=== PATIENT | male | born 1980 | race African-American/Black ===

== ENCOUNTER 2016-12-29 19:25 | Emergency (ER) | payer OTHER ==
[~2016-12-29 19:25] MED LIST: /HALO2TA OR; BENZ5TA PO; COGE1INJ PO; DEPA500T2 OR; DEPA500T2 PO; DEPAKOTE PO; HALDOL DECANOATE IM; HALO10TA4 OR; HALO1TAB29 PO; HALO5TA PO; INVE234I IM; KLON2TAB PO; NEOSSOL TOP; PRIL20CA OR; QUET5TAB PO; RISP3TAB18 PO; SERO1TAB PO; SERO200T OR; TRAZ10TA PO; TRAZ150T OR; TRAZ150T14 PO; TRAZ50TA OR; TRAZ50TA4 PO; cogentin PO; hydroxyzine PO
--- NOTE | 2016-12-29 20:58 | EDDOCDS ---
Physician Documentation [facility] Name: Gabo Bull Age: 36 yrs Sex: Male : 1980 Arrival Date: 12/29/2016 Time: 19:25 Bed TR8 Private MD: NO PRIMARY PHYSICIAN, . Disposition: 12/29/16 20:43 Discharged to Home/Self Care. Impression: Other microscopic hematuria, Constipation. - Condition is Stable. - Discharge Instructions: Constipation, Adult, Hematuria, Adult. - Prescriptions for Colace 100 mg Oral Tablet - take 1 tablet by ORAL route every 12 hours; 14 tablet. Miralax 17 gram/dose - take 17 gram by ORAL route once daily As needed dilute in 8 ounces of water or juice; 1 bottle. - Medication Reconciliation, Local Pharmacy Hours form. - [facility]; When: Call to arrange an appointment; Reason: Recheck today's complaints, Continuance of care. Follow up: [facility]; When: Call to arrange an appointment; Reason: Recheck today's complaints, Continuance of care. - Problem is new. - Symptoms are unchanged. Historical: - Allergies: No known drug Allergies; - Home Meds: 1. benztropine 50 mg (pt states he is unsure but thinks it's 50 mg) Oral 2. trazodone 50 mg Oral tab 1 tab once a day 3. Clonazepam Oral Unknown once a day - PMHx: Schizophrenia; - PSHx: none; - Social history: Smoking status: Patient uses tobacco products, current every day smoker. No barriers to communication noted, The patient speaks fluent Latvian, Speaks appropriately for age, Preferred Language: Latvian. - Family history: Not pertinent. - : The pt / caregiver states he / she is not on anticoagulants. Home medication list is obtained from the patient, Unable to Verify Home Med List with the patient / caregiver. - Exposure Risk Screening:: None identified. Vital Signs: 12/29 19:26 BP 120 / 72; Pulse 96; Resp 16; Temp 97.6(O); Pulse Ox 100% on R/A; Weight 74.84 kg / lr2 164.99 lbs (R); Height 5 ft. 9 in. (175.26 cm) (R); Pain 4/10; 19:26 Body Mass Index 24.37 (74.84 kg, 175.26 cm) lr2 MDM: 19:39 UA Ordered. EDMS 20:24 UA Reviewed. mo1 20:27 GC & Chlamydia Amplification Ordered. EDMS 20:52 Financial registration complete. sharyn Signatures: Dispatcher [employer] EDMing Tatum, RN RN cz Sadie Salinas RN RN lf1 Bam Ordoñez PA PA mo1 Jannet Cisneros MTDD
--- NOTE | 2016-12-29 20:58 | EDDOCDS ---
Nurse's Notes [facility] Name: Gabo Bull Age: 36 yrs Sex: Male : 1980 Arrival Date: 12/29/2016 Time: 19:25 Bed TR8 Private MD: NO PRIMARY PHYSICIAN, . Diagnosis: Other microscopic hematuria;Constipation Presentation: 12/29 19:29 Presenting complaint: Patient states: Pt reports hematuria for 2-3 days with lf1 constipation and bloody stool. Denies pain or other symptoms at this time. Risk factors: the patient reports not having a history of previous torsion. Adult Sepsis Screening: The patient does not have new or worsening altered mentation. Patient's respiratory rate is less than 22. Systolic blood pressure is greater than 100. Patient has a qSOFA score of 0- Negative Sepsis Screen. Suicide/Homicide risk assessment- the patient denies having any suicidal and/or homicidal ideations and does not present with any other emotional, behavioral or mental health complaints. Status: Patient is not a security services manager or dependent. Transition of care: patient was not received from another setting of care. 19:29 Acuity: ARCADIO Level 3 lf1 19:29 Method Of Arrival: Walkin/Carried/Asstd lf1 Triage Assessment: 19:34 General: Appears in no apparent distress, comfortable, Behavior is cooperative. Pain: lf1 Denies pain. HIV screening NA for this visit Offered previously. Neurological: Level of Consciousness is awake, alert, Oriented to person, place, time, Speech is normal. EENT: No deficits noted. Cardiovascular: Chest pain is denied. Respiratory: Respiratory effort is even, unlabored. GI: Reports constipation, bloody stool. : Reports hematuria. Derm: Skin is intact. Injury Description: No known injury. Historical: - Allergies: No known drug Allergies; - Home Meds: 1. benztropine 50 mg (pt states he is unsure but thinks it's 50 mg) Oral 2. trazodone 50 mg Oral tab 1 tab once a day 3. Clonazepam Oral Unknown once a day - PMHx: Schizophrenia; - PSHx: none; - Social history: Smoking status: Patient uses tobacco products, current every day smoker. No barriers to communication noted, The patient speaks fluent Guinean, Speaks appropriately for age, Preferred Language: Guinean. - Family history: Not pertinent. - : The pt / caregiver states he / she is not on anticoagulants. Home medication list is obtained from the patient, Unable to Verify Home Med List with the patient / caregiver. - Exposure Risk Screening:: None identified. Screenin:35 Screening information is obtained from the patient. Fall risk: No risks identified. lf1 Assistance ADL's: requires no assistance with activities of daily living. Abuse/DV Screen: The patient / caregiver reports he/she is: in a living situation that causes fear, pain or injury. Nutritional screening: No deficits noted. Advance Directives: Currently, there is no health care proxy. home support is adequate. Assessment: 20:55 Reassessment: Patient appears in no apparent distress at this time. General: alert male cz with bowel issues. Vital Signs: 19:26 BP 120 / 72; Pulse 96; Resp 16; Temp 97.6(O); Pulse Ox 100% on R/A; Weight 74.84 kg lr2 (R); Height 5 ft. 9 in. (175.26 cm) (R); Pain 4/10; 19:26 Body Mass Index 24.37 (74.84 kg, 175.26 cm) lr2 Vitals: 19:26 Log In Time: December 29, 2016 at 19:25. lr2 ED Course: 19:26 Patient visited by Triny Mercer. lr2 19:26 Patient moved to Waiting lr2 19:28 NO PRIMARY PHYSICIAN, . is Private Physician. lr2 19:28 Patient moved to Pre RCE lr2 19:30 Triage Initiated lf1 19:54 UA Sent. ar3 19:55 Patient visited by Gerda Patel PCA. ar3 20:01 Patient moved to Triage 2 ar3 20:08 Bam Ordoñez PA is PHCP. mo1 20:08 Grayson Del Cid DO is Attending Physician. mo1 20:15 Patient visited by Bam Ordoñez PA. mo1 20:43 [facility] is Referral Physician. mo1 20:43 Charbel Sepulveda is Referral Physician. mo1 20:51 Patient moved to TR2 cz 20:53 GC & Chlamydia Amplification Sent. ar3 20:54 Patient moved to TR8 ar3 20:55 The patient / caregiver is instructed regarding the plan of care and ED course. cz 20:55 No IV's were initiated during this patient's visit. No procedures done that require cz assistance. Order Results: Lab Order: UA; SPEC'M 12/29/16 19:55 Test: APPEARANCE, URINE; Value: CLEAR; Range: CLEAR; Status: F Test: COLOR, URINE; Value: YELLOW; Range: YELLOW; Status: F Test: PH,URINE; Value: 7.0; Range: 5.0-9.0; Units: UNITS; Status: F Test: SPECIFIC GRAVITY URINE AUTO; Value: 1.021; Range: 1.002-1.035; Status: F Test: PROTEIN, URINE AUTO; Value: NEGATIVE; Range: NEGATIVE; Units: mg/dL; Status: F Test: GLUCOSE, URINE (UA) AUTO; Value: NEGATIVE; Range: NEGATIVE; Units: mg/dL; Status: F Test: KETONE, URINE AUTO; Value: NEGATIVE; Range: NEGATIVE; Units: mg/dL; Status: F Test: UROBILINOGEN, URINE AUTO; Value: 2.0; Range: 0.0-2.0; Abnormal: Above high normal; Units: mg/dL; Status: F Test: BILIRUBIN, URINE AUTO; Value: NEGATIVE; Range: NEGATIVE; Status: F Test: NITRITE, URINE AUTO; Value: NEGATIVE; Range: NEGATIVE; Status: F Test: LEUKOCYTE ESTERASE, URINE AUTO; Value: NEGATIVE; Range: NEGATIVE; Status: F Test: BLOOD, URINE BLOOD; Value: NEGATIVE; Range: NEGATIVE; Status: F Test: WBC, URINE AUTO; Value: 0; Range: 0-3; Units: /HPF; Status: F Test: RBC, URINE AUTO; Value: 1; Range: 0-3; Units: /HPF; Status: F Test: BACTERIA, URINE AUTO; Value: 1+; Range: NEGATIVE; Abnormal: Above high normal; Status: F Test: SQUAMOUS EPITHELIAL CELL UR AU; Value: 0; Range: 0-6; Units: /HPF; Status: F Test: MUCUS, URINE; Value: SMALL; Range: NEGATIVE; Status: F Test: HYALINE CAST, URINE AUTO; Value: 0; Range: 0-1; Units: /LPF; Status: F Test: AMORPHOUS SEDIMENT; Value: SMALL; Range: NEGATIVE; Abnormal: Above high normal; Status: F Outcome: 20:43 Discharge ordered by Provider. mo1 20:55 Discharge Assessment: patient administered narcotics - no. The following High Risk cz Discharge criteria are identified: None. Discharged to home ambulatory. Condition: good. No special radiology studies were completed. Property :Personal belongings accompany Pt. 20:57 Patient left the ED. Signatures: Ming De Jesus, RN RN cz Sadie Salinas RN RN lf1 Gerda Patel, JOHN CHROME POLISHER ar3 Bam Ordoñez PA PA mo1 Triny Mercer2 MTDD
--- NOTE | 2016-12-31 21:58 | EDDOCDS ---
Physician Documentation [facility] Name: Gabo Bull Age: 36 yrs Sex: Male : 1980 Arrival Date: 12/29/2016 Time: 19:25 Bed TR8 Private MD: NO PRIMARY PHYSICIAN, . Disposition: 12/29/16 20:43 Discharged to Home/Self Care. Impression: Other microscopic hematuria, Constipation. - Condition is Stable. - Discharge Instructions: Constipation, Adult, Hematuria, Adult. - Prescriptions for Colace 100 mg Oral Tablet - take 1 tablet by ORAL route every 12 hours; 14 tablet. Miralax 17 gram/dose - take 17 gram by ORAL route once daily As needed dilute in 8 ounces of water or juice; 1 bottle. - Medication Reconciliation, Local Pharmacy Hours form. - [facility]; When: Call to arrange an appointment; Reason: Recheck today's complaints, Continuance of care. Follow up: [facility]; When: Call to arrange an appointment; Reason: Recheck today's complaints, Continuance of care. - Problem is new. - Symptoms are unchanged. Historical: - Allergies: No known drug Allergies; - Home Meds: 1. benztropine 50 mg (pt states he is unsure but thinks it's 50 mg) Oral 2. trazodone 50 mg Oral tab 1 tab once a day 3. Clonazepam Oral Unknown once a day - PMHx: Schizophrenia; - PSHx: none; - Social history: Smoking status: Patient uses tobacco products, current every day smoker. No barriers to communication noted, The patient speaks fluent Welsh, Speaks appropriately for age, Preferred Language: Welsh. - Family history: Not pertinent. - : The pt / caregiver states he / she is not on anticoagulants. Home medication list is obtained from the patient, Unable to Verify Home Med List with the patient / caregiver. - Exposure Risk Screening:: None identified. Vital Signs: 12/29 19:26 BP 120 / 72; Pulse 96; Resp 16; Temp 97.6(O); Pulse Ox 100% on R/A; Weight 74.84 kg / lr2 164.99 lbs (R); Height 5 ft. 9 in. (175.26 cm) (R); Pain 4/10; 19:26 Body Mass Index 24.37 (74.84 kg, 175.26 cm) lr2 MDM: 19:39 UA Ordered. EDMS 20:24 UA Reviewed. mo1 20:27 GC & Chlamydia Amplification Ordered. EDMS 20:52 Financial registration complete. gjb 20:59 [facility] Payment Agreement was scanned into [employer] and attached to record. sharyn Signatures: Dispatcher [employer] EDMing Tatum, CONNOR RN cz Sadie Salinas RN RN lf1 Bam Ordoñez PA PA mo1 Jannet Cisneros The chart was reviewed and I authenticate all verbal orders and agree with the evaluation and treatment provided.Attachments: 20:59 [facility] [place] gjb Chart Complete MTDD
--- NOTE | 2016-12-31 21:58 | EDDOCDS ---
Physician Documentation [facility] Name: Gabo Bull Age: 36 yrs Sex: Male : 1980 Arrival Date: 12/29/2016 Time: 19:25 Bed TR8 Private MD: NO PRIMARY PHYSICIAN, . Disposition: 12/29/16 20:43 Discharged to Home/Self Care. Impression: Other microscopic hematuria, Constipation. - Condition is Stable. - Discharge Instructions: Constipation, Adult, Hematuria, Adult. - Prescriptions for Colace 100 mg Oral Tablet - take 1 tablet by ORAL route every 12 hours; 14 tablet. Miralax 17 gram/dose - take 17 gram by ORAL route once daily As needed dilute in 8 ounces of water or juice; 1 bottle. - Medication Reconciliation, Local Pharmacy Hours form. - [facility]; When: Call to arrange an appointment; Reason: Recheck today's complaints, Continuance of care. Follow up: [facility]; When: Call to arrange an appointment; Reason: Recheck today's complaints, Continuance of care. - Problem is new. - Symptoms are unchanged. Historical: - Allergies: No known drug Allergies; - Home Meds: 1. benztropine 50 mg (pt states he is unsure but thinks it's 50 mg) Oral 2. trazodone 50 mg Oral tab 1 tab once a day 3. Clonazepam Oral Unknown once a day - PMHx: Schizophrenia; - PSHx: none; - Social history: Smoking status: Patient uses tobacco products, current every day smoker. No barriers to communication noted, The patient speaks fluent French, Speaks appropriately for age, Preferred Language: French. - Family history: Not pertinent. - : The pt / caregiver states he / she is not on anticoagulants. Home medication list is obtained from the patient, Unable to Verify Home Med List with the patient / caregiver. - Exposure Risk Screening:: None identified. Vital Signs: 12/29 19:26 BP 120 / 72; Pulse 96; Resp 16; Temp 97.6(O); Pulse Ox 100% on R/A; Weight 74.84 kg / lr2 164.99 lbs (R); Height 5 ft. 9 in. (175.26 cm) (R); Pain 4/10; 19:26 Body Mass Index 24.37 (74.84 kg, 175.26 cm) lr2 MDM: 19:39 UA Ordered. EDMS 20:24 UA Reviewed. mo1 20:27 GC & Chlamydia Amplification Ordered. EDMS 20:52 Financial registration complete. gjb 20:59 [facility] Payment Agreement was scanned into [employer] and attached to record. sharyn Signatures: Dispatcher [employer] EDMing Tatum, CONNOR RN cz Sadie Salinas RN RN lf1 Bam Ordoñez PA PA mo1 Jannet Cisneros The chart was reviewed and I authenticate all verbal orders and agree with the evaluation and treatment provided.Attachments: 20:59 [facility] [place] gjb Chart Complete MTDD
--- NOTE | 2016-12-31 21:58 | EDDOCDS ---
Nurse's Notes [facility] Name: Gabo Bull Age: 36 yrs Sex: Male : 1980 Arrival Date: 12/29/2016 Time: 19:25 Bed TR8 Private MD: NO PRIMARY PHYSICIAN, . Diagnosis: Other microscopic hematuria;Constipation Presentation: 12/29 19:29 Presenting complaint: Patient states: Pt reports hematuria for 2-3 days with lf1 constipation and bloody stool. Denies pain or other symptoms at this time. Risk factors: the patient reports not having a history of previous torsion. Adult Sepsis Screening: The patient does not have new or worsening altered mentation. Patient's respiratory rate is less than 22. Systolic blood pressure is greater than 100. Patient has a qSOFA score of 0- Negative Sepsis Screen. Suicide/Homicide risk assessment- the patient denies having any suicidal and/or homicidal ideations and does not present with any other emotional, behavioral or mental health complaints. Status: Patient is not a hydraulic press servicer or dependent. Transition of care: patient was not received from another setting of care. 19:29 Acuity: ARCADIO Level 3 lf1 19:29 Method Of Arrival: Walkin/Carried/Asstd lf1 Triage Assessment: 19:34 General: Appears in no apparent distress, comfortable, Behavior is cooperative. Pain: lf1 Denies pain. HIV screening NA for this visit Offered previously. Neurological: Level of Consciousness is awake, alert, Oriented to person, place, time, Speech is normal. EENT: No deficits noted. Cardiovascular: Chest pain is denied. Respiratory: Respiratory effort is even, unlabored. GI: Reports constipation, bloody stool. : Reports hematuria. Derm: Skin is intact. Injury Description: No known injury. Historical: - Allergies: No known drug Allergies; - Home Meds: 1. benztropine 50 mg (pt states he is unsure but thinks it's 50 mg) Oral 2. trazodone 50 mg Oral tab 1 tab once a day 3. Clonazepam Oral Unknown once a day - PMHx: Schizophrenia; - PSHx: none; - Social history: Smoking status: Patient uses tobacco products, current every day smoker. No barriers to communication noted, The patient speaks fluent Spanish, Speaks appropriately for age, Preferred Language: Spanish. - Family history: Not pertinent. - : The pt / caregiver states he / she is not on anticoagulants. Home medication list is obtained from the patient, Unable to Verify Home Med List with the patient / caregiver. - Exposure Risk Screening:: None identified. Screenin:35 Screening information is obtained from the patient. Fall risk: No risks identified. lf1 Assistance ADL's: requires no assistance with activities of daily living. Abuse/DV Screen: The patient / caregiver reports he/she is: in a living situation that causes fear, pain or injury. Nutritional screening: No deficits noted. Advance Directives: Currently, there is no health care proxy. home support is adequate. Assessment: 20:55 Reassessment: Patient appears in no apparent distress at this time. General: alert male cz with bowel issues. Vital Signs: 19:26 BP 120 / 72; Pulse 96; Resp 16; Temp 97.6(O); Pulse Ox 100% on R/A; Weight 74.84 kg lr2 (R); Height 5 ft. 9 in. (175.26 cm) (R); Pain 4/10; 19:26 Body Mass Index 24.37 (74.84 kg, 175.26 cm) lr2 Vitals: 19:26 Log In Time: December 29, 2016 at 19:25. lr2 ED Course: 19:26 Patient visited by Triny Mercer. lr2 19:26 Patient moved to Waiting lr2 19:28 NO PRIMARY PHYSICIAN, . is Private Physician. lr2 19:28 Patient moved to Pre RCE lr2 19:30 Triage Initiated lf1 19:54 UA Sent. ar3 19:55 Patient visited by Gerda Patel PCA. ar3 20:01 Patient moved to Triage 2 ar3 20:08 Bam Ordoñez PA is PHCP. mo1 20:08 Grayson Del Cid DO is Attending Physician. mo1 20:15 Patient visited by Bam Ordoñez PA. mo1 20:43 [facility] is Referral Physician. mo1 20:43 Charbel Sepulveda is Referral Physician. mo1 20:51 Patient moved to TR2 cz 20:53 GC & Chlamydia Amplification Sent. ar3 20:54 Patient moved to TR8 ar3 20:55 The patient / caregiver is instructed regarding the plan of care and ED course. cz 20:55 No IV's were initiated during this patient's visit. No procedures done that require cz assistance. 20:59 [facility] [place] Payment Agreement was scanned into [employer] and attached to record. gjb Order Results: Lab Order: UA; SPEC'M 12/29/16 19:55 Test: APPEARANCE, URINE; Value: CLEAR; Range: CLEAR; Status: F Test: COLOR, URINE; Value: YELLOW; Range: YELLOW; Status: F Test: PH,URINE; Value: 7.0; Range: 5.0-9.0; Units: UNITS; Status: F Test: SPECIFIC GRAVITY URINE AUTO; Value: 1.021; Range: 1.002-1.035; Status: F Test: PROTEIN, URINE AUTO; Value: NEGATIVE; Range: NEGATIVE; Units: mg/dL; Status: F Test: GLUCOSE, URINE (UA) AUTO; Value: NEGATIVE; Range: NEGATIVE; Units: mg/dL; Status: F Test: KETONE, URINE AUTO; Value: NEGATIVE; Range: NEGATIVE; Units: mg/dL; Status: F Test: UROBILINOGEN, URINE AUTO; Value: 2.0; Range: 0.0-2.0; Abnormal: Above high normal; Units: mg/dL; Status: F Test: BILIRUBIN, URINE AUTO; Value: NEGATIVE; Range: NEGATIVE; Status: F Test: NITRITE, URINE AUTO; Value: NEGATIVE; Range: NEGATIVE; Status: F Test: LEUKOCYTE ESTERASE, URINE AUTO; Value: NEGATIVE; Range: NEGATIVE; Status: F Test: BLOOD, URINE BLOOD; Value: NEGATIVE; Range: NEGATIVE; Status: F Test: WBC, URINE AUTO; Value: 0; Range: 0-3; Units: /HPF; Status: F Test: RBC, URINE AUTO; Value: 1; Range: 0-3; Units: /HPF; Status: F Test: BACTERIA, URINE AUTO; Value: 1+; Range: NEGATIVE; Abnormal: Above high normal; Status: F Test: SQUAMOUS EPITHELIAL CELL UR AU; Value: 0; Range: 0-6; Units: /HPF; Status: F Test: MUCUS, URINE; Value: SMALL; Range: NEGATIVE; Status: F Test: HYALINE CAST, URINE AUTO; Value: 0; Range: 0-1; Units: /LPF; Status: F Test: AMORPHOUS SEDIMENT; Value: SMALL; Range: NEGATIVE; Abnormal: Above high normal; Status: F Lab Order: GC & Chlamydia Amplification; SPEC'M 12/29/16 19:55 Test: CHLAMYDIA DNA AMPLIFICATION; Value: NEGATIVE; Range: NEGATIVE; Status: F Test: GC DNA AMPLIFICATION; Value: NEGATIVE; Range: NEGATIVE; Status: F Outcome: 20:43 Discharge ordered by Provider. mo1 20:55 Discharge Assessment: patient administered narcotics - no. The following High Risk cz Discharge criteria are identified: None. Discharged to home ambulatory. Condition: good. No special radiology studies were completed. Property :Personal belongings accompany Pt. 20:57 Patient left the ED. cz Signatures: Ming De Jesus, RN RN cz Sadie SalinasRN RN lf1 Gerda Patel, CERTIFIED HISTOLOGIC TECHNICIAN CERTIFIED HISTOLOGIC TECHNICIAN ar3 Bam Ordoñez PA PA mo1 Jannet Cisneros Laura lr2 Chart Complete FOSTER
== END 2016-12-29 20:57 | disposition home or self-care (01) ==
LOC: M ED 19:25
DX: R31.29 Other microscopic hematuria (principal); K59.00 Constipation, unspecified; F20.9 Schizophrenia, unspecified; F17.210 Nicotine dependence, cigarettes, uncomplicated; Z79.899 Other long term (current) drug therapy

== ENCOUNTER 2017-01-10 07:34 | Inpatient (IN) | payer OTHER ==
[~2017-01-10] VITALS: Ht 175.3 cm; Wt 74.3 kg
[2017-01-10] MEDS: UNRESOLVED CLARIFICATION ENTRY XX SCH (00:01)
[2017-01-10] MEDS ORDERED: INVE234I IM (07:47)
[2017-01-10] MEDS ORDERED: BENZ5TA PO (07:47)
[2017-01-10] MEDS ORDERED: GABA300C3 PO (07:47)
[2017-01-10 08:49] LABS: MEAN CORPUSCULAR HEMOGLOBIN 29.4 pg (27.0-33.0); MEAN CORPUSCULAR HGB CONC 32.7 g/dl (32.0-36.5); MEAN CORPUSCULAR VOLUME 90.1 fl (80.0-96.0); RED CELL DISTRIBUTION WIDTH 12.9 % (11.5-14.5); WHITE BLOOD COUNT 8.8 K/mm3 (4.0-10.0)
[2017-01-10] MEDS: NICOTINE 21MG/24HR 1 EA TRANSDERMAL TD SCH (09:00)
[2017-01-10 09:04] LABS: METHADONE URINE NEGATIVE (NEGATIVE)
[2017-01-10 09:14] LABS: ALBUMIN 3.8 GM/DL (3.2-5.2); ALBUMIN/GLOBULIN RATIO 1.06 (1.00-1.93); ALKALINE PHOSPHATASE 65 U/L (45-117); ALT/SGPT 23 U/L (12-78); ANION GAP 9 MEQ/L (8-16); AST/SGOT 25 U/L (15-37); BILIRUBIN,DIRECT < 0.1 MG/DL (0.0-0.2); BILIRUBIN,TOTAL 0.3 MG/DL (0.2-1.0); BLOOD UREA NITROGEN 11 MG/DL (7-18); CALCIUM LEVEL 8.8 MG/DL (8.5-10.1); CARBON DIOXIDE LEVEL 26 MEQ/L (21-32); CHLORIDE LEVEL 109 MEQ/L (98-107); CREATININE FOR GFR 1.07 MG/DL (0.70-1.30); GLOMERULAR FILTRATION RATE > 60.0 (>60); GLUCOSE, FASTING 79 MG/DL (70-105); POTASSIUM SERUM 4.1 MEQ/L (3.5-5.1); SODIUM LEVEL 144 MEQ/L (136-145); TOTAL PROTEIN 7.4 GM/DL (6.4-8.2)
[2017-01-10] MEDS ORDERED: MIRA33504 PO (10:50)
[2017-01-10] MEDS ORDERED: TRAZ150T14 PO (10:50)
[2017-01-10 12:40] VITALS: BP 114/88
[2017-01-10] MEDS ORDERED: MAALOX 30 ML SUSP *UDC PO PRN (14:15)
[2017-01-10] MEDS ORDERED: traZODone 50 MG TAB PO PRN (14:15)
[2017-01-10] MEDS ORDERED: MIRALAX *UNIT DOSE* 17GM PACKET PO PRN (14:15)
[2017-01-10] MEDS ORDERED: LORazepam 1 MG TAB PO PRN (14:15)
[2017-01-10 18:00] VITALS: BP 124/75
[2017-01-11] MEDS: UNRESOLVED CLARIFICATION ENTRY XX SCH (00:01)
[2017-01-11] MEDS: NICOTINE 21MG/24HR 1 EA TRANSDERMAL TD SCH (08:45)
[2017-01-11 18:00] VITALS: BP 114/69
[2017-01-11] MEDS ORDERED: risperiDONE 1 MG TAB PO PRN (19:45)
[2017-01-11] MEDS ORDERED: risperiDONE 2 MG TAB PO ONE (21:00)
[2017-01-12] MEDS: UNRESOLVED CLARIFICATION ENTRY XX SCH (00:01)
[2017-01-12] MEDS: NICOTINE 21MG/24HR 1 EA TRANSDERMAL TD SCH (08:49)
[2017-01-12] MEDS ORDERED: INFLUENZA QUADRIVALENT PF VACCINE 0.5ML SYRINGE/VIAL (90686) IM ONE (09:00)
--- NOTE | 2017-01-12 17:26 | IPNPDOC ---
[facility] Progress Note Progress Note DATE OF SERVICE: 01/12/17 HISTORY: The patient met with Martha's room. He described that he was concerned about the shot of vague as he felt as though this would "lower his bone marrow" after some empathic listening and attempts to reason the patient he described that he was amenable to continuing the medicine. He stated that he was plagued by auditory hallucinations and had difficulty feeling comfortable around others. He had been no stay be in the milieu walking around but was generally isolative otherwise. The nursing staff and social worker masters is noted that the patient had a fairly filthy room over the weekend and had various pieces of food and copy strewn about. However with prompting he did clean his room and demonstrated better hygiene concerns for this patient had been long and chronic, as he has demonstrated severe paranoid ideation the past with violent outbursts. The patient has had difficulty with maintaining compliance with outpatient regimens and suffers from his paranoid ideations and outpatient is social supports have been drained away from him and he finds himself with little support as an outpatient. VITAL SIGNS: See below. NEW TEST RESULTS: None. CURRENT MEDICATIONS: See below. MENTAL STATUS EXAMINATION: Patient is a 36-year old male, who is pleasant with poor to fair hygiene, whom is tall and slender. Speech: Is normal in rate volume and articulation, however the patient only speaks when spoken to. Language skills are intact Thought processes including: Goal directed Thought content: Illogical at times. Abstract reasoning, and computation: Impaired, primarily concrete thinking. Description of associations: Loose. Description of abnormal or psychotic thoughts: Endorses auditory hallucinations and bizarre ideation that his bone marrow will be usurped if he continues use the medications. He does not overtly answer whether he has any suicidal or homicidal ideation but makes no threats towards himself or others on the mitchell Judgment: Very limited. Insight: Very limited Orientation to time, place and person Recent and remote memory: 88, short-term and long-term memory appears generally intact Attention span and concentration: Poor Language: Normal Fund of knowledge: Adequate. Mood: "Just fine sir". Affect: Flat. DIAGNOSES: 1. Unspecified psychosis History of schizoaffective disorder. ASSESSMENT: A 36-year-old man with a history of schizophrenia versus schizoaffective disorder who presents with psychosis after noncompliance with his medicines. He has been resistant to taking his in vague three-month shot. However, he appears amenable at this time to taking. He is due within 2 weeks of having his 819 mg Depo shot. MANAGEMENT PLAN: 1 continue when necessary risperidone 2. Will attempt to give patient Depo paliperidone tomorrow if he is still amenable 3. Patient will require if further inpatient stay to address his disabling psychosis. He is currently disabled state limits himself to being a danger to himself and others. He has a history of violent outbursts and is in a state in which he would be unable to care for himself and likely pose a danger to himself in the community TIME SPENT: 15 minutes. Vital Signs Vital Signs Date Time Temp Pulse Resp B/P Pulse Ox O2 Delivery O2 Flow Rate FiO2 01/11/17 18:00 96.3 89 18 114/69 01/10/17 12:40 97 01/10/17 12:40 Room Air Current Medications Current Medications Acetaminophen (Tylenol Tab) 650 mg Q6HP PRN PO HEADACHE or DISCOMFORT; Start at 14:15; Stop 02/09/17 at 14:14 Al Hydrox/Mg Hydrox/Simethicone (Mylanta) 30 ml Q4HP PRN PO HEARTBURN/ INDIGESTION; Start 01/10/17 at 14:15; Stop 02/09/17 at 14:14 Home Med (Med Rec Complete!) ASDIRECTED XX ; Start 01/10/17 at 11:00; Stop 09/18 at 11:00; Status DC Lorazepam (Ativan) 1 mg Q4HP PRN PO ANXIETY/AGITATION; Start 01/10/17 at 14:15 ; Stop 01/17/17 at 14:14 Miscellaneous (Unresolved Clarification Entry) SEE LABEL COMMENTS UNRESOLVED XX ; Start 01/10/17 at 00:01; Stop 02/09/17 at 00:00 Nicotine (Nicoderm Cq 21mg) 1 patch DAILY TD Last administered on 01/12/17t 08: 49; Start 01/10/17 at 09:00; Stop 02/09/17 at 08:59 Polyethylene Glycol (Miralax) 1 pkt DAILYPRN PRN PO CONSTIPATION; Start at 14:15; Stop 02/09/17 at 14:14 Risperidone (RisperDAL) 1 mg Q4HP PRN PO ANXIETY/AGITATION; Start 01/11/17 at 19:45; Stop 02/10/17 at 19:44 Trazodone HCl (Desyrel) 150 mg QHSP PRN PO INSOMNIA; Start 01/10/17 at 14:15; Stop 02/09/17 at 14:14 Allergies Coded Allergies: PERFUMES (Verified Allergy, Unknown, 01/10/17) GME ATTESTATION My preceptor for this patient encounter was fully available. As needed, all aspects of the patient interview, examination, medical decision making process, and medical care plan development were reviewed and approved by the preceptor. Preceptor is aware and concurs with the plan as stated in the body of this note and will attest to such by his/her cosignature. RENEE MARTINES DO Jan 12, 2017 17:26
[2017-01-12 18:00] VITALS: BP 113/61
--- NOTE | 2017-01-12 22:12 | HPE ---
DATE OF ADMISSION: 01/10/2017 Please refer to psychiatric history and evaluation for further details on this admission. This examination and history are intended for medical issues, which may need treatment, followup, or consult on this 36-year-old male. ALLERGIES: No known drug allergies. He is allergic to perfumes. PAST MEDICAL HISTORY: 1. Schizophrenia. 2. Substance abuse. PAST SURGICAL HISTORY: None. SOCIAL HISTORY: He is single. He is unemployed. He drinks about six drinks every Thursday. Illicit drug use: He is currently using marijuana and occasionally smoking crack cocaine. 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 He states he has not had those two drugs since September 2006. FAMILY HISTORY: Noncontributory. HOME MEDICATIONS: - Cogentin 0.5 mg by mouth twice a day - gabapentin 300 mg by mouth three times a day - Invega Sustenna 234 mg/1.5 mL by injection - MiraLax 17 grams by mouth daily as needed for constipation - trazodone 100 mg by mouth at bedtime LABORATORY STUDIES: CBC was normal. Sodium 144, potassium 4.1, chloride 109, CO2 of 26, BUN 11, creatinine 1.07. Urine was positive for cannabinoids. A 10-systems review was done. Patient was unremarkable. Patient had no complaints. PHYSICAL EXAMINATION: A 36-year-old cooperative male in no acute distress. Height 69 inches, weight 70.3 kg. Blood pressure 114/88, pulse 83, respirations 20, temperature 96. Patient is alert and oriented times three. Pupils equal and reactive to light. Extraocular movements (EOMs) intact. Cornea and sclerae are clear. Conjunctivae were normal. No facial asymmetry. Pharynx, tongue, and gums pink and moist. Tongue is midline. Neck is supple without lymphadenopathy. No thyromegaly. No goiter. Chest clear to auscultation without wheeze or retraction. Heart is regular. Abdomen benign. Bowel sounds positive. Genitourinary/rectal not done. Extremities show equal strength, full range of motion. No cyanosis, clubbing, or edema. Peripheral pulses equal and palpable bilaterally. Skin is warm and dry. IMPRESSION AND PLAN: Psychiatric plan per psychiatric. EKG is on file, sinus rhythm. Rate is 77. Done 02/05/2016. No acute medical issues.
[2017-01-13] MEDS: UNRESOLVED CLARIFICATION ENTRY XX SCH (00:01)
[2017-01-13 06:00] VITALS: BP 123/76
[2017-01-13] MEDS: NICOTINE 21MG/24HR 1 EA TRANSDERMAL TD SCH (08:44)
--- NOTE | 2017-01-13 17:15 | IPNPDOC ---
[facility] Progress Note Progress Note DATE OF SERVICE: 01/13/17 HISTORY: The patient met with. He describes that he is amenable to taking the intake three-month depot shot. He remains somewhat bizarre and reclusive to his room. He is observed during the process group to come in and out of the room shuffling papers. He has been noted to be drawn for quite some time and various geometric designs. The nursing staff continue to note that he is somewhat bizarre though generally pleasant. He hasn't had any episodes of aggression or agitation overnight. VITAL SIGNS: See below. NEW TEST RESULTS: None. CURRENT MEDICATIONS: See below. MENTAL STATUS EXAMINATION: Patient is a 36-year old male, who is pleasant cooperative and generally well kempt,. Speech: Is normal in rate and volume but appears to be generally minimal in production. Language skills are intact. Thought processes including: Impoverished. Thought content: illogical. Abstract reasoning, and computation: Impaired. Description of associations: Loose. Description of abnormal or psychotic thoughts: Does not appear to be overtly responding to internal stimuli. Judgment: Limited. Insight: Limited. Orientation to time place and person. Recent and remote memory: Immediate, short-term and long-term memory appears grossly intact. Attention span and concentration: Good. Language: Normal. Fund of knowledge: poor Mood: "Fine". Affect: Flat. DIAGNOSES: 1. Unspecified psychosis. 2. . 3. . ASSESSMENT: A 36-year-old man with a long history of schizophrenia versus schizoaffective disorder presents in a psychotic state. He has had difficulty with outpatient treatment compliance. He last received his Invega depot shot in October 2015 he would be currently due for a repeat depot shot at the end of this month. Reportedly his dose of an paliperidone 3 month Depo is 819 mg MANAGEMENT PLAN: 1. Continue when necessary risperidone 2. Will call and confirm patient's three-month Depo shot dosage and then repeat dosages patient is currently amenable 3. Patient will continue to need inpatient stay in order to address his severely disabling psychosis. He currently poses a danger to himself due to his gravely disabled state. TIME SPENT: 10 minutes. Vital Signs Vital Signs Date Time Temp Pulse Resp B/P Pulse Ox O2 Delivery O2 Flow Rate FiO2 01/13/17 06:00 96.8 108 16 123/76 01/10/17 12:40 97 01/10/17 12:40 Room Air Current Medications Current Medications Acetaminophen (Tylenol Tab) 650 mg Q6HP PRN PO HEADACHE or DISCOMFORT; Start at 14:15; Stop 02/09/17 at 14:14 Al Hydrox/Mg Hydrox/Simethicone (Mylanta) 30 ml Q4HP PRN PO HEARTBURN/ INDIGESTION; Start 01/10/17 at 14:15; Stop 02/09/17 at 14:14 Home Med (Med Rec Complete!) ASDIRECTED XX ; Start 01/10/17 at 11:00; Stop 09/18 at 11:00; Status DC Lorazepam (Ativan) 1 mg Q4HP PRN PO ANXIETY/AGITATION; Start 01/10/17 at 14:15 ; Stop 01/17/17 at 14:14 Miscellaneous (Unresolved Clarification Entry) SEE LABEL COMMENTS UNRESOLVED XX ; Start 01/10/17 at 00:01; Stop 02/09/17 at 00:00 Nicotine (Nicoderm Cq 21mg) 1 patch DAILY TD Last administered on 01/13/17t 08: 44; Start 01/10/17 at 09:00; Stop 02/09/17 at 08:59 Polyethylene Glycol (Miralax) 1 pkt DAILYPRN PRN PO CONSTIPATION; Start at 14:15; Stop 02/09/17 at 14:14 Risperidone (RisperDAL) 1 mg Q4HP PRN PO ANXIETY/AGITATION Last administered on 01/13/17t 08:45; Start 01/11/17 at 19:45; Stop 02/10/17 at 19:44 Trazodone HCl (Desyrel) 150 mg QHSP PRN PO INSOMNIA; Start 01/10/17 at 14:15; Stop 02/09/17 at 14:14 Allergies Coded Allergies: PERFUMES (Verified Allergy, Unknown, 01/10/17) GME ATTESTATION My preceptor for this patient encounter was fully available. As needed, all aspects of the patient interview, examination, medical decision making process, and medical care plan development were reviewed and approved by the preceptor. Preceptor is aware and concurs with the plan as stated in the body of this note and will attest to such by his/her cosignature. RENEE MARITNES DO Jan 13, 2017 17:14
[2017-01-13 18:00] VITALS: BP 109/64
[2017-01-14 06:00] VITALS: BP 137/71
[2017-01-14] MEDS: NICOTINE 21MG/24HR 1 EA TRANSDERMAL TD SCH (08:44)
[2017-01-14] MEDS: ACETAMINOPHEN TAB 650MG DOSE (2X325MG) PO PRN ×2 (11:11→19:49)
[2017-01-14] MEDS ORDERED: NON-FORMULARY 1 EA EA IM ONE (15:30)
[2017-01-14 18:00] VITALS: BP 111/61
--- NOTE | 2017-01-14 22:00 | IPNPDOC ---
[facility] Progress Note Progress Note DATE OF SERVICE: 01/14/17 HISTORY: The patient is met with today in his room. He appears to be more interactive and bright. He has been socializing with other peers well on the mitchell and improved greatly from his paranoid and somewhat violent state he reportedly presented in. The patient stated that he was feeling better and was focused on drawing and interacting with others. He is due for his invega trinza, however, it is not formulary here. However, due to the great efforts of he was able to have an appointment arranged for tomorrow to have it given at the [facility] he attends (whom have been giving it to him as an outpatient). He otherwise had no issues overnight. VITAL SIGNS: See below. NEW TEST RESULTS: none CURRENT MEDICATIONS: See below. MENTAL STATUS EXAMINATION: Patient is a 36-year old male, who is pleasant, cooperative, well kempt. Speech: Is normal in rate, volume, and articulation, and is coherent and spontaneous. Language skills are intact. Thought processes including: goal-directed Thought content: coherent . Abstract reasoning, and computation: intact. Description of associations: loose Description of abnormal or psychotic thoughts: denies any SI, HI, AH or VH. Doesn't appear to be responding to internal stimuli. Judgment: limited Insight: limited Orientation to time, place and person. Recent and remote memory: Immediate, short-term and long-term memory is intact. Attention span and concentration: good Language: Normal. Fund of knowledge: poor Mood:"great". Affect: euthymic and constricted DIAGNOSES: 1. Unspecified psychosis 2. History of schizophrenia ASSESSMENT: 36 year old man with a history of non-adherence to medicines and appointments for treatment of schizophrenia, presented in a paranoid and aggressive state has stabilized with some risperidone after he got his last three-month shot of invega trinza in oct 2015. He appears to be improving and at reported baseline. MANAGEMENT PLAN: 1.PRN risperidone 2. Discharge tomorrow to get depo from providers at [facility] TIME SPENT: 15 minutes. Vital Signs Vital Signs Date Time Temp Pulse Resp B/P Pulse Ox O2 Delivery O2 Flow Rate FiO2 01/14/17 18:00 97.8 85 16 111/61 01/10/17 12:40 97 01/10/17 12:40 Room Air Current Medications Current Medications Acetaminophen (Tylenol Tab) 650 mg Q6HP PRN PO HEADACHE or DISCOMFORT Last administered on 01/14/17 19:49; Start 01/10/17 at 14:15; Stop 02/09/17 at 14:14 Al Hydrox/Mg Hydrox/Simethicone (Mylanta) 30 ml Q4HP PRN PO HEARTBURN/ INDIGESTION; Start 01/10/17 at 14:15; Stop 02/09/17 at 14:14 Home Med (Med Rec Complete!) ASDIRECTED XX ; Start 01/10/17 at 11:00; Stop 09/18 at 11:00; Status DC Lorazepam (Ativan) 1 mg Q4HP PRN PO ANXIETY/AGITATION; Start 01/10/17 at 14:15 ; Stop 01/17/17 at 14:14 Miscellaneous (Unresolved Clarification Entry) SEE LABEL COMMENTS UNRESOLVED XX ; Start 01/10/17 at 00:01; Stop 01/13/17 at 23:20; Status DC Nicotine (Nicoderm Cq 21mg) 1 patch DAILY TD Last administered on 01/14/17 08: 44; Start 01/10/17 at 09:00; Stop 02/09/17 at 08:59 Polyethylene Glycol (Miralax) 1 pkt DAILYPRN PRN PO CONSTIPATION; Start at 14:15; Stop 02/09/17 at 14:14 Risperidone (RisperDAL) 1 mg Q4HP PRN PO ANXIETY/AGITATION Last administered on 01/13/17 08:45; Start 01/11/17 at 19:45; Stop 02/10/17 at 19:44 Trazodone HCl (Desyrel) 150 mg QHSP PRN PO INSOMNIA; Start 01/10/17 at 14:15; Stop 02/09/17 at 14:14 Allergies Coded Allergies: PERFUMES (Verified Allergy, Unknown, 01/10/17) GME ATTESTATION My preceptor for this patient encounter was fully available. As needed, all aspects of the patient interview, examination, medical decision making process, and medical care plan development were reviewed and approved by the preceptor. Preceptor is aware and concurs with the plan as stated in the body of this note and will attest to such by his/her cosignature. RENEE MARTINES DO Jan 14, 2017 22:00
[2017-01-15] MEDS: NICOTINE 21MG/24HR 1 EA TRANSDERMAL TD SCH (08:20)
[2017-01-15] MEDS ORDERED: NICO21PAT TD (08:59)
[2017-01-15] MEDS ORDERED: ATIV1TAB7 PO ×3 (09:40→10:00)
[2017-01-15] MEDS ORDERED: RISP1TAB41 PO (09:40)
[2017-01-15] MEDS ORDERED: INVE1.75 IM (10:38)
--- NOTE | 2017-01-16 07:08 | DS.PDOC ---
[facility] Discharge Summary Discharge Summary DATE OF ADMISSION: Jan 10, 2017 at 10:24 DATE OF DISCHARGE: Jan 15, 2017 at 11:45 DISCHARGE DIAGNOSES: 1. Unspecified psychosis. 2. History of schizophrenia versus schizoaffective disorder. 3. Paranoia. REASON FOR ADMISSION: The patient was admitted due to increased paranoia and aggressive behavior. He presented voluntarily for treatment. He had a difficult experience being compliant with outpatient psychotropic medications and had recently received a Invega trinza October 2015. CONSULTANTS INVOLVED: None TREATMENT AND PROGRESS ON THE UNIT : The patient was admitted to the unit and started on risperidone as this was believed to augment his Invega Depo shot. He improved somewhat over the span of his admission. Eventually his risperidone was changed to a when necessary medication with when necessary Ativan for agitation. He eventually became more stable as he approached his due date for his next paliperidone Depo. He was noted to be fairly social and milieu by the end of his discharge. He was bright and euthymic without any episodes of paranoia or agitation. He was noted to ask for case management services just after his discharge. Due to his strain so support system there was no family meeting as the patient has few supports in the community. Difficulty planning for the patient's Depo shot was not available on formulary. Arrangements were made with his outpatient community clinic to give him his next Depo before his due in 2 weeks. The patient was amenable to this and agreed to follow-up. DISCHARGE ASSESSMENT: 36-year-old man with a long history of schizophrenia versus schizoaffective disorder who presents in a paranoid and psychotic state. He has had questionable compliance throughout his treatment and is primarily subsisted on a 3 month episode of paliperidone. He improved greatly with a small augmentation of risperidone orally while on the mitchell. This could reflect suboptimal serum levels and consideration could be made for an increased dose of paliperidone as an outpatient. His compliance with oral medications historically has been very poor. MENTAL STATUS EXAMINATION ON DISCHARGE: Patient is a 36-year old male, who is pleasant, cooperative a good hygiene,. Speech is spontaneous and fluid. Language skills are intact. Thought processes including: Linear and logical. Thought content: Future oriented towards returning home to mother. Abstract reasoning, and computation: Intact. Description of associations: Intact Description of abnormal or psychotic thoughts: Denies any suicidal, homicidal ideation. Denies any auditory or visual hallucinations. Does not appear to be responding to internal stimuli. Does not endorse any bizarre or paranoid ideation.. Judgment: Limited but at baseline. Insight: Limited but at baseline. Orientation to alert and oriented 3. Recent and remote memory: Grossly intact. Attention span and concentration: Good. Language: Normal. Fund of knowledge: Adequate. Mood: "Much better sir". Affect: Euthymic with a full range, perhaps slightly elevated. MEDICATIONS ON DISCHARGE: -Risperidone when necessary for agitation and paranoia. -Ativan when necessary for agitation. -Paliperidone Depo (trinza) for psychosis. PLAN/FOLLOWUP ARRANGEMENTS: The patient was discharged to an appointment with his community clinic. They agreed to give the patient his Depo paliperidone assumes they're able to. The patient agreed to follow up with his appointments regularly. The amount of time spent in the coordination of care for this patient was approximately 30 minutes. Medications Scheduled (Invega Trinza) 819 Mg/2.625 Ml Inj 819 MG IM Q3M antipsychotic (Reported) Benztropine Mesylate (Benztropine Mesylate) 0.5 Mg Tab 1 TAB PO BID (Reported) Gabapentin (Gabapentin) 300 Mg Cap 1 CAP PO TID (Reported) Nicotine (Nicotine Transdermal Syst) 21 Mg/24 Hr Dis #14 1 PATCH TD DAILY SMOKING CESSATION Scheduled PRN Lorazepam (Ativan) 1 Mg Tab #28 1 MG PO Q4HP PRN PRN ANXIETY/AGITATION Polyethylene Glycol (Miralax) 1 Pow Pow 17 GM PO DAILY PRN PRN CONSTIPATION ( Reported) Risperidone (Risperdal) 1 Mg Tab #28 1 MG PO Q4HP PRN PRN ANXIETY/AGITATION Trazodone HCl (Trazodone HCl) 150 Mg Tab 150 MG PO QHS PRN PRN SLEEP (Reported) Allergies Coded Allergies: PERFUMES (Verified Allergy, Unknown, 01/10/17) GME ATTESTATION My preceptor for this patient encounter was fully available. As needed, all aspects of the patient interview, examination, medical decision making process, and medical care plan development were reviewed and approved by the preceptor. Preceptor is aware and concurs with the plan as stated in the body of this note and will attest to such by his/her cosignature. RENEE MARTINES DO Jan 16, 2017 07:08
== END 2017-01-15 11:45 | disposition home or self-care (01) | DRG 751 ==
LOC: M ED 08:29 → M ED INP 10:24 → M PSY 12:50
PROVIDERS: ADMIT Internal Medicine Addiction Medicine; ATTEND Internal Medicine Addiction Medicine
DX: F29 Unspecified psychosis not due to a substance or known physiological condition (principal); F20.9 Schizophrenia, unspecified; F22 Delusional disorders; Z91.14 Patient's other noncompliance with medication regimen; Z79.899 Other long term (current) drug therapy; Z91.09 Other allergy status, other than to drugs and biological substances; Z72.0 Tobacco use

== ENCOUNTER 2017-03-27 15:27 | Emergency (ER) | payer OTHER ==
[~2017-03-27] VITALS: Ht 175.3 cm; Wt 74.8 kg
[~2017-03-27 15:27] MED LIST changes: +ATIV1TAB7 PO; +GABA-282 PO; +INVE1.75 IM; +MIRA33504 PO; +NICO21PAT TD; +RISP1TAB41 PO
[2017-03-27 15:28] VITALS: BP 109/70
== END 2017-03-27 16:38 | disposition home or self-care (01) ==
LOC: M ED 16:04
DX: Z76.0 Encounter for issue of repeat prescription (principal); I10 Essential (primary) hypertension; J45.909 Unspecified asthma, uncomplicated; R56.9 Unspecified convulsions; F29 Unspecified psychosis not due to a substance or known physiological condition; F22 Delusional disorders; F20.9 Schizophrenia, unspecified; Z79.899 Other long term (current) drug therapy; Z91.048 Other nonmedicinal substance allergy status

== ENCOUNTER 2017-06-14 08:33 | Emergency (ER) | payer OTHER ==
[~2017-06-14] VITALS: Ht 175.3 cm; Wt 75.3 kg
[~2017-06-14 08:33] MED LIST changes: +BENZ0.5T PO; -BENZ5TA PO; -RISP1TAB41 PO; +RISP1TAB42 PO; -RISP3TAB18 PO; +RISP3TAB20 PO; -TRAZ150T14 PO; +TRAZ1TAB14 PO; +TRAZ50TA11 PO; -TRAZ50TA4 PO
[2017-06-14] MEDS ORDERED: HALD5INJ2 IM (08:41)
[2017-06-14] MEDS ORDERED: SERO50TA PO (08:41)
[2017-06-14] MEDS ORDERED: INVE156I IM (08:41)
[2017-06-14] MEDS ORDERED: HALO20TA PO (08:41)
[2017-06-14 09:29] LABS: MEAN CORPUSCULAR HEMOGLOBIN 30.1 pg (27.0-33.0); RED CELL DISTRIBUTION WIDTH 13.1 % (11.5-14.5)
[2017-06-14 09:50] LABS: METHADONE URINE NEGATIVE (NEGATIVE)
[2017-06-14 09:59] LABS: ALBUMIN 3.5 GM/DL (3.2-5.2); ALBUMIN/GLOBULIN RATIO 1.03 (1.00-1.93); ALKALINE PHOSPHATASE 52 U/L (45-117); ALT/SGPT 23 U/L (12-78); ANION GAP 7 MEQ/L (8-16); AST/SGOT 24 U/L (15-37); BILIRUBIN,DIRECT 0.1 MG/DL (0.0-0.2); BILIRUBIN,TOTAL 0.5 MG/DL (0.2-1.0); BLOOD UREA NITROGEN 15 MG/DL (7-18); CALCIUM LEVEL 8.7 MG/DL (8.5-10.1); CARBON DIOXIDE LEVEL 28 MEQ/L (21-32); CHLORIDE LEVEL 107 MEQ/L (98-107); CREATININE FOR GFR 0.97 MG/DL (0.70-1.30); GLOMERULAR FILTRATION RATE > 60.0 (>60); GLUCOSE, FASTING 79 MG/DL (70-105); POTASSIUM SERUM 4.3 MEQ/L (3.5-5.1); SODIUM LEVEL 142 MEQ/L (136-145); TOTAL PROTEIN 6.9 GM/DL (6.4-8.2)
[2017-06-14] MEDS ORDERED: OXAZEPAM 15 MG CAP PO ONE ×2 (12:30→16:15)
--- NOTE | 2017-06-14 13:31 | ECGEPIP ---
Stationary ECG Study [facility] - ED Test Date: 2017-06-14 Pat Name: SHRAVAN PARRA Department: Room: - Gender: M Splunk Developer: TORIE : 1980 Requested By: Tanja Pringle Order Number: [id number] Reading MD: Tanja Pringle Measurements Intervals [place] Rate: 64 P: 17 VT: 131 QRS: 67 QRSD: 89 T: 48 QT: 386 QTc: 399 Interpretive Statements SINUS RHYTHM DECREASED RATE 02/04/16 Electronically Signed On 06-14-2017 13:31:03 EDT by Tanja Pringle
[2017-06-14 20:06] VITALS: BP 116/75
== END 2017-06-14 20:16 ==
LOC: M ED 08:33
DX: R45.851 Suicidal ideations (principal); F20.0 Paranoid schizophrenia; F19.10 Other psychoactive substance abuse, uncomplicated; Z91.5 Personal history of self-harm; J45.909 Unspecified asthma, uncomplicated; Z79.899 Other long term (current) drug therapy; Z91.89 Other specified personal risk factors, not elsewhere classified

== ENCOUNTER 2017-10-12 07:33 | Inpatient (IN) | payer MEDICAID, OTHER ==
[~2017-10-12] VITALS: Ht 175.3 cm; Wt 69.0 kg
[~2017-10-12 07:33] MED LIST changes: +HALD5INJ2 IM; +HALO20TA PO; +INVE156I IM; +SERO50TA PO
[2017-10-12] MEDS ORDERED: AMAN100C18 PO (08:36)
[2017-10-12] MEDS ORDERED: BENA25TA10 PO (08:36)
[2017-10-12] MEDS ORDERED: HALO5TA PO (08:36)
[2017-10-12] MEDS ORDERED: INVE1.75 IM (08:36)
[2017-10-12 09:51] LABS: MEAN CORPUSCULAR HEMOGLOBIN 29.7 pg (27.0-33.0); MEAN CORPUSCULAR HGB CONC 33.2 g/dl (32.0-36.5); MEAN CORPUSCULAR VOLUME 89.4 fl (80.0-96.0); PLATELET COUNT, AUTOMATED 316 10^3/uL (150-450); RED CELL DISTRIBUTION WIDTH 13.5 % (11.5-14.5); WHITE BLOOD COUNT 13.3 10^3/uL (4.0-10.0)
[2017-10-12 10:25] LABS: ALBUMIN 3.7 GM/DL (3.2-5.2); ALBUMIN/GLOBULIN RATIO 1.03 (1.00-1.93); ALKALINE PHOSPHATASE 60 U/L (45-117); ALT/SGPT 24 U/L (12-78); ANION GAP 8 MEQ/L (8-16); AST/SGOT 28 U/L (7-37); BILIRUBIN,DIRECT 0.2 MG/DL (0.0-0.2); BILIRUBIN,TOTAL 0.6 MG/DL (0.2-1.0); BLOOD UREA NITROGEN 18 MG/DL (7-18); CALCIUM LEVEL 9.2 MG/DL (8.5-10.1); CARBON DIOXIDE LEVEL 26 MEQ/L (21-32); CHLORIDE LEVEL 107 MEQ/L (98-107); CREATININE FOR GFR 0.93 MG/DL (0.70-1.30); GLOMERULAR FILTRATION RATE > 60.0 (>60); GLUCOSE, FASTING 83 MG/DL (70-105); POTASSIUM SERUM 4.2 MEQ/L (3.5-5.1); SODIUM LEVEL 141 MEQ/L (136-145); TOTAL PROTEIN 7.3 GM/DL (6.4-8.2)
[2017-10-12 12:26] LABS: METHADONE URINE NEGATIVE (NEGATIVE)
[2017-10-12 17:33] VITALS: BP 109/69
[2017-10-12] MEDS ORDERED: MAALOX 30 ML SUSP *UDC PO PRN (18:15)
[2017-10-12] MEDS ORDERED: MOM 30ML SUSPENSION UDC PO PRN (18:15)
[2017-10-12] MEDS: HALOPERIDOL 5 MG TAB PO SCH (18:49)
[2017-10-12] MEDS: diphenhydrAMINE 25 MG CAP PO PRN (20:38)
[2017-10-12] MEDS: NICOTINE 21MG/24HR 1 EA TRANSDERMAL TD SCH (20:38)
[2017-10-13 07:08] VITALS: BP 161/86
[2017-10-13] MEDS: HALOPERIDOL 5 MG TAB PO SCH ×3 (08:51→21:00)
[2017-10-13] MEDS: NICOTINE 21MG/24HR 1 EA TRANSDERMAL TD SCH ×2 (08:51→09:00)
[2017-10-13 11:36] VITALS: BP 118/70
--- NOTE | 2017-10-13 11:47 | MHHPEPDOC ---
[facility] History & Physical History and Physical DATE OF ADMISSION: Oct 12, 2017 at 13:54 LEGAL STATUS AT ADMISSION: 9.39 CHIEF COMPLAINT: disorganized behaviors HISTORY OF PRESENT ILLNESS: Patient is a 37-year-old male, no reported PMH, PPH of schizophrenia and substance use disorder, multiple prior psychiatric hospitalizations, prior SA, presents for disorganized behaviors. Patient came into the ED seeking medications, but was admitted because he was found to be odd and disorganized. Patient was walking around on the unit, staring at the wall, talking to himself or with his back turned from the provider, with disorganized speech, poor eye contact, and disorganized behavior. He was able to answer some questions before he walked off saying that he did not want to answer any more questions. Patient states that he has not taken his medications for a long time, unable to specify how long. Stated he took seroquel, risperdal, but unable to say the dose and whether he was on all at the same time. Patient denies current AH, endorsed VH but could not express of what nature. Patient unable to state his mood. As per ED report, patient goes to [facility], intermittently compliant with appointments, last appt in 08/26/17, sees either Dr. Kimball or Dr. Kyle Mariscal , [facility]. Patent last received Ml Roth 07/15/17. Due for one tomorrow. ALLERGIES: Please see below. FAMILY PSYCHIATRIC HISTORY: unable to assess SOCIAL HISTORY: from 09/18/16: " Resides in: [place] Marital Status: Single Kids: None Employment: Unemployed Tobacco use: Denies ETOH: states 6 drinks every thursday Illicit Drugs: Marijuana, meth, heroin IV Drug Use: meth,heroin "as much as I can get" Tattoos done unprofessionally: 2 " PAST MEDICAL/SURGICAL HISTORY: [None]. VITAL SIGNS: Please see below. MENTAL STATUS EXAMINATION: General appearance: unkempt, patchy haircut Behavior: odd, unrelated, evasive, staring at wall or at ground, talking with back turned Speech: disorganized, mumbling Thought processes: disorganized Thought content: intermittently appropriate to conversation Judgment: very limited Insight: very limited Orientation: unable to assess Mood: OK Affect: blunted DIAGNOSES: 1. Schizophrenia 2. cannabis, stimulant, opiate use disorder ASSESSMENT: Patient is psychotic due to being off of his medications outpatient. PROBLEM LIST: 1. psychosis 2. poor outpatient compliance INITIAL TREATMENT PLAN: 1. Patient was admitted on a 9.39 2. Complete history was obtained. 3. With patients permission, family will be contacted and database will be expanded. 4. Patients medication regimen will be reviewed and changed accordingly. 5. Patient will be provided with protected environment. 6. Patient will be treated with individual, group, and milieu therapies. 7. Patient will receive supportive psych-education. 8. Discharge planning will commence immediately. 9. Outpatient follow-up treatment will be strongly recommended. - Haldol 5 mg BID for psychosis - Invega Trinza 819 mg IMq3 months, will give today - PRN: benadryl, tylenol, MOM, mylanta ESTIMATED LENGTH OF STAY: 7 DAYS. TIME SPENT COUNSELING AND COORDINATING INITIAL CARE: minutes. Vital Signs Vital Signs Date Time Temp Pulse Resp B/P (MAP) Pulse Ox O2 Delivery O2 Flow Rate FiO2 10/13/17 07:08 98.6 82 18 161/86 (111) Room Air 10/12/17 16:30 100 Medications Scheduled (Invega Trinza) 819 Mg/2.625 Ml Inj, 819 MG IM ASDIRECTED for PSYCHOSIS, ( Reported) PER [facility]: LAST DOSE GIVEN 07-15-17 NEXT DOSE DUE 10-14-17 Haloperidol (Haloperidol) 5 Mg Tab, 5 MG PO DAILY, (Reported) Scheduled PRN Diphenhydramine Hcl (Benadryl Allergy) 25 Mg Tab, 50 MG PO QHS PRN for SLEEP, ( Reported) Allergies Coded Allergies: PERFUMES (Verified Allergy, Unknown, 01/10/17) SIMON SYKES MD Oct 13, 2017 11:47
[2017-10-13] MEDS: ACETAMINOPHEN TAB 650MG DOSE (2X325MG) PO PRN (12:13)
[2017-10-13 18:38] VITALS: BP 120/68
[2017-10-13 22:00] VITALS: BP 128/66
--- NOTE | 2017-10-13 22:20 | HPE ---
DATE OF ADMISSION: 10/12/2017 HISTORY OF PRESENT ILLNESS: Please refer to the psychiatric history and evaluation for further details on this admission. This examination and history is intended for medical issues which may need treatment, followup or consultation on this 37-year-old male. ALLERGIES: No known drug allergies. He is allergic to perfumes. PAST MEDICAL HISTORY: Schizophrenia, substance abuse. PAST SURGICAL HISTORY: None. SOCIAL HISTORY: He is single and per the record, as he would not talk, drinks six drinks at least on Fridays. He has used marijuana and occasional crack cocaine. He has had an addiction to IV heroin and methamphetamine. FAMILY HISTORY: Noncontributory. LABORATORY DATA: WBC 15.3, hemoglobin 14.6, hematocrit 44, platelets 316. Toxicology screen was negative. Complete metabolic panel (CMP) was normal. HOME MEDICATIONS: - Invega Sustenna 819 mg intramuscular (IM) - Benadryl 50 mg by mouth nightly as needed for sleep - haloperidol 5 mg by mouth daily 10-systems review was not done. Patient refused to discuss anything, would not answer any questions, and walked into his room. He also refused physical examination. He was asked again also by the boating safety officer and the patient continued to refuse.
[2017-10-14 06:40] VITALS: BP 121/74
[2017-10-14] MEDS: HALOPERIDOL 5 MG TAB PO SCH ×2 (08:35→22:21)
[2017-10-14] MEDS: NICOTINE 21MG/24HR 1 EA TRANSDERMAL TD SCH (08:36)
[2017-10-14] MEDS: ACETAMINOPHEN TAB 650MG DOSE (2X325MG) PO PRN (10:05)
[2017-10-14 11:21] VITALS: BP 107/68
--- NOTE | 2017-10-14 13:37 | MHIPNPDOC ---
[facility] Progress Note Progress Note DATE OF SERVICE: 10/14/17 HISTORY: Patient is walking around the unit, sporadically looking at the wall and talking to self, +RIS, unable to speak with this interviewer. Endorse some paranoid thoughts about this provider before walking away. VITAL SIGNS: See below. NEW TEST RESULTS: NA CURRENT MEDICATIONS: See below. MENTAL STATUS EXAMINATION: General appearance: unkempt, patchy haircut Behavior: odd, unrelated, staring at wall or at ground, walks away from this provider Speech: disorganized, mumbling Thought processes: disorganized Thought content: intermittently appropriate to conversation Judgment: very limited Insight: very limited Orientation: unable to assess Mood: OK Affect: blunted DIAGNOSES: 1. Schizophrenia 2. cannabis, stimulant, opiate use disorder ASSESSMENT: Patient is psychotic due to being off of his medications outpatient. PROBLEM LIST: 1. psychosis 2. poor outpatient compliance INITIAL TREATMENT PLAN: - will switch from haldol to paliperidone so patient can be switched to Invega injection - Pt was on Invega Trinza 819 mg IMq3 months outpatient, will give after patient tolerates oral - PRN: benadryl, tylenol, MOM, mylanta ESTIMATED LENGTH OF STAY: 7 DAYS. Vital Signs Vital Signs Date Time Temp Pulse Resp B/P (MAP) Pulse Ox O2 Delivery O2 Flow Rate FiO2 10/14/17 11:21 99.1 77 16 107/68 (81) 10/13/17 07:08 Room Air 10/12/17 16:30 100 Current Medications Current Medications Acetaminophen (Tylenol Tab) 650 mg Q6HP PRN PO HEADACHE or DISCOMFORT Last administered on 10/14/17 10:05; Start 10/12/17 at 18:15; Stop 11/11/17 at 18: 14 Al Hydrox/Mg Hydrox/Simethicone (Mylanta) 30 ml Q4HP PRN PO HEARTBURN/ INDIGESTION; Start 10/12/17 at 18:15; Stop 11/11/17 at 18:14 Diphenhydramine HCl (Benadryl) 50 mg QHSP PRN PO INSOMNIA Last administered on 10/12/17 20:38; Start 10/12/17 at 18:15; Stop 11/11/17 at 18:14 Haloperidol (Haldol) 5 mg BID PO Last administered on 10/14/17 08:35; Start 10/13/17 at 21:00; Stop 11/11/17 at 08:59 Haloperidol (Haldol) 5 mg DAILY PO Last administered on 10/13/17 09:34; Start 10/12/17 at 09:00; Stop 10/13/17 at 11:43; Status DC Home Med (Med Rec Complete!) ASDIRECTED XX ; Start 10/12/17 at 16:45; Stop at 16:53; Status DC Magnesium Hydroxide (Milk Of Magnesia) 30 ml DAILYPRN PRN PO CONSTIPATION; Start 10/12/17 at 18:15; Stop 11/11/17 at 18:14 Nicotine (Nicoderm Cq 21mg) 1 patch DAILY TD Last administered on 10/14/17 08 :36; Start 10/12/17 at 09:00; Stop 11/11/17 at 08:59 Allergies Coded Allergies: PERFUMES (Verified Allergy, Unknown, 01/10/17) SIMON SYKES MD Oct 14, 2017 13:37
[2017-10-14 18:00] VITALS: BP 113/67
[2017-10-14 21:28] VITALS: BP 110/70
[2017-10-15 07:08] VITALS: BP 121/78
[2017-10-15] MEDS: NICOTINE 21MG/24HR 1 EA TRANSDERMAL TD SCH (08:28)
[2017-10-15] MEDS: HALOPERIDOL 5 MG TAB PO SCH (08:28)
[2017-10-15] MEDS: PALIPERIDONE PALMITATE 234 MG/1.5 ML INJ (INVEGA SUSTENNA)(J2426) IM SCH ×2 (09:00→12:56)
--- NOTE | 2017-10-15 11:22 | MHIPNPDOC ---
[facility] Progress Note Progress Note DATE OF SERVICE: 10/15/17 HISTORY: Patient was slightly more related today, at least he did not walk away from this provider when attempting an interview. Patent still talking to himself, laughing to himself, walking around and staring at the wall. Patient states he came to the hospital to get his medications. Patient denies VH but was vague about whether or not he heard AH. Patient endorses some beliefs about the FBI, was writing down several lines of code that he states pertain to the FBI. Did not endorse SI intent and plan. VITAL SIGNS: See below. NEW TEST RESULTS: na CURRENT MEDICATIONS: See below. MENTAL STATUS EXAMINATION: General appearance: unkempt, patchy haircut Behavior: odd, unrelated, staring at wall or at ground, talking with back turned Speech: disorganized, mumbling Thought processes: disorganized Thought content: intermittently appropriate to conversation Judgment: very limited Insight: very limited Orientation: unable to assess Mood: OK Affect: blunted DIAGNOSES: 1. Schizophrenia 2. cannabis, stimulant, opiate use disorder ASSESSMENT: Patient is psychotic due to being off of his medications outpatient, less psychotic today than on admission. PROBLEM LIST: 1. psychosis 2. poor outpatient compliance - Haldol 5 mg BID for psychosis one more dose (tonight), and then discontinue tomorrow - Patient was tolerating Invega Trinza 819 mg IMq3 months. Trinza is non formulary at [facility]. Will give Invega Sustenna 234 mg IM inj q30 days here - PRN: benadryl, tylenol, MOM, mylanta ESTIMATED LENGTH OF STAY: 7 DAYS. TIME SPENT COUNSELING AND COORDINATING INITIAL CARE: 25 minutes. Vital Signs Vital Signs Date Time Temp Pulse Resp B/P (MAP) Pulse Ox O2 Delivery O2 Flow Rate FiO2 10/15/17 07:08 98.7 110 18 121/78 (92) 10/13/17 07:08 Room Air 10/12/17 16:30 100 Current Medications Current Medications Acetaminophen (Tylenol Tab) 650 mg Q6HP PRN PO HEADACHE or DISCOMFORT Last administered on 10/14/17t 10:05; Start 10/12/17 at 18:15; Stop 11/11/17 at 18: 14 Al Hydrox/Mg Hydrox/Simethicone (Mylanta) 30 ml Q4HP PRN PO HEARTBURN/ INDIGESTION; Start 10/12/17 at 18:15; Stop 11/11/17 at 18:14 Diphenhydramine HCl (Benadryl) 50 mg QHSP PRN PO INSOMNIA Last administered on 10/12/17 20:38; Start 10/12/17 at 18:15; Stop 11/11/17 at 18:14 Haloperidol (Haldol) 5 mg BID PO Last administered on 10/15/17 08:28; Start 10/13/17 at 21:00; Stop 11/11/17 at 08:59 Haloperidol (Haldol) 5 mg DAILY PO Last administered on 10/13/17 09:34; Start 10/12/17 at 09:00; Stop 10/13/17 at 11:43; Status DC Home Med (Med Rec Complete!) ASDIRECTED XX ; Start 10/12/17 at 16:45; Stop at 16:53; Status DC Magnesium Hydroxide (Milk Of Magnesia) 30 ml DAILYPRN PRN PO CONSTIPATION; Start 10/12/17 at 18:15; Stop 11/11/17 at 18:14 Nicotine (Nicoderm Cq 21mg) 1 patch DAILY TD Last administered on 10/15/17 08 :28; Start 10/12/17 at 09:00; Stop 11/11/17 at 08:59 Allergies Coded Allergies: PERFUMES (Verified Allergy, Unknown, 01/10/17) SIMON SYKES MD Oct 15, 2017 11:22
[2017-10-15 18:00] VITALS: BP 124/68
[2017-10-16 07:12] VITALS: BP 127/77
[2017-10-16] MEDS: HALOPERIDOL 5 MG TAB PO SCH ×2 (09:00→20:27)
[2017-10-16] MEDS: NICOTINE 21MG/24HR 1 EA TRANSDERMAL TD SCH (09:14)
--- NOTE | 2017-10-16 10:51 | MHIPNPDOC ---
[facility] Progress Note Progress Note DATE OF SERVICE: 10/16/17 HISTORY: The patient walks around the unit, talking to himself, writes letters on a piece of paper. He states he is writing algebra. Patient unable to answer whether or not he has AVH, unable to answer how his sleep and mood are. VITAL SIGNS: See below. NEW TEST RESULTS: na CURRENT MEDICATIONS: See below. MENTAL STATUS EXAMINATION: General appearance: unkempt, patchy haircut Behavior: odd, unrelated, poor eye contact, has odor, talking with back turned Speech: disorganized, mumbling Thought processes: disorganized Thought content: mostly on psychotic content Judgment: very limited Insight: very limited Orientation: unable to assess Mood: "good" Affect: laughs to himself at times, inappropriate DIAGNOSES: 1. Schizophrenia 2. cannabis, stimulant, opiate use disorder ASSESSMENT: Patient is more organized currently than on admission, but still very psychotic. PROBLEM LIST: 1. psychosis 2. poor outpatient compliance - Reinitiate Haldol 5 mg BID for psychosis - Patient was tolerating Invega Trinza 819 mg IMq3 months. Trinza is non formulary at [facility]. Gave Invega Sustenna 234 mg IM inj q30 days 10/16/17 - PRN: benadryl, tylenol, MOM, mylanta ESTIMATED LENGTH OF STAY: 7 DAYS. TIME SPENT COUNSELING AND COORDINATING INITIAL CARE: 25 minutes. Vital Signs Vital Signs Date Time Temp Pulse Resp B/P (MAP) Pulse Ox O2 Delivery O2 Flow Rate FiO2 10/16/17 07:12 98.6 100 14 127/77 (94) 10/13/17 07:08 Room Air 10/12/17 16:30 100 Current Medications Current Medications Acetaminophen (Tylenol Tab) 650 mg Q6HP PRN PO HEADACHE or DISCOMFORT Last administered on 10/14/17 10:05; Start 10/12/17 at 18:15; Stop 11/11/17 at 18: 14 Al Hydrox/Mg Hydrox/Simethicone (Mylanta) 30 ml Q4HP PRN PO HEARTBURN/ INDIGESTION; Start 10/12/17 at 18:15; Stop 11/11/17 at 18:14 Diphenhydramine HCl (Benadryl) 50 mg QHSP PRN PO INSOMNIA Last administered on 10/12/17 20:38; Start 10/12/17 at 18:15; Stop 11/11/17 at 18:14 Haloperidol (Haldol) 5 mg BID PO Last administered on 10/15/17 08:28; Start 10/13/17 at 21:00; Stop 10/15/17 at 11:18; Status DC Haloperidol (Haldol) 5 mg DAILY PO Last administered on 10/13/17 09:34; Start 10/12/17 at 09:00; Stop 10/13/17 at 11:43; Status DC Home Med (Med Rec Complete!) ASDIRECTED XX ; Start 10/12/17 at 16:45; Stop at 16:53; Status DC Magnesium Hydroxide (Milk Of Magnesia) 30 ml DAILYPRN PRN PO CONSTIPATION; Start 10/12/17 at 18:15; Stop 11/11/17 at 18:14 Nicotine (Nicoderm Cq 21mg) 1 patch DAILY TD Last administered on 10/16/17 09 :14; Start 10/12/17 at 09:00; Stop 11/11/17 at 08:59 Paliperidone Palmitate (Invega Sustenna) 234 mg Q30D IM Last administered on 12:56; Start 10/15/17 at 09:00; Stop 11/14/17 at 08:59 Allergies Coded Allergies: PERFUMES (Verified Allergy, Unknown, 01/10/17) SIMON SYKES MD Oct 16, 2017 10:51
[2017-10-16 18:00] VITALS: BP 116/60
[2017-10-16] MEDS: diphenhydrAMINE 25 MG CAP PO PRN (20:28)
[2017-10-17] MEDS: ACETAMINOPHEN TAB 650MG DOSE (2X325MG) PO PRN (05:46)
[2017-10-17 06:46] VITALS: BP 119/69
[2017-10-17] MEDS: NICOTINE 21MG/24HR 1 EA TRANSDERMAL TD SCH (08:48)
[2017-10-17] MEDS: HALOPERIDOL 5 MG TAB PO SCH ×2 (08:49→20:45)
[2017-10-17 18:46] VITALS: BP 130/73
[2017-10-18 06:43] VITALS: BP 121/70
[2017-10-18] MEDS: NICOTINE 21MG/24HR 1 EA TRANSDERMAL TD SCH (09:40)
[2017-10-18] MEDS: HALOPERIDOL 5 MG TAB PO SCH ×2 (09:40→21:16)
[2017-10-18 18:21] VITALS: BP 138/76
[2017-10-19 06:56] VITALS: BP 96/52
[2017-10-19] MEDS: HALOPERIDOL 5 MG TAB PO SCH ×2 (09:21→20:43)
[2017-10-19] MEDS: NICOTINE 21MG/24HR 1 EA TRANSDERMAL TD SCH (09:22)
--- NOTE | 2017-10-19 10:12 | MHIPNPDOC ---
[facility] Progress Note Progress Note DATE OF SERVICE: 10/19/17 HISTORY: On first encounter, patient was walking around unit, looking into space , not making eye contact when spoken to, seems to be RIS. On second encounter, pt was much more related, able to talk to this provider. States that his mood is good and that he wishes to go home. However, he was still working on "codes" involving the FBI, when asked if he thought that behavior was a part of his illness, he said that it was not and that it was real. Patient then abruptly walks off without saying anything. VITAL SIGNS: See below. NEW TEST RESULTS: NA CURRENT MEDICATIONS: See below. MENTAL STATUS EXAMINATION: General appearance: hair shaven Behavior: odd, unrelated at times to more relatable other times, poor eye contact, does not engage with provider Speech: normal RRV, rambling at times Thought processes: disorganized Thought content: mostly on psychotic content Judgment: improving but still very poor Insight: improving but still very poor Orientation: unable to assess Mood: "good" Affect: laughs to himself at times, inappropriate DIAGNOSES: 1. Schizophrenia 2. cannabis, stimulant, opiate use disorder ASSESSMENT: Patient is more organized currently than on admission, but still very psychotic. PROBLEM LIST: 1. psychosis 2. poor outpatient compliance - Continue Haldol 5 mg BID for psychosis - Patient was tolerating Invega Trinza 819 mg IMq3 months. Trinza is non formulary at [facility]. Gave Invega Sustenna 234 mg IM inj q30 days 10/16/17 - PRN: benadryl, tylenol, MOM, mylanta ESTIMATED LENGTH OF STAY: 7 DAYS. TIME SPENT COUNSELING AND COORDINATING INITIAL CARE: 25 minutes. Vital Signs Vital Signs Date Time Temp Pulse Resp B/P (MAP) Pulse Ox O2 Delivery O2 Flow Rate FiO2 10/19/17 06:56 99.2 90 18 96/52 (67) 10/13/17 07:08 Room Air Current Medications Current Medications Acetaminophen (Tylenol Tab) 650 mg Q6HP PRN PO HEADACHE or DISCOMFORT Last administered on 10/17/17t 05:46; Start 10/12/17 at 18:15; Stop 11/11/17 at 18: 14 Al Hydrox/Mg Hydrox/Simethicone (Mylanta) 30 ml Q4HP PRN PO HEARTBURN/ INDIGESTION; Start 10/12/17 at 18:15; Stop 11/11/17 at 18:14 Diphenhydramine HCl (Benadryl) 50 mg QHSP PRN PO INSOMNIA Last administered on 10/16/17 20:28; Start 10/12/17 at 18:15; Stop 11/11/17 at 18:14 Haloperidol (Haldol) 5 mg BID PO Last administered on 10/15/17 08:28; Start 10/13/17 at 21:00; Stop 10/15/17 at 11:18; Status DC Haloperidol (Haldol) 5 mg BID PO Last administered on 10/19/17 09:21; Start 10/16/17 at 09:00; Stop 11/15/17 at 08:59 Haloperidol (Haldol) 5 mg DAILY PO Last administered on 10/13/17 09:34; Start 10/12/17 at 09:00; Stop 10/13/17 at 11:43; Status DC Home Med (Med Rec Complete!) ASDIRECTED XX ; Start 10/12/17 at 16:45; Stop at 16:53; Status DC Magnesium Hydroxide (Milk Of Magnesia) 30 ml DAILYPRN PRN PO CONSTIPATION; Start 10/12/17 at 18:15; Stop 11/11/17 at 18:14 Nicotine (Nicoderm Cq 21mg) 1 patch DAILY TD Last administered on 10/19/17 09 :22; Start 10/12/17 at 09:00; Stop 11/11/17 at 08:59 Paliperidone Palmitate (Invega Sustenna) 234 mg Q30D IM Last administered on 12:56; Start 10/15/17 at 09:00; Stop 11/14/17 at 08:59 Allergies Coded Allergies: PERFUMES (Verified Allergy, Unknown, 01/10/17) SIMON SYKES MD Oct 19, 2017 10:12
[2017-10-19] MEDS: ACETAMINOPHEN TAB 650MG DOSE (2X325MG) PO PRN ×2 (11:14→17:18)
[2017-10-19 18:00] VITALS: BP 127/72
[2017-10-20 06:23] VITALS: BP 136/65
[2017-10-20] MEDS: NICOTINE 21MG/24HR 1 EA TRANSDERMAL TD SCH (08:52)
[2017-10-20] MEDS: HALOPERIDOL 5 MG TAB PO SCH ×2 (08:52→20:40)
--- NOTE | 2017-10-20 16:28 | MHIPNPDOC ---
[facility] Progress Note Progress Note DATE OF SERVICE: 10/20/17 HISTORY: Patient states that he feels normal, states that he wishes to be discharged. States that he will continue with outpatient treatment. Claims that he lives in a hotel but that his belongings are at his mother's house. States that he can walk to his mother's house (very cold outside). Still believes he is writing code for the FBI, but states today that that is not very important to him. Did not endorse SI intent and plan. Denies AVH. VITAL SIGNS: See below. NEW TEST RESULTS: NA CURRENT MEDICATIONS: See below. MENTAL STATUS EXAMINATION: General appearance: hair shaven Behavior: odd, sometimes related, other times withdrawn, intermittent eye contact Speech: normal RRV, Thought processes: intermittently disorganized Thought content: less psychotic content, more content on discharge and outpatient plan Judgment: improving but still very poor Insight: improving but still very poor Orientation: unable to assess Mood: "good" Affect: laughs inappropriately at times DIAGNOSES: 1. Schizophrenia 2. cannabis, stimulant, opiate use disorder ASSESSMENT: Patient is more organized currently than on admission, level of function may be closer to baseline PROBLEM LIST: 1. psychosis 2. poor outpatient compliance - Continue Haldol 5 mg BID for psychosis - Patient was tolerating Invega Trinza 819 mg IMq3 months. Trinza is non formulary at [facility]. Gave Invega Sustenna 234 mg IM inj q30 days 10/16/17 - PRN: benadryl, tylenol, MOM, mylanta ESTIMATED LENGTH OF STAY: 7 DAYS. TIME SPENT COUNSELING AND COORDINATING INITIAL CARE: 25 minutes. Vital Signs Vital Signs Date Time Temp Pulse Resp B/P (MAP) Pulse Ox O2 Delivery O2 Flow Rate FiO2 10/20/17 06:23 98.4 100 14 136/65 (88) Current Medications Current Medications Acetaminophen (Tylenol Tab) 650 mg Q6HP PRN PO HEADACHE or DISCOMFORT Last administered on 10/19/17t 17:18; Start 10/12/17 at 18:15; Stop 11/11/17 at 18: 14 Al Hydrox/Mg Hydrox/Simethicone (Mylanta) 30 ml Q4HP PRN PO HEARTBURN/ INDIGESTION; Start 10/12/17 at 18:15; Stop 11/11/17 at 18:14 Diphenhydramine HCl (Benadryl) 50 mg QHSP PRN PO INSOMNIA Last administered on 10/16/17 20:28; Start 10/12/17 at 18:15; Stop 11/11/17 at 18:14 Haloperidol (Haldol) 5 mg BID PO Last administered on 10/15/17 08:28; Start 10/13/17 at 21:00; Stop 10/15/17 at 11:18; Status DC Haloperidol (Haldol) 5 mg BID PO Last administered on 10/20/17 08:52; Start 10/16/17 at 09:00; Stop 11/15/17 at 08:59 Haloperidol (Haldol) 5 mg DAILY PO Last administered on 10/13/17 09:34; Start 10/12/17 at 09:00; Stop 10/13/17 at 11:43; Status DC Home Med (Med Rec Complete!) ASDIRECTED XX ; Start 10/12/17 at 16:45; Stop at 16:53; Status DC Magnesium Hydroxide (Milk Of Magnesia) 30 ml DAILYPRN PRN PO CONSTIPATION; Start 10/12/17 at 18:15; Stop 11/11/17 at 18:14 Nicotine (Nicoderm Cq 21mg) 1 patch DAILY TD Last administered on 10/20/17 08 :52; Start 10/12/17 at 09:00; Stop 11/11/17 at 08:59 Paliperidone Palmitate (Invega Sustenna) 234 mg Q30D IM Last administered on 12:56; Start 10/15/17 at 09:00; Stop 11/14/17 at 08:59 Allergies Coded Allergies: PERFUMES (Verified Allergy, Unknown, 01/10/17) SIMON SYKES MD Oct 20, 2017 16:28
[2017-10-20 18:00] VITALS: BP 122/69
[2017-10-21 07:13] VITALS: BP_SYST 65
[2017-10-21] MEDS: HALOPERIDOL 5 MG TAB PO SCH (08:03)
[2017-10-21] MEDS: NICOTINE 21MG/24HR 1 EA TRANSDERMAL TD SCH (08:03)
--- NOTE | 2017-10-21 11:26 | MHDSPDOC ---
[facility] Discharge Summary Discharge Summary DATE OF ADMISSION: Oct 12, 2017 at 13:54 DATE OF DISCHARGE: 10/21/17 DISCHARGE DIAGNOSES: 1. schizophrenia 2. cannabis, stimulant, opiate use disorder REASON FOR ADMISSION: disorganized behaviors 37-year-old male, no reported PMH, PPH of schizophrenia and substance use disorder, multiple prior psychiatric hospitalizations, prior SA, presents for disorganized behaviors. Patient came into the ED seeking medications, but was admitted because he was found to be odd and disorganized. Patient was walking around on the unit, staring at the wall, talking to himself or with his back turned from the provider, with disorganized speech, poor eye contact, and disorganized behavior. He was able to answer some questions before he walked off saying that he did not want to answer any more questions. Patient states that he has not taken his medications for a long time, unable to specify how long. Stated he took seroquel, risperdal, but unable to say the dose and whether he was on all at the same time. Patient denies current AH, endorsed VH but could not express of what nature. Patient unable to state his mood. As per ED report, patient goes to [facility], intermittently compliant with appointments, last appt in 08/26/17, sees either Dr. Kimball or Dr. Kyle Mariscal , [employer]. Patent last received Invega Trinza 07/15/17. Due for one tomorrow. Substance Hx: ETOH: states 6 drinks every thursday Illicit Drugs: Marijuana, meth, heroin IV Drug Use: meth, heroin "as much as I can get" CONSULTANTS INVOLVED: NA TREATMENT AND PROGRESS ON THE UNIT : Patient was initially disorganized in speech and behavior, RIS, talking to self, not related to provider, laughing inappropriately, writing "codes" pertaining to the [employer]. After given Invega Sustenna, patient became more organized but still RIS and difficult to relate. Patient was put on Haldol 5 mg BID and over several days his speech and behavior was organized, not RIS, more related, and was not longer working on "codes." DISCHARGE ASSESSMENT: organized, related, able to state his needs clearly, able to have a conversation with the provider, motivated to seek outpatient treatment , without RIS, denying AVH. MENTAL STATUS EXAMINATION ON DISCHARGE: General appearance: casually groomed, shaved head Behavior: slightly odd, intermittent eye contact, moderately related Speech: normal RRVT Thought processes: linear Thought content: appropriate to conversation, concrete Judgment: poor Insight: fair Mood: OK Affect: neutral, reactive MEDICATIONS ON DISCHARGE: - Haldol 5 mg BID for psychosis - Patient was tolerating Invega Trinza 819 mg IMq3 months. Trinza is non formulary at [facility]. Gave Invega Sustenna 234 mg IM inj q30, on 10/16/17 PLAN/FOLLOWUP ARRANGEMENTS: . The amount of time spent in the coordination of care for this patient was approximately 20 minutes. Vital Signs/I&Os Vital Signs Date Time Temp Pulse Resp B/P (MAP) Pulse Ox O2 Delivery O2 Flow Rate FiO2 10/21/17 07:13 98.3 16 65/ (21) 10/20/17 18:00 16 Medications Scheduled (Invega Trinza) 819 Mg/2.625 Ml Inj, 819 MG IM ASDIRECTED for PSYCHOSIS, ( Reported) PER [facility]: LAST DOSE GIVEN 07-15-17 NEXT DOSE DUE 10-14-17 Haloperidol (Haloperidol) 5 Mg Tab, 5 MG PO DAILY, (Reported) Scheduled PRN Diphenhydramine Hcl (Benadryl Allergy) 25 Mg Tab, 50 MG PO QHS PRN for SLEEP, ( Reported) Allergies Coded Allergies: PERFUMES (Verified Allergy, Unknown, 01/10/17) SIMON YSKES MD Oct 21, 2017 11:26
[2017-10-21] MEDS ORDERED: INVE1.75 IM (13:40)
[2017-10-21] MEDS ORDERED: HALO5TA PO (13:40)
== END 2017-10-21 14:20 | disposition home or self-care (01) | DRG 885 ==
LOC: M ED 07:33 → M ED INP 13:54 → M PSY 16:44
PROVIDERS: ADMIT Psychiatry & Neurology Psychiatry; ATTEND Psychiatry & Neurology Psychiatry
DX: F20.9 Schizophrenia, unspecified (principal); F12.90 Cannabis use, unspecified, uncomplicated; F11.90 Opioid use, unspecified, uncomplicated; Z79.899 Other long term (current) drug therapy

== ENCOUNTER 2017-10-30 03:31 | Inpatient (IN) | payer OTHER, MEDICAID ==
[2017-10-30] MEDS: HALOPERIDOL 5 MG TAB PO (02:30)
[2017-10-30 03:23] LABS: MEAN CORPUSCULAR HEMOGLOBIN 29.9 pg (27.0-33.0); MEAN CORPUSCULAR HGB CONC 33.4 g/dl (32.0-36.5); MEAN CORPUSCULAR VOLUME 89.5 fl (80.0-96.0); PLATELET COUNT, AUTOMATED 294 10^3/uL (150-450); RED CELL DISTRIBUTION WIDTH 13.2 % (11.5-14.5); WHITE BLOOD COUNT 8.8 10^3/uL (4.0-10.0)
[2017-10-30 03:33] LABS: METHADONE URINE NEGATIVE (NEGATIVE)
[2017-10-30 03:57] LABS: ALBUMIN 3.8 GM/DL (3.2-5.2); ALBUMIN/GLOBULIN RATIO 1.15 (1.00-1.93); ALKALINE PHOSPHATASE 57 U/L (45-117); ALT/SGPT 33 U/L (12-78); ANION GAP 8 MEQ/L (8-16); AST/SGOT 35 U/L (7-37); BILIRUBIN,DIRECT 0.1 MG/DL (0.0-0.2); BILIRUBIN,TOTAL 0.5 MG/DL (0.2-1.0); BLOOD UREA NITROGEN 9 MG/DL (7-18); CALCIUM LEVEL 8.8 MG/DL (8.5-10.1); CARBON DIOXIDE LEVEL 28 MEQ/L (21-32); CHLORIDE LEVEL 106 MEQ/L (98-107); CREATININE FOR GFR 0.96 MG/DL (0.70-1.30); GLOMERULAR FILTRATION RATE > 60.0 (>60); GLUCOSE, FASTING 105 MG/DL (70-105); POTASSIUM SERUM 3.8 MEQ/L (3.5-5.1); SODIUM LEVEL 142 MEQ/L (136-145); TOTAL PROTEIN 7.1 GM/DL (6.4-8.2)
[2017-10-30] MEDS ORDERED: ACETAMINOPHEN TAB 650MG DOSE (2X325MG) PO (05:15)
[2017-10-30] MEDS ORDERED: MAALOX 30 ML SUSP *UDC PO (05:15)
[2017-10-30] MEDS ORDERED: MOM 30ML SUSPENSION UDC PO (05:15)
[2017-10-30] MEDS ORDERED: traZODone 50 MG TAB PO (05:15)
[2017-10-30] MEDS ORDERED: OLANZapine ORAL DISINTEGRATING TAB 5MG PO (05:15)
== END 2017-10-30 11:10 | disposition home or self-care (01) | DRG 750 ==
LOC: M ED 03:31 → M ED INP 05:02 → M PSY 05:57
DX: F20.9 Schizophrenia, unspecified (principal); F12.90 Cannabis use, unspecified, uncomplicated; F11.90 Opioid use, unspecified, uncomplicated; F15.90 Other stimulant use, unspecified, uncomplicated

== ENCOUNTER 2017-11-01 09:47 | Inpatient (IN) | payer MEDICAID, OTHER ==
[2017-11-01] MEDS: NICOTINE 21MG/24HR 1 EA TRANSDERMAL TD (09:00)
[2017-11-01 10:28] LABS: HEMOGLOBIN 14.7 g/dl (14.0-18.0); MEAN CORPUSCULAR HEMOGLOBIN 29.6 pg (27.0-33.0); MEAN CORPUSCULAR HGB CONC 32.7 g/dl (32.0-36.5); MEAN CORPUSCULAR VOLUME 90.5 fl (80.0-96.0); PLATELET COUNT, AUTOMATED 306 10^3/uL (150-450); RED BLOOD COUNT 4.97 10^6/uL (4.30-6.10); RED CELL DISTRIBUTION WIDTH 13.4 % (11.5-14.5); WHITE BLOOD COUNT 7.3 10^3/uL (4.0-10.0)
[2017-11-01 10:51] LABS: ALBUMIN 3.8 GM/DL (3.2-5.2); ALBUMIN/GLOBULIN RATIO 1.12 (1.00-1.93); ALKALINE PHOSPHATASE 57 U/L (45-117); ALT/SGPT 30 U/L (12-78); ANION GAP 4 MEQ/L (8-16); AST/SGOT 27 U/L (7-37); BILIRUBIN,DIRECT 0.2 MG/DL (0.0-0.2); BILIRUBIN,TOTAL 0.7 MG/DL (0.2-1.0); BLOOD UREA NITROGEN 10 MG/DL (7-18); CALCIUM LEVEL 8.9 MG/DL (8.5-10.1); CARBON DIOXIDE LEVEL 33 MEQ/L (21-32); CHLORIDE LEVEL 106 MEQ/L (98-107); CREATININE FOR GFR 1.02 MG/DL (0.70-1.30); ETHYL ALCOHOL (ETHANOL) < 0.003 % (0.000-0.010); GLOMERULAR FILTRATION RATE > 60.0 (>60); GLUCOSE, FASTING 84 MG/DL (70-105); POTASSIUM SERUM 4.5 MEQ/L (3.5-5.1); SALICYLATE LEVEL < 1.7 MG/DL (5.0-30.0); SODIUM LEVEL 143 MEQ/L (136-145); THYROID STIMULATING HORMONE 0.844 uIU/ML (0.358-3.740); TOTAL PROTEIN 7.2 GM/DL (6.4-8.2)
[2017-11-01 11:04] LABS: AMPHETAMINES LEVEL URINE NEGATIVE (NEGATIVE); BARBITURATES URINE NEGATIVE (NEGATIVE); BENZODIAZEPINES URINE NEGATIVE (NEGATIVE); CANNABINOIDS URINE NEGATIVE (NEGATIVE); COCAINE METABOLITE URINE NEGATIVE (NEGATIVE); METHADONE URINE NEGATIVE (NEGATIVE); OPIATES URINE NEGATIVE (NEGATIVE); PHENCYCLIDINE URINE NEGATIVE (NEGATIVE)
[2017-11-01 11:12] LABS: ACETAMINOPHEN LEVEL < 2.0 UG/ML (10.0-30.0)
[2017-11-01] MEDS ORDERED: LORazepam 2 MG TAB PO (14:15)
[2017-11-01] MEDS ORDERED: MAALOX 30 ML SUSP *UDC PO (14:15)
[2017-11-01] MEDS ORDERED: MOM 30ML SUSPENSION UDC PO (14:15)
[2017-11-01] MEDS ORDERED: traZODone 50 MG TAB PO (14:15)
[2017-11-01] MEDS ORDERED: HALOPERIDOL 5 MG TAB PO (14:15)
[2017-11-01] MEDS: HALOPERIDOL 5 MG TAB PO (21:00)
[2017-11-02] MEDS: HALOPERIDOL 5 MG TAB PO ×3 (09:43→22:32)
[2017-11-02] MEDS: NICOTINE 21MG/24HR 1 EA TRANSDERMAL TD (09:43)
[2017-11-03] MEDS: HALOPERIDOL 5 MG TAB PO ×2 (09:06→21:00)
[2017-11-03] MEDS: NICOTINE 21MG/24HR 1 EA TRANSDERMAL TD (09:06)
[2017-11-03] MEDS: ACETAMINOPHEN TAB 650MG DOSE (2X325MG) PO (16:43)
[2017-11-04] MEDS: NICOTINE 21MG/24HR 1 EA TRANSDERMAL TD (10:02)
[2017-11-04] MEDS: HALOPERIDOL 5 MG TAB PO ×2 (10:03→21:00)
[2017-11-05] MEDS: NICOTINE 21MG/24HR 1 EA TRANSDERMAL TD (08:51)
[2017-11-05] MEDS: HALOPERIDOL 5 MG TAB PO (08:51)
== END 2017-11-05 14:55 | disposition home or self-care (01) | DRG 885 ==
LOC: M ED 09:47 → M ED INP 14:05 → M PSY 16:32
DX: F20.9 Schizophrenia, unspecified (principal); F12.90 Cannabis use, unspecified, uncomplicated; F15.90 Other stimulant use, unspecified, uncomplicated; F11.90 Opioid use, unspecified, uncomplicated

== ENCOUNTER 2017-11-16 21:48 | Emergency (ER) | payer OTHER, MEDICAID ==
[2017-11-17 03:17] LABS: HEMATOCRIT 42.3 % (42.0-52.0); HEMOGLOBIN 14.2 g/dl (14.0-18.0); MEAN CORPUSCULAR VOLUME 89.4 fl (80.0-96.0); RED BLOOD COUNT 4.73 10^6/uL (4.30-6.10); WHITE BLOOD COUNT 8.9 10^3/uL (4.0-10.0)
[2017-11-17 03:18] LABS: BASO # 0.1 10^3/uL (0.0-0.2); BASO % 0.6 % (0.0-1.0); EOS # 0.1 10^3/uL (0.0-0.50); EOS % 1.5 % (0.0-3.0); IMMATURE GRANULOCYTE % 0.3 % (0-0); LYMPH # 3.4 10^3/uL (1.5-4.5); MEAN CORPUSCULAR HGB CONC 33.6 g/dl (32.0-36.5); MONO # 0.8 10^3/uL (0.0-0.8); MONO % 8.8 % (0.0-5.0); NEUTROPHILS # 4.5 10^3/uL (1.8-7.7); NEUTROPHILS % 50.8 % (36.0-66.0); PLATELET COUNT, AUTOMATED 286 10^3/uL (150-450); RED CELL DISTRIBUTION WIDTH 13.8 % (11.5-14.5)
[2017-11-17 03:20] LABS: ADD MANUAL DIFFER NO; DIFF SLIDE NUMBER 125
[2017-11-17 03:23] LABS: AMPHETAMINES LEVEL URINE NEGATIVE (NEGATIVE); BARBITURATES URINE NEGATIVE (NEGATIVE); BENZODIAZEPINES URINE NEGATIVE (NEGATIVE); CANNABINOIDS URINE NEGATIVE (NEGATIVE); COCAINE METABOLITE URINE NEGATIVE (NEGATIVE); METHADONE URINE NEGATIVE (NEGATIVE); OPIATES URINE NEGATIVE (NEGATIVE); PHENCYCLIDINE URINE NEGATIVE (NEGATIVE)
[2017-11-17 04:06] LABS: BLOOD UREA NITROGEN 15 MG/DL (7-18); GLUCOSE, FASTING 72 MG/DL (70-105)
[2017-11-17 04:07] LABS: ALT/SGPT 28 U/L (12-78); ANION GAP 9 MEQ/L (8-16); AST/SGOT 32 U/L (7-37); CARBON DIOXIDE LEVEL 26 MEQ/L (21-32); CHLORIDE LEVEL 107 MEQ/L (98-107); CREATININE FOR GFR 1.01 MG/DL (0.70-1.30); GLOMERULAR FILTRATION RATE > 60.0 (>60); SODIUM LEVEL 142 MEQ/L (136-145)
[2017-11-17 04:08] LABS: ALBUMIN 3.6 GM/DL (3.2-5.2); ALKALINE PHOSPHATASE 63 U/L (45-117); BILIRUBIN,TOTAL 0.3 MG/DL (0.2-1.0); ETHYL ALCOHOL (ETHANOL) 0.028 % (0.000-0.010); SALICYLATE LEVEL 2.7 MG/DL (5.0-30.0); TOTAL PROTEIN 7.2 GM/DL (6.4-8.2)
[2017-11-17 04:09] LABS: ACETAMINOPHEN LEVEL < 2.0 UG/ML (10.0-30.0); THYROID STIMULATING HORMONE 0.772 uIU/ML (0.358-3.740)
== END 2017-11-17 06:55 | disposition home or self-care (01) ==
LOC: M ED 21:48
DX: F20.0 Paranoid schizophrenia (principal); J45.909 Unspecified asthma, uncomplicated; R56.9 Unspecified convulsions; F19.10 Other psychoactive substance abuse, uncomplicated; F33.9 Major depressive disorder, recurrent, unspecified; Z79.899 Other long term (current) drug therapy; Z91.018 Allergy to other foods
CPT/HCPCS: 80320

== ENCOUNTER 2017-11-26 09:37 | Inpatient (IN) | payer MEDICAID, OTHER ==
[2017-11-26] MEDS: NICOTINE 7 MG/24 HR TRANSDERMAL TD (09:00)
[2017-11-26 10:45] LABS: HEMATOCRIT 43.6 % (42.0-52.0); HEMOGLOBIN 14.6 g/dl (14.0-18.0); MEAN CORPUSCULAR HEMOGLOBIN 29.9 pg (27.0-33.0); MEAN CORPUSCULAR HGB CONC 33.5 g/dl (32.0-36.5); MEAN CORPUSCULAR VOLUME 89.3 fl (80.0-96.0); PLATELET COUNT, AUTOMATED 292 10^3/uL (150-450); RED BLOOD COUNT 4.88 10^6/uL (4.30-6.10); RED CELL DISTRIBUTION WIDTH 13.6 % (11.5-14.5); WHITE BLOOD COUNT 8.8 10^3/uL (4.0-10.0)
[2017-11-26 11:20] LABS: ACETAMINOPHEN LEVEL < 2.0 UG/ML (10.0-30.0); ALBUMIN 3.8 GM/DL (3.2-5.2); ALBUMIN/GLOBULIN RATIO 1.15 (1.00-1.93); ALKALINE PHOSPHATASE 53 U/L (45-117); ALT/SGPT 25 U/L (12-78); ANION GAP 7 MEQ/L (8-16); AST/SGOT 32 U/L (7-37); BILIRUBIN,DIRECT 0.2 MG/DL (0.0-0.2); BILIRUBIN,TOTAL 0.8 MG/DL (0.2-1.0); BLOOD UREA NITROGEN 14 MG/DL (7-18); CALCIUM LEVEL 8.9 MG/DL (8.5-10.1); CARBON DIOXIDE LEVEL 28 MEQ/L (21-32); CHLORIDE LEVEL 107 MEQ/L (98-107); CREATININE FOR GFR 0.93 MG/DL (0.70-1.30); ETHYL ALCOHOL (ETHANOL) < 0.003 % (0.000-0.010); GLOMERULAR FILTRATION RATE > 60.0 (>60); GLUCOSE, FASTING 80 MG/DL (70-100); POTASSIUM SERUM 3.9 MEQ/L (3.5-5.1); SALICYLATE LEVEL < 1.7 MG/DL (5.0-30.0); SODIUM LEVEL 142 MEQ/L (136-145); THYROID STIMULATING HORMONE 0.564 uIU/ML (0.358-3.740); TOTAL PROTEIN 7.1 GM/DL (6.4-8.2)
[2017-11-26 12:38] LABS: AMPHETAMINES LEVEL URINE NEGATIVE (NEGATIVE); BARBITURATES URINE NEGATIVE (NEGATIVE); BENZODIAZEPINES URINE NEGATIVE (NEGATIVE); CANNABINOIDS URINE NEGATIVE (NEGATIVE); COCAINE METABOLITE URINE NEGATIVE (NEGATIVE); METHADONE URINE NEGATIVE (NEGATIVE); OPIATES URINE NEGATIVE (NEGATIVE); PHENCYCLIDINE URINE NEGATIVE (NEGATIVE)
[2017-11-26] MEDS ORDERED: MOM 30ML SUSPENSION UDC PO (15:15)
[2017-11-26] MEDS: PALIPERIDONE PALMITATE 234 MG/1.5 ML INJ (INVEGA SUSTENNA)(J2426) IM (15:15)
[2017-11-26] MEDS ORDERED: ACETAMINOPHEN TAB 650MG DOSE (2X325MG) PO (15:15)
[2017-11-26] MEDS ORDERED: MAALOX 30 ML SUSP *UDC PO (15:15)
[2017-11-27] MEDS: NICOTINE 7 MG/24 HR TRANSDERMAL TD ×2 (08:57→09:03)
[2017-11-27] MEDS: PALIPERIDONE 3 MG ER TAB (INVEGA) PO ×2 (14:13→21:00)
[2017-11-28] MEDS: PALIPERIDONE 3 MG ER TAB (INVEGA) PO ×2 (08:26→21:00)
[2017-11-28] MEDS: NICOTINE 7 MG/24 HR TRANSDERMAL TD (08:27)
[2017-11-29] MEDS ORDERED: OLANZapine ORAL DISINTEGRATING TAB 5MG PO (07:45)
[2017-11-29] MEDS ORDERED: LORazepam 2 MG TAB PO (07:45)
[2017-11-29] MEDS: PALIPERIDONE 3 MG ER TAB (INVEGA) PO (09:42)
[2017-11-29] MEDS: NICOTINE 7 MG/24 HR TRANSDERMAL TD (09:42)
[2017-11-29] MEDS: PALIPERIDONE 6 MG ER TAB (INVEGA) PO (21:00)
[2017-11-30] MEDS: NICOTINE 7 MG/24 HR TRANSDERMAL TD (09:00)
[2017-11-30] MEDS: PALIPERIDONE 3 MG ER TAB (INVEGA) PO (09:10)
[2017-11-30] MEDS: PALIPERIDONE PALMITATE 234 MG/1.5 ML INJ (INVEGA SUSTENNA)(J2426) IM (14:56)
[2017-11-30] MEDS: PALIPERIDONE 6 MG ER TAB (INVEGA) PO (21:00)
[2017-12-01] MEDS: PALIPERIDONE 6 MG ER TAB (INVEGA) PO (08:32)
[2017-12-01] MEDS: NICOTINE 7 MG/24 HR TRANSDERMAL TD (08:33)
[2017-12-01] MEDS: HALOPERIDOL 5 MG TAB PO (17:48)
[2017-12-01] MEDS: PALIPERIDONE 3 MG ER TAB (INVEGA) PO (20:06)
[2017-12-01] MEDS: traZODone 50 MG TAB PO (20:06)
[2017-12-02] MEDS: PALIPERIDONE 3 MG ER TAB (INVEGA) PO (08:38)
[2017-12-02] MEDS: NICOTINE 7 MG/24 HR TRANSDERMAL TD (08:39)
[2017-12-02] MEDS ORDERED: BACITRACIN OINT 30GM TOP (09:00)
== END 2017-12-02 11:45 | disposition home or self-care (01) | DRG 885 ==
LOC: M PSY 12-01 15:50 → M ED 09:37 → M ED INP 12:29 → M PSY 14:15
DX: F20.0 Paranoid schizophrenia (principal)

== ENCOUNTER 2017-12-17 07:00 | Inpatient (IN) | payer MEDICAID ==
[2017-12-17 07:57] LABS: HEMATOCRIT 43.6 % (42.0-52.0); HEMOGLOBIN 14.7 g/dl (14.0-18.0); MEAN CORPUSCULAR HEMOGLOBIN 29.8 pg (27.0-33.0); MEAN CORPUSCULAR HGB CONC 33.7 g/dl (32.0-36.5); MEAN CORPUSCULAR VOLUME 88.3 fl (80.0-96.0); PLATELET COUNT, AUTOMATED 295 10^3/uL (150-450); RED BLOOD COUNT 4.94 10^6/uL (4.30-6.10); RED CELL DISTRIBUTION WIDTH 13.5 % (11.5-14.5); WHITE BLOOD COUNT 8.6 10^3/uL (4.0-10.0)
[2017-12-17 08:28] LABS: ALBUMIN 3.7 GM/DL (3.2-5.2); ALBUMIN/GLOBULIN RATIO 1.12 (1.00-1.93); ALKALINE PHOSPHATASE 57 U/L (45-117); ALT/SGPT 27 U/L (12-78); ANION GAP 9 MEQ/L (8-16); AST/SGOT 27 U/L (7-37); BILIRUBIN,DIRECT 0.1 MG/DL (0.0-0.2); BILIRUBIN,TOTAL 0.6 MG/DL (0.2-1.0); BLOOD UREA NITROGEN 22 MG/DL (7-18); CALCIUM LEVEL 8.9 MG/DL (8.5-10.1); CARBON DIOXIDE LEVEL 25 MEQ/L (21-32); CHLORIDE LEVEL 107 MEQ/L (98-107); CREATININE FOR GFR 0.89 MG/DL (0.70-1.30); GLOMERULAR FILTRATION RATE > 60.0 (>60); GLUCOSE, FASTING 91 MG/DL (70-100); SALICYLATE LEVEL 1.7 MG/DL (5.0-30.0); SODIUM LEVEL 141 MEQ/L (136-145); THYROID STIMULATING HORMONE 0.621 uIU/ML (0.358-3.740)
[2017-12-17 08:29] LABS: ACETAMINOPHEN LEVEL < 2.0 UG/ML (10.0-30.0); ETHYL ALCOHOL (ETHANOL) < 0.003 % (0.000-0.010)
[2017-12-17 08:47] LABS: AMPHETAMINES LEVEL URINE NEGATIVE (NEGATIVE); BARBITURATES URINE NEGATIVE (NEGATIVE); BENZODIAZEPINES URINE NEGATIVE (NEGATIVE); CANNABINOIDS URINE NEGATIVE (NEGATIVE); COCAINE METABOLITE URINE NEGATIVE (NEGATIVE); METHADONE URINE NEGATIVE (NEGATIVE); OPIATES URINE NEGATIVE (NEGATIVE); PHENCYCLIDINE URINE NEGATIVE (NEGATIVE)
[2017-12-17] MEDS ORDERED: MAALOX 30 ML SUSP *UDC PO (11:45)
[2017-12-17] MEDS ORDERED: MOM 30ML SUSPENSION UDC PO (11:45)
[2017-12-17] MEDS: NICOTINE 21MG/24HR 1 EA TRANSDERMAL TD (17:33)
[2017-12-17] MEDS: PALIPERIDONE 3 MG ER TAB (INVEGA) PO ×2 (17:33→21:00)
[2017-12-17] MEDS: ACETAMINOPHEN TAB 650MG DOSE (2X325MG) PO (17:33)
[2017-12-18] MEDS: NICOTINE 21MG/24HR 1 EA TRANSDERMAL TD (08:29)
[2017-12-18] MEDS: PALIPERIDONE 3 MG ER TAB (INVEGA) PO ×2 (08:30→21:00)
[2017-12-18] MEDS ORDERED: PALIPERIDONE 3 MG ER TAB (INVEGA) PO (09:00)
[2017-12-18] MEDS: PALIPERIDONE PALMITATE 234 MG/1.5 ML INJ (INVEGA SUSTENNA)(J2426) IM (12:01)
[2017-12-18] MEDS: ACETAMINOPHEN TAB 650MG DOSE (2X325MG) PO (17:41)
[2017-12-19] MEDS: NICOTINE 21MG/24HR 1 EA TRANSDERMAL TD (09:42)
[2017-12-19] MEDS: PALIPERIDONE 3 MG ER TAB (INVEGA) PO ×2 (09:42→21:32)
[2017-12-20] MEDS: HALOPERIDOL 5 MG TAB PO (01:37)
[2017-12-20] MEDS: NICOTINE 21MG/24HR 1 EA TRANSDERMAL TD (10:40)
[2017-12-20] MEDS: PALIPERIDONE 3 MG ER TAB (INVEGA) PO ×2 (10:41→20:20)
[2017-12-20] MEDS: ACETAMINOPHEN TAB 650MG DOSE (2X325MG) PO (13:16)
[2017-12-20] MEDS: traZODone 50 MG TAB PO (20:20)
[2017-12-21] MEDS: NICOTINE 21MG/24HR 1 EA TRANSDERMAL TD (08:33)
[2017-12-21] MEDS: PALIPERIDONE 3 MG ER TAB (INVEGA) PO ×2 (08:35→21:00)
[2017-12-21] MEDS ORDERED: QUEtiapine FUMARATE 100 MG TAB PO (13:45)
[2017-12-22] MEDS: PALIPERIDONE 3 MG ER TAB (INVEGA) PO (09:21)
[2017-12-22] MEDS: NICOTINE 21MG/24HR 1 EA TRANSDERMAL TD (09:22)
[2017-12-22] MEDS: ACETAMINOPHEN TAB 650MG DOSE (2X325MG) PO (09:35)
== END 2017-12-22 14:40 | disposition home or self-care (01) | DRG 885 ==
LOC: M PSY 12-21 16:55 → M ED 07:00 → M ED INP 09:52 → M PSY 10:40
DX: F20.0 Paranoid schizophrenia (principal)

== ENCOUNTER 2018-01-06 07:50 | Emergency (ER) | payer OTHER, MEDICAID | END 2018-01-06 09:20 | disposition home or self-care (01) | LOC: M ED 07:50 | DX: S76.911A Strain of unspecified muscles, fascia and tendons at thigh level, right thigh, initial encounter (principal); X58.XXXA Exposure to other specified factors, initial encounter; Y92.89 Other specified places as the place of occurrence of the external cause; Z87.828 Personal history of other (healed) physical injury and trauma; I10 Essential (primary) hypertension; J45.909 Unspecified asthma, uncomplicated; F20.0 Paranoid schizophrenia; F41.9 Anxiety disorder, unspecified; F32.9 Major depressive disorder, single episode, unspecified; F17.210 Nicotine dependence, cigarettes, uncomplicated; Z91.048 Other nonmedicinal substance allergy status; Z79.899 Other long term (current) drug therapy | CPT/HCPCS: 99284 ==

== ENCOUNTER 2018-01-12 08:40 | Inpatient (IN) | payer OTHER ==
[2018-01-12] MEDS: PERCOCET 5MG/325MG TAB PO (09:46)
[2018-01-12 09:48] LABS: HEMATOCRIT 45.7 % (42.0-52.0); HEMOGLOBIN 15.1 g/dl (14.0-18.0); MEAN CORPUSCULAR HEMOGLOBIN 29.3 pg (27.0-33.0); MEAN CORPUSCULAR VOLUME 88.7 fl (80.0-96.0); PLATELET COUNT, AUTOMATED 306 10^3/uL (150-450); RED BLOOD COUNT 5.15 10^6/uL (4.30-6.10); RED CELL DISTRIBUTION WIDTH 13.2 % (11.5-14.5); WHITE BLOOD COUNT 7.7 10^3/uL (4.0-10.0)
[2018-01-12 10:20] LABS: ALBUMIN 3.9 GM/DL (3.2-5.2); ALBUMIN/GLOBULIN RATIO 1.15 (1.00-1.93); ALKALINE PHOSPHATASE 58 U/L (45-117); ALT/SGPT 21 U/L (12-78); ANION GAP 5 MEQ/L (8-16); AST/SGOT 20 U/L (7-37); BILIRUBIN,DIRECT 0.2 MG/DL (0.0-0.2); BILIRUBIN,TOTAL 0.8 MG/DL (0.2-1.0); BLOOD UREA NITROGEN 15 MG/DL (7-18); CALCIUM LEVEL 9.1 MG/DL (8.5-10.1); CARBON DIOXIDE LEVEL 29 MEQ/L (21-32); CHLORIDE LEVEL 106 MEQ/L (98-107); CPK CREATINE PHOSPHOKINASE 321 U/L (39-308); CREATININE FOR GFR 0.96 MG/DL (0.70-1.30); GLOMERULAR FILTRATION RATE > 60.0 (>60); GLUCOSE, FASTING 93 MG/DL (70-100); POTASSIUM SERUM 4.2 MEQ/L (3.5-5.1); SALICYLATE LEVEL 2.9 MG/DL (5.0-30.0); SODIUM LEVEL 140 MEQ/L (136-145); THYROID STIMULATING HORMONE 0.837 uIU/ML (0.358-3.740); TOTAL PROTEIN 7.3 GM/DL (6.4-8.2)
[2018-01-12 10:28] LABS: ACETAMINOPHEN LEVEL < 2.0 UG/ML (10.0-30.0); AMPHETAMINES LEVEL URINE NEGATIVE (NEGATIVE); BARBITURATES URINE NEGATIVE (NEGATIVE); BENZODIAZEPINES URINE NEGATIVE (NEGATIVE); CANNABINOIDS URINE POSITIVE (NEGATIVE); COCAINE METABOLITE URINE NEGATIVE (NEGATIVE); ETHYL ALCOHOL (ETHANOL) < 0.003 % (0.000-0.010); METHADONE URINE NEGATIVE (NEGATIVE); OPIATES URINE NEGATIVE (NEGATIVE); PHENCYCLIDINE URINE NEGATIVE (NEGATIVE)
[2018-01-12] MEDS ORDERED: MAALOX 30 ML SUSP *UDC PO (13:15)
[2018-01-12] MEDS ORDERED: MOM 30ML SUSPENSION UDC PO (13:15)
[2018-01-12] MEDS ORDERED: traZODone 50 MG TAB PO (20:30)
[2018-01-13] MEDS: ACETAMINOPHEN TAB 650MG DOSE (2X325MG) PO (08:15)
[2018-01-14] MEDS: ACETAMINOPHEN TAB 650MG DOSE (2X325MG) PO ×2 (05:31→14:14)
[2018-01-14 07:05] LABS: CPK CREATINE PHOSPHOKINASE 225 U/L (39-308)
[2018-01-15] MEDS: NICOTINE 21MG/24HR 1 EA TRANSDERMAL TD (10:25)
== END 2018-01-15 14:14 | disposition home or self-care (01) | DRG 750 ==
LOC: M ED 08:40 → M ED INP 13:08 → M PSY 16:45
DX: F20.0 Paranoid schizophrenia (principal); R74.8 Abnormal levels of other serum enzymes; R45.851 Suicidal ideations; Z79.899 Other long term (current) drug therapy; Z91.048 Other nonmedicinal substance allergy status

== ENCOUNTER 2018-02-19 01:50 | Emergency (ER) | payer OTHER ==
[2018-02-19 02:54] LABS: BEDSIDE GLUCOSE 94 MG/DL (70-105)
[2018-02-19 03:16] LABS: ETHYL ALCOHOL (ETHANOL) 0.233 % (0.000-0.010)
== END 2018-02-19 06:49 | disposition home or self-care (01) ==
LOC: M ED 01:50
DX: F10.929 Alcohol use, unspecified with intoxication, unspecified (principal)
CPT/HCPCS: 80320

== ENCOUNTER 2018-03-13 15:52 | Emergency (ER) | payer OTHER | END 2018-03-13 17:59 | disposition home or self-care (01) | LOC: M ED 15:52 | DX: J41.0 Simple chronic bronchitis (principal); F17.200 Nicotine dependence, unspecified, uncomplicated; Z79.899 Other long term (current) drug therapy; Z91.89 Other specified personal risk factors, not elsewhere classified | CPT/HCPCS: 71046 ==

== ENCOUNTER 2018-04-21 05:47 | Emergency (ER) | payer OTHER | END 2018-04-21 07:07 | disposition home or self-care (01) | LOC: M ED 05:47 | DX: M79.661 Pain in right lower leg (principal); I10 Essential (primary) hypertension; F17.200 Nicotine dependence, unspecified, uncomplicated; Z91.048 Other nonmedicinal substance allergy status; Z79.899 Other long term (current) drug therapy | CPT/HCPCS: 99282 ==

== ENCOUNTER 2018-05-13 14:19 | Inpatient (IN) | payer MEDICAID, OTHER ==
[2018-05-13] MEDS: NICOTINE 21MG/24HR 1 EA TRANSDERMAL TD ×2 (09:00)
[2018-05-13 15:12] LABS: HEMATOCRIT 41.8 % (42.0-52.0); HEMOGLOBIN 14.1 g/dl (13.5-17.5); MEAN CORPUSCULAR HEMOGLOBIN 30.2 pg (27.0-33.0); MEAN CORPUSCULAR HGB CONC 33.7 g/dl (32.0-36.5); MEAN CORPUSCULAR VOLUME 89.5 fl (80.0-96.0); PLATELET COUNT, AUTOMATED 291 10^3/uL (150-450); RED BLOOD COUNT 4.67 10^6/uL (4.30-6.10); RED CELL DISTRIBUTION WIDTH 13.1 % (11.5-14.5); WHITE BLOOD COUNT 10.9 10^3/uL (4.0-10.0)
[2018-05-13 15:40] LABS: AMPHETAMINES LEVEL URINE NEGATIVE (NEGATIVE); BARBITURATES URINE NEGATIVE (NEGATIVE); BENZODIAZEPINES URINE NEGATIVE (NEGATIVE); CANNABINOIDS URINE NEGATIVE (NEGATIVE); COCAINE METABOLITE URINE NEGATIVE (NEGATIVE); METHADONE URINE NEGATIVE (NEGATIVE); OPIATES URINE NEGATIVE (NEGATIVE); PHENCYCLIDINE URINE NEGATIVE (NEGATIVE)
[2018-05-13 15:52] LABS: ACETAMINOPHEN LEVEL < 2.0 UG/ML (10.0-30.0); ALBUMIN 3.4 GM/DL (3.2-5.2); ALBUMIN/GLOBULIN RATIO 1.03 (1.00-1.93); ALKALINE PHOSPHATASE 60 U/L (45-117); ALT/SGPT 23 U/L (12-78); ANION GAP 10 MEQ/L (8-16); AST/SGOT 21 U/L (7-37); BILIRUBIN,DIRECT 0.1 MG/DL (0.0-0.2); BILIRUBIN,TOTAL 0.5 MG/DL (0.2-1.0); BLOOD UREA NITROGEN 15 MG/DL (7-18); CALCIUM LEVEL 8.9 MG/DL (8.5-10.1); CARBON DIOXIDE LEVEL 25 MEQ/L (21-32); CHLORIDE LEVEL 106 MEQ/L (98-107); CREATININE FOR GFR 1.14 MG/DL (0.70-1.30); ETHYL ALCOHOL (ETHANOL) < 0.003 % (0.000-0.010); GLOMERULAR FILTRATION RATE > 60.0 (>60); GLUCOSE, FASTING 74 MG/DL (70-100); POTASSIUM SERUM 4.2 MEQ/L (3.5-5.1); SALICYLATE LEVEL 1.9 MG/DL (5.0-30.0); SODIUM LEVEL 141 MEQ/L (136-145); THYROID STIMULATING HORMONE 0.496 uIU/ML (0.358-3.740); TOTAL PROTEIN 6.7 GM/DL (6.4-8.2)
[2018-05-13] MEDS ORDERED: MOM 30ML SUSPENSION UDC PO ×2 (18:00)
[2018-05-13] MEDS ORDERED: MAALOX 30 ML SUSP *UDC PO ×2 (18:00)
[2018-05-13] MEDS ORDERED: OLANZapine ORAL DISINTEGRATING TAB 5MG PO ×2 (18:00)
[2018-05-13] MEDS ORDERED: ACETAMINOPHEN TAB 650MG DOSE (2X325MG) PO ×2 (18:00)
[2018-05-13] MEDS: PALIPERIDONE 6 MG ER TAB (INVEGA) PO ×2 (21:00)
[2018-05-14] MEDS: NICOTINE 21MG/24HR 1 EA TRANSDERMAL TD ×2 (08:08)
[2018-05-14] MEDS: PALIPERIDONE 6 MG ER TAB (INVEGA) PO ×4 (08:08→20:12)
[2018-05-14] MEDS: HALOPERIDOL DECANOATE 100 MG/ML VIAL (J1631) IM ×2 (12:15)
[2018-05-14] MEDS: traZODone 50 MG TAB PO ×2 (20:12)
[2018-05-15] MEDS: PALIPERIDONE 6 MG ER TAB (INVEGA) PO ×4 (08:48→21:56)
[2018-05-15] MEDS: NICOTINE 21MG/24HR 1 EA TRANSDERMAL TD ×2 (08:49)
[2018-05-15 09:58] LABS: HEMATOCRIT 42.4 % (42.0-52.0); HEMOGLOBIN 14.1 g/dl (13.5-17.5); MEAN CORPUSCULAR HEMOGLOBIN 29.3 pg (27.0-33.0); MEAN CORPUSCULAR HGB CONC 33.3 g/dl (32.0-36.5); PLATELET COUNT, AUTOMATED 312 10^3/uL (150-450); RED BLOOD COUNT 4.82 10^6/uL (4.30-6.10); RED CELL DISTRIBUTION WIDTH 12.8 % (11.5-14.5); WHITE BLOOD COUNT 8.7 10^3/uL (4.0-10.0)
[2018-05-15] MEDS: traZODone 50 MG TAB PO ×2 (21:56)
[2018-05-16] MEDS: PALIPERIDONE 6 MG ER TAB (INVEGA) PO ×4 (08:39→21:00)
[2018-05-16] MEDS: NICOTINE 21MG/24HR 1 EA TRANSDERMAL TD ×2 (08:40)
[2018-05-17] MEDS: NICOTINE 21MG/24HR 1 EA TRANSDERMAL TD ×2 (09:43)
[2018-05-17] MEDS: PALIPERIDONE 6 MG ER TAB (INVEGA) PO ×4 (09:43→21:56)
[2018-05-18] MEDS: PALIPERIDONE 6 MG ER TAB (INVEGA) PO ×2 (09:15)
[2018-05-18] MEDS: NICOTINE 21MG/24HR 1 EA TRANSDERMAL TD ×2 (09:15)
[2018-05-18] MEDS ORDERED: QUEtiapine FUMARATE 25 MG TAB PO ×2 (21:00)
[2018-05-18] MEDS ORDERED: QUEtiapine FUMARATE 100 MG TAB PO ×2 (21:00)
== END 2018-05-18 14:25 | disposition home or self-care (01) | DRG 885 ==
LOC: M PSY 05-14 01:19 → M ED 14:19 → M ED INP 17:50
DX: F20.0 Paranoid schizophrenia (principal); R45.851 Suicidal ideations; Z79.899 Other long term (current) drug therapy; F17.200 Nicotine dependence, unspecified, uncomplicated; D72.829 Elevated white blood cell count, unspecified

== ENCOUNTER 2018-06-05 11:38 | Inpatient (IN) | payer MEDICAID, OTHER ==
[2018-06-05 12:25] LABS: HEMATOCRIT 42.4 % (42.0-52.0); HEMOGLOBIN 14.2 g/dl (13.5-17.5); MEAN CORPUSCULAR HEMOGLOBIN 30.2 pg (27.0-33.0); MEAN CORPUSCULAR HGB CONC 33.5 g/dl (32.0-36.5); MEAN CORPUSCULAR VOLUME 90.2 fl (80.0-96.0); PLATELET COUNT, AUTOMATED 271 10^3/uL (150-450); RED CELL DISTRIBUTION WIDTH 13.5 % (11.5-14.5); WHITE BLOOD COUNT 8.7 10^3/uL (4.0-10.0)
[2018-06-05 12:45] LABS: ALBUMIN 3.6 GM/DL (3.2-5.2); ALKALINE PHOSPHATASE 54 U/L (45-117); ALT/SGPT 26 U/L (12-78); ANION GAP 3 MEQ/L (8-16); AST/SGOT 25 U/L (7-37); BILIRUBIN,DIRECT < 0.1 MG/DL (0.0-0.2); BILIRUBIN,TOTAL 0.3 MG/DL (0.2-1.0); BLOOD UREA NITROGEN 11 MG/DL (7-18); CALCIUM LEVEL 8.9 MG/DL (8.5-10.1); CARBON DIOXIDE LEVEL 30 MEQ/L (21-32); CHLORIDE LEVEL 110 MEQ/L (98-107); ETHYL ALCOHOL (ETHANOL) 0.004 % (0.000-0.010); GLOMERULAR FILTRATION RATE > 60.0 (>60); GLUCOSE, FASTING 77 MG/DL (70-100); POTASSIUM SERUM 4.2 MEQ/L (3.5-5.1); SALICYLATE LEVEL 2.6 MG/DL (5.0-30.0); SODIUM LEVEL 143 MEQ/L (136-145); THYROID STIMULATING HORMONE 0.627 uIU/ML (0.358-3.740); TOTAL PROTEIN 7.2 GM/DL (6.4-8.2)
[2018-06-05 12:50] LABS: AMPHETAMINES LEVEL URINE NEGATIVE (NEGATIVE); BARBITURATES URINE NEGATIVE (NEGATIVE); BENZODIAZEPINES URINE NEGATIVE (NEGATIVE); CANNABINOIDS URINE NEGATIVE (NEGATIVE); COCAINE METABOLITE URINE NEGATIVE (NEGATIVE); METHADONE URINE NEGATIVE (NEGATIVE); OPIATES URINE NEGATIVE (NEGATIVE); PHENCYCLIDINE URINE NEGATIVE (NEGATIVE)
[2018-06-05 12:52] LABS: ACETAMINOPHEN LEVEL < 2.0 UG/ML (10.0-30.0)
[2018-06-06] MEDS ORDERED: MOM 30ML SUSPENSION UDC PO (00:45)
[2018-06-06] MEDS ORDERED: OLANZapine ORAL DISINTEGRATING TAB 5MG PO (00:45)
[2018-06-06] MEDS ORDERED: traZODone 50 MG TAB PO (00:45)
[2018-06-06] MEDS ORDERED: MAALOX 30 ML SUSP *UDC PO (00:45)
[2018-06-07] MEDS: ACETAMINOPHEN TAB 650MG DOSE (2X325MG) PO (05:20)
[2018-06-07] MEDS ORDERED: PALIPERIDONE PALMITATE 234 MG/1.5 ML INJ (INVEGA SUSTENNA)(J2426) IM (09:15)
== END 2018-06-07 11:50 | disposition home or self-care (01) | DRG 885 ==
LOC: M ED 11:38 → M ED INP 13:56 → M PSY 15:55
DX: F20.0 Paranoid schizophrenia (principal); F17.210 Nicotine dependence, cigarettes, uncomplicated; Z79.899 Other long term (current) drug therapy; Z91.048 Other nonmedicinal substance allergy status

== ENCOUNTER 2018-08-21 12:25 | Emergency (ER) | payer OTHER, MEDICAID ==
[2018-08-21 13:46] LABS: HEMATOCRIT 45.6 % (42.0-52.0); HEMOGLOBIN 14.8 g/dl (13.5-17.5); MEAN CORPUSCULAR HGB CONC 32.5 g/dl (32.0-36.5); MEAN CORPUSCULAR VOLUME 92.3 fl (80.0-96.0); PLATELET COUNT, AUTOMATED 270 10^3/uL (150-450); RED BLOOD COUNT 4.94 10^6/uL (4.30-6.10); RED CELL DISTRIBUTION WIDTH 13.9 % (11.5-14.5); WHITE BLOOD COUNT 9.9 10^3/uL (4.0-10.0)
[2018-08-21 14:11] LABS: AMPHETAMINES LEVEL URINE NEGATIVE (NEGATIVE); BARBITURATES URINE NEGATIVE (NEGATIVE); BENZODIAZEPINES URINE NEGATIVE (NEGATIVE); CANNABINOIDS URINE NEGATIVE (NEGATIVE); COCAINE METABOLITE URINE NEGATIVE (NEGATIVE); METHADONE URINE NEGATIVE (NEGATIVE); OPIATES URINE NEGATIVE (NEGATIVE); PHENCYCLIDINE URINE NEGATIVE (NEGATIVE)
[2018-08-21 14:24] LABS: ACETAMINOPHEN LEVEL < 2.0 UG/ML (10.0-30.0); ALBUMIN/GLOBULIN RATIO 1.14 (1.00-1.93); ALKALINE PHOSPHATASE 65 U/L (45-117); ALT/SGPT 24 U/L (12-78); ANION GAP 7 MEQ/L (8-16); AST/SGOT 27 U/L (7-37); BILIRUBIN,DIRECT 0.1 MG/DL (0.0-0.2); BILIRUBIN,TOTAL 0.5 MG/DL (0.2-1.0); BLOOD UREA NITROGEN 12 MG/DL (7-18); CALCIUM LEVEL 9.4 MG/DL (8.5-10.1); CARBON DIOXIDE LEVEL 28 MEQ/L (21-32); CHLORIDE LEVEL 107 MEQ/L (98-107); ETHYL ALCOHOL (ETHANOL) < 0.003 % (0.000-0.010); GLOMERULAR FILTRATION RATE > 60.0 (>60); GLUCOSE, FASTING 77 MG/DL (70-100); POTASSIUM SERUM 4.2 MEQ/L (3.5-5.1); SODIUM LEVEL 142 MEQ/L (136-145); THYROID STIMULATING HORMONE 0.723 uIU/ML (0.358-3.740); TOTAL PROTEIN 7.5 GM/DL (6.4-8.2)
== END 2018-08-22 00:45 ==
LOC: M ED 08-22 00:45
DX: F20.9 Schizophrenia, unspecified (principal); I10 Essential (primary) hypertension; R56.9 Unspecified convulsions; R51 Headache; Z72.0 Tobacco use; Z79.899 Other long term (current) drug therapy; Z91.89 Other specified personal risk factors, not elsewhere classified
CPT/HCPCS: 93005

== ENCOUNTER 2018-09-27 14:50 | Inpatient (IN) | payer MEDICAID, OTHER ==
[2018-09-27 15:46] LABS: HEMATOCRIT 44.6 % (42.0-52.0); HEMOGLOBIN 14.6 g/dl (13.5-17.5); MEAN CORPUSCULAR HEMOGLOBIN 29.9 pg (27.0-33.0); MEAN CORPUSCULAR HGB CONC 32.7 g/dl (32.0-36.5); MEAN CORPUSCULAR VOLUME 91.2 fl (80.0-96.0); PLATELET COUNT, AUTOMATED 281 10^3/uL (150-450); RED BLOOD COUNT 4.89 10^6/uL (4.30-6.10); RED CELL DISTRIBUTION WIDTH 13.8 % (11.5-14.5); WHITE BLOOD COUNT 7.5 10^3/uL (4.0-10.0)
[2018-09-27 16:09] LABS: AMPHETAMINES LEVEL URINE NEGATIVE (NEGATIVE); BARBITURATES URINE NEGATIVE (NEGATIVE); BENZODIAZEPINES URINE NEGATIVE (NEGATIVE); CANNABINOIDS URINE POSITIVE (NEGATIVE); COCAINE METABOLITE URINE POSITIVE (NEGATIVE); METHADONE URINE NEGATIVE (NEGATIVE); OPIATES URINE NEGATIVE (NEGATIVE); PHENCYCLIDINE URINE NEGATIVE (NEGATIVE)
[2018-09-27 16:18] LABS: ACETAMINOPHEN LEVEL < 2.0 UG/ML (10.0-30.0); ALBUMIN 3.8 GM/DL (3.2-5.2); ALBUMIN/GLOBULIN RATIO 1.03 (1.00-1.93); ALKALINE PHOSPHATASE 55 U/L (45-117); ALT/SGPT 27 U/L (12-78); ANION GAP 7 MEQ/L (8-16); AST/SGOT 24 U/L (7-37); BILIRUBIN,DIRECT 0.1 MG/DL (0.0-0.2); BILIRUBIN,TOTAL 0.4 MG/DL (0.2-1.0); BLOOD UREA NITROGEN 9 MG/DL (7-18); CALCIUM LEVEL 8.9 MG/DL (8.5-10.1); CARBON DIOXIDE LEVEL 28 MEQ/L (21-32); CHLORIDE LEVEL 107 MEQ/L (98-107); CREATININE FOR GFR 0.94 MG/DL (0.70-1.30); ETHYL ALCOHOL (ETHANOL) 0.021 % (0.000-0.010); GLOMERULAR FILTRATION RATE > 60.0 (>60); GLUCOSE, FASTING 69 MG/DL (70-100); POTASSIUM SERUM 4.5 MEQ/L (3.5-5.1); SALICYLATE LEVEL 2.2 MG/DL (5.0-30.0); SODIUM LEVEL 142 MEQ/L (136-145); THYROID STIMULATING HORMONE 0.315 uIU/ML (0.358-3.740); TOTAL PROTEIN 7.5 GM/DL (6.4-8.2)
[2018-09-27] MEDS: LORazepam 1 MG TAB PO (16:52)
[2018-09-27 17:17] LABS: BEDSIDE GLUCOSE 136 MG/DL (70-105)
[2018-09-27] MEDS ORDERED: OLANZapine 5 MG TAB PO (18:15)
[2018-09-27] MEDS ORDERED: MOM 30ML SUSPENSION UDC PO (18:15)
[2018-09-27] MEDS ORDERED: MAALOX 30 ML SUSP *UDC PO (18:15)
[2018-09-27] MEDS ORDERED: traZODone 50 MG TAB PO (18:15)
[2018-09-27] MEDS ORDERED: ACETAMINOPHEN TAB 650MG DOSE (2X325MG) PO (18:15)
[2018-09-27] MEDS ORDERED: OLANZapine ORAL DISINTEGRATING TAB 5MG PO (19:30)
[2018-09-27] MEDS: QUEtiapine FUMARATE 200 MG TAB PO (21:09)
[2018-09-27] MEDS: risperiDONE 1 MG TAB PO (21:09)
[2018-09-28] MEDS: diphenhydrAMINE 50 MG CAP PO (09:13)
[2018-09-28] MEDS: risperiDONE 1 MG TAB PO (09:13)
[2018-09-28] MEDS: OLANZapine 10 MG TAB PO (12:13)
[2018-09-28] MEDS ORDERED: PALIPERIDONE PALMITATE 234 MG/1.5 ML INJ (INVEGA SUSTENNA)(J2426) IM (13:00)
[2018-09-28] MEDS: QUEtiapine FUMARATE 200 MG TAB PO (21:13)
[2018-09-29 08:02] LABS: FREE T4 0.87 NG/DL (0.76-1.46)
[2018-09-29] MEDS: OLANZapine 10 MG TAB PO (08:11)
== END 2018-09-29 15:37 | disposition home or self-care (01) | DRG 750 ==
LOC: M ED 14:50 → M ED INP 18:13 → M PSY 19:02
DX: F20.0 Paranoid schizophrenia (principal); Z79.899 Other long term (current) drug therapy

== ENCOUNTER 2018-11-28 15:51 | Emergency (ER) | payer OTHER ==
[~2018-11-28] VITALS: Ht 175.3 cm; Wt 81.8 kg
[~2018-11-28 15:51] MED LIST changes: +ALER25CA; +AMAN100C18; +AMAN100C18 PO; +ATIV1TAB7; +BANO25TA PO; +BENA25TA10 PO; +BENZ0.5T; +BENZ200C70 PO; +DIPH50CA PO; +EUCECRE3 TOP; +GABA-1171 PO; -GABA-282 PO; +GABA-843; +GABA-843 PO; +HALO10AM IM; +HALO10AM INJ; +HALO5TA; +INVE9TAB PO; +NAPR-885 PO; +NICO21DI31; +OLAN10TA2 PO; +PALI1TAB2 PO; +PATIENT COMMENT; +QUET1TAB7 PO; +QUET1TAB9 PO; +QUET5TAB; +RISP1TAB42; +SERO200T PO; +TRAZ-160 PO; -TRAZ50TA11 PO; +TRAZO50TA PO; +diphenhydramine
[2018-11-28] MEDS ORDERED: ARIS1064 (16:01)
[2018-11-28 16:36] LABS: HEMATOCRIT 41.1 % (42.0-52.0); HEMOGLOBIN 13.6 g/dl (13.5-17.5); MEAN CORPUSCULAR HEMOGLOBIN 29.9 pg (27.0-33.0); MEAN CORPUSCULAR HGB CONC 33.1 g/dl (32.0-36.5); MEAN CORPUSCULAR VOLUME 90.3 fl (80.0-96.0); PLATELET COUNT, AUTOMATED 317 10^3/uL (150-450); RED BLOOD COUNT 4.55 10^6/uL (4.30-6.10); WHITE BLOOD COUNT 7.8 10^3/uL (4.0-10.0)
[2018-11-28 16:57] LABS: AMPHETAMINES LEVEL URINE NEGATIVE (NEGATIVE); BARBITURATES URINE NEGATIVE (NEGATIVE); BENZODIAZEPINES URINE NEGATIVE (NEGATIVE); CANNABINOIDS URINE NEGATIVE (NEGATIVE); COCAINE METABOLITE URINE NEGATIVE (NEGATIVE); METHADONE URINE NEGATIVE (NEGATIVE); OPIATES URINE NEGATIVE (NEGATIVE); PHENCYCLIDINE URINE NEGATIVE (NEGATIVE)
[2018-11-28 17:04] LABS: ACETAMINOPHEN LEVEL < 2.0 UG/ML (10.0-30.0); ALBUMIN 3.3 GM/DL (3.2-5.2); ALT/SGPT 24 U/L (12-78); BILIRUBIN,DIRECT < 0.1 MG/DL (0.0-0.2); BILIRUBIN,TOTAL 0.3 MG/DL (0.2-1.0); BLOOD UREA NITROGEN 11 MG/DL (7-18); CALCIUM LEVEL 8.1 MG/DL (8.5-10.1); CARBON DIOXIDE LEVEL 26 MEQ/L (21-32); CHLORIDE LEVEL 106 MEQ/L (98-107); CREATININE FOR GFR 1.11 MG/DL (0.70-1.30); ETHYL ALCOHOL (ETHANOL) 0.029 % (0.000-0.010); GLOMERULAR FILTRATION RATE > 60.0 (>60); GLUCOSE, FASTING 90 MG/DL (70-100); POTASSIUM SERUM 4.2 MEQ/L (3.5-5.1); SALICYLATE LEVEL 1.7 MG/DL (5.0-30.0); SODIUM LEVEL 141 MEQ/L (136-145); THYROID STIMULATING HORMONE 0.345 uIU/ML (0.358-3.740); TOTAL PROTEIN 6.7 GM/DL (6.4-8.2)
--- NOTE | 2018-11-28 18:26 | ECGEPIP ---
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
[2018-11-28 21:27] VITALS: BP 105/70
== END 2018-11-28 21:30 ==
LOC: M ED 15:51
DX: F20.0 Paranoid schizophrenia (principal); F10.10 Alcohol abuse, uncomplicated; R45.851 Suicidal ideations
CPT/HCPCS: 80048; 80076; 80307; 84443; 85027; 93005; 99285; G0480

== ENCOUNTER 2019-05-10 13:33 | Inpatient (IN) | payer MEDICAID, OTHER ==
[~2019-05-10] VITALS: Ht 175.3 cm; Wt 69.1 kg
[~2019-05-10 13:33] MED LIST changes: -/HALO2TA OR; +ARIS1064 IM; -BENZ0.5T; -BENZ0.5T PO; +BENZ0.5T23; +BENZ0.5T23 PO; +HALO10TA20 PO; +HALO1TAB19 OR; -HALO1TAB29 PO; -TRAZ-160 PO; +TRAZ-252 PO; +TRAZ1TAB10 PO; -TRAZO50TA PO
[2019-05-10 14:58] LABS: HEMATOCRIT 41.3 % (42.0-52.0); HEMOGLOBIN 13.5 g/dl (13.5-17.5); MEAN CORPUSCULAR HEMOGLOBIN 29.5 pg (27.0-33.0); MEAN CORPUSCULAR HGB CONC 32.7 g/dl (32.0-36.5); MEAN CORPUSCULAR VOLUME 90.2 fl (80.0-96.0); PLATELET COUNT, AUTOMATED 308 10^3/uL (150-450); RED BLOOD COUNT 4.58 10^6/uL (4.30-6.10); WHITE BLOOD COUNT 7.7 10^3/uL (4.0-10.0)
[2019-05-10 15:19] LABS: AMPHETAMINES LEVEL URINE NEGATIVE (NEGATIVE); BARBITURATES URINE NEGATIVE (NEGATIVE); BENZODIAZEPINES URINE NEGATIVE (NEGATIVE); CANNABINOIDS URINE POSITIVE (NEGATIVE); COCAINE METABOLITE URINE NEGATIVE (NEGATIVE); METHADONE URINE NEGATIVE (NEGATIVE); OPIATES URINE NEGATIVE (NEGATIVE); PHENCYCLIDINE URINE NEGATIVE (NEGATIVE)
[2019-05-10 15:44] LABS: ACETAMINOPHEN LEVEL < 2.0 UG/ML (10.0-30.0); ALBUMIN 3.3 GM/DL (3.2-5.2); ALT/SGPT 30 U/L (12-78); BILIRUBIN,DIRECT < 0.1 MG/DL (0.0-0.2); BILIRUBIN,TOTAL 0.2 MG/DL (0.2-1.0); BLOOD UREA NITROGEN 12 MG/DL (7-18); CALCIUM LEVEL 8.2 MG/DL (8.5-10.1); CARBON DIOXIDE LEVEL 27 MEQ/L (21-32); CHLORIDE LEVEL 110 MEQ/L (98-107); CREATININE FOR GFR 0.94 MG/DL (0.70-1.30); ETHYL ALCOHOL (ETHANOL) 0.051 % (0.000-0.010); GLOMERULAR FILTRATION RATE > 60.0 (>60); GLUCOSE, FASTING 72 MG/DL (70-100); POTASSIUM SERUM 4.3 MEQ/L (3.5-5.1); SALICYLATE LEVEL 2.4 MG/DL (5.0-30.0); SODIUM LEVEL 144 MEQ/L (136-145); THYROID STIMULATING HORMONE 0.298 uIU/ML (0.358-3.740); TOTAL PROTEIN 6.7 GM/DL (6.4-8.2)
[2019-05-10] MEDS ORDERED: AMAN100T PO (19:11)
[2019-05-10] MEDS ORDERED: QUET1TAB9 PO (19:11)
[2019-05-10] MEDS ORDERED: MOM 30ML SUSPENSION UDC PO PRN (19:15)
[2019-05-10] MEDS ORDERED: MAALOX 30 ML SUSP *UDC PO PRN (19:15)
[2019-05-10] MEDS ORDERED: traZODone 50 MG TAB PO PRN (19:15)
[2019-05-10] MEDS ORDERED: OLANZapine 5 MG TAB PO PRN (19:15)
[2019-05-10 20:36] VITALS: BP 127/75
[2019-05-11 06:43] VITALS: BP 129/69
--- NOTE | 2019-05-11 07:37 | HPEPDOC ---
General Date of Admission May 10, 2019 at 19:42 Date of Service: May 11, 2019 Attending Physician: CYNTHIA SANABRIA MD Chief Complaint The patient is a 39-year-old male admitted with a reason for visit of Schizophrenia. History of Present Illness Self, Kirill is a 39-year-old male, past medical history significant for schizophrenia, polysubstance abuse, nicotine dependence, depression, admitted on account of suicidal ideation without a plan. Patient admitted to [facility] his edications. 2 weeks prior to presentation. He had also been consuming an increased amount of alcohol. On assessment, patient states he does not have an alcohol problem but drinks only occasionally, he denies any symptoms of chest pain, shortness of breath, weakness, chills, fever, abdominal pain. Home Medications Scheduled Amantadine HCl (Amantadine) 100 Mg Tablet, 200 MG PO DAILY, (Reported) Aripiprazole Lauroxil (Aristada) 1,064 Mg/3.9 Ml Inj, 3.9 ML IM [id number], (Reported) Haloperidol Decanoate (Haloperidol Decanoate) 100 Mg/Ml Soln, 100 MG IM QMONTH for PSYCHOSIS, (Reported) Paliperidone Palmitate (Invega Trinza) 819 Mg/2.625 Ml Inj, 819 MG IM Q3M for PSYCHOSIS, (Reported) Quetiapine Fumarate (Quetiapine Fumarate) 200 Mg Tablet, 200 MG PO QHS, (Reported) Allergies Coded Allergies: PERFUMES (Verified Allergy, Unknown, 04/21/18) Past Medical History Medical History Polysubstance abuse with THC Nicotine dependence Schizophrenia. Surgical History Denies surgical history Family History Denies family history Social History Smokes one pack per day, alcohol intake weekends, polysubstance abuse with THC A-FIB/CHADSVASC A-FIB History Current/History of A-Fib/PAF?: No Current PO Anticoag Therapy: No Review of Systems Other systems A10 point pertinent review of systems was completed, negative except as stated in the history of present illness Physical Examination Other physical findings GENERAL: NAD SKIN : Warm, dry intact HEENT: Atraumatic, normocephalic, PERRL, moist mucous membrane CARDIOVASCULAR: Regular rate and rhythm, S1S2, no JVD, no edema, distal pulses + and palpable RESP: CTAB, no accessory muscle use noted ABDOMEN: BS+ non distended non tender MS: no joint deformities NEURO: Alert and oriented x 3, CN2-12 grossly intact PSYCH: no anxiety or agitation, appropriate mood and affect. Vital Signs Vital Signs Date Time Temp Pulse Resp B/P (MAP) Pulse Ox O2 Delivery O2 Flow Rate FiO2 05/11/19 06:43 98.0 83 14 129/69 (89) 05/10/19 19:48 99 05/10/19 13:33 Room Air Laboratory Data Labs 24H Laboratory Tests 2 05/10/19 14:42: Nucleated Red Blood Cells % (auto) 0.0, Anion Gap 7L, Glomerular Filtration Rate > 60.0, Calcium Level 8.2L, Aspartate Amino Transf (AST/SGOT) 37, Alanine Aminotransferase (ALT/SGPT) 30, Alkaline Phosphatase 49, Total Bilirubin 0.2, Direct Bilirubin < 0.1, Total Protein 6.7, Albumin 3.3, Albumin/Globulin Ratio 0.97L, Thyroid Stimulating Hormone (TSH) 0.298L, Salicylates Level 2.4L, Urine Amphetamines Screen NEGATIVE, Urine Benzodiazepines Screen NEGATIVE, Urine Opiates Screen NEGATIVE, Urine Methadone Screen NEGATIVE, Acetaminophen Level < 2.0L, Urine Barbiturates Screen NEGATIVE, Urine Phencyclidine Screen NEGATIVE, Urine Cocaine Metabolite Screen NEGATIVE, Urine Cannabinoids Screen POSITIVEH, Ethyl Alcohol Level 0.051H CBC/BMP Laboratory Tests 05/10/19 14:42 Red Blood Count 4.58, Mean Corpuscular Volume 90.2, Mean Corpuscular Hemoglobin 29.5, Mean Corpuscular Hemoglobin Concent 32.7, Red Cell Distribution Width 13.9 Assessment/Plan Suicidal ideation Nicotine dependence. Medical nonadherence Polysubstance abuse with THC Plan At this time patient has no acute medical problems or underlying comorbidities requiring active follow-up. Acute problems are managed by primary team. Medical team will sign off, please re-consult as needed. Plan / VTE VTE Prophylaxis Ordered?: No VTE Exclusion Mechanical Proph: Low Risk for VTE BRIANA CAMPA May 11, 2019 07:37
[2019-05-11 11:23] VITALS: BP 133/78
--- NOTE | 2019-05-11 11:46 | MHHPEPDOC ---
General Date Of Admission: May 10, 2019 Legal Status: 9.39 Chief Complaint "I was feeling suicidal." History of Present Illness HISTORY OF THE PRESENT ILLNESS: Patient is a 39 -year-old , male, with a history of paranoid schizophrenia and multiple admission to [facility] most for invega trinza shot due to missing outpatient most recently who self- presented to the ED endorsing SI with no plan and depression due to family issues involving his daughter that he has been self medicating with alcohol and staying in bed all day. Bal on admission 0.051 and utox positive cannabis. Psychiatric Review of Systems Depression (2 or more weeks): depressed mood, suicidal thoughts Laura (4 or more days of): denies Psychosis: auditory hallucination, disorganization PTSD: denies Anxiety: situational anxiety, stressor related anxiety Anxiety/ 6 months or more of: difficulty concentrating Past Psychiatric History Previous Psychiatric Diagnosis: Paranoid Schizophrenia. Previous Psychiatric Admissions: several to [facility], last discharge 09/27/18 for similar complaint; substance abuse treatment a number of times in the past Suicide Attempts: denies. Psychiatric Follow-up: [facility] Psychiatric medications: Aristada, seroquel, Invega Trinza, amatidine Past Medical History Medical Problems denies Head Injury: Yes (concussion at 21y/o) Seizures: No Hospitalizations: Yes Surgeries: No Family Medical/Psychiatric HX Medical Problems noncontributory Psychiatric Disorders: Yes (family hx of schizophrenia) Addiction: No Suicide Attemps/Completions: No Addiction History nicotine, alcohol (bal on admission 0.051), cocaine (in past), other (cannabis - used prior admission) Social History Childhood: born and raised in [place] by his mother, normal childhood development. Abuse/Trauma: unknown. Current Living Situation: lives alone in [facility] Education: 10th grade edu. Employment: SSDI. Social Support: mother. Legal: denies. Marital: single, one daughter living with her mother Mental Status Examination General Appearance: well groomed, appears stated age, hospital scubs/clothing Build: average Demeanor: average Eye Contact: fair Activity: average Behavior: cooperative, restless Speech: reg/rate,rhythm,volume Mood: euthymic Mood alright Affect: full, appropriate, congruent, disorganized (mildly at baseline) Thought Process: concrete Thought Content (Delusions): other (denies SI/HI today) Thought Content (Other): preoccupied (writing on paper and carrying aroun pencil and paper (this is his baseline)), internal-stimuli (mild at baseline) Perception (Hallucinations): auditory (at baseline, mild and able to ignore (appears doing the best I've ever seen him regarding AH)) Perception (Other): none reported Cognition (Impairment of): attention/concentration, ability to abstract Cognition(Intelligence Est.): borderline Oriented: Awake, Alert, Oriented times three Insight: fair Judgment: Fair Psychosis: Associations, Abstract Thinking, Psychotic Perceptions, Other (all mild as pt at baseline) Diagnoses Paranoid Schizophrenia depression unspecified alcohol use d/o cannabis use d/o A-FIB/CHADSVASC A-FIB History Current/History of A-Fib/PAF?: No Current PO Anticoag Therapy: No Treatment Treatment ordered: NONE Reason Anticoagulant not given: Not indicated/[id number] Assessment Pt seen and states he feels better today as he was feeling depressed and suicidal yesterday with no plan which he feels is due to his invega trinza not being delivered to his home 2wks ago and is in need of receiving it here. Explained the hospital doesn't carry invega maksimza but d/c menu planner to call his mother so she can pick it up at the pharmacy and bring it in to receive here. Otherwise has baseline AH and preoccupation with writing on paper although does appear to being doing the best I've ever seen him regarding ability to maintain attention and listen then respond appropriately. States he's tolerating his Aristada (given 04/29/19), seroquel, and amantidine that are all beneficial and will restart seroquel and amantine here. States he feels safe here. Denies SI/HI. Encouraged to attend groups daily. Initial Treatment Plan 1. Patient was admitted on a 9.39 status. 2. Complete history was obtained. 3. With patients permission, family will be contacted and database will be expanded. 4. Patients medication regimen will be reviewed and changed accordingly. 5. Patient will be provided with protected environment. 6. Patient will be treated with individual, group, and milieu therapies. 7. Patient will receive supportive psych-education. 8. Discharge planning will commence immediately. 9. Outpatient follow-up treatment will be strongly recommended. 10. The initial treatment plan will focus initially on: * Depression. * Risk for suicide. * Substance abuse. 11. mother to bring in invega trinza 1064mg im to be given here, restart seroquel and amantidine ESTIMATED LENGTH OF STAY: 3-5 DAYS. TIME SPENT COUNSELING AND COORDINATING INITIAL CARE: 60 minutes. Vital Signs Vital Signs Date Time Temp Pulse Resp B/P (MAP) Pulse Ox O2 Delivery O2 Flow Rate FiO2 05/11/19 06:43 98.0 83 14 129/69 (89) 05/10/19 19:48 99 05/10/19 13:33 Room Air Laboratory Data 24H Labs Laboratory Tests 2 05/10/19 14:42: Nucleated Red Blood Cells % (auto) 0.0, Anion Gap 7L, Glomerular Filtration Rate > 60.0, Calcium Level 8.2L, Aspartate Amino Transf (AST/SGOT) 37, Alanine Aminotransferase (ALT/SGPT) 30, Alkaline Phosphatase 49, Total Bilirubin 0.2, Direct Bilirubin < 0.1, Total Protein 6.7, Albumin 3.3, Albumin/Globulin Ratio 0.97L, Thyroid Stimulating Hormone (TSH) 0.298L, Salicylates Level 2.4L, Urine Amphetamines Screen NEGATIVE, Urine Benzodiazepines Screen NEGATIVE, Urine Opiates Screen NEGATIVE, Urine Methadone Screen NEGATIVE, Acetaminophen Level < 2.0L, Urine Barbiturates Screen NEGATIVE, Urine Phencyclidine Screen NEGATIVE, Urine Cocaine Metabolite Screen NEGATIVE, Urine Cannabinoids Screen POSITIVEH, Ethyl Alcohol Level 0.051H CBC/BMP Laboratory Tests 05/10/19 14:42 Red Blood Count 4.58, Mean Corpuscular Volume 90.2, Mean Corpuscular Hemoglobin 29.5, Mean Corpuscular Hemoglobin Concent 32.7, Red Cell Distribution Width 13.9 Medications Scheduled Amantadine HCl (Amantadine) 100 Mg Tablet, 200 MG PO DAILY, (Reported) Aripiprazole Lauroxil (Aristada) 1,064 Mg/3.9 Ml Inj, 3.9 ML IM [id number], (Reported) Haloperidol Decanoate (Haloperidol Decanoate) 100 Mg/Ml Soln, 100 MG IM QMONTH for PSYCHOSIS, (Reported) Paliperidone Palmitate (Invega Trinza) 819 Mg/2.625 Ml Inj, 819 MG IM Q3M for PSYCHOSIS, (Reported) Quetiapine Fumarate (Quetiapine Fumarate) 200 Mg Tablet, 200 MG PO QHS, (Reported) Allergies Coded Allergies: PERFUMES (Verified Allergy, Unknown, 04/21/18) DIANA DONIS DO May 11, 2019 11:20 am
[2019-05-11] MEDS ORDERED: AMANTADINE 100 MG CAP PO ONE (12:00)
[2019-05-11] MEDS ORDERED: PALIPERIDONE IM ONE (16:30)
[2019-05-11 18:00] VITALS: BP 127/78
[2019-05-11] MEDS: AMANTADINE 100 MG CAP PO SCH (22:28)
[2019-05-11] MEDS: QUEtiapine FUMARATE 200 MG TAB PO SCH (22:28)
[2019-05-12] MEDS ORDERED: UNRESOLVED CLARIFICATION ENTRY XX SCH (00:01)
[2019-05-12 06:49] VITALS: BP 125/79
[2019-05-12] MEDS: AMANTADINE 100 MG CAP PO SCH ×2 (09:54→21:04)
--- NOTE | 2019-05-12 11:39 | MHIPNPDOC ---
[facility] Progress Note Progress Note DATE OF SERVICE: 05/12/19 HISTORY: Patient is a 39 -year-old , male, with a history of paranoid schizophrenia and multiple admission to [facility] most for invega trinza shot due to missing outpatient most recently who self-presented to the ED endorsing SI with no plan and depression due to family issues involving his daughter that he has been self medicating with alcohol and staying in bed all day. Bal on admission 0.051 and utox positive cannabis. VITAL SIGNS: see below NEW TEST RESULTS:see below CURRENT MEDICATIONS: See below. MENTAL STATUS EXAMINATION: General Appearance: well groomed, appears stated age, hospital scrubs/clothing Build: average Demeanor: average Eye Contact: fair Activity: average Behavior: cooperative, restless Speech: reg/rate,rhythm,volume Mood: euthymic Mood alright Affect: full, appropriate, congruent, disorganized (mildly at baseline) Thought Process: concrete Thought Content (Delusions): other (denies SI/HI today) Thought Content (Other): preoccupied ("DI6" note for the "DA."), internal- stimuli (mild at baseline) Perception (Hallucinations): auditory (at baseline, mild and able to ignore (appears doing the best I've ever seen him regarding AH)) Perception (Other): none reported Cognition (Impairment of): attention/concentration, ability to abstract Cognition(Intelligence Est.): borderline Oriented: Awake, Alert, Oriented times three Insight: fair Judgment: Fair Psychosis: Associations, Abstract Thinking, Psychotic Perceptions, Other (all mild as pt at baseline) DIAGNOSES: Paranoid Schizophrenia depression unspecified alcohol use d/o cannabis use d/o ASSESSMENT:Pt seen and states he feels "alright." Just took invega trinza im this am and tolerating well. Endorses baseline AH that are "alright." Writing "DI6" note for the "DA." Compliant with meds and staff. States he feels safe here. Denies SI/HI. Encouraged to attend groups daily. MANAGEMENT PLAN: continue plan invega trinza 819mg im x1 seroquel 200mg qhs amantidine 200mb bid TIME SPENT: 30 minutes. Vital Signs Vital Signs Date Time Temp Pulse Resp B/P (MAP) Pulse Ox O2 Delivery O2 Flow Rate FiO2 05/12/19 06:49 98.5 62 12 125/79 (94) 05/10/19 19:48 99 05/10/19 13:33 Room Air Current Medications Current Medications Acetaminophen (Tylenol Tab) 650 mg Q6HP PRN PO HEADACHE or DISCOMFORT; Start 05/10/19 at 19:15 Al Hydrox/Mg Hydrox/Simethicone (Mylanta) 30 ml Q4HP PRN PO HEARTBURN/INDIGESTION; Start 05/10/19 at 19:15 Amantadine HCl (Symmetrel) 200 mg BID PO Last administered on 05/12/19at 09:54; Start 05/11/19 at 21:00 Home Med (Med Rec Complete!) ASDIRECTED XX ; Start 05/10/19 at 19:15; Stop 05/10/19 at 19:15; Status DC Magnesium Hydroxide (Milk Of Magnesia) 30 ml DAILYPRN PRN PO CONSTIPATION; Start 05/10/19 at 19:15 Miscellaneous (Unresolved Clarification Entry) SEE LABEL COMMENTS UNRESOLVED XX ; Start 05/12/19 at 00:01 Olanzapine (ZyPREXA) 5 mg Q4HP PRN PO AGITATION; Start 05/10/19 at 19:15 Quetiapine Fumarate (SEROquel) 200 mg QHS PO Last administered on 05/11/19at 22:28; Start 05/11/19 at 21:00 Trazodone HCl (Desyrel) 50 mg QHSP PRN PO INSOMNIA; Start 05/10/19 at 19:15 Allergies Coded Allergies: PERFUMES (Verified Allergy, Unknown, 04/21/18) DIANA DONIS DO May 12, 2019 11:39 am
[2019-05-12] MEDS ORDERED: INVEGA TRINZA 819 MG IM ONE (14:00)
[2019-05-12] MEDS ORDERED: HALOPERIDOL 10 MG TAB PO ONE (14:15)
[2019-05-12] MEDS: ACETAMINOPHEN TAB 650MG DOSE (2X325MG) PO PRN (17:28)
[2019-05-12 18:00] VITALS: BP 110/70
[2019-05-12] MEDS: QUEtiapine FUMARATE 200 MG TAB PO SCH (21:03)
[2019-05-13 06:57] VITALS: BP 102/74
[2019-05-13] MEDS: AMANTADINE 100 MG CAP PO SCH ×2 (08:15→22:03)
[2019-05-13] MEDS: ACETAMINOPHEN TAB 650MG DOSE (2X325MG) PO PRN (09:41)
[2019-05-13] MEDS ORDERED: HALOPERIDOL 10 MG TAB PO PRN (10:45)
--- NOTE | 2019-05-13 11:00 | MHIPNPDOC ---
[facility] Progress Note Progress Note DATE OF SERVICE: 05/13/19 HISTORY: Patient is a 39 -year-old , male, with a history of paranoid schizophrenia and multiple admission to [facility] most for invega trinza shot due to missing outpatient most recently who self-presented to the ED endorsing SI with no plan and depression due to family issues involving his daughter that he has been self medicating with alcohol and staying in bed all day. Bal on admission 0.051 and utox positive cannabis. VITAL SIGNS: see below NEW TEST RESULTS:see below CURRENT MEDICATIONS: See below. MENTAL STATUS EXAMINATION: General Appearance: well groomed, appears stated age, hospital scrubs/clothing Build: average Demeanor: irritable Eye Contact: fair Activity: irritable Behavior: cooperative, restless Speech: reg/rate,rhythm,volume Mood: irritable Mood "irritable" Affect: irritable appropriate, congruent, disorganized (mildly at baseline) Thought Process: concrete Thought Content (Delusions): other (denies SI/HI today) Thought Content (Other): preoccupied ("DI6" note for the "DA."), internal- stimuli increased today making pt "irritable," responding to internal stimuli Perception (Hallucinations): auditory increased today making pt "irritable" Perception (Other): none reported Cognition (Impairment of): attention/concentration, ability to abstract Cognition(Intelligence Est.): borderline Oriented: Awake, Alert, Oriented times three Insight: fair Judgment: Fair Psychosis: Associations, Abstract Thinking, Psychotic Perceptions, Other (all mild as pt at baseline) DIAGNOSES: Paranoid Schizophrenia depression unspecified alcohol use d/o cannabis use d/o ASSESSMENT:Pt seen and states he feels "irritable" and won't say why but appears irritable and no as he usually is. Pt experiencing irritability and increased internal stimuli yesterday and given prn haldol which relieved it, encouraged to take again today but states "that's just hypnotic and makes you sleep" appearing to not want to take it. Will also prescribe haldol 10mg bid to make sure pt takes med to aid irritability that is most likely due to internal stimuli (appears to be responding). Just took invega trinza im yesterday and tolerating well. Endorses baseline AH appearing increased today and stated yesterday he was writing a "DI6" note for the "DA." Compliant with meds and staff. States he feels safe here. Denies SI/HI. Encouraged to attend groups daily. MANAGEMENT PLAN: continue plan invega trinza 819mg im x1 seroquel 200mg qhs amantidine 200mb bid haldol 10mg bid haldol 10mg q4hr prn anxiety/agitation TIME SPENT: 30 minutes. Vital Signs Vital Signs Date Time Temp Pulse Resp B/P (MAP) Pulse Ox O2 Delivery O2 Flow Rate FiO2 05/13/19 06:57 97.8 88 14 102/74 (83) 05/10/19 19:48 99 05/10/19 13:33 Room Air Current Medications Current Medications Acetaminophen (Tylenol Tab) 650 mg Q6HP PRN PO HEADACHE or DISCOMFORT Last administered on 05/13/19at 09:41; Start 05/10/19 at 19:15 Al Hydrox/Mg Hydrox/Simethicone (Mylanta) 30 ml Q4HP PRN PO HEARTBURN/INDIGESTION; Start 05/10/19 at 19:15 Amantadine HCl (Symmetrel) 200 mg BID PO Last administered on 05/13/19at 08:15; Start 05/11/19 at 21:00 Home Med (Med Rec Complete!) ASDIRECTED XX ; Start 05/10/19 at 19:15; Stop 05/10/19 at 19:15; Status DC Magnesium Hydroxide (Milk Of Magnesia) 30 ml DAILYPRN PRN PO CONSTIPATION; Start 05/10/19 at 19:15 Miscellaneous (Unresolved Clarification Entry) SEE LABEL COMMENTS UNRESOLVED XX ; Start 05/12/19 at 00:01; Stop 05/12/19 at 14:26; Status DC Olanzapine (ZyPREXA) 5 mg Q4HP PRN PO AGITATION; Start 05/10/19 at 19:15 Quetiapine Fumarate (SEROquel) 200 mg QHS PO Last administered on 05/12/19at 21:03; Start 05/11/19 at 21:00 Trazodone HCl (Desyrel) 50 mg QHSP PRN PO INSOMNIA; Start 05/10/19 at 19:15 Allergies Coded Allergies: PERFUMES (Verified Allergy, Unknown, 04/21/18) DIANA DONIS DO May 13, 2019 11:00 am
[2019-05-13] MEDS: HALOPERIDOL 10 MG TAB PO SCH ×2 (11:29→22:03)
[2019-05-13 18:08] VITALS: BP 114/71
[2019-05-13] MEDS: QUEtiapine FUMARATE 200 MG TAB PO SCH (22:03)
[2019-05-14 06:47] VITALS: BP 104/70
[2019-05-14] MEDS: HALOPERIDOL 10 MG TAB PO SCH ×2 (09:16→22:16)
[2019-05-14] MEDS: AMANTADINE 100 MG CAP PO SCH ×2 (09:16→22:16)
[2019-05-14] MEDS: ACETAMINOPHEN TAB 650MG DOSE (2X325MG) PO PRN (12:40)
--- NOTE | 2019-05-14 14:25 | MHIPNPDOC ---
[facility] Progress Note Progress Note Inpatient Progress Note Gabo Bull Age 39 Male Date of : 1980 Date of Service: 05/14/2019 History of Present Illness The patient is a 39 year old man with a past history significant for schizophrenia, polysubstance abuse, and depression was admitted with suicidal ideation without a plan. He was noted to have stopped his medications two weeks prior to his presentation with an increased consumption of alcohol. Interval History The patient was met with today where he described that he was tolerating his haldol fairly well, he had no complaints. No issues on the unit overnight. Has been socializing with select peers. He describes that he does have voices at ti mes but notices the Haldol is helpful for that. He describes that he is waiting for his Trinza shot. He states that he generally has been enjoying his experience on the unit with no complaints at this time. Review Of Systems Denies any side effects of medications. No tremors or GI side effects Psychotherapy None on this visit. Vital Signs Reviewed. Mental Status Examination General: Well dressed with good hygiene Speech: Spontaneous and fluid Thought processes: Mildly circumstantial at times MSK: Smooth and coordinated gait, no signs of tremors or involuntary orofacial movements Thought content: Pre-occupied Abstract reasoning, and computation: Intact Description of associations: Mildly loose Description of abnormal or psychotic thoughts: The patient denies any suicidal or homicidal ideation. Admits to auditory hallucinations that are fairly chronic but are not present in the room. Appears to be responding to internal stimuli at times. Does not appear to be endorsing any overtly bizarre or paranoid ideation during this interview or at this time. Judgment: fair Insight: fair Orientation: Alert and orientated 3 Cognition: Grossly normal Recent and remote memory: Intact Attention span and concentration: Intact Fund of knowledge: Adequate Mood: "okay" Affect: Euthymic with a full range Diagnoses Schizophrenia Alcohol use disorder, severe Cannabis use disorder, severe Unspecified depressive disorder Assessment and Plan The patient a 39 year old man with a history of schizophrenia presents after stopping his medications and utilizing a fair amount of substances. He has been making some improvements since admission and denies any significant problems with his medications at the time. Continue Haldol 10 mgs BID and Quetiapine 200 mgs at night as well as amantadine 200 mg BID. Patient will be due for his Invega three-month depo shot that his mother will bring in for him. Disposition Patient still requires an inpatient admission in order to resume on his medications. His long history of schizophrenia and psychosis as well as substance abuse makes his chances of returning at this time without being properly resumed on his medication with an effective discharge plan quite high. Time Spent 15 minutes face to face Thursday Vital Signs Vital Signs Date Time Temp Pulse Resp B/P (MAP) Pulse Ox O2 Delivery O2 Flow Rate FiO2 05/14/19 06:47 97.3 84 14 104/70 (81) 05/10/19 19:48 99 05/10/19 13:33 Room Air Current Medications Current Medications Acetaminophen (Tylenol Tab) 650 mg Q6HP PRN PO HEADACHE or DISCOMFORT Last administered on 05/14/19at 12:40; Start 05/10/19 at 19:15 Al Hydrox/Mg Hydrox/Simethicone (Mylanta) 30 ml Q4HP PRN PO HEARTBURN/INDIGESTION; Start 05/10/19 at 19:15 Amantadine HCl (Symmetrel) 200 mg BID PO Last administered on 05/14/19at 09:16; Start 05/11/19 at 21:00 Haloperidol (Haldol) 10 mg BID PO Last administered on 05/14/19at 09:16; Start 05/13/19 at 09:00 Haloperidol (Haldol) 10 mg Q4HP PRN PO AGITATION; Start 05/13/19 at 10:45 Home Med (Med Rec Complete!) ASDIRECTED XX ; Start 05/10/19 at 19:15; Stop 05/10/19 at 19:15; Status DC Magnesium Hydroxide (Milk Of Magnesia) 30 ml DAILYPRN PRN PO CONSTIPATION; Start 05/10/19 at 19:15 Miscellaneous (Unresolved Clarification Entry) SEE LABEL COMMENTS UNRESOLVED XX ; Start 05/12/19 at 00:01; Stop 05/12/19 at 14:26; Status DC Olanzapine (ZyPREXA) 5 mg Q4HP PRN PO AGITATION; Start 05/10/19 at 19:15; Status Cancel Quetiapine Fumarate (SEROquel) 200 mg QHS PO Last administered on 05/13/19at 22:03; Start 05/11/19 at 21:00 Trazodone HCl (Desyrel) 50 mg QHSP PRN PO INSOMNIA; Start 05/10/19 at 19:15 Allergies Coded Allergies: PERFUMES (Verified Allergy, Unknown, 04/21/18) RENEE MARTINES DO May 14, 2019 14:25
[2019-05-14 18:00] VITALS: BP 100/60
[2019-05-14] MEDS: QUEtiapine FUMARATE 200 MG TAB PO SCH (22:16)
[2019-05-15 06:52] VITALS: BP 117/61
[2019-05-15] MEDS: AMANTADINE 100 MG CAP PO SCH ×2 (08:53→21:00)
[2019-05-15] MEDS: HALOPERIDOL 10 MG TAB PO SCH ×2 (08:53→21:00)
[2019-05-15] MEDS: ACETAMINOPHEN TAB 650MG DOSE (2X325MG) PO PRN (16:53)
[2019-05-15 18:00] VITALS: BP 102/68
[2019-05-15] MEDS: QUEtiapine FUMARATE 200 MG TAB PO SCH (21:00)
[2019-05-16 06:52] VITALS: BP 132/79
[2019-05-16] MEDS ORDERED: AMAN100T PO (08:43)
[2019-05-16] MEDS ORDERED: HALO10TA20 PO (08:43)
[2019-05-16] MEDS ORDERED: QUET1TAB9 PO (08:43)
--- NOTE | 2019-05-16 08:45 | MHDSPDOC ---
[facility] Discharge Summary Discharge Summary DATE OF ADMISSION: May 10, 2019 at 7:42 pm DATE OF DISCHARGE: May 16, 2019 DISCHARGE DIAGNOSES: Paranoid Schizophrenia depression unspecified alcohol use d/o cannabis use d/o REASON FOR ADMISSION:Patient is a 39 -year-old , male, with a history of paranoid schizophrenia and multiple admission to [facility] most for invega trinza shot due to missing outpatient most recently who self-presented to the ED endorsing SI with no plan and depression due to family issues involving his daughter that he has been self medicating with alcohol and staying in bed all day. Bal on admission 0.051 and utox positive cannabis. CONSULTS: none HOSPITAL COURSE: Pt admitted to the to the inpatient psychiatric unit, seen for psychiatric assessment, and restarted on outpatient medications of seroquel 200mg nightly, amantidine 200mg daily. He was given his outpatient invega Trinza dose that his mother brought in and tolerated it well with improvement of symptoms to his baseline. He received abilif aristada 1,064 IM outpatient prior his admission. He was started on haldol 10mg bid for agitation and psychosis during his stay with improvement of symptoms. Pt's symptoms improved with treatment back to his baseline status. He participated in groups that he found beneficial. He was compliant with his meds. He was discharge home after meeting with his outpatient CM with follow-up at the community clinic. He denied depression, anxiety, insomnia, SI/HI upon discharge. His AH were improved to baseline ("quiet"). Denied delusions, paranoia. DISCHARGE ASSESSMENT: Pt seen and states he feels good today and his AH are "better" and not command in form. States he's looking forward to going home today. Attention is at his baseline and good and he doesn't appear grossly disorganized as he can hold a logical/linear conversation based on interview questions. States his medications are beneficial and tolerating them well. Denies depression, anxiety, insomnia, SI/HI. His AH were improved to baseline ("quiet"). He feels safe to be discharged home today. He has a very supportive mother. MENTAL STATUS EXAMINATION ON DISCHARGE: General Appearance: well groomed, appears stated age, hospital scrubs/clothing Build: average Demeanor: average, other (pleasant) Eye Contact: average Activity: average Behavior: cooperative Speech: clear, reg/rate,rhythm,volume, spontaneous Mood: euthymic Mood ok Affect: full, appropriate, congruent Thought Process: logical/linear, concrete Thought Content (Delusions): other (AH non command , "quiet" and appear baseline). Denies SI/HI) Thought Content (Other): internal-stimuli, coherent Thought Content (Aggressive): none reported Perception (Hallucinations): auditory "quiet" and baseline Perception (Other): none reported Cognition (Impairment of): fair attention/concentration, ability to abstract (baseline) Cognition(Intelligence Est.): borderline Oriented: Awake, Alert, Oriented times three Judgment: Fair Psychosis: mild Abstract Thinking, Psychotic Perceptions (baseline) MEDICATIONS ON DISCHARGE: invega trinza 819mg im q3mo seroquel 200mg qhs amantidine 200mg daily haldol 10mg bid abilify aristada 1,064 IM q8wks PLAN/FOLLOWUP ARRANGEMENTS: Discharge home after meeting with CM. Follow-up at the community clinic. The amount of time spent in the coordination of care for this patient was approximately 30 minutes. Vital Signs/I&Os Vital Signs Date Time Temp Pulse Resp B/P (MAP) Pulse Ox O2 Delivery O2 Flow Rate FiO2 05/16/19 06:52 98.1 89 14 132/79 (96) 05/15/19 06:52 18 05/10/19 13:33 Room Air Medications Scheduled Amantadine HCl (Amantadine) 100 Mg Tablet, 200 MG PO DAILY for eps, #10 Aripiprazole Lauroxil (Aristada) 1,064 Mg/3.9 Ml Inj, 3.9 ML IM [id number], (Reported) Haloperidol (Haloperidol) 10 Mg Tablet, 10 MG PO BID for schizophrenia, #20 Haloperidol Decanoate (Haloperidol Decanoate) 100 Mg/Ml Soln, 100 MG IM QMONTH for PSYCHOSIS, (Reported) Paliperidone Palmitate (Invega Trinza) 819 Mg/2.625 Ml Inj, 819 MG IM Q3M for PSYCHOSIS, (Reported) Quetiapine Fumarate (Quetiapine Fumarate) 200 Mg Tablet, 200 MG PO QHS for schizophrenia, #10 Allergies Coded Allergies: PERFUMES (Verified Allergy, Unknown, 04/21/18) DIANA DONIS DO May 16, 2019 8:45 am
[2019-05-16] MEDS: HALOPERIDOL 10 MG TAB PO SCH (09:16)
[2019-05-16] MEDS: AMANTADINE 100 MG CAP PO SCH (09:16)
[2019-05-16] MEDS: ACETAMINOPHEN TAB 650MG DOSE (2X325MG) PO PRN (12:05)
== END 2019-05-16 16:03 | disposition home or self-care (01) | DRG 750 ==
LOC: M ED 19:41 → M ED INP 19:42 → M PSY 19:57
PROVIDERS: ADMIT Psychiatry & Neurology Psychiatry; ATTEND Psychiatry & Neurology Psychiatry
DX: F20.0 Paranoid schizophrenia (principal); Z91.14 Patient's other noncompliance with medication regimen; R45.851 Suicidal ideations; F32.9 Major depressive disorder, single episode, unspecified; F10.10 Alcohol abuse, uncomplicated; F12.90 Cannabis use, unspecified, uncomplicated; Z79.899 Other long term (current) drug therapy; F17.200 Nicotine dependence, unspecified, uncomplicated

== ENCOUNTER 2019-05-22 05:17 | Inpatient (IN) | payer MEDICAID ==
[~2019-05-22] VITALS: Ht 175.3 cm; Wt 52.1 kg
[~2019-05-22 05:17] MED LIST changes: +AMAN100T PO; -QUET1TAB9 PO; +QUET200T2 PO; -TRAZ10TA PO; +TRAZ1TAB12 PO
[2019-05-22 05:55] LABS: HEMATOCRIT 42.8 % (42.0-52.0); MEAN CORPUSCULAR HEMOGLOBIN 30.3 pg (27.0-33.0); MEAN CORPUSCULAR HGB CONC 32.7 g/dl (32.0-36.5); MEAN CORPUSCULAR VOLUME 92.6 fl (80.0-96.0); PLATELET COUNT, AUTOMATED 268 10^3/uL (150-450); RED BLOOD COUNT 4.62 10^6/uL (4.30-6.10); WHITE BLOOD COUNT 9.2 10^3/uL (4.0-10.0)
[2019-05-22 06:40] LABS: ALBUMIN 3.2 GM/DL (3.2-5.2); ALT/SGPT 23 U/L (12-78); BILIRUBIN,DIRECT 0.2 MG/DL (0.0-0.2); BILIRUBIN,TOTAL 0.5 MG/DL (0.2-1.0); BLOOD UREA NITROGEN 13 MG/DL (7-18); CARBON DIOXIDE LEVEL 26 MEQ/L (21-32); CHLORIDE LEVEL 110 MEQ/L (98-107); CREATININE FOR GFR 1.01 MG/DL (0.70-1.30); GLOMERULAR FILTRATION RATE > 60.0 (>60); GLUCOSE, FASTING 110 MG/DL (70-100); POTASSIUM SERUM 3.9 MEQ/L (3.5-5.1); SALICYLATE LEVEL < 1.7 MG/DL (5.0-30.0); SODIUM LEVEL 144 MEQ/L (136-145); TOTAL PROTEIN 6.7 GM/DL (6.4-8.2)
[2019-05-22 06:41] LABS: ACETAMINOPHEN LEVEL < 2.0 UG/ML (10.0-30.0); ETHYL ALCOHOL (ETHANOL) < 0.003 % (0.000-0.010)
[2019-05-22 07:48] LABS: LITHIUM LEVEL < 0.20 MEQ/L (0.60-1.20)
[2019-05-22 08:25] LABS: AMPHETAMINES LEVEL URINE NEGATIVE (NEGATIVE); BARBITURATES URINE NEGATIVE (NEGATIVE); BENZODIAZEPINES URINE NEGATIVE (NEGATIVE); CANNABINOIDS URINE POSITIVE (NEGATIVE); COCAINE METABOLITE URINE NEGATIVE (NEGATIVE); METHADONE URINE NEGATIVE (NEGATIVE); OPIATES URINE NEGATIVE (NEGATIVE); PHENCYCLIDINE URINE NEGATIVE (NEGATIVE)
[2019-05-22] MEDS ORDERED: MOM 30ML SUSPENSION UDC PO PRN (09:00)
[2019-05-22] MEDS ORDERED: ACETAMINOPHEN TAB 650MG DOSE (2X325MG) PO PRN (09:00)
[2019-05-22] MEDS ORDERED: MAALOX 30 ML SUSP *UDC PO PRN (09:00)
[2019-05-22] MEDS ORDERED: HALO10TA20 PO (09:09)
[2019-05-22] MEDS ORDERED: AMAN100T PO (09:09)
[2019-05-22] MEDS ORDERED: QUET200T2 PO (09:09)
[2019-05-22 11:33] VITALS: BP 129/87
[2019-05-22] MEDS: NICOTINE 21MG/24HR 1 EA TRANSDERMAL TD SCH (12:50)
--- NOTE | 2019-05-22 17:04 | HPEPDOC ---
General Date of Admission May 22, 2019 at 08:55 Date of Service: May 22, 2019 Chief Complaint The patient is a 39-year-old male admitted with a reason for visit of Schizoaffective Disorder. History of Present Illness 39-year-old male with past medical history of psych disorder presented to the ER with a chief complaint of suicidal ideations. He has been admitted to the inpatient mental health unit for further psychiatric stabilization. At this time, the patient denies any complaints of fevers, chills, chest pain, palpitations, abdominal pain, or any nausea/vomiting/diarrhea. Home Medications Scheduled Amantadine HCl (Amantadine) 100 Mg Tablet, 200 MG PO QHS, (Reported) Aripiprazole Lauroxil (Aristada) 1,064 Mg/3.9 Ml Inj, 3.9 ML IM [id number], (Reported) Haloperidol (Haloperidol) 10 Mg Tablet, 10 MG PO BID, (Reported) Haloperidol Decanoate (Haloperidol Decanoate) 100 Mg/Ml Soln, 100 MG IM QMONTH for PSYCHOSIS, (Reported) Paliperidone Palmitate (Invega Trinza) 819 Mg/2.625 Ml Inj, 819 MG IM Q3M for PSYCHOSIS, (Reported) Quetiapine Fumarate (Quetiapine Fumarate) 200 Mg Tablet, 200 MG PO QHS, (Reported) Allergies Coded Allergies: PERFUMES (Verified Allergy, Unknown, 04/21/18) Past Medical History Medical History As noted in HPI. Social History * Smoker: current smoker Alcohol: other (patient admits to drinking 2-3 pints of alcohol daily, states that his last drink was over a week ago) Drugs: marijuana Review of Systems Other systems 10 point review of systems negative unless otherwise specified in HPI. Physical Examination General Exam: Positive: Alert, Cooperative, No Acute Distress ENT Exam: Positive: Atraumatic, Mucous membr. moist/pink Neck Exam: Negative: JVD Chest Exam: Positive: Clear to auscultation, Normal air movement Heart Exam: Positive: Rate Normal, Normal S1, Normal S2 Abdomen Exam: Positive: Soft; Negative: Tenderness Extremity Exam: Negative: Tenderness, Swelling Psych Exam: Positive: Oriented x 3 Vital Signs Vital Signs Date Time Temp Pulse Resp B/P (MAP) Pulse Ox O2 Delivery O2 Flow Rate FiO2 05/22/19 11:33 98.4 75 12 129/87 (101) 97 05/22/19 10:31 Room Air Laboratory Data Labs 24H Laboratory Tests 2 05/22/19 05:40: Nucleated Red Blood Cells % (auto) 0.0, Anion Gap 8, Glomerular Filtration Rate > 60.0, Calcium Level 9.0, Aspartate Amino Transf (AST/SGOT) 22, Alanine Aminotransferase (ALT/SGPT) 23, Alkaline Phosphatase 56, Total Bilirubin 0.5, Direct Bilirubin 0.2, Total Protein 6.7, Albumin 3.2, Albumin/Globulin Ratio 0.91L, Thyroid Stimulating Hormone (TSH) 2.290, Salicylates Level < 1.7L, Acetaminophen Level < 2.0L, [place] Level < 0.20L, Ethyl Alcohol Level < 0.003 05/22/19 07:54: Urine Amphetamines Screen NEGATIVE, Urine Benzodiazepines Screen NEGATIVE, Urine Opiates Screen NEGATIVE, Urine Methadone Screen NEGATIVE, Urine Barbiturates Screen NEGATIVE, Urine Phencyclidine Screen NEGATIVE, Urine Cocaine Metabolite Screen NEGATIVE, Urine Cannabinoids Screen POSITIVEH CBC/BMP Laboratory Tests 05/22/19 05:40 Red Blood Count 4.62, Mean Corpuscular Volume 92.6, Mean Corpuscular Hemoglobin 30.3, Mean Corpuscular Hemoglobin Concent 32.7, Red Cell Distribution Width 13.4 Plan / VTE VTE Prophylaxis Ordered?: No VTE Exclusion Mechanical Proph: Low Risk for VTE Plan Plan Suicidal ideations Psychiatric stabilization as per psychiatry Heartburn/indigestion Mylanta when necessary MARSHA MERIDA MD May 22, 2019 17:04
[2019-05-22 20:00] VITALS: BP 129/75
[2019-05-22] MEDS: traZODone 50 MG TAB PO PRN (21:06)
[2019-05-23 06:13] VITALS: BP 101/70
[2019-05-23] MEDS: NICOTINE 21MG/24HR 1 EA TRANSDERMAL TD SCH (08:34)
--- NOTE | 2019-05-23 10:32 | MHIPNPDOC ---
[facility] Progress Note Progress Note DATE OF SERVICE: 05/23/19 HISTORY: Patient is a 39 -year-old , male, with a history of paranoid schizophrenia and multiple admission to [facility] (recently d/c 05/16/19) most for invega trinza shot due to missing outpatient most recently who self- presented to the ED endorsing SI with no plan and appearing to be psychotic and responding to internal stimuli. His utox was positive for cannabis. VITAL SIGNS: See below. NEW TEST RESULTS: utox pos cannabis. CURRENT MEDICATIONS: See below. MENTAL STATUS EXAMINATION: General Appearance: well groomed, appears stated age, hospital scrubs/clothing Build: average Demeanor: cooperative Eye Contact: fair Activity: cooperative, baseline for pt Behavior: cooperative Speech: reg/rate,rhythm,volume Mood: euthymic, full Mood "fine" Affect: appropriate, congruent, slightly disorganized (at baseline) Thought Process: concrete Thought Content (Delusions): denies SI/HI Thought Content (Other): internal-stimuli at his baseline Perception (Hallucinations): auditory at his baseline Perception (Other): none reported Cognition (Impairment of): attention/concentration, ability to abstract Cognition(Intelligence Est.): borderline Oriented: Awake, Alert, Oriented times three Insight: fair Judgment: Fair Psychosis: Associations, Abstract Thinking, Psychotic Perceptions, Other (all at baseline) DIAGNOSES: Paranoid Schizophrenia cannabis use d/o ASSESSMENT:Pt seen and states he feels "fine" and is here b/c he was talking to himself which is something that is baseline for him. He appears at his baseline, sitting at a desk in his room writing on paper which is baseline behavior for him. Endorses baseline AH. Compliant with meds and staff. States he feels safe here. Denies SI/HI. Encouraged to attend groups daily. MANAGEMENT PLAN: continue plan invega trinza 819mg im qmonth give previous admission abilify aristada 1,064mg im q2mo given outpatient and not due for redosing seroquel 200mg qhs amantidine 200mg bid haldol 10mg bid haldol 10mg q4hr prn anxiety/agitation TIME SPENT: 30 minutes. Vital Signs Vital Signs Date Time Temp Pulse Resp B/P (MAP) Pulse Ox O2 Delivery O2 Flow Rate FiO2 05/23/19 06:13 98.3 83 18 101/70 (80) 05/22/19 11:33 97 05/22/19 10:31 Room Air Current Medications Current Medications Acetaminophen (Tylenol Tab) 650 mg Q6HP PRN PO HEADACHE or DISCOMFORT; Start 05/22/19 at 09:00 Al Hydrox/Mg Hydrox/Simethicone (Mylanta) 30 ml Q4HP PRN PO HEARTBURN/INDIGESTION; Start 05/22/19 at 09:00 Home Med (Med Rec Complete!) ASDIRECTED XX ; Start 05/22/19 at 09:15; Stop 05/22/19 at 09:15; Status DC Magnesium Hydroxide (Milk Of Magnesia) 30 ml DAILYPRN PRN PO CONSTIPATION; Start 05/22/19 at 09:00 Nicotine (Nicoderm Cq 21mg) 1 patch DAILY TD Last administered on 05/23/19at 08:34; Start 05/22/19 at 09:00 Trazodone HCl (Desyrel) 50 mg QHSP PRN PO INSOMNIA Last administered on 05/22/19at 21:06; Start 05/22/19 at 09:00 Allergies Coded Allergies: PERFUMES (Verified Allergy, Unknown, 04/21/18) DIANA DONIS DO May 23, 2019 9:35 am
[2019-05-23 18:00] VITALS: BP 104/74
[2019-05-23] MEDS: traZODone 50 MG TAB PO PRN (22:49)
[2019-05-24 06:37] VITALS: BP 118/81
--- NOTE | 2019-05-24 08:34 | MHDSPDOC ---
[facility] Discharge Summary Discharge Summary DATE OF ADMISSION: May 22, 2019 at 8:55 am DATE OF DISCHARGE: May 24, 2019 DISCHARGE DIAGNOSES: Paranoid Schizophrenia cannabis use d/o REASON FOR ADMISSION:Patient is a 39 -year-old , male, with a history of paranoid schizophrenia and multiple admission to [facility] (recently d/c 05/16/19) most for invega trinza shot due to missing outpatient most recently who self-presented to the ED endorsing SI with no plan and appearing to be psychotic and responding to internal stimuli. His utox was positive for cannabis. CONSULTS: none HOSPITAL COURSE: Pt admitted to the to the inpatient psychiatric unit, seen for psychiatric assessment, and restarted on outpatient medications of seroquel 200mg nightly, amantidine 200mg daily, haldol 10mg bid. He was given his outpatient invega Trinza dose during his last admission. He received abilify aristada 1,064 IM outpatient prior his admission. Pt's symptoms improved with treatment back to his baseline status. He participated in groups that he found beneficial. He was compliant with his meds. He was discharge home after meeting with his outpatient CM with follow-up at the community clinic. He denied depression, anxiety, insomnia, SI/HI upon discharge. His AH were improved to baseline ("quiet"). Denied delusions, paranoia. DISCHARGE ASSESSMENT: Pt seen and states he feels good today and his AH are "better" and not command in form. States he's looking forward to going home today. Attention is at his baseline and good and he doesn't appear grossly disorganized as he can hold a logical/linear conversation based on interview questions. States his medications are beneficial and tolerating them well. Denies depression, anxiety, insomnia, SI/HI. His AH were improved to baseline ("quiet"). He feels safe to be discharged home today. He has a very supportive mother. MENTAL STATUS EXAMINATION ON DISCHARGE: General Appearance: well groomed, appears stated age, hospital scrubs/clothing Build: average Demeanor: average, other (pleasant) Eye Contact: average Activity: average Behavior: cooperative Speech: clear, reg/rate,rhythm,volume, spontaneous Mood: euthymic Mood ok Affect: full, appropriate, congruent Thought Process: logical/linear, concrete Thought Content (Delusions): other (AH non command , "quiet" and appear baseline). Denies SI/HI) Thought Content (Other): internal-stimuli, coherent Thought Content (Aggressive): none reported Perception (Hallucinations): auditory "quiet" and baseline Perception (Other): none reported Cognition (Impairment of): fair attention/concentration, ability to abstract (baseline) Cognition(Intelligence Est.): borderline Oriented: Awake, Alert, Oriented times three Judgment: Fair Psychosis: mild Abstract Thinking, Psychotic Perceptions (baseline) MEDICATIONS ON DISCHARGE: invega trinza 819mg im q3mo seroquel 200mg qhs amantidine 200mg daily haldol 10mg bid abilify aristada 1,064 IM q8wks PLAN/FOLLOWUP ARRANGEMENTS: Discharge home with follow-up at the community clinic. The amount of time spent in the coordination of care for this patient was approximately 30 minutes. Vital Signs/I&Os Vital Signs Date Time Temp Pulse Resp B/P (MAP) Pulse Ox O2 Delivery O2 Flow Rate FiO2 05/24/19 06:37 98.0 81 14 118/81 (93) 05/22/19 11:33 97 05/22/19 10:31 Room Air Medications Scheduled Amantadine HCl (Amantadine) 100 Mg Tablet, 200 MG PO QHS, (Reported) Aripiprazole Lauroxil (Aristada) 1,064 Mg/3.9 Ml Inj, 3.9 ML IM [id number], (Reported) Haloperidol (Haloperidol) 10 Mg Tablet, 10 MG PO BID, (Reported) Haloperidol Decanoate (Haloperidol Decanoate) 100 Mg/Ml Soln, 100 MG IM QMONTH for PSYCHOSIS, (Reported) Paliperidone Palmitate (Invega Trinza) 819 Mg/2.625 Ml Inj, 819 MG IM Q3M for PSYCHOSIS, (Reported) Quetiapine Fumarate (Quetiapine Fumarate) 200 Mg Tablet, 200 MG PO QHS, (Reported) Allergies Coded Allergies: PERFUMES (Verified Allergy, Unknown, 04/21/18) DIANA DONIS DO May 24, 2019 8:34 am
[2019-05-24] MEDS: NICOTINE 21MG/24HR 1 EA TRANSDERMAL TD SCH (09:00)
--- NOTE | 2019-05-24 12:42 | MHHPE ---
DATE OF ADMISSION: 05/22/2019 CHIEF COMPLAINT: Says has been hearing voices. SUBJECTIVE: He is [id number] and has history of paranoid schizophrenia. He has had several inpatient hospitalizations, most recently earlier this month, 05/10/2019 to 05/16/2019. Please see Dr. Xiao discharge summary. He was discharged on long acting aripiprazole, Haldol orally, Haldol Decanoate, paliperidone intramuscular and quetiapine as well by mouth. He says he felt suicidal and has been hearing voices, had thought of killing himself, but does not go into details. PAST PSYCHIATRIC HISTORY: Please refer to previous summaries. He was recently discharged, has had several hospitalizations, including this year here. MENTAL STATUS EXAMINATION: Neat. Cooperative, though somewhat superficially, poor eye contact, looks at a piece of paper, and talks about the voices he hears, somewhat vague on that, has suicidal thoughts, vague on plans as well. No agitation as such. No psychomotor retardation, with a restricted affect. At present does not appear to be internally preoccupied. No delusions elicited. Cognition grossly intact. Judgment and insight are compromised. ASSESSMENT: Schizophrenia. Alcohol use disorder. Cannabis use disorder. Has symptoms of psychosis, though somewhat vague on this at present. He has been on Abilify (ARISTADA) prior to recent admission earlier in May, and at some point had been given Invega Trinza as well. PLAN: He is admitted to the inpatient psychiatry unit and placed on relevant precautions. I would suggest obtaining collateral information, continuing current oral medications, but reassessing the requirement for more than one intramuscular long acting antipsychotic. He is to be encouraged to participate in activities in the unit. He has been seen by the department of medicine. He is to be discharged with followup once he is stable. May need to consider [facility] care, given lack of success of his functioning in the community. Further recommendations will be made when he sees the treatment and psychiatrist tomorrow.
--- NOTE | 2019-05-25 14:36 | IPN ---
DATE: 05/23/2019 He was admitted to the inpatient mental health unit for schizoaffective disorder. He had just recently been discharged approximately 6 days prior. He was readmitted for further psychiatric stabilization. ALLERGIES: PERFUMES. See history and physical for further details on the admission. Here today for followup of admission complaints of heartburn. Mylanta was ordered as needed. Per the patient, he did not require, he has no heartburn, he has not had to use it. He is aware that he has it available should he need to request it. Otherwise he was doing well and had no complaints. OBJECTIVE: Blood pressure 101/70, pulse 83, respirations 18, temperature 98.3. The patient is alert and oriented times three. Good affect. Pharynx: Tongue and gums pink and moist. Tongue is midline. Neck: Supple without lymphadenopathy. Chest: Clear to auscultation. Heart: Heart is regular. Abdomen: Benign. Bowel sounds are positive. Genital/Rectal: Not done. Extremities: Full range of motion. Skin: Warm and dry. Turgor good. Peripheral pulses: Equal and palpable bilaterally. IMPRESSION AND PLAN: Psychiatric plan per psychiatry. Complained of heartburn, resolved. Will continue to have on hand Mylanta as needed as ordered should it be needed. We will be glad to re-consult for any other medical issues that may arise.
== END 2019-05-24 10:35 | disposition home or self-care (01) | DRG 750 ==
LOC: M ED 05:17 → M ED INP 08:55 → M PSY 10:36
PROVIDERS: ADMIT Psychiatry & Neurology Psychiatry; ATTEND Psychiatry & Neurology Psychiatry
DX: F20.0 Paranoid schizophrenia (principal); R45.851 Suicidal ideations; F12.90 Cannabis use, unspecified, uncomplicated; Z79.899 Other long term (current) drug therapy; F17.200 Nicotine dependence, unspecified, uncomplicated; F10.10 Alcohol abuse, uncomplicated

== ENCOUNTER 2019-06-04 18:36 | Emergency (ER) | payer MEDICAID, OTHER ==
[~2019-06-04] VITALS: Ht 175.3 cm; Wt 72.7 kg
[~2019-06-04 18:36] MED LIST changes: +TRAZ10TA PO; -TRAZ1TAB12 PO
[2019-06-04 18:37] VITALS: BP 118/77
[2019-06-04] MEDS ORDERED: [UNRECOGNIZED DRUG - CODE] TOP (19:26)
== END 2019-06-04 19:47 | disposition home or self-care (01) ==
LOC: M ED 18:36
DX: B35.3 Tinea pedis (principal); I10 Essential (primary) hypertension; F17.210 Nicotine dependence, cigarettes, uncomplicated; Z79.899 Other long term (current) drug therapy; Z91.048 Other nonmedicinal substance allergy status

== ENCOUNTER 2019-06-06 17:41 | Inpatient (IN) | payer MEDICAID, OTHER ==
[~2019-06-06] VITALS: Ht 175.3 cm; Wt 62.7 kg
[~2019-06-06 17:41] MED LIST changes: +QUET1TAB9 PO; -QUET200T2 PO; +[UNRECOGNIZED DRUG - CODE] TOP
[2019-06-06 19:09] LABS: HEMATOCRIT 41.1 % (42.0-52.0); HEMOGLOBIN 13.7 g/dl (13.5-17.5); MEAN CORPUSCULAR HEMOGLOBIN 30.3 pg (27.0-33.0); MEAN CORPUSCULAR HGB CONC 33.3 g/dl (32.0-36.5); MEAN CORPUSCULAR VOLUME 90.9 fl (80.0-96.0); PLATELET COUNT, AUTOMATED 281 10^3/uL (150-450); RED BLOOD COUNT 4.52 10^6/uL (4.30-6.10); WHITE BLOOD COUNT 7.9 10^3/uL (4.0-10.0)
[2019-06-06] MEDS ORDERED: [UNRECOGNIZED DRUG - CODE] TOP (19:24)
[2019-06-06 19:32] LABS: AMPHETAMINES LEVEL URINE NEGATIVE (NEGATIVE); BARBITURATES URINE NEGATIVE (NEGATIVE); BENZODIAZEPINES URINE NEGATIVE (NEGATIVE); CANNABINOIDS URINE POSITIVE (NEGATIVE); COCAINE METABOLITE URINE NEGATIVE (NEGATIVE); METHADONE URINE NEGATIVE (NEGATIVE); OPIATES URINE NEGATIVE (NEGATIVE); PHENCYCLIDINE URINE NEGATIVE (NEGATIVE)
[2019-06-06 19:53] LABS: ACETAMINOPHEN LEVEL < 2.0 UG/ML (10.0-30.0); ALBUMIN 3.5 GM/DL (3.2-5.2); ALT/SGPT 25 U/L (12-78); BILIRUBIN,DIRECT 0.1 MG/DL (0.0-0.2); BILIRUBIN,TOTAL 0.5 MG/DL (0.2-1.0); BLOOD UREA NITROGEN 11 MG/DL (7-18); CALCIUM LEVEL 8.9 MG/DL (8.5-10.1); CARBON DIOXIDE LEVEL 28 MEQ/L (21-32); CHLORIDE LEVEL 107 MEQ/L (98-107); CREATININE FOR GFR 1.13 MG/DL (0.70-1.30); ETHYL ALCOHOL (ETHANOL) < 0.003 % (0.000-0.010); GLOMERULAR FILTRATION RATE > 60.0 (>60); GLUCOSE, FASTING 128 MG/DL (70-100); POTASSIUM SERUM 3.8 MEQ/L (3.5-5.1); SALICYLATE LEVEL 2.1 MG/DL (5.0-30.0); SODIUM LEVEL 141 MEQ/L (136-145); THYROID STIMULATING HORMONE 0.349 uIU/ML (0.358-3.740)
[2019-06-06] MEDS ORDERED: MAALOX 30 ML SUSP *UDC PO PRN (21:30)
[2019-06-06] MEDS ORDERED: MOM 30ML SUSPENSION UDC PO PRN (21:30)
[2019-06-06] MEDS ORDERED: ACETAMINOPHEN TAB 650MG DOSE (2X325MG) PO PRN (21:30)
[2019-06-06] MEDS: HALOPERIDOL 10 MG TAB PO SCH (23:05)
[2019-06-06] MEDS: QUEtiapine FUMARATE 200 MG TAB PO SCH (23:05)
[2019-06-06] MEDS: AMANTADINE 100 MG CAP PO SCH (23:06)
[2019-06-07 01:17] VITALS: BP 109/70
[2019-06-07] MEDS: HALOPERIDOL 10 MG TAB PO SCH ×2 (09:11→21:35)
[2019-06-07] MEDS: NICOTINE 21MG/24HR 1 EA TRANSDERMAL TD SCH (09:11)
--- NOTE | 2019-06-07 11:27 | MHHPEPDOC ---
General Date Of Admission: Jun 06, 2019 Legal Status: 9.39 Chief Complaint "I'm hearing voices to harm myself" History of Present Illness HISTORY OF THE PRESENT ILLNESS: Patient is a 39 -year-old , male, with a history of paranoid schizophrenia and multiple admission to [facility] for invega trinza shot due to missing outpatient most recently who self- presented to the ED endorsing SI with plan to cut or hang self secondary to AH that are "clapping," "thumping," and telling him to harm himself. Utox positive cannabis. Psychiatric Review of Systems Depression (2 or more weeks): suicidal thoughts Laura (4 or more days of): grandiosity, flight of ideas, distractibility Psychosis: auditory hallucination, delusions, disorganization PTSD: denies Anxiety: situational anxiety, stressor related anxiety Anxiety/ 6 months or more of: restlessness, keyed up, difficulty concentrating, irritability Past Psychiatric History Previous Psychiatric Diagnosis: Paranoid Schizophrenia. Previous Psychiatric Admissions: several to [facility], last discharge 05/13/19 and 05/24/19 for similar complaint; substance abuse treatment a number of times in the past Suicide Attempts: denies. Psychiatric Follow-up: [facility] Psychiatric medications: Aristada, seroquel, Invega Trinza, amatidine, haldol dec Past Medical History Medical Problems denies Head Injury: Yes (concussion at 21y/o) Seizures: No Hospitalizations: No Surgeries: No Family Medical/Psychiatric HX Medical Problems noncontributory Psychiatric Disorders: Yes (family hx of schizophrenia) Addiction: No Suicide Attemps/Completions: No Addiction History nicotine, alcohol (on and off), cocaine (on and off), other (utox positive c annabis) Social History Childhood: born and raised in [place] by his mother, normal childhood development. Abuse/Trauma: unknown. Current Living Situation: lives alone in apt Education: 10th grade edu. Employment: SSDI. Social Support: mother. Legal: denies. Marital: single, one daughter living with her mother Mental Status Examination General Appearance: well groomed, appears stated age, hospital scubs/clothing Build: average Demeanor: average, preoccupied Eye Contact: fair Activity: average Behavior: cooperative, other (disorganized but pleasant, limited attention) Speech: clear, reg/rate,rhythm,volume, non-spontaneous Mood: euthymic Mood "OK" Affect: full, inappropriate, disorganized Thought Process: concrete, tangential, associative, flight of ideas, other (at baseline) Thought Content (Delusions): paranoia (mild), delusions (mild), other (denies SI/HI, positive AH, no VH, appears at baseline status) Thought Content (Other): preoccupied, obsessional (writing random words from books that are nonsensical and reading text for specific words), ideas of reference, internal-stimuli, appears paranoid, other (all symptoms mild and at baseline) Perception (Hallucinations): auditory (mild, at baseline, non-command) Perception (Other): none reported Cognition (Impairment of): attention/concentration, ability to abstract, other (baseline statis) Cognition(Intelligence Est.): borderline Oriented: Awake, Alert, Oriented times three Insight: fair, other (knows when to get help) Judgment: Fair, Other (knows when to get help) Psychosis: Associations, Abstract Thinking, Psychotic Perceptions, Other (baseline status) Diagnoses Paranoid Schizophrenia depression unspecified cannabis use d/o A-FIB/CHADSVASC A-FIB History Current/History of A-Fib/PAF?: No Current PO Anticoag Therapy: No Treatment Treatment ordered: NONE Reason Anticoagulant not given: Not indicated/[id number] Assessment Pt seen and states he feels better today and doesn't know why he's here again. Responding to internal stimuli that appear mild and at their baseline. Limited ability to maintain attention so interview short as is normal for the pt. Per staff Haldol dec qmonthly due so will administer today here which pt agrees to. He is pleasant and cooperative. Otherwise has baseline AH that are non-command and preoccupation with writing on paper although does appear to be doing very well regarding ability to maintain attention and listen then respond appropriately. States he's tolerating his Aristada (given 04/29/19), Invega Trinza (given 05/13/19), oral haldol, seroquel, and amantidine that are all beneficial and will restart oral haldol, seroquel, and amantine here. States he feels safe here. Denies SI/HI. Encouraged to attend groups daily. Initial Treatment Plan 1. Patient was admitted on a 9.39 status. 2. Complete history was obtained. 3. With patients permission, family will be contacted and database will be expanded. 4. Patients medication regimen will be reviewed and changed accordingly. 5. Patient will be provided with protected environment. 6. Patient will be treated with individual, group, and milieu therapies. 7. Patient will receive supportive psych-education. 8. Discharge planning will commence immediately. 9. Outpatient follow-up treatment will be strongly recommended. 10. The initial treatment plan will focus initially on: Depression. Risk for suicide. Substance abuse. 11. Give Haldol dec as is due, restart outpatient oral haldol, seroquel, and amantidine ESTIMATED LENGTH OF STAY: 3-5 DAYS. TIME SPENT COUNSELING AND COORDINATING INITIAL CARE: 60 minutes. Vital Signs Vital Signs Date Time Temp Pulse Resp B/P (MAP) Pulse Ox O2 Delivery O2 Flow Rate FiO2 06/07/19 01:17 97.7 78 16 109/70 (83) 06/06/19 23:07 99 Room Air Laboratory Data 24H Labs Laboratory Tests 2 06/06/19 18:55: Nucleated Red Blood Cells % (auto) 0.0, Anion Gap 6L, Glomerular Filtration Rate > 60.0, Calcium Level 8.9, Aspartate Amino Transf (AST/SGOT) 27, Alanine Aminotransferase (ALT/SGPT) 25, Alkaline Phosphatase 53, Total Bilirubin 0.5, Direct Bilirubin 0.1, Total Protein 7.0, Albumin 3.5, Albumin/Globulin Ratio 1.00, Thyroid Stimulating Hormone (TSH) 0.349L, Salicylates Level 2.1L, Acetami nophen Level < 2.0L, Ethyl Alcohol Level < 0.003 06/06/19 18:56: Urine Amphetamines Screen NEGATIVE, Urine Benzodiazepines Screen NEGATIVE, Urine Opiates Screen NEGATIVE, Urine Methadone Screen NEGATIVE, Urine Barbiturates Screen NEGATIVE, Urine Phencyclidine Screen NEGATIVE, Urine Cocaine Metabolite Screen NEGATIVE, Urine Cannabinoids Screen POSITIVEH CBC/BMP Laboratory Tests 06/06/19 18:55 Red Blood Count 4.52, Mean Corpuscular Volume 90.9, Mean Corpuscular Hemoglobin 30.3, Mean Corpuscular Hemoglobin Concent 33.3, Red Cell Distribution Width 14.0 Medications Scheduled Amantadine HCl (Amantadine) 100 Mg Tablet, 200 MG PO QHS, (Reported) Aripiprazole Lauroxil (Aristada) 1,064 Mg/3.9 Ml Inj, 3.9 ML IM [id number], (Reported) Haloperidol (Haloperidol) 10 Mg Tablet, 10 MG PO BID, (Reported) Haloperidol Decanoate (Haloperidol Decanoate) 100 Mg/Ml Soln, 100 MG IM QMONTH for PSYCHOSIS, (Reported) LAST TAKEN DATE IS APPROXIMATE Paliperidone Palmitate (Invega Trinza) 819 Mg/2.625 Ml Inj, 819 MG IM Q3M for PSYCHOSIS, (Reported) Quetiapine Fumarate (Quetiapine Fumarate) 200 Mg Tablet, 200 MG PO QHS, (Reported) Tolnaftate (Tinactin) 150 G[address] [place], 1 SPRAY TOP BID, (Reported) Allergies Coded Allergies: PERFUMES (Verified Allergy, Unknown, 04/21/18) DIANA DONIS DO Jun 07, 2019 11:27 am
[2019-06-07] MEDS ORDERED: HALOPERIDOL DECANOATE 100 MG/ML VIAL (J1631) IM ONE (11:30)
[2019-06-07] MEDS ORDERED: ONDANSETRON 4 MG ORAL DISINTEGRATING TAB (Q0162 PER 1MG) PO PRN (14:45)
--- NOTE | 2019-06-07 14:56 | HPEPDOC ---
General Date of Admission Jun 06, 2019 at 21:16 Date of Service: Jun 07, 2019 Attending Physician: CYNTHIA SANABRIA MD Chief Complaint The patient is a 39-year-old male admitted with a reason for visit of Schizophrenia. History of Present Illness Jorgito Ayon is a 39 year old male, past medical history significant for multiple admissions for management of schizophrenia, polysubstance abuse, nicotine dependence, depression, admitted on account of auditory hallucinations. He also admitted to thoughts of suicide with plans to either hang or kill self. On assessment, he complains of abdominal pain, nausea and vomiting. He denies chest pain, diarrhea, constipation, chills or fever. Home Medications Scheduled Amantadine HCl (Amantadine) 100 Mg Tablet, 200 MG PO QHS, (Reported) Aripiprazole Lauroxil (Aristada) 1,064 Mg/3.9 Ml Inj, 3.9 ML IM [id number], (Reported) Haloperidol (Haloperidol) 10 Mg Tablet, 10 MG PO BID, (Reported) Haloperidol Decanoate (Haloperidol Decanoate) 100 Mg/Ml Soln, 100 MG IM QMONTH for PSYCHOSIS, (Reported) LAST TAKEN DATE IS APPROXIMATE Paliperidone Palmitate (Invega Trinza) 819 Mg/2.625 Ml Inj, 819 MG IM Q3M for PSYCHOSIS, (Reported) Quetiapine Fumarate (Quetiapine Fumarate) 200 Mg Tablet, 200 MG PO QHS, (Reported) Tolnaftate (Tinactin) 150 Gm [place], 1 SPRAY TOP BID, (Reported) Allergies Coded Allergies: PERFUMES (Verified Allergy, Unknown, 04/21/18) Past Medical History Medical History Schizophrenia Nicotine dependent. Alcohol abuse Surgical History Denies surgical history Social History Smokes one pack per day, drinks 3, pitchers of beer per day, ongoing polysubstance abuse with THC. A-FIB/CHADSVASC A-FIB History Current/History of A-Fib/PAF?: No Current PO Anticoag Therapy: No Review of Systems Other systems A pertinent 10 point review of systems is completed, negative except as stated in the history of presenting illness Physical Examination Other physical findings GENERAL: NAD SKIN : Warm, dry intact HEENT: Atraumatic, normocephalic, PERRL, moist mucous membrane CARDIOVASCULAR: Regular rate and rhythm, S1S2, no JVD, no edema, distal pulses + palpable RESP: CTAB, no accessory muscle use noted ABDOMEN: BS+ non distended non tender MS: no joint deformities NEURO: Alert and oriented x 3, CN2-12 grossly intact PSYCH: no anxiety or agitation, appropriate mood and affect. Vital Signs Vital Signs Date Time Temp Pulse Resp B/P (MAP) Pulse Ox O2 Delivery O2 Flow Rate FiO2 06/07/19 01:17 97.7 78 16 109/70 (83) 06/06/19 23:07 99 Room Air Laboratory Data Labs 24H Laboratory Tests 2 06/06/19 18:55: Nucleated Red Blood Cells % (auto) 0.0, Anion Gap 6L, Glomerular Filtration Rate > 60.0, Calcium Level 8.9, Aspartate Amino Transf (AST/SGOT) 27, Alanine Aminotransferase (ALT/SGPT) 25, Alkaline Phosphatase 53, Total Bilirubin 0.5, Direct Bilirubin 0.1, Total Protein 7.0, Albumin 3.5, Albumin/Globulin Ratio 1.00, Thyroid Stimulating Hormone (TSH) 0.349L, Salicylates Level 2.1L, Acetaminophen Level < 2.0L, Ethyl Alcohol Level < 0.003 06/06/19 18:56: Urine Amphetamines Screen NEGATIVE, Urine Benzodiazepines Screen NEGATIVE, Urine Opiates Screen NEGATIVE, Urine Methadone Screen NEGATIVE, Urine Barbiturates Screen NEGATIVE, Urine Phencyclidine Screen NEGATIVE, Urine Cocaine Metabolite Screen NEGATIVE, Urine Cannabinoids Screen POSITIVEH CBC/BMP Laboratory Tests 06/06/19 18:55 Red Blood Count 4.52, Mean Corpuscular Volume 90.9, Mean Corpuscular Hemoglobin 30.3, Mean Corpuscular Hemoglobin Concent 33.3, Red Cell Distribution Width 14.0 Assessment/Plan Abdominal pain Alcohol abuse Polysubstance abuse with THC Nicotine dependence ASSESSMENT AND PLAN Zofran as needed for reported nausea and vomiting Proton pump inhibitor given patient's alcohol abuse, history Management of acute psychiatric presentation and symptoms by primary team Plan / VTE VTE Prophylaxis Ordered?: No VTE Exclusion Mechanical Proph: Low Risk for VTE BRIANA CAMPA Jun 07, 2019 14:56
[2019-06-07] MEDS: PANTOPRAZOLE 40MG TAB (PROTONIX) PO SCH (15:23)
[2019-06-07] MEDS: THIAMINE 100 MG TAB PO SCH (15:23)
[2019-06-07] MEDS: MULTIVITAMINS/MINERALS THERAP 1 TAB PO SCH (15:23)
[2019-06-07] MEDS: FOLIC ACID 1 MG TAB PO SCH (15:23)
[2019-06-07] MEDS ORDERED: CEPACOL LOZENGE PO PRN (16:45)
[2019-06-07 18:00] VITALS: BP 119/75
[2019-06-07] MEDS: traZODone 50 MG TAB PO PRN (21:35)
[2019-06-07] MEDS: QUEtiapine FUMARATE 200 MG TAB PO SCH (21:36)
[2019-06-07] MEDS: AMANTADINE 100 MG CAP PO SCH (21:36)
[2019-06-08 06:43] VITALS: BP 136/82
[2019-06-08] MEDS: FOLIC ACID 1 MG TAB PO SCH (09:24)
[2019-06-08] MEDS: PANTOPRAZOLE 40MG TAB (PROTONIX) PO SCH (09:24)
[2019-06-08] MEDS: THIAMINE 100 MG TAB PO SCH (09:24)
[2019-06-08] MEDS: HALOPERIDOL 10 MG TAB PO SCH ×2 (09:24→22:34)
[2019-06-08] MEDS: MULTIVITAMINS/MINERALS THERAP 1 TAB PO SCH (09:24)
[2019-06-08] MEDS: NICOTINE 21MG/24HR 1 EA TRANSDERMAL TD SCH (09:25)
--- NOTE | 2019-06-08 09:57 | IPNPDOC ---
Text Note Date of Service The patient was seen on 06/08/19. NOTE Subjective: Denies further episodes of nausea or vomiting. denies abdominal pain Objective GENERAL: NAD SKIN : Warm, dry intact HEENT: Atraumatic, normocephalic, PERRL, moist mucous membrane CARDIOVASCULAR: Regular rate and rhythm, S1S2, no JVD, no edema, distal pulses + palpable RESP: CTAB, no accessory muscle use noted ABDOMEN: BS+ non distended non tender MS: no joint deformities NEURO: Alert and oriented x 3, CN2-12 grossly intact PSYCH: no anxiety or agitation, appropriate mood and affect. Assessment/Plan Abdominal pain Nausea and Vomiting Alcohol abuse Polysubstance abuse with THC Nicotine dependence PLAN Continue Zofran as needed for nausea and vomiting continue PPI given patient's alcohol abuse, history Management of acute psychiatric presentation and symptoms by primary team VS,Fran, I+O VS, Fran, I+O Vital Signs Date Time Temp Pulse Resp B/P (MAP) Pulse Ox O2 Delivery O2 Flow Rate FiO2 06/08/19 06:43 99.1 82 12 136/82 (100) 06/06/19 23:07 99 Room Air BRIANA CAMPA Jun 08, 2019 09:57
[2019-06-08 18:00] VITALS: BP 112/68
[2019-06-08] MEDS: QUEtiapine FUMARATE 100 MG TAB PO SCH (22:33)
[2019-06-08] MEDS: AMANTADINE 100 MG CAP PO SCH (22:34)
[2019-06-09 06:21] VITALS: BP 131/93
[2019-06-09] MEDS: HALOPERIDOL 10 MG TAB PO SCH ×2 (08:29→21:24)
[2019-06-09] MEDS: FOLIC ACID 1 MG TAB PO SCH (08:30)
[2019-06-09] MEDS: MULTIVITAMINS/MINERALS THERAP 1 TAB PO SCH (08:30)
[2019-06-09] MEDS: PANTOPRAZOLE 40MG TAB (PROTONIX) PO SCH (08:30)
[2019-06-09] MEDS: THIAMINE 100 MG TAB PO SCH (08:30)
[2019-06-09] MEDS: NICOTINE 21MG/24HR 1 EA TRANSDERMAL TD SCH (08:31)
--- NOTE | 2019-06-09 09:54 | MHIPNPDOC ---
[facility] Progress Note Progress Note DATE OF SERVICE: 06/08/19 HISTORY: Patient is a 39 -year-old , male, with a history of paranoid schizophrenia and multiple admission to [facility] most for invega trinza shot due to missing outpatient most recently who self-presented to the ED endorsing SI with plan to cut or hang self secondary to AH that are "clapping," "thumping," and telling him to harm himself. Utox positive cannabis. VITAL SIGNS: See below. NEW TEST RESULTS: none CURRENT MEDICATIONS: See below. MENTAL STATUS EXAMINATION: General Appearance: well groomed, appears stated age, hospital scrubs/clothing Build: average Demeanor: average, preoccupied Eye Contact: fair Activity: average Behavior: cooperative, other (disorganized but pleasant, limited attention) Speech: clear, reg/rate,rhythm,volume, non-spontaneous Mood: euthymic Mood "OK" Affect: full, inappropriate, disorganized, pleasant Thought Process: concrete, tangential, associative, flight of ideas, other (at baseline) Thought Content (Delusions): paranoia (mild), delusions (mild), other (denies SI/HI, positive AH, no VH, appears at baseline status) Thought Content (Other): preoccupied, obsessional (writing random words from books that are nonsensical and reading text for specific words), ideas of reference, internal-stimuli, appears paranoid, other (all symptoms mild and at baseline) Perception (Hallucinations): auditory (mild, at baseline, non-command) Perception (Other): none reported Cognition (Impairment of): attention/concentration, ability to abstract, other (baseline statis) Cognition(Intelligence Est.): borderline Oriented: Awake, Alert, Oriented times three Insight: fair, other (knows when to get help) Judgment: Fair, Other (knows when to get help) Psychosis: Associations, Abstract Thinking, Psychotic Perceptions, Other (baseline status) DIAGNOSES: Paranoid Schizophrenia depression unspecified cannabis use d/o ASSESSMENT:Pt seen briefly due to baseline distractibility, holding papers in his hand, and stated he's working on his "[employer] case files" (long standing delusion that he works for the [employer] in some way). He appears overall baseline regarding AH that are non-command, disorganization, and bizarre/grandiose delusions that are long standing and not changing, unlikely to respond to medication treatment. He denies SI/HI. Feels safe here. Is sleeping well at night after seroquel increased yesterday and tolerating well. MANAGEMENT PLAN: continue plan Medications: Give Haldol dec 100mg IM x1 06/07/19 [id number] tid seroquel 300mg qhs amantidine 200mg bid TIME SPENT: 30 minutes. Vital Signs Vital Signs Date Time Temp Pulse Resp B/P (MAP) Pulse Ox O2 Delivery O2 Flow Rate FiO2 06/08/19 06:43 99.1 82 12 136/82 (100) 06/06/19 23:07 99 Room Air Current Medications Current Medications Medications (Trade) Dose Ordered Sig/Simone Route PRN Reason Start Time Stop Time Status Last Admin Dose Admin Acetaminophen (Tylenol Tab) 650 mg Q6HP PRN PO HEADACHE or DISCOMFORT 06/06/19 21:30 06/07/19 15:59 Al Hydrox/Mg Hydrox/Simethicone (Mylanta) 30 ml Q4HP PRN PO HEARTBURN/INDIGESTION 06/06/19 21:30 Amantadine HCl (Symmetrel) 200 mg DAILY@2100 PO 06/06/19 21:00 06/07/19 21:36 Cetylpyridinium Chloride (Cepacol) 1 delgado Q2HP PRN PO COUGH 06/07/19 16:45 06/07/19 16:50 Folic Acid (Folic Acid) 1 mg DAILY PO 06/07/19 09:00 06/08/19 09:24 Haloperidol (Haldol) 10 mg BID PO 06/06/19 21:00 06/08/19 09:24 Home Med (Med Rec Complete!) ASDIRECTED XX 06/06/19 19:45 06/06/19 19:45 DC Magnesium Hydroxide (Milk Of Magnesia) 30 ml DAILYPRN PRN PO CONSTIPATION 06/06/19 21:30 Multivitamins (Theragram-M) 1 tab DAILY PO 06/07/19 09:00 06/08/19 09:24 Nicotine (Nicoderm Cq 21mg) 1 patch DAILY TD 06/07/19 09:00 06/08/19 09:25 Ondansetron HCl (Zofran Odt) 4 mg Q4HP PRN PO NAUSEA OR VOMITING 06/07/19 14:45 Pantoprazole Sodium (Protonix) 40 mg DAILY PO 06/07/19 09:00 06/08/19 09:24 Quetiapine Fumarate (SEROquel) 200 mg QHS PO 06/06/19 21:00 06/07/19 21:36 Thiamine HCl (Thiamine HCl) 100 mg DAILY PO 06/07/19 09:00 06/08/19 09:24 Trazodone HCl (Desyrel) 50 mg QHSP PRN PO INSOMNIA 06/06/19 21:30 06/07/19 21:35 Allergies Coded Allergies: PERFUMES (Verified Allergy, Unknown, 04/21/18) DIANA DONIS DO Jun 08, 2019 9:40 am
--- NOTE | 2019-06-09 10:11 | MHIPNPDOC ---
[facility] Progress Note Progress Note DATE OF SERVICE: 06/09/19 HISTORY: Patient is a 39 -year-old , male, with a history of paranoid schizophrenia and multiple admission to [facility] most for invega trinza shot due to missing outpatient most recently who self-presented to the ED endorsing SI with plan to cut or hang self secondary to AH that are "clapping," "thumping," and telling him to harm himself. Utox positive cannabis. VITAL SIGNS: See below. NEW TEST RESULTS: none CURRENT MEDICATIONS: See below. MENTAL STATUS EXAMINATION: General Appearance: well groomed, appears stated age, hospital scrubs/clothing Build: average Demeanor: average, preoccupied Eye Contact: fair Activity: average Behavior: cooperative, other (disorganized but pleasant, limited attention) Speech: clear, reg/rate,rhythm,volume, non-spontaneous Mood: euthymic Mood "OK" Affect: full, inappropriate, disorganized, pleasant Thought Process: concrete, tangential, associative, flight of ideas, other (at baseline) Thought Content (Delusions): paranoia (mild), delusions (mild), other (denies SI/HI, positive AH, no VH, appears at baseline status) Thought Content (Other): preoccupied, obsessional (writing random words from books that are nonsensical and reading text for specific words), ideas of reference, internal-stimuli, appears paranoid, other (all symptoms mild and at baseline) Perception (Hallucinations): auditory (mild, at baseline, non-command) Perception (Other): none reported Cognition (Impairment of): attention/concentration, ability to abstract, other (baseline statis) Cognition(Intelligence Est.): borderline Oriented: Awake, Alert, Oriented times three Insight: fair, other (knows when to get help) Judgment: Fair, Other (knows when to get help) Psychosis: Associations, Abstract Thinking, Psychotic Perceptions, Other (baseline status) DIAGNOSES: Paranoid Schizophrenia depression unspecified cannabis use d/o ASSESSMENT:Pt seen in lounge briefly due to baseline distractibility, doing crossword puzzles "taking a break from my [employer] cases". He appears overall baseline regarding AH that are non-command, disorganization, and bizarre/grandiose delusions that are long standing and not changing, unlikely to respond to medication treatment. He denies SI/HI. Feels safe here. Is sleeping well at night after seroquel increased yesterday and tolerating well. MANAGEMENT PLAN: continue plan Medications: Give Haldol dec 100mg IM x1 06/07/19 [id number] tid seroquel 300mg qhs amantidine 200mg bid TIME SPENT: 30 minutes. Vital Signs Vital Signs Date Time Temp Pulse Resp B/P (MAP) Pulse Ox O2 Delivery O2 Flow Rate FiO2 06/09/19 06:21 99.4 85 18 131/93 (106) 06/06/19 23:07 99 Room Air Current Medications Current Medications Medications (Trade) Dose Ordered Sig/Simone Route PRN Reason Start Time Stop Time Status Last Admin Dose Admin Acetaminophen (Tylenol Tab) 650 mg Q6HP PRN PO HEADACHE or DISCOMFORT 06/06/19 21:30 06/07/19 15:59 Al Hydrox/Mg Hydrox/Simethicone (Mylanta) 30 ml Q4HP PRN PO HEARTBURN/INDIGESTION 06/06/19 21:30 Amantadine HCl (Symmetrel) 200 mg DAILY@2100 PO 06/06/19 21:00 06/08/19 22:34 Cetylpyridinium Chloride (Cepacol) 1 delgado Q2HP PRN PO COUGH 06/07/19 16:45 06/07/19 16:50 Folic Acid (Folic Acid) 1 mg DAILY PO 06/07/19 09:00 06/09/19 08:30 Haloperidol (Haldol) 10 mg BID PO 06/06/19 21:00 06/09/19 08:29 Home Med (Med Rec Complete!) ASDIRECTED XX 06/06/19 19:45 06/06/19 19:45 DC Magnesium Hydroxide (Milk Of Magnesia) 30 ml DAILYPRN PRN PO CONSTIPATION 06/06/19 21:30 Multivitamins (Theragram-M) 1 tab DAILY PO 06/07/19 09:00 06/09/19 08:30 Nicotine (Nicoderm Cq 21mg) 1 patch DAILY TD 06/07/19 09:00 06/09/19 08:31 Ondansetron HCl (Zofran Odt) 4 mg Q4HP PRN PO NAUSEA OR VOMITING 06/07/19 14:45 Pantoprazole Sodium (Protonix) 40 mg DAILY PO 06/07/19 09:00 06/09/19 08:30 Quetiapine Fumarate (SEROquel) 200 mg QHS PO 06/06/19 21:00 06/08/19 11:32 DC 06/07/19 21:36 Quetiapine Fumarate (SEROquel) 300 mg QHS PO 06/08/19 21:00 06/08/19 22:33 Thiamine HCl (Thiamine HCl) 100 mg DAILY PO 06/07/19 09:00 06/09/19 08:30 Trazodone HCl (Desyrel) 50 mg QHSP PRN PO INSOMNIA 06/06/19 21:30 06/07/19 21:35 Allergies Coded Allergies: PERFUMES (Verified Allergy, Unknown, 04/21/18) DIANA DONIS DO Jun 09, 2019 10:11 am
[2019-06-09 18:00] VITALS: BP 142/82
[2019-06-09] MEDS: AMANTADINE 100 MG CAP PO SCH (21:24)
[2019-06-09] MEDS: QUEtiapine FUMARATE 100 MG TAB PO SCH (21:24)
[2019-06-09] MEDS: traZODone 50 MG TAB PO PRN (21:24)
[2019-06-10 06:47] VITALS: BP 119/78
[2019-06-10] MEDS: HALOPERIDOL 10 MG TAB PO SCH (08:50)
[2019-06-10] MEDS: FOLIC ACID 1 MG TAB PO SCH (08:50)
[2019-06-10] MEDS: PANTOPRAZOLE 40MG TAB (PROTONIX) PO SCH (08:50)
[2019-06-10] MEDS: THIAMINE 100 MG TAB PO SCH (08:50)
[2019-06-10] MEDS: MULTIVITAMINS/MINERALS THERAP 1 TAB PO SCH (08:50)
[2019-06-10] MEDS: NICOTINE 21MG/24HR 1 EA TRANSDERMAL TD SCH (08:51)
[2019-06-10] MEDS ORDERED: HALO10TA20 PO (08:56)
[2019-06-10] MEDS ORDERED: QUET1TAB8 PO (08:56)
[2019-06-10] MEDS ORDERED: TRAZ-252 PO (08:56)
[2019-06-10] MEDS ORDERED: HALO10AM IM (08:56)
[2019-06-10] MEDS ORDERED: AMAN100T PO (08:56)
--- NOTE | 2019-06-13 09:01 | MHDSPDOC ---
[facility] Discharge Summary Discharge Summary DATE OF ADMISSION: Jun 06, 2019 at 9:16 pm DATE OF DISCHARGE: Jun 10, 2019 DISCHARGE DIAGNOSES: Paranoid Schizophrenia cannabis use d/o REASON FOR ADMISSION: Patient is a 39 -year-old , male, with a history of paranoid schizophrenia and multiple admission to [facility] most for invega trinza shot due to missing outpatient most recently who self-presented to the ED endorsing SI with plan to cut or hang self secondary to AH that are "clapping," "thumping," and telling him to harm himself. Utox positive cannabis. CONSULTS: none HOSPITAL COURSE: Pt admitted to the to the inpatient psychiatric unit, seen for psychiatric assessment, and restarted on outpatient medications of seroquel 200mg nightly, amantidine 200mg daily, haldol 10mg bid. He was given his outpatient haldol dec 100mg IM that was due this admission. He received abilify aristada 1,064 IM and Invega Trinza 814mg IM prior his admission. His outpatient seroquel was increased to 300mg qhs. Pt's symptoms improved with treatment back to his baseline status. He participated in groups that he found beneficial. He was compliant with his meds. He was discharge home after meeting with his outpatient CM with follow-up at the community clinic. He denied depression, anxiety, insomnia, SI/HI upon discharge. His AH were improved to baseline ("quiet"). Denied delusions, paranoia. DISCHARGE ASSESSMENT: Pt seen and states he feels good today and his AH are "better" and not command in form. States he's looking forward to going home today. Attention is at his baseline and good and he doesn't appear grossly disorganized as he can hold a logical/linear conversation based on interview questions. States his medications are beneficial and tolerating them well. Denies depression, anxiety, insomnia, SI/HI. His AH were improved to baseline ("quiet"). He feels safe to be discharged home today. He has a very supportive mother. MENTAL STATUS EXAMINATION ON DISCHARGE: General Appearance: well groomed, appears stated age, hospital scrubs/clothing Build: average Demeanor: average, other (pleasant) Eye Contact: average Activity: average Behavior: cooperative Speech: clear, reg/rate,rhythm,volume, spontaneous Mood: euthymic Mood ok Affect: full, appropriate, congruent Thought Process: logical/linear, concrete Thought Content (Delusions): other (AH non command , "quiet" and appear baseline). Denies SI/HI) Thought Content (Other): internal-stimuli, coherent Thought Content (Aggressive): none reported Perception (Hallucinations): auditory "quiet" and baseline Perception (Other): none reported Cognition (Impairment of): fair attention/concentration, ability to abstract (baseline) Cognition(Intelligence Est.): borderline Oriented: Awake, Alert, Oriented times three Judgment: Fair Psychosis: mild Abstract Thinking, Psychotic Perceptions (baseline) MEDICATIONS ON DISCHARGE: Haldol dec 100mg IM [id number] tid seroquel 300mg qhs amantidine 200mg qhs abilify aristada 1,064 IM [id number] Invega Trinza 814mg IM [id number] PLAN/FOLLOWUP ARRANGEMENTS: D/c home with follow-up at [facility]. The amount of time spent in the coordination of care for this patient was approximately 30 minutes. Vital Signs/I&Os Vital Signs Date Time Temp Pulse Resp B/P (MAP) Pulse Ox O2 Delivery O2 Flow Rate FiO2 06/10/19 06:47 97.7 64 14 119/78 (92) 06/06/19 23:07 99 Room Air Medications Scheduled Amantadine HCl (Amantadine) 100 Mg Tablet, 200 MG PO QHS for eps, #20 Aripiprazole Lauroxil (Aristada) 1,064 Mg/3.9 Ml Inj, 3.9 ML IM [id number], (Reported) Haloperidol (Haloperidol) 10 Mg Tablet, 10 MG PO BID for schizophrenia, #20 Haloperidol Decanoate (Haloperidol Decanoate) 100 Mg/Ml Soln, 100 MG IM QMONTH for PSYCHOSIS, #1 LAST TAKEN DATE IS APPROXIMATE Paliperidone Palmitate (Invega Trinza) 819 Mg/2.625 Ml Inj, 819 MG IM Q3M for PS YCHOSIS, (Reported) Quetiapine Fumarate (Quetiapine Fumarate) 100 Mg Tablet, 300 MG PO QHS for s chizophrenia, #30 Tolnaftate (Tinactin) 150 Gm [place], 1 SPRAY TOP BID, (Reported) Scheduled PRN Trazodone HCl (Trazodone HCl) 50 Mg Tablet, 50 MG PO QHSP PRN for INSOMNIA, #10 Allergies Coded Allergies: PERFUMES (Verified Allergy, Unknown, 04/21/18) DIANA DONIS DO Jun 10, 2019 08:57
== END 2019-06-10 11:00 | disposition home or self-care (01) | DRG 750 ==
LOC: M ED 17:41 → M ED INP 21:16 → M PSY 21:16
PROVIDERS: ADMIT Psychiatry & Neurology Addiction Medicine; ATTEND Psychiatry & Neurology Psychiatry
DX: F20.0 Paranoid schizophrenia (principal); F17.200 Nicotine dependence, unspecified, uncomplicated; F12.90 Cannabis use, unspecified, uncomplicated; Z79.899 Other long term (current) drug therapy

== ENCOUNTER 2019-06-23 16:55 | Emergency (ER) | payer MEDICAID, OTHER ==
[~2019-06-23] VITALS: Ht 167.6 cm; Wt 71.6 kg
[~2019-06-23 16:55] MED LIST changes: +QUET1TAB8 PO; -QUET1TAB9 PO; +QUET200T2 PO
[2019-06-23 17:46] LABS: HEMATOCRIT 40.3 % (42.0-52.0); HEMOGLOBIN 13.5 g/dl (13.5-17.5); MEAN CORPUSCULAR HEMOGLOBIN 30.1 pg (27.0-33.0); MEAN CORPUSCULAR HGB CONC 33.5 g/dl (32.0-36.5); PLATELET COUNT, AUTOMATED 265 10^3/uL (150-450); RED BLOOD COUNT 4.48 10^6/uL (4.30-6.10); WHITE BLOOD COUNT 9.1 10^3/uL (4.0-10.0)
[2019-06-23 18:14] LABS: AMPHETAMINES LEVEL URINE NEGATIVE (NEGATIVE); BARBITURATES URINE NEGATIVE (NEGATIVE); BENZODIAZEPINES URINE NEGATIVE (NEGATIVE); CANNABINOIDS URINE NEGATIVE (NEGATIVE); COCAINE METABOLITE URINE NEGATIVE (NEGATIVE); METHADONE URINE NEGATIVE (NEGATIVE); OPIATES URINE NEGATIVE (NEGATIVE); PHENCYCLIDINE URINE NEGATIVE (NEGATIVE)
[2019-06-23 18:32] LABS: ACETAMINOPHEN LEVEL < 2.0 UG/ML (10.0-30.0); ALBUMIN 3.5 GM/DL (3.2-5.2); ALT/SGPT 31 U/L (12-78); BILIRUBIN,DIRECT < 0.1 MG/DL (0.0-0.2); BILIRUBIN,TOTAL 0.3 MG/DL (0.2-1.0); BLOOD UREA NITROGEN 11 MG/DL (7-18); CALCIUM LEVEL 9.2 MG/DL (8.5-10.1); CARBON DIOXIDE LEVEL 28 MEQ/L (21-32); CHLORIDE LEVEL 107 MEQ/L (98-107); CREATININE FOR GFR 0.94 MG/DL (0.70-1.30); ETHYL ALCOHOL (ETHANOL) 0.003 % (0.000-0.010); GLOMERULAR FILTRATION RATE > 60.0 (>60); GLUCOSE, FASTING 105 MG/DL (70-100); POTASSIUM SERUM 3.7 MEQ/L (3.5-5.1); SALICYLATE LEVEL 2.1 MG/DL (5.0-30.0); SODIUM LEVEL 141 MEQ/L (136-145); THYROID STIMULATING HORMONE 0.921 uIU/ML (0.358-3.740)
[2019-06-23 20:54] VITALS: BP 124/82
== END 2019-06-23 22:11 | disposition home or self-care (01) ==
LOC: M ED 16:55
DX: F20.9 Schizophrenia, unspecified (principal); Z60.9 Problem related to social environment, unspecified; F33.9 Major depressive disorder, recurrent, unspecified; F15.10 Other stimulant abuse, uncomplicated; Z79.899 Other long term (current) drug therapy; Z91.048 Other nonmedicinal substance allergy status; F17.210 Nicotine dependence, cigarettes, uncomplicated
CPT/HCPCS: 36415; 80048; 80076; 80307; 84443; 85027; 99284; G0480

== ENCOUNTER 2019-07-10 04:47 | Emergency (ER) | payer OTHER ==
[~2019-07-10] VITALS: Ht 175.3 cm; Wt 72.7 kg
[2019-07-10] MEDS ORDERED: NAPR-837 PO (06:25)
[2019-07-10 06:30] VITALS: BP 124/76
[2019-07-10] MEDS ORDERED: NAPROXEN 250 MG TAB PO ONE (06:30)
== END 2019-07-10 06:45 | disposition home or self-care (01) ==
LOC: M ED 04:47
DX: M79.605 Pain in left leg (principal); M79.604 Pain in right leg; M62.89 Other specified disorders of muscle; Z91.048 Other nonmedicinal substance allergy status; Z79.899 Other long term (current) drug therapy

== ENCOUNTER 2019-07-16 12:03 | Emergency (ER) | payer OTHER ==
[~2019-07-16] VITALS: Ht 175.3 cm; Wt 68.2 kg
[~2019-07-16 12:03] MED LIST changes: +NAPR-837 PO
[2019-07-16 12:04] VITALS: BP 122/77
--- NOTE | 2019-07-16 14:06 | REP ---
REASON: Pain without trauma, bilateral. FINDINGS: No acute fracture or destructive osseous lesion. Electronically Signed by Ronald Pimentel DO 07/16/2019 03:20 P
== END 2019-07-16 14:02 | disposition home or self-care (01) ==
LOC: M ED 12:03
DX: M79.662 Pain in left lower leg (principal); M79.661 Pain in right lower leg; R56.9 Unspecified convulsions; F20.0 Paranoid schizophrenia; J45.909 Unspecified asthma, uncomplicated; I10 Essential (primary) hypertension; F19.11 Other psychoactive substance abuse, in remission; F17.210 Nicotine dependence, cigarettes, uncomplicated; Z91.048 Other nonmedicinal substance allergy status

== ENCOUNTER 2019-08-03 13:29 | Emergency (ER) | payer OTHER ==
[~2019-08-03] VITALS: Ht 175.3 cm; Wt 69.0 kg
[2019-08-03 14:13] LABS: HEMATOCRIT 45.9 % (42.0-52.0); MEAN CORPUSCULAR HEMOGLOBIN 30.5 pg (27.0-33.0); MEAN CORPUSCULAR HGB CONC 32.7 g/dl (32.0-36.5); MEAN CORPUSCULAR VOLUME 93.5 fl (80.0-96.0); PLATELET COUNT, AUTOMATED 283 10^3/uL (150-450); RED BLOOD COUNT 4.91 10^6/uL (4.30-6.10); WHITE BLOOD COUNT 7.8 10^3/uL (4.0-10.0)
[2019-08-03 14:37] LABS: ACETAMINOPHEN LEVEL < 2.0 UG/ML (10.0-30.0); ALBUMIN 3.8 GM/DL (3.2-5.2); ALT/SGPT 50 U/L (12-78); BILIRUBIN,DIRECT 0.3 MG/DL (0.0-0.2); BILIRUBIN,TOTAL 1.1 MG/DL (0.2-1.0); BLOOD UREA NITROGEN 16 MG/DL (7-18); CALCIUM LEVEL 9.5 MG/DL (8.5-10.1); CARBON DIOXIDE LEVEL 28 MEQ/L (21-32); CHLORIDE LEVEL 108 MEQ/L (98-107); CREATININE FOR GFR 1.04 MG/DL (0.70-1.30); ETHYL ALCOHOL (ETHANOL) < 0.003 % (0.000-0.010); GLOMERULAR FILTRATION RATE > 60.0 (>60); GLUCOSE, FASTING 84 MG/DL (70-100); POTASSIUM SERUM 4.7 MEQ/L (3.5-5.1); SALICYLATE LEVEL 2.3 MG/DL (5.0-30.0); SODIUM LEVEL 141 MEQ/L (136-145); TOTAL PROTEIN 7.5 GM/DL (6.4-8.2)
[2019-08-03 14:38] LABS: AMPHETAMINES LEVEL URINE NEGATIVE (NEGATIVE); BARBITURATES URINE NEGATIVE (NEGATIVE); BENZODIAZEPINES URINE NEGATIVE (NEGATIVE); CANNABINOIDS URINE POSITIVE (NEGATIVE); COCAINE METABOLITE URINE NEGATIVE (NEGATIVE); METHADONE URINE NEGATIVE (NEGATIVE); OPIATES URINE NEGATIVE (NEGATIVE); PHENCYCLIDINE URINE NEGATIVE (NEGATIVE)
[2019-08-03 17:27] VITALS: BP 137/87
== END 2019-08-03 17:31 | disposition home or self-care (01) ==
LOC: M ED 13:29
DX: F20.9 Schizophrenia, unspecified (principal); I10 Essential (primary) hypertension; J45.909 Unspecified asthma, uncomplicated; F19.10 Other psychoactive substance abuse, uncomplicated; F17.200 Nicotine dependence, unspecified, uncomplicated; Z79.899 Other long term (current) drug therapy; Z91.89 Other specified personal risk factors, not elsewhere classified
CPT/HCPCS: 80048; 80076; 80307; 84443; 85027; 99283; G0480

== ENCOUNTER 2019-08-10 17:08 | Emergency (ER) | payer OTHER ==
[~2019-08-10] VITALS: Ht 175.3 cm; Wt 68.2 kg
[2019-08-10 17:37] LABS: BASO % 0.4 % (0.0-1.0); EOS # 0.1 10^3/uL (0.0-0.5); HEMATOCRIT 40.1 % (42.0-52.0); HEMOGLOBIN 13.5 g/dl (13.5-17.5); LYMPH # 2.2 10^3/uL (1.5-5.0); LYMPH % 26.9 % (24.0-44.0); MEAN CORPUSCULAR HEMOGLOBIN 31.3 pg (27.0-33.0); MEAN CORPUSCULAR HGB CONC 33.7 g/dl (32.0-36.5); MEAN CORPUSCULAR VOLUME 92.8 fl (80.0-96.0); MONO % 11.7 % (0.0-5.0); NEUTROPHILS # 4.9 10^3/uL (1.5-8.5); NEUTROPHILS % 59.8 % (36.0-66.0); PLATELET COUNT, AUTOMATED 278 10^3/uL (150-450); RED BLOOD COUNT 4.32 10^6/uL (4.30-6.10); WHITE BLOOD COUNT 8.2 10^3/uL (4.0-10.0)
[2019-08-10 18:07] LABS: BLOOD UREA NITROGEN 12 MG/DL (7-18); CARBON DIOXIDE LEVEL 29 MEQ/L (21-32); CHLORIDE LEVEL 109 MEQ/L (98-107); CK-MB VALUE MASS 3.6 NG/ML (<3.6); CPK CREATINE PHOSPHOKINASE 656 U/L (39-308); CREATININE FOR GFR 0.92 MG/DL (0.70-1.30); GLOMERULAR FILTRATION RATE > 60.0 (>60); GLUCOSE, FASTING 111 MG/DL (70-100); MB/CK RELATIVE INDEX 0.55 (< OR =4); POTASSIUM SERUM 3.6 MEQ/L (3.5-5.1); SODIUM LEVEL 144 MEQ/L (136-145); TROPONIN I < 0.02 NG/ML (< 0.10)
--- NOTE | 2019-08-10 18:10 | REP ---
CHEST: Single view. There is no evidence of acute infiltrate. No pleural effusion is seen. The heart is normal in size. The mediastinal silhouette is unremarkable. The visualized osseous structures are intact. IMPRESSION: No acute pulmonary disease. Electronically Signed by Danny Eaton MD 08/10/2019 06:46 P
[2019-08-10 21:40] VITALS: BP 140/97
--- NOTE | 2019-08-11 10:51 | ECGEPIP ---
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
== END 2019-08-10 21:43 | disposition left against medical advice (07) ==
LOC: M ED 17:08
DX: R07.9 Chest pain, unspecified (principal); F19.10 Other psychoactive substance abuse, uncomplicated; F20.9 Schizophrenia, unspecified; F17.200 Nicotine dependence, unspecified, uncomplicated; F12.10 Cannabis abuse, uncomplicated; Z79.899 Other long term (current) drug therapy; Z91.89 Other specified personal risk factors, not elsewhere classified

== ENCOUNTER 2019-09-12 10:53 | Emergency (ER) | payer OTHER ==
[~2019-09-12] VITALS: Ht 175.3 cm; Wt 70.2 kg
[2019-09-12 12:20] LABS: HEMATOCRIT 45.3 % (42.0-52.0); HEMOGLOBIN 14.4 g/dl (13.5-17.5); MEAN CORPUSCULAR HEMOGLOBIN 29.4 pg (27.0-33.0); MEAN CORPUSCULAR HGB CONC 31.8 g/dl (32.0-36.5); MEAN CORPUSCULAR VOLUME 92.6 fl (80.0-96.0); PLATELET COUNT, AUTOMATED 292 10^3/uL (150-450); RED BLOOD COUNT 4.89 10^6/uL (4.30-6.10); WHITE BLOOD COUNT 8.1 10^3/uL (4.0-10.0)
[2019-09-12 12:52] LABS: ACETAMINOPHEN LEVEL < 2.0 UG/ML (10.0-30.0); ALBUMIN 3.7 GM/DL (3.2-5.2); ALT/SGPT 30 U/L (12-78); BILIRUBIN,DIRECT 0.1 MG/DL (0.0-0.2); BILIRUBIN,TOTAL 0.6 MG/DL (0.2-1.0); BLOOD UREA NITROGEN 15 MG/DL (7-18); CALCIUM LEVEL 9.2 MG/DL (8.5-10.1); CARBON DIOXIDE LEVEL 29 MEQ/L (21-32); CHLORIDE LEVEL 109 MEQ/L (98-107); CREATININE FOR GFR 0.92 MG/DL (0.70-1.30); ETHYL ALCOHOL (ETHANOL) < 0.003 % (0.000-0.010); GLOMERULAR FILTRATION RATE > 60.0 (>60); GLUCOSE, FASTING 77 MG/DL (70-100); POTASSIUM SERUM 3.9 MEQ/L (3.5-5.1); SALICYLATE LEVEL 1.7 MG/DL (5.0-30.0); SODIUM LEVEL 142 MEQ/L (136-145); THYROID STIMULATING HORMONE 0.657 uIU/ML (0.358-3.740); TOTAL PROTEIN 7.2 GM/DL (6.4-8.2)
[2019-09-12 12:54] LABS: AMPHETAMINES LEVEL URINE NEGATIVE (NEGATIVE); BARBITURATES URINE NEGATIVE (NEGATIVE); BENZODIAZEPINES URINE NEGATIVE (NEGATIVE); CANNABINOIDS URINE NEGATIVE (NEGATIVE); COCAINE METABOLITE URINE NEGATIVE (NEGATIVE); METHADONE URINE NEGATIVE (NEGATIVE); OPIATES URINE NEGATIVE (NEGATIVE); PHENCYCLIDINE URINE NEGATIVE (NEGATIVE)
[2019-09-12] MEDS ORDERED: [UNRECOGNIZED DRUG - CODE] IM (14:07)
[2019-09-12] MEDS ORDERED: TRAZ-252 PO (14:08)
[2019-09-12] MEDS ORDERED: HALO10TA2 PO (14:08)
[2019-09-12] MEDS ORDERED: AMAN100T PO (14:08)
[2019-09-12] MEDS ORDERED: NAPR-885 PO (14:08)
[2019-09-12] MEDS ORDERED: HALO10AM IM (14:08)
[2019-09-12] MEDS ORDERED: HALOPERIDOL DECANOATE 100 MG/ML VIAL (J1631) IM ONE (14:30)
[2019-09-12] MEDS ORDERED: ARIPIPRAZOLE LAUROXIL IM ONE (14:30)
[2019-09-12 15:20] VITALS: BP 136/78
== END 2019-09-12 15:18 | disposition home or self-care (01) ==
LOC: M ED 10:53
DX: F20.9 Schizophrenia, unspecified (principal); F17.200 Nicotine dependence, unspecified, uncomplicated; F19.10 Other psychoactive substance abuse, uncomplicated; Z79.899 Other long term (current) drug therapy; Z91.89 Other specified personal risk factors, not elsewhere classified
CPT/HCPCS: 80048; 80076; 80307; 84443; 85027; 96372; 99284; G0480; J1631; J1943

== ENCOUNTER 2019-09-20 13:19 | Emergency (ER) | payer OTHER ==
[~2019-09-20] VITALS: Ht 172.7 cm; Wt 61.4 kg
[~2019-09-20 13:19] MED LIST changes: +HALO10TA2 PO; +[UNRECOGNIZED DRUG - CODE] IM
[2019-09-20 14:05] LABS: HEMATOCRIT 42.3 % (42.0-52.0); HEMOGLOBIN 13.9 g/dl (13.5-17.5); MEAN CORPUSCULAR HEMOGLOBIN 29.9 pg (27.0-33.0); MEAN CORPUSCULAR HGB CONC 32.9 g/dl (32.0-36.5); PLATELET COUNT, AUTOMATED 267 10^3/uL (150-450); RED BLOOD COUNT 4.65 10^6/uL (4.30-6.10)
[2019-09-20 14:33] LABS: AMPHETAMINES LEVEL URINE NEGATIVE (NEGATIVE); BARBITURATES URINE NEGATIVE (NEGATIVE); BENZODIAZEPINES URINE NEGATIVE (NEGATIVE); CANNABINOIDS URINE NEGATIVE (NEGATIVE); COCAINE METABOLITE URINE NEGATIVE (NEGATIVE); METHADONE URINE NEGATIVE (NEGATIVE); OPIATES URINE NEGATIVE (NEGATIVE); PHENCYCLIDINE URINE NEGATIVE (NEGATIVE)
[2019-09-20 14:40] LABS: ACETAMINOPHEN LEVEL < 2.0 UG/ML (10.0-30.0); ALBUMIN 3.4 GM/DL (3.2-5.2); ALT/SGPT 41 U/L (12-78); BILIRUBIN,DIRECT < 0.1 MG/DL (0.0-0.2); BILIRUBIN,TOTAL 0.3 MG/DL (0.2-1.0); BLOOD UREA NITROGEN 16 MG/DL (7-18); CARBON DIOXIDE LEVEL 28 MEQ/L (21-32); CHLORIDE LEVEL 109 MEQ/L (98-107); CREATININE FOR GFR 0.96 MG/DL (0.70-1.30); ETHYL ALCOHOL (ETHANOL) < 0.003 % (0.000-0.010); GLOMERULAR FILTRATION RATE > 60.0 (>60); GLUCOSE, FASTING 113 MG/DL (70-100); POTASSIUM SERUM 4.2 MEQ/L (3.5-5.1); SALICYLATE LEVEL 3.3 MG/DL (5.0-30.0); SODIUM LEVEL 141 MEQ/L (136-145); THYROID STIMULATING HORMONE 0.653 uIU/ML (0.358-3.740); TOTAL PROTEIN 6.8 GM/DL (6.4-8.2)
[2019-09-20 16:19] VITALS: BP 128/72
== END 2019-09-20 17:29 | disposition home or self-care (01) ==
LOC: M ED 13:19
DX: F20.9 Schizophrenia, unspecified (principal); Z91.048 Other nonmedicinal substance allergy status; Z79.1 Long term (current) use of non-steroidal anti-inflammatories (NSAID); Z79.83 Long term (current) use of bisphosphonates; Z79.899 Other long term (current) drug therapy
CPT/HCPCS: 36415; 80048; 80076; 80307; 84443; 85027; 99284; G0480

== ENCOUNTER 2019-09-30 19:09 | Emergency (ER) | payer OTHER ==
[~2019-09-30] VITALS: Ht 172.7 cm; Wt 60.0 kg
[2019-09-30 19:42] LABS: BASO # 0.1 10^3/uL (0.0-0.2); BASO % 0.7 % (0.0-1.0); EOS # 0.2 10^3/uL (0.0-0.5); EOS % 1.9 % (0.0-3.0); HEMOGLOBIN 14.7 g/dl (13.5-17.5); LYMPH # 2.4 10^3/uL (1.5-5.0); LYMPH % 24.6 % (24.0-44.0); MEAN CORPUSCULAR HEMOGLOBIN 29.6 pg (27.0-33.0); MEAN CORPUSCULAR VOLUME 92.6 fl (80.0-96.0); MONO # 0.9 10^3/uL (0.0-0.8); MONO % 9.4 % (0.0-5.0); NEUTROPHILS # 6.1 10^3/uL (1.5-8.5); NEUTROPHILS % 63.1 % (36.0-66.0); PLATELET COUNT, AUTOMATED 301 10^3/uL (150-450); RED BLOOD COUNT 4.97 10^6/uL (4.30-6.10); WHITE BLOOD COUNT 9.7 10^3/uL (4.0-10.0)
[2019-09-30 19:55] LABS: INR 1.1; PARTIAL THROMBOPLASTIN TIME 27.3 SECONDS (25.0-38.4)
[2019-09-30 20:17] LABS: BLOOD UREA NITROGEN 10 MG/DL (7-18); CALCIUM LEVEL 8.4 MG/DL (8.5-10.1); CARBON DIOXIDE LEVEL 29 MEQ/L (21-32); CHLORIDE LEVEL 109 MEQ/L (98-107); CK-MB VALUE MASS 5.4 NG/ML (<3.6); CPK CREATINE PHOSPHOKINASE 734 U/L (39-308); CREATININE FOR GFR 1.02 MG/DL (0.70-1.30); GLOMERULAR FILTRATION RATE > 60.0 (>60); GLUCOSE, FASTING 74 MG/DL (70-100); MB/CK RELATIVE INDEX 0.74 (< OR =4); POTASSIUM SERUM 4.3 MEQ/L (3.5-5.1); SODIUM LEVEL 142 MEQ/L (136-145); TROPONIN I < 0.02 NG/ML (< 0.10)
[2019-09-30] MEDS ORDERED: KETOROLAC 30 MG/ML VIAL (J1885) IV ONE (20:30)
[2019-09-30] MEDS ORDERED: NS 1,000 ML IV ONE (20:30)
--- NOTE | 2019-09-30 20:58 | REP ---
Clinical: Chest pain . Comparison: 08/10/2019 . Findings: The mediastinum and cardiac silhouette are stable and within normal limits for portable technique. The lung escalante are clear without acute consolidation, effusion, or pneumothorax. Skeletal structures are intact. Impression: No acute cardiopulmonary process appreciated. Electronically Signed by Dex Moore MD 09/30/2019 08:50 P
[2019-09-30 22:03] VITALS: BP 116/81
--- NOTE | 2019-10-02 07:20 | ECGEPIP ---
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
== END 2019-09-30 22:10 | disposition home or self-care (01) ==
LOC: M ED 19:09
DX: M94.0 Chondrocostal junction syndrome [Tietze] (principal); F20.9 Schizophrenia, unspecified; F17.210 Nicotine dependence, cigarettes, uncomplicated; Z91.048 Other nonmedicinal substance allergy status; Z79.1 Long term (current) use of non-steroidal anti-inflammatories (NSAID); Z79.83 Long term (current) use of bisphosphonates; Z79.899 Other long term (current) drug therapy
CPT/HCPCS: 71045; 80048; 82550; 82553; 85025; 85610; 85730; 93005; 96361; 96374; 99284; J1885

== ENCOUNTER 2019-10-29 08:00 | Emergency (ER) | payer OTHER ==
[~2019-10-29] VITALS: Ht 175.3 cm; Wt 73.1 kg
[2019-10-29] MEDS ORDERED: INVE156I (08:10)
[2019-10-29 09:19] LABS: HEMATOCRIT 46.5 % (42.0-52.0); HEMOGLOBIN 14.8 g/dl (13.5-17.5); MEAN CORPUSCULAR HEMOGLOBIN 29.5 pg (27.0-33.0); MEAN CORPUSCULAR HGB CONC 31.8 g/dl (32.0-36.5); MEAN CORPUSCULAR VOLUME 92.8 fl (80.0-96.0); PLATELET COUNT, AUTOMATED 339 10^3/uL (150-450); RED BLOOD COUNT 5.01 10^6/uL (4.30-6.10); WHITE BLOOD COUNT 10.4 10^3/uL (4.0-10.0)
[2019-10-29 10:13] LABS: ALBUMIN 3.6 GM/DL (3.2-5.2); ALT/SGPT 30 U/L (12-78); BILIRUBIN,DIRECT 0.1 MG/DL (0.0-0.2); BILIRUBIN,TOTAL 0.5 MG/DL (0.2-1.0); BLOOD UREA NITROGEN 15 MG/DL (7-18); CALCIUM LEVEL 9.1 MG/DL (8.5-10.1); CARBON DIOXIDE LEVEL 27 MEQ/L (21-32); CHLORIDE LEVEL 108 MEQ/L (98-107); CREATININE FOR GFR 1.05 MG/DL (0.70-1.30); GLOMERULAR FILTRATION RATE > 60.0 (>60); GLUCOSE, FASTING 78 MG/DL (70-100); POTASSIUM SERUM 4.6 MEQ/L (3.5-5.1); SALICYLATE LEVEL 2.5 MG/DL (5.0-30.0); SODIUM LEVEL 143 MEQ/L (136-145); TOTAL PROTEIN 7.2 GM/DL (6.4-8.2)
[2019-10-29 10:14] LABS: ACETAMINOPHEN LEVEL < 2.0 UG/ML (10.0-30.0); ETHYL ALCOHOL (ETHANOL) < 0.003 % (0.000-0.010)
[2019-10-29 10:47] LABS: AMPHETAMINES LEVEL URINE NEGATIVE (NEGATIVE); BARBITURATES URINE NEGATIVE (NEGATIVE); BENZODIAZEPINES URINE NEGATIVE (NEGATIVE); CANNABINOIDS URINE POSITIVE (NEGATIVE); COCAINE METABOLITE URINE NEGATIVE (NEGATIVE); METHADONE URINE NEGATIVE (NEGATIVE); OPIATES URINE NEGATIVE (NEGATIVE); PHENCYCLIDINE URINE NEGATIVE (NEGATIVE)
[2019-10-29 12:25] VITALS: BP 127/82
== END 2019-10-29 12:48 | disposition home or self-care (01) ==
LOC: M ED 08:00
DX: F20.9 Schizophrenia, unspecified (principal); F17.210 Nicotine dependence, cigarettes, uncomplicated; Z91.048 Other nonmedicinal substance allergy status; Z79.1 Long term (current) use of non-steroidal anti-inflammatories (NSAID); Z79.2 Long term (current) use of antibiotics; Z79.83 Long term (current) use of bisphosphonates; Z79.899 Other long term (current) drug therapy
CPT/HCPCS: 36415; 80048; 80076; 80307; 84443; 85027; 99284; G0480

== ENCOUNTER 2019-11-09 02:38 | Emergency (ER) | payer OTHER ==
[~2019-11-09] VITALS: Ht 175.3 cm; Wt 72.6 kg
[~2019-11-09 02:38] MED LIST changes: +INVE156I; -TRAZ10TA PO; +TRAZ1TAB12 PO
[2019-11-09 03:04] LABS: HEMATOCRIT 44.2 % (42.0-52.0); HEMOGLOBIN 14.2 g/dl (13.5-17.5); MEAN CORPUSCULAR HEMOGLOBIN 29.6 pg (27.0-33.0); MEAN CORPUSCULAR HGB CONC 32.1 g/dl (32.0-36.5); MEAN CORPUSCULAR VOLUME 92.1 fl (80.0-96.0); PLATELET COUNT, AUTOMATED 265 10^3/uL (150-450)
[2019-11-09 03:51] LABS: ACETAMINOPHEN LEVEL < 2.0 UG/ML (10.0-30.0); ALBUMIN 3.5 GM/DL (3.2-5.2); ALT/SGPT 30 U/L (12-78); BILIRUBIN,DIRECT < 0.1 MG/DL (0.0-0.2); BILIRUBIN,TOTAL 0.4 MG/DL (0.2-1.0); BLOOD UREA NITROGEN 14 MG/DL (7-18); CALCIUM LEVEL 8.6 MG/DL (8.5-10.1); CARBON DIOXIDE LEVEL 22 MEQ/L (21-32); CHLORIDE LEVEL 110 MEQ/L (98-107); CREATININE FOR GFR 0.96 MG/DL (0.70-1.30); ETHYL ALCOHOL (ETHANOL) 0.052 % (0.000-0.010); GLOMERULAR FILTRATION RATE > 60.0 (>60); GLUCOSE, FASTING 94 MG/DL (70-100); POTASSIUM SERUM 3.8 MEQ/L (3.5-5.1); SALICYLATE LEVEL 2.5 MG/DL (5.0-30.0); SODIUM LEVEL 143 MEQ/L (136-145); TOTAL PROTEIN 7.2 GM/DL (6.4-8.2)
[2019-11-09] MEDS ORDERED: ARIS1064 IM (03:59)
[2019-11-09] MEDS ORDERED: INVE156I IM (03:59)
[2019-11-09 07:04] LABS: AMPHETAMINES LEVEL URINE NEGATIVE (NEGATIVE); BARBITURATES URINE NEGATIVE (NEGATIVE); BENZODIAZEPINES URINE NEGATIVE (NEGATIVE); CANNABINOIDS URINE POSITIVE (NEGATIVE); COCAINE METABOLITE URINE POSITIVE (NEGATIVE); METHADONE URINE NEGATIVE (NEGATIVE); OPIATES URINE NEGATIVE (NEGATIVE); PHENCYCLIDINE URINE NEGATIVE (NEGATIVE)
--- NOTE | 2019-11-09 12:04 | MHCRPDOC ---
[facility] Consultation Consultation DATE OF CONSULTATION: 11/09/19 CONSULTATION REQUESTED BY: ED REASON FOR CONSULTATION: SI RELEVANT HISTORY: Pt is a 39y/o AAM with longstanding paranoid schizophrenia, takes invega trinza and abilify aristada thru [facility], who present to ED endorsing SI which he usually presents to ED endorsing when he misses one of his IM meds. Pt seen and denies SI and states he missed his invega trinza and came to ED to receive it. Otherwise he denies depression, SI/HI. He is baseline regarding AH, talking to self, writing disorganized thoughts (it is improved with his im meds and he is baseline). Advised to take a shower when he gets home to his mother's as he is very malodorous. He is agreeable to invega sustenna 234mg im now with follow-up at [facility]. Feels safe to D/c home PAST PSYCHIATRIC HISTORY: see above; multiple past admission [facility]. Very familiar with pt. PAST MEDICAL HISTORY:per ED note FAMILY HISTORY: noncontributory PERSONAL AND SOCIAL HISTORY: The patient was born and raised in [place]. Resides in: [place] with mother Marital Status: S Single Children: no Employment: disability SUBSTANCE ABUSE HISTORY: Cannabis use LEGAL HISTORY: denies MENTAL STATUS EXAMINATION: General Appearance: well groomed, appears stated age, hospital scrubs/clothing Build: average Demeanor: average, other (pleasant) Eye Contact: average Activity: average Behavior: cooperative Speech: clear, reg/rate,rhythm,volume, spontaneous Mood: euthymic Mood ok Affect: full, appropriate, congruent Thought Process: logical/linear, concrete Thought Content (Delusions): other (AH non command , "quiet" and appear baseline). Denies SI/HI) Thought Content (Other): internal-stimuli, coherent Thought Content (Aggressive): none reported Perception (Hallucinations): auditory "quiet" and baseline Perception (Other): none reported Cognition (Impairment of): fair attention/concentration, ability to abstract (baseline) Cognition(Intelligence Est.): borderline Oriented: Awake, Alert, Oriented times three Judgment: Fair Psychosis: mild Abstract Thinking, Psychotic Perceptions (baseline) DIAGNOSIS: 1. Paranoid Schizophrenia PLAN: 1. Invega sustenna 234mg im now 2. F/U [facility] 3. d/c home to his mother's. Pt denies SI/HI, feels safe to go home. Vital Signs Vital Signs Date Time Temp Pulse Resp B/P (MAP) Pulse Ox O2 Delivery O2 Flow Rate FiO2 11/09/19 06:25 97.8 87 18 122/63 (82) Room Air 11/09/19 02:38 97 Laboratory Data 24H Labs Laboratory Tests 2 11/09/19 02:59: Nucleated Red Blood Cells % (auto) 0.0, Anion Gap 11, Glomerular Filtration Rate > 60.0, Calcium Level 8.6, Total Bilirubin 0.4, Direct Bilirubin < 0.1, Aspa rtate Amino Transf (AST/SGOT) 34, Alanine Aminotransferase (ALT/SGPT) 30, Alkaline Phosphatase 55, Total Protein 7.2, Albumin 3.5, Albumin/Globulin Ratio 0.95L, Thyroid Stimulating Hormone (TSH) 1.290, Salicylates Level 2.5L, Acetaminophen Level < 2.0L, Ethyl Alcohol Level 0.052H 11/09/19 06:12: Urine Opiates Screen NEGATIVE, Urine Methadone Screen NEGATIVE, Urine Barbiturates Screen NEGATIVE, Urine Phencyclidine Screen NEGATIVE, Urine Amphetamines Screen NEGATIVE, Urine Benzodiazepines Screen NEGATIVE, Urine Cocaine Metabolite Screen POSITIVEH, Urine Cannabinoids Screen POSITIVEH Home Medications Current Medications Current Medications Medications (Trade) Dose Ordered Sig/Simone Route PRN Reason Start Time Stop Time Status Last Admin Dose Admin Home Med (Med Rec Complete!) ASDIRECTED XX 11/09/19 04:00 11/09/19 04:01 DC Scheduled Aripiprazole Lauroxil (Aristada) 1,064 Mg/3.9 Ml Suser.syr, 1,064 MG IM ASDIRECTED, (Reported) EVERY 8 WEEKS Paliperidone Palmitate (Invega Sustenna) 156 Mg/1 Ml Syringe, 156 MG IM QMONTH, (Reported) Allergies Coded Allergies: PERFUMES (Verified Allergy, Unknown, 04/21/18) DIANA DONIS DO Nov 09, 2019 12:04
[2019-11-09] MEDS ORDERED: PALIPERIDONE PALMITATE 156MG/1ML INJ(INVEGA)(J2426)(FREE PSY INPT ONLY) IM ONE (14:00)
[2019-11-09 15:15] VITALS: BP 111/70
== END 2019-11-09 15:16 | disposition home or self-care (01) ==
LOC: M ED 02:38
DX: F20.0 Paranoid schizophrenia (principal); F17.210 Nicotine dependence, cigarettes, uncomplicated; Z79.899 Other long term (current) drug therapy; Z91.5 Personal history of self-harm; Z91.048 Other nonmedicinal substance allergy status
CPT/HCPCS: 36415; 80048; 80076; 80307; 84443; 85027; 99284; G0480

== ENCOUNTER 2019-11-14 06:59 | Inpatient (IN) | payer OTHER ==
[~2019-11-14] VITALS: Ht 175.3 cm; Wt 70.6 kg
[2019-11-14] MEDS ORDERED: ASPIRIN 81 MG CHEW TABLET PO ONE (07:15)
[2019-11-14 07:43] LABS: BASO # 0.1 10^3/uL (0.0-0.2); BASO % 0.5 % (0.0-1.0); EOS # 0.2 10^3/uL (0.0-0.5); EOS % 1.1 % (0.0-3.0); HEMATOCRIT 45.8 % (42.0-52.0); HEMOGLOBIN 14.7 g/dl (13.5-17.5); LYMPH # 3.3 10^3/uL (1.5-5.0); LYMPH % 24.8 % (24.0-44.0); MEAN CORPUSCULAR HEMOGLOBIN 29.6 pg (27.0-33.0); MEAN CORPUSCULAR HGB CONC 32.1 g/dl (32.0-36.5); MEAN CORPUSCULAR VOLUME 92.2 fl (80.0-96.0); MONO % 7.7 % (0.0-5.0); NEUTROPHILS # 8.6 10^3/uL (1.5-8.5); NEUTROPHILS % 65.6 % (36.0-66.0); PLATELET COUNT, AUTOMATED 291 10^3/uL (150-450); RED BLOOD COUNT 4.97 10^6/uL (4.30-6.10); WHITE BLOOD COUNT 13.1 10^3/uL (4.0-10.0)
--- NOTE | 2019-11-14 07:57 | REP ---
Clinical: Chest pain . Comparison: 09/30/2019 . Findings: The mediastinum and cardiac silhouette are stable and within normal limits for portable technique. The lung escalante are clear without acute consolidation, effusion, or pneumothorax. Skeletal structures are intact. Impression: No acute cardiopulmonary process appreciated. Electronically Signed by Dex Moore MD 11/14/2019 07:48 A
[2019-11-14 08:02] LABS: AMPHETAMINES LEVEL URINE NEGATIVE (NEGATIVE); BARBITURATES URINE NEGATIVE (NEGATIVE); BENZODIAZEPINES URINE NEGATIVE (NEGATIVE); CANNABINOIDS URINE NEGATIVE (NEGATIVE); COCAINE METABOLITE URINE NEGATIVE (NEGATIVE); METHADONE URINE NEGATIVE (NEGATIVE); OPIATES URINE NEGATIVE (NEGATIVE); PHENCYCLIDINE URINE NEGATIVE (NEGATIVE)
[2019-11-14 08:12] LABS: ACETAMINOPHEN LEVEL < 2.0 UG/ML (10.0-30.0); ALBUMIN 3.8 GM/DL (3.2-5.2); ALT/SGPT 36 U/L (12-78); BILIRUBIN,DIRECT < 0.1 MG/DL (0.0-0.2); BILIRUBIN,TOTAL 0.3 MG/DL (0.2-1.0); BLOOD UREA NITROGEN 15 MG/DL (7-18); CALCIUM LEVEL 9.2 MG/DL (8.5-10.1); CARBON DIOXIDE LEVEL 25 MEQ/L (21-32); CHLORIDE LEVEL 107 MEQ/L (98-107); CK-MB VALUE MASS 3.5 NG/ML (<3.6); CPK CREATINE PHOSPHOKINASE 419 U/L (39-308); CREATININE FOR GFR 0.97 MG/DL (0.70-1.30); ETHYL ALCOHOL (ETHANOL) 0.009 % (0.000-0.010); FREE T4 0.96 NG/DL (0.76-1.46); GLOMERULAR FILTRATION RATE > 60.0 (>60); GLUCOSE, FASTING 94 MG/DL (70-100); LIPASE 134 U/L (73-393); MB/CK RELATIVE INDEX 0.84 (< OR =4); NT-PRO BNP 38 PG/ML (<125); POTASSIUM SERUM 3.9 MEQ/L (3.5-5.1); SALICYLATE LEVEL 2.7 MG/DL (5.0-30.0); SODIUM LEVEL 140 MEQ/L (136-145); TOTAL PROTEIN 7.2 GM/DL (6.4-8.2); TROPONIN I < 0.02 NG/ML (< 0.10)
[2019-11-14] MEDS ORDERED: NS 1,000 ML IV ONE (08:15)
[2019-11-14] MEDS ORDERED: ISOVUE-370 76% 100ML VIAL (Q9967) As Ordered ONE (08:22)
--- NOTE | 2019-11-14 10:10 | REP ---
CT pulmonary angiogram: With IV contrast. History: Chest pain. Comparison studies: Comparison chest CT with contrast September 29, 2015. Contrast dose: 75 a ML of Isovue [address] technique: Helical scanning is acquired and overlapping 1.5 mm and contiguous 3 mm axial images are reformatted. In addition, maximum intensity projection and multiplanar re-formation images are generated in sagittal and coronal imaging projections. CT pulmonary angiographic findings: There is good opacification in the pulmonary arterial tree. There is no CT evidence of pulmonary embolism. Thoracic aorta shows no evidence of aneurysm or dissection. There is no evidence of pleural or pericardial effusion. No hilar or mediastinal lymphadenopathy is seen. There is a tiny bleb in the right upper lobe. There is a 4 mm noncalcified nodule in the right middle lobe. This is displayed on page 54 of 100 in series 402 of today's study. It is not clearly visible previously. There is a tiny nodule in the left upper lobe on page 38. Another tiny a right middle lobe nodule is visible on page 57. No other significant pulmonary nodule is appreciated. No infiltrate is seen. No bony destructive lesion is appreciated. Impression: No CT evidence of pulmonary embolus or acute aortic abnormality. There are scattered tiny noncalcified nodular densities in the lung escalante bilaterally, most consistent with granulomatous changes. Otherwise no acute disease. Electronically Signed by Jose Wagner MD 11/14/2019 02:47 P
[2019-11-14 13:59] LABS: CK-MB VALUE MASS 3.4 NG/ML (<3.6); CPK CREATINE PHOSPHOKINASE 377 U/L (39-308); TROPONIN I < 0.02 NG/ML (< 0.10)
[2019-11-14] MEDS ORDERED: COMMENTS (17:56)
[2019-11-14] MEDS ORDERED: OLANZapine ORAL DISINTEGRATING TAB 5MG PO PRN (18:00)
[2019-11-14] MEDS ORDERED: traZODone 50 MG TAB PO PRN (18:00)
[2019-11-14] MEDS ORDERED: MOM 30ML SUSPENSION UDC PO PRN (18:00)
[2019-11-14] MEDS ORDERED: ACETAMINOPHEN TAB 650MG DOSE (2X325MG) PO PRN (18:00)
--- NOTE | 2019-11-14 19:47 | ECGEPIP ---
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
--- NOTE | 2019-11-14 19:56 | ECGEPIP ---
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
[2019-11-14 22:00] VITALS: BP 115/76
[2019-11-15 07:06] VITALS: BP 130/79
[2019-11-15] MEDS ORDERED: INFLUENZA QUADRIVALENT PF VACCINE 0.5ML SYRINGE (90686) IM ONE (09:00)
--- NOTE | 2019-11-15 09:50 | MHHPEPDOC ---
[facility] History & Physical History and Physical DATE OF ADMISSION: Nov 14, 2019 at 17:57 New Patient Gabo Self Age 39 Male Date of : 1980 Date of Service: 11/15/2019 Chief Complaint "I don't know why I was admitted." History of Present Illness The patient, a well-known 39-year-old man who has a history of schizophrenia, is admitted after being seen in the ER for chest pain. He had reportedly been somewhat bizarre, prompting the ER doctor to be concerned. The patient was admitted out of an abundance of caution as he had been previously seen in the ER by psychiatry attending and recommended to have an Invega shot, which was not given. The patient was mildly more irritable and less amenable than his baseline. When I met with the patient, he was more irritable and more internally preoccupied than he normally is. He has been well-known to our facility for quite some time, well compensated by the local area. He has multiple services that help keep him stable as an outpatient, amenable to treatment, he has a relatively good niche for himself in the local area. The patient's irritability is the only change, however, he has not had his Invega Sustenna. We contacted [facility], however, it appears that his psychiatrist and the clinic have different records of which we are attempting to rectify for his treatment. Review Of Systems Depression: The patient denies any episodes of unprovoked depressed mood associated with neurovegetative symptoms lasting longer than 2 weeks with symptoms present nearly everyday. Anxiety: The patient denies any excessive worry associated with physical sy mptoms. They deny any experience of discreet panic in the past. Laura: The patient denies any episodes of euphoria/dysphoria associated with decreased need for sleep, hedonism, talkatively or impulsivity lasting longer than 5 days. Psychotic: As above. Trauma: The patient denies any traumatic events associated with nightmares or intrusive thoughts. Borderline: The patient screens negative for borderline personality at this junction. Past Psychiatric History The patient has a long history of psychiatric admissions, schizophrenia, currently on reportedly Invega Sustenna, although we are unclear if he has been on Trinza. Allergies Please see below. Family Psychiatric History Has a history of mental health problems in the family, unclear which at this t collin. Social History The patient is a never man with some children who he does not have custody at this time, who lives with his mother. He has a long history of mental health and is disabled, receiving SSI on the first of the month. He has been co nvicted in the past of assault, however, this appeared to be when he was in a much different state, however, his treatment recently has been quite effective for him. He grew up with his parents with a good relationship with his mother and neglectful relationship with his father. He has siblings, which he has reported fair relationship with. APS has been involved in his case to help coordinate treatment, which has been highly effective to keeping him stable as an outpatient. Substance Abuse History The patient has significant alcohol use, however, he does not appear to have any signs or symptoms of addiction at this time. Has a history of alcohol and cannabis use disorder in the past. Medical History Patient has no significant past medical history. Mental Status Examination General: Well dressed with good hygiene Speech: Somewhat circumstantial, at baseline Thought processes: Circumstantial at times, at baseline MSK: Smooth and coordinated gait, no signs of tremors or involuntary orofacial movements Thought content: Somewhat odd, but at his normal baseline Abstract reasoning, and computation: Mildly impaired, at baseline Description of associations: Baseline Description of abnormal or psychotic thoughts: Denies any suicidal or homicidal ideation. Denies any auditory or visual hallucinations. Does not appear to be responding to internal stimuli. Does not appear to be endorsing any bizarre or paranoid ideation. Judgment: Fair for patient's baseline Insight: Fair to patient's baseline Orientation: Alert and orientated 3 Cognition: Grossly normal Recent and remote memory: Intact Attention span and concentration: Intact Fund of knowledge: Adequate Mood: "I'm not sure why I'm here" Affect: Mildly irritable, different than baseline that is euthymic Diagnoses Schizophrenia. Alcohol use disorder, severe. Cannabis use disorder, severe. Assessment and Plan Schizophrenia: We will ascertain what medications he is on to restart the injectables. Alcohol use disorder: Watch for withdrawal. CIWA if needed. Cannabis use disorder: Recommend continued abstinence. Disposition The patient will need continued admission in order to ascertain his medications, restart them and triage him back into outpatient care. Problem List 1. Altered thoughts. Initial Treatment Plan 1. Patient was admitted on a 9.39 legal status. 2. Complete history was obtained. 3. With patients permission, family will be contacted and database will be expanded. 4. Patients medication regimen will be reviewed and changed accordingly. 5. Patient will be provided with protected environment. 6. Patient will be treated with individual, group, and milieu therapies. 7. Patient will receive supportive psych-education. 8. Discharge planning will commence immediately. 9. Outpatient follow-up treatment will be strongly recommended. 10. The initial treatment plan will focus initially on: Estimated Length Of Stay 3 days. Time Spent 70 minutes. Thursday Vital Signs Vital Signs Date Time Temp Pulse Resp B/P (MAP) Pulse Ox O2 Delivery O2 Flow Rate FiO2 11/15/19 07:06 97.8 83 16 130/79 (96) 11/14/19 22:00 99 Room Air Laboratory Data 24H Labs Laboratory Tests 2 11/14/19 13:19: Total Creatine Kinase 377H, Creatine Kinase MB 3.4, Creatine Kinase MB Relative Index 0.90, Troponin I < 0.02 Medications Scheduled Aripiprazole Lauroxil (Aristada) 1,064 Mg/3.9 Ml Suser.syr, 1,064 MG IM ASDI RECTED, (Reported) EVERY 8 WEEKS Paliperidone Palmitate (Invega Sustenna) 156 Mg/1 Ml Syringe, 156 MG IM QMONTH, (Reported) Miscellaneous Medications [Comments] , (Reported) PT PICKED UP BOTH SHOTS FROM THE PHARMACY IN OCTOBER BUT DOES NOT REMEBER IS THE SHOTS WERE ADMINISTERED Allergies Coded Allergies: PERFUMES (Verified Allergy, Unknown, 04/21/18) RENEE MARTINES DO Nov 15, 2019 09:50
--- NOTE | 2019-11-15 09:54 | HPEPDOC ---
[facility] Medical History & Physical Date of Admission Nov 15, 2019 Date of Service: Nov 15, 2019 Attending Physician: A History and Physical Chief complaint: Tried to comment suicide History of present illness: This is the 39-year-old male with no significant medical history, comes to the psychiatric unit for delusional ideation and we have been consulted for medical reasons. He is not been able to provide a good history. He keeps on saying things which are not relevant. He currently has been admitted to the psychiatric facility for schizopherenia and the management will be as per him. He denies any shortness of breath, any chest pain, any headache. He states that he does not have any intentions of hurting himself or anybody else at this point of time. Family history. Hypertension. Social history. Occasional smoker. Denies any drug abuse. Denies any recreational drug use. Past medical history none except for depression. Past surgical history none as per patient Review of systems. Pertinent positive findings as per HPI and is negative PHYSICAL EXAMINATION: General: The patient is awake, alert, oriented x3, sitting up in the bed in no apparent distress. Head and Neck Exam: Extraocular muscles intact. Pupils equally round and reactive to light. Mucous membranes are moist. Neck is supple. There is no jugular venous distention (JVD). Cardiovascular: S1 and S2, regular rate. No real edema Respiratory: Clear auscultation Abdomen: Soft. Positive bowel sounds. Nontender. No organomegaly. Genitourinary: Deferred Musculoskeletal: Clubbing of the fingernails, no cyanosis was noted. Central Nervous System (REFINERY OPERATOR ASSISTANT): No focal deficit. Power is 5/5 in all extremit ies. Medications reviewed Radiology reviewed Assessment and plan This is a 31-year-old male was been admitted to the psychiatric facility for suicide attempt. And we have been consulted for medical management. 1. Schizopherenia: Management is per psychiatry. 2. Granulomatous lung disease: CT lungs showing no evidence of pulmonary embolus or acute aortic abnormality but scattered tiny noncalcified nodular densities in the lung escalante bilaterally, most consistent with granulomatous changes. Out pt pulmonary followup. Diet as per psychiatric Thank so much for consulting us on this patient Vital Signs Vital Signs Date Time Temp Pulse Resp B/P (MAP) Pulse Ox O2 Delivery O2 Flow Rate FiO2 11/15/19 07:06 97.8 83 16 130/79 (96) 11/14/19 22:00 99 Room Air Laboratory Data Labs 24H Laboratory Tests 2 11/14/19 13:19: Total Creatine Kinase 377H, Creatine Kinase MB 3.4, Creatine Kinase MB Relative Index 0.90, Troponin I < 0.02 Home Medications Scheduled Aripiprazole Lauroxil (Aristada) 1,064 Mg/3.9 Ml Suser.syr, 1,064 MG IM ASDIRECTED EVERY 8 WEEKS Paliperidone Palmitate (Invega Sustenna) 156 Mg/1 Ml Syringe, 156 MG IM QMONTH Miscellaneous Medications [Comments] PT PICKED UP BOTH SHOTS FROM THE PHARMACY IN OCTOBER BUT DOES NOT REMEBER IS THE SHOTS WERE ADMINISTERED Allergies Coded Allergies: PERFUMES (Verified Allergy, Unknown, 04/21/18) A-FIB/CHADSVASC A-FIB History Current/History of A-Fib/PAF?: No Current PO Anticoag Therapy: No SERGO PRINCE MD Nov 15, 2019 09:54
[2019-11-15] MEDS ORDERED: PALIPERIDONE PALMITATE 156MG/1ML INJ(INVEGA)(J2426)(FREE PSY INPT ONLY) IM ONE (15:00)
[2019-11-15 15:46] VITALS: BP 117/71
[2019-11-15] MEDS: PALIPERIDONE 3 MG ER TAB (INVEGA) PO SCH (21:25)
[2019-11-16 06:52] VITALS: BP 117/78
--- NOTE | 2019-11-16 08:07 | MHIPNPDOC ---
[facility] Progress Note Progress Note Inpatient Progress Note Gabo Bull Age 39 Male Date of : 1980 Date of Service: 11/16/2019 History of Present Illness The patient, a well-known 39-year-old man who has a history of schizophrenia, is admitted after being seen in the ER for chest pain. He had reportedly been somewhat bizarre, prompting the ER doctor to be concerned. The patient was admitted out of an abundance of caution as he had been previously seen in the ER by psychiatry attending and recommended to have an Invega shot, which was not given. The patient was mildly more irritable and less amenable than his baseline. When I met with the patient, he was more irritable and more internally preo ccupied than he normally is. He has been well-known to our facility for quite some time, well compensated by the local area. He has multiple services that help keep him stable as an outpatient, amenable to treatment, he has a relatively good niche for himself in the local area. The patient's irritability is the only change, however, he has not had his Invega Sustenna. We contacted [facility], however, it appears that his psychiatrist and the clinic have different records of which we are attempting to rectify for his treatment. Interval History The patient is met with today. He is reportedly doing much better and is close to his baseline. He generally could be mildly psychotic, but is easily friendly, amenable and generally engaged of which he has become more of. We confirmed his outpatient Invega Sustenna dose, which we will give today. The patient was mildly upset that he was not able to go home today, but was easily redirected and has been generally doing well and at his baseline. Review Of Systems Cardiovascular: Denies chest pain or palpitations GI: Denies Nausea, vomiting, or bowel changes Respiratory: Denies shortness of breath or cough Neuro: Denies dizziness, tremors Derm: Denies any rashes or pruritus : Denies any dysuria or urinary problems MSK: Denies any muscle tightness or stiffness Psychotherapy None on this visit. Vital Signs Reviewed. Mental Status Examination General: Well dressed with good hygiene Speech: Somewhat circumstantial, at baseline Thought processes: Circumstantial at times, at baseline MSK: Smooth and coordinated gait, no signs of tremors or involuntary orofacial movements Thought content: Somewhat odd, but at his normal baseline Abstract reasoning, and computation: Mildly impaired, at baseline Description of associations: Baseline Description of abnormal or psychotic thoughts: Denies any suicidal or homicidal ideation. Denies any auditory or visual hallucinations. Does not appear to be responding to internal stimuli. Does not appear to be endorsing any bizarre or paranoid ideation. Judgment: Fair for patient's baseline Insight: Fair to patient's baseline Orientation: Alert and orientated 3 Cognition: Grossly normal Recent and remote memory: Intact Attention span and concentration: Intact Fund of knowledge: Adequate Mood: "I'm not sure why I'm here" Affect: Euthymic, at baseline Diagnoses Schizophrenia. Alcohol use disorder, severe. Cannabis use disorder, severe. Assessment and Plan Schizophrenia: Give dose of Invega Sustenna 234 mg IM. Alcohol use disorder: Watch for withdrawal. CIWA if needed. Cannabis use disorder: Recommend continued abstinence. Disposition Discharge tomorrow. Time Spent 15 minutes. Thursday Vital Signs Vital Signs Date Time Temp Pulse Resp B/P (MAP) Pulse Ox O2 Delivery O2 Flow Rate FiO2 11/16/19 06:52 99.0 79 14 117/78 (91) 11/14/19 22:00 99 Room Air Current Medications Current Medications Medications (Trade) Dose Ordered Sig/Simone Route PRN Reason Start Time Stop Time Status Last Admin Dose Admin Acetaminophen (Tylenol Tab) 650 mg Q6HP PRN PO HEADACHE or DISCOMFORT 11/14/19 18:00 Home Med (Med Rec Complete!) ASDIRECTED XX 11/14/19 18:00 11/14/19 17:58 DC Magnesium Hydroxide (Milk Of Magnesia) 30 ml DAILYPRN PRN PO CONSTIPATION 11/14/19 18:00 Olanzapine (ZyPREXA ZYDIS) 5 mg Q4HP PRN PO AGITATION 11/14/19 18:00 Paliperidone (Invega) 3 mg QHS PO 11/15/19 21:00 11/15/19 21:25 Trazodone HCl (Desyrel) 50 mg QHSP PRN PO INSOMNIA 11/14/19 18:00 11/15/19 21:25 Allergies Coded Allergies: PERFUMES (Verified Allergy, Unknown, 04/21/18) RENEE MARTINES DO Nov 16, 2019 08:07
[2019-11-16] MEDS ORDERED: PALIPERIDONE PALMITATE 234MG/1.5ML INJ (INVEGA)(J2426)(FREE PSY INPT ONLY) IM ONE (10:00)
[2019-11-16 17:21] VITALS: BP 104/63
[2019-11-16] MEDS: PALIPERIDONE 3 MG ER TAB (INVEGA) PO SCH (20:54)
[2019-11-17 05:57] VITALS: BP 121/78
--- NOTE | 2019-11-17 08:18 | MHDSPDOC ---
[facility] Discharge Summary Discharge Summary DATE OF ADMISSION: Nov 14, 2019 at 17:57 DATE OF DISCHARGE: 11/17/19 Discharge Gabo Self Age 39 Male Date of : 1980 Date of Service: 11/17/2019 Diagnoses Schizophrenia. Alcohol use disorder, severe. Cannabis use disorder, severe. History of Present Illness The patient, a well-known 39-year-old man who has a history of schizophrenia, is admitted after being seen in the ER for chest pain. He had reportedly been somewhat bizarre, prompting the ER doctor to be concerned. The patient was admitted out of an abundance of caution as he had been previously seen in the ER by psychiatry attending and recommended to have an Invega shot, which was not given. The patient was mildly more irritable and less amenable than his baseline. Consultants Involved Hospitalist/PCP screening Treatment and Progress On The Unit The patient was admitted to the inpatient unit where he subsequently was observed, sounds irritability more than he usually does; however, he was overall friendly amenable and had no major behavioral problems during his stay. He was given a renewed shot of 234 mg of Invega Sustenna after confirming with his outpatient psychiatrist his current dose. He did well on this and returned to his normal state of friendly and amenableness. He did have this chronic unusual thinking, however, he was not posing a danger to himself or others and was at his baseline as he is a well-known admission to our unit. He is friendly and grateful. Denies suicidal or homicidal ideation through his stay or just rates in groups. Discharge Assessment The patient, a 39-year-old well-known individual, with schizophrenia who presents after some very mild decompensation, is admitted out of an abundance of caution; however, after restart of his Invega Sustenna, he does well from his baseline level of functioning and had been denying suicidal or homicidal ideation through his stay. He declines further voluntary admission and no longer meets involuntary criteria as he is friendly amenable, he is at his baseline level of mental functioning, has good supports as an outpatient and his mother is expecting him to return home. He has uniquely set up a situation where his social situation supports his ability to live successfully as an outpatient. It appears due to an error on the previous year admission where he was not given his injection that he had some mild decompensation, but otherwise he must be discharged in good kayode. Mental Status Examination General: Well dressed with good hygiene Speech: Spontaneous and fluid Thought processes: Linear and logical MSK: Smooth and coordinated gait, no signs of tremors or involuntary orofacial movements Thought content: Future orientated Abstract reasoning, and computation: Intact Description of associations: Intact Description of abnormal or psychotic thoughts: Denies any suicidal or homicidal ideation. Denies any auditory or visual hallucinations. Does not appear to be responding to internal stimuli. Does not appear to be endorsing any bizarre or paranoid ideation. Judgment: fair Insight: fair Orientation: Alert and orientated 3 Cognition: Grossly normal Recent and remote memory: Intact Attention span and concentration: Intact Fund of knowledge: Adequate Mood: "I'm happy" Affect: Euthymic with a full range Follow Up The social work team worked during the predischarge meeting in order to evaluate for further issues of lethality address them fully before discharge. They worked on safety planning with the patient's family members in order to ensure that the patient will have a safe and effective discharge. Time Spent The amount of time spent in the coordination of care for this patient was approximately 60 minutes. Vital Signs/I&Os Vital Signs Date Time Temp Pulse Resp B/P (MAP) Pulse Ox O2 Delivery O2 Flow Rate FiO2 11/17/19 05:57 97.9 84 16 121/78 (92) 11/14/19 22:00 99 Room Air Medications Scheduled Aripiprazole Lauroxil (Aristada) 1,064 Mg/3.9 Ml Suser.syr, 1,064 MG IM ASDIRECTED, (Reported) EVERY 8 WEEKS Paliperidone Palmitate (Invega Sustenna) 156 Mg/1 Ml Syringe, 234 MG IM QMONTH for thoughts for 30 Days, #1 Miscellaneous Medications [Comments] , (Reported) PT PICKED UP BOTH SHOTS FROM THE PHARMACY IN OCTOBER BUT DOES NOT REMEBER IS THE SHOTS WERE ADMINISTERED Allergies Coded Allergies: PERFUMES (Verified Allergy, Unknown, 04/21/18) RENEE MARTINES DO Nov 17, 2019 08:18
[2019-11-17] MEDS ORDERED: INVE156I IM (08:19)
== END 2019-11-17 12:05 | disposition home or self-care (01) | DRG 750 ==
LOC: M ED 06:59 → M ED INP 17:57 → M PSY 21:54
PROVIDERS: ADMIT Psychiatry & Neurology Addiction Medicine; ATTEND Psychiatry & Neurology Addiction Medicine
DX: F20.9 Schizophrenia, unspecified (principal); F10.10 Alcohol abuse, uncomplicated; F12.90 Cannabis use, unspecified, uncomplicated

== ENCOUNTER 2019-12-10 16:53 | Emergency (ER) | payer MEDICAID ==
[~2019-12-10] VITALS: Ht 175.3 cm; Wt 75.0 kg
[~2019-12-10 16:53] MED LIST changes: +COMMENTS; +QUET100T2 PO; -QUET1TAB8 PO
[2019-12-10 16:54] VITALS: BP 137/84
== END 2019-12-10 19:14 | disposition left against medical advice (07) ==
LOC: M ED 16:53
DX: Z53.21 Procedure and treatment not carried out due to patient leaving prior to being seen by health care provider (principal)

== ENCOUNTER 2019-12-22 07:38 | Emergency (ER) | payer MEDICAID, OTHER ==
[~2019-12-22] VITALS: Ht 175.3 cm; Wt 73.3 kg
[2019-12-22] MEDS ORDERED: ARIS1064 (07:52)
[2019-12-22 09:45] LABS: BASO % 0.6 % (0.0-1.0); EOS # 0.1 10^3/uL (0.0-0.5); EOS % 1.6 % (0.0-3.0); HEMATOCRIT 43.3 % (42.0-52.0); HEMOGLOBIN 14.2 g/dl (13.5-17.5); LYMPH # 2.2 10^3/uL (1.5-5.0); LYMPH % 33.2 % (24.0-44.0); MEAN CORPUSCULAR HGB CONC 32.8 g/dl (32.0-36.5); MEAN CORPUSCULAR VOLUME 91.4 fl (80.0-96.0); MONO # 0.7 10^3/uL (0.0-0.8); MONO % 9.8 % (0.0-5.0); NEUTROPHILS # 3.7 10^3/uL (1.5-8.5); NEUTROPHILS % 54.7 % (36.0-66.0); PLATELET COUNT, AUTOMATED 320 10^3/uL (150-450); RED BLOOD COUNT 4.74 10^6/uL (4.30-6.10); WHITE BLOOD COUNT 6.7 10^3/uL (4.0-10.0)
[2019-12-22 10:08] LABS: ALBUMIN 3.4 GM/DL (3.2-5.2); ALT/SGPT 29 U/L (12-78); BILIRUBIN,TOTAL 0.3 MG/DL (0.2-1.0); BLOOD UREA NITROGEN 12 MG/DL (7-18); CARBON DIOXIDE LEVEL 29 MEQ/L (21-32); CHLORIDE LEVEL 108 MEQ/L (98-107); CREATININE FOR GFR 0.83 MG/DL (0.70-1.30); GLOMERULAR FILTRATION RATE > 60.0 (>60); GLUCOSE, FASTING 76 MG/DL (70-100); POTASSIUM SERUM 4.2 MEQ/L (3.5-5.1); SODIUM LEVEL 140 MEQ/L (136-145)
[2019-12-22 10:58] VITALS: BP 117/68
== END 2019-12-22 11:05 | disposition home or self-care (01) ==
LOC: M ED 07:38
DX: Z71.1 Person with feared health complaint in whom no diagnosis is made (principal); F17.210 Nicotine dependence, cigarettes, uncomplicated; F20.9 Schizophrenia, unspecified; I10 Essential (primary) hypertension; J45.909 Unspecified asthma, uncomplicated; Z91.048 Other nonmedicinal substance allergy status; Z79.899 Other long term (current) drug therapy

== ENCOUNTER 2020-01-19 19:43 | Emergency (ER) | payer OTHER ==
[~2020-01-19] VITALS: Ht 175.3 cm; Wt 71.6 kg
[~2020-01-19 19:43] MED LIST changes: +ARIS1064
[2020-01-19 19:44] VITALS: BP 131/76
[2020-01-19] MEDS ORDERED: HALO20TA (19:52)
== END 2020-01-19 20:37 | disposition home or self-care (01) ==
LOC: M ED 19:43
DX: J06.9 Acute upper respiratory infection, unspecified (principal); B34.9 Viral infection, unspecified; I10 Essential (primary) hypertension; J45.909 Unspecified asthma, uncomplicated; F41.9 Anxiety disorder, unspecified; F33.9 Major depressive disorder, recurrent, unspecified; F20.9 Schizophrenia, unspecified; F19.10 Other psychoactive substance abuse, uncomplicated; F17.210 Nicotine dependence, cigarettes, uncomplicated; Z91.048 Other nonmedicinal substance allergy status; Z79.899 Other long term (current) drug therapy

== ENCOUNTER 2020-02-04 02:05 | Emergency (ER) | payer OTHER ==
[~2020-02-04] VITALS: Ht 175.3 cm; Wt 74.4 kg
[~2020-02-04 02:05] MED LIST changes: +HALO20TA
[2020-02-04] MEDS ORDERED: TRAZ-252 (02:14)
[2020-02-04] MEDS ORDERED: QUET1TAB10 (02:14)
[2020-02-04] MEDS ORDERED: AUGM500T34 PO (02:36)
[2020-02-04] MEDS ORDERED: AUGMENTIN 500 MG TAB PO ONE (02:45)
[2020-02-04 03:14] VITALS: BP 108/70
== END 2020-02-04 03:22 | disposition home or self-care (01) ==
LOC: M ED 02:05
DX: J02.9 Acute pharyngitis, unspecified (principal); F20.9 Schizophrenia, unspecified; F19.10 Other psychoactive substance abuse, uncomplicated; F17.200 Nicotine dependence, unspecified, uncomplicated; Z79.899 Other long term (current) drug therapy; Z91.89 Other specified personal risk factors, not elsewhere classified

== ENCOUNTER 2020-02-07 10:47 | Emergency (ER) | payer OTHER ==
[~2020-02-07] VITALS: Ht 175.3 cm; Wt 71.8 kg
[~2020-02-07 10:47] MED LIST changes: +AUGM500T34 PO; +QUET1TAB10; +TRAZ-252
[2020-02-07 10:48] VITALS: BP 140/76
[2020-02-07] MEDS ORDERED: AMOX500T2 (10:54)
[2020-02-07] MEDS ORDERED: AUGMENTIN 875 MG TAB PO ONE (11:15)
== END 2020-02-07 11:28 | disposition home or self-care (01) ==
LOC: M ED 10:47
DX: J02.9 Acute pharyngitis, unspecified (principal); Z79.899 Other long term (current) drug therapy; Z91.048 Other nonmedicinal substance allergy status; F17.210 Nicotine dependence, cigarettes, uncomplicated

== ENCOUNTER 2020-02-11 21:02 | Emergency (ER) | payer OTHER ==
[~2020-02-11] VITALS: Ht 175.3 cm; Wt 61.4 kg
[~2020-02-11 21:02] MED LIST changes: +AMOX500T2
[2020-02-11 21:53] LABS: HEMATOCRIT 42.4 % (42.0-52.0); HEMOGLOBIN 13.8 g/dl (13.5-17.5); MEAN CORPUSCULAR HEMOGLOBIN 29.2 pg (27.0-33.0); MEAN CORPUSCULAR HGB CONC 32.5 g/dl (32.0-36.5); MEAN CORPUSCULAR VOLUME 89.8 fl (80.0-96.0); PLATELET COUNT, AUTOMATED 267 10^3/uL (150-450); RED BLOOD COUNT 4.72 10^6/uL (4.30-6.10); WHITE BLOOD COUNT 8.4 10^3/uL (4.0-10.0)
[2020-02-11 22:22] LABS: AMPHETAMINES LEVEL URINE NEGATIVE (NEGATIVE); BARBITURATES URINE NEGATIVE (NEGATIVE); BENZODIAZEPINES URINE NEGATIVE (NEGATIVE); CANNABINOIDS URINE POSITIVE (NEGATIVE); COCAINE METABOLITE URINE POSITIVE (NEGATIVE); METHADONE URINE NEGATIVE (NEGATIVE); OPIATES URINE NEGATIVE (NEGATIVE); PHENCYCLIDINE URINE NEGATIVE (NEGATIVE)
[2020-02-11 22:27] LABS: ACETAMINOPHEN LEVEL < 2.0 UG/ML (10.0-30.0); ALBUMIN 3.5 GM/DL (3.2-5.2); ALT/SGPT 30 U/L (12-78); BILIRUBIN,DIRECT 0.2 MG/DL (0.0-0.2); BILIRUBIN,TOTAL 0.4 MG/DL (0.2-1.0); BLOOD UREA NITROGEN 21 MG/DL (7-18); CALCIUM LEVEL 9.1 MG/DL (8.5-10.1); CARBON DIOXIDE LEVEL 30 MEQ/L (21-32); CHLORIDE LEVEL 105 MEQ/L (98-107); CREATININE FOR GFR 0.99 MG/DL (0.70-1.30); ETHYL ALCOHOL (ETHANOL) < 0.003 % (0.000-0.010); GLOMERULAR FILTRATION RATE > 60.0 (>60); GLUCOSE, FASTING 78 MG/DL (70-100); SALICYLATE LEVEL 1.8 MG/DL (5.0-30.0); SODIUM LEVEL 140 MEQ/L (136-145); TOTAL PROTEIN 6.9 GM/DL (6.4-8.2)
[2020-02-11 22:49] VITALS: BP 130/68
== END 2020-02-11 22:52 | disposition home or self-care (01) ==
LOC: M ED 21:02
DX: F20.5 Residual schizophrenia (principal); F14.10 Cocaine abuse, uncomplicated; Z79.899 Other long term (current) drug therapy; Z91.048 Other nonmedicinal substance allergy status; F17.210 Nicotine dependence, cigarettes, uncomplicated
CPT/HCPCS: 36415; 80048; 80076; 80307; 84443; 85027; 99284; G0480

== ENCOUNTER 2020-02-20 18:56 | Emergency (ER) | payer OTHER ==
[~2020-02-20] VITALS: Ht 175.3 cm; Wt 73.3 kg
[2020-02-20] MEDS ORDERED: ACETAMINOPHEN 325 MG TAB PO ONE (19:30)
[2020-02-20 20:16] LABS: BLOOD UREA NITROGEN 15 MG/DL (7-18); CALCIUM LEVEL 9.1 MG/DL (8.5-10.1); CARBON DIOXIDE LEVEL 29 MEQ/L (21-32); CHLORIDE LEVEL 107 MEQ/L (98-107); CREATININE FOR GFR 0.98 MG/DL (0.70-1.30); GLOMERULAR FILTRATION RATE > 60.0 (>60); GLUCOSE, FASTING 73 MG/DL (70-100); SODIUM LEVEL 140 MEQ/L (136-145)
[2020-02-20 20:19] LABS: BASO # 0.1 10^3/uL (0.0-0.2); BASO % 0.7 % (0.0-1.0); EOS # 0.3 10^3/uL (0.0-0.5); EOS % 4.2 % (0.0-3.0); HEMATOCRIT 44.1 % (42.0-52.0); HEMOGLOBIN 14.8 g/dl (13.5-17.5); LYMPH # 2.5 10^3/uL (1.5-5.0); LYMPH % 32.3 % (24.0-44.0); MEAN CORPUSCULAR HEMOGLOBIN 30.3 pg (27.0-33.0); MEAN CORPUSCULAR HGB CONC 33.6 g/dl (32.0-36.5); MEAN CORPUSCULAR VOLUME 90.2 fl (80.0-96.0); MONO # 0.9 10^3/uL (0.0-0.8); MONO % 12.4 % (0.0-5.0); NEUTROPHILS # 3.8 10^3/uL (1.5-8.5); NEUTROPHILS % 50.1 % (36.0-66.0); PLATELET COUNT, AUTOMATED 326 10^3/uL (150-450); RED BLOOD COUNT 4.89 10^6/uL (4.30-6.10); WHITE BLOOD COUNT 7.6 10^3/uL (4.0-10.0)
[2020-02-20 21:08] VITALS: BP 129/79
--- NOTE | 2020-02-21 02:00 | REP ---
Clinical: Cough and dyspnea . Comparison: 11/14/2019 . Findings: The mediastinum and cardiac silhouette are stable and within normal limits for portable technique. The lung escalante are clear without acute consolidation, effusion, or pneumothorax. Skeletal structures are intact. Impression: No acute cardiopulmonary process appreciated. Electronically Signed by Dex Moore MD 02/21/2020 01:51 A
== END 2020-02-20 21:10 | disposition home or self-care (01) ==
LOC: M ED 18:56
DX: B34.9 Viral infection, unspecified (principal); I10 Essential (primary) hypertension; F19.19 Other psychoactive substance abuse with unspecified psychoactive substance-induced disorder; F20.9 Schizophrenia, unspecified; Z79.899 Other long term (current) drug therapy; Z87.891 Personal history of nicotine dependence; Z91.09 Other allergy status, other than to drugs and biological substances
CPT/HCPCS: 36415; 71045; 80048; 85025; 87486; 87581; 87633; 87798; 87880; 94760; 99284; U0002

== ENCOUNTER 2020-03-08 15:19 | Emergency (ER) | payer OTHER ==
[~2020-03-08] VITALS: Ht 175.3 cm; Wt 71.6 kg
[2020-03-08] MEDS ORDERED: AMANTADINE (16:27)
[2020-03-08 16:50] LABS: HEMATOCRIT 44.6 % (42.0-52.0); HEMOGLOBIN 14.5 g/dl (13.5-17.5); MEAN CORPUSCULAR HEMOGLOBIN 29.3 pg (27.0-33.0); MEAN CORPUSCULAR HGB CONC 32.5 g/dl (32.0-36.5); MEAN CORPUSCULAR VOLUME 90.1 fl (80.0-96.0); PLATELET COUNT, AUTOMATED 313 10^3/uL (150-450); RED BLOOD COUNT 4.95 10^6/uL (4.30-6.10); WHITE BLOOD COUNT 8.7 10^3/uL (4.0-10.0)
[2020-03-08 17:17] LABS: AMPHETAMINES LEVEL URINE NEGATIVE (NEGATIVE); BARBITURATES URINE NEGATIVE (NEGATIVE); BENZODIAZEPINES URINE NEGATIVE (NEGATIVE); CANNABINOIDS URINE NEGATIVE (NEGATIVE); COCAINE METABOLITE URINE NEGATIVE (NEGATIVE); METHADONE URINE NEGATIVE (NEGATIVE); OPIATES URINE NEGATIVE (NEGATIVE); PHENCYCLIDINE URINE NEGATIVE (NEGATIVE)
[2020-03-08 17:23] LABS: ACETAMINOPHEN LEVEL < 2.0 UG/ML (10.0-30.0); ALBUMIN 3.5 GM/DL (3.2-5.2); ALT/SGPT 23 U/L (12-78); BILIRUBIN,DIRECT 0.2 MG/DL (0.0-0.2); BILIRUBIN,TOTAL 0.6 MG/DL (0.2-1.0); BLOOD UREA NITROGEN 11 MG/DL (7-18); CALCIUM LEVEL 9.7 MG/DL (8.5-10.1); CARBON DIOXIDE LEVEL 28 MEQ/L (21-32); CHLORIDE LEVEL 105 MEQ/L (98-107); CREATININE FOR GFR 0.99 MG/DL (0.70-1.30); ETHYL ALCOHOL (ETHANOL) < 0.003 % (0.000-0.010); GLOMERULAR FILTRATION RATE > 60.0 (>60); GLUCOSE, FASTING 83 MG/DL (70-100); POTASSIUM SERUM 4.3 MEQ/L (3.5-5.1); SALICYLATE LEVEL 2.8 MG/DL (5.0-30.0); SODIUM LEVEL 141 MEQ/L (136-145); THYROID STIMULATING HORMONE 0.539 uIU/ML (0.358-3.740); TOTAL PROTEIN 7.1 GM/DL (6.4-8.2)
[2020-03-08 18:38] VITALS: BP 130/72
== END 2020-03-08 18:40 | disposition home or self-care (01) ==
LOC: M ED 15:19
DX: F20.9 Schizophrenia, unspecified (principal); F10.10 Alcohol abuse, uncomplicated; F19.11 Other psychoactive substance abuse, in remission; Z79.899 Other long term (current) drug therapy
CPT/HCPCS: 36415; 80048; 80076; 80307; 84443; 85027; 99284; G0480

== ENCOUNTER 2020-03-24 20:35 | Emergency (ER) | payer OTHER ==
[~2020-03-24] VITALS: Ht 175.3 cm; Wt 75.0 kg
[~2020-03-24 20:35] MED LIST changes: +AMANTADINE
[2020-03-24 21:38] LABS: HEMATOCRIT 42.7 % (42.0-52.0); HEMOGLOBIN 13.8 g/dl (13.5-17.5); MEAN CORPUSCULAR HEMOGLOBIN 29.2 pg (27.0-33.0); MEAN CORPUSCULAR HGB CONC 32.3 g/dl (32.0-36.5); MEAN CORPUSCULAR VOLUME 90.5 fl (80.0-96.0); PLATELET COUNT, AUTOMATED 279 10^3/uL (150-450); RED BLOOD COUNT 4.72 10^6/uL (4.30-6.10); WHITE BLOOD COUNT 8.6 10^3/uL (4.0-10.0)
[2020-03-24 21:44] LABS: AMPHETAMINES LEVEL URINE NEGATIVE (NEGATIVE); BARBITURATES URINE NEGATIVE (NEGATIVE); BENZODIAZEPINES URINE NEGATIVE (NEGATIVE); CANNABINOIDS URINE POSITIVE (NEGATIVE); COCAINE METABOLITE URINE NEGATIVE (NEGATIVE); METHADONE URINE NEGATIVE (NEGATIVE); OPIATES URINE NEGATIVE (NEGATIVE); PHENCYCLIDINE URINE NEGATIVE (NEGATIVE)
[2020-03-24 21:48] LABS: BLOOD UREA NITROGEN 14 MG/DL (7-18); CALCIUM LEVEL 8.8 MG/DL (8.5-10.1); CARBON DIOXIDE LEVEL 30 MEQ/L (21-32); CHLORIDE LEVEL 105 MEQ/L (98-107); CREATININE FOR GFR 0.85 MG/DL (0.70-1.30); GLOMERULAR FILTRATION RATE > 60.0 (>60); GLUCOSE, FASTING 80 MG/DL (70-100); POTASSIUM SERUM 4.3 MEQ/L (3.5-5.1); SODIUM LEVEL 140 MEQ/L (136-145)
[2020-03-24 21:49] LABS: ACETAMINOPHEN LEVEL < 2.0 UG/ML (10.0-30.0); ALBUMIN 3.5 GM/DL (3.2-5.2); ALT/SGPT 27 U/L (12-78); BILIRUBIN,DIRECT 0.2 MG/DL (0.0-0.2); BILIRUBIN,TOTAL 0.6 MG/DL (0.2-1.0); SALICYLATE LEVEL 1.8 MG/DL (5.0-30.0); THYROID STIMULATING HORMONE 0.737 uIU/ML (0.358-3.740); TOTAL PROTEIN 7.1 GM/DL (6.4-8.2)
[2020-03-24 23:04] VITALS: BP 117/77
== END 2020-03-24 23:07 | disposition home or self-care (01) ==
LOC: M ED 20:35
DX: F43.0 Acute stress reaction (principal); F20.9 Schizophrenia, unspecified; F12.90 Cannabis use, unspecified, uncomplicated; F10.99 Alcohol use, unspecified with unspecified alcohol-induced disorder; F17.210 Nicotine dependence, cigarettes, uncomplicated; Z91.048 Other nonmedicinal substance allergy status
CPT/HCPCS: 36415; 80048; 80076; 80307; 84443; 85027; 99283; G0480

== ENCOUNTER 2020-04-30 23:44 | Emergency (ER) | payer OTHER ==
[~2020-04-30] VITALS: Ht 175.3 cm; Wt 72.7 kg
[2020-04-30 23:44] VITALS: BP 121/80
[~2020-04-30 23:44] MED LIST changes: -ARIS1064
[2020-05-01] MEDS ORDERED: BACITRACIN OINTMENT 30GM TUBE TOP STA (00:15)
[2020-05-01] MEDS ORDERED: CEPHALEXIN 500 MG CAP PO ONE (00:15)
[2020-05-01] MEDS ORDERED: ACETAMINOPHEN 325 MG TAB PO ONE (00:15)
[2020-05-01] MEDS ORDERED: KEFL500C17 PO (00:25)
== END 2020-05-01 00:31 | disposition home or self-care (01) ==
LOC: M ED 23:44
DX: L97.519 Non-pressure chronic ulcer of other part of right foot with unspecified severity (principal); F17.200 Nicotine dependence, unspecified, uncomplicated; I10 Essential (primary) hypertension; J45.909 Unspecified asthma, uncomplicated; F41.9 Anxiety disorder, unspecified; F20.0 Paranoid schizophrenia; Z79.899 Other long term (current) drug therapy; Z91.048 Other nonmedicinal substance allergy status

== ENCOUNTER 2020-05-05 13:35 | Inpatient (IN) | payer MEDICAID, OTHER ==
[~2020-05-05] VITALS: Ht 175.3 cm; Wt 69.5 kg
[~2020-05-05 13:35] MED LIST changes: +KEFL500C17 PO
[2020-05-05 14:18] LABS: HEMATOCRIT 42.3 % (42.0-52.0); HEMOGLOBIN 13.8 g/dl (13.5-17.5); MEAN CORPUSCULAR HEMOGLOBIN 29.8 pg (27.0-33.0); MEAN CORPUSCULAR HGB CONC 32.6 g/dl (32.0-36.5); MEAN CORPUSCULAR VOLUME 91.4 fl (80.0-96.0); PLATELET COUNT, AUTOMATED 281 10^3/uL (150-450); RED BLOOD COUNT 4.63 10^6/uL (4.30-6.10); WHITE BLOOD COUNT 5.9 10^3/uL (4.0-10.0)
[2020-05-05 14:38] LABS: AMPHETAMINES LEVEL URINE NEGATIVE (NEGATIVE); BARBITURATES URINE NEGATIVE (NEGATIVE); BENZODIAZEPINES URINE NEGATIVE (NEGATIVE); CANNABINOIDS URINE POSITIVE (NEGATIVE); COCAINE METABOLITE URINE NEGATIVE (NEGATIVE); METHADONE URINE NEGATIVE (NEGATIVE); OPIATES URINE NEGATIVE (NEGATIVE); PHENCYCLIDINE URINE NEGATIVE (NEGATIVE)
[2020-05-05 14:58] LABS: ACETAMINOPHEN LEVEL < 2.0 UG/ML (10.0-30.0); ALBUMIN 3.6 GM/DL (3.2-5.2); ALT/SGPT 29 U/L (12-78); BILIRUBIN,DIRECT 0.1 MG/DL (0.0-0.2); BILIRUBIN,TOTAL 0.5 MG/DL (0.2-1.0); BLOOD UREA NITROGEN 15 MG/DL (7-18); CARBON DIOXIDE LEVEL 26 MEQ/L (21-32); CHLORIDE LEVEL 109 MEQ/L (98-107); CPK CREATINE PHOSPHOKINASE 1010 U/L (39-308); ETHYL ALCOHOL (ETHANOL) 0.011 % (0.000-0.010); GLOMERULAR FILTRATION RATE > 60.0 (>60); GLUCOSE, FASTING 86 MG/DL (70-100); POTASSIUM SERUM 3.9 MEQ/L (3.5-5.1); SALICYLATE LEVEL 2.5 MG/DL (5.0-30.0); SODIUM LEVEL 140 MEQ/L (136-145); THYROID STIMULATING HORMONE 0.356 uIU/ML (0.358-3.740); TOTAL PROTEIN 7.3 GM/DL (6.4-8.2)
[2020-05-05] MEDS ORDERED: NICOTINE 21MG/24HR 1 EA TRANSDERMAL TD ONE ×2 (16:15)
[2020-05-05] MEDS ORDERED: INVE1.75 IM (18:08)
[2020-05-05] MEDS ORDERED: CEPH500C PO (18:08)
[2020-05-05] MEDS ORDERED: MAALOX 30 ML SUSP *UDC PO PRN (18:15)
[2020-05-05] MEDS ORDERED: MOM 30ML SUSPENSION UDC PO PRN (18:15)
[2020-05-05] MEDS ORDERED: OLANZapine ORAL DISINTEGRATING TAB 5MG PO PRN (18:15)
[2020-05-05] MEDS ORDERED: ACETAMINOPHEN TAB 650MG DOSE (2X325MG) PO PRN (18:15)
[2020-05-05] MEDS ORDERED: traZODone 50 MG TAB PO PRN (18:15)
[2020-05-05 19:00] VITALS: BP 109/72
[2020-05-05] MEDS: OLANZapine ORAL DISINTEGRATING TAB 5MG PO SCH (22:38)
[2020-05-06 06:42] VITALS: BP 128/79
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
--- NOTE | 2020-05-06 10:12 | HPEPDOC ---
General Date of Admission May 05, 2020 at 18:07 Date of Service: May 06, 2020 Attending Physician: Walter Arevalo MD Chief Complaint The patient is a 40-year-old male admitted with a reason for visit of Unspecified Psychotic Disorder. Source: Patient, RN/, Old records Exam Limitations: No limitations History of Present Illness Mr. Bull is a 40-year-old man who was admitted yesterday for psychosis and hallucinations. I have been asked to consult for medical evaluation. He denies any current medical symptoms or complaints. Home Medications Scheduled Aripiprazole Lauroxil (Aristada) 1,064 Mg/3.9 Ml Suser.syr, 1,064 MG IM ASDIRECTED, (Reported) EVERY 8 WEEKS Cephalexin (Cephalexin) 500 Mg Capsule, 500 MG PO Q12H, (Reported) FILLED 05/01/20 FOR 6 DAYS Paliperidone Palmitate (Invega Trinza) 819 Mg/2.625 Ml Syringe, 819 MG IM Q3M, (Reported) Allergies Coded Allergies: PERFUMES (Verified Allergy, Unknown, 03/24/20) Past Medical History Medical History None except for mental health related problems including paranoia and h allucinations, polysubstance abuse, and depression Surgical History None per patient report. There are not any scars to contradict this history. Family History Significant Family History: Diabetes (maternal grandmother), Other (paranoia in maternal grandmother) Social History * Smoker: current smoker Alcohol: rarely Drugs: marijuana (reported regularly use), other ("Elzbieta" last used about three days ago) Denies current sexual activity. A-FIB/CHADSVASC A-FIB History Current/History of A-Fib/PAF?: No Current PO Anticoag Therapy: No Review of Systems Constitutional: Denies: Chills, Fever Eyes: Denies: Vision change, Redness ENT: Denies: Post Nasal Drip, Sore Throat Skin: Denies: Rash, Lesions Pulmonary: Denies: Dyspnea, Cough Cardiovascular: Denies: Chest Pain, Palpitations, Edema Gastrointestinal: Denies: Nausea, Vomiting, Diarrhea, Melena, Hematochezia Genitourinary: Denies: Dysuria, Hematuria Hematologic: Denies: Bruising, Bleeding Excessively Endocrine: Denies: Polydipsia, Polyphagia, Polyuria Musculoskeletal: Denies: Joint Pain, Muscle Pain Physical Examination General Exam: Positive: Alert, Cooperative; Negative: No Acute Distress Eye Exam: Positive: PERRLA, Conjunctiva & lids normal, EOMI; Negative: Sclera icteric ENT Exam: Positive: Atraumatic, Mucous membr. moist/pink, Pharynx Normal, Tongue Midline, Tympanic Membranes Normal (some cerumen was noted on the right side), Ext Auditory Canal Nml, Pinna Normal Neck Exam: Positive: Supple; Negative: JVD, thyromegaly, Lymphadenopathy Chest Exam: Positive: Clear to auscultation, Normal air movement; Negative: Wheezing Heart Exam: Positive: Rate Normal, Regular Rhythm, Normal S1, Normal S2; Negative: Murmurs Abdomen Exam: Positive: Normal bowel sounds, Soft; Negative: Tenderness, Hepatospenomegaly Extremity Exam: Positive: Clubbing (mild clubbing of fingernails noted); Negative: Cyanosis, Edema Skin Exam: Positive: Nl turgor and temperature, Other skin issue (there are patches of scattered hypopigmentation noted on the right temporal scalp and behind the right ear.) Neuro Exam: Positive: Normal Gait, Normal Tone Psych Exam: Positive: Other (his speech was fluent but often tangential. Some of the topics of conversation he introduced were irrational, bizarre, or fanciful.) Vital Signs Vital Signs Date Time Temp Pulse Resp B/P (MAP) Pulse Ox O2 Delivery O2 Flow Rate FiO2 05/06/20 06:42 97.2 77 12 128/79 (95) 98 Room Air Laboratory Data Labs 24H Laboratory Tests 2 05/05/20 14:07: Nucleated Red Blood Cells % (auto) 0.0, Anion Gap 5L, Glomerular Filtration Rate > 60.0, Calcium Level 9.0, Total Bilirubin 0.5, Direct Bilirubin 0.1, Aspartate Amino Transf (AST/SGOT) 41H, Alanine Aminotransferase (ALT/SGPT) 29, Alkaline Phosphatase 55, Total Creatine Kinase 1010H, Total Protein 7.3, Albumin 3.6, Albumin/Globulin Ratio 1.0, Thyroid Stimulating Hormone (TSH) 0.356L, Sali cylates Level 2.5L, Acetaminophen Level < 2.0L, Ethyl Alcohol Level 0.011H 05/05/20 14:08: Urine Opiates Screen NEGATIVE, Urine Methadone Screen NEGATIVE, Urine Barbiturates Screen NEGATIVE, Urine Phencyclidine Screen NEGATIVE, Urine Amphetamines Screen NEGATIVE, Urine Benzodiazepines Screen NEGATIVE, Urine Cocaine Metabolite Screen NEGATIVE, Urine Cannabinoids Screen POSITIVEH CBC/BMP Laboratory Tests 05/05/20 14:07 Problems (1) Schizophrenia Status: Acute Discussed With: Nurse, Patient Problem Specific Plan: Consult Specialist Problem Text: He is admitted under the care of psychiatry for this problem. I'll defer further management to them. (2) Substance abuse Status: Chronic Discussed With: Patient Problem Specific Plan: Consult Specialist, Monitor Clinically Problem Text: He has a history of recent marijuana use and stimulant use (Elzbieta). He reports that he feels physically normal at this time. I'll defer ongoing management of this issue to psychiatry. (3) Tinea versicolor Status: Chronic Response to Treatment: Stable Discussed With: Patient Problem Specific Plan: Monitor Clinically Problem Text: I noted this and asked if it was causing him problems or discomfort. He denies any symptoms related to this. He declined any treatment. (4) Granulomatous lung disease Status: Chronic Problem Text: Reviewing his record he does seem to have a history of granulomatous lung disease. This was first noted earlier this year (2019) and does not appear to have been present in 2014. I'm not sure when he developed this. It's not relevant to the current admission, but should be followed up by someone in the outpatient setting. It's not clear to me if he has an outpatient physician. This should be coordinated on discharge if possible. Plan / VTE VTE Prophylaxis Ordered?: No (very mobile around the floor) Walter Arevalo MD May 06, 2020 10:12
[2020-05-06 15:58] VITALS: BP 133/70
[2020-05-06] MEDS: OLANZapine ORAL DISINTEGRATING TAB 5MG PO SCH (20:52)
[2020-05-07 06:32] VITALS: BP 134/79
--- NOTE | 2020-05-07 07:46 | MHIPN ---
DATE OF SERVICE: 05/06/2020 The patient today tells me that he is doing "good". He says that he is not hearing the voices telling him to hurt himself anymore, but he says he is still hearing children crying. He says he did not sleep good last night. MENTAL STATUS EXAMINATION: This patient is alert and oriented times three, pleasant and cooperative. He responds with short sentences that tend to be appropriate. He is not spontaneous. There is no formal thought disorder. He says his mood is better. His affect is flat. He is still having auditory hallucinations. He is denying command hallucinations. He is denying suicidal ideations. Concentration is fair. Memory grossly intact. Insight and judgment is poor. DIAGNOSIS: Schizophrenia. Unspecified depressive disorder. Cannabis use disorder. History of alcohol use disorder. TREATMENT PLAN: The patient will continue to be monitored for continued elevation and stabilization of his mood and continued resolution of his auditory hallucinations and continued resolution of suicidal ideations.
[2020-05-07] MEDS: OLANZapine ORAL DISINTEGRATING TAB 5MG PO SCH (21:06)
[2020-05-08 07:01] VITALS: BP 152/80
[2020-05-08 16:39] VITALS: BP 126/76
--- NOTE | 2020-05-08 20:28 | MHIPN ---
DATE: 05/08/2020 The patient today tells me that he is doing "good." He tells me that he is not hearing any voices today. He tells me, "I'm just talking to myself about my papers" and he had a bunch of papers in his hand. He is denying suicidal ideations. MENTAL STATUS EXAM: This patient is alert and oriented times three. Eye contact is fair. Psychomotor activity is normal. There is no formal thought disorder noted. He says that his mood is good, his affect is constricted but appropriate to mood. He is not psychotic. He is denying suicidal ideations. Concentration is fair. Memory grossly intact. Insight and judgment poor. DIAGNOSES: Schizophrenia, unspecified. Depressive disorder. Cannabis use disorder. History of alcohol use disorder. Stimulant use disorder (quan). TREATMENT PLAN: At this point, the patient seems to have improved. We will continue monitor him for continued resolution of psychotic symptoms and of any suicidal ideations and further stabilization of his mood. If he continues to do well, we will look at discharge for him tomorrow.
[2020-05-08] MEDS: OLANZapine ORAL DISINTEGRATING TAB 5MG PO SCH (21:42)
[2020-05-09 06:48] VITALS: BP 131/85
[2020-05-09 16:05] VITALS: BP 122/74
[2020-05-09] MEDS ORDERED: OLAN5ZYD PO (16:13)
[2020-05-09] MEDS: OLANZapine ORAL DISINTEGRATING TAB 5MG PO SCH (21:00)
== END 2020-05-09 16:50 | disposition home or self-care (01) | DRG 750 ==
LOC: M ED 13:35 → M ED INP 18:07 → M PSY 19:37
PROVIDERS: ADMIT Psychiatry & Neurology Addiction Medicine; ATTEND Psychiatry & Neurology Addiction Medicine
DX: F20.9 Schizophrenia, unspecified (principal); J84.10 Pulmonary fibrosis, unspecified; F12.90 Cannabis use, unspecified, uncomplicated; F15.90 Other stimulant use, unspecified, uncomplicated; F17.200 Nicotine dependence, unspecified, uncomplicated; B36.0 Pityriasis versicolor; Z79.899 Other long term (current) drug therapy

== ENCOUNTER 2020-05-12 19:32 | Emergency (ER) | payer MEDICAID, OTHER ==
[~2020-05-12] VITALS: Ht 172.7 cm; Wt 85.5 kg
[~2020-05-12 19:32] MED LIST changes: +CEPH500C PO; +OLAN5ZYD PO
[2020-05-12] MEDS ORDERED: NALOXONE 2MG/2ML SYRINGE (J2310 PER 1MG) IV STA (19:55)
[2020-05-12 20:02] LABS: BASO # 0.1 10^3/uL (0.0-0.2); BASO % 0.6 % (0.0-1.0); EOS # 0.1 10^3/uL (0.0-0.5); EOS % 1.1 % (0.0-3.0); HEMATOCRIT 47.6 % (42.0-52.0); HEMOGLOBIN 15.3 g/dl (13.5-17.5); LYMPH # 3.2 10^3/uL (1.5-5.0); LYMPH % 38.7 % (24.0-44.0); MEAN CORPUSCULAR HEMOGLOBIN 29.7 pg (27.0-33.0); MEAN CORPUSCULAR HGB CONC 32.1 g/dl (32.0-36.5); MEAN CORPUSCULAR VOLUME 92.2 fl (80.0-96.0); MONO # 0.9 10^3/uL (0.0-0.8); MONO % 10.4 % (0.0-5.0); NEUTROPHILS # 4.1 10^3/uL (1.5-8.5); NEUTROPHILS % 49.1 % (36.0-66.0); PLATELET COUNT, AUTOMATED 312 10^3/uL (150-450); RED BLOOD COUNT 5.16 10^6/uL (4.30-6.10); WHITE BLOOD COUNT 8.3 10^3/uL (4.0-10.0)
--- NOTE | 2020-05-12 20:24 | REPVR ---
PROCEDURE INFORMATION: Exam: CT Head Without Contrast Exam date and time: 05/12/2020 8:15 PM Age: 40 years old Clinical indication: Altered mental status/memory loss; Confusion or disorientation; Additional info: AMS TECHNIQUE: Imaging protocol: Computed tomography of the head without contrast. Radiation optimization: All CT scans at this facility use at least one of these dose optimization techniques: automated exposure control; mA and/or kV adjustment per patient size (includes targeted exams where dose is matched to clinical indication); or iterative reconstruction. COMPARISON: No relevant prior studies available. FINDINGS: Brain: Normal. No hemorrhage. Unremarkable white matter. No mass effect. Ventricles: Normal. No ventriculomegaly. Bones/joints: Unremarkable. No acute fracture. Sinuses: Visualized sinuses are unremarkable. No fluid levels. Mastoid air cells: Visualized mastoid air cells are well aerated. Soft tissues: Unremarkable. IMPRESSION: No acute intracranial abnormality. Electronically signed by: Gbao Leblanc On 05/12/2020 20:23:31 PM
[2020-05-12] MEDS ORDERED: NS 1,000 ML IV ONE (20:30)
[2020-05-12 20:34] LABS: AMPHETAMINES LEVEL URINE NEGATIVE (NEGATIVE); BARBITURATES URINE NEGATIVE (NEGATIVE); BENZODIAZEPINES URINE NEGATIVE (NEGATIVE); CANNABINOIDS URINE NEGATIVE (NEGATIVE); COCAINE METABOLITE URINE NEGATIVE (NEGATIVE); METHADONE URINE NEGATIVE (NEGATIVE); OPIATES URINE NEGATIVE (NEGATIVE); PHENCYCLIDINE URINE NEGATIVE (NEGATIVE)
[2020-05-12 21:00] LABS: ALT/SGPT 35 U/L (12-78); BILIRUBIN,DIRECT 0.1 MG/DL (0.0-0.2); BILIRUBIN,TOTAL 0.5 MG/DL (0.2-1.0); BLOOD UREA NITROGEN 10 MG/DL (7-18); CALCIUM LEVEL 8.8 MG/DL (8.5-10.1); CARBON DIOXIDE LEVEL 31 MEQ/L (21-32); CHLORIDE LEVEL 110 MEQ/L (98-107); CPK CREATINE PHOSPHOKINASE 1133 U/L (39-308); CREATININE FOR GFR 0.94 MG/DL (0.70-1.30); ETHYL ALCOHOL (ETHANOL) 0.325 % (0.000-0.010); GLOMERULAR FILTRATION RATE > 60.0 (>60); GLUCOSE, FASTING 93 MG/DL (70-100); POTASSIUM SERUM 3.7 MEQ/L (3.5-5.1); SODIUM LEVEL 145 MEQ/L (136-145); TOTAL PROTEIN 8.3 GM/DL (6.4-8.2)
[2020-05-12] MEDS: D5W/0.9% SODIUM CHLORIDE 1,000 ML IV SCH (23:00)
[2020-05-13] MEDS: D5W/0.9% SODIUM CHLORIDE 1,000 ML IV SCH (03:54)
[2020-05-13 06:18] VITALS: BP 104/65
--- NOTE | 2020-05-13 19:07 | ECGEPIP ---
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
== END 2020-05-13 06:28 | disposition home or self-care (01) ==
LOC: EDBD 19:32 → M ED 19:32
DX: F10.129 Alcohol abuse with intoxication, unspecified (principal); Z91.09 Other allergy status, other than to drugs and biological substances
CPT/HCPCS: 70450; 80048; 80076; 80307; 82550; 85025; 93005; 96360; 96361; 96365; 96366; 96374; 99285; G0480; J2310

== ENCOUNTER 2020-05-20 05:39 | Emergency (ER) | payer OTHER ==
[~2020-05-20] VITALS: Ht 175.3 cm; Wt 72.7 kg
[2020-05-20] MEDS ORDERED: TRAZ-252 PO (05:48)
[2020-05-20] MEDS ORDERED: HALO20TA PO (05:48)
[2020-05-20] MEDS ORDERED: NS 1,000 ML IV ONE (06:15)
[2020-05-20 07:09] LABS: BASO # 0.1 10^3/uL (0.0-0.2); BASO % 0.6 % (0.0-1.0); EOS # 0.1 10^3/uL (0.0-0.5); EOS % 1.1 % (0.0-3.0); HEMATOCRIT 41.5 % (42.0-52.0); HEMOGLOBIN 13.6 g/dl (13.5-17.5); LYMPH # 2.5 10^3/uL (1.5-5.0); LYMPH % 30.6 % (24.0-44.0); MEAN CORPUSCULAR HEMOGLOBIN 29.5 pg (27.0-33.0); MEAN CORPUSCULAR HGB CONC 32.8 g/dl (32.0-36.5); MONO # 0.9 10^3/uL (0.0-0.8); MONO % 10.9 % (0.0-5.0); NEUTROPHILS # 4.5 10^3/uL (1.5-8.5); NEUTROPHILS % 56.7 % (36.0-66.0); PLATELET COUNT, AUTOMATED 287 10^3/uL (150-450); RED BLOOD COUNT 4.61 10^6/uL (4.30-6.10)
[2020-05-20 07:28] LABS: ACETAMINOPHEN LEVEL < 2.0 UG/ML (10.0-30.0); ALBUMIN 3.3 GM/DL (3.2-5.2); ALT/SGPT 29 U/L (12-78); AMYLASE 40 U/L (25-115); BILIRUBIN,DIRECT 0.1 MG/DL (0.0-0.2); BILIRUBIN,TOTAL 0.6 MG/DL (0.2-1.0); ETHYL ALCOHOL (ETHANOL) < 0.003 % (0.000-0.010); LIPASE 116 U/L (73-393); SALICYLATE LEVEL < 1.7 MG/DL (5.0-30.0)
[2020-05-20 09:13] LABS: AMPHETAMINES LEVEL URINE NEGATIVE (NEGATIVE); BARBITURATES URINE NEGATIVE (NEGATIVE); BENZODIAZEPINES URINE NEGATIVE (NEGATIVE); CANNABINOIDS URINE POSITIVE (NEGATIVE); COCAINE METABOLITE URINE NEGATIVE (NEGATIVE); METHADONE URINE NEGATIVE (NEGATIVE); OPIATES URINE NEGATIVE (NEGATIVE); PHENCYCLIDINE URINE NEGATIVE (NEGATIVE)
[2020-05-20] MEDS ORDERED: POTASSIUM CHLORIDE 10 MEQ SR TABLET PO ONE (09:15)
[2020-05-20 10:16] VITALS: BP 138/72
== END 2020-05-20 10:17 | disposition home or self-care (01) ==
LOC: M ED 05:39
DX: R10.84 Generalized abdominal pain (principal); E87.6 Hypokalemia; R11.2 Nausea with vomiting, unspecified; R19.7 Diarrhea, unspecified; I10 Essential (primary) hypertension; J45.909 Unspecified asthma, uncomplicated; F19.10 Other psychoactive substance abuse, uncomplicated; F20.0 Paranoid schizophrenia; F17.210 Nicotine dependence, cigarettes, uncomplicated; Z79.899 Other long term (current) drug therapy
CPT/HCPCS: 36415; 80047; 80076; 80307; 81001; 82150; 83690; 85025; 99284; G0480

== ENCOUNTER 2020-06-24 22:58 | Inpatient (IN) | payer MEDICAID, OTHER ==
[~2020-06-24] VITALS: Ht 154.9 cm; Wt 71.0 kg
[2020-06-24] MEDS ORDERED: INVE1.75 IM (23:18)
[2020-06-24] MEDS ORDERED: OLAN5ZYD PO (23:18)
[2020-06-24 23:24] LABS: HEMATOCRIT 38.3 % (42.0-52.0); HEMOGLOBIN 12.8 g/dl (13.5-17.5); MEAN CORPUSCULAR HEMOGLOBIN 30.9 pg (27.0-33.0); MEAN CORPUSCULAR HGB CONC 33.4 g/dl (32.0-36.5); MEAN CORPUSCULAR VOLUME 92.5 fl (80.0-96.0); PLATELET COUNT, AUTOMATED 263 10^3/uL (150-450); RED BLOOD COUNT 4.14 10^6/uL (4.30-6.10); WHITE BLOOD COUNT 8.2 10^3/uL (4.0-10.0)
[2020-06-24 23:52] LABS: AMPHETAMINES LEVEL URINE NEGATIVE (NEGATIVE); BARBITURATES URINE NEGATIVE (NEGATIVE); BENZODIAZEPINES URINE NEGATIVE (NEGATIVE); CANNABINOIDS URINE POSITIVE (NEGATIVE); COCAINE METABOLITE URINE NEGATIVE (NEGATIVE); METHADONE URINE NEGATIVE (NEGATIVE); OPIATES URINE NEGATIVE (NEGATIVE); PHENCYCLIDINE URINE NEGATIVE (NEGATIVE)
[2020-06-25 00:22] LABS: ACETAMINOPHEN LEVEL < 2.0 UG/ML (10.0-30.0); ALBUMIN 3.4 GM/DL (3.2-5.2); ALT/SGPT 32 U/L (12-78); BILIRUBIN,DIRECT < 0.1 MG/DL (0.0-0.2); BILIRUBIN,TOTAL 0.4 MG/DL (0.2-1.0); BLOOD UREA NITROGEN 18 MG/DL (7-18); CALCIUM LEVEL 9.1 MG/DL (8.5-10.1); CARBON DIOXIDE LEVEL 28 MEQ/L (21-32); CHLORIDE LEVEL 108 MEQ/L (98-107); CREATININE FOR GFR 0.99 MG/DL (0.70-1.30); ETHYL ALCOHOL (ETHANOL) < 0.003 % (0.000-0.010); GLOMERULAR FILTRATION RATE > 60.0 (>60); GLUCOSE, FASTING 129 MG/DL (70-100); POTASSIUM SERUM 4.6 MEQ/L (3.5-5.1); SALICYLATE LEVEL < 1.7 MG/DL (5.0-30.0); SODIUM LEVEL 143 MEQ/L (136-145); THYROID STIMULATING HORMONE 0.658 uIU/ML (0.358-3.740); TOTAL PROTEIN 6.9 GM/DL (6.4-8.2)
[2020-06-25] MEDS ORDERED: ARISTADA IM (02:25)
[2020-06-25] MEDS ORDERED: ARIS1064 IM (08:41)
[2020-06-25] MEDS ORDERED: MOM 30ML SUSPENSION UDC PO PRN (17:45)
[2020-06-25] MEDS ORDERED: ACETAMINOPHEN TAB 650MG DOSE (2X325MG) PO PRN (17:45)
[2020-06-25] MEDS ORDERED: traZODone 50 MG TAB PO PRN (17:45)
[2020-06-25] MEDS ORDERED: MAALOX 30 ML SUSP *UDC PO PRN (17:45)
[2020-06-25 22:09] VITALS: BP 134/95
[2020-06-26 06:49] VITALS: BP 131/64
--- NOTE | 2020-06-26 16:05 | HPEPDOC ---
General Date of Admission Jun 25, 2020 at 21:20 Date of Service: Jun 26, 2020 Chief Complaint The patient is a 40-year-old male who presented with suicidal ideation History of Present Illness Patient is a 40 year old male with no significant PMHx who presented to the ER with complaints of suicidal ideation. Patient was admitted to [facility] under the care of psychiatry. Hospitalist service was consulted for medical screening evaluation. Currently patient denies any headache, nausea, vomiting, chest pain, shortness of breath, palpitations, cough, abdominal pain, constipation, diarrhea or urinary discomfort. Reports his appetite is fairly normal, denies any changes in his weight. Home Medications Scheduled Aripiprazole Lauroxil (Aristada) 1,064 Mg/3.9 Ml Suser.syr, 1,064 MG IM ASDIRECTED, (Reported) EVERY 8 WEEKS Paliperidone Palmitate (Invega Trinza) 819 Mg/2.625 Ml Syringe, 819 MG IM QMONTH, (Reported) Allergies Coded Allergies: PERFUMES (Verified Allergy, Unknown, 03/24/20) Past Medical History Medical History No significant PSHx Surgical History No significant PSHx Family History - No history of malignancies Social History - Reports the use of alcohol, tobacco or illicit drugs (Elzbieta) - Denies recent travel or sick contacts - Lives with mother Review of Systems Other systems 10 point review of systems complete, all negative otherwise stated in HPI Vital Signs - Vitals: BP [131/64], HR [67], RR [12], Sat [99%RA], Temp [98.7F] - General: Sitting up in bed, No acute distress, Speaking in full sentences, AAOx3 - HEENT: NC, AT, PERRLA - CVS: RRR, +S1S2 - Lungs: Fair air entry bilaterally, No wheezing / rales / rhonchi - Abdomen: Soft, Non-distended, Non-tender - Extremities: No lower extremity edema, No calf tenderness - Neuro: No focal motor or sensory deficit - Skin: No visible rashes Plan / VTE VTE Prophylaxis Ordered?: Yes Plan Plan Suicidal ideation - Currently admitted to [facility], managed by psychiatry No significant PMHx DVT prophylaxis - Will c/w early ambulation Female media relations director was present throughout duration of History and Physical exam Hospitalist service will sign off; please re-consult as needed SANTANA FRANCOIS MD Jun 26, 2020 16:05
[2020-06-26 17:12] VITALS: BP 134/84
[2020-06-27] MEDS ORDERED: ENTER DRUG NAME HERE (PATIENT'S OWN MED) IM ONE (08:45)
[2020-06-27] MEDS ORDERED: ARIS1064 IM (08:52)
--- NOTE | 2020-06-27 10:49 | MHDSPDOC ---
[facility] Discharge Summary Discharge Summary DATE OF ADMISSION: Jun 25, 2020 at 21:20 DATE OF DISCHARGE: June 27, 2020 10:50 DISCHARGE DIAGNOSES: 1. Schizophrenia Disorder, Paranoid Type REASON FOR ADMISSION: Patient is a 40 year old Single, Disabled and Intellectually Disabled. Domiciled Male who presented to the ED with reports of auditory hallucinations and suicidal ideation to hang himself. CONSULTANTS INVOLVED: See Medical H & P report TREATMENT AND PROGRESS ON THE UNIT : Patient was afforded the following treatment modalities 1) Individual Therapy, 2) Group Therapy, 3) Medication Management, 4) Milieu Therapy, 5) Safe Environment HOSPITAL COURSE: Patient was admitted to Inpatient Mental Health Unit and was cooperative with the admission process. He presented today with no complaints of depressive symptoms and no anxiety and he denies suicidal ideation. Patient is seen in the milieu, and was compliant with treatment. Staff reconciled IM me dication dosages and it appears that the patient missed his Aristada IM injection on 06/01/20. We do not carry that in our pharmacy. Today, I sent a Rx for the Aristada with the hope that it could be delivered to the hospital and administered before he was discharged. The Aristada injection was not available in any of the [place] [facility]. [facility] the injection there available to him. At this time, we will discharge the [facility] to [facility] for his routine injection. He denies needing to stay, he reports the continued auditory hallucinations but denies having thoughts to self-harm. DISCHARGE ASSESSMENT: Patient is psychiatrically stable to be discharged today to [facility] for his injection. MENTAL STATUS EXAMINATION ON DISCHARGE: Patient is a 40-year old male, Single, Domiciled Male who is stable and is denying need for continued hospitalization. According to staff, patient will self-present to the ED when he is experiencing exacerbation of Schizophrenic symptoms i.e.increased hallucinations, depression or suicidal ideation. He was aware that he was due to his injection and it appears that he was here to receive that. Patient presented with limited ability to give a complete social history. While on the unit, he was often seen coloring or writing. Speech is normal rate tone and volume Language skills are Fair Thought processes including: Linear and goal oriented Thought content: None. He was not observed and he denies paranoia, delusional thoughts, obsessive thinking, rumination, leila, racing thoughts or flight of ideas. Abstract reasoning, and computation: Fair. Description of associations: None at this time. Description of abnormal or psychotic thoughts: Auditory Hallucinations, this has been normal for patient Judgment: Fair Insight: Fair Orientation to alert and oriented to person, place, time and situation Recent and remote memory: Patient is a poor history, intact Attention span and concentration: Fair Language: Limited, speaks Romansh but his comprehension is limited Fund of knowledge: Limited, patient is intellectually disabled Mood: Euthymic Affect: Euthymic MEDICATIONS ON DISCHARGE: Patient is continued on Aristada 1064 mg mg every 8 weeks, he will receive an injection today Invega PLAN/FOLLOWUP ARRANGEMENTS: Patient will follow up with [facility]. The amount of time spent in the coordination of care for this patient was approximately 45 minutes. Vital Signs/I&Os Vital Signs Date Time Temp Pulse Resp B/P (MAP) Pulse Ox O2 Delivery O2 Flow Rate FiO2 06/26/20 17:12 98.5 65 14 134/84 (101) 06/26/20 06:49 99 Room Air Medications Scheduled Aripiprazole Lauroxil (Aristada) 1,064 Mg/3.9 Ml Suser.syr, 1,064 MG IM ASDIRECTED for Antipsychotic, #1 EVERY 8 WEEKS Paliperidone Palmitate (Invega Trinza) 819 Mg/2.625 Ml Syringe, 819 MG IM QMO [facility], (Reported) Allergies Coded Allergies: PERFUMES (Verified Allergy, Unknown, 03/24/20) KRYSTIN IRWIN NP Jun 27, 2020 10:49
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
--- NOTE | 2020-07-17 11:16 | ECGEPIP ---
[facility] - ED Test Date: 2020-06-24 Pat Name: SHRAVAN PARRA Department: Room: - Gender: Male Sound Assistant: LR : 1980 Requested By: SHAILA CHENG Order Number: [id number] Reading MD: Manjit Adams Measurements Intervals [place] Rate: 64 P: 31 LA: 126 QRS: 69 QRSD: 90 T: 58 QT: 351 QTc: 364 Interpretive Statements NORMAL SINUS RHYTHM SEE SCANNED DOWNTIME REPORT
== END 2020-06-27 14:58 | disposition home or self-care (01) | DRG 750 ==
LOC: M ED 22:58 → M PSY 06-25 21:20 → M ED 06-25 21:22
PROVIDERS: ADMIT Psychiatry & Neurology Addiction Medicine; ATTEND Psychiatry & Neurology Psychiatry
DX: F20.0 Paranoid schizophrenia (principal); F79 Unspecified intellectual disabilities; R45.851 Suicidal ideations; Z79.899 Other long term (current) drug therapy

== ENCOUNTER 2020-07-22 12:10 | Emergency (ER) | payer MEDICAID ==
[~2020-07-22] VITALS: Ht 175.3 cm; Wt 70.9 kg
[2020-07-22 12:10] VITALS: BP 122/74
[~2020-07-22 12:10] MED LIST changes: +ARISTADA IM
[2020-07-22 12:59] LABS: HEMATOCRIT 41.4 % (42.0-52.0); HEMOGLOBIN 13.9 g/dl (13.5-17.5); MEAN CORPUSCULAR HEMOGLOBIN 30.6 pg (27.0-33.0); MEAN CORPUSCULAR HGB CONC 33.6 g/dl (32.0-36.5); MEAN CORPUSCULAR VOLUME 91.2 fl (80.0-96.0); PLATELET COUNT, AUTOMATED 271 10^3/uL (150-450); RED BLOOD COUNT 4.54 10^6/uL (4.30-6.10); WHITE BLOOD COUNT 9.2 10^3/uL (4.0-10.0)
[2020-07-22 13:22] LABS: AMPHETAMINES LEVEL URINE NEGATIVE (NEGATIVE); BARBITURATES URINE NEGATIVE (NEGATIVE); BENZODIAZEPINES URINE NEGATIVE (NEGATIVE); CANNABINOIDS URINE POSITIVE (NEGATIVE); COCAINE METABOLITE URINE NEGATIVE (NEGATIVE); METHADONE URINE NEGATIVE (NEGATIVE); OPIATES URINE NEGATIVE (NEGATIVE); PHENCYCLIDINE URINE NEGATIVE (NEGATIVE)
[2020-07-22 13:31] LABS: ACETAMINOPHEN LEVEL < 2.0 UG/ML (10.0-30.0); ALBUMIN 3.5 GM/DL (3.2-5.2); ALT/SGPT 44 U/L (12-78); BILIRUBIN,DIRECT 0.1 MG/DL (0.0-0.2); BILIRUBIN,TOTAL 0.4 MG/DL (0.2-1.0); BLOOD UREA NITROGEN 15 MG/DL (7-18); CALCIUM LEVEL 8.7 MG/DL (8.5-10.1); CARBON DIOXIDE LEVEL 27 MEQ/L (21-32); CHLORIDE LEVEL 110 MEQ/L (98-107); CREATININE FOR GFR 0.82 MG/DL (0.70-1.30); ETHYL ALCOHOL (ETHANOL) 0.004 % (0.000-0.010); GLOMERULAR FILTRATION RATE > 60.0 (>60); GLUCOSE, FASTING 67 MG/DL (70-100); SALICYLATE LEVEL < 1.7 MG/DL (5.0-30.0); SODIUM LEVEL 143 MEQ/L (136-145); THYROID STIMULATING HORMONE 0.565 uIU/ML (0.358-3.740)
[2020-07-22] MEDS ORDERED: ARIS1064 IM (14:49)
== END 2020-07-22 17:19 | disposition home or self-care (01) ==
LOC: M ED 12:10
DX: F20.9 Schizophrenia, unspecified (principal); R45.851 Suicidal ideations; F19.10 Other psychoactive substance abuse, uncomplicated; F33.9 Major depressive disorder, recurrent, unspecified; F17.200 Nicotine dependence, unspecified, uncomplicated; Z79.899 Other long term (current) drug therapy
CPT/HCPCS: 36415; 80048; 80076; 80307; 84443; 85027; 99284; G0480

== ENCOUNTER 2020-08-17 06:35 | Emergency (ER) | payer MEDICAID, OTHER ==
[~2020-08-17] VITALS: Ht 175.3 cm; Wt 69.1 kg
[2020-08-17 07:41] LABS: HEMATOCRIT 42.3 % (42.0-52.0); HEMOGLOBIN 13.8 g/dl (13.5-17.5); MEAN CORPUSCULAR HEMOGLOBIN 29.6 pg (27.0-33.0); MEAN CORPUSCULAR HGB CONC 32.6 g/dl (32.0-36.5); MEAN CORPUSCULAR VOLUME 90.6 fl (80.0-96.0); PLATELET COUNT, AUTOMATED 400 10^3/uL (150-450); RED BLOOD COUNT 4.67 10^6/uL (4.30-6.10); WHITE BLOOD COUNT 14.7 10^3/uL (4.0-10.0)
[2020-08-17 08:10] LABS: ACETAMINOPHEN LEVEL < 2.0 UG/ML (10.0-30.0); ALBUMIN 2.7 GM/DL (3.2-5.2); ALT/SGPT 35 U/L (12-78); BILIRUBIN,DIRECT < 0.1 MG/DL (0.0-0.2); BILIRUBIN,TOTAL 0.3 MG/DL (0.2-1.0); BLOOD UREA NITROGEN 14 MG/DL (7-18); CALCIUM LEVEL 8.7 MG/DL (8.5-10.1); CARBON DIOXIDE LEVEL 27 MEQ/L (21-32); CHLORIDE LEVEL 107 MEQ/L (98-107); CREATININE FOR GFR 0.81 MG/DL (0.70-1.30); ETHYL ALCOHOL (ETHANOL) < 0.003 % (0.000-0.010); GLOMERULAR FILTRATION RATE > 60.0 (>60); GLUCOSE, FASTING 91 MG/DL (70-100); POTASSIUM SERUM 4.8 MEQ/L (3.5-5.1); SALICYLATE LEVEL 1.7 MG/DL (5.0-30.0); SODIUM LEVEL 140 MEQ/L (136-145); THYROID STIMULATING HORMONE 0.608 uIU/ML (0.358-3.740)
[2020-08-17 12:31] LABS: AMPHETAMINES LEVEL URINE NEGATIVE (NEGATIVE); BARBITURATES URINE NEGATIVE (NEGATIVE); BENZODIAZEPINES URINE NEGATIVE (NEGATIVE); CANNABINOIDS URINE POSITIVE (NEGATIVE); COCAINE METABOLITE URINE NEGATIVE (NEGATIVE); METHADONE URINE NEGATIVE (NEGATIVE); OPIATES URINE NEGATIVE (NEGATIVE); PHENCYCLIDINE URINE NEGATIVE (NEGATIVE)
[2020-08-17 12:37] VITALS: BP 138/88
--- NOTE | 2020-08-18 07:35 | ECGEPIP ---
[facility] - ED Test Date: 2020-08-17 Pat Name: SHRAVAN PARRA Department: Room: - Gender: Male Director Of People: : 1980 Requested By: VENKAT Carbajal Order Number: [id number] Reading MD: Cameron Carlton Measurements Intervals [place] Rate: 74 P: 65 DE: 139 QRS: 69 QRSD: 84 T: 56 QT: 332 QTc: 370 Interpretive Statements SINUS RHYTHM Electronically Signed on 08-18-2020 7:35:37 EDT by Cameron Carlton
== END 2020-08-17 14:23 | disposition home or self-care (01) ==
LOC: M ED 06:35
DX: F20.9 Schizophrenia, unspecified (principal); R45.851 Suicidal ideations; R07.9 Chest pain, unspecified; F17.200 Nicotine dependence, unspecified, uncomplicated; Z79.899 Other long term (current) drug therapy
CPT/HCPCS: 36415; 80048; 80076; 80307; 84443; 85027; 87486; 87581; 87633; 87798; 93005; 99284; G0480

== ENCOUNTER 2020-08-21 03:09 | Emergency (ER) | payer OTHER ==
[~2020-08-21] VITALS: Ht 175.3 cm; Wt 69.9 kg
--- NOTE | 2020-08-21 04:31 | REPVR ---
PROCEDURE INFORMATION: Exam: XR Chest, 2 Views Exam date and time: 08/21/2020 3:54 AM Age: 40 years old Clinical indication: Cough TECHNIQUE: Imaging protocol: XR of the chest Views: 2 views. COMPARISON: CR PORTABLE CHEST X-RAY 02/20/2020 8:16 PM FINDINGS: Lungs: There is a poorly defined opacity in the posterior sulcus on the lateral view, which may be in the right lower lobe or the left lower lobe. This is not clearly identified on the frontal view, probably because of its inferior location. The lungs otherwise appear clear. Pleural space: No pleural effusions or pneumothorax identified. Heart/Mediastinum: The cardiomediastinal silhouette is within normal size limits. Bones/joints: Unremarkable. IMPRESSION: Opacity posteriorly and inferiorly, visible on the lateral view only, which is nonspecific but may represent pneumonia in the right lower lobe or left lower lobe. Electronically signed by: Piper Niño On 08/21/2020 04:30:49 AM
[2020-08-21] MEDS ORDERED: PROAAER10 INH (05:07)
[2020-08-21] MEDS ORDERED: LEVA750T7 PO (05:07)
[2020-08-21] MEDS ORDERED: TESS100C PO (05:07)
[2020-08-21] MEDS ORDERED: LevoFLOXacin 750 MG TABLET PO ONE (05:15)
[2020-08-21 05:35] VITALS: BP 115/76
== END 2020-08-21 05:38 | disposition home or self-care (01) ==
LOC: M ED 03:09
DX: J18.9 Pneumonia, unspecified organism (principal); F20.9 Schizophrenia, unspecified; F17.200 Nicotine dependence, unspecified, uncomplicated; Z91.048 Other nonmedicinal substance allergy status; Z79.899 Other long term (current) drug therapy

== ENCOUNTER 2020-09-10 01:53 | Emergency (ER) | payer OTHER ==
[~2020-09-10] VITALS: Ht 175.3 cm; Wt 81.8 kg
[~2020-09-10 01:53] MED LIST changes: +LEVA750T7 PO; +PROAAER10 INH; +TESS100C PO
[2020-09-10 01:54] VITALS: BP 130/79
== END 2020-09-10 03:08 | disposition home or self-care (01) ==
LOC: M ED 01:53
DX: F20.9 Schizophrenia, unspecified (principal); Z79.51 Long term (current) use of inhaled steroids; Z79.899 Other long term (current) drug therapy; Z91.09 Other allergy status, other than to drugs and biological substances

== ENCOUNTER 2020-09-16 02:52 | Emergency (ER) | payer OTHER ==
[~2020-09-16] VITALS: Ht 175.3 cm; Wt 94.0 kg
[2020-09-16 04:14] LABS: HEMATOCRIT 41.4 % (42.0-52.0); HEMOGLOBIN 13.1 g/dl (13.5-17.5); MEAN CORPUSCULAR HEMOGLOBIN 28.9 pg (27.0-33.0); MEAN CORPUSCULAR HGB CONC 31.6 g/dl (32.0-36.5); MEAN CORPUSCULAR VOLUME 91.2 fl (80.0-96.0); PLATELET COUNT, AUTOMATED 292 10^3/uL (150-450); RED BLOOD COUNT 4.54 10^6/uL (4.30-6.10); WHITE BLOOD COUNT 8.9 10^3/uL (4.0-10.0)
[2020-09-16 04:49] LABS: ACETAMINOPHEN LEVEL < 2.0 UG/ML (10.0-30.0); ALBUMIN 3.2 GM/DL (3.2-5.2); ALT/SGPT 22 U/L (12-78); BILIRUBIN,DIRECT 0.2 MG/DL (0.0-0.2); BILIRUBIN,TOTAL 0.7 MG/DL (0.2-1.0); BLOOD UREA NITROGEN 18 MG/DL (7-18); CALCIUM LEVEL 8.8 MG/DL (8.5-10.1); CARBON DIOXIDE LEVEL 29 MEQ/L (21-32); CHLORIDE LEVEL 107 MEQ/L (98-107); CREATININE FOR GFR 0.95 MG/DL (0.70-1.30); ETHYL ALCOHOL (ETHANOL) < 0.003 % (0.000-0.010); GLOMERULAR FILTRATION RATE > 60.0 (>60); GLUCOSE, FASTING 82 MG/DL (70-100); POTASSIUM SERUM 4.5 MEQ/L (3.5-5.1); SALICYLATE LEVEL 2.1 MG/DL (5.0-30.0); SODIUM LEVEL 139 MEQ/L (136-145); THYROID STIMULATING HORMONE 0.609 uIU/ML (0.358-3.740); TOTAL PROTEIN 6.5 GM/DL (6.4-8.2)
[2020-09-16 05:24] LABS: AMPHETAMINES LEVEL URINE NEGATIVE (NEGATIVE); BARBITURATES URINE NEGATIVE (NEGATIVE); BENZODIAZEPINES URINE NEGATIVE (NEGATIVE); CANNABINOIDS URINE POSITIVE (NEGATIVE); COCAINE METABOLITE URINE NEGATIVE (NEGATIVE); METHADONE URINE NEGATIVE (NEGATIVE); OPIATES URINE NEGATIVE (NEGATIVE); PHENCYCLIDINE URINE NEGATIVE (NEGATIVE)
[2020-09-16 06:28] VITALS: BP 128/72
== END 2020-09-16 06:30 | disposition home or self-care (01) ==
LOC: M ED 02:52
DX: F20.9 Schizophrenia, unspecified (principal); Z79.899 Other long term (current) drug therapy
CPT/HCPCS: 36415; 80048; 80076; 80307; 84443; 85027; 99284; G0480

== ENCOUNTER 2020-09-22 06:17 | Emergency (ER) | payer OTHER ==
[~2020-09-22] VITALS: Ht 175.3 cm; Wt 82.7 kg
[2020-09-22 06:50] LABS: HEMATOCRIT 40.8 % (42.0-52.0); HEMOGLOBIN 13.1 g/dl (13.5-17.5); MEAN CORPUSCULAR HGB CONC 32.1 g/dl (32.0-36.5); MEAN CORPUSCULAR VOLUME 90.3 fl (80.0-96.0); PLATELET COUNT, AUTOMATED 295 10^3/uL (150-450); RED BLOOD COUNT 4.52 10^6/uL (4.30-6.10); WHITE BLOOD COUNT 9.6 10^3/uL (4.0-10.0)
[2020-09-22 07:18] LABS: AMPHETAMINES LEVEL URINE NEGATIVE (NEGATIVE); BARBITURATES URINE NEGATIVE (NEGATIVE); BENZODIAZEPINES URINE NEGATIVE (NEGATIVE); CANNABINOIDS URINE POSITIVE (NEGATIVE); COCAINE METABOLITE URINE POSITIVE (NEGATIVE); METHADONE URINE NEGATIVE (NEGATIVE); OPIATES URINE NEGATIVE (NEGATIVE); PHENCYCLIDINE URINE NEGATIVE (NEGATIVE)
[2020-09-22 07:25] LABS: ACETAMINOPHEN LEVEL < 2.0 UG/ML (10.0-30.0); ALBUMIN 3.3 GM/DL (3.2-5.2); ALT/SGPT 29 U/L (12-78); BILIRUBIN,DIRECT 0.2 MG/DL (0.0-0.2); BILIRUBIN,TOTAL 0.6 MG/DL (0.2-1.0); BLOOD UREA NITROGEN 20 MG/DL (7-18); CARBON DIOXIDE LEVEL 27 MEQ/L (21-32); CHLORIDE LEVEL 107 MEQ/L (98-107); CREATININE FOR GFR 0.93 MG/DL (0.70-1.30); ETHYL ALCOHOL (ETHANOL) < 0.003 % (0.000-0.010); GLOMERULAR FILTRATION RATE > 60.0 (>60); GLUCOSE, FASTING 80 MG/DL (70-100); POTASSIUM SERUM 4.3 MEQ/L (3.5-5.1); SALICYLATE LEVEL < 1.7 MG/DL (5.0-30.0); SODIUM LEVEL 138 MEQ/L (136-145); THYROID STIMULATING HORMONE 0.512 uIU/ML (0.358-3.740); TOTAL PROTEIN 6.8 GM/DL (6.4-8.2)
[2020-09-22 07:34] LABS: LIPASE 177 U/L (73-393)
[2020-09-22] MEDS ORDERED: ISOVUE-370 76% 100ML VIAL As Ordered ONE (09:45)
--- NOTE | 2020-09-22 10:19 | REP ---
INDICATION: abdominal pain COMPARISON: 02/20/2020, 08/21/2020 TECHNIQUE: Portable AP view of the chest FINDINGS: The mediastinum and cardiac silhouette are stable and within normal limits for portable technique. The lung escalante are clear without acute consolidation, effusion, or pneumothorax. Skeletal structures are intact. IMPRESSION: No acute cardiopulmonary process appreciated. <Electronically signed by Dex Moore > 09/22/20 1014
--- NOTE | 2020-09-22 10:23 | REP ---
INDICATION: abdominalpain. COMPARISON: None TECHNIQUE: Axial contrast-enhanced images from the lung bases to the pubic symphysis using 100 cc Isovue 370 intravenous contrast material. Coronal and sagittal reformations obtained. This CT examination was performed using the following dose reduction techniques: Automated exposure control, adjustment of mA and/or kv according to the patient's size, and the use of iterative reconstruction technique. FINDINGS: Liver, spleen, pancreas, gallbladder, bilateral adrenal glands and kidneys are normal. The enteric system including stomach, small, and large bowel appears normal. No evidence for obstruction or acute inflammatory process. Normal terminal ileum and appendix are identified in the right lower quadrant. Pelvis demonstrates normal bladder and age-appropriate prostate/seminal vesicles. No ascites. No free air. No intraperitoneal or retroperitoneal adenopathy. Abdominal aorta and vasculature appear normal. Musculoskeletal structures are intact and without acute osseous abnormality. Lung bases are essentially clear. IMPRESSION: No acute abdominopelvic pathology appreciated. <Electronically signed by Dex Moore > 09/22/20 1010
[2020-09-22] MEDS ORDERED: [UNRECOGNIZED DRUG - CODE] IM (13:05)
[2020-09-22 20:15] VITALS: BP 119/74
--- NOTE | 2020-09-23 18:56 | ECGEPIP ---
[facility] - ED Test Date: 2020-09-22 Pat Name: SHRAVAN PARRA Department: Room: - Gender: Male Air Pollution Inspector: abimbola : 1980 Requested By: Myriam Webber Order Number: [id number] Reading MD: Myriam Webber Measurements Intervals [place] Rate: 67 P: 62 MS: 140 QRS: 74 QRSD: 86 T: 64 QT: 365 QTc: 388 Interpretive Statements SINUS RHYTHM NONSPECIFIC ST T WAVE CHANGES CW 08/17/[address] T WAVE CHANGES Electronically Signed on 09-23-2020 18:55:39 EST by Myriam Webber
== END 2020-09-22 20:18 ==
LOC: M ED 06:17
DX: R45.851 Suicidal ideations (principal); R94.31 Abnormal electrocardiogram [ECG] [EKG]; F20.9 Schizophrenia, unspecified; I10 Essential (primary) hypertension; Z79.899 Other long term (current) drug therapy; Z87.820 Personal history of traumatic brain injury; Z91.048 Other nonmedicinal substance allergy status
CPT/HCPCS: 36415; 71045; 74177; 80048; 80076; 80307; 81001; 83690; 84443; 85027; 87880; 93005; 99284; G0480; Q9967; U0002

== ENCOUNTER 2020-10-16 19:51 | Emergency (ER) | payer OTHER ==
[~2020-10-16] VITALS: Ht 175.3 cm; Wt 73.1 kg
[~2020-10-16 19:51] MED LIST changes: +NICO1DIS12; -NICO21DI31; +[UNRECOGNIZED DRUG - CODE] IM
[2020-10-16 20:47] LABS: HEMOGLOBIN 13.5 g/dl (13.5-17.5); MEAN CORPUSCULAR HEMOGLOBIN 29.2 pg (27.0-33.0); MEAN CORPUSCULAR HGB CONC 32.1 g/dl (32.0-36.5); MEAN CORPUSCULAR VOLUME 90.7 fl (80.0-96.0); PLATELET COUNT, AUTOMATED 299 10^3/uL (150-450); RED BLOOD COUNT 4.63 10^6/uL (4.30-6.10)
[2020-10-16 21:30] LABS: ACETAMINOPHEN LEVEL < 2.0 UG/ML (10.0-30.0); ALBUMIN 3.3 GM/DL (3.2-5.2); ALT/SGPT 29 U/L (12-78); BILIRUBIN,DIRECT 0.1 MG/DL (0.0-0.2); BILIRUBIN,TOTAL 0.3 MG/DL (0.2-1.0); BLOOD UREA NITROGEN 18 MG/DL (7-18); CALCIUM LEVEL 8.9 MG/DL (8.5-10.1); CARBON DIOXIDE LEVEL 32 MEQ/L (21-32); CHLORIDE LEVEL 108 MEQ/L (98-107); CREATININE FOR GFR 1.07 MG/DL (0.70-1.30); ETHYL ALCOHOL (ETHANOL) < 0.003 % (0.000-0.010); GLOMERULAR FILTRATION RATE > 60.0 (>60); GLUCOSE, FASTING 83 MG/DL (70-100); POTASSIUM SERUM 4.3 MEQ/L (3.5-5.1); SALICYLATE LEVEL < 1.7 MG/DL (5.0-30.0); SODIUM LEVEL 140 MEQ/L (136-145); THYROID STIMULATING HORMONE 0.344 uIU/ML (0.358-3.740); TOTAL PROTEIN 6.5 GM/DL (6.4-8.2)
[2020-10-16 22:08] LABS: AMPHETAMINES LEVEL URINE NEGATIVE (NEGATIVE); BARBITURATES URINE NEGATIVE (NEGATIVE); BENZODIAZEPINES URINE NEGATIVE (NEGATIVE); CANNABINOIDS URINE POSITIVE (NEGATIVE); COCAINE METABOLITE URINE POSITIVE (NEGATIVE); METHADONE URINE NEGATIVE (NEGATIVE); OPIATES URINE NEGATIVE (NEGATIVE); PHENCYCLIDINE URINE NEGATIVE (NEGATIVE)
[2020-10-17 01:04] LABS: RSV AMPLIFICATION NEGATIVE (NEGATIVE)
[2020-10-17 03:44] VITALS: BP 126/72
--- NOTE | 2020-10-17 08:11 | ECGEPIP ---
[facility] - ED Test Date: 2020-10-17 Pat Name: SHRAVAN PARRA Department: Room: - Gender: Male Visitor Services Associate: mere : 1980 Requested By: MICHAEL ASENCIO Order Number: [id number] Reading MD: Manjit Adams Measurements Intervals [place] Rate: 71 P: 67 MT: 139 QRS: 73 QRSD: 88 T: 66 QT: 359 QTc: 392 Interpretive Statements SINUS RHYTHM SIMILAR TO 09/22/20 Electronically Signed on 10-17-2020 8:11:08 EST by Manjit Adams
== END 2020-10-17 04:26 ==
LOC: M ED 19:51
DX: R45.851 Suicidal ideations (principal); F20.0 Paranoid schizophrenia; Z79.51 Long term (current) use of inhaled steroids; Z79.899 Other long term (current) drug therapy; Z91.048 Other nonmedicinal substance allergy status
CPT/HCPCS: 80048; 80076; 80307; 81001; 84443; 85027; 87631; 93005; 99284; G0480

== ENCOUNTER 2020-11-14 11:45 | Emergency (ER) | payer OTHER ==
[~2020-11-14] VITALS: Ht 167.6 cm; Wt 70.2 kg
[~2020-11-14 11:45] MED LIST changes: +GABA-282; +GABA-282 PO; -GABA-843; -GABA-843 PO
[2020-11-14 11:46] VITALS: BP 139/75
--- OUTSIDE RECORDS SUMMARY | 2020-11-14 11:51 | CCD | Summary of Care ---
Author Author [facility] Organization [facility] Address Unknown Phone Unavailable Care Team Providers Care Tray Delivery Aide Name Role Phone Pcp, No PCP Unavailable Encounter Details Care Team Description Date Type Department 09/22/2020 [facility] TRANSFER CE NTER Encounter [address] [place] [address] Allergies No Known Allergiesdocumented as of this encounter (statuses as of 10/07/2020) Medications End Date Status Medication Sig Dispensed Refills Start Date Active Paliperidone Palmitate Inject 1 Dose 0 (INVEGA TRINZA) 819 into the MG/2.625ML SUSP muscle every 3 (three) months documented as of this encounter (statuses as of 10/07/2020) Active Problems Problem Noted Date Suicidal ideations 11/29/2018 Schizophrenia 11/03/2018 Suicidal ideation 11/03/2018 Cannabis abuse 11/03/2018 Auditory hallucinations 11/03/2018 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 Cocaine abuse 08/23/2018 Psychosis 08/22/2018 Benign essential HTN 08/22/2018 Asthma without acute exacerbation 08/22/2018 documented as of this encounter (statuses as of 10/07/2020) Social History Date Tobacco Use Types Packs/Day Years Used Current Every Day Smoker Cigarettes 1 14 Smokeless Tobacco: Former User Drinks/Week oz/Week Comments Alcohol Use 5 Cans of beer 5.0 Every Thursday Yes Sex Assigned at Date Recorded Not on file documented as of this encounter Last Filed Vital Signs Not on filedocumented in this encounter Plan of Treatment Health Maintenance Due Date Last Done Comments MMR Vaccines (1 of - 1983 Standard series) Varicella Vaccines (1 of 1983 2 - 2-dose childhood series) Pneumococcal Vaccine: 1988 Pediatrics (0 to 5 Years) and At-Risk Patients (6 to 64 Years) (1 - PPSV23) DTaP,Tdap,and Td Vaccines 1989 (1 - Tdap) HIV Screening 1995 Influenza Vaccine 08/02/2020 01/12/2017 Pneumococcal Vaccine: 65+ 2047 Years (1 of 1 - PPSV23) HIB Vaccines Aged Out No longer eligible based on patient's age to complete this topic Hepatitis A Vaccines Aged Out No longer eligibl e based on patient's age to complete this topic Hepatitis B Vaccines Aged Out No longer eligibl e based on patient's age to complete this topic IPV Vaccines Aged Out No longer eligible based on patient's age to complete this topic documented as of this encounter Results Not on filedocumented in this encounter
--- OUTSIDE RECORDS SUMMARY | 2020-11-14 11:51 | CCD ---
Author Author Gabo Mejia Organization Unknown Address [address] [address] Phone Care Team Providers Care Correction Officer Penitentiary Name Role Phone Jossy Mejia PCP Allergies, Adverse Reactions, Alerts No Data in Section Problem List Concept Problem Description Status Start Date Created Date Resolv ed Date Snomed Code F20.9 Schizophrenia Active 04/22/2016 04/22/2016 F12.20 Cannabis Use Disorder, Moderate Active 10/15/20 20 F17.200 Tobacco Use Disorder, Moderate Active 0 F10.20 Alcohol Use Disorder, Severe Active 10/15/2020 Medications No Data in Section Social History Social History Element Description Concept Effective Date Smoking Status Unknown if ever smoked [id number] Immunizations No Data in Section Vital Signs No Data in Section Procedures Date Concept Id Description Targeted Site Concept Targeted Site Concept Type 10/15/2020 59895 Injectable Psychotro pic Medication Administration (Injection Only) CPT Patient has no history of implantable de vices Encounters Encounter Start Date End Date Encounter Type Description Diagnosis Di agnosis Desc Location Author First Name Author Last Name Npid Taxonomy Cod e Taxonomy Desc Phone Number Location Addr1 Location Addr2 Location [facility] Location [facility] [id number] 10/15/2020 10/15/2020 13724 Injectable Psyc hotropic Medication Administration (Injection Only) F20.9 Schizophrenia, unspecified [facility] Jackie Fenton [phone] [id number] L icensed Practical Nurse [id number] [address] [address] Plan of Treatment No Data in Section Lab Results No Data in Section Instructions No Data in Section Insurance Providers Insurance Id Policy Effective Date Policy Thru Date Company N kishore [id number] 2016 [id number]
--- OUTSIDE RECORDS SUMMARY | 2020-11-14 11:51 | CCD ---
Author Author Gabo Mejia Organization Unknown Address [address] [address] Phone Care Team Providers Care Holistic Pulser Name Role Phone Jossy Mejia PCP Allergies, Adverse Reactions, Alerts No Data in Section Problem List Concept Problem Description Status Start Date Created Date Resolv ed Date Snomed Code F20.9 Schizophrenia Active 04/22/2016 04/22/2016 F12.20 Cannabis Use Disorder, Moderate Active 10/18/20 20 F17.200 Tobacco Use Disorder, Moderate Active 0 F10.20 Alcohol Use Disorder, Severe Active 10/18/2020 Medications No Data in Section Social History Social History Element Description Concept Effective Date Smoking Status Unknown if ever smoked [id number] Immunizations No Data in Section Vital Signs No Data in Section Procedures Date Concept Id Description Targeted Site Concept Targeted Site Concept Type 10/18/2020 23673 Injectable Psychotro pic Medication Administration (Injection Only) CPT Patient has no history of implantable de vices Encounters Encounter Start Date End Date Encounter Type Description Diagnosis Di agnosis Desc Location Author First Name Author Last Name Npid Taxonomy Cod e Taxonomy Desc Phone Number Location Addr1 Location Addr2 Location [facility] [id number] 10/18/2020 10/18/2020 34213 Injectable Psyc hotropic Medication Administration (Injection Only) F20.9 Schizophrenia, unspecified [facility] Jackie Fenton [phone] [id number] L icensed Practical Nurse [id number] [address] [address] Plan of Treatment No Data in Section Lab Results No Data in Section Instructions No Data in Section Insurance Providers Insurance Id Policy Effective Date Policy Thru Date Company N kishore [id number] 2016 [id number]
--- OUTSIDE RECORDS SUMMARY | 2020-11-14 11:51 | CCD ---
Author Author Gabo Mejia Jossy Organization Unknown Address [address] [place] [address] Phone Care Team Providers Care Tool And Die Maker Name Role Phone Jackie Jossy PCP Allergies, Adverse Reactions, Alerts No Data in Section Problem List Concept Problem Description Status Start Date Created Date Resolv ed Date Snomed Code F20.9 Schizophrenia Active 04/22/2016 04/22/2016 F12.20 Cannabis Use Disorder, Moderate Active 10/04/20 20 F17.200 Tobacco Use Disorder, Moderate Active 0 F10.20 Alcohol Use Disorder, Severe Active 10/04/2020 Medications Rx Norm Medication Route Route Concept Start Date Stop Date Dosage Reggie quency Duration Formula Strength Dosage Form Dosage Form Code Dosage Description Medication Id Account Npid Author First Name Author Last Name Taxonomy Code Taxonomy Desc Phone Number [id number] trazodone by mouth [id number] 09/12/2020 10/12/2020 every night 30 50 mg tablet [id number] Kalli Plunkett [id number] Nurse Enrique calderaitioner [phone] Social History Social History Element Description Concept Effective Date Smoking Status Unknown if ever smoked [id number] Immunizations No Data in Section Vital Signs No Data in Section Procedures Date Concept Id Description Targeted Site Concept Targeted Site Concept Type 10/04/2020 01166 Injectable Psychotro pic Medication Administration (Injection Only) CPT Patient has no history of implantable de vices Encounters Encounter Start Date End Date Encounter Type Description Diagnosis Di agnosis Desc Location Author First Name Author Last Name Npid Taxonomy Cod e Taxonomy Desc Phone Number Location Addr1 Location Addr2 Location [facility] Location [facility] Location Zip [id number] 10/04/2020 10/04/2020 53267 Injectable Psyc hotropic Medication Administration (Injection Only) F20.9 Schizophrenia, unspecified [facility] Jackie Fenton [phone] [id number] L icensed Practical Nurse [id number] [address] [place] [address] [phone] Plan of Treatment No Data in Section Lab Results No Data in Section Instructions No Data in Section Insurance Providers Insurance Id Policy Effective Date Policy Thru Date FriendCode [place] novak [id number] 2016 [id number]
--- OUTSIDE RECORDS SUMMARY | 2020-11-14 11:51 | CCD ---
Author Author Gabo Plunkett Organization Unknown Address [address] [place] [address] Phone Care Team Providers Care Toggle Press Operator Name Role Phone Kalli Plunkett PCP Allergies, Adverse Reactions, Alerts No Data [...] Name Taxonomy Code Taxonomy Desc Phone Number [phone] trazodone by mouth [id number] 09/12/2020 10/12/2020 every night 30 50 mg tablet 98530 [phone] Kalli Plunkett [id number] Nurse Pra ctitioner [phone] Social History Social History Element Description Concept Effective Date Smoking Status Unknown if ever smoked [id number] Immunizations No Data in Section Vital Signs Encounter Date Height Ins Weight Lbs Bmi Bp Systolic Bp Diastoli c Oxygen Saturation Respiration Rate Pulse Rate Body Temp Head Circumference Heigh t Lying 10/04/2020 0.00 0.00 0.00 0 0 0.00 0 0 0.00 0.0 0.0 0 Procedures Date Concept Id Description Targeted Site Concept Targeted Site Concept Type 10/04/2020 65883 E/M Level 3 - Established Patient CPT Patient has no history of implantable de vices Encounters Encounter Start Date End Date Encounter Type Description Diagnosis Di agnosis Desc Location Author First Name Author Last Name Npid Taxonomy Cod e Taxonomy Desc Phone Number Location Addr1 Location Addr2 Location City Location [facility] [id number] 10/04/2020 10/04/2020 18898 E/M Level 3 - Established Pa robyn F20.9 Schizophrenia, unspecified Community [facility] Dimitrios Mahan [phone] [id number] Nurse Practitioner [id number] [address] [place] [id number] Plan of Treatment No Data in Section Lab Results No Data in Section Instructions No Data in Section Functional Cognitive Status No Data in Section Insurance Providers Insurance Id Policy Effective Date Policy Thru Date Company N kishore [id number] 2016 [id number]
--- OUTSIDE RECORDS SUMMARY | 2020-11-14 11:51 | CCD ---
Author Author Gabo Mejia Organization Unknown Address [address] [place] [address] Phone Care Team Providers Care Line Ordering Clinician Name Role Phone Jossy Mejia PCP Allergies, Adverse Reactions, Alerts No Data in Section Problem List Concept Problem Description Status Start Date Created Date Resolv ed Date Snomed Code F20.9 Schizophrenia Active 04/22/2016 04/22/2016 Medications Rx Norm Medication Route Route Concept Start Date Stop Date Dosage Reggie quency Duration Formula Strength Dosage Form Dosage Form Code Dosage Description Medication Id Account Npid Author First Name Author Last Name Taxonomy Code Taxonomy Desc Phone Number [phone] amantadine HCl by mouth [id number] 07/30/2017 09/12/2020 every morn ing 100 mg capsule 11531 [id number] [phone] Dane Mariscal [id number] [facility] [phone] trazodone by mouth [id number] 06/10/2019 09/12/2020 at bedtime 50 mg tablet 62895 [phone] Dane Mariscal [id number] Psychiat joaquin/Mental Health [phone] [id number] Aristada intramuscularly 12/20/2019 09/12/2020 1,064 mg/3.9 mL suspension,extended rel syring as directed 09111 [id number] [id number] Dane Mariscal [id number] Psychiatric[facility]Mental [facility] [id number] [id number] Haldol Decanoate intramuscularly 09/12/2020 09/15/2020 a s directed 1 100 mg/mL solution 37657 403539 [id number] Kalli Plunkett [id number] Nurse Practitioner [phone] [id number] trazodone by mouth [id number] 09/12/2020 10/12/2020 every night 30 50 mg tablet 08981 [id number] [phone] Kalli Plunkett [id number] Nurse Pra ctitioner [phone] Social History Social History Element Description Concept Effective Date Smoking Status Unknown if ever smoked [id number] Immunizations No Data in Section Vital Signs No Data in Section Procedures Date Concept Id Description Targeted Site Concept Targeted Site Concept Type 09/12/2020 37455 Injectable Psychotro pic Medication Administration (Injection Only) CPT Patient has no history of implantable de vices Encounters Encounter Start Date End Date Encounter Type Description Diagnosis Di agnosis Desc Location Author First Name Author Last Name Npid Taxonomy Cod e Taxonomy Desc Phone Number Location Addr1 Location Addr2 Location [facility] Location [facility] Location [facility] [id number] 09/12/2020 09/12/2020 14792 Injectable Psyc hotropic Medication Administration (Injection Only) F20.9 Schizophrenia, unspecified [facility] Jackie Fenton [phone] [id number] L icensed Practical Nurse [id number] [address] [place] [address] [phone] Plan of Treatment No Data in Section Lab Results No Data in Section Instructions No Data in Section Insurance Providers Insurance Id Policy Effective Date Policy Thru [employer] N kishore [id number] 2016 [id number]
--- OUTSIDE RECORDS SUMMARY | 2020-11-14 11:51 | CCD ---
Author Author Gabo Plunkett Kalli Organization Unknown Address [address] [place] [address] Phone Care Team Providers Care Senior C Developer Name Role Phone Kalli Plunkett PCP Allergies, Adverse Reactions, Alerts No Data in Section Problem List Concept Problem Description Status Start Date Created Date Resolv ed Date Snomed Code F20.9 Schizophrenia Active 04/22/2016 04/22/2016 F12.20 Cannabis Use Disorder, Moderate Active 09/12/20 20 F17.200 Tobacco Use Disorder, Moderate Active 0 F10.20 Alcohol Use Disorder, Severe Active 09/12/2020 Medications Rx Norm Medication Route Route Concept Start Date Stop Date Dosage Reggie quency Duration Formula Strength Dosage Form Dosage Form Code Dosage Description Medication Id Account Npid Author First Name Author Last Name Taxonomy Code Taxonomy Desc Phone Number [phone] amantadine HCl by mouth [id number] 07/30/2017 09/12/2020 every morn ing 100 mg capsule 61397 [phone] Dane Mariscal [id number] Psychiatric/Mental Health [phone] 102857 trazodone by mouth [id number] 06/10/2019 09/12/2020 at bedtime 50 mg tablet 67689 579497 [id number] Dane Mariscal [id number] Psychiat jo[facility]quin/Mental Health [phone] [id number] Aristada intramuscularly 12/20/2019 09/12/2020 1,064 mg/3.9 mL suspension,extended rel syring as directed 12597 217607 [phone] Dane Mariscal [id number] Psychiatric/Mental Health [phone] [id number] Haldol Decanoate intramuscularly 09/12/2020 09/15/2020 a s directed 1 100 mg/mL solution 89320 [id number] [phone] Kalli Plunkett [id number] Nurse Practitioner [phone] 885634 trazodone by mouth [id number] 09/12/2020 10/12/2020 every night 30 50 mg tablet 46143 [id number] [phone] Kalli Maysdanette [id number] Nurse Pra ctitioner [phone] Social History Social History Element Description Concept Effective Date Smoking Status Unknown if ever smoked [id number] Immunizations No Data in Section Vital Signs Encounter Date Height Ins Weight Lbs Bmi Bp Systolic Bp Diastoli c Oxygen Saturation Respiration Rate Pulse Rate Body Temp Head Circumference Heigh t Lying 09/12/2020 0.00 0.00 0.00 0 0 0.00 0 0 0.00 0.0 0.0 0 Procedures Date Concept Id Description Targeted Site Concept Targeted Site Concept Type 09/12/2020 57822 E/M Level 3 - Established Patient CPT Patient has no history of implantable de vices Encounters Encounter Start Date End Date Encounter Type Description Diagnosis Di agnosis Desc Location Author First Name Author Last Name Npid Taxonomy Cod e Taxonomy Desc Phone Number Location Addr1 Location Addr2 Location City Location [place] Zip [id number] 09/12/2020 09/12/2020 87926 E/M Level 3 - Established [place] robyn F20.9 Schizophrenia, unspecified Community [facility] Edgarisiah Kalli [phone] [id number] Nurse Practitioner [id number] [address] [place] [phone] Plan of Treatment No Data in Section Lab Results No Data in Section Instructions No Data in Section Functional Cognitive Status No Data in Section Insurance Providers Insurance Id Policy Effective Date Policy Thru Date Company N [employer] [id number] 2016 [id number]
--- OUTSIDE RECORDS SUMMARY | 2020-11-14 11:52 | CCD ---
Author Author [facility] Address Unknown Phone Unavailable Support Name Relationship Address Phone Pasha Treviño MD Next Of Kin [address] [place], [place] [id number] Diamante Costa Next Of Kin [address] [place] [address] Georges Guerrero DO Next Of Kin [address] [place] [address] Mary[place] [address] SELF, INARadha Next Of Kin [address] [place] [address] YONI JACK Next Of Kin [address] [place], [place] [id number] [place], [place] Next Of Kin [address] [place] [address] Monique Conklin MD Next Of Kin [address] [place] [phone] YONI CALHOUN Next Of [address] [address] Isabelle Manning Next Of Kin [address] [place], [place] [id number] Pat Gallo DO Next Of Kin [address] [place] [address] DISABLED Next Of Kin Unknown Unavailable Chaparral Self Next Of Kin [address] [place] [phone] SELF, [place] [address] SELF, JUNIOR Next Of Kin [address] [place] [id number] UE Next Of Kin Unknown Unavailable SIMON WALL Next Of Kin [address] [place] [address] Care Team Providers Care 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 Systems Engineer Name Role Phone Diamante Ku CARE PARTNER CARE PARTNER Unavailable Unavailable Amanda Walker Unavailable Unavailable NCFH, JLAFLEUR Unavailable Unavailable Ku, F Diamante CARE PARTNER-BC Unavailable Unavailable Ku, F Diamante CARE PARTNER-BC Unavailable Unavailable Ku, F Diamante CARE PARTNER-BC Unavailable Unavailable Ku, F Diamante CARE PARTNER-BC Unavailable Unavailable Ku, F Diamante CARE PARTNER-BC Unavailable Unavailable Ku, F Diamante CARE PARTNER-BC Unavailable Unavailable Ku, F Diamante CARE PARTNER-BC Unavailable Unavailable Ku, F Diamante CARE PARTNER-BC Unavailable Unavailable Ku, F Diamante CARE PARTNER-BC Unavailable Unavailable Ku, F Diamante CARE PARTNER-BC Unavailable Unavailable Ku, F Diamante CARE PARTNER-BC Unavailable Unavailable Ku, F Diamante CARE PARTNER-BC Unavailable Unavailable Ku, F Diamante CARE PARTNER-BC Unavailable Unavailable Ku, F Diamante CARE PARTNER-BC Unavailable Unavailable Ku, F Diamante CARE PARTNER-BC Unavailable Unavailable Ku, F Diamante CARE PARTNER-BC Unavailable Unavailable Ku, F Diamante CARE PARTNER-BC Unavailable Unavailable Ku, F Diamante CARE PARTNER-BC Unavailable Unavailable Ku, F Diamante CARE PARTNER-BC Unavailable Unavailable Ku, F Diamante CARE PARTNER-BC Unavailable Unavailable Ku, F Diamante CARE PARTNER-BC Unavailable Unavailable Chin, Georges DO Unavailable Unavailable NCFH, WCHIN CHIN DO GEORGES Unavailable Unavailable Rotella, Jossy Unavailable EGORHO, F KALLI FPMHNP Unavailable Unavailable EGORHO, F KALLI FPMHNP Unavailable Unavailable EGORHO, F KALLI FPMHNP Unavailable Unavailable EGORHO, F KALLI FPMHNP Unavailable Unavailable EGORHO, F KALLI FPMHNP Unavailable Unavailable EGORHO, F KALLI FPMHNP Unavailable Unavailable Solomon Treviño MD Unavailable Unavailable Solomon Treviño MD Unavailable Unavailable Solomon Treviño MD Unavailable Unavailable Solomon Treviño MD Unavailable Unavailable Solomon Treviño MD Unavailable Unavailable Solomon Treviño MD Unavailable Unavailable Solomon Treviño MD Unavailable Unavailable Solomon Treviño MD Unavailable Unavailable Solomon Treviño MD Unavailable Unavailable Solomon Treviño MD Unavailable Unavailable Solomon Treviño MD Unavailable Unavailable Solomon Treviño MD Unavailable Unavailable Solomon Treviño MD Unavailable Unavailable Solomon Treviño MD Unavailable Unavailable Solomon Treviño MD Unavailable Unavailable Solomon Treviño MD Unavailable Unavailable Solomon Treviño MD Unavailable Unavailable Solomon Treviño MD Unavailable Unavailable Solomon Treviño MD Unavailable Unavailable Solomon Treviño MD Unavailable Unavailable Solomon Treviño MD Unavailable Unavailable Solomon Treviño MD Unavailable Unavailable Solomon Treviño MD Unavailable Unavailable Solomon Treviño MD Unavailable Unavailable Solomon Treviño MD Unavailable Unavailable Solomon Treviño MD Unavailable Unavailable Solomon Treviño MD Unavailable Unavailable Solomon Treviño MD Unavailable Unavailable Solomon Treviño MD Unavailable Unavailable Solomon Treviño MD Unavailable Unavailable Solomon Treviño MD Unavailable Unavailable Solomon Treviño MD Unavailable Unavailable Solomon Treviño MD Unavailable Unavailable Solomon Treviño MD Unavailable Unavailable Solomon Treviño MD Unavailable Unavailable Solomon Treviño MD Unavailable Unavailable Solomon Treviño MD Unavailable Unavailable Solomon Treviño MD Unavailable Unavailable Solomon Treviño MD Unavailable Unavailable Solomon Treviño MD Unavailable Unavailable Solomon Treviño MD Unavailable Unavailable Solomon Treviño MD Unavailable Unavailable Solomon Treviño MD Unavailable Unavailable Solomon Treviño MD Unavailable Unavailable Solomon Treviño MD Unavailable Unavailable Solomon Treviño MD Unavailable Unavailable Solomon Treviño MD Unavailable Unavailable Solomon Treviño MD Unavailable Unavailable Solomon Treviño MD Unavailable Unavailable Solomon Treviño MD Unavailable Unavailable Solomon Treviño MD Unavailable Unavailable Solomon Treviño MD Unavailable Unavailable Solomon Treviño MD Unavailable Unavailable Solomon Treviño MD Unavailable Unavailable Solomon Treviño MD Unavailable Unavailable Solomon Treviño MD Unavailable Unavailable Solomon Treviño MD Unavailable Unavailable Solomon Treviño MD Unavailable Unavailable Solomon Treviño MD Unavailable Unavailable Solomon Treviño MD Unavailable Unavailable Solomon Treviño MD Unavailable Unavailable Solomon Treviño MD Unavailable Unavailable Solomon Trevñio MD Unavailable Unavailable Solomon Treviño MD Unavailable Unavailable Solomon Treviño MD Unavailable Unavailable Solomon Treviño MD Unavailable Unavailable Solomon Treviño MD Unavailable Unavailable Solomon Treviño MD Unavailable Unavailable Solomon Treviño MD Unavailable Unavailable Solomon Treviño MD Unavailable Unavailable Solomon Treviño MD Unavailable Unavailable Solomon Treviño MD Unavailable Unavailable Solomon Treviño MD Unavailable Unavailable Solomon Treviño MD Unavailable Unavailable Solomon Treviño MD Unavailable Unavailable Solomon Treviño MD Unavailable Unavailable Solomon Treviño MD Unavailable Unavailable Solomon Treviño MD Unavailable Unavailable Solomon Treviño MD Unavailable Unavailable Solomon Treviño MD Unavailable Unavailable Solomon Treviño MD Unavailable Unavailable Solomon Treviño MD Unavailable Unavailable Solomon Treviño MD Unavailable Unavailable Solomon Treviño MD Unavailable Unavailable Solomon Treviño MD Unavailable Unavailable Solomon Treviño MD Unavailable Unavailable Solomon Treviño MD Unavailable Unavailable Solomon Treviño MD Unavailable Unavailable Solomon Treviño MD Unavailable Unavailable Tricia Pimentel Unavailable Jonah Mariscal Unavailable Unavailable Loida, C Dane Unavailable Unavailable Lincoln, C Dane Unavailable Unavailable Lincoln, C Dane Unavailable Unavailable Lincoln, C Dane Unavailable Unavailable Loida, C Dane Unavailable Unavailable Loida, C Dane Unavailable Unavailable Devin BINGHAM MD Unavailable Unavailable Devin BINGHAM MD Unavailable Unavailable Devin BINGHAM MD Unavailable Unavailable Devin BINGHAM MD Unavailable Unavailable Devin BINGHAM MD Unavailable Unavailable Devin BINGHAM MD Unavailable Unavailable Devin BINGHAM MD Unavailable Unavailable Devin BINGHAM MD Unavailable Unavailable Devin BINGHAM MD Unavailable Unavailable Devin BINGHAM MD Unavailable Unavailable Devin BINGHAM MD Unavailable Unavailable Devin BINGHAM MD Unavailable Unavailable Devin BINGHAM MD Unavailable Unavailable Devin BINGHAM MD Unavailable Unavailable Devin BINGHAM MD Unavailable Unavailable Devin BINGHAM MD Unavailable Unavailable Devin BINGHAM MD Unavailable Unavailable Devin BINGHAM MD Unavailable Unavailable Devin BINGHAM MD Unavailable Unavailable Devin BINGHAM MD Unavailable Unavailable Devin BINGHAM MD Unavailable Unavailable Devin BINGHAM MD Unavailable Unavailable Devin BINGHAM MD Unavailable Unavailable Devin BINGHAM MD Unavailable Unavailable Devin BINGHAM MD Unavailable Unavailable Devin BINGHAM MD Unavailable Unavailable Devin BINGHAM MD Unavailable Unavailable Devin BINGHAM MD Unavailable Unavailable Devin BINGHAM MD Unavailable Unavailable Devin BINGHAM MD Unavailable Unavailable Devin BINGHAM MD Unavailable Unavailable Devin BINGHAM MD Unavailable Unavailable Devin BINGHAM MD Unavailable Unavailable Devin BINGHAM MD Unavailable Unavailable Devin BINGHAM MD Unavailable Unavailable Devin BINGHAM MD Unavailable Unavailable Devin BINGHAM MD Unavailable Unavailable Devin BINGHAM MD Unavailable Unavailable Devin BINGHAM MD Unavailable Unavailable Devin BINGHAM MD Unavailable Unavailable Devin BINGHAM MD Unavailable Unavailable Devin BINGHAM MD Unavailable Unavailable Devin BINGHAM MD Unavailable Unavailable Devin BINGHAM MD Unavailable Unavailable HERIBERTO, Devin JOEL MD Unavailable Unavailable HERIBERTO, Devin JOEL MD Unavailable Unavailable HERIBERTO, Devin JOEL MD Unavailable Unavailable HERIBERTO, Devin JOEL MD Unavailable Unavailable HERIBERTO, Devin JOEL MD Unavailable Unavailable HERIBERTO, Devin OJEL MD Unavailable Unavailable HERIBERTO, Devin JOEL MD Unavailable Unavailable HERIBERTO, Devin JOEL MD Unavailable Unavailable HERIBERTO, Devin JOEL MD Unavailable Unavailable HERIBERTO, Devin JOEL MD Unavailable Unavailable HERIBERTO, Devin JOEL MD Unavailable Unavailable HERIBERTO, Devin JOEL MD Unavailable Unavailable HERIBERTO, Devin JOEL MD Unavailable Unavailable HERIBERTO, Devin JOEL MD Unavailable Unavailable HERIBERTO, Devin JOEL MD Unavailable Unavailable HERIBERTO, Devin JOEL MD Unavailable Unavailable HERIBERTO, Devin JOEL MD Unavailable Unavailable HERIBERTO, Devin JOEL MD Unavailable Unavailable HERIBERTO, T MARYCRUZ GUTIERREZ Unavailable Unavailable HERIBERTO, Devin JOEL MD Unavailable Unavailable HERIBERTO, Devin JOEL MD Unavailable Unavailable HERIBERTO, Devin JOEL MD Unavailable Unavailable HERIBERTO, Devin JOEL MD Unavailable Unavailable HERIBERTO, Devin JOEL MD Unavailable Unavailable HERIBERTO, Devin JOEL MD Unavailable Unavailable HERIBERTO, Devin JOEL MD Unavailable Unavailable HERIBERTO, Devin JOEL MD Unavailable Unavailable HERIBERTO, Devin JOEL MD Unavailable Unavailable HERIBERTO, Devin JOEL MD Unavailable Unavailable HERIBERTO, Devin JOEL MD Unavailable Unavailable HERIBERTO, Devin JOEL MD Unavailable Unavailable HERIBERTO, Devin JOEL MD Unavailable Unavailable HERIBERTO, Devin JOEL MD Unavailable Unavailable HERIBERTO, Devin JOEL MD Unavailable Unavailable HERIBERTO, Devin JOEL MD Unavailable Unavailable HERIBERTO, Devin JOEL MD Unavailable Unavailable HERIBERTO, Devin JOEL MD Unavailable Unavailable HERIBERTO, Devin JOEL MD Unavailable Unavailable HERIBERTO, Devin JOEL MD Unavailable Unavailable SYSTEM IN, NOT IN PROVIDER Unavailable Unavailable Peña Batista NP Unavailable Unavailable Re-disclosure Warning The records that you are about to access may contain information from federally-assisted alcohol or drug abuse programs. If such information is present, then the following federally mandated warning applies: This information has been disclosed to you from records protected by federal confidentiality rules (42 CFR part 2). The federal rules prohibit you from making any further disclosure of this information unless further disclosure is expressly permitted by the written consent of the person to whom it pertains or as otherwise permitted by 42 CFR part 2. A general authorization for the release of medical or other information is NOT sufficient for this purpose. The Federal rules restrict any use of the information to criminally investigate or prosecute any alcohol or drug abuse patient.The records that you are about to access may contain highly sensitive health information, the redisclosure of which is protected by Article 27-F of the [facility] Public Health law. If you continue you may have access to information: Regarding HIV / AIDS; Provided by facilities licensed or operated by the [facility] Office of Mental Health; or Provided by the [facility] Office for People With Developmental Disabilities. If such information is present, then the following [facility] mandated warning applies: This information has been disclosed to you from confidential records which are protected by state law. State law prohibits you from making any further disclosure of this information without the specific written consent of the person to whom it pertains, or as otherwise permitted by law. Any unauthorized further disclosure in violation of state law may result in a fine or mcc sentence or both. A general authorization for the release of medical or other information is NOT sufficient authorization for further disc losure. Allergies and Adverse Reactions Type Description Substance Reaction Status Data Source(s ) Drug Class NO KNOWN ALLERGIES NO KNOWN ALLERGIES [facility] Food allergy PERFUMES PERFUMES [facility] Encounters Encounter Providers Location Date Indications Data Source(s ) Injectable Psychotropic Medication Administration (Inj ection Only) [facility] 10:30:00 AM EST - 10/18/2020 10:30:00 AM EST [facility] 12:[facility]:00 AM EST [facility]) Injectable Psychotropic Medication Administration (Inj ection Only) [facility]15[facility] 11:00:00 AM EST - 10/15/2020 11:00:00 AM EST [facility] 12:00:00 AM EST [facility] ([facility]) Injectable Psychotropic Medication Administration (Inj ection Only) Attender: [facility] 10/04/2020 10:30:00 AM EST - 10/04/2020 10:30:00 AM EST [facility] ([facility]) Outpatient Attender: KALLI VALLEJO [facility] 10/04/2020 10:00:00 AM EST - 10/04/2020 10:00:00 AM EST [facility] ([facility]) Attender: Jossy Mejia 10/04/2020 12:00:00 AM EST [facility] ([facility]) Attender: KALLI VALLEJO 10/04/2020 12:00: 00 AM EST [facility]) Outpatient Referrer: PROVIDER SYSTEM IN 09/22/2020 0 2:27:00 PM EST schizophrenia, hallucinations, substance abuse [facility] schizophrenia, hallucinations, substance abuse Injectable Psychotropic Medication Administration (Inj ection Only) Attender: Jossy Mejia [facility] 09/12/2020 09:30:00 AM EST - 09/12/2020 09:30:00 AM EST [facility] ([facility]) Outpatient Attender: KALLI MOLINAURSZULA [facility] 09/12/2020 09:00:00 AM EST - 09/12/2020 09:00:00 AM EST [facility] ([facility]) Attender: KALLI VALLEJO 09/12/2020 12:00: 00 AM EST [facility] ([facility]) Attender: Jossy Mejia 09/12/2020 12:00:00 AM EST [facility] ([facility]) Outpatient Attender: KALLI MOLINAURSZULA [facility] 08/10/2020 02:00:00 AM EDT - 08/10/2020 02:00:00 AM EDT [facility] ([facility]) Attender: KALLI VALLEJO 08/10/2020 12:00: 00 AM EDT [facility] ([facility]) Injectable Psychotropic Medication Administration (Inj ection Only) Attender: Jossy Mejia [facility] 07/13/2020 02:00:00 AM EDT - 07/13/2020 02:00:00 AM EDT [facility] ([facility]) Attender: Jossy Mejia 07/13/2020 12:00:00 AM EDT [facility] ([facility]) Outpatient Attender: Pasha Treviño MD 07/12/2020 02:46:50 PM EDT [facility] Outpatient Attender: Pasha Treviño MD 06/21/2020 10:56:00 AM EDT [facility] Outpatient Attender: Pasha Treviño MD 05/31/2020 07:32:00 AM EDT [facility] Outpatient Attender: Pasha Treviño MD 05/25/2020 03:00:09 PM EDT [facility] Outpatient Attender: Pasha Treviño MD 05/23/2020 09:41:01 AM EDT [facility] Outpatient Attender: Pasha Treviño MD 05/21/2020 10:21:00 AM EDT [facility] 01:05:01 PM EDT [facility] 05/11/2020 01:05:00 PM EDT [facility] Outpatient Attender: DO Guerrero 05/10/2020 09:29:01 AM EDT [facility] Outpatient Attender: AKUA HAYDEN [facility] 05/02/2020 02:17:00 PM EDT [facility] Outpatient Attender: KALLI IGLESIAS [facility] 04/25/2020 10:30:00 AM EDT - 04/25/2020 10:30:00 AM EDT [facility] ([facility]) Attender: KALLI MOLINAURSZULA 04/25/2020 12:00: 00 AM EDT [facility] ([facility]) Injectable Medication Administration w/ Monitoring & E ducation Attender: Tricia Pimentel [facility] 04/20/2020 11:30:00 AM EDT - 04/20/2020 11:30:00 AM EDT [facility] ([facility]) Injectable Medication Administration w/ Monitoring & E ducation Attender: Tricia Pimentel [facility] 04/20/2020 09:00:00 AM EDT - 04/20/2020 09:00:00 AM EDT [facility] ([facility]) Attender: Tricia Pimentel 04/20/2020 12:00:00 AM EDT [facility] ([facility]) Attender: Tricia Pimentel 04/20/2020 12:00:00 AM EDT [facility] ([facility]) Injectable Medication Administration w/ Monitoring & E ducation Attender: Tricia Pimentel [facility] 04/11/2020 11:00:00 AM EDT - 04/11/2020 11:00:00 AM EDT [facility] ([facility] Attender: Tricia Pimentel 04/11/2020 12:00:00 AM EDT [facility] ([facility]) Injectable Medication Administration w/ Monitoring & E ducation Attender: Tricia Pimentel [facility] 04/06/2020 09:30:00 AM EDT - 04/06/2020 09:30:00 AM EDT [facility] ([facility]) Attender: Tricia Pimentel 04/06/2020 12:00:00 AM EDT [facility] ([facility]) Outpatient Attender: Too Batista NP [facility] 04/03/2020 11:00:00 AM EDT - 04/03/2020 11:00:00 AM EDT [facility] ([facility]) Attender: Too Batista NP 04/03/2020 12:00:00 AM EDT [facility] ([facility]) Injectable Medication Administration w/ Monitoring & E ducation Attender: Tricia Pimentel [facility] 04/02/2020 01:00:00 AM EDT - 04/02/2020 01:00:00 AM EDT [facility] ([facility] Attender: Tricia Pimentel 04/02/2020 12:00:00 AM EDT [facility] ([facility]) Outpatient Attender: DO aJke MOLINA 03/19/2020 07:46:00 AM EDT [facility] Outpatient Attender: AKUA HAYDEN [facility] 03/13/2020 02:30:02 PM EDT [facility] Outpatient Attender: AKUA HAYDEN [facility] 03/09/2020 01:00:08 PM EDT [facility] TEMPMHCTelemed 20" psychotherapy Attender: Amandaafsaneh aWlker [facility] 02/24/2020 03:00:00 AM EDT - 02/24/2020 03:00:00 AM EDT [facility] ([facility]) Attender: Amanda [place] 02/24/2020 12:00:00 AM EDT [facility] ([facility]) Outpatient Attender: AKUA HAYDEN [facility] 02/23/2020 01:21:00 PM EDT [facility] Outpatient Attender: AKUA HAYDEN [facility] 02/13/2020 03:57:00 PM EDT [facility]: [facility] 02/13/2020 02:28:01 PM EDT [facility] Injectable Medication Administration w/ Monitoring & E ducation Attender: Tricia Pimentel [facility] 02/13/2020 11:00:00 AM EDT - 02/13/2020 11:00:00 AM EDT [facility] ([facility]) Attender: Tricia Pimentel 02/13/2020 12:00:00 AM EDT [facility] ([facility]) Outpatient Attender: AKUA HAYDEN [facility] 02/09/2020 10:24:32 AM EDT [facility] Outpatient Attender: DO Jake MOLINA 02/08/2020 01:59:01 PM EDT [facility] Injectable Medication Administration w/ Monitoring & E ducation Attender: Tricia Pimentel [facility] 02/08/2020 09:30:00 AM EDT - 02/08/2020 09:30:00 AM EDT [facility] ([facility]) Outpatient Attender: Diamante MOLINA 02/08/2020 09: 13:00 AM EDT [facility] Attender: Tricia Pimenetl 02/08/2020 12:00:00 AM EDT [facility] ([facility]) Outpatient Attender: Diamante MOLINA 02/03/2020 08: 50:00 AM EDT [facility] Outpatient Attender: SERGIO HILL FP 02/03/2020 08:12:00 AM EDT [facility] Outpatient Attender: SERGIO HILL FP 01/24/2020 03:46:01 PM EDT [facility] Injectable Medication Administration w/ Monitoring & E ducation Attender: Tricia Pimentel [facility] 01/13/2020 11:00:00 AM EDT - 01/13/2020 11:00:00 AM EDT [facility] ([facility]) Attender: Tricia Pimentel 01/13/2020 12:00:00 AM EDT [facility]: Tricia Pimentel 01/13/2020 12:00:00 AM EDT [facility] Injectable Medication Administration w/ Monitoring & E ducation Attender: Tricia Pimentel [facility] 01/06/2020 11:45:00 AM EST - 01/06/2020 11:45:00 AM EST [facility] ([facility]) Outpatient Attender: Dane Mariscal [facility] 0 01/06/2020 11:30:00 AM EST - 01/06/2020 11:30:00 AM EST [facility] Attender: Tricia Pimentel 01/06/2020 12:00:00 AM EST [facility] ([facility]) Attender: Dane Mariscal 01/06/2020 12:00:00 AM EST [facility] ([facility]) Injectable Psychotropic Medication Administration (Inj ection Only) Attender: Jossy Mejia [facility] 12/23/2019 10:30:00 AM EST - 12/23/2019 10:30:00 AM EST [facility] ([facility]) Attender: Jossy Mejia 12/23/2019 12:00:00 AM EST [facility] ([facility]) Outpatient Attender: DO Jake MOLINA 12/14/2019 08:36:00 AM EST [facility] Outpatient Attender: DO Jake MOLINA 12/12/2019 10:47:00 AM EST [facility] Outpatient Attender: DO Jake MOLINA 12/12/2019 10:30:01 AM [facility] Outpatient Attender: DO Jake MOLINA 12/12/2019 10:29:00 AM [facility] Outpatient Attender: DO Jake MOLINA 12/12/2019 10:28:00 AM [facility] Injectable Psychotropic Medication Administration (Inj ection Only) Attender: Tricia Pimentel [facility] 12/12/2019 02:00:00 AM EST - 12/12/2019 02:00:00 AM EST [facility] ([facility]) Attender: Tricia Pimentel 12/12/2019 12:00:00 AM EST [facility] ([facility]) Attender: Tricia Pimentel 12/12/2019 12:00:00 AM EST [facility] ([facility]) Outpatient Attender: MARYCRUZ BINGHAM MD 12/10/2019 12:00:29 A M [facility] Outpatient Attender: MARYCRUZ MOLINA 12/09/2019 04:40:01 P [facility] Outpatient Attender: MARYCRUZ BINGHAM MD 12/09/2019 04:40:00 P [facility] Outpatient Attender: MARYCRUZ MOLINA 12/09/2019 03:45:02 P [facility] Injectable Medication Administration w/ Monitoring & E ducation Attender: Tricia Pimentel [facility] 12/09/2019 11:30:00 AM EST - 12/09/2019 11:30:00 AM EST [facility] ([facility]) Outpatient Attender: MARYCRUZ BINGHAM MD 11/17/2019 11:07:00 A M [facility] Injectable Medication Administration w/ Monitoring & E ducation Attender: Tricia Pimentel [facility] 11/04/2019 11:15:00 AM EST - 11/04/2019 11:15:00 AM EST [facility] ([facility]) Attender: Tricia Pimentel 11/04/2019 12:00:00 AM EST [facility] ([facility]) Outpatient Attender: MARYCRUZ BINGHAM MD 10/31/2019 08:59:04 A M [facility] Injectable Medication Administration w/ Monitoring & E ducation Attender: Tricia Pimentel [facility] 10/28/2019 11:15:00 AM EST - 10/28/2019 11:15:00 AM EST [facility] ([facility]) Attender: Tricia Pimentel 10/28/2019 12:00:00 AM EST [facility] ([facility]) Outpatient Attender: MARYCRUZ BINGHAM MD 10/25/2019 11:59:00 A M [facility] Outpatient Attender: MARYCRUZ BINGHAM MD 10/25/2019 11:58:01 A M [facility] Outpatient Attender: MARYCRUZ BINGHAM MD 10/25/2019 11:51:00 A M [facility] Outpatient Attender: MARYCRUZ BINGHAM MD 10/25/2019 11:50:00 A M [facility]/21/2019 02:51:00 PM [facility] Injectable Medication Administration w/ Monitoring & E ducation Attender: Tricia Pimentel [facility] 10/21/2019 02:15:00 AM EST - 10/21/2019 02:15:00 AM EST [facility] ([facility]) Attender: Tricia Pimentel 10/21/2019 12:00:00 AM EST [facility] ([facility]) Outpatient 10/19/2019 10:04:00 PM [facility] Injectable Psychotropic Medication Administration (Inj ection Only) Attender: Jossy Mejia [facility] 10/14/2019 09:30:00 AM EST - 10/14/2019 09:30:00 AM EST [facility] ([facility]) Attender: Jossy Mejia 10/14/2019 12:00:00 AM EST [facility] ([facility]) [facility] 09/30/2019 05:33:01 PM [facility] Out[facility] 09/16/2019 10:32:01 AM [facility] Outpatient [facility] 09/16/2019 10:28:01 AM [facility] Functional Status Medications Medication Brand Name Start Date Product Form Dose Route Admi nistrative Instructions Pharmacy Instructions Status Indications Reaction Description Data Source(s) 100 mg/mL 10/02/2020 12:00:00 AM EST solution 1 INJECT 1ML INTRAMUSCULARLY EVERY 3 WEEKS INJECT 1ML INTRAMUSCULARLY EVERY 3 WEEKS SOLD: 10/04/2020 [facility] 50 mg 09/28/2020 12:00:00 AM EST tablet 30 TAKE ONE TABLET BY MOUTH EVERY DAY NEEDED FOR ANXIETY FOR UP TO 30 DOSES TAKE ONE TABLET BY MOUTH EVERY DAY NEEDED FOR ANXIETY FOR UP TO 30 DOSES SOLD: 10/04/2020 [facility] 10 mg 09/28/2020 12:00:00 AM EST tablet 60 TAKE ONE TABLET BY MOUTH TWICE A DAY FOR 30 DAYS TAKE ONE TABLET BY MOUTH TWICE A DAY FOR 30 DAYS SOLD: 10/04/2020 [facility] Haldol Decanoate Haldol Decanoate 09/12/2020 12:00:00 AM EST 100 mg/mL completed [id number] Haldol Decanoate intramuscularly 09/1209/15/2020 as directed 1 100 mg/mL solution 83601 [id number] Kalli real [id number] Nurse Practitioner [facility] ([facility] Trazodone Hydrochloride 50 MG Oral Tablet trazodone 2019 12:00:00 AM EST 50 mg by mouth completed 198728 trazodone by mouth C382 88 09/12/2020 10/12/2020 every night 30 50 mg tablet 22178 [id number] vero Iglesias [id number] Nurse Practitioner [facility] Trazodone Hydrochloride 50 MG Oral Tablet trazodone 2019 12:00:00 AM EST 50 mg by mouth completed [id number] trazodone by mouth C382 88 09/12/2020 10/12/2020 every night 30 50 mg tablet 33889 [id number] vero Iglesias [id number] Nurse Practitioner [facility] ([facility]) 1,064 mg/3.9 mL 04/04/2020 12:00:00 AM EDT suspension,extend ed rel syring 3 INJECT 1 SYRINGLE INTRAMUSCULARLY DIRECTED ONCE EVERY 8 WEEKS, BRING TO CLINIC FOR NURSE TO ADMINISTER INJECT 1 SYRINGLE INTRAMUSCULARLY DIR ECTED ONCE EVERY 8 WEEKS, BRING TO CLINIC FOR NURSE TO ADMINISTER SOLD: 04/04/2020 [facility] Amantadine Hydrochloride 100 MG Oral Capsule AMANTADINE HCL 01/07/2020 12:00:00 AM EST capsule 60 TAKE TWO CAPSULES BY MOUTH E VERY MORNING TAKE TWO CAPSULES BY MOUTH EVERY MORNING SOLD: 01/12/2020 [facility] 50 mg 01/07/2020 12:00:00 AM EST tablet 30 TAKE ONE TABLET BY MOUTH AT BEDTIME TAKE ONE TABLET BY MOUTH AT BEDTIME SOLD: 01/12/2020 [facility] quetiapine 300 MG Oral Tablet QUETIAPINE FUMARATE 01/07/2020 12: 00:00 AM EST tablet 30 TAKE ONE TABLET BY MOUTH AT BEDT PATRICIA TAKE ONE TABLET BY MOUTH AT BEDTIME SOLD: 01/12/2020 [facility] quetiapine 300 MG Oral Tablet quetiapine 01/06/2020 12:00:00 AM EST 300 mg completed [id number] quetiapine 01/06/2020 01/05/2021 at bedtime 30 300 mg tablet 13250 [id number] Dane Mariscal [id number] Psychiatric/Mental Health [facility] ([facility]) 819 mg/2.625 mL 01/06/2020 12:00:00 AM EST syringe 2 USE 1 SYRINGE DIRECTED NUCLEAR RADIATION ENGINEER YOUR MEDICINE AT THE PHARMACY AND BRING IT TO THE CLINIC FOR YOUR APPOINTMENT USE 1 SYRINGE DIRECTED NUCLEAR RADIATION ENGINEER YOUR M EDICINE AT THE PHARMACY AND BRING IT TO THE CLINIC FOR YOUR APPOINTMENT SOLD: 01/12/2020 [facility] quetiapine 300 MG Oral Tablet quetiapine 01/06/2020 12:00:00 AM EST 300 mg completed [id number] quetiapine 01/06/2020 01/05/2021 at bedtime 30 300 mg tablet 31635 630729 [id number] Dane Mariscal [id number] Psychiatric/Mental Health [facility] ([facility]) quetiapine 300 MG Oral Tablet quetiapine 01/06/2020 12:00:00 AM EST 300 mg completed [id number] quetiapine 01/06/2020 01/05/2021 at bedtime 30 300 mg tablet 94945 518037 [id number] Dane Mariscal [id number] Psychiatric/Mental Health [facility] ([facility]) 819 mg/2.625 mL 01/06/2020 12:00:00 AM EST syringe 2 USE 1 SYRINGE DIRECTED NUCLEAR RADIATION ENGINEER YOUR MEDICINE AT THE PHARMACY AND BRING IT TO THE CLINIC FOR YOUR APPOINTMENT USE 1 SYRINGE DIRECTED NUCLEAR RADIATION ENGINEER YOUR M EDICINE AT THE PHARMACY AND BRING IT TO THE CLINIC FOR YOUR APPOINTMENT SOLD: 04/08/2020 [facility] Aristada Aristada 12/20/2019 12:00:00 AM EST mg/3.9 completed [id number] Aristada intramuscularly 12/20/2019 09/12/2020 1 ,064 mg/3.9 mL suspension,extended rel syring as directed 23229 [id number] Dane Mariscal [id number] Psychiatric/Mental Health [facility] ([facility]) 156 mg/mL 12/15/2019 12:00:00 AM EST syringe 1 INJECT 156MG INTRAMUSCULARLY ONCE INJECT 156MG INTRAMUSCULARLY ONCE SOLD: 12/16/2019 [facility] 1,064 mg/3.9 mL 12/09/2019 12:00:00 AM EST suspension,extend ed rel syring 3 INJECT 3.9ML INTRAMUSCULARLY EVERY 8 WEEKS ; BRING TO CLINIC FOR NURSE TO ADMINISTER INJECT 3.9ML INTRAMUSCULARLY EVERY 8 WEE KS ; BRING TO CLINIC FOR NURSE TO ADMINISTER SOLD: 12/09/2019 [facility] 156 mg/mL 10/24/2019 12:00:00 AM EST syringe 1 INJ ECT 156MG INTRAMUSCULARLY INJECT 156MG INTRAMUSCULARLY SOLD: 10/27/2019 [facility] 1 ML paliperidone palmitate 156 MG/ML Prefilled Syring e [Invega] Invega Sustenna 10/21/2019 12:00:00 AM EST 156 mg/mL completed [id number] Invega Sustenna 10/21/2019 10/22/2019 single dose 1 156 mg/mL syringe [id number] Dane Mariscal [id number] Psychiatric/Mental Health [facility] ([facility]) 1,064 mg/3.9 mL 10/13/2019 12:00:00 AM EST suspension,extend ed rel syring 3 INJECT 3.9ML INTRAMUSCULARLY - BRING TO CLINIC 10/14/19 INJECT 3.9ML INTRAMUSCULARLY - BRING TO CLINIC 10/14/19 SOLD: 10/13/2019 [facility] Trazodone Hydrochloride 50 MG Oral Tablet trazodone 2018 12:00:00 AM EDT 50 mg by mouth completed [id number] trazodone by mouth C382 88 06/10/2019 09/12/2020 at bedtime 50 mg tablet 69131 [id number] Ja viviana Mariscal [id number] Psychiatric/Mental Health [facility] ([facility]) 2.625 ML paliperidone palmitate 312 MG/ML Prefilled Sy ringe [Invega] Invega Trinza 09/09/2018 12:00:00 AM EST 819 mg/2.625 completed Invega Trinza 09/09/2018 06/04/2020 as directed 180 819 mg/2 .625 mL syringe 43594 [id number] Dane Mariscal [id number] Psychiatri c/Mental Health [facility] ([facility]) 2.625 ML paliperidone palmitate 312 MG/ML Prefilled Sy ringe [Invega] Invega Trinza 09/09/2018 12:00:00 AM EST 819 mg/2.625 completed Invega Trinza 09/09/2018 06/04/2020 as directed 180 819 mg/2 .625 mL syringe 01132 [id number] Dane Mariscal [id number] Psychiatri c/Mental Health [facility] ([facility]) 2.625 ML paliperidone palmitate 312 MG/ML Prefilled Sy ringe [Invega] Invega Trinza 09/09/2018 12:00:00 AM EST 819 mg/2.625 completed Invega Trinza 09/09/2018 06/04/2020 as directed 180 819 mg/2 .625 mL syringe 26924 [id number] Dane Mariscal [id number] Psychiatri c/Mental Health [facility] ([facility]) 2.625 ML paliperidone palmitate 312 MG/ML Prefilled Sy ringe [Invega] Invega Trinza 09/09/2018 12:00:00 AM EST 819 mg/2.625 completed Invega Trinza 09/09/2018 06/04/2020 as directed 180 819 mg/2 .625 mL syringe [id number] Dane Mariscal [id number] Psychiatri c/Mental Health [facility] ([facility]) Amantadine Hydrochloride 100 MG Oral Capsule amantadine HCl 07/30/2017 12:00:00 AM EDT 100 mg by mouth completed [id number] amantadine HCl by mouth [id number] 07/30/2017 09/12/2020 every morning 100 mg capsule 5436 0 [id number] Dane Mariscal [id number] Psychiatric/Mental Health [facility] ([facility]) Insurance Providers Payer name Policy type / Coverage type Policy ID Covered constitution party ID Covered constitution party's relationship to shfaer Policy Shafer Plan Information [facility] COMMUNITY PLAN MCDO [id number] SP [id number] [facility] O [id number] S [id number] [facility] I [id number] Self [id number] [facility] TESS [id number] SP [id number] Medicaid S [id number] S [id number] Managed Care - [facility] Community Plan P [id number] S [id number] Medicaid S [id number] S [id number] [facility] [id number] SP [id number] Managed Care - [facility] Community Plan P [id number] S [id number] Self Pay P UNAVAILABLE S UNAVAILA BLE [facility] I [id number] Self [id number] [facility] I [id number] Self [id number] [facility]) O [id number] S [id number] Managed Care - Community Plan [facility] P [id number] S [id number] Medicaid S [id number] S [id number] [facility] TESS [id number] SP [id number] MEDICAID [id number] SP [id number] [facility] COMMUNITY PL[facility] [id number] SP [id number] MEDICAID [id number] SP [id number] [facility] OFFICE OF MENTAL HEALTH UNAVAILABLE S UNAVAILABLE MEDICAID [id number] S [id number] [facility] OFFICE OF MENTAL HEALTH [id number] S [id number] [facility] OFFICE OF MENTAL HEALTH [id number] Problems, Conditions, and Diagnoses Code Display Name Description Problem Type Effective Dates Data Source(s) F10.20 Alcohol dependence, uncomplicated Alcohol Use Disorder , Severe Condition 10/18/2020 12:00:00 AM EST [facility] ([facility]) F17.200 Nicotine dependence, unspecified, uncomp licated Tobacco Use Disorder, Moderate Condition 10/18/2020 12:00:00 AM EST [facility] ([facility]) F12.20 Cannabis dependence, uncomplicated Cannabis Use Disorder, Moderate Condition 10/18/2020 12:00:00 AM EST [facility] ([facility]) F20.9 Schizophrenia, unspecified Schizophrenia Condition 10/18/2020 12:00:00 AM EST [facility] ([facility]) 295.32 Chronic paranoid schizophrenia Chronic paranoid schizo phrenia 12/09/2019 04:39:15 PM [facility] R48.0 Dyslexia and alexia Dyslexia AND/OR speech dysfunction 12/09/2019 04:39:15 PM [facility] schizophrenia, hallucinations, substance abuse schizophrenia, hallucinations, substance abuse Diagnosis 09/22/2020 02:27:00 PM [facility] Surgeries/Procedures Procedure Description Date Indications Data Source(s) THERAPEUTIC PROPHYLACTIC/DX INJECTION SUBQ/IM 10/18/2020 12:00:00 AM EST - 10/18/2020 12:00:00 AM EST [facility] ([facility]) THERAPEUTIC PROPHYLACTIC/DX INJECTION SUBQ/IM 10/18/20 20 12:00:00 AM EST [facility] ([facility]) THERAPEUTIC PROPHYLACTIC/DX INJECTION SUBQ/IM 10/15/2020 12:00:00 AM EST - 10/15/2020 12:00:00 AM EST [facility] ([facility]) THERAPEUTIC PROPHYLACTIC/DX INJECTION SUBQ/IM 10/15/20 20 12:00:00 AM EST [facility] ([facility]) THERAPEUTIC PROPHYLACTIC/DX INJECTION SUBQ/IM 10/04/2020 12:00:00 AM EST - 10/04/2020 12:00:00 AM EST [facility] ([facility]) THERAPEUTIC PROPHYLACTIC/DX INJECTION SUBQ/IM 10/04/20 20 12:00:00 AM EST [facility] ([facility]) OFFICE OUTPATIENT VISIT 15 MINUTES 10/04 12:00:00 AM EST - 10/04/2020 12:00:00 AM EST [facility] ([facility]) OFFICE OUTPATIENT VISIT 15 MINUTES 10/04/2020 12:00:00 AM EST [facility] ([facility]) OFFICE OUTPATIENT VISIT 15 MINUTES 09/12 12:00:00 AM EST - 09/12/2020 12:00:00 AM EST [facility] ([facility]) OFFICE OUTPATIENT VISIT 15 MINUTES 09/12/2020 12:00:00 AM EST [facility] ([facility]) THERAPEUTIC PROPHYLACTIC/DX INJECTION SUBQ/IM 09/12/2020 12:00:00 AM EST - 09/12/2020 12:00:00 AM EST [facility] ([facility]) THERAPEUTIC PROPHYLACTIC/DX INJECTION SUBQ/IM 09/12/20 20 12:00:00 AM EST [facility] ([facility]) OFFICE OUTPATIENT VISIT 15 MINUTES 08/10 12:00:00 AM EDT - 08/10/2020 12:00:00 AM EDT [facility] ([facility]) OFFICE OUTPATIENT VISIT 15 MINUTES 08/10/2020 12:00:00 AM EDT [facility] ([facility]) THERAPEUTIC PROPHYLACTIC/DX INJECTION SUBQ/IM 07/13/2020 12:00:00 AM EDT - 07/13/2020 12:00:00 AM EDT [facility] ([facility]) THERAPEUTIC PROPHYLACTIC/DX INJECTION SUBQ/IM 07/13/20 20 12:00:00 AM EDT [facility] ([facility]) MHC Telemed E/M Lvl 3--Est pt 04/25/2020 12:00:00 AM EDT - 04/25/2020 12:00:00 AM EDT [facility] ([facility]) MHC Telemed E/M Lvl 3--Est pt 04/25/2020 12:00:00 AM E DT [facility] ([facility]) Comprehensive medication services, per 15 minutes 04/20/2020 12:00:00 AM EDT - 04/20/2020 12:00:00 AM EDT [facility] ([facility]) Comprehensive medication services, per 15 minutes 04/20/2020 12:00:00 AM EDT [facility] ([facility]) Comprehensive medication services, per 15 minutes 04/20/2020 12:00:00 AM EDT - 04/20/2020 12:00:00 AM EDT [facility] ([facility]) Comprehensive medication services, per 15 minutes 04/20/2020 12:00:00 AM EDT [facility] ([facility]) Comprehensive medication services, per 15 minutes 04/11/2020 12:00:00 AM EDT - 04/11/2020 12:00:00 AM EDT [facility] ([facility]) Comprehensive medication services, per 15 minutes 04/11/2020 12:00:00 AM EDT [facility] ([facility]) Comprehensive medication services, per 15 minutes 04/06/2020 12:00:00 AM EDT - 04/06/2020 12:00:00 AM EDT [facility] ([facility]) Comprehensive medication services, per 15 minutes 04/06/2020 12:00:00 AM EDT [facility] ([facility]) MHC Telemed E/M Lvl 3--Est pt 04/03/2020 12:00:00 AM EDT - 04/03/2020 12:00:00 AM EDT [facility] ([facility]) MHC Telemed E/M Lvl 3--Est pt 04/03/2020 12:00:00 AM E DT [facility] ([facility]) Comprehensive medication services, per 15 minutes 04/02/2020 12:00:00 AM EDT - 04/02/2020 12:00:00 AM EDT [facility] ([facility]) Comprehensive medication services, per 15 minutes 04/02/2020 12:00:00 AM EDT [facility] ([facility]) TEMPMHCTelemed 20" psychotherapy 12:00:00 AM EDT - 02/24/2020 12:00:00 AM EDT [facility] ([facility]) TEMPMHCTelemed 20" psychotherapy 02/24/2020 12:00:00 A M EDT [facility] ([facility]) Comprehensive medication services, per 15 minutes 02/13/2020 12:00:00 AM EDT - 02/13/2020 12:00:00 AM EDT [facility] ([facility]) Comprehensive medication services, per 15 minutes 02/13/2020 12:00:00 AM EDT [facility] ([facility]) Comprehensive medication services, per 15 minutes 02/08/2020 12:00:00 AM EDT - 02/08/2020 12:00:00 AM EDT [facility] ([facility]) Comprehensive medication services, per 15 minutes 02/08/2020 12:00:00 AM EDT [facility] ([facility]) Comprehensive medication services, per 15 minutes 01/13/2020 12:00:00 AM EDT - 01/13/2020 12:00:00 AM EDT [facility] ([facility]) Comprehensive medication services, per 15 minutes 01/13/2020 12:00:00 AM EDT [facility] ([facility]) Comprehensive medication services, per 15 minutes 01/13/2020 12:00:00 AM EDT - 01/13/2020 12:00:00 AM EDT [facility] ([facility]) Comprehensive medication services, per 15 minutes 01/06/2020 12:00:00 AM EST - 01/06/2020 12:00:00 AM EST [facility] ([facility]) Comprehensive medication services, per 15 minutes 01/06/2020 12:00:00 AM EST [facility] ([facility]) OFFICE OUTPATIENT VISIT 10 MINUTES 01/05 12:00:00 AM EST - 01/06/2020 12:00:00 AM EST [facility] ([facility]) OFFICE OUTPATIENT VISIT 10 MINUTES 01/06/2020 12:00:00 AM EST [facility] ([facility]) THERAPEUTIC PROPHYLACTIC/DX INJECTION SUBQ/IM 12/23/2019 12:00:00 AM EST - 12/23/2019 12:00:00 AM EST [facility] ([facility]) THERAPEUTIC PROPHYLACTIC/DX INJECTION SUBQ/IM 12/23/19 12:00:00 AM EST [facility] ([facility]) THERAPEUTIC PROPHYLACTIC/DX INJECTION SUBQ/IM 12/12/2019 12:00:00 AM EST - 12/12/2019 12:00:00 AM EST [facility] ([facility]) THERAPEUTIC PROPHYLACTIC/DX INJECTION SUBQ/IM 12/12/19 12:00:00 AM EST [facility] ([facility]) Comprehensive medication services, per 15 minutes 12/12/2019 12:00:00 AM EST - 12/12/2019 12:00:00 AM EST [facility] ([facility]) Comprehensive medication services, per 15 minutes 12/09/2019 12:00:00 AM EST [facility] ([facility]) Comprehensive medication services, per 15 minutes 11/04/2019 12:00:00 AM EST - 11/04/2019 12:00:00 AM EST [facility] ([facility]) Comprehensive medication services, per 15 minutes 11/04/2019 12:00:00 AM EST [facility] ([facility]) Comprehensive medication services, per 15 minutes 10/28/2019 12:00:00 AM EST - 10/28/2019 12:00:00 AM EST [facility] ([facility]) Comprehensive medication services, per 15 minutes 10/28/2019 12:00:00 AM EST [facility] ([facility]) Comprehensive medication services, per 15 minutes 10/21/2019 12:00:00 AM EST - 10/21/2019 12:00:00 AM EST [facility] ([facility]) Comprehensive medication services, per 15 minutes 10/21/2019 12:00:00 AM EST [facility] ([facility]) THERAPEUTIC PROPHYLACTIC/DX INJECTION SUBQ/IM 10/14/2019 12:00:00 AM EST - 10/14/2019 12:00:00 AM EST [facility] ([facility]) THERAPEUTIC PROPHYLACTIC/DX INJECTION SUBQ/IM 10/14/20 19 12:00:00 AM EST [facility] ([facility] Results ID Date Data Source [id number] 10/17/2020 12:19:00 AM EST [facility] Name Value Range Interpretation Code Description Data Michelle rce(s) Supporting Document(s) SARS coronavirus 2 RNA [Presence] in Res piratory specimen by OMI with probe detection [facility] This lab was ordered by [facility] a nd reported by [facility]. ID Date Data Source [id number] 02/20/2020 07:40:00 PM EDT [facility] Name Value Range Interpretation Code Description Data Michelle rce(s) Supporting Document(s) SARS CORONAVIRUS 2 RNA [facility] This lab was ordered by [facility] and reported by [facility]. ID Date Data Source [id number] 02/03/2020 08:08:09 AM EDT [facility] Current Problems: Chronic paranoid schiz ophrenia (ICD-295.32) (ICD10- F20.0)Dyslexia AND/OR speech dysfunction (ICD-784.61) (WHO16-Y24.0)Vitamin D deficiency (ICD-268.9) (VRF29-N40.9)Epilepsy and recurrent seizures (ICD- 345)Simple type schizophrenia, chronic state (ICD-295.02) (VNM60-S54.89)Routine general medical examination (over 18) (ICD-V70.0) (KXK68-Q11.00)Current Medications: INVEGA SUSTENNA 156 MG/ML INTRAMUSCULAR SUSPENSION PREFILLED SYRINGE (PALIPERIDONE PALMITATE) every 30 days; Route: INTRAMUSCULARARISTADA 1064 MG/3.9ML INTRAMUSCULAR PREFILLED SYRINGE (ARIPIPRAZOLE LAUROXIL) every 8 weeks; Route: INTRAMUSCULARCurrent Allergies: * POLLEN (Critical)* NKDA (Critical)* PERFUMES (Critical) Dental Chart: Procedures:Type - CDT Code - Description B - (D0140) Limited oral evaluation - problem focused on Tooth # 30 (Performed by Monik Mercado DMD) B - (D0220) Intraoral, periapical, first radiographic image on Tooth # 30 (Performed by Monik Mercado DMD) Treatments:Type - CDT Code - Description T - (D7140) Extraction, erupted tooth or exposed root (elevation and/or forceps removal) on Tooth # 30 (Performed by Monki Mercado DMD) Existing:Type - CDT Code - Description[E] Mi ssing - Larke Only/Root Tip On #30 Surface O Region X Chart Notes:rikki (Feb 03 2020 8:49AM): S: CC:"I broke my tooth on the bottom right. It is not painful, but I thought I should have it looked at."O: RMHx (-)per pt. has asthma and uses inhaler as needed. HPI: a few days. PL:0 BP: 137/67. PA taken #30. #30 broken down to the gum lline. No signs of infection or swelling at this time.A: DDS recommends to have #30 extracted. Advised pt. that we could extract today, but pt is not in any discomfort, so wanted to wait and call us when ready to be removed. DX:#30 broken to the gum lline due to caries into the pulp. P:pt. is to call and schedule extraction when ready to have removed. Assisted By:AM.NV: new p/e or extraction.Monik Mercado DMD by rikki (02/03/2020 8:49 AM): Tooth Notes and Watches: Name Value Range Interpretation Code Description Data Michelle rce(s) Supporting Document(s) ID Date Data Source [id number] 12/09/2019 03:43:52 PM [facility] Measurements & CalculationsHeight: 68 inches 172.72 cm Weight: 162 pounds 73.64 kg Body Mass Index (BMI): 24.72BMI Interpretation: Healthy WeightBody Surface Area (BSA): 1.87Weight Management Education Done (Nutrition/Physical Activity)Vital SignsTemperature: 98F oral Pulse Rate: 86 beats/minuteRespiratory Rate: 22 respirations/minuteBlood Pressure: 118/78 left arm sitting automaticO2 Saturation: 100% room airVital Signs performed by: Hali Pak MA, December 09, 2019 3:53 PMInitial [facility]Infectious Disease- Travel Have you or your sexual partner travelled outside of the country recently? NoSmoking, Tobacco or Smoke Exposure StatusSmoke Status: current every day smokerTobacco Use: YesPassive Smoke Exposure: YesHealthcare HistorySince your last office visit...Have you been admitted to the hospital? NoHave you been to an emergency room (ER) or urgent care clinic? NoHave you seen another healthcare provider? NoHave you seen a dentist? Yes - NOCOIntake performed by: Pedro Garcia MA, December 09, 2019 3:46 PMRate Your HealthIn general, would you say your health is? GoodPain AssessmentAre you currently having any pain which... You would like your provider to address? No Affects your activity level? NoDepression Screening - PHQ-2Over the last two weeks, have you... Had little interest or pleasure in doing things? Not at all Been feeling down, depressed, or hopeless? Not at all PHQ-2 Score: 0Anxiety Screening - ANTHONY-2Over the last two weeks, have you been... Feeling nervous, anxious, or on edge? Not at all Unable to stop or control worrying? Not at all ANTHONY-2 Score: 0PRAPARE Sociodemographic Characteristics Race: Patient Declined Ethnicity: Patient Declined Preferred Language: EnglishFamily and Home Address: [address] [place] [address] What is your housing situation today? I have h ousing Are you worried about losing your housing? NoMoney and Resources Employed? NoIn the past year, have you or any family members you live with been unable to get any of the following when it was really needed? Denies Insecurity: food, utilities, clothing, child welfare worker, phone, legal services, otherIn the past year, have you had trouble affording costs associated with health insurance (such as deductibles, co-payments, etc.)? NoScreening, Brief Intervention, & Referral to Treatment (SBIRT)Pre-Screening Questions How many times have you have 5 or more drinks in a day? 0How many times have you used an illegal drug or used a prescription medication for a non-medical reason? 0Performed by: Pedro Garcia MA, December 09, 2019 3:48 PMPatient History Medical History:Schizophrenia Neurologic Disorder- Seizure Disorderschizoid affective disorderSurgical History:UnremarkableFamily History:DeceasedSocial/Personal History[place] 1 daughter. Alcohol Use - noDrug Use - noHIV/High Risk - noRegular Exercise - yesSmoking History:Patient is a former smoker. Smoking Status: current every day smokerChief ComplaintRe establishing care History of Present Illness (HPI)I, Hali Pak MA, am scribing for and in the presence of, Sb Hernandez is here today with his hoe worker, Anita. Has requested that we contact her regading anything with this patient. 39 yo male here for a new patient appt. He needs a referral for home health care. They are requesting a referral for HHC through [facility] (??) States that when he finds drugs on the streets, he will use it. Mainly Elzbieta & Marijuana. He does only have a $29 tab at the bar. He was recently just admitted into [facility] on 11/09/2019, he went into the ER for chest pain. Patient often feels like he is being watched within his home, and when he gets home there are people that pop up in his house. He lives with his little brother & mother. He does sleep with a light on so he can be more alert. Information Officer feels as if he is unable to live by himself due to condition and he has not worked out with living with friends as he likes to be awake during the night. He likes to write, he often goes to [facility] and waits for zcaseworker to be able to see him if she is in office, if not, he just sits in the office and writes. DSS Worker will call in a week or two, for a 1mo f/u as they need morning appts on FRIDAYS.Transitions of Care InboundProblem ReviewProblem List was reviewed and/or updated during this visit.Medication Reconciliation & ReviewMedication List was reviewed and/or updated during this visit, including review of any lkfc-may-aimrsdx medications, herbal therapies, and/or supplements.Allergy ReviewAllergy List was reviewed and/or updated during this visit.Adult Preventive CareLabs/Meds/Other Counseling-Nutrition and Physical Activity:BMI Interpretation: Healthy Weight (12/09/2019) Counseling: Done (12/09/2019) Physical Activity: Done (12/09/2019)Review of Systems General: GEN: No night sweats, weight loss, fevers, chillsEyes: No vision changesEars: No hearing lossNose: No sinus painThroat: No sore throatResp: No sob, wheezingCV: No chest painGI: No abdominal painGU: No dysuria, urinary frequencyMusculoskeletal: No myalgias, arthralgiasNeuro: No MORENO, unilateral paresthesias, weaknessLympatics: No Lymph node swellingEndocrine: No polydipsia, polyuriaPhysical ExamGeneral Appearance: well nourished, well hydrated, no acute distressEyes, External: conjunctivae and lids normal, EOMIExternal Ears: normal, no lesions or deformitiesHearing: grossly intactOtoscopy: canals clear, tympanic membranes intact, no fluid, light reflex intact bilaterallyExternal Nose: normal, no lesions or deformitiesNasal: mucosa, septum, and turbinates normal, nares patentLips/Teeth/Gums: normal dentition, no gingival inflammation, no labial lesionsPharynx: tongue normal, posterior pharynx without erythema or exudate, no thrush/aphthous ulcerRespiratory, Auscultation: clear to auscultation bilaterally; no rales, rhonchi, or wheezesRespiratory, Effort: no intercostal retractions or use of accessory musclesCardiovascular, Auscultation: S1, S2 audible; no murmur, rub, or gallop; RRRPeripheral Circulation: no clubbing, cyanosis, edema, or varicositiesAbdomen: soft, non-tender, no masses, bowel sounds normalGait & Station: normalSkin, Inspection: no rashes, lesions, or ulcerationsOrientation: oriented to time, place, and personMood & Affect: depression, anxiety, or agitation. active schizophreniaJudgment & Insight: intactCare Management Plan Transitions of CareInboundRate Your HealthIn general, would you say your health is? GoodAssessment & Plan Problems:Added: Dyslexia AND/OR speech dysfunction (ICD- 784.61) (QNK34-R02.0)Chronic paranoid schizophrenia (ICD-295.32) (ICD10- F20.0)Assessment not SavedChronic paranoid schizophrenia (URI61-M98.0): Pt to be referred for a controlled adult living situation.Labwork on next visit.Total visit time and discussion was approx. 40 min.Medications:INVEGA SUSTENNA 156 MG/ML INTRAMUSCULAR SUSPENSION PREFILLED SYRINGEARISTADA 1064 MG/3.9ML INTRAMUSCULAR PREFILLED SYRINGEMedication Changes:Added: ARISTADA 1064 MG/3.9ML INTRAMUSCULAR PREFILLED SYRINGE-every 8 weeksINVEGA SUSTENNA 156 MG/ML INTRAMUSCULAR SUSPENSION PREFILLED SYRINGE-every 30 daysRemoved:VITAMIN D3 5000 UNIT ORAL TABLET-one po daily, EQ NICOTINE POLACRILEX 2 MG MOUTH/THROAT GUM-OTC, TRAZODONE HCL 50 MG ORAL TABLET-One po QHS per PSYCH, HALOPERIDOL 10 MG ORAL TABLET-One po Q AM and QPM PER PSYCH., DEPAKOTE ER 500 MG ORAL TABLET EXTENDED RELEASE 24 HOUR-One po QHS per Psych., COGENTIN 1 MG/ML INJECTION SOLUTION-One mg po QAM per Psych., BENZTROPINE MESYLATE 1 MG/ML INJECTION SOLUTION-2 mg po QHS per PsychAllergies:* POLLEN (Critical)* NKDA (Critical)* PERFUMES (Critical)Orders:Other Referral [705518] Adult - Ofc Vst, NEW, Level IV [CPT- 65953] Follow-Up symptom management Name Value Range Interpretation Code Description Data Michelle rce(s) Supporting Document(s) Procedure Social History Code Duration Value Status Description Data Source(s ) Smoking 10/18/2020 12:00:00 AM EST Unknown if ever smoked comp leted Unknown if ever smoked [facility] ([facility]) Smoking 10/15/2020 12:00:00 AM EST Unknown if ever smoked comp leted Unknown if ever smoked [facility] ([facility]) Smoking 10/04/2020 12:00:00 AM EST Unknown if ever smoked comp leted Unknown if ever smoked [facility] ([facility]) Smoking 09/12/2020 12:00:00 AM EST Unknown if ever smoked comp leted Unknown if ever smoked [facility] ([facility] Smoking 08/10/2020 12:00:00 AM EDT Unknown if ever smoked comp leted Unknown if ever smoked [facility] ([facility]) Smoking 07/13/2020 12:00:00 AM EDT Unknown if ever smoked comp leted Unknown if ever smoked [facility] ([facility]) Smoking 04/25/2020 12:00:00 AM EDT Unknown if ever smoked comp leted Unknown if ever smoked [facility] ([facility]) Smoking 04/20/2020 12:00:00 AM EDT Unknown if ever smoked comp leted Unknown if ever smoked [facility] ([facility]) Smoking 04/11/2020 12:00:00 AM EDT Unknown if ever smoked comp leted Unknown if ever smoked [facility] ([facility]) Smoking 04/06/2020 12:00:00 AM EDT Unknown if ever smoked comp leted Unknown if ever smoked [facility] ([facility]) Smoking 04/03/2020 12:00:00 AM EDT Unknown if ever smoked comp leted Unknown if ever smoked [facility] ([facility]) Smoking 04/02/2020 12:00:00 AM EDT Unknown if ever smoked comp leted Unknown if ever smoked [facility] ([facility]) Smoking 02/24/2020 12:00:00 AM EDT Unknown if ever smoked comp leted Unknown if ever smoked [facility] ([facility]) Smoking 02/13/2020 12:00:00 AM EDT Unknown if ever smoked comp leted Unknown if ever smoked [facility] ([facility]) Smoking 02/08/2020 12:00:00 AM EDT Unknown if ever smoked comp leted Unknown if ever smoked [facility] ([facility]) Smoking 01/13/2020 12:00:00 AM EDT Unknown if ever smoked comp leted Unknown if ever smoked [facility] ([facility]) Smoking 01/06/2020 12:00:00 AM EST Unknown if ever smoked comp leted Unknown if ever smoked [facility] ([facility]) Smoking 12/23/2019 12:00:00 AM EST Unknown if ever smoked comp leted Unknown if ever smoked [facility] ([facility]) Smoking 12/12/2019 12:00:00 AM EST Unknown if ever smoked comp leted Unknown if ever smoked [facility] ([facility]) Smoking 11/04/2019 12:00:00 AM EST Unknown if ever smoked comp leted Unknown if ever smoked [facility] ([facility]) Smoking 10/28/2019 12:00:00 AM EST Unknown if ever smoked comp leted Unknown if ever smoked [facility] ([facility]) Smoking 10/21/2019 12:00:00 AM EST Unknown if ever smoked comp leted Unknown if ever smoked [facility] ([facility]) Smoking 10/14/2019 12:00:00 AM EST Unknown if ever smoked comp leted Unknown if ever smoked [facility] ([facility]) Vital Signs ID Date Data Source UNK Name Value Range Interpretation Code Description Data Source(s) Diastolic blood pressure 0 mm[Hg] Normal (applies to non-numeric results) 0 mm[Hg] [facility] ([facility]) Systolic blood pressure 0 mm[Hg] Normal (applies t o non-numeric results) 0 mm[Hg] [facility] ([facility]) Body mass index (BMI) [Ratio] 0.00 kg/m2 No rmal (applies to non-numeric results) 0.00 kg/m2 [facility] ([facility]) Body weight Measured 0.00 lbs Normal (applies to n on-numeric results) 0.00 lbs [facility] ([facility]) Body height 0.00 in Normal (applies to non-numeric resu lts) 0.00 in [facility] ([facility]) Diastolic blood pressure 0 mm[Hg] Normal (applies to non-numeric results) 0 mm[Hg] [facility] ([facility]) Systolic blood pressure 0 mm[Hg] Normal (applies t o non-numeric results) 0 mm[Hg] [facility] ([facility]) Body mass index (BMI) [Ratio] 0.00 kg/m2 No rmal (applies to non-numeric results) 0.00 kg/m2 [facility] ([facility]) Body weight Measured 0.00 lbs Normal (applies to n on-numeric results) 0.00 lbs [facility] ([facility]) Body height 0.00 in Normal (applies to non-numeric resu lts) 0.00 in [facility] ([facility]) Diastolic blood pressure 0 mm[Hg] Normal (applies to non-numeric results) 0 mm[Hg] [facility] ([facility]) Systolic blood pressure 0 mm[Hg] Normal (applies t o non-numeric results) 0 mm[Hg] [facility] ([facility]) Body mass index (BMI) [Ratio] 0.00 kg/m2 No rmal (applies to non-numeric results) 0.00 kg/m2 [facility] ([facility]) Body weight Measured 0.00 lbs Normal (applies to n on-numeric results) 0.00 lbs [facility] ([facility]) Body height 0.00 in Normal (applies to non-numeric resu lts) 0.00 in [facility] ([facility]) Diastolic blood pressure 0 mm[Hg] Normal (applies to non-numeric results) 0 mm[Hg] [facility] Systolic blood pressure 0 mm[Hg] Normal (applies t o non-numeric results) 0 mm[Hg] [facility] ([facility]) Body mass index (BMI) [Ratio] 0.00 kg/m2 No rmal (applies to non-numeric results) 0.00 kg/m2 [facility] ([facility]) Body weight Measured 0.00 lbs Normal (applies to n on-numeric results) 0.00 lbs [facility] ([facility]) Body height 0.00 in Normal (applies to non-numeric resu lts) 0.00 in [facility] ([facility]) ID Date Data Source [id number] 09/22/2020 02:27:59 PM [facility] Name Value Range Interpretation Code Description Data Source(s) TRANSFER FROM [facility]
[2020-11-14] MEDS ORDERED: TESS100C (12:02)
[2020-11-14] MEDS ORDERED: TRAZ-252 (12:02)
--- OUTSIDE RECORDS SUMMARY | 2020-11-14 12:25 | CCD ---
Author Author [facility] Address Unknown Phone Unavailable Care Team Providers Care Marketing Research Analyst Name Role Phone Diamante Ku INVENTORY REPRESENTATIVE INVENTORY REPRESENTATIVE Unavailable Unavailable Amanda Walker Unavailable Unavailable [facility], JLAFLEUR Unavailable Unavailable Ku, F Diamante INVENTORY REPRESENTATIVE-BC Unavailable Unavailable Ku, F Diamante INVENTORY REPRESENTATIVE-BC Unavailable Unavailable Ku, F Diamante INVENTORY REPRESENTATIVE-BC Unavailable Unavailable Ku, F Diamante INVENTORY REPRESENTATIVE-BC Unavailable Unavailable Ku, F Diamante INVENTORY REPRESENTATIVE-BC Unavailable Unavailable Ku, F Diamante INVENTORY REPRESENTATIVE-BC Unavailable Unavailable Ku, F Diamante INVENTORY REPRESENTATIVE-BC Unavailable Unavailable Ku, F Diamante INVENTORY REPRESENTATIVE-BC Unavailable Unavailable Ku, F Diamante INVENTORY REPRESENTATIVE-BC Unavailable Unavailable Ku, F Diamante INVENTORY REPRESENTATIVE-BC Unavailable Unavailable Ku, F Diamante INVENTORY REPRESENTATIVE-BC Unavailable Unavailable Ku, F Diamante INVENTORY REPRESENTATIVE-BC Unavailable Unavailable Ku, F Diamante INVENTORY REPRESENTATIVE-BC Unavailable Unavailable Ku, F Diamante INVENTORY REPRESENTATIVE-BC Unavailable Unavailable Ku, F Diamante INVENTORY REPRESENTATIVE-BC Unavailable Unavailable Ku, F Diamante INVENTORY REPRESENTATIVE-BC Unavailable Unavailable Ku, F Diamante INVENTORY REPRESENTATIVE-BC Unavailable Unavailable Ku, F Diamante INVENTORY REPRESENTATIVE-BC Unavailable Unavailable Ku, F Diamante INVENTORY REPRESENTATIVE-BC Unavailable Unavailable Ku, F Diamante INVENTORY REPRESENTATIVE-BC Unavailable Unavailable Ku, F Diamante INVENTORY REPRESENTATIVE-BC Unavailable Unavailable Chin, Georges DO Unavailable Unavailable [...] Unavailable Solomon Treviño MD Unavailable Unavailable Solomon Terviño MD Unavailable Unavailable Solomon Treviño MD Unavailable [...] Unavailable Unavailable Loida, C Dane Unavailable Unavailable Kentwood, C Dane Unavailable Unavailable [place], C Dane Unavailable Unavailable [place], C Dane Unavailable Unavailable Loida, C Dane Unavailable Unavailable Loida, C Dane Unavailable Unavailable Devin BINGHAM MD Unavailable Unavailable Devin BINGHAM MD Unavailable Unavailable Devin BINGHAM MD Unavailable Unavailable eDvin BINGHAM MD Unavailable Unavailable Devin BINGHAM MD [...] Unavailable Devin BINGHAM MD Unavailable Unavailable Devin IBNGHAM MD Unavailable Unavailable Devin BINGHAM MD Unavailable [...] HERIBERTO, Devin JOEL MD Unavailable Unavailable HERIBERTO, Deivn JOEL MD Unavailable Unavailable HERIBERTO, Devin JOEL [...] Devin JOEL MD Unavailable Unavailable HERIBERTO, Devin JOLE MD Unavailable Unavailable HERIBERTO, Devin JOEL MD [...] is protected by Article 27-F of the [facility] Public Health law. If you continue you may have access to information: Regarding HIV / AIDS; Provided by facilities licensed or operated by the [facility] Office of Mental Health; or Provided by the [facility] Office for People With Developmental Disabilities. If such information is present, then the following [facility] mandated warning applies: This information has been [...] law may result in a fine or residential sentence or both. A general authorization for the release of medical or other information is NOT sufficient authorization for further disc losure. Allergies and Adverse Reactions Type Description Substance Reaction Status Data Source(s ) Drug Class NO KNOWN ALLERGIES NO KNOWN ALLERGIES [facility] Food allergy PERFUMES PERFUMES [facility] Encounters Encounter Providers Location Date Indications Data Source(s ) Injectable Psychotropic Medication Administration (Inj ection Only) [facility] 10:30:00 AM EST - 10/18/2020 10:30:00 AM EST [facility] ([facility] 12:00:00 AM EST [facility] ([facility]) Injectable Psychotropic Medication Administration (Inj ection Only) [facility] 10/15/2020 11:00:00 AM EST - 10/15/2020 11:00:00 AM EST [facility] ([facility]) [facility] 10/15/2020 12:00:00 AM EST [facility] ([facility]) Injectable Psychotropic Medication Administration (Inj ection Only) Attender: [facility] 10/04/2020 10:30:00 AM EST - 10/04/2020 10:30:00 AM EST [facility] ([facility]) Outpatient Attender: KALLI VALLEJO [facility] 10/04/2020 10:00:00 AM EST - 10/04/2020 10:00:00 AM EST [facility] ([facility]) Attender: Jossy Mejia 10/04/2020 12:00:00 AM EST [facility] ([facility]) Attender: KALLI VALLEJO 10/04/2020 12:00: 00 AM EST [facility] ([facility]) Outpatient Referrer: [facility] [place] 09/22/2020 0 2:27:00 PM EST schizophrenia, hallucinations, substance abuse [facility] schizophrenia, hallucinations, substance abuse Injectable Psychotropic Medication Administration (Inj ection Only) Attender: Jossy Mejia [facility] 09/12/2020 09:30:00 AM EST - 09/12/2020 09:30:00 AM EST [facility] ([facility]) Outpatient Attender: KALLI MOLINAURSZULA [facility] 09/12/2020 09:00:00 AM EST - 09/12/2020 09:00:00 AM EST [facility] ([facility]) Attender: KALLI VALLEJO 09/12/2020 12:00: 00 AM EST [facility] ([facility]) Attender: Jossy Mejia 09/12/2020 12:00:00 AM EST [facility] ([facility]) Outpatient Attender: KALLI MOLINAURSZULA [facility] 08/10/2020 02:00:00 AM EDT - 08/10/2020 02:00:00 AM EDT [facility] ([facility]) Attender: KALLI VALLEJO 08/10/2020 12:00: 00 AM EDT [facility] ([facility]) Injectable Psychotropic Medication Administration (Inj ection Only) Attender: Jossy Mejia [facility] 07/13/2020 02:00:00 AM EDT - 07/13/2020 02:00:00 AM EDT [facility] ([facility]) Attender: Jossy Mejia 07/13/2020 12:00:00 AM EDT [facility] ([facility]) Outpatient Attender: Pasha Treviño MD 07/12/2020 02:46:50 PM EDT [facility] Outpatient Attender: Pasha Treviño MD 06/21/2020 10:56:00 AM EDT [facility] Outpatient Attender: Pasha Treviño MD 05/31/2020 07:32:00 AM EDT [facility] Outpatient Attender: Pasha Treviño MD 05/25/2020 03:00:09 PM EDT [facility] Outpatient Attender: Pasha rTeviño MD 05/23/2020 09:41:01 AM EDT [facility] Outpatient Attender: aPsha Treviño MD 05/21/2020 10:21:00 AM EDT [facility]2020 01:05:01 PM EDT [facility] 05/11/2020 01:05:00 PM EDT [facility] Outpatient Attender: DO Guerrero 05/10/2020 09:29:01 AM EDT [facility] Outpatient Attender: AKUA HAYDEN [facility] 05/02/2020 02:17:00 PM EDT [facility] Outpatient Attender: KALLI IGLESIAS [facility] 04/25/2020 10:30:00 AM EDT - 04/25/2020 10:30:00 AM EDT [facility] ([facility]) Attender: KALLI MOLINAURSZULA 04/25/2020 12:00: 00 AM EDT [facility] ([facility]) Injectable Medication Administration w/ Monitoring & E ducation Attender: Tricia Pimentel [facility] 04/20/2020 11:30:00 AM EDT - 04/20/2020 11:30:00 AM EDT [facility] ([facility]) Injectable Medication Administration w/ Monitoring & E ducation Attender: Tricia Pimentel [facility] 04/20/2020 09:00:00 AM EDT - 04/20/2020 09:00:00 AM EDT [facility] ([facility]) Attender: Tricia Pimentel 04/20/2020 12:00:00 AM EDT [facility] ([facility]) Attender: Tricia Pimentel 04/20/2020 12:00:00 AM EDT [facility] ([facility]) Injectable Medication Administration w/ Monitoring & E ducation Attender: Tricia Pimentel [facility] 04/11/2020 11:00:00 AM EDT - 04/11/2020 11:00:00 AM EDT [facility] ([facility] Attender: Tricia Pimentel 04/11/2020 12:00:00 AM EDT [facility] ([facility]) Injectable Medication Administration w/ Monitoring & E ducation Attender: Tricia Pimentel [facility] 04/06/2020 09:30:00 AM EDT - 04/06/2020 09:30:00 AM EDT [facility] ([facility]) Attender: Tricia Pimentel 04/06/2020 12:00:00 AM EDT [facility] ([facility]) Outpatient Attender: Too Batista NP [facility] 04/03/2020 11:00:00 AM EDT - 04/03/2020 11:00:00 AM EDT [facility] ([facility]) Attender: Too Batista NP 04/03/2020 12:00:00 AM EDT [facility] ([facility]) Injectable Medication Administration w/ Monitoring & E ducation Attender: Tricia Pimentel [facility] 04/02/2020 01:00:00 AM EDT - 04/02/2020 01:00:00 AM EDT [facility] ([facility]) Attender: Tricia Pimentel 04/02/2020 12:00:00 AM EDT [facility] ([facility]) Outpatient Attender: DO Jake MOLINA 03/19/2020 07:46:00 AM EDT [facility] Outpatient Attender: AKUA HAYDEN [facility] 03/13/2020 02:30:02 PM EDT [facility] Outpatient Attender: AKUA H[facility]DEN [facility] 03/09/2020 01:00:08 PM EDT [facility] TEMPMHCTelemed 20" psychotherapy Attender: Amandaafsaneh Walker [facility] 02/24/2020 03:00:00 AM EDT - 02/24/2020 03:00:00 AM EDT [facility] ([facility]) Attender: Amanda Holloway 02/24/2020 12:00:00 AM EDT [facility] ([facility]) Outpatient Attender: AKUA HAYDEN [facility] 02/23/2020 01:21:00 PM EDT [facility] Outpatient Attender: AKUA HAYDEN [facility] 02/13/2020 03:57:00 PM EDT [facility] Outpatient [facility]: [facility] 02/13/2020 02:28:01 PM EDT [facility] Injectable Medication Administration w/ Monitoring & E ducation Attender: Tricia Pimentel [facility] 02/13/2020 11:00:00 AM EDT - 02/13/2020 11:00:00 AM EDT [facility] ([facility]) Attender: Tricia Pimentel 02/13/2020 12:00:00 AM EDT [facility] ([facility]) Outpatient Attender: AKUA HAYDEN [facility] 02/09/2020 10:24:32 AM EDT [facility] Outpatient Attender: DO Jake MOLINA 02/08/2020 01:59:01 PM EDT [facility] Injectable Medication Administration w/ Monitoring & E ducation Attender: Tricia Pimentel [facility] 02/08/2020 09:30:00 AM EDT - 02/08/2020 09:30:00 AM EDT [facility] ([facility]) Outpatient Attender: Diamante MOLINA 02/08/2020 09: 13:00 AM EDT [facility] Attender: Tricia Pimentel 02/08/2020 12:00:00 AM EDT [facility] ([facility]) Outpatient Attender: Diamante MOLINA 02/03/2020 08: 50:00 AM EDT [facility] Outpatient Attender: SERGIO HILL FP 02/03/2020 08:12:00 AM EDT [facility] Outpatient Attender: SERGIO HILL FP 01/24/2020 03:46:01 PM EDT [facility] Injectable Medication Administration w/ Monitoring & E ducation Attender: Tricia Pimentel [facility] 01/13/2020 11:00:00 AM EDT - 01/13/2020 11:00:00 AM EDT [facility] ([facility]) Attender: Tricia Pimentel 01/13/2020 12:00:00 AM EDT [facility]: Tricia Pimentel 01/13/2020 12:00:00 AM EDT [facility] Injectable Medication Administration w/ Monitoring & E ducation Attender: Tricia Pimentel [facility] 01/06/2020 11:45:00 AM EST - 01/06/2020 11:45:00 AM EST [facility] ([facility]) Outpatient Attender: Daen Mariscal [facility] 0 01/06/2020 11:30:00 AM EST - 01/06/2020 11:30:00 AM EST [facility] ([facility] Attender: Tricia Pimentel 01/06/2020 12:00:00 AM EST [facility] ([facility]) Attender: Dane Mariscal 01/06/2020 12:00:00 AM EST [facility] ([facility]) Injectable Psychotropic Medication Administration (Inj ection Only) Attender: Jossy Mejia [facility] 12/23/2019 10:30:00 AM EST - 12/23/2019 10:30:00 AM EST [facility] ([facility]) Attender: Jossy Mejia 12/23/2019 12:00:00 AM EST [facility] ([facility]) Outpatient Attender: DO Jake MOLINA 12/14/2019 08:36:00 AM EST [facility] Outpatient Attender: DO Jake MOLINA 12/12/2019 10:47:00 AM EST [facility] Outpatient Attender: DO Jake MOLINA 12/12/2019 10:30:01 AM [facility] Outpatient Attender: DO Jake MOLINA 12/12/2019 10:29:00 AM [facility] Outpatient Attender: DO Jake MOLINA 12/12/2019 10:28:00 AM [facility] Injectable Psychotropic Medication Administration (Inj ection Only) Attender: Tricia Pimentel [facility] 12/12/2019 02:00:00 AM EST - 12/12/2019 02:00:00 AM EST [facility] ([facility] Attender: Tricia Pimentel 12/12/2019 12:00:00 AM EST [facility] ([facility]) Attender: Tricia Pimentel 12/12/2019 12:00:00 AM EST [facility] ([facility]) Outpatient Attender: MARYCRUZ BINGHAM MD 12/10/2019 12:00:29 A M [facility] Outpatient Attender: MARYCRUZ MOLINA 12/09/2019 04:40:01 P M [facility] Outpatient Attender: MARYCRUZ BINGHAM MD 12/09/2019 04:40:00 P [facility] Outpatient Attender: MARYCRUZ MOLINA 12/09/2019 03:45:02 P [facility] Injectable Medication Administration w/ Monitoring & E ducation Attender: Tricia Pimentel [facility] 12/09/2019 11:30:00 AM EST - 12/09/2019 11:30:00 AM EST [facility] ([facility]) Outpatient Attender: MARYCRUZ BINGHAM MD 11/17/2019 11:07:00 A M [facility] Injectable Medication Administration w/ Monitoring & E ducation Attender: Tricia Pimentel [facility] 11/04/2019 11:15:00 AM EST - 11/04/2019 11:15:00 AM EST [facility] ([facility] Attender: Tricia Pimentel 11/04/2019 12:00:00 AM EST [facility] ([facility]) Outpatient Attender: MARYCRUZ BINGHAM MD 10/31/2019 08:59:04 A M [facility] Injectable Medication Administration w/ Monitoring & E ducation Attender: Tricia Pimentel [facility] 10/28/2019 11:15:00 AM EST - 10/28/2019 11:15:00 AM EST [facility] ([facility] Attender: Tricia Pimentel 10/28/2019 12:00:00 AM EST [facility] ([facility]) Outpatient Attender: MARYCRUZ BINGHAM MD 10/25/2019 11:59:00 A M [facility] Outpatient Attender: MARYCRUZ BINGHAM MD 10/25/2019 11:58:01 A M [facility] Outpatient Attender: MARYCRUZ BINGHAM MD 10/25/2019 11:51:00 A M [facility] Outpatient Attender: MARYCRUZ BINGHAM MD 10/25/2019 11:50:00 A M [facility] 10/21/2019 02:51:00 PM [facility] Injectable Medication Administration w/ Monitoring & E ducation Attender: Tricia Pimentel [facility] 10/21/2019 02:15:00 AM EST - 10/21/2019 02:15:00 AM EST [facility] ([facility]) Attender: Tricia Pimentel 10/21/2019 12:00:00 AM EST [facility] ([facility]) Outpatient 10/19/2019 10:04:00 PM [facility] Injectable Psychotropic Medication Administration (Inj ection Only) Attender: Jossy Mejia [facility] 10/14/2019 09:30:00 AM EST - 10/14/2019 09:30:00 AM EST [facility] ([facility] Attender: Jossy Mejia 10/14/2019 12:00:00 AM EST [facility] ([facility]) [facility]patient [facility] 09/30/2019 05:33:01 PM [facility] Outpatient [facility] 09/16/2019 10:32:01 AM [facility] Outpatient [facility]: [facility] 09/16/2019 10:28:01 AM [facility] Functional Status Medications Medication Brand Name Start [...] 09/12/2020 12:00:00 AM EST 100 mg/mL completed [id number] Haldol Decanoate intramuscularly 09/1209/15/2020 as directed 1 100 mg/mL solution [id number] Kalli real [id number] Nurse Practitioner [facility] ([facility]) Trazodone Hydrochloride 50 MG Oral Tablet trazodone 2019 12:00:00 AM EST 50 mg by mouth completed [id number] trazodone by mouth C382 88 09/12/2020 10/12/2020 every night 30 50 mg tablet [id number] [id number] vero Iglesias [id number] Nurse Practitioner [facility] Trazodone Hydrochloride 50 MG Oral Tablet trazodone 2019 12:00:00 AM EST 50 mg by mouth completed [id number] trazodone by mouth C382 88 09/12/2020 10/12/2020 every night 30 50 mg tablet 22947 [id number] [id number] vero Iglesias [id number] Nurse Practitioner [facility] ([facility]) 1,064 mg/3.9 mL 04/04/2020 12:00:00 AM EDT [...] 01/06/2020 12:00:00 AM EST 300 mg completed [id number] quetiapine 01/06/2020 01/05/2021 at bedtime 30 300 mg tablet 32432 [id number] Dane Mariscal [id number] Psychiatric/Mental Health [facility] ([facility]) 819 mg/2.625 mL 01/06/2020 12:00:00 AM EST syringe 2 USE 1 SYRINGE DIRECTED PASSENGER CAR CLEANING SUPERVISOR YOUR MEDICINE AT THE PHARMACY AND BRING IT TO THE CLINIC FOR YOUR APPOINTMENT USE 1 SYRINGE DIRECTED PASSENGER CAR CLEANING SUPERVISOR YOUR M EDICINE AT THE PHARMACY AND BRING IT TO THE CLINIC FOR YOUR APPOINTMENT SOLD: 01/12/2020 [facility] quetiapine 300 MG Oral Tablet quetiapine 01/06/2020 12:00:00 AM EST 300 mg completed [id number] quetiapine 01/06/2020 01/05/2021 at bedtime 30 300 mg tablet 00333 [id number] Dane Mariscal [id number] Psychiatric/Mental Health [facility] ([facility]) quetiapine 300 MG Oral Tablet quetiapine 01/06/2020 12:00:00 AM EST 300 mg completed [id number] quetiapine 01/06/2020 01/05/2021 at bedtime 30 300 mg tablet 78698 [id number] Dane Mariscal [id number] Psychiatric/Mental Health [facility] ([facility]) 819 mg/2.625 mL 01/06/2020 12:00:00 AM EST syringe 2 USE 1 SYRINGE DIRECTED PASSENGER CAR CLEANING SUPERVISOR YOUR MEDICINE AT THE PHARMACY AND BRING IT TO THE CLINIC FOR YOUR APPOINTMENT USE 1 SYRINGE DIRECTED PASSENGER CAR CLEANING SUPERVISOR YOUR M EDICINE AT THE PHARMACY AND BRING IT TO THE CLINIC FOR YOUR APPOINTMENT SOLD: 04/08/2020 [facility] Aristada Aristada 12/20/2019 12:00:00 AM EST mg/3.9 completed [id number] Aristada intramuscularly 12/20/2019 09/12/2020 1 ,064 mg/3.9 mL suspension,extended rel syring as directed [id number] Dane Mariscal [id number] Psychiatric/Mental Health [facility] ([facility]) 156 mg/mL 12/15/2019 12:00:00 AM EST syringe [...] 10/21/2019 12:00:00 AM EST 156 mg/mL completed [id number] Invega Sustenna 10/21/2019 10/22/2019 single dose 1 156 mg/mL syringe [id number] Dane Mariscal [id number] Psychiatric/Mental Health [facility] ([facility]) 1,064 mg/3.9 mL 10/13/2019 12:00:00 AM EST suspension,extend ed rel syring 3 INJECT 3.9ML INTRAMUSCULARLY - BRING TO CLINIC 10/14/19 INJECT 3.9ML INTRAMUSCULARLY - BRING TO CLINIC 10/14/19 SOLD: 10/13/2019 [facility] Trazodone Hydrochloride 50 MG Oral Tablet trazodone 2018 12:00:00 AM EDT 50 mg by mouth completed [id number] trazodone by mouth C382 88 06/10/2019 09/12/2020 at bedtime 50 mg tablet 71192 [id number] Ja viviana Mariscal [id number] Psychiatric/Mental Health [facility] ([facility]) 2.625 ML paliperidone palmitate 312 MG/ML Prefilled Sy ringe [Invega] Invega Trinza 09/09/2018 12:00:00 AM EST 819 mg/2.625 completed Invega Trinza 09/09/2018 06/04/2020 as directed 180 819 mg/2 .625 mL syringe [id number] [id number] Dane Mariscal [id number] Psychiatri c/Mental Health [facility] ([facility]) 2.625 ML paliperidone palmitate 312 MG/ML Prefilled Sy ringe [Invega] Invega Trinza 09/09/2018 12:00:00 AM EST 819 mg/2.625 completed Invega Trinza 09/09/2018 06/04/2020 as directed 180 819 mg/2 .625 mL syringe [id number] Dane Mariscal [id number] Psychiatri c/Mental Health [facility] ([facility]) 2.625 ML paliperidone palmitate 312 MG/ML Prefilled Sy ringe [Invega] Invega Trinza 09/09/2018 12:00:00 AM EST 819 mg/2.625 completed Invega Trinza 09/09/2018 06/04/2020 as directed 180 819 mg/2 .625 mL syringe [id number] Dane Mariscal [id number] Psychiatri c/Mental Health [facility] ([facility]) 2.625 ML paliperidone palmitate 312 MG/ML Prefilled Sy ringe [Invega] Invega Trinza 09/09/2018 12:00:00 AM EST 819 mg/2.625 completed Invega Trinza 09/09/2018 06/04/2020 as directed 180 819 mg/2 .625 mL syringe [id number] Dane Mariscal [id number] Psychiatri c/Mental Health [facility] ([facility]) Amantadine Hydrochloride 100 MG Oral Capsule amantadine HCl 07/30/2017 12:00:00 AM EDT 100 mg by mouth completed [id number] amantadine HCl by mouth [id number] 07/30/2017 09/12/2020 every morning 100 mg capsule [id number] 0 [id number] Dane Mariscal [id number] Psychiatric/Mental Health [facility] ([facility]) Insurance Providers Payer name Policy type / Coverage type Policy ID Covered alliance party ID Covered alliance party's relationship to shafer Policy Shafer Plan Information [facility] MCDO [id number] SP [id number] [facility] O [id number] S [id number] [facility] I [id number] Self [id number] [facility] TESS [id number] SP [id number] Medicaid S [id number] S [id number] Managed Care - [facility] Community Plan P [id number] S [id number] Medicaid S [id number] S [id number] [facility] [id number] SP [id number] Managed Care - [facility] Community Plan P [id number] S [id number] Self Pay P UNAVAILABLE S UNAVAILA BLE [facility] I [id number] Self [id number] [facility] I [id number] Self [id number] [facility](MCA[facility]) O [id number] S [id number] Managed Care - Community Plan [facility] P [id number] S [id number] Medicaid S [id number] S [id number] [facility] TESS [id number] SP [id number] MEDICAID [id number] SP [id number] [facility] [id number] SP [id number] MEDICAID [id number] SP [id number] [facility] OFFICE OF MENTAL HEALTH UNAVAILABLE S UNAVAILABLE MEDICAID [id number] S [id number] [facility] OFFICE OF MENTAL HEALTH [id number] S [id number] [facility] OFFICE OF MENTAL HEALTH [id number] S [id number] Problems, Conditions, and Diagnoses Code Display Name Description Problem Type Effective Dates Data Source(s) F10.20 Alcohol dependence, uncomplicated Alcohol Use Disorder , Severe Condition 10/18/2020 12:00:00 AM EST [facility] ([facility]) F17.200 Nicotine dependence, unspecified, uncomp licated Tobacco Use Disorder, Moderate Condition 10/18/2020 12:00:00 AM EST [facility] ([facility]) F12.20 Cannabis dependence, uncomplicated Cannabis Use Disorder, Moderate Condition 10/18/2020 12:00:00 AM EST [facility] ([facility]) F20.9 Schizophrenia, unspecified Schizophrenia Condition 10/18/2020 12:00:00 AM EST [facility] ([facility]) 295.32 Chronic paranoid schizophrenia Chronic paranoid schizo phrenia 12/09/2019 04:39:15 PM [facility] R48.0 Dyslexia and alexia Dyslexia AND/OR speech dysfunction 12/09/2019 04:39:15 PM [facility] schizophrenia, hallucinations, substance abuse schizophrenia, hallucinations, substance abuse Diagnosis 09/22/2020 02:27:00 PM [facility] Surgeries/Procedures Procedure Description Date Indications Data Source(s) THERAPEUTIC PROPHYLACTIC/DX INJECTION SUBQ/IM 10/18/2020 12:00:00 AM EST - 10/18/2020 12:00:00 AM EST [facility] ([facility]) THERAPEUTIC PROPHYLACTIC/DX INJECTION SUBQ/IM 10/18/20 20 12:00:00 AM EST [facility] ([facility]) THERAPEUTIC PROPHYLACTIC/DX INJECTION SUBQ/IM 10/15/2020 12:00:00 AM EST - 10/15/2020 12:00:00 AM EST [facility] ([facility]) THERAPEUTIC PROPHYLACTIC/DX INJECTION SUBQ/IM 10/15/20 20 12:00:00 AM EST [facility] ([facility]) THERAPEUTIC PROPHYLACTIC/DX INJECTION SUBQ/IM 10/04/2020 12:00:00 AM EST - 10/04/2020 12:00:00 AM EST [facility] ([facility]) THERAPEUTIC PROPHYLACTIC/DX INJECTION SUBQ/IM 10/04/20 20 12:00:00 AM EST [facility] ([facility]) OFFICE OUTPATIENT VISIT 15 MINUTES 10/04 12:00:00 AM EST - 10/04/2020 12:00:00 AM EST [facility] ([facility]) OFFICE OUTPATIENT VISIT 15 MINUTES 10/04/2020 12:00:00 AM EST [facility] ([facility]) OFFICE OUTPATIENT VISIT 15 MINUTES 09/12 12:00:00 AM EST - 09/12/2020 12:00:00 AM EST [facility] ([facility]) OFFICE OUTPATIENT VISIT 15 MINUTES 09/12/2020 12:00:00 AM EST [facility] ([facility]) THERAPEUTIC PROPHYLACTIC/DX INJECTION SUBQ/IM 09/12/2020 12:00:00 AM EST - 09/12/2020 12:00:00 AM EST [facility] ([facility]) THERAPEUTIC PROPHYLACTIC/DX INJECTION SUBQ/IM 09/12/20 20 12:00:00 AM EST [facility] ([facility]) OFFICE OUTPATIENT VISIT 15 MINUTES 08/10 12:00:00 AM EDT - 08/10/2020 12:00:00 AM EDT [facility] ([facility]) OFFICE OUTPATIENT VISIT 15 MINUTES 08/10/2020 12:00:00 AM EDT [facility] ([facility]) THERAPEUTIC PROPHYLACTIC/DX INJECTION SUBQ/IM 07/13/2020 12:00:00 AM EDT - 07/13/2020 12:00:00 AM EDT [facility] ([facility]) THERAPEUTIC PROPHYLACTIC/DX INJECTION SUBQ/IM 07/13/20 20 12:00:00 AM EDT [facility] ([facility]) MHC Telemed E/M Lvl 3--Est pt 04/25/2020 12:00:00 AM EDT - 04/25/2020 12:00:00 AM EDT [facility] ([facility]) MHC Telemed E/M Lvl 3--Est pt 04/25/2020 12:00:00 AM E DT [facility] ([facility]) Comprehensive medication services, per 15 minutes 04/20/2020 12:00:00 AM EDT - 04/20/2020 12:00:00 AM EDT [facility] ([facility]) Comprehensive medication services, per 15 minutes 04/20/2020 12:00:00 AM EDT [facility] ([facility]) Comprehensive medication services, per 15 minutes 04/20/2020 12:00:00 AM EDT - 04/20/2020 12:00:00 AM EDT [facility] ([facility]) Comprehensive medication services, per 15 minutes 04/20/2020 12:00:00 AM EDT [facility] ([facility]) Comprehensive medication services, per 15 minutes 04/11/2020 12:00:00 AM EDT - 04/11/2020 12:00:00 AM EDT [facility] ([facility]) Comprehensive medication services, per 15 minutes 04/11/2020 12:00:00 AM EDT [facility] ([facility]) Comprehensive medication services, per 15 minutes 04/06/2020 12:00:00 AM EDT - 04/06/2020 12:00:00 AM EDT [facility] ([facility]) Comprehensive medication services, per 15 minutes 04/06/2020 12:00:00 AM EDT [facility] ([facility]) MHC Telemed E/M Lvl 3--Est pt 04/03/2020 12:00:00 AM EDT - 04/03/2020 12:00:00 AM EDT [facility] ([facility]) MHC Telemed E/M Lvl 3--Est pt 04/03/2020 12:00:00 AM E DT [facility] ([facility]) Comprehensive medication services, per 15 minutes 04/02/2020 12:00:00 AM EDT - 04/02/2020 12:00:00 AM EDT [facility] ([facility]) Comprehensive medication services, per 15 minutes 04/02/2020 12:00:00 AM EDT [facility] ([facility]) TEMPMHCTelemed 20" psychotherapy 12:00:00 AM EDT - 02/24/2020 12:00:00 AM EDT [facility] ([facility]) TEMPMHCTelemed 20" psychotherapy 02/24/2020 12:00:00 A M EDT [facility] ([facility]) Comprehensive medication services, per 15 minutes 02/13/2020 12:00:00 AM EDT - 02/13/2020 12:00:00 AM EDT [facility] ([facility]) Comprehensive medication services, per 15 minutes 02/13/2020 12:00:00 AM EDT [facility] ([facility]) Comprehensive medication services, per 15 minutes 02/08/2020 12:00:00 AM EDT - 02/08/2020 12:00:00 AM EDT [facility] ([facility]) Comprehensive medication services, per 15 minutes 02/08/2020 12:00:00 AM EDT [facility] ([facility]) Comprehensive medication services, per 15 minutes 01/13/2020 12:00:00 AM EDT - 01/13/2020 12:00:00 AM EDT [facility] ([facility]) Comprehensive medication services, per 15 minutes 01/13/2020 12:00:00 AM EDT [facility] ([facility]) Comprehensive medication services, per 15 minutes 01/13/2020 12:00:00 AM EDT - 01/13/2020 12:00:00 AM EDT [facility] ([facility]) Comprehensive medication services, per 15 minutes 01/06/2020 12:00:00 AM EST - 01/06/2020 12:00:00 AM EST [facility] ([facility]) Comprehensive medication services, per 15 minutes 01/06/2020 12:00:00 AM EST [facility] ([facility]) OFFICE OUTPATIENT VISIT 10 MINUTES 01/05 12:00:00 AM EST - 01/06/2020 12:00:00 AM EST [facility] ([facility]) OFFICE OUTPATIENT VISIT 10 MINUTES 01/06/2020 12:00:00 AM EST [facility] ([facility]) THERAPEUTIC PROPHYLACTIC/DX INJECTION SUBQ/IM 12/23/2019 12:00:00 AM EST - 12/23/2019 12:00:00 AM EST [facility] ([facility]) THERAPEUTIC PROPHYLACTIC/DX INJECTION SUBQ/IM 12/23/19 12:00:00 AM EST [facility] ([facility]) THERAPEUTIC PROPHYLACTIC/DX INJECTION SUBQ/IM 12/12/2019 12:00:00 AM EST - 12/12/2019 12:00:00 AM EST [facility] ([facility]) THERAPEUTIC PROPHYLACTIC/DX INJECTION SUBQ/IM 12/12/19 12:00:00 AM EST [facility] ([facility]) Comprehensive medication services, per 15 minutes 12/12/2019 12:00:00 AM EST - 12/12/2019 12:00:00 AM EST [facility] ([facility]) Comprehensive medication services, per 15 minutes 12/09/2019 12:00:00 AM EST [facility] ([facility]) Comprehensive medication services, per 15 minutes 11/04/2019 12:00:00 AM EST - 11/04/2019 12:00:00 AM EST [facility] ([facility]) Comprehensive medication services, per 15 minutes 11/04/2019 12:00:00 AM EST [facility] ([facility]) Comprehensive medication services, per 15 minutes 10/28/2019 12:00:00 AM EST - 10/28/2019 12:00:00 AM EST [facility] ([facility]) Comprehensive medication services, per 15 minutes 10/28/2019 12:00:00 AM EST [facility] ([facility]) Comprehensive medication services, per 15 minutes 10/21/2019 12:00:00 AM EST - 10/21/2019 12:00:00 AM EST [facility] ([facility]) Comprehensive medication services, per 15 minutes 10/21/2019 12:00:00 AM EST [facility] ([facility]) THERAPEUTIC PROPHYLACTIC/DX INJECTION SUBQ/IM 10/14/2019 12:00:00 AM EST - 10/14/2019 12:00:00 AM EST [facility] ([facility]) THERAPEUTIC PROPHYLACTIC/DX INJECTION SUBQ/IM 10/14/20 19 12:00:00 AM EST [facility] ([facility]) Results ID Date Data Source [id number] 10/17/2020 12:19:00 AM EST [facility] Name Value Range Interpretation Code Description Data Michelle rce(s) Supporting Document(s) SARS coronavirus 2 RNA [Presence] in Res piratory specimen by OMI with probe detection [facility] This lab was ordered by [facility] a nd reported by [facility]. ID Date Data Source [id number] 02/20/2020 07:40:00 PM EDT [facility] Name Value Range Interpretation Code Description Data Michelle rce(s) Supporting Document(s) SARS CORONAVIRUS 2 RNA [facility] This lab was ordered by [facility] and reported by [facility]. 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) (OEW93-B50.89)Routine general medical examination (over 18) (ICD-V70.0) (POS68-J56.00)Current Medications: INVEGA SUSTENNA 156 MG/ML INTRAMUSCULAR SUSPENSION [...] removal) on Tooth # 30 (Performed by Monik Mercado DMD) Existing:Type - CDT Code - Description[E] Mi ssing - [place] Only/Root Tip On #30 Surface O Region [...] rce(s) Supporting Document(s) ID Date Data Source [id number] 12/09/2019 03:43:52 PM [facility] Measurements & CalculationsHeight: 68 inches 172.72 cm Weight: 162 pounds 73.64 kg Body Mass Index (BMI): 24.72BMI Interpretation: Healthy WeightBody Surface Area (BSA): 1.87Weight Management Education Done (Nutrition/Physical Activity)Vital SignsTemperature: 98F oral Pulse Rate: 86 beats/minuteRespiratory Rate: 22 respirations/minuteBlood Pressure: 118/78 left arm sitting automaticO2 Saturation: 100% room airVital Signs performed by: Hali Pak MA, December 09, 2019 3:53 PMInitial Intake [facility]Infectious Disease- Travel Have [...] Declined Preferred Language: EnglishFamily and Home Address: [address] [place] [address] What is your housing situation today? I have h ousing Are you worried about losing your housing? NoMoney and Resources Employed? NoIn the past year, have you or any family members you live with been unable to get any of the following when it was really needed? Denies Insecurity: food, utilities, clothing, director child, phone, legal services, otherIn the past year, [...] Disorderschizoid affective disorderSurgical History:UnremarkableFamily History:DeceasedSocial/Personal History:Live [place] 1 daughter. Alcohol Use - noDrug Use - noHIV/High Risk - noRegular Exercise - yesSmoking History:Patient is a former smoker. Smoking Status: current every day smokerChief ComplaintRe establishing care History of Present Illness (HPI)I, Hali Pak MA, am scribing for and in the presence of, Sb Hernandez is here today with his hairspring truing inspector, Anita. Has requested that we contact her [...] bar. He was recently just admitted into [facility] on 11/09/2019, he went into the ER for chest pain. Patient often feels like he is being watched within his home, and when he gets home there are people that pop up in his house. He lives with his little brother & mother. He does sleep with a light on so he can be more alert. Leadite Man feels as if he is unable to live by himself due to condition and he has not worked out with living with friends as he likes to be awake during the night. He likes to write, he often goes to [facility] and waits for zcaseworker to be able [...] during this visit, including review of any smxa-eyy-bwifmwc medications, herbal therapies, and/or supplements.Allergy ReviewAllergy List [...] Problems:Added: Dyslexia AND/OR speech dysfunction (ICD- 784.61) (TCY28-Y61.0)Chronic paranoid schizophrenia (ICD-295.32) (ICD10- F20.0)Assessment not SavedChronic paranoid schizophrenia (PZV10-J63.0): Pt to be referred for a controlled [...] POLLEN (Critical)* NKDA (Critical)* PERFUMES (Critical)Orders:Other Referral [021063] Adult - Ofc Vst, NEW, Level IV [CPT- 02710] Follow-Up symptom management Name Value Range Interpretation Code Description Data Michelle rce(s) Supporting Document(s) Procedure Social History Code Duration Value Status Description Data Source(s ) Smoking 10/18/2020 12:00:00 AM EST Unknown if ever smoked comp leted Unknown if ever smoked [facility] ([facility]) Smoking 10/15/2020 12:00:00 AM EST Unknown if ever smoked comp leted Unknown if ever smoked [facility] ([facility]) Smoking 10/04/2020 12:00:00 AM EST Unknown if ever smoked comp leted Unknown if ever smoked [facility] ([facility]) Smoking 09/12/2020 12:00:00 AM EST Unknown if ever smoked comp leted Unknown if ever smoked [facility] ([facility]) Smoking 08/10/2020 12:00:00 AM EDT Unknown if ever smoked comp leted Unknown if ever smoked [facility] ([facility]) Smoking 07/13/2020 12:00:00 AM EDT Unknown if ever smoked comp leted Unknown if ever smoked [facility] ([facility]) Smoking 04/25/2020 12:00:00 AM EDT Unknown if ever smoked comp leted Unknown if ever smoked [facility] ([facility]) Smoking 04/20/2020 12:00:00 AM EDT Unknown if ever smoked comp leted Unknown if ever smoked [facility] ([facility]) Smoking 04/11/2020 12:00:00 AM EDT Unknown if ever smoked comp leted Unknown if ever smoked [facility] ([facility]) Smoking 04/06/2020 12:00:00 AM EDT Unknown if ever smoked comp leted Unknown if ever smoked [facility] ([facility]) Smoking 04/03/2020 12:00:00 AM EDT Unknown if ever smoked comp leted Unknown if ever smoked [facility] ([facility]) Smoking 04/02/2020 12:00:00 AM EDT Unknown if ever smoked comp leted Unknown if ever smoked [facility] ([facility]) Smoking 02/24/2020 12:00:00 AM EDT Unknown if ever smoked comp leted Unknown if ever smoked [facility] ([facility]) Smoking 02/13/2020 12:00:00 AM EDT Unknown if ever smoked comp leted Unknown if ever smoked [facility] ([facility]) Smoking 02/08/2020 12:00:00 AM EDT Unknown if ever smoked comp leted Unknown if ever smoked [facility] ([facility]) Smoking 01/13/2020 12:00:00 AM EDT Unknown if ever smoked comp leted Unknown if ever smoked [facility] ([facility]) Smoking 01/06/2020 12:00:00 AM EST Unknown if ever smoked comp leted Unknown if ever smoked [facility] ([facility]) Smoking 12/23/2019 12:00:00 AM EST Unknown if ever smoked comp leted Unknown if ever smoked [facility] ([facility]) Smoking 12/12/2019 12:00:00 AM EST Unknown if ever smoked comp leted Unknown if ever smoked [facility] ([facility]) Smoking 11/04/2019 12:00:00 AM EST Unknown if ever smoked comp leted Unknown if ever smoked [facility] ([facility]) Smoking 10/28/2019 12:00:00 AM EST Unknown if ever smoked comp leted Unknown if ever smoked [facility] ([facility]) Smoking 10/21/2019 12:00:00 AM EST Unknown if ever smoked comp leted Unknown if ever smoked [facility] ([facility]) Smoking 10/14/2019 12:00:00 AM EST Unknown if ever smoked comp leted Unknown if ever smoked [facility] ([facility]) Vital Signs ID Date Data Source UNK Name Value Range Interpretation Code Description Data Source(s) Diastolic blood pressure 0 mm[Hg] Normal (applies to non-numeric results) 0 mm[Hg] [facility] ([facility]) Systolic blood pressure 0 mm[Hg] Normal (applies t o non-numeric results) 0 mm[Hg] [facility] ([facility]) Body mass index (BMI) [Ratio] 0.00 kg/m2 No rmal (applies to non-numeric results) 0.00 kg/m2 [facility] ([facility]) Body weight Measured 0.00 lbs Normal (applies to n on-numeric results) 0.00 lbs [facility] ([facility]) Body height 0.00 in Normal (applies to non-numeric resu lts) 0.00 in [facility] ([facility]) Diastolic blood pressure 0 mm[Hg] Normal (applies to non-numeric results) 0 mm[Hg] [facility] ([facility]) Systolic blood pressure 0 mm[Hg] Normal (applies t o non-numeric results) 0 mm[Hg] [facility] ([facility]) Body mass index (BMI) [Ratio] 0.00 kg/m2 No rmal (applies to non-numeric results) 0.00 kg/m2 [facility] ([facility]) Body weight Measured 0.00 lbs Normal (applies to n on-numeric results) 0.00 lbs [facility] ([facility]) Body height 0.00 in Normal (applies to non-numeric resu lts) 0.00 in [facility] ([facility]) Diastolic blood pressure 0 mm[Hg] Normal (applies to non-numeric results) 0 mm[Hg] [facility] ([facility]) Systolic blood pressure 0 mm[Hg] Normal (applies t o non-numeric results) 0 mm[Hg] [facility] ([facility]) Body mass index (BMI) [Ratio] 0.00 kg/m2 No rmal (applies to non-numeric results) 0.00 kg/m2 [facility] ([facility]) Body weight Measured 0.00 lbs Normal (applies to n on-numeric results) 0.00 lbs [facility] ([facility]) Body height 0.00 in Normal (applies to non-numeric resu lts) 0.00 in [facility] ([facility]) Diastolic blood pressure 0 mm[Hg] Normal (applies to non-numeric results) 0 mm[Hg] [facility] Systolic blood pressure 0 mm[Hg] Normal (applies t o non-numeric results) 0 mm[Hg] [facility] ([facility]) Body mass index (BMI) [Ratio] 0.00 kg/m2 No rmal (applies to non-numeric results) 0.00 kg/m2 [facility] ([facility]) Body weight Measured 0.00 lbs Normal (applies to n on-numeric results) 0.00 lbs [facility] ([facility]) Body height 0.00 in Normal (applies to non-numeric resu lts) 0.00 in [facility] ([facility]) ID Date Data Source [id number] 09/22/2020 02:27:[address] [facility] Name Value Range Interpretation Code Description Data Source(s) TRANSFER FROM [facility]
[2020-11-14] MEDS ORDERED: ACETAMINOPHEN 500 MG TAB PO ONE (13:15)
== END 2020-11-14 13:57 | disposition home or self-care (01) ==
LOC: M ED 11:45
DX: R51.9 Headache, unspecified (principal); R05 Cough; I10 Essential (primary) hypertension; J45.909 Unspecified asthma, uncomplicated; F20.9 Schizophrenia, unspecified; F33.9 Major depressive disorder, recurrent, unspecified; F41.9 Anxiety disorder, unspecified; F19.10 Other psychoactive substance abuse, uncomplicated; F17.200 Nicotine dependence, unspecified, uncomplicated; Z79.51 Long term (current) use of inhaled steroids; Z79.899 Other long term (current) drug therapy

== ENCOUNTER 2020-11-25 13:18 | Emergency (ER) | payer OTHER ==
[~2020-11-25] VITALS: Ht 175.3 cm; Wt 68.7 kg
[2020-11-25 13:18] VITALS: BP 111/76
[~2020-11-25 13:18] MED LIST changes: -QUET1TAB10; -QUET1TAB7 PO; +QUET25TA3 PO; +QUET300T2; +QUET50TA3; +QUET50TA3 PO; -QUET5TAB; -QUET5TAB PO; +TESS100C
[2020-11-25 14:34] LABS: HEMATOCRIT 42.6 % (42.0-52.0); HEMOGLOBIN 13.7 g/dl (13.5-17.5); MEAN CORPUSCULAR HEMOGLOBIN 29.4 pg (27.0-33.0); MEAN CORPUSCULAR HGB CONC 32.2 g/dl (32.0-36.5); MEAN CORPUSCULAR VOLUME 91.4 fl (80.0-96.0); PLATELET COUNT, AUTOMATED 277 10^3/uL (150-450); RED BLOOD COUNT 4.66 10^6/uL (4.30-6.10); WHITE BLOOD COUNT 6.5 10^3/uL (4.0-10.0)
[2020-11-25 14:59] LABS: AMPHETAMINES LEVEL URINE POSITIVE (NEGATIVE); BARBITURATES URINE NEGATIVE (NEGATIVE); BENZODIAZEPINES URINE NEGATIVE (NEGATIVE); CANNABINOIDS URINE POSITIVE (NEGATIVE); COCAINE METABOLITE URINE POSITIVE (NEGATIVE); METHADONE URINE NEGATIVE (NEGATIVE); OPIATES URINE NEGATIVE (NEGATIVE); PHENCYCLIDINE URINE NEGATIVE (NEGATIVE)
[2020-11-25 15:17] LABS: ACETAMINOPHEN LEVEL < 2.0 UG/ML (10.0-30.0); ALBUMIN 3.5 GM/DL (3.2-5.2); ALT/SGPT 29 U/L (12-78); BILIRUBIN,DIRECT 0.2 MG/DL (0.0-0.2); BILIRUBIN,TOTAL 0.8 MG/DL (0.2-1.0); BLOOD UREA NITROGEN 13 MG/DL (7-18); CALCIUM LEVEL 9.1 MG/DL (8.5-10.1); CARBON DIOXIDE LEVEL 30 MEQ/L (21-32); CHLORIDE LEVEL 109 MEQ/L (98-107); CREATININE FOR GFR 1.05 MG/DL (0.70-1.30); ETHYL ALCOHOL (ETHANOL) < 0.003 % (0.000-0.010); GLOMERULAR FILTRATION RATE > 60.0 (>60); GLUCOSE, FASTING 73 MG/DL (70-100); POTASSIUM SERUM 4.3 MEQ/L (3.5-5.1); SALICYLATE LEVEL 1.8 MG/DL (5.0-30.0); SODIUM LEVEL 142 MEQ/L (136-145); THYROID STIMULATING HORMONE 0.762 uIU/ML (0.358-3.740); TOTAL PROTEIN 6.9 GM/DL (6.4-8.2)
== END 2020-11-25 16:40 | disposition home or self-care (01) ==
LOC: M ED 13:18
DX: R44.0 Auditory hallucinations (principal); F19.10 Other psychoactive substance abuse, uncomplicated; F12.10 Cannabis abuse, uncomplicated; F14.10 Cocaine abuse, uncomplicated; I10 Essential (primary) hypertension; F17.200 Nicotine dependence, unspecified, uncomplicated
CPT/HCPCS: 36415; 80048; 80076; 80307; 84443; 85027; 99283; G0480

== ENCOUNTER 2020-12-20 07:41 | Emergency (ER) | payer OTHER ==
[~2020-12-20] VITALS: Ht 172.7 cm; Wt 72.2 kg
--- OUTSIDE RECORDS SUMMARY | 2020-12-20 07:48 | CCD ---
Author Author Gabo Escobar Victorino Organization Unknown Address [address] [address] Phone Care Team Providers Care Registration Manager Name Role Phone Victorino Escobar PCP Allergies, Adverse Reactions, Alerts No Data in Section Problem List Concept Problem Description Status Start Date Created Date Resolv ed Date Snomed Code F20.9 Schizophrenia Active 04/22/2016 04/22/2016 F12.20 Cannabis Use Disorder, Moderate Active 12/06/19 F17.200 Tobacco Use Disorder, Moderate Active F10.20 Alcohol Use Disorder, Severe Active 12/06/2020 Medications Rx Norm Medication Route Route Concept Start Date Stop Date Dosage Reggie quency Duration Formula Strength Dosage Form Dosage Form Code Dosage Description Medication Id Account Npid Author First Name Author Last Name Taxonomy Code Taxonomy Desc Phone Number [id number] haloperidol decanoate intramuscularly 10/04/2020 0 12/27/2020 as directed 21 100 mg/mL solution [id number] Victorino Su randy [id number] Psychiatry [id number] Social History Social History Element Description Concept Effective Date Smoking Status Unknown if ever smoked [id number] Immunizations No Data in Section Vital Signs No Data in Section Procedures Date Concept Id Description Targeted Site Concept Targeted Site Concept Type 12/06/2020 [id number] [facility] Telemed E/M Lvl 3--Est pt CPT Patient has no history of implantable de vices Encounters Encounter Start Date End Date Encounter Type Description Diagnosis Di agnosis Desc Location Author First Name Author Last Name Npid Taxonomy Cod e Taxonomy Desc Phone Number Location Addr1 Location Addr2 Location City Location Sta te Location [facility] [id number] 12/06/2020 12/06/2020 [id number] [facility] Telemed E/M Lvl 3--Est p t F20.9 Schizophrenia, unspecified [facility] Escobarhubert Gleason [id number] Psychiatry [id number] [address] [place] [address] [facility] [id number] Plan of Treatment No Data in Section Lab Results No Data in Section Instructions No Data in Section Insurance Providers Insurance Id Policy Effective Date Policy Thru Date Company [employer] [id number] 2016 [id number]
--- OUTSIDE RECORDS SUMMARY | 2020-12-20 07:48 | CCD ---
Author Author Gabo Escobar Victorino Organization Unknown Address [address] [place] [address] Phone Care Team Providers [facility] Name Role Phone Victorino Escobar PCP Allergies, Adverse Reactions, Alerts No Data in Section Problem List Concept Problem Description Status Start Date Created Date Resolv ed Date Snomed Code F20.9 Schizophrenia Active 04/22/2016 04/22/2016 F12.20 Cannabis Use Disorder, Moderate Active 11/15/19 F17.200 Tobacco Use Disorder, Moderate Active F10.20 Alcohol Use Disorder, Severe Active 11/15/2020 Medications Rx Norm Medication Route Route Concept Start Date Stop Date Dosage Reggie quency Duration Formula Strength Dosage Form Dosage Form Code Dosage Description Medication Id Account Npid Author First Name Author Last Name Taxonomy Code Taxonomy Desc Phone Number [id number] haloperidol decanoate intramuscularly 10/04/2020 0 12/27/2020 as directed 21 100 mg/mL solution 65926 [id number] Victorino Arcos arez [id number] Psychiatry [id number] Social History Social History Element Description Concept Effective Date Smoking Status Unknown if ever smoked [id number] Immunizations No Data in Section Vital Signs Encounter Date Height Ins Weight Lbs Bmi Bp Systolic Bp Diastoli c Oxygen Saturation Respiration Rate Pulse Rate Body Temp Head Circumference Heigh t Lying 11/15/2020 0.00 0.00 0.00 0 0 0.00 0 0 0.00 0.0 0.0 0 Procedures Date Concept Id Description Targeted Site Concept Targeted Site Concept Type 11/15/2020 14781 E/M Level 3 - Established Patient CPT Patient has no history of implantable de vices Encounters Encounter Start Date End Date Encounter Type Description Diagnosis Di agnosis Desc Location Author First Name Author Last Name Npid Taxonomy Cod e Taxonomy Desc Phone Number Location Addr1 Location Addr2 Location [facility] Location [facility] Location [facility] [id number] 11/15/2020 11/15/2020 67304 E/M Level 3 - Established [place] robyn F20.9 Schizophrenia, unspecified [facility] [phone] [id number] Psychiatry [phone] [address] [facility] [address] Plan of Treatment No Data in Section Lab Results No Data in Section Instructions No Data in Section Functional Cognitive Status No Data in Section Insurance Providers Insurance Id Policy Effective Date Policy Thru Date Company N kishore [id number] 2016 [email or web address]
--- OUTSIDE RECORDS SUMMARY | 2020-12-20 07:48 | CCD ---
Author Author Gabo Christine Organization Unknown Address [address] [address] Phone Care Team Providers [facility] Solicitor Name Role Phone Tammie Christine PCP Allergies, Adverse Reactions, Alerts No Data [...] Name Taxonomy Code Taxonomy Desc Phone Number [phone] haloperidol decanoate intramuscularly 10/04/2020 0 12/27/2020 as directed 21 100 mg/mL solution [id number] [id number] Victorino Arcos arepantera [id number] Psychiatry [phone] Social History Social History Element Description Concept Effective Date Smoking Status Unknown if ever smoked [id number] Immunizations No Data in Section Vital Signs No Data in Section Procedures Date Concept Id Description Targeted Site Concept Targeted Site Concept Type 11/15/2020 H2010 Injectable Medication Administra tion w/ Monitoring & Education CPT Patient has no history of implantable de vices Encounters Encounter Start Date End Date Encounter Type Description Diagnosis Di agnosis Desc Location Author First Name Author Last Name Npid Taxonomy Cod e Taxonomy Desc Phone Number Location Addr1 Location Addr2 Location City Location [place] Location Zip [id number] 11/15/2020 11/15/2020 H2010 Injectable Medi cation Administration w/ Monitoring & Education F20.9 Schizophrenia, unspecified [facility] Emmett Araujo [id number] Registered Nurse [id number] [address] [address] Plan of Treatment No Data in Section Lab Results No Data in Section Instructions No Data in Section Insurance Providers Insurance Id Policy Effective Date Policy Thru Date Company [employer] [id number] 2016 [email or web address]
--- OUTSIDE RECORDS SUMMARY | 2020-12-20 07:49 | CCD ---
Author Author [facility] Address Unknown Phone Unavailable Care Team Providers Care Auto Tester Name Role Phone Victorino Escobar Unavailable Ku, Diamante JOB FOREMAN JOB FOREMAN Unavailable Unavailable Amanda Walker Unavailable Unavailable [facility], JLAFLEUR Unavailable Unavailable Ku, F Diamante JOB FOREMAN-BC Unavailable Unavailable Ku, F Diamante JOB FOREMAN-BC Unavailable Unavailable Ku, F Diamante JOB FOREMAN-BC Unavailable Unavailable Ku, F Diamante JOB FOREMAN-BC Unavailable Unavailable Ku, F Diamante JOB FOREMAN-BC Unavailable Unavailable Ku, F Diamante JOB FOREMAN-BC Unavailable Unavailable Ku, F Diamante JOB FOREMAN-BC Unavailable Unavailable Ku, F Diamante JOB FOREMAN-BC Unavailable Unavailable Ku, F Diamante JOB FOREMAN-BC Unavailable Unavailable Ku, F Diamante JOB FOREMAN-BC Unavailable Unavailable Ku, F Diamante JOB FOREMAN-BC Unavailable Unavailable Ku, F Diamante JOB FOREMAN-BC Unavailable Unavailable Ku, F Diamante JOB FOREMAN-BC Unavailable Unavailable Ku, F Diamante JOB FOREMAN-BC Unavailable Unavailable Ku, F Diamante JOB FOREMAN-BC Unavailable Unavailable Ku, F Diamante JOB FOREMAN-BC Unavailable Unavailable Ku, F Diamante JOB FOREMAN-BC Unavailable Unavailable Ku, F Diamante JOB FOREMAN-BC Unavailable Unavailable Ku, F Diamante JOB FOREMAN-BC Unavailable Unavailable Ku, F Diamante JOB FOREMAN-BC Unavailable Unavailable Ku, F Diamante JOB FOREMAN-BC Unavailable Unavailable Ku, F Diamante JOB FOREMAN-BC Unavailable Unavailable Chin, Georges DO Unavailable Unavailable [facility], WCMIN CHIN DO GEORGES Unavailable Unavailable Rotella, Jossy [...] Unavailable Unavailable Solomon Treviño MD Unavailable Unavailable [place], C Dane Unavailable Unavailable Loida, C Dane Unavailable Unavailable Loida, C Dane Unavailable Unavailable Loida, C Dane Unavailable Unavailable Loida, C Dane Unavailable Unavailable Loida, C Dane Unavailable Unavailable [place], C Dane Unavailable Unavailable Margarito Tricia Unavailable Devin BINGHAM MD Unavailable Unavailable Devin [...] Unavailable Devin BINGHAM MD Unavailable Unavailable Devin BINHGAM MD Unavailable Unavailable Devin BINGHAM MD Unavailable [...] Unavailable HERIBERTO, Devin JOEL MD Unavailable Unavailable HERIBERTODevin JACKSON MD Unavailable Unavailable HERIBERTO, Devin JOEL MD [...] Unavailable HERIBERTO, Devin JOEL MD Unavailable Unavailable Devin BINGHAM MD Unavailable Unavailable Devin BINGHAM MD Unavailable Unavailable Devin BINGHAM MD Unavailable Unavailable Devin BINGHAM MD Unavailable Unavailable Devin BINGHAM MD Unavailable Unavailable HERIBERTO, Devin JOEL MD Unavailable Unavailable Devin BINGHAM MD Unavailable Unavailable [facility] Unavailable [facility] Unavailable [phone] SYSTEM IN, NOT IN PROVIDER Unavailable Unavailable [...] is protected by Article 27-F of the [facility] Public Health law. If you continue you may have access to information: Regarding HIV / AIDS; Provided by facilities licensed or operated by the [facility] Office of Mental Health; or Provided by the [facility] Office for People With Developmental Disabilities. If such information is present, then the following [facility] mandated warning applies: This information has been [...] law may result in a fine or halfway sentence or both. A general authorization for the release of medical or other information is NOT sufficient authorization for further disc losure. Allergies and Adverse Reactions Type Description Substance Reaction Status Data Source(s ) Drug Class NO KNOWN ALLERGIES NO KNOWN ALLERGIES [facility] Food allergy PERFUMES PERFUMES [facility] Encounters Encounter Providers Location Date Indications Data Source(s ) Outpatient Attender: Victorino Arcosarez [facility] 0 12/06/2020 12:30:00 PM EST - 12/06/2020 12:30:00 PM EST [facility] ([facility]) Attender: Victorino Escobar 12/06/2020 12:00:00 AM EST [facility] ([facility]) Injectable Medication Administration w/ Monitoring & E ducation Attender: [facility] [place] 11/15/2020 11:15:00 AM EST - 11/15/2020 11:15:00 AM EST [facility] ([facility]) Outpatient Attender: Victorino Escobar [facility] 0 11/15/2020 11:00:00 AM EST - 11/15/2020 11:00:00 AM EST [facility] ([facility]) [facility]: [facility] 12:00:00 AM EST [facility] ([facility]) Attender: Victorino Escobar 11/15/2020 12:00:00 AM EST [facility] ([facility]) Injectable Psychotropic Medication Administration (Inj ection Only) Attender: Jossy Mejia [facility] 10/18/2020 10:30:00 AM EST - 10/18/2020 10:30:00 AM EST [facility] ([facility]) Attender: Jossy Mejia 10/18/2020 12:00:00 AM EST [facility] ([facility]) Injectable Psychotropic Medication Administration (Inj ection Only) Attender: Jossy Mejia [facility] 10/15/2020 11:00:00 AM EST - 10/15/2020 11:00:00 AM EST [facility] ([facility]) Attender: Jossy Mejia 10/15/2020 12:00:00 AM EST [facility] ([facility]) Injectable Psychotropic Medication Administration (Inj ection Only) Attender: Jossy Jackteena [facility] 10/04/2020 10:30:00 AM EST - 10/04/2020 10:30:00 AM EST [facility] ([facility]) Outpatient Attender: KALLI MOLINAURSZULA [facility] Lynn mora 10/04/2020 10:00:00 AM EST - 10/04/2020 10:00:00 AM EST [facility] ([facility]) Attender: Jossy Mejia 10/04/2020 12:00:00 AM EST [facility] ([facility]) Attender: KALLI MOLINAURSZULA 10/04/2020 12:00: 00 AM EST [facility] ([facility]) Outpatient Referrer: PROVIDER SYSTEM IN 09/22/2020 0 2:27:00 PM EST schizophrenia, hallucinations, substance abuse [facility] schizophrenia, hallucinations, substance abuse Injectable Psychotropic Medication Administration (Inj ection Only) [facility] 09:30:00 AM EST - 09/12/2020 09:30:00 AM EST [facility] ([facility] 09:00:00 AM EST - 09/12/2020 09:00:00 AM EST [facility] ([facility] 12:00: 00 AM EST [facility] ([facility]) Attender: Jossy Jackie 09/12/2020 12:00:00 AM EST [facility] ([facility]) Outpatient Attender: KALLI KELSIE MOLINAURSZULA [facility] ail 08/10/2020 02:00:00 AM EDT - 08/10/2020 02:00:00 AM EDT [facility] ([facility] 08/10/2020 12:00: 00 AM EDT [facility] ([facility]) Injectable Psychotropic Medication Administration (Inj ection Only) Attender: Jossy Mejia [facility] 07/13/2020 02:00:00 AM EDT - 07/13/2020 02:00:00 AM EDT [facility] ([facility]) Attender: Jossy Rotteena 07/13/2020 12:00:00 AM EDT [facility] ([facility]) Outpatient Attender: Pasha Treviño MD 07/12/2020 02:46:50 PM EDT [facility] Outpatient Attender: Pasha Treviño MD 06/21/2020 10:56:00 AM EDT [facility] Outpatient Attender: Pasha Treviño MD 05/31/2020 07:32:00 AM EDT [facility] Outpatient Attender: Pasha Treviño MD 05/25/2020 03:00:09 PM EDT [facility] Outpatient Attender: Pasha MOLINA 05/23/2020 09:41:01 AM EDT [facility] Outpatient Attender: Pasha MOLINA 05/21/2020 10:21:00 AM EDT [facility] Outpatient Attender: AKUA GUERRERO DO SU [facility] 05/18/2020 01:05:01 PM EDT [facility] Outpatient Attender: AKUA GUERRERO DO SU [facility] 05/11/2020 01:05:00 PM EDT [facility] Outpatient Attender: DO Guerrero FP 05/10/2020 09:29:01 AM EDT [facility] Outpatient Attender: AKUA GUERRERO DO SU [facility] 05/02/2020 02:17:00 PM EDT [facility] Outpatient Attender: KALLI IGLESIAS [facility] 04/25/2020 10:30:00 AM EDT - 04/25/2020 10:30:00 AM EDT [facility] ([facility]) [facility] 04/25/2020 12:00: 00 AM EDT [facility] ([facility]) Injectable Medication Administration w/ Monitoring & E ducation Attender: Tricia Pimentel [facility] 04/20/2020 11:30:00 AM EDT - 04/20/2020 11:30:00 AM EDT [facility] ([facility]) Injectable Medication Administration w/ Monitoring & E ducation Attender: Tricia Pimentel [facility] 04/20/2020 09:00:00 AM EDT - 04/20/2020 09:00:00 AM EDT [facility] ([facility]) Attender: Tricia Pimentel 04/20/2020 12:00:00 AM EDT [facility] ([facility]) Attender: Tricia Pimentel 04/20/2020 12:00:00 AM EDT [facility] ([facility]) Injectable Medication Administration w/ Monitoring & E ducation Attender: Tricia Pimentel [facility] 04/11/2020 11:00:00 AM EDT - 04/11/2020 11:00:00 AM EDT [facility] ([facility]) Attender: Tricia Pimentel 04/11/2020 12:00:00 AM EDT [facility] ([facility]) Injectable Medication Administration w/ Monitoring & E ducation Attender: Tricia Pimentel [facility] 04/06/2020 09:30:00 AM EDT - 04/06/2020 09:30:00 AM EDT [facility] ([facility]) Attender: Tricia Pimentel 04/06/2020 12:00:00 AM EDT [facility] ([facility]) Outpatient Attender: Too Batista NP [facility] 04/03/2020 11:00:00 AM EDT - 04/03/2020 11:00:00 AM EDT [facility] ([facility]) Attender: Too Batista NP 04/03/2020 12:00:00 AM EDT [facility] ([facility]) Injectable Medication Administration w/ Monitoring & E ducation Attender: Tricia Pimentel [facility] 04/02/2020 01:00:00 AM EDT - 04/02/2020 01:00:00 AM EDT [facility] ([facility]) Attender: Tricia Pimentel 04/02/2020 12:00:00 AM EDT [facility] ([facility]) Outpatient Attender: DO Jake MOLINA 03/19/2020 07:46:00 AM EDT [facility] Outpatient Attender: AKUA HAYDEN [facility] 03/13/2020 02:30:02 PM EDT [facility] Outpatient Attender: AKUA HAYDEN [facility] 03/09/2020 01:00:08 PM EDT [facility] TEMPMHCTelemed 20" psychotherapy Attender: Amanda Walker [facility] 02/24/2020 03:00:00 AM EDT - 02/24/2020 03:00:00 AM EDT [facility] ([facility]) Attender: Amanda Walker 02/24/2020 12:00:00 AM EDT [facility] ([facility]) Outpatient Attender: AKUA HAYDEN [facility] 02/23/2020 01:21:00 PM EDT [facility] Outpatient Attender: AKUA HAYDEN [facility] 02/13/2020 03:57:00 PM EDT [facility] Outpatient Attender: AKUA NESBITT JESSE 02/13/2020 02:28:01 PM EDT [facility] Injectable Medication Administration w/ Monitoring & E ducation [facility]: [facility] 11:00:00 AM EDT - 02/13/2020 11:00:00 AM EDT [facility] ([facility] Attender: Tricia Pimentel 02/13/2020 12:00:00 AM EDT [facility] ([facility]) Outpatient Attender: AKUA H[facility]DEN [facility] 02/09/2020 10:24:32 AM EDT [facility] Outpatient Attender: DO Jake MOLINA 02/08/2020 01:59:01 PM EDT [facility] Injectable Medication Administration w/ Monitoring & E ducation Attender: Tricia Pimentel [facility] 02/08/2020 09:30:00 AM EDT - 02/08/2020 09:30:00 AM EDT [facility] ([facility]) Outpatient Attender: Diamante MOLINA 02/08/2020 09: 13:00 AM EDT [facility] Attender: Tricia Pimentel 02/08/2020 12:00:00 AM EDT [facility] ([facility]) Outpatient Attender: Diamante MOLINA 02/03/2020 08: 50:00 AM EDT [facility] Outpatient Attender: SERGIO MOLINA 02/03/2020 08:12:00 AM EDT [facility] Outpatient Attender: SERGIO MOLINA 01/24/2020 03:46:01 PM EDT [facility] Injectable Medication Administration w/ Monitoring & E ducation Attender: Tricia Pimentel [facility] 01/13/2020 11:00:00 AM EDT - 01/13/2020 11:00:00 AM EDT [facility]: Tricia Pimentel 01/13/2020 12:00:00 AM EDT [facility] ([facility]) Attender: Tricia Pimentel 01/13/2020 12:00:00 AM EDT [facility] Injectable Medication Administration w/ Monitoring & E ducation Attender: Tricia Pimentel [facility] 01/06/2020 11:45:00 AM EST - 01/06/2020 11:45:00 AM EST [facility] Outpatient Attender: Dane Mariscal [facility] 0 01/06/2020 11:30:00 AM EST - 01/06/2020 11:30:00 AM EST [facility] ([facility]) Attender: Tricia Pimentel 01/06/2020 12:00:00 AM EST [facility] ([facility]) Attender: Dane Mariscal 01/06/2020 12:00:00 AM EST [facility] ([facility]) Injectable Psychotropic Medication Administration (Inj ection Only) Attender: Jossy Mejia [facility] 12/23/2019 10:30:00 AM EST - 12/23/2019 10:30:00 AM EST [facility] Attender: Jossy Mejia 12/23/2019 12:00:00 AM EST [facility] ([facility]) Outpatient Attender: DO Jake MOLINA 12/14/2019 08:36:00 AM [facility] Outpatient Attender: DO Jake MOLINA 12/12/2019 10:47:00 AM [facility] Outpatient Attender: DO Jake MOLINA 12/12/2019 10:30:01 AM [facility] Outpatient Attender: DO Jake MOLINA 12/12/2019 10:29:00 AM [facility] Outpatient Attender: DO Jake MOLINA 12/12/2019 10:28:00 AM [facility] Injectable Psychotropic Medication Administration (Inj ection Only) Attender: Tricia Pimentel [facility] 12/12/2019 02:00:00 AM EST - 12/12/2019 02:00:00 AM EST [facility] ([facility]) Attender: Tricia Pimentel 12/12/2019 12:00:00 AM EST [facility] ([facility]) Attender: Tricia Pimentel 12/12/2019 12:00:00 AM EST [facility] Out[facility] Attender: MARYCRUZ BINGHAM MD 12/10/2019 12:00:29 A [facility] Outpatient Attender: MARYCRUZ BINGHAM MD 12/09/2019 04:40:01 P [facility] Outpatient Attender: MARYCRUZ BINGHAM MD 12/09/2019 04:40:00 P [facility] Outpatient Attender: MARYCRUZ BINGHAM MD 12/09/2019 03:45:02 P [facility] Injectable Medication Administration w/ Monitoring & E ducation Attender: Tricia Pimentel [facility] 12/09/2019 11:30:00 AM EST - 12/09/2019 11:30:00 AM EST [facility] ([facility]) Outpatient Attender: MARYCRUZ BINGHAM MD 11/17/2019 11:07:00 A [facility] Injectable Medication Administration w/ Monitoring & E ducation Attender: Tricia Pimentel [facility] 11/04/2019 11:15:00 AM EST - 11/04/2019 11:15:00 AM EST [facility] ([facility]) Attender: Tricia Pimentel 11/04/2019 12:00:00 AM EST [facility] ([facility]) Outpatient Attender: MARYCRUZ BINGHAM MD 10/31/2019 08:59:04 A [facility] Injectable Medication Administration w/ Monitoring & E ducation Attender: Tricia Pimentel [facility] 10/28/2019 11:15:00 AM EST - 10/28/2019 11:15:00 AM EST [facility] ([facility]) Attender: Tricia Pimentel 10/28/2019 12:00:00 AM EST [facility] ([facility]) Outpatient Attender: MARYCRUZ BINGHAM MD 10/25/2019 11:59:00 A [facility] Outpatient Attender: MARYCRUZ BINGHAM MD 10/25/2019 11:58:01 A [facility] Outpatient Attender: MARYCRUZ BINGHAM MD 10/25/2019 11:51:00 A [facility] Outpatient Attender: MARYCRUZ BINGHAM MD 10/25/2019 11:50:00 A M EST [facility] 10/21/2019 02:51:00 PM [facility] Functional Status Medications Medication Brand Name Start Date Product Form Dose Route Admi nistrative Instructions Pharmacy Instructions Status Indications Reaction Description Data Source(s) haloperidol decanoate haloperidol decanoate 10/04/2020 12:00:00 AM EST 100 mg/mL completed [id number] haloperidol decanoate intr amuscularly 10/04/2020 12/27/2020 as directed 21 100 mg/mL solution [id number] [id number] Victorino Escobar [id number] Psychiatry [facility] ([facility]) 100 mg/mL 10/02/2020 12:00:00 AM EST solution [...] 09/12/2020 12:00:00 AM EST 100 mg/mL completed [id number] Haldol Decanoate intramuscularly 09/1209/15/2020 as directed 1 100 mg/mL solution 07843 [id number] Kalli real [id number] Nurse Practitioner [facility] ([facility]) Trazodone Hydrochloride 50 MG Oral Tablet trazodone 2019 12:00:00 AM EST 50 mg by mouth completed [id number] trazodone by mouth C382 88 09/12/2020 10/12/2020 every night 30 50 mg tablet 20642 [id number] Darien Iglesias [id number] Nurse Practitioner [facility] ([facility]) Trazodone Hydrochloride 50 MG Oral Tablet trazodone 2019 12:00:00 AM EST 50 mg by mouth completed [id number] trazodone by mouth C382 88 09/12/2020 10/12/2020 every night 30 50 mg tablet 30973 [id number] vero Egorho [id number] Nurse Practitioner [facility] 1,064 mg/3.9 mL 04/04/2020 12:00:00 AM EDT [...] 01/06/2020 12:00:00 AM EST 300 mg completed [id number] quetiapine 01/06/2020 01/05/2021 at bedtime 30 300 mg tablet 14876 [id number] Dane Mariscal [id number] Psychiatric/Mental Health [facility] ([facility]) 819 mg/2.625 mL 01/06/2020 12:00:00 AM EST syringe 2 USE 1 SYRINGE DIRECTED MEDICAL CODER YOUR MEDICINE AT THE PHARMACY AND BRING IT TO THE CLINIC FOR YOUR APPOINTMENT USE 1 SYRINGE DIRECTED MEDICAL CODER YOUR M EDICINE AT THE PHARMACY AND BRING IT TO THE CLINIC FOR YOUR APPOINTMENT SOLD: 01/12/2020 [facility] quetiapine 300 MG Oral Tablet quetiapine 01/06/2020 12:00:00 AM EST 300 mg completed [id number] quetiapine 01/06/2020 01/05/2021 at bedtime 30 300 mg tablet 32476 [id number] Dane Loida [id number] Psychiatric/Mental Health [facility] ([facility]) quetiapine 300 MG Oral Tablet quetiapine 01/06/2020 12:00:00 AM EST 300 mg completed [id number] quetiapine 01/06/2020 01/05/2021 at bedtime 30 300 mg tablet 16078 [id number] Dane Loida [id number] Psychiatric/Mental Health [facility] ([facility]) 819 mg/2.625 mL 01/06/2020 12:00:00 AM EST syringe 2 USE 1 SYRINGE DIRECTED MEDICAL CODER YOUR MEDICINE AT THE PHARMACY AND BRING IT TO THE CLINIC FOR YOUR APPOINTMENT USE 1 SYRINGE DIRECTED MEDICAL CODER YOUR M EDICINE AT THE PHARMACY AND BRING IT TO THE CLINIC FOR YOUR APPOINTMENT SOLD: 04/08/2020 [facility] Aristada Aristada 12/20/2019 12:00:00 AM EST mg/3.9 completed [id number] Aristada intramuscularly 12/20/2019 09/12/2020 1 ,064 mg/3.9 mL suspension,extended rel syring as directed [id number] Dane Mariscal [id number] Psychiatric/Mental Health [facility] ([facility]) 156 mg/mL 12/15/2019 12:00:00 AM EST [...] FOR NURSE TO ADMINISTER SOLD: 12/09/2019 [facility] 156 mg/mL 10/24/2019 12:00:00 AM EST syringe 1 INJ ECT 156MG INTRAMUSCULARLY INJECT 156MG INTRAMUSCULARLY SOLD: 10/27/2019 [facility] 1 ML paliperidone palmitate 156 MG/ML Prefilled Syring e [Invega] Invega Sustenna 10/21/2019 12:00:00 AM EST 156 mg/mL completed [id number] Invega Sustenna 10/21/2019 10/22/2019 single dose 1 156 mg/mL syringe [id number] Dane Mariscal [id number] Psychiatric/Mental Health [facility] ([facility]) Trazodone Hydrochloride 50 MG Oral Tablet trazodone 2018 12:00:00 AM EDT 50 mg by mouth completed [id number] trazodone by mouth C382 88 06/10/2019 09/12/2020 at bedtime 50 mg tablet 72393 [id number] [facility] viviana Mariscal [id number] Psychiatric/Mental Health [facility] ([facility]) 2.625 ML paliperidone palmitate 312 MG/ML Prefilled Sy ringe [Invega] Invega Trinza 09/09/2018 12:00:00 AM EST 819 mg/2.625 completed Invega Trinza 09/09/2018 06/04/2020 as directed 180 819 mg/2 .625 mL syringe 63034 [id number] Dane Mariscal [id number] Psychiatri c/Mental Health [facility] ([facility]) 2.625 ML paliperidone palmitate 312 MG/ML Prefilled Sy ringe [Invega] Invega Trinza 09/09/2018 12:00:00 AM EST 819 mg/2.625 completed Invega Trinza 09/09/2018 06/04/2020 as directed 180 819 mg/2 .625 mL syringe 92963 [id number] Dane Mariscal [id number] Psychiatri c/Mental Health [facility] ([facility]) 2.625 ML paliperidone palmitate 312 MG/ML Prefilled Sy ringe [Invega] Invega Trinza 09/09/2018 12:00:00 AM EST 819 mg/2.625 completed Invega Trinza 09/09/2018 06/04/2020 as directed 180 819 mg/2 .625 mL syringe 60281 [id number] Dane Mariscal [id number] Psychiatri c/Mental Health [facility] ([facility]) 2.625 ML paliperidone palmitate 312 MG/ML Prefilled Sy ringe [Invega] Invega Trinza 09/09/2018 12:00:00 AM EST 819 mg/2.625 completed [id number] Invega Trinza 09/09/2018 06/04/2020 as directed 180 819 mg/2 .625 mL syringe 03848 [id number] Dane Loida [id number] Psychiatri c/Mental Health [facility] ([facility]) Amantadine Hydrochloride 100 MG Oral Capsule amantadine HCl 07/30/2017 12:00:00 AM EDT 100 mg by mouth completed [id number] amantadine HCl by mouth [id number] 07/30/2017 09/12/2020 every morning 100 mg capsule 5436 0 [id number] Dane Mariscal [id number] Psychiatric/Mental Health [facility] ([facility]) Insurance Providers Payer name Policy type / Coverage type Policy ID Covered republican ID Covered republican's relationship to shafer Policy Shafer Plan Information [facility] MCDO [id number] SP [id number] [facility] O [id number] S [id number] [facility] I [id number] Self [id number] [facility] TESS [id number] SP [id number] Medicaid S [id number] S [id number] Managed Care - [facility] Community Plan P [id number] S [id number] Medicaid S [id number] S [id number] [facility] [id number] SP [id number] Managed Care - [facility] Community Plan P [id number] S [id number] Self Pay P UNAVAILABLE S UNAVAILA BLE UHC I [id number] Self [id number] [facility] I [id number] Self [id number] [facility]) O [id number] S [id number] Managed Care - Community Plan [facility] P [id number] S [id number] Medicaid S [id number] [facility] TESS [id number] SP [id number] MEDICAID [id number] SP [id number] [facility] [id number] SP [id number] MEDICAID [id number] SP [id number] [facility] OFFICE OF MENTAL HEALTH UNAVAILABLE S UNAVAILABLE MEDICAID [id number] S [id number] [facility] OFFICE OF MENTAL HEALTH [id number] S [id number] [facility] OFFICE OF MENTAL HEALTH [id number] Problems, Conditions, and Diagnoses Code Display Name Description Problem Type Effective Dates Data Source(s) F10.20 Alcohol dependence, uncomplicated Alcohol Use Disorder , Severe Condition 12/06/2020 12:00:00 AM EST [facility] ([facility]) F17.200 Nicotine dependence, unspecified, uncomp licated Tobacco Use Disorder, Moderate Condition 12/06/2020 12:00:00 AM EST [facility] ([facility]) F12.20 Cannabis dependence, uncomplicated Cannabis Use Disorder, Moderate Condition 12/06/2020 12:00:00 AM EST [facility] ([facility]) F20.9 Schizophrenia, unspecified Schizophrenia Condition 12/06/2020 12:00:00 AM EST [facility] ([facility]) 295.32 Chronic paranoid schizophrenia Chronic paranoid schizo phrenia 12/09/2019 04:39:15 PM [facility] R48.0 Dyslexia and alexia Dyslexia AND/OR speech dysfunction 12/09/2019 04:39:15 PM [facility] schizophrenia, hallucinations, substance abuse schizophrenia, hallucinations, substance abuse Diagnosis 09/22/2020 02:27:00 PM [facility] Surgeries/Procedures Procedure Description Date Indications Data Source(s) [facility] Telemed E/M Lvl 3--Est pt 12/06/2020 12:00:00 AM EST - 12/06/2020 12:00:00 AM EST [facility] ([facility]) [facility] Telemed E/M Lvl 3--Est pt 12/06/2020 12:00:[address] [facility] ([facility]) Comprehensive medication services, per 15 minutes 11/15/2020 12:00:00 AM EST - 11/15/2020 12:00:00 AM EST [facility] ([facility]) Comprehensive medication services, per 15 minutes 11/15/2020 12:00:00 AM EST [facility] ([facility]) OFFICE OUTPATIENT VISIT 15 MINUTES 11/15 12:00:00 AM EST - 11/15/2020 12:00:00 AM EST [facility] ([facility]) OFFICE OUTPATIENT VISIT 15 MINUTES 11/15/2020 12:00:00 AM EST [facility] ([facility]) THERAPEUTIC PROPHYLACTIC/DX INJECTION SUBQ/IM 10/18/2020 12:00:00 AM EST - 10/18/2020 12:00:00 AM EST [facility] ([facility]) THERAPEUTIC PROPHYLACTIC/DX INJECTION SUBQ/IM 10/18/20 12:00:00 AM EST [facility] ([facility]) THERAPEUTIC PROPHYLACTIC/DX INJECTION SUBQ/IM 10/15/2020 12:00:00 AM EST - 10/15/2020 12:00:00 AM EST [facility] ([facility]) THERAPEUTIC PROPHYLACTIC/DX INJECTION SUBQ/IM 10/15/20 12:00:00 AM EST [facility] ([facility]) THERAPEUTIC PROPHYLACTIC/DX INJECTION SUBQ/IM 10/04/2020 12:00:00 AM EST - 10/04/2020 12:00:00 AM EST [facility] ([facility]) THERAPEUTIC PROPHYLACTIC/DX INJECTION SUBQ/IM 10/04/20 12:00:00 AM EST [facility] ([facility]) OFFICE OUTPATIENT VISIT 15 MINUTES 10/04 12:00:00 AM EST - 10/04/2020 12:00:00 AM EST [facility] ([facility]) OFFICE OUTPATIENT VISIT 15 MINUTES 10/04/2020 12:00:00 AM EST [facility] ([facility]) OFFICE OUTPATIENT VISIT 15 MINUTES 09/12 12:00:00 AM EST - 09/12/2020 12:00:00 AM EST [facility] ([facility]) OFFICE OUTPATIENT VISIT 15 MINUTES 09/12/2020 12:00:00 AM EST [facility] ([facility]) THERAPEUTIC PROPHYLACTIC/DX INJECTION SUBQ/IM 09/12/2020 12:00:00 AM EST - 09/12/2020 12:00:00 AM EST [facility] ([facility]) THERAPEUTIC PROPHYLACTIC/DX INJECTION SUBQ/IM 09/12/20 20 12:00:00 AM EST [facility] ([facility]) OFFICE OUTPATIENT VISIT 15 MINUTES 08/10 12:00:00 AM EDT - 08/10/2020 12:00:00 AM EDT [facility] ([facility]) OFFICE OUTPATIENT VISIT 15 MINUTES 08/10/2020 12:00:00 AM EDT [facility] ([facility]) THERAPEUTIC PROPHYLACTIC/DX INJECTION SUBQ/IM 07/13/2020 12:00:00 AM EDT - 07/13/2020 12:00:00 AM EDT [facility] ([facility]) THERAPEUTIC PROPHYLACTIC/DX INJECTION SUBQ/IM 07/13/20 20 12:00:00 AM EDT [facility] ([facility]) MHC Telemed E/M Lvl 3--Est pt 04/25/2020 12:00:00 AM EDT - 04/25/2020 12:00:00 AM EDT [facility] ([facility]) MHC Telemed E/M Lvl 3--Est pt 04/25/2020 12:00:00 AM E DT [facility] ([facility]) Comprehensive medication services, per 15 minutes 04/20/2020 12:00:00 AM EDT - 04/20/2020 12:00:00 AM EDT [facility] ([facility]) Comprehensive medication services, per 15 minutes 04/20/2020 12:00:00 AM EDT [facility] ([facility]) Comprehensive medication services, per 15 minutes 04/20/2020 12:00:00 AM EDT - 04/20/2020 12:00:00 AM EDT [facility] ([facility]) Comprehensive medication services, per 15 minutes 04/20/2020 12:00:00 AM EDT [facility] ([facility]) Comprehensive medication services, per 15 minutes 04/11/2020 12:00:00 AM EDT - 04/11/2020 12:00:00 AM EDT [facility] ([facility]) Comprehensive medication services, per 15 minutes 04/11/2020 12:00:00 AM EDT [facility] ([facility]) Comprehensive medication services, per 15 minutes 04/06/2020 12:00:00 AM EDT - 04/06/2020 12:00:00 AM EDT [facility] ([facility]) Comprehensive medication services, per 15 minutes 04/06/2020 12:00:00 AM EDT [facility] ([facility]) MHC Telemed E/M Lvl 3--Est pt 04/03/2020 12:00:00 AM EDT - 04/03/2020 12:00:00 AM EDT [facility] ([facility]) MHC Telemed E/M Lvl 3--Est pt 04/03/2020 12:00:00 AM E DT [facility] ([facility]) Comprehensive medication services, per 15 minutes 04/02/2020 12:00:00 AM EDT - 04/02/2020 12:00:00 AM EDT [facility] ([facility]) Comprehensive medication services, per 15 minutes 04/02/2020 12:00:00 AM EDT [facility] ([facility]) TEMPMHCTelemed 20" psychotherapy 020 12:00:00 AM EDT - 02/24/2020 12:00:00 AM EDT [facility] ([facility]) TEMPMHCTelemed 20" psychotherapy 02/24/2020 12:00:00 A M EDT [facility] ([facility]) Comprehensive medication services, per 15 minutes 02/13/2020 12:00:00 AM EDT - 02/13/2020 12:00:00 AM EDT [facility] ([facility]) Comprehensive medication services, per 15 minutes 02/13/2020 12:00:00 AM EDT [facility] ([facility]) Comprehensive medication services, per 15 minutes 02/08/2020 12:00:00 AM EDT - 02/08/2020 12:00:00 AM EDT [facility] ([facility]) Comprehensive medication services, per 15 minutes 02/08/2020 12:00:00 AM EDT [facility] ([facility]) Comprehensive medication services, per 15 minutes 01/13/2020 12:00:00 AM EDT - 01/13/2020 12:00:00 AM EDT [facility] ([facility]) Comprehensive medication services, per 15 minutes 01/13/2020 12:00:00 AM EDT [facility] ([facility]) Comprehensive medication services, per 15 minutes 01/13/2020 12:00:00 AM EDT - 01/13/2020 12:00:00 AM EDT [facility] ([facility]) Comprehensive medication services, per 15 minutes 01/06/2020 12:00:00 AM EST - 01/06/2020 12:00:00 AM EST [facility] ([facility]) Comprehensive medication services, per 15 minutes 01/06/2020 12:00:00 AM EST [facility] ([facility]) OFFICE OUTPATIENT VISIT 10 MINUTES 01/05 12:00:00 AM EST - 01/06/2020 12:00:00 AM EST [facility] ([facility]) OFFICE OUTPATIENT VISIT 10 MINUTES 01/06/2020 12:00:00 AM EST [facility] ([facility]) THERAPEUTIC PROPHYLACTIC/DX INJECTION SUBQ/IM 12/23/2019 12:00:00 AM EST - 12/23/2019 12:00:00 AM EST [facility] ([facility]) THERAPEUTIC PROPHYLACTIC/DX INJECTION SUBQ/IM 12/23/19 20 12:00:00 AM EST [facility] ([facility]) THERAPEUTIC PROPHYLACTIC/DX INJECTION SUBQ/IM 12/12/2019 12:00:00 AM EST - 12/12/2019 12:00:00 AM EST [facility] ([facility]) THERAPEUTIC PROPHYLACTIC/DX INJECTION SUBQ/IM 12/12/19 20 12:00:00 AM EST [facility] ([facility]) Comprehensive medication services, per 15 minutes 12/12/2019 12:00:00 AM EST - 12/12/2019 12:00:00 AM EST [facility] ([facility]) Comprehensive medication services, per 15 minutes 12/09/2019 12:00:00 AM EST [facility] ([facility]) Comprehensive medication services, per 15 minutes 11/04/2019 12:00:00 AM EST - 11/04/2019 12:00:00 AM EST [facility] ([facility]) Comprehensive medication services, per 15 minutes 11/04/2019 12:00:00 AM EST [facility] ([facility]) Comprehensive medication services, per 15 minutes 10/28/2019 12:00:00 AM EST - 10/28/2019 12:00:00 AM EST [facility] ([facility]) Comprehensive medication services, per 15 minutes 10/28/2019 12:00:00 AM EST [facility] ([facility]) Results ID Date Data Source [id number] 10/17/2020 12:19:00 AM EST [facility] Name Value Range Interpretation Code Description Data Michelle rce(s) Supporting Document(s) SARS coronavirus 2 RNA [Presence] in Res piratory specimen by OMI with probe detection [facility] This lab was ordered by [facility] a nd reported by [facility]. ID Date Data Source [id number] 02/20/2020 07:40:00 PM EDT [facility] Name Value Range Interpretation Code Description Data Michelle rce(s) Supporting Document(s) SARS CORONAVIRUS 2 RNA [facility] This lab was ordered by [facility] and reported by [facility]. 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) (FPH67-N70.89)Routine general medical examination (over 18) (ICD-V70.0) (XHS11-V91.00)Current Medications: INVEGA SUSTENNA 156 MG/ML INTRAMUSCULAR SUSPENSION [...] CDT Code - Description[E] Mi ssing - Ovando Only/Root Tip On #30 Surface O Region [...] rce(s) Supporting Document(s) ID Date Data Source [id number] 12/09/2019 03:43:52 PM [facility] Measurements & CalculationsHeight: 68 [...] 09, 2019 3:53 PMInitial [facility]Infectious Disease- Travel Have you or [...] Declined Preferred Language: EnglishFamily and Home Address: [address] [place] [address] What is your housing situation today? I have h ousing Are you worried about losing your housing? NoMoney and Resources Employed? NoIn the past year, have you or any family members you live with been unable to get any of the following when it was really needed? Denies Insecurity: food, utilities, clothing, child care center administrator, phone, legal services, otherIn the past year, [...] Disorderschizoid affective disorderSurgical History:UnremarkableFamily History:DeceasedSocial/Personal History:[place] 1 daughter. Alcohol Use - noDrug Use - noHIV/High Risk - noRegular Exercise - yesSmoking History:Patient is a former smoker. Smoking Status: current every day smokerChief ComplaintRe establishing care History of Present Illness (HPI)I, Hali Pak MA, am scribing for and in the presence of, Sb Hernandez is here today with his inspector and unloader, Anita. Has requested that we contact her [...] bar. He was recently just admitted into [facility] on 11/09/2019, he went into the ER for chest pain. Patient often feels like he is being watched within his home, and when he gets home there are people that pop up in his house. He lives with his little brother & mother. He does sleep with a light on so he can be more alert. 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 He likes to write, he often goes to DSS and waits for zcaseworker to be able [...] during this visit, including review of any [id number] medications, herbal therapies, and/or supplements.Allergy ReviewAllergy List [...] Problems:Added: Dyslexia AND/OR speech dysfunction (ICD- 784.61) (UII21-W77.0)Chronic paranoid schizophrenia (ICD-295.32) (ICD10- F20.0)Assessment not SavedChronic paranoid schizophrenia (RPW54-P93.0): Pt to be referred for a controlled [...] POLLEN (Critical)* NKDA (Critical)* PERFUMES (Critical)Orders:Other Referral [[id number]] Adult - [facility], NEW, Level IV [CPT- 06743] Follow-Up symptom management Name Value Range Interpretation Code Description Data Michelle rce(s) Supporting Document(s) Procedure Social History Code Duration Value Status Description Data Source(s ) Smoking 12/06/2020 12:00:00 AM EST Unknown if ever smoked comp leted Unknown if ever smoked [facility] ([facility]) Smoking 11/15/2020 12:00:00 AM EST Unknown if ever smoked comp leted Unknown if ever smoked [facility] ([facility]) Smoking 10/18/2020 12:00:00 AM EST Unknown if ever smoked comp leted Unknown if ever smoked [facility] ([facility]) Smoking 10/15/2020 12:00:00 AM EST Unknown if ever smoked comp leted Unknown if ever smoked [facility] ([facility]) Smoking 10/04/2020 12:00:00 AM EST Unknown if ever smoked comp leted Unknown if ever smoked [facility] ([facility]) Smoking 09/12/2020 12:00:00 AM EST Unknown if ever smoked comp leted Unknown if ever smoked [facility] ([facility]) Smoking 08/10/2020 12:00:00 AM EDT Unknown if ever smoked comp leted Unknown if ever smoked [facility] ([facility]) Smoking 07/13/2020 12:00:00 AM EDT Unknown if ever smoked comp leted Unknown if ever smoked [facility] ([facility]) Smoking 04/25/2020 12:00:00 AM EDT Unknown if ever smoked comp leted Unknown if ever smoked [facility] ([facility]) Smoking 04/20/2020 12:00:00 AM EDT Unknown if ever smoked comp leted Unknown if ever smoked [facility] ([facility]) Smoking 04/11/2020 12:00:00 AM EDT Unknown if ever smoked comp leted Unknown if ever smoked [facility] ([facility]) Smoking 04/06/2020 12:00:00 AM EDT Unknown if ever smoked comp leted Unknown if ever smoked [facility] ([facility]) Smoking 04/03/2020 12:00:00 AM EDT Unknown if ever smoked comp leted Unknown if ever smoked [facility] ([facility]) Smoking 04/02/2020 12:00:00 AM EDT Unknown if ever smoked comp leted Unknown if ever smoked [facility] ([facility]) Smoking 02/24/2020 12:00:00 AM EDT Unknown if ever smoked comp leted Unknown if ever smoked [facility] ([facility]) Smoking 02/13/2020 12:00:00 AM EDT Unknown if ever smoked comp leted Unknown if ever smoked [facility] ([facility]) Smoking 02/08/2020 12:00:00 AM EDT Unknown if ever smoked comp leted Unknown if ever smoked [facility] ([facility]) Smoking 01/13/2020 12:00:00 AM EDT Unknown if ever smoked comp leted Unknown if ever smoked [facility] ([facility]) Smoking 01/06/2020 12:00:00 AM EST Unknown if ever smoked comp leted Unknown if ever smoked [facility] ([facility]) Smoking 12/23/2019 12:00:00 AM EST Unknown if ever smoked comp leted Unknown if ever smoked [facility] ([facility]) Smoking 12/12/2019 12:00:00 AM EST Unknown if ever smoked comp leted Unknown if ever smoked [facility] ([facility]) Smoking 11/04/2019 12:00:00 AM EST Unknown if ever smoked comp leted Unknown if ever smoked [facility] ([facility]) Smoking 10/28/2019 12:00:00 AM EST Unknown if ever smoked comp leted Unknown if ever smoked [facility] ([facility]) Vital Signs ID Date Data Source UNK Name Value Range Interpretation Code Description Data Source(s) Diastolic blood pressure 0 mm[Hg] Normal (applies to non-numeric results) 0 mm[Hg] [facility] ([facility]) Systolic blood pressure 0 mm[Hg] Normal (applies t o non-numeric results) 0 mm[Hg] [facility] ([facility]) Body mass index (BMI) [Ratio] 0.00 kg/m2 No rmal (applies to non-numeric results) 0.00 kg/m2 [facility] ([facility]) Body weight Measured 0.00 lbs Normal (applies to n on-numeric results) 0.00 lbs [facility] ([facility]) Body height 0.00 in Normal (applies to non-numeric resu lts) 0.00 in [facility] ([facility]) Diastolic blood pressure 0 mm[Hg] Normal (applies to non-numeric results) 0 mm[Hg] [facility] ([facility]) Systolic blood pressure 0 mm[Hg] Normal (applies t o non-numeric results) 0 mm[Hg] [facility] ([facility]) Body mass index (BMI) [Ratio] 0.00 kg/m2 No rmal (applies to non-numeric results) 0.00 kg/m2 [facility] Body weight Measured 0.00 lbs Normal (applies to n on-numeric results) 0.00 lbs [facility] ([facility]) Body height 0.00 in Normal (applies to non-numeric resu lts) 0.00 in [facility] ([facility]) Diastolic blood pressure 0 mm[Hg] Normal (applies to non-numeric results) 0 mm[Hg] [facility] ([facility]) Systolic blood pressure 0 mm[Hg] Normal (applies t o non-numeric results) 0 mm[Hg] [facility] ([facility]) Body mass index (BMI) [Ratio] 0.00 kg/m2 No rmal (applies to non-numeric results) 0.00 kg/m2 [facility] ([facility]) Body weight Measured 0.00 lbs Normal (applies to n on-numeric results) 0.00 lbs [facility] ([facility]) Body height 0.00 in Normal (applies to non-numeric resu lts) 0.00 in [facility] ([facility]) Diastolic blood pressure 0 mm[Hg] Normal (applies to non-numeric results) 0 mm[Hg] [facility] ([facility]) Systolic blood pressure 0 mm[Hg] Normal (applies t o non-numeric results) 0 mm[Hg] [facility] ([facility]) Body mass index (BMI) [Ratio] 0.00 kg/m2 No rmal (applies to non-numeric results) 0.00 kg/m2 [facility] ([facility]) Body weight Measured 0.00 lbs Normal (applies to n on-numeric results) 0.00 lbs [facility] ([facility]) Body height 0.00 in Normal (applies to non-numeric resu lts) 0.00 in [facility] Diastolic blood pressure 0 mm[Hg] Normal (applies to non-numeric results) 0 mm[Hg] [facility] ([facility]) Systolic blood pressure 0 mm[Hg] Normal (applies t o non-numeric results) 0 mm[Hg] [facility]) Body mass index (BMI) [Ratio] 0.00 kg/m2 No rmal (applies to non-numeric results) 0.00 kg/m2 [facility] ([facility]) Body weight Measured 0.00 lbs Normal (applies to n on-numeric results) 0.00 lbs [facility] ([facility]) Body height 0.00 in Normal (applies to non-numeric resu lts) 0.00 in [facility] ([facility]) ID Date Data Source [id number] 09/22/2020 02:27:59 PM [facility] Name Value Range Interpretation Code Description Data Source(s) [facility]
--- OUTSIDE RECORDS SUMMARY | 2020-12-20 09:02 | CCD ---
Author Author [facility] Address Unknown Phone Unavailable Support Name Relationship Address Phone Pasha Treviño MD Next Of Kin [address] [place], [place] [phone] Diamante Costa Next Of Kin [address] [place] [address] Georges Guerrero DO Next Of Kin [address] [place] [address] [place] [address] SELF, INAZ Next Of Kin [address] [place] [address] YONI JACK Next Of Kin [address] [place], [place] [id number] CORRECTIONAL, [place] Next Of Kin [address] [place] [address] Monique Conklin MD Next Of Kin [address] [place] [phone] YONI CALHOUN Next Of [address] [address] Isabelle Manning Next Of Kin [address] [place], [place] [phone] Pat Gallo DO Next Of Kin [address] [place] [address] DISABLED Next Of Kin Unknown Unavailable [place] Self Next Of Kin [address] [place] [phone] SELF, [place] [address] SELF, JUNIOR Next Of Kin [address] [place] [id number] UE Next Of Kin Unknown Unavailable SIMON WALL Next Of Kin [address] [place] [address] Care Team Providers Care Field Attendant Name Role Phone Victorino Escobar Unavailable Ku, Diamante AIRPORT OPERATIONS OFFICER AIRPORT OPERATIONS OFFICER Unavailable Unavailable Amanda Walker Unavailable Unavailable [facility], JLAFLEUR Unavailable Unavailable Ku, F Diamante AIRPORT OPERATIONS OFFICER-BC Unavailable Unavailable Ku, F Diamante AIRPORT OPERATIONS OFFICER-BC Unavailable Unavailable Ku, F Diamante AIRPORT OPERATIONS OFFICER-BC Unavailable Unavailable Ku, F Diamante AIRPORT OPERATIONS OFFICER-BC Unavailable Unavailable Ku, F Diamante AIRPORT OPERATIONS OFFICER-BC Unavailable Unavailable Ku, F Diamante AIRPORT OPERATIONS OFFICER-BC Unavailable Unavailable Ku, F Diamante AIRPORT OPERATIONS OFFICER-BC Unavailable Unavailable Ku, F Diamante AIRPORT OPERATIONS OFFICER-BC Unavailable Unavailable Ku, F Diamante AIRPORT OPERATIONS OFFICER-BC Unavailable Unavailable Ku, F Diamante AIRPORT OPERATIONS OFFICER-BC Unavailable Unavailable Ku, F Diamante AIRPORT OPERATIONS OFFICER-BC Unavailable Unavailable Ku, F Diamante AIRPORT OPERATIONS OFFICER-BC Unavailable Unavailable Ku, F Diamante AIRPORT OPERATIONS OFFICER-BC Unavailable Unavailable Ku, F Diamante AIRPORT OPERATIONS OFFICER-BC Unavailable Unavailable Ku, F Diamante AIRPORT OPERATIONS OFFICER-BC Unavailable Unavailable Ku, F Diamante AIRPORT OPERATIONS OFFICER-BC Unavailable Unavailable Ku, F Diamante AIRPORT OPERATIONS OFFICER-BC Unavailable Unavailable Ku, F Diamante AIRPORT OPERATIONS OFFICER-BC Unavailable Unavailable Ku, F Diamante AIRPORT OPERATIONS OFFICER-BC Unavailable Unavailable Ku, F Diamante AIRPORT OPERATIONS OFFICER-BC Unavailable Unavailable Ku, F Diamante AIRPORT OPERATIONS OFFICER-BC Unavailable Unavailable Ku, F Diamante AIRPORT OPERATIONS OFFICER-BC Unavailable Unavailable Chin, Georges DO Unavailable Unavailable [facility], WCMON CHIN DO GEORGES Unavailable Unavailable Rotella, Jossy [...] Unavailable Solomon Treviño MD Unavailable Unavailable Solomon Trevioñ MD Unavailable Unavailable Solomon Treviño MD Unavailable [...] Unavailable Unavailable Solomon Treviño MD Unavailable Unavailable Soloomn Treviño MD Unavailable Unavailable Solomon Treviño MD Unavailable Unavailable Magnolia, C Dane Unavailable Unavailable Loida, C Dane Unavailable Unavailable Loida, C Dane Unavailable Unavailable Loida, C Dane Unavailable Unavailable Loida, C Dane Unavailable Unavailable Loida, C Dane Unavailable Unavailable Magnolia, C Dane Unavailable Unavailable Margarito Tricia Unavailable [...] HERIBERTODevin JACKSON MD Unavailable Unavailable HERIBERTO, Devin JOLE MD [...] Unavailable HERIBERTO, Devin JOEL MD Unavailable Unavailable Deivn BINGHAM MD Unavailable Unavailable Devin BINGHAM MD Unavailable Unavailable Devin BINGHAM MD Unavailable Unavailable Devin BINGHAM MD Unavailable Unavailable eDvin BINGHAM MD Unavailable Unavailable HERIBERTO, Devin JOEL MD Unavailable Unavailable Devin BINGHAM MD Unavailable Unavailable [facility] OF Unavailable [phone] [facility] OF Unavailable SYSTEM IN, NOT IN PROVIDER Unavailable [...] is protected by Article 27-F of the [facility] Public Health law. If you continue you may have access to information: Regarding HIV / AIDS; Provided by facilities licensed or operated by the [facility] Office of Mental Health; or Provided by the [facility] Office for People With Developmental Disabilities. If such information is present, then the following [facility] mandated warning applies: This information has been [...] law may result in a fine or senior care sentence or both. A general authorization for the release of medical or other information is NOT sufficient authorization for further disc losure. Allergies and Adverse Reactions Type Description Substance Reaction Status Data Source(s ) Drug Class NO KNOWN ALLERGIES NO KNOWN ALLERGIES [facility] Food allergy PERFUMES PERFUMES [facility] Encounters Encounter Providers Location Date Indications Data Source(s ) Outpatient Attender: Victorino Arcosarez [facility] 0 12/06/2020 12:30:00 PM EST - 12/06/2020 12:30:00 PM EST [facility] ([facility]) Attender: Victorino Escobar 12/06/2020 12:00:00 AM EST [facility] ([facility]) Injectable Medication Administration w/ Monitoring & E ducation Attender: [facility] 11/15/2020 11:15:00 AM EST - 11/15/2020 11:15:00 AM EST [facility] ([facility]) Outpatient Attender: Victorino Escobar [facility] 0 11/15/2020 11:00:00 AM EST - 11/15/2020 11:00:00 AM EST [facility] ([facility]) Attender: [facility] 12:00:00 AM EST [facility] ([facility]) Attender: Victorino Escobar 11/15/2020 12:00:00 AM EST [facility] ([facility]) Injectable Psychotropic Medication Administration (Inj ection Only) Attender: Jossy Mejia [facility] 10/18/2020 10:30:00 AM EST - 10/18/2020 10:30:00 AM EST [facility] ([facility]) Attender: Jossy Mejia 10/18/2020 12:00:00 AM EST [facility] ([facility]) Injectable Psychotropic Medication Administration (Inj ection Only) Attender: Jossy Mejia [facility] 10/15/2020 11:00:00 AM EST - 10/15/2020 11:00:00 AM EST [facility] ([facility]) Attender: Jossy Mejia 10/15/2020 12:00:00 AM EST [facility] ([facility]) Injectable Psychotropic Medication Administration (Inj ection Only) Attender: Jossy Jackteena [facility] 10/04/2020 10:30:00 AM EST - 10/04/2020 10:30:00 AM EST [facility] ([facility]) Outpatient Attender: KALLI MOLINAURSZULA [facility] Lynn mora 10/04/2020 10:00:00 AM EST - 10/04/2020 10:00:00 AM EST [facility] ([facility]) Attender: Jossy Mejia 10/04/2020 12:00:00 AM EST [facility] ([facility]) Attender: KALLI MOLINAURSZULA 10/04/2020 12:00: 00 AM EST [facility] ([facility]) Outpatient Referrer: PROVIDER SYSTEM IN 09/22/2020 0 2:27:00 PM EST schizophrenia, hallucinations, substance abuse [facility] schizophrenia, hallucinations, substance abuse Injectable Psychotropic Medication Administration (Inj ection Only) [facility]12[facility] 09:30:00 AM EST - 09/12/2020 09:30:00 AM EST [facility] ([facility]) [facility] 09/12/2020 09:00:00 AM EST - 09/12/2020 09:00:00 AM EST [facility] ([facility]) [facility]: [facility] 09/12/2020 12:00: 00 AM EST [facility] ([facility]) Attender: Jossy Jackie 09/12/2020 12:00:00 AM EST [facility] ([facility]) Outpatient Attender: KALLI KELSIE MOLINAURSZULA [facility] ail 08/10/2020 02:00:00 AM EDT - 08/10/2020 02:00:00 AM EDT [facility] ([facility]) [facility]: [facility] 08/10/2020 12:00: 00 AM EDT [facility] ([facility]) Injectable Psychotropic Medication Administration (Inj ection Only) Attender: Jossy Mejia [facility] 07/13/2020 02:00:00 AM EDT - 07/13/2020 02:00:00 AM EDT [facility] ([facility]) Attender: Jossy Rotteena 07/13/2020 12:00:00 AM EDT [facility] ([facility]) Outpatient Attender: Pasha Treviño MD 07/12/2020 02:46:50 PM EDT [facility] Outpatient Attender: Pasha Treviño MD 06/21/2020 10:56:00 AM EDT [facility] Outpatient Attender: Pasha Treviño MD 05/31/2020 07:32:00 AM EDT [facility] Outpatient Attender: Pasha Treviño MD 05/25/2020 03:00:09 PM EDT [facility] Outpatient Attender: Pasha MOLINA 05/23/2020 09:41:01 AM EDT [facility] Outpatient Attender: Pasha MOLINA 05/21/2020 10:21:00 AM EDT [facility] Outpatient Attender: AKUA GUERRERO DO [facility] 05/18/2020 01:05:01 PM EDT [facility] Outpatient Attender: AKUA GUERRERO DO [facility] 05/11/2020 01:05:00 PM EDT [facility] Outpatient Attender: DO Guerrero FP 05/10/2020 09:29:01 AM EDT [facility] Outpatient Attender: AKUA GUERRERO DO [facility] 05/02/2020 02:17:00 PM EDT [facility] Outpatient Attender: KALLI IGLESIAS [facility] 04/25/2020 10:30:00 AM EDT - 04/25/2020 10:30:00 AM EDT [facility] ([facility]) [facility] 04/25/2020 12:00: 00 AM EDT [facility] ([facility]) Injectable Medication Administration w/ Monitoring & E ducation Attender: Tricia Pimentel [facility] 04/20/2020 11:30:00 AM EDT - 04/20/2020 11:30:00 AM EDT [facility] ([facility]) Injectable Medication Administration w/ Monitoring & E ducation Attender: Tricia Pimentel [facility] 04/20/2020 09:00:00 AM EDT - 04/20/2020 09:00:00 AM EDT [facility] ([facility]) Attender: Tricia Pimentel 04/20/2020 12:00:00 AM EDT [facility] ([facility]) Attender: Tricia Pimentel 04/20/2020 12:00:00 AM EDT [facility] ([facility]) Injectable Medication Administration w/ Monitoring & E ducation Attender: Tricia Pimentel [facility] 04/11/2020 11:00:00 AM EDT - 04/11/2020 11:00:00 AM EDT [facility] ([facility]) Attender: Tricia Pimentel 04/11/2020 12:00:00 AM EDT [facility] ([facility]) Injectable Medication Administration w/ Monitoring & E ducation Attender: Tricia Pimentel [facility] 04/06/2020 09:30:00 AM EDT - 04/06/2020 09:30:00 AM EDT [facility] ([facility]) Attender: Tricia Pimentel 04/06/2020 12:00:00 AM EDT [facility] ([facility]) Outpatient Attender: Too Batista NP [facility] 04/03/2020 11:00:00 AM EDT - 04/03/2020 11:00:00 AM EDT [facility] ([facility]) Attender: Too Batista NP 04/03/2020 12:00:00 AM EDT [facility] ([facility]) Injectable Medication Administration w/ Monitoring & E ducation Attender: Tricia Pimentel [facility] 04/02/2020 01:00:00 AM EDT - 04/02/2020 01:00:00 AM EDT [facility] ([facility]) Attender: Tricia Pimentel 04/02/2020 12:00:00 AM EDT [facility] ([facility]) Outpatient Attender: DO Jake MOLINA 03/19/2020 07:46:00 AM EDT [facility] Outpatient Attender: AKUA HAYDEN [facility] 03/13/2020 02:30:02 PM EDT [facility] Outpatient Attender: AKUA HAYDEN [facility] 03/09/2020 01:00:08 PM EDT [facility] TEMPMHCTelemed 20" psychotherapy Attender: Amanda Walker [facility] 02/24/2020 03:00:00 AM EDT - 02/24/2020 03:00:00 AM EDT [facility] ([facility]) Attender: Amanda Walker 02/24/2020 12:00:00 AM EDT [facility] ([facility]) Outpatient Attender: AKUA HAYDEN [facility] 02/23/2020 01:21:00 PM EDT [facility] Outpatient Attender: AKUA HAYDEN [facility] 02/13/2020 03:57:00 PM EDT [facility] Outpatient Attender: AKUA NESBITT JESSE 02/13/2020 02:28:01 PM EDT [facility] Injectable Medication Administration w/ Monitoring & E ducation Attender: [facility] 02/13/2020 11:00:00 AM EDT - 02/13/2020 11:00:00 AM EDT [facility] Attender: Tricai Pimentel 02/13/2020 12:00:00 AM EDT [facility] ([facility]) Outpatient Attender: AKUA HAYDEN [facility] JESSE 02/09/2020 10:24:32 AM EDT [facility] Outpatient Attender: DO Jake MOLINA 02/08/2020 01:59:01 PM EDT [facility] Injectable Medication Administration w/ Monitoring & E ducation Attender: Tricia Pimentel [facility] 02/08/2020 09:30:00 AM EDT - 02/08/2020 09:30:00 AM EDT [facility] ([facility]) Outpatient Attender: Diamante MOLINA 02/08/2020 09: 13:00 AM EDT [facility] Attender: Tricia Pimentel 02/08/2020 12:00:00 AM EDT [facility] ([facility]) Outpatient Attender: Diamante MOLINA 02/03/2020 08: 50:00 AM EDT [facility] Outpatient Attender: SERGIO MOLINA 02/03/2020 08:12:00 AM EDT [facility] Outpatient Attender: SERGIO MOLINA 01/24/2020 03:46:01 PM EDT [facility] Injectable Medication Administration w/ Monitoring & E ducation Attender: Tricia Pimentel [facility] 01/13/2020 11:00:00 AM EDT - 01/13/2020 11:00:00 AM EDT [facility]: Tricia Pimentel 01/13/2020 12:00:00 AM EDT [facility] ([facility]) Attender: Tricia Pimentel 01/13/2020 12:00:00 AM EDT [facility] Injectable Medication Administration w/ Monitoring & E ducation Attender: Tricia Pimentel [facility] 01/06/2020 11:45:00 AM EST - 01/06/2020 11:45:00 AM EST [facility] Outpatient Attender: Dane Mariscal [facility] 0 01/06/2020 11:30:00 AM EST - 01/06/2020 11:30:00 AM EST [facility] ([facility]) Attender: Tricia Pimentel 01/06/2020 12:00:00 AM EST [facility] ([facility]) Attender: Dane Mariscal 01/06/2020 12:00:00 AM EST [facility] ([facility]) Injectable Psychotropic Medication Administration (Inj ection Only) Attender: Jossy Mejia [facility] 12/23/2019 10:30:00 AM EST - 12/23/2019 10:30:00 AM EST [facility] Attender: Jossy Mejia 12/23/2019 12:00:00 AM EST [facility] ([facility]) Outpatient Attender: DO Jake MOLINA 12/14/2019 08:36:00 AM [facility] Outpatient Attender: DO Jake MOLINA 12/12/2019 10:47:00 AM [facility] Outpatient Attender: DO Jake MOLINA 12/12/2019 10:30:01 AM [facility] Outpatient Attender: DO Jake MOLINA 12/12/2019 10:29:00 AM [facility] Outpatient Attender: DO Jake MOLINA 12/12/2019 10:28:00 AM [facility] Injectable Psychotropic Medication Administration (Inj ection Only) Attender: Tricia Pimentel [facility] 12/12/2019 02:00:00 AM EST - 12/12/2019 02:00:00 AM EST [facility] ([facility] Attender: Tricia Pimentel 12/12/2019 12:00:00 AM EST [facility] ([facility]) Attender: Tricia Pimentel 12/12/2019 12:00:00 AM EST [facility] Attender: MARYCRUZ BINGHAM MD 12/10/2019 12:00:29 A [facility] Outpatient Attender: MARYCRUZ BINGHAM MD 12/09/2019 04:40:01 P [facility] Outpatient Attender: MARYCRUZ BINGHAM MD 12/09/2019 04:40:00 P [facility] Outpatient Attender: MARYCRUZ BINGHAM MD 12/09/2019 03:45:02 P [facility] Injectable Medication Administration w/ Monitoring & E ducation Attender: Tricia Pimentel [facility] 12/09/2019 11:30:00 AM EST - 12/09/2019 11:30:00 AM EST [facility] ([facility] Outpatient Attender: MARYCRUZ BINGHAM MD 11/17/2019 11:07:00 A [facility] Injectable Medication Administration w/ Monitoring & E ducation Attender: Tricia Pimentel [facility] 11/04/2019 11:15:00 AM EST - 11/04/2019 11:15:00 AM EST [facility] ([facility]) Attender: Tricia Pimentel 11/04/2019 12:00:00 AM EST [facility] ([facility]) Outpatient Attender: MARYCRUZ BINHGAM MD 10/31/2019 08:59:04 A [facility] Injectable Medication Administration w/ Monitoring & E ducation Attender: Tricia Pimentel [facility] 10/28/2019 11:15:00 AM EST - 10/28/2019 11:15:00 AM EST [facility] ([facility]) Attender: Tricia Pimentel 10/28/2019 12:00:00 AM EST [facility] ([facility]) Outpatient Attender: MARYCRUZ BINGHAM MD 10/25/2019 11:59:00 A [facility] Outpatient Attender: MARYCRUZ BINGHAM MD 10/25/2019 11:58:01 A [facility] Outpatient Attender: MARYCRUZ BINGHAM MD 10/25/2019 11:51:00 A [facility] Outpatient Attender: MARYCRUZ BINGHAM MD 10/25/2019 11:50:00 A M EST [facility] 10/21/2019 02:51:00 PM [facility] Functional Status Medications Medication Brand Name Start Date Product Form Dose Route Admi nistrative Instructions Pharmacy Instructions Status Indications Reaction Description Data Source(s) haloperidol decanoate haloperidol decanoate 10/04/2020 12:00:00 AM EST 100 mg/mL completed [id number] haloperidol decanoate intr amuscularly 10/04/2020 12/27/2020 as directed 21 100 mg/mL solution [id number] Victorino Escobar [id number] Psychiatry [facility] ([facility]) 100 mg/mL 10/02/2020 12:00:00 AM EST solution [...] 09/12/2020 12:00:00 AM EST 100 mg/mL completed [id number] Haldol Decanoate intramuscularly 09/1209/15/2020 as directed 1 100 mg/mL solution [id number] Kalli real [id number] Nurse Practitioner [facility] ([facility]) Trazodone Hydrochloride 50 MG Oral Tablet trazodone 2019 12:00:00 AM EST 50 mg by mouth completed [id number] trazodone by mouth C382 88 09/12/2020 10/12/2020 every night 30 50 mg tablet [id number] [id number] Darien Iglesias [id number] Nurse Practitioner [facility] ([facility]) Trazodone Hydrochloride 50 MG Oral Tablet trazodone 2019 12:00:00 AM EST 50 mg by mouth completed [id number] trazodone by mouth C382 88 09/12/2020 10/12/2020 every night 30 50 mg tablet [id number] [id number] vero Egorho [id number] Nurse Practitioner [facility] 1,064 mg/3.9 mL 04/04/2020 12:00:00 [...] 01/06/2020 12:00:00 AM EST 300 mg completed [id number] quetiapine 01/06/2020 01/05/2021 at bedtime 30 300 mg tablet [id number] [id number] Dane Mariscal [id number] Psychiatric/Mental Health [facility] ([facility]) 819 mg/2.625 mL 01/06/2020 12:00:00 AM EST syringe 2 USE 1 SYRINGE DIRECTED TICKET SORTER YOUR MEDICINE AT THE PHARMACY AND BRING IT TO THE CLINIC FOR YOUR APPOINTMENT USE 1 SYRINGE DIRECTED TICKET SORTER YOUR M EDICINE AT THE PHARMACY AND BRING IT TO THE CLINIC FOR YOUR APPOINTMENT SOLD: 01/12/2020 [facility] quetiapine 300 MG Oral Tablet quetiapine 01/06/2020 12:00:00 AM EST 300 mg completed [id number] quetiapine 01/06/2020 01/05/2021 at bedtime 30 300 mg tablet [id number] [id number] Dane Loida [id number] Psychiatric/Mental Health [facility] ([facility]) quetiapine 300 MG Oral Tablet quetiapine 01/06/2020 12:00:00 AM EST 300 mg completed [id number] quetiapine 01/06/2020 01/05/2021 at bedtime 30 300 mg tablet [id number] Dane Loida [id number] Psychiatric/Mental Health [facility] ([facility]) 819 mg/2.625 mL 01/06/2020 12:00:00 AM EST syringe 2 USE 1 SYRINGE DIRECTED TICKET SORTER YOUR MEDICINE AT THE PHARMACY AND BRING IT TO THE CLINIC FOR YOUR APPOINTMENT USE 1 SYRINGE DIRECTED TICKET SORTER YOUR M EDICINE AT THE PHARMACY AND BRING IT TO THE CLINIC FOR YOUR APPOINTMENT SOLD: 04/08/2020 [facility] Aristada Aristada 12/20/2019 12:00:00 AM EST mg/3.9 completed [id number] Aristada intramuscularly 12/20/2019 09/12/2020 1 ,064 mg/3.9 mL suspension,extended rel syring as directed [id number] [id number] Dane Mariscal [id number] Psychiatric/Mental Health [facility] ([facility]) 156 mg/mL 12/15/2019 12:00:00 AM EST syringe [...] 10/21/2019 12:00:00 AM EST 156 mg/mL completed [id number] Invega Sustenna 10/21/2019 10/22/2019 single dose 1 156 mg/mL syringe [id number] Dane Mariscal [id number] Psychiatric/Mental Health [facility] ([facility]) Trazodone Hydrochloride 50 MG Oral Tablet trazodone 2018 12:00:00 AM EDT 50 mg by mouth completed [id number] trazodone by mouth C382 88 06/10/2019 09/12/2020 at bedtime 50 mg tablet [id number] [id number] [facility] viviana Mariscal [id number] Psychiatric/Mental Health [facility] ([facility]) 2.625 ML paliperidone palmitate 312 MG/ML Prefilled Sy ringe [Invega] Invega Trinza 09/09/2018 12:00:00 AM EST 819 mg/2.625 completed Invega Trinza 09/09/2018 06/04/2020 as directed 180 819 mg/2 .625 mL syringe [id number] Dane Mariscal [id number] Psychiatri c/Mental Health [facility] ([facility]) 2.625 ML paliperidone palmitate 312 MG/ML Prefilled Sy ringe [Invega] Invega Trinza 09/09/2018 12:00:00 AM EST 819 mg/2.625 completed Invega Trinza 09/09/2018 06/04/2020 as directed 180 819 mg/2 .625 mL syringe [id number] Dane Mariscal [id number] Psychiatri c/Mental Health [facility] ([facility]) 2.625 ML paliperidone palmitate 312 MG/ML Prefilled Sy ringe [Invega] Invega Trinza 09/09/2018 12:00:00 AM EST 819 mg/2.625 completed Invega Trinza 09/09/2018 06/04/2020 as directed 180 819 mg/2 .625 mL syringe [id number] Dane Mariscal [id number] Psychiatri c/Mental Health [facility] ([facility]) 2.625 ML paliperidone palmitate 312 MG/ML Prefilled Sy ringe [Invega] Invega Trinza 09/09/2018 12:00:00 AM EST 819 mg/2.625 completed [id number] Invega Trinza 09/09/2018 06/04/2020 as directed 180 819 mg/2 .625 mL syringe [id number] Dane Loida [id number] Psychiatri c/Mental Health [facility] ([facility]) Amantadine Hydrochloride 100 MG Oral Capsule amantadine HCl 07/30/2017 12:00:00 AM EDT 100 mg by mouth completed [id number] amantadine HCl by mouth [id number] 07/30/2017 09/12/2020 every morning 100 mg capsule [id number] Dane Mariscal [id number] Psychiatric/Mental Health [facility] ([facility]) Insurance Providers Payer name Policy type / Coverage type Policy ID Covered constitution party ID Covered constitution party's relationship to shafer Policy Shafer Plan Information [facility] COMMUNITY PLAN [id number] SP [id number] [facility] O [id number] S [id number] [facility] I [id number] Self [id number] [facility] TESS [id number] SP [id number] Medicaid S [id number] S [id number] Managed Care - [facility] Community Plan P [id number] S [id number] Medicaid S [id number] S [id number] [facility] [id number] SP [id number] Managed Care - [facility] Community Plan P [id number] S [id number] Self Pay P UNAVAILABLE S UNAVAILA BLE UHC I [id number] Self [id number] [facility] I [id number] Self [id number] [facility]) O [id number] S [id number] Managed Care - Community Plan [facility] P [id number] S [id number] Medicaid S [id number] S [id number] [facility] TESS [id number] SP [id number] MEDICAID [id number] SP [id number] [facility] COMMUNITY PLAN [facility] [id number] SP [id number] MEDICAID [id number] SP [id number] [facility] OFFICE OF MENTAL HEALTH UNAVAILABLE S UNAVAILABLE MEDICAID [id number] S [id number] [facility] OFFICE OF MENTAL HEALTH [id number] S [id number] [facility] OFFICE OF MENTAL HEALTH [id number] Problems, Conditions, and Diagnoses Code Display Name Description Problem Type Effective Dates Data Source(s) F10.20 Alcohol dependence, uncomplicated Alcohol Use Disorder , Severe Condition 12/06/2020 12:00:00 AM EST [facility] ([facility]) F17.200 Nicotine dependence, unspecified, uncomp licated Tobacco Use Disorder, Moderate Condition 12/06/2020 12:00:00 AM EST [facility] ([facility]) F12.20 Cannabis dependence, uncomplicated Cannabis Use Disorder, Moderate Condition 12/06/2020 12:00:00 AM EST [facility] ([facility]) F20.9 Schizophrenia, unspecified Schizophrenia Condition 12/06/2020 12:00:00 AM EST [facility] ([facility]) 295.32 Chronic paranoid schizophrenia Chronic paranoid schizo phrenia 12/09/2019 04:39:15 PM [facility] R48.0 Dyslexia and alexia Dyslexia AND/OR speech dysfunction 12/09/2019 04:39:15 PM [facility] schizophrenia, hallucinations, substance abuse schizophrenia, hallucinations, substance abuse Diagnosis 09/22/2020 02:27:00 PM [facility] Surgeries/Procedures Procedure Description Date Indications Data Source(s) [facility] [place] E/M Lvl 3--Est pt 12/06/2020 12:00:00 AM EST - 12/06/2020 12:00:00 AM EST [facility] ([facility]) [facility] Telemed E/M Lvl 3--Est pt 12/06/2020 12:00:[address] [facility] ([facility]) Comprehensive medication services, per 15 minutes 11/15/2020 12:00:00 AM EST - 11/15/2020 12:00:00 AM EST [facility] ([facility]) Comprehensive medication services, per 15 minutes 11/15/2020 12:00:00 AM EST [facility] ([facility]) OFFICE OUTPATIENT VISIT 15 MINUTES 11/15 12:00:00 AM EST - 11/15/2020 12:00:00 AM EST [facility] ([facility]) OFFICE OUTPATIENT VISIT 15 MINUTES 11/15/2020 12:00:00 AM EST [facility] ([facility]) THERAPEUTIC PROPHYLACTIC/DX INJECTION SUBQ/IM 10/18/2020 12:00:00 AM EST - 10/18/2020 12:00:00 AM EST [facility] ([facility]) THERAPEUTIC PROPHYLACTIC/DX INJECTION SUBQ/IM 10/18/20 12:00:00 AM EST [facility] ([facility]) THERAPEUTIC PROPHYLACTIC/DX INJECTION SUBQ/IM 10/15/2020 12:00:00 AM EST - 10/15/2020 12:00:00 AM EST [facility] ([facility]) THERAPEUTIC PROPHYLACTIC/DX INJECTION SUBQ/IM 10/15/20 12:00:00 AM EST [facility] ([facility]) THERAPEUTIC PROPHYLACTIC/DX INJECTION SUBQ/IM 10/04/2020 12:00:00 AM EST - 10/04/2020 12:00:00 AM EST [facility] ([facility]) THERAPEUTIC PROPHYLACTIC/DX INJECTION SUBQ/IM 10/04/20 12:00:00 AM EST [facility] ([facility]) OFFICE OUTPATIENT VISIT 15 MINUTES 10/04 12:00:00 AM EST - 10/04/2020 12:00:00 AM EST [facility] ([facility]) OFFICE OUTPATIENT VISIT 15 MINUTES 10/04/2020 12:00:00 AM EST [facility] ([facility]) OFFICE OUTPATIENT VISIT 15 MINUTES 09/12 12:00:00 AM EST - 09/12/2020 12:00:00 AM EST [facility] ([facility]) OFFICE OUTPATIENT VISIT 15 MINUTES 09/12/2020 12:00:00 AM EST [facility] ([facility]) THERAPEUTIC PROPHYLACTIC/DX INJECTION SUBQ/IM 09/12/2020 12:00:00 AM EST - 09/12/2020 12:00:00 AM EST [facility] ([facility]) THERAPEUTIC PROPHYLACTIC/DX INJECTION SUBQ/IM 09/12/20 20 12:00:00 AM EST [facility] ([facility]) OFFICE OUTPATIENT VISIT 15 MINUTES 08/10 12:00:00 AM EDT - 08/10/2020 12:00:00 AM EDT [facility] ([facility]) OFFICE OUTPATIENT VISIT 15 MINUTES 08/10/2020 12:00:00 AM EDT [facility] ([facility]) THERAPEUTIC PROPHYLACTIC/DX INJECTION SUBQ/IM 07/13/2020 12:00:00 AM EDT - 07/13/2020 12:00:00 AM EDT [facility] ([facility]) THERAPEUTIC PROPHYLACTIC/DX INJECTION SUBQ/IM 07/13/20 20 12:00:00 AM EDT [facility] ([facility]) MHC Telemed E/M Lvl 3--Est pt 04/25/2020 12:00:00 AM EDT - 04/25/2020 12:00:00 AM EDT [facility] ([facility]) MHC Telemed E/M Lvl 3--Est pt 04/25/2020 12:00:00 AM E DT [facility] ([facility]) Comprehensive medication services, per 15 minutes 04/20/2020 12:00:00 AM EDT - 04/20/2020 12:00:00 AM EDT [facility] ([facility]) Comprehensive medication services, per 15 minutes 04/20/2020 12:00:00 AM EDT [facility] ([facility]) Comprehensive medication services, per 15 minutes 04/20/2020 12:00:00 AM EDT - 04/20/2020 12:00:00 AM EDT [facility] ([facility]) Comprehensive medication services, per 15 minutes 04/20/2020 12:00:00 AM EDT [facility] ([facility]) Comprehensive medication services, per 15 minutes 04/11/2020 12:00:00 AM EDT - 04/11/2020 12:00:00 AM EDT [facility] ([facility]) Comprehensive medication services, per 15 minutes 04/11/2020 12:00:00 AM EDT [facility] ([facility]) Comprehensive medication services, per 15 minutes 04/06/2020 12:00:00 AM EDT - 04/06/2020 12:00:00 AM EDT [facility] ([facility]) Comprehensive medication services, per 15 minutes 04/06/2020 12:00:00 AM EDT [facility] ([facility]) MHC Telemed E/M Lvl 3--Est pt 04/03/2020 12:00:00 AM EDT - 04/03/2020 12:00:00 AM EDT [facility] ([facility]) MHC Telemed E/M Lvl 3--Est pt 04/03/2020 12:00:00 AM E DT [facility] ([facility]) Comprehensive medication services, per 15 minutes 04/02/2020 12:00:00 AM EDT - 04/02/2020 12:00:00 AM EDT [facility] ([facility]) Comprehensive medication services, per 15 minutes 04/02/2020 12:00:00 AM EDT [facility] ([facility]) TEMPMHCTelemed 20" psychotherapy 020 12:00:00 AM EDT - 02/24/2020 12:00:00 AM EDT [facility] ([facility]) TEMPMHCTelemed 20" psychotherapy 02/24/2020 12:00:00 A M EDT [facility] ([facility]) Comprehensive medication services, per 15 minutes 02/13/2020 12:00:00 AM EDT - 02/13/2020 12:00:00 AM EDT [facility] ([facility]) Comprehensive medication services, per 15 minutes 02/13/2020 12:00:00 AM EDT [facility] ([facility]) Comprehensive medication services, per 15 minutes 02/08/2020 12:00:00 AM EDT - 02/08/2020 12:00:00 AM EDT [facility] ([facility]) Comprehensive medication services, per 15 minutes 02/08/2020 12:00:00 AM EDT [facility] ([facility]) Comprehensive medication services, per 15 minutes 01/13/2020 12:00:00 AM EDT - 01/13/2020 12:00:00 AM EDT [facility] ([facility]) Comprehensive medication services, per 15 minutes 01/13/2020 12:00:00 AM EDT [facility] ([facility]) Comprehensive medication services, per 15 minutes 01/13/2020 12:00:00 AM EDT - 01/13/2020 12:00:00 AM EDT [facility] ([facility]) Comprehensive medication services, per 15 minutes 01/06/2020 12:00:00 AM EST - 01/06/2020 12:00:00 AM EST [facility] ([facility]) Comprehensive medication services, per 15 minutes 01/06/2020 12:00:00 AM EST [facility] ([facility]) OFFICE OUTPATIENT VISIT 10 MINUTES 01/05 12:00:00 AM EST - 01/06/2020 12:00:00 AM EST [facility] ([facility]) OFFICE OUTPATIENT VISIT 10 MINUTES 01/06/2020 12:00:00 AM EST [facility] ([facility]) THERAPEUTIC PROPHYLACTIC/DX INJECTION SUBQ/IM 12/23/2019 12:00:00 AM EST - 12/23/2019 12:00:00 AM EST [facility] ([facility]) THERAPEUTIC PROPHYLACTIC/DX INJECTION SUBQ/IM 12/23/19 20 12:00:00 AM EST [facility] ([facility]) THERAPEUTIC PROPHYLACTIC/DX INJECTION SUBQ/IM 12/12/2019 12:00:00 AM EST - 12/12/2019 12:00:00 AM EST [facility] ([facility]) THERAPEUTIC PROPHYLACTIC/DX INJECTION SUBQ/IM 12/12/19 20 12:00:00 AM EST [facility] ([facility]) Comprehensive medication services, per 15 minutes 12/12/2019 12:00:00 AM EST - 12/12/2019 12:00:00 AM EST [facility] ([facility]) Comprehensive medication services, per 15 minutes 12/09/2019 12:00:00 AM EST [facility] ([facility]) Comprehensive medication services, per 15 minutes 11/04/2019 12:00:00 AM EST - 11/04/2019 12:00:00 AM EST [facility] ([facility]) Comprehensive medication services, per 15 minutes 11/04/2019 12:00:00 AM EST [facility] ([facility]) Comprehensive medication services, per 15 minutes 10/28/2019 12:00:00 AM EST - 10/28/2019 12:00:00 AM EST [facility] ([facility]) Comprehensive medication services, per 15 minutes 10/28/2019 12:00:00 AM EST [facility] ([facility]) Results ID Date Data Source [id number] 10/17/2020 12:19:00 AM EST [facility] Name Value Range Interpretation Code Description Data Michelle rce(s) Supporting Document(s) SARS coronavirus 2 RNA [Presence] in Res piratory specimen by OMI with probe detection [facility] This lab was ordered by [facility] a nd reported by [facility]. ID Date Data Source [id number] 02/20/2020 07:40:00 PM EDT [facility] Name Value Range Interpretation Code Description Data Michelle rce(s) Supporting Document(s) SARS CORONAVIRUS 2 RNA [facility] This lab was ordered by [facility] and reported by [facility]. 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) (OMR11-F31.89)Routine general medical examination (over 18) (ICD-V70.0) (JNU92-D90.00)Current Medications: INVEGA SUSTENNA 156 MG/ML INTRAMUSCULAR SUSPENSION [...] CDT Code - Description[E] Mi ssing - [place] Only/Root Tip On #30 Surface O Region [...] rce(s) Supporting Document(s) ID Date Data Source [id number] 12/09/2019 03:43:52 PM [facility] Measurements & CalculationsHeight: 68 inches 172.72 [...] 09, 2019 3:53 PMInitial [facility]Infectious Disease- Travel Have [...] EnglishFamily and Home Address: [address] [place] [address] What is your housing situation today? I have h ousing Are you worried about losing your housing? NoMoney and Resources Employed? NoIn the past year, have you or any family members you live with been unable to get any of the following when it was really needed? Denies Insecurity: food, utilities, clothing, early childhood worker, phone, legal services, otherIn the past [...] Disorderschizoid affective disorderSurgical History:UnremarkableFamily History:DeceasedSocial/Personal History[place] 1 daughter. Alcohol Use - noDrug Use - noHIV/High Risk - noRegular Exercise - yesSmoking History:Patient is a former smoker. Smoking Status: current every day smokerChief ComplaintRe establishing care History of Present Illness (HPI)I, Hali Pak MA, am scribing for and in the presence of, Sb Hernandez is here today with his pull over, Anita. Has requested that we contact her [...] bar. He was recently just admitted into [facility] on 11/09/2019, he went into the ER for chest pain. Patient often feels like he is being watched within his home, and when he gets home there are people that pop up in his house. He lives with his little brother & mother. He does sleep with a light on so he can be more alert. 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 he is unable to [...] during this visit, including review of any [id number] medications, herbal therapies, and/or supplements.Allergy ReviewAllergy List [...] Problems:Added: Dyslexia AND/OR speech dysfunction (ICD- 784.61) (WDV47-H92.0)Chronic paranoid schizophrenia (ICD-295.32) (ICD10- F20.0)Assessment not SavedChronic paranoid schizophrenia (SOP71-S97.0): Pt to be referred for a controlled [...] POLLEN (Critical)* NKDA (Critical)* PERFUMES (Critical)Orders:Other Referral [677801] Adult - [facility] Vst, NEW, Level IV [CPT- 81545] Follow-Up symptom management Name Value Range Interpretation Code Description Data Michelle rce(s) Supporting Document(s) Procedure Social History Code Duration Value Status Description Data Source(s ) Smoking 12/06/2020 12:00:00 AM EST Unknown if ever smoked comp leted Unknown if ever smoked [facility] ([facility]) Smoking 11/15/2020 12:00:00 AM EST Unknown if ever smoked comp leted Unknown if ever smoked [facility] ([facility]) Smoking 10/18/2020 12:00:00 AM EST Unknown if ever smoked comp leted Unknown if ever smoked [facility] ([facility]) Smoking 10/15/2020 12:00:00 AM EST Unknown if ever smoked comp leted Unknown if ever smoked [facility] ([facility]) Smoking 10/04/2020 12:00:00 AM EST Unknown if ever smoked comp leted Unknown if ever smoked [facility] ([facility]) Smoking 09/12/2020 12:00:00 AM EST Unknown if ever smoked comp leted Unknown if ever smoked [facility] ([facility]) Smoking 08/10/2020 12:00:00 AM EDT Unknown if ever smoked comp leted Unknown if ever smoked [facility] ([facility]) Smoking 07/13/2020 12:00:00 AM EDT Unknown if ever smoked comp leted Unknown if ever smoked [facility] ([facility]) Smoking 04/25/2020 12:00:00 AM EDT Unknown if ever smoked comp leted Unknown if ever smoked [facility] ([facility]) Smoking 04/20/2020 12:00:00 AM EDT Unknown if ever smoked comp leted Unknown if ever smoked [facility] ([facility]) Smoking 04/11/2020 12:00:00 AM EDT Unknown if ever smoked comp leted Unknown if ever smoked [facility] ([facility]) Smoking 04/06/2020 12:00:00 AM EDT Unknown if ever smoked comp leted Unknown if ever smoked [facility] ([facility]) Smoking 04/03/2020 12:00:00 AM EDT Unknown if ever smoked comp leted Unknown if ever smoked [facility] ([facility]) Smoking 04/02/2020 12:00:00 AM EDT Unknown if ever smoked comp leted Unknown if ever smoked [facility] ([facility]) Smoking 02/24/2020 12:00:00 AM EDT Unknown if ever smoked comp leted Unknown if ever smoked [facility] ([facility]) Smoking 02/13/2020 12:00:00 AM EDT Unknown if ever smoked comp leted Unknown if ever smoked [facility] ([facility]) Smoking 02/08/2020 12:00:00 AM EDT Unknown if ever smoked comp leted Unknown if ever smoked [facility] ([facility]) Smoking 01/13/2020 12:00:00 AM EDT Unknown if ever smoked comp leted Unknown if ever smoked [facility] ([facility]) Smoking 01/06/2020 12:00:00 AM EST Unknown if ever smoked comp leted Unknown if ever smoked [facility] ([facility]) Smoking 12/23/2019 12:00:00 AM EST Unknown if ever smoked comp leted Unknown if ever smoked [facility] ([facility]) Smoking 12/12/2019 12:00:00 AM EST Unknown if ever smoked comp leted Unknown if ever smoked [facility] ([facility]) Smoking 11/04/2019 12:00:00 AM EST Unknown if ever smoked comp leted Unknown if ever smoked [facility] ([facility]) Smoking 10/28/2019 12:00:00 AM EST Unknown if ever smoked comp leted Unknown if ever smoked [facility] ([facility]) Vital Signs ID Date Data Source UNK Name Value Range Interpretation Code Description Data Source(s) Diastolic blood pressure 0 mm[Hg] Normal (applies to non-numeric results) 0 mm[Hg] [facility] ([facility]) Systolic blood pressure 0 mm[Hg] Normal (applies t o non-numeric results) 0 mm[Hg] [facility] ([facility]) Body mass index (BMI) [Ratio] 0.00 kg/m2 No rmal (applies to non-numeric results) 0.00 kg/m2 [facility] ([facility]) Body weight Measured 0.00 lbs Normal (applies to n on-numeric results) 0.00 lbs [facility] ([facility]) Body height 0.00 in Normal (applies to non-numeric resu lts) 0.00 in [facility] ([facility]) Diastolic blood pressure 0 mm[Hg] Normal (applies to non-numeric results) 0 mm[Hg] [facility] ([facility]) Systolic blood pressure 0 mm[Hg] Normal (applies t o non-numeric results) 0 mm[Hg] [facility] ([facility]) Body mass index (BMI) [Ratio] 0.00 kg/m2 No rmal (applies to non-numeric results) 0.00 kg/m2 [facility] ([facility]) Body weight Measured 0.00 lbs Normal (applies to n on-numeric results) 0.00 lbs [facility] ([facility]) Body height 0.00 in Normal (applies to non-numeric resu lts) 0.00 in [facility] ([facility]) Diastolic blood pressure 0 mm[Hg] Normal (applies to non-numeric results) 0 mm[Hg] [facility] ([facility]) Systolic blood pressure 0 mm[Hg] Normal (applies t o non-numeric results) 0 mm[Hg] [facility] ([facility]) Body mass index (BMI) [Ratio] 0.00 kg/m2 No rmal (applies to non-numeric results) 0.00 kg/m2 [facility] ([facility]) Body weight Measured 0.00 lbs Normal (applies to n on-numeric results) 0.00 lbs [facility] ([facility]) Body height 0.00 in Normal (applies to non-numeric resu lts) 0.00 in [facility] ([facility]) Diastolic blood pressure 0 mm[Hg] Normal (applies to non-numeric results) 0 mm[Hg] [facility] ([facility]) Systolic blood pressure 0 mm[Hg] Normal (applies t o non-numeric results) 0 mm[Hg] [facility] ([facility]) Body mass index (BMI) [Ratio] 0.00 kg/m2 No rmal (applies to non-numeric results) 0.00 kg/m2 [facility] ([facility]) Body weight Measured 0.00 lbs Normal (applies to n on-numeric results) 0.00 lbs [facility] ([facility]) Body height 0.00 in Normal (applies to non-numeric resu lts) 0.00 in [facility] ([facility]) Diastolic blood pressure 0 mm[Hg] Normal (applies to non-numeric results) 0 mm[Hg] [facility] ([facility]) Systolic blood pressure 0 mm[Hg] Normal (applies t o non-numeric results) 0 mm[Hg] [facility] ([facility]) Body mass index (BMI) [Ratio] 0.00 kg/m2 No rmal (applies to non-numeric results) 0.00 kg/m2 [facility] ([facility]) Body weight Measured 0.00 lbs Normal (applies to n on-numeric results) 0.00 lbs [facility] ([facility]) Body height 0.00 in Normal (applies to non-numeric resu lts) 0.00 in [facility] ([facility]) ID Date Data Source [id number] 09/22/2020 02:27:59 PM [facility] Name Value Range Interpretation Code Description Data Source(s) [facility]
[2020-12-20 09:15] LABS: HEMATOCRIT 46.3 % (42.0-52.0); HEMOGLOBIN 14.6 g/dl (13.5-17.5); MEAN CORPUSCULAR HEMOGLOBIN 28.6 pg (27.0-33.0); MEAN CORPUSCULAR HGB CONC 31.5 g/dl (32.0-36.5); MEAN CORPUSCULAR VOLUME 90.8 fl (80.0-96.0); PLATELET COUNT, AUTOMATED 296 10^3/uL (150-450); WHITE BLOOD COUNT 10.4 10^3/uL (4.0-10.0)
[2020-12-20 09:40] LABS: ACETAMINOPHEN LEVEL < 2.0 UG/ML (10.0-30.0); ALBUMIN 3.3 GM/DL (3.2-5.2); ALT/SGPT 29 U/L (12-78); BILIRUBIN,DIRECT < 0.1 MG/DL (0.0-0.2); BILIRUBIN,TOTAL 0.3 MG/DL (0.2-1.0); BLOOD UREA NITROGEN 19 MG/DL (7-18); CALCIUM LEVEL 8.8 MG/DL (8.5-10.1); CARBON DIOXIDE LEVEL 30 MEQ/L (21-32); CHLORIDE LEVEL 105 MEQ/L (98-107); ETHYL ALCOHOL (ETHANOL) < 0.003 % (0.000-0.010); GLOMERULAR FILTRATION RATE > 60.0 (>60); GLUCOSE, FASTING 121 MG/DL (70-100); POTASSIUM SERUM 4.5 MEQ/L (3.5-5.1); SALICYLATE LEVEL < 1.7 MG/DL (5.0-30.0); SODIUM LEVEL 140 MEQ/L (136-145); THYROID STIMULATING HORMONE 0.394 uIU/ML (0.358-3.740); TOTAL PROTEIN 6.8 GM/DL (6.4-8.2)
[2020-12-20 11:40] LABS: AMPHETAMINES LEVEL URINE NEGATIVE (NEGATIVE); BARBITURATES URINE NEGATIVE (NEGATIVE); BENZODIAZEPINES URINE NEGATIVE (NEGATIVE); CANNABINOIDS URINE NEGATIVE (NEGATIVE); COCAINE METABOLITE URINE POSITIVE (NEGATIVE); METHADONE URINE NEGATIVE (NEGATIVE); OPIATES URINE NEGATIVE (NEGATIVE); PHENCYCLIDINE URINE NEGATIVE (NEGATIVE)
[2020-12-20 13:41] VITALS: BP 129/81
== END 2020-12-20 13:43 | disposition home or self-care (01) ==
LOC: M ED 07:41
DX: F43.0 Acute stress reaction (principal); I10 Essential (primary) hypertension; F20.9 Schizophrenia, unspecified; F19.10 Other psychoactive substance abuse, uncomplicated; F17.200 Nicotine dependence, unspecified, uncomplicated

== ENCOUNTER 2021-01-22 21:04 | Inpatient (IN) | payer MEDICAID, OTHER ==
[~2021-01-22] VITALS: Ht 175.3 cm; Wt 68.2 kg
[2021-01-22 23:03] LABS: HEMATOCRIT 41.1 % (42.0-52.0); HEMOGLOBIN 13.4 g/dl (13.5-17.5); MEAN CORPUSCULAR HEMOGLOBIN 28.9 pg (27.0-33.0); MEAN CORPUSCULAR HGB CONC 32.6 g/dl (32.0-36.5); MEAN CORPUSCULAR VOLUME 88.8 fl (80.0-96.0); PLATELET COUNT, AUTOMATED 289 10^3/uL (150-450); RED BLOOD COUNT 4.63 10^6/uL (4.30-6.10); WHITE BLOOD COUNT 9.5 10^3/uL (4.0-10.0)
[2021-01-22 23:25] LABS: AMPHETAMINES LEVEL URINE NEGATIVE (NEGATIVE); BARBITURATES URINE NEGATIVE (NEGATIVE); BENZODIAZEPINES URINE NEGATIVE (NEGATIVE); CANNABINOIDS URINE POSITIVE (NEGATIVE); COCAINE METABOLITE URINE NEGATIVE (NEGATIVE); METHADONE URINE NEGATIVE (NEGATIVE); OPIATES URINE NEGATIVE (NEGATIVE); PHENCYCLIDINE URINE NEGATIVE (NEGATIVE)
[2021-01-22 23:34] LABS: ACETAMINOPHEN LEVEL < 2.0 UG/ML (10.0-30.0); ALBUMIN 3.3 GM/DL (3.2-5.2); ALT/SGPT 53 U/L (12-78); BILIRUBIN,DIRECT 0.1 MG/DL (0.0-0.2); BILIRUBIN,TOTAL 0.3 MG/DL (0.2-1.0); BLOOD UREA NITROGEN 16 MG/DL (7-18); CALCIUM LEVEL 8.6 MG/DL (8.5-10.1); CARBON DIOXIDE LEVEL 27 MEQ/L (21-32); CHLORIDE LEVEL 108 MEQ/L (98-107); CREATININE FOR GFR 0.87 MG/DL (0.70-1.30); ETHYL ALCOHOL (ETHANOL) < 0.003 % (0.000-0.010); GLOMERULAR FILTRATION RATE > 60.0 (>60); GLUCOSE, FASTING 92 MG/DL (70-100); POTASSIUM SERUM 4.1 MEQ/L (3.5-5.1); SALICYLATE LEVEL 2.3 MG/DL (5.0-30.0); SODIUM LEVEL 142 MEQ/L (136-145); THYROID STIMULATING HORMONE 0.882 uIU/ML (0.358-3.740); TOTAL PROTEIN 6.4 GM/DL (6.4-8.2)
[2021-01-23 02:08] LABS: RSV AMPLIFICATION NEGATIVE (NEGATIVE)
[2021-01-23] MEDS ORDERED: MOM 30ML SUSPENSION UDC PO PRN (02:40)
[2021-01-23] MEDS ORDERED: MAALOX 30 ML SUSP *UDC PO PRN (02:40)
[2021-01-23] MEDS ORDERED: traZODone 50 MG TAB PO PRN (02:40)
[2021-01-23 04:15] VITALS: BP 115/79
[2021-01-23] MEDS: NICOTINE 21MG/24HR 1 EA TRANSDERMAL TD SCH (09:00)
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
--- NOTE | 2021-01-23 12:52 | HPEPDOC ---
[facility] Medical History & Physical Date of Admission Jan 22, 2021 Date of Service: Jan 23, 2021 History and Physical Chief complaint: Presented to the ER with suicidal ideation History of present illness: Patient is a 40-year-old male with no significant past medical history who p resented to the emergency room after noting suicidal ideation. Patient was admitted to the inpatient mental health unit under the care of psychiatry. Hospitalist service was consulted for medical screening evaluation. Patient currently denies any headache, nausea, vomiting, chest pain, shortness of breath, palpitations, abdominal pain consultation, diarrhea, or discomfort with urination. He has not experience any recent fevers or chills. Reports his appetite is fairly normal and denies any changes in his weight. Past Medical History: Denies any PMHx Past Surgical History: Denies any prior surgeries Allergies: See below Medications: See below Family History: - No history of malignancies Social History: - Denies the use of alcohol, tobacco or illicit drugs - Denies recent travel or sick contacts Review of Systems: 10 point review of systems complete, all negative otherwise stated in HPI Physical exam: - Vitals: BP [115/79], HR [66], RR [16], Sat [100%RA], Temp [97.9F] - General: Sitting up in chair, Speaking in full sentences, AAOx3 - HEENT: NC, AT, PERRLA - CVS: RRR, +S1S2 - Lungs: Fair air entry bilaterally, No appreciable wheezing / rales / rhonchi - Abdomen: Soft, Non-distended, Non-tender - Extremities: No lower extremity edema, No calf tenderness - Neuro: No focal motor or sensory deficit - Skin: No visible rashes Labs: See below Imaging: See below EKG: See below Assessment and Plan: Suicidal ideation - Patient has been admitted to the inpatient mental health unit under the care of psychiatry - Currently being managed by psychiatry No significant past medical history DVT prophylaxis - Will c/w early ambulation Female mutuel teller was present throughout the duration of this history and physical examination Thank you for this consultation. Hospitalist service will now sign off. Please reconsult as needed Vital Signs Vital Signs Date Time Temp Pulse Resp B/P (MAP) Pulse Ox O2 Delivery O2 Flow Rate FiO2 01/23/21 08:30 Room Air 01/23/21 04:15 97.9 66 16 115/79 (91) 100 Laboratory Data Labs 24H Laboratory Tests 2 01/22/21 22:43: Nucleated Red Blood Cells % (auto) 0.0, Anion Gap 7L, Glomerular Filtration Rate > 60.0, Calcium Level 8.6, Total Bilirubin 0.3, Direct Bilirubin 0.1, Aspartate Amino Transf (AST/SGOT) 51H, Alanine Aminotransferase (ALT/SGPT) 53, Alkaline Phosphatase 57, Total Protein 6.4, Albumin 3.3, Albumin/Globulin Ratio 1.1, Thyroid Stimulating Hormone (TSH) 0.882, Salicylates Level 2.3L, Urine Opiates Screen NEGATIVE, Urine Methadone Screen NEGATIVE, Acetaminophen Level < 2.0L, Urine Barbiturates Screen NEGATIVE, Urine Phencyclidine Screen NEGATIVE, Urine Amphetamines Screen NEGATIVE, Urine Benzodiazepines Screen NEGATIVE, Urine Cocaine Metabolite Screen NEGATIVE, Urine Cannabinoids Screen POSITIVEH, Ethyl Alcohol Level < 0.003 01/23/21 01:03: Coronavirus (COVID-19)(PCR) NEGATIVE, Influenza Type A (RT-PCR) NEGATIVE, Influenza Type B (RT-PCR) NEGATIVE, Respiratory Syncytial Virus (PCR) NEGATIVE CBC/BMP Laboratory Tests 01/22/21 22:43 Home Medications No Active Prescriptions or Reported Meds Allergies Coded Allergies: PERFUMES (Verified Allergy, Unknown, 09/22/20) SANTANA FRANCOIS MD Jan 23, 2021 12:52
[2021-01-23 17:16] VITALS: BP 108/64
[2021-01-23] MEDS: OLANZapine 5 MG TAB PO SCH (21:00)
[2021-01-23] MEDS ORDERED: OLANZapine ORAL DISINTEGRATING TAB 5MG PO PRN (22:30)
[2021-01-24 06:48] VITALS: BP 131/73
[2021-01-24] MEDS: OLANZapine 5 MG TAB PO SCH ×2 (09:00→21:40)
[2021-01-24] MEDS: NICOTINE 21MG/24HR 1 EA TRANSDERMAL TD SCH (09:00)
--- NOTE | 2021-01-24 14:12 | MHIPNPDOC ---
[facility] Progress Note Progress Note DATE OF SERVICE: 01/24/21 HISTORY: Patient is a 40 -year-old single, disabled domiciled, , male, who had told the all round butcher that he had suicidal thoughts and then later recanted. He presents with internal stimuli, responding to them and not acknowledging why he is here. He stated that he wanted to see a sealing and canceling machine operator. It was difficult to ascertain what the patient is saying because he is whispering in the interview. He refused to answer questions and stated that he would not answer any questions until he had a sealing and canceling machine operator with him. Patient is well known to this facility. He has greater than 6 psychiatric admissions. He is had psychiatric admissions since age 16, diagnosed with schizophrenia, paranoid type. His last admission was in June 2020, in which he was reporting depression and suicidal ideation to hang himself PER ED REPORT: Pt self-presented to the ED & told the RN that he was having SI with no plan. Pt told Dr. Lees that he was not suicidal. When Dr. Lees asked him if he told the RN that he was suicidal he initially said "yes" but then later stated that he never told anyone that he was suicidal. Pt told Dr. Lees that he is having AH, but they are not command type. Per Dr. Lees, pt appears to be internally preoccupied & his thought process is disorganized. Pt is unkempt & malodorous. TW attempted to assess pt. Pt asked "How many times do I have to answer these questions? I already talked to the psych doctor." TW explained that he had spoken to the ED MD, not the psychiatrist, & he stated "I talked to someone on the phone." TW informed him that he had spoken to someone from registration & he stated "I am not answering any more questions until I talk to a sealing and canceling machine operator." Pt has a hx of one suicide attempt several years ago via cutting. He does not have a hx of self-harm. Pt has a long hx of schizophrenia with multiple admissions. He has OP tx at [facility], but it is unknown whether or not he has been compliant. Pt has a hx of abusing alcohol, MJ, quan, & crack cocaine. His tox screen was positive for cannabis. VITAL SIGNS: See below. CURRENT MEDICATIONS: See below. MENTAL STATUS EXAMINATION: Patient is a 40 -year-old single, disabled domiciled, , male, who had told the all round butcher that he had suicidal thoughts and then later reca nted. He presents with internal stimuli, responding to them and not acknowledging why he is here. He is a familiar patient to this facility and will bring himself in when he has significant psychotic symptoms which he is exhibiting; delusions, responding to internal stimuli, paranoid, agitation and irritability Speech: whispering, talking to self, impoverished when answering questions Language skills are intact but diminished Thought processes including: disorganized, loose associations, scattered Thought content: he is delusional and paranoid Abstract reasoning, and computation: impaired Description of associations: says he will only speak with a sealing and canceling machine operator present Description of abnormal or psychotic thoughts: responding to internal stimuli Judgment: impaired Insight: impaired Orientation: alert and oriented to self Recent and remote memory: poor historian Attention span and concentration: poor Language: diminished Fund of knowledge: less than average, patient is intellectually disabled Mood: irritable. Affect: paranoid DIAGNOSES: Schizophrenia, paranoid type Stimulant use disorder, Alcohol use disorder. Cannabis use disorder, Nicotine use disorder ASSESSMENT: Patient remains delusional and paranoid, responding to internal stimuli, he is isolative, withdrawn, very irritable/mildly agitated in his demeanor and is observed with psychomotor agitation at times. Attempted twice to him. The patient, he is dismissive and or too paranoid to speak with this provider. MANAGEMENT PLAN: Continue to offer medications, patient at this time is refusing all medications, in the past he has taken Aristada, long acting injectable. It is unclear how long he has not had this medication. We will contact community clinic in order to determine if he needs this injectable during this admission TIME SPENT: 15 minutes. Vital Signs Vital Signs Date Time Temp Pulse Resp B/P (MAP) Pulse Ox O2 Delivery O2 Flow Rate FiO2 01/24/21 06:48 98.4 70 18 131/73 (92) 100 Room Air Current Medications Current Medications Medications (Trade) Dose Ordered Sig/Simone Route PRN Reason Start Time Stop Time Status Last Admin Dose Admin Acetaminophen (Tylenol Tab) 650 mg Q6HP PRN PO HEADACHE or DISCOMFORT 01/23/21 02:40 Al Hydrox/Mg Hydrox/Simethicone (Mylanta) 30 ml Q4HP PRN PO HEARTBURN/INDIGESTION 01/23/21 02:40 Home Med (Med Rec Complete!) ASDIRECTED XX 01/23/21 01:15 01/23/21 01:13 DC Magnesium Hydroxide (Milk Of Magnesia) 30 ml DAILYPRN PRN PO CONSTIPATION 01/23/21 02:40 Nicotine (Nicoderm Cq 21mg) 1 patch DAILY TD 01/23/21 09:00 Olanzapine (ZyPREXA ZYDIS) 5 mg Q6HP PRN PO ANXIETY/AGITATION 01/23/21 22:30 Olanzapine (ZyPREXA) 5 mg BID PO 01/23/21 21:00 Trazodone HCl (Desyrel) 50 mg QHSP PRN PO INSOMNIA 01/23/21 02:40 Allergies Coded Allergies: PERFUMES (Verified Allergy, Unknown, 09/22/20) KRYSTIN IRWIN NP Jan 24, 2021 14:09
[2021-01-24 18:28] VITALS: BP 118/78
[2021-01-25] MEDS: NICOTINE 21MG/24HR 1 EA TRANSDERMAL TD SCH (09:00)
[2021-01-25] MEDS ORDERED: haloperidoL 5 MG TAB PO PRN (15:25)
--- NOTE | 2021-01-25 15:30 | MHIPNPDOC ---
[facility] Progress Note Progress Note DATE OF SERVICE: 01/25/21 HISTORY: Patient is a 40 -year-old single, disabled domiciled, , male, who had told the cleat layer that he had suicidal thoughts and then later recanted. He presents with internal stimuli, responding to them and not acknowledging why he is here. He stated that he wanted to see a trial lawyer. It was difficult to ascertain what the patient is saying because he is whispering in the interview. He refused to answer questions and stated that he would not answer any questions until he had a trial lawyer with him. Patient is well known to this facility. He has greater than 6 psychiatric admissions. He is had psychiatric admissions since age 16, diagnosed with schizophrenia, paranoid type. His last admission was in June 2020, in which he was reporting depression and suicidal ideation to hang himself PER ED REPORT: Pt self-presented to the ED & told the RN that he was having SI with no plan. Pt told Dr. Lees that he was not suicidal. When Dr. Lees asked him if he told the RN that he was suicidal he initially said "yes" but then later stated that he never told anyone that he was suicidal. Pt told Dr. Lees that he is having AH, but they are not command type. Per Dr. Lees, pt appears to be internally preoccupied & his thought process is disorganized. Pt is unkempt & malodorous. TW attempted to assess pt. Pt asked "How many times do I have to answer these questions? I already talked to the psych doctor." TW explained that he had spoken to the ED MD, not the psychiatrist, & he stated "I talked to someone on the phone." TW informed him that he had spoken to someone from registration & he stated "I am not answering any more questions until I talk to a trial lawyer." Pt has a hx of one suicide attempt several years ago via cutting. He does not have a hx of self-harm. Pt has a long hx of schizophrenia with multiple admissions. He has OP tx at [facility], but it is unknown whether or not he has been compliant. Pt has a hx of abusing alcohol, MJ, quan, & crack cocaine. His tox screen was positive for cannabis. VITAL SIGNS: See below. CURRENT MEDICATIONS: See below. MENTAL STATUS EXAMINATION: Patient is a 40 -year-old single, disabled domiciled, , male, who had told the cleat layer that he had suicidal thoughts and then later reca nted. He presents with internal stimuli, responding to them and not acknowledging why he is here. He is a familiar patient to this facility and will bring himself in when he has significant psychotic symptoms which he is exhibiting; delusions, responding to internal stimuli, paranoid, agitation and irritability Speech: Language skills are intact Thought processes including: disorganized, loose associations, scattered Thought content: he is delusional and paranoid Abstract reasoning, and computation: impaired Description of associations: Description of abnormal or psychotic thoughts: responding to internal stimuli Judgment: impaired Insight: impaired Orientation: alert and oriented to self Recent and remote memory: poor historian Attention span and concentration: poor Language: diminished Fund of knowledge: less than average, patient is intellectually disabled Mood: euthymic. Affect: euphoric at times DIAGNOSES: Schizophrenia, paranoid type Stimulant use disorder, Alcohol use disorder. Cannabis use disorder, Nicotine use disorder ASSESSMENT: Pt is less paranoid today, was pleasant in the interview. MANAGEMENT PLAN: Continue to offer medications, discontinued Zyprexa patient states that Risperdal helps him stay calm, will start Risperdal and patient is agreeable to Long Acting Injectable. Received information that patient has been taking Haldol Decanoate. He had not had Haldol Dec as he was no show to his appointment. Patient is agreeable to starting medication and getting a long a cting IM. He was nonsensical in the interview. Patient is intellectually disabled and attempts to intellectualize in the interview. He is writing words on a piece of paper but it does not make sense but he states "Mood Stabilizers are insides, That's what you think I need." Patient will improve if he continues to take his medications. Patient will initially take a bit to start taking his medication but once he starts he improves quickly. TIME SPENT: 15 minutes. Vital Signs Vital Signs Vital Signs Date Time Temp Pulse Resp B/P (MAP) Pulse Ox O2 Delivery O2 Flow Rate FiO2 01/24/21 18:28 97.9 67 12 118/78 (91) 01/24/21 06:48 100 Room Air Current Medications Current Medications Medications (Trade) Dose Ordered Sig/Simone Route PRN Reason Start Time Stop Time Status Last Admin Dose Admin Acetaminophen (Tylenol Tab) 650 mg Q6HP PRN PO HEADACHE or DISCOMFORT 01/23/21 02:40 Al Hydrox/Mg Hydrox/Simethicone (Mylanta) 30 ml Q4HP PRN PO HEARTBURN/INDIGESTION 01/23/21 02:40 Home Med (Med Rec Complete!) ASDIRECTED XX 01/23/21 01:15 01/23/21 01:13 DC Magnesium Hydroxide (Milk Of Magnesia) 30 ml DAILYPRN PRN PO CONSTIPATION 01/23/21 02:40 Nicotine (Nicoderm Cq 21mg) 1 patch DAILY TD 01/23/21 09:00 Olanzapine (ZyPREXA ZYDIS) 5 mg Q6HP PRN PO ANXIETY/AGITATION 01/23/21 22:30 Olanzapine (ZyPREXA) 5 mg BID PO 01/23/21 21:00 01/25/21 08:57 DC 01/24/21 21:40 Risperidone (RisperDAL) 3 mg BID PO 01/25/21 21:00 Trazodone HCl (Desyrel) 50 mg QHSP PRN PO INSOMNIA 01/23/21 02:40 Allergies Coded Allergies: PERFUMES (Verified Allergy, Unknown, 09/22/20) KRYSTIN IRWIN NP Jan 25, 2021 10:55
[2021-01-25 16:46] VITALS: BP 139/70
[2021-01-25] MEDS ORDERED: risperiDONE 3 MG TAB PO SCH (21:00)
[2021-01-26 06:48] VITALS: BP 134/69
[2021-01-26] MEDS: NICOTINE 21MG/24HR 1 EA TRANSDERMAL TD SCH (09:00)
[2021-01-26] MEDS: BENZTROPINE 0.5 MG TAB PO SCH ×2 (11:57→21:00)
[2021-01-26 18:35] VITALS: BP 130/65
[2021-01-27] MEDS: BENZTROPINE 0.5 MG TAB PO SCH ×3 (00:12→21:17)
[2021-01-27] MEDS: NICOTINE 21MG/24HR 1 EA TRANSDERMAL TD SCH (09:00)
--- NOTE | 2021-01-27 11:21 | MHIPN ---
[facility] PROGRESS NOTE DATE: 01/26/2021 The patient today states that he is not hearing voices anymore. He says, "I'm just talking to myself." The patient says that he has not been given his Cogentin and he is afraid he is going to have some side effects from his medication without the Cogentin. He has no complaints. MENTAL STATUS EXAMINATION: He is alert and oriented times three. Eye contact is fair. There is no formal thought disorder noted. He says his mood is fine. Affect is restricted. He is denying any hallucinations, any suicidal or homicidal ideations. Concentration is fair. Memory is intact. Insight and judgment fair. DIAGNOSES: Schizophrenia. Stimulant use disorder. Alcohol use disorder. Cannabis use disorder. TREATMENT PLAN: At this point, we will continue to monitor the patient for resolution of psychotic symptoms and elevation and stabilization of his mood and resolution of any suicidal ideations.
[2021-01-27] MEDS: ACETAMINOPHEN TAB 650MG DOSE (2X325MG) PO PRN (16:15)
[2021-01-28 06:45] VITALS: BP 120/88
[2021-01-28] MEDS ORDERED: HALOPERIDOL DECANOATE 100 MG/ML VIAL (J1631) IM ONE (09:00)
[2021-01-28] MEDS: NICOTINE 21MG/24HR 1 EA TRANSDERMAL TD SCH (09:00)
[2021-01-28] MEDS: BENZTROPINE 0.5 MG TAB PO SCH ×2 (09:31→20:59)
[2021-01-28] MEDS: ACETAMINOPHEN TAB 650MG DOSE (2X325MG) PO PRN (10:27)
[2021-01-29 06:33] VITALS: BP 110/69
[2021-01-29] MEDS: NICOTINE 21MG/24HR 1 EA TRANSDERMAL TD SCH (09:00)
[2021-01-29] MEDS: BENZTROPINE 0.5 MG TAB PO SCH ×2 (09:09→19:47)
--- NOTE | 2021-01-29 15:56 | MHIPNPDOC ---
[facility] Progress Note Progress Note DATE OF SERVICE: 01/29/21 HISTORY: Patient is a 40 -year-old single, intellectually disabled, domiciled, , male, who had told the cathode washer that he had suicidal thoughts and then later recanted. He presents with internal stimuli, responding to them and not acknowledging why he is here. He stated that he wanted to see a oil pipeline dispatcher. It was difficult to ascertain what the patient is saying because he is whispering in the interview. He refused to answer questions and stated that he would not answer any questions until he had a oil pipeline dispatcher with him. Patient is well known to this facility. He has greater than 6 psychiatric admissions. He is had psychiatric admissions since age 16, diagnosed with schizophrenia, paranoid type. His last admission was in June 2020, in which he was reporting dep ression and suicidal ideation to hang himself PER ED REPORT: Pt self-presented to the ED & told the RN that he was having SI with no plan. Pt told Dr. Lees that he was not suicidal. When Dr. Lees asked him if he told the RN that he was suicidal he initially said "yes" but then later stated that he never told anyone that he was suicidal. Pt told Dr. Lees that he is having AH, but they are not command type. Per Dr. Lees, pt appears to be internally preoccupied & his thought process is disorganized. Pt is unkempt & malodorous. TW attempted to assess pt. Pt asked "How many times do I have to answer these questions? I already talked to the psych doctor." TW explained that he had spoken to the ED MD, not the psychiatrist, & he stated "I talked to someone on the phone." TW informed him that he had spoken to someone from registration & he stated "I am not answering any more questions until I talk to a oil pipeline dispatcher." Pt has a hx of one suicide attempt several years ago via cutting. He does not have a hx of self-harm. Pt has a long hx of schizophrenia with multiple admissions. He has OP tx at [facility], but it is unknown whether or not he has been compliant. Pt has a hx of abusing alcohol, MJ, quan, & crack cocaine. His tox screen was positive for cannabis. VITAL SIGNS: See below. CURRENT MEDICATIONS: See below. MENTAL STATUS EXAMINATION: Patient is a 40 -year-old single, intellectually disabled, domiciled, , male, who had told the cathode washer that he had suicidal thoughts and then later recanted. He was observed to be delusional and paranoid General Appearance: unkempt, disheveled, hospital scrubs/clothing Build: other (muscular build) Demeanor: mistrustful, preoccupied, guarded Eye Contact: avoidant Activity: agitated, anxious Behavior: uncooperative, resistant Speech: low in volume, impoverished Mood: irritable Affect: constricted, disorganized Thought Process: loose, associative Thought Content (Delusions): paranoia, delusions Thought Content (Other): guarded Thought Content (Aggressive): none reported Perception (Hallucinations): auditory Perception (Other): none reported Cognition (Impairment of): attention/concentration Cognition(Intelligence Est.): borderline Oriented: Awake, Alert, Oriented times three Insight: poor Judgment: Poor Psychosis: Psychotic Perceptions DIAGNOSES: Schizophrenia, paranoid type Intellectually Disabled Stimulant use disorder, Alcohol use disorder. Cannabis use disorder, Nicotine use disorder ASSESSMENT: Patient is responding to internal stimuli. Per staff the patient is improving and he is at baseline when he starts writing things down and asking to be discharged. Ptl reports that he is doing well, denies Depression and Suicidal Ideationi. He reports that he received his injection and that he is ready to be discharged MANAGEMENT PLAN: Continue all medications, possible discharge tomorrow. TIME SPENT: 25 minutes. Vital Signs Vital Signs Date Time Temp Pulse Resp B/P (MAP) Pulse Ox O2 Delivery O2 Flow Rate FiO2 01/29/21 06:33 98.4 78 20 110/69 (83) 100 Room Air Current Medications Current Medications Medications (Trade) Dose Ordered Sig/Simone Route PRN Reason Start Time Stop Time Status Last Admin Dose Admin Acetaminophen (Tylenol Tab) 650 mg Q6HP PRN PO HEADACHE or DISCOMFORT 01/23/21 02:40 01/28/21 10:27 Al Hydrox/Mg Hydrox/Simethicone (Mylanta) 30 ml Q4HP PRN PO HEARTBURN/INDIGESTION 01/23/21 02:40 Benztropine Mesylate (Cogentin) 0.5 mg BID PO 01/26/21 09:00 01/29/21 09:09 Haloperidol (Haldol) 5 mg Q6HP PRN PO AGITATION 01/25/21 15:25 Haloperidol (Haldol) 10 mg BID PO 01/25/21 21:00 01/29/21 09:09 Home Med (Med Rec Complete!) ASDIRECTED XX 01/23/21 01:15 01/23/21 01:13 DC Magnesium Hydroxide (Milk Of Magnesia) 30 ml DAILYPRN PRN PO CONSTIPATION 01/23/21 02:40 Nicotine (Nicoderm Cq 21mg) 1 patch DAILY TD 01/23/21 09:00 Olanzapine (ZyPREXA ZYDIS) 5 mg Q6HP PRN PO ANXIETY/AGITATION 01/23/21 22:30 01/25/21 15:25 DC Olanzapine (ZyPREXA) 5 mg BID PO 01/23/21 21:00 01/25/21 08:57 DC 01/24/21 21:40 Risperidone (RisperDAL) 3 mg BID PO 01/25/21 21:00 01/25/21 15:25 DC Trazodone HCl (Desyrel) 50 mg QHSP PRN PO INSOMNIA 01/23/21 02:40 Allergies Coded Allergies: PERFUMES (Verified Allergy, Unknown, 09/22/20) KRYSTIN IRWIN NP Jan 29, 2021 15:48
[2021-01-29 16:37] VITALS: BP 114/61
--- NOTE | 2021-01-29 17:23 | MHIPN ---
[facility] PROGRESS NOTE DATE: 01/27/2021 The patient states, "I'm hanging in there." He says he slept good. He tells me that he is not hearing voices today but "I just talk to myself real loud." MENTAL STATUS EXAMINATION: He is alert and oriented times three. Eye contact is fair. Psychomotor activity is normal. The patient does have some pressured speech. He says his mood is okay. His affect is constricted but appropriate. He is denying that he is hearing voices today, but he does tend to be guarded about that. His thoughts are better organized today. He is denying suicidal or homicidal ideations. Concentration is fair. Memory is intact. Insight and judgment is poor. DIAGNOSES: Schizophrenia. Stimulant use disorder. Alcohol use disorder. Cannabis use disorder. TREATMENT PLAN: At this point, we will continue to monitor the patient for psychotic symptoms and stabilization and continued resolution of suicidal ideations.
[2021-01-29] MEDS: ACETAMINOPHEN TAB 650MG DOSE (2X325MG) PO PRN (19:48)
[2021-01-30 06:49] VITALS: BP 113/73
[2021-01-30] MEDS ORDERED: HALOPERIDOL DECANOATE 100 MG/ML VIAL (J1631) IM ONE (07:50)
[2021-01-30] MEDS ORDERED: BENZ0.5T23 PO (08:00)
[2021-01-30] MEDS ORDERED: [UNRECOGNIZED DRUG - CODE] IM ×2 (08:00→08:52)
--- NOTE | 2021-01-30 08:31 | MHDSPDOC ---
[facility] Discharge Summary Discharge Summary DATE OF ADMISSION: Jan 23, 2021 at 02:39 DATE OF DISCHARGE: January 30, 2021 at 0744 DISCHARGE DIAGNOSES: Schizophrenia, paranoid type Stimulant use disorder, Alcohol use disorder. Cannabis use disorder, Nicotine use disorder REASON FOR ADMISSION: Patient is a 40 -year-old single, disabled domiciled, , male, who had told the systems mechanic that he had suicidal thoughts and then later recanted. He presents with internal stimuli, responding to them and not acknowledging why he is here. He stated that he wanted to see a numerical control machine operator. It was difficult to ascertain what the patient is saying because he is whispering in the interview. He refused to answer questions and stated that he would not answer any questions until he had a numerical control machine operator with him. Patient is well known to this facility. He has greater than 6 psychiatric admissions. He is had psychiatric admissions since age 16, diagnosed with schizophrenia, paranoid type. His last admission was in June 2020, in which he was reporting depression and suicidal ideation to hang himself PER ED REPORT: Pt self-presented to the ED & told the RN that he was having SI with no plan. Pt told Dr. Lees that he was not suicidal. When Dr. Lees asked him if he told the RN that he was suicidal he initially said "yes" but then later stated that he never told anyone that he was suicidal. Pt told Dr. Lees that he is having AH, but they are not command type. Per Dr. Lees, pt appears to be internally preoccupied & his thought process is disorganized. Pt is unkempt & malodorous. TW attempted to assess pt. Pt asked "How many times do I have to answer these questions? I already talked to the psych doctor." TW explained that he had spoken to the ED MD, not the psychiatrist, & he stated "I talked to someone on the phone." TW informed him that he had spoken to someone from registration & he stated "I am not answering any more questions until I talk to a numerical control machine operator." Pt has a hx of one suicide attempt several years ago via cutting. He does not have a hx of self-harm. Pt has a long hx of schizophrenia with multiple admissions. He has OP tx at [facility], but it is unknown whether or not he has been compliant. Pt has a hx of abusing alcohol, MJ, quan, & crack cocaine. His tox screen was positive for cannabis. CONSULTANTS INVOLVED: See Medical H + P by Hospitalist TREATMENT AND PROGRESS ON THE UNIT: Patient was admitted to the [facility] on a legal status he was afforded the following treatment modalities: 1) Individual Therapy 2) Group Therapy 3) Medication Management 4) Milieu Therapy 5) Safe Environment HOSPITAL COURSE: Patient was admitted to [facility] on Legal Status. Patient has a long history of admissions to this facility in which he self-presents with increased paranoia, poor verbalization/communication, irritability, depressive and suicidal thoughts. He often comes and is not agreeable to medications initially but he improves and takes the oral medications. On this admission the patient was agreeable to Haldol oral and he was given Haldol Decanoate 100 mg IM. In review, a 2nd injection of Haldol Decanoate of 100 mg IM which was given today. His home dose is 200 mg IM. He was anxious to leave today, states that his mother is welcoming him back. Per staff and treatment team who are more familiar with this patient, he has improved and is at his baseline. DISCHARGE ASSESSMENT: In today's interview, patient is alert and oriented, pts dress is appropriate. Hygiene and grooming is well-kempt. Smiles on approach and is pleasant and engaged in the interview. Denies depression and anxiety. Denies suicidal and homicidal ideation, planning or intent. Denies and is not observed with leila, psychotic symptoms of delusions, bizarre thinking, obsessions, paranoia, ruminations illogical thoughts, flight of ideas or having poor insight and judgement. Patient has normal mentation, declines further hospitalization on a voluntary status and meets criteria for discharge today. Patient encouraged to return to hospital if his symptoms worsen or change and encouraged to call unit if he/she/they needs to speak to provider for questions regarding medications or care. MENTAL STATUS EXAMINATION ON DISCHARGE: Patient is a 40 -year-old single, disabled domiciled, , male, who had told the systems mechanic that he had suicidal thoughts. He is well known to this facility and often comes in when he is exhibiting paranoia and delusions. Speech: Is fluid, more conversant, normal rate, tone and volume Language skills are intact Thought processes including: linear and goal oriented Thought content: denies depression and anxiety. Denies suicidal/homicidal ideation, planning or intent. Abstract reasoning, and computation: fair Description of associations: denies, none observed Description of abnormal or psychotic thoughts: denies, none observed. Judgment: improved/fair Insight: improved/fair Orientation: alert and oriented to person, place, time and situation Recent and remote memory: intact Attention span and concentration: fair Language: expansive Fund of knowledge: below average Mood: Bright Mood Affect: reactive/bright/congruent MEDICATIONS ON DISCHARGE: See Medication Reconciliation PLAN/FOLLOWUP ARRANGEMENTS: Patient is discharged to his mother's home where he resides. He will follow up at [facility] The amount of time spent in the coordination of care for this patient was approximately 35 minutes. ETOH/Disorder Med Rx ETOH/DRUG DISORDER RX: Offrd @ d/c & pt refused Vital Signs/I&Os Vital Signs Date Time Temp Pulse Resp B/P (MAP) Pulse Ox O2 Delivery O2 Flow Rate FiO2 01/30/21 06:49 97.6 68 20 113/73 (86) 100 Room Air Medications Scheduled Benztropine Mesylate (Benztropine Mesylate) 0.5 Mg Tablet, 0.5 MG PO BID for EPS, #14 Haloperidol Decanoate (Haloperidol Decanoate) 100 Mg/1 Ml Ampul, 200 MG IM Q3WKS for antipsychotic, #2 Next dose due 02/18/21 Allergies Coded Allergies: PERFUMES (Verified Allergy, Unknown, 09/22/20) KRYSTIN IRWIN NP Jan 30, 2021 07:44
[2021-01-30] MEDS: BENZTROPINE 0.5 MG TAB PO SCH (09:00)
[2021-01-30] MEDS: NICOTINE 21MG/24HR 1 EA TRANSDERMAL TD SCH (09:00)
== END 2021-01-30 11:51 | disposition home or self-care (01) | DRG 750 ==
LOC: M ED 21:04 → M ED INP 01-23 02:39 → M PSY 01-23 04:42
PROVIDERS: ADMIT Psychiatry & Neurology Psychiatry; ATTEND Psychiatry & Neurology Psychiatry
DX: F20.0 Paranoid schizophrenia (principal); F79 Unspecified intellectual disabilities; F12.10 Cannabis abuse, uncomplicated; F10.10 Alcohol abuse, uncomplicated; F15.10 Other stimulant abuse, uncomplicated; F17.210 Nicotine dependence, cigarettes, uncomplicated; R45.851 Suicidal ideations; I10 Essential (primary) hypertension; Z91.048 Other nonmedicinal substance allergy status; Z20.822 Contact with and (suspected) exposure to COVID-19; Z81.8 Family history of other mental and behavioral disorders

== ENCOUNTER 2021-02-27 11:32 | Emergency (ER) | payer MEDICAID, OTHER ==
[~2021-02-27] VITALS: Ht 172.7 cm; Wt 72.2 kg
[~2021-02-27 11:32] MED LIST changes: +[UNRECOGNIZED DRUG - CODE] IM
[2021-02-27 12:09] LABS: HEMATOCRIT 46.5 % (42.0-52.0); MEAN CORPUSCULAR HEMOGLOBIN 29.5 pg (27.0-33.0); MEAN CORPUSCULAR HGB CONC 32.3 g/dl (32.0-36.5); MEAN CORPUSCULAR VOLUME 91.4 fl (80.0-96.0); PLATELET COUNT, AUTOMATED 260 10^3/uL (150-450); RED BLOOD COUNT 5.09 10^6/uL (4.30-6.10); WHITE BLOOD COUNT 6.7 10^3/uL (4.0-10.0)
[2021-02-27 12:39] LABS: AMPHETAMINES LEVEL URINE NEGATIVE (NEGATIVE); BARBITURATES URINE NEGATIVE (NEGATIVE); BENZODIAZEPINES URINE NEGATIVE (NEGATIVE); CANNABINOIDS URINE POSITIVE (NEGATIVE); COCAINE METABOLITE URINE NEGATIVE (NEGATIVE); METHADONE URINE NEGATIVE (NEGATIVE); OPIATES URINE NEGATIVE (NEGATIVE); PHENCYCLIDINE URINE NEGATIVE (NEGATIVE)
[2021-02-27 12:49] LABS: ACETAMINOPHEN LEVEL < 2.0 UG/ML (10.0-30.0); ALBUMIN 3.6 GM/DL (3.2-5.2); ALT/SGPT 116 U/L (12-78); BILIRUBIN,DIRECT 0.2 MG/DL (0.0-0.2); BILIRUBIN,TOTAL 0.8 MG/DL (0.2-1.0); BLOOD UREA NITROGEN 12 MG/DL (7-18); CALCIUM LEVEL 9.1 MG/DL (8.5-10.1); CARBON DIOXIDE LEVEL 28 MEQ/L (21-32); CHLORIDE LEVEL 109 MEQ/L (98-107); CREATININE FOR GFR 0.94 MG/DL (0.70-1.30); ETHYL ALCOHOL (ETHANOL) < 0.003 % (0.000-0.010); GLOMERULAR FILTRATION RATE > 60.0 (>60); GLUCOSE, FASTING 57 MG/DL (70-100); POTASSIUM SERUM 4.3 MEQ/L (3.5-5.1); SALICYLATE LEVEL < 1.7 MG/DL (5.0-30.0); SODIUM LEVEL 142 MEQ/L (136-145); THYROID STIMULATING HORMONE 0.372 uIU/ML (0.358-3.740); TOTAL PROTEIN 7.2 GM/DL (6.4-8.2)
[2021-02-27] MEDS ORDERED: GLUCAGON INJ 1MG VIAL IM STA (12:58)
[2021-02-27 17:49] LABS: RSV AMPLIFICATION NEGATIVE (NEGATIVE)
[2021-02-27 18:47] VITALS: BP 130/74
--- NOTE | 2021-02-27 23:11 | ECGEPIP ---
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
== END 2021-02-27 18:48 ==
LOC: M ED 11:32
DX: R45.850 Homicidal ideations (principal); R45.851 Suicidal ideations; F20.9 Schizophrenia, unspecified; F12.10 Cannabis abuse, uncomplicated
CPT/HCPCS: 80048; 80076; 80143; 80307; 82077; 84443; 85027; 87631; 93005; 96372; 99284; J1610

== ENCOUNTER 2021-04-13 20:04 | Emergency (ER) | payer OTHER ==
[~2021-04-13] VITALS: Ht 175.3 cm; Wt 68.0 kg
[2021-04-13 20:06] VITALS: BP 129/76
== END 2021-04-13 20:50 | disposition left against medical advice (07) ==
LOC: M ED 20:04
DX: Z53.21 Procedure and treatment not carried out due to patient leaving prior to being seen by health care provider (principal)

== ENCOUNTER 2021-04-13 23:54 | Emergency (ER) | payer OTHER ==
[~2021-04-13] VITALS: Ht 175.3 cm; Wt 68.2 kg
[2021-04-13 23:55] VITALS: BP 114/74
== END 2021-04-14 01:22 | disposition left against medical advice (07) ==
LOC: M ED 23:54
DX: Z53.21 Procedure and treatment not carried out due to patient leaving prior to being seen by health care provider (principal)

== ENCOUNTER 2021-04-17 16:16 | Emergency (ER) | payer OTHER ==
[~2021-04-17] VITALS: Ht 170.2 cm; Wt 70.0 kg
[~2021-04-17 16:16] MED LIST changes: -OLAN10TA2 PO; +OLAN1TAB20 PO
[2021-04-17] MEDS ORDERED: INVE234I (16:24)
[2021-04-17] MEDS ORDERED: IBUPROFEN 400MG TAB PO ONE (16:45)
[2021-04-17] MEDS ORDERED: ACETAMINOPHEN 500 MG TAB PO ONE (16:45)
[2021-04-17] MEDS ORDERED: FLON1SPR NARES (17:38)
[2021-04-17] MEDS ORDERED: AFRI0.058 (17:39)
[2021-04-17 17:57] VITALS: BP 137/88
== END 2021-04-17 18:00 | disposition home or self-care (01) ==
LOC: M ED 16:16
DX: J06.9 Acute upper respiratory infection, unspecified (principal); Z20.811 Contact with and (suspected) exposure to meningococcus; F20.9 Schizophrenia, unspecified; Z79.899 Other long term (current) drug therapy
CPT/HCPCS: 99283; U0003

== ENCOUNTER 2021-04-19 01:16 | Inpatient (IN) | payer MEDICAID, OTHER ==
[~2021-04-19] VITALS: Ht 195.6 cm; Wt 79.0 kg
[~2021-04-19 01:16] MED LIST changes: +AFRI0.058; +FLON1SPR NARES; +INVE234I; +OLAN10TA2 PO; -OLAN1TAB20 PO
[2021-04-19 03:09] LABS: HEMATOCRIT 42.5 % (42.0-52.0); HEMOGLOBIN 13.8 g/dl (13.5-17.5); MEAN CORPUSCULAR HEMOGLOBIN 29.8 pg (27.0-33.0); MEAN CORPUSCULAR HGB CONC 32.5 g/dl (32.0-36.5); MEAN CORPUSCULAR VOLUME 91.8 fl (80.0-96.0); PLATELET COUNT, AUTOMATED 342 10^3/uL (150-450); RED BLOOD COUNT 4.63 10^6/uL (4.30-6.10); WHITE BLOOD COUNT 11.4 10^3/uL (4.0-10.0)
[2021-04-19 03:34] LABS: ACETAMINOPHEN LEVEL < 2.0 UG/ML (10.0-30.0); ALBUMIN 3.4 GM/DL (3.2-5.2); ALT/SGPT 571 U/L (12-78); BILIRUBIN,DIRECT 0.3 MG/DL (0.0-0.2); BILIRUBIN,TOTAL 0.9 MG/DL (0.2-1.0); BLOOD UREA NITROGEN 12 MG/DL (7-18); CALCIUM LEVEL 8.9 MG/DL (8.5-10.1); CARBON DIOXIDE LEVEL 31 MEQ/L (21-32); CHLORIDE LEVEL 108 MEQ/L (98-107); CREATININE FOR GFR 0.86 MG/DL (0.70-1.30); ETHYL ALCOHOL (ETHANOL) < 0.003 % (0.000-0.010); GLOMERULAR FILTRATION RATE > 60.0 (>60); GLUCOSE, FASTING 66 MG/DL (70-100); SALICYLATE LEVEL < 1.7 MG/DL (5.0-30.0); SODIUM LEVEL 142 MEQ/L (136-145); THYROID STIMULATING HORMONE 0.706 uIU/ML (0.358-3.740); TOTAL PROTEIN 6.8 GM/DL (6.4-8.2)
[2021-04-19 04:46] LABS: AMPHETAMINES LEVEL URINE NEGATIVE (NEGATIVE); BARBITURATES URINE NEGATIVE (NEGATIVE); BENZODIAZEPINES URINE NEGATIVE (NEGATIVE); CANNABINOIDS URINE POSITIVE (NEGATIVE); COCAINE METABOLITE URINE NEGATIVE (NEGATIVE); METHADONE URINE NEGATIVE (NEGATIVE); OPIATES URINE NEGATIVE (NEGATIVE); PHENCYCLIDINE URINE NEGATIVE (NEGATIVE)
[2021-04-19 07:30] LABS: RSV AMPLIFICATION NEGATIVE (NEGATIVE)
[2021-04-19] MEDS: NICOTINE 21MG/24HR 1 EA TRANSDERMAL TD SCH (09:00)
[2021-04-19] MEDS ORDERED: ACETAMINOPHEN TAB 650MG DOSE (2X325MG) PO PRN (12:05)
[2021-04-19] MEDS ORDERED: MOM 30ML SUSPENSION UDC PO PRN (12:05)
[2021-04-19] MEDS ORDERED: OLANZapine ORAL DISINTEGRATING TAB 5MG PO PRN (12:05)
[2021-04-19] MEDS ORDERED: MAALOX 30 ML SUSP *UDC PO PRN (12:05)
[2021-04-19] MEDS ORDERED: traZODone 50 MG TAB PO PRN (12:05)
--- NOTE | 2021-04-19 18:01 | MHHPEPDOC ---
General Date Of Admission: Apr 19, 2021 Legal Status: 9.39 Chief Complaint "Are not talking to anyone." History of Present Illness HISTORY OF THE PRESENT ILLNESS: Patient is a 41 -year-old Single, Intellectually Disabled, Domiciled , male, who self-presented to the emergency department with reports that he is feeling suicidal. He currently does not have a plan. This patient is well-known to this facility with over 20+ admissions since 2010. . He has had multiple psychiatric admissions since the age of 16. His last admission was /. At that time he was admitted to my service with a diagnosis of schizophrenia, paranoid type. Patient often presents to the ED with suicidal ideations, severe agitation and internal stimuli. On this occasion, he is presenting similarly with internal stimuli, responding to them and not acknowledging why he is here, states "I'm not talking to anyone., " PER ED REPORT: HISTORY OF THE PRESENT ILLNESS: Patient is a 41 -year-old Single, Intellectually Disabled, Domiciled , male, who self Pt self-presented to the ED due to SI. Pt states "I am suicidal." He states that he has SI with no plan. Pt denies HI. He denies both AH & VH. However, he is noted to be talking & laughing to himself. He appears to be responding to internal stimuli. Pt states that he is not depressed. He states that he uses "weed & quan" & that he drinks "a little bit." Pt states that he needs to be admitted. He refused to answer any further questions. Pt is noted to be unkempt & malodorous. His speech is soft & mumbled. His affect is flat. Pt has a hx of one suicide attempt several years ago via cutting. He does not have a hx of self-harm. Pt has a long hx of schizophrenia with multiple admissions. He has OP tx at [facility], but it is unknown whether or not pt has been compliant with tx or meds. Pt has a hx of abusing alcohol, MJ, quan, & crack cocaine. His tox screen was positive for cannabis. Psychiatric Review of Systems Depression (2 or more weeks): suicidal thoughts, other (patient refuses to answer questions about review of systems he is not participating in the interview) Laura (4 or more days of): denies Psychosis: delusions, paranoia, disorganization PTSD: denies Anxiety: denies Past Psychiatric History Previous Psychiatric Diagnosis: Schizophrenia, paranoid type. Intellectual disability, stimulate use disorder, alcohol use disorder. Cannabis use disorder, nicotine use disorder. Previous Psychiatric Admissions:, 103/. Patient has had 20+ admissions to this facility. Patient has had multiple psychiatric admissions since he was 16 years Suicide Attempts: Multiple presentations to the ED with suicidal ideations to hang self. History of cutting, history of hanging gestures. No actual attempts. He reports a history of violence was charged with assault and he was in [facility] for 5 years. Psychiatric Follow-up:. Patient follows up a community clinic. Psychiatric medications:. Patient has had Invega Trinza in the past. Past Medical History Medical Problems Per old chart as patient is refusing to speak to me at this time Hypertension Concussion Head Injury: Yes Seizures: No Hospitalizations: Yes Surgeries: No Family Medical/Psychiatric HX Medical Problems Family History of Mental Illness and addictions. Older Brother - Schizophrenia Grandmother - Anxiety and Diabetes Psychiatric Disorders: Yes Addiction: No Suicide Attemps/Completions: No Addiction History nicotine, alcohol, cocaine, ecstasy (Cannabis, Quan), other Social History Per last admission: Childhood: Patient was born in [place]. . His father was in the . He has 2 older brothers who live with him. He lives with his mother. He stated that he often gets in fights with his brothers Abuse/Trauma: History of trauma, but does not disclose - history of fighting with his brothers. Current Living Situation: Lives with his mother. Education: Only went to the 10th grade and was in special education. Patient is intellectually disabled. Employment: Intellectually disabled. No work history. Social Support:. Mother. Legal: History of incarceration 5 years for assaulting his girlfriend. Marital:, Single, never . Mental Status Examination General Appearance: unkempt, disheveled, appears stated age, hospital scubs/ clothing Build: other (, muscular build) Demeanor: mistrustful, preoccupied, guarded Eye Contact: avoidant Activity: agitated, hostile Behavior: uncooperative, resistant, agitated Speech: low in volume, other (, mumbled, and impoverished) Mood: irritable Affect: flat, disorganized Thought Process: incoherent, loose Thought Content (Delusions): bizarre, paranoia, delusions Thought Content (Other): guarded, internal-stimuli Thought Content (Aggressive): aggressive (assess) (observed to be mildly agitated) Perception (Hallucinations): auditory Cognition (Impairment of): attention/concentration Cognition(Intelligence Est.): borderline Oriented: Awake, Alert Insight: poor Judgment: Poor Psychosis: Psychotic Perceptions Diagnoses Schizophrenia, paranoid type Intellectually disabled Stimulant use disorder Alcohol use disorder Cannabis use disorder Nicotine use disorder A-FIB/CHADSVASC A-FIB History Current/History of A-Fib/PAF?: No Current PO Anticoag Therapy: No Assessment Patient is a 40-year-old single, intellectually disabled -[place]ian male who presented to the ED reporting suicidal ideation without a plan. On initial interview, patient states, "I wanted talk to anyone." The patient is well familiar to this provider. His last admission to my service was . Patient has had numerous psychiatric admissions to this facility with similar complaints in which he comes in either very agitated, having delusional thinking or he reports that he has suicidal thoughts. Patient is seen by community clinic and gets along acting injectable. It may be that he has not been seen by the clinic and has missed his injection. Patient usually can be resumed on medications and will clear in 3-4 days and will request to be discharged to home when he has normal mentation. According to the ED, patient was admitted to [facility] in [place] in January 2021. Mental status exam exam patient is unkempt, disheveled, appears his stated age, wearing hospital scrubs. He has a muscular build. He is mistrustful, preoccupied and guarded in his demeanor. He has an intense eye contact. He is uncooperative in his behavior in quite irritable. His speech is low in volume, mumbled, impoverished. His mood is irritable/hostile. His affect is flat and congruent with mood. Thought process is disorganized, loose. Thought content bizarre and paranoid. I am unable to determine his suicidality or homicidality due to his paranoia and refusal to participate in the interview. He seems to have an aggressive demeanor towards the end of the interview. He is responding to internal stimuli. His intelligence is below average. I am unable to determine his memory, but I feel that it is intact, although he is a poor historian during his illness. He is alert and beverley ented. Insight and judgment is poor. Treatment plan Admit to my service 939 legal status offer individual, group, milieu, and medication therapy Place on relevant suicide precautions Initial Treatment Plan 1. Patient was admitted on a [9.39] status. 2. Complete history was obtained. 3. With patients permission, family will be contacted and database will be expanded. 4. Patients medication regimen will be reviewed and changed accordingly. 5. Patient will be provided with protected environment. 6. Patient will be treated with individual, group, and milieu therapies. 7. Patient will receive supportive psych-education. 8. Discharge planning will commence immediately. 9. Outpatient follow-up treatment will be strongly recommended. 10. The initial treatment plan will focus initially on: * altered thoughts * substance use * Risk for suicide. ESTIMATED LENGTH OF STAY: 3-5 DAYS. TIME SPENT COUNSELING AND COORDINATING INITIAL CARE: 60 minutes. Tobacco Cessation Screen Tobacco Cessation Tx Ordered?: Yes Incomplete r/t Pt cond. Vital Signs Vital Signs Date Time Temp Pulse Resp B/P (MAP) Pulse Ox O2 Delivery O2 Flow Rate FiO2 04/19/21 14:02 97.1 79 18 130/88 (102) 99 Room Air Laboratory Data 24H Labs Laboratory Tests 2 04/19/21 01:32: Urine Opiates Screen NEGATIVE, Urine Methadone Screen NEGATIVE, Urine Barbiturates Screen NEGATIVE, Urine Phencyclidine Screen NEGATIVE, Urine Amphetamines Screen NEGATIVE, Urine Benzodiazepines Screen NEGATIVE, Urine Cocaine Metabolite Screen NEGATIVE, Urine Cannabinoids Screen POSITIVEH 04/19/21 01:52: Nucleated Red Blood Cells % (auto) 0.0, Anion Gap 3L, Glomerular Filtration Rate > 60.0, Calcium Level 8.9, Total Bilirubin 0.9, Direct Bilirubin 0.3H, Aspartat e Amino Transf (AST/SGOT) 85H, Alanine Aminotransferase (ALT/SGPT) 571H, Alkaline Phosphatase 116, Total Protein 6.8, Albumin 3.4, Albumin/Globulin Ratio 1.0, Thyroid Stimulating Hormone (TSH) 0.706, Salicylates Level < 1.7L, Acetaminophen Level < 2.0L, Ethyl Alcohol Level < 0.003 04/19/21 06:29: Coronavirus (COVID-19)(PCR) NEGATIVE, Influenza Type A (RT-PCR) NEGATIVE, Influenza Type B (RT-PCR) NEGATIVE, Respiratory Syncytial Virus (PCR) NEGATIVE CBC/BMP Laboratory Tests 04/19/21 01:52 Medications No Active Prescriptions or Reported Meds Allergies Coded Allergies: PERFUMES (Verified Allergy, Unknown, 09/22/20) KRYSTIN IRWIN NP Apr 19, 2021 17:25
[2021-04-19] MEDS ORDERED: LORazepam 2 MG TAB PO PRN (18:05)
[2021-04-19] MEDS ORDERED: haloperidoL 5 MG TAB PO PRN (18:05)
[2021-04-19] MEDS ORDERED: BENZTROPINE 1 MG TAB PO PRN (18:05)
[2021-04-19] MEDS ORDERED: PALIPERIDONE 3 MG ER TAB (INVEGA) PO SCH (21:00)
[2021-04-19] MEDS: haloperidoL 5 MG TAB PO SCH (21:50)
[2021-04-20] MEDS: NICOTINE 21MG/24HR 1 EA TRANSDERMAL TD SCH (09:00)
[2021-04-20] MEDS: haloperidoL 5 MG TAB PO SCH ×3 (09:00→21:44)
--- NOTE | 2021-04-20 09:43 | MHIPNPDOC ---
[facility] Progress Note Progress Note DATE OF SERVICE: 04/20/21 Patient is cooperated with his medications and has no new complaints. On examination by this M.D. Patient is not making any eye contact with the M.D. and pretending to be writing notes, and grabbing other papers and not paying any attention and is passively uncooperative. He only answers to a few selective questions, but otherwise unable or not willing to respond. He doesn't appear to be in any acute distress has not been agitated and has not shown any aggressive or suicidal behaviors. HISTORY: . VITAL SIGNS: See below. NEW TEST RESULTS: . CURRENT MEDICATIONS: See below. MENTAL STATUS EXAMINATION: Patient is a 41 -year old male, who is is in no acute distress, but not very cooperative. Speech: Is , not productive. Language skills are poor. Thought processes including: Scattered . Thought content: Difficulty. Evaluate. Abstract reasoning, and computation: poor. Description of associations: , Not responding appropriately. Description of abnormal or psychotic thoughts: Appears to be hallucinating at times. Judgment: poor. Insight: poor]. Orientation: Appears oriented to the place. Recent and remote memory: , Unable to evaluate. Attention span and concentration: poor. Language: . Fund of knowledge: . Mood: Appears moderately anxious. Affect: , Blunted, preoccupied. DIAGNOSES: 1. . Chronic schizophrenia 2. ., Polysubstance abuse 3. . Intellectual disability ASSESSMENT: Cooperating with the medicine and in control, but remains loose, disorganized MANAGEMENT PLAN: [Continued medications of Haldol and supportive therapy]. TIME SPENT: [15] minutes. Vital Signs Vital Signs Date Time Temp Pulse Resp B/P (MAP) Pulse Ox O2 Delivery O2 Flow Rate FiO2 04/20/21 08:16 Room Air 04/19/21 14:02 97.1 79 18 130/88 (102) 99 Current Medications Current Medications Medications (Trade) Dose Ordered Sig/Simone Route PRN Reason Start Time Stop Time Status Last Admin Dose Admin Acetaminophen (Tylenol Tab) 650 mg Q6HP PRN PO HEADACHE or MILD DISCOMFORT 04/19/21 12:05 Al Hydrox/Mg Hydrox/Simethicone (Mylanta) 30 ml Q4HP PRN PO HEARTBURN/INDIGESTION 04/19/21 12:05 Benztropine Mesylate (Cogentin) 0.5 mg BIDP PRN PO EPS 04/19/21 18:05 Haloperidol (Haldol) 5 mg Q8HP PRN PO AGITATION 04/19/21 18:05 Haloperidol (Haldol) 5 mg TID PO 04/19/21 21:00 04/20/21 09:00 Home Med (Med Rec Complete!) ASDIRECTED XX 04/19/21 06:40 04/19/21 06:41 DC Lorazepam (Ativan) 2 mg Q8HP PRN PO AGITATION 04/19/21 18:05 Magnesium Hydroxide (Milk Of Magnesia) 30 ml DAILYPRN PRN PO CONSTIPATION 04/19/21 12:05 Nicotine (Nicoderm Cq 21mg) 1 patch DAILY TD 04/19/21 09:00 Olanzapine (ZyPREXA ZYDIS) 5 mg Q6HP PRN PO ANXIETY/AGITATION 04/19/21 12:05 04/19/21 18:08 DC Paliperidone (Invega) 3 mg QHS PO 04/19/21 21:00 04/19/21 18:08 DC Trazodone HCl (Desyrel) 50 mg QHSP PRN PO INSOMNIA 04/19/21 12:05 Allergies Coded Allergies: PERFUMES (Verified Allergy, Unknown, 09/22/20) ARCADIO SHAH M.D. Apr 20, 2021 09:43
--- NOTE | 2021-04-20 13:30 | HPEPDOC ---
[facility] Medical History & Physical Date of Admission Apr 19, 2021 Date of Service: Apr 20, 2021 History and Physical CHIEF COMPLAINT: Medical consultation HISTORY OF PRESENT ILLNESS: Patient admitted to the inpatient mental health unit for chronic uncontrolled schizophrenia noncompliant with medications. I am asked to provide a medical assessment of patient admitted to the psychiatric unit. My assessment is limited to medical problems and does not address any psychiatric problems which is deferred to the in-house psychiatrist. Obtaining history is very difficult in this patient he avoids eye contact and refuses to answer most questions just writing down notes on a piece of paper. The notes a repeating words and nonsensical. He tells me he has a mild headache otherwise he tells me he has no other complaints PAST MEDICAL HISTORY: Denies any Chart review reveals hypertension and concussion SOCIAL HISTORY: He tells me he quit smoking drinking alcohol and using illicit drugs a few days ago but would not elaborate further FAMILY HISTORY: Reviewed and none contributory to this admission ALLERGIES: Please see below. REVIEW OF SYSTEMS: Patient distracted and not answering my questions unable to obtain review of systems HOME MEDICATIONS: Please see below. PHYSICAL EXAMINATION: Patient allowed for very limited physical exam Constitutional: Awake avoids eye contact writing notes on the paper ENT: Sclera are clear. Mucosa is moist. Respiratory: Lungs CTA bilaterally. No respiratory distress. Cardiovascular: Regular rate and rhythm Gastrointestinal: Abdomen is soft, non distended, non tender Musculoskeletal: No lower extremity edema. Neurologic: Moving all 4 extremities unable to assess further Skin: No visible rashes LABORATORY DATA: See below. IMAGING: See chart MICROBIOLOGY: Please see below. ASSESSMENT/PLAN Medical evaluation for patient admitted to inpatient mental health unit. Patient is doing well and has no complaints. Follow-up with PCP after discharge. Follow- up with recommendations and management from psychiatry. AST and ALT was noted to be elevated. I recommend primary team obtain Hep B/C/and repeat CMP tomorrow. Psychiatrist should review psychiatric medications to make they do not affect liver function and address drug choice and dose as they deem appropriate. A [facility] Hospitalist Vital Signs Vital Signs Date Time Temp Pulse Resp B/P (MAP) Pulse Ox O2 Delivery O2 Flow Rate FiO2 04/20/21 08:16 Room Air 04/19/21 14:02 97.1 79 18 130/88 (102) 99 Home Medications No Active Prescriptions or Reported Meds Allergies Coded Allergies: PERFUMES (Verified Allergy, Unknown, 09/22/20) A-FIB/CHADSVASC A-FIB History Current/History of A-Fib/PAF?: No YOUSENIKKIE Zuniga MD Apr 20, 2021 13:30
[2021-04-21 06:18] VITALS: BP 116/63
[2021-04-21 08:15] LABS: ALBUMIN 3.6 GM/DL (3.2-5.2); ALT/SGPT 352 U/L (12-78); BILIRUBIN,TOTAL 0.6 MG/DL (0.2-1.0); BLOOD UREA NITROGEN 12 MG/DL (7-18); CALCIUM LEVEL 9.7 MG/DL (8.5-10.1); CARBON DIOXIDE LEVEL 32 MEQ/L (21-32); CHLORIDE LEVEL 105 MEQ/L (98-107); CPK CREATINE PHOSPHOKINASE 455 U/L (39-308); CREATININE FOR GFR 1.02 MG/DL (0.70-1.30); GLOMERULAR FILTRATION RATE > 60.0 (>60); GLUCOSE, FASTING 75 MG/DL (70-100); POTASSIUM SERUM 4.4 MEQ/L (3.5-5.1); SODIUM LEVEL 140 MEQ/L (136-145); TOTAL PROTEIN 7.6 GM/DL (6.4-8.2)
[2021-04-21] MEDS: NICOTINE 21MG/24HR 1 EA TRANSDERMAL TD SCH (09:00)
--- NOTE | 2021-04-21 09:12 | MHIPNPDOC ---
[facility] Progress Note Progress Note DATE OF SERVICE: 04/21/21 Patient is very superficial and evasive on approach and is avoiding eye contact and pretending that he is reading some papers. He is cooperating with the medicine and maintaining good control without any acting out behavior but appears very preoccupied and somewhat regressed. He is not offering a new c omplaint and doesn't appear to be in any acute distress. HISTORY: . VITAL SIGNS: See below. NEW TEST RESULTS: . CURRENT MEDICATIONS: See below. MENTAL STATUS EXAMINATION: Patient is a 41-year old male, who is in bed and is in control.. Speech: Is , not very relevant and not productive. Language skills are , poor. Thought processes including: , Superficial, evasive. Thought content: Denies any problem. Abstract reasoning, and computation: poor. Description of associations: , Not responding appropriately. Description of abnormal or psychotic thoughts: Appears distracted and indifferent. Judgment: poor. Insight: poor]. Orientation: Appears oriented . Recent and remote memory: poor. Attention span and concentration: poor. Language: . Fund of knowledge: . Mood: Does not appear in any acute distress. Affect: Blunted and superficial. DIAGNOSES: 1. . Chronic schizophrenia 2. . History of polysubstance abuse 3. . Intellectual limitations ASSESSMENT:More significant change, but no acting out behavior MANAGEMENT PLAN: Continue the current treatment for stabilization . TIME SPENT: 15 ] minutes. Vital Signs Vital Signs Date Time Temp Pulse Resp B/P (MAP) Pulse Ox O2 Delivery O2 Flow Rate FiO2 04/21/21 08:21 Room Air 04/21/21 06:18 98.2 108 18 116/63 (80) 97 Laboratory Data 24H Labs Laboratory Tests 2 04/21/21 07:27: Anion Gap 3L, Glomerular Filtration Rate > 60.0, Calcium Level 9.7, Total Bilirubin 0.6, Aspartate Amino Transf (AST/SGOT) 45H, Alanine Aminotransferase (ALT/SGPT) 352H, Alkaline Phosphatase 129H, Total Creatine Kinase 455H, Total Protein 7.6, Albumin 3.6, Albumin/Globulin Ratio 0.9 CBC/BMP Laboratory Tests 04/21/21 07:27 Current Medications Current Medications Medications (Trade) Dose Ordered Sig/Simone Route PRN Reason Start Time Stop Time Status Last Admin Dose Admin Acetaminophen (Tylenol Tab) 650 mg Q6HP PRN PO HEADACHE or MILD DISCOMFORT 04/19/21 12:05 Al Hydrox/Mg Hydrox/Simethicone (Mylanta) 30 ml Q4HP PRN PO HEARTBURN/INDIGESTION 04/19/21 12:05 Benztropine Mesylate (Cogentin) 0.5 mg BIDP PRN PO EPS 04/19/21 18:05 Haloperidol (Haldol) 5 mg Q8HP PRN PO AGITATION 04/19/21 18:05 Haloperidol (Haldol) 5 mg TID PO 04/19/21 21:00 04/20/21 21:44 Home Med (Med Rec Complete!) ASDIRECTED XX 04/19/21 06:40 04/19/21 06:41 DC Lorazepam (Ativan) 2 mg Q8HP PRN PO AGITATION 04/19/21 18:05 Magnesium Hydroxide (Milk Of Magnesia) 30 ml DAILYPRN PRN PO CONSTIPATION 04/19/21 12:05 Nicotine (Nicoderm Cq 21mg) 1 patch DAILY TD 04/19/21 09:00 Olanzapine (ZyPREXA ZYDIS) 5 mg Q6HP PRN PO ANXIETY/AGITATION 04/19/21 12:05 04/19/21 18:08 DC Paliperidone (Invega) 3 mg QHS PO 04/19/21 21:00 04/19/21 18:08 DC Trazodone HCl (Desyrel) 50 mg QHSP PRN PO INSOMNIA 04/19/21 12:05 Allergies Coded Allergies: PERFUMES (Verified Allergy, Unknown, 09/22/20) ARCADIO SHAH M.D. Apr 21, 2021 09:12
[2021-04-21] MEDS: haloperidoL 5 MG TAB PO SCH ×3 (09:18→22:00)
[2021-04-22 06:34] VITALS: BP 111/74
[2021-04-22] MEDS: NICOTINE 21MG/24HR 1 EA TRANSDERMAL TD SCH (08:51)
[2021-04-22] MEDS: haloperidoL 5 MG TAB PO SCH (08:51)
[2021-04-22] MEDS ORDERED: haloperidoL 5 MG TAB PO ONE (10:00)
--- NOTE | 2021-04-22 13:16 | MHIPNPDOC ---
[facility] Progress Note Progress Note DATE OF SERVICE: 04/22/21 HISTORY: Patient is a 41 -year-old Single, Intellectually Disabled, Domiciled , male, who self-presented to the emergency department with reports that he is feeling suicidal. He currently does not have a plan. This patient is well-known to this facility with over 20+ admissions since 2010. . He has had multiple psychiatric admissions since the age of 16. His last admission was . At that time he was admitted to my service with a diagnosis of schizophrenia, paranoid type. Patient often presents to the ED with suicidal ideations, severe agitation and internal stimuli. On this occasion, he is presenting similarly with internal stimuli, responding to them and not acknowledging why he is here, states "I'm not talking to anyone., " PER ED REPORT: HISTORY OF THE PRESENT ILLNESS: Patient is a 41 -year-old Single, Intellectually Disabled, Domiciled , male, who self Pt self-presented to the ED due to SI. Pt states "I am suicidal." He states that he has SI with no plan. Pt denies HI. He denies both AH & VH. However, he is noted to be talking & laughing to himself. He appears to be responding to internal stimuli. Pt states that he is not depressed. He states that he uses "weed & quan" & that he drinks "a little bit." Pt states that he needs to be admitted. He refused to answer any further questions. Pt is noted to be unkempt & malodorous. His speech is soft & mumbled. His affect is flat. Pt has a hx of one suicide attempt several years ago via cutting. He does not have a hx of self-harm. Pt has a long hx of schizophrenia with multiple admissions. He has OP tx at [facility], but it is unknown whether or not pt has been compliant with tx or meds. Pt has a hx of abusing alcohol, MJ, quan, & crack cocaine. His tox screen was positive for cannabis. VITAL SIGNS: See below. CURRENT MEDICATIONS: See below. MENTAL STATUS EXAMINATION: Patient is a 41 -year-old Single, Intellectually Disabled, Domiciled , male, who self-presented to the emergency department with reports that he is feeling suicidal. Speech: Is limited, minimal responses Speech: Is , not very relevant and not productive. Language skills are minimal Thought processes including: Guarded evasive. Thought content: Denies depression and anxiety Abstract reasoning, and computation: poor. Description of associations: , Not responding appropriately. Description of abnormal or psychotic thoughts: Appears distracted and indifferent. Judgment: poor. Insight: poor Orientation: A +O x 2 Recent and remote memory: poor. Attention span and concentration: poor. Language: intact Fund of knowledge: Below average Mood: Euthymic but mildly irritable. Affect: Flat/Blunted DIAGNOSES: Schizophrenia, paranoid type Intellectually disabled Stimulant use disorder Alcohol use disorder Cannabis use disorder Nicotine use disorder ASSESSMENT: Patient denies that he was suicidal. He is very guarded and superficial. Not receptive to an interview, was dismissive. Writing words on a piece of paper and stating he doesn't have a need to speak with provider. MANAGEMENT PLAN: Patient will only take medications in AM. Haldol 5 mg BID changed to Haldol 10 mg AM, will consider Haldol Decanoate when patient is more agreeable TIME SPENT: 15 minutes. Vital Signs Vital Signs Date Time Temp Pulse Resp B/P (MAP) Pulse Ox O2 Delivery O2 Flow Rate FiO2 04/22/21 06:34 98.5 83 16 111/74 (86) 98 Room Air Current Medications Current Medications Medications (Trade) Dose Ordered Sig/Simone Route PRN Reason Start Time Stop Time Status Last Admin Dose Admin Acetaminophen (Tylenol Tab) 650 mg Q6HP PRN PO HEADACHE or MILD DISCOMFORT 04/19/21 12:05 Al Hydrox/Mg Hydrox/Simethicone (Mylanta) 30 ml Q4HP PRN PO HEARTBURN/INDIGESTION 04/19/21 12:05 Benztropine Mesylate (Cogentin) 0.5 mg BIDP PRN PO EPS 04/19/21 18:05 Haloperidol (Haldol) 5 mg Q8HP PRN PO AGITATION 04/19/21 18:05 Haloperidol (Haldol) 5 mg TID PO 04/19/21 21:00 04/22/21 09:01 DC 04/22/21 08:51 Haloperidol (Haldol) 10 mg DAILY PO 04/23/21 09:00 Home Med (Med Rec Complete!) ASDIRECTED XX 04/19/21 06:40 04/19/21 06:41 DC Lorazepam (Ativan) 2 mg Q8HP PRN PO AGITATION 04/19/21 18:05 Magnesium Hydroxide (Milk Of Magnesia) 30 ml DAILYPRN PRN PO CONSTIPATION 04/19/21 12:05 Nicotine (Nicoderm Cq 21mg) 1 patch DAILY TD 04/19/21 09:00 Olanzapine (ZyPREXA ZYDIS) 5 mg Q6HP PRN PO ANXIETY/AGITATION 04/19/21 12:05 04/19/21 18:08 DC Paliperidone (Invega) 3 mg QHS PO 04/19/21 21:00 04/19/21 18:08 DC Trazodone HCl (Desyrel) 50 mg QHSP PRN PO INSOMNIA 04/19/21 12:05 Allergies Coded Allergies: PERFUMES (Verified Allergy, Unknown, 09/22/20) KRYSTIN IRWIN NP Apr 22, 2021 13:11
[2021-04-22 16:09] VITALS: BP 110/56
[2021-04-22 16:13] VITALS: BP 119/86
[2021-04-22 17:41] LABS: HEPATITIS B SURFACE ANTIBODY POSITIVE (POSITIVE)
[2021-04-22 17:51] LABS: HEPATITIS B SURFACE ANTIGEN NEGATIVE (NEGATIVE)
[2021-04-22 19:03] LABS: HEP C VIRUS AB INDEX SOURCE PT > 11.0 INDEX (0.0-0.8)
[2021-04-23 06:07] VITALS: BP 103/71
[2021-04-23 07:13] LABS: HEPATITIS B CORE ANTIBODY IGG Negative (Negative)
[2021-04-23] MEDS: NICOTINE 21MG/24HR 1 EA TRANSDERMAL TD SCH (09:00)
--- NOTE | 2021-04-23 10:31 | MHIPNPDOC ---
[facility] Progress Note Progress Note DATE OF SERVICE: 04/23/21 HISTORY: Patient is a 41 -year-old Single, Intellectually Disabled, Domiciled , male, who self-presented to the emergency department with reports that he is feeling suicidal. He currently does not have a plan. This patient is well-known to this facility with over 20+ admissions since 2010. . He has had multiple psychiatric admissions since the age of 16. His last admission was . At that time he was admitted to my service with a diagnosis of schizophrenia, paranoid type. Patient often presents to the ED with suicidal ideations, severe agitation and internal stimuli. On this occasion, he is presenting similarly with internal stimuli, responding to them and not acknowledging why he is here, states "I'm not talking to anyone., " PER ED REPORT: HISTORY OF THE PRESENT ILLNESS: Patient is a 41 -year-old Single, Intellectually Disabled, Domiciled , male, who self Pt self-presented to the ED due to SI. Pt states "I am suicidal." He states that he has SI with no plan. Pt denies HI. He denies both AH & VH. However, he is noted to be talking & laughing to himself. He appears to be responding to internal stimuli. Pt states that he is not depressed. He states that he uses "weed & quan" & that he drinks "a little bit." Pt states that he needs to be admitted. He refused to answer any further questions. Pt is noted to be unkempt & malodorous. His speech is soft & mumbled. His affect is flat. Pt has a hx of one suicide attempt several years ago via cutting. He does not have a hx of self-harm. Pt has a long hx of schizophrenia with multiple admissions. He has OP tx at [facility], but it is unknown whether or not pt has been compliant with tx or meds. Pt has a hx of abusing alcohol, MJ, quan, & crack cocaine. His tox screen was positive for cannabis. VITAL SIGNS: See below. CURRENT MEDICATIONS: See below. MENTAL STATUS EXAMINATION: Patient is a 41 -year-old Single, Intellectually Disabled, Domiciled , male, who self-presented to the emergency department with reports that he is feeling suicidal. Speech: Is limited, minimal responses Speech: Is inaudible and impoverished. Minimal responses Language skills are minimal Thought processes including: Guarded evasive. Thought content: Denies depression and anxiety Abstract reasoning, and computation: poor. Description of associations: , Not responding appropriately. Description of abnormal or psychotic thoughts: Appears distracted and indifferent. Speaking to self, writing on numerous papers Judgment: poor. Insight: poor Orientation: A +O x 2 Recent and remote memory: poor. Attention span and concentration: poor. Language: intact Fund of knowledge: Below average Mood: Euthymic but mildly irritable. Affect: Flat/Blunted DIAGNOSES: Schizophrenia, paranoid type Intellectually disabled Stimulant use disorder Alcohol use disorder Cannabis use disorder Nicotine use disorder ASSESSMENT: Attempted to meet with patient. He is on the bed writing all over papers, responding to internal stimuli. His responses are nonsensical and irrelevant. He appears mildly irritable and agitated. When pushed for more meaningful conversation, patient stated clearly "I don't need to talk to you." Patient has presented similarly and often is very agitated and irritable. When he stabilizes he is more conversant and less disengaged. Patient is not stable for discharge at this time MANAGEMENT PLAN: Continue all medications, will discharge when stable TIME SPENT: 15 minutes. Vital Signs Vital Signs Date Time Temp Pulse Resp B/P (MAP) Pulse Ox O2 Delivery O2 Flow Rate FiO2 04/23/21 06:07 98.4 61 12 103/71 (82) 100 Room Air Current Medications Current Medications Medications (Trade) Dose Ordered Sig/Simone Route PRN Reason Start Time Stop Time Status Last Admin Dose Admin Acetaminophen (Tylenol Tab) 650 mg Q6HP PRN PO HEADACHE or MILD DISCOMFORT 04/19/21 12:05 Al Hydrox/Mg Hydrox/Simethicone (Mylanta) 30 ml Q4HP PRN PO HEARTBURN/INDIGESTION 04/19/21 12:05 Benztropine Mesylate (Cogentin) 0.5 mg BIDP PRN PO EPS 04/19/21 18:05 Haloperidol (Haldol) 5 mg Q8HP PRN PO AGITATION 04/19/21 18:05 Haloperidol (Haldol) 5 mg TID PO 04/19/21 21:00 04/22/21 09:01 DC 04/22/21 08:51 Haloperidol (Haldol) 10 mg DAILY PO 04/23/21 09:00 Home Med (Med Rec Complete!) ASDIRECTED XX 04/19/21 06:40 04/19/21 06:41 DC Lorazepam (Ativan) 2 mg Q8HP PRN PO AGITATION 04/19/21 18:05 Magnesium Hydroxide (Milk Of Magnesia) 30 ml DAILYPRN PRN PO CONSTIPATION 04/19/21 12:05 Nicotine (Nicoderm Cq 21mg) 1 patch DAILY TD 04/19/21 09:00 Olanzapine (ZyPREXA ZYDIS) 5 mg Q6HP PRN PO ANXIETY/AGITATION 04/19/21 12:05 04/19/21 18:08 DC Paliperidone (Invega) 3 mg QHS PO 04/19/21 21:00 04/19/21 18:08 DC Trazodone HCl (Desyrel) 50 mg QHSP PRN PO INSOMNIA 04/19/21 12:05 Allergies Coded Allergies: PERFUMES (Verified Allergy, Unknown, 09/22/20) KRYSTIN IRWIN NP Apr 23, 2021 10:31
[2021-04-24 05:58] VITALS: BP 154/98
[2021-04-24] MEDS: NICOTINE 21MG/24HR 1 EA TRANSDERMAL TD SCH (08:57)
--- NOTE | 2021-04-24 11:47 | MHIPNPDOC ---
[facility] Progress Note Progress Note DATE OF SERVICE: 04/24/21 HISTORY: Patient is a 41 -year-old Single, Intellectually Disabled, Domiciled , male, who self-presented to the emergency department with reports that he is feeling suicidal. He currently does not have a plan. This patient is well-known to this facility with over 20+ admissions since 2010. . He has had multiple psychiatric admissions since the age of 16. His last admission was . At that time he was admitted to my service with a diagnosis of schizophrenia, paranoid type. Patient often presents to the ED with suicidal ideations, severe agitation and internal stimuli. On this occasion, he is presenting similarly with internal stimuli, responding to them and not acknowledging why he is here, states "I'm not talking to anyone., " PER ED REPORT: HISTORY OF THE PRESENT ILLNESS: Patient is a 41 -year-old Single, Intellectually Disabled, Domiciled , male, who self Pt self-presented to the ED due to SI. Pt states "I am suicidal." He states that he has SI with no plan. Pt denies HI. He denies both AH & VH. However, he is noted to be talking & laughing to himself. He appears to be responding to internal stimuli. Pt states that he is not depressed. He states that he uses "weed & quan" & that he drinks "a little bit." Pt states that he needs to be admitted. He refused to answer any further questions. Pt is noted to be unkempt & malodorous. His speech is soft & mumbled. His affect is flat. Pt has a hx of one suicide attempt several years ago via cutting. He does not have a hx of self-harm. Pt has a long hx of schizophrenia with multiple admissions. He has OP tx at [facility], but it is unknown whether or not pt has been compliant with tx or meds. Pt has a hx of abusing alcohol, MJ, quan, & crack cocaine. His tox screen was positive for cannabis. VITAL SIGNS: See below. CURRENT MEDICATIONS: See below. MENTAL STATUS EXAMINATION: Patient is a 41 -year-old Single, Intellectually Disabled, Domiciled , male, who self-presented to the emergency department with reports that he is feeling suicidal. Speech: Is limited, minimal responses Speech: Is nonsensical, but normal rate, tone and volume Language skills are minimal Thought processes including: loose Thought content: Denies depression and anxiety Abstract reasoning, and comp utation: poor. Description of associations: , Not responding appropriately. Description of abnormal or psychotic thoughts: Appears distracted and indifferent. Speaking to self, writing on numerous papers Judgment: improving. Insight: improving Orientation: A +O x 2 Recent and remote memory: poor. Attention span and concentration: poor. Language: intact Fund of knowledge: Below average Mood: Euthymic but mildly irritable. Affect: Flat/Blunted DIAGNOSES: Schizophrenia, paranoid type Intellectually disabled Stimulant use disorder Alcohol use disorder Cannabis use disorder Nicotine use disorder ASSESSMENT: Patient appears to be responding to medication as he was agreeable to interview. Upon arrival to his room who is quite cooperative and engaged in the interview. He was smiling on approach had good eye contact his demeanor was animated and happy. The patient was found writing notes. This patient is very familiar to me in the past, initially he comes in very agitated, has poor eye contact, and has a very irritable demeanor. When he begins to improve his eye contact is maintained, his speech improves and he is agreeable to interviews. He still has nonsensical speech but he appears to be less symptomatic. Patient was unable to tell me in his initial interview what medications he was taking and had stated that he was not taking any medications. I started him on Haldol as this was his regimen on his last admission. Patient is due for Invega Sustenna at the end of the month, I have discontinued the Haldol and we are resuming Risperdal in order for patient to receive Invega Sustenna at the end of the month. The patient is agreeable to staying a few more days in order for the titration to take effect MANAGEMENT PLAN: Continue all medications, received information from outpatient that patient is due for Invega Sustenna at the end of the month, discontinued Haldol and restarted on Risperdal. Patient to receive Invega Sustenna in a few days TIME SPENT: 25 minutes. Vital Signs Vital Signs Date Time Temp Pulse Resp B/P (MAP) Pulse Ox O2 Delivery O2 Flow Rate FiO2 04/24/21 05:58 97.2 64 18 154/98 (116) 99 Room Air Current Medications Current Medications Medications (Trade) Dose Ordered Sig/Simone Route PRN Reason Start Time Stop Time Status Last Admin Dose Admin Acetaminophen (Tylenol Tab) 650 mg Q6HP PRN PO HEADACHE or MILD DISCOMFORT 04/19/21 12:05 Al Hydrox/Mg Hydrox/Simethicone (Mylanta) 30 ml Q4HP PRN PO HEARTBURN/INDIGESTION 04/19/21 12:05 Benztropine Mesylate (Cogentin) 0.5 mg BIDP PRN PO EPS 04/19/21 18:05 Haloperidol (Haldol) 5 mg Q8HP PRN PO AGITATION 04/19/21 18:05 Haloperidol (Haldol) 5 mg TID PO 04/19/21 21:00 04/22/21 09:01 DC 04/22/21 08:51 Haloperidol (Haldol) 10 mg DAILY PO 04/23/21 09:00 04/24/21 08:57 Home Med (Med Rec Complete!) ASDIRECTED XX 04/19/21 06:40 04/19/21 06:41 DC Lorazepam (Ativan) 2 mg Q8HP PRN PO AGITATION 04/19/21 18:05 Magnesium Hydroxide (Milk Of Magnesia) 30 ml DAILYPRN PRN PO CONSTIPATION 04/19/21 12:05 Nicotine (Nicoderm Cq 21mg) 1 patch DAILY TD 04/19/21 09:00 04/24/21 08:57 Olanzapine (ZyPREXA ZYDIS) 5 mg Q6HP PRN PO ANXIETY/AGITATION 04/19/21 12:05 04/19/21 18:08 DC Paliperidone (Invega) 3 mg QHS PO 04/19/21 21:00 04/19/21 18:08 DC Trazodone HCl (Desyrel) 50 mg QHSP PRN PO INSOMNIA 04/19/21 12:05 Allergies Coded Allergies: PERFUMES (Verified Allergy, Unknown, 09/22/20) KRYSTIN IRWIN NP Apr 24, 2021 11:47
[2021-04-24 16:02] VITALS: BP 104/69
[2021-04-24] MEDS: risperiDONE 2 MG TAB PO SCH (23:30)
[2021-04-25] MEDS: risperiDONE 2 MG TAB PO SCH ×2 (09:14→20:24)
[2021-04-25] MEDS: NICOTINE 21MG/24HR 1 EA TRANSDERMAL TD SCH (09:14)
--- NOTE | 2021-04-25 12:27 | MHIPNPDOC ---
[facility] Progress Note Progress Note DATE OF SERVICE: 04/25/21 HISTORY: Patient is a 41 -year-old Single, Intellectually Disabled, Domiciled , male, who self-presented to the emergency department with reports that he is feeling suicidal. He currently does not have a plan. This patient is well-known to this facility with over 20+ admissions since 2010. . He has had multiple psychiatric admissions since the age of 16. His last admission was . At that time he was admitted to my service with a diagnosis of schizophrenia, paranoid type. Patient often presents to the ED with suicidal ideations, severe agitation and internal stimuli. On this occasion, he is presenting similarly with internal stimuli, responding to them and not acknowledging why he is here, states "I'm not talking to anyone., " PER ED REPORT: HISTORY OF THE PRESENT ILLNESS: Patient is a 41 -year-old Single, Intellectually Disabled, Domiciled , male, who self Pt self-presented to the ED due to SI. Pt states "I am suicidal." He states that he has SI with no plan. Pt denies HI. He denies both AH & VH. However, he is noted to be talking & laughing to himself. He appears to be responding to internal stimuli. Pt states that he is not depressed. He states that he uses "weed & quan" & that he drinks "a little bit." Pt states that he needs to be admitted. He refused to answer any further questions. Pt is noted to be unkempt & malodorous. His speech is soft & mumbled. His affect is flat. Pt has a hx of one suicide attempt several years ago via cutting. He does not have a hx of self-harm. Pt has a long hx of schizophrenia with multiple admissions. He has OP tx at [facility], but it is unknown whether or not pt has been compliant with tx or meds. Pt has a hx of abusing alcohol, MJ, quan, & crack cocaine. His tox screen was positive for cannabis. VITAL SIGNS: See below. CURRENT MEDICATIONS: See below. MENTAL STATUS EXAMINATION: Patient is a 41 -year-old Single, Intellectually Disabled, Domiciled , male, who self-presented to the emergency department with reports that he is feeling suicidal. Speech: Is limited, minimal responses but appears to be agreeable to speaking Speech: normal rate, tone and volume Language skills are minimal Thought processes including: loose Thought content: Denies depression and anxiety Abstract reasoning, and computation: poor. Description of associations: , Not responding appropriately. Description of abnormal or psychotic thoughts: Appears distracted and indifferent. Speaking to self, writing on numerous papers Judgment: fair Insight: fair Orientation: A +O x 2 Recent and remote memory: poor. Attention span and concentration: poor. Language: intact Fund of knowledge: Below average Mood: Animated. Affect: Bright DIAGNOSES: Schizophrenia, paranoid type Intellectually disabled Stimulant use disorder Alcohol use disorder Cannabis use disorder Nicotine use disorder ASSESSMENT: Patient's affect and mood seems to be improving. He is smiling upon approach, found in his room writing letters. Patient is intellectually disabled and although he is writing he is not writing anything that is logical. This patient is familiar to me and when he starts writing this is an indication that he is stabilizing. Denies any depression or anxiety, he is not observed to be psychotic delusional or paranoid. PLAN: Continue all medications, Invega Sustenna due tomorrow. May consider discharging patient tomorrow. TIME SPENT: 25 minutes. Vital Signs Vital Signs Date Time Temp Pulse Resp B/P (MAP) Pulse Ox O2 Delivery O2 Flow Rate FiO2 04/24/21 16:02 98.4 67 16 104/69 (81) 100 Room Air Current Medications Current Medications Medications (Trade) Dose Ordered Sig/Simone Route PRN Reason Start Time Stop Time Status Last Admin Dose Admin Acetaminophen (Tylenol Tab) 650 mg Q6HP PRN PO HEADACHE or MILD DISCOMFORT 04/19/21 12:05 Al Hydrox/Mg Hydrox/Simethicone (Mylanta) 30 ml Q4HP PRN PO HEARTBURN/INDIGESTION 04/19/21 12:05 Benztropine Mesylate (Cogentin) 0.5 mg BIDP PRN PO EPS 04/19/21 18:05 Haloperidol (Haldol) 5 mg Q8HP PRN PO AGITATION 04/19/21 18:05 Haloperidol (Haldol) 5 mg TID PO 04/19/21 21:00 04/22/21 09:01 DC 04/22/21 08:51 Haloperidol (Haldol) 10 mg DAILY PO 04/23/21 09:00 04/24/21 11:35 DC 04/24/21 08:57 Home Med (Med Rec Complete!) ASDIRECTED XX 04/19/21 06:40 04/19/21 06:41 DC Lorazepam (Ativan) 2 mg Q8HP PRN PO AGITATION 04/19/21 18:05 Magnesium Hydroxide (Milk Of Magnesia) 30 ml DAILYPRN PRN PO CONSTIPATION 04/19/21 12:05 Miscellaneous (Unresolved Clarification Entry) SEE LABEL COMMENTS DAILY XX 04/24/21 09:00 Nicotine (Nicoderm Cq 21mg) 1 patch DAILY TD 04/19/21 09:00 04/25/21 09:14 Olanzapine (ZyPREXA ZYDIS) 5 mg Q6HP PRN PO ANXIETY/AGITATION 04/19/21 12:05 04/19/21 18:08 DC Paliperidone (Invega) 3 mg QHS PO 04/19/21 21:00 04/19/21 18:08 DC Risperidone (RisperDAL) 2 mg BID PO 04/24/21 21:00 04/25/21 09:14 Trazodone HCl (Desyrel) 50 mg QHSP PRN PO INSOMNIA 04/19/21 12:05 Allergies Coded Allergies: PERFUMES (Verified Allergy, Unknown, 09/22/20) KRYSTIN IRWIN NP Apr 25, 2021 09:40
[2021-04-25] MEDS ORDERED: PALIPERIDONE PALMITATE 234MG/1.5ML INJ (INVEGA)(FREE PSY INPT ONLY) IM ONE (15:00)
[2021-04-25 18:55] VITALS: BP 115/64
[2021-04-26 06:00] VITALS: BP 128/68
[2021-04-26] MEDS: NICOTINE 21MG/24HR 1 EA TRANSDERMAL TD SCH (08:05)
[2021-04-26] MEDS: risperiDONE 2 MG TAB PO SCH (08:05)
[2021-04-26] MEDS ORDERED: INVE234I IM (09:05)
[2021-04-26] MEDS ORDERED: RISP-9 PO (09:05)
[2021-04-26] MEDS ORDERED: BENZ-52 PO (09:05)
[2021-04-26] MEDS ORDERED: NICO21PAT TD (09:05)
--- NOTE | 2021-04-26 10:57 | MHDSPDOC ---
[facility] Discharge Summary Discharge Summary DATE OF ADMISSION: Apr 19, 2021 at 12:04 DATE OF DISCHARGE: April 26, 2021 at 1050 DISCHARGE DIAGNOSES: Schizophrenia, paranoid type Intellectually disabled Stimulant use disorder Alcohol use disorder Cannabis use disorder Nicotine use disorder REASON FOR ADMISSION: : Patient is a 41 -year-old Single, Intellectually Disabled, Domiciled , male, who self-presented to the emergency department with reports that he is feeling suicidal. He currently does not have a plan. This patient is well-known to this facility with over 20+ admissions since 2010. . He has had multiple psychiatric admissions since the age of 16. His last admission was . At that time he was admitted to my service with a diagnosis of schizophrenia, paranoid type. Patient often presents to the ED with suicidal ideations, severe agitation and internal stimuli. On this occasion, he is presenting similarly with internal stimuli, responding to them and not acknowledging why he is here, states "I'm not talking to anyone., " PER ED REPORT: HISTORY OF THE PRESENT ILLNESS: Patient is a 41 -year-old Single, Intellectually Disabled, Domiciled , male, who self Pt self-presented to the ED due to SI. Pt states "I am suicidal." He states that he has SI with no plan. Pt denies HI. He denies both AH & VH. However, he is noted to be talking & laughing to himself. He appears to be responding to internal stimuli. Pt states that he is not depressed. He states that he uses "weed & quan" & that he drinks "a little bit." Pt states that he needs to be a dmitted. He refused to answer any further questions. Pt is noted to be unkempt & malodorous. His speech is soft & mumbled. His affect is flat. Pt has a hx of one suicide attempt several years ago via cutting. He does not have a hx of self-harm. Pt has a long hx of schizophrenia with multiple admissions. He has OP tx at [facility], but it is unknown whether or not pt has been compliant with tx or meds. Pt has a hx of abusing alcohol, MJ, quan, & crack cocaine. His tox screen was positive for cannabis. VITAL SIGNS: See below. CONSULTANTS INVOLVED: See Medical H + P by Hospitalist TREATMENT AND PROGRESS ON THE UNIT: Patient was admitted to the [facility] on a 9.39 legal status he was afforded the following treatment modalities: 1) Individual Therapy 2) Group Therapy 3) Medication Management 4) Milieu Therapy 5) Safe Environment HOSPITAL COURSE: Patient was admitted to [facility] for reporting suicidal ideation. It was unclear whether he had been compliant on his medications. The patient is well known to this provider and he does have a long history of non-compliance and heavy substance use. We resumed Haldol which was what he was taking on his last admission, the outpatient clinic had reported he was due for his Invega Sustenna injection at the end of the month. He was started on Risperdal for a few days and given the Invega Sustenna during this hospitalization. He is at his baseline based on his bright mood and affect and smiling. He is not longer irritable and agitated which is a good sign that the patient is at his baseline. DISCHARGE ASSESSMENT: In today's interview, patient is alert and oriented, pts dress is appropriate. Hygiene and grooming is well-kempt. Smiles on approach and is pleasant and engaged in the interview. Denies depression and anxiety. Denies suicidal and homicidal ideation, planning or intent. Denies and is not observed with leila, psychotic symptoms of delusions, bizarre thinking, obsessions, paranoia, ruminations illogical thoughts, flight of ideas or having poor insight and judgement. Patient has normal mentation, declines further hospitalization on a voluntary status and meets criteria for discharge today. Patient encouraged to return to hospital if symptoms worsen or change and encouraged to call unit if he/she/they needs to speak to provider for questions regarding medications or care. MENTAL STATUS EXAMINATION ON DISCHARGE: Patient is a 41 -year-old Single, Intellectually Disabled, Domiciled , male, who self-presented to the emergency department with reports that he is feeling suicidal. Speech: Is limited, minimal responses but appears to be agreeable to speaking Speech: normal rate, tone and volume Language skills are minimal Thought processes including: loose Thought content: Denies depression and anxiety Abstract reasoning, and computation: poor. Description of associations: , Not responding appropriately. Description of abnormal or psychotic thoughts: Appears distracted and indifferent. Speaking to self, writing on numerous papers Judgment: fair Insight: fair Orientation: A +O x 2 Recent and remote memory: poor. Attention span and concentration: poor. Language: intact Fund of knowledge: Below average Mood: Animated. Affect: Bright MEDICATIONS ON DISCHARGE: See Medication Reconciliation PLAN/FOLLOWUP ARRANGEMENTS: [facility] The amount of time spent in the coordination of care for this patient was approximately 25 minutes. ETOH/Disorder Med Rx ETOH/DRUG DISORDER RX: Offrd @ d/c & pt refused Vital Signs/I&Os Vital Signs Date Time Temp Pulse Resp B/P (MAP) Pulse Ox O2 Delivery O2 Flow Rate FiO2 04/26/21 06:00 97.8 82 18 128/68 (88) 100 04/24/21 16:02 Room Air Medications Scheduled Nicotine (Nicotine Patch) 21 Mg Patch.td24, 1 PATCH TD DAILY for Nicotine Withdrawal, #7 Paliperidone Palmitate (Invega Sustenna) 234 Mg/1.5 Ml Syringe, 234 MG IM QMONTH for Antipsychotic, #1 Next Injection due 05/23/21 Risperidone (Risperidone) 2 Mg Tablet, 2 MG PO BID for Antipsychotic, #14 Scheduled PRN Benztropine Mesylate (Benztropine Mesylate) 1 Mg Tablet, 0.5 MG PO BIDP PRN for EPS, #14 Allergies Coded Allergies: PERFUMES (Verified Allergy, Unknown, 09/22/20) KRYSTIN IRWIN NP Apr 26, 2021 10:56
== END 2021-04-26 11:09 | disposition home or self-care (01) | DRG 750 ==
LOC: M ED 01:16 → M ED INP 12:04 → M PSY 14:15
PROVIDERS: ADMIT Psychiatry & Neurology Psychiatry; ATTEND Psychiatry & Neurology Psychiatry
DX: F20.0 Paranoid schizophrenia (principal); F79 Unspecified intellectual disabilities; R45.851 Suicidal ideations; Z91.14 Patient's other noncompliance with medication regimen; F15.10 Other stimulant abuse, uncomplicated; F10.10 Alcohol abuse, uncomplicated; F12.10 Cannabis abuse, uncomplicated; F17.200 Nicotine dependence, unspecified, uncomplicated; Z91.5 Personal history of self-harm; Z81.8 Family history of other mental and behavioral disorders; Z20.822 Contact with and (suspected) exposure to COVID-19; Z91.048 Other nonmedicinal substance allergy status

== ENCOUNTER 2021-05-13 18:25 | Emergency (ER) | payer MEDICAID, OTHER ==
[~2021-05-13] VITALS: Ht 175.3 cm; Wt 70.1 kg
[2021-05-13 18:25] VITALS: BP 137/81
[~2021-05-13 18:25] MED LIST changes: +BENZ-52 PO; -OLAN10TA2 PO; +OLAN1TAB20 PO; +RISP-9 PO
== END 2021-05-13 20:30 | disposition left against medical advice (07) ==
LOC: M ED 18:25
DX: Z53.21 Procedure and treatment not carried out due to patient leaving prior to being seen by health care provider (principal)

== ENCOUNTER 2021-05-15 05:12 | Emergency (ER) | payer OTHER ==
[~2021-05-15] VITALS: Ht 175.3 cm; Wt 70.9 kg
[2021-05-15 05:12] VITALS: BP 140/85
[~2021-05-15 05:12] MED LIST changes: -HALO5TA; -HALO5TA PO; +HALO5TAB33; +HALO5TAB33 PO; +NICO1DIS12 TD; +QUET1TAB17 PO; -QUET25TA3 PO; -QUET50TA3; -QUET50TA3 PO; +QUET50TA4; +QUET50TA4 PO; +RISP2TAB32 PO
[2021-05-16] MEDS ORDERED: OLAN1TAB16 PO (00:06)
[2021-05-16] MEDS ORDERED: RISP-9 PO (00:06)
[2021-05-16] MEDS ORDERED: INVE1.75 IM (00:06)
[2021-05-16] MEDS ORDERED: BENZ-52 PO (00:06)
[2021-08-08] MEDS ORDERED: INVE234I SQ (09:34)
[2021-11-08] MEDS ORDERED: PALI1TAB2 PO (07:44)
[2021-11-08] MEDS ORDERED: NICO21PAT TD (07:44)
[2021-12-21] MEDS ORDERED: INVE234I SC (11:33)
[2021-12-25] MEDS ORDERED: PRAZ1CAP PO (12:21)
[2021-12-25] MEDS ORDERED: OLAN1TAB16 PO (12:21)
[2021-12-25] MEDS ORDERED: BENZ-52 PO (12:21)
[2021-12-25] MEDS ORDERED: MED NOTE (12:22)
== END 2021-05-15 06:00 | disposition left against medical advice (07) ==
LOC: M ED 05:12
DX: Z53.21 Procedure and treatment not carried out due to patient leaving prior to being seen by health care provider (principal)

== ENCOUNTER 2021-05-15 23:12 | Emergency (ER) | payer OTHER ==
[~2021-05-15] VITALS: Ht 172.7 cm; Wt 62.8 kg
[~2021-05-15 23:12] MED LIST changes: +HALO5TA; +HALO5TA PO; -HALO5TAB33; -HALO5TAB33 PO; -NICO1DIS12 TD; -QUET1TAB17 PO; +QUET25TA3 PO; +QUET50TA3; +QUET50TA3 PO; -QUET50TA4; -QUET50TA4 PO; -RISP2TAB32 PO
[2021-05-15 23:44] LABS: HEMATOCRIT 41.8 % (42.0-52.0); HEMOGLOBIN 13.8 g/dl (13.5-17.5); MEAN CORPUSCULAR HEMOGLOBIN 30.1 pg (27.0-33.0); MEAN CORPUSCULAR VOLUME 91.1 fl (80.0-96.0); PLATELET COUNT, AUTOMATED 254 10^3/uL (150-450); RED BLOOD COUNT 4.59 10^6/uL (4.30-6.10); WHITE BLOOD COUNT 9.2 10^3/uL (4.0-10.0)
[2021-05-16] MEDS ORDERED: OLAN1TAB16 PO (00:06)
[2021-05-16] MEDS ORDERED: INVE1.75 IM (00:06)
[2021-05-16] MEDS ORDERED: BENZ-52 PO (00:06)
[2021-05-16] MEDS ORDERED: RISP-9 PO (00:06)
[2021-05-16 00:10] LABS: AMPHETAMINES LEVEL URINE POSITIVE (NEGATIVE); BARBITURATES URINE NEGATIVE (NEGATIVE); BENZODIAZEPINES URINE NEGATIVE (NEGATIVE); CANNABINOIDS URINE POSITIVE (NEGATIVE); COCAINE METABOLITE URINE NEGATIVE (NEGATIVE); METHADONE URINE NEGATIVE (NEGATIVE); OPIATES URINE NEGATIVE (NEGATIVE); PHENCYCLIDINE URINE NEGATIVE (NEGATIVE)
[2021-05-16 00:27] LABS: ACETAMINOPHEN LEVEL < 2.0 UG/ML (10.0-30.0); ALBUMIN 3.3 GM/DL (3.2-5.2); ALT/SGPT 46 U/L (12-78); BILIRUBIN,DIRECT 0.1 MG/DL (0.0-0.2); BILIRUBIN,TOTAL 0.4 MG/DL (0.2-1.0); BLOOD UREA NITROGEN 12 MG/DL (7-18); CALCIUM LEVEL 8.7 MG/DL (8.5-10.1); CARBON DIOXIDE LEVEL 25 MEQ/L (21-32); CHLORIDE LEVEL 110 MEQ/L (98-107); CREATININE FOR GFR 0.84 MG/DL (0.70-1.30); ETHYL ALCOHOL (ETHANOL) < 0.003 % (0.000-0.010); GLOMERULAR FILTRATION RATE > 60.0 (>60); GLUCOSE, FASTING 101 MG/DL (70-100); POTASSIUM SERUM 4.3 MEQ/L (3.5-5.1); SALICYLATE LEVEL 3.2 MG/DL (5.0-30.0); SODIUM LEVEL 141 MEQ/L (136-145); THYROID STIMULATING HORMONE 0.924 uIU/ML (0.358-3.740); TOTAL PROTEIN 6.6 GM/DL (6.4-8.2)
[2021-05-16 12:12] VITALS: BP 112/69
== END 2021-05-16 12:14 | disposition home or self-care (01) ==
LOC: M ED 23:12
DX: F19.10 Other psychoactive substance abuse, uncomplicated (principal); F20.9 Schizophrenia, unspecified

== ENCOUNTER 2021-05-17 17:11 | Emergency (ER) | payer OTHER ==
[~2021-05-17] VITALS: Ht 175.3 cm; Wt 72.7 kg
[~2021-05-17 17:11] MED LIST changes: +OLAN1TAB16 PO
[2021-05-17 18:23] LABS: AMPHETAMINES LEVEL URINE NEGATIVE (NEGATIVE); BARBITURATES URINE NEGATIVE (NEGATIVE); BENZODIAZEPINES URINE NEGATIVE (NEGATIVE); CANNABINOIDS URINE POSITIVE (NEGATIVE); COCAINE METABOLITE URINE NEGATIVE (NEGATIVE); METHADONE URINE NEGATIVE (NEGATIVE); OPIATES URINE NEGATIVE (NEGATIVE); PHENCYCLIDINE URINE NEGATIVE (NEGATIVE)
[2021-05-17 21:47] VITALS: BP 135/86
== END 2021-05-17 22:14 | disposition home or self-care (01) ==
LOC: M ED 17:11
DX: F29 Unspecified psychosis not due to a substance or known physiological condition (principal); R45.850 Homicidal ideations; F17.200 Nicotine dependence, unspecified, uncomplicated

== ENCOUNTER 2021-05-25 06:03 | Emergency (ER) | payer OTHER ==
[~2021-05-25] VITALS: Ht 172.7 cm; Wt 70.4 kg
[2021-05-25 06:44] LABS: HEMATOCRIT 41.4 % (42.0-52.0); MEAN CORPUSCULAR HGB CONC 33.8 g/dl (32.0-36.5); MEAN CORPUSCULAR VOLUME 88.7 fl (80.0-96.0); PLATELET COUNT, AUTOMATED 267 10^3/uL (150-450); RED BLOOD COUNT 4.67 10^6/uL (4.30-6.10); WHITE BLOOD COUNT 7.5 10^3/uL (4.0-10.0)
[2021-05-25 07:10] LABS: AMPHETAMINES LEVEL URINE NEGATIVE (NEGATIVE); BARBITURATES URINE NEGATIVE (NEGATIVE); BENZODIAZEPINES URINE NEGATIVE (NEGATIVE); CANNABINOIDS URINE POSITIVE (NEGATIVE); COCAINE METABOLITE URINE NEGATIVE (NEGATIVE); METHADONE URINE NEGATIVE (NEGATIVE); OPIATES URINE NEGATIVE (NEGATIVE); PHENCYCLIDINE URINE NEGATIVE (NEGATIVE)
[2021-05-25 07:20] LABS: ACETAMINOPHEN LEVEL < 2.0 UG/ML (10.0-30.0); ALBUMIN 3.5 GM/DL (3.2-5.2); ALT/SGPT 93 U/L (12-78); BILIRUBIN,DIRECT 0.2 MG/DL (0.0-0.2); BILIRUBIN,TOTAL 0.6 MG/DL (0.2-1.0); BLOOD UREA NITROGEN 10 MG/DL (7-18); CALCIUM LEVEL 8.7 MG/DL (8.5-10.1); CARBON DIOXIDE LEVEL 28 MEQ/L (21-32); CHLORIDE LEVEL 105 MEQ/L (98-107); CREATININE FOR GFR 0.83 MG/DL (0.70-1.30); ETHYL ALCOHOL (ETHANOL) < 0.003 % (0.000-0.010); GLOMERULAR FILTRATION RATE > 60.0 (>60); GLUCOSE, FASTING 74 MG/DL (70-100); POTASSIUM SERUM 3.9 MEQ/L (3.5-5.1); SALICYLATE LEVEL 2.2 MG/DL (5.0-30.0); SODIUM LEVEL 139 MEQ/L (136-145); THYROID STIMULATING HORMONE 0.652 uIU/ML (0.358-3.740)
[2021-05-25 14:55] VITALS: BP 121/79
== END 2021-05-25 14:56 | disposition home or self-care (01) ==
LOC: M ED 06:03
DX: F20.9 Schizophrenia, unspecified (principal); I10 Essential (primary) hypertension; F17.200 Nicotine dependence, unspecified, uncomplicated

== ENCOUNTER 2021-05-29 14:56 | Emergency (ER) | payer OTHER ==
[~2021-05-29] VITALS: Ht 175.3 cm; Wt 70.5 kg
[2021-05-29 15:04] VITALS: BP 140/78
== END 2021-05-29 15:34 | disposition left against medical advice (07) ==
LOC: M ED 14:56
DX: Z53.21 Procedure and treatment not carried out due to patient leaving prior to being seen by health care provider (principal)

== ENCOUNTER 2021-05-30 02:20 | Emergency (ER) | payer OTHER ==
[~2021-05-30] VITALS: Ht 175.3 cm; Wt 75.0 kg
[2021-05-30 02:20] VITALS: BP 120/76
== END 2021-05-30 05:51 | disposition left against medical advice (07) ==
LOC: M ED 02:20
DX: Z53.21 Procedure and treatment not carried out due to patient leaving prior to being seen by health care provider (principal)

== ENCOUNTER 2021-06-03 07:28 | Emergency (ER) | payer OTHER ==
[~2021-06-03] VITALS: Ht 175.3 cm; Wt 73.3 kg
[~2021-06-03 07:28] MED LIST changes: -HALO5TA; -HALO5TA PO; +HALO5TAB33; +HALO5TAB33 PO; +NICO1DIS12 TD; +QUET1TAB17 PO; -QUET25TA3 PO; -QUET50TA3; -QUET50TA3 PO; +QUET50TA4; +QUET50TA4 PO; +RISP2TAB32 PO
[2021-06-03 07:29] VITALS: BP 124/76
[2021-06-04] MEDS ORDERED: [UNRECOGNIZED DRUG - CODE] (17:32)
[2021-08-08] MEDS ORDERED: INVE234I SQ (09:34)
[2021-11-08] MEDS ORDERED: NICO21PAT TD (07:44)
[2021-11-08] MEDS ORDERED: PALI1TAB2 PO (07:44)
[2021-12-21] MEDS ORDERED: INVE234I SC (11:33)
[2021-12-25] MEDS ORDERED: BENZ-52 PO (12:21)
[2021-12-25] MEDS ORDERED: OLAN1TAB16 PO (12:21)
[2021-12-25] MEDS ORDERED: PRAZ1CAP PO (12:21)
[2021-12-25] MEDS ORDERED: MED NOTE (12:22)
== END 2021-06-03 07:37 | disposition left against medical advice (07) ==
LOC: M ED 07:28
DX: Z53.21 Procedure and treatment not carried out due to patient leaving prior to being seen by health care provider (principal)

== ENCOUNTER 2021-06-04 17:17 | Inpatient (IN) | payer MEDICAID, OTHER ==
[~2021-06-04] VITALS: Ht 175.3 cm; Wt 69.7 kg
[~2021-06-04 17:17] MED LIST changes: +HALO5TA; +HALO5TA PO; -HALO5TAB33; -HALO5TAB33 PO; -NICO1DIS12 TD; -RISP2TAB32 PO
[2021-06-04] MEDS ORDERED: [UNRECOGNIZED DRUG - CODE] (17:32)
[2021-06-04 19:07] LABS: HEMATOCRIT 43.2 % (42.0-52.0); HEMOGLOBIN 14.1 g/dl (13.5-17.5); MEAN CORPUSCULAR HEMOGLOBIN 29.9 pg (27.0-33.0); MEAN CORPUSCULAR HGB CONC 32.6 g/dl (32.0-36.5); MEAN CORPUSCULAR VOLUME 91.5 fl (80.0-96.0); PLATELET COUNT, AUTOMATED 262 10^3/uL (150-450); RED BLOOD COUNT 4.72 10^6/uL (4.30-6.10); WHITE BLOOD COUNT 8.5 10^3/uL (4.0-10.0)
[2021-06-04] MEDS ORDERED: HOME MED LIST COMPLETE! XX SCH (19:20)
[2021-06-04 19:23] LABS: AMPHETAMINES LEVEL URINE NEGATIVE (NEGATIVE); BARBITURATES URINE NEGATIVE (NEGATIVE); BENZODIAZEPINES URINE NEGATIVE (NEGATIVE); CANNABINOIDS URINE POSITIVE (NEGATIVE); COCAINE METABOLITE URINE NEGATIVE (NEGATIVE); METHADONE URINE NEGATIVE (NEGATIVE); OPIATES URINE NEGATIVE (NEGATIVE); PHENCYCLIDINE URINE NEGATIVE (NEGATIVE)
[2021-06-04 19:31] LABS: ACETAMINOPHEN LEVEL < 2.0 UG/ML (10.0-30.0); ALBUMIN 3.5 GM/DL (3.2-5.2); ALT/SGPT 48 U/L (12-78); BILIRUBIN,DIRECT 0.2 MG/DL (0.0-0.2); BILIRUBIN,TOTAL 0.7 MG/DL (0.2-1.0); BLOOD UREA NITROGEN 15 MG/DL (7-18); CALCIUM LEVEL 9.2 MG/DL (8.5-10.1); CARBON DIOXIDE LEVEL 30 MEQ/L (21-32); CHLORIDE LEVEL 105 MEQ/L (98-107); CREATININE FOR GFR 0.97 MG/DL (0.70-1.30); ETHYL ALCOHOL (ETHANOL) < 0.003 % (0.000-0.010); GLOMERULAR FILTRATION RATE > 60.0 (>60); GLUCOSE, FASTING 68 MG/DL (70-100); SALICYLATE LEVEL 2.1 MG/DL (5.0-30.0); SODIUM LEVEL 142 MEQ/L (136-145); THYROID STIMULATING HORMONE 0.282 uIU/ML (0.358-3.740)
[2021-06-04] MEDS ORDERED: ACETAMINOPHEN TAB 650MG DOSE (2X325MG) PO PRN (20:40)
[2021-06-04] MEDS ORDERED: traZODone 50 MG TAB PO PRN (20:40)
[2021-06-04] MEDS ORDERED: MAALOX 30 ML SUSP *UDC PO PRN (20:40)
[2021-06-04] MEDS ORDERED: OLANZapine ORAL DISINTEGRATING TAB 5MG PO PRN (20:40)
[2021-06-04] MEDS ORDERED: MOM 30ML SUSPENSION UDC PO PRN (20:40)
[2021-06-04 21:07] LABS: RSV AMPLIFICATION NEGATIVE (NEGATIVE)
[2021-06-05 06:13] VITALS: BP 142/88
[2021-06-05] MEDS ORDERED: haloperidoL 5 MG TAB PO PRN (08:20)
[2021-06-05] MEDS ORDERED: diphenhydrAMINE 50MG CAP PO PRN (08:20)
[2021-06-05] MEDS ORDERED: LORazepam 2 MG/ML VIAL IV PRN (08:20)
[2021-06-05] MEDS ORDERED: LORazepam 1 MG TAB PO PRN (08:40)
--- NOTE | 2021-06-05 09:08 | HPEPDOC ---
[facility] Medical History & Physical Date of Admission Jun 04, 2021 Date of Service: Jun 05, 2021 History and Physical CHIEF COMPLAINT: Routine medical exam HISTORY OF PRESENT ILLNESS: Refused interview and physical exam. information obtained from patient's medical records 41-year-old male with history of schizophrenia concussion hypertension admitted to the inpatient mental health unit due to uncontrolled schizophrenia. Patient refuses interview and physical examination. Review of system could not be obtained due to patient refusal to cooperate. PAST MEDICAL HISTORY: Hypertension concussion schizophrenia PAST SURGICAL HISTORY: Unknown patient refuses to cooperate with interview SOCIAL HISTORY: Previous smoker history of recreational drug use and social alcohol use FAMILY HISTORY: Unknown patient refuses to cooperate with the interview ALLERGIES: Please see below. REVIEW OF SYSTEMS: Could not be obtained. Patient refuses to cooperate with interview HOME MEDICATIONS: Please see below. PHYSICAL EXAMINATION: VITAL SIGNS: See below Patient refuses physical examination LABORATORY DATA: See below. MICROBIOLOGY: Please see below. ASSESSMENT: 41-year-old male with history of schizophrenia concussion hypertension admitted to the inpatient mental health unit due to uncontrolled schizophrenia. Patient refuses interview and physical examination. Review of system could not be obtained due to patient refusal to cooperate. Hypertension Schizophrenia, uncontrolled History of concussion History of recreational drug use Previous tobacco smoker Plan: Patient refuses to cooperate with both interview and physical examination. hospitalist will sign off. please reconsult for any other acute medical issues Vital Signs Vital Signs Date Time Temp Pulse Resp B/P (MAP) Pulse Ox O2 Delivery O2 Flow Rate FiO2 06/05/21 06:13 97.7 76 18 142/88 (106) 97 Room Air Laboratory Data Labs 24H Laboratory Tests 2 06/04/21 18:33: Nucleated Red Blood Cells % (auto) 0.0, Anion Gap 7L, Glomerular Filtration Rate > 60.0, Calcium Level 9.2, Total Bilirubin 0.7, Direct Bilirubin 0.2, Aspartate Amino Transf (AST/SGOT) 36, Alanine Aminotransferase (ALT/SGPT) 48, Alkaline Phosphatase 55, Total Protein 7.0, Albumin 3.5, Albumin/Globulin Ratio 1.0, Thyroid Stimulating Hormone (TSH) 0.282L, Salicylates Level 2.1L, Urine Opiates Screen NEGATIVE, Urine Methadone Screen NEGATIVE, Acetaminophen Level < 2.0L, Urine Barbiturates Screen NEGATIVE, Urine Phencyclidine Screen NEGATIVE, Urine Amphetamines Screen NEGATIVE, Urine Benzodiazepines Screen NEGATIVE, Urine Cocaine Metabolite Screen NEGATIVE, Urine Cannabinoids Screen POSITIVEH, Ethyl Alcohol Level < 0.003 06/04/21 20:17: Coronavirus (COVID-19)(PCR) NEGATIVE, Influenza Type A (RT-PCR) NEGATIVE, Influenza Type B (RT-PCR) NEGATIVE, Respiratory Syncytial Virus (PCR) NEGATIVE CBC/BMP Laboratory Tests 06/04/21 18:33 Home Medications No Active Prescriptions or Reported Meds Allergies Coded Allergies: PERFUMES (Verified Allergy, Unknown, 09/22/20) A-FIB/CHADSVASC A-FIB History Current/History of A-Fib/PAF?: No Current PO Anticoag Therapy: No Age/Risk Factor Scoring CHADSVASC: CHADSVASC Response (Comments) Value Age Risk Factor Age < 65 years old 0 Gender Risk Factor Male 0 Hx of CHF No 0 Hx of HTN Yes 1 Hx of Stroke/TIA/or VTE No 0 Hx of Diabetes No 0 Hx of Vascular Disease No 0 Total 1 Treatment Treatment ordered: NONE REDDY DUPREE MD Jun 05, 2021 09:08
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
[2021-06-05] MEDS: risperiDONE 2 MG TAB PO SCH (20:34)
[2021-06-06 07:17] VITALS: BP 102/57
--- NOTE | 2021-06-06 09:51 | MHIPNPDOC ---
[facility] Progress Note Progress Note DATE OF SERVICE: 06/06/21 The patient is fully cooperated with his medication of risperidone and appears in better spirits and control today. He was smiling appropriately and stated that he is feeling a little better. He admits that he was having difficult time and was feeling very depressed and notes that he needs some rest. He is not as irritable or preoccupied and is more pleasant on approach and admits to having difficult time before coming to hospital but not able to elaborate. HISTORY:. VITAL SIGNS: See below. NEW TEST RESULTS:. CURRENT MEDICATIONS: See below. MENTAL STATUS EXAMINATION: Patient is a 41-year old male, who is in good control. Speech: Is more productive and relevant. Language skills are fair. Thought processes including: Relevant response. Thought content: He is denying any active hallucinations and denies any active suicidal thoughts. Abstract reasoning, and computation: Poor. Description of associations: More productive. Description of abnormal or psychotic thoughts: Denies any command hallucination. Judgment: Poor. Insight: poor]. Orientation: Appears oriented. Recent and remote memory: Fair. Attention span and concentration: Poor. Language:. Fund of knowledge:. Mood: Not appear as angry or irritable admits to feeling depressed. Affect: More animated and appropriate. DIAGNOSES: 1.. Chronic schizophrenia 2.. Intellectual limitation 3.. ASSESSMENT: Cooperating with treatment and in good control MANAGEMENT PLAN: Stabilized with medication and supportive therapy. TIME SPENT: 15 minutes. Vital Signs Vital Signs Date Time Temp Pulse Resp B/P (MAP) Pulse Ox O2 Delivery O2 Flow Rate FiO2 06/06/21 07:17 98.2 67 17 102/57 (72) Room Air 06/05/21 06:13 97 Current Medications Current Medications Medications (Trade) Dose Ordered Sig/Simone Route PRN Reason Start Time Stop Time Status Last Admin Dose Admin Acetaminophen (Tylenol Tab) 650 mg Q6HP PRN PO HEADACHE or MILD DISCOMFORT 06/04/21 20:40 Al Hydrox/Mg Hydrox/Simethicone (Mylanta) 30 ml Q4HP PRN PO HEARTBURN/INDIGESTION 06/04/21 20:40 Diphenhydramine HCl (Benadryl) 50 mg Q6HP PRN PO ITCHING 06/05/21 08:20 Haloperidol (Haldol) 5 mg Q6HP PRN PO AGITATION 06/05/21 08:20 Home Med (Med Rec Complete!) ASDIRECTED XX 06/04/21 19:20 06/04/21 19:18 DC Lorazepam (Ativan) 1 mg Q6HP PRN IV ANXIETY/AGITATION 06/05/21 08:20 UNV Lorazepam (Ativan) 1 mg Q6HP PRN PO ANXIETY/Agitation 06/05/21 08:40 Magnesium Hydroxide (Milk Of Magnesia) 30 ml DAILYPRN PRN PO CONSTIPATION 06/04/21 20:40 Olanzapine (ZyPREXA ZYDIS) 5 mg Q4HP PRN PO AGITATION 06/04/21 20:40 Risperidone (RisperDAL) 4 mg QHS PO 06/05/21 21:00 06/05/21 20:34 Trazodone HCl (Desyrel) 50 mg QHSP PRN PO INSOMNIA 06/04/21 20:40 Allergies Coded Allergies: PERFUMES (Verified Allergy, Unknown, 09/22/20) ARCADIO SHAH M.D. Jun 06, 2021 09:51
[2021-06-06] MEDS: risperiDONE 2 MG TAB PO SCH (22:14)
[2021-06-07 08:35] VITALS: BP 148/68
--- NOTE | 2021-06-07 09:59 | MHIPNPDOC ---
[facility] Progress Note Progress Note DATE OF SERVICE: 06/07/21 Patient is smiling more and very pleasant on approach. He stated that he was having a bad day and feeling upset and depressed before his admission but is now feeling better and not feeling as angry or depressed and denies any active suicidal thoughts. He is in no acute physical distress eating sleeping well and offers no new complaint. HISTORY:. VITAL SIGNS: See below. NEW TEST RESULTS:. CURRENT MEDICATIONS: See below. MENTAL STATUS EXAMINATION: Patient is a 41-year old male, who is in no acute distress. Speech: Is pressured but relevant. Language skills are fair. Thought processes including: Coherent. Thought content: Denies any active suicidal thoughts. Abstract reasoning, and computation: Poor. Description of associations: Able to give relevant answers. Description of abnormal or psychotic thoughts: Is denying any hallucinations. Judgment: Poor. Insight: poor]. Orientation: He is oriented to the place. Recent and remote memory: No gross impairment. Attention span and concentration: Poor. Language:. Fund of knowledge: Below average. Mood: Denies feeling angry. Affect: More animated. DIAGNOSES: 1.. Chronic schizophrenia 2.. Intellectual limitations 3.. ASSESSMENT: Cooperating with the medicine and showing some improvement MANAGEMENT PLAN: Continue with the current treatment. TIME SPENT: 50 minutes. Vital Signs Vital Signs Date Time Temp Pulse Resp B/P (MAP) Pulse Ox O2 Delivery O2 Flow Rate FiO2 06/07/21 08:35 97.0 64 16 148/68 (94) 100 Room Air Current Medications Current Medications Medications (Trade) Dose Ordered Sig/Simone Route PRN Reason Start Time Stop Time Status Last Admin Dose Admin Acetaminophen (Tylenol Tab) 650 mg Q6HP PRN PO HEADACHE or MILD DISCOMFORT 06/04/21 20:40 Al Hydrox/Mg Hydrox/Simethicone (Mylanta) 30 ml Q4HP PRN PO HEARTBURN/INDIGESTION 06/04/21 20:40 Diphenhydramine HCl (Benadryl) 50 mg Q6HP PRN PO ITCHING 06/05/21 08:20 Haloperidol (Haldol) 5 mg Q6HP PRN PO AGITATION 06/05/21 08:20 Home Med (Med Rec Complete!) ASDIRECTED XX 06/04/21 19:20 06/04/21 19:18 DC Lorazepam (Ativan) 1 mg Q6HP PRN IV ANXIETY/AGITATION 06/05/21 08:20 UNV Lorazepam (Ativan) 1 mg Q6HP PRN PO ANXIETY/Agitation 06/05/21 08:40 Magnesium Hydroxide (Milk Of Magnesia) 30 ml DAILYPRN PRN PO CONSTIPATION 06/04/21 20:40 Olanzapine (ZyPREXA ZYDIS) 5 mg Q4HP PRN PO AGITATION 06/04/21 20:40 Risperidone (RisperDAL) 4 mg QHS PO 06/05/21 21:00 06/05/21 20:34 Trazodone HCl (Desyrel) 50 mg QHSP PRN PO INSOMNIA 06/04/21 20:40 Allergies Coded Allergies: PERFUMES (Verified Allergy, Unknown, 09/22/20) ARCADIO SHAH M.D. Jun 07, 2021 09:59
[2021-06-07] MEDS ORDERED: NICOTINE 21MG/24HR 1 EA TRANSDERMAL TD PRN (16:35)
[2021-06-07] MEDS: risperiDONE 2 MG TAB PO SCH (20:23)
[2021-06-08 06:45] VITALS: BP 127/79
--- NOTE | 2021-06-08 10:55 | MHIPNPDOC ---
[facility] Progress Note Progress Note DATE OF SERVICE: 06/08/21 Patient is fully cooperating with the medicine and has been in good control. He is smiling somewhat inappropriately and appears quite childish and regressed but is pleasant on approach and reports feeling better. He is denying any suicidal thoughts and eating sleeping well and appears to be at his baseline. HISTORY:. VITAL SIGNS: See below. NEW TEST RESULTS:. CURRENT MEDICATIONS: See below. MENTAL STATUS EXAMINATION: Patient is a 41-year old male, who is in no acute distress. Speech: Is simplistic but relevant. Language skills are poor. Thought processes including: Rational relevant. Thought content: Denies any suicidal thoughts. Abstract reasoning, and computation: Poor. Description of associations: Relevant. Description of abnormal or psychotic thoughts: Denies any hallucination. Judgment: Poor. Insight:. poor. Orientation: Appears oriented. Recent and remote memory: Difficult to evaluate. Attention span and concentration: Poor. Language:. Fund of knowledge:. Mood: Smiling and not appear depressed. Affect: Animated. DIAGNOSES: 1. Chronic schizophrenia. 2.. Intellectual limitations 3.. ASSESSMENT: Showing improvement MANAGEMENT PLAN: Appears to be at baseline consider discharge Thursday. TIME SPENT: 10 minutes. Vital Signs Vital Signs Date Time Temp Pulse Resp B/P (MAP) Pulse Ox O2 Delivery O2 Flow Rate FiO2 06/08/21 06:45 98.2 78 18 127/79 (95) 100 Room Air Current Medications Current Medications Medications (Trade) Dose Ordered Sig/Simone Route PRN Reason Start Time Stop Time Status Last Admin Dose Admin Acetaminophen (Tylenol Tab) 650 mg Q6HP PRN PO HEADACHE or MILD DISCOMFORT 06/04/21 20:40 Al Hydrox/Mg Hydrox/Simethicone (Mylanta) 30 ml Q4HP PRN PO HEARTBURN/INDIGESTION 06/04/21 20:40 Diphenhydramine HCl (Benadryl) 50 mg Q6HP PRN PO ITCHING 06/05/21 08:20 Haloperidol (Haldol) 5 mg Q6HP PRN PO AGITATION 06/05/21 08:20 Home Med (Med Rec Complete!) ASDIRECTED XX 06/04/21 19:20 06/04/21 19:18 DC Lorazepam (Ativan) 1 mg Q6HP PRN IV ANXIETY/AGITATION 06/05/21 08:20 UNV Lorazepam (Ativan) 1 mg Q6HP PRN PO ANXIETY/Agitation 06/05/21 08:40 Magnesium Hydroxide (Milk Of Magnesia) 30 ml DAILYPRN PRN PO CONSTIPATION 06/04/21 20:40 Nicotine (Nicoderm Cq 21mg) 1 patch DAILYPRN PRN TD NICOTINE WITHDRAWAL 06/07/21 16:35 Olanzapine (ZyPREXA ZYDIS) 5 mg Q4HP PRN PO AGITATION 06/04/21 20:40 Risperidone (RisperDAL) 4 mg QHS PO 06/05/21 21:00 06/07/21 20:23 Trazodone HCl (Desyrel) 50 mg QHSP PRN PO INSOMNIA 06/04/21 20:40 Allergies Coded Allergies: PERFUMES (Verified Allergy, Unknown, 09/22/20) ARCADIO SHAH M.D. Jun 08, 2021 10:55
[2021-06-08] MEDS: risperiDONE 2 MG TAB PO SCH (21:24)
--- NOTE | 2021-06-09 10:16 | MHIPNPDOC ---
[facility] Progress Note Progress Note DATE OF SERVICE: 06/09/21 The patient is fully cooperating with medications and maintaining good control. He is very pleasant on approach is appropriate and stated that he is feeling mu ch better and he does not have any suicidal thoughts and he would like to go home tomorrow. HISTORY:. VITAL SIGNS: See below. NEW TEST RESULTS:. CURRENT MEDICATIONS: See below. MENTAL STATUS EXAMINATION: Patient is a 41-year old male, who is in no acute distress. Speech: Is simplistic but appropriate and relevant. Language skills are fair. Thought processes including: Coherent. Thought content: Denies any suicidal thoughts. Abstract reasoning, and computation:. Description of associations: Organized. Description of abnormal or psychotic thoughts: Denies any hallucination or paranoia. Judgment: Fair. Insight: Fair. Orientation: Appears oriented. Recent and remote memory: No gross impairment. Attention span and concentration:. Language:. Fund of knowledge:. Mood: Euthymic. Affect: Appropriate and animated. DIAGNOSES: 1.. Chronic schizophrenia 2.. Intellectual limitations 3.. ASSESSMENT: Showing improved mental status and behavior MANAGEMENT PLAN: Continue with the current treatment and plan discharge for tomorrow. TIME SPENT: 10 minutes. Vital Signs Vital Signs Date Time Temp Pulse Resp B/P (MAP) Pulse Ox O2 Delivery O2 Flow Rate FiO2 06/08/21 06:45 98.2 78 18 127/79 (95) 100 Room Air Current Medications Current Medications Medications (Trade) Dose Ordered Sig/Simone Route PRN Reason Start Time Stop Time Status Last Admin Dose Admin Acetaminophen (Tylenol Tab) 650 mg Q6HP PRN PO HEADACHE or MILD DISCOMFORT 06/04/21 20:40 Al Hydrox/Mg Hydrox/Simethicone (Mylanta) 30 ml Q4HP PRN PO HEARTBURN/INDIGESTION 06/04/21 20:40 Diphenhydramine HCl (Benadryl) 50 mg Q6HP PRN PO ITCHING 06/05/21 08:20 Haloperidol (Haldol) 5 mg Q6HP PRN PO AGITATION 06/05/21 08:20 Home Med (Med Rec Complete!) ASDIRECTED XX 06/04/21 19:20 06/04/21 19:18 DC Lorazepam (Ativan) 1 mg Q6HP PRN IV ANXIETY/AGITATION 06/05/21 08:20 UNV Lorazepam (Ativan) 1 mg Q6HP PRN PO ANXIETY/Agitation 06/05/21 08:40 Magnesium Hydroxide (Milk Of Magnesia) 30 ml DAILYPRN PRN PO CONSTIPATION 06/04/21 20:40 Nicotine (Nicoderm Cq 21mg) 1 patch DAILYPRN PRN TD NICOTINE WITHDRAWAL 06/07/21 16:35 Olanzapine (ZyPREXA ZYDIS) 5 mg Q4HP PRN PO AGITATION 06/04/21 20:40 Risperidone (RisperDAL) 4 mg QHS PO 06/05/21 21:00 06/08/21 21:24 Trazodone HCl (Desyrel) 50 mg QHSP PRN PO INSOMNIA 06/04/21 20:40 Allergies Coded Allergies: PERFUMES (Verified Allergy, Unknown, 09/22/20) ARCADIO SHAH M.D. Jun 09, 2021 10:16
[2021-06-09 16:36] VITALS: BP 120/77
[2021-06-09] MEDS: risperiDONE 2 MG TAB PO SCH (21:00)
[2021-06-10 07:41] VITALS: BP 116/64
[2021-06-10] MEDS ORDERED: RISP-9 PO (08:27)
--- NOTE | 2021-06-10 10:55 | MHDSPDOC ---
[facility] Discharge Summary Discharge Summary DATE OF ADMISSION: Jun 04, 2021 at 20:37 DATE OF DISCHARGE: June 10, 2021 DISCHARGE DIAGNOSES: 1.. Chronic schizophrenia undifferentiated 2.. Intellectual limitations REASON FOR ADMISSION: 41-year-old single male with long history of schizophrenia and known intellectual limitations and history of polysubstance abuse admitted due to complaint of increasing depression and suicidal thoughts. CONSULTANTS INVOLVED: TREATMENT AND PROGRESS ON THE UNIT : Patient was seen for supportive therapy and started on risperidone 4 mg at bedtime. Patient initially was very guarded withdrawn and preoccupied and not verbally responding but after the first 2 days he is becoming much more pleasant and verbally productive. He is quite simplistic and somewhat regressed but is in good control and fully cooperating with the medicine and did not show any suicidal or aggressive behavior.. HOSPITAL COURSE: He has cooperated and tolerated risperidone without any side effect and showed a rapid improvement. He is much more animated and pleasant and appropriate and did not show any acting out behavior and after the first few days he is reporting that he is feeling much better and he just had a bad day w hen he first came in. He is denying any hallucination denies any thoughts of suicide and does not appear to be paranoid or depressed. DISCHARGE ASSESSMENT: Improved stable and not suicidal MENTAL STATUS EXAMINATION ON DISCHARGE: Patient is a 41-year old male, who is cooperative. Speech is simplistic but relevant. Language skills are fair. Thought processes including: Coherent. Thought content: Denies any suicidal thoughts. Abstract reasoning, and computation: Poor. Description of associations: Organized. Description of abnormal or psychotic thoughts: No gross paranoid thoughts and denies any hallucination. Judgment: Fair. Insight: Fair. Orientation to oriented. Recent and remote memory: No gross impairment. Attention span and concentration:. Language:. Fund of knowledge:. Mood: Euthymic. Affect:. MEDICATIONS ON DISCHARGE: -For. Risperidone 4 mg at bedtime for 7 days with 3 refills -For. -For. PLAN/FOLLOWUP ARRANGEMENTS: Arranged by the special events planner. The amount of time spent in the coordination of care for this patient was approximately 30 minutes. ETOH/Disorder Med Rx ETOH/DRUG DISORDER RX: N/A Vital Signs/I&Os Vital Signs Date Time Temp Pulse Resp B/P (MAP) Pulse Ox O2 Delivery O2 Flow Rate FiO2 06/10/21 07:41 97.1 87 17 116/64 (81) 100 Room Air Medications Scheduled Risperidone (Risperidone) 2 Mg Tablet, 4 MG PO QHS for psychosis for 7 Days, #14 Allergies Coded Allergies: PERFUMES (Verified Allergy, Unknown, 09/22/20) ARCADIO SHAH M.D. Jun 10, 2021 10:55
[2021-06-11] MEDS ORDERED: UNRESOLVED CLARIFICATION ENTRY XX SCH (00:01)
== END 2021-06-10 10:56 | disposition home or self-care (01) | DRG 750 ==
LOC: M ED 17:17 → M ED INP 20:37 → M PSY 21:32
PROVIDERS: ADMIT Psychiatry & Neurology Psychiatry; ATTEND Psychiatry & Neurology Psychiatry
DX: F20.5 Residual schizophrenia (principal); F79 Unspecified intellectual disabilities

== ENCOUNTER 2021-06-24 04:06 | Emergency (ER) | payer MEDICAID ==
[~2021-06-24 04:06] MED LIST changes: +[UNRECOGNIZED DRUG - CODE]
[2021-06-24 04:44] VITALS: BP 110/84
== END 2021-06-24 06:23 | disposition left against medical advice (07) ==
LOC: M ED 04:06
DX: Z53.21 Procedure and treatment not carried out due to patient leaving prior to being seen by health care provider (principal)

== ENCOUNTER 2021-07-14 20:46 | Emergency (ER) | payer MEDICAID ==
[~2021-07-14] VITALS: Ht 175.3 cm; Wt 67.4 kg
[~2021-07-14 20:46] MED LIST changes: -HALO5TA; -HALO5TA PO; +HALO5TAB33; +HALO5TAB33 PO; +NICO1DIS12 TD; +RISP2TAB32 PO
[2021-07-14 22:22] LABS: HEMOGLOBIN 14.5 g/dl (13.5-17.5); MEAN CORPUSCULAR HEMOGLOBIN 30.4 pg (27.0-33.0); MEAN CORPUSCULAR HGB CONC 33.7 g/dl (32.0-36.5); MEAN CORPUSCULAR VOLUME 90.1 fl (80.0-96.0); PLATELET COUNT, AUTOMATED 291 10^3/uL (150-450); RED BLOOD COUNT 4.77 10^6/uL (4.30-6.10); WHITE BLOOD COUNT 10.6 10^3/uL (4.0-10.0)
[2021-07-14 23:02] LABS: ACETAMINOPHEN LEVEL < 2.0 UG/ML (10.0-30.0); ALBUMIN 3.5 GM/DL (3.2-5.2); ALT/SGPT 35 U/L (12-78); AMPHETAMINES LEVEL URINE POSITIVE (NEGATIVE); BARBITURATES URINE NEGATIVE (NEGATIVE); BENZODIAZEPINES URINE NEGATIVE (NEGATIVE); BILIRUBIN,DIRECT 0.2 MG/DL (0.0-0.2); BLOOD UREA NITROGEN 14 MG/DL (7-18); CALCIUM LEVEL 9.4 MG/DL (8.5-10.1); CANNABINOIDS URINE POSITIVE (NEGATIVE); CARBON DIOXIDE LEVEL 28 MEQ/L (21-32); CHLORIDE LEVEL 106 MEQ/L (98-107); COCAINE METABOLITE URINE NEGATIVE (NEGATIVE); CREATININE FOR GFR 1.16 MG/DL (0.70-1.30); ETHYL ALCOHOL (ETHANOL) < 0.003 % (0.000-0.010); GLOMERULAR FILTRATION RATE > 60.0 (>60); GLUCOSE, FASTING 117 MG/DL (70-100); METHADONE URINE NEGATIVE (NEGATIVE); OPIATES URINE NEGATIVE (NEGATIVE); PHENCYCLIDINE URINE NEGATIVE (NEGATIVE); POTASSIUM SERUM 4.2 MEQ/L (3.5-5.1); SALICYLATE LEVEL < 1.7 MG/DL (5.0-30.0); SODIUM LEVEL 141 MEQ/L (136-145); THYROID STIMULATING HORMONE 0.912 uIU/ML (0.358-3.740); TOTAL PROTEIN 7.1 GM/DL (6.4-8.2)
[2021-07-15 11:14] VITALS: BP 112/82
[2021-08-08] MEDS ORDERED: INVE234I SQ (09:34)
[2021-11-08] MEDS ORDERED: PALI1TAB2 PO (07:44)
[2021-11-08] MEDS ORDERED: NICO21PAT TD (07:44)
[2021-12-21] MEDS ORDERED: INVE234I SC (11:33)
[2021-12-25] MEDS ORDERED: BENZ-52 PO (12:21)
[2021-12-25] MEDS ORDERED: OLAN1TAB16 PO (12:21)
[2021-12-25] MEDS ORDERED: PRAZ1CAP PO (12:21)
[2021-12-25] MEDS ORDERED: MED NOTE (12:22)
== END 2021-07-15 12:49 | disposition home or self-care (01) ==
LOC: M ED 20:46
DX: F20.9 Schizophrenia, unspecified (principal); F12.10 Cannabis abuse, uncomplicated; F19.10 Other psychoactive substance abuse, uncomplicated

== ENCOUNTER 2021-07-18 15:39 | Emergency (ER) | payer MEDICAID ==
[~2021-07-18] VITALS: Ht 175.3 cm; Wt 71.0 kg
[~2021-07-18 15:39] MED LIST changes: +HALO5TA; +HALO5TA PO; -HALO5TAB33; -HALO5TAB33 PO
[2021-07-18 15:40] VITALS: BP 122/73
[2021-07-19] MEDS ORDERED: INVE234I (02:50)
[2021-07-19] MEDS ORDERED: ZYPR5TAB2 (02:50)
[2021-07-19] MEDS ORDERED: OLAN1TAB16 (02:50)
[2021-07-19] MEDS ORDERED: HALO10AM (02:50)
[2021-07-19] MEDS ORDERED: PRAZ1CAP (02:50)
== END 2021-07-18 16:37 | disposition left against medical advice (07) ==
LOC: M ED 15:39
DX: Z53.21 Procedure and treatment not carried out due to patient leaving prior to being seen by health care provider (principal)

== ENCOUNTER 2021-07-19 02:44 | Emergency (ER) | payer MEDICAID ==
[~2021-07-19] VITALS: Ht 175.3 cm; Wt 70.9 kg
[2021-07-19 02:44] VITALS: BP 124/74
[2021-07-19] MEDS ORDERED: INVE234I (02:50)
[2021-07-19] MEDS ORDERED: PRAZ1CAP (02:50)
[2021-07-19] MEDS ORDERED: OLAN1TAB16 (02:50)
[2021-07-19] MEDS ORDERED: HALO10AM (02:50)
[2021-07-19] MEDS ORDERED: ZYPR5TAB2 (02:50)
[2021-07-19] MEDS ORDERED: ACETAMINOPHEN 325 MG TAB PO ONE (09:45)
[2021-07-19 11:31] LABS: RSV AMPLIFICATION NEGATIVE (NEGATIVE)
== END 2021-07-19 11:24 | disposition home or self-care (01) ==
LOC: M ED 02:44
DX: J09.X2 Influenza due to identified novel influenza A virus with other respiratory manifestations (principal); R51.9 Headache, unspecified; F20.9 Schizophrenia, unspecified; R44.1 Visual hallucinations; F41.9 Anxiety disorder, unspecified; F19.10 Other psychoactive substance abuse, uncomplicated; I10 Essential (primary) hypertension; Z79.899 Other long term (current) drug therapy

== ENCOUNTER 2021-07-21 11:30 | Emergency (ER) | payer OTHER ==
[~2021-07-21] VITALS: Ht 175.3 cm; Wt 72.7 kg
[~2021-07-21 11:30] MED LIST changes: +HALO10AM; +OLAN1TAB16; +PRAZ1CAP; +ZYPR5TAB2
[2021-07-21 12:54] LABS: HEMATOCRIT 41.2 % (42.0-52.0); HEMOGLOBIN 13.8 g/dl (13.5-17.5); MEAN CORPUSCULAR HEMOGLOBIN 30.1 pg (27.0-33.0); MEAN CORPUSCULAR HGB CONC 33.5 g/dl (32.0-36.5); MEAN CORPUSCULAR VOLUME 89.8 fl (80.0-96.0); PLATELET COUNT, AUTOMATED 281 10^3/uL (150-450); RED BLOOD COUNT 4.59 10^6/uL (4.30-6.10); WHITE BLOOD COUNT 9.7 10^3/uL (4.0-10.0)
[2021-07-21 13:31] LABS: ACETAMINOPHEN LEVEL < 2.0 UG/ML (10.0-30.0); ALBUMIN 3.5 GM/DL (3.2-5.2); ALT/SGPT 25 U/L (12-78); BILIRUBIN,DIRECT 0.2 MG/DL (0.0-0.2); BILIRUBIN,TOTAL 0.7 MG/DL (0.2-1.0); BLOOD UREA NITROGEN 8 MG/DL (7-18); CALCIUM LEVEL 9.2 MG/DL (8.5-10.1); CARBON DIOXIDE LEVEL 28 MEQ/L (21-32); CHLORIDE LEVEL 105 MEQ/L (98-107); CREATININE FOR GFR 0.83 MG/DL (0.70-1.30); ETHYL ALCOHOL (ETHANOL) < 0.003 % (0.000-0.010); GLOMERULAR FILTRATION RATE > 60.0 (>60); GLUCOSE, FASTING 88 MG/DL (70-100); POTASSIUM SERUM 3.6 MEQ/L (3.5-5.1); SALICYLATE LEVEL 1.9 MG/DL (5.0-30.0); SODIUM LEVEL 139 MEQ/L (136-145)
[2021-07-21 13:48] LABS: AMPHETAMINES LEVEL URINE POSITIVE (NEGATIVE); BARBITURATES URINE NEGATIVE (NEGATIVE); BENZODIAZEPINES URINE NEGATIVE (NEGATIVE); CANNABINOIDS URINE POSITIVE (NEGATIVE); COCAINE METABOLITE URINE NEGATIVE (NEGATIVE); METHADONE URINE NEGATIVE (NEGATIVE); OPIATES URINE NEGATIVE (NEGATIVE); PHENCYCLIDINE URINE NEGATIVE (NEGATIVE)
--- NOTE | 2021-07-21 16:03 | MHCRPDOC ---
[facility] Consultation Consultation DATE OF CONSULTATION: 07/21/21 CONSULTATION REQUESTED BY: ED team REASON FOR CONSULTATION: homelessness, suicidal statement RELEVANT HISTORY: States suicidal thoughts brought him in and that he historically wants medication, says hears voices telling me to hurt myself historically, states seeing shadows. States thoughts have been there for a couple days now, but no intent or plan and they are just bothersome. Reports using "quan", cannabis and drinking. Reports has an apartment he pays for with [employer] and lives with mother in [place]. States mother has the sharp objects reportedly, kitchen knives and spoons, no weapons reportedly. Reports auditory hallucinations that come and go. Denies any suicidal intent or plan. Takes haldol decanoate monthly and due for next shot this week (states could go in and get it tomorrow), plans to go get it at community [facility], however will be available today. States can have mother watch him until walk in tomorrow at [facility]. States "I'm alright, thought would just get checked out". Is positive for the flu and knows needs alot of sleep. Reports gets at least 5 hours nightly. Currently denies suicidal or homicidal ideation, intent or plan. PAST PSYCHIATRIC HISTORY: Schizophrenia, goes to [facility], haldol decanoate, benztropine, other meds unsure of names, reports takes meds consistently PAST MEDICAL HISTORY: denies, polysubstance abuse, elevated Bp FAMILY HISTORY:denies PERSONAL AND SOCIAL HISTORY: The patient was born in [place] and raised in [place]. Resides in: [place] with mother in an apartment Marital Status: Single Children: 2 kids, 5, 18 y/o Employment: unemployed on [employer], states trying to find a job SUBSTANCE ABUSE HISTORY: see hpi LEGAL HISTORY: reports history of arrests MENTAL STATUS EXAMINATION: Patient is a 41-year old male, who in no acute distress, calm, lying in bed, aged scar on face Speech is slowed Language skills are intact Thought processes including: linear, logical Thought content: denies suicidal thoughts presently Abstract reasoning, and computation: intact Description of associations: normal Description of abnormal or psychotic thoughts: reports chronic ah, not currently telling him to hurt self Judgment: fair Insight: good Orientation to x3 Recent and remote memory: intact Attention span and concentration: fair Language: somali Fund of knowledge: average Mood: "good" Affect: euthymic DIAGNOSIS: 1. Schizophrenia PLAN: 1. Patient does not meet criteria for inpatient admission at this time involuntarily, refuses voluntary admission. States he wants to get his shot and return home to his mom who can watch him until he goes for a walk-in tomorrow, states he just came in to get medication and get checked out. 2. Ensure patient has safety plan, obtain collateral from mother to ensure he can return home safely. Vital Signs Vital Signs Date Time Temp Pulse Resp B/P (MAP) Pulse Ox O2 Delivery O2 Flow Rate FiO2 07/21/21 11:31 98.0 106 18 140/91 (107) 96 Room Air Laboratory Data 24H Labs Laboratory Tests 2 07/21/21 12:40: Nucleated Red Blood Cells % (auto) 0.0, Anion Gap 6L, Glomerular Filtration Rate > 60.0, Calcium Level 9.2, Total Bilirubin 0.7, Direct Bilirubin 0.2, Aspartate Amino Transf (AST/SGOT) 23, Alanine Aminotransferase (ALT/SGPT) 25, Alkaline Phosphatase 48, Total Protein 7.0, Albumin 3.5, Albumin/Globulin Ratio 1.0, Thyroid Stimulating Hormone (TSH) 1.150, Salicylates Level 1.9L, Urine Opiates Screen NEGATIVE, Urine Methadone Screen NEGATIVE, Acetaminophen Level < 2.0L, Urine Barbiturates Screen NEGATIVE, Urine Phencyclidine Screen NEGATIVE, Urine Amphetamines Screen POSITIVEH, Urine Benzodiazepines Screen NEGATIVE, Urine Cocaine Metabolite Screen NEGATIVE, Urine Cannabinoids Screen POSITIVEH, Ethyl Alcohol Level < 0.003 Allergies Coded Allergies: No Known Allergies (Unverified , 07/19/21) JONO MATUTE MD Jul 21, 2021 16:03
[2021-07-21 18:52] VITALS: BP 105/71
== END 2021-07-21 18:56 | disposition home or self-care (01) ==
LOC: M ED 11:30 → MERGE 11:30 → M ED 18:56
DX: F19.150 Other psychoactive substance abuse with psychoactive substance-induced psychotic disorder with delusions (principal); J09.X2 Influenza due to identified novel influenza A virus with other respiratory manifestations

== ENCOUNTER 2021-07-23 08:39 | Emergency (ER) | payer MEDICAID ==
[~2021-07-23] VITALS: Ht 175.3 cm; Wt 70.5 kg
[2021-07-23 10:09] LABS: HEMATOCRIT 42.1 % (42.0-52.0); HEMOGLOBIN 13.9 g/dl (13.5-17.5); MEAN CORPUSCULAR HEMOGLOBIN 30.2 pg (27.0-33.0); MEAN CORPUSCULAR VOLUME 91.5 fl (80.0-96.0); PLATELET COUNT, AUTOMATED 283 10^3/uL (150-450); WHITE BLOOD COUNT 7.3 10^3/uL (4.0-10.0)
[2021-07-23 10:48] LABS: ACETAMINOPHEN LEVEL < 2.0 UG/ML (10.0-30.0); ALBUMIN 3.5 GM/DL (3.2-5.2); ALT/SGPT 40 U/L (12-78); BILIRUBIN,DIRECT 0.1 MG/DL (0.0-0.2); BILIRUBIN,TOTAL 0.5 MG/DL (0.2-1.0); BLOOD UREA NITROGEN 11 MG/DL (7-18); CALCIUM LEVEL 9.1 MG/DL (8.5-10.1); CARBON DIOXIDE LEVEL 28 MEQ/L (21-32); CHLORIDE LEVEL 108 MEQ/L (98-107); CREATININE FOR GFR 0.82 MG/DL (0.70-1.30); ETHYL ALCOHOL (ETHANOL) < 0.003 % (0.000-0.010); GLOMERULAR FILTRATION RATE > 60.0 (>60); GLUCOSE, FASTING 93 MG/DL (70-100); POTASSIUM SERUM 3.9 MEQ/L (3.5-5.1); SALICYLATE LEVEL < 1.7 MG/DL (5.0-30.0); SODIUM LEVEL 140 MEQ/L (136-145); THYROID STIMULATING HORMONE 0.912 uIU/ML (0.358-3.740); TOTAL PROTEIN 7.1 GM/DL (6.4-8.2)
[2021-07-23 14:23] LABS: AMPHETAMINES LEVEL URINE POSITIVE (NEGATIVE); BARBITURATES URINE NEGATIVE (NEGATIVE); BENZODIAZEPINES URINE NEGATIVE (NEGATIVE); CANNABINOIDS URINE POSITIVE (NEGATIVE); COCAINE METABOLITE URINE NEGATIVE (NEGATIVE); METHADONE URINE NEGATIVE (NEGATIVE); OPIATES URINE NEGATIVE (NEGATIVE); PHENCYCLIDINE URINE NEGATIVE (NEGATIVE)
[2021-07-23 20:00] VITALS: BP 111/71
== END 2021-07-23 21:49 | disposition home or self-care (01) ==
LOC: M ED 08:39
DX: F20.9 Schizophrenia, unspecified (principal); I10 Essential (primary) hypertension; F17.200 Nicotine dependence, unspecified, uncomplicated; Z91.048 Other nonmedicinal substance allergy status

== ENCOUNTER 2021-07-31 17:29 | Emergency (ER) | payer MEDICAID ==
[~2021-07-31] VITALS: Ht 175.3 cm; Wt 71.8 kg
[2021-07-31 18:31] LABS: HEMATOCRIT 40.2 % (42.0-52.0); HEMOGLOBIN 13.2 g/dl (13.5-17.5); MEAN CORPUSCULAR HEMOGLOBIN 30.1 pg (27.0-33.0); MEAN CORPUSCULAR HGB CONC 32.8 g/dl (32.0-36.5); MEAN CORPUSCULAR VOLUME 91.6 fl (80.0-96.0); PLATELET COUNT, AUTOMATED 233 10^3/uL (150-450); RED BLOOD COUNT 4.39 10^6/uL (4.30-6.10); WHITE BLOOD COUNT 10.3 10^3/uL (4.0-10.0)
[2021-07-31 18:40] LABS: ACETAMINOPHEN LEVEL < 2.0 UG/ML (10.0-30.0); BLOOD UREA NITROGEN 14 MG/DL (7-18); CALCIUM LEVEL 8.9 MG/DL (8.5-10.1); CARBON DIOXIDE LEVEL 28 MEQ/L (21-32); CHLORIDE LEVEL 107 MEQ/L (98-107); CREATININE FOR GFR 1.03 MG/DL (0.70-1.30); ETHYL ALCOHOL (ETHANOL) < 0.003 % (0.000-0.010); GLOMERULAR FILTRATION RATE > 60.0 (>60); GLUCOSE, FASTING 76 MG/DL (70-100); POTASSIUM SERUM 3.8 MEQ/L (3.5-5.1); SALICYLATE LEVEL 2.3 MG/DL (5.0-30.0); SODIUM LEVEL 142 MEQ/L (136-145)
[2021-07-31 19:14] LABS: ALBUMIN 3.1 GM/DL (3.2-5.2); ALT/SGPT 235 U/L (12-78); BILIRUBIN,DIRECT 0.1 MG/DL (0.0-0.2); BILIRUBIN,TOTAL 0.5 MG/DL (0.2-1.0); THYROID STIMULATING HORMONE 0.264 uIU/ML (0.358-3.740); TOTAL PROTEIN 6.7 GM/DL (6.4-8.2)
[2021-07-31 19:31] LABS: AMPHETAMINES LEVEL URINE NEGATIVE (NEGATIVE); BARBITURATES URINE NEGATIVE (NEGATIVE); BENZODIAZEPINES URINE NEGATIVE (NEGATIVE); CANNABINOIDS URINE POSITIVE (NEGATIVE); COCAINE METABOLITE URINE NEGATIVE (NEGATIVE); METHADONE URINE NEGATIVE (NEGATIVE); OPIATES URINE NEGATIVE (NEGATIVE); PHENCYCLIDINE URINE NEGATIVE (NEGATIVE)
[2021-07-31 20:43] LABS: FREE T4 1.11 NG/DL (0.76-1.46)
[2021-07-31 22:55] VITALS: BP 113/72
== END 2021-07-31 23:00 | disposition home or self-care (01) ==
LOC: M ED 17:29
DX: F20.9 Schizophrenia, unspecified (principal); F17.200 Nicotine dependence, unspecified, uncomplicated; F12.10 Cannabis abuse, uncomplicated

== ENCOUNTER 2021-08-07 11:21 | Emergency (ER) | payer MEDICAID ==
[~2021-08-07] VITALS: Ht 172.7 cm; Wt 72.3 kg
[2021-08-07 11:21] VITALS: BP 132/70
[2021-08-08] MEDS ORDERED: INVE234I (09:34)
== END 2021-08-07 13:22 | disposition left against medical advice (07) ==
LOC: M ED 11:21
DX: Z53.21 Procedure and treatment not carried out due to patient leaving prior to being seen by health care provider (principal)

== ENCOUNTER 2021-08-08 07:11 | Emergency (ER) | payer MEDICAID ==
[~2021-08-08] VITALS: Ht 175.3 cm; Wt 72.6 kg
[2021-08-08 08:11] LABS: HEMATOCRIT 41.8 % (42.0-52.0); HEMOGLOBIN 13.6 g/dl (13.5-17.5); MEAN CORPUSCULAR HEMOGLOBIN 29.7 pg (27.0-33.0); MEAN CORPUSCULAR HGB CONC 32.5 g/dl (32.0-36.5); MEAN CORPUSCULAR VOLUME 91.3 fl (80.0-96.0); PLATELET COUNT, AUTOMATED 262 10^3/uL (150-450); RED BLOOD COUNT 4.58 10^6/uL (4.30-6.10)
[2021-08-08 08:45] LABS: AMPHETAMINES LEVEL URINE NEGATIVE (NEGATIVE); BARBITURATES URINE NEGATIVE (NEGATIVE); BENZODIAZEPINES URINE NEGATIVE (NEGATIVE); CANNABINOIDS URINE POSITIVE (NEGATIVE); COCAINE METABOLITE URINE NEGATIVE (NEGATIVE); METHADONE URINE NEGATIVE (NEGATIVE); OPIATES URINE NEGATIVE (NEGATIVE); PHENCYCLIDINE URINE NEGATIVE (NEGATIVE)
[2021-08-08 08:48] LABS: ACETAMINOPHEN LEVEL < 2.0 UG/ML (10.0-30.0); ALBUMIN 3.2 GM/DL (3.2-5.2); ALT/SGPT 255 U/L (12-78); BILIRUBIN,DIRECT 0.2 MG/DL (0.0-0.2); BILIRUBIN,TOTAL 0.9 MG/DL (0.2-1.0); BLOOD UREA NITROGEN 11 MG/DL (7-18); CALCIUM LEVEL 9.2 MG/DL (8.5-10.1); CARBON DIOXIDE LEVEL 28 MEQ/L (21-32); CHLORIDE LEVEL 106 MEQ/L (98-107); CREATININE FOR GFR 0.77 MG/DL (0.70-1.30); ETHYL ALCOHOL (ETHANOL) < 0.003 % (0.000-0.010); GLOMERULAR FILTRATION RATE > 60.0 (>60); GLUCOSE, FASTING 80 MG/DL (70-100); POTASSIUM SERUM 3.7 MEQ/L (3.5-5.1); SALICYLATE LEVEL < 1.7 MG/DL (5.0-30.0); SODIUM LEVEL 139 MEQ/L (136-145); TOTAL PROTEIN 6.8 GM/DL (6.4-8.2)
[2021-08-08] MEDS ORDERED: INVE234I (09:34)
[2021-08-08 14:21] VITALS: BP 110/70
== END 2021-08-08 14:23 | disposition home or self-care (01) ==
LOC: M ED 07:11
DX: F25.9 Schizoaffective disorder, unspecified (principal); I10 Essential (primary) hypertension; F19.10 Other psychoactive substance abuse, uncomplicated; Z87.891 Personal history of nicotine dependence

== ENCOUNTER 2021-08-12 23:05 | Emergency (ER) | payer MEDICAID ==
[~2021-08-12] VITALS: Ht 170.2 cm; Wt 71.8 kg
[2021-08-12 23:06] VITALS: BP 136/82
[2021-08-13 01:26] LABS: HEMATOCRIT 39.5 % (42.0-52.0); HEMOGLOBIN 13.1 g/dl (13.5-17.5); MEAN CORPUSCULAR HEMOGLOBIN 30.7 pg (27.0-33.0); MEAN CORPUSCULAR HGB CONC 33.2 g/dl (32.0-36.5); MEAN CORPUSCULAR VOLUME 92.5 fl (80.0-96.0); PLATELET COUNT, AUTOMATED 265 10^3/uL (150-450); RED BLOOD COUNT 4.27 10^6/uL (4.30-6.10); WHITE BLOOD COUNT 10.4 10^3/uL (4.0-10.0)
[2021-08-13 02:09] LABS: ACETAMINOPHEN LEVEL < 2.0 UG/ML (10.0-30.0); ALBUMIN 3.1 GM/DL (3.2-5.2); ALT/SGPT 205 U/L (12-78); BILIRUBIN,DIRECT 0.1 MG/DL (0.0-0.2); BILIRUBIN,TOTAL 0.4 MG/DL (0.2-1.0); BLOOD UREA NITROGEN 11 MG/DL (7-18); CALCIUM LEVEL 8.8 MG/DL (8.5-10.1); CARBON DIOXIDE LEVEL 27 MEQ/L (21-32); CHLORIDE LEVEL 108 MEQ/L (98-107); CREATININE FOR GFR 0.78 MG/DL (0.70-1.30); ETHYL ALCOHOL (ETHANOL) 0.004 % (0.000-0.010); GLOMERULAR FILTRATION RATE > 60.0 (>60); GLUCOSE, FASTING 75 MG/DL (70-100); SALICYLATE LEVEL 1.9 MG/DL (5.0-30.0); SODIUM LEVEL 139 MEQ/L (136-145); TOTAL PROTEIN 6.9 GM/DL (6.4-8.2)
[2021-08-13 03:50] LABS: AMPHETAMINES LEVEL URINE NEGATIVE (NEGATIVE); BARBITURATES URINE NEGATIVE (NEGATIVE); BENZODIAZEPINES URINE NEGATIVE (NEGATIVE); CANNABINOIDS URINE POSITIVE (NEGATIVE); COCAINE METABOLITE URINE NEGATIVE (NEGATIVE); METHADONE URINE NEGATIVE (NEGATIVE); OPIATES URINE NEGATIVE (NEGATIVE); PHENCYCLIDINE URINE NEGATIVE (NEGATIVE)
--- NOTE | 2021-08-13 14:15 | MHCRPDOC ---
[facility] Consultation Consultation DATE OF CONSULTATION: 08/13/21 CONSULTATION REQUESTED BY: ED team REASON FOR CONSULTATION: Suicidal ideation RELEVANT HISTORY: Patient is a 41-year-old man with history of schizophrenia who self presented last night following use of cannabis likely precipitated his underlying psychiatric condition. On interview after having night in the ED states " I am all right sir", states he is not suicidal and just wanted his left foot looked at the concern for some pain. He denies auditory visual hallucinations, states his mood is "level". He understands he is taking Invega Sustenna and is due for another shot August 28 of the 234 mg which he plans to receive as he [facility] whom he follows up with. Was offered voluntary admission but refused and feels he is ready go home to his mother's place in [place]. PAST PSYCHIATRIC HISTORY: Multiple past admissions, history of schizophrenia, schizoaffective disorder, at [facility] outpatient, takes Invega Sustenna PAST MEDICAL HISTORY: See care summary FAMILY HISTORY: Noncontributory PERSONAL AND SOCIAL HISTORY: The patient was born and raised in [place], lives with mother Resides in: [place] Marital Status: Single Employment: Unemployed SUBSTANCE ABUSE HISTORY: History of polysubstance abuse, cannabis primarily LEGAL HISTORY: Multiple times picked up by police MENTAL STATUS EXAMINATION: Patient is a 41-year old male, who is in no acute distress, average eye contact, calm, relaxed, fair hygiene, appears stated age Speech is normal rate, spontaneous Language skills are fair Thought processes including: Linear and logical, goal oriented and wants to return home and have foot treated, go to his outpatient appointments continue with his medication. Thought content: Denies suicidal ideation, intent or plan. Denies homicidal ideation, intent or plan Abstract reasoning, and computation: Fair Description of associations: Fair Description of abnormal or psychotic thoughts: Denies any of the following: hallucinations, paranoia, delusions, delusions, does not appear to be responding to internal stimuli, patient does not appear manic. Judgment: Limited Insight: Limited Orientation to x3 Recent and remote memory: Intact Attention span and concentration: Good Language: Norwegian Fund of knowledge: Below average based on interview Mood: " I am alright, pretty good" Affect: Euthymic, stable, full, mood congruent, appropriate DIAGNOSIS: 1. Schizophrenia per history 2. Substance-induced psychotic disorder PLAN: 1. Needs to continue home medications and have an outpatient appointment [facility], within 5 to 7 days. 2. Arrange to have safety plan established. 3. Does not meet criteria for involuntary admission at this time, despite being offered voluntary admission. Feels safe to return home, has supports, is on medications, has outpatient provider, does not have any symptoms of psychosis or leila or impulsivity or risky behavior. Educated the risks of using cannabis in context of a primary psychotic disorder. Vital Signs Vital Signs Date Time Temp Pulse Resp B/P (MAP) Pulse Ox O2 Delivery O2 Flow Rate FiO2 08/12/21 23:06 97.8 80 20 136/82 (100) 100 Room Air Laboratory Data 24H Labs Laboratory Tests 2 08/13/21 00:59: Nucleated Red Blood Cells % (auto) 0.0, Anion Gap 4L, Glomerular Filtration Rate > 60.0, Calcium Level 8.8, Total Bilirubin 0.4, Direct Bilirubin 0.1, Aspartate Amino Transf (AST/SGOT) 74H, Alanine Aminotransferase (ALT/SGPT) 205H, Alkaline Phosphatase 59, Total Protein 6.9, Albumin 3.1L, Albumin/Globulin Ratio 0.8, Thyroid Stimulating Hormone (TSH) 0.660, Salicylates Level 1.9L, Urine Opiates Screen NEGATIVE, Urine Methadone Screen NEGATIVE, Acetaminophen Level < 2.0L, Urine Barbiturates Screen NEGATIVE, Urine Phencyclidine Screen NEGATIVE, Urine Amphetamines Screen NEGATIVE, Urine Benzodiazepines Screen NEGATIVE, Urine Cocaine Metabolite Screen NEGATIVE, Urine Cannabinoids Screen POSITIVEH, Ethyl Alcohol Level 0.004 Home Medications Miscellaneous Medications Paliperidone Palmitate (Invega Sustenna) 234 Mg/1.5 Ml Syringe, (Reported) Allergies Coded Allergies: PERFUMES (Verified Allergy, Unknown, 09/22/20) JONO MATUTE MD Aug 13, 2021 14:15
== END 2021-08-13 14:53 | disposition home or self-care (01) ==
LOC: M ED 23:05
DX: F25.9 Schizoaffective disorder, unspecified (principal); F19.951 Other psychoactive substance use, unspecified with psychoactive substance-induced psychotic disorder with hallucinations; F32.9 Major depressive disorder, single episode, unspecified; F17.200 Nicotine dependence, unspecified, uncomplicated; Z79.899 Other long term (current) drug therapy

== ENCOUNTER 2021-08-14 15:54 | Emergency (ER) | payer MEDICAID ==
[~2021-08-14] VITALS: Ht 175.3 cm; Wt 71.9 kg
[2021-08-14 15:55] VITALS: BP 114/72
--- OUTSIDE RECORDS SUMMARY | 2021-08-14 16:01 | CCD ---
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, Moderate: Amphetamine-type sub stance Active 07/29/2021 Medications Rx Norm Medication Route Route Concept Start Date Stop Date Dosage Reggie quency Duration Formula Strength Dosage Form Dosage Form Code Dosage Description Medication Id Account Npid Author First Name Author Last Name Taxonomy Code Taxonomy Desc Phone Number [phone] Invega Sustenna 04/16/2021 234 mg/1.5 mL sy ringe 09895 [phone] Kathe Fitzgerald [id number] Nurse Practitioner [phone] Zyprexa by mouth [id number] 05/23/2021 08/09/2021 at bedtime 30 5 mg tablet 99498 [id number] [id number] Kathe Amilcar [id number] Nurse Enrique calderaitioner [phone] [id number] benztropine by mouth [id number] 05/23/2021 08/09/2021 at bedtime 30 1 mg tablet 29840 [id number] [id number] Kathe Amilcar [id number] Nurse Ian zapata [phone] [id number] prazosin by mouth [id number] 07/10/2021 08/09/2021 at bedtime 30 1 mg capsule 59063 [id number] [id number] Kathe Fitzgerald [id number] Nurse Ian zapata [phone] Social History Social History Element Description Concept Effective Date Smoking Status Unknown if ever smoked [id number] Immunizations No Data in Section Vital Signs No Data in Section Procedures Date Concept Id Description Targeted Site Concept Targeted Site Concept Type 07/29/2021 H2010 Injectable Medication Administra tion w/ Monitoring & Education CPT Patient has no history of implantable de vices Encounters Encounter Start Date End Date Encounter Type Description Diagnosis Di agnosis Desc Location Author First Name Author Last Name Npid Taxonomy Cod e Taxonomy Desc Phone Number Location Addr1 Location Addr2 Location [facility] Location [facility] Location Zip [id number] 07/29/2021 07/29/2021 H2010 Injectable Medi cation Administration w/ Monitoring & Education F20.9 Schizophrenia, unspecified [facility] Pam [phone] [id number] Registered Nurse [phone] [address] [place] [phone] Plan of Treatment No Data in Section Lab Results No Data in Section Instructions No Data in Section Insurance Providers Insurance Id Policy Effective Date Policy Thru Date Company N kishore [id number] 2016 [id number]
--- OUTSIDE RECORDS SUMMARY | 2021-08-14 16:01 | CCD ---
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, Moderate: Amphetamine-type sub stance Active 05/27/2021 Medications Rx Norm Medication Route Route Concept Start Date Stop Date Dosage Reggie quency Duration Formula Strength Dosage Form Dosage Form Code Dosage Description Medication Id Account Npid Author First Name Author Last Name Taxonomy Code Taxonomy Desc Phone Number [phone] Invega Sustenna 04/16/2021 234 mg/1.5 mL sy ringe 14153 [phone] Kathe Fitzgerald [id number] Nurse Practitioner [phone] Zyprexa by mouth [id number] 05/23/2021 06/22/2021 at bedtime 30 5 mg tablet 29185 [id number] [id number] Kathe Amilcar [id number] Nurse Enrique ctitioner [phone] [id number] benztropine by mouth [id number] 05/23/2021 06/22/2021 at bedtime 30 1 mg tablet 56588 [id number] Kathe Amilcar [id number] Nurse Ian subramaniantitioner [phone] [id number] Invega Trinza intramuscularly 04/03/2021 every three months 90 819 mg/2.625 mL syringe 55593 [phone] Kathe Fitzgerald [id number] Nurse Practitioner [phone] Social History Social History Element Description Concept Effective Date Smoking Status Unknown if ever smoked [id number] Immunizations No Data in Section Vital Signs No Data in Section Procedures Date Concept Id Description Targeted Site Concept Targeted Site Concept Type 05/27/2021 66398 Injectable Psychotro pic Medication Administration (Injection Only) CPT Patient has no history of implantable de vices Encounters Encounter Start Date End Date Encounter Type Description Diagnosis Di agnosis Desc Location Author First Name Author Last Name Npid Taxonomy Cod e Taxonomy Desc Phone Number Location Addr1 Location Addr2 Location [facility] Location Sta te Location Zip [id number] 05/27/2021 05/27/2021 65547 Injectable Psyc hotropic Medication Administration (Injection Only) F20.9 Schizophrenia, unspecified [facility] Wai Vásquez [phone] [id number] L icensed Practical Nurse [phone] [address] [address] Plan of Treatment No Data in Section Lab Results No Data in Section Instructions No Data in Section Insurance Providers Insurance Id Policy Effective Date Policy Thru Date [employer] N kishore [id number] 2016 [id number]
--- OUTSIDE RECORDS SUMMARY | 2021-08-14 16:01 | CCD ---
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, Moderate: Amphetamine-type sub stance Active 06/24/2021 Medications Rx Norm Medication Route Route Concept Start Date Stop Date Dosage Reggie quency Duration Formula Strength Dosage Form Dosage Form Code Dosage Description Medication Id Account Npid Author First Name Author Last Name Taxonomy Code Taxonomy Desc Phone Number [phone] Invega Sustenna 04/16/2021 234 mg/1.5 mL sy ringe [phone] Kathe Fitzgerald [id number] Nurse Practitioner [phone] Invega Trinza intramuscularly 04/03/2021 1 every three months 90 819 mg/2.625 mL syringe 77546 [phone] Kathe Amilcar [id number] Nurse Practitioner [phone] Social History Social History Element Description Concept Effective Date Smoking Status Unknown if ever smoked [id number] Immunizations No Data in Section Vital Signs No Data in Section Procedures Date Concept Id Description Targeted Site Concept Targeted Site Concept Type 06/24/2021 H2010 Injectable Medication Administra tion w/ Monitoring & Education CPT Patient has no history of implantable de vices Encounters Encounter Start Date End Date Encounter Type Description Diagnosis Di agnosis Desc Location Author First Name Author Last Name Npid Taxonomy Cod e Taxonomy Desc Phone Number Location Addr1 Location Addr2 Location City Location [place] Location Zip [id number] 06/24/2021 06/24/2021 H2010 Injectable Medi cation Administration w/ Monitoring & Education F20.9 Schizophrenia, unspecified [facility] Wai Thalia [phone] [id number] 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
--- OUTSIDE RECORDS SUMMARY | 2021-08-14 16:02 | CCD ---
Author Author [facility] Organization [facility] Address Unknown Phone Unavailable Support Name Relationship Address Phone Hudson GUTIERREZ, Pasha Next Of Kin [address] [place] [address] Diamante Costa Next Of Kin [address] [place] [address] Dwain Joseph DO Next Of Kin [address] [place] [address] Cameron Bingham MD Next Of Kin [address] [place] [address] SELFGARY Next Of Kin [address] [place] [address] YONI JACK Next Of Kin [address] [place] [address] CORRECTIONAL, [place] Next Of Kin [address] [place] [address] Monique Conklin MD Next Of Kin [address] [place] [phone] YONI CALHOUN Next Of Kin [address] [place] [address] Isabelle Manning Next Of Kin [address] [place] [address] Pat Gallo DO Next Of Kin [address] [place] [address] DISABLED Next Of Kin Unknown Unavailable [place] Self Next Of Kin [address] [place] [id number] SELF, JUNIOR Next Of Kin [address] [place] [address] UE Next Of Kin Unknown Unavailable SIMON WALL Next Of Kin [address] [place] [address] SELF, JUNIOR [address] [place] [address] Unavailable Care Team Providers Care Financial Secretary Name Role Phone Farden, M Rambo Unavailable Unavailable Farden, M Rambo Unavailable Unavailable Farden, M Rambo Unavailable Unavailable Farden, M Rambo Unavailable Unavailable Farden, M Rambo Unavailable Unavailable Farden, M Rambo Unavailable Unavailable Farden, M Rambo Unavailable Unavailable Farden, M Rambo Unavailable Unavailable Farden, M Rambo Unavailable Unavailable Farden, M Rambo Unavailable Unavailable Farden, M Rambo Unavailable Unavailable Farden, M Rambo Unavailable Unavailable Farden, M Rambo Unavailable Unavailable Farden, M Rambo Unavailable Unavailable Farden, M Rambo Unavailable Unavailable Farden, M Rambo Unavailable Unavailable Farden, M Rambo Unavailable Unavailable Farden, M Rambo Unavailable Unavailable Farden, M Rambo Unavailable Unavailable SYSTEM IN, NOT IN PROVIDER Unavailable Unavailable BILJONNATHAN SARGENT MD Unavailable Unavailable BILAL, JONNATHAN GUTIERREZ Unavailable Unavailable BILAL, JONNATHAN GUTIERREZ Unavailable Unavailable BILAL, JONNATHAN GUTIERREZ Unavailable Unavailable BILAL, JONNATHAN GUTIERREZ Unavailable Unavailable BILAL, JONNATHAN GUTIERREZ Unavailable Unavailable BILAL, JONNATHAN GUTIERREZ Unavailable Unavailable BILAL, JONNATHAN GUTIERREZ Unavailable Unavailable BILAL, JONNATHAN GUTIERREZ Unavailable Unavailable BILAL, JONNATHAN GUTIERREZ Unavailable Unavailable Gina Nash Unavailable AMILCAR, H ANSELMO BORDER PATROL AGENT Unavailable Unavailable AMILCAR, H ANSELMO BORDER PATROL AGENT Unavailable Unavailable AMILCAR, H ANSELMO BORDER PATROL AGENT Unavailable Unavailable AMILCAR, H ANSELMO BORDER PATROL AGENT Unavailable Unavailable AMILCAR, H ANSELMO BORDER PATROL AGENT Unavailable Unavailable AMILCAR, H ANSELMO BORDER PATROL AGENT Unavailable Unavailable AMILCAR, H ANSELMO BORDER PATROL AGENT Unavailable Unavailable AMILCAR, H ANSELMO BORDER PATROL AGENT Unavailable Unavailable AMILCAR, H ANSELMO BORDER PATROL AGENT Unavailable Unavailable Jossie Marcelino Unavailable Rotella, Jossy Unavailable Unavailable Thalia Carreno Unavailable Bonifacio Escobar MD Unavailable Unavailable Bonifacio Escobar MD Unavailable Unavailable Bonifacio Escobar MD Unavailable Unavailable Pam Juarez Unavailable ALIASES , ORGANIZATION NPI Unavailable Unavailable ALIASES , ORGANIZATION NPI Unavailable Unavailable ALIASES , ORGANIZATION NPI Unavailable Unavailable ALIASES , ORGANIZATION NPI Unavailable Unavailable ALIASES , ORGANIZATION NPI Unavailable Unavailable ALIASES , ORGANIZATION NPI Unavailable Unavailable ALIASES , ORGANIZATION NPI Unavailable Unavailable ALIASES , ORGANIZATION NPI Unavailable Unavailable ALIASES , ORGANIZATION NPI Unavailable Unavailable ALIASES , ORGANIZATION NPI Unavailable Unavailable ALIASES , ORGANIZATION NPI Unavailable Unavailable ALIASES , ORGANIZATION NPI Unavailable Unavailable ALIASES , ORGANIZATION NPI Unavailable Unavailable ALIASES , ORGANIZATION NPI Unavailable Unavailable ALIASES , ORGANIZATION NPI Unavailable Unavailable ALIASES , ORGANIZATION NPI Unavailable Unavailable ALIASES , ORGANIZATION NPI Unavailable Unavailable ALIASES , ORGANIZATION NPI Unavailable Unavailable ALIASES , ORGANIZATION NPI Unavailable Unavailable ALIASES , ORGANIZATION NPI Unavailable Unavailable ALIASES , ORGANIZATION NPI Unavailable Unavailable ALIASES , ORGANIZATION NPI Unavailable Unavailable ALIASES , ORGANIZATION NPI Unavailable Unavailable ALIASES , ORGANIZATION NPI Unavailable Unavailable ALIASES , ORGANIZATION NPI Unavailable Unavailable ALIASES , ORGANIZATION NPI Unavailable Unavailable ALIASES , ORGANIZATION NPI Unavailable Unavailable ALIASES , ORGANIZATION NPI Unavailable Unavailable ALIASES , ORGANIZATION NPI Unavailable Unavailable ALIASES , ORGANIZATION NPI Unavailable Unavailable ALIASES , ORGANIZATION NPI Unavailable Unavailable ALIASES , ORGANIZATION NPI Unavailable Unavailable ALIASES , ORGANIZATION NPI Unavailable Unavailable ALIASES , ORGANIZATION NPI Unavailable Unavailable ALIASES , ORGANIZATION NPI Unavailable Unavailable ALIASES , ORGANIZATION NPI Unavailable Unavailable ALIASES , ORGANIZATION NPI Unavailable Unavailable ALIASES , ORGANIZATION NPI Unavailable Unavailable ALIASES , ORGANIZATION NPI Unavailable Unavailable ALIASES , ORGANIZATION NPI Unavailable Unavailable ALIASES , ORGANIZATION NPI Unavailable Unavailable ALIASES , ORGANIZATION NPI Unavailable Unavailable ALIASES , ORGANIZATION NPI Unavailable Unavailable ALIASES , ORGANIZATION NPI Unavailable Unavailable ALIASES , ORGANIZATION NPI Unavailable Unavailable ALIASES , ORGANIZATION NPI Unavailable Unavailable ALIASES , ORGANIZATION NPI Unavailable Unavailable ALIASES , ORGANIZATION NPI Unavailable Unavailable ALIASES , ORGANIZATION NPI Unavailable Unavailable ALIASES , ORGANIZATION NPI Unavailable Unavailable ALIASES , ORGANIZATION NPI Unavailable Unavailable ALIASES , ORGANIZATION NPI Unavailable Unavailable ALIASES , ORGANIZATION NPI Unavailable Unavailable ALIASES , ORGANIZATION NPI Unavailable Unavailable ALIASES , ORGANIZATION NPI Unavailable Unavailable ALIASES , ORGANIZATION NPI Unavailable Unavailable ALIASES , ORGANIZATION NPI Unavailable Unavailable ALIASES , ORGANIZATION NPI Unavailable Unavailable ALIASES , ORGANIZATION NPI Unavailable Unavailable ALIASES , ORGANIZATION NPI Unavailable Unavailable ALIASES , ORGANIZATION NPI Unavailable Unavailable ALIASES , ORGANIZATION NPI Unavailable Unavailable ALIASES , ORGANIZATION NPI Unavailable Unavailable ALIASES , ORGANIZATION NPI Unavailable Unavailable ALIASES , ORGANIZATION NPI Unavailable Unavailable ALIASES , ORGANIZATION NPI Unavailable Unavailable ALIASES , ORGANIZATION NPI Unavailable Unavailable ALIASES , ORGANIZATION NPI Unavailable Unavailable ALIASES , ORGANIZATION NPI Unavailable Unavailable ALIASES , ORGANIZATION NPI Unavailable Unavailable ALIASES , ORGANIZATION NPI Unavailable Unavailable ALIASES , ORGANIZATION NPI Unavailable Unavailable ALIASES , ORGANIZATION NPI Unavailable Unavailable ALIASES , ORGANIZATION NPI Unavailable Unavailable Solomon Treviño MD Unavailable Unavailable [...] Unavailable Unavailable Solomon Treviño MD Unavailable Unavailable EGORHO, F KALLI FPMHNP Unavailable Unavailable EGORHO, F KALLI FPMHNP Unavailable Unavailable EGORHO, F KALLI FPMHNP Unavailable Unavailable EGORHO, F KALLI FPMHNP Unavailable Unavailable EGORHO, F KALLI FPMHNP Unavailable Unavailable EGORHO, F KALLI FPMHNP Unavailable Unavailable EGORHO, F KALLI FPMHNP Unavailable Unavailable EGORHO, F KALLI FPMHNP Unavailable Unavailable Colon, Castro Unavailable Unavailable Colon, Castro Unavailable Unavailable Colon, Casrto Unavailable Unavailable Colon, Castro Unavailable Unavailable Re-disclosure Warning The records that [...] is protected by Article 27-F of the [facility] Public Health law. If you continue you may have access to information: Regarding HIV / AIDS; Provided by facilities licensed or operated by the [facility] Office of Mental Health; or Provided by the [facility] Office for People With Developmental Disabilities. If such information is present, then the following [facility] mandated warning applies: This information has been [...] Substance Reaction Status Data Source(s ) Drug allergy No Known Allergies No Known Allergies [facility] Propensity to adverse reactions NO KNOWN ALLERGIES NO KNOWN ALLERGIES [facility] Encounters Encounter Providers Location Date Indications Data Source(s ) Injectable Medication Administration w/ Monitoring & E ducation Attender: Pammurphy Isbellpo [facility] 07/29/2021 02:30:00 AM EDT - 07/29/2021 02:30:00 AM EDT [facility] ([facility]) Attender: Pam Juarez 07/29/2021 12:00:00 AM EDT [facility] ([facility]) Injectable Medication Administration w/ Monitoring & E ducation Attender: Thalia Carreno [facility] 06/24/2021 10:45:00 AM EDT - 06/24/2021 10:45:00 AM EDT [facility] ([facility]) Attender: Thalia Carreno 06/24/2021 12:00:00 AM EDT [facility] ([facility]) Injectable Psychotropic Medication Administration (Inj ection Only) Attender: Thalia Carreno [facility] 05/27/2021 08:15:00 AM EDT - 05/27/2021 08:15:00 AM EDT [facility] ([facility]) Attender: Thalia Carreno 05/27/2021 12:00:00 AM EDT [facility] ([facility]) Brief Individual Psychotherapy - 30 min Attender: Gina yun [facility] 05/13/2021 08:30:00 AM EDT - 05/13/2021 08:30:00 AM EDT [facility] ([facility]) Attender: Gina Nash 05/13/2021 12:00:00 AM EDT [facility] ([facility]) Attender: Pam Juarez 04/04/2021 12:00:00 AM EDT [facility] ([facility]) Injectable Medication Administration w/ Monitoring & E ducation Attender: Pam Borjapo [facility] Maria Alejandra 04/03/2021 09:00:00 AM EDT - 04/03/2021 09:00:00 AM EDT [facility] ([facility]) Outpatient Attender: ANSELMO APONTE NP [facility] Mike garcía 04/03/2021 08:30:00 AM EDT - 04/03/2021 08:30:00 AM EDT [facility] ([facility]) Attender: ANSELMO APONTE NP 04/03/2021 12:00:00 AM EDT [facility] ([facility]) Outpatient Attender: ANSELMO APONTE NP [facility] Mike garcía 03/27/2021 11:00:00 AM EDT - 03/27/2021 11:00:00 AM EDT [facility] ([facility]) Attender: ANSELMO APONTE NP 03/27/2021 12:00:00 AM EDT [facility] ([facility]) Outpatient Attender: ANSELMO APONTE NP [facility] Mike garcía 03/19/2021 03:00:00 AM EDT - 03/19/2021 03:00:00 AM EDT [facility] ([facility]) Attender: ANSELMO APONTE NP 03/19/2021 12:00:00 AM EDT [facility] ([facility]) Inpatient Attender: JONNATHAN Marieeitter: JONNATHAN TRACY MD 02/27/2021 08:12:00 PM EDT - 03/08/2021 03:27:00 PM EDT Suicidal Ideation / Homicidal Ideation [facility] Suicidal Ideation / Homicidal Ideation Patient discharged. Outpatient Attender: JONNATHAN Bonilla tter: JONNATHAN TRACY MDConsultant: JONNATHAN TRACY MD 02/27/2021 08:12:00 PM EDT Suicidal Ideation / H omicidal Ideation [facility] Suicidal Ideation / Homicidal Ideation Outpatient Attender: JONNATHAN TRACY MDAdmi tter: JONNATHAN MAIAL MDConsultant: JONNATHAN TRACY MD 02/27/2021 08:12:00 PM EDT Suicidal Ideation / [facility]idal Ideation [facility] Su[facility] / Homicidal Ideation Outpatient Attender: Castro ColonAdmitter : JONNATHAN MAIAL MDConsultant: JONNATHAN TRACY MD 02/27/2021 08:12:00 PM EDT Suicidal Ideation / H omicidal Ideation [facility] Suicidal Ideation / Homicidal Ideation Outpatient Attender: JONNATHAN TRACY MDAdmi tter: JONNATHAN TRACY MDConsultant: JONNATHAN TRACY MD 02/27/2021 08:12:00 PM EDT Suicidal Ideation / H omicidal Ideation [facility] Suicidal Ideation / Homicidal Ideation Outpatient Attender: JONNATHAN TRACY MDAdmi tter: JONNATHAN TRACY MDConsultant: JONNATHAN TRACY MD 02/27/2021 08:12:00 PM EDT Suicidal Ideation / H omicidal Ideation [facility] Suicidal Ideation / Homicidal Ideation Outpatient Attender: JONNATHAN TRACY MDAdmi tter: JONNATHAN TRACY MDConsultant: JONNATHAN TRACY MD 02/27/2021 08:12:00 PM EDT Suicidal Ideation / H omicidal Ideation [facility] Suicidal Ideation / Homicidal Ideation Outpatient Attender: Castro ColonAdmitter : JONNATHAN TRACY MDConsultant: JONNATHAN TRACY MD 02/27/2021 08:12:00 PM EDT Suicidal Ideation / H omicidal Ideation [facility] Suicidal Ideation / Homicidal Ideation Outpatient Attender: Castro ColonAdmitter : JONNATHAN TRACY MDConsultant: JONNATHAN TRACY MD 02/27/2021 08:12:00 PM EDT Suicidal Ideation / H omicidal Ideation [facility] Suicidal Ideation / Homicidal Ideation Outpatient Attender: JONNATHAN TRACY MDAdmi tter: JONNATHAN TRACY MDConsultant: JONNATHAN TRACY MD 02/27/2021 08:12:00 PM EDT Suicidal Ideation / H omicidal Ideation [facility] Suicidal Ideation / Homicidal Ideation Outpatient Attender: Rambo Pedroza mitter: JONNATHAN TRACY MDConsultant: JONNATHAN TRACY MD 02/27/2021 08:12:00 PM EDT Suicidal Ideation / H omicidal Ideation [facility] Suicidal Ideation / Homicidal Ideation Outpatient Attender: ANSELMO APONTE NP [facility] 02/12/2021 10:30:00 AM EDT - 02/12/2021 10:30:00 AM EDT [facility] ([facility]) Attender: ANSELMO APONTE NP 02/12/2021 12:00:00 AM EDT [facility] ([facility]) Outpatient Attender: ANSELMO APONTE NP [facility] 02/07/2021 11:30:00 AM EDT - 02/07/2021 11:30:00 AM EDT [facility] ([facility]) Attender: ANSELMO APONTE NP 02/07/2021 12:00:00 AM EDT [facility] ([facility]) Brief Individual Psychotherapy - 30 min Attender: Gina yun [facility] 02/01/2021 02:00:00 AM EDT - 02/01/2021 02:00:00 AM EDT [facility] ([facility]) Attender: Gina Nash 02/01/2021 12:00:00 AM EDT [facility] ([facility]) Injectable Psychotropic Medication Administration (Inj ection Only) Attender: Thalia Carreno [facility] 01/23/2021 10:00:00 AM EDT - 01/23/2021 10:00:00 AM EDT [facility] ([facility]) Outpatient Attender: ANSELMO APONTE NP [facility] 01/23/2021 09:15:00 AM EDT - 01/23/2021 09:15:00 AM EDT [facility] ([facility]) Attender: ANSELMO APONTE NP 01/23/2021 12:00:00 AM EDT [facility] ([facility]) Attender: Thalia Carreno 01/23/2021 12:00:00 AM EDT [facility] ([facility]) Injectable Medication Administration w/ Monitoring & E ducation Attender: Pam Juarez [facility] 01/18/2021 11:00:00 AM EDT - 01/18/2021 11:00:00 AM EDT [facility] ([facility]) Attender: Pam Juarez 01/18/2021 12:00:00 AM EDT [facility] ([facility]) Outpatient Attender: ANSELMO APONTE NP [facility] raquel 01/17/2021 09:00:00 AM EDT - 01/17/2021 09:00:00 AM EDT [facility] ([facility]) Attender: ANSELMO APONTE NP 01/17/2021 12:00:00 AM EDT [facility] ([facility]) Outpatient Attender: ANSELMO APONTE NP [facility] raquel 01/01/2021 02:30:00 AM EST - 01/01/2021 02:30:00 AM EST [facility] ([facility]) Attender: ANSELMO APONTE NP 01/01/2021 12:00:00 AM EST [facility] ([facility]) Injectable Psychotropic Medication Administration (Inj ection Only) Attender: Jossie Marcelino [facility] 12/28/2020 10:30:00 AM EST - 12/28/2020 10:30:00 AM EST [facility] ([facility]) Attender: Jossie Marcelino 12/28/2020 12:00:00 AM EST [facility] ([facility]) Outpatient Attender: Victorino Escobar MD [facility] Mike raquel 12/20/2020 09:30:00 AM EST - 12/20/2020 09:30:00 AM EST [facility] ([facility]) Attender: Victorino Escobar MD 12/20/2020 12:00:00 AM EST [facility] ([facility]) Outpatient Attender: Victorino Escobar MD [facility] Mike garcía 12/06/2020 12:30:00 PM EST - 12/06/2020 12:30:00 PM EST [facility] ([facility]) Attender: Victorino Escobar MD 12/06/2020 12:00:00 AM EST [facility] ([facility]) Injectable Medication Administration w/ Monitoring & E ducation Attender: ORGANIZATION NPI ALIASES [facility] 11/15/2020 11:15: 00 AM EST - 11/15/2020 11:15:00 AM EST [facility] ([facility]) Outpatient Attender: Victorino Escobar MD [facility] Mike garcía 11/15/2020 11:00:00 AM EST - 11/15/2020 11:00:00 AM EST [facility] ([facility]) Attender: ORGANIZATION NPI ALIASES * 11/15/2020 12:00:00 AM EST [facility] ([facility]) Attender: Victorino Escobar MD 11/15/2020 12:00:00 AM EST [facility] ([facility]) Injectable Psychotropic Medication Administration (Inj ection Only) Attender: Jossy Mejia [facility] 10/18/2020 10:30:00 AM EST - 10/18/2020 10:30:00 AM EST [facility] ([facility]) Attender: Jossy Mejia 10/18/2020 12:00:00 AM EST [facility] ([facility]) Injectable Psychotropic Medication Administration (Inj ection Only) Attender: Jossy Mejia [facility] 10/15/2020 11:00:00 AM EST - 10/15/2020 11:00:00 AM EST [facility] ([facility]) Attender: Jossy Mejia 10/15/2020 12:00:00 AM EST [facility] ([facility]) Injectable Psychotropic Medication Administration (Inj ection Only) Attender: Jossy Mejia [facility] 10/04/2020 10:30:00 AM EST - 10/04/2020 10:30:00 AM EST [facility] ([facility]) Outpatient Attender: KALLI MOLINAURSZULA [facility] J ail 10/04/2020 10:00:00 AM EST - 10/04/2020 10:00:00 AM EST [facility] ([facility]) Attender: Jossy Mejia 10/04/2020 12:00:00 AM EST [facility] ([facility]) Attender: KALLI MOLINAURSZULA 10/04/2020 12:00: 00 AM EST [facility] ([facility]) Outpatient Referrer: PROVIDER SYSTEM [place] 09/22/2020 0 2:27:00 PM EST schizophrenia, hallucinations, substance abuse [facility] schizophrenia, hallucinations, substance abuse Injectable Psychotropic Medication Administration (Inj ection Only) Attender: Jossy Mejia [facility] 09/12/2020 09:30:00 AM EST - 09/12/2020 09:30:00 AM EST [facility] ([facility]) Outpatient Attender: KALLI MOLINAURSZULA [facility] 09/12/2020 09:00:00 AM EST - 09/12/2020 09:00:00 AM EST [facility] ([facility]) Attender: KALLI VALLEJO 09/12/2020 12:00: 00 AM EST [facility] ([facility]) Attender: Jossy Mejia 09/12/2020 12:00:00 AM EST [facility] ([facility]) Outpatient Attender: KALLI MOLINAURSZULA [facility] ail 08/10/2020 02:00:00 AM EDT - 08/10/2020 02:00:00 AM EDT [facility] ([facility]) Attender: KALLI MOLINAURSZULA 08/10/2020 12:00: 00 AM EDT [facility] ([facility]) Injectable Psychotropic Medication Administration (Inj ection Only) Attender: Jossy Mejia [facility] 07/13/2020 02:00:00 AM EDT - 07/13/2020 02:00:00 AM EDT [facility] ([facility]) Attender: Jossy Mejia 07/13/2020 12:00:00 AM EDT [facility] ([facility]) Outpatient Attender: Pasha Treviño MD 07/12/2020 02:46:50 PM EDT [facility] Outpatient Attender: Pasha Treviño MD 06/21/2020 10:56:00 AM EDT [facility] Functional Status Medications Medication Brand Name Start Date Product Form Dose Route Admi nistrative Instructions Pharmacy Instructions Status Indications Reaction Description Data Source(s) Prazosin 1 MG Oral Capsule prazosin 07/10/2021 12:00:00 AM EDT 1 mg by mouth completed <td ID="Medicat ionRxNorm_4">554505</td><td ID="MedicationMedication_4">prazosin</td><td ID="MedicationRoute_4">by mouth</td><td ID="MedicationRouteConcept_4">G52933</td><td ID="MedicationStartDate_4">07/10/2021</td><td ID="MedicationStopDate_4">08/09/2021</td><td ID="MedicationDosageFrequency_4">at bedtime</td><td ID="MedicationDuration_4">30</td><td ID="MedicationFormulaStrength_4">1 mg</td><td ID="MedicationDosageForm_4">capsule</td><td ID="MedicationDosageFormCode_4"></td><td ID="MedicationDosageDescription_4"></td><td ID="MedicationMedicationId_4">[id number]</td><td ID="MedicationAccount_4">[id number]</td><td ID="MedicationNpid_4">[id number]</td><td ID="MedicationAuthorFirstName_4">Anselmo</td><td ID="MedicationAuthorLastName_4">Amilcar</td><td ID="MedicationTaxonomyCode_4">[id number]</td><td ID="MedicationTaxonomyDesc_4">Nurse Practitioner</td><td ID="MedicationPhoneNumber_4">[phone]</td> [facility] olanzapine 5 MG Oral Tablet [Zyprexa] Zyprexa 05/23/2021 12:00:00 AM EDT 5 mg by mouth completed <td ID="Medica tionRxNorm_2">[id number]</td><td ID="MedicationMedication_2">Zyprexa</td><td ID="MedicationRoute_2">by mouth</td><td ID="MedicationRouteConcept_2">R67503</td><td ID="MedicationStartDate_2">05/23/2021</td><td ID="MedicationStopDate_2">08/09/2021</td><td ID="MedicationDosageFrequency_2">at bedtime</td><td ID="MedicationDuration_2">30</td><td ID="MedicationFormulaStrength_2">5 mg</td><td ID="MedicationDosageForm_2">tablet</td><td ID="MedicationDosageFormCode_2"></td><td ID="MedicationDosageDescription_2"></td><td ID="MedicationMedicationId_2">[id number]</td><td ID="MedicationAccount_2">[id number]</td><td ID="MedicationNpid_2">[id number]</td><td ID="MedicationAuthorFirstName_2">Anselmo</td><td ID="MedicationAuthorLastName_2">Amilcar</td><td ID="MedicationTaxonomyCode_2">[id number]</td><td ID="MedicationTaxonomyDesc_2">Nurse Practitioner</td><td ID="MedicationPhoneNumber_2">[phone]</td> [facility] ([facility]) benztropine mesylate 1 MG Oral Tablet benztropine 05/23/2021 12:00 :00 AM EDT 1 mg by mouth completed <td ID="Me dicationRxNorm_3">[id number]</td><td ID="MedicationMedication_3">benztropine</td><td ID="MedicationRoute_3">by mouth</td><td ID="MedicationRouteConcept_3">F01028</td><td ID="MedicationStartDate_3">05/23/2021</td><td ID="MedicationStopDate_3">08/09/2021</td><td ID="MedicationDosageFrequency_3">at bedtime</td><td ID="MedicationDuration_3">30</td><td ID="MedicationFormulaStrength_3">1 mg</td><td ID="MedicationDosageForm_3">tablet</td><td ID="MedicationDosageFormCode_3"></td><td ID="MedicationDosageDescription_3"></td><td ID="MedicationMedicationId_3">[id number]</td><td ID="MedicationAccount_3">[id number]</td><td ID="MedicationNpid_3">[id number]</td><td ID="MedicationAuthorFirstName_3">Anselmo</td><td ID="MedicationAuthorLastName_3">Amilcar</td><td ID="MedicationTaxonomyCode_3">[id number]</td><td ID="MedicationTaxonomyDesc_3">Nurse Practitioner</td><td ID="MedicationPhoneNumber_3">[phone]</td> [facility] ([facility]) 1.5 ML paliperidone palmitate 156 MG/ML Prefilled Syri nge [Invega] Invega Sustenna 04/16/2021 12:00:00 AM EDT 234 mg/1.5 compl eted <td ID="MedicationRxNorm_1">[id number]</td><td ID="MedicationMedication_1">Invega Sustenna</td><td ID="MedicationRoute_1"></td><td ID="MedicationRouteConcept_1"></td><td ID="MedicationStartDate_1">04/16/2021</td><td ID="MedicationStopDate_1"></td><td ID="MedicationDosageFrequency_1"></td><td ID="MedicationDuration_1"></td><td ID="MedicationFormulaStrength_1">234 mg/1.5 mL</td><td ID="MedicationDosageForm_1">syringe</td><td ID="MedicationDosageFormCode_1"></td><td ID="MedicationDosageDescription_1"> </td><td ID="MedicationMedicationId_1">[id number]</td><td ID="MedicationAccount_1">[id number]</td><td ID="MedicationNpid_1">[id number]</td><td ID="MedicationAuthorFirstName_1">Anselmo</td><td ID="MedicationAuthorLastName_1">Amilcar</td><td ID="MedicationTaxonomyCode_1">[id number]</td><td ID="MedicationTaxonomyDesc_1">Nurse Practitioner</td><td ID="MedicationPhoneNumber_1">[phone]</td> [facility] ([facility]) 2.625 ML paliperidone palmitate 312 MG/ML Prefilled Sy ringe [Invega] Invega Trinza 04/03/2021 12:00:00 AM EDT 819 mg/2.625 compl eted <td ID="MedicationRxNorm_3">[id number]</td><td ID="MedicationMedication_3">Invega Trinza</td><td ID="MedicationRoute_3">intramuscularly</td><td ID="MedicationRouteConcept_3"></td><td ID="MedicationStartDate_3">04/03/2021</td><td ID="MedicationStopDate_3">07/02/2021</td><td ID="MedicationDosageFrequency_3">every three months</td><td ID="MedicationDuration_3">90</td><td ID="MedicationFormulaStrength_3">819 mg/2.625 mL</td><td ID="MedicationDosageForm_3">syringe</td><td ID="MedicationDosageFormCode_3"></td><td ID="MedicationDosageDescription_3"></td><td ID="MedicationMedicationId_3">[id number]</td><td ID="MedicationAccount_3">[id number]</td><td ID="MedicationNpid_3">[id number]</td><td ID="MedicationAuthorFirstName_3">Anselmo</td><td ID="MedicationAuthorLastName_3">Amilcar</td><td ID="MedicationTaxonomyCode_3">[id number]</td><td ID="MedicationTaxonomyDesc_3"> Nurse Practitioner</td><td ID="MedicationPhoneNumber_3">[phone]</td> [facility] ([facility]) 2.625 ML paliperidone palmitate 312 MG/ML Prefilled Sy ringe [Invega] Ml Roth 04/03/2021 12:00:00 AM EDT 819 mg/2.625 compl eted <td ID="MedicationRxNorm_4">[id number]</td><td ID="MedicationMedication_4">Invega Trinza</td><td ID="MedicationRoute_4">intramuscularly</td><td ID="MedicationRouteConcept_4"></td><td ID="MedicationStartDate_4">04/03/2021</td><td ID="MedicationStopDate_4">07/02/2021</td><td ID="MedicationDosageFrequency_4">every three months</td><td ID="MedicationDuration_4">90</td><td ID="MedicationFormulaStrength_4">819 mg/2.625 mL</td><td ID="MedicationDosageForm_4">syringe</td><td ID="MedicationDosageFormCode_4"></td><td ID="MedicationDosageDescription_4"></td><td ID="MedicationMedicationId_4">[id number]</td><td ID="MedicationAccount_4">[id number]</td><td ID="MedicationNpid_4">[id number]</td><td ID="MedicationAuthorFirstName_4">Anselmo</td><td ID="MedicationAuthorLastName_4">Amilcar</td><td ID="MedicationTaxonomyCode_4">[id number]</td><td ID="MedicationTaxonomyDesc_4"> Nurse Practitioner</td><td ID="MedicationPhoneNumber_4">[phone]</td> [facility] ([facility]) haloperidol decanoate haloperidol decanoate 04/03/2021 12:00:00 AM EDT 100 mg/mL completed <td ID="Me dicationRxNorm_2">[id number]</td><td ID="MedicationMedication_2">haloperidol decanoate</td><td ID="MedicationRoute_2">intramuscularly</td><td ID="MedicationRouteConcept_2"> </td><td ID="MedicationStartDate_2">04/03/2021</td><td ID="MedicationStopDate_2">04/03/2021</td><td ID="MedicationDosageFrequency_2">every four weeks</td><td ID="MedicationDuration_2">28</td><td ID="MedicationFormulaStrength_2">100 mg/mL</td><td ID="MedicationDosageForm_2">solution</td><td ID="MedicationDosageFormCode_2"></td><td ID="MedicationDosageDescription_2"></td><td ID="MedicationMedicationId_2">[id number]</td><td ID="MedicationAccount_2">[id number]</td><td ID="MedicationNpid_2">[id number]</td><td ID="MedicationAuthorFirstName_2">Anselmo</td><td ID="MedicationAuthorLastName_2">Amilcar</td><td ID="MedicationTaxonomyCode_2">[id number]</td><td ID="MedicationTaxonomyDesc_2"> Nurse Practitioner</td><td ID="MedicationPhoneNumber_2">[phone]</td> [facility] ([facility]) benztropine mesylate 1 MG Oral Tablet benztropine 04/03/2021 12:00 :00 AM EDT 1 mg by mouth completed <td ID="Me dicationRxNorm_2">594147</td><td ID="MedicationMedication_2">benztropine</td><td ID="MedicationRoute_2">by mouth</td><td ID="MedicationRouteConcept_2">C87568</td><td ID="MedicationStartDate_2">04/03/2021</td><td ID="MedicationStopDate_2">05/03/2021</td><td ID="MedicationDosageFrequency_2">at bedtime</td><td ID="MedicationDuration_2">30</td><td ID="MedicationFormulaStrength_2">1 mg</td><td ID="MedicationDosageForm_2">tablet</td><td ID="MedicationDosageFormCode_2"></td><td ID="MedicationDosageDescription_2"></td><td ID="MedicationMedicationId_2">[id number]</td><td ID="MedicationAccount_2">[id number]</td><td ID="MedicationNpid_2">[id number]</td><td ID="MedicationAuthorFirstName_2">Anselmo</td><td ID="MedicationAuthorLastName_2">Amilcar</td><td ID="MedicationTaxonomyCode_2">[id number]</td><td ID="MedicationTaxonomyDesc_2">Nurse Practitioner</td><td ID="MedicationPhoneNumber_2">[phone]</td> [facility] ([facility]) olanzapine 5 MG Oral Tablet [Zyprexa] Zyprexa 04/03/2021 12:00:00 AM EDT 5 mg by mouth completed <td ID="Medica tionRxNorm_1">497543</td><td ID="MedicationMedication_1">Zyprexa</td><td ID="MedicationRoute_1">by mouth</td><td ID="MedicationRouteConcept_1">T68706</td><td ID="MedicationStartDate_1">04/03/2021</td><td ID="MedicationStopDate_1">05/03/2021</td><td ID="MedicationDosageFrequency_1">at bedtime</td><td ID="MedicationDuration_1">30</td><td ID="MedicationFormulaStrength_1">5 mg</td><td ID="MedicationDosageForm_1">tablet</td><td ID="MedicationDosageFormCode_1"></td><td ID="MedicationDosageDescription_1"></td><td ID="MedicationMedicationId_1">[id number]</td><td ID="MedicationAccount_1">[id number]</td><td ID="MedicationNpid_1">[id number]</td><td ID="MedicationAuthorFirstName_1">Anselmo</td><td ID="MedicationAuthorLastName_1">Amilcar</td><td ID="MedicationTaxonomyCode_1">[id number]</td><td ID="MedicationTaxonomyDesc_1">Nurse Practitioner</td><td ID="MedicationPhoneNumber_1">[phone]</td> [facility] 2.625 ML paliperidone palmitate 312 MG/ML Prefilled Sy ringe [Invega] Invega Trinza 04/03/2021 12:00:00 AM EDT 819 mg/2.625 compl eted <td ID="MedicationRxNorm_5">[id number]</td><td ID="MedicationMedication_5">Invega Trinza</td><td ID="MedicationRoute_5">intramuscularly</td><td ID="MedicationRouteConcept_5"></td><td ID="MedicationStartDate_5">04/03/2021</td><td ID="MedicationStopDate_5">07/02/2021</td><td ID="MedicationDosageFrequency_5">every three months</td><td ID="MedicationDuration_5">90</td><td ID="MedicationFormulaStrength_5">819 mg/2.625 mL</td><td ID="MedicationDosageForm_5">syringe</td><td ID="MedicationDosageFormCode_5"></td><td ID="MedicationDosageDescription_5"></td><td ID="MedicationMedicationId_5">39373</td><td ID="MedicationAccount_5">[id number]</td><td ID="MedicationNpid_5">[id number]</td><td ID="MedicationAuthorFirstName_5">Anselmo</td><td ID="MedicationAuthorLastName_5">Amilcar</td><td ID="MedicationTaxonomyCode_5">[id number]</td><td ID="MedicationTaxonomyDesc_5"> Nurse Practitioner</td><td ID="MedicationPhoneNumber_5">[phone]</td> [facility] ([facility] benztropine mesylate 1 MG Oral Tablet benztropine 04/03/2021 12:00 :00 AM EDT 1 mg by mouth completed <td ID="Me dicationRxNorm_4">381795</td><td ID="MedicationMedication_4">benztropine</td><td ID="MedicationRoute_4">by mouth</td><td ID="MedicationRouteConcept_4">Z99485</td><td ID="MedicationStartDate_4">04/03/2021</td><td ID="MedicationStopDate_4">05/03/2021</td><td ID="MedicationDosageFrequency_4">at bedtime</td><td ID="MedicationDuration_4">30</td><td ID="MedicationFormulaStrength_4">1 mg</td><td ID="MedicationDosageForm_4">tablet</td><td ID="MedicationDosageFormCode_4"></td><td ID="MedicationDosageDescription_4"></td><td ID="MedicationMedicationId_4">35668</td><td ID="MedicationAccount_4">[id number]</td><td ID="MedicationNpid_4">[id number]</td><td ID="MedicationAuthorFirstName_4">Anselmo</td><td ID="MedicationAuthorLastName_4">Amilcar</td><td ID="MedicationTaxonomyCode_4">[id number]</td><td ID="MedicationTaxonomyDesc_4">Nurse Practitioner</td><td ID="MedicationPhoneNumber_4">[phone]</td> [facility] ([facility]) olanzapine 5 MG Oral Tablet [Zyprexa] Zyprexa 04/03/2021 12:00:00 AM EDT 5 mg by mouth completed <td ID="Medica tionRxNorm_3">677638</td><td ID="MedicationMedication_3">Zyprexa</td><td ID="MedicationRoute_3">by mouth</td><td ID="MedicationRouteConcept_3">P72487</td><td ID="MedicationStartDate_3">04/03/2021</td><td ID="MedicationStopDate_3">05/03/2021</td><td ID="MedicationDosageFrequency_3">at bedtime</td><td ID="MedicationDuration_3">30</td><td ID="MedicationFormulaStrength_3">5 mg</td><td ID="MedicationDosageForm_3">tablet</td><td ID="MedicationDosageFormCode_3"></td><td ID="MedicationDosageDescription_3"></td><td ID="MedicationMedicationId_3">60451</td><td ID="MedicationAccount_3">[id number]</td><td ID="MedicationNpid_3">[id number]</td><td ID="MedicationAuthorFirstName_3">Anselmo</td><td ID="MedicationAuthorLastName_3">Amilcar</td><td ID="MedicationTaxonomyCode_3">[id number]</td><td ID="MedicationTaxonomyDesc_3">Nurse Practitioner</td><td ID="MedicationPhoneNumber_3">[phone]</td> [facility] 2.625 ML paliperidone palmitate 312 MG/ML Prefilled Sy ringe [Invega] Invega Trinza 04/03/2021 12:00:00 AM EDT 819 mg/2.625 compl eted <td ID="MedicationRxNorm_2">[id number]</td><td ID="MedicationMedication_2">Invega Trinza</td><td ID="MedicationRoute_2">intramuscularly</td><td ID="MedicationRouteConcept_2"></td><td ID="MedicationStartDate_2">04/03/2021</td><td ID="MedicationStopDate_2">07/02/2021</td><td ID="MedicationDosageFrequency_2">every three months</td><td ID="MedicationDuration_2">90</td><td ID="MedicationFormulaStrength_2">819 mg/2.625 mL</td><td ID="MedicationDosageForm_2">syringe</td><td ID="MedicationDosageFormCode_2"></td><td ID="MedicationDosageDescription_2"></td><td ID="MedicationMedicationId_2">[id number]</td><td ID="MedicationAccount_2">[id number]</td><td ID="MedicationNpid_2">[id number]</td><td ID="MedicationAuthorFirstName_2">Anselmo</td><td ID="MedicationAuthorLastName_2">Amilcar</td><td ID="MedicationTaxonomyCode_2">[id number]</td><td ID="MedicationTaxonomyDesc_2"> Nurse Practitioner</td><td ID="MedicationPhoneNumber_2">[phone]</td> [facility] haloperidol decanoate haloperidol decanoate 10/04/2020 12:00:00 AM EST 100 mg/mL completed <td ID="Me dicationRxNorm_1">[id number]</td><td ID="MedicationMedication_1">haloperidol decanoate</td><td ID="MedicationRoute_1">intramuscularly</td><td ID="MedicationRouteConcept_1"> </td><td ID="MedicationStartDate_1">10/04/2020</td><td ID="MedicationStopDate_1">04/03/2021</td><td ID="MedicationDosageFrequency_1">as directed</td><td ID="MedicationDuration_1">21</td><td ID="MedicationFormulaStrength_1">100 mg/mL</td><td ID="MedicationDosageForm_1">solution</td><td ID="MedicationDosageFormCode_1"></td><td ID="MedicationDosageDescription_1"></td><td ID="MedicationMedicationId_1">98708</td><td ID="MedicationAccount_1">[id number]</td><td ID="MedicationNpid_1">[id number]</td><td ID="MedicationAuthorFirstName_1">Victorino</td><td ID="MedicationAuthorLastName_1">Escobar</td><td ID="MedicationTaxonomyCode_1">[id number]</td><td ID="MedicationTaxonomyDesc_1"> Psychiatry</td><td ID="MedicationPhoneNumber_1">[phone]</td> [facility] ([facility]) 100 mg/mL 10/02/2020 12:00:00 AM EST solution 1 INJECT 1ML INTRAMUSCULARLY EVERY 3 WEEKS INJECT 1ML INTRAMUSCULARLY EVERY 3 WEEKS SOLD: 10/04/2020 [facility] 10 mg 09/28/2020 12:00:00 AM EST tablet 60 TAKE ONE TABLET BY MOUTH TWICE A DAY FOR 30 DAYS TAKE ONE TABLET BY MOUTH TWICE A DAY FOR 30 DAYS SOLD: 10/04/2020 [facility] 50 mg 09/28/2020 12:00:00 AM EST tablet 30 TAKE ONE TABLET BY MOUTH EVERY DAY NEEDED FOR ANXIETY FOR UP TO 30 DOSES TAKE ONE TABLET BY MOUTH EVERY DAY NEEDED FOR ANXIETY FOR UP TO 30 DOSES SOLD: 10/04/2020 [facility] Trazodone Hydrochloride 50 MG Oral Tablet trazodone 2019 12:00:00 AM EST 50 mg by mouth completed <td ID="Medic ationRxNorm_5">742749</td><td ID="MedicationMedication_5">trazodone</td><td ID="MedicationRoute_5">by mouth</td><td ID="MedicationRouteConcept_5">A84603</td><td ID="MedicationStartDate_5">09/12/2020</td><td ID="MedicationStopDate_5">10/12/2020</td><td ID="MedicationDosageFrequency_5">every night</td><td ID="MedicationDuration_5">30</td><td ID="MedicationFormulaStrength_5">50 mg</td><td ID="MedicationDosageForm_5">tablet</td><td ID="MedicationDosageFormCode_5"></td><td ID="MedicationDosageDescription_5"></td><td ID="MedicationMedicationId_5">[id number]</td><td ID="MedicationAccount_5">[id number]</td><td ID="MedicationNpid_5">[id number]</td><td ID="MedicationAuthorFirstName_5">Kalli</td><td ID="MedicationAuthorLastName_5">Egorho</td><td ID="MedicationTaxonomyCode_5">[id number]</td><td ID="MedicationTaxonomyDesc_5">Nurse Practitioner</td><td ID="MedicationPhoneNumber_5">[phone]</td> [facility] Trazodone Hydrochloride 50 MG Oral Tablet trazodone 2019 12:00:00 AM EST 50 mg by mouth completed <td ID="Medic ationRxNorm_1">516609</td><td ID="MedicationMedication_1">trazodone</td><td ID="MedicationRoute_1">by mouth</td><td ID="MedicationRouteConcept_1">O41664</td><td ID="MedicationStartDate_1">09/12/2020</td><td ID="MedicationStopDate_1">10/12/2020</td><td ID="MedicationDosageFrequency_1">every night</td><td ID="MedicationDuration_1">30</td><td ID="MedicationFormulaStrength_1">50 mg</td><td ID="MedicationDosageForm_1">tablet</td><td ID="MedicationDosageFormCode_1"></td><td ID="MedicationDosageDescription_1"></td><td ID="MedicationMedicationId_1">13528</td><td ID="MedicationAccount_1">[id number]</td><td ID="MedicationNpid_1">[id number]</td><td ID="MedicationAuthorFirstName_1">Kalli</td><td ID="MedicationAuthorLastName_1">Egorho</td><td ID="MedicationTaxonomyCode_1">[id number]</td><td ID="MedicationTaxonomyDesc_1">Nurse Practitioner</td><td ID="MedicationPhoneNumber_1">[phone]</td> [facility] ([facility]) Haldol Decanoate Haldol Decanoate 09/12/2020 12:00:00 AM EST 100 mg/mL completed <td ID="MedicationRx Norm_4">8076747</td><td ID="MedicationMedication_4">Haldol Decanoate</td><td ID="MedicationRoute_4">intramuscularly</td><td ID="MedicationRouteConcept_4"></td><td ID="MedicationStartDate_4">09/12/2020</td><td ID="MedicationStopDate_4">09/15/2020</td><td ID="MedicationDosageFrequency_4">as directed</td><td ID="MedicationDuration_4">1</td><td ID="MedicationFormulaStrength_4">100 mg/mL</td><td ID="MedicationDosageForm_4">solution</td><td ID="MedicationDosageFormCode_4"></td><td ID="MedicationDosageDescription_4"></td><td ID="MedicationMedicationId_4">82134</td><td ID="MedicationAccount_4">[id number]</td><td ID="MedicationNpid_4">[id number]</td><td ID="MedicationAuthorFirstName_4">Kalli</td><td ID="MedicationAuthorLastName_4">Egorho</td><td ID="MedicationTaxonomyCode_4">[id number]</td><td ID="MedicationTaxonomyDesc_4">Nurse Practitioner</td><td ID="MedicationPhoneNumber_4">[phone]</td> [facility] quetiapine 300 MG Oral Tablet quetiapine 01/06/2020 12:00:00 AM EST 300 mg completed <td ID="Medicat ionRxNorm_4">536867</td><td ID="MedicationMedication_4">quetiapine</td><td ID="MedicationRoute_4"></td><td ID="MedicationRouteConcept_4"></td><td ID="MedicationStartDate_4">01/06/2020</td><td ID="MedicationStopDate_4">01/05/2021</td><td ID="MedicationDosageFrequency_4">at bedtime</td><td ID="MedicationDuration_4">30</td><td ID="MedicationFormulaStrength_4">300 mg</td><td ID="MedicationDosageForm_4">tablet</td><td ID="MedicationDosageFormCode_4"></td><td ID="MedicationDosageDescription_4"></td><td ID="MedicationMedicationId_4">[id number]</td><td ID="MedicationAccount_4">[id number]</td><td ID="MedicationNpid_4">[id number]</td><td ID="MedicationAuthorFirstName_4">Dane</td><td ID="MedicationAuthorLastName_4">Crawford</td><td ID="MedicationTaxonomyCode_4">[id number]</td><td ID="MedicationTaxonomyDesc_4">Psychiatric/Mental Health</td><td ID="MedicationPhoneNumber_4">[phone]</td> [facility] ([facility]) quetiapine 300 MG Oral Tablet quetiapine 01/06/2020 12:00:00 AM EST 300 mg completed <td ID="Medicat ionRxNorm_1">557410</td><td ID="MedicationMedication_1">quetiapine</td><td ID="MedicationRoute_1"></td><td ID="MedicationRouteConcept_1"></td><td ID="MedicationStartDate_1">01/06/2020</td><td ID="MedicationStopDate_1">01/05/2021</td><td ID="MedicationDosageFrequency_1">at bedtime</td><td ID="MedicationDuration_1">30</td><td ID="MedicationFormulaStrength_1">300 mg</td><td ID="MedicationDosageForm_1">tablet</td><td ID="MedicationDosageFormCode_1"></td><td ID="MedicationDosageDescription_1"></td><td ID="MedicationMedicationId_1">06441</td><td ID="MedicationAccount_1">[id number]</td><td ID="MedicationNpid_1">[id number]</td><td ID="MedicationAuthorFirstName_1">Dane</td><td ID="MedicationAuthorLastName_1">Loida</td><td ID="MedicationTaxonomyCode_1">[id number]</td><td ID="MedicationTaxonomyDesc_1">Psychiatric/Mental Health</td><td ID="MedicationPhoneNumber_1">[phone]</td> [facility] ([facility]) quetiapine 300 MG Oral Tablet quetiapine 01/06/2020 12:00:00 AM EST 300 mg completed <td ID="Medicat ionRxNorm_5">886796</td><td ID="MedicationMedication_5">quetiapine</td><td ID="MedicationRoute_5"></td><td ID="MedicationRouteConcept_5"></td><td ID="MedicationStartDate_5">01/06/2020</td><td ID="MedicationStopDate_5">01/05/2021</td><td ID="MedicationDosageFrequency_5">at bedtime</td><td ID="MedicationDuration_5">30</td><td ID="MedicationFormulaStrength_5">300 mg</td><td ID="MedicationDosageForm_5">tablet</td><td ID="MedicationDosageFormCode_5"></td><td ID="MedicationDosageDescription_5"></td><td ID="MedicationMedicationId_5">39878</td><td ID="MedicationAccount_5">[id number]</td><td ID="MedicationNpid_5">[id number]</td><td ID="MedicationAuthorFirstName_5">Dane</td><td ID="MedicationAuthorLastName_5">Loida</td><td ID="MedicationTaxonomyCode_5">[id number]</td><td ID="MedicationTaxonomyDesc_5">Psychiatric/Mental Health</td><td ID="MedicationPhoneNumber_5">[phone]</td> [facility] ([facility]) [facility]12/20/2019 12:00:00 AM EST mg/3.9 completed <td ID="MedicationRxNorm_3">[id number]</td><td ID="MedicationMedication_3">Ari</td><td ID="MedicationRoute_3">intramuscularly</td><td ID="MedicationRouteConcept_3"></td><td ID="MedicationStartDate_3">12/20/2019</td><td ID="MedicationStopDate_3">09/12/2020</td><td ID="MedicationDosageFrequency_3"></td><td ID="MedicationDuration_3"></td><td ID="MedicationFormulaStrength_3">1,064 mg/3.9 mL</td><td ID="MedicationDosageForm_3">suspension,extended rel syring</td><td ID="MedicationDosageFormCode_3"></td><td ID="MedicationDosageDescription_3">as directed</td><td ID="MedicationMedicationId_3">30556</td><td ID="MedicationAccount_3">[id number]</td><td ID="MedicationNpid_3">[id number]</td><td ID="MedicationAuthorFirstName_3">Dane</td><td ID="MedicationAuthorLastName_3">Loida</td><td ID="MedicationTaxonomyCode_3">[id number]</td><td ID="MedicationTaxonomyDesc_3"> Psychiatric/Mental Health</td><td ID="MedicationPhoneNumber_3">[phone]</td> [facility] ([facility]) Trazodone Hydrochloride 50 MG Oral Tablet trazodone 2018 12:00:00 AM EDT 50 mg by mouth completed <td ID="Medic ationRxNorm_2">556716</td><td ID="MedicationMedication_2">trazodone</td><td ID="MedicationRoute_2">by mouth</td><td ID="MedicationRouteConcept_2">W74750</td><td ID="MedicationStartDate_2">06/10/2019</td><td ID="MedicationStopDate_2">09/12/2020</td><td ID="MedicationDosageFrequency_2">at bedtime</td><td ID="MedicationDuration_2"></td><td ID="MedicationFormulaStrength_2">50 mg</td><td ID="MedicationDosageForm_2">tablet</td><td ID="MedicationDosageFormCode_2"></td><td ID="MedicationDosageDescription_2"></td><td ID="MedicationMedicationId_2">22420</td><td ID="MedicationAccount_2">[id number]</td><td ID="MedicationNpid_2">[id number]</td><td ID="MedicationAuthorFirstName_2">Dane</td><td ID="MedicationAuthorLastName_2">Crawford</td><td ID="MedicationTaxonomyCode_2">[id number]</td><td ID="MedicationTaxonomyDesc_2">Psychiatric/Mental Health</td><td ID="MedicationPhoneNumber_2">[phone]</td> [facility] ([facility]) Amantadine Hydrochloride 100 MG Oral Capsule amantadine HCl 07/30/2017 12:00:00 AM EDT 100 mg by mouth completed <td ID="MedicationRxNorm_1">387355</td><td ID="MedicationMedication_1">amantadine HCl</td><td ID="MedicationRoute_1">by mouth</td><td ID="MedicationRouteConcept_1">V10216</td><td ID="MedicationStartDate_1">07/30/2017</td><td ID="MedicationStopDate_1">09/12/2020</td><td ID="MedicationDosageFrequency_1">every morning</td><td ID="MedicationDuration_1"></td><td ID="MedicationFormulaStrength_1">100 mg</td><td ID="MedicationDosageForm_1">capsule</td><td ID="MedicationDosageFormCode_1"></td><td ID="MedicationDosageDescription_1"></td><td ID="MedicationMedicationId_1">04961</td><td ID="MedicationAccount_1">[id number]</td><td ID="MedicationNpid_1">[id number]</td><td ID="MedicationAuthorFirstName_1">Dane</td><td ID="MedicationAuthorLastName_1">Loida</td><td ID="MedicationTaxonomyCode_1">[id number]</td><td ID="MedicationTaxonomyDesc_1">Psychiatric/Mental Health</td><td ID="MedicationPhoneNumber_1">[phone]</td> [facility] ([facility]) Insurance Providers Payer name Policy type / Coverage type Policy ID Covered green party ID Covered green party's relationship to shafer Policy Shafer Plan Information Medicaid S [id number] S [id number] Managed Care - Community Plan [facility] P [id number] S [id number] Medicaid S [id number] S [id number] [facility] I [id number] Self [id number] [facility] I [id number] Self [id number] [facility] I [id number] Self [id number] Managed Care - [facility] Community Plan P [id number] S [id number] Medicaid S [id number] S [id number] Managed Care - UHC Community Plan P [id number] S [id number] COMMUNITY PLAN MCDO [id number] SP [id number] [facility] MAN CRE [id number] SP [id number] [facility] [id number] SP [id number] SELF PAY [facility] OFFICE OF MENTAL HEALTH UNAVAILABLE S UNAVAILABLE MEDICAID [id number] S [id number] [facility] OFFICE OF MENTAL HEALTH [id number] S [id number] [facility] [id number] SP [id number] [facility] OFFICE OF MENTAL HEALTH [id number] S [id number] [facility] COMMUNITY PLAN MCDO [id number] SP [id number] SELF PAY ONLY [id number] SP [id number] [facility] [id number] SP [id number] SELF PAY SP [facility]) O [id number] S [id number] [facility] [id number] SP [id number] Self Pay P UNAVAILABLE S UNAVAILA BLE [facility]) O [id number] S [id number] 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, uncomplicated F16.10 - Hallucinogen abuse, uncomplicated Diagnosis 02/27/2021 08:12:00 PM EDT [facility] F25.9 Schizoaffective disorder, unspecified F2 5.9 - Schizoaffective disorder, unspecified Diagnosis 02/27/2021 08:12:00 PM EDT [facility] Z13.9 Encounter for screening, unspecified Z13 .9 - Encounter for screening, unspecified Diagnosis 02/27/2021 08:12:00 PM EDT [facility] schizophrenia, hallucinations, substance abuse schizophrenia, hallucinations, substance abuse Diagnosis 09/22/2020 02:27:00 PM [facility] F15.20 Other stimulant dependence, uncomplicate d Stimulant Use Disorder, Moderate: Amphetamine-type substance Condition 07/29/2021 12:00:00 AM EDT [facility] ([facility]) F10.20 Alcohol dependence, uncomplicated Alcohol Use Disorder , Severe Condition 07/29/2021 12:00:00 AM EDT [facility] ([facility]) F17.200 Nicotine dependence, unspecified, uncomp licated Tobacco Use Disorder, Moderate Condition 07/29/2021 12:00:00 AM EDT [facility] ([facility]) F12.20 Cannabis dependence, uncomplicated Cannabis Use Disorder, Moderate Condition 07/29/2021 12:00:00 AM EDT [facility] ([facility]) F20.9 Schizophrenia, unspecified Schizophrenia Condition 07/29/2021 12:00:00 AM EDT [facility] ([facility]) Surgeries/Procedures Procedure Description Date Indications Data Source(s) Comprehensive medication services, per 15 minutes 07/29/2021 12:00:00 AM EDT - 07/29/2021 12:00:00 AM EDT [facility] ([facility]) Comprehensive medication services, per 15 minutes 07/29/2021 12:00:00 AM EDT [facility] ([facility]) Comprehensive medication services, per 15 minutes 06/24/2021 12:00:00 AM EDT - 06/24/2021 12:00:00 AM EDT [facility] ([facility]) Comprehensive medication services, per 15 minutes 06/24/2021 12:00:00 AM EDT [facility] ([facility]) THERAPEUTIC PROPHYLACTIC/DX INJECTION SUBQ/IM 05/27/2021 12:00:00 AM EDT - 05/27/2021 12:00:00 AM EDT [facility] ([facility]) THERAPEUTIC PROPHYLACTIC/DX INJECTION SUBQ/IM 05/27/20 12:00:00 AM EDT [facility] ([facility]) Brief Individual Psychotherapy - 30 min 05/13/2021 12:00:00 AM EDT - 05/13/2021 12:00:00 AM EDT [facility] ([facility]) Brief Individual Psychotherapy - 30 min 05/13/2021 12: 00:00 AM EDT [facility] ([facility]) Comprehensive medication services, per 15 minutes 04/04/2021 12:00:00 AM EDT - 04/04/2021 12:00:00 AM EDT [facility] ([facility]) Comprehensive medication services, per 15 minutes 04/03/2021 12:00:00 AM EDT [facility] ([facility]) OFFICE OUTPATIENT VISIT 15 MINUTES 04/03 12:00:00 AM EDT - 04/03/2021 12:00:00 AM EDT [facility] ([facility]) Psychotherapy ADD ON - 30 Minutes 04/03/2021 12:00:00 AM EDT [facility] ([facility]) OFFICE OUTPATIENT VISIT 15 MINUTES 04/03/2021 12:00:00 AM EDT [facility] ([facility]) OFFICE OUTPATIENT VISIT 15 MINUTES 03/27 12:00:00 AM EDT - 03/27/2021 12:00:00 AM EDT [facility] ([facility]) OFFICE OUTPATIENT VISIT 15 MINUTES 03/27/2021 12:00:00 AM EDT [facility] ([facility]) OFFICE OUTPATIENT VISIT 15 MINUTES 03/19 12:00:00 AM EDT - 03/19/2021 12:00:00 AM EDT [facility] ([facility]) OFFICE OUTPATIENT VISIT 15 MINUTES 03/19/2021 12:00:00 AM EDT [facility] ([facility]) OFFICE OUTPATIENT VISIT 15 MINUTES 02/12 12:00:00 AM EDT - 02/12/2021 12:00:00 AM EDT [facility] ([facility]) OFFICE OUTPATIENT VISIT 15 MINUTES 02/12/2021 12:00:00 AM EDT [facility] ([facility]) OFFICE OUTPATIENT VISIT 15 MINUTES 02/07 12:00:00 AM EDT - 02/07/2021 12:00:00 AM EDT [facility] ([facility]) OFFICE OUTPATIENT VISIT 15 MINUTES 02/07/2021 12:00:00 AM EDT [facility] ([facility]) Brief Individual Psychotherapy - 30 min 02/01/2021 12:00:00 AM EDT - 02/01/2021 12:00:00 AM EDT [facility] ([facility]) Brief Individual Psychotherapy - 30 min 02/01/2021 12: 00:00 AM EDT [facility] ([facility]) OFFICE OUTPATIENT VISIT 15 MINUTES 01/23 12:00:00 AM EDT - 01/23/2021 12:00:00 AM EDT [facility] ([facility]) OFFICE OUTPATIENT VISIT 15 MINUTES 01/23/2021 12:00:00 AM EDT [facility] ([facility]) THERAPEUTIC PROPHYLACTIC/DX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
--- OUTSIDE RECORDS SUMMARY | 2021-08-14 19:00 | CCD ---
Author Author [facility] Organization [facility] Address Unknown Phone Unavailable Support Name Relationship Address Phone Hudson GUTIERREZ, Pasha Next Of Kin [address] [place] [address] Diamante Costa Next Of Kin [address] [place] [address] Dwain Joseph DO Next Of Kin [address] [place] [address] Cameron Bingham MD Next Of Kin [address] [place] [address] SELFGARY Next Of Kin [address] [place] [address] YONI JACK Next Of Kin [address] [place] [address] CORRECTIONAL, NOOKSACK Next Of Kin [address] [place] [address] Monique Conklin MD Next Of Kin [address] [place] [phone] YONI CALHOUN Next Of Kin [address] [place] [address] Isabelle Manning Next Of Kin [address] [place] [address] Pat Gallo DO Next Of Kin [address] [place] [address] DISABLED Next Of Kin Unknown Unavailable [place] Self Next Of Kin [address] [place] [phone] SELF, JUNIOR Next Of Kin [address] [place] [address] UE Next Of Kin Unknown Unavailable SIMON WALL Next Of Kin [address] [place] [address] SELF, JUNIOR [address] [place] [address] Unavailable Care Team Providers Care Chef Concierge Name Role Phone Farden, M Rambo Unavailable [...] Unavailable Gina Nash Unavailable AMILCAR, H ANSELMO FOOD ANALYST Unavailable Unavailable AMILCAR, H ANSELMO FOOD ANALYST Unavailable Unavailable AMILCAR, H ANSELMO FOOD ANALYST Unavailable Unavailable AMILCAR, H ANSELMO FOOD ANALYST Unavailable Unavailable AMILCAR, H ANSELMO FOOD ANALYST Unavailable Unavailable AMILCAR, H ANSELMO FOOD ANALYST Unavailable Unavailable AMILCAR, H ANSELMO FOOD ANALYST Unavailable Unavailable AMILCAR, H ANSELMO FOOD ANALYST Unavailable Unavailable AMILCAR, H ANSELMO FOOD ANALYST Unavailable Unavailable Jossie Marcelino Unavailable Rotella, Jossy [...] Castro Unavailable Unavailable Colon, Castro Unavailable Unavailable Re-disclosure [...] is protected by Article 27-F of the [facility] [place] Public Health law. If you continue you may have access to information: Regarding HIV / AIDS; Provided by facilities licensed or operated by the [facility] [place] Office of Mental Health; or Provided by the [facility] [place] Office for People With Developmental Disabilities. If such information is present, then the following [facility] [place] mandated warning applies: This information has been [...] law may result in a fine or assisted sentence or both. A general authorization for the release of medical or other information is NOT sufficient authorization for further disc losure. Allergies and Adverse Reactions Type Description Substance Reaction Status Data Source(s ) Drug allergy No Known Allergies No Known Allergies [facility] Propensity to adverse reactions NO KNOWN ALLERGIES NO KNOWN ALLERGIES [facility] Encounters Encounter Providers Location Date Indications Data Source(s ) Injectable Medication Administration w/ Monitoring & E ducation Attender: Pammurphy Isbellpo [facility] 07/29/2021 02:30:00 AM EDT - 07/29/2021 02:30:00 AM EDT [facility] ([facility]) Attender: Pam Juarez 07/29/2021 12:00:00 AM EDT [facility] ([facility]) Injectable Medication Administration w/ Monitoring & E ducation Attender: Thalia Carreno [facility] 06/24/2021 10:45:00 AM EDT - 06/24/2021 10:45:00 AM EDT [facility] ([facility]) Attender: Thalia Carreno 06/24/2021 12:00:00 AM EDT [facility] ([facility]) Injectable Psychotropic Medication Administration (Inj ection Only) Attender: Thalia Carreno [facility] 05/27/2021 08:15:00 AM EDT - 05/27/2021 08:15:00 AM EDT [facility] ([facility]) Attender: Thalia Carreno 05/27/2021 12:00:00 AM EDT [facility] ([facility]) Brief Individual Psychotherapy - 30 min Attender: Gina yun [facility] 05/13/2021 08:30:00 AM EDT - 05/13/2021 08:30:00 AM EDT [facility] ([facility]) Attender: Gina Nash 05/13/2021 12:00:00 AM EDT [facility] ([facility]) Attender: Pam Juarez 04/04/2021 12:00:00 AM EDT [facility] ([facility]) Injectable Medication Administration w/ Monitoring & E ducation Attender: Pam Borjapo [facility] Maria Alejandra 04/03/2021 09:00:00 AM EDT - 04/03/2021 09:00:00 AM EDT [facility] ([facility]) Outpatient Attender: ANSELMO APONTE NP [facility] Mike garcía 04/03/2021 08:30:00 AM EDT - 04/03/2021 08:30:00 AM EDT [facility] ([facility]) Attender: ANSELMO APONTE NP 04/03/2021 12:00:00 AM EDT [facility] ([facility]) Outpatient Attender: ANSELMO APONTE NP [facility] Mike garcía 03/27/2021 11:00:00 AM EDT - 03/27/2021 11:00:00 AM EDT [facility] ([facility]) Attender: ANSELMO APONTE NP 03/27/2021 12:00:00 AM EDT [facility] ([facility]) Outpatient Attender: ANSELMO APONTE NP [facility] Mike garcía 03/19/2021 03:00:00 AM EDT - 03/19/2021 03:00:00 AM EDT [facility] ([facility]) Attender: ANSELMO APONTE NP 03/19/2021 12:00:00 AM EDT [facility] ([facility]) Inpatient Attender: JONNATHAN Marieeitter: JONNATHAN TRACY MD 02/27/2021 08:12:00 PM EDT - 03/08/2021 03:27:00 PM EDT Suicidal Ideation / Homicidal Ideation [facility] Suicidal Ideation / Homicidal Ideation Patient discharged. Outpatient Attender: JONNATHAN Bonilla tter: JONNATHAN TRACY MDConsultant: JONNATHAN TRACY MD 02/27/2021 08:12:00 PM EDT Suicidal Ideation / H omicidal Ideation [place] [facility] Suicidal Ideation / Homicidal Ideation Outpatient Attender: JONNATHAN TRACY MDAdmi tter: JONNATHAN MAIAL MDConsultant: JONNATHAN TRACY MD 02/27/2021 08:12:00 PM EDT Suicidal Ideation / [facility] / Homicidal Ideation Outpatient Attender: Castro ColonAdmitter : JONNATHAN MAIAL MDConsultant: JONNATHAN TRACY MD 02/27/2021 08:12:00 PM EDT Suicidal Ideation / [facility]micidal Ideation [facility] Su[facility] Ide[facility] / Homicidal Ideation Outpatient Attender: JONNATHAN TRACY MDAdmi tter: JONNATHAN TRACY MDConsultant: JONNATHAN TRACY MD 02/27/2021 08:12:00 PM EDT Suicidal Ideation / [facility]micidal Ideation [facility] Su[facility] Ide[facility] / Homicidal Ideation Outpatient Attender: JONNATHAN TRACY MDAdmi tter: JONNATHAN TRACY MDConsultant: JONNATHAN TRACY MD 02/27/2021 08:12:00 PM EDT Suicidal Ideation / [facility] omicidal Ideation [facility] Suicidal Ide[facility] / Homicidal Ideation Outpatient Attender: JONNATHAN TRACY MDAdmi tter: JONNATHAN TRACY MDConsultant: JONNATHAN TRACY MD 02/27/2021 08:12:00 PM EDT Suicidal Ideation / H omicidal Ideation [facility] Suicidal [facility] / Homicidal Ideation Outpatient Attender: Castro ColonAdmitter : JONNATHAN TRACY MDConsultant: JONNATHAN TRACY MD 02/27/2021 08:12:00 PM EDT Suicidal Ideation / H omicidal Ideation [facility] Suicidal Ide[facility] / Homicidal Ideation Outpatient Attender: Catsro ColonAdmitter : JONNATHAN TRACY MDConsultant: JONNATHAN TRACY MD 02/27/2021 08:12:00 PM EDT Suicidal Ideation / H omicidal Ideation [facility] Suicidal Ideation / Homicidal Ideation Outpatient Attender: JONNATHAN TRACY MDAdmi tter: JONNATHAN TRACY MDConsultant: JONNATHAN TRACY MD 02/27/2021 08:12:00 PM EDT Suicidal Ideation / H omicidal Ideation [facility] Suicidal Ideation / Homicidal Ideation Outpatient Attender: Rambo Pedroza mitter: JONNATHAN TRACY MDConsultant: JONNATHAN TRACY MD 02/27/2021 08:12:00 PM EDT Suicidal Ideation / H omicidal Ideation [facility] Suicidal Ideation / Homicidal Ideation Outpatient Attender: ANSELMO APONTE NP [facility] 02/12/2021 10:30:00 AM EDT - 02/12/2021 10:30:00 AM EDT [facility] ([facility]) Attender: ANSELMO APONTE NP 02/12/2021 12:00:00 AM EDT [facility] ([facility]) Outpatient Attender: ANSELMO APONTE NP [facility] 02/07/2021 11:30:00 AM EDT - 02/07/2021 11:30:00 AM EDT [facility] ([facility]) Attender: ANSELMO APONTE NP 02/07/2021 12:00:00 AM EDT [facility] ([facility]) Brief Individual Psychotherapy - 30 min Attender: Gina yun [facility] 02/01/2021 02:00:00 AM EDT - 02/01/2021 02:00:00 AM EDT [facility] ([facility]) Attender: Gina Nash 02/01/2021 12:00:00 AM EDT [facility] ([facility]) Injectable Psychotropic Medication Administration (Inj ection Only) Attender: Thalia Carreno [facility] 01/23/2021 10:00:00 AM EDT - 01/23/2021 10:00:00 AM EDT [facility] ([facility]) Outpatient Attender: ANSELMO APONTE NP [facility] 01/23/2021 09:15:00 AM EDT - 01/23/2021 09:15:00 AM EDT [facility] ([facility]) Attender: ANSELMO APONTE NP 01/23/2021 12:00:00 AM EDT [facility] ([facility]) Attender: Thalia Carreno 01/23/2021 12:00:00 AM EDT [facility] ([facility]) Injectable Medication Administration w/ Monitoring & E ducation Attender: Pam Juarez [facility] 01/18/2021 11:00:00 AM EDT - 01/18/2021 11:00:00 AM EDT [facility] ([facility]) Attender: Pam Juarez 01/18/2021 12:00:00 AM EDT [facility] ([facility]) Outpatient Attender: ANSELMO APONTE NP [facility] raquel 01/17/2021 09:00:00 AM EDT - 01/17/2021 09:00:00 AM EDT [facility] ([facility]) Attender: ANSELMO APONTE NP 01/17/2021 12:00:00 AM EDT [facility] ([facility]) Outpatient Attender: ANSELMO APONTE NP [facility] raquel 01/01/2021 02:30:00 AM EST - 01/01/2021 02:30:00 AM EST [facility] ([facility]) Attender: ANSELMO APONTE NP 01/01/2021 12:00:00 AM EST [facility] ([facility]) Injectable Psychotropic Medication Administration (Inj ection Only) Attender: Jossie Marcelino [facility] 12/28/2020 10:30:00 AM EST - 12/28/2020 10:30:00 AM EST [facility] ([facility]) Attender: Jossie Marcelino 12/28/2020 12:00:00 AM EST [facility] ([facility]) Outpatient Attender: Victorino Escobar MD [facility] Mike raquel 12/20/2020 09:30:00 AM EST - 12/20/2020 09:30:00 AM EST [facility] ([facility]) Attender: Victorino Escobar MD 12/20/2020 12:00:00 AM EST [facility] ([facility]) Outpatient Attender: Victorino Esocbar MD [facility] Mike garcía 12/06/2020 12:30:00 PM EST - 12/06/2020 12:30:00 PM EST [facility] ([facility]) Attender: Victorino Escobar MD 12/06/2020 12:00:00 AM EST [facility] ([facility]) Injectable Medication Administration w/ Monitoring & E ducation Attender: ORGANIZATION NPI ALIASES [facility] 11/15/2020 11:15: 00 AM EST - 11/15/2020 11:15:00 AM EST [facility] ([facility]) Outpatient Attender: Victorino Escobar MD [facility] Mike garcía 11/15/2020 11:00:00 AM EST - 11/15/2020 11:00:00 AM EST [facility] ([facility]) Attender: ORGANIZATION NPI ALIASES * 11/15/2020 12:00:00 AM EST [facility] ([facility]) Attender: Victorino Escobar MD 11/15/2020 12:00:00 AM EST [facility] ([facility]) Injectable Psychotropic Medication Administration (Inj ection Only) Attender: Jossy Mejia [facility] 10/18/2020 10:30:00 AM EST - 10/18/2020 10:30:00 AM EST [facility] ([facility]) Attender: Jossy Mejia 10/18/2020 12:00:00 AM EST [facility] ([facility]) Injectable Psychotropic Medication Administration (Inj ection Only) Attender: Jossy Mejia [facility] 10/15/2020 11:00:00 AM EST - 10/15/2020 11:00:00 AM EST [facility] ([facility]) Attender: Jossy Mejia 10/15/2020 12:00:00 AM EST [facility] ([facility]) Injectable Psychotropic Medication Administration (Inj ection Only) Attender: Jossy Mejia [facility] 10/04/2020 10:30:00 AM EST - 10/04/2020 10:30:00 AM EST [facility] ([facility]) Outpatient Attender: KALLI MOLINAURSZULA [facility] 10/04/2020 10:00:00 AM EST - 10/04/2020 10:00:00 AM EST [facility] ([facility]) Attender: Jossy Mejia 10/04/2020 12:00:00 AM EST [facility] ([facility]) Attender: KALLI MOLINAURSZULA 10/04/2020 12:00: 00 AM EST [facility] ([facility]) Outpatient Referrer: [facility] 09/22/2020 0 2:27:00 PM EST schizophrenia, hallucinations, substance abuse [facility] schizophrenia, hallucinations, substance abuse Injectable Psychotropic Medication Administration (Inj ection Only) Attender: Jossy Mejia [facility] 09/12/2020 09:30:00 AM EST - 09/12/2020 09:30:00 AM EST [facility] ([facility]) Outpatient Attender: KALLI MOLINAURSZULA [facility] 09/12/2020 09:00:00 AM EST - 09/12/2020 09:00:00 AM EST [facility] ([facility]) Attender: KALLI VALLEJO 09/12/2020 12:00: 00 AM EST [facility] ([facility]) Attender: Jossy Mejia 09/12/2020 12:00:00 AM EST [facility] ([facility]) Outpatient Attender: KALLI MOLINAURSZULA [facility] ail 08/10/2020 02:00:00 AM EDT - 08/10/2020 02:00:00 AM EDT [facility] ([facility]) Attender: KALLI MOLINAURSZULA 08/10/2020 12:00: 00 AM EDT [facility] ([facility]) Injectable Psychotropic Medication Administration (Inj ection Only) Attender: Jossy Mejia [facility] 07/13/2020 02:00:00 AM EDT - 07/13/2020 02:00:00 AM EDT [facility] ([facility]) Attender: Jossy Mejia 07/13/2020 12:00:00 AM EDT [facility] ([facility]) Outpatient Attender: Pasha Treviño MD 07/12/2020 [...] 1 mg by mouth completed <td ID="Medicat ionRxNorm_4">378916</td><td ID="MedicationMedication_4">prazosin</td><td ID="MedicationRoute_4">by mouth</td><td ID="MedicationRouteConcept_4">F55742</td><td ID="MedicationStartDate_4">07/10/2021</td><td ID="MedicationStopDate_4">08/09/2021</td><td ID="MedicationDosageFrequency_4">at bedtime</td><td ID="MedicationDuration_4">30</td><td ID="MedicationFormulaStrength_4">1 mg</td><td ID="MedicationDosageForm_4">capsule</td><td ID="MedicationDosageFormCode_4"></td><td ID="MedicationDosageDescription_4"></td><td ID="MedicationMedicationId_4">[id number]</td><td ID="MedicationAccount_4">[id number]</td><td ID="MedicationNpid_4">[id number]</td><td ID="MedicationAuthorFirstName_4">Anselmo</td><td ID="MedicationAuthorLastName_4">Amilcar</td><td ID="MedicationTaxonomyCode_4">[id number]</td><td ID="MedicationTaxonomyDesc_4">Nurse Practitioner</td><td ID="MedicationPhoneNumber_4">[phone]</td> [facility] olanzapine 5 MG Oral Tablet [Zyprexa] Zyprexa 05/23/2021 12:00:00 AM EDT 5 mg by mouth completed <td ID="Medica tionRxNorm_2">397751</td><td ID="MedicationMedication_2">Zyprexa</td><td ID="MedicationRoute_2">by mouth</td><td ID="MedicationRouteConcept_2">R58802</td><td ID="MedicationStartDate_2">05/23/2021</td><td ID="MedicationStopDate_2">08/09/2021</td><td ID="MedicationDosageFrequency_2">at bedtime</td><td ID="MedicationDuration_2">30</td><td ID="MedicationFormulaStrength_2">5 mg</td><td ID="MedicationDosageForm_2">tablet</td><td ID="MedicationDosageFormCode_2"></td><td ID="MedicationDosageDescription_2"></td><td ID="MedicationMedicationId_2">[id number]</td><td ID="MedicationAccount_2">[id number]</td><td ID="MedicationNpid_2">[id number]</td><td ID="MedicationAuthorFirstName_2">Anselmo</td><td ID="MedicationAuthorLastName_2">Amilcar</td><td ID="MedicationTaxonomyCode_2">[id number]</td><td ID="MedicationTaxonomyDesc_2">Nurse Practitioner</td><td ID="MedicationPhoneNumber_2">[phone]</td> [facility] ([facility]) benztropine mesylate 1 MG Oral Tablet benztropine 05/23/2021 12:00 :00 AM EDT 1 mg by mouth completed <td ID="Me dicationRxNorm_3">876133</td><td ID="MedicationMedication_3">benztropine</td><td ID="MedicationRoute_3">by mouth</td><td ID="MedicationRouteConcept_3">N84249</td><td ID="MedicationStartDate_3">05/23/2021</td><td ID="MedicationStopDate_3">08/09/2021</td><td ID="MedicationDosageFrequency_3">at bedtime</td><td ID="MedicationDuration_3">30</td><td ID="MedicationFormulaStrength_3">1 mg</td><td ID="MedicationDosageForm_3">tablet</td><td ID="MedicationDosageFormCode_3"></td><td ID="MedicationDosageDescription_3"></td><td ID="MedicationMedicationId_3">[id number]</td><td ID="MedicationAccount_3">[id number]</td><td ID="MedicationNpid_3">[id number]</td><td ID="MedicationAuthorFirstName_3">Anselmo</td><td ID="MedicationAuthorLastName_3">Amilcar</td><td ID="MedicationTaxonomyCode_3">[id number]</td><td ID="MedicationTaxonomyDesc_3">Nurse Practitioner</td><td ID="MedicationPhoneNumber_3">[phone]</td> [facility] ([facility]) 1.5 ML paliperidone palmitate 156 MG/ML Prefilled Syri nge [Invega] Invega Sustenna 04/16/2021 12:00:00 AM EDT 234 mg/1.5 compl eted <td ID="MedicationRxNorm_1">972027</td><td ID="MedicationMedication_1">Invega Sustenna</td><td ID="MedicationRoute_1"></td><td ID="MedicationRouteConcept_1"></td><td ID="MedicationStartDate_1">04/16/2021</td><td ID="MedicationStopDate_1"></td><td ID="MedicationDosageFrequency_1"></td><td ID="MedicationDuration_1"></td><td ID="MedicationFormulaStrength_1">234 mg/1.5 mL</td><td ID="MedicationDosageForm_1">syringe</td><td ID="MedicationDosageFormCode_1"></td><td ID="MedicationDosageDescription_1"> </td><td ID="MedicationMedicationId_1">[id number]</td><td ID="MedicationAccount_1">[id number]</td><td ID="MedicationNpid_1">[id number]</td><td ID="MedicationAuthorFirstName_1">Anselmo</td><td ID="MedicationAuthorLastName_1">Amilcar</td><td ID="MedicationTaxonomyCode_1">[id number]</td><td ID="MedicationTaxonomyDesc_1">Nurse Practitioner</td><td ID="MedicationPhoneNumber_1">[phone]</td> [facility] ([facility]) 2.625 ML paliperidone palmitate 312 MG/ML Prefilled Sy ringe [Invega] Invega Trinza 04/03/2021 12:00:00 AM EDT 819 mg/2.625 compl eted <td ID="MedicationRxNorm_3">[id number]</td><td ID="MedicationMedication_3">Invega Trinza</td><td ID="MedicationRoute_3">intramuscularly</td><td ID="MedicationRouteConcept_3"></td><td ID="MedicationStartDate_3">04/03/2021</td><td ID="MedicationStopDate_3">07/02/2021</td><td ID="MedicationDosageFrequency_3">every three months</td><td ID="MedicationDuration_3">90</td><td ID="MedicationFormulaStrength_3">819 mg/2.625 mL</td><td ID="MedicationDosageForm_3">syringe</td><td ID="MedicationDosageFormCode_3"></td><td ID="MedicationDosageDescription_3"></td><td ID="MedicationMedicationId_3">[id number]</td><td ID="MedicationAccount_3">[id number]</td><td ID="MedicationNpid_3">[id number]</td><td ID="MedicationAuthorFirstName_3">Anselmo</td><td ID="MedicationAuthorLastName_3">Amilcar</td><td ID="MedicationTaxonomyCode_3">[id number]</td><td ID="MedicationTaxonomyDesc_3"> Nurse Practitioner</td><td ID="MedicationPhoneNumber_3">[phone]</td> [facility] ([facility]) 2.625 ML paliperidone palmitate 312 MG/ML Prefilled Sy ringe [Invega] Ml Roth 04/03/2021 12:00:00 AM EDT 819 mg/2.625 compl eted <td ID="MedicationRxNorm_4">[id number]</td><td ID="MedicationMedication_4">Invega Trinza</td><td ID="MedicationRoute_4">intramuscularly</td><td ID="MedicationRouteConcept_4"></td><td ID="MedicationStartDate_4">04/03/2021</td><td ID="MedicationStopDate_4">07/02/2021</td><td ID="MedicationDosageFrequency_4">every three months</td><td ID="MedicationDuration_4">90</td><td ID="MedicationFormulaStrength_4">819 mg/2.625 mL</td><td ID="MedicationDosageForm_4">syringe</td><td ID="MedicationDosageFormCode_4"></td><td ID="MedicationDosageDescription_4"></td><td ID="MedicationMedicationId_4">[id number]</td><td ID="MedicationAccount_4">[id number]</td><td ID="MedicationNpid_4">[id number]</td><td ID="MedicationAuthorFirstName_4">Anselmo</td><td ID="MedicationAuthorLastName_4">Amilcar</td><td ID="MedicationTaxonomyCode_4">[id number]</td><td ID="MedicationTaxonomyDesc_4"> Nurse Practitioner</td><td ID="MedicationPhoneNumber_4">[phone]</td> [facility] ([facility]) haloperidol decanoate haloperidol decanoate 04/03/2021 12:00:00 AM EDT 100 mg/mL completed <td ID="Me dicationRxNorm_2">[id number]</td><td ID="MedicationMedication_2">haloperidol decanoate</td><td ID="MedicationRoute_2">intramuscularly</td><td ID="MedicationRouteConcept_2"> </td><td ID="MedicationStartDate_2">04/03/2021</td><td ID="MedicationStopDate_2">04/03/2021</td><td ID="MedicationDosageFrequency_2">every four weeks</td><td ID="MedicationDuration_2">28</td><td ID="MedicationFormulaStrength_2">100 mg/mL</td><td ID="MedicationDosageForm_2">solution</td><td ID="MedicationDosageFormCode_2"></td><td ID="MedicationDosageDescription_2"></td><td ID="MedicationMedicationId_2">[id number]</td><td ID="MedicationAccount_2">[id number]</td><td ID="MedicationNpid_2">[id number]</td><td ID="MedicationAuthorFirstName_2">Anselmo</td><td ID="MedicationAuthorLastName_2">Amilcar</td><td ID="MedicationTaxonomyCode_2">[id number]</td><td ID="MedicationTaxonomyDesc_2"> Nurse Practitioner</td><td ID="MedicationPhoneNumber_2">[phone]</td> [facility] ([facility]) benztropine mesylate 1 MG Oral Tablet benztropine 04/03/2021 12:00 :00 AM EDT 1 mg by mouth completed <td ID="Me dicationRxNorm_2">864763</td><td ID="MedicationMedication_2">benztropine</td><td ID="MedicationRoute_2">by mouth</td><td ID="MedicationRouteConcept_2">X93774</td><td ID="MedicationStartDate_2">04/03/2021</td><td ID="MedicationStopDate_2">05/03/2021</td><td ID="MedicationDosageFrequency_2">at bedtime</td><td ID="MedicationDuration_2">30</td><td ID="MedicationFormulaStrength_2">1 mg</td><td ID="MedicationDosageForm_2">tablet</td><td ID="MedicationDosageFormCode_2"></td><td ID="MedicationDosageDescription_2"></td><td ID="MedicationMedicationId_2">[id number]</td><td ID="MedicationAccount_2">[id number]</td><td ID="MedicationNpid_2">[id number]</td><td ID="MedicationAuthorFirstName_2">Anselmo</td><td ID="MedicationAuthorLastName_2">Amilcar</td><td ID="MedicationTaxonomyCode_2">[id number]</td><td ID="MedicationTaxonomyDesc_2">Nurse Practitioner</td><td ID="MedicationPhoneNumber_2">[phone]</td> [facility] ([facility]) olanzapine 5 MG Oral Tablet [Zyprexa] Zyprexa 04/03/2021 12:00:00 AM EDT 5 mg by mouth completed <td ID="Medica tionRxNorm_1">630593</td><td ID="MedicationMedication_1">Zyprexa</td><td ID="MedicationRoute_1">by mouth</td><td ID="MedicationRouteConcept_1">N55928</td><td ID="MedicationStartDate_1">04/03/2021</td><td ID="MedicationStopDate_1">05/03/2021</td><td ID="MedicationDosageFrequency_1">at bedtime</td><td ID="MedicationDuration_1">30</td><td ID="MedicationFormulaStrength_1">5 mg</td><td ID="MedicationDosageForm_1">tablet</td><td ID="MedicationDosageFormCode_1"></td><td ID="MedicationDosageDescription_1"></td><td ID="MedicationMedicationId_1">[id number]</td><td ID="MedicationAccount_1">[id number]</td><td ID="MedicationNpid_1">[id number]</td><td ID="MedicationAuthorFirstName_1">Anselmo</td><td ID="MedicationAuthorLastName_1">Amilcar</td><td ID="MedicationTaxonomyCode_1">[id number]</td><td ID="MedicationTaxonomyDesc_1">Nurse Practitioner</td><td ID="MedicationPhoneNumber_1">[phone]</td> [facility] ([facility]) 2.625 ML paliperidone palmitate 312 MG/ML Prefilled Sy ringe [Invega] Invega Trinza 04/03/2021 12:00:00 AM EDT 819 mg/2.625 compl eted <td ID="MedicationRxNorm_5">[id number]</td><td ID="MedicationMedication_5">Invega Trinza</td><td ID="MedicationRoute_5">intramuscularly</td><td ID="MedicationRouteConcept_5"></td><td ID="MedicationStartDate_5">04/03/2021</td><td ID="MedicationStopDate_5">07/02/2021</td><td ID="MedicationDosageFrequency_5">every three months</td><td ID="MedicationDuration_5">90</td><td ID="MedicationFormulaStrength_5">819 mg/2.625 mL</td><td ID="MedicationDosageForm_5">syringe</td><td ID="MedicationDosageFormCode_5"></td><td ID="MedicationDosageDescription_5"></td><td ID="MedicationMedicationId_5">[id number]</td><td ID="MedicationAccount_5">[id number]</td><td ID="MedicationNpid_5">[id number]</td><td ID="MedicationAuthorFirstName_5">Anselmo</td><td ID="MedicationAuthorLastName_5">Amilcar</td><td ID="MedicationTaxonomyCode_5">[id number]</td><td ID="MedicationTaxonomyDesc_5"> Nurse Practitioner</td><td ID="MedicationPhoneNumber_5">[phone]</td> [facility] ([facility]) benztropine mesylate 1 MG Oral Tablet benztropine 04/03/2021 12:00 :00 AM EDT 1 mg by mouth completed <td ID="Me dicationRxNorm_4">090905</td><td ID="MedicationMedication_4">benztropine</td><td ID="MedicationRoute_4">by mouth</td><td ID="MedicationRouteConcept_4">P39310</td><td ID="MedicationStartDate_4">04/03/2021</td><td ID="MedicationStopDate_4">05/03/2021</td><td ID="MedicationDosageFrequency_4">at bedtime</td><td ID="MedicationDuration_4">30</td><td ID="MedicationFormulaStrength_4">1 mg</td><td ID="MedicationDosageForm_4">tablet</td><td ID="MedicationDosageFormCode_4"></td><td ID="MedicationDosageDescription_4"></td><td ID="MedicationMedicationId_4">[id number]</td><td ID="MedicationAccount_4">[id number]</td><td ID="MedicationNpid_4">[id number]</td><td ID="MedicationAuthorFirstName_4">Anselmo</td><td ID="MedicationAuthorLastName_4">Amilcar</td><td ID="MedicationTaxonomyCode_4">[id number]</td><td ID="MedicationTaxonomyDesc_4">Nurse Practitioner</td><td ID="MedicationPhoneNumber_4">[phone]</td> [facility] ([facility]) olanzapine 5 MG Oral Tablet [Zyprexa] Zyprexa 04/03/2021 12:00:00 AM EDT 5 mg by mouth completed <td ID="Medica tionRxNorm_3">194023</td><td ID="MedicationMedication_3">Zyprexa</td><td ID="MedicationRoute_3">by mouth</td><td ID="MedicationRouteConcept_3">Y71096</td><td ID="MedicationStartDate_3">04/03/2021</td><td ID="MedicationStopDate_3">05/03/2021</td><td ID="MedicationDosageFrequency_3">at bedtime</td><td ID="MedicationDuration_3">30</td><td ID="MedicationFormulaStrength_3">5 mg</td><td ID="MedicationDosageForm_3">tablet</td><td ID="MedicationDosageFormCode_3"></td><td ID="MedicationDosageDescription_3"></td><td ID="MedicationMedicationId_3">[id number]</td><td ID="MedicationAccount_3">[id number]</td><td ID="MedicationNpid_3">[id number]</td><td ID="MedicationAuthorFirstName_3">Anselmo</td><td ID="MedicationAuthorLastName_3">Amilcar</td><td ID="MedicationTaxonomyCode_3">[id number]</td><td ID="MedicationTaxonomyDesc_3">Nurse Practitioner</td><td ID="MedicationPhoneNumber_3">[phone]</td> [facility] ([facility]) 2.625 ML paliperidone palmitate 312 MG/ML Prefilled Sy ringe [Invega] Invega Trinza 04/03/2021 12:00:00 AM EDT 819 mg/2.625 compl eted <td ID="MedicationRxNorm_2">6251292</td><td ID="MedicationMedication_2">Invega Trinza</td><td ID="MedicationRoute_2">intramuscularly</td><td ID="MedicationRouteConcept_2"></td><td ID="MedicationStartDate_2">04/03/2021</td><td ID="MedicationStopDate_2">07/02/2021</td><td ID="MedicationDosageFrequency_2">every three months</td><td ID="MedicationDuration_2">90</td><td ID="MedicationFormulaStrength_2">819 mg/2.625 mL</td><td ID="MedicationDosageForm_2">syringe</td><td ID="MedicationDosageFormCode_2"></td><td ID="MedicationDosageDescription_2"></td><td ID="MedicationMedicationId_2">[id number]</td><td ID="MedicationAccount_2">[id number]</td><td ID="MedicationNpid_2">[id number]</td><td ID="MedicationAuthorFirstName_2">Anselmo</td><td ID="MedicationAuthorLastName_2">Amilcar</td><td ID="MedicationTaxonomyCode_2">[id number]</td><td ID="MedicationTaxonomyDesc_2"> Nurse Practitioner</td><td ID="MedicationPhoneNumber_2">[phone]</td> [facility] ([facility]) haloperidol decanoate haloperidol decanoate 10/04/2020 12:00:00 AM EST 100 mg/mL completed <td ID="Me dicationRxNorm_1">4603532</td><td ID="MedicationMedication_1">haloperidol decanoate</td><td ID="MedicationRoute_1">intramuscularly</td><td ID="MedicationRouteConcept_1"> </td><td ID="MedicationStartDate_1">10/04/2020</td><td ID="MedicationStopDate_1">04/03/2021</td><td ID="MedicationDosageFrequency_1">as directed</td><td ID="MedicationDuration_1">21</td><td ID="MedicationFormulaStrength_1">100 mg/mL</td><td ID="MedicationDosageForm_1">solution</td><td ID="MedicationDosageFormCode_1"></td><td ID="MedicationDosageDescription_1"></td><td ID="MedicationMedicationId_1">[id number]</td><td ID="MedicationAccount_1">[id number]</td><td ID="MedicationNpid_1">[id number]</td><td ID="MedicationAuthorFirstName_1">Victorino</td><td ID="MedicationAuthorLastName_1">Esocbar</td><td ID="MedicationTaxonomyCode_1">[id number]</td><td ID="MedicationTaxonomyDesc_1"> Psychiatry</td><td ID="MedicationPhoneNumber_1">[phone]</td> [facility] ([facility]) 100 mg/mL 10/02/2020 12:00:00 AM EST solution [...] 50 mg by mouth completed <td ID="Medic ationRxNorm_5">404466</td><td ID="MedicationMedication_5">trazodone</td><td ID="MedicationRoute_5">by mouth</td><td ID="MedicationRouteConcept_5">J37713</td><td ID="MedicationStartDate_5">09/12/2020</td><td ID="MedicationStopDate_5">10/12/2020</td><td ID="MedicationDosageFrequency_5">every night</td><td ID="MedicationDuration_5">30</td><td ID="MedicationFormulaStrength_5">50 mg</td><td ID="MedicationDosageForm_5">tablet</td><td ID="MedicationDosageFormCode_5"></td><td ID="MedicationDosageDescription_5"></td><td ID="MedicationMedicationId_5">[id number]</td><td ID="MedicationAccount_5">[id number]</td><td ID="MedicationNpid_5">[id number]</td><td ID="MedicationAuthorFirstName_5">Kalli</td><td ID="MedicationAuthorLastName_5">Egorho</td><td ID="MedicationTaxonomyCode_5">[id number]</td><td ID="MedicationTaxonomyDesc_5">Nurse Practitioner</td><td ID="MedicationPhoneNumber_5">[phone]</td> [facility] ([facility]) Trazodone Hydrochloride 50 MG Oral Tablet trazodone 2019 12:00:00 AM EST 50 mg by mouth completed <td ID="Medic ationRxNorm_1">494468</td><td ID="MedicationMedication_1">trazodone</td><td ID="MedicationRoute_1">by mouth</td><td ID="MedicationRouteConcept_1">I11327</td><td ID="MedicationStartDate_1">09/12/2020</td><td ID="MedicationStopDate_1">10/12/2020</td><td ID="MedicationDosageFrequency_1">every night</td><td ID="MedicationDuration_1">30</td><td ID="MedicationFormulaStrength_1">50 mg</td><td ID="MedicationDosageForm_1">tablet</td><td ID="MedicationDosageFormCode_1"></td><td ID="MedicationDosageDescription_1"></td><td ID="MedicationMedicationId_1">[id number]</td><td ID="MedicationAccount_1">[id number]</td><td ID="MedicationNpid_1">[id number]</td><td ID="MedicationAuthorFirstName_1">Kalli</td><td ID="MedicationAuthorLastName_1">Egorho</td><td ID="MedicationTaxonomyCode_1">[id number]</td><td ID="MedicationTaxonomyDesc_1">Nurse Practitioner</td><td ID="MedicationPhoneNumber_1">[phone]</td> [facility] ([facility]) Haldol Decanoate Haldol Decanoate 09/12/2020 12:00:00 AM EST 100 mg/mL completed <td ID="MedicationRx Norm_4">5712384</td><td ID="MedicationMedication_4">Haldol Decanoate</td><td ID="MedicationRoute_4">intramuscularly</td><td ID="MedicationRouteConcept_4"></td><td ID="MedicationStartDate_4">09/12/2020</td><td ID="MedicationStopDate_4">09/15/2020</td><td ID="MedicationDosageFrequency_4">as directed</td><td ID="MedicationDuration_4">1</td><td ID="MedicationFormulaStrength_4">100 mg/mL</td><td ID="MedicationDosageForm_4">solution</td><td ID="MedicationDosageFormCode_4"></td><td ID="MedicationDosageDescription_4"></td><td ID="MedicationMedicationId_4">[id number]</td><td ID="MedicationAccount_4">[id number]</td><td ID="MedicationNpid_4">[id number]</td><td ID="MedicationAuthorFirstName_4">Kalli</td><td ID="MedicationAuthorLastName_4">Egorho</td><td ID="MedicationTaxonomyCode_4">[id number]</td><td ID="MedicationTaxonomyDesc_4">Nurse Practitioner</td><td ID="MedicationPhoneNumber_4">[phone]</td> [facility] ([facility]) quetiapine 300 MG Oral Tablet quetiapine 01/06/2020 12:00:00 AM EST 300 mg completed <td ID="Medicat ionRxNorm_4">226039</td><td ID="MedicationMedication_4">quetiapine</td><td ID="MedicationRoute_4"></td><td ID="MedicationRouteConcept_4"></td><td ID="MedicationStartDate_4">01/06/2020</td><td ID="MedicationStopDate_4">01/05/2021</td><td ID="MedicationDosageFrequency_4">at bedtime</td><td ID="MedicationDuration_4">30</td><td ID="MedicationFormulaStrength_4">300 mg</td><td ID="MedicationDosageForm_4">tablet</td><td ID="MedicationDosageFormCode_4"></td><td ID="MedicationDosageDescription_4"></td><td ID="MedicationMedicationId_4">[id number]</td><td ID="MedicationAccount_4">[id number]</td><td ID="MedicationNpid_4">[id number]</td><td ID="MedicationAuthorFirstName_4">Dane</td><td ID="MedicationAuthorLastName_4">[place]</td><td ID="MedicationTaxonomyCode_4">[id number]</td><td ID="MedicationTaxonomyDesc_4">Psychiatric/Mental Health</td><td ID="MedicationPhoneNumber_4">[phone]</td> [facility] ([facility]) quetiapine 300 MG Oral Tablet quetiapine 01/06/2020 12:00:00 AM EST 300 mg completed <td ID="Medicat ionRxNorm_1">174840</td><td ID="MedicationMedication_1">quetiapine</td><td ID="MedicationRoute_1"></td><td ID="MedicationRouteConcept_1"></td><td ID="MedicationStartDate_1">01/06/2020</td><td ID="MedicationStopDate_1">01/05/2021</td><td ID="MedicationDosageFrequency_1">at bedtime</td><td ID="MedicationDuration_1">30</td><td ID="MedicationFormulaStrength_1">300 mg</td><td ID="MedicationDosageForm_1">tablet</td><td ID="MedicationDosageFormCode_1"></td><td ID="MedicationDosageDescription_1"></td><td ID="MedicationMedicationId_1">[id number]</td><td ID="MedicationAccount_1">[id number]</td><td ID="MedicationNpid_1">[id number]</td><td ID="MedicationAuthorFirstName_1">Dane</td><td ID="MedicationAuthorLastName_1">Loida</td><td ID="MedicationTaxonomyCode_1">[id number]</td><td ID="MedicationTaxonomyDesc_1">Psychiatric/Mental Health</td><td ID="MedicationPhoneNumber_1">[phone]</td> [facility] ([facility]) quetiapine 300 MG Oral Tablet quetiapine 01/06/2020 12:00:00 AM EST 300 mg completed <td ID="Medicat ionRxNorm_5">528559</td><td ID="MedicationMedication_5">quetiapine</td><td ID="MedicationRoute_5"></td><td ID="MedicationRouteConcept_5"></td><td ID="MedicationStartDate_5">01/06/2020</td><td ID="MedicationStopDate_5">01/05/2021</td><td ID="MedicationDosageFrequency_5">at bedtime</td><td ID="MedicationDuration_5">30</td><td ID="MedicationFormulaStrength_5">300 mg</td><td ID="MedicationDosageForm_5">tablet</td><td ID="MedicationDosageFormCode_5"></td><td ID="MedicationDosageDescription_5"></td><td ID="MedicationMedicationId_5">[id number]</td><td ID="MedicationAccount_5">[id number]</td><td ID="MedicationNpid_5">[id number]</td><td ID="MedicationAuthorFirstName_5">Dane</td><td ID="MedicationAuthorLastName_5">Loida</td><td ID="MedicationTaxonomyCode_5">[id number]</td><td ID="MedicationTaxonomyDesc_5">Psychiatric/Mental Health</td><td ID="MedicationPhoneNumber_5">[phone]</td> [facility] ([facility]) [facility]12/20/2019 12:00:00 AM EST mg/3.9 completed <td ID="MedicationRxNorm_3">2734582</td><td ID="MedicationMedication_3">Ari</td><td ID="MedicationRoute_3">intramuscularly</td><td ID="MedicationRouteConcept_3"></td><td ID="MedicationStartDate_3">12/20/2019</td><td ID="MedicationStopDate_3">09/12/2020</td><td ID="MedicationDosageFrequency_3"></td><td ID="MedicationDuration_3"></td><td ID="MedicationFormulaStrength_3">1,064 mg/3.9 mL</td><td ID="MedicationDosageForm_3">suspension,extended rel syring</td><td ID="MedicationDosageFormCode_3"></td><td ID="MedicationDosageDescription_3">as directed</td><td ID="MedicationMedicationId_3">[id number]</td><td ID="MedicationAccount_3">[id number]</td><td ID="MedicationNpid_3">[id number]</td><td ID="MedicationAuthorFirstName_3">Dane</td><td ID="MedicationAuthorLastName_3">Loida</td><td ID="MedicationTaxonomyCode_3">[id number]</td><td ID="MedicationTaxonomyDesc_3"> Psychiatric/Mental Health</td><td ID="MedicationPhoneNumber_3">[phone]</td> [facility] ([facility]) Trazodone Hydrochloride 50 MG Oral Tablet trazodone 2018 12:00:00 AM EDT 50 mg by mouth completed <td ID="Medic ationRxNorm_2">268201</td><td ID="MedicationMedication_2">trazodone</td><td ID="MedicationRoute_2">by mouth</td><td ID="MedicationRouteConcept_2">A11181</td><td ID="MedicationStartDate_2">06/10/2019</td><td ID="MedicationStopDate_2">09/12/2020</td><td ID="MedicationDosageFrequency_2">at bedtime</td><td ID="MedicationDuration_2"></td><td ID="MedicationFormulaStrength_2">50 mg</td><td ID="MedicationDosageForm_2">tablet</td><td ID="MedicationDosageFormCode_2"></td><td ID="MedicationDosageDescription_2"></td><td ID="MedicationMedicationId_2">[id number]</td><td ID="MedicationAccount_2">[id number]</td><td ID="MedicationNpid_2">[id number]</td><td ID="MedicationAuthorFirstName_2">Dane</td><td ID="MedicationAuthorLastName_2">[place]</td><td ID="MedicationTaxonomyCode_2">[id number]</td><td ID="MedicationTaxonomyDesc_2">Psychiatric/Mental Health</td><td ID="MedicationPhoneNumber_2">[phone]</td> [facility] ([facility]) Amantadine Hydrochloride 100 MG Oral Capsule amantadine HCl 07/30/2017 12:00:00 AM EDT 100 mg by mouth completed <td ID="MedicationRxNorm_1">425099</td><td ID="MedicationMedication_1">amantadine HCl</td><td ID="MedicationRoute_1">by mouth</td><td ID="MedicationRouteConcept_1">D62649</td><td ID="MedicationStartDate_1">07/30/2017</td><td ID="MedicationStopDate_1">09/12/2020</td><td ID="MedicationDosageFrequency_1">every morning</td><td ID="MedicationDuration_1"></td><td ID="MedicationFormulaStrength_1">100 mg</td><td ID="MedicationDosageForm_1">capsule</td><td ID="MedicationDosageFormCode_1"></td><td ID="MedicationDosageDescription_1"></td><td ID="MedicationMedicationId_1">[id number]</td><td ID="MedicationAccount_1">[id number]</td><td ID="MedicationNpid_1">[id number]</td><td ID="MedicationAuthorFirstName_1">Dane</td><td ID="MedicationAuthorLastName_1">Loida</td><td ID="MedicationTaxonomyCode_1">[id number]</td><td ID="MedicationTaxonomyDesc_1">Psychiatric/Mental Health</td><td ID="MedicationPhoneNumber_1">[phone]</td> [facility] ([facility]) Insurance Providers Payer name Policy type / Coverage type Policy ID Covered alliance party ID Covered alliance party's relationship to shafer Policy Shafer Plan Information Medicaid S [id number] S [id number] Managed Care - Community Plan [facility] P [id number] S [id number] Medicaid S [id number] S [id number] [facility] I [id number] Self [id number] [facility] I [id number] Self [id number] [facility] I [id number] Self [id number] Managed Care - [facility] Community Plan P [id number] S [id number] Medicaid S [id number] S [id number] Managed Care - UHC Community Plan P [id number] S [id number] [employer] COMMUNITY PLAN MCDO [id number] SP [id number] [facility] CRE [id number] SP [id number] [facility] [id number] SP [id number] SELF PAY [facility] OFF[facility]ENTAL [facility] UNAVAILABLE S UNAVAILABLE MEDICAID [id number] S [id number] [facility] OFFICE OF MENTAL HE[facility] [id number] S [id number] [facility] [id number] SP [id number] [facility] OFFICE OF MENTAL HEALTH [id number] S [id number] [facility] COMMUNITY PLAN MCDO [id number] SP [id number] SELF PAY ONLY [id number] SP [id number] [facility] [id number] SP [id number] SELF PAY SP [facility]) O [id number] S [id number] [facility] [id number] SP [id number] Self Pay P UNAVAILABLE S UNAVAILA BLE [facility]) O [id number] S [id number] [facility] [id number] SP [id number] MEDICAID [id number] SP [id number] [employer] COMMUNITY PLAN MCDO [id number] SP [id number] MEDICAID [id number] SP [id number] Problems, Conditions, and Diagnoses Code Display Name Description Problem Type Effective Dates Data Source(s) F11.10 Opioid abuse, uncomplicated F11.10 - Opioid abus e, uncomplicated Diagnosis 02/27/2021 08:12:00 PM EDT [facility] 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, uncomplicated F16.10 - Hallucinogen abuse, uncomplicated Diagnosis 02/27/2021 08:12:[facility] F25.9 Schizoaffective disorder, unspecified F2 5.9 - Schizoaffective disorder, unspecified Diagnosis 02/27/2021 08:12:00 PM EDT [facility] Z13.9 Encounter for screening, unspecified Z13 .9 - Encounter for screening, unspecified Diagnosis 02/27/2021 08:12:00 PM [facility]T [facility] schizophrenia, hallucinations, substance abuse schizophrenia, hallucinations, substance abuse Diagnosis 09/22/2020 02:27:00 PM [facility] F15.20 Other stimulant dependence, uncomplicate d Stimulant Use Disorder, Moderate: Amphetamine-type substance Condition 07/29/2021 12:00:00 AM EDT [facility] ([facility]) F10.20 Alcohol dependence, uncomplicated Alcohol Use Disorder , Severe Condition 07/29/2021 12:00:00 AM EDT [facility] ([facility]) F17.200 Nicotine dependence, unspecified, uncomp licated Tobacco Use Disorder, Moderate Condition 07/29/2021 12:00:00 AM EDT [facility] ([facility]) F12.20 Cannabis dependence, uncomplicated Cannabis Use Disorder, Moderate Condition 07/29/2021 12:00:00 AM EDT [facility] ([facility]) F20.9 Schizophrenia, unspecified Schizophrenia Condition 07/29/2021 12:00:00 AM EDT [facility] ([facility]) Surgeries/Procedures Procedure Description Date Indications Data Source(s) Comprehensive medication services, per 15 minutes 07/29/2021 12:00:00 AM EDT - 07/29/2021 12:00:00 AM EDT [facility] ([facility]) Comprehensive medication services, per 15 minutes 07/29/2021 12:00:00 AM EDT [facility] ([facility]) Comprehensive medication services, per 15 minutes 06/24/2021 12:00:00 AM EDT - 06/24/2021 12:00:00 AM EDT [facility] ([facility]) Comprehensive medication services, per 15 minutes 06/24/2021 12:00:00 AM EDT [facility] ([facility]) THERAPEUTIC PROPHYLACTIC/DX INJECTION SUBQ/IM 05/27/2021 12:00:00 AM EDT - 05/27/2021 12:00:00 AM EDT [facility] ([facility]) THERAPEUTIC PROPHYLACTIC/DX INJECTION SUBQ/IM 05/27/20 12:00:00 AM EDT [facility] ([facility]) Brief Individual Psychotherapy - 30 min 05/13/2021 12:00:00 AM EDT - 05/13/2021 12:00:00 AM EDT [facility] ([facility]) Brief Individual Psychotherapy - 30 min 05/13/2021 12: 00:00 AM EDT [facility] ([facility]) Comprehensive medication services, per 15 minutes 04/04/2021 12:00:00 AM EDT - 04/04/2021 12:00:00 AM EDT [facility] ([facility]) Comprehensive medication services, per 15 minutes 04/03/2021 12:00:00 AM EDT [facility] ([facility]) OFFICE OUTPATIENT VISIT 15 MINUTES 04/03 12:00:00 AM EDT - 04/03/2021 12:00:00 AM EDT [facility] ([facility]) Psychotherapy ADD ON - 30 Minutes 04/03/2021 12:00:00 AM EDT [facility] ([facility]) OFFICE OUTPATIENT VISIT 15 MINUTES 04/03/2021 12:00:00 AM EDT [facility] ([facility]) OFFICE OUTPATIENT VISIT 15 MINUTES 03/27 12:00:00 AM EDT - 03/27/2021 12:00:00 AM EDT [facility] ([facility]) OFFICE OUTPATIENT VISIT 15 MINUTES 03/27/2021 12:00:00 AM EDT [facility] ([facility]) OFFICE OUTPATIENT VISIT 15 MINUTES 03/19 12:00:00 AM EDT - 03/19/2021 12:00:00 AM EDT [facility] ([facility]) OFFICE OUTPATIENT VISIT 15 MINUTES 03/19/2021 12:00:00 AM EDT [facility] ([facility]) OFFICE OUTPATIENT VISIT 15 MINUTES 02/12 12:00:00 AM EDT - 02/12/2021 12:00:00 AM EDT [facility] ([facility]) OFFICE OUTPATIENT VISIT 15 MINUTES 02/12/2021 12:00:00 AM EDT [facility] ([facility]) OFFICE OUTPATIENT VISIT 15 MINUTES 02/07 12:00:00 AM EDT - 02/07/2021 12:00:00 AM EDT [facility] ([facility]) OFFICE OUTPATIENT VISIT 15 MINUTES 02/07/2021 12:00:00 AM EDT [facility] ([facility]) Brief Individual Psychotherapy - 30 min 02/01/2021 12:00:00 AM EDT - 02/01/2021 12:00:00 AM EDT [facility] ([facility]) Brief Individual Psychotherapy - 30 min 02/01/2021 12: 00:00 AM EDT [facility] ([facility]) OFFICE OUTPATIENT VISIT 15 MINUTES 01/23 12:00:00 AM EDT - 01/23/2021 12:00:00 AM EDT [facility] ([facility]) OFFICE OUTPATIENT VISIT 15 MINUTES 01/23/2021 12:00:00 AM EDT [facility] ([facility]) THERAPEUTIC PROPHYLACTIC/DX INJECTION SUBQ/IM 01/23/2021 12:00:00 AM EDT - 01/23/2021 12:00:00 AM EDT [facility] ([facility]) THERAPEUTIC PROPHYLACTIC/DX INJECTION SUBQ/IM 01/24/20 12:00:00 AM EDT [facility] ([facility]) Comprehensive medication services, per 15 minutes 01/18/2021 12:00:00 AM EDT - 01/18/2021 12:00:00 AM EDT [facility] ([facility]) Comprehensive medication services, per 15 minutes 01/18/2021 12:00:00 AM EDT [facility] ([facility]) OFFICE OUTPATIENT VISIT 15 MINUTES 01/17 12:00:00 AM EDT - 01/17/2021 12:00:00 AM EDT [facility] ([facility]) OFFICE OUTPATIENT VISIT 15 MINUTES 01/17/2021 12:00:00 AM EDT [facility] ([facility]) MHC Telemed E/M Lvl 3--Est pt 01/01/2021 12:00:00 AM EST - 01/01/2021 12:00:00 AM EST [facility] ([facility]) MHC Telemed E/M Lvl 3--Est pt 01/01/2021 12:00:[address] [facility] ([facility]) THERAPEUTIC PROPHYLACTIC/DX INJECTION SUBQ/IM 12/28/2020 12:00:00 AM EST - 12/28/2020 12:00:00 AM EST [facility] ([facility]) THERAPEUTIC PROPHYLACTIC/DX INJECTION SUBQ/IM 12/28/19 12:00:00 AM EST [facility] ([facility]) MHC Telemed E/M Lvl 3--Est pt 12/20/2020 12:00:00 AM EST - 12/20/2020 12:00:00 AM EST [facility] ([facility]) MHC Telemed E/M Lvl 3--Est pt 12/20/2020 12:00:[address] [facility] ([facility]) MHC Telemed E/M Lvl 3--Est pt 12/06/2020 12:00:00 AM EST - 12/06/2020 12:00:00 AM EST [facility] ([facility]) MHC Telemed E/M Lvl 3--Est pt 12/06/2020 12:00:[address] [facility] ([facility]) Comprehensive medication services, per 15 minutes 11/15/2020 12:00:00 AM EST - 11/15/2020 12:00:00 AM EST [facility] ([facility]) Comprehensive medication services, per 15 minutes 11/15/2020 12:00:00 AM EST [facility] ([facility]) OFFICE OUTPATIENT VISIT 15 MINUTES 11/15 12:00:00 AM EST - 11/15/2020 12:00:00 AM EST [facility] ([facility]) OFFICE OUTPATIENT VISIT 15 MINUTES 11/15/2020 12:00:00 AM EST [facility] ([facility]) THERAPEUTIC PROPHYLACTIC/DX INJECTION SUBQ/IM 10/18/2020 12:00:00 AM EST - 10/18/2020 12:00:00 AM EST [facility] ([facility]) THERAPEUTIC PROPHYLACTIC/DX INJECTION SUBQ/IM 10/18/20 20 12:00:00 AM EST [facility] ([facility]) THERAPEUTIC PROPHYLACTIC/DX INJECTION SUBQ/IM 10/15/2020 12:00:00 AM EST - 10/15/2020 12:00:00 AM EST [facility] ([facility]) THERAPEUTIC PROPHYLACTIC/DX INJECTION SUBQ/IM 10/15/20 20 12:00:00 AM EST [facility] ([facility]) THERAPEUTIC PROPHYLACTIC/DX INJECTION SUBQ/IM 10/04/2020 12:00:00 AM EST - 10/04/2020 12:00:00 AM EST [facility] ([facility]) THERAPEUTIC PROPHYLACTIC/DX INJECTION SUBQ/IM 10/04/20 20 12:00:00 AM EST [facility] ([facility]) OFFICE OUTPATIENT VISIT 15 MINUTES 10/04 12:00:00 AM EST - 10/04/2020 12:00:00 AM EST [facility] ([facility]) OFFICE OUTPATIENT VISIT 15 MINUTES 10/04/2020 12:00:00 AM EST [facility] ([facility]) OFFICE OUTPATIENT VISIT 15 MINUTES 09/12 12:00:00 AM EST - 09/12/2020 12:00:00 AM EST [facility] ([facility]) OFFICE OUTPATIENT VISIT 15 MINUTES 09/12/2020 12:00:00 AM EST [facility] ([facility]) THERAPEUTIC PROPHYLACTIC/DX INJECTION SUBQ/IM 09/12/2020 12:00:00 AM EST - 09/12/2020 12:00:00 AM EST [facility] [facility] THERAPEUTIC PROPHYLACTIC/DX INJECTION SUBQ/IM 09/12/20 20 12:00:00 AM EST [facility] ([facility]) OFFICE OUTPATIENT VISIT 15 MINUTES 08/10 12:00:00 AM EDT - 08/10/2020 12:00:00 AM EDT [facility] ([facility]) OFFICE OUTPATIENT VISIT 15 MINUTES 08/10/2020 12:00:00 AM EDT [facility] ([facility]) THERAPEUTIC PROPHYLACTIC/DX INJECTION SUBQ/IM 07/13/2020 12:00:00 AM EDT - 07/13/2020 12:00:00 AM EDT [facility] ([facility]) THERAPEUTIC PROPHYLACTIC/DX INJECTION SUBQ/IM 07/13/20 20 12:00:00 AM EDT [facility] ([facility]) Results ID Date Data Source [id number] 07/19/2021 10:40:00 AM EDT [facility] Name Value Range Interpretation Code Description Data Michelle rce(s) Supporting Document(s) SARS coronavirus 2 RNA [Presence] in Res piratory specimen by [facility]MI with probe detection NEGATIVE [facility] This lab was ordered by [facility] a nd reported by [facility]. ID Date Data Source [id number] 07/19/2021 09:50:00 AM EDT [facility] Name Value Range Interpretation Code Description Data Michelle rce(s) Supporting Document(s) SARS COVID ANTIGEN NEGATIVE [facility] This lab was ordered by [facility] a nd reported by [facility]. ID Date Data Source [id number] 06/04/2021 08:17:00 PM EDT [facility] Name Value Range Interpretation Code Description Data Michelle rce(s) Supporting Document(s) SARS coronavirus 2 RNA [Presence] in Res piratory specimen by OMI with probe detection NEGATIVE [facility] This lab was ordered by [facility] a nd reported by [facility]. ID Date Data Source [id number] 05/01/2021 01:57:00 PM EDT [facility] Name Value Range Interpretation Code Description Data Michelle rce(s) Supporting Document(s) SARS coronavirus 2 RNA [Presence] in Res piratory specimen by OMI with probe detection NEGATIVE [facility] This lab was ordered by [facility] a nd reported by [facility]. ID Date Data Source [id number] 04/19/2021 06:29:00 AM EDT [facility] Name Value Range Interpretation Code Description Data Michelle rce(s) Supporting Document(s) SARS coronavirus 2 RNA [Presence] in Res piratory specimen by OMI with probe detection NEGATIVE [facility] This lab was ordered by [facility] a nd reported by [facility]. ID Date Data Source [id number] 04/17/2021 05:50:00 PM EDT [facility] Name Value Range Interpretation Code Description Data Michelle rce(s) Supporting Document(s) SARS-CoV-2 (COVID-19) RNA [Presence] in Respiratory specimen by OMI with probe detection Not Detected [facility] This lab was ordered by [facility] and reported by [facility]. ID Date Data Source [id number] 02/28/2021 04:53:00 [place] [address] HEALTH INFORMATION MANAGEMENT History and Physical Report : [id number] Signed Patient: Gabo Parra Acct:[id number] Unit: Low [id number] : 1980 Loc: [facility] Room/Bed: 820-B Age/Sex: 40 / M ADM [...] charges for this visit?: Yes Inpt Consult [id number] Cons Level 1: Yes Signed By:Rambo Summers <<Signature on File>> Signed Date/Time: 02/28/21 4272 Co-Signer: Leonel Hubbard MD Co-Signed Date/Time: 02/28/21 2026 Initializing User: Rambo Summers NP 02/28/211652 52 52 Name Value Range Interpretation Code Description Data Michelle rce(s) Supporting Document(s) ID Date Data Source [id number] 02/28/2021 10:45:00 AM EDT [facility] [address] [place] [address] HEALTH INFORMATION MANAGEMENT [facility] Psychosocial Summary : [id number] Signed Patient: Gabo Parra Acct:[id number] Unit: M [id number] : 1980 Loc: [facility] Room/Bed: 820-B Age/Sex: 40 / M ADM Date: 02/27/21 cc: General/History - Presenting Problem Presenting Problem: Social Summary/Discharge plan Presenting Problem Gabo is a40 yo AAM, extensive psych hx, also problems with substance abuse admitted on a transfer from [facility] ER brought in there by his CW as pt was feeling depressed, suicidal, also hallucinating and after abusing drugs History. tates was partially complaint with meds. Not able to name his psychiatrist in [place], not able to name the therapist. Gives h/o 5 to 6 inpt psych txs, last one few months ago, "I can't remember the place, they send me from [facility]. " Also, h'o inpt psych tx at [facility]. H/o self harm time, tried to hand [...] Person?: No Are you part of any cheondoism/spirtual community?: Yes (Congregational ) - Current Living/Relationship History Current Living Arrangement: House Who Do You Live With?: Mother. OK to Return Home: Yes Weapons in household: No Currently in a Relationship?: No Ever Been ?: No Any Children?: 2 - Family History Where Were You Born/Raised?: [place] Who Was in Home?: Mother, Father How [...] Reducing Risk: Complies with Tx/Meds, Future Oriented, Holiness Beliefs Mental Status Treatment - Mental Status [...] rce(s) Supporting Document(s) ID Date Data Source [id number] 02/27/2021 04:28:00 PM EDT [facility] Name Value Range Interpretation Code Description Data Michelle rce(s) Supporting Document(s) SARS coronavirus 2 RNA [Presence] in Res piratory specimen by OMI with probe detection NEGATIVE [facility] This lab was ordered by [facility] a nd reported by [facility]. ID Date Data Source [id number] 01/23/2021 01:03:00 AM EDT [facility] Name Value Range Interpretation Code Description Data Michelle rce(s) Supporting Document(s) SARS coronavirus 2 RNA [Presence] in Res piratory specimen by OMI with probe detection NEGATIVE [facility] This lab was ordered by [facility] a nd reported by [facility]. ID Date Data Source [id number] 10/17/2020 12:19:00 AM EST [facility] Name Value Range Interpretation Code Description Data Michelle rce(s) Supporting Document(s) SARS coronavirus 2 RNA [Presence] in Res piratory specimen by OMI with probe detection [facility] This lab was ordered by [facility] a nd reported by [facility]. Procedure Social History Code Duration Value Status Description Data Source(s ) Smoking 07/29/2021 12:00:00 AM EDT Unknown if ever smoked comp leted Unknown if ever smoked [facility] ([facility]) Smoking 06/24/2021 12:00:00 AM EDT Unknown if ever smoked comp leted Unknown if ever smoked [facility] ([facility]) Smoking 05/27/2021 12:00:00 AM EDT Unknown if ever smoked comp leted Unknown if ever smoked [facility] ([facility]) Smoking 05/13/2021 12:00:00 AM EDT Unknown if ever smoked comp leted Unknown if ever smoked [facility] ([facility]) Smoking 04/04/2021 12:00:00 AM EDT Unknown if ever smoked comp leted Unknown if ever smoked [facility] ([facility]) Smoking 04/03/2021 12:00:00 AM EDT Unknown if ever smoked comp leted Unknown if ever smoked [facility] ([facility]) Smoking 03/27/2021 12:00:00 AM EDT Unknown if ever smoked comp leted Unknown if ever smoked [facility] ([facility]) Smoking 03/19/2021 12:00:00 AM EDT Unknown if ever smoked comp leted Unknown if ever smoked [facility] ([facility]) Smoking 02/12/2021 12:00:00 AM EDT Unknown if ever smoked comp leted Unknown if ever smoked [facility] ([facility]) Smoking 02/07/2021 12:00:00 AM EDT Unknown if ever smoked comp leted Unknown if ever smoked [facility] ([facility]) Smoking 02/01/2021 12:00:00 AM EDT Unknown if ever smoked comp leted Unknown if ever smoked [facility] ([facility]) Smoking 01/23/2021 12:00:00 AM EDT Unknown if ever smoked comp leted Unknown if ever smoked [facility] ([facility]) Smoking 01/18/2021 12:00:00 AM EDT Unknown if ever smoked comp leted Unknown if ever smoked [facility] ([facility]) Smoking 01/17/2021 12:00:00 AM EDT Unknown if ever smoked comp leted Unknown if ever smoked [facility] ([facility]) Smoking 01/01/2021 12:00:00 AM EST Unknown if ever smoked comp leted Unknown if ever smoked [facility] ([facility]) Smoking 12/28/2020 12:00:00 AM EST Unknown if ever smoked comp leted Unknown if ever smoked [facility] ([facility]) Smoking 12/20/2020 12:00:00 AM EST Unknown if ever smoked comp leted Unknown if ever smoked [facility] ([facility]) Smoking 12/06/2020 12:00:00 AM EST Unknown if ever smoked comp leted Unknown if ever smoked [facility] ([facility]) Smoking 11/15/2020 12:00:00 AM EST Unknown if ever smoked comp leted Unknown if ever smoked [facility] ([facility]) Smoking 10/18/2020 12:00:00 AM EST Unknown if ever smoked comp leted Unknown if ever smoked [facility] ([facility]) Smoking 10/15/2020 12:00:00 AM EST Unknown if ever smoked comp leted Unknown if ever smoked [facility] ([facility]) Smoking 10/04/2020 12:00:00 AM EST Unknown if ever smoked comp leted Unknown if ever smoked [facility] ([facility]) Smoking 09/12/2020 12:00:00 AM EST Unknown if ever smoked comp leted Unknown if ever smoked [facility] ([facility]) Smoking 08/10/2020 12:00:00 AM EDT Unknown if ever smoked comp leted Unknown if ever smoked [facility] ([facility]) Smoking 07/13/2020 12:00:00 AM EDT Unknown if ever smoked comp leted Unknown if ever smoked [facility] ([facility]) Vital Signs ID Date Data Source UNK Name Value Range Interpretation Code Description Data Source(s) Body height 0.00 in Normal (applies to non-numeric resu lts) 0.00 in [facility] ([facility]) Body weight Measured 0.00 lbs Normal (applies to n on-numeric results) 0.00 lbs [facility] ([facility]) Body mass index (BMI) [Ratio] 0.00 kg/m2 No rmal (applies to non-numeric results) 0.00 kg/m2 [facility] ([facility]) Systolic blood pressure 0 mm[Hg] Normal (applies t o non-numeric results) 0 mm[Hg] [facility] ([facility]) Diastolic blood pressure 0 mm[Hg] Normal (applies to non-numeric results) 0 mm[Hg] [facility] ([facility]) Body height 0.00 in Normal (applies to non-numeric resu lts) 0.00 in [facility] ([facility]) Body weight Measured 0.00 lbs Normal (applies to n on-numeric results) 0.00 lbs [facility] ([facility]) Body mass index (BMI) [Ratio] 0.00 kg/m2 No rmal (applies to non-numeric results) 0.00 kg/m2 [facility] ([facility]) Systolic blood pressure 0 mm[Hg] Normal (applies t o non-numeric results) 0 mm[Hg] [facility] ([facility]) Diastolic blood pressure 0 mm[Hg] Normal (applies to non-numeric results) 0 mm[Hg] [facility] Body height 0.00 in Normal (applies to non-numeric resu lts) 0.00 in [facility]) Body weight Measured 0.00 lbs Normal (applies to n on-numeric results) 0.00 lbs [facility] ([facility]) Body mass index (BMI) [Ratio] 0.00 kg/m2 No rmal (applies to non-numeric results) 0.00 kg/m2 [facility] ([facility]) Systolic blood pressure 0 mm[Hg] Normal (applies t o non-numeric results) 0 mm[Hg] [facility] ([facility]) Diastolic blood pressure 0 mm[Hg] Normal (applies to non-numeric results) 0 mm[Hg] [facility] ([facility]) Body height 0.00 in Normal (applies to non-numeric resu lts) 0.00 in [facility] ([facility]) Body weight Measured 0.00 lbs Normal (applies to n on-numeric results) 0.00 lbs [facility] ([facility]) Body mass index (BMI) [Ratio] 0.00 kg/m2 No rmal (applies to non-numeric results) 0.00 kg/m2 [facility] ([facility]) Systolic blood pressure 0 mm[Hg] Normal (applies t o non-numeric results) 0 mm[Hg] [facility] ([facility]) Diastolic blood pressure 0 mm[Hg] Normal (applies to non-numeric results) 0 mm[Hg] [facility] ([facility]) ID Date Data Source [id number] 09/22/2020 02:27:59 PM [facility] Name Value Range Interpretation Code Description Data Source(s) TRANSFER FROM [facility]
== END 2021-08-14 17:30 | disposition left against medical advice (07) ==
LOC: M ED 15:54
DX: Z53.21 Procedure and treatment not carried out due to patient leaving prior to being seen by health care provider (principal)

== ENCOUNTER 2021-08-15 08:59 | Emergency (ER) | payer MEDICAID, OTHER ==
[~2021-08-15] VITALS: Ht 175.3 cm; Wt 72.8 kg
--- OUTSIDE RECORDS SUMMARY | 2021-08-15 09:07 | CCD ---
Author Author [facility] Organization [facility] Address Unknown Phone Unavailable Support Name Relationship Address Phone Hudson GUTIERREZ, Pasha Next Of Kin [address] [place] [address] Diamante Costa Next Of Kin [address] [place] [address] Dwain Joseph DO Next Of Kin [address] [place] [address] Cameron Bingham MD Next Of Kin [address] [place] [address] SELFGARY Next Of Kin [address] [place] [address] YONI JACK Next Of Kin [address] [place] [address] CORRECTIONAL, KAW Next Of Kin [address] [place] [address] Monique Conklin MD Next Of Kin [address] [place] [phone] YONI CALHOUN Next Of Kin [address] [place] [address] Isabelle Manning Next Of Kin [address] [place] [address] Pat Gallo DO Next Of Kin [address] [place] [address] DISABLED Next Of Kin Unknown Unavailable Buhl Self Next Of Kin [address] [place] [phone] SELF, JUNIOR Next Of Kin [address] [place] [address] UE Next Of Kin Unknown Unavailable SIMON WALL Next Of Kin [address] [place] [address] SELF, JUNIOR [address] [place] [address] Unavailable Care Team Providers Care Biomedical Electronics Technician Name Role Phone Farden, M Rambo Unavailable [...] Unavailable Gina Nash Unavailable AMILCAR, H ANSELMO [employer] Unavailable Unavailable AMILCAR, H ANSELMO [employer] [employer] Unavailable Unavailable AMILCAR, H ANSELMO [employer] [employer] Unavailable Unavailable AMILCAR, H ANSELMO [employer] [employer] Unavailable Unavailable AMILCAR, H ANSELMO [employer] [employer] Unavailable Unavailable AMILCAR, H ANSELMO [employer] [employer] Unavailable Unavailable AMILCAR, H ANSELMO [employer] [employer] Unavailable Unavailable AMILCAR, H ANSELMO [employer] [employer] Unavailable Unavailable AMILCAR, H ANSELMO [employer] Unavailable Unavailable Jossie Marcelino Unavailable Rotella, Jossy [...] F KALLI FPMHNP Unavailable Unavailable EGORHO, F KALIL FPMHNP Unavailable Unavailable EGORHO, F KALLI FPMHNP [...] is protected by Article 27-F of the [facility] Public Health law. If you continue you may have access to information: Regarding HIV / AIDS; Provided by facilities licensed or operated by the [facility] Office of Mental Health; or Provided by the [facility] Office for People With Developmental Disabilities. If such information is present, then the following [facility] mandated warning applies: This information has [...] law may result in a fine or correction sentence or both. A general authorization for the release of medical or other information is NOT sufficient authorization for further disc losure. Allergies and Adverse Reactions Type Description Substance Reaction Status Data Source(s ) Drug allergy No Known Allergies No Known Allergies [facility] Propensity to adverse reactions NO KNOWN ALLERGIES NO KNOWN ALLERGIES [facility] Encounters Encounter Providers Location Date Indications Data Source(s ) Injectable Medication Administration w/ Monitoring & E ducation Attender: Pammurphy Isbellpo [facility] 07/29/2021 02:30:00 AM EDT - 07/29/2021 02:30:00 AM EDT [facility] ([facility]) Attender: Pam Juarez 07/29/2021 12:00:00 AM EDT [facility] ([facility]) Injectable Medication Administration w/ Monitoring & E ducation Attender: Thalia Carreno [facility] 06/24/2021 10:45:00 AM EDT - 06/24/2021 10:45:00 AM EDT [facility] ([facility]) Attender: Thalia Carreno 06/24/2021 12:00:00 AM EDT [facility] ([facility]) Injectable Psychotropic Medication Administration (Inj ection Only) Attender: Thalia Carreno [facility] 05/27/2021 08:15:00 AM EDT - 05/27/2021 08:15:00 AM EDT [facility] ([facility]) Attender: Thalia Carreno 05/27/2021 12:00:00 AM EDT [facility] ([facility]) Brief Individual Psychotherapy - 30 min Attender: Gina yun [facility] 05/13/2021 08:30:00 AM EDT - 05/13/2021 08:30:00 AM EDT [facility] ([facility]) Attender: Gina Nash 05/13/2021 12:00:00 AM EDT [facility] ([facility]) Attender: Pam Juarez 04/04/2021 12:00:00 AM EDT [facility] ([facility]) Injectable Medication Administration w/ Monitoring & E ducation Attender: Pam Borjapo [facility] Maria Alejandra 04/03/2021 09:00:00 AM EDT - 04/03/2021 09:00:00 AM EDT [facility] ([facility]) Outpatient Attender: ANSELMO APONTE NP [facility] Mike garcía 04/03/2021 08:30:00 AM EDT - 04/03/2021 08:30:00 AM EDT [facility] ([facility]) Attender: ANSELMO APONTE NP 04/03/2021 12:00:00 AM EDT [facility] ([facility]) Outpatient Attender: ANSELMO APONTE NP [facility] Mike garcía 03/27/2021 11:00:00 AM EDT - 03/27/2021 11:00:00 AM EDT [facility] ([facility]) Attender: ANSELMO APONTE NP 03/27/2021 12:00:00 AM EDT [facility] ([facility]) Outpatient Attender: ANSELMO APONTE NP [facility] Mike garcía 03/19/2021 03:00:00 AM EDT - 03/19/2021 03:00:00 AM EDT [facility] ([facility]) Attender: ANSELMO APONTE NP 03/19/2021 12:00:00 AM EDT [facility] ([facility]) Inpatient Attender: JONNATHAN Marieeitter: JONNATHAN TRACY MD 02/27/2021 08:12:00 PM EDT - 03/08/2021 03:27:00 PM EDT Suicidal Ideation / Homicidal Ideation [facility] Suicidal Ideation / Homicidal Ideation Patient discharged. Outpatient Attender: JONNATHAN Bonilla tter: JONNATHAN TRACY MDConsultant: JONNATHAN TRACY MD 02/27/2021 08:12:00 PM EDT Suicidal Ideation / H omicidal Ideation [facility] Suicidal Ideation / Homicidal Ideation Outpatient Attender: JONNATHAN TRACY MDAdmi tter: JONNATHAN MAIAL MDConsultant: JONNATHAN TRACY MD 02/27/2021 08:12:00 PM EDT Suicidal Ideation / H omicidal Ideation [facility] Suicidal Ideation / Homicidal Ideation Outpatient Attender: Castro ColonAdmitter : JONNATHAN MAIAL MDConsultant: JONNATHAN TRACY MD 02/27/2021 08:12:00 PM EDT Suicidal Ideation / H omicidal Ideation [facility] Suicidal Ideation / Homicidal Ideation Outpatient Attender: JONNATHAN TRACY MDAdmi tter: JONNATHAN TRACY MDConsultant: JONNATHAN TRACY MD 02/27/2021 08:12:00 PM EDT Suicidal Ideation / H omicidal Ideation [facility] Suicidal Ideation / Homicidal Ideation Outpatient Attender: JONNATHAN TRACY MDAdmi tter: JONNATHAN TRACY MDConsultant: JONNATHAN TRACY MD 02/27/2021 08:12:00 PM EDT Suicidal Ideation / H omicidal Ideation [facility] Suicidal Ideation / Homicidal Ideation Outpatient Attender: JONNATHAN TRACY MDAdmi tter: JONNATHAN TRACY MDConsultant: JONNATHAN TRACY MD 02/27/2021 08:12:00 PM EDT Suicidal Ideation / H omicidal Ideation [facility] Suicidal Ideation / Homicidal Ideation Outpatient Attender: Castro ColonAdmitter : JONNATHAN TRACY MDConsultant: JONNATHAN TRACY MD 02/27/2021 08:12:00 PM EDT Suicidal Ideation / H omicidal Ideation [facility] Suicidal Ideation / Homicidal Ideation Outpatient Attender: Castro ColonAdmitter : JONNATHAN TRACY MDConsultant: JONNATHAN TRACY MD 02/27/2021 08:12:00 PM EDT Suicidal Ideation / H omicidal Ideation [facility] Suicidal Ideation / Homicidal Ideation Outpatient Attender: JONNATHAN TRACY MDAdmi tter: JONNATHAN TRACY MDConsultant: JONNATHAN TRACY MD 02/27/2021 08:12:00 PM EDT Suicidal Ideation / H omicidal Ideation [facility] Suicidal Ideation / Homicidal Ideation Outpatient Attender: Rambo Pedroza mitter: JNONATHAN TRACY MDConsultant: JONNATHAN TRACY MD 02/27/2021 08:12:00 PM EDT Suicidal Ideation / H omicidal Ideation [facility] Suicidal Ideation / Homicidal Ideation Outpatient Attender: ANSELMO APONTE NP [facility] 02/12/2021 10:30:00 AM EDT - 02/12/2021 10:30:00 AM EDT [facility] ([facility]) Attender: ANSELMO APONTE NP 02/12/2021 12:00:00 AM EDT [facility] ([facility]) Outpatient Attender: ANSELMO APONTE NP [facility] 02/07/2021 11:30:00 AM EDT - 02/07/2021 11:30:00 AM EDT [facility] ([facility]) Attender: ANSELMO APONTE NP 02/07/2021 12:00:00 AM EDT [facility] ([facility]) Brief Individual Psychotherapy - 30 min Attender: Gina yun [facility] 02/01/2021 02:00:00 AM EDT - 02/01/2021 02:00:00 AM EDT [facility] ([facility]) Attender: Gina Nash 02/01/2021 12:00:00 AM EDT [facility] ([facility]) Injectable Psychotropic Medication Administration (Inj ection Only) Attender: Thalia Carreno [facility] 01/23/2021 10:00:00 AM EDT - 01/23/2021 10:00:00 AM EDT [facility] ([facility]) Outpatient Attender: ANSELMO APONTE NP [facility] 01/23/2021 09:15:00 AM EDT - 01/23/2021 09:15:00 AM EDT [facility] ([facility]) Attender: ASNELMO APONTE NP 01/23/2021 12:00:00 AM EDT [facility] ([facility]) Attender: Thalia Carreno 01/23/2021 12:00:00 AM EDT [facility] ([facility]) Injectable Medication Administration w/ Monitoring & E ducation Attender: Pam Juarez [facility] 01/18/2021 11:00:00 AM EDT - 01/18/2021 11:00:00 AM EDT [facility] ([facility]) Attender: Pam Juarez 01/18/2021 12:00:00 AM EDT [facility] ([facility]) Outpatient Attender: ANSELMO APONTE NP [facility] raquel 01/17/2021 09:00:00 AM EDT - 01/17/2021 09:00:00 AM EDT [facility] ([facility]) Attender: ANSELMO APONTE NP 01/17/2021 12:00:00 AM EDT [facility] ([facility]) Outpatient Attender: ANSELMO APONTE NP [facility] raquel 01/01/2021 02:30:00 AM EST - 01/01/2021 02:30:00 AM EST [facility] ([facility]) Attender: ANSELMO APONTE NP 01/01/2021 12:00:00 AM EST [facility] ([facility]) Injectable Psychotropic Medication Administration (Inj ection Only) Attender: Jossie Marcelino [facility] 12/28/2020 10:30:00 AM EST - 12/28/2020 10:30:00 AM EST [facility] ([facility]) Attender: Jossie Marcelino 12/28/2020 12:00:00 AM EST [facility] ([facility]) Outpatient Attender: Victorino Escobar MD [facility] Mike raquel 12/20/2020 09:30:00 AM EST - 12/20/2020 09:30:00 AM EST [facility]) Attender: Victorino Escobar MD 12/20/2020 12:00:00 AM EST [facility] ([facility]) Outpatient Attender: Victorino Escobar MD [facility] Mike garcía 12/06/2020 12:30:00 PM EST - 12/06/2020 12:30:00 PM EST [facility]) Attender: Victorino Escobar MD 12/06/2020 12:00:00 AM EST [facility] ([facility]) Injectable Medication Administration w/ Monitoring & E ducation Attender: ORGANIZATION NPI ALIASES [facility] 11/15/2020 11:15: 00 AM EST - 11/15/2020 11:15:00 AM EST [facility] ([facility]) Outpatient Attender: Victorino Escobar MD [facility] Mike garcía 11/15/2020 11:00:00 AM EST - 11/15/2020 11:00:00 AM EST [facility] ([facility]) Attender: ORGANIZATION NPI ALIASES * 11/15/2020 12:00:00 AM EST [facility] ([facility]) Attender: Victorino Escobar MD 11/15/2020 12:00:00 AM EST [facility] ([facility]) Injectable Psychotropic Medication Administration (Inj ection Only) Attender: Jossy Mejia [facility] 10/18/2020 10:30:00 AM EST - 10/18/2020 10:30:00 AM EST [facility] ([facility]) Attender: Jossy Mejia 10/18/2020 12:00:00 AM EST [facility] ([facility]) Injectable Psychotropic Medication Administration (Inj ection Only) Attender: Jossy Mejia [facility] 10/15/2020 11:00:00 AM EST - 10/15/2020 11:00:00 AM EST [facility] ([facility]) Attender: Jossy Mejia 10/15/2020 12:00:00 AM EST [facility] ([facility] Injectable Psychotropic Medication Administration (Inj ection Only) Attender: Jossy Mejia [facility] 10/04/2020 10:30:00 AM EST - 10/04/2020 10:30:00 AM EST [facility] ([facility]) Outpatient Attender: KALLI MOLINAURSZULA [facility] 10/04/2020 10:00:00 AM EST - 10/04/2020 10:00:00 AM EST [facility] ([facility]) Attender: Jossy Mejia 10/04/2020 12:00:00 AM EST [facility] ([facility]) Attender: KALLI MOLINAURSZULA 10/04/2020 12:00: 00 AM EST [facility] ([facility]) Outpatient Referrer: [facility] [place] 09/22/2020 0 2:27:00 PM EST schizophrenia, hallucinations, substance abuse [facility] schizophrenia, hallucinations, substance abuse Injectable Psychotropic Medication Administration (Inj ection Only) Attender: Jossy Mejia [facility] 09/12/2020 09:30:00 AM EST - 09/12/2020 09:30:00 AM EST [facility] ([facility]) Outpatient Attender: KALLI MOLINAURSZULA [facility] 09/12/2020 09:00:00 AM EST - 09/12/2020 09:00:00 AM EST [facility] ([facility]) Attender: KALLI VALLEJO 09/12/2020 12:00: 00 AM EST [facility] ([facility]) Attender: Jossy Mejia 09/12/2020 12:00:00 AM EST [facility] ([facility]) Outpatient Attender: KALLI MOLINAURSZULA [facility] ail 08/10/2020 02:00:00 AM EDT - 08/10/2020 02:00:00 AM EDT [facility] ([facility]) Attender: KALLI MOLINAURSZULA 08/10/2020 12:00: 00 AM EDT [facility] ([facility]) Injectable Psychotropic Medication Administration (Inj ection Only) Attender: Jossy Mejia [facility] 07/13/2020 02:00:00 AM EDT - 07/13/2020 02:00:00 AM EDT [facility] ([facility]) Attender: Jossy Mejia 07/13/2020 12:00:00 AM EDT [facility] ([facility]) Outpatient Attender: Pasha Treviño MD 07/12/2020 02:46:50 PM EDT [facility] Outpatient Attender: Pasha Treviño MD 06/21/2020 10:56:00 AM EDT [facility] Functional Status Medications Medication Brand Name Start Date Product Form Dose Route Admi nistrative Instructions Pharmacy Instructions Status Indications Reaction Description Data Source(s) Prazosin 1 MG Oral Capsule prazosin 07/10/2021 12:00:00 AM EDT 1 mg by mouth completed <td ID="Medicat ionRxNorm_4">986019</td><td ID="MedicationMedication_4">prazosin</td><td ID="MedicationRoute_4">by mouth</td><td ID="MedicationRouteConcept_4">J60053</td><td ID="MedicationStartDate_4">07/10/2021</td><td ID="MedicationStopDate_4">08/09/2021</td><td ID="MedicationDosageFrequency_4">at bedtime</td><td ID="MedicationDuration_4">30</td><td ID="MedicationFormulaStrength_4">1 mg</td><td ID="MedicationDosageForm_4">capsule</td><td ID="MedicationDosageFormCode_4"></td><td ID="MedicationDosageDescription_4"></td><td ID="MedicationMedicationId_4">[id number]</td><td ID="MedicationAccount_4">[id number]</td><td ID="MedicationNpid_4">[id number]</td><td ID="MedicationAuthorFirstName_4">Anselmo</td><td ID="MedicationAuthorLastName_4">Amilcar</td><td ID="MedicationTaxonomyCode_4">[id number]</td><td ID="MedicationTaxonomyDesc_4">Nurse Practitioner</td><td ID="MedicationPhoneNumber_4">[phone]</td> [facility] olanzapine 5 MG Oral Tablet [Zyprexa] Zyprexa 05/23/2021 12:00:00 AM EDT 5 mg by mouth completed <td ID="Medica tionRxNorm_2">285758</td><td ID="MedicationMedication_2">Zyprexa</td><td ID="MedicationRoute_2">by mouth</td><td ID="MedicationRouteConcept_2">R78555</td><td ID="MedicationStartDate_2">05/23/2021</td><td ID="MedicationStopDate_2">08/09/2021</td><td ID="MedicationDosageFrequency_2">at bedtime</td><td ID="MedicationDuration_2">30</td><td ID="MedicationFormulaStrength_2">5 mg</td><td ID="MedicationDosageForm_2">tablet</td><td ID="MedicationDosageFormCode_2"></td><td ID="MedicationDosageDescription_2"></td><td ID="MedicationMedicationId_2">[id number]</td><td ID="MedicationAccount_2">[id number]</td><td ID="MedicationNpid_2">[id number]</td><td ID="MedicationAuthorFirstName_2">Anselmo</td><td ID="MedicationAuthorLastName_2">Amilcar</td><td ID="MedicationTaxonomyCode_2">[id number]</td><td ID="MedicationTaxonomyDesc_2">Nurse Practitioner</td><td ID="MedicationPhoneNumber_2">[phone]</td> [facility] ([facility] benztropine mesylate 1 MG Oral Tablet benztropine 05/23/2021 12:00 :00 AM EDT 1 mg by mouth completed <td ID="Me dicationRxNorm_3">722887</td><td ID="MedicationMedication_3">benztropine</td><td ID="MedicationRoute_3">by mouth</td><td ID="MedicationRouteConcept_3">V37005</td><td ID="MedicationStartDate_3">05/23/2021</td><td ID="MedicationStopDate_3">08/09/2021</td><td ID="MedicationDosageFrequency_3">at bedtime</td><td ID="MedicationDuration_3">30</td><td ID="MedicationFormulaStrength_3">1 mg</td><td ID="MedicationDosageForm_3">tablet</td><td ID="MedicationDosageFormCode_3"></td><td ID="MedicationDosageDescription_3"></td><td ID="MedicationMedicationId_3">[id number]</td><td ID="MedicationAccount_3">[id number]</td><td ID="MedicationNpid_3">[id number]</td><td ID="MedicationAuthorFirstName_3">Anselmo</td><td ID="MedicationAuthorLastName_3">Amilcar</td><td ID="MedicationTaxonomyCode_3">[id number]</td><td ID="MedicationTaxonomyDesc_3">Nurse Practitioner</td><td ID="MedicationPhoneNumber_3">[phone]</td> [facility] ([facility]) 1.5 ML paliperidone palmitate 156 MG/ML Prefilled Syri nge [Invega] Invega Sustenna 04/16/2021 12:00:00 AM EDT 234 mg/1.5 compl eted <td ID="MedicationRxNorm_1">292414</td><td ID="MedicationMedication_1">Invega Sustenna</td><td ID="MedicationRoute_1"></td><td ID="MedicationRouteConcept_1"></td><td ID="MedicationStartDate_1">04/16/2021</td><td ID="MedicationStopDate_1"></td><td ID="MedicationDosageFrequency_1"></td><td ID="MedicationDuration_1"></td><td ID="MedicationFormulaStrength_1">234 mg/1.5 mL</td><td ID="MedicationDosageForm_1">syringe</td><td ID="MedicationDosageFormCode_1"></td><td ID="MedicationDosageDescription_1"> </td><td ID="MedicationMedicationId_1">[id number]</td><td ID="MedicationAccount_1">[id number]</td><td ID="MedicationNpid_1">[id number]</td><td ID="MedicationAuthorFirstName_1">Anselmo</td><td ID="MedicationAuthorLastName_1">Amilcar</td><td ID="MedicationTaxonomyCode_1">[id number]</td><td ID="MedicationTaxonomyDesc_1">Nurse Practitioner</td><td ID="MedicationPhoneNumber_1">[phone]</td> [facility] 2.625 ML paliperidone palmitate 312 MG/ML Prefilled Sy ringe [Invega] Invega Trinza 04/03/2021 12:00:00 AM EDT 819 mg/2.625 compl eted <td ID="MedicationRxNorm_3">[id number]</td><td ID="MedicationMedication_3">Invega Trinza</td><td ID="MedicationRoute_3">intramuscularly</td><td ID="MedicationRouteConcept_3"></td><td ID="MedicationStartDate_3">04/03/2021</td><td ID="MedicationStopDate_3">07/02/2021</td><td ID="MedicationDosageFrequency_3">every three months</td><td ID="MedicationDuration_3">90</td><td ID="MedicationFormulaStrength_3">819 mg/2.625 mL</td><td ID="MedicationDosageForm_3">syringe</td><td ID="MedicationDosageFormCode_3"></td><td ID="MedicationDosageDescription_3"></td><td ID="MedicationMedicationId_3">[id number]</td><td ID="MedicationAccount_3">[id number]</td><td ID="MedicationNpid_3">[id number]</td><td ID="MedicationAuthorFirstName_3">Anselmo</td><td ID="MedicationAuthorLastName_3">Amilcar</td><td ID="MedicationTaxonomyCode_3">[id number]</td><td ID="MedicationTaxonomyDesc_3"> Nurse Practitioner</td><td ID="MedicationPhoneNumber_3">[phone]</td> [facility] ([facility]) 2.625 ML paliperidone palmitate 312 MG/ML Prefilled Sy ringe [Invega] Ml Roth 04/03/2021 12:00:00 AM EDT 819 mg/2.625 compl eted <td ID="MedicationRxNorm_4">[id number]</td><td ID="MedicationMedication_4">Invega Trinza</td><td ID="MedicationRoute_4">intramuscularly</td><td ID="MedicationRouteConcept_4"></td><td ID="MedicationStartDate_4">04/03/2021</td><td ID="MedicationStopDate_4">07/02/2021</td><td ID="MedicationDosageFrequency_4">every three months</td><td ID="MedicationDuration_4">90</td><td ID="MedicationFormulaStrength_4">819 mg/2.625 mL</td><td ID="MedicationDosageForm_4">syringe</td><td ID="MedicationDosageFormCode_4"></td><td ID="MedicationDosageDescription_4"></td><td ID="MedicationMedicationId_4">[id number]</td><td ID="MedicationAccount_4">[id number]</td><td ID="MedicationNpid_4">[id number]</td><td ID="MedicationAuthorFirstName_4">Anselmo</td><td ID="MedicationAuthorLastName_4">Amilcar</td><td ID="MedicationTaxonomyCode_4">[id number]</td><td ID="MedicationTaxonomyDesc_4"> Nurse Practitioner</td><td ID="MedicationPhoneNumber_4">[phone]</td> [facility] ([facility]) haloperidol decanoate haloperidol decanoate 04/03/2021 12:00:00 AM EDT 100 mg/mL completed <td ID="Me dicationRxNorm_2">[id number]</td><td ID="MedicationMedication_2">haloperidol decanoate</td><td ID="MedicationRoute_2">intramuscularly</td><td ID="MedicationRouteConcept_2"> </td><td ID="MedicationStartDate_2">04/03/2021</td><td ID="MedicationStopDate_2">04/03/2021</td><td ID="MedicationDosageFrequency_2">every four weeks</td><td ID="MedicationDuration_2">28</td><td ID="MedicationFormulaStrength_2">100 mg/mL</td><td ID="MedicationDosageForm_2">solution</td><td ID="MedicationDosageFormCode_2"></td><td ID="MedicationDosageDescription_2"></td><td ID="MedicationMedicationId_2">[id number]</td><td ID="MedicationAccount_2">[id number]</td><td ID="MedicationNpid_2">[id number]</td><td ID="MedicationAuthorFirstName_2">Anselmo</td><td ID="MedicationAuthorLastName_2">Amilcar</td><td ID="MedicationTaxonomyCode_2">[id number]</td><td ID="MedicationTaxonomyDesc_2"> Nurse Practitioner</td><td ID="MedicationPhoneNumber_2">[phone]</td> [facility] ([facility]) benztropine mesylate 1 MG Oral Tablet benztropine 04/03/2021 12:00 :00 AM EDT 1 mg by mouth completed <td ID="Me dicationRxNorm_2">196605</td><td ID="MedicationMedication_2">benztropine</td><td ID="MedicationRoute_2">by mouth</td><td ID="MedicationRouteConcept_2">W40791</td><td ID="MedicationStartDate_2">04/03/2021</td><td ID="MedicationStopDate_2">05/03/2021</td><td ID="MedicationDosageFrequency_2">at bedtime</td><td ID="MedicationDuration_2">30</td><td ID="MedicationFormulaStrength_2">1 mg</td><td ID="MedicationDosageForm_2">tablet</td><td ID="MedicationDosageFormCode_2"></td><td ID="MedicationDosageDescription_2"></td><td ID="MedicationMedicationId_2">[id number]</td><td ID="MedicationAccount_2">[id number]</td><td ID="MedicationNpid_2">[id number]</td><td ID="MedicationAuthorFirstName_2">Anselmo</td><td ID="MedicationAuthorLastName_2">Amilcar</td><td ID="MedicationTaxonomyCode_2">[id number]</td><td ID="MedicationTaxonomyDesc_2">Nurse Practitioner</td><td ID="MedicationPhoneNumber_2">[phone]</td> [facility] ([facility] olanzapine 5 MG Oral Tablet [Zyprexa] Zyprexa 04/03/2021 12:00:00 AM EDT 5 mg by mouth completed <td ID="Medica tionRxNorm_1">053250</td><td ID="MedicationMedication_1">Zyprexa</td><td ID="MedicationRoute_1">by mouth</td><td ID="MedicationRouteConcept_1">Z51564</td><td ID="MedicationStartDate_1">04/03/2021</td><td ID="MedicationStopDate_1">05/03/2021</td><td ID="MedicationDosageFrequency_1">at bedtime</td><td ID="MedicationDuration_1">30</td><td ID="MedicationFormulaStrength_1">5 mg</td><td ID="MedicationDosageForm_1">tablet</td><td ID="MedicationDosageFormCode_1"></td><td ID="MedicationDosageDescription_1"></td><td ID="MedicationMedicationId_1">[id number]</td><td ID="MedicationAccount_1">[id number]</td><td ID="MedicationNpid_1">[id number]</td><td ID="MedicationAuthorFirstName_1">Anselmo</td><td ID="MedicationAuthorLastName_1">Amilcar</td><td ID="MedicationTaxonomyCode_1">[id number]</td><td ID="MedicationTaxonomyDesc_1">Nurse Practitioner</td><td ID="MedicationPhoneNumber_1">[phone]</td> [facility] ([facility]) 2.625 ML paliperidone palmitate 312 MG/ML Prefilled Sy ringe [Invega] Invega Trinza 04/03/2021 12:00:00 AM EDT 819 mg/2.625 compl eted <td ID="MedicationRxNorm_5">[id number]</td><td ID="MedicationMedication_5">Invega Trinza</td><td ID="MedicationRoute_5">intramuscularly</td><td ID="MedicationRouteConcept_5"></td><td ID="MedicationStartDate_5">04/03/2021</td><td ID="MedicationStopDate_5">07/02/2021</td><td ID="MedicationDosageFrequency_5">every three months</td><td ID="MedicationDuration_5">90</td><td ID="MedicationFormulaStrength_5">819 mg/2.625 mL</td><td ID="MedicationDosageForm_5">syringe</td><td ID="MedicationDosageFormCode_5"></td><td ID="MedicationDosageDescription_5"></td><td ID="MedicationMedicationId_5">[id number]</td><td ID="MedicationAccount_5">[id number]</td><td ID="MedicationNpid_5">[id number]</td><td ID="MedicationAuthorFirstName_5">Anselmo</td><td ID="MedicationAuthorLastName_5">Amilcar</td><td ID="MedicationTaxonomyCode_5">[id number]</td><td ID="MedicationTaxonomyDesc_5"> Nurse Practitioner</td><td ID="MedicationPhoneNumber_5">[phone]</td> [facility] ([facility]) benztropine mesylate 1 MG Oral Tablet benztropine 04/03/2021 12:00 :00 AM EDT 1 mg by mouth completed <td ID="Me dicationRxNorm_4">733722</td><td ID="MedicationMedication_4">benztropine</td><td ID="MedicationRoute_4">by mouth</td><td ID="MedicationRouteConcept_4">G66773</td><td ID="MedicationStartDate_4">04/03/2021</td><td ID="MedicationStopDate_4">05/03/2021</td><td ID="MedicationDosageFrequency_4">at bedtime</td><td ID="MedicationDuration_4">30</td><td ID="MedicationFormulaStrength_4">1 mg</td><td ID="MedicationDosageForm_4">tablet</td><td ID="MedicationDosageFormCode_4"></td><td ID="MedicationDosageDescription_4"></td><td ID="MedicationMedicationId_4">[id number]</td><td ID="MedicationAccount_4">[id number]</td><td ID="MedicationNpid_4">[id number]</td><td ID="MedicationAuthorFirstName_4">Anselmo</td><td ID="MedicationAuthorLastName_4">Amilcar</td><td ID="MedicationTaxonomyCode_4">[id number]</td><td ID="MedicationTaxonomyDesc_4">Nurse Practitioner</td><td ID="MedicationPhoneNumber_4">[phone]</td> [facility] ([facility]) olanzapine 5 MG Oral Tablet [Zyprexa] Zyprexa 04/03/2021 12:00:00 AM EDT 5 mg by mouth completed <td ID="Medica tionRxNorm_3">859976</td><td ID="MedicationMedication_3">Zyprexa</td><td ID="MedicationRoute_3">by mouth</td><td ID="MedicationRouteConcept_3">E05336</td><td ID="MedicationStartDate_3">04/03/2021</td><td ID="MedicationStopDate_3">05/03/2021</td><td ID="MedicationDosageFrequency_3">at bedtime</td><td ID="MedicationDuration_3">30</td><td ID="MedicationFormulaStrength_3">5 mg</td><td ID="MedicationDosageForm_3">tablet</td><td ID="MedicationDosageFormCode_3"></td><td ID="MedicationDosageDescription_3"></td><td ID="MedicationMedicationId_3">[id number]</td><td ID="MedicationAccount_3">[id number]</td><td ID="MedicationNpid_3">[id number]</td><td ID="MedicationAuthorFirstName_3">Anselmo</td><td ID="MedicationAuthorLastName_3">Amilcar</td><td ID="MedicationTaxonomyCode_3">[id number]</td><td ID="MedicationTaxonomyDesc_3">Nurse Practitioner</td><td ID="MedicationPhoneNumber_3">[phone]</td> [facility] ([facility]) 2.625 ML paliperidone palmitate 312 MG/ML Prefilled Sy ringe [Invega] Invega Trinza 04/03/2021 12:00:00 AM EDT 819 mg/2.625 compl eted <td ID="MedicationRxNorm_2">[id number]</td><td ID="MedicationMedication_2">Invega Trinza</td><td ID="MedicationRoute_2">intramuscularly</td><td ID="MedicationRouteConcept_2"></td><td ID="MedicationStartDate_2">04/03/2021</td><td ID="MedicationStopDate_2">07/02/2021</td><td ID="MedicationDosageFrequency_2">every three months</td><td ID="MedicationDuration_2">90</td><td ID="MedicationFormulaStrength_2">819 mg/2.625 mL</td><td ID="MedicationDosageForm_2">syringe</td><td ID="MedicationDosageFormCode_2"></td><td ID="MedicationDosageDescription_2"></td><td ID="MedicationMedicationId_2">[id number]</td><td ID="MedicationAccount_2">[id number]</td><td ID="MedicationNpid_2">[id number]</td><td ID="MedicationAuthorFirstName_2">Anselmo</td><td ID="MedicationAuthorLastName_2">Amilcar</td><td ID="MedicationTaxonomyCode_2">[id number]</td><td ID="MedicationTaxonomyDesc_2"> Nurse Practitioner</td><td ID="MedicationPhoneNumber_2">[phone]</td> [facility] ([facility]) haloperidol decanoate haloperidol decanoate 10/04/2020 12:00:00 AM EST 100 mg/mL completed <td ID="Me dicationRxNorm_1">[id number]</td><td ID="MedicationMedication_1">haloperidol decanoate</td><td ID="MedicationRoute_1">intramuscularly</td><td ID="MedicationRouteConcept_1"> </td><td ID="MedicationStartDate_1">10/04/2020</td><td ID="MedicationStopDate_1">04/03/2021</td><td ID="MedicationDosageFrequency_1">as directed</td><td ID="MedicationDuration_1">21</td><td ID="MedicationFormulaStrength_1">100 mg/mL</td><td ID="MedicationDosageForm_1">solution</td><td ID="MedicationDosageFormCode_1"></td><td ID="MedicationDosageDescription_1"></td><td ID="MedicationMedicationId_1">[id number]</td><td ID="MedicationAccount_1">[id number]</td><td ID="MedicationNpid_1">[id number]</td><td ID="MedicationAuthorFirstName_1">Victorino</td><td ID="MedicationAuthorLastName_1">Escobar</td><td ID="MedicationTaxonomyCode_1">[id number]</td><td ID="MedicationTaxonomyDesc_1"> Psychiatry</td><td ID="MedicationPhoneNumber_1">[phone]</td> [facility] ([facility]) 100 mg/mL 10/02/2020 12:00:00 AM EST [...] 50 mg by mouth completed <td ID="Medic ationRxNorm_5">047172</td><td ID="MedicationMedication_5">trazodone</td><td ID="MedicationRoute_5">by mouth</td><td ID="MedicationRouteConcept_5">S39893</td><td ID="MedicationStartDate_5">09/12/2020</td><td ID="MedicationStopDate_5">10/12/2020</td><td ID="MedicationDosageFrequency_5">every night</td><td ID="MedicationDuration_5">30</td><td ID="MedicationFormulaStrength_5">50 mg</td><td ID="MedicationDosageForm_5">tablet</td><td ID="MedicationDosageFormCode_5"></td><td ID="MedicationDosageDescription_5"></td><td ID="MedicationMedicationId_5">[id number]</td><td ID="MedicationAccount_5">[id number]</td><td ID="MedicationNpid_5">[id number]</td><td ID="MedicationAuthorFirstName_5">Kalli</td><td ID="MedicationAuthorLastName_5">Egorho</td><td ID="MedicationTaxonomyCode_5">[id number]</td><td ID="MedicationTaxonomyDesc_5">Nurse Practitioner</td><td ID="MedicationPhoneNumber_5">[phone]</td> [facility] ([facility]) Trazodone Hydrochloride 50 MG Oral Tablet trazodone 2019 12:00:00 AM EST 50 mg by mouth completed <td ID="Medic ationRxNorm_1">601746</td><td ID="MedicationMedication_1">trazodone</td><td ID="MedicationRoute_1">by mouth</td><td ID="MedicationRouteConcept_1">N18427</td><td ID="MedicationStartDate_1">09/12/2020</td><td ID="MedicationStopDate_1">10/12/2020</td><td ID="MedicationDosageFrequency_1">every night</td><td ID="MedicationDuration_1">30</td><td ID="MedicationFormulaStrength_1">50 mg</td><td ID="MedicationDosageForm_1">tablet</td><td ID="MedicationDosageFormCode_1"></td><td ID="MedicationDosageDescription_1"></td><td ID="MedicationMedicationId_1">[id number]</td><td ID="MedicationAccount_1">[id number]</td><td ID="MedicationNpid_1">[id number]</td><td ID="MedicationAuthorFirstName_1">Kalli</td><td ID="MedicationAuthorLastName_1">Egorho</td><td ID="MedicationTaxonomyCode_1">[id number]</td><td ID="MedicationTaxonomyDesc_1">Nurse Practitioner</td><td ID="MedicationPhoneNumber_1">[phone]</td> [facility] ([facility]) Haldol Decanoate Haldol Decanoate 09/12/2020 12:00:00 AM EST 100 mg/mL completed <td ID="MedicationRx Norm_4">1058612</td><td ID="MedicationMedication_4">Haldol Decanoate</td><td ID="MedicationRoute_4">intramuscularly</td><td ID="MedicationRouteConcept_4"></td><td ID="MedicationStartDate_4">09/12/2020</td><td ID="MedicationStopDate_4">09/15/2020</td><td ID="MedicationDosageFrequency_4">as directed</td><td ID="MedicationDuration_4">1</td><td ID="MedicationFormulaStrength_4">100 mg/mL</td><td ID="MedicationDosageForm_4">solution</td><td ID="MedicationDosageFormCode_4"></td><td ID="MedicationDosageDescription_4"></td><td ID="MedicationMedicationId_4">[id number]</td><td ID="MedicationAccount_4">[id number]</td><td ID="MedicationNpid_4">[id number]</td><td ID="MedicationAuthorFirstName_4">Kalli</td><td ID="MedicationAuthorLastName_4">Egorho</td><td ID="MedicationTaxonomyCode_4">[id number]</td><td ID="MedicationTaxonomyDesc_4">Nurse Practitioner</td><td ID="MedicationPhoneNumber_4">[phone]</td> [facility] ([facility]) quetiapine 300 MG Oral Tablet quetiapine 01/06/2020 12:00:00 AM EST 300 mg completed <td ID="Medicat ionRxNorm_4">967852</td><td ID="MedicationMedication_4">quetiapine</td><td ID="MedicationRoute_4"></td><td ID="MedicationRouteConcept_4"></td><td ID="MedicationStartDate_4">01/06/2020</td><td ID="MedicationStopDate_4">01/05/2021</td><td ID="MedicationDosageFrequency_4">at bedtime</td><td ID="MedicationDuration_4">30</td><td ID="MedicationFormulaStrength_4">300 mg</td><td ID="MedicationDosageForm_4">tablet</td><td ID="MedicationDosageFormCode_4"></td><td ID="MedicationDosageDescription_4"></td><td ID="MedicationMedicationId_4">[id number]</td><td ID="MedicationAccount_4">[id number]</td><td ID="MedicationNpid_4">[id number]</td><td ID="MedicationAuthorFirstName_4">Dane</td><td ID="MedicationAuthorLastName_4">[place]</td><td ID="MedicationTaxonomyCode_4">[id number]</td><td ID="MedicationTaxonomyDesc_4">Psychiatric/Mental Health</td><td ID="MedicationPhoneNumber_4">[phone]</td> [facility] ([facility]) quetiapine 300 MG Oral Tablet quetiapine 01/06/2020 12:00:00 AM EST 300 mg completed <td ID="Medicat ionRxNorm_1">392556</td><td ID="MedicationMedication_1">quetiapine</td><td ID="MedicationRoute_1"></td><td ID="MedicationRouteConcept_1"></td><td ID="MedicationStartDate_1">01/06/2020</td><td ID="MedicationStopDate_1">01/05/2021</td><td ID="MedicationDosageFrequency_1">at bedtime</td><td ID="MedicationDuration_1">30</td><td ID="MedicationFormulaStrength_1">300 mg</td><td ID="MedicationDosageForm_1">tablet</td><td ID="MedicationDosageFormCode_1"></td><td ID="MedicationDosageDescription_1"></td><td ID="MedicationMedicationId_1">[id number]</td><td ID="MedicationAccount_1">[id number]</td><td ID="MedicationNpid_1">[id number]</td><td ID="MedicationAuthorFirstName_1">Dane</td><td ID="MedicationAuthorLastName_1">Loida</td><td ID="MedicationTaxonomyCode_1">[id number]</td><td ID="MedicationTaxonomyDesc_1">Psychiatric/Mental Health</td><td ID="MedicationPhoneNumber_1">[phone]</td> [facility] ([facility]) quetiapine 300 MG Oral Tablet quetiapine 01/06/2020 12:00:00 AM EST 300 mg completed <td ID="Medicat ionRxNorm_5">417521</td><td ID="MedicationMedication_5">quetiapine</td><td ID="MedicationRoute_5"></td><td ID="MedicationRouteConcept_5"></td><td ID="MedicationStartDate_5">01/06/2020</td><td ID="MedicationStopDate_5">01/05/2021</td><td ID="MedicationDosageFrequency_5">at bedtime</td><td ID="MedicationDuration_5">30</td><td ID="MedicationFormulaStrength_5">300 mg</td><td ID="MedicationDosageForm_5">tablet</td><td ID="MedicationDosageFormCode_5"></td><td ID="MedicationDosageDescription_5"></td><td ID="MedicationMedicationId_5">[id number]</td><td ID="MedicationAccount_5">[id number]</td><td ID="MedicationNpid_5">[id number]</td><td ID="MedicationAuthorFirstName_5">Dane</td><td ID="MedicationAuthorLastName_5">Loida</td><td ID="MedicationTaxonomyCode_5">[id number]</td><td ID="MedicationTaxonomyDesc_5">Psychiatric/Mental Health</td><td ID="MedicationPhoneNumber_5">[phone]</td> [facility] ([facility]) [facility]12/20/2019 12:00:00 AM EST mg/3.9 completed <td ID="MedicationRxNorm_3">4126430</td><td ID="MedicationMedication_3">Ari</td><td ID="MedicationRoute_3">intramuscularly</td><td ID="MedicationRouteConcept_3"></td><td ID="MedicationStartDate_3">12/20/2019</td><td ID="MedicationStopDate_3">09/12/2020</td><td ID="MedicationDosageFrequency_3"></td><td ID="MedicationDuration_3"></td><td ID="MedicationFormulaStrength_3">1,064 mg/3.9 mL</td><td ID="MedicationDosageForm_3">suspension,extended rel syring</td><td ID="MedicationDosageFormCode_3"></td><td ID="MedicationDosageDescription_3">as directed</td><td ID="MedicationMedicationId_3">[id number]</td><td ID="MedicationAccount_3">[id number]</td><td ID="MedicationNpid_3">[id number]</td><td ID="MedicationAuthorFirstName_3">Dane</td><td ID="MedicationAuthorLastName_3">Loida</td><td ID="MedicationTaxonomyCode_3">[id number]</td><td ID="MedicationTaxonomyDesc_3"> Psychiatric/Mental Health</td><td ID="MedicationPhoneNumber_3">[phone]</td> [facility] ([facility]) Trazodone Hydrochloride 50 MG Oral Tablet trazodone 2018 12:00:00 AM EDT 50 mg by mouth completed <td ID="Medic ationRxNorm_2">366445</td><td ID="MedicationMedication_2">trazodone</td><td ID="MedicationRoute_2">by mouth</td><td ID="MedicationRouteConcept_2">B58143</td><td ID="MedicationStartDate_2">06/10/2019</td><td ID="MedicationStopDate_2">09/12/2020</td><td ID="MedicationDosageFrequency_2">at bedtime</td><td ID="MedicationDuration_2"></td><td ID="MedicationFormulaStrength_2">50 mg</td><td ID="MedicationDosageForm_2">tablet</td><td ID="MedicationDosageFormCode_2"></td><td ID="MedicationDosageDescription_2"></td><td ID="MedicationMedicationId_2">[id number]</td><td ID="MedicationAccount_2">[id number]</td><td ID="MedicationNpid_2">[id number]</td><td ID="MedicationAuthorFirstName_2">Dane</td><td ID="MedicationAuthorLastName_2">[place]</td><td ID="MedicationTaxonomyCode_2">[id number]</td><td ID="MedicationTaxonomyDesc_2">Psychiatric/Mental Health</td><td ID="MedicationPhoneNumber_2">[phone]</td> [facility] ([facility]) Amantadine Hydrochloride 100 MG Oral Capsule amantadine HCl 07/30/2017 12:00:00 AM EDT 100 mg by mouth completed <td ID="MedicationRxNorm_1">387574</td><td ID="MedicationMedication_1">amantadine HCl</td><td ID="MedicationRoute_1">by mouth</td><td ID="MedicationRouteConcept_1">X47126</td><td ID="MedicationStartDate_1">07/30/2017</td><td ID="MedicationStopDate_1">09/12/2020</td><td ID="MedicationDosageFrequency_1">every morning</td><td ID="MedicationDuration_1"></td><td ID="MedicationFormulaStrength_1">100 mg</td><td ID="MedicationDosageForm_1">capsule</td><td ID="MedicationDosageFormCode_1"></td><td ID="MedicationDosageDescription_1"></td><td ID="MedicationMedicationId_1">[id number]</td><td ID="MedicationAccount_1">[id number]</td><td ID="MedicationNpid_1">[id number]</td><td ID="MedicationAuthorFirstName_1">Dane</td><td ID="MedicationAuthorLastName_1">Loida</td><td ID="MedicationTaxonomyCode_1">[id number]</td><td ID="MedicationTaxonomyDesc_1">Psychiatric/Mental Health</td><td ID="MedicationPhoneNumber_1">[phone]</td> [facility] ([facility]) Insurance Providers Payer name Policy type / Coverage type Policy ID Covered libertarian ID Covered libertarian's relationship to shafer Policy Shafer Plan Information Medicaid S [id number] S [id number] Managed Care - Community Plan [facility] [employer] P [id number] S [id number] Medicaid S [id number] S [id number] [facility] I [id number] Self [id number] [facility] I [id number] Self [id number] [facility] I [id number] Self [id number] Managed Care - [facility] Community Plan P [id number] S [id number] Medicaid S [id number] S [id number] Managed Care - UHC Community Plan P [id number] S [id number] UN[employer] COMMUNITY PLAN MCDO [id number] SP [id number] [facility] MAN CRE [id number] SP [id number] [facility] [id number] SP [id number] SELF PAY [facility] OFFICE OF MENTAL HEALTH UNAVAILABLE S UNAVAILABLE MEDICAID [id number] S [id number] [facility] OFFICE OF MENTAL HEALTH [id number] S [id number] [facility] [id number] SP [id number] [facility] OFFICE OF MENTAL HEALTH [id number] S [id number] [employer] COMMUNITY PLAN MCDO [id number] SP [id number] SELF PAY ONLY [id number] SP [id number] [facility] [id number] SP [id number] SELF PAY SP [facility]) O [id number] S [id number] [facility] [id number] SP [id number] Self Pay P UNAVAILABLE S UNAVAILA BLE [facility]) O [id number] S [id number] [facility] [id number] SP [id number] MEDICAID [id number] SP [id number] [employer] COMMUNITY PLAN MCDO [id number] SP [id number] MEDICAID [id number] SP [id number] Problems, Conditions, and Diagnoses Code Display Name Description Problem Type Effective Dates Data Source(s) F11.10 Opioid abuse, uncomplicated F11.10 - Opioid abus e, uncomplicated Diagnosis 02/27/2021 08:12:00 PM EDT [facility] 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 F25.9 Schizoaffective disorder, unspecified F2 5.9 - Schizoaffective disorder, unspecified Diagnosis 02/27/2021 08:12:00 PM EDT [facility] Z13.9 Encounter for screening, unspecified Z13 .9 - Encounter for screening, unspecified Diagnosis 02/27/2021 08:12:00 PM EDT [facility] schizophrenia, hallucinations, substance abuse schizophrenia, hallucinations, substance abuse Diagnosis 09/22/2020 02:27:00 PM [facility] F15.20 Other stimulant dependence, uncomplicate d Stimulant Use Disorder, Moderate: Amphetamine-type substance Condition 07/29/2021 12:00:00 AM EDT [facility] ([facility]) F10.20 Alcohol dependence, uncomplicated Alcohol Use Disorder , Severe Condition 07/29/2021 12:00:00 AM EDT [facility] ([facility]) F17.200 Nicotine dependence, unspecified, uncomp licated Tobacco Use Disorder, Moderate Condition 07/29/2021 12:00:00 AM EDT [facility] ([facility]) F12.20 Cannabis dependence, uncomplicated Cannabis Use Disorder, Moderate Condition 07/29/2021 12:00:00 AM EDT [facility] ([facility]) F20.9 Schizophrenia, unspecified Schizophrenia Condition 07/29/2021 12:00:00 AM EDT [facility] ([facility]) Surgeries/Procedures Procedure Description Date Indications Data Source(s) Comprehensive medication services, per 15 minutes 07/29/2021 12:00:00 AM EDT - 07/29/2021 12:00:00 AM EDT [facility] ([facility]) Comprehensive medication services, per 15 minutes 07/29/2021 12:00:00 AM EDT [facility] ([facility]) Comprehensive medication services, per 15 minutes 06/24/2021 12:00:00 AM EDT - 06/24/2021 12:00:00 AM EDT [facility] ([facility]) Comprehensive medication services, per 15 minutes 06/24/2021 12:00:00 AM EDT [facility] ([facility]) THERAPEUTIC PROPHYLACTIC/DX INJECTION SUBQ/IM 05/27/2021 12:00:00 AM EDT - 05/27/2021 12:00:00 AM EDT [facility] ([facility]) THERAPEUTIC PROPHYLACTIC/DX INJECTION SUBQ/IM 05/27/20 12:00:00 AM EDT [facility] ([facility]) Brief Individual Psychotherapy - 30 min 05/13/2021 12:00:00 AM EDT - 05/13/2021 12:00:00 AM EDT [facility] ([facility]) Brief Individual Psychotherapy - 30 min 05/13/2021 12: 00:00 AM EDT [facility] ([facility]) Comprehensive medication services, per 15 minutes 04/04/2021 12:00:00 AM EDT - 04/04/2021 12:00:00 AM EDT [facility] ([facility]) Comprehensive medication services, per 15 minutes 04/03/2021 12:00:00 AM EDT [facility] ([facility]) OFFICE OUTPATIENT VISIT 15 MINUTES 04/03 12:00:00 AM EDT - 04/03/2021 12:00:00 AM EDT [facility] ([facility]) Psychotherapy ADD ON - 30 Minutes 04/03/2021 12:00:00 AM EDT [facility] ([facility]) OFFICE OUTPATIENT VISIT 15 MINUTES 04/03/2021 12:00:00 AM EDT [facility] ([facility]) OFFICE OUTPATIENT VISIT 15 MINUTES 03/27 12:00:00 AM EDT - 03/27/2021 12:00:00 AM EDT [facility] ([facility]) OFFICE OUTPATIENT VISIT 15 MINUTES 03/27/2021 12:00:00 AM EDT [facility] ([facility]) OFFICE OUTPATIENT VISIT 15 MINUTES 03/19 12:00:00 AM EDT - 03/19/2021 12:00:00 AM EDT [facility] ([facility]) OFFICE OUTPATIENT VISIT 15 MINUTES 03/19/2021 12:00:00 AM EDT [facility] ([facility]) OFFICE OUTPATIENT VISIT 15 MINUTES 02/12 12:00:00 AM EDT - 02/12/2021 12:00:00 AM EDT [facility] ([facility]) OFFICE OUTPATIENT VISIT 15 MINUTES 02/12/2021 12:00:00 AM EDT [facility] ([facility]) OFFICE OUTPATIENT VISIT 15 MINUTES 02/07 12:00:00 AM EDT - 02/07/2021 12:00:00 AM EDT [facility] ([facility]) OFFICE OUTPATIENT VISIT 15 MINUTES 02/07/2021 12:00:00 AM EDT [facility] ([facility]) Brief Individual Psychotherapy - 30 min 02/01/2021 12:00:00 AM EDT - 02/01/2021 12:00:00 AM EDT [facility] ([facility]) Brief Individual Psychotherapy - 30 min 02/01/2021 12: 00:00 AM EDT [facility] ([facility]) OFFICE OUTPATIENT VISIT 15 MINUTES 01/23 12:00:00 AM EDT - 01/23/2021 12:00:00 AM EDT [facility] ([facility]) OFFICE OUTPATIENT VISIT 15 MINUTES 01/23/2021 12:00:00 AM EDT [facility] ([facility]) THERAPEUTIC PROPHYLACTIC/DX INJECTION SUBQ/IM 01/23/2021 12:00:00 AM EDT - 01/23/2021 12:00:00 AM EDT [facility] ([facility]) THERAPEUTIC PROPHYLACTIC/DX INJECTION SUBQ/IM 01/24/20 12:00:00 AM EDT [facility] ([facility]) Comprehensive medication services, per 15 minutes 01/18/2021 12:00:00 AM EDT - 01/18/2021 12:00:00 AM EDT [facility] ([facility]) Comprehensive medication services, per 15 minutes 01/18/2021 12:00:00 AM EDT [facility] ([facility]) OFFICE OUTPATIENT VISIT 15 MINUTES 01/17 12:00:00 AM EDT - 01/17/2021 12:00:00 AM EDT [facility] ([facility]) OFFICE OUTPATIENT VISIT 15 MINUTES 01/17/2021 12:00:00 AM EDT [facility] ([facility]) MHC Telemed E/M Lvl 3--Est pt 01/01/2021 12:00:00 AM EST - 01/01/2021 12:00:00 AM EST [facility] ([facility]) MHC Telemed E/M Lvl 3--Est pt 01/01/2021 12:00:[address] [facility] ([facility]) THERAPEUTIC PROPHYLACTIC/DX INJECTION SUBQ/IM 12/28/2020 12:00:00 AM EST - 12/28/2020 12:00:00 AM EST [facility] ([facility]) THERAPEUTIC PROPHYLACTIC/DX INJECTION SUBQ/IM 12/28/19 12:00:00 AM EST [facility] ([facility]) MHC Telemed E/M Lvl 3--Est pt 12/20/2020 12:00:00 AM EST - 12/20/2020 12:00:00 AM EST [facility] ([facility]) MHC Telemed E/M Lvl 3--Est pt 12/20/2020 12:00:[address] [facility] ([facility]) MHC Telemed E/M Lvl 3--Est pt 12/06/2020 12:00:00 AM EST - 12/06/2020 12:00:00 AM EST [facility] ([facility]) MHC Telemed E/M Lvl 3--Est pt 12/06/2020 12:00:[address] [facility] ([facility]) Comprehensive medication services, per 15 minutes 11/15/2020 12:00:00 AM EST - 11/15/2020 12:00:00 AM EST [facility] ([facility]) Comprehensive medication services, per 15 minutes 11/15/2020 12:00:00 AM EST [facility] ([facility]) OFFICE OUTPATIENT VISIT 15 MINUTES 11/15 12:00:00 AM EST - 11/15/2020 12:00:00 AM EST [facility] ([facility]) OFFICE OUTPATIENT VISIT 15 MINUTES 11/15/2020 12:00:00 AM EST [facility] ([facility]) THERAPEUTIC PROPHYLACTIC/DX INJECTION SUBQ/IM 10/18/2020 12:00:00 AM EST - 10/18/2020 12:00:00 AM EST [facility] ([facility]) THERAPEUTIC PROPHYLACTIC/DX INJECTION SUBQ/IM 10/18/20 20 12:00:00 AM EST [facility] ([facility]) THERAPEUTIC PROPHYLACTIC/DX INJECTION SUBQ/IM 10/15/2020 12:00:00 AM EST - 10/15/2020 12:00:00 AM EST [facility] ([facility]) THERAPEUTIC PROPHYLACTIC/DX INJECTION SUBQ/IM 10/15/20 20 12:00:00 AM EST [facility] ([facility]) THERAPEUTIC PROPHYLACTIC/DX INJECTION SUBQ/IM 10/04/2020 12:00:00 AM EST - 10/04/2020 12:00:00 AM EST [facility] ([facility]) THERAPEUTIC PROPHYLACTIC/DX INJECTION SUBQ/IM 10/04/20 20 12:00:00 AM EST [facility] ([facility]) OFFICE OUTPATIENT VISIT 15 MINUTES 10/04 12:00:00 AM EST - 10/04/2020 12:00:00 AM EST [facility] ([facility]) OFFICE OUTPATIENT VISIT 15 MINUTES 10/04/2020 12:00:00 AM EST [facility] ([facility]) OFFICE OUTPATIENT VISIT 15 MINUTES 09/12 12:00:00 AM EST - 09/12/2020 12:00:00 AM EST [facility] ([facility]) OFFICE OUTPATIENT VISIT 15 MINUTES 09/12/2020 12:00:00 AM EST [facility] ([facility]) THERAPEUTIC PROPHYLACTIC/DX INJECTION SUBQ/IM 09/12/2020 12:00:00 AM EST - 09/12/2020 12:00:00 AM EST [facility] ([facility]) THERAPEUTIC PROPHYLACTIC/DX INJECTION SUBQ/IM 09/12/20 20 12:00:00 AM EST [facility] ([facility]) OFFICE OUTPATIENT VISIT 15 MINUTES 08/10 12:00:00 AM EDT - 08/10/2020 12:00:00 AM EDT [facility] ([facility]) OFFICE OUTPATIENT VISIT 15 MINUTES 08/10/2020 12:00:00 AM EDT [facility] ([facility]) THERAPEUTIC PROPHYLACTIC/DX INJECTION SUBQ/IM 07/13/2020 12:00:00 AM EDT - 07/13/2020 12:00:00 AM EDT [facility] ([facility]) THERAPEUTIC PROPHYLACTIC/DX INJECTION SUBQ/IM 07/13/20 20 12:00:00 AM EDT [facility] ([facility]) Results ID Date Data Source [id number] 07/19/2021 10:40:00 AM EDT [facility] Name Value Range Interpretation Code Description Data Michelle rce(s) Supporting Document(s) SARS coronavirus 2 RNA [Presence] in Res piratory specimen by OMI with probe detection NEGATIVE [facility] This lab was ordered by [facility] a nd reported by [facility]. ID Date Data Source [id number] 07/19/2021 09:50:00 AM EDT [facility] Name Value Range Interpretation Code Description Data Michelle rce(s) Supporting Document(s) SARS COVID ANTIGEN NEGATIVE [facility] This lab was ordered by [facility] a nd reported by [facility]. ID Date Data Source [id number] 06/04/2021 08:17:00 PM EDT [facility] Name Value Range Interpretation Code Description Data Michelle rce(s) Supporting Document(s) SARS coronavirus 2 RNA [Presence] in Res piratory specimen by OMI with probe detection NEGATIVE [facility] This lab was ordered by [facility] a nd reported by [facility]. ID Date Data Source [id number] 05/01/2021 01:57:00 PM EDT [facility] Name Value Range Interpretation Code Description Data Michelle rce(s) Supporting Document(s) SARS coronavirus 2 RNA [Presence] in Res piratory specimen by OMI with probe detection NEGATIVE [facility] This lab was ordered by [facility] a nd reported by [facility]. ID Date Data Source [id number] 04/19/2021 06:29:00 AM EDT [facility] Name Value Range Interpretation Code Description Data Michelle rce(s) Supporting Document(s) SARS coronavirus 2 RNA [Presence] in Res piratory specimen by OMI with probe detection NEGATIVE [facility] This lab was ordered by [facility] a nd reported by [facility]. ID Date Data Source [id number] 04/17/2021 05:50:00 PM EDT [facility] Name Value Range Interpretation Code Description Data Michelle rce(s) Supporting Document(s) SARS-CoV-2 (COVID-19) RNA [Presence] in Respiratory specimen by OMI with probe detection Not Detected [facility] This lab was ordered by [facility] and reported by [facility]. ID Date Data Source [id number] 02/28/2021 04:53:00 [place] [address] HEALTH INFORMATION MANAGEMENT History and Physical Report : [id number] Signed Patient: Gabo Parra Acct:[id number] Unit: Low [id number] : 1980 Loc: [facility] Room/Bed: 820-B Age/Sex: 40 / M [...] charges for this visit?: Yes Inpt Consult [id number] Cons Level 1: Yes Signed By:Rambo Summers <<Signature on File>> Signed Date/Time: 02/28/21 8262 Co-Signer: Leonel Hubbard MD Co-Signed Date/Time: 02/28/21 8821 Initializing User: Rambo Summers NP 02/28/211652 52 52 Name Value Range Interpretation Code Description Data Michelle rce(s) Supporting Document(s) ID Date Data Source [id number] 02/28/2021 10:45:00 AM EDT [facility] [address] [place] [address] HEALTH INFORMATION MANAGEMENT [facility] Psychosocial Summary : [id number] Signed Patient: Gabo Parra Acct:[id number] Unit: M [id number] : 1980 Loc: [facility] Room/Bed: 820-B Age/Sex: 40 / M ADM Date: 02/27/21 cc: General/History - Presenting Problem Presenting Problem: Social Summary/Discharge plan Presenting Problem Gabo is a40 yo AAM, extensive psych hx, also problems with substance abuse admitted on a transfer from [facility] ER brought in there by his CW as pt was feeling depressed, suicidal, also hallucinating and after abusing drugs History. tates was partially complaint with meds. Not able to name his psychiatrist in [place], not able to name the therapist. Gives h/o 5 to 6 inpt psych txs, last one few months ago, "I can't remember the place, they send me from [facility]. " Also, h'o inpt psych tx at [facility]. H/o self harm time, tried to hand [...] Person?: No Are you part of any judaism/spirtual community?: Yes (Christian ) - Current Living/Relationship History Current Living Arrangement: House Who Do You Live With?: Mother. OK to Return Home: Yes Weapons in household: No Currently in a Relationship?: No Ever Been ?: No Any Children?: 2 - Family History Where Were You Born/Raised?: [place] Who Was in Home?: Mother, Father How [...] Reducing Risk: Complies with Tx/Meds, Future Oriented, Orthodox Beliefs Mental Status Treatment - Mental Status [...] rce(s) Supporting Document(s) ID Date Data Source [id number] 02/27/2021 04:28:00 PM EDT [facility] Name Value Range Interpretation Code Description Data Michelle rce(s) Supporting Document(s) SARS coronavirus 2 RNA [Presence] in Res piratory specimen by OMI with probe detection NEGATIVE [facility] This lab was ordered by [facility] a nd reported by [facility]. ID Date Data Source [id number] 01/23/2021 01:03:00 AM EDT [facility] Name Value Range Interpretation Code Description Data Michelle rce(s) Supporting Document(s) SARS coronavirus 2 RNA [Presence] in Res piratory specimen by OMI with probe detection NEGATIVE [facility] This lab was ordered by [facility] a nd reported by [facility]. ID Date Data Source [id number] 10/17/2020 12:19:00 AM EST [facility] Name Value Range Interpretation Code Description Data Michelle rce(s) Supporting Document(s) SARS coronavirus 2 RNA [Presence] in Res piratory specimen by OMI with probe detection [facility] This lab was ordered by [facility] a nd reported by [facility]. Procedure Social History Code Duration Value Status Description Data Source(s ) Smoking 07/29/2021 12:00:00 AM EDT Unknown if ever smoked comp leted Unknown if ever smoked [facility] ([facility]) Smoking 06/24/2021 12:00:00 AM EDT Unknown if ever smoked comp leted Unknown if ever smoked [facility] ([facility]) Smoking 05/27/2021 12:00:00 AM EDT Unknown if ever smoked comp leted Unknown if ever smoked [facility] ([facility]) Smoking 05/13/2021 12:00:00 AM EDT Unknown if ever smoked comp leted Unknown if ever smoked [facility] ([facility]) Smoking 04/04/2021 12:00:00 AM EDT Unknown if ever smoked comp leted Unknown if ever smoked [facility] ([facility]) Smoking 04/03/2021 12:00:00 AM EDT Unknown if ever smoked comp leted Unknown if ever smoked [facility] Smoking 03/27/2021 12:00:00 AM EDT Unknown if ever smoked comp leted Unknown if ever smoked [facility] ([facility]) Smoking 03/19/2021 12:00:00 AM EDT Unknown if ever smoked comp leted Unknown if ever smoked [facility] ([facility]) Smoking 02/12/2021 12:00:00 AM EDT Unknown if ever smoked comp leted Unknown if ever smoked [facility] ([facility]) Smoking 02/07/2021 12:00:00 AM EDT Unknown if ever smoked comp leted Unknown if ever smoked [facility] ([facility]) Smoking 02/01/2021 12:00:00 AM EDT Unknown if ever smoked comp leted Unknown if ever smoked [facility] ([facility]) Smoking 01/23/2021 12:00:00 AM EDT Unknown if ever smoked comp leted Unknown if ever smoked [facility] ([facility]) Smoking 01/18/2021 12:00:00 AM EDT Unknown if ever smoked comp leted Unknown if ever smoked [facility] ([facility]) Smoking 01/17/2021 12:00:00 AM EDT Unknown if ever smoked comp leted Unknown if ever smoked [facility] ([facility]) Smoking 01/01/2021 12:00:00 AM EST Unknown if ever smoked comp leted Unknown if ever smoked [facility] ([facility]) Smoking 12/28/2020 12:00:00 AM EST Unknown if ever smoked comp leted Unknown if ever smoked [facility] ([facility]) Smoking 12/20/2020 12:00:00 AM EST Unknown if ever smoked comp leted Unknown if ever smoked [facility] ([facility]) Smoking 12/06/2020 12:00:00 AM EST Unknown if ever smoked comp leted Unknown if ever smoked [facility] ([facility]) Smoking 11/15/2020 12:00:00 AM EST Unknown if ever smoked comp leted Unknown if ever smoked [facility] ([facility]) Smoking 10/18/2020 12:00:00 AM EST Unknown if ever smoked comp leted Unknown if ever smoked [facility] ([facility]) Smoking 10/15/2020 12:00:00 AM EST Unknown if ever smoked comp leted Unknown if ever smoked [facility] ([facility]) Smoking 10/04/2020 12:00:00 AM EST Unknown if ever smoked comp leted Unknown if ever smoked [facility] ([facility]) Smoking 09/12/2020 12:00:00 AM EST Unknown if ever smoked comp leted Unknown if ever smoked [facility] ([facility]) Smoking 08/10/2020 12:00:00 AM EDT Unknown if ever smoked comp leted Unknown if ever smoked [facility] ([facility]) Smoking 07/13/2020 12:00:00 AM EDT Unknown if ever smoked comp leted Unknown if ever smoked [facility] ([facility]) Vital Signs ID Date Data Source UNK Name Value Range Interpretation Code Description Data Source(s) Body height 0.00 in Normal (applies to non-numeric resu lts) 0.00 in [facility] ([facility]) Body weight Measured 0.00 lbs Normal (applies to n on-numeric results) 0.00 lbs [facility] ([facility]) Body mass index (BMI) [Ratio] 0.00 kg/m2 No rmal (applies to non-numeric results) 0.00 kg/m2 [facility] ([facility]) Systolic blood pressure 0 mm[Hg] Normal (applies t o non-numeric results) 0 mm[Hg] [facility] ([facility]) Diastolic blood pressure 0 mm[Hg] Normal (applies to non-numeric results) 0 mm[Hg] [facility] ([facility]) Body height 0.00 in Normal (applies to non-numeric resu lts) 0.00 in [facility] ([facility]) Body weight Measured 0.00 lbs Normal (applies to n on-numeric results) 0.00 lbs [facility] ([facility]) Body mass index (BMI) [Ratio] 0.00 kg/m2 No rmal (applies to non-numeric results) 0.00 kg/m2 [facility] ([facility]) Systolic blood pressure 0 mm[Hg] Normal (applies t o non-numeric results) 0 mm[Hg] [facility] ([facility]) Diastolic blood pressure 0 mm[Hg] Normal (applies to non-numeric results) 0 mm[Hg] [facility] Body height 0.00 in Normal (applies to non-numeric resu lts) 0.00 in [facility] Body weight Measured 0.00 lbs Normal (applies to n on-numeric results) 0.00 lbs [facility] ([facility]) Body mass index (BMI) [Ratio] 0.00 kg/m2 No rmal (applies to non-numeric results) 0.00 kg/m2 [facility] ([facility]) Systolic blood pressure 0 mm[Hg] Normal (applies t o non-numeric results) 0 mm[Hg] [facility] ([facility]) Diastolic blood pressure 0 mm[Hg] Normal (applies to non-numeric results) 0 mm[Hg] [facility] ([facility]) Body height 0.00 in Normal (applies to non-numeric resu lts) 0.[address] [facility] ([facility]) Body weight Measured 0.00 lbs Normal (applies to n on-numeric results) 0.[address] [facility] ([facility]) Body mass index (BMI) [Ratio] 0.00 kg/m2 No rmal (applies to non-numeric results) 0.00 kg/m2 [facility] ([facility]) Systolic blood pressure 0 mm[Hg] Normal (applies t o non-numeric results) 0 mm[Hg] [facility] ([facility]) Diastolic blood pressure 0 mm[Hg] Normal (applies to non-numeric results) 0 mm[Hg] [facility] ([facility]) ID Date Data Source [id number] 09/22/2020 02:27:59 PM [facility] Name Value Range Interpretation Code Description Data Source(s) TRANSFER FROM [facility]
--- OUTSIDE RECORDS SUMMARY | 2021-08-15 09:30 | CCD ---
Author Author [facility] Organization [facility] Address Unknown Phone Unavailable Support Name Relationship Address Phone Hudson GUTIERREZ, Pasha Next Of Kin [address] [place] [address] Diamante Costa Next Of Kin [address] [place] [address] Dwain Joseph DO Next Of Kin [address] [place] [address] Cameron Bingham MD Next Of Kin [address] [place] [address] SELFGARY Next Of Kin [address] [place] [address] YONI JACK Next Of Kin [address] [place] [address] CORRECTIONAL, [place] [employer] [place] Next Of Kin [address] [place] [address] Monique Conklin MD Next Of Kin [address] [place] [phone] YONI CALHOUN Next Of Kin [address] [place] [address] Isabelle Manning Next Of Kin [address] [place] [address] Pat Gallo DO Next Of Kin [address] [place] [address] DISABLED Next Of Kin Unknown Unavailable Colony Self Next Of Kin [address] [place] [phone] SELF, JUNIOR Next Of Kin [address] [place] [address] UE Next Of Kin Unknown Unavailable SIMON WALL Next Of Kin [address] [place] [address] SELF, JUNIOR [address]CON [address] [place] [address] Unavailable Care Team Providers Care Electrical Lineman Name Role Phone Farden, M Rambo Unavailable [...] Unavailable Gina Nash Unavailable AMILCAR, H ANSELMO LABORER CARPENTRY DOCK Unavailable Unavailable AMILCAR, H ANSELMO LABORER CARPENTRY DOCK Unavailable Unavailable AMILCAR, H ANSELMO LABORER CARPENTRY DOCK Unavailable Unavailable AMILCAR, H ANSELMO LABORER CARPENTRY DOCK Unavailable Unavailable AMILCAR, H ANSELMO LABORER CARPENTRY DOCK Unavailable Unavailable AMILCAR, H ANSELMO LABORER CARPENTRY DOCK Unavailable Unavailable AMILCAR, H ANSELMO LABORER CARPENTRY DOCK Unavailable Unavailable AMILCAR, H ANSELMO LABORER CARPENTRY DOCK Unavailable Unavailable AMILCAR, H ANSELMO LABORER CARPENTRY DOCK Unavailable Unavailable Jossie Marcelino Unavailable Rotella, Jossy [...] Unavailable Unavailable Solomon Treviño MD Unavailable Unavailable Solomno Treviño MD Unavailable Unavailable Solomon Treviño MD [...] by Article 27-F of the [facility] Public Health law. If you continue you may have access to information: Regarding HIV / AIDS; Provided by facilities licensed or operated by the [facility] Office of Mental Health; or Provided by the [facility] Office for People With Developmental Disabilities. If such information is present, then the following [facility] mandated warning applies: This information has [...] law may result in a fine or retirement sentence or both. A general authorization for the release of medical or other information is NOT sufficient authorization for further disc losure. Allergies and Adverse Reactions Type Description Substance Reaction Status Data Source(s ) Drug allergy No Known Allergies No Known Allergies [facility] Propensity to adverse reactions NO KNOWN ALLERGIES NO KNOWN ALLERGIES [facility] Encounters Encounter Providers Location Date Indications Data Source(s ) Injectable Medication Administration w/ Monitoring & E ducation Attender: Pammurphy Isbellpo [facility] 07/29/2021 02:30:00 AM EDT - 07/29/2021 02:30:00 AM EDT [facility] ([facility]) Attender: Pam Juarez 07/29/2021 12:00:00 AM EDT [facility] ([facility]) Injectable Medication Administration w/ Monitoring & E ducation Attender: Thalia Carreno [facility] 06/24/2021 10:45:00 AM EDT - 06/24/2021 10:45:00 AM EDT [facility] ([facility]) Attender: Thalia Carreno 06/24/2021 12:00:00 AM EDT [facility] ([facility]) Injectable Psychotropic Medication Administration (Inj ection Only) Attender: Thalia Carreno [facility] 05/27/2021 08:15:00 AM EDT - 05/27/2021 08:15:00 AM EDT [facility] ([facility]) Attender: Thalia Carreno 05/27/2021 12:00:00 AM EDT [facility] ([facility]) Brief Individual Psychotherapy - 30 min Attender: Gina yun [facility] 05/13/2021 08:30:00 AM EDT - 05/13/2021 08:30:00 AM EDT [facility] ([facility]) Attender: Gina Nash 05/13/2021 12:00:00 AM EDT [facility] ([facility]) Attender: Pam Juarez 04/04/2021 12:00:00 AM EDT [facility] ([facility]) Injectable Medication Administration w/ Monitoring & E ducation Attender: Pam Borjapo [facility] Maria Alejandra 04/03/2021 09:00:00 AM EDT - 04/03/2021 09:00:00 AM EDT [facility] ([facility]) Outpatient Attender: ANSELMO APONTE NP [facility] Mike garcía 04/03/2021 08:30:00 AM EDT - 04/03/2021 08:30:00 AM EDT [facility] ([facility]) Attender: ANSELMO APONTE NP 04/03/2021 12:00:00 AM EDT [facility] ([facility]) Outpatient Attender: ANSELMO APONTE NP [facility] Mike garcía 03/27/2021 11:00:00 AM EDT - 03/27/2021 11:00:00 AM EDT [facility] ([facility]) Attender: ANSELMO APONTE NP 03/27/2021 12:00:00 AM EDT [facility] ([facility]) Outpatient Attender: ANSELMO APONTE NP [facility] Mike garcía 03/19/2021 03:00:00 AM EDT - 03/19/2021 03:00:00 AM EDT [facility] ([facility]) Attender: ANSELMO APONTE NP 03/19/2021 12:00:00 AM EDT [facility] ([facility]) Inpatient Attender: JONNATHAN Marieeitter: JONNATHAN TRACY MD 02/27/2021 08:12:00 PM EDT - 03/08/2021 03:27:00 PM EDT Suicidal Ideation / Homicidal Ideation [facility] Suicidal Ideation / Homicidal Ideation Patient discharged. Outpatient Attender: JONNATHAN Bonilla tter: JONNATHAN TRACY MDConsultant: JONNATHAN TRACY MD 02/27/2021 08:12:00 PM EDT Suicidal Ideation / H omicidal Ideation [facility] Suicidal Ideation / Homicidal Ideation Outpatient Attender: JONNATHAN TRACY MDAdmi tter: JONNATHAN MAIAL MDConsultant: JONNATHAN TRACY MD 02/27/2021 08:12:00 PM EDT Suicidal Ideation / [facility] Suicidal Ideation / Homicidal Ideation Outpatient Attender: Catsro ColonAdmitter : JONNATHAN MAIAL MDConsultant: JONNATHAN TRACY MD 02/27/2021 08:12:00 PM EDT Suicidal Ideation / H omicidal Ideation [facility] Suicidal Ideation / Homicidal Ideation Outpatient Attender: JONNATHAN TRACY MDAdmi tter: JONNATHAN TRACY MDConsultant: JONNATHAN TRACY MD 02/27/2021 08:12:00 PM EDT Suicidal Ideation / H omicidal Ideation [facility] Suicidal Ideation / Homicidal Ideation Outpatient Attender: JONNATHAN TRACY MDAdmi tter: JONNATHAN TRACY MDConsultant: JONNATHAN TRACY MD 02/27/2021 08:12:00 PM EDT Suicidal Ideation / H omicidal Ideation [facility] Suicidal Ideation / Homicidal Ideation Outpatient Attender: JONNATHAN TRACY MDAdmi tter: JONNATHAN TRACY MDConsultant: JONNATHAN TRACY MD 02/27/2021 08:12:00 PM EDT Suicidal Ideation / H omicidal Ideation [facility] Suicidal Ideation / Homicidal Ideation Outpatient Attender: Castro ColonAdmitter : JONNATHAN TRACY MDConsultant: JONNATHAN TRACY MD 02/27/2021 08:12:00 PM EDT Suicidal Ideation / H omicidal Ideation [facility] Suicidal Ideation / Homicidal Ideation Outpatient Attender: Castro ColonAdmitter : JONNATHAN TRACY MDConsultant: JONNATHAN TRACY MD 02/27/2021 08:12:00 PM EDT Suicidal Ideation / H omicidal Ideation [facility] Suicidal Ideation / Homicidal Ideation Outpatient Attender: JONNATHAN TRACY MDAdmi tter: JONNATHAN TRACY MDConsultant: JONNATHAN TRACY MD 02/27/2021 08:12:00 PM EDT Suicidal Ideation / H omicidal Ideation [facility] Suicidal Ideation / Homicidal Ideation Outpatient Attender: Rambo Pedroza mitter: JONNATHAN TRACY MDConsultant: JONNATHAN TRACY MD 02/27/2021 08:12:00 PM EDT Suicidal Ideation / H omicidal Ideation [facility] Suicidal Ideation / Homicidal Ideation Outpatient Attender: ANSELMO APONTE NP [facility] 02/12/2021 10:30:00 AM EDT - 02/12/2021 10:30:00 AM EDT [facility] ([facility]) Attender: ANSELMO APONTE NP 02/12/2021 12:00:00 AM EDT [facility] ([facility]) Outpatient Attender: ANSELMO APONTE NP [facility] 02/07/2021 11:30:00 AM EDT - 02/07/2021 11:30:00 AM EDT [facility] ([facility]) Attender: ANSELMO APONTE NP 02/07/2021 12:00:00 AM EDT [facility] ([facility]) Brief Individual Psychotherapy - 30 min Attender: Gina yun [facility] 02/01/2021 02:00:00 AM EDT - 02/01/2021 02:00:00 AM EDT [facility] ([facility]) Attender: Gina Nash 02/01/2021 12:00:00 AM EDT [facility] ([facility]) Injectable Psychotropic Medication Administration (Inj ection Only) Attender: Thalia Carreno [facility] 01/23/2021 10:00:00 AM EDT - 01/23/2021 10:00:00 AM EDT [facility] ([facility]) Outpatient Attender: ANSELMO APONTE NP [facility] 01/23/2021 09:15:00 AM EDT - 01/23/2021 09:15:00 AM EDT [facility] ([facility]) Attender: ANESLMO APONTE NP 01/23/2021 12:00:00 AM EDT [facility] ([facility]) Attender: Thalia Carreno 01/23/2021 12:00:00 AM EDT [facility] ([facility]) Injectable Medication Administration w/ Monitoring & E ducation Attender: Pam Juarez [facility] 01/18/2021 11:00:00 AM EDT - 01/18/2021 11:00:00 AM EDT [facility] ([facility]) Attender: Pam Juarez 01/18/2021 12:00:00 AM EDT [facility] ([facility]) Outpatient Attender: ANSELMO APONTE NP [facility] raquel 01/17/2021 09:00:00 AM EDT - 01/17/2021 09:00:00 AM EDT [facility] ([facility]) Attender: ANSELMO APONTE NP 01/17/2021 12:00:00 AM EDT [facility] ([facility]) Outpatient Attender: ANSELMO APONTE NP [facility] raquel 01/01/2021 02:30:00 AM EST - 01/01/2021 02:30:00 AM EST [facility] ([facility]) Attender: ANSELMO APONTE NP 01/01/2021 12:00:00 AM EST [facility] ([facility]) Injectable Psychotropic Medication Administration (Inj ection Only) Attender: Jossie Marcelino [facility] 12/28/2020 10:30:00 AM EST - 12/28/2020 10:30:00 AM EST [facility] ([facility]) Attender: Jossie Marcelino 12/28/2020 12:00:00 AM EST [facility] ([facility]) Outpatient Attender: Victorino Escobar MD [facility] Mike raquel 12/20/2020 09:30:00 AM EST - 12/20/2020 09:30:00 AM EST [facility] ([facility]) Attender: Victorino Escobar MD 12/20/2020 12:00:00 AM EST [facility] ([facility]) Outpatient Attender: Victorino Escobar MD [facility] Mike garcía 12/06/2020 12:30:00 PM EST - 12/06/2020 12:30:00 PM EST [facility] ([facility]) Attender: Victorino Escobar MD 12/06/2020 12:00:00 AM EST [facility] ([facility]) Injectable Medication Administration w/ Monitoring & E ducation Attender: ORGANIZATION NPI ALIASES [facility] 11/15/2020 11:15: 00 AM EST - 11/15/2020 11:15:00 AM EST [facility] ([facility]) Outpatient Attender: Victorino Escobar MD [facility] Mike garcía 11/15/2020 11:00:00 AM EST - 11/15/2020 11:00:00 AM EST [facility] ([facility]) Attender: ORGANIZATION NPI ALIASES * 11/15/2020 12:00:00 AM EST [facility] ([facility]) Attender: Victorino Escobar MD 11/15/2020 12:00:00 AM EST [facility] ([facility]) Injectable Psychotropic Medication Administration (Inj ection Only) Attender: Jossy Mejia [facility] 10/18/2020 10:30:00 AM EST - 10/18/2020 10:30:00 AM EST [facility] ([facility]) Attender: Jossy Mejia 10/18/2020 12:00:00 AM EST [facility] ([facility]) Injectable Psychotropic Medication Administration (Inj ection Only) Attender: Jossy Mejia [facility] 10/15/2020 11:00:00 AM EST - 10/15/2020 11:00:00 AM EST [facility] ([facility]) Attender: Jossy Mejia 10/15/2020 12:00:00 AM EST [facility] ([facility]) Injectable Psychotropic Medication Administration (Inj ection Only) Attender: Jossy Mejia [facility] 10/04/2020 10:30:00 AM EST - 10/04/2020 10:30:00 AM EST [facility] ([facility]) Outpatient Attender: KALLI MOLINAURSZULA [facility] 10/04/2020 10:00:00 AM EST - 10/04/2020 10:00:00 AM EST [facility] ([facility]) Attender: Jossy Mejia 10/04/2020 12:00:00 AM EST [facility] ([facility]) Attender: KALLI MOLINAURSZULA 10/04/2020 12:00: 00 AM EST [facility] ([facility]) Outpatient Referrer: [facility] [place] 09/22/2020 0 2:27:00 PM EST schizophrenia, hallucinations, substance abuse [facility] schizophrenia, hallucinations, substance abuse Injectable Psychotropic Medication Administration (Inj ection Only) Attender: Jossy Mejia [facility] 09/12/2020 09:30:00 AM EST - 09/12/2020 09:30:00 AM EST [facility] ([facility]) Outpatient Attender: KALLI MOLINAURSZULA [facility] 09/12/2020 09:00:00 AM EST - 09/12/2020 09:00:00 AM EST [facility] ([facility]) Attender: KALLI VALLEJO 09/12/2020 12:00: 00 AM EST [facility] ([facility]) Attender: Jossy Mejia 09/12/2020 12:00:00 AM EST [facility] ([facility]) Outpatient Attender: KALLI MOLINAURSZULA [facility] ail 08/10/2020 02:00:00 AM EDT - 08/10/2020 02:00:00 AM EDT [facility] ([facility]) Attender: KALLI MOLINAURSZULA 08/10/2020 12:00: 00 AM EDT [facility] ([facility]) Injectable Psychotropic Medication Administration (Inj ection Only) Attender: Jossy Mejia [facility] 07/13/2020 02:00:00 AM EDT - 07/13/2020 02:00:00 AM EDT [facility] ([facility]) Attender: Jossy Mejia 07/13/2020 12:00:00 AM EDT [facility] ([facility]) Outpatient Attender: Pasha Treviño MD 07/12/2020 02:46:50 PM EDT [facility] Outpatient Attender: Pasha Treviño MD 06/21/2020 10:56:00 AM EDT [facility] Functional Status Medications Medication Brand Name Start Date Product Form Dose Route Admi nistrative Instructions Pharmacy Instructions Status Indications Reaction Description Data Source(s) Prazosin 1 MG Oral Capsule prazosin 07/10/2021 12:00:00 AM EDT 1 mg by mouth completed <td ID="Medicat ionRxNorm_4">101072</td><td ID="MedicationMedication_4">prazosin</td><td ID="MedicationRoute_4">by mouth</td><td ID="MedicationRouteConcept_4">S31379</td><td ID="MedicationStartDate_4">07/10/2021</td><td ID="MedicationStopDate_4">08/09/2021</td><td ID="MedicationDosageFrequency_4">at bedtime</td><td ID="MedicationDuration_4">30</td><td ID="MedicationFormulaStrength_4">1 mg</td><td ID="MedicationDosageForm_4">capsule</td><td ID="MedicationDosageFormCode_4"></td><td ID="MedicationDosageDescription_4"></td><td ID="MedicationMedicationId_4">[id number]</td><td ID="MedicationAccount_4">[id number]</td><td ID="MedicationNpid_4">[id number]</td><td ID="MedicationAuthorFirstName_4">Anselmo</td><td ID="MedicationAuthorLastName_4">Amilcar</td><td ID="MedicationTaxonomyCode_4">[id number]</td><td ID="MedicationTaxonomyDesc_4">Nurse Practitioner</td><td ID="MedicationPhoneNumber_4">[phone]</td> [facility] ([facility]) olanzapine 5 MG Oral Tablet [Zyprexa] Zyprexa 05/23/2021 12:00:00 AM EDT 5 mg by mouth completed <td ID="Medica tionRxNorm_2">931053</td><td ID="MedicationMedication_2">Zyprexa</td><td ID="MedicationRoute_2">by mouth</td><td ID="MedicationRouteConcept_2">X63314</td><td ID="MedicationStartDate_2">05/23/2021</td><td ID="MedicationStopDate_2">08/09/2021</td><td ID="MedicationDosageFrequency_2">at bedtime</td><td ID="MedicationDuration_2">30</td><td ID="MedicationFormulaStrength_2">5 mg</td><td ID="MedicationDosageForm_2">tablet</td><td ID="MedicationDosageFormCode_2"></td><td ID="MedicationDosageDescription_2"></td><td ID="MedicationMedicationId_2">[id number]</td><td ID="MedicationAccount_2">[id number]</td><td ID="MedicationNpid_2">[id number]</td><td ID="MedicationAuthorFirstName_2">Anselmo</td><td ID="MedicationAuthorLastName_2">Amilcar</td><td ID="MedicationTaxonomyCode_2">[id number]</td><td ID="MedicationTaxonomyDesc_2">Nurse Practitioner</td><td ID="MedicationPhoneNumber_2">[phone]</td> [facility] ([facility]) benztropine mesylate 1 MG Oral Tablet benztropine 05/23/2021 12:00 :00 AM EDT 1 mg by mouth completed <td ID="Me dicationRxNorm_3">719368</td><td ID="MedicationMedication_3">benztropine</td><td ID="MedicationRoute_3">by mouth</td><td ID="MedicationRouteConcept_3">C46341</td><td ID="MedicationStartDate_3">05/23/2021</td><td ID="MedicationStopDate_3">08/09/2021</td><td ID="MedicationDosageFrequency_3">at bedtime</td><td ID="MedicationDuration_3">30</td><td ID="MedicationFormulaStrength_3">1 mg</td><td ID="MedicationDosageForm_3">tablet</td><td ID="MedicationDosageFormCode_3"></td><td ID="MedicationDosageDescription_3"></td><td ID="MedicationMedicationId_3">[id number]</td><td ID="MedicationAccount_3">[id number]</td><td ID="MedicationNpid_3">[id number]</td><td ID="MedicationAuthorFirstName_3">Anselmo</td><td ID="MedicationAuthorLastName_3">Amilcar</td><td ID="MedicationTaxonomyCode_3">[id number]</td><td ID="MedicationTaxonomyDesc_3">Nurse Practitioner</td><td ID="MedicationPhoneNumber_3">[phone]</td> [facility] ([facility]) 1.5 ML paliperidone palmitate 156 MG/ML Prefilled Syri nge [Invega] Invega Sustenna 04/16/2021 12:00:00 AM EDT 234 mg/1.5 compl eted <td ID="MedicationRxNorm_1">788142</td><td ID="MedicationMedication_1">Invega Sustenna</td><td ID="MedicationRoute_1"></td><td ID="MedicationRouteConcept_1"></td><td ID="MedicationStartDate_1">04/16/2021</td><td ID="MedicationStopDate_1"></td><td ID="MedicationDosageFrequency_1"></td><td ID="MedicationDuration_1"></td><td ID="MedicationFormulaStrength_1">234 mg/1.5 mL</td><td ID="MedicationDosageForm_1">syringe</td><td ID="MedicationDosageFormCode_1"></td><td ID="MedicationDosageDescription_1"> </td><td ID="MedicationMedicationId_1">[id number]</td><td ID="MedicationAccount_1">[id number]</td><td ID="MedicationNpid_1">[id number]</td><td ID="MedicationAuthorFirstName_1">Anselmo</td><td ID="MedicationAuthorLastName_1">Amilcra</td><td ID="MedicationTaxonomyCode_1">[id number]</td><td ID="MedicationTaxonomyDesc_1">Nurse Practitioner</td><td ID="MedicationPhoneNumber_1">[phone]</td> [facility] ([facility]) 2.625 ML paliperidone palmitate 312 MG/ML Prefilled Sy ringe [Invega] Invega Trinza 04/03/2021 12:00:00 AM EDT 819 mg/2.625 compl eted <td ID="MedicationRxNorm_3">3176354</td><td ID="MedicationMedication_3">Invega Trinza</td><td ID="MedicationRoute_3">intramuscularly</td><td ID="MedicationRouteConcept_3"></td><td ID="MedicationStartDate_3">04/03/2021</td><td ID="MedicationStopDate_3">07/02/2021</td><td ID="MedicationDosageFrequency_3">every three months</td><td ID="MedicationDuration_3">90</td><td ID="MedicationFormulaStrength_3">819 mg/2.625 mL</td><td ID="MedicationDosageForm_3">syringe</td><td ID="MedicationDosageFormCode_3"></td><td ID="MedicationDosageDescription_3"></td><td ID="MedicationMedicationId_3">[id number]</td><td ID="MedicationAccount_3">[id number]</td><td ID="MedicationNpid_3">[id number]</td><td ID="MedicationAuthorFirstName_3">Anselmo</td><td ID="MedicationAuthorLastName_3">Amilcar</td><td ID="MedicationTaxonomyCode_3">[id number]</td><td ID="MedicationTaxonomyDesc_3"> Nurse Practitioner</td><td ID="MedicationPhoneNumber_3">[phone]</td> [facility] ([facility]) 2.625 ML paliperidone palmitate 312 MG/ML Prefilled Sy ringe [Invega] Ml Roth 04/03/2021 12:00:00 AM EDT 819 mg/2.625 compl eted <td ID="MedicationRxNorm_4">2748752</td><td ID="MedicationMedication_4">Invega Trinza</td><td ID="MedicationRoute_4">intramuscularly</td><td ID="MedicationRouteConcept_4"></td><td ID="MedicationStartDate_4">04/03/2021</td><td ID="MedicationStopDate_4">07/02/2021</td><td ID="MedicationDosageFrequency_4">every three months</td><td ID="MedicationDuration_4">90</td><td ID="MedicationFormulaStrength_4">819 mg/2.625 mL</td><td ID="MedicationDosageForm_4">syringe</td><td ID="MedicationDosageFormCode_4"></td><td ID="MedicationDosageDescription_4"></td><td ID="MedicationMedicationId_4">[id number]</td><td ID="MedicationAccount_4">[id number]</td><td ID="MedicationNpid_4">[id number]</td><td ID="MedicationAuthorFirstName_4">Anselmo</td><td ID="MedicationAuthorLastName_4">Amilcar</td><td ID="MedicationTaxonomyCode_4">[id number]</td><td ID="MedicationTaxonomyDesc_4"> Nurse Practitioner</td><td ID="MedicationPhoneNumber_4">[phone]</td> [facility] ([facility]) haloperidol decanoate haloperidol decanoate 04/03/2021 12:00:00 AM EDT 100 mg/mL completed <td ID="Me dicationRxNorm_2">1000244</td><td ID="MedicationMedication_2">haloperidol decanoate</td><td ID="MedicationRoute_2">intramuscularly</td><td ID="MedicationRouteConcept_2"> </td><td ID="MedicationStartDate_2">04/03/2021</td><td ID="MedicationStopDate_2">04/03/2021</td><td ID="MedicationDosageFrequency_2">every four weeks</td><td ID="MedicationDuration_2">28</td><td ID="MedicationFormulaStrength_2">100 mg/mL</td><td ID="MedicationDosageForm_2">solution</td><td ID="MedicationDosageFormCode_2"></td><td ID="MedicationDosageDescription_2"></td><td ID="MedicationMedicationId_2">[id number]</td><td ID="MedicationAccount_2">[id number]</td><td ID="MedicationNpid_2">[id number]</td><td ID="MedicationAuthorFirstName_2">Anselmo</td><td ID="MedicationAuthorLastName_2">Amilcar</td><td ID="MedicationTaxonomyCode_2">[id number]</td><td ID="MedicationTaxonomyDesc_2"> Nurse Practitioner</td><td ID="MedicationPhoneNumber_2">[phone]</td> [facility] ([facility]) benztropine mesylate 1 MG Oral Tablet benztropine 04/03/2021 12:00 :00 AM EDT 1 mg by mouth completed <td ID="Me dicationRxNorm_2">394157</td><td ID="MedicationMedication_2">benztropine</td><td ID="MedicationRoute_2">by mouth</td><td ID="MedicationRouteConcept_2">L36636</td><td ID="MedicationStartDate_2">04/03/2021</td><td ID="MedicationStopDate_2">05/03/2021</td><td ID="MedicationDosageFrequency_2">at bedtime</td><td ID="MedicationDuration_2">30</td><td ID="MedicationFormulaStrength_2">1 mg</td><td ID="MedicationDosageForm_2">tablet</td><td ID="MedicationDosageFormCode_2"></td><td ID="MedicationDosageDescription_2"></td><td ID="MedicationMedicationId_2">[id number]</td><td ID="MedicationAccount_2">[id number]</td><td ID="MedicationNpid_2">[id number]</td><td ID="MedicationAuthorFirstName_2">Anselmo</td><td ID="MedicationAuthorLastName_2">Amilcar</td><td ID="MedicationTaxonomyCode_2">[id number]</td><td ID="MedicationTaxonomyDesc_2">Nurse Practitioner</td><td ID="MedicationPhoneNumber_2">[phone]</td> [facility] ([facility]) olanzapine 5 MG Oral Tablet [Zyprexa] Zyprexa 04/03/2021 12:00:00 AM EDT 5 mg by mouth completed <td ID="Medica tionRxNorm_1">543074</td><td ID="MedicationMedication_1">Zyprexa</td><td ID="MedicationRoute_1">by mouth</td><td ID="MedicationRouteConcept_1">B85091</td><td ID="MedicationStartDate_1">04/03/2021</td><td ID="MedicationStopDate_1">05/03/2021</td><td ID="MedicationDosageFrequency_1">at bedtime</td><td ID="MedicationDuration_1">30</td><td ID="MedicationFormulaStrength_1">5 mg</td><td ID="MedicationDosageForm_1">tablet</td><td ID="MedicationDosageFormCode_1"></td><td ID="MedicationDosageDescription_1"></td><td ID="MedicationMedicationId_1">[id number]</td><td ID="MedicationAccount_1">[id number]</td><td ID="MedicationNpid_1">[id number]</td><td ID="MedicationAuthorFirstName_1">Anselmo</td><td ID="MedicationAuthorLastName_1">Amilcar</td><td ID="MedicationTaxonomyCode_1">[id number]</td><td ID="MedicationTaxonomyDesc_1">Nurse Practitioner</td><td ID="MedicationPhoneNumber_1">[phone]</td> [facility] ([facility]) 2.625 ML paliperidone palmitate 312 MG/ML Prefilled Sy ringe [Invega] Invega Trinza 04/03/2021 12:00:00 AM EDT 819 mg/2.625 compl eted <td ID="MedicationRxNorm_5">[id number]</td><td ID="MedicationMedication_5">Invega Trinza</td><td ID="MedicationRoute_5">intramuscularly</td><td ID="MedicationRouteConcept_5"></td><td ID="MedicationStartDate_5">04/03/2021</td><td ID="MedicationStopDate_5">07/02/2021</td><td ID="MedicationDosageFrequency_5">every three months</td><td ID="MedicationDuration_5">90</td><td ID="MedicationFormulaStrength_5">819 mg/2.625 mL</td><td ID="MedicationDosageForm_5">syringe</td><td ID="MedicationDosageFormCode_5"></td><td ID="MedicationDosageDescription_5"></td><td ID="MedicationMedicationId_5">[id number]</td><td ID="MedicationAccount_5">[id number]</td><td ID="MedicationNpid_5">[id number]</td><td ID="MedicationAuthorFirstName_5">Anselmo</td><td ID="MedicationAuthorLastName_5">Amilcar</td><td ID="MedicationTaxonomyCode_5">[id number]</td><td ID="MedicationTaxonomyDesc_5"> Nurse Practitioner</td><td ID="MedicationPhoneNumber_5">[phone]</td> [facility] ([facility]) benztropine mesylate 1 MG Oral Tablet benztropine 04/03/2021 12:00 :00 AM EDT 1 mg by mouth completed <td ID="Me dicationRxNorm_4">751878</td><td ID="MedicationMedication_4">benztropine</td><td ID="MedicationRoute_4">by mouth</td><td ID="MedicationRouteConcept_4">W90596</td><td ID="MedicationStartDate_4">04/03/2021</td><td ID="MedicationStopDate_4">05/03/2021</td><td ID="MedicationDosageFrequency_4">at bedtime</td><td ID="MedicationDuration_4">30</td><td ID="MedicationFormulaStrength_4">1 mg</td><td ID="MedicationDosageForm_4">tablet</td><td ID="MedicationDosageFormCode_4"></td><td ID="MedicationDosageDescription_4"></td><td ID="MedicationMedicationId_4">[id number]</td><td ID="MedicationAccount_4">[id number]</td><td ID="MedicationNpid_4">[id number]</td><td ID="MedicationAuthorFirstName_4">Anselmo</td><td ID="MedicationAuthorLastName_4">Amilcar</td><td ID="MedicationTaxonomyCode_4">[id number]</td><td ID="MedicationTaxonomyDesc_4">Nurse Practitioner</td><td ID="MedicationPhoneNumber_4">[phone]</td> [facility] ([facility]) olanzapine 5 MG Oral Tablet [Zyprexa] Zyprexa 04/03/2021 12:00:00 AM EDT 5 mg by mouth completed <td ID="Medica tionRxNorm_3">077719</td><td ID="MedicationMedication_3">Zyprexa</td><td ID="MedicationRoute_3">by mouth</td><td ID="MedicationRouteConcept_3">D65946</td><td ID="MedicationStartDate_3">04/03/2021</td><td ID="MedicationStopDate_3">05/03/2021</td><td ID="MedicationDosageFrequency_3">at bedtime</td><td ID="MedicationDuration_3">30</td><td ID="MedicationFormulaStrength_3">5 mg</td><td ID="MedicationDosageForm_3">tablet</td><td ID="MedicationDosageFormCode_3"></td><td ID="MedicationDosageDescription_3"></td><td ID="MedicationMedicationId_3">[id number]</td><td ID="MedicationAccount_3">[id number]</td><td ID="MedicationNpid_3">[id number]</td><td ID="MedicationAuthorFirstName_3">Anselmo</td><td ID="MedicationAuthorLastName_3">Amilcar</td><td ID="MedicationTaxonomyCode_3">[id number]</td><td ID="MedicationTaxonomyDesc_3">Nurse Practitioner</td><td ID="MedicationPhoneNumber_3">[phone]</td> [facility] ([facility]) 2.625 ML paliperidone palmitate 312 MG/ML Prefilled Sy ringe [Invega] Invega Trinza 04/03/2021 12:00:00 AM EDT 819 mg/2.625 compl eted <td ID="MedicationRxNorm_2">[id number]</td><td ID="MedicationMedication_2">Invega Trinza</td><td ID="MedicationRoute_2">intramuscularly</td><td ID="MedicationRouteConcept_2"></td><td ID="MedicationStartDate_2">04/03/2021</td><td ID="MedicationStopDate_2">07/02/2021</td><td ID="MedicationDosageFrequency_2">every three months</td><td ID="MedicationDuration_2">90</td><td ID="MedicationFormulaStrength_2">819 mg/2.625 mL</td><td ID="MedicationDosageForm_2">syringe</td><td ID="MedicationDosageFormCode_2"></td><td ID="MedicationDosageDescription_2"></td><td ID="MedicationMedicationId_2">[id number]</td><td ID="MedicationAccount_2">[id number]</td><td ID="MedicationNpid_2">[id number]</td><td ID="MedicationAuthorFirstName_2">Anselmo</td><td ID="MedicationAuthorLastName_2">Amilcar</td><td ID="MedicationTaxonomyCode_2">[id number]</td><td ID="MedicationTaxonomyDesc_2"> Nurse Practitioner</td><td ID="MedicationPhoneNumber_2">[phone]</td> [facility] ([facility]) haloperidol decanoate haloperidol decanoate 10/04/2020 12:00:00 AM EST 100 mg/mL completed <td ID="Me dicationRxNorm_1">[id number]</td><td ID="MedicationMedication_1">haloperidol decanoate</td><td ID="MedicationRoute_1">intramuscularly</td><td ID="MedicationRouteConcept_1"> </td><td ID="MedicationStartDate_1">10/04/2020</td><td ID="MedicationStopDate_1">04/03/2021</td><td ID="MedicationDosageFrequency_1">as directed</td><td ID="MedicationDuration_1">21</td><td ID="MedicationFormulaStrength_1">100 mg/mL</td><td ID="MedicationDosageForm_1">solution</td><td ID="MedicationDosageFormCode_1"></td><td ID="MedicationDosageDescription_1"></td><td ID="MedicationMedicationId_1">[id number]</td><td ID="MedicationAccount_1">[id number]</td><td ID="MedicationNpid_1">[id number]</td><td ID="MedicationAuthorFirstName_1">Victorino</td><td ID="MedicationAuthorLastName_1">Escobar</td><td ID="MedicationTaxonomyCode_1">[id number]</td><td ID="MedicationTaxonomyDesc_1"> Psychiatry</td><td ID="MedicationPhoneNumber_1">[phone]</td> [facility] ([facility] 100 mg/mL 10/02/2020 12:00:00 AM EST solution [...] 50 mg by mouth completed <td ID="Medic ationRxNorm_5">544451</td><td ID="MedicationMedication_5">trazodone</td><td ID="MedicationRoute_5">by mouth</td><td ID="MedicationRouteConcept_5">R30397</td><td ID="MedicationStartDate_5">09/12/2020</td><td ID="MedicationStopDate_5">10/12/2020</td><td ID="MedicationDosageFrequency_5">every night</td><td ID="MedicationDuration_5">30</td><td ID="MedicationFormulaStrength_5">50 mg</td><td ID="MedicationDosageForm_5">tablet</td><td ID="MedicationDosageFormCode_5"></td><td ID="MedicationDosageDescription_5"></td><td ID="MedicationMedicationId_5">[id number]</td><td ID="MedicationAccount_5">[id number]</td><td ID="MedicationNpid_5">[id number]</td><td ID="MedicationAuthorFirstName_5">Kalli</td><td ID="MedicationAuthorLastName_5">Egorho</td><td ID="MedicationTaxonomyCode_5">[id number]</td><td ID="MedicationTaxonomyDesc_5">Nurse Practitioner</td><td ID="MedicationPhoneNumber_5">[phone]</td> [facility] ([facility]) Trazodone Hydrochloride 50 MG Oral Tablet trazodone 2019 12:00:00 AM EST 50 mg by mouth completed <td ID="Medic ationRxNorm_1">144596</td><td ID="MedicationMedication_1">trazodone</td><td ID="MedicationRoute_1">by mouth</td><td ID="MedicationRouteConcept_1">S69041</td><td ID="MedicationStartDate_1">09/12/2020</td><td ID="MedicationStopDate_1">10/12/2020</td><td ID="MedicationDosageFrequency_1">every night</td><td ID="MedicationDuration_1">30</td><td ID="MedicationFormulaStrength_1">50 mg</td><td ID="MedicationDosageForm_1">tablet</td><td ID="MedicationDosageFormCode_1"></td><td ID="MedicationDosageDescription_1"></td><td ID="MedicationMedicationId_1">[id number]</td><td ID="MedicationAccount_1">[id number]</td><td ID="MedicationNpid_1">[id number]</td><td ID="MedicationAuthorFirstName_1">Kalli</td><td ID="MedicationAuthorLastName_1">Egorho</td><td ID="MedicationTaxonomyCode_1">[id number]</td><td ID="MedicationTaxonomyDesc_1">Nurse Practitioner</td><td ID="MedicationPhoneNumber_1">[phone]</td> [facility] ([facility]) Haldol Decanoate Haldol Decanoate 09/12/2020 12:00:00 AM EST 100 mg/mL completed <td ID="MedicationRx Norm_4">[id number]</td><td ID="MedicationMedication_4">Haldol Decanoate</td><td ID="MedicationRoute_4">intramuscularly</td><td ID="MedicationRouteConcept_4"></td><td ID="MedicationStartDate_4">09/12/2020</td><td ID="MedicationStopDate_4">09/15/2020</td><td ID="MedicationDosageFrequency_4">as directed</td><td ID="MedicationDuration_4">1</td><td ID="MedicationFormulaStrength_4">100 mg/mL</td><td ID="MedicationDosageForm_4">solution</td><td ID="MedicationDosageFormCode_4"></td><td ID="MedicationDosageDescription_4"></td><td ID="MedicationMedicationId_4">[id number]</td><td ID="MedicationAccount_4">[id number]</td><td ID="MedicationNpid_4">[id number]</td><td ID="MedicationAuthorFirstName_4">Kalli</td><td ID="MedicationAuthorLastName_4">Egorho</td><td ID="MedicationTaxonomyCode_4">[id number]</td><td ID="MedicationTaxonomyDesc_4">Nurse Practitioner</td><td ID="MedicationPhoneNumber_4">[phone]</td> [facility] ([facility]) quetiapine 300 MG Oral Tablet quetiapine 01/06/2020 12:00:00 AM EST 300 mg completed <td ID="Medicat ionRxNorm_4">308485</td><td ID="MedicationMedication_4">quetiapine</td><td ID="MedicationRoute_4"></td><td ID="MedicationRouteConcept_4"></td><td ID="MedicationStartDate_4">01/06/2020</td><td ID="MedicationStopDate_4">01/05/2021</td><td ID="MedicationDosageFrequency_4">at bedtime</td><td ID="MedicationDuration_4">30</td><td ID="MedicationFormulaStrength_4">300 mg</td><td ID="MedicationDosageForm_4">tablet</td><td ID="MedicationDosageFormCode_4"></td><td ID="MedicationDosageDescription_4"></td><td ID="MedicationMedicationId_4">95338</td><td ID="MedicationAccount_4">[id number]</td><td ID="MedicationNpid_4">[id number]</td><td ID="MedicationAuthorFirstName_4">Dane</td><td ID="MedicationAuthorLastName_4">Baggs</td><td ID="MedicationTaxonomyCode_4">[id number]</td><td ID="MedicationTaxonomyDesc_4">Psychiatric/Mental Health</td><td ID="MedicationPhoneNumber_4">[phone]</td> [facility] ([facility]) quetiapine 300 MG Oral Tablet quetiapine 01/06/2020 12:00:00 AM EST 300 mg completed <td ID="Medicat ionRxNorm_1">840797</td><td ID="MedicationMedication_1">quetiapine</td><td ID="MedicationRoute_1"></td><td ID="MedicationRouteConcept_1"></td><td ID="MedicationStartDate_1">01/06/2020</td><td ID="MedicationStopDate_1">01/05/2021</td><td ID="MedicationDosageFrequency_1">at bedtime</td><td ID="MedicationDuration_1">30</td><td ID="MedicationFormulaStrength_1">300 mg</td><td ID="MedicationDosageForm_1">tablet</td><td ID="MedicationDosageFormCode_1"></td><td ID="MedicationDosageDescription_1"></td><td ID="MedicationMedicationId_1">97826</td><td ID="MedicationAccount_1">[id number]</td><td ID="MedicationNpid_1">[id number]</td><td ID="MedicationAuthorFirstName_1">Dane</td><td ID="MedicationAuthorLastName_1">Loida</td><td ID="MedicationTaxonomyCode_1">[id number]</td><td ID="MedicationTaxonomyDesc_1">Psychiatric/Mental Health</td><td ID="MedicationPhoneNumber_1">[phone]</td> [facility] ([facility]) quetiapine 300 MG Oral Tablet quetiapine 01/06/2020 12:00:00 AM EST 300 mg completed <td ID="Medicat ionRxNorm_5">010458</td><td ID="MedicationMedication_5">quetiapine</td><td ID="MedicationRoute_5"></td><td ID="MedicationRouteConcept_5"></td><td ID="MedicationStartDate_5">01/06/2020</td><td ID="MedicationStopDate_5">01/05/2021</td><td ID="MedicationDosageFrequency_5">at bedtime</td><td ID="MedicationDuration_5">30</td><td ID="MedicationFormulaStrength_5">300 mg</td><td ID="MedicationDosageForm_5">tablet</td><td ID="MedicationDosageFormCode_5"></td><td ID="MedicationDosageDescription_5"></td><td ID="MedicationMedicationId_5">03344</td><td ID="MedicationAccount_5">[id number]</td><td ID="MedicationNpid_5">[id number]</td><td ID="MedicationAuthorFirstName_5">Dane</td><td ID="MedicationAuthorLastName_5">Loida</td><td ID="MedicationTaxonomyCode_5">[id number]</td><td ID="MedicationTaxonomyDesc_5">Psychiatric/Mental Health</td><td ID="MedicationPhoneNumber_5">[phone]</td> [facility] ([facility]) [facility]12/20/2019 12:00:00 AM EST mg/3.9 completed <td ID="MedicationRxNorm_3">0469103</td><td ID="MedicationMedication_3">Ari</td><td ID="MedicationRoute_3">intramuscularly</td><td ID="MedicationRouteConcept_3"></td><td ID="MedicationStartDate_3">12/20/2019</td><td ID="MedicationStopDate_3">09/12/2020</td><td ID="MedicationDosageFrequency_3"></td><td ID="MedicationDuration_3"></td><td ID="MedicationFormulaStrength_3">1,064 mg/3.9 mL</td><td ID="MedicationDosageForm_3">suspension,extended rel syring</td><td ID="MedicationDosageFormCode_3"></td><td ID="MedicationDosageDescription_3">as directed</td><td ID="MedicationMedicationId_3">[id number]</td><td ID="MedicationAccount_3">[id number]</td><td ID="MedicationNpid_3">[id number]</td><td ID="MedicationAuthorFirstName_3">Dane</td><td ID="MedicationAuthorLastName_3">Loida</td><td ID="MedicationTaxonomyCode_3">[id number]</td><td ID="MedicationTaxonomyDesc_3"> Psychiatric/Mental Health</td><td ID="MedicationPhoneNumber_3">[phone]</td> [facility] ([facility]) Trazodone Hydrochloride 50 MG Oral Tablet trazodone 2018 12:00:00 AM EDT 50 mg by mouth completed <td ID="Medic ationRxNorm_2">262211</td><td ID="MedicationMedication_2">trazodone</td><td ID="MedicationRoute_2">by mouth</td><td ID="MedicationRouteConcept_2">N62066</td><td ID="MedicationStartDate_2">06/10/2019</td><td ID="MedicationStopDate_2">09/12/2020</td><td ID="MedicationDosageFrequency_2">at bedtime</td><td ID="MedicationDuration_2"></td><td ID="MedicationFormulaStrength_2">50 mg</td><td ID="MedicationDosageForm_2">tablet</td><td ID="MedicationDosageFormCode_2"></td><td ID="MedicationDosageDescription_2"></td><td ID="MedicationMedicationId_2">85388</td><td ID="MedicationAccount_2">[id number]</td><td ID="MedicationNpid_2">[id number]</td><td ID="MedicationAuthorFirstName_2">Dane</td><td ID="MedicationAuthorLastName_2">Baggs</td><td ID="MedicationTaxonomyCode_2">[id number]</td><td ID="MedicationTaxonomyDesc_2">Psychiatric/Mental Health</td><td ID="MedicationPhoneNumber_2">[phone]</td> [facility] ([facility]) Amantadine Hydrochloride 100 MG Oral Capsule amantadine HCl 07/30/2017 12:00:00 AM EDT 100 mg by mouth completed <td ID="MedicationRxNorm_1">538120</td><td ID="MedicationMedication_1">amantadine HCl</td><td ID="MedicationRoute_1">by mouth</td><td ID="MedicationRouteConcept_1">B62613</td><td ID="MedicationStartDate_1">07/30/2017</td><td ID="MedicationStopDate_1">09/12/2020</td><td ID="MedicationDosageFrequency_1">every morning</td><td ID="MedicationDuration_1"></td><td ID="MedicationFormulaStrength_1">100 mg</td><td ID="MedicationDosageForm_1">capsule</td><td ID="MedicationDosageFormCode_1"></td><td ID="MedicationDosageDescription_1"></td><td ID="MedicationMedicationId_1">[id number]</td><td ID="MedicationAccount_1">[id number]</td><td ID="MedicationNpid_1">[id number]</td><td ID="MedicationAuthorFirstName_1">Dane</td><td ID="MedicationAuthorLastName_1">Loida</td><td ID="MedicationTaxonomyCode_1">[id number]</td><td ID="MedicationTaxonomyDesc_1">Psychiatric/Mental Health</td><td ID="MedicationPhoneNumber_1">[phone]</td> [facility] ([facility]) Insurance Providers Payer name Policy type / Coverage type Policy ID Covered republican ID Covered republican's relationship to shafer Policy Shafer Plan Information Medicaid S [id number] S [id number] Managed Care - Community Plan [facility] P [id number] S [id number] Medicaid S [id number] S [id number] [facility] I [id number] Self [id number] [facility] I [id number] Self [id number] [facility] I [id number] Self [id number] Managed Care - C Community Plan P [id number] S [id number] Medicaid S [id number] S [id number] Managed Care - UHC Community Plan P [id number] S [id number] [id number] COMMUNITY PLAN MCDHMO [id number] SP [id number] [facility] MAN CRE [id number] SP [id number] [facility]/OPT HEALTH [id number] SP [id number] SELF PAY [facility] OFFICE OF MENTAL HEALTH UNAVAILABLE S UNAVAILABLE MEDICAID [id number] S [id number] [facility] OFFICE OF MENTAL HEALTH [id number] S [id number] UNHC COMMUNITY PLAN MCDO [id number] SP [id number] [facility] OFFICE OF MENTAL HEALTH [id number] [facility] [id number] SP [id number] SELF PAY ONLY [id number] SP [id number] [facility] [id number] SP [id number] SELF PAY SP [facility]) O [id number] S [id number] [facility] [id number] SP [id number] Self Pay P UNAVAILABLE S UNAVAILA BLE [facility]) O [id number] S [id number] 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, uncomplicated F16.10 - Hallucinogen abuse, uncomplicated Diagnosis 02/27/2021 08:12:00 PM EDT [facility] F25.9 Schizoaffective disorder, unspecified F2 5.9 - Schizoaffective disorder, unspecified Diagnosis 02/27/2021 08:12:00 PM EDT [facility] Z13.9 Encounter for screening, unspecified Z13 .9 - Encounter for screening, unspecified Diagnosis 02/27/2021 08:12:00 PM EDT [facility] schizophrenia, hallucinations, substance abuse schizophrenia, hallucinations, substance abuse Diagnosis 09/22/2020 02:27:00 PM [facility] F15.20 Other stimulant dependence, uncomplicate d Stimulant Use Disorder, Moderate: Amphetamine-type substance Condition 07/29/2021 12:00:00 AM EDT [facility] ([facility]) F10.20 Alcohol dependence, uncomplicated Alcohol Use Disorder , Severe Condition 07/29/2021 12:00:00 AM EDT [facility] ([facility]) F17.200 Nicotine dependence, unspecified, uncomp licated Tobacco Use Disorder, Moderate Condition 07/29/2021 12:00:00 AM EDT [facility] ([facility]) F12.20 Cannabis dependence, uncomplicated Cannabis Use Disorder, Moderate Condition 07/29/2021 12:00:00 AM EDT [facility] ([facility]) F20.9 Schizophrenia, unspecified Schizophrenia Condition 07/29/2021 12:00:00 AM EDT [facility] ([facility]) Surgeries/Procedures Procedure Description Date Indications Data Source(s) Comprehensive medication services, per 15 minutes 07/29/2021 12:00:00 AM EDT - 07/29/2021 12:00:00 AM EDT [facility] ([facility]) Comprehensive medication services, per 15 minutes 07/29/2021 12:00:00 AM EDT [facility] ([facility]) Comprehensive medication services, per 15 minutes 06/24/2021 12:00:00 AM EDT - 06/24/2021 12:00:00 AM EDT [facility] ([facility]) Comprehensive medication services, per 15 minutes 06/24/2021 12:00:00 AM EDT [facility] ([facility]) THERAPEUTIC PROPHYLACTIC/DX INJECTION SUBQ/IM 05/27/2021 12:00:00 AM EDT - 05/27/2021 12:00:00 AM EDT [facility] ([facility]) THERAPEUTIC PROPHYLACTIC/DX INJECTION SUBQ/IM 05/27/20 12:00:00 AM EDT [facility] ([facility]) Brief Individual Psychotherapy - 30 min 05/13/2021 12:00:00 AM EDT - 05/13/2021 12:00:00 AM EDT [facility] ([facility]) Brief Individual Psychotherapy - 30 min 05/13/2021 12: 00:00 AM EDT [facility] ([facility]) Comprehensive medication services, per 15 minutes 04/04/2021 12:00:00 AM EDT - 04/04/2021 12:00:00 AM EDT [facility] ([facility]) Comprehensive medication services, per 15 minutes 04/03/2021 12:00:00 AM EDT [facility] ([facility]) OFFICE OUTPATIENT VISIT 15 MINUTES 04/03 12:00:00 AM EDT - 04/03/2021 12:00:00 AM EDT [facility] ([facility]) Psychotherapy ADD ON - 30 Minutes 04/03/2021 12:00:00 AM EDT [facility] ([facility]) OFFICE OUTPATIENT VISIT 15 MINUTES 04/03/2021 12:00:00 AM EDT [facility] ([facility]) OFFICE OUTPATIENT VISIT 15 MINUTES 03/27 12:00:00 AM EDT - 03/27/2021 12:00:00 AM EDT [facility] ([facility]) OFFICE OUTPATIENT VISIT 15 MINUTES 03/27/2021 12:00:00 AM EDT [facility] ([facility]) OFFICE OUTPATIENT VISIT 15 MINUTES 03/19 12:00:00 AM EDT - 03/19/2021 12:00:00 AM EDT [facility] ([facility]) OFFICE OUTPATIENT VISIT 15 MINUTES 03/19/2021 12:00:00 AM EDT [facility] ([facility]) OFFICE OUTPATIENT VISIT 15 MINUTES 02/12 12:00:00 AM EDT - 02/12/2021 12:00:00 AM EDT [facility] ([facility]) OFFICE OUTPATIENT VISIT 15 MINUTES 02/12/2021 12:00:00 AM EDT [facility] ([facility]) OFFICE OUTPATIENT VISIT 15 MINUTES 02/07 12:00:00 AM EDT - 02/07/2021 12:00:00 AM EDT [facility] ([facility]) OFFICE OUTPATIENT VISIT 15 MINUTES 02/07/2021 12:00:00 AM EDT [facility] ([facility]) Brief Individual Psychotherapy - 30 min 02/01/2021 12:00:00 AM EDT - 02/01/2021 12:00:00 AM EDT [facility] ([facility]) Brief Individual Psychotherapy - 30 min 02/01/2021 12: 00:00 AM EDT [facility] ([facility]) OFFICE OUTPATIENT VISIT 15 MINUTES 01/23 12:00:00 AM EDT - 01/23/2021 12:00:00 AM EDT [facility] ([facility]) OFFICE OUTPATIENT VISIT 15 MINUTES 01/23/2021 12:00:00 AM EDT [facility] ([facility]) THERAPEUTIC PROPHYLACTIC/DX INJECTION SUBQ/IM 01/23/2021 12:00:00 AM EDT - 01/23/2021 12:00:00 AM EDT [facility] ([facility]) THERAPEUTIC PROPHYLACTIC/DX INJECTION SUBQ/IM 01/24/20 12:00:00 AM EDT [facility] ([facility]) Comprehensive medication services, per 15 minutes 01/18/2021 12:00:00 AM EDT - 01/18/2021 12:00:00 AM EDT [facility] ([facility]) Comprehensive medication services, per 15 minutes 01/18/2021 12:00:00 AM EDT [facility] ([facility]) OFFICE OUTPATIENT VISIT 15 MINUTES 01/17 12:00:00 AM EDT - 01/17/2021 12:00:00 AM EDT [facility] ([facility]) OFFICE OUTPATIENT VISIT 15 MINUTES 01/17/2021 12:00:00 AM EDT [facility] ([facility]) MHC Telemed E/M Lvl 3--Est pt 01/01/2021 12:00:00 AM EST - 01/01/2021 12:00:00 AM EST [facility] ([facility]) MHC Telemed E/M Lvl 3--Est pt 01/01/2021 12:00:[address] [facility] ([facility]) THERAPEUTIC PROPHYLACTIC/DX INJECTION SUBQ/IM 12/28/2020 12:00:00 AM EST - 12/28/2020 12:00:00 AM EST [facility] ([facility]) THERAPEUTIC PROPHYLACTIC/DX INJECTION SUBQ/IM 12/28/19 12:00:00 AM EST [facility] ([facility]) MHC Telemed E/M Lvl 3--Est pt 12/20/2020 12:00:00 AM EST - 12/20/2020 12:00:00 AM EST [facility] ([facility]) MHC Telemed E/M Lvl 3--Est pt 12/20/2020 12:00:[address] [facility] ([facility]) MHC Telemed E/M Lvl 3--Est pt 12/06/2020 12:00:00 AM EST - 12/06/2020 12:00:00 AM EST [facility] ([facility]) MHC Telemed E/M Lvl 3--Est pt 12/06/2020 12:00:[address] [facility] ([facility]) Comprehensive medication services, per 15 minutes 11/15/2020 12:00:00 AM EST - 11/15/2020 12:00:00 AM EST [facility] ([facility]) Comprehensive medication services, per 15 minutes 11/15/2020 12:00:00 AM EST [facility] ([facility]) OFFICE OUTPATIENT VISIT 15 MINUTES 11/15 12:00:00 AM EST - 11/15/2020 12:00:00 AM EST [facility] ([facility]) OFFICE OUTPATIENT VISIT 15 MINUTES 11/15/2020 12:00:00 AM EST [facility] ([facility]) THERAPEUTIC PROPHYLACTIC/DX INJECTION SUBQ/IM 10/18/2020 12:00:00 AM EST - 10/18/2020 12:00:00 AM EST [facility] ([facility]) THERAPEUTIC PROPHYLACTIC/DX INJECTION SUBQ/IM 10/18/20 20 12:00:00 AM EST [facility] ([facility]) THERAPEUTIC PROPHYLACTIC/DX INJECTION SUBQ/IM 10/15/2020 12:00:00 AM EST - 10/15/2020 12:00:00 AM EST [facility] ([facility]) THERAPEUTIC PROPHYLACTIC/DX INJECTION SUBQ/IM 10/15/20 20 12:00:00 AM EST [facility] ([facility]) THERAPEUTIC PROPHYLACTIC/DX INJECTION SUBQ/IM 10/04/2020 12:00:00 AM EST - 10/04/2020 12:00:00 AM EST [facility] ([facility]) THERAPEUTIC PROPHYLACTIC/DX INJECTION SUBQ/IM 10/04/20 20 12:00:00 AM EST [facility] ([facility]) OFFICE OUTPATIENT VISIT 15 MINUTES 10/04 12:00:00 AM EST - 10/04/2020 12:00:00 AM EST [facility] ([facility]) OFFICE OUTPATIENT VISIT 15 MINUTES 10/04/2020 12:00:00 AM EST [facility] ([facility]) OFFICE OUTPATIENT VISIT 15 MINUTES 09/12 12:00:00 AM EST - 09/12/2020 12:00:00 AM EST [facility] ([facility]) OFFICE OUTPATIENT VISIT 15 MINUTES 09/12/2020 12:00:00 AM EST [facility] ([facility]) THERAPEUTIC PROPHYLACTIC/DX INJECTION SUBQ/IM 09/12/2020 12:00:00 AM EST - 09/12/2020 12:00:00 AM EST [facility] ([facility]) THERAPEUTIC PROPHYLACTIC/DX INJECTION SUBQ/IM 09/12/20 20 12:00:00 AM EST [facility] ([facility]) OFFICE OUTPATIENT VISIT 15 MINUTES 08/10 12:00:00 AM EDT - 08/10/2020 12:00:00 AM EDT [facility] ([facility]) OFFICE OUTPATIENT VISIT 15 MINUTES 08/10/2020 12:00:00 AM EDT [facility] ([facility]) THERAPEUTIC PROPHYLACTIC/DX INJECTION SUBQ/IM 07/13/2020 12:00:00 AM EDT - 07/13/2020 12:00:00 AM EDT [facility] ([facility]) THERAPEUTIC PROPHYLACTIC/DX INJECTION SUBQ/IM 07/13/20 20 12:00:00 AM EDT [facility] ([facility]) Results ID Date Data Source [id number] 07/19/2021 10:40:00 AM EDT [facility] Name Value Range Interpretation Code Description Data Michelle rce(s) Supporting Document(s) SARS coronavirus 2 RNA [Presence] in Res piratory specimen by OMI with probe detection NEGATIVE [facility] This lab was ordered by [facility] a nd reported by [facility]. ID Date Data Source [id number] 07/19/2021 09:50:00 AM EDT [facility] Name Value Range Interpretation Code Description Data Michelle rce(s) Supporting Document(s) SARS COVID ANTIGEN NEGATIVE [facility] This lab was ordered by [facility] a nd reported by [facility]. ID Date Data Source [id number] 06/04/2021 08:17:00 PM EDT [facility] Name Value Range Interpretation Code Description Data Michelle rce(s) Supporting Document(s) SARS coronavirus 2 RNA [Presence] in Res piratory specimen by OMI with probe detection NEGATIVE [facility] This lab was ordered by [facility] a nd reported by [facility]. ID Date Data Source [id number] 05/01/2021 01:57:00 PM EDT [facility] Name Value Range Interpretation Code Description Data Michelle rce(s) Supporting Document(s) SARS coronavirus 2 RNA [Presence] in Res piratory specimen by OMI with probe detection NEGATIVE [facility] This lab was ordered by [facility] a nd reported by [facility]. ID Date Data Source [id number] 04/19/2021 06:29:00 AM EDT [facility] Name Value Range Interpretation Code Description Data Michelle rce(s) Supporting Document(s) SARS coronavirus 2 RNA [Presence] in Res piratory specimen by OMI with probe detection NEGATIVE [facility] This lab was ordered by [facility] a nd reported by [facility]. ID Date Data Source [id number] 04/17/2021 05:50:00 PM EDT [facility] Name Value Range Interpretation Code Description Data Michelle rce(s) Supporting Document(s) SARS-CoV-2 (COVID-19) RNA [Presence] in Respiratory specimen by OMI with probe detection Not Detected [facility] This lab was ordered by [facility] and reported by [facility]. ID Date Data Source [id number] 02/28/2021 04:53:00 [place] [address] HEALTH INFORMATION MANAGEMENT History and Physical Report : [id number] Signed Patient: Gabo Parra Acct:[id number] Unit: Low [id number] : 1980 Loc: [facility] Room/Bed: 820-B Age/Sex: 40 / M [...] charges for this visit?: Yes Inpt Consult [id number] Cons Level 1: Yes Signed By:Rambo Summers <<Signature on File>> Signed Date/Time: 02/28/21 8671 Co-Signer: Leonel Hubbard MD Co-Signed Date/Time: 02/28/21 9306 Initializing User: Rambo Summers NP 02/28/211652 52 52 Name Value Range Interpretation Code Description Data Michelle rce(s) Supporting Document(s) ID Date Data Source [id number] 02/28/2021 10:45:00 AM EDT [facility] [address] [place] [address] HEALTH INFORMATION MANAGEMENT [facility] Psychosocial Summary : [id number] Signed Patient: Gabo Parra Acct:[id number] Unit: M [id number] : 1980 Loc: [facility] Room/Bed: 820-B Age/Sex: 40 / M ADM Date: 02/27/21 cc: General/History - Presenting Problem Presenting Problem: Social Summary/Discharge plan Presenting Problem Gabo is a40 yo AAM, extensive psych hx, also problems with substance abuse admitted on a transfer from [facility] ER brought in there by his CW as pt was feeling depressed, suicidal, also hallucinating and after abusing drugs History. tates was partially complaint with meds. Not able to name his psychiatrist in [place], not able to name the therapist. Gives h/o 5 to 6 inpt psych txs, last one few months ago, "I can't remember the place, they send me from [facility]. " Also, h'o inpt psych tx at [facility]. H/o self harm time, tried to hand [...] Person?: No Are you part of any sabianism/spirtual community?: Yes ([facility] ) - Current Living/Relationship History Current Living Arrangement: House Who Do You Live With?: Mother. OK to Return Home: Yes Weapons in household: No Currently in a Relationship?: No Ever Been ?: No Any Children?: 2 - Family History Where Were You Born/Raised[place] Who Was in Home?: Mother, Father How [...] Reducing Risk: Complies with Tx/Meds, Future Oriented, Caodaism Beliefs Mental Status Treatment - Mental Status [...] rce(s) Supporting Document(s) ID Date Data Source [id number] 02/27/2021 04:28:00 PM EDT [facility] Name Value Range Interpretation Code Description Data Michelle rce(s) Supporting Document(s) SARS coronavirus 2 RNA [Presence] in Res piratory specimen by OMI with probe detection NEGATIVE [facility] This lab was ordered by [facility] a nd reported by [facility]. ID Date Data Source [id number] 01/23/2021 01:03:00 AM EDT [facility] Name Value Range Interpretation Code Description Data Michelle rce(s) Supporting Document(s) SARS coronavirus 2 RNA [Presence] in Res piratory specimen by OMI with probe detection NEGATIVE [facility] This lab was ordered by [facility] a nd reported by [facility]. ID Date Data Source [id number] 10/17/2020 12:19:00 AM EST [facility] Name Value Range Interpretation Code Description Data Michelle rce(s) Supporting Document(s) SARS coronavirus 2 RNA [Presence] in Res piratory specimen by OMI with probe detection [facility] This lab was ordered by [facility] a nd reported by [facility]. Procedure Social History Code Duration Value Status Description Data Source(s ) Smoking 07/29/2021 12:00:00 AM EDT Unknown if ever smoked comp leted Unknown if ever smoked [facility] ([facility]) Smoking 06/24/2021 12:00:00 AM EDT Unknown if ever smoked comp leted Unknown if ever smoked [facility] ([facility]) Smoking 05/27/2021 12:00:00 AM EDT Unknown if ever smoked comp leted Unknown if ever smoked [facility] ([facility]) Smoking 05/13/2021 12:00:00 AM EDT Unknown if ever smoked comp leted Unknown if ever smoked [facility] ([facility]) Smoking 04/04/2021 12:00:00 AM EDT Unknown if ever smoked comp leted Unknown if ever smoked [facility] ([facility]) Smoking 04/03/2021 12:00:00 AM EDT Unknown if ever smoked comp leted Unknown if ever smoked [facility] ([facility]) Smoking 03/27/2021 12:00:00 AM EDT Unknown if ever smoked comp leted Unknown if ever smoked [facility] ([facility]) Smoking 03/19/2021 12:00:00 AM EDT Unknown if ever smoked comp leted Unknown if ever smoked [facility] ([facility]) Smoking 02/12/2021 12:00:00 AM EDT Unknown if ever smoked comp leted Unknown if ever smoked [facility] ([facility]) Smoking 02/07/2021 12:00:00 AM EDT Unknown if ever smoked comp leted Unknown if ever smoked [facility] ([facility]) Smoking 02/01/2021 12:00:00 AM EDT Unknown if ever smoked comp leted Unknown if ever smoked [facility] ([facility]) Smoking 01/23/2021 12:00:00 AM EDT Unknown if ever smoked comp leted Unknown if ever smoked [facility] ([facility]) Smoking 01/18/2021 12:00:00 AM EDT Unknown if ever smoked comp leted Unknown if ever smoked [facility] ([facility]) Smoking 01/17/2021 12:00:00 AM EDT Unknown if ever smoked comp leted Unknown if ever smoked [facility] ([facility]) Smoking 01/01/2021 12:00:00 AM EST Unknown if ever smoked comp leted Unknown if ever smoked [facility] ([facility]) Smoking 12/28/2020 12:00:00 AM EST Unknown if ever smoked comp leted Unknown if ever smoked [facility] ([facility]) Smoking 12/20/2020 12:00:00 AM EST Unknown if ever smoked comp leted Unknown if ever smoked [facility] ([facility]) Smoking 12/06/2020 12:00:00 AM EST Unknown if ever smoked comp leted Unknown if ever smoked [facility] ([facility]) Smoking 11/15/2020 12:00:00 AM EST Unknown if ever smoked comp leted Unknown if ever smoked [facility] ([facility]) Smoking 10/18/2020 12:00:00 AM EST Unknown if ever smoked comp leted Unknown if ever smoked [facility] ([facility]) Smoking 10/15/2020 12:00:00 AM EST Unknown if ever smoked comp leted Unknown if ever smoked [facility] ([facility]) Smoking 10/04/2020 12:00:00 AM EST Unknown if ever smoked comp leted Unknown if ever smoked [facility] ([facility]) Smoking 09/12/2020 12:00:00 AM EST Unknown if ever smoked comp leted Unknown if ever smoked [facility] ([facility]) Smoking 08/10/2020 12:00:00 AM EDT Unknown if ever smoked comp leted Unknown if ever smoked [facility] ([facility]) Smoking 07/13/2020 12:00:00 AM EDT Unknown if ever smoked comp leted Unknown if ever smoked [facility] ([facility]) Vital Signs ID Date Data Source UNK Name Value Range Interpretation Code Description Data Source(s) Body height 0.00 in Normal (applies to non-numeric resu lts) 0.00 in [facility] ([facility]) Body weight Measured 0.00 lbs Normal (applies to n on-numeric results) 0.00 lbs [facility] ([facility]) Body mass index (BMI) [Ratio] 0.00 kg/m2 No rmal (applies to non-numeric results) 0.00 kg/m2 [facility] ([facility]) Systolic blood pressure 0 mm[Hg] Normal (applies t o non-numeric results) 0 mm[Hg] [facility] ([facility]) Diastolic blood pressure 0 mm[Hg] Normal (applies to non-numeric results) 0 mm[Hg] [facility] ([facility]) Body height 0.00 in Normal (applies to non-numeric resu lts) 0.00 in [facility] ([facility]) Body weight Measured 0.00 lbs Normal (applies to n on-numeric results) 0.00 lbs [facility] ([facility]) Body mass index (BMI) [Ratio] 0.00 kg/m2 No rmal (applies to non-numeric results) 0.00 kg/m2 [facility] ([facility]) Systolic blood pressure 0 mm[Hg] Normal (applies t o non-numeric results) 0 mm[Hg] [facility] ([facility]) Diastolic blood pressure 0 mm[Hg] Normal (applies to non-numeric results) 0 [facility]Hg] [facility] Body height 0.00 in Normal (applies to non-numeric resu lts) [facility] Body weight Measured 0.00 lbs Normal (applies to n on-numeric results) 0.00 lbs [facility] ([facility]) Body mass index (BMI) [Ratio] 0.00 kg/m2 No rmal (applies to non-numeric results) 0.00 kg/m2 [facility] ([facility]) Systolic blood pressure 0 mm[Hg] Normal (applies t o non-numeric results) 0 mm[Hg] [facility] ([facility]) Diastolic blood pressure 0 mm[Hg] Normal (applies to non-numeric results) 0 mm[Hg] [facility] ([facility]) Body height 0.00 in Normal (applies to non-numeric resu lts) 0.00 in [facility] ([facility]) Body weight Measured 0.00 lbs Normal (applies to n on-numeric results) 0.00 lbs [facility] ([facility]) Body mass index (BMI) [Ratio] 0.00 kg/m2 No rmal (applies to non-numeric results) 0.00 kg/m2 [facility] ([facility]) Systolic blood pressure 0 mm[Hg] Normal (applies t o non-numeric results) 0 mm[Hg] [facility] ([facility]) Diastolic blood pressure 0 mm[Hg] Normal (applies to non-numeric results) 0 mm[Hg] [facility] ([facility]) ID Date Data Source [id number] 09/22/2020 02:27:59 PM [facility] Name Value Range Interpretation Code Description Data Source(s) TRANSFER FROM [facility]
[2021-08-15 10:41] LABS: HEMATOCRIT 41.4 % (42.0-52.0); HEMOGLOBIN 13.6 g/dl (13.5-17.5); MEAN CORPUSCULAR HEMOGLOBIN 30.6 pg (27.0-33.0); MEAN CORPUSCULAR HGB CONC 32.9 g/dl (32.0-36.5); PLATELET COUNT, AUTOMATED 280 10^3/uL (150-450); RED BLOOD COUNT 4.45 10^6/uL (4.30-6.10); WHITE BLOOD COUNT 8.6 10^3/uL (4.0-10.0)
[2021-08-15 11:11] LABS: ACETAMINOPHEN LEVEL < 2.0 UG/ML (10.0-30.0); ALBUMIN 3.1 GM/DL (3.2-5.2); ALT/SGPT 135 U/L (12-78); BILIRUBIN,DIRECT 0.2 MG/DL (0.0-0.2); BILIRUBIN,TOTAL 0.5 MG/DL (0.2-1.0); BLOOD UREA NITROGEN 11 MG/DL (7-18); CALCIUM LEVEL 8.9 MG/DL (8.5-10.1); CARBON DIOXIDE LEVEL 32 MEQ/L (21-32); CHLORIDE LEVEL 107 MEQ/L (98-107); CREATININE FOR GFR 0.92 MG/DL (0.70-1.30); ETHYL ALCOHOL (ETHANOL) < 0.003 % (0.000-0.010); GLOMERULAR FILTRATION RATE > 60.0 (>60); GLUCOSE, FASTING 83 MG/DL (70-100); POTASSIUM SERUM 3.9 MEQ/L (3.5-5.1); SODIUM LEVEL 140 MEQ/L (136-145); THYROID STIMULATING HORMONE 0.733 uIU/ML (0.358-3.740); TOTAL PROTEIN 6.8 GM/DL (6.4-8.2)
[2021-08-15 13:14] LABS: AMPHETAMINES LEVEL URINE NEGATIVE (NEGATIVE); BARBITURATES URINE NEGATIVE (NEGATIVE); BENZODIAZEPINES URINE NEGATIVE (NEGATIVE); CANNABINOIDS URINE POSITIVE (NEGATIVE); COCAINE METABOLITE URINE NEGATIVE (NEGATIVE); METHADONE URINE NEGATIVE (NEGATIVE); OPIATES URINE NEGATIVE (NEGATIVE); PHENCYCLIDINE URINE NEGATIVE (NEGATIVE)
[2021-08-15 16:07] VITALS: BP 138/84
== END 2021-08-15 16:13 | disposition home or self-care (01) ==
LOC: M ED 08:59
DX: F19.120 Other psychoactive substance abuse with intoxication, uncomplicated (principal); F25.9 Schizoaffective disorder, unspecified; Z79.899 Other long term (current) drug therapy

== ENCOUNTER 2021-08-16 04:08 | Emergency (ER) | payer OTHER ==
[~2021-08-16] VITALS: Ht 175.3 cm; Wt 71.6 kg
--- OUTSIDE RECORDS SUMMARY | 2021-08-16 04:16 | CCD ---
Author Author [facility] Organization [facility] Address Unknown Phone Unavailable Support Name Relationship Address Phone Hudson GUTIERREZ, Pasha Next Of Kin [address] [place] [address] Diamante Costa Next Of Kin [address] [place] [address] Dwain Joseph DO Next Of Kin [address] [place] [address] Cameron Bingham MD Next Of Kin [address] [place] [address] SELFGARY Next Of Kin [address] [place] [address] YONI JACK Next Of Kin [address] [place] [address] CORRECTIONAL, [place] Next Of Kin [address] [place] [address] Monique Conklin MD Next Of Kin [address] [place] [phone] YONI CALHOUN Next Of Kin [address] [place] [address] Isabelle Manning Next Of Kin [address] [place] [address] Pat Gallo DO Next Of Kin [address] [place] [address] DISABLED Next Of Kin Unknown Unavailable [place] Self Next Of Kin [address] [place] [phone] SELF, JUNIOR Next Of Kin [address] [place] [address] UE Next Of Kin Unknown Unavailable SIMON WALL Next Of Kin [address] [place] [address] SELF, JUNIOR ECON [address] [place] [address] Unavailable Care Team Providers Care Drier Operator Name Role Phone Farden, M Rambo Unavailable [...] Unavailable Gina Nash Unavailable AMILCAR, H ANSELMO OXIDATION OPERATOR Unavailable Unavailable AMILCAR, H ANSELMO OXIDATION OPERATOR Unavailable Unavailable AMILCAR, H ANSELMO OXIDATION OPERATOR Unavailable Unavailable AMILCAR, H ANSELMO OXIDATION OPERATOR Unavailable Unavailable AMILCAR, H ANSELMO OXIDATION OPERATOR Unavailable Unavailable AMILCAR, H ANSELMO OXIDATION OPERATOR Unavailable Unavailable AMILCAR, H ANSELMO OXIDATION OPERATOR Unavailable Unavailable AMILCAR, H ANSELMO OXIDATION OPERATOR Unavailable Unavailable AMILCAR, H ANSELMO OXIDATION OPERATOR Unavailable Unavailable Jossie Marcelino Unavailable Rotella, Jossy [...] Unavailable Solomon Treviño MD Unavailable Unavailable Solomon rTeviño MD Unavailable Unavailable Solomon Treviño MD Unavailable Unavailable Solomon Treviño MD Unavailable Unavailable Solomon Treviño MD Unavailable Unavailable Solomon Treviño MD Unavailable Unavailable Solomon Treviño MD Unavailable Unavailable Solomon Treivño MD Unavailable Unavailable Solomon Treviño MD Unavailable [...] Unavailable Unavailable Solomon Treviño MD Unavailable Unavailable Soolmon Treviño MD Unavailable Unavailable Solomon Treviño MD [...] is protected by Article 27-F of the [facility] Public Health law. If you continue you may have access to information: Regarding HIV / AIDS; Provided by facilities licensed or operated by the [facility] Office of Mental Health; or Provided by the [facility] Office for People With Developmental Disabilities. If such information is present, then the following [facility] mandated warning applies: This information has been [...] law may result in a fine or long term sentence or both. A general authorization for the release of medical or other information is NOT sufficient authorization for further disc losure. Allergies and Adverse Reactions Type Description Substance Reaction Status Data Source(s ) Drug allergy No Known Allergies No Known Allergies [facility] Propensity to adverse reactions NO KNOWN ALLERGIES NO KNOWN ALLERGIES [facility] Encounters Encounter Providers Location Date Indications Data Source(s ) Injectable Medication Administration w/ Monitoring & E ducation Attender: Pammurphy Isbellpo [facility] 07/29/2021 02:30:00 AM EDT - 07/29/2021 02:30:00 AM EDT [facility] ([facility]) Attender: Pam Juarez 07/29/2021 12:00:00 AM EDT [facility] ([facility]) Injectable Medication Administration w/ Monitoring & E ducation Attender: Thalia Carreno [facility] 06/24/2021 10:45:00 AM EDT - 06/24/2021 10:45:00 AM EDT [facility] ([facility]) Attender: Thalia Carreno 06/24/2021 12:00:00 AM EDT [facility] ([facility]) Injectable Psychotropic Medication Administration (Inj ection Only) Attender: Thalia Carreno [facility] 05/27/2021 08:15:00 AM EDT - 05/27/2021 08:15:00 AM EDT [facility] ([facility]) Attender: Thalia Carreno 05/27/2021 12:00:00 AM EDT [facility] ([facility]) Brief Individual Psychotherapy - 30 min Attender: Gina yun [facility] 05/13/2021 08:30:00 AM EDT - 05/13/2021 08:30:00 AM EDT [facility] ([facility]) Attender: Gina Nash 05/13/2021 12:00:00 AM EDT [facility] ([facility]) Attender: Pam Juarez 04/04/2021 12:00:00 AM EDT [facility] ([facility]) Injectable Medication Administration w/ Monitoring & E ducation Attender: Pam Borjapo [facility] Maria Alejandra 04/03/2021 09:00:00 AM EDT - 04/03/2021 09:00:00 AM EDT [facility] ([facility]) Outpatient Attender: ANSELMO APONTE NP [facility] Mike garcía 04/03/2021 08:30:00 AM EDT - 04/03/2021 08:30:00 AM EDT [facility] ([facility]) Attender: ANSELMO APONTE NP 04/03/2021 12:00:00 AM EDT [facility] ([facility]) Outpatient Attender: ANSELMO APONTE NP [facility] Mike garcía 03/27/2021 11:00:00 AM EDT - 03/27/2021 11:00:00 AM EDT [facility] ([facility]) Attender: ANSELMO APONTE NP 03/27/2021 12:00:00 AM EDT [facility] ([facility]) Outpatient Attender: ANSELMO APONTE NP [facility] Mike garcía 03/19/2021 03:00:00 AM EDT - 03/19/2021 03:00:00 AM EDT [facility] ([facility]) Attender: ANSELMO APONTE NP 03/19/2021 12:00:00 AM EDT [facility] ([facility]) Inpatient Attender: JONNATHAN Marieeitter: JONNATHAN TRACY MD 02/27/2021 08:12:00 PM EDT - 03/08/2021 03:27:00 PM EDT Suicidal Ideation / Homicidal Ideation [facility] Suicidal Ideation / Homicidal Ideation Patient discharged. Outpatient Attender: JONNATHAN Bonilla tter: JONNATHAN TRACY MDConsultant: JONNATHAN TRACY MD 02/27/2021 08:12:00 PM EDT Suicidal Ideation / H omicidal Ideation [facility] Suicidal Ideation / Homicidal Ideation Outpatient Attender: JONNATHAN TRACY MDAdmi tter: JONNATHAN MAIAL MDConsultant: JONNATHAN TRACY MD 02/27/2021 08:12:00 PM EDT Suicidal Ideation [facility] Homicidal Ideation Outpatient Attender: Castro ColonAdmitter : JONNATHAN MAIAL MDConsultant: JONNATHAN TRACY MD 02/27/2021 08:12:00 PM EDT Suicidal Ideation / [facility] Suicidal Ideation / Homicidal Ideation Outpatient Attender: JONNATHAN TRACY MDAdmi tter: JONNATHAN TRACY MDConsultant: JONNATHAN TRACY MD 02/27/2021 08:12:00 PM EDT Suicidal Ideation / [facility] Suicidal Ideation / Homicidal Ideation Outpatient Attender: JONNATHAN TRACY MDAdmi tter: JONNATHAN TRACY MDConsultant: JONNATHAN TRACY MD 02/27/2021 08:12:00 PM EDT Suicidal Ideation / [facility]idal [facility] Suicidal Ideation / Homicidal Ideation Outpatient Attender: JONNATHAN TRACY MDAdmi tter: JONNATHAN TRACY MDConsultant: JONNATHAN TRACY MD 02/27/2021 08:12:00 PM EDT Suicidal Ideation / [facility]micidal [facility]ation [facility] Suicidal Ideation / Homicidal Ideation Outpatient Attender: Castro ColonAdmitter : JONNATHAN TRACY MDConsultant: JONNATHAN TRACY MD 02/27/2021 08:12:00 PM EDT Suicidal Ideation / [facility]micidal Ideation [facility] Suicidal Ideation / Homicidal Ideation Outpatient Attender: Castro ColonAdmitter : JONNATHAN TRACY MDConsultant: JONNATHAN TRACY MD 02/27/2021 08:12:00 PM EDT Suicidal Ideation / [facility]micidal Ideation [facility] Suicidal Ideation / Homicidal Ideation Outpatient Attender: JONNATHAN TRACY MDAdmi tter: JONNATHAN TRACY MDConsultant: JONNATHAN TRACY MD 02/27/2021 08:12:00 PM EDT Suicidal Ideation / H omicidal Ideation [facility] Suicidal Ideation / Homicidal Ideation Outpatient Attender: Rambo Pedroza mitter: JONNATHAN TRACY MDConsultant: JONNATHAN TRACY MD 02/27/2021 08:12:00 PM EDT Suicidal Ideation / H omicidal Ideation [facility] Suicidal Ideation / Homicidal Ideation Outpatient Attender: ANSELMO APONTE NP [facility] 02/12/2021 10:30:00 AM EDT - 02/12/2021 10:30:00 AM EDT [facility] ([facility]) Attender: ANSELMO APONTE NP 02/12/2021 12:00:00 AM EDT [facility] ([facility]) Outpatient Attender: ANSELMO APONTE NP [facility] 02/07/2021 11:30:00 AM EDT - 02/07/2021 11:30:00 AM EDT [facility] ([facility]) Attender: ANSELMO APONTE NP 02/07/2021 12:00:00 AM EDT [facility] ([facility]) Brief Individual Psychotherapy - 30 min Attender: Gina yun [facility] 02/01/2021 02:00:00 AM EDT - 02/01/2021 02:00:00 AM EDT [facility] ([facility]) Attender: Gina Nash 02/01/2021 12:00:00 AM EDT [facility] ([facility]) Injectable Psychotropic Medication Administration (Inj ection Only) Attender: Thalia Carreno [facility] 01/23/2021 10:00:00 AM EDT - 01/23/2021 10:00:00 AM EDT [facility] ([facility]) Outpatient Attender: ANSELMO APONTE NP [facility] 01/23/2021 09:15:00 AM EDT - 01/23/2021 09:15:00 AM EDT [facility] ([facility]) Attender: ANSELMO APONTE NP 01/23/2021 12:00:00 AM EDT [facility] ([facility]) Attender: Thalia Carreno 01/23/2021 12:00:00 AM EDT [facility] ([facility]) Injectable Medication Administration w/ Monitoring & E ducation Attender: Pam Juarez [facility] Alf 01/18/2021 11:00:00 AM EDT - 01/18/2021 11:00:00 AM EDT [facility] ([facility]) Attender: Pam Juarez 01/18/2021 12:00:00 AM EDT [facility] ([facility]) Outpatient Attender: ANSELMO APONTE NP [facility] raquel 01/17/2021 09:00:00 AM EDT - 01/17/2021 09:00:00 AM EDT [facility] ([facility]) Attender: ANSELMO APONTE NP 01/17/2021 12:00:00 AM EDT [facility] ([facility]) Outpatient Attender: ANSELMO APONTE NP [facility] raquel 01/01/2021 02:30:00 AM EST - 01/01/2021 02:30:00 AM EST [facility] ([facility]) Attender: ANSELMO APONTE NP 01/01/2021 12:00:00 AM EST [facility] ([facility]) Injectable Psychotropic Medication Administration (Inj ection Only) Attender: Jossie Marcelino [facility] Alf 12/28/2020 10:30:00 AM EST - 12/28/2020 10:30:00 AM EST [facility] ([facility]) Attender: Jossie Marcelino 12/28/2020 12:00:00 AM EST [facility] ([facility]) Outpatient Attender: Victorino Escobar MD [facility] Mike raquel 12/20/2020 09:30:00 AM EST - 12/20/2020 09:30:00 AM EST [facility] ([facility]) Attender: Victorino Escobar MD 12/20/2020 12:00:00 AM EST [facility] ([facility]) Outpatient Attender: Victorino Escobar MD [facility] Mike garcía 12/06/2020 12:30:00 PM EST - 12/06/2020 12:30:00 PM EST [facility] ([facility]) Attender: Victorino Escobar MD 12/06/2020 12:00:00 AM EST [facility] ([facility]) Injectable Medication Administration w/ Monitoring & E ducation Attender: ORGANIZATION NPI ALIASES [facility] 11/15/2020 11:15: 00 AM EST - 11/15/2020 11:15:00 AM EST [facility] ([facility]) Outpatient Attender: Victorino Escobar MD [facility] Mike garcía 11/15/2020 11:00:00 AM EST - 11/15/2020 11:00:00 AM EST [facility] ([facility]) Attender: ORGANIZATION NPI ALIASES * 11/15/2020 12:00:00 AM EST [facility] ([facility]) Attender: Victorino Escobar MD 11/15/2020 12:00:00 AM EST [facility] ([facility]) Injectable Psychotropic Medication Administration (Inj ection Only) Attender: Jossy Mejia [facility] 10/18/2020 10:30:00 AM EST - 10/18/2020 10:30:00 AM EST [facility] ([facility]) Attender: Jossy Mejia 10/18/2020 12:00:00 AM EST [facility] ([facility]) Injectable Psychotropic Medication Administration (Inj ection Only) Attender: Jossy Mejia [facility] 10/15/2020 11:00:00 AM EST - 10/15/2020 11:00:00 AM EST [facility] ([facility]) Attender: Jossy Mejia 10/15/2020 12:00:00 AM EST [facility] ([facility]) Injectable Psychotropic Medication Administration (Inj ection Only) Attender: Jossy Mejia [facility] 10/04/2020 10:30:00 AM EST - 10/04/2020 10:30:00 AM EST [facility] ([facility]) Outpatient Attender: KALLI MOLINAURSZULA [facility] J ail 10/04/2020 10:00:00 AM EST - 10/04/2020 10:00:00 AM EST [facility] ([facility]) Attender: Jossy Mejia 10/04/2020 12:00:00 AM EST [facility] ([facility]) Attender: KALLI MOLINAURSZULA 10/04/2020 12:00: 00 AM EST [facility] ([facility]) Outpatient Referrer: [facility] [place] 09/22/2020 0 2:27:00 PM EST schizophrenia, hallucinations, substance abuse [facility] schizophrenia, hallucinations, substance abuse Injectable Psychotropic Medication Administration (Inj ection Only) Attender: Jossy Mejia [facility] 09/12/2020 09:30:00 AM EST - 09/12/2020 09:30:00 AM EST [facility] ([facility]) Outpatient Attender: KALLI MOLINAURSZULA [facility] 09/12/2020 09:00:00 AM EST - 09/12/2020 09:00:00 AM EST [facility] ([facility]) Attender: KALLI VALLEJO 09/12/2020 12:00: 00 AM EST [facility] ([facility]) Attender: Jossy Mejia 09/12/2020 12:00:00 AM EST [facility] ([facility]) Outpatient Attender: KALLI MOLINAURSZULA [facility] ail 08/10/2020 02:00:00 AM EDT - 08/10/2020 02:00:00 AM EDT [facility] ([facility]) Attender: KALLI MOLINAURSZULA 08/10/2020 12:00: 00 AM EDT [facility] ([facility]) Injectable Psychotropic Medication Administration (Inj ection Only) Attender: Jossy Mejia [facility] Alf 07/13/2020 02:00:00 AM EDT - 07/13/2020 02:00:00 AM EDT [facility] ([facility]) Attender: Jossy Mejia 07/13/2020 12:00:00 AM EDT [facility] ([facility]) Outpatient Attender: Pasha Treviño MD 07/12/2020 02:46:50 PM EDT [facility] Outpatient Attender: Pasha Treviño MD 06/21/2020 10:56:00 AM EDT [facility] Functional Status Medications Medication Brand Name Start Date Product Form Dose Route Admi nistrative Instructions Pharmacy Instructions Status Indications Reaction Description Data Source(s) Prazosin 1 MG Oral Capsule prazosin 07/10/2021 12:00:00 AM EDT 1 mg by mouth completed <td ID="Medicat ionRxNorm_4">075477</td><td ID="MedicationMedication_4">prazosin</td><td ID="MedicationRoute_4">by mouth</td><td ID="MedicationRouteConcept_4">J21037</td><td ID="MedicationStartDate_4">07/10/2021</td><td ID="MedicationStopDate_4">08/09/2021</td><td ID="MedicationDosageFrequency_4">at bedtime</td><td ID="MedicationDuration_4">30</td><td ID="MedicationFormulaStrength_4">1 mg</td><td ID="MedicationDosageForm_4">capsule</td><td ID="MedicationDosageFormCode_4"></td><td ID="MedicationDosageDescription_4"></td><td ID="MedicationMedicationId_4">[id number]</td><td ID="MedicationAccount_4">[id number]</td><td ID="MedicationNpid_4">[id number]</td><td ID="MedicationAuthorFirstName_4">Anselmo</td><td ID="MedicationAuthorLastName_4">Amilcar</td><td ID="MedicationTaxonomyCode_4">[id number]</td><td ID="MedicationTaxonomyDesc_4">Nurse Practitioner</td><td ID="MedicationPhoneNumber_4">[phone]</td> [facility] olanzapine 5 MG Oral Tablet [Zyprexa] Zyprexa 05/23/2021 12:00:00 AM EDT 5 mg by mouth completed <td ID="Medica tionRxNorm_2">322042</td><td ID="MedicationMedication_2">Zyprexa</td><td ID="MedicationRoute_2">by mouth</td><td ID="MedicationRouteConcept_2">Q41063</td><td ID="MedicationStartDate_2">05/23/2021</td><td ID="MedicationStopDate_2">08/09/2021</td><td ID="MedicationDosageFrequency_2">at bedtime</td><td ID="MedicationDuration_2">30</td><td ID="MedicationFormulaStrength_2">5 mg</td><td ID="MedicationDosageForm_2">tablet</td><td ID="MedicationDosageFormCode_2"></td><td ID="MedicationDosageDescription_2"></td><td ID="MedicationMedicationId_2">[id number]</td><td ID="MedicationAccount_2">[id number]</td><td ID="MedicationNpid_2">[id number]</td><td ID="MedicationAuthorFirstName_2">Anselmo</td><td ID="MedicationAuthorLastName_2">Amilcar</td><td ID="MedicationTaxonomyCode_2">[id number]</td><td ID="MedicationTaxonomyDesc_2">Nurse Practitioner</td><td ID="MedicationPhoneNumber_2">[phone]</td> [facility] ([facility]) benztropine mesylate 1 MG Oral Tablet benztropine 05/23/2021 12:00 :00 AM EDT 1 mg by mouth completed <td ID="Me dicationRxNorm_3">541001</td><td ID="MedicationMedication_3">benztropine</td><td ID="MedicationRoute_3">by mouth</td><td ID="MedicationRouteConcept_3">H91166</td><td ID="MedicationStartDate_3">05/23/2021</td><td ID="MedicationStopDate_3">08/09/2021</td><td ID="MedicationDosageFrequency_3">at bedtime</td><td ID="MedicationDuration_3">30</td><td ID="MedicationFormulaStrength_3">1 mg</td><td ID="MedicationDosageForm_3">tablet</td><td ID="MedicationDosageFormCode_3"></td><td ID="MedicationDosageDescription_3"></td><td ID="MedicationMedicationId_3">[id number]</td><td ID="MedicationAccount_3">[id number]</td><td ID="MedicationNpid_3">[id number]</td><td ID="MedicationAuthorFirstName_3">Anselmo</td><td ID="MedicationAuthorLastName_3">Amilcar</td><td ID="MedicationTaxonomyCode_3">[id number]</td><td ID="MedicationTaxonomyDesc_3">Nurse Practitioner</td><td ID="MedicationPhoneNumber_3">[phone]</td> [facility] ([facility]) 1.5 ML paliperidone palmitate 156 MG/ML Prefilled Syri nge [Invega] Invega Sustenna 04/16/2021 12:00:00 AM EDT 234 mg/1.5 compl eted <td ID="MedicationRxNorm_1">729322</td><td ID="MedicationMedication_1">Invega Sustenna</td><td ID="MedicationRoute_1"></td><td ID="MedicationRouteConcept_1"></td><td ID="MedicationStartDate_1">04/16/2021</td><td ID="MedicationStopDate_1"></td><td ID="MedicationDosageFrequency_1"></td><td ID="MedicationDuration_1"></td><td ID="MedicationFormulaStrength_1">234 mg/1.5 mL</td><td ID="MedicationDosageForm_1">syringe</td><td ID="MedicationDosageFormCode_1"></td><td ID="MedicationDosageDescription_1"> </td><td ID="MedicationMedicationId_1">[id number]</td><td ID="MedicationAccount_1">[id number]</td><td ID="MedicationNpid_1">[id number]</td><td ID="MedicationAuthorFirstName_1">Anselmo</td><td ID="MedicationAuthorLastName_1">Amilcar</td><td ID="MedicationTaxonomyCode_1">[id number]</td><td ID="MedicationTaxonomyDesc_1">Nurse Practitioner</td><td ID="MedicationPhoneNumber_1">[phone]</td> [facility] ([facility]) 2.625 ML paliperidone palmitate 312 MG/ML Prefilled Sy ringe [Invega] Invega Trinza 04/03/2021 12:00:00 AM EDT 819 mg/2.625 compl eted <td ID="MedicationRxNorm_3">[id number]</td><td ID="MedicationMedication_3">Invega Trinza</td><td ID="MedicationRoute_3">intramuscularly</td><td ID="MedicationRouteConcept_3"></td><td ID="MedicationStartDate_3">04/03/2021</td><td ID="MedicationStopDate_3">07/02/2021</td><td ID="MedicationDosageFrequency_3">every three months</td><td ID="MedicationDuration_3">90</td><td ID="MedicationFormulaStrength_3">819 mg/2.625 mL</td><td ID="MedicationDosageForm_3">syringe</td><td ID="MedicationDosageFormCode_3"></td><td ID="MedicationDosageDescription_3"></td><td ID="MedicationMedicationId_3">[id number]</td><td ID="MedicationAccount_3">[id number]</td><td ID="MedicationNpid_3">[id number]</td><td ID="MedicationAuthorFirstName_3">Anselmo</td><td ID="MedicationAuthorLastName_3">Amilcar</td><td ID="MedicationTaxonomyCode_3">[id number]</td><td ID="MedicationTaxonomyDesc_3"> Nurse Practitioner</td><td ID="MedicationPhoneNumber_3">[phone]</td> [facility] ([facility]) 2.625 ML paliperidone palmitate 312 MG/ML Prefilled Sy ringe [Invega] Ml Roth 04/03/2021 12:00:00 AM EDT 819 mg/2.625 compl eted <td ID="MedicationRxNorm_4">[id number]</td><td ID="MedicationMedication_4">Invega Trinza</td><td ID="MedicationRoute_4">intramuscularly</td><td ID="MedicationRouteConcept_4"></td><td ID="MedicationStartDate_4">04/03/2021</td><td ID="MedicationStopDate_4">07/02/2021</td><td ID="MedicationDosageFrequency_4">every three months</td><td ID="MedicationDuration_4">90</td><td ID="MedicationFormulaStrength_4">819 mg/2.625 mL</td><td ID="MedicationDosageForm_4">syringe</td><td ID="MedicationDosageFormCode_4"></td><td ID="MedicationDosageDescription_4"></td><td ID="MedicationMedicationId_4">[id number]</td><td ID="MedicationAccount_4">[id number]</td><td ID="MedicationNpid_4">[id number]</td><td ID="MedicationAuthorFirstName_4">Anselmo</td><td ID="MedicationAuthorLastName_4">Amilcar</td><td ID="MedicationTaxonomyCode_4">[id number]</td><td ID="MedicationTaxonomyDesc_4"> Nurse Practitioner</td><td ID="MedicationPhoneNumber_4">[phone]</td> [facility] ([facility]) haloperidol decanoate haloperidol decanoate 04/03/2021 12:00:00 AM EDT 100 mg/mL completed <td ID="Me dicationRxNorm_2">7368140</td><td ID="MedicationMedication_2">haloperidol decanoate</td><td ID="MedicationRoute_2">intramuscularly</td><td ID="MedicationRouteConcept_2"> </td><td ID="MedicationStartDate_2">04/03/2021</td><td ID="MedicationStopDate_2">04/03/2021</td><td ID="MedicationDosageFrequency_2">every four weeks</td><td ID="MedicationDuration_2">28</td><td ID="MedicationFormulaStrength_2">100 mg/mL</td><td ID="MedicationDosageForm_2">solution</td><td ID="MedicationDosageFormCode_2"></td><td ID="MedicationDosageDescription_2"></td><td ID="MedicationMedicationId_2">[id number]</td><td ID="MedicationAccount_2">[id number]</td><td ID="MedicationNpid_2">[id number]</td><td ID="MedicationAuthorFirstName_2">Anselmo</td><td ID="MedicationAuthorLastName_2">Amilcar</td><td ID="MedicationTaxonomyCode_2">[id number]</td><td ID="MedicationTaxonomyDesc_2"> Nurse Practitioner</td><td ID="MedicationPhoneNumber_2">[phone]</td> [facility] ([facility]) benztropine mesylate 1 MG Oral Tablet benztropine 04/03/2021 12:00 :00 AM EDT 1 mg by mouth completed <td ID="Me dicationRxNorm_2">800840</td><td ID="MedicationMedication_2">benztropine</td><td ID="MedicationRoute_2">by mouth</td><td ID="MedicationRouteConcept_2">J09925</td><td ID="MedicationStartDate_2">04/03/2021</td><td ID="MedicationStopDate_2">05/03/2021</td><td ID="MedicationDosageFrequency_2">at bedtime</td><td ID="MedicationDuration_2">30</td><td ID="MedicationFormulaStrength_2">1 mg</td><td ID="MedicationDosageForm_2">tablet</td><td ID="MedicationDosageFormCode_2"></td><td ID="MedicationDosageDescription_2"></td><td ID="MedicationMedicationId_2">[id number]</td><td ID="MedicationAccount_2">[id number]</td><td ID="MedicationNpid_2">[id number]</td><td ID="MedicationAuthorFirstName_2">Anselmo</td><td ID="MedicationAuthorLastName_2">Amilcar</td><td ID="MedicationTaxonomyCode_2">[id number]</td><td ID="MedicationTaxonomyDesc_2">Nurse Practitioner</td><td ID="MedicationPhoneNumber_2">[phone]</td> [facility] ([facility]) olanzapine 5 MG Oral Tablet [Zyprexa] Zyprexa 04/03/2021 12:00:00 AM EDT 5 mg by mouth completed <td ID="Medica tionRxNorm_1">300610</td><td ID="MedicationMedication_1">Zyprexa</td><td ID="MedicationRoute_1">by mouth</td><td ID="MedicationRouteConcept_1">T85449</td><td ID="MedicationStartDate_1">04/03/2021</td><td ID="MedicationStopDate_1">05/03/2021</td><td ID="MedicationDosageFrequency_1">at bedtime</td><td ID="MedicationDuration_1">30</td><td ID="MedicationFormulaStrength_1">5 mg</td><td ID="MedicationDosageForm_1">tablet</td><td ID="MedicationDosageFormCode_1"></td><td ID="MedicationDosageDescription_1"></td><td ID="MedicationMedicationId_1">[id number]</td><td ID="MedicationAccount_1">[id number]</td><td ID="MedicationNpid_1">[id number]</td><td ID="MedicationAuthorFirstName_1">Anselmo</td><td ID="MedicationAuthorLastName_1">Amilcar</td><td ID="MedicationTaxonomyCode_1">[id number]</td><td ID="MedicationTaxonomyDesc_1">Nurse Practitioner</td><td ID="MedicationPhoneNumber_1">[phone]</td> [facility] 2.625 ML paliperidone palmitate 312 MG/ML Prefilled Sy ringe [Invega] Invega Trinza 04/03/2021 12:00:00 AM EDT 819 mg/2.625 compl eted <td ID="MedicationRxNorm_5">6626964</td><td ID="MedicationMedication_5">Invega Trinza</td><td ID="MedicationRoute_5">intramuscularly</td><td ID="MedicationRouteConcept_5"></td><td ID="MedicationStartDate_5">04/03/2021</td><td ID="MedicationStopDate_5">07/02/2021</td><td ID="MedicationDosageFrequency_5">every three months</td><td ID="MedicationDuration_5">90</td><td ID="MedicationFormulaStrength_5">819 mg/2.625 mL</td><td ID="MedicationDosageForm_5">syringe</td><td ID="MedicationDosageFormCode_5"></td><td ID="MedicationDosageDescription_5"></td><td ID="MedicationMedicationId_5">[id number]</td><td ID="MedicationAccount_5">[id number]</td><td ID="MedicationNpid_5">[id number]</td><td ID="MedicationAuthorFirstName_5">Anselmo</td><td ID="MedicationAuthorLastName_5">Amilcar</td><td ID="MedicationTaxonomyCode_5">[id number]</td><td ID="MedicationTaxonomyDesc_5"> Nurse Practitioner</td><td ID="MedicationPhoneNumber_5">[phone]</td> [facility] ([facility]) benztropine mesylate 1 MG Oral Tablet benztropine 04/03/2021 12:00 :00 AM EDT 1 mg by mouth completed <td ID="Me dicationRxNorm_4">904374</td><td ID="MedicationMedication_4">benztropine</td><td ID="MedicationRoute_4">by mouth</td><td ID="MedicationRouteConcept_4">C12716</td><td ID="MedicationStartDate_4">04/03/2021</td><td ID="MedicationStopDate_4">05/03/2021</td><td ID="MedicationDosageFrequency_4">at bedtime</td><td ID="MedicationDuration_4">30</td><td ID="MedicationFormulaStrength_4">1 mg</td><td ID="MedicationDosageForm_4">tablet</td><td ID="MedicationDosageFormCode_4"></td><td ID="MedicationDosageDescription_4"></td><td ID="MedicationMedicationId_4">[id number]</td><td ID="MedicationAccount_4">[id number]</td><td ID="MedicationNpid_4">[id number]</td><td ID="MedicationAuthorFirstName_4">Anselmo</td><td ID="MedicationAuthorLastName_4">Amilcar</td><td ID="MedicationTaxonomyCode_4">[id number]</td><td ID="MedicationTaxonomyDesc_4">Nurse Practitioner</td><td ID="MedicationPhoneNumber_4">[phone]</td> [facility] ([facility]) olanzapine 5 MG Oral Tablet [Zyprexa] Zyprexa 04/03/2021 12:00:00 AM EDT 5 mg by mouth completed <td ID="Medica tionRxNorm_3">406177</td><td ID="MedicationMedication_3">Zyprexa</td><td ID="MedicationRoute_3">by mouth</td><td ID="MedicationRouteConcept_3">G09084</td><td ID="MedicationStartDate_3">04/03/2021</td><td ID="MedicationStopDate_3">05/03/2021</td><td ID="MedicationDosageFrequency_3">at bedtime</td><td ID="MedicationDuration_3">30</td><td ID="MedicationFormulaStrength_3">5 mg</td><td ID="MedicationDosageForm_3">tablet</td><td ID="MedicationDosageFormCode_3"></td><td ID="MedicationDosageDescription_3"></td><td ID="MedicationMedicationId_3">[id number]</td><td ID="MedicationAccount_3">[id number]</td><td ID="MedicationNpid_3">[id number]</td><td ID="MedicationAuthorFirstName_3">Anselmo</td><td ID="MedicationAuthorLastName_3">Amilcar</td><td ID="MedicationTaxonomyCode_3">[id number]</td><td ID="MedicationTaxonomyDesc_3">Nurse Practitioner</td><td ID="MedicationPhoneNumber_3">[phone]</td> [facility] 2.625 ML paliperidone palmitate 312 MG/ML Prefilled Sy ringe [Invega] Invega Trinza 04/03/2021 12:00:00 AM EDT 819 mg/2.625 compl eted <td ID="MedicationRxNorm_2">[id number]</td><td ID="MedicationMedication_2">Invega Trinza</td><td ID="MedicationRoute_2">intramuscularly</td><td ID="MedicationRouteConcept_2"></td><td ID="MedicationStartDate_2">04/03/2021</td><td ID="MedicationStopDate_2">07/02/2021</td><td ID="MedicationDosageFrequency_2">every three months</td><td ID="MedicationDuration_2">90</td><td ID="MedicationFormulaStrength_2">819 mg/2.625 mL</td><td ID="MedicationDosageForm_2">syringe</td><td ID="MedicationDosageFormCode_2"></td><td ID="MedicationDosageDescription_2"></td><td ID="MedicationMedicationId_2">[id number]</td><td ID="MedicationAccount_2">[id number]</td><td ID="MedicationNpid_2">[id number]</td><td ID="MedicationAuthorFirstName_2">Anselmo</td><td ID="MedicationAuthorLastName_2">Amilcar</td><td ID="MedicationTaxonomyCode_2">[id number]</td><td ID="MedicationTaxonomyDesc_2"> Nurse Practitioner</td><td ID="MedicationPhoneNumber_2">[phone]</td> [facility] haloperidol decanoate haloperidol decanoate 10/04/2020 12:00:00 AM EST 100 mg/mL completed <td ID="Me dicationRxNorm_1">5030410</td><td ID="MedicationMedication_1">haloperidol decanoate</td><td ID="MedicationRoute_1">intramuscularly</td><td ID="MedicationRouteConcept_1"> </td><td ID="MedicationStartDate_1">10/04/2020</td><td ID="MedicationStopDate_1">04/03/2021</td><td ID="MedicationDosageFrequency_1">as directed</td><td ID="MedicationDuration_1">21</td><td ID="MedicationFormulaStrength_1">100 mg/mL</td><td ID="MedicationDosageForm_1">solution</td><td ID="MedicationDosageFormCode_1"></td><td ID="MedicationDosageDescription_1"></td><td ID="MedicationMedicationId_1">[id number]</td><td ID="MedicationAccount_1">[id number]</td><td ID="MedicationNpid_1">[id number]</td><td ID="MedicationAuthorFirstName_1">Victorino</td><td ID="MedicationAuthorLastName_1">Escobar</td><td ID="MedicationTaxonomyCode_1">[id number]</td><td ID="MedicationTaxonomyDesc_1"> Psychiatry</td><td ID="MedicationPhoneNumber_1">[phone]</td> [facility] ([facility] 100 mg/mL 10/02/2020 12:00:00 AM [...] 50 mg by mouth completed <td ID="Medic ationRxNorm_5">386245</td><td ID="MedicationMedication_5">trazodone</td><td ID="MedicationRoute_5">by mouth</td><td ID="MedicationRouteConcept_5">W80101</td><td ID="MedicationStartDate_5">09/12/2020</td><td ID="MedicationStopDate_5">10/12/2020</td><td ID="MedicationDosageFrequency_5">every night</td><td ID="MedicationDuration_5">30</td><td ID="MedicationFormulaStrength_5">50 mg</td><td ID="MedicationDosageForm_5">tablet</td><td ID="MedicationDosageFormCode_5"></td><td ID="MedicationDosageDescription_5"></td><td ID="MedicationMedicationId_5">[id number]</td><td ID="MedicationAccount_5">[id number]</td><td ID="MedicationNpid_5">[id number]</td><td ID="MedicationAuthorFirstName_5">Kalli</td><td ID="MedicationAuthorLastName_5">Egorho</td><td ID="MedicationTaxonomyCode_5">[id number]</td><td ID="MedicationTaxonomyDesc_5">Nurse Practitioner</td><td ID="MedicationPhoneNumber_5">[phone]</td> [facility] Trazodone Hydrochloride 50 MG Oral Tablet trazodone 2019 12:00:00 AM EST 50 mg by mouth completed <td ID="Medic ationRxNorm_1">660228</td><td ID="MedicationMedication_1">trazodone</td><td ID="MedicationRoute_1">by mouth</td><td ID="MedicationRouteConcept_1">M69024</td><td ID="MedicationStartDate_1">09/12/2020</td><td ID="MedicationStopDate_1">10/12/2020</td><td ID="MedicationDosageFrequency_1">every night</td><td ID="MedicationDuration_1">30</td><td ID="MedicationFormulaStrength_1">50 mg</td><td ID="MedicationDosageForm_1">tablet</td><td ID="MedicationDosageFormCode_1"></td><td ID="MedicationDosageDescription_1"></td><td ID="MedicationMedicationId_1">[id number]</td><td ID="MedicationAccount_1">[id number]</td><td ID="MedicationNpid_1">[id number]</td><td ID="MedicationAuthorFirstName_1">Kalli</td><td ID="MedicationAuthorLastName_1">Egorho</td><td ID="MedicationTaxonomyCode_1">[id number]</td><td ID="MedicationTaxonomyDesc_1">Nurse Practitioner</td><td ID="MedicationPhoneNumber_1">[phone]</td> [facility] ([facility]) Haldol Decanoate Haldol Decanoate 09/12/2020 12:00:00 AM EST 100 mg/mL completed <td ID="MedicationRx Norm_4">8473409</td><td ID="MedicationMedication_4">Haldol Decanoate</td><td ID="MedicationRoute_4">intramuscularly</td><td ID="MedicationRouteConcept_4"></td><td ID="MedicationStartDate_4">09/12/2020</td><td ID="MedicationStopDate_4">09/15/2020</td><td ID="MedicationDosageFrequency_4">as directed</td><td ID="MedicationDuration_4">1</td><td ID="MedicationFormulaStrength_4">100 mg/mL</td><td ID="MedicationDosageForm_4">solution</td><td ID="MedicationDosageFormCode_4"></td><td ID="MedicationDosageDescription_4"></td><td ID="MedicationMedicationId_4">[id number]</td><td ID="MedicationAccount_4">[id number]</td><td ID="MedicationNpid_4">[id number]</td><td ID="MedicationAuthorFirstName_4">Kalli</td><td ID="MedicationAuthorLastName_4">Egorho</td><td ID="MedicationTaxonomyCode_4">[id number]</td><td ID="MedicationTaxonomyDesc_4">Nurse Practitioner</td><td ID="MedicationPhoneNumber_4">[phone]</td> [facility] quetiapine 300 MG Oral Tablet quetiapine 01/06/2020 12:00:00 AM EST 300 mg completed <td ID="Medicat ionRxNorm_4">817874</td><td ID="MedicationMedication_4">quetiapine</td><td ID="MedicationRoute_4"></td><td ID="MedicationRouteConcept_4"></td><td ID="MedicationStartDate_4">01/06/2020</td><td ID="MedicationStopDate_4">01/05/2021</td><td ID="MedicationDosageFrequency_4">at bedtime</td><td ID="MedicationDuration_4">30</td><td ID="MedicationFormulaStrength_4">300 mg</td><td ID="MedicationDosageForm_4">tablet</td><td ID="MedicationDosageFormCode_4"></td><td ID="MedicationDosageDescription_4"></td><td ID="MedicationMedicationId_4">[id number]</td><td ID="MedicationAccount_4">[id number]</td><td ID="MedicationNpid_4">[id number]</td><td ID="MedicationAuthorFirstName_4">Dane</td><td ID="MedicationAuthorLastName_4">[place]</td><td ID="MedicationTaxonomyCode_4">[id number]</td><td ID="MedicationTaxonomyDesc_4">Psychiatric/Mental Health</td><td ID="MedicationPhoneNumber_4">[phone]</td> [facility] ([facility]) quetiapine 300 MG Oral Tablet quetiapine 01/06/2020 12:00:00 AM EST 300 mg completed <td ID="Medicat ionRxNorm_1">665958</td><td ID="MedicationMedication_1">quetiapine</td><td ID="MedicationRoute_1"></td><td ID="MedicationRouteConcept_1"></td><td ID="MedicationStartDate_1">01/06/2020</td><td ID="MedicationStopDate_1">01/05/2021</td><td ID="MedicationDosageFrequency_1">at bedtime</td><td ID="MedicationDuration_1">30</td><td ID="MedicationFormulaStrength_1">300 mg</td><td ID="MedicationDosageForm_1">tablet</td><td ID="MedicationDosageFormCode_1"></td><td ID="MedicationDosageDescription_1"></td><td ID="MedicationMedicationId_1">[id number]</td><td ID="MedicationAccount_1">[id number]</td><td ID="MedicationNpid_1">[id number]</td><td ID="MedicationAuthorFirstName_1">Dane</td><td ID="MedicationAuthorLastName_1">Loida</td><td ID="MedicationTaxonomyCode_1">[id number]</td><td ID="MedicationTaxonomyDesc_1">Psychiatric/Mental Health</td><td ID="MedicationPhoneNumber_1">[phone]</td> [facility] ([facility]) quetiapine 300 MG Oral Tablet quetiapine 01/06/2020 12:00:00 AM EST 300 mg completed <td ID="Medicat ionRxNorm_5">677503</td><td ID="MedicationMedication_5">quetiapine</td><td ID="MedicationRoute_5"></td><td ID="MedicationRouteConcept_5"></td><td ID="MedicationStartDate_5">01/06/2020</td><td ID="MedicationStopDate_5">01/05/2021</td><td ID="MedicationDosageFrequency_5">at bedtime</td><td ID="MedicationDuration_5">30</td><td ID="MedicationFormulaStrength_5">300 mg</td><td ID="MedicationDosageForm_5">tablet</td><td ID="MedicationDosageFormCode_5"></td><td ID="MedicationDosageDescription_5"></td><td ID="MedicationMedicationId_5">35443</td><td ID="MedicationAccount_5">[id number]</td><td ID="MedicationNpid_5">[id number]</td><td ID="MedicationAuthorFirstName_5">Dane</td><td ID="MedicationAuthorLastName_5">Loida</td><td ID="MedicationTaxonomyCode_5">[id number]</td><td ID="MedicationTaxonomyDesc_5">Psychiatric/Mental Health</td><td ID="MedicationPhoneNumber_5">[phone]</td> [facility] ([facility]) [facility]12/20/2019 12:00:00 AM EST mg/3.9 completed <td ID="MedicationRxNorm_3">7003911</td><td ID="MedicationMedication_3">Ari</td><td ID="MedicationRoute_3">intramuscularly</td><td ID="MedicationRouteConcept_3"></td><td ID="MedicationStartDate_3">12/20/2019</td><td ID="MedicationStopDate_3">09/12/2020</td><td ID="MedicationDosageFrequency_3"></td><td ID="MedicationDuration_3"></td><td ID="MedicationFormulaStrength_3">1,064 mg/3.9 mL</td><td ID="MedicationDosageForm_3">suspension,extended rel syring</td><td ID="MedicationDosageFormCode_3"></td><td ID="MedicationDosageDescription_3">as directed</td><td ID="MedicationMedicationId_3">68813</td><td ID="MedicationAccount_3">[id number]</td><td ID="MedicationNpid_3">[id number]</td><td ID="MedicationAuthorFirstName_3">Dane</td><td ID="MedicationAuthorLastName_3">Loida</td><td ID="MedicationTaxonomyCode_3">[id number]</td><td ID="MedicationTaxonomyDesc_3"> Psychiatric/Mental Health</td><td ID="MedicationPhoneNumber_3">[phone]</td> [facility] ([facility]) Trazodone Hydrochloride 50 MG Oral Tablet trazodone 2018 12:00:00 AM EDT 50 mg by mouth completed <td ID="Medic ationRxNorm_2">088498</td><td ID="MedicationMedication_2">trazodone</td><td ID="MedicationRoute_2">by mouth</td><td ID="MedicationRouteConcept_2">M42025</td><td ID="MedicationStartDate_2">06/10/2019</td><td ID="MedicationStopDate_2">09/12/2020</td><td ID="MedicationDosageFrequency_2">at bedtime</td><td ID="MedicationDuration_2"></td><td ID="MedicationFormulaStrength_2">50 mg</td><td ID="MedicationDosageForm_2">tablet</td><td ID="MedicationDosageFormCode_2"></td><td ID="MedicationDosageDescription_2"></td><td ID="MedicationMedicationId_2">15686</td><td ID="MedicationAccount_2">[id number]</td><td ID="MedicationNpid_2">[id number]</td><td ID="MedicationAuthorFirstName_2">Dane</td><td ID="MedicationAuthorLastName_2">[place]</td><td ID="MedicationTaxonomyCode_2">[id number]</td><td ID="MedicationTaxonomyDesc_2">Psychiatric/Mental Health</td><td ID="MedicationPhoneNumber_2">[phone]</td> [facility] ([facility]) Amantadine Hydrochloride 100 MG Oral Capsule amantadine HCl 07/30/2017 12:00:00 AM EDT 100 mg by mouth completed <td ID="MedicationRxNorm_1">015161</td><td ID="MedicationMedication_1">amantadine HCl</td><td ID="MedicationRoute_1">by mouth</td><td ID="MedicationRouteConcept_1">X08957</td><td ID="MedicationStartDate_1">07/30/2017</td><td ID="MedicationStopDate_1">09/12/2020</td><td ID="MedicationDosageFrequency_1">every morning</td><td ID="MedicationDuration_1"></td><td ID="MedicationFormulaStrength_1">100 mg</td><td ID="MedicationDosageForm_1">capsule</td><td ID="MedicationDosageFormCode_1"></td><td ID="MedicationDosageDescription_1"></td><td ID="MedicationMedicationId_1">09128</td><td ID="MedicationAccount_1">[id number]</td><td ID="MedicationNpid_1">[id number]</td><td ID="MedicationAuthorFirstName_1">Dane</td><td ID="MedicationAuthorLastName_1">Loida</td><td ID="MedicationTaxonomyCode_1">[id number]</td><td ID="MedicationTaxonomyDesc_1">Psychiatric/Mental Health</td><td ID="MedicationPhoneNumber_1">[phone]</td> [facility] ([facility]) Insurance Providers Payer name Policy type / Coverage type Policy ID Covered green party ID Covered green party's relationship to shafer Policy Shafer Plan Information Medicaid S [id number] S [id number] Managed Care - Community Plan [facility] P [id number] S [id number] Medicaid S [id number] S [id number] [facility] I [id number] Self [id number] [facility] I [id number] Self [id number] [facility] I [id number] Self [id number] Managed Care - C Community Plan P [id number] S [id number] Medicaid S [id number] S [id number] Managed Care - UHC Community Plan P [id number] S [id number] UNHC COMMUNITY PLAN MCDHMO [id number] SP [id number] [facility] MAN CRE [id number] SP [id number] [facility] [id number] SP [id number] SELF PAY [facility] OFFICE OF MENTAL HEALTH UNAVAILABLE S UNAVAILABLE MEDICAID [id number] S [id number] [facility] OFFICE OF MENTAL HEALTH [id number] S [id number] UNHC COMMUNITY PLAN MCDO [id number] SP [id number] [facility] OFFICE OF MENTAL HEALTH [id number] S [id number] [facility] [id number] SP [id number] SELF PAY ONLY [id number] SP [id number] [facility] [id number] SP [id number] SELF PAY SP [facility](MCA[facility]) O [id number] S [id number] [facility] [id number] SP [id number] Self Pay P UNAVAILABLE S UNAVAILA BLE [facility]) O [id number] S [id number] [facility] [id number] SP [id number] MEDICAID [id number] SP [id number] [employer] COMMUNITY PLAN MCDHMO [id number] SP [id number] MEDICAID [id number] SP [id number] Problems, Conditions, and Diagnoses Code Display Name Description Problem Type Effective Dates Data Source(s) F11.10 Opioid abuse, uncomplicated F11.10 - Opioid abus e, uncomplicated Diagnosis 02/27/2021 08:12:00 PM EDT [facility] 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, uncomplicated F16.10 - Hallucinogen abuse, uncomplicated Diagnosis 02/27/2021 08:12:[facility] F25.9 Schizoaffective disorder, unspecified F2 5.9 - Schizoaffective disorder, unspecified Diagnosis 02/27/2021 08:12:00 PM EDT [facility] Z13.9 Encounter for screening, unspecified Z13 .9 - Encounter for screening, unspecified Diagnosis 02/27/2021 08:12:00 PM [facility]T [facility] schizophrenia, hallucinations, substance abuse schizophrenia, hallucinations, substance abuse Diagnosis 09/22/2020 02:27:00 PM [facility] F15.20 Other stimulant dependence, uncomplicate d Stimulant Use Disorder, Moderate: Amphetamine-type substance Condition 07/29/2021 12:00:00 AM EDT [facility] ([facility]) F10.20 Alcohol dependence, uncomplicated Alcohol Use Disorder , Severe Condition 07/29/2021 12:00:00 AM EDT [facility] ([facility]) F17.200 Nicotine dependence, unspecified, uncomp licated Tobacco Use Disorder, Moderate Condition 07/29/2021 12:00:00 AM EDT [facility] ([facility]) F12.20 Cannabis dependence, uncomplicated Cannabis Use Disorder, Moderate Condition 07/29/2021 12:00:00 AM EDT [facility] ([facility]) F20.9 Schizophrenia, unspecified Schizophrenia Condition 07/29/2021 12:00:00 AM EDT [facility] ([facility]) Surgeries/Procedures Procedure Description Date Indications Data Source(s) Comprehensive medication services, per 15 minutes 07/29/2021 12:00:00 AM EDT - 07/29/2021 12:00:00 AM EDT [facility] ([facility]) Comprehensive medication services, per 15 minutes 07/29/2021 12:00:00 AM EDT [facility] ([facility]) Comprehensive medication services, per 15 minutes 06/24/2021 12:00:00 AM EDT - 06/24/2021 12:00:00 AM EDT [facility] ([facility]) Comprehensive medication services, per 15 minutes 06/24/2021 12:00:00 AM EDT [facility] ([facility]) THERAPEUTIC PROPHYLACTIC/DX INJECTION SUBQ/IM 05/27/2021 12:00:00 AM EDT - 05/27/2021 12:00:00 AM EDT [facility] ([facility]) THERAPEUTIC PROPHYLACTIC/DX INJECTION SUBQ/IM 05/27/20 12:00:00 AM EDT [facility] ([facility]) Brief Individual Psychotherapy - 30 min 05/13/2021 12:00:00 AM EDT - 05/13/2021 12:00:00 AM EDT [facility] ([facility]) Brief Individual Psychotherapy - 30 min 05/13/2021 12: 00:00 AM EDT [facility] ([facility]) Comprehensive medication services, per 15 minutes 04/04/2021 12:00:00 AM EDT - 04/04/2021 12:00:00 AM EDT [facility] ([facility]) Comprehensive medication services, per 15 minutes 04/03/2021 12:00:00 AM EDT [facility] ([facility]) OFFICE OUTPATIENT VISIT 15 MINUTES 04/03 12:00:00 AM EDT - 04/03/2021 12:00:00 AM EDT [facility] ([facility]) Psychotherapy ADD ON - 30 Minutes 04/03/2021 12:00:00 AM EDT [facility] ([facility]) OFFICE OUTPATIENT VISIT 15 MINUTES 04/03/2021 12:00:00 AM EDT [facility] ([facility]) OFFICE OUTPATIENT VISIT 15 MINUTES 03/27 12:00:00 AM EDT - 03/27/2021 12:00:00 AM EDT [facility] ([facility]) OFFICE OUTPATIENT VISIT 15 MINUTES 03/27/2021 12:00:00 AM EDT [facility] ([facility]) OFFICE OUTPATIENT VISIT 15 MINUTES 03/19 12:00:00 AM EDT - 03/19/2021 12:00:00 AM EDT [facility] ([facility]) OFFICE OUTPATIENT VISIT 15 MINUTES 03/19/2021 12:00:00 AM EDT [facility] ([facility]) OFFICE OUTPATIENT VISIT 15 MINUTES 02/12 12:00:00 AM EDT - 02/12/2021 12:00:00 AM EDT [facility] ([facility]) OFFICE OUTPATIENT VISIT 15 MINUTES 02/12/2021 12:00:00 AM EDT [facility] ([facility]) OFFICE OUTPATIENT VISIT 15 MINUTES 02/07 12:00:00 AM EDT - 02/07/2021 12:00:00 AM EDT [facility] ([facility]) OFFICE OUTPATIENT VISIT 15 MINUTES 02/07/2021 12:00:00 AM EDT [facility] ([facility]) Brief Individual Psychotherapy - 30 min 02/01/2021 12:00:00 AM EDT - 02/01/2021 12:00:00 AM EDT [facility] ([facility]) Brief Individual Psychotherapy - 30 min 02/01/2021 12: 00:00 AM EDT [facility] ([facility]) OFFICE OUTPATIENT VISIT 15 MINUTES 01/23 12:00:00 AM EDT - 01/23/2021 12:00:00 AM EDT [facility] ([facility]) OFFICE OUTPATIENT VISIT 15 MINUTES 01/23/2021 12:00:00 AM EDT [facility] ([facility]) THERAPEUTIC PROPHYLACTIC/DX INJECTION SUBQ/IM 01/23/2021 12:00:00 AM EDT - 01/23/2021 12:00:00 AM EDT [facility] ([facility]) THERAPEUTIC PROPHYLACTIC/DX INJECTION SUBQ/IM 01/24/20 12:00:00 AM EDT [facility] ([facility]) Comprehensive medication services, per 15 minutes 01/18/2021 12:00:00 AM EDT - 01/18/2021 12:00:00 AM EDT [facility] ([facility]) Comprehensive medication services, per 15 minutes 01/18/2021 12:00:00 AM EDT [facility] ([facility]) OFFICE OUTPATIENT VISIT 15 MINUTES 01/17 12:00:00 AM EDT - 01/17/2021 12:00:00 AM EDT [facility] ([facility]) OFFICE OUTPATIENT VISIT 15 MINUTES 01/17/2021 12:00:00 AM EDT [facility] ([facility]) MHC Telemed E/M Lvl 3--Est pt 01/01/2021 12:00:00 AM EST - 01/01/2021 12:00:00 AM EST [facility] ([facility]) MHC Telemed E/M Lvl 3--Est pt 01/01/2021 12:00:[address] [facility] ([facility]) THERAPEUTIC PROPHYLACTIC/DX INJECTION SUBQ/IM 12/28/2020 12:00:00 AM EST - 12/28/2020 12:00:00 AM EST [facility] ([facility]) THERAPEUTIC PROPHYLACTIC/DX INJECTION SUBQ/IM 12/28/19 12:00:00 AM EST [facility] ([facility]) MHC Telemed E/M Lvl 3--Est pt 12/20/2020 12:00:00 AM EST - 12/20/2020 12:00:00 AM EST [facility] ([facility]) MHC Telemed E/M Lvl 3--Est pt 12/20/2020 12:00:[address] [facility] ([facility]) MHC Telemed E/M Lvl 3--Est pt 12/06/2020 12:00:00 AM EST - 12/06/2020 12:00:00 AM EST [facility] ([facility]) MHC Telemed E/M Lvl 3--Est pt 12/06/2020 12:00:[address] [facility] ([facility]) Comprehensive medication services, per 15 minutes 11/15/2020 12:00:00 AM EST - 11/15/2020 12:00:00 AM EST [facility] ([facility]) Comprehensive medication services, per 15 minutes 11/15/2020 12:00:00 AM EST [facility] ([facility]) OFFICE OUTPATIENT VISIT 15 MINUTES 11/15 12:00:00 AM EST - 11/15/2020 12:00:00 AM EST [facility] ([facility]) OFFICE OUTPATIENT VISIT 15 MINUTES 11/15/2020 12:00:00 AM EST [facility] ([facility]) THERAPEUTIC PROPHYLACTIC/DX INJECTION SUBQ/IM 10/18/2020 12:00:00 AM EST - 10/18/2020 12:00:00 AM EST [facility] ([facility]) THERAPEUTIC PROPHYLACTIC/DX INJECTION SUBQ/IM 10/18/20 20 12:00:00 AM EST [facility] ([facility]) THERAPEUTIC PROPHYLACTIC/DX INJECTION SUBQ/IM 10/15/2020 12:00:00 AM EST - 10/15/2020 12:00:00 AM EST [facility] ([facility]) THERAPEUTIC PROPHYLACTIC/DX INJECTION SUBQ/IM 10/15/20 20 12:00:00 AM EST [facility] ([facility]) THERAPEUTIC PROPHYLACTIC/DX INJECTION SUBQ/IM 10/04/2020 12:00:00 AM EST - 10/04/2020 12:00:00 AM EST [facility] ([facility]) THERAPEUTIC PROPHYLACTIC/DX INJECTION SUBQ/IM 10/04/20 20 12:00:00 AM EST [facility] ([facility]) OFFICE OUTPATIENT VISIT 15 MINUTES 10/04 12:00:00 AM EST - 10/04/2020 12:00:00 AM EST [facility] ([facility]) OFFICE OUTPATIENT VISIT 15 MINUTES 10/04/2020 12:00:00 AM EST [facility] ([facility]) OFFICE OUTPATIENT VISIT 15 MINUTES 09/12 12:00:00 AM EST - 09/12/2020 12:00:00 AM EST [facility] ([facility]) OFFICE OUTPATIENT VISIT 15 MINUTES 09/12/2020 12:00:00 AM EST [facility] ([facility]) THERAPEUTIC PROPHYLACTIC/DX INJECTION SUBQ/IM 09/12/2020 12:00:00 AM EST - 09/12/2020 12:00:00 AM EST [facility] ([facility]) THERAPEUTIC PROPHYLACTIC/DX INJECTION SUBQ/IM 09/12/20 20 12:00:00 AM EST [facility] ([facility]) OFFICE OUTPATIENT VISIT 15 MINUTES 08/10 12:00:00 AM EDT - 08/10/2020 12:00:00 AM EDT [facility] ([facility]) OFFICE OUTPATIENT VISIT 15 MINUTES 08/10/2020 12:00:00 AM EDT [facility] ([facility]) THERAPEUTIC PROPHYLACTIC/DX INJECTION SUBQ/IM 07/13/2020 12:00:00 AM EDT - 07/13/2020 12:00:00 AM EDT [facility] ([facility]) THERAPEUTIC PROPHYLACTIC/DX INJECTION SUBQ/IM 07/13/20 20 12:00:00 AM EDT [facility] ([facility]) Results ID Date Data Source [id number] 07/19/2021 10:40:00 AM EDT [facility] Name Value Range Interpretation Code Description Data Michelle rce(s) Supporting Document(s) SARS coronavirus 2 RNA [Presence] in Res piratory specimen by OMI with probe detection NEGATIVE [facility] This lab was ordered by [facility] a nd reported by [facility]. ID Date Data Source [id number] 07/19/2021 09:50:00 AM EDT [facility] Name Value Range Interpretation Code Description Data Michelle rce(s) Supporting Document(s) SARS COVID ANTIGEN NEGATIVE [facility] This lab was ordered by [facility] a nd reported by [facility]. ID Date Data Source [id number] 06/04/2021 08:17:00 PM EDT [facility] Name Value Range Interpretation Code Description Data Michelle rce(s) Supporting Document(s) SARS coronavirus 2 RNA [Presence] in Res piratory specimen by OMI with probe detection NEGATIVE [facility] This lab was ordered by [facility] a nd reported by [facility]. ID Date Data Source [id number] 05/01/2021 01:57:00 PM EDT [facility] Name Value Range Interpretation Code Description Data Michelle rce(s) Supporting Document(s) SARS coronavirus 2 RNA [Presence] in Res piratory specimen by OMI with probe detection NEGATIVE [facility] This lab was ordered by [facility] a nd reported by [facility]. ID Date Data Source [id number] 04/19/2021 06:29:00 AM EDT [facility] Name Value Range Interpretation Code Description Data Michelle rce(s) Supporting Document(s) SARS coronavirus 2 RNA [Presence] in Res piratory specimen by OMI with probe detection NEGATIVE [facility] This lab was ordered by [facility] a nd reported by [facility]. ID Date Data Source [id number] 04/17/2021 05:50:00 PM EDT [facility] Name Value Range Interpretation Code Description Data Michelle rce(s) Supporting Document(s) SARS-CoV-2 (COVID-19) RNA [Presence] in Respiratory specimen by [facility]MI with probe detection Not Detected [facility] This lab was ordered by [facility] and reported by [facility]. ID Date Data Source [id number] 02/28/2021 04:53:00 [place] [address] HEALTH INFORMATION MANAGEMENT History and Physical Report : [id number] Signed Patient: Gabo Parra Acct:[id number] Unit: Low [id number] : 1980 Loc: [facility] Room/Bed: 820-B Age/Sex: 40 / [...] charges for this visit?: Yes Inpt Consult [id number] Cons Level 1: Yes Signed By:Rambo Summers <<Signature on File>> Signed Date/Time: 02/28/21 3184 Co-Signer: Leonel Hubbard MD Co-Signed Date/Time: 02/28/21 2977 Initializing User: Rambo Summers NP 02/28/211652 52 52 Name Value Range Interpretation Code Description Data Michelle rce(s) Supporting Document(s) ID Date Data Source [id number] 02/28/2021 10:45:00 AM EDT [facility] [address] [place] [address] HEALTH INFORMATION MANAGEMENT [facility] Psychosocial Summary : [id number] Signed Patient: Gabo Parra Acct:[id number] Unit: M [id number] : 1980 Loc: [facility] Room/Bed: 820-B Age/Sex: 40 / M ADM Date: 02/27/21 cc: General/History - Presenting Problem Presenting Problem: Social Summary/Discharge plan Presenting Problem Gabo is a40 yo AAM, extensive psych hx, also problems with substance abuse admitted on a transfer from [facility] ER brought in there by his CW as pt was feeling depressed, suicidal, also hallucinating and after abusing drugs History. tates was partially complaint with meds. Not able to name his psychiatrist in [place], not able to name the therapist. Gives h/o 5 to 6 inpt psych txs, last one few months ago, "I can't remember the place, they send me from [facility]. " Also, h'o inpt psych tx at [facility]. H/o self harm time, tried to hand [...] Person?: No Are you part of any mormonism/spirtual community?: Yes (Gnosticist ) - Current Living/Relationship History Current Living Arrangement: House Who Do You Live With?: Mother. OK to Return Home: Yes Weapons in household: No Currently in a Relationship?: No Ever Been ?: No Any Children?: 2 - Family History Where Were You Born/Raised?: [place] Who Was in Home?: Mother, Father How [...] Reducing Risk: Complies with Tx/Meds, Future Oriented, Yazdanism Beliefs Mental Status Treatment - Mental Status [...] rce(s) Supporting Document(s) ID Date Data Source [id number] 02/27/2021 04:28:00 PM EDT [facility] Name Value Range Interpretation Code Description Data Michelle rce(s) Supporting Document(s) SARS coronavirus 2 RNA [Presence] in Res piratory specimen by OMI with probe detection NEGATIVE [facility] This lab was ordered by [facility] a nd reported by [facility]. ID Date Data Source [id number] 01/23/2021 01:03:00 AM EDT [facility] Name Value Range Interpretation Code Description Data Michelle rce(s) Supporting Document(s) SARS coronavirus 2 RNA [Presence] in Res piratory specimen by OMI with probe detection NEGATIVE [facility] This lab was ordered by [facility] a nd reported by [facility]. ID Date Data Source [id number] 10/17/2020 12:19:00 AM EST [facility] Name Value Range Interpretation Code Description Data Michelle rce(s) Supporting Document(s) SARS coronavirus 2 RNA [Presence] in Res piratory specimen by OMI with probe detection [facility] This lab was ordered by [facility] a nd reported by [facility]. Procedure Social History Code Duration Value [...] leted Unknown if ever smoked [facility] ([facility]) Smoking 03/27/2021 12:00:00 AM EDT Unknown if ever smoked comp leted Unknown if ever smoked [facility] ([facility]) Smoking 03/19/2021 12:00:00 AM EDT Unknown if ever smoked comp leted Unknown if ever smoked [facility] ([facility]) Smoking 02/12/2021 12:00:00 AM EDT Unknown if ever smoked comp leted Unknown if ever smoked [facility] ([facility]) Smoking 02/07/2021 12:00:00 AM EDT Unknown if ever smoked comp leted Unknown if ever smoked [facility] ([facility]) Smoking 02/01/2021 12:00:00 AM EDT Unknown if ever smoked comp leted Unknown if ever smoked [facility] ([facility]) Smoking 01/23/2021 12:00:00 AM EDT Unknown if ever smoked comp leted Unknown if ever smoked [facility] ([facility]) Smoking 01/18/2021 12:00:00 AM EDT Unknown if ever smoked comp leted Unknown if ever smoked [facility] ([facility]) Smoking 01/17/2021 12:00:00 AM EDT Unknown if ever smoked comp leted Unknown if ever smoked [facility] ([facility]) Smoking 01/01/2021 12:00:00 AM EST Unknown if ever smoked comp leted Unknown if ever smoked [facility] ([facility]) Smoking 12/28/2020 12:00:00 AM EST Unknown if ever smoked comp leted Unknown if ever smoked [facility] ([facility]) Smoking 12/20/2020 12:00:00 AM EST Unknown if ever smoked comp leted Unknown if ever smoked [facility] ([facility]) Smoking 12/06/2020 12:00:00 AM EST Unknown if ever smoked comp leted Unknown if ever smoked [facility] ([facility]) Smoking 11/15/2020 12:00:00 AM EST Unknown if ever smoked comp leted Unknown if ever smoked [facility] ([facility]) Smoking 10/18/2020 12:00:00 AM EST Unknown if ever smoked comp leted Unknown if ever smoked [facility] ([facility]) Smoking 10/15/2020 12:00:00 AM EST Unknown if ever smoked comp leted Unknown if ever smoked [facility] ([facility]) Smoking 10/04/2020 12:00:00 AM EST Unknown if ever smoked comp leted Unknown if ever smoked [facility] ([facility]) Smoking 09/12/2020 12:00:00 AM EST Unknown if ever smoked comp leted Unknown if ever smoked [facility] ([facility]) Smoking 08/10/2020 12:00:00 AM EDT Unknown if ever smoked comp leted Unknown if ever smoked [facility] ([facility]) Smoking 07/13/2020 12:00:00 AM EDT Unknown if ever smoked comp leted Unknown if ever smoked [facility] ([facility]) Vital Signs ID Date Data Source UNK Name Value Range Interpretation Code Description Data Source(s) Body height 0.00 in Normal (applies to non-numeric resu lts) 0.00 in [facility] ([facility]) Body weight Measured 0.00 lbs Normal (applies to n on-numeric results) 0.00 lbs [facility] ([facility]) Body mass index (BMI) [Ratio] 0.00 kg/m2 No rmal (applies to non-numeric results) 0.00 kg/m2 [facility] ([facility]) Systolic blood pressure 0 mm[Hg] Normal (applies t o non-numeric results) 0 mm[Hg] [facility] ([facility]) Diastolic blood pressure 0 mm[Hg] Normal (applies to non-numeric results) 0 mm[Hg] [facility] ([facility]) Body height 0.00 in Normal (applies to non-numeric resu lts) 0.00 in [facility] ([facility]) Body weight Measured 0.00 lbs Normal (applies to n on-numeric results) 0.00 lbs [facility] ([facility]) Body mass index (BMI) [Ratio] 0.00 kg/m2 No rmal (applies to non-numeric results) 0.00 kg/m2 [facility] ([facility]) Systolic blood pressure 0 mm[Hg] Normal (applies t o non-numeric results) 0 mm[Hg] [facility] ([facility]) Diastolic blood pressure 0 mm[Hg] Normal (applies to non-numeric results) 0 mm[Hg] [facility] Body height 0.00 in Normal (applies to non-numeric resu lts) 0.00 in [facility] Body weight Measured 0.00 lbs Normal (applies to n on-numeric results) 0.00 lbs [facility] ([facility]) Body mass index (BMI) [Ratio] 0.00 kg/m2 No rmal (applies to non-numeric results) 0.00 kg/m2 [facility] ([facility]) Systolic blood pressure 0 mm[Hg] Normal (applies t o non-numeric results) 0 mm[Hg] [facility] ([facility]) Diastolic blood pressure 0 mm[Hg] Normal (applies to non-numeric results) 0 mm[Hg] [facility] ([facility]) Body height 0.00 in Normal (applies to non-numeric resu lts) 0.00 in [facility] ([facility]) Body weight Measured 0.00 lbs Normal (applies to n on-numeric results) 0.00 lbs [facility] ([facility]) Body mass index (BMI) [Ratio] 0.00 kg/m2 No rmal (applies to non-numeric results) 0.00 kg/m2 [facility] ([facility]) Systolic blood pressure 0 mm[Hg] Normal (applies t o non-numeric results) 0 mm[Hg] [facility] ([facility]) Diastolic blood pressure 0 mm[Hg] Normal (applies to non-numeric results) 0 mm[Hg] [facility] ([facility]) ID Date Data Source [id number] 09/22/2020 02:27:59 PM [facility] Name Value Range Interpretation Code Description Data Source(s) TRANSFER FROM [facility]
[2021-08-16 07:14] LABS: HEMATOCRIT 40.8 % (42.0-52.0); HEMOGLOBIN 13.6 g/dl (13.5-17.5); MEAN CORPUSCULAR HEMOGLOBIN 30.2 pg (27.0-33.0); MEAN CORPUSCULAR HGB CONC 33.3 g/dl (32.0-36.5); MEAN CORPUSCULAR VOLUME 90.5 fl (80.0-96.0); PLATELET COUNT, AUTOMATED 293 10^3/uL (150-450); RED BLOOD COUNT 4.51 10^6/uL (4.30-6.10); WHITE BLOOD COUNT 10.3 10^3/uL (4.0-10.0)
[2021-08-16 08:05] LABS: ACETAMINOPHEN LEVEL < 2.0 UG/ML (10.0-30.0); ALBUMIN 3.4 GM/DL (3.2-5.2); ALT/SGPT 135 U/L (12-78); AMPHETAMINES LEVEL URINE NEGATIVE (NEGATIVE); BARBITURATES URINE NEGATIVE (NEGATIVE); BENZODIAZEPINES URINE NEGATIVE (NEGATIVE); BILIRUBIN,DIRECT 0.2 MG/DL (0.0-0.2); BILIRUBIN,TOTAL 0.5 MG/DL (0.2-1.0); BLOOD UREA NITROGEN 11 MG/DL (7-18); CALCIUM LEVEL 9.1 MG/DL (8.5-10.1); CANNABINOIDS URINE POSITIVE (NEGATIVE); CARBON DIOXIDE LEVEL 29 MEQ/L (21-32); CHLORIDE LEVEL 107 MEQ/L (98-107); COCAINE METABOLITE URINE NEGATIVE (NEGATIVE); CREATININE FOR GFR 0.86 MG/DL (0.70-1.30); ETHYL ALCOHOL (ETHANOL) < 0.003 % (0.000-0.010); GLOMERULAR FILTRATION RATE > 60.0 (>60); GLUCOSE, FASTING 56 MG/DL (70-100); METHADONE URINE NEGATIVE (NEGATIVE); OPIATES URINE NEGATIVE (NEGATIVE); PHENCYCLIDINE URINE NEGATIVE (NEGATIVE); SALICYLATE LEVEL 2.2 MG/DL (5.0-30.0); SODIUM LEVEL 140 MEQ/L (136-145); THYROID STIMULATING HORMONE 0.731 uIU/ML (0.358-3.740); TOTAL PROTEIN 7.2 GM/DL (6.4-8.2)
--- OUTSIDE RECORDS SUMMARY | 2021-08-16 08:31 | CCD ---
Author Author [facility] Organization [facility] Address Unknown Phone Unavailable Support Name Relationship Address Phone Hudson GUTIERREZ, Pasha Next Of Kin [address] [place] [address] Diamante Costa Next Of Kin [address] [place] [address] Dwain Joseph DO Next Of Kin [address] [place] [address] Cameron Bingham MD Next Of Kin [address] [place] [address] SELFGARY Next Of Kin [address] [place] [address] YONI JACK Next Of Kin [address] [place] [address] CORRECTIONAL, [place] Next Of Kin [address] [place] [address] Monique Conklin MD Next Of Kin [address] [place] [phone] YONI CALHOUN Next Of Kin [address] [place] [address] Isabelle Manning Next Of Kin [address] [place] [address] Pat Gallo DO Next Of Kin [address] [place] [address] DISABLED Next Of Kin Unknown Unavailable Spofford Self Next Of Kin [address] [place] [phone] SELF, JUNIOR Next Of Kin [address] [place] [address] UE Next Of Kin Unknown Unavailable SIMON WALL Next Of Kin [address] [place] [address] SELF, JUNIOR ECON [address] [place] [address] Unavailable Care Team Providers Care Animal Science Professor Name Role Phone Farden, M Rambo Unavailable [...] Unavailable Unavailable BILJONNATHAN SARGENT MD Unavailable Unavailable BILJONNATHAN SARGENT MD Unavailable Unavailable BILJONNATHAN SARGENT MD Unavailable Unavailable BILALJONNATHAN MD Unavailable Unavailable BILALJONNATHAN MD Unavailable Unavailable BILALJONNATHAN MD Unavailable Unavailable BILALJONNATHAN MD Unavailable Unavailable BILALJONNATHAN MD Unavailable Unavailable BILALJONNATHAN MD Unavailable Unavailable BILALJONNATHAN MD Unavailable Unavailable Gina Nash Unavailable AMILCAR, H ANSELMO SHEARING MACHINE FEEDER Unavailable Unavailable AMILCAR, H ANSELMO SHEARING MACHINE FEEDER Unavailable Unavailable AMILCAR, H ANSELMO SHEARING MACHINE FEEDER Unavailable Unavailable AMILCAR, H ANSELMO SHEARING MACHINE FEEDER Unavailable Unavailable AMILCAR, H ANSELMO SHEARING MACHINE FEEDER Unavailable Unavailable AMILCAR, H ANSELMO SHEARING MACHINE FEEDER Unavailable Unavailable AMILCAR, H ANSELMO SHEARING MACHINE FEEDER Unavailable Unavailable AMILCAR, H ANSELMO SHEARING MACHINE FEEDER Unavailable Unavailable AMILCAR, H ANSELMO SHEARING MACHINE FEEDER Unavailable Unavailable Jossie Marcelino Unavailable Rotella, Jossy Unavailable Unavailable [place]'Thalia Werner Unavailable Solomon Treviño MD Unavailable Unavailable Solomon [...] Unavailable Unavailable Solomon Treviño MD Unavailable Unavailable EscobarBonifacio gaspar MD Unavailable Unavailable EscobarBonifacio gaspar MD Unavailable Unavailable EscobarBonifacio gaspar MD Unavailable Unavailable Pam Juarez Unavailable ALIASES [...] Unavailable ALIASES , ORGANIZATION NPI Unavailable Unavailable EGORHO, F KALLI FPMHNP Unavailable [...] is protected by Article 27-F of the [facility] Public Health law. If you continue you may have access to information: Regarding HIV / AIDS; Provided by facilities licensed or operated by the [facility] Office of Mental Health; or Provided by the [facility] Office for People With Developmental Disabilities. If such information is present, then the following [facility] mandated warning applies: This information has [...] law may result in a fine or fci sentence or both. A general authorization for the release of medical or other information is NOT sufficient authorization for further disc losure. Allergies and Adverse Reactions Type Description Substance Reaction Status Data Source(s ) Drug allergy No Known Allergies No Known Allergies [facility] Propensity to adverse reactions NO KNOWN ALLERGIES NO KNOWN ALLERGIES [facility] Encounters Encounter Providers Location Date Indications Data Source(s ) Injectable Medication Administration w/ Monitoring & E ducation Attender: Pammurphy Isbellpo [facility] 07/29/2021 02:30:00 AM EDT - 07/29/2021 02:30:00 AM EDT [facility] ([facility]) Attender: Pam Juarez 07/29/2021 12:00:00 AM EDT [facility] ([facility]) Injectable Medication Administration w/ Monitoring & E ducation Attender: Thalia Carreno [facility] 06/24/2021 10:45:00 AM EDT - 06/24/2021 10:45:00 AM EDT [facility] ([facility]) Attender: Thalia Carreno 06/24/2021 12:00:00 AM EDT [facility] ([facility]) Injectable Psychotropic Medication Administration (Inj ection Only) Attender: Thalia Carreno [facility] 05/27/2021 08:15:00 AM EDT - 05/27/2021 08:15:00 AM EDT [facility] ([facility]) Attender: Thalia Carreno 05/27/2021 12:00:00 AM EDT [facility] ([facility]) Brief Individual Psychotherapy - 30 min Attender: Gina yun [facility] 05/13/2021 08:30:00 AM EDT - 05/13/2021 08:30:00 AM EDT [facility] ([facility]) Attender: Gina Nash 05/13/2021 12:00:00 AM EDT [facility] ([facility]) Attender: Pam Juarez 04/04/2021 12:00:00 AM EDT [facility] ([facility]) Injectable Medication Administration w/ Monitoring & E ducation Attender: Pam Borjapo [facility] Maria Alejandra 04/03/2021 09:00:00 AM EDT - 04/03/2021 09:00:00 AM EDT [facility] ([facility]) Outpatient Attender: ANSELMO APONTE NP [facility] Mike garcía 04/03/2021 08:30:00 AM EDT - 04/03/2021 08:30:00 AM EDT [facility] ([facility]) Attender: ANSELMO APONTE NP 04/03/2021 12:00:00 AM EDT [facility] ([facility]) Outpatient Attender: ANSELMO APONTE NP [facility] Mike garcía 03/27/2021 11:00:00 AM EDT - 03/27/2021 11:00:00 AM EDT [facility] ([facility]) Attender: ANSELMO APONTE NP 03/27/2021 12:00:00 AM EDT [facility] ([facility]) Outpatient Attender: ANSELMO APONTE NP [facility] Mike garcía 03/19/2021 03:00:00 AM EDT - 03/19/2021 03:00:00 AM EDT [facility] ([facility]) Attender: ANSELMO APONTE NP 03/19/2021 12:00:00 AM EDT [facility] ([facility]) Inpatient Attender: JONNATHAN Marieeitter: JONNATHAN TRACY MD 02/27/2021 08:12:00 PM EDT - 03/08/2021 03:27:00 PM EDT Suicidal Ideation / Homicidal Ideation [facility] Suicidal Ideation / Homicidal Ideation Patient discharged. Outpatient Attender: JONNATHAN Bonilla tter: JONNATHAN TRACY MDConsultant: JONNATHAN TRACY MD 02/27/2021 08:12:00 PM EDT Suicidal Ideation / H omicidal Ideation [facility] Suicidal Ideation / Homicidal Ideation Outpatient Attender: JONNATHAN TRACY MDAdmi tter: JONNATHAN MAIAL MDConsultant: JONNATHAN TRACY MD 02/27/2021 08:12:00 PM EDT Suicidal Ideation / H omicidal Ideation [facility] / Homicidal Ideation Outpatient Attender: Castro ColonAdmitter : JONNATHAN MAIAL MDConsultant: JONNATHAN TRACY MD 02/27/2021 08:12:00 PM EDT Suicidal Ideation / H omicidal Ideation [facility] Suicidal Ideation / Homicidal Ideation Outpatient Attender: JONNATHAN TRACY MDAdmi tter: JONNATHAN TRACY MDConsultant: JONNATHAN TRACY MD 02/27/2021 08:12:00 PM EDT Suicidal Ideation / H omicidal Ideation [facility] Suicidal Ideation / Homicidal Ideation Outpatient Attender: JONNATHAN TRACY MDAdmi tter: JONNATHAN TRACY MDConsultant: JONNATHAN TRACY MD 02/27/2021 08:12:00 PM EDT Suicidal Ideation / H omicidal Ideation [facility] Suicidal Ideation / Homicidal Ideation Outpatient Attender: JONNATHAN TRACY MDAdmi tter: JONNATHAN TRACY MDConsultant: JONNATHAN TRACY MD 02/27/2021 08:12:00 PM EDT Suicidal Ideation / H omicidal Ideation [facility] Suicidal Ideation / Homicidal Ideation Outpatient Attender: Castor ColonAdmitter : JONNATHAN TRACY MDConsultant: JONNATHAN TRACY MD 02/27/2021 08:12:00 PM EDT Suicidal Ideation / H omicidal Ideation [facility] Suicidal Ideation / Homicidal Ideation Outpatient Attender: Castro ColonAdmitter : JONNATHAN TRACY MDConsultant: JONNATHAN TRACY MD 02/27/2021 08:12:00 PM EDT Suicidal Ideation / H omicidal Ideation [facility] Suicidal Ideation / Homicidal Ideation Outpatient Attender: JONNATHAN TRACY MDAdmi tter: JONNATHAN TRACY MDConsultant: JONNATHAN TRACY MD 02/27/2021 08:12:00 PM EDT Suicidal Ideation / H omicidal Ideation [facility] Suicidal Ideation / Homicidal Ideation Outpatient Attender: Rambo Pedroza mitter: JONNATHAN TRACY MDConsultant: JONNATHAN TRACY MD 02/27/2021 08:12:00 PM EDT Suicidal Ideation / H omicidal Ideation [facility] Suicidal Ideation / Homicidal Ideation Outpatient Attender: ANSELMO APONTE NP [facility] 02/12/2021 10:30:00 AM EDT - 02/12/2021 10:30:00 AM EDT [facility] ([facility]) Attender: ANSELMO APONTE NP 02/12/2021 12:00:00 AM EDT [facility] ([facility]) Outpatient Attender: ANSELMO APONTE NP [facility] 02/07/2021 11:30:00 AM EDT - 02/07/2021 11:30:00 AM EDT [facility] ([facility]) Attender: ANSELMO APONTE NP 02/07/2021 12:00:00 AM EDT [facility] ([facility]) Brief Individual Psychotherapy - 30 min Attender: Gina yun [facility] 02/01/2021 02:00:00 AM EDT - 02/01/2021 02:00:00 AM EDT [facility] ([facility]) Attender: Gina aNsh 02/01/2021 12:00:00 AM EDT [facility] ([facility]) Injectable Psychotropic Medication Administration (Inj ection Only) Attender: Thalia Carrneo [facility] 01/23/2021 10:00:00 AM EDT - 01/23/2021 10:00:00 AM EDT [facility] ([facility]) Outpatient Attender: ANSELMO APONTE NP [facility] 01/23/2021 09:15:00 AM EDT - 01/23/2021 09:15:00 AM EDT [facility] ([facility]) Attender: ANSELMO APONTE NP 01/23/2021 12:00:00 AM EDT [facility] ([facility]) Attender: Thalia Carreno 01/23/2021 12:00:00 AM EDT [facility] ([facility]) Injectable Medication Administration w/ Monitoring & E ducation Attender: Pam Juarez [facility]isted 01/18/2021 11:00:00 AM EDT - 01/18/2021 11:00:00 AM EDT [facility] ([facility]) Attender: Pam Juarez 01/18/2021 12:00:00 AM EDT [facility] ([facility]) Outpatient Attender: ANSELMO APONTE NP [facility] raquel 01/17/2021 09:00:00 AM EDT - 01/17/2021 09:00:00 AM EDT [facility] ([facility]) Attender: ANSELMO APONTE NP 01/17/2021 12:00:00 AM EDT [facility] ([facility]) Outpatient Attender: ANSELMO APONTE NP [facility] raquel 01/01/2021 02:30:00 AM EST - 01/01/2021 02:30:00 AM EST [facility] ([facility]) Attender: ANSELMO APONTE NP 01/01/2021 12:00:00 AM EST [facility] ([facility]) Injectable Psychotropic Medication Administration (Inj ection Only) Attender: Jossie Marcelino [facility]isted 12/28/2020 10:30:00 AM EST - 12/28/2020 10:30:00 AM EST [facility] ([facility]) Attender: Jossie Marcelino 12/28/2020 12:00:00 AM EST [facility] ([facility]) Outpatient Attender: Victorino Escobar MD [facility] Mike raquel 12/20/2020 09:30:00 AM EST - 12/20/2020 09:30:00 AM EST [facility] ([facility]) Attender: Victorino Escobar MD 12/20/2020 12:00:00 AM EST [facility] ([facility]) Outpatient Attender: Victorino Escobar MD [facility] Mike garcía 12/06/2020 12:30:00 PM EST - 12/06/2020 12:30:00 PM EST [facility] ([facility]) Attender: Victorino Escobar MD 12/06/2020 12:00:00 AM EST [facility] ([facility]) Injectable Medication Administration w/ Monitoring & E ducation Attender: ORGANIZATION NPI ALIASES [facility] 11/15/2020 11:15: 00 AM EST - 11/15/2020 11:15:00 AM EST [facility] ([facility]) Outpatient Attender: Victorino Escobar MD [facility] Mike garcía 11/15/2020 11:00:00 AM EST - 11/15/2020 11:00:00 AM EST [facility] ([facility]) Attender: ORGANIZATION NPI ALIASES * 11/15/2020 12:00:00 AM EST [facility] ([facility]) Attender: Victorino Escobar MD 11/15/2020 12:00:00 AM EST [facility] ([facility]) Injectable Psychotropic Medication Administration (Inj ection Only) Attender: Jossy Mejia [facility] 10/18/2020 10:30:00 AM EST - 10/18/2020 10:30:00 AM EST [facility] ([facility]) Attender: Jossy Mejia 10/18/2020 12:00:00 AM EST [facility] ([facility]) Injectable Psychotropic Medication Administration (Inj ection Only) Attender: Jossy Mejia [facility] 10/15/2020 11:00:00 AM EST - 10/15/2020 11:00:00 AM EST [facility] ([facility]) Attender: Jossy Mejia 10/15/2020 12:00:00 AM EST [facility] ([facility]) Injectable Psychotropic Medication Administration (Inj ection Only) Attender: Jossy Mejia [facility] 10/04/2020 10:30:00 AM EST - 10/04/2020 10:30:00 AM EST [facility] ([facility]) Outpatient Attender: KALLI MOLINAURSZULA [facility] J ail 10/04/2020 10:00:00 AM EST - 10/04/2020 10:00:00 AM EST [facility] ([facility]) Attender: Jossy Mejia 10/04/2020 12:00:00 AM EST [facility] ([facility]) Attender: KALLI MOLINAURSZULA 10/04/2020 12:00: 00 AM EST [facility] ([facility]) Outpatient Referrer: [facility] 09/22/2020 0 2:27:00 PM EST schizophrenia, hallucinations, substance abuse [facility] schizophrenia, hallucinations, substance abuse Injectable Psychotropic Medication Administration (Inj ection Only) Attender: Jossy Mejia [facility] 09/12/2020 09:30:00 AM EST - 09/12/2020 09:30:00 AM EST [facility] ([facility]) Outpatient Attender: KALLI MOLINAURSZULA [facility] 09/12/2020 09:00:00 AM EST - 09/12/2020 09:00:00 AM EST [facility] ([facility]) Attender: KALLI VALLEJO 09/12/2020 12:00: 00 AM EST [facility] ([facility]) Attender: Jossy Mejia 09/12/2020 12:00:00 AM EST [facility] ([facility]) Outpatient Attender: KALLI MOLINAURSZULA [facility] ail 08/10/2020 02:00:00 AM EDT - 08/10/2020 02:00:00 AM EDT [facility] ([facility]) Attender: KALLI MOLINAURSZULA 08/10/2020 12:00: 00 AM EDT [facility] ([facility]) Injectable Psychotropic Medication Administration (Inj ection Only) Attender: Jossy Mejia [facility] Assisted 07/13/2020 02:00:00 AM EDT - 07/13/2020 02:00:00 AM EDT [facility] ([facility]) Attender: Jossy Mejia 07/13/2020 12:00:00 AM EDT [facility] ([facility]) Outpatient Attender: Pasha Treviño MD 07/12/2020 02:46:50 PM EDT [facility] Outpatient Attender: Pasha Treviño MD 06/21/2020 10:56:00 AM EDT [facility] Functional Status Medications Medication Brand Name Start Date Product Form Dose Route Admi nistrative Instructions Pharmacy Instructions Status Indications Reaction Description Data Source(s) Prazosin 1 MG Oral Capsule prazosin 07/10/2021 12:00:00 AM EDT 1 mg by mouth completed <td ID="Medicat ionRxNorm_4">443209</td><td ID="MedicationMedication_4">prazosin</td><td ID="MedicationRoute_4">by mouth</td><td ID="MedicationRouteConcept_4">Z97406</td><td ID="MedicationStartDate_4">07/10/2021</td><td ID="MedicationStopDate_4">08/09/2021</td><td ID="MedicationDosageFrequency_4">at bedtime</td><td ID="MedicationDuration_4">30</td><td ID="MedicationFormulaStrength_4">1 mg</td><td ID="MedicationDosageForm_4">capsule</td><td ID="MedicationDosageFormCode_4"></td><td ID="MedicationDosageDescription_4"></td><td ID="MedicationMedicationId_4">[id number]</td><td ID="MedicationAccount_4">[id number]</td><td ID="MedicationNpid_4">[id number]</td><td ID="MedicationAuthorFirstName_4">Anselmo</td><td ID="MedicationAuthorLastName_4">Amilcar</td><td ID="MedicationTaxonomyCode_4">[id number]</td><td ID="MedicationTaxonomyDesc_4">Nurse Practitioner</td><td ID="MedicationPhoneNumber_4">[phone]</td> [facility] olanzapine 5 MG Oral Tablet [Zyprexa] Zyprexa 05/23/2021 12:00:00 AM EDT 5 mg by mouth completed <td ID="Medica tionRxNorm_2">583967</td><td ID="MedicationMedication_2">Zyprexa</td><td ID="MedicationRoute_2">by mouth</td><td ID="MedicationRouteConcept_2">I39247</td><td ID="MedicationStartDate_2">05/23/2021</td><td ID="MedicationStopDate_2">08/09/2021</td><td ID="MedicationDosageFrequency_2">at bedtime</td><td ID="MedicationDuration_2">30</td><td ID="MedicationFormulaStrength_2">5 mg</td><td ID="MedicationDosageForm_2">tablet</td><td ID="MedicationDosageFormCode_2"></td><td ID="MedicationDosageDescription_2"></td><td ID="MedicationMedicationId_2">[id number]</td><td ID="MedicationAccount_2">[id number]</td><td ID="MedicationNpid_2">[id number]</td><td ID="MedicationAuthorFirstName_2">Anselmo</td><td ID="MedicationAuthorLastName_2">Amilcar</td><td ID="MedicationTaxonomyCode_2">[id number]</td><td ID="MedicationTaxonomyDesc_2">Nurse Practitioner</td><td ID="MedicationPhoneNumber_2">[phone]</td> [facility] ([facility]) benztropine mesylate 1 MG Oral Tablet benztropine 05/23/2021 12:00 :00 AM EDT 1 mg by mouth completed <td ID="Me dicationRxNorm_3">781530</td><td ID="MedicationMedication_3">benztropine</td><td ID="MedicationRoute_3">by mouth</td><td ID="MedicationRouteConcept_3">R07970</td><td ID="MedicationStartDate_3">05/23/2021</td><td ID="MedicationStopDate_3">08/09/2021</td><td ID="MedicationDosageFrequency_3">at bedtime</td><td ID="MedicationDuration_3">30</td><td ID="MedicationFormulaStrength_3">1 mg</td><td ID="MedicationDosageForm_3">tablet</td><td ID="MedicationDosageFormCode_3"></td><td ID="MedicationDosageDescription_3"></td><td ID="MedicationMedicationId_3">[id number]</td><td ID="MedicationAccount_3">[id number]</td><td ID="MedicationNpid_3">[id number]</td><td ID="MedicationAuthorFirstName_3">Anselmo</td><td ID="MedicationAuthorLastName_3">Amilcar</td><td ID="MedicationTaxonomyCode_3">[id number]</td><td ID="MedicationTaxonomyDesc_3">Nurse Practitioner</td><td ID="MedicationPhoneNumber_3">[phone]</td> [facility] ([facility]) 1.5 ML paliperidone palmitate 156 MG/ML Prefilled Syri nge [Invega] Invega Sustenna 04/16/2021 12:00:00 AM EDT 234 mg/1.5 compl eted <td ID="MedicationRxNorm_1">[id number]</td><td ID="MedicationMedication_1">Invega Sustenna</td><td ID="MedicationRoute_1"></td><td ID="MedicationRouteConcept_1"></td><td ID="MedicationStartDate_1">04/16/2021</td><td ID="MedicationStopDate_1"></td><td ID="MedicationDosageFrequency_1"></td><td ID="MedicationDuration_1"></td><td ID="MedicationFormulaStrength_1">234 mg/1.5 mL</td><td ID="MedicationDosageForm_1">syringe</td><td ID="MedicationDosageFormCode_1"></td><td ID="MedicationDosageDescription_1"> </td><td ID="MedicationMedicationId_1">[id number]</td><td ID="MedicationAccount_1">[id number]</td><td ID="MedicationNpid_1">[id number]</td><td ID="MedicationAuthorFirstName_1">Anselmo</td><td ID="MedicationAuthorLastName_1">Amilcar</td><td ID="MedicationTaxonomyCode_1">[id number]</td><td ID="MedicationTaxonomyDesc_1">Nurse Practitioner</td><td ID="MedicationPhoneNumber_1">[phone]</td> [facility] ([facility]) 2.625 ML paliperidone palmitate 312 MG/ML Prefilled Sy ringe [Invega] Invega Trinza 04/03/2021 12:00:00 AM EDT 819 mg/2.625 compl eted <td ID="MedicationRxNorm_3">[id number]</td><td ID="MedicationMedication_3">Invega Trinza</td><td ID="MedicationRoute_3">intramuscularly</td><td ID="MedicationRouteConcept_3"></td><td ID="MedicationStartDate_3">04/03/2021</td><td ID="MedicationStopDate_3">07/02/2021</td><td ID="MedicationDosageFrequency_3">every three months</td><td ID="MedicationDuration_3">90</td><td ID="MedicationFormulaStrength_3">819 mg/2.625 mL</td><td ID="MedicationDosageForm_3">syringe</td><td ID="MedicationDosageFormCode_3"></td><td ID="MedicationDosageDescription_3"></td><td ID="MedicationMedicationId_3">[id number]</td><td ID="MedicationAccount_3">[id number]</td><td ID="MedicationNpid_3">[id number]</td><td ID="MedicationAuthorFirstName_3">Anselmo</td><td ID="MedicationAuthorLastName_3">Amilcar</td><td ID="MedicationTaxonomyCode_3">[id number]</td><td ID="MedicationTaxonomyDesc_3"> Nurse Practitioner</td><td ID="MedicationPhoneNumber_3">[phone]</td> [facility] ([facility]) 2.625 ML paliperidone palmitate 312 MG/ML Prefilled Sy ringe [Invega] Ml Roth 04/03/2021 12:00:00 AM EDT 819 mg/2.625 compl eted <td ID="MedicationRxNorm_4">[id number]</td><td ID="MedicationMedication_4">Invega Trinza</td><td ID="MedicationRoute_4">intramuscularly</td><td ID="MedicationRouteConcept_4"></td><td ID="MedicationStartDate_4">04/03/2021</td><td ID="MedicationStopDate_4">07/02/2021</td><td ID="MedicationDosageFrequency_4">every three months</td><td ID="MedicationDuration_4">90</td><td ID="MedicationFormulaStrength_4">819 mg/2.625 mL</td><td ID="MedicationDosageForm_4">syringe</td><td ID="MedicationDosageFormCode_4"></td><td ID="MedicationDosageDescription_4"></td><td ID="MedicationMedicationId_4">[id number]</td><td ID="MedicationAccount_4">[id number]</td><td ID="MedicationNpid_4">[id number]</td><td ID="MedicationAuthorFirstName_4">Anselmo</td><td ID="MedicationAuthorLastName_4">Amilcar</td><td ID="MedicationTaxonomyCode_4">[id number]</td><td ID="MedicationTaxonomyDesc_4"> Nurse Practitioner</td><td ID="MedicationPhoneNumber_4">[phone]</td> [facility] ([facility]) haloperidol decanoate haloperidol decanoate 04/03/2021 12:00:00 AM EDT 100 mg/mL completed <td ID="Me dicationRxNorm_2">[id number]</td><td ID="MedicationMedication_2">haloperidol decanoate</td><td ID="MedicationRoute_2">intramuscularly</td><td ID="MedicationRouteConcept_2"> </td><td ID="MedicationStartDate_2">04/03/2021</td><td ID="MedicationStopDate_2">04/03/2021</td><td ID="MedicationDosageFrequency_2">every four weeks</td><td ID="MedicationDuration_2">28</td><td ID="MedicationFormulaStrength_2">100 mg/mL</td><td ID="MedicationDosageForm_2">solution</td><td ID="MedicationDosageFormCode_2"></td><td ID="MedicationDosageDescription_2"></td><td ID="MedicationMedicationId_2">[id number]</td><td ID="MedicationAccount_2">[id number]</td><td ID="MedicationNpid_2">[id number]</td><td ID="MedicationAuthorFirstName_2">Anselmo</td><td ID="MedicationAuthorLastName_2">Amilcar</td><td ID="MedicationTaxonomyCode_2">[id number]</td><td ID="MedicationTaxonomyDesc_2"> Nurse Practitioner</td><td ID="MedicationPhoneNumber_2">[phone]</td> [facility] ([facility]) benztropine mesylate 1 MG Oral Tablet benztropine 04/03/2021 12:00 :00 AM EDT 1 mg by mouth completed <td ID="Me dicationRxNorm_2">318682</td><td ID="MedicationMedication_2">benztropine</td><td ID="MedicationRoute_2">by mouth</td><td ID="MedicationRouteConcept_2">J26361</td><td ID="MedicationStartDate_2">04/03/2021</td><td ID="MedicationStopDate_2">05/03/2021</td><td ID="MedicationDosageFrequency_2">at bedtime</td><td ID="MedicationDuration_2">30</td><td ID="MedicationFormulaStrength_2">1 mg</td><td ID="MedicationDosageForm_2">tablet</td><td ID="MedicationDosageFormCode_2"></td><td ID="MedicationDosageDescription_2"></td><td ID="MedicationMedicationId_2">[id number]</td><td ID="MedicationAccount_2">[id number]</td><td ID="MedicationNpid_2">[id number]</td><td ID="MedicationAuthorFirstName_2">Anselmo</td><td ID="MedicationAuthorLastName_2">Amilcar</td><td ID="MedicationTaxonomyCode_2">[id number]</td><td ID="MedicationTaxonomyDesc_2">Nurse Practitioner</td><td ID="MedicationPhoneNumber_2">[phone]</td> [facility] ([facility]) olanzapine 5 MG Oral Tablet [Zyprexa] Zyprexa 04/03/2021 12:00:00 AM EDT 5 mg by mouth completed <td ID="Medica tionRxNorm_1">287445</td><td ID="MedicationMedication_1">Zyprexa</td><td ID="MedicationRoute_1">by mouth</td><td ID="MedicationRouteConcept_1">B66470</td><td ID="MedicationStartDate_1">04/03/2021</td><td ID="MedicationStopDate_1">05/03/2021</td><td ID="MedicationDosageFrequency_1">at bedtime</td><td ID="MedicationDuration_1">30</td><td ID="MedicationFormulaStrength_1">5 mg</td><td ID="MedicationDosageForm_1">tablet</td><td ID="MedicationDosageFormCode_1"></td><td ID="MedicationDosageDescription_1"></td><td ID="MedicationMedicationId_1">[id number]</td><td ID="MedicationAccount_1">[id number]</td><td ID="MedicationNpid_1">[id number]</td><td ID="MedicationAuthorFirstName_1">Anselmo</td><td ID="MedicationAuthorLastName_1">Amilcar</td><td ID="MedicationTaxonomyCode_1">[id number]</td><td ID="MedicationTaxonomyDesc_1">Nurse Practitioner</td><td ID="MedicationPhoneNumber_1">[phone]</td> [facility] ([facility]) 2.625 ML paliperidone palmitate 312 MG/ML Prefilled Sy ringe [Invega] Invega Trinza 04/03/2021 12:00:00 AM EDT 819 mg/2.625 compl eted <td ID="MedicationRxNorm_5">[id number]</td><td ID="MedicationMedication_5">Invega Trinza</td><td ID="MedicationRoute_5">intramuscularly</td><td ID="MedicationRouteConcept_5"></td><td ID="MedicationStartDate_5">04/03/2021</td><td ID="MedicationStopDate_5">07/02/2021</td><td ID="MedicationDosageFrequency_5">every three months</td><td ID="MedicationDuration_5">90</td><td ID="MedicationFormulaStrength_5">819 mg/2.625 mL</td><td ID="MedicationDosageForm_5">syringe</td><td ID="MedicationDosageFormCode_5"></td><td ID="MedicationDosageDescription_5"></td><td ID="MedicationMedicationId_5">[id number]</td><td ID="MedicationAccount_5">[id number]</td><td ID="MedicationNpid_5">[id number]</td><td ID="MedicationAuthorFirstName_5">Anselmo</td><td ID="MedicationAuthorLastName_5">Amilcar</td><td ID="MedicationTaxonomyCode_5">[id number]</td><td ID="MedicationTaxonomyDesc_5"> Nurse Practitioner</td><td ID="MedicationPhoneNumber_5">[phone]</td> [facility] ([facility]) benztropine mesylate 1 MG Oral Tablet benztropine 04/03/2021 12:00 :00 AM EDT 1 mg by mouth completed <td ID="Me dicationRxNorm_4">652565</td><td ID="MedicationMedication_4">benztropine</td><td ID="MedicationRoute_4">by mouth</td><td ID="MedicationRouteConcept_4">Y53629</td><td ID="MedicationStartDate_4">04/03/2021</td><td ID="MedicationStopDate_4">05/03/2021</td><td ID="MedicationDosageFrequency_4">at bedtime</td><td ID="MedicationDuration_4">30</td><td ID="MedicationFormulaStrength_4">1 mg</td><td ID="MedicationDosageForm_4">tablet</td><td ID="MedicationDosageFormCode_4"></td><td ID="MedicationDosageDescription_4"></td><td ID="MedicationMedicationId_4">[id number]</td><td ID="MedicationAccount_4">[id number]</td><td ID="MedicationNpid_4">[id number]</td><td ID="MedicationAuthorFirstName_4">Anselmo</td><td ID="MedicationAuthorLastName_4">Amilcar</td><td ID="MedicationTaxonomyCode_4">[id number]</td><td ID="MedicationTaxonomyDesc_4">Nurse Practitioner</td><td ID="MedicationPhoneNumber_4">[phone]</td> [facility] ([facility]) olanzapine 5 MG Oral Tablet [Zyprexa] Zyprexa 04/03/2021 12:00:00 AM EDT 5 mg by mouth completed <td ID="Medica tionRxNorm_3">666932</td><td ID="MedicationMedication_3">Zyprexa</td><td ID="MedicationRoute_3">by mouth</td><td ID="MedicationRouteConcept_3">P82872</td><td ID="MedicationStartDate_3">04/03/2021</td><td ID="MedicationStopDate_3">05/03/2021</td><td ID="MedicationDosageFrequency_3">at bedtime</td><td ID="MedicationDuration_3">30</td><td ID="MedicationFormulaStrength_3">5 mg</td><td ID="MedicationDosageForm_3">tablet</td><td ID="MedicationDosageFormCode_3"></td><td ID="MedicationDosageDescription_3"></td><td ID="MedicationMedicationId_3">[id number]</td><td ID="MedicationAccount_3">[id number]</td><td ID="MedicationNpid_3">[id number]</td><td ID="MedicationAuthorFirstName_3">Anselmo</td><td ID="MedicationAuthorLastName_3">Amilcar</td><td ID="MedicationTaxonomyCode_3">[id number]</td><td ID="MedicationTaxonomyDesc_3">Nurse Practitioner</td><td ID="MedicationPhoneNumber_3">[phone]</td> [facility] ([facility]) 2.625 ML paliperidone palmitate 312 MG/ML Prefilled Sy ringe [Invega] Invega Trinza 04/03/2021 12:00:00 AM EDT 819 mg/2.625 compl eted <td ID="MedicationRxNorm_2">[id number]</td><td ID="MedicationMedication_2">Invega Trinza</td><td ID="MedicationRoute_2">intramuscularly</td><td ID="MedicationRouteConcept_2"></td><td ID="MedicationStartDate_2">04/03/2021</td><td ID="MedicationStopDate_2">07/02/2021</td><td ID="MedicationDosageFrequency_2">every three months</td><td ID="MedicationDuration_2">90</td><td ID="MedicationFormulaStrength_2">819 mg/2.625 mL</td><td ID="MedicationDosageForm_2">syringe</td><td ID="MedicationDosageFormCode_2"></td><td ID="MedicationDosageDescription_2"></td><td ID="MedicationMedicationId_2">[id number]</td><td ID="MedicationAccount_2">[id number]</td><td ID="MedicationNpid_2">[id number]</td><td ID="MedicationAuthorFirstName_2">Anselmo</td><td ID="MedicationAuthorLastName_2">Amilcar</td><td ID="MedicationTaxonomyCode_2">[id number]</td><td ID="MedicationTaxonomyDesc_2"> Nurse Practitioner</td><td ID="MedicationPhoneNumber_2">[phone]</td> [facility] ([facility]) haloperidol decanoate haloperidol decanoate 10/04/2020 12:00:00 AM EST 100 mg/mL completed <td ID="Me dicationRxNorm_1">[id number]</td><td ID="MedicationMedication_1">haloperidol decanoate</td><td ID="MedicationRoute_1">intramuscularly</td><td ID="MedicationRouteConcept_1"> </td><td ID="MedicationStartDate_1">10/04/2020</td><td ID="MedicationStopDate_1">04/03/2021</td><td ID="MedicationDosageFrequency_1">as directed</td><td ID="MedicationDuration_1">21</td><td ID="MedicationFormulaStrength_1">100 mg/mL</td><td ID="MedicationDosageForm_1">solution</td><td ID="MedicationDosageFormCode_1"></td><td ID="MedicationDosageDescription_1"></td><td ID="MedicationMedicationId_1">[id number]</td><td ID="MedicationAccount_1">[id number]</td><td ID="MedicationNpid_1">[id number]</td><td ID="MedicationAuthorFirstName_1">Victorino</td><td ID="MedicationAuthorLastName_1">Escobar</td><td ID="MedicationTaxonomyCode_1">[id number]</td><td ID="MedicationTaxonomyDesc_1"> Psychiatry</td><td ID="MedicationPhoneNumber_1">[phone]</td> [facility] ([facility]) 100 mg/mL 10/02/2020 12:00:00 AM EST solution 1 INJECT 1ML INTRAMUSCULARLY EVERY 3 WEEKS INJECT 1ML INTRAMUSCULARLY EVERY 3 WEEKS SOLD: 10/04/2020 [facility] 10 mg 09/28/2020 12:00:00 AM EST tablet 60 TAKE ONE TABLET BY MOUTH TWICE A DAY FOR 30 DAYS TAKE ONE TABLET BY MOUTH TWICE A DAY FOR 30 DAYS SOLD: 10/04/2020 [facility] 50 mg 09/28/2020 12:00:00 AM EST tablet 30 TAKE ONE TABLET BY MOUTH EVERY DAY NEEDED FOR ANXIETY FOR UP TO 30 DOSES TAKE ONE TABLET BY MOUTH EVERY DAY NEEDED FOR ANXIETY FOR UP TO 30 DOSES SOLD: 10/04/2020 [facility] Trazodone Hydrochloride 50 MG Oral Tablet trazodone 2019 12:00:00 AM EST 50 mg by mouth completed <td ID="Medic ationRxNorm_5">422072</td><td ID="MedicationMedication_5">trazodone</td><td ID="MedicationRoute_5">by mouth</td><td ID="MedicationRouteConcept_5">U61860</td><td ID="MedicationStartDate_5">09/12/2020</td><td ID="MedicationStopDate_5">10/12/2020</td><td ID="MedicationDosageFrequency_5">every night</td><td ID="MedicationDuration_5">30</td><td ID="MedicationFormulaStrength_5">50 mg</td><td ID="MedicationDosageForm_5">tablet</td><td ID="MedicationDosageFormCode_5"></td><td ID="MedicationDosageDescription_5"></td><td ID="MedicationMedicationId_5">[id number]</td><td ID="MedicationAccount_5">[id number]</td><td ID="MedicationNpid_5">[id number]</td><td ID="MedicationAuthorFirstName_5">Kalli</td><td ID="MedicationAuthorLastName_5">Egorho</td><td ID="MedicationTaxonomyCode_5">[id number]</td><td ID="MedicationTaxonomyDesc_5">Nurse Practitioner</td><td ID="MedicationPhoneNumber_5">[phone]</td> [facility] ([facility]) Trazodone Hydrochloride 50 MG Oral Tablet trazodone 2019 12:00:00 AM EST 50 mg by mouth completed <td ID="Medic ationRxNorm_1">512139</td><td ID="MedicationMedication_1">trazodone</td><td ID="MedicationRoute_1">by mouth</td><td ID="MedicationRouteConcept_1">W71515</td><td ID="MedicationStartDate_1">09/12/2020</td><td ID="MedicationStopDate_1">10/12/2020</td><td ID="MedicationDosageFrequency_1">every night</td><td ID="MedicationDuration_1">30</td><td ID="MedicationFormulaStrength_1">50 mg</td><td ID="MedicationDosageForm_1">tablet</td><td ID="MedicationDosageFormCode_1"></td><td ID="MedicationDosageDescription_1"></td><td ID="MedicationMedicationId_1">[id number]</td><td ID="MedicationAccount_1">[id number]</td><td ID="MedicationNpid_1">[id number]</td><td ID="MedicationAuthorFirstName_1">Kalli</td><td ID="MedicationAuthorLastName_1">Egorho</td><td ID="MedicationTaxonomyCode_1">[id number]</td><td ID="MedicationTaxonomyDesc_1">Nurse Practitioner</td><td ID="MedicationPhoneNumber_1">[phone]</td> [facility] ([facility]) Haldol Decanoate Haldol Decanoate 09/12/2020 12:00:00 AM EST 100 mg/mL completed <td ID="MedicationRx Norm_4">3901753</td><td ID="MedicationMedication_4">Haldol Decanoate</td><td ID="MedicationRoute_4">intramuscularly</td><td ID="MedicationRouteConcept_4"></td><td ID="MedicationStartDate_4">09/12/2020</td><td ID="MedicationStopDate_4">09/15/2020</td><td ID="MedicationDosageFrequency_4">as directed</td><td ID="MedicationDuration_4">1</td><td ID="MedicationFormulaStrength_4">100 mg/mL</td><td ID="MedicationDosageForm_4">solution</td><td ID="MedicationDosageFormCode_4"></td><td ID="MedicationDosageDescription_4"></td><td ID="MedicationMedicationId_4">[id number]</td><td ID="MedicationAccount_4">[id number]</td><td ID="MedicationNpid_4">[id number]</td><td ID="MedicationAuthorFirstName_4">Kalli</td><td ID="MedicationAuthorLastName_4">Egorho</td><td ID="MedicationTaxonomyCode_4">[id number]</td><td ID="MedicationTaxonomyDesc_4">Nurse Practitioner</td><td ID="MedicationPhoneNumber_4">[phone]</td> [facility] ([facility]) quetiapine 300 MG Oral Tablet quetiapine 01/06/2020 12:00:00 AM EST 300 mg completed <td ID="Medicat ionRxNorm_4">995379</td><td ID="MedicationMedication_4">quetiapine</td><td ID="MedicationRoute_4"></td><td ID="MedicationRouteConcept_4"></td><td ID="MedicationStartDate_4">01/06/2020</td><td ID="MedicationStopDate_4">01/05/2021</td><td ID="MedicationDosageFrequency_4">at bedtime</td><td ID="MedicationDuration_4">30</td><td ID="MedicationFormulaStrength_4">300 mg</td><td ID="MedicationDosageForm_4">tablet</td><td ID="MedicationDosageFormCode_4"></td><td ID="MedicationDosageDescription_4"></td><td ID="MedicationMedicationId_4">[id number]</td><td ID="MedicationAccount_4">[id number]</td><td ID="MedicationNpid_4">[id number]</td><td ID="MedicationAuthorFirstName_4">Dane</td><td ID="MedicationAuthorLastName_4">Jay</td><td ID="MedicationTaxonomyCode_4">[id number]</td><td ID="MedicationTaxonomyDesc_4">Psychiatric/Mental Health</td><td ID="MedicationPhoneNumber_4">[phone]</td> [facility] ([facility]) quetiapine 300 MG Oral Tablet quetiapine 01/06/2020 12:00:00 AM EST 300 mg completed <td ID="Medicat ionRxNorm_1">642289</td><td ID="MedicationMedication_1">quetiapine</td><td ID="MedicationRoute_1"></td><td ID="MedicationRouteConcept_1"></td><td ID="MedicationStartDate_1">01/06/2020</td><td ID="MedicationStopDate_1">01/05/2021</td><td ID="MedicationDosageFrequency_1">at bedtime</td><td ID="MedicationDuration_1">30</td><td ID="MedicationFormulaStrength_1">300 mg</td><td ID="MedicationDosageForm_1">tablet</td><td ID="MedicationDosageFormCode_1"></td><td ID="MedicationDosageDescription_1"></td><td ID="MedicationMedicationId_1">[id number]</td><td ID="MedicationAccount_1">[id number]</td><td ID="MedicationNpid_1">[id number]</td><td ID="MedicationAuthorFirstName_1">Dane</td><td ID="MedicationAuthorLastName_1">Loida</td><td ID="MedicationTaxonomyCode_1">[id number]</td><td ID="MedicationTaxonomyDesc_1">Psychiatric/Mental Health</td><td ID="MedicationPhoneNumber_1">[phone]</td> [facility] ([facility]) quetiapine 300 MG Oral Tablet quetiapine 01/06/2020 12:00:00 AM EST 300 mg completed <td ID="Medicat ionRxNorm_5">341388</td><td ID="MedicationMedication_5">quetiapine</td><td ID="MedicationRoute_5"></td><td ID="MedicationRouteConcept_5"></td><td ID="MedicationStartDate_5">01/06/2020</td><td ID="MedicationStopDate_5">01/05/2021</td><td ID="MedicationDosageFrequency_5">at bedtime</td><td ID="MedicationDuration_5">30</td><td ID="MedicationFormulaStrength_5">300 mg</td><td ID="MedicationDosageForm_5">tablet</td><td ID="MedicationDosageFormCode_5"></td><td ID="MedicationDosageDescription_5"></td><td ID="MedicationMedicationId_5">[id number]</td><td ID="MedicationAccount_5">[id number]</td><td ID="MedicationNpid_5">[id number]</td><td ID="MedicationAuthorFirstName_5">Dane</td><td ID="MedicationAuthorLastName_5">Loida</td><td ID="MedicationTaxonomyCode_5">[id number]</td><td ID="MedicationTaxonomyDesc_5">Psychiatric/Mental Health</td><td ID="MedicationPhoneNumber_5">[phone]</td> [facility] ([facility]) [facility]12/20/2019 12:00:00 AM EST mg/3.9 completed <td ID="MedicationRxNorm_3">[id number]</td><td ID="MedicationMedication_3">Ari</td><td ID="MedicationRoute_3">intramuscularly</td><td ID="MedicationRouteConcept_3"></td><td ID="MedicationStartDate_3">12/20/2019</td><td ID="MedicationStopDate_3">09/12/2020</td><td ID="MedicationDosageFrequency_3"></td><td ID="MedicationDuration_3"></td><td ID="MedicationFormulaStrength_3">1,064 mg/3.9 mL</td><td ID="MedicationDosageForm_3">suspension,extended rel syring</td><td ID="MedicationDosageFormCode_3"></td><td ID="MedicationDosageDescription_3">as directed</td><td ID="MedicationMedicationId_3">[id number]</td><td ID="MedicationAccount_3">[id number]</td><td ID="MedicationNpid_3">[id number]</td><td ID="MedicationAuthorFirstName_3">Dane</td><td ID="MedicationAuthorLastName_3">Loida</td><td ID="MedicationTaxonomyCode_3">[id number]</td><td ID="MedicationTaxonomyDesc_3"> Psychiatric/Mental Health</td><td ID="MedicationPhoneNumber_3">[phone]</td> [facility] ([facility]) Trazodone Hydrochloride 50 MG Oral Tablet trazodone 2018 12:00:00 AM EDT 50 mg by mouth completed <td ID="Medic ationRxNorm_2">748074</td><td ID="MedicationMedication_2">trazodone</td><td ID="MedicationRoute_2">by mouth</td><td ID="MedicationRouteConcept_2">D72865</td><td ID="MedicationStartDate_2">06/10/2019</td><td ID="MedicationStopDate_2">09/12/2020</td><td ID="MedicationDosageFrequency_2">at bedtime</td><td ID="MedicationDuration_2"></td><td ID="MedicationFormulaStrength_2">50 mg</td><td ID="MedicationDosageForm_2">tablet</td><td ID="MedicationDosageFormCode_2"></td><td ID="MedicationDosageDescription_2"></td><td ID="MedicationMedicationId_2">[id number]</td><td ID="MedicationAccount_2">[id number]</td><td ID="MedicationNpid_2">[id number]</td><td ID="MedicationAuthorFirstName_2">Dane</td><td ID="MedicationAuthorLastName_2">Jay</td><td ID="MedicationTaxonomyCode_2">[id number]</td><td ID="MedicationTaxonomyDesc_2">Psychiatric/Mental Health</td><td ID="MedicationPhoneNumber_2">[phone]</td> [facility] ([facility]) Amantadine Hydrochloride 100 MG Oral Capsule amantadine HCl 07/30/2017 12:00:00 AM EDT 100 mg by mouth completed <td ID="MedicationRxNorm_1">153672</td><td ID="MedicationMedication_1">amantadine HCl</td><td ID="MedicationRoute_1">by mouth</td><td ID="MedicationRouteConcept_1">Z73111</td><td ID="MedicationStartDate_1">07/30/2017</td><td ID="MedicationStopDate_1">09/12/2020</td><td ID="MedicationDosageFrequency_1">every morning</td><td ID="MedicationDuration_1"></td><td ID="MedicationFormulaStrength_1">100 mg</td><td ID="MedicationDosageForm_1">capsule</td><td ID="MedicationDosageFormCode_1"></td><td ID="MedicationDosageDescription_1"></td><td ID="MedicationMedicationId_1">[id number]</td><td ID="MedicationAccount_1">[id number]</td><td ID="MedicationNpid_1">[id number]</td><td ID="MedicationAuthorFirstName_1">Dane</td><td ID="MedicationAuthorLastName_1">Loida</td><td ID="MedicationTaxonomyCode_1">[id number]</td><td ID="MedicationTaxonomyDesc_1">Psychiatric/Mental Health</td><td ID="MedicationPhoneNumber_1">[phone]</td> [facility] ([facility]) Insurance Providers Payer name Policy type / Coverage type Policy ID Covered republican ID Covered republican's relationship to shafer Policy Shafer Plan Information Medicaid S [id number] S [id number] Managed Care - Community Plan [facility] P [id number] S [id number] Medicaid S [id number] S [id number] [facility] I [id number] Self [id number] [facility] I [id number] Self [id number] [facility] I [id number] Self [id number] Managed Care - C Community Plan P [id number] S [id number] Medicaid S [id number] S [id number] Managed Care - UHC Community Plan P [id number] S [id number] [employer] COMMUNITY PLAN MCDHMO [id number] SP [id number] [facility] MAN CRE [id number] SP [id number] [facility] [id number] SP [id number] SELF PAY [facility] OFFICE OF MENTAL HEALTH UNAVAILABLE S UNAVAILABLE MEDICAID [id number] S [id number] [facility] OFFICE OF MENTAL HEALTH [id number] S [id number] [employer] COMMUNITY PLAN MCDO [id number] SP [id number] [facility] OFFICE OF MENTAL HEALTH [id number] S [id number] [facility] [id number] SP [id number] SELF PAY ONLY [id number] SP [id number] [facility] [id number] SP [id number] SELF PAY SP [facility]) O [id number] S [id number] [facility] [id number] SP [id number] Self Pay P UNAVAILABLE S UNAVAILA BLE [facility]) O [id number] S [id number] [facility] [id number] SP [id number] MEDICAID [id number] SP [id number] [employer] COMMUNITY PLAN MCDHMO [id number] SP [id number] MEDICAID [id number] SP [id number] Problems, Conditions, and Diagnoses Code Display Name Description Problem Type Effective Dates Data Source(s) F11.10 Opioid abuse, uncomplicated F11.10 - Opioid abus e, uncomplicated Diagnosis 02/27/2021 08:12:00 PM EDT [facility] 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 F15.20 Other stimulant dependence, uncomplicate d Stimulant Use Disorder, Moderate: Amphetamine-type substance Condition 07/29/2021 12:00:00 AM EDT [facility] ([facility]) F10.20 Alcohol dependence, uncomplicated Alcohol Use Disorder , Severe Condition 07/29/2021 12:00:00 AM EDT [facility] ([facility]) F17.200 Nicotine dependence, unspecified, uncomp licated Tobacco Use Disorder, Moderate Condition 07/29/2021 12:00:00 AM EDT [facility] ([facility]) F12.20 Cannabis dependence, uncomplicated Cannabis Use Disorder, Moderate Condition 07/29/2021 12:00:00 AM EDT [facility] ([facility]) F20.9 Schizophrenia, unspecified Schizophrenia Condition 07/29/2021 12:00:00 AM EDT [facility] ([facility]) Surgeries/Procedures Procedure Description Date Indications Data Source(s) Comprehensive medication services, per 15 minutes 07/29/2021 12:00:00 AM EDT - 07/29/2021 12:00:00 AM EDT [facility] ([facility]) Comprehensive medication services, per 15 minutes 07/29/2021 12:00:00 AM EDT [facility] ([facility]) Comprehensive medication services, per 15 minutes 06/24/2021 12:00:00 AM EDT - 06/24/2021 12:00:00 AM EDT [facility] ([facility]) Comprehensive medication services, per 15 minutes 06/24/2021 12:00:00 AM EDT [facility] ([facility]) THERAPEUTIC PROPHYLACTIC/DX INJECTION SUBQ/IM 05/27/2021 12:00:00 AM EDT - 05/27/2021 12:00:00 AM EDT [facility] ([facility]) THERAPEUTIC PROPHYLACTIC/DX INJECTION SUBQ/IM 05/27/20 12:00:00 AM EDT [facility] ([facility]) Brief Individual Psychotherapy - 30 min 05/13/2021 12:00:00 AM EDT - 05/13/2021 12:00:00 AM EDT [facility] ([facility]) Brief Individual Psychotherapy - 30 min 05/13/2021 12: 00:00 AM EDT [facility] ([facility]) Comprehensive medication services, per 15 minutes 04/04/2021 12:00:00 AM EDT - 04/04/2021 12:00:00 AM EDT [facility] ([facility]) Comprehensive medication services, per 15 minutes 04/03/2021 12:00:00 AM EDT [facility] ([facility]) OFFICE OUTPATIENT VISIT 15 MINUTES 04/03 12:00:00 AM EDT - 04/03/2021 12:00:00 AM EDT [facility] ([facility]) Psychotherapy ADD ON - 30 Minutes 04/03/2021 12:00:00 AM EDT [facility] ([facility]) OFFICE OUTPATIENT VISIT 15 MINUTES 04/03/2021 12:00:00 AM EDT [facility] ([facility]) OFFICE OUTPATIENT VISIT 15 MINUTES 03/27 12:00:00 AM EDT - 03/27/2021 12:00:00 AM EDT [facility] ([facility]) OFFICE OUTPATIENT VISIT 15 MINUTES 03/27/2021 12:00:00 AM EDT [facility] ([facility]) OFFICE OUTPATIENT VISIT 15 MINUTES 03/19 12:00:00 AM EDT - 03/19/2021 12:00:00 AM EDT [facility] ([facility]) OFFICE OUTPATIENT VISIT 15 MINUTES 03/19/2021 12:00:00 AM EDT [facility] ([facility]) OFFICE OUTPATIENT VISIT 15 MINUTES 02/12 12:00:00 AM EDT - 02/12/2021 12:00:00 AM EDT [facility] ([facility]) OFFICE OUTPATIENT VISIT 15 MINUTES 02/12/2021 12:00:00 AM EDT [facility] ([facility]) OFFICE OUTPATIENT VISIT 15 MINUTES 02/07 12:00:00 AM EDT - 02/07/2021 12:00:00 AM EDT [facility] ([facility]) OFFICE OUTPATIENT VISIT 15 MINUTES 02/07/2021 12:00:00 AM EDT [facility] ([facility]) Brief Individual Psychotherapy - 30 min 02/01/2021 12:00:00 AM EDT - 02/01/2021 12:00:00 AM EDT [facility] ([facility]) Brief Individual Psychotherapy - 30 min 02/01/2021 12: 00:00 AM EDT [facility] ([facility]) OFFICE OUTPATIENT VISIT 15 MINUTES 01/23 12:00:00 AM EDT - 01/23/2021 12:00:00 AM EDT [facility] ([facility]) OFFICE OUTPATIENT VISIT 15 MINUTES 01/23/2021 12:00:00 AM EDT [facility] ([facility]) THERAPEUTIC PROPHYLACTIC/DX INJECTION SUBQ/IM 01/23/2021 12:00:00 AM EDT - 01/23/2021 12:00:00 AM EDT [facility] ([facility]) THERAPEUTIC PROPHYLACTIC/DX INJECTION SUBQ/IM 01/24/20 12:00:00 AM EDT [facility] ([facility]) Comprehensive medication services, per 15 minutes 01/18/2021 12:00:00 AM EDT - 01/18/2021 12:00:00 AM EDT [facility] ([facility]) Comprehensive medication services, per 15 minutes 01/18/2021 12:00:00 AM EDT [facility] ([facility]) OFFICE OUTPATIENT VISIT 15 MINUTES 01/17 12:00:00 AM EDT - 01/17/2021 12:00:00 AM EDT [facility] ([facility]) OFFICE OUTPATIENT VISIT 15 MINUTES 01/17/2021 12:00:00 AM EDT [facility] ([facility]) MHC Telemed E/M Lvl 3--Est pt 01/01/2021 12:00:00 AM EST - 01/01/2021 12:00:00 AM EST [facility] ([facility]) MHC Telemed E/M Lvl 3--Est pt 01/01/2021 12:00:[address] [facility] ([facility]) THERAPEUTIC PROPHYLACTIC/DX INJECTION SUBQ/IM 12/28/2020 12:00:00 AM EST - 12/28/2020 12:00:00 AM EST [facility] ([facility]) THERAPEUTIC PROPHYLACTIC/DX INJECTION SUBQ/IM 12/28/19 12:00:00 AM EST [facility] ([facility]) MHC Telemed E/M Lvl 3--Est pt 12/20/2020 12:00:00 AM EST - 12/20/2020 12:00:00 AM EST [facility] ([facility]) MHC Telemed E/M Lvl 3--Est pt 12/20/2020 12:00:[address] [facility] ([facility]) MHC Telemed E/M Lvl 3--Est pt 12/06/2020 12:00:00 AM EST - 12/06/2020 12:00:00 AM EST [facility] ([facility]) MHC Telemed E/M Lvl 3--Est pt 12/06/2020 12:00:[address] [facility] ([facility]) Comprehensive medication services, per 15 minutes 11/15/2020 12:00:00 AM EST - 11/15/2020 12:00:00 AM EST [facility] ([facility]) Comprehensive medication services, per 15 minutes 11/15/2020 12:00:00 AM EST [facility] ([facility]) OFFICE OUTPATIENT VISIT 15 MINUTES 11/15 12:00:00 AM EST - 11/15/2020 12:00:00 AM EST [facility] ([facility]) OFFICE OUTPATIENT VISIT 15 MINUTES 11/15/2020 12:00:00 AM EST [facility] ([facility]) THERAPEUTIC PROPHYLACTIC/DX INJECTION SUBQ/IM 10/18/2020 12:00:00 AM EST - 10/18/2020 12:00:00 AM EST [facility] ([facility]) THERAPEUTIC PROPHYLACTIC/DX INJECTION SUBQ/IM 10/18/20 20 12:00:00 AM EST [facility] ([facility]) THERAPEUTIC PROPHYLACTIC/DX INJECTION SUBQ/IM 10/15/2020 12:00:00 AM EST - 10/15/2020 12:00:00 AM EST [facility] ([facility]) THERAPEUTIC PROPHYLACTIC/DX INJECTION SUBQ/IM 10/15/20 20 12:00:00 AM EST [facility] ([facility]) THERAPEUTIC PROPHYLACTIC/DX INJECTION SUBQ/IM 10/04/2020 12:00:00 AM EST - 10/04/2020 12:00:00 AM EST [facility] ([facility]) THERAPEUTIC PROPHYLACTIC/DX INJECTION SUBQ/IM 10/04/20 20 12:00:00 AM EST [facility] ([facility]) OFFICE OUTPATIENT VISIT 15 MINUTES 10/04 12:00:00 AM EST - 10/04/2020 12:00:00 AM EST [facility] ([facility]) OFFICE OUTPATIENT VISIT 15 MINUTES 10/04/2020 12:00:00 AM EST [facility] ([facility]) OFFICE OUTPATIENT VISIT 15 MINUTES 09/12 12:00:00 AM EST - 09/12/2020 12:00:00 AM EST [facility] ([facility]) OFFICE OUTPATIENT VISIT 15 MINUTES 09/12/2020 12:00:00 AM EST [facility] ([facility]) THERAPEUTIC PROPHYLACTIC/DX INJECTION SUBQ/IM 09/12/2020 12:00:00 AM EST - 09/12/2020 12:00:00 AM EST [facility] ([facility]) THERAPEUTIC PROPHYLACTIC/DX INJECTION SUBQ/IM 09/12/20 20 12:00:00 AM EST [facility] ([facility]) OFFICE OUTPATIENT VISIT 15 MINUTES 08/10 12:00:00 AM EDT - 08/10/2020 12:00:00 AM EDT [facility] ([facility]) OFFICE OUTPATIENT VISIT 15 MINUTES 08/10/2020 12:00:00 AM EDT [facility] ([facility]) THERAPEUTIC PROPHYLACTIC/DX INJECTION SUBQ/IM 07/13/2020 12:00:00 AM EDT - 07/13/2020 12:00:00 AM EDT [facility] ([facility]) THERAPEUTIC PROPHYLACTIC/DX INJECTION SUBQ/IM 07/13/20 20 12:00:00 AM EDT [facility] ([facility]) Results ID Date Data Source [id number] 07/19/2021 10:40:00 AM EDT [facility] Name Value Range Interpretation Code Description Data Michelle rce(s) Supporting Document(s) SARS coronavirus 2 RNA [Presence] in Res piratory specimen by [facility]MI with probe detection NEGATIVE [facility] This lab was ordered by [facility] a nd reported by [facility]. ID Date Data Source [id number] 07/19/2021 09:50:00 AM EDT [facility] Name Value Range Interpretation Code Description Data Michelle rce(s) Supporting Document(s) SARS COVID ANTIGEN NEGATIVE [facility] This lab was ordered by [facility] a nd reported by [facility]. ID Date Data Source [id number] 06/04/2021 08:17:00 PM EDT [facility] Name Value Range Interpretation Code Description Data Michelle rce(s) Supporting Document(s) SARS coronavirus 2 RNA [Presence] in Res piratory specimen by OMI with probe detection NEGATIVE [facility] This lab was ordered by [facility] a nd reported by [facility]. ID Date Data Source [id number] 05/01/2021 01:57:00 PM EDT [facility] Name Value Range Interpretation Code Description Data Michelle rce(s) Supporting Document(s) SARS coronavirus 2 RNA [Presence] in Res piratory specimen by OMI with probe detection NEGATIVE [facility] This lab was ordered by [facility] a nd reported by [facility]. ID Date Data Source [id number] 04/19/2021 06:29:00 AM EDT [facility] Name Value Range Interpretation Code Description Data Michelle rce(s) Supporting Document(s) SARS coronavirus 2 RNA [Presence] in Res piratory specimen by OMI with probe detection NEGATIVE [facility] This lab was ordered by [facility] a nd reported by [facility]. ID Date Data Source [id number] 04/17/2021 05:50:00 PM EDT [facility] Name Value Range Interpretation Code Description Data Michelle rce(s) Supporting Document(s) SARS-CoV-2 (COVID-19) RNA [Presence] in Respiratory specimen by OMI with probe detection Not Detected [facility] This lab was ordered by [facility] and reported by [facility]. ID Date Data Source [id number] 02/28/2021 04:53:00 [place] [address] HEALTH INFORMATION MANAGEMENT History and Physical Report : [id number] Signed Patient: Gabo Parra Acct:[id number] Unit: Low [id number] : 1980 Loc: [facility] Room/Bed: 820-B Age/Sex: 40 / M ADM Date: 02/27/21 cc: History Physical Date of Service (Initial Exam): 02/28/21 Chief Complaint: none History of Present Illness: 40-year-old male needs a history and physical examination for inpatient mental health admission. Patient initially denied that he was Gabo parra when initially trying to examine him. Patient is ambulating in the edmodn at that time down to dinner. Second [...] charges for this visit?: Yes Inpt Consult [id number] Cons Level 1: Yes Signed By:Rambo Summers <<Signature on File>> Signed Date/Time: 02/28/21 5538 Co-Signer: Leonel Hubbard MD Co-Signed Date/Time: 02/28/21 9808 Initializing User: Rambo Summers NP 02/28/211652 52 52 Name Value Range Interpretation Code Description Data Michelle rce(s) Supporting Document(s) ID Date Data Source [id number] 02/28/2021 10:45:00 AM EDT [facility] [address] [place] [address] HEALTH INFORMATION MANAGEMENT [facility] Psychosocial Summary : [id number] Signed Patient: Gabo Parra Acct:[id number] Unit: M [id number] : 1980 Loc: [facility] Room/Bed: 820-B Age/Sex: 40 / M ADM Date: 02/27/21 cc: General/History - Presenting Problem Presenting Problem: Social Summary/Discharge plan Presenting Problem Gabo is a40 yo AAM, extensive psych hx, also problems with substance abuse admitted on a transfer from [facility] ER brought in there by his CW as pt was feeling depressed, suicidal, also hallucinating and after abusing drugs History. tates was partially complaint with meds. Not able to name his psychiatrist in [place], not able to name the therapist. Gives h/o 5 to 6 inpt psych txs, last one few months ago, "I can't remember the place, they send me from [facility]. " Also, h'o inpt psych tx at [facility]. H/o self harm time, tried to [...] Person?: No Are you part of any congregation/spirtual community?: Yes (Congregation ) - Current Living/Relationship History Current Living Arrangement: House Who Do You Live With?: Mother. OK to Return Home: Yes Weapons in household: No Currently in a Relationship?: No Ever Been ?: No Any Children?: 2 - Family History Where Were You Born/Raised?: [place] Who Was in Home?: Mother, Father How [...] Reducing Risk: Complies with Tx/Meds, Future Oriented, Qu[employer] Beliefs Mental Status Treatment - Mental Status [...] rce(s) Supporting Document(s) ID Date Data Source [id number] 02/27/2021 04:28:00 PM EDT [facility] Name Value Range Interpretation Code Description Data Michelle rce(s) Supporting Document(s) SARS coronavirus 2 RNA [Presence] in Res piratory specimen by OMI with probe detection NEGATIVE [facility] This lab was ordered by [facility] a nd reported by [facility]. ID Date Data Source [id number] 01/23/2021 01:03:00 AM EDT [facility] Name Value Range Interpretation Code Description Data Michelle rce(s) Supporting Document(s) SARS coronavirus 2 RNA [Presence] in Res piratory specimen by OMI with probe detection NEGATIVE [facility] This lab was ordered by [facility] a nd reported by [facility]. ID Date Data Source [id number] 10/17/2020 12:19:00 AM EST [facility] Name Value Range Interpretation Code Description Data Michelle rce(s) Supporting Document(s) SARS coronavirus 2 RNA [Presence] in Res piratory specimen by [facility]MI with probe detection [facility] This lab was ordered by [facility] a nd reported by [facility]. Procedure Social History Code Duration Value Status Description Data Source(s ) Smoking 07/29/2021 12:00:00 AM EDT Unknown if ever smoked comp leted Unknown if ever smoked [facility] ([facility]) Smoking 06/24/2021 12:00:00 AM EDT Unknown if ever smoked comp leted Unknown if ever smoked [facility] ([facility]) Smoking 05/27/2021 12:00:00 AM EDT Unknown if ever smoked comp leted Unknown if ever smoked [facility] ([facility]) Smoking 05/13/2021 12:00:00 AM EDT Unknown if ever smoked comp leted Unknown if ever smoked [facility] ([facility]) Smoking 04/04/2021 12:00:00 AM EDT Unknown if ever smoked comp leted Unknown if ever smoked [facility] ([facility]) Smoking 04/03/2021 12:00:00 AM EDT Unknown if ever smoked comp leted Unknown if ever smoked [facility] ([facility]) Smoking 03/27/2021 12:00:00 AM EDT Unknown if ever smoked comp leted Unknown if ever smoked [facility] ([facility]) Smoking 03/19/2021 12:00:00 AM EDT Unknown if ever smoked comp leted Unknown if ever smoked [facility] ([facility]) Smoking 02/12/2021 12:00:00 AM EDT Unknown if ever smoked comp leted Unknown if ever smoked [facility] ([facility]) Smoking 02/07/2021 12:00:00 AM EDT Unknown if ever smoked comp leted Unknown if ever smoked [facility] ([facility]) Smoking 02/01/2021 12:00:00 AM EDT Unknown if ever smoked comp leted Unknown if ever smoked [facility] ([facility]) Smoking 01/23/2021 12:00:00 AM EDT Unknown if ever smoked comp leted Unknown if ever smoked [facility] ([facility]) Smoking 01/18/2021 12:00:00 AM EDT Unknown if ever smoked comp leted Unknown if ever smoked [facility] ([facility]) Smoking 01/17/2021 12:00:00 AM EDT Unknown if ever smoked comp leted Unknown if ever smoked [facility] ([facility]) Smoking 01/01/2021 12:00:00 AM EST Unknown if ever smoked comp leted Unknown if ever smoked [facility] ([facility]) Smoking 12/28/2020 12:00:00 AM EST Unknown if ever smoked comp leted Unknown if ever smoked [facility] ([facility]) Smoking 12/20/2020 12:00:00 AM EST Unknown if ever smoked comp leted Unknown if ever smoked [facility] ([facility]) Smoking 12/06/2020 12:00:00 AM EST Unknown if ever smoked comp leted Unknown if ever smoked [facility] ([facility]) Smoking 11/15/2020 12:00:00 AM EST Unknown if ever smoked comp leted Unknown if ever smoked [facility] ([facility]) Smoking 10/18/2020 12:00:00 AM EST Unknown if ever smoked comp leted Unknown if ever smoked [facility] ([facility]) Smoking 10/15/2020 12:00:00 AM EST Unknown if ever smoked comp leted Unknown if ever smoked [facility] ([facility]) Smoking 10/04/2020 12:00:00 AM EST Unknown if ever smoked comp leted Unknown if ever smoked [facility] ([facility]) Smoking 09/12/2020 12:00:00 AM EST Unknown if ever smoked comp leted Unknown if ever smoked [facility] ([facility]) Smoking 08/10/2020 12:00:00 AM EDT Unknown if ever smoked comp leted Unknown if ever smoked [facility] ([facility]) Smoking 07/13/2020 12:00:00 AM EDT Unknown if ever smoked comp leted Unknown if ever smoked [facility] ([facility]) Vital Signs ID Date Data Source UNK Name Value Range Interpretation Code Description Data Source(s) Body height 0.00 in Normal (applies to non-numeric resu lts) 0.00 in [facility] ([facility]) Body weight Measured 0.00 lbs Normal (applies to n on-numeric results) 0.00 lbs [facility] ([facility]) Body mass index (BMI) [Ratio] 0.00 kg/m2 No rmal (applies to non-numeric results) 0.00 kg/m2 [facility] ([facility]) Systolic blood pressure 0 mm[Hg] Normal (applies t o non-numeric results) 0 mm[Hg] [facility] ([facility]) Diastolic blood pressure 0 mm[Hg] Normal (applies to non-numeric results) 0 mm[Hg] [facility] ([facility]) Body height 0.00 in Normal (applies to non-numeric resu lts) 0.00 in [facility] ([facility]) Body weight Measured 0.00 lbs Normal (applies to n on-numeric results) 0.00 lbs [facility] ([facility]) Body mass index (BMI) [Ratio] 0.00 kg/m2 No rmal (applies to non-numeric results) 0.00 kg/m2 [facility] ([facility]) Systolic blood pressure 0 mm[Hg] Normal (applies t o non-numeric results) 0 mm[Hg] [facility] ([facility]) Diastolic blood pressure 0 mm[Hg] Normal (applies to non-numeric results) 0 mm[Hg] [facility] Body height 0.00 in Normal (applies to non-numeric resu lts) 0.00 in [facility] Body weight Measured 0.00 lbs Normal (applies to n on-numeric results) 0.00 lbs [facility] ([facility]) Body mass index (BMI) [Ratio] 0.00 kg/m2 No rmal (applies to non-numeric results) 0.00 kg/m2 [facility] ([facility]) Systolic blood pressure 0 mm[Hg] Normal (applies t o non-numeric results) 0 mm[Hg] [facility] ([facility]) Diastolic blood pressure 0 mm[Hg] Normal (applies to non-numeric results) 0 mm[Hg] [facility] ([facility]) Body height 0.00 in Normal (applies to non-numeric resu lts) 0.00 in [facility] ([facility]) Body weight Measured 0.00 lbs Normal (applies to n on-numeric results) 0.00 lbs [facility] ([facility]) Body mass index (BMI) [Ratio] 0.00 kg/m2 No rmal (applies to non-numeric results) 0.00 kg/m2 [facility] ([facility]) Systolic blood pressure 0 mm[Hg] Normal (applies t o non-numeric results) 0 mm[Hg] [facility] ([facility]) Diastolic blood pressure 0 mm[Hg] Normal (applies to non-numeric results) 0 mm[Hg] [facility] ([facility]) ID Date Data Source [id number] 09/22/2020 02:27:59 PM [facility] Name Value Range Interpretation Code Description Data Source(s) TRANSFER FROM [facility]
[2021-08-16 13:09] VITALS: BP 114/69
--- NOTE | 2021-08-16 15:37 | MHIPNPDOC ---
[facility] Progress Note Progress Note DATE OF SERVICE: 08/16/21 Patient presented by PSA, does not meet criteria for involuntary admission. Patient has presented to the ED every couple days for last 2-3 months, usually in context of drug use states he is suicidal or wants admission, is allowed hours to detox and then when not intoxicated denies SI, intent or plan, HI, intent or plan, denies psychotic symptoms and wants to return home to mother's home 6-12 hrs later. He is consistently positive for cannabis despite education for worsening underlying primary psychotic disorder, compliant with invega sustenna CASE. Denies weapons. Feels safe to return home. Vital Signs Vital Signs Date Time Temp Pulse Resp B/P (MAP) Pulse Ox O2 Delivery O2 Flow Rate FiO2 08/16/21 13:09 98.8 81 16 114/69 (84) 98 Room Air Laboratory Data 24H Labs Laboratory Tests 2 08/16/21 06:28: Nucleated Red Blood Cells % (auto) 0.0, Anion Gap 4L, Glomerular Filtration Rate > 60.0, Calcium Level 9.1, Total Bilirubin 0.5, Direct Bilirubin 0.2, Aspartate Amino Transf (AST/SGOT) 59H, Alanine Aminotransferase (ALT/SGPT) 135H, Alkaline Phosphatase 59, Total Protein 7.2, Albumin 3.4, Albumin/Globulin Ratio 0.9, Thyroid Stimulating Hormone (TSH) 0.731, Salicylates Level 2.2L, Urine Opiates Screen NEGATIVE, Urine Methadone Screen NEGATIVE, Acetaminophen Level < 2.0L, Urine Barbiturates Screen NEGATIVE, Urine Phencyclidine Screen NEGATIVE, Urine Amphetamines Screen NEGATIVE, Urine Benzodiazepines Screen NEGATIVE, Urine Cocaine Metabolite Screen NEGATIVE, Urine Cannabinoids Screen POSITIVEH, Ethyl Alcohol Level < 0.003 CBC/BMP Laboratory Tests 08/16/21 06:28 Allergies Coded Allergies: PERFUMES (Verified Allergy, Unknown, 09/22/20) JONO MATUTE MD Aug 16, 2021 15:37
== END 2021-08-16 15:04 | disposition home or self-care (01) ==
LOC: M ED 04:08
DX: 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, uncomplicated (principal); F12.10 Cannabis abuse, uncomplicated; F20.9 Schizophrenia, unspecified; Z91.048 Other nonmedicinal substance allergy status

== ENCOUNTER 2021-08-22 21:23 | Emergency (ER) | payer OTHER ==
[~2021-08-22] VITALS: Ht 175.3 cm; Wt 72.4 kg
[2021-08-22 21:24] VITALS: BP 107/70
[2021-08-22] MEDS ORDERED: HALD100I2 IM (21:56)
--- OUTSIDE RECORDS SUMMARY | 2021-08-23 02:24 | CCD ---
Author Author [facility] Organization [facility] Address Unknown Phone Unavailable Support Name Relationship Address Phone Hudson GUTIERREZ, Pasha Next Of Kin [address] [place] [address] Diamante Costa Next Of Kin [address] [place] [address] Dwain Joseph DO Next Of Kin [address] [place] [address] Cameron Bingham MD Next Of Kin [address] [place] [address] SELFGARY Next Of Kin [address] [place] [address] YONI JACK Next Of Kin [address] [place] [address] CORRECTIONAL, CROW Next Of Kin [address] [place] [address] Monique Conklin MD Next Of Kin [address] [place] [phone] YONI CALHOUN Next Of Kin [address] [place] [address] Isabelle Manning Next Of Kin [address] [place] [address] Pat Gallo DO Next Of Kin [address] [place] [address] DISABLED Next Of Kin Unknown Unavailable Ford Self Next Of Kin [address] [place] [phone] SELF, JUNIOR Next Of Kin [address] [place] [address] UE Next Of Kin Unknown Unavailable SIMON WALL Next Of Kin [address] [place] [address] SELF, JUNIOR ECON [address] [place] [address] Unavailable Care Team Providers Care Spider Assembler Name Role Phone Farden, M Rambo Unavailable [...] Unavailable Unavailable Farden, M Rambo Unavailable Unavailable BILALJONNATHAN MD Unavailable Unavailable BILAL, JONNATHAN GUTIERREZ Unavailable Unavailable BILAL, JONNATHAN GUTIERREZ Unavailable Unavailable BILAL, JONNATHAN GUTIERREZ Unavailable Unavailable BILAL, JONNATHAN GUTIERREZ Unavailable Unavailable BILAL, JONNATHAN GUTIERREZ Unavailable Unavailable BILAL, JONNATHAN GUTIERREZ Unavailable Unavailable BILAL, JONNATHAN GUTIERREZ Unavailable Unavailable BILAL, JONNATHAN GUTIERREZ Unavailable Unavailable BILAL, JONNATHAN GUTIERREZ Unavailable Unavailable Gina Nash Unavailable AMILCAR, H ANSELMO ENGRAVER SET UP OPERATOR Unavailable Unavailable AMILCAR, H ANSELMO ENGRAVER SET UP OPERATOR Unavailable Unavailable AMILCAR, H ANSELMO ENGRAVER SET UP OPERATOR Unavailable Unavailable AMILCAR, H ANSELMO ENGRAVER SET UP OPERATOR Unavailable Unavailable AMILCAR, H ANSELMO ENGRAVER SET UP OPERATOR Unavailable Unavailable AMILCAR, H ANSELMO ENGRAVER SET UP OPERATOR Unavailable Unavailable AMILCAR, H ANSELMO ENGRAVER SET UP OPERATOR Unavailable Unavailable AMILCAR, H ANSELMO ENGRAVER SET UP OPERATOR Unavailable Unavailable AMILCAR, H ANSELMO ENGRAVER SET UP OPERATOR Unavailable Unavailable Jossie Marcelino Unavailable Rotella, Jossy Unavailable Unavailable Thalia Carreno Unavailable Bonifacio Escobar MD Unavailable Unavailable Bonifacio Escobar MD Unavailable Unavailable Bonifacio Escobar MD Unavailable Unavailable Bonifacio Escobar MD Unavailable Unavailable Pam Juarez Unavailable SYSTEM IN, NOT PROVIDER Unavailable Unavailable ALIASES , ORGANIZATION NPI Unavailable [...] protected by Article 27-F of the [facility] Public Health law. If you continue you may have access to information: Regarding HIV / AIDS; Provided by facilities licensed or operated by the [facility] Office of Mental Health; or Provided by the [facility] Office for People With Developmental Disabilities. If such information is present, then the following [facility] mandated warning applies: This information has [...] allergy No Known Allergies No Known Allergies [facility] Propensity to adverse reactions NO KNOWN ALLERGIES NO KNOWN ALLERGIES [facility] Encounters Encounter Providers Location Date Indications Data Source(s ) Injectable Medication Administration w/ Monitoring & E ducation Attender: Pam Isbellpo [facility] 07/29/2021 02:30:00 AM EDT - 07/29/2021 02:30:00 AM EDT [facility] ([facility]) Attender: Pam Juarez 07/29/2021 12:00:00 AM EDT [facility] ([facility]) Injectable Medication Administration w/ Monitoring & E ducation Attender: Thalia CallahanAlbaAlphonso [facility] 06/24/2021 10:45:00 AM EDT - 06/24/2021 10:45:00 AM EDT [facility] ([facility]) Attender: Thalia Carreno 06/24/2021 12:00:00 AM EDT [facility] ([facility]) Injectable Psychotropic Medication Administration (Inj ection Only) Attender: Thalia Carreno [facility] 05/27/2021 08:15:00 AM EDT - 05/27/2021 08:15:00 AM EDT [facility] ([facility]) Attender: Thalia Carreno 05/27/2021 12:00:00 AM EDT [facility] ([facility]) Brief Individual Psychotherapy - 30 min Attender: Gina yun [facility] 05/13/2021 08:30:00 AM EDT - 05/13/2021 08:30:00 AM EDT [facility] ([facility]) Attender: Gina Nash 05/13/2021 12:00:00 AM EDT [facility] ([facility]) Attender: Pam Larry 04/04/2021 12:00:00 AM EDT [facility] ([facility]) Injectable Medication Administration w/ Monitoring & E ducation Attender: Pam Borjapo [facility] Maria Alejandra 04/03/2021 09:00:00 AM EDT - 04/03/2021 09:00:00 AM EDT [facility] ([facility]) Outpatient Attender: ANSELMO APONTE NP [facility] Mike garcía 04/03/2021 08:30:00 AM EDT - 04/03/2021 08:30:00 AM EDT [facility] ([facility]) Attender: ANSELMO APONTE NP 04/03/2021 12:00:00 AM EDT [facility] ([facility]) Outpatient Attender: ANSELMO APONTE NP [facility] Mike garcía 03/27/2021 11:00:00 AM EDT - 03/27/2021 11:00:00 AM EDT [facility] ([facility]) Attender: ANSELMO APONTE NP 03/27/2021 12:00:00 AM EDT [facility] ([facility]) Outpatient Attender: ANSELMO APONTE NP [facility] Mike garcía 03/19/2021 03:00:00 AM EDT - 03/19/2021 03:00:00 AM EDT [facility] ([facility]) Attender: ANSELMO APONTE NP 03/19/2021 12:00:00 AM EDT [facility] ([facility]) Inpatient Attender: JONNATHAN TRACY MDAdmitter: JONNATHAN TRACY MD 02/27/2021 08:12:00 PM EDT - 03/08/2021 03:27:00 PM EDT Suicidal Ideation / Homicidal Ideation [facility] Suicidal Ideation / Homicidal Ideation Patient discharged. Outpatient Attender: JONNATHAN TRACY MDAdmi tter: JONNATHAN TRACY MDConsultant: JONNATHAN TRACY MD 02/27/2021 08:12:00 PM EDT Suicidal Ideation / [facility]micidal Ideation [facility] Suicidal Ideation / Homicidal Ideation Outpatient Attender: JONNATHAN MAIAL RAFAELdmi tter: JONNATHAN TRACY MDConsultant: JONNATHAN TRACY MD 02/27/2021 08:12:00 PM EDT Suicidal Ideation / H omicidal Ideation [facility] Suicidal Ideation / Homicidal Ideation Outpatient Attender: Castro ColonAdmitter : JONNATHAN TRACY MDConsultant: JONNATHAN TRACY MD 02/27/2021 08:12:00 PM EDT Suicidal Ideation / H omicidal Ideation [facility] Suicidal Ideation / Homicidal Ideation Outpatient Attender: JONNATHAN TRACY MDAdmi tter: JONNATHAN TRACY MDConsultant: JONNATHAN TRACY MD 02/27/2021 08:12:00 PM EDT Suicidal Ideation / H omicidal Ideation [facility] Suicidal Ideation / Homicidal Ideation Outpatient Attender: JONNATHAN TRACY MDAdmi tter: JONNATHAN TRACY MDConsultant: JONNATHAN TRACY MD 02/27/2021 08:12:00 PM EDT [facility] Ide[facility] Outpatient Attender: JONNATHAN TRACY MDAdmi tter: JONNATHAN TRACY MDConsultant: JONNATHAN TRACY MD 02/27/2021 08:12:00 PM EDT Suicidal Ideation / H omicidal Ideation [facility] Suicidal Ideation / Homicidal Ideation Outpatient Attender: Castro ColonAdmitter : JONNATHAN TRACY MDConsultant: JONNATHAN TRACY MD 02/27/2021 08:12:00 PM EDT Suicidal Ideation / H omicidal Ideation [facility] Suicidal Ideation / Homicidal Ideation Outpatient Attender: Castro ColonAdmitter : JONNATHAN TRACY MDConsultant: JONNATHAN TRACY MD 02/27/2021 08:12:00 PM EDT Suicidal Ideation / H omicidal Ideation [facility] Suicidal Ideation / Homicidal Ideation Outpatient Attender: JONNATHAN TRACY MDAdmi tter: JONNATHAN MAIAL MDConsultant: JONNATHAN TRACY MD 02/27/2021 08:12:00 PM EDT Suicidal Ideation / H omicidal Ideation [facility] Suicidal Ideation / Homicidal Ideation Outpatient Attender: Rambo Pedroza mitter: JONNATHAN TRACY MDConsultant: JONNATHAN TRACY MD 02/27/2021 08:12:00 PM EDT Suicidal Ideation / H omicidal Ideation [facility] Suicidal Ideation / Homicidal Ideation Outpatient Attender: ANSELMO APONTE NP [facility] 02/12/2021 10:30:00 AM EDT - 02/12/2021 10:30:00 AM EDT [facility] ([facility]) Attender: ANSELMO APONTE NP 02/12/2021 12:00:00 AM EDT [facility] ([facility]) Outpatient Attender: ANSELMO APONTE NP [facility] 02/07/2021 11:30:00 AM EDT - 02/07/2021 11:30:00 AM EDT [facility] ([facility]) Attender: ANSELMO APONTE NP 02/07/2021 12:00:00 AM EDT [facility] ([facility]) Brief Individual Psychotherapy - 30 min Attender: Gina yun [facility] 02/01/2021 02:00:00 AM EDT - 02/01/2021 02:00:00 AM EDT [facility] ([facility]) Attender: Gina Nash 02/01/2021 12:00:00 AM EDT [facility] ([facility]) Injectable Psychotropic Medication Administration (Inj ection Only) Attender: Thalia Carreno [facility] 01/23/2021 10:00:00 AM EDT - 01/23/2021 10:00:00 AM EDT [facility] ([facility]) Outpatient Attender: ANSELMO APONTE NP [facility] 01/23/2021 09:15:00 AM EDT - 01/23/2021 09:15:00 AM EDT [facility] ([facility]) Attender: ANSELMO APONTE NP 01/23/2021 12:00:00 AM EDT [facility] ([facility]) Attender: Thalia Carreno 01/23/2021 12:00:00 AM EDT [facility] ([facility]) Injectable Medication Administration w/ Monitoring & E ducation [facility] 11:00:00 AM EDT - 01/18/2021 11:00:00 AM EDT [facility] ([facility]) Attender: Pam Juarez 01/18/2021 12:00:00 AM EDT [facility] ([facility]) Outpatient Attender: ANSELMO APONTE NP [facility] 01/17/2021 09:00:00 AM EDT - 01/17/2021 09:00:00 AM EDT [facility] ([facility]) Attender: ANSELMO APONTE NP 01/17/2021 12:00:00 AM EDT [facility] ([facility]) Outpatient Attender: ANSELMO APONTE NP [facility] 01/01/2021 02:30:00 AM EST - 01/01/2021 02:30:00 AM EST [facility] ([facility]) Attender: ANSELMO APONTE NP 01/01/2021 12:00:00 AM EST [facility] ([facility]) Injectable Psychotropic Medication Administration (Inj ection Only) Attender: Jossie Marcelino [facility] 12/28/2020 10:30:00 AM EST - 12/28/2020 10:30:00 AM EST [facility] ([facility]) Attender: Jossie Marcelino 12/28/2020 12:00:00 AM EST [facility] ([facility]) Outpatient Attender: Victorino Escobar MD [facility] 12/20/2020 09:30:00 AM EST - 12/20/2020 09:30:00 AM EST [facility] ([facility]) Attender: Victorino Escobar MD 12/20/2020 12:00:00 AM EST [facility] ([facility]) Outpatient Attender: Victorino Escobar MD [facility] Mike garcía 12/06/2020 12:30:00 PM EST - 12/06/2020 12:30:00 PM EST [facility] ([facility]) Attender: Victorino Escobar MD 12/06/2020 12:00:00 AM EST [facility] ([facility]) Injectable Medication Administration w/ Monitoring & E ducation Attender: ORGANIZATION NPI ALIASES [facility] 11/15/2020 11:15: 00 AM EST - 11/15/2020 11:15:00 AM EST [facility] ([facility]) Outpatient Attender: Victorino Escobar MD [facility] Mike garcía 11/15/2020 11:00:00 AM EST - 11/15/2020 11:00:00 AM EST [facility] ([facility]) Attender: ORGANIZATION NPI ALIASES * 11/15/2020 12:00:00 AM EST [facility] ([facility]) Attender: Victorino Escobar MD 11/15/2020 12:00:00 AM EST [facility] ([facility]) Injectable Psychotropic Medication Administration (Inj ection Only) Attender: Jossy Mejia [facility] 10/18/2020 10:30:00 AM EST - 10/18/2020 10:30:00 AM EST [facility] ([facility]) Attender: Jossy Mejia 10/18/2020 12:00:00 AM EST [facility] ([facility]) Injectable Psychotropic Medication Administration (Inj ection Only) Attender: Jossy Mejia [facility] 10/15/2020 11:00:00 AM EST - 10/15/2020 11:00:00 AM EST [facility] ([facility]) Attender: Jossy Mejia 10/15/2020 12:00:00 AM EST [facility] ([facility]) Injectable Psychotropic Medication Administration (Inj ection Only) Attender: Jossy Rotteena [facility] 10/04/2020 10:30:00 AM EST - 10/04/2020 10:30:00 AM EST [facility] ([facility]) Outpatient Attender: KALLI MOLINAURSZULA [facility] 10/04/2020 10:00:00 AM EST - 10/04/2020 10:00:00 AM EST [facility] ([facility]) Attender: Jossy Mejia 10/04/2020 12:00:00 AM EST [facility] ([facility]) Attender: KALLI VALLEJO 10/04/2020 12:00: 00 AM EST [facility] ([facility]) Outpatient Referrer: PROVIDER SYSTEM [place] 09/22/2020 0 2:27:00 PM EST schizophrenia, hallucinations, substance abuse [facility] schizophrenia, hallucinations, substance abuse Injectable Psychotropic Medication Administration (Inj ection Only) Attender: Jossy Jackteena [facility] 09/12/2020 09:30:00 AM EST - 09/12/2020 09:30:00 AM EST [facility] ([facility]) Outpatient Attender: KALLI MOLINAURSZULA [facility] ail 09/12/2020 09:00:00 AM EST - 09/12/2020 09:00:00 AM EST [facility] ([facility]) Attender: KALLI VALLEJO 09/12/2020 12:00: 00 AM EST [facility] ([facility]) Attender: Jossy Mejia 09/12/2020 12:00:00 AM EST [facility] ([facility]) Outpatient Attender: KALLI MOLINAURSZULA [facility] ail 08/10/2020 02:00:00 AM EDT - 08/10/2020 02:00:00 AM EDT [facility] ([facility]) Attender: KALLI VALLEJO 08/10/2020 12:00: 00 AM EDT [facility] ([facility]) Injectable Psychotropic Medication Administration (Inj ection Only) Attender: Jossy Mejia [facility] 07/13/2020 02:00:00 AM EDT - 07/13/2020 02:00:00 AM EDT [facility] ([facility]) Attender: Jossy Mejia 07/13/2020 12:00:00 AM EDT [facility] ([facility]) Outpatient Attender: Pasha MOLINA 07/12/2020 02:46:50 PM EDT [facility] Functional Status Medications Medication Brand Name Start Date Product Form Dose Route Admi nistrative Instructions Pharmacy Instructions Status Indications Reaction Description Data Source(s) Prazosin 1 MG Oral Capsule prazosin 07/10/2021 12:00:00 AM EDT 1 mg by mouth completed <td ID="Medicat ionRxNorm_4">337356</td><td ID="MedicationMedication_4">prazosin</td><td ID="MedicationRoute_4">by mouth</td><td ID="MedicationRouteConcept_4">Z78560</td><td ID="MedicationStartDate_4">07/10/2021</td><td ID="MedicationStopDate_4">08/09/2021</td><td ID="MedicationDosageFrequency_4">at bedtime</td><td ID="MedicationDuration_4">30</td><td ID="MedicationFormulaStrength_4">1 mg</td><td ID="MedicationDosageForm_4">capsule</td><td ID="MedicationDosageFormCode_4"></td><td ID="MedicationDosageDescription_4"></td><td ID="MedicationMedicationId_4">[id number]</td><td ID="MedicationAccount_4">[id number]</td><td ID="MedicationNpid_4">[id number]</td><td ID="MedicationAuthorFirstName_4">Anselmo</td><td ID="MedicationAuthorLastName_4">Amilcar</td><td ID="MedicationTaxonomyCode_4">[id number]</td><td ID="MedicationTaxonomyDesc_4">Nurse Practitioner</td><td ID="MedicationPhoneNumber_4">[phone]</td> [facility] ([facility]) olanzapine 5 MG Oral Tablet [Zyprexa] Zyprexa 05/23/2021 12:00:00 AM EDT 5 mg by mouth completed <td ID="Medica tionRxNorm_2">846581</td><td ID="MedicationMedication_2">Zyprexa</td><td ID="MedicationRoute_2">by mouth</td><td ID="MedicationRouteConcept_2">D44257</td><td ID="MedicationStartDate_2">05/23/2021</td><td ID="MedicationStopDate_2">08/09/2021</td><td ID="MedicationDosageFrequency_2">at bedtime</td><td ID="MedicationDuration_2">30</td><td ID="MedicationFormulaStrength_2">5 mg</td><td ID="MedicationDosageForm_2">tablet</td><td ID="MedicationDosageFormCode_2"></td><td ID="MedicationDosageDescription_2"></td><td ID="MedicationMedicationId_2">[id number]</td><td ID="MedicationAccount_2">[id number]</td><td ID="MedicationNpid_2">[id number]</td><td ID="MedicationAuthorFirstName_2">Anselmo</td><td ID="MedicationAuthorLastName_2">Amilcar</td><td ID="MedicationTaxonomyCode_2">[id number]</td><td ID="MedicationTaxonomyDesc_2">Nurse Practitioner</td><td ID="MedicationPhoneNumber_2">[phone]</td> [facility] benztropine mesylate 1 MG Oral Tablet benztropine 05/23/2021 12:00 :00 AM EDT 1 mg by mouth completed <td ID="Me dicationRxNorm_3">337757</td><td ID="MedicationMedication_3">benztropine</td><td ID="MedicationRoute_3">by mouth</td><td ID="MedicationRouteConcept_3">B85786</td><td ID="MedicationStartDate_3">05/23/2021</td><td ID="MedicationStopDate_3">08/09/2021</td><td ID="MedicationDosageFrequency_3">at bedtime</td><td ID="MedicationDuration_3">30</td><td ID="MedicationFormulaStrength_3">1 mg</td><td ID="MedicationDosageForm_3">tablet</td><td ID="MedicationDosageFormCode_3"></td><td ID="MedicationDosageDescription_3"></td><td ID="MedicationMedicationId_3">[id number]</td><td ID="MedicationAccount_3">[id number]</td><td ID="MedicationNpid_3">[id number]</td><td ID="MedicationAuthorFirstName_3">Anselmo</td><td ID="MedicationAuthorLastName_3">Amilcar</td><td ID="MedicationTaxonomyCode_3">[id number]</td><td ID="MedicationTaxonomyDesc_3">Nurse Practitioner</td><td ID="MedicationPhoneNumber_3">[phone]</td> [facility] 1.5 ML paliperidone palmitate 156 MG/ML Prefilled Syri nge [Invega] Invega Sustenna 04/16/2021 12:00:00 AM EDT 234 mg/1.5 compl eted <td ID="MedicationRxNorm_1">843729</td><td ID="MedicationMedication_1">Invega Sustenna</td><td ID="MedicationRoute_1"></td><td ID="MedicationRouteConcept_1"></td><td ID="MedicationStartDate_1">04/16/2021</td><td ID="MedicationStopDate_1"></td><td ID="MedicationDosageFrequency_1"></td><td ID="MedicationDuration_1"></td><td ID="MedicationFormulaStrength_1">234 mg/1.5 mL</td><td ID="MedicationDosageForm_1">syringe</td><td ID="MedicationDosageFormCode_1"></td><td ID="MedicationDosageDescription_1"> </td><td ID="MedicationMedicationId_1">[id number]</td><td ID="MedicationAccount_1">[id number]</td><td ID="MedicationNpid_1">[id number]</td><td ID="MedicationAuthorFirstName_1">Anselmo</td><td ID="MedicationAuthorLastName_1">Amilcar</td><td ID="MedicationTaxonomyCode_1">[id number]</td><td ID="MedicationTaxonomyDesc_1">Nurse Practitioner</td><td ID="MedicationPhoneNumber_1">[phone]</td> [facility] ([facility]) 2.625 ML paliperidone palmitate 312 MG/ML Prefilled Sy ringe [Invega] Lesliesuleiman Ira 04/03/2021 12:00:00 AM EDT 819 mg/2.625 compl eted <td ID="MedicationRxNorm_3">1266746</td><td ID="MedicationMedication_3">Invega Trinza</td><td ID="MedicationRoute_3">intramuscularly</td><td ID="MedicationRouteConcept_3"></td><td ID="MedicationStartDate_3">04/03/2021</td><td ID="MedicationStopDate_3">07/02/2021</td><td ID="MedicationDosageFrequency_3">every three months</td><td ID="MedicationDuration_3">90</td><td ID="MedicationFormulaStrength_3">819 mg/2.625 mL</td><td ID="MedicationDosageForm_3">syringe</td><td ID="MedicationDosageFormCode_3"></td><td ID="MedicationDosageDescription_3"></td><td ID="MedicationMedicationId_3">[id number]</td><td ID="MedicationAccount_3">[id number]</td><td ID="MedicationNpid_3">[id number]</td><td ID="MedicationAuthorFirstName_3">Anselmo</td><td ID="MedicationAuthorLastName_3">Amilcar</td><td ID="MedicationTaxonomyCode_3">[id number]</td><td ID="MedicationTaxonomyDesc_3"> Nurse Practitioner</td><td ID="MedicationPhoneNumber_3">[phone]</td> [facility] ([facility]) 2.625 ML paliperidone palmitate 312 MG/ML Prefilled Sy ringe [Invega] Invsuleiman Trinza 04/03/2021 12:00:00 AM EDT 819 mg/2.625 compl eted <td ID="MedicationRxNorm_4">8048905</td><td ID="MedicationMedication_4">Invega Trinza</td><td ID="MedicationRoute_4">intramuscularly</td><td ID="MedicationRouteConcept_4"></td><td ID="MedicationStartDate_4">04/03/2021</td><td ID="MedicationStopDate_4">07/02/2021</td><td ID="MedicationDosageFrequency_4">every three months</td><td ID="MedicationDuration_4">90</td><td ID="MedicationFormulaStrength_4">819 mg/2.625 mL</td><td ID="MedicationDosageForm_4">syringe</td><td ID="MedicationDosageFormCode_4"></td><td ID="MedicationDosageDescription_4"></td><td ID="MedicationMedicationId_4">[id number]</td><td ID="MedicationAccount_4">[id number]</td><td ID="MedicationNpid_4">[id number]</td><td ID="MedicationAuthorFirstName_4">Anselmo</td><td ID="MedicationAuthorLastName_4">Amilcar</td><td ID="MedicationTaxonomyCode_4">[id number]</td><td ID="MedicationTaxonomyDesc_4"> Nurse Practitioner</td><td ID="MedicationPhoneNumber_4">[phone]</td> [facility] ([facility]) haloperidol decanoate haloperidol decanoate 04/03/2021 12:00:00 AM EDT 100 mg/mL completed <td ID="Me dicationRxNorm_2">4909410</td><td ID="MedicationMedication_2">haloperidol decanoate</td><td ID="MedicationRoute_2">intramuscularly</td><td ID="MedicationRouteConcept_2"> </td><td ID="MedicationStartDate_2">04/03/2021</td><td ID="MedicationStopDate_2">04/03/2021</td><td ID="MedicationDosageFrequency_2">every four weeks</td><td ID="MedicationDuration_2">28</td><td ID="MedicationFormulaStrength_2">100 mg/mL</td><td ID="MedicationDosageForm_2">solution</td><td ID="MedicationDosageFormCode_2"></td><td ID="MedicationDosageDescription_2"></td><td ID="MedicationMedicationId_2">[id number]</td><td ID="MedicationAccount_2">[id number]</td><td ID="MedicationNpid_2">[id number]</td><td ID="MedicationAuthorFirstName_2">Anselmo</td><td ID="MedicationAuthorLastName_2">Amilcar</td><td ID="MedicationTaxonomyCode_2">[id number]</td><td ID="MedicationTaxonomyDesc_2"> Nurse Practitioner</td><td ID="MedicationPhoneNumber_2">[phone]</td> [facility] ([facility]) benztropine mesylate 1 MG Oral Tablet benztropine 04/03/2021 12:00 :00 AM EDT 1 mg by mouth completed <td ID="Me dicationRxNorm_2">607732</td><td ID="MedicationMedication_2">benztropine</td><td ID="MedicationRoute_2">by mouth</td><td ID="MedicationRouteConcept_2">V91899</td><td ID="MedicationStartDate_2">04/03/2021</td><td ID="MedicationStopDate_2">05/03/2021</td><td ID="MedicationDosageFrequency_2">at bedtime</td><td ID="MedicationDuration_2">30</td><td ID="MedicationFormulaStrength_2">1 mg</td><td ID="MedicationDosageForm_2">tablet</td><td ID="MedicationDosageFormCode_2"></td><td ID="MedicationDosageDescription_2"></td><td ID="MedicationMedicationId_2">[id number]</td><td ID="MedicationAccount_2">[id number]</td><td ID="MedicationNpid_2">[id number]</td><td ID="MedicationAuthorFirstName_2">Anselmo</td><td ID="MedicationAuthorLastName_2">Amilcar</td><td ID="MedicationTaxonomyCode_2">[id number]</td><td ID="MedicationTaxonomyDesc_2">Nurse Practitioner</td><td ID="MedicationPhoneNumber_2">[phone]</td> [facility] ([facility]) olanzapine 5 MG Oral Tablet [Zyprexa] Zyprexa 04/03/2021 12:00:00 AM EDT 5 mg by mouth completed <td ID="Medica tionRxNorm_1">761479</td><td ID="MedicationMedication_1">Zyprexa</td><td ID="MedicationRoute_1">by mouth</td><td ID="MedicationRouteConcept_1">G45717</td><td ID="MedicationStartDate_1">04/03/2021</td><td ID="MedicationStopDate_1">05/03/2021</td><td ID="MedicationDosageFrequency_1">at bedtime</td><td ID="MedicationDuration_1">30</td><td ID="MedicationFormulaStrength_1">5 mg</td><td ID="MedicationDosageForm_1">tablet</td><td ID="MedicationDosageFormCode_1"></td><td ID="MedicationDosageDescription_1"></td><td ID="MedicationMedicationId_1">[id number]</td><td ID="MedicationAccount_1">[id number]</td><td ID="MedicationNpid_1">[id number]</td><td ID="MedicationAuthorFirstName_1">Anselmo</td><td ID="MedicationAuthorLastName_1">Amilcar</td><td ID="MedicationTaxonomyCode_1">[id number]</td><td ID="MedicationTaxonomyDesc_1">Nurse Practitioner</td><td ID="MedicationPhoneNumber_1">[phone]</td> [facility] ([facility]) 2.625 ML paliperidone palmitate 312 MG/ML Prefilled Sy ringe [Invega] Invega Trinza 04/03/2021 12:00:00 AM EDT 819 mg/2.625 compl eted <td ID="MedicationRxNorm_5">7556497</td><td ID="MedicationMedication_5">Invega Trinza</td><td ID="MedicationRoute_5">intramuscularly</td><td ID="MedicationRouteConcept_5"></td><td ID="MedicationStartDate_5">04/03/2021</td><td ID="MedicationStopDate_5">07/02/2021</td><td ID="MedicationDosageFrequency_5">every three months</td><td ID="MedicationDuration_5">90</td><td ID="MedicationFormulaStrength_5">819 mg/2.625 mL</td><td ID="MedicationDosageForm_5">syringe</td><td ID="MedicationDosageFormCode_5"></td><td ID="MedicationDosageDescription_5"></td><td ID="MedicationMedicationId_5">[id number]</td><td ID="MedicationAccount_5">[id number]</td><td ID="MedicationNpid_5">[id number]</td><td ID="MedicationAuthorFirstName_5">Anselmo</td><td ID="MedicationAuthorLastName_5">Amilcar</td><td ID="MedicationTaxonomyCode_5">[id number]</td><td ID="MedicationTaxonomyDesc_5"> Nurse Practitioner</td><td ID="MedicationPhoneNumber_5">[phone]</td> [facility] ([facility]) benztropine mesylate 1 MG Oral Tablet benztropine 04/03/2021 12:00 :00 AM EDT 1 mg by mouth completed <td ID="Me dicationRxNorm_4">743800</td><td ID="MedicationMedication_4">benztropine</td><td ID="MedicationRoute_4">by mouth</td><td ID="MedicationRouteConcept_4">Q02824</td><td ID="MedicationStartDate_4">04/03/2021</td><td ID="MedicationStopDate_4">05/03/2021</td><td ID="MedicationDosageFrequency_4">at bedtime</td><td ID="MedicationDuration_4">30</td><td ID="MedicationFormulaStrength_4">1 mg</td><td ID="MedicationDosageForm_4">tablet</td><td ID="MedicationDosageFormCode_4"></td><td ID="MedicationDosageDescription_4"></td><td ID="MedicationMedicationId_4">[id number]</td><td ID="MedicationAccount_4">[id number]</td><td ID="MedicationNpid_4">[id number]</td><td ID="MedicationAuthorFirstName_4">Anselmo</td><td ID="MedicationAuthorLastName_4">Amilcar</td><td ID="MedicationTaxonomyCode_4">[id number]</td><td ID="MedicationTaxonomyDesc_4">Nurse Practitioner</td><td ID="MedicationPhoneNumber_4">[phone]</td> [facility]) olanzapine 5 MG Oral Tablet [Zyprexa] Zyprexa 04/03/2021 12:00:00 AM EDT 5 mg by mouth completed <td ID="Medica tionRxNorm_3">242510</td><td ID="MedicationMedication_3">Zyprexa</td><td ID="MedicationRoute_3">by mouth</td><td ID="MedicationRouteConcept_3">W38898</td><td ID="MedicationStartDate_3">04/03/2021</td><td ID="MedicationStopDate_3">05/03/2021</td><td ID="MedicationDosageFrequency_3">at bedtime</td><td ID="MedicationDuration_3">30</td><td ID="MedicationFormulaStrength_3">5 mg</td><td ID="MedicationDosageForm_3">tablet</td><td ID="MedicationDosageFormCode_3"></td><td ID="MedicationDosageDescription_3"></td><td ID="MedicationMedicationId_3">[id number]</td><td ID="MedicationAccount_3">[id number]</td><td ID="MedicationNpid_3">[id number]</td><td ID="MedicationAuthorFirstName_3">Anselmo</td><td ID="MedicationAuthorLastName_3">Amilcar</td><td ID="MedicationTaxonomyCode_3">[id number]</td><td ID="MedicationTaxonomyDesc_3">Nurse Practitioner</td><td ID="MedicationPhoneNumber_3">[phone]</td> [facility] ([facility]) 2.625 ML paliperidone palmitate 312 MG/ML Prefilled Sy ringe [Invega] Invega Trinza 04/03/2021 12:00:00 AM EDT 819 mg/2.625 compl eted <td ID="MedicationRxNorm_2">0227152</td><td ID="MedicationMedication_2">Invega Trinza</td><td ID="MedicationRoute_2">intramuscularly</td><td ID="MedicationRouteConcept_2"></td><td ID="MedicationStartDate_2">04/03/2021</td><td ID="MedicationStopDate_2">07/02/2021</td><td ID="MedicationDosageFrequency_2">every three months</td><td ID="MedicationDuration_2">90</td><td ID="MedicationFormulaStrength_2">819 mg/2.625 mL</td><td ID="MedicationDosageForm_2">syringe</td><td ID="MedicationDosageFormCode_2"></td><td ID="MedicationDosageDescription_2"></td><td ID="MedicationMedicationId_2">[id number]</td><td ID="MedicationAccount_2">[id number]</td><td ID="MedicationNpid_2">[id number]</td><td ID="MedicationAuthorFirstName_2">Anselmo</td><td ID="MedicationAuthorLastName_2">Amilcar</td><td ID="MedicationTaxonomyCode_2">[id number]</td><td ID="MedicationTaxonomyDesc_2"> Nurse Practitioner</td><td ID="MedicationPhoneNumber_2">[phone]</td> [facility] ([facility]) haloperidol decanoate haloperidol decanoate 10/04/2020 12:00:00 AM EST 100 mg/mL completed <td ID="Me dicationRxNorm_1">7552612</td><td ID="MedicationMedication_1">haloperidol decanoate</td><td ID="MedicationRoute_1">intramuscularly</td><td ID="MedicationRouteConcept_1"> </td><td ID="MedicationStartDate_1">10/04/2020</td><td ID="MedicationStopDate_1">04/03/2021</td><td ID="MedicationDosageFrequency_1">as directed</td><td ID="MedicationDuration_1">21</td><td ID="MedicationFormulaStrength_1">100 mg/mL</td><td ID="MedicationDosageForm_1">solution</td><td ID="MedicationDosageFormCode_1"></td><td ID="MedicationDosageDescription_1"></td><td ID="MedicationMedicationId_1">[id number]</td><td ID="MedicationAccount_1">[id number]</td><td ID="MedicationNpid_1">[id number]</td><td ID="MedicationAuthorFirstName_1">Victorino</td><td ID="MedicationAuthorLastName_1">Escobar</td><td ID="MedicationTaxonomyCode_1">[id number]</td><td ID="MedicationTaxonomyDesc_1"> Psychiatry</td><td ID="MedicationPhoneNumber_1">[phone]</td> [facility] ([facility]) 100 mg/mL 10/02/2020 12:00:00 AM [...] 50 mg by mouth completed <td ID="Medic ationRxNorm_5">735250</td><td ID="MedicationMedication_5">trazodone</td><td ID="MedicationRoute_5">by mouth</td><td ID="MedicationRouteConcept_5">K23236</td><td ID="MedicationStartDate_5">09/12/2020</td><td ID="MedicationStopDate_5">10/12/2020</td><td ID="MedicationDosageFrequency_5">every night</td><td ID="MedicationDuration_5">30</td><td ID="MedicationFormulaStrength_5">50 mg</td><td ID="MedicationDosageForm_5">tablet</td><td ID="MedicationDosageFormCode_5"></td><td ID="MedicationDosageDescription_5"></td><td ID="MedicationMedicationId_5">[id number]</td><td ID="MedicationAccount_5">[id number]</td><td ID="MedicationNpid_5">[id number]</td><td ID="MedicationAuthorFirstName_5">Kalli</td><td ID="MedicationAuthorLastName_5">Egorho</td><td ID="MedicationTaxonomyCode_5">[id number]</td><td ID="MedicationTaxonomyDesc_5">Nurse Practitioner</td><td ID="MedicationPhoneNumber_5">[phone]</td> [facility] ([facility]) Trazodone Hydrochloride 50 MG Oral Tablet trazodone 2019 12:00:00 AM EST 50 mg by mouth completed <td ID="Medic ationRxNorm_1">250513</td><td ID="MedicationMedication_1">trazodone</td><td ID="MedicationRoute_1">by mouth</td><td ID="MedicationRouteConcept_1">W22010</td><td ID="MedicationStartDate_1">09/12/2020</td><td ID="MedicationStopDate_1">10/12/2020</td><td ID="MedicationDosageFrequency_1">every night</td><td ID="MedicationDuration_1">30</td><td ID="MedicationFormulaStrength_1">50 mg</td><td ID="MedicationDosageForm_1">tablet</td><td ID="MedicationDosageFormCode_1"></td><td ID="MedicationDosageDescription_1"></td><td ID="MedicationMedicationId_1">[id number]</td><td ID="MedicationAccount_1">[id number]</td><td ID="MedicationNpid_1">[id number]</td><td ID="MedicationAuthorFirstName_1">Kalli</td><td ID="MedicationAuthorLastName_1">Egorho</td><td ID="MedicationTaxonomyCode_1">[id number]</td><td ID="MedicationTaxonomyDesc_1">Nurse Practitioner</td><td ID="MedicationPhoneNumber_1">[phone]</td> [facility] ([facility]) Haldol Decanoate Haldol Decanoate 09/12/2020 12:00:00 AM EST 100 mg/mL completed <td ID="MedicationRx Norm_4">9067433</td><td ID="MedicationMedication_4">Haldol Decanoate</td><td ID="MedicationRoute_4">intramuscularly</td><td ID="MedicationRouteConcept_4"></td><td ID="MedicationStartDate_4">09/12/2020</td><td ID="MedicationStopDate_4">09/15/2020</td><td ID="MedicationDosageFrequency_4">as directed</td><td ID="MedicationDuration_4">1</td><td ID="MedicationFormulaStrength_4">100 mg/mL</td><td ID="MedicationDosageForm_4">solution</td><td ID="MedicationDosageFormCode_4"></td><td ID="MedicationDosageDescription_4"></td><td ID="MedicationMedicationId_4">[id number]</td><td ID="MedicationAccount_4">[id number]</td><td ID="MedicationNpid_4">[id number]</td><td ID="MedicationAuthorFirstName_4">Kalli</td><td ID="MedicationAuthorLastName_4">Egorho</td><td ID="MedicationTaxonomyCode_4">[id number]</td><td ID="MedicationTaxonomyDesc_4">Nurse Practitioner</td><td ID="MedicationPhoneNumber_4">[phone]</td> [facility] ([facility]) quetiapine 300 MG Oral Tablet quetiapine 01/06/2020 12:00:00 AM EST 300 mg completed <td ID="Medicat ionRxNorm_4">305749</td><td ID="MedicationMedication_4">quetiapine</td><td ID="MedicationRoute_4"></td><td ID="MedicationRouteConcept_4"></td><td ID="MedicationStartDate_4">01/06/2020</td><td ID="MedicationStopDate_4">01/05/2021</td><td ID="MedicationDosageFrequency_4">at bedtime</td><td ID="MedicationDuration_4">30</td><td ID="MedicationFormulaStrength_4">300 mg</td><td ID="MedicationDosageForm_4">tablet</td><td ID="MedicationDosageFormCode_4"></td><td ID="MedicationDosageDescription_4"></td><td ID="MedicationMedicationId_4">[id number]</td><td ID="MedicationAccount_4">[id number]</td><td ID="MedicationNpid_4">[id number]</td><td ID="MedicationAuthorFirstName_4">Dane</td><td ID="MedicationAuthorLastName_4">Hazleton</td><td ID="MedicationTaxonomyCode_4">[id number]</td><td ID="MedicationTaxonomyDesc_4">Psychiatric/Mental Health</td><td ID="MedicationPhoneNumber_4">[phone]</td> [facility] ([facility]) quetiapine 300 MG Oral Tablet quetiapine 01/06/2020 12:00:00 AM EST 300 mg completed <td ID="Medicat ionRxNorm_1">934356</td><td ID="MedicationMedication_1">quetiapine</td><td ID="MedicationRoute_1"></td><td ID="MedicationRouteConcept_1"></td><td ID="MedicationStartDate_1">01/06/2020</td><td ID="MedicationStopDate_1">01/05/2021</td><td ID="MedicationDosageFrequency_1">at bedtime</td><td ID="MedicationDuration_1">30</td><td ID="MedicationFormulaStrength_1">300 mg</td><td ID="MedicationDosageForm_1">tablet</td><td ID="MedicationDosageFormCode_1"></td><td ID="MedicationDosageDescription_1"></td><td ID="MedicationMedicationId_1">77968</td><td ID="MedicationAccount_1">[id number]</td><td ID="MedicationNpid_1">[id number]</td><td ID="MedicationAuthorFirstName_1">Dane</td><td ID="MedicationAuthorLastName_1">Loida</td><td ID="MedicationTaxonomyCode_1">[id number]</td><td ID="MedicationTaxonomyDesc_1">Psychiatric/Mental Health</td><td ID="MedicationPhoneNumber_1">[phone]</td> [facility] ([facility]) quetiapine 300 MG Oral Tablet quetiapine 01/06/2020 12:00:00 AM EST 300 mg completed <td ID="Medicat ionRxNorm_5">156313</td><td ID="MedicationMedication_5">quetiapine</td><td ID="MedicationRoute_5"></td><td ID="MedicationRouteConcept_5"></td><td ID="MedicationStartDate_5">01/06/2020</td><td ID="MedicationStopDate_5">01/05/2021</td><td ID="MedicationDosageFrequency_5">at bedtime</td><td ID="MedicationDuration_5">30</td><td ID="MedicationFormulaStrength_5">300 mg</td><td ID="MedicationDosageForm_5">tablet</td><td ID="MedicationDosageFormCode_5"></td><td ID="MedicationDosageDescription_5"></td><td ID="MedicationMedicationId_5">[id number]</td><td ID="MedicationAccount_5">[id number]</td><td ID="MedicationNpid_5">[id number]</td><td ID="MedicationAuthorFirstName_5">Dane</td><td ID="MedicationAuthorLastName_5">Loida</td><td ID="MedicationTaxonomyCode_5">[id number]</td><td ID="MedicationTaxonomyDesc_5">Psychiatric/Mental Health</td><td ID="MedicationPhoneNumber_5">[phone]</td> [facility] ([facility]) Aristada Ariada 12/20/2019 12:00:00 AM EST mg/3.9 completed <td ID="MedicationRxNorm_3">[id number]</td><td ID="MedicationMedication_3">Aristada</td><td ID="MedicationRoute_3">intramuscularly</td><td ID="MedicationRouteConcept_3"></td><td ID="MedicationStartDate_3">12/20/2019</td><td ID="MedicationStopDate_3">09/12/2020</td><td ID="MedicationDosageFrequency_3"></td><td ID="MedicationDuration_3"></td><td ID="MedicationFormulaStrength_3">1,064 mg/3.9 mL</td><td ID="MedicationDosageForm_3">suspension,extended rel syring</td><td ID="MedicationDosageFormCode_3"></td><td ID="MedicationDosageDescription_3">as directed</td><td ID="MedicationMedicationId_3">[id number]</td><td ID="MedicationAccount_3">[id number]</td><td ID="MedicationNpid_3">[id number]</td><td ID="MedicationAuthorFirstName_3">Dane</td><td ID="MedicationAuthorLastName_3">Loida</td><td ID="MedicationTaxonomyCode_3">[id number]</td><td ID="MedicationTaxonomyDesc_3"> Psychiatric/Mental Health</td><td ID="MedicationPhoneNumber_3">[phone]</td> [facility] ([facility]) Trazodone Hydrochloride 50 MG Oral Tablet trazodone 2018 12:00:00 AM EDT 50 mg by mouth completed <td ID="Medic ationRxNorm_2">699520</td><td ID="MedicationMedication_2">trazodone</td><td ID="MedicationRoute_2">by mouth</td><td ID="MedicationRouteConcept_2">P47899</td><td ID="MedicationStartDate_2">06/10/2019</td><td ID="MedicationStopDate_2">09/12/2020</td><td ID="MedicationDosageFrequency_2">at bedtime</td><td ID="MedicationDuration_2"></td><td ID="MedicationFormulaStrength_2">50 mg</td><td ID="MedicationDosageForm_2">tablet</td><td ID="MedicationDosageFormCode_2"></td><td ID="MedicationDosageDescription_2"></td><td ID="MedicationMedicationId_2">17989</td><td ID="MedicationAccount_2">[id number]</td><td ID="MedicationNpid_2">[id number]</td><td ID="MedicationAuthorFirstName_2">Dane</td><td ID="MedicationAuthorLastName_2">Hazleton</td><td ID="MedicationTaxonomyCode_2">[id number]</td><td ID="MedicationTaxonomyDesc_2">Psychiatric/Mental Health</td><td ID="MedicationPhoneNumber_2">[phone]</td> [facility] ([facility]) Amantadine Hydrochloride 100 MG Oral Capsule amantadine HCl 07/30/2017 12:00:00 AM EDT 100 mg by mouth completed <td ID="MedicationRxNorm_1">580331</td><td ID="MedicationMedication_1">amantadine HCl</td><td ID="MedicationRoute_1">by mouth</td><td ID="MedicationRouteConcept_1">I32625</td><td ID="MedicationStartDate_1">07/30/2017</td><td ID="MedicationStopDate_1">09/12/2020</td><td ID="MedicationDosageFrequency_1">every morning</td><td ID="MedicationDuration_1"></td><td ID="MedicationFormulaStrength_1">100 mg</td><td ID="MedicationDosageForm_1">capsule</td><td ID="MedicationDosageFormCode_1"></td><td ID="MedicationDosageDescription_1"></td><td ID="MedicationMedicationId_1">70969</td><td ID="MedicationAccount_1">[id number]</td><td ID="MedicationNpid_1">[id number]</td><td ID="MedicationAuthorFirstName_1">Dane</td><td ID="MedicationAuthorLastName_1">Loida</td><td ID="MedicationTaxonomyCode_1">[id number]</td><td ID="MedicationTaxonomyDesc_1">Psychiatric/Mental Health</td><td ID="MedicationPhoneNumber_1">[phone]</td> [facility] ([facility]) Insurance Providers Payer name Policy type / Coverage type Policy ID Covered constitution party ID Covered constitution party's relationship to shafer Policy Shafer Plan Information Medicaid S [id number] S [id number] Managed Care - Community Plan [facility] P [id number] S [id number] Medicaid S [id number] S [id number] [facility] I [id number] Self [id number] [facility] I [id number] Self [id number] [facility] I [id number] Self [id number] Managed Care - UHC Community Plan P [id number] S [id number] Medicaid S [id number] S [id number] Managed Care - UHC Community Plan P [id number] S [id number] [employer] COMMUNITY PLAN MCDHMO [id number] SP [id number] [facility] MAN CRE [id number] SP [id number] [facility] [id number] SP [id number] SELF PAY [facility] OFFICE OF MENTAL HEALTH UNAVAILABLE S UNAVAILABLE MEDICAID [id number] S [id number] [facility] OFFICE OF MENTAL HEALTH [id number] S [id number] [employer] COMMUNITY PLAN MCDHMO [id number] SP [id number] [facility] OFFICE OF MENTAL HEALTH [id number] S [id number] [facility] [id number] SP [id number] SELF PAY ONLY [id number] SP [id number] [facility] [id number] SP [id number] SELF PAY SP [facility]) O [id number] S [id number] [facility] [id number] SP [id number] Self Pay P UNAVAILABLE S UNAVAILA BLE [facility]) O [id number] S [id number] [facility] [id number] SP [id number] MEDICAID [id number] SP [id number] [facility] MCDHMO [id number] SP [id number] MEDICAID [id number] SP [id number] Problems, Conditions, and Diagnoses Code Display Name Description Problem Type Effective Dates Data Source(s) F11.10 Opioid abuse, uncomplicated F11.10 - Opioid abus e, uncomplicated Diagnosis 02/27/2021 08:12:00 PM EDT [facility] 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 F25.9 Schizoaffective disorder, unspecified F2 5.9 - Schizoaffective disorder, unspecified Diagnosis 02/27/2021 08:12:00 [facility] Z13.9 Encounter for screening, unspecified Z13 .9 - Encounter for screening, unspecified Diagnosis 02/27/2021 08:12:00 [facility] schizophrenia, hallucinations, substance abuse schizophrenia, hallucinations, substance abuse Diagnosis 09/22/2020 02:27:00 PM [facility] F15.20 Other stimulant dependence, uncomplicate d Stimulant Use Disorder, Moderate: Amphetamine-type substance Condition 07/29/2021 12:00:00 AM EDT [facility] ([facility]) F10.20 Alcohol dependence, uncomplicated Alcohol Use Disorder , Severe Condition 07/29/2021 12:00:00 AM EDT [facility] ([facility]) F17.200 Nicotine dependence, unspecified, uncomp licated Tobacco Use Disorder, Moderate Condition 07/29/2021 12:00:00 AM EDT [facility] ([facility]) F12.20 Cannabis dependence, uncomplicated Cannabis Use Disorder, Moderate Condition 07/29/2021 12:00:00 AM EDT [facility] ([facility]) F20.9 Schizophrenia, unspecified Schizophrenia Condition 07/29/2021 12:00:00 AM EDT [facility] ([facility]) Surgeries/Procedures Procedure Description Date Indications Data Source(s) Comprehensive medication services, per 15 minutes 07/29/2021 12:00:00 AM EDT - 07/29/2021 12:00:00 AM EDT [facility] ([facility]) Comprehensive medication services, per 15 minutes 07/29/2021 12:00:00 AM EDT [facility] ([facility]) Comprehensive medication services, per 15 minutes 06/24/2021 12:00:00 AM EDT - 06/24/2021 12:00:00 AM EDT [facility] ([facility]) Comprehensive medication services, per 15 minutes 06/24/2021 12:00:00 AM EDT [facility] ([facility]) THERAPEUTIC PROPHYLACTIC/DX INJECTION SUBQ/IM 05/27/2021 12:00:00 AM EDT - 05/27/2021 12:00:00 AM EDT [facility] ([facility]) THERAPEUTIC PROPHYLACTIC/DX INJECTION SUBQ/IM 05/27/20 12:00:00 AM EDT [facility] ([facility]) Brief Individual Psychotherapy - 30 min 05/13/2021 12:00:00 AM EDT - 05/13/2021 12:00:00 AM EDT [facility] ([facility]) Brief Individual Psychotherapy - 30 min 05/13/2021 12: 00:00 AM EDT [facility] ([facility]) Comprehensive medication services, per 15 minutes 04/04/2021 12:00:00 AM EDT - 04/04/2021 12:00:00 AM EDT [facility] ([facility]) Comprehensive medication services, per 15 minutes 04/03/2021 12:00:00 AM EDT [facility] ([facility]) OFFICE OUTPATIENT VISIT 15 MINUTES 04/03 12:00:00 AM EDT - 04/03/2021 12:00:00 AM EDT [facility] ([facility]) Psychotherapy ADD ON - 30 Minutes 04/03/2021 12:00:00 AM EDT [facility] ([facility]) OFFICE OUTPATIENT VISIT 15 MINUTES 04/03/2021 12:00:00 AM EDT [facility] ([facility]) OFFICE OUTPATIENT VISIT 15 MINUTES 03/27 12:00:00 AM EDT - 03/27/2021 12:00:00 AM EDT [facility] ([facility]) OFFICE OUTPATIENT VISIT 15 MINUTES 03/27/2021 12:00:00 AM EDT [facility] ([facility]) OFFICE OUTPATIENT VISIT 15 MINUTES 03/19 12:00:00 AM EDT - 03/19/2021 12:00:00 AM EDT [facility] ([facility]) OFFICE OUTPATIENT VISIT 15 MINUTES 03/19/2021 12:00:00 AM EDT [facility] ([facility]) OFFICE OUTPATIENT VISIT 15 MINUTES 02/12 12:00:00 AM EDT - 02/12/2021 12:00:00 AM EDT [facility] ([facility]) OFFICE OUTPATIENT VISIT 15 MINUTES 02/12/2021 12:00:00 AM EDT [facility] ([facility]) OFFICE OUTPATIENT VISIT 15 MINUTES 02/07 12:00:00 AM EDT - 02/07/2021 12:00:00 AM EDT [facility] ([facility]) OFFICE OUTPATIENT VISIT 15 MINUTES 02/07/2021 12:00:00 AM EDT [facility] ([facility]) Brief Individual Psychotherapy - 30 min 02/01/2021 12:00:00 AM EDT - 02/01/2021 12:00:00 AM EDT [facility] ([facility]) Brief Individual Psychotherapy - 30 min 02/01/2021 12: 00:00 AM EDT [facility] ([facility]) OFFICE OUTPATIENT VISIT 15 MINUTES 01/23 12:00:00 AM EDT - 01/23/2021 12:00:00 AM EDT [facility] ([facility]) OFFICE OUTPATIENT VISIT 15 MINUTES 01/23/2021 12:00:00 AM EDT [facility] ([facility]) THERAPEUTIC PROPHYLACTIC/DX INJECTION SUBQ/IM 01/23/2021 12:00:00 AM EDT - 01/23/2021 12:00:00 AM EDT [facility] ([facility]) THERAPEUTIC PROPHYLACTIC/DX INJECTION SUBQ/IM 01/24/20 12:00:00 AM EDT [facility] ([facility]) Comprehensive medication services, per 15 minutes 01/18/2021 12:00:00 AM EDT - 01/18/2021 12:00:00 AM EDT [facility] ([facility]) Comprehensive medication services, per 15 minutes 01/18/2021 12:00:00 AM EDT [facility] ([facility]) OFFICE OUTPATIENT VISIT 15 MINUTES 01/17 12:00:00 AM EDT - 01/17/2021 12:00:00 AM EDT [facility] ([facility]) OFFICE OUTPATIENT VISIT 15 MINUTES 01/17/2021 12:00:00 AM EDT [facility] ([facility]) MHC Telemed E/M Lvl 3--Est pt 01/01/2021 12:00:00 AM EST - 01/01/2021 12:00:00 AM EST [facility] ([facility]) MHC Telemed E/M Lvl 3--Est pt 01/01/2021 12:00:[address] [facility] ([facility]) THERAPEUTIC PROPHYLACTIC/DX INJECTION SUBQ/IM 12/28/2020 12:00:00 AM EST - 12/28/2020 12:00:00 AM EST [facility] ([facility]) THERAPEUTIC PROPHYLACTIC/DX INJECTION SUBQ/IM 12/28/19 12:00:00 AM EST [facility] ([facility]) [facility] Telemed E/M Lvl 3--Est pt 12/20/2020 12:00:00 AM EST - 12/20/2020 12:00:00 AM EST [facility] ([facility]) [facility] Telemed E/M Lvl 3--Est pt 12/20/2020 12:00:[address] [facility] ([facility]) [facility] Telemed E/M Lvl 3--Est pt 12/06/2020 12:00:00 AM EST - 12/06/2020 12:00:00 AM EST [facility] ([facility]) [facility] Telemed E/M Lvl 3--Est pt 12/06/2020 12:00:[address] [facility] ([facility]) Comprehensive medication services, per 15 minutes 11/15/2020 12:00:00 AM EST - 11/15/2020 12:00:00 AM EST [facility] ([facility]) Comprehensive medication services, per 15 minutes 11/15/2020 12:00:00 AM EST [facility] ([facility]) OFFICE OUTPATIENT VISIT 15 MINUTES 11/15 12:00:00 AM EST - 11/15/2020 12:00:00 AM EST [facility] ([facility]) OFFICE OUTPATIENT VISIT 15 MINUTES 11/15/2020 12:00:00 AM EST [facility] ([facility]) THERAPEUTIC PROPHYLACTIC/DX INJECTION SUBQ/IM 10/18/2020 12:00:00 AM EST - 10/18/2020 12:00:00 AM EST [facility] ([facility]) THERAPEUTIC PROPHYLACTIC/DX INJECTION SUBQ/IM 10/18/20 20 12:00:00 AM EST [facility] ([facility]) THERAPEUTIC PROPHYLACTIC/DX INJECTION SUBQ/IM 10/15/2020 12:00:00 AM EST - 10/15/2020 12:00:00 AM EST [facility] ([facility]) THERAPEUTIC PROPHYLACTIC/DX INJECTION SUBQ/IM 10/15/20 20 12:00:00 AM EST [facility] ([facility]) THERAPEUTIC PROPHYLACTIC/DX INJECTION SUBQ/IM 10/04/2020 12:00:00 AM EST - 10/04/2020 12:00:00 AM EST [facility] ([facility]) THERAPEUTIC PROPHYLACTIC/DX INJECTION SUBQ/IM 10/04/20 20 12:00:00 AM EST [facility] ([facility]) OFFICE OUTPATIENT VISIT 15 MINUTES 10/04 12:00:00 AM EST - 10/04/2020 12:00:00 AM EST [facility] ([facility]) OFFICE OUTPATIENT VISIT 15 MINUTES 10/04/2020 12:00:00 AM EST [facility] ([facility]) OFFICE OUTPATIENT VISIT 15 MINUTES 09/12 12:00:00 AM EST - 09/12/2020 12:00:00 AM EST [facility] ([facility]) OFFICE OUTPATIENT VISIT 15 MINUTES 09/12/2020 12:00:00 AM EST [facility] ([facility]) THERAPEUTIC PROPHYLACTIC/DX INJECTION SUBQ/IM 09/12/2020 12:00:00 AM EST - 09/12/2020 12:00:00 AM EST [facility] ([facility]) THERAPEUTIC PROPHYLACTIC/DX INJECTION SUBQ/IM 09/12/20 20 12:00:00 AM EST [facility] ([facility]) OFFICE OUTPATIENT VISIT 15 MINUTES 08/10 12:00:00 AM EDT - 08/10/2020 12:00:00 AM EDT [facility] ([facility]) OFFICE OUTPATIENT VISIT 15 MINUTES 08/10/2020 12:00:00 AM EDT [facility] ([facility]) THERAPEUTIC PROPHYLACTIC/DX INJECTION SUBQ/IM 07/13/2020 12:00:00 AM EDT - 07/13/2020 12:00:00 AM EDT [facility] ([facility]) THERAPEUTIC PROPHYLACTIC/DX INJECTION SUBQ/IM 07/13/20 20 12:00:00 AM EDT [facility] ([facility]) Results ID Date Data Source [id number] 07/19/2021 10:40:00 AM EDT [facility] Name Value Range Interpretation Code Description Data Michelle rce(s) Supporting Document(s) SARS coronavirus 2 RNA [Presence] in Res piratory specimen by OMI with probe detection NEGATIVE [facility] This lab was ordered by [facility] a nd reported by [facility]. ID Date Data Source [id number] 07/19/2021 09:50:00 AM EDT [facility] Name Value Range Interpretation Code Description Data Michelle rce(s) Supporting Document(s) SARS COVID ANTIGEN NEGATIVE [facility] a nd reported by [facility]. ID Date Data Source [id number] 06/04/2021 08:17:00 PM EDT [facility] Name Value Range Interpretation Code Description Data Michelle rce(s) Supporting Document(s) SARS coronavirus 2 RNA [Presence] in Res piratory specimen by OMI with probe detection NEGATIVE [facility] This lab was ordered by [facility] a nd reported by [facility]. ID Date Data Source [id number] 05/01/2021 01:57:00 PM EDT [facility] Name Value Range Interpretation Code Description Data Michelle rce(s) Supporting Document(s) SARS coronavirus 2 RNA [Presence] in Res piratory specimen by OMI with probe detection NEGATIVE [facility] This lab was ordered by [facility] a nd reported by [facility]. ID Date Data Source [id number] 04/19/2021 06:29:00 AM EDT [facility] Name Value Range Interpretation Code Description Data Michelle rce(s) Supporting Document(s) SARS coronavirus 2 RNA [Presence] in Res piratory specimen by OMI with probe detection NEGATIVE [facility] This lab was ordered by [facility] a nd reported by [facility]. ID Date Data Source [id number] 04/17/2021 05:50:00 PM EDT [facility] Name Value Range Interpretation Code Description Data Michelle rce(s) Supporting Document(s) SARS-CoV-2 (COVID-19) RNA [Presence] in Respiratory specimen by OMI with probe detection Not Detected [facility] This lab was ordered by [facility] and reported by [facility]. ID Date Data Source [id number] 02/28/2021 04:53:00 [place] [address] HEALTH INFORMATION MANAGEMENT History and Physical Report : [id number] Signed Patient: Gabo Parra Acct:[id number] Unit: Low [id number] : 1980 Loc: [facility] Room/Bed: 0- Age/Sex: 40 / M ADM Date: 02/27/21 [...] charges for this visit?: Yes Inpt Consult [id number] Cons Level 1: Yes Signed By:Rambo Summers <<Signature on File>> Signed Date/Time: 02/28/211657 Co-Signer: Leonel Hubbard MD Co-Signed Date/Time: 02/28/21 8969 Initializing User: Rambo Summers NP 02/28/211652 52 1653 Name Value Range Interpretation Code Description Data Michelle rce(s) Supporting Document(s) ID Date Data Source [id number] 02/28/2021 10:45:00 AM EDT [facility] [address] [place] [address] HEALTH INFORMATION MANAGEMENT [facility] Psychosocial Summary : [id number] Signed Patient: Gabo Parra Acct:[id number] Unit: M [id number] : 1980 Loc: [facility] Room/Bed: 820-B Age/Sex: 40 / M ADM Date: 02/27/21 cc: General/History - Presenting Problem Presenting Problem: Social Summary/Discharge plan Presenting Problem Gabo is a40 yo AAM, extensive psych hx, also problems with substance abuse admitted on a transfer from [facility] ER brought in there by his CW as pt was feeling depressed, suicidal, also hallucinating and after abusing drugs History. tates was partially complaint with meds. Not able to name his psychiatrist in [place], not able to name the therapist. Gives h/o 5 to 6 inpt psych txs, last one few months ago, "I can't remember the place, they send me from [facility]. " Also, h'o inpt psych tx at [facility]. H/o self harm time, tried to hand [...] Person?: No Are you part of any mosque/spirtual community?: Yes (Latter-Day ) - Current Living/Relationship History Current Living Arrangement: House Who Do You Live With?: Mother. OK to Return Home: Yes Weapons in household: No Currently in a Relationship?: No Ever Been ?: No Any Children?: 2 - Family History Where Were You Born/Raised?: [place] Who Was in Home?: Mother, Father How [...] Reducing Risk: Complies with Tx/Meds, Future Oriented, Jainism Beliefs Mental Status Treatment - Mental Status [...] rce(s) Supporting Document(s) ID Date Data Source [id number] 02/27/2021 04:28:00 PM EDT [facility] Name Value Range Interpretation Code Description Data Michelle rce(s) Supporting Document(s) SARS coronavirus 2 RNA [Presence] in Res piratory specimen by OMI with probe detection NEGATIVE [facility] This lab was ordered by [facility] a nd reported by [facility]. ID Date Data Source [id number] 01/23/2021 01:03:00 AM EDT [facility] Name Value Range Interpretation Code Description Data Michelle rce(s) Supporting Document(s) SARS coronavirus 2 RNA [Presence] in Res piratory specimen by OMI with probe detection NEGATIVE [facility] This lab was ordered by [facility] a nd reported by [facility]. ID Date Data Source [id number] 10/17/2020 12:19:00 AM EST [facility] Name Value Range Interpretation Code Description Data Michelle rce(s) Supporting Document(s) SARS coronavirus 2 RNA [Presence] in Res piratory specimen by OMI with probe detection [facility] This lab was ordered by [facility] a nd reported by [facility]. Procedure Social History Code Duration Value Status Description Data Source(s ) Smoking 07/29/2021 12:00:00 AM EDT Unknown if ever smoked comp leted Unknown if ever smoked [facility] ([facility]) Smoking 06/24/2021 12:00:00 AM EDT Unknown if ever smoked comp leted Unknown if ever smoked [facility] ([facility]) Smoking 05/27/2021 12:00:00 AM EDT Unknown if ever smoked comp leted Unknown if ever smoked [facility] ([facility]) Smoking 05/13/2021 12:00:00 AM EDT Unknown if ever smoked comp leted Unknown if ever smoked [facility] ([facility] [address] [facility]) Smoking 04/04/2021 12:00:00 AM EDT Unknown if ever smoked comp leted Unknown if ever smoked [facility] ([facility]) Smoking 04/03/2021 12:00:00 AM EDT Unknown if ever smoked comp leted Unknown if ever smoked [facility] ([facility]) Smoking 03/27/2021 12:00:00 AM EDT Unknown if ever smoked comp leted Unknown if ever smoked [facility] ([facility]) Smoking 03/19/2021 12:00:00 AM EDT Unknown if ever smoked comp leted Unknown if ever smoked [facility] ([facility] [place] [facility]) Smoking 02/12/2021 12:00:00 AM EDT Unknown if ever smoked comp leted Unknown if ever smoked [facility] ([facility]) Smoking 02/07/2021 12:00:00 AM EDT Unknown if ever smoked comp leted Unknown if ever smoked [facility] ([facility]) Smoking 02/01/2021 12:00:00 AM EDT Unknown if ever smoked comp leted Unknown if ever smoked [facility] ([facility] [address] [facility]) Smoking 01/23/2021 12:00:00 AM EDT Unknown if ever smoked comp leted Unknown if ever smoked [facility] ([facility]) Smoking 01/18/2021 12:00:00 AM EDT Unknown if ever smoked comp leted Unknown if ever smoked [facility] ([facility]) Smoking 01/17/2021 12:00:00 AM EDT Unknown if ever smoked comp leted Unknown if ever smoked [facility] ([facility]) Smoking 01/01/2021 12:00:00 AM EST Unknown if ever smoked comp leted Unknown if ever smoked [facility] ([facility]) Smoking 12/28/2020 12:00:00 AM EST Unknown if ever smoked comp leted Unknown if ever smoked [facility] ([facility]) Smoking 12/20/2020 12:00:00 AM EST Unknown if ever smoked comp leted Unknown if ever smoked [facility] ([facility]) Smoking 12/06/2020 12:00:00 AM EST Unknown if ever smoked comp leted Unknown if ever smoked [facility] ([facility]) Smoking 11/15/2020 12:00:00 AM EST Unknown if ever smoked comp leted Unknown if ever smoked [facility] ([facility]) Smoking 10/18/2020 12:00:00 AM EST Unknown if ever smoked comp leted Unknown if ever smoked [facility] ([facility]) Smoking 10/15/2020 12:00:00 AM EST Unknown if ever smoked comp leted Unknown if ever smoked [facility] ([facility]) Smoking 10/04/2020 12:00:00 AM EST Unknown if ever smoked comp leted Unknown if ever smoked [facility] ([facility]) Smoking 09/12/2020 12:00:00 AM EST Unknown if ever smoked comp leted Unknown if ever smoked [facility] ([facility]) Smoking 08/10/2020 12:00:00 AM EDT Unknown if ever smoked comp leted Unknown if ever smoked [facility] ([facility]) Smoking 07/13/2020 12:00:00 AM EDT Unknown if ever smoked comp leted Unknown if ever smoked [facility] ([facility]) Vital Signs ID Date Data Source UNK Name Value Range Interpretation Code Description Data Source(s) Body height 0.00 in Normal (applies to non-numeric resu lts) 0.00 in [facility] ([facility]) Body weight Measured 0.00 lbs Normal (applies to n on-numeric results) 0.00 lbs [facility] ([facility]) Body mass index (BMI) [Ratio] 0.00 kg/m2 No rmal (applies to non-numeric results) 0.00 kg/m2 [facility] ([facility]) Systolic blood pressure 0 mm[Hg] Normal (applies t o non-numeric results) 0 mm[Hg] [facility] ([facility]) Diastolic blood pressure 0 mm[Hg] Normal (applies to non-numeric results) 0 mm[Hg] [facility] ([facility]) Body height 0.00 in Normal (applies to non-numeric resu lts) 0.00 in [facility] ([facility]) Body weight Measured 0.00 lbs Normal (applies to n on-numeric results) 0.00 lbs [facility] ([facility]) Body mass index (BMI) [Ratio] 0.00 kg/m2 No rmal (applies to non-numeric results) 0.00 kg/m2 [facility] ([facility]) Systolic blood pressure 0 mm[Hg] Normal (applies t o non-numeric results) 0 mm[Hg] [facility] ([facility]) Diastolic blood pressure 0 mm[Hg] Normal (applies to non-numeric results) 0 mm[facility]Hg] [facility] Body height 0.00 in Normal (applies to non-numeric resu lts) [facility].00 [facility] Body weight Measured 0.00 lbs Normal (applies to n on-numeric results) 0.00 lbs [facility] ([facility]) Body mass index (BMI) [Ratio] 0.00 kg/m2 No rmal (applies to non-numeric results) 0.00 kg/m2 [facility] ([facility]) Systolic blood pressure 0 mm[Hg] Normal (applies t o non-numeric results) 0 mm[Hg] [facility] ([facility]) Diastolic blood pressure 0 mm[Hg] Normal (applies to non-numeric results) 0 mm[Hg] [facility] ([facility]) Body height 0.00 in Normal (applies to non-numeric resu lts) 0.00 in [facility] ([facility]) Body weight Measured 0.00 lbs Normal (applies to n on-numeric results) 0.00 lbs [facility] ([facility]) Body mass index (BMI) [Ratio] 0.00 kg/m2 No rmal (applies to non-numeric results) 0.00 kg/m2 [facility] ([facility]) Systolic blood pressure 0 mm[Hg] Normal (applies t o non-numeric results) 0 mm[Hg] [facility] ([facility]) Diastolic blood pressure 0 mm[Hg] Normal (applies to non-numeric results) 0 mm[Hg] [facility] ([facility]) ID Date Data Source [id number] 09/22/2020 02:27:59 PM [facility] Name Value Range Interpretation Code Description Data Source(s) TRANSFER FROM [facility]
== END 2021-08-23 02:43 | disposition home or self-care (01) ==
LOC: M ED 21:23
DX: Z76.5 Malingerer [conscious simulation] (principal)

== ENCOUNTER 2021-08-26 03:55 | Emergency (ER) | payer OTHER ==
[~2021-08-26] VITALS: Ht 175.3 cm; Wt 72.2 kg
[~2021-08-26 03:55] MED LIST changes: +HALD100I2 IM
--- OUTSIDE RECORDS SUMMARY | 2021-08-26 04:03 | CCD ---
Author Author [facility] Organization [facility] Address Unknown Phone Unavailable Support Name Relationship Address Phone [place] GUTIERREZ, Pasha Next Of Kin [address] [place] [address] Diamante Costa Next Of Kin [address] [place] [address] Dwain Joseph DO Next Of Kin [address] [place] [address] Cameron Bingham MD Next Of Kin [address] [place] [address] SELFGARY Next Of Kin [address] [place] [address] YONI JACK Next Of Kin [address] [place] [address] CORRECTIONAL, NOORVIK Next Of Kin [address] [place] [address] Monique Conklin MD Next Of Kin [address] [place] [phone] YONI CALHOUN Next Of Kin [address] [place] [address] Isabelle Manning Next Of Kin [address] [place] [address] Pat Gallo DO Next Of Kin [address] [place] [address] DISABLED Next Of Kin Unknown Unavailable [place] Self Next Of Kin [address] [place] [phone] SELF, JUNIOR Next Of Kin [address] [place] [address] UE Next Of Kin Unknown Unavailable SIMON WALL Next Of Kin [address] [place] [address] SELF, JUNIOR [address] [place] [address] Unavailable Care Team Providers Care [employer] Tm1 Developer Name Role Phone Farden, M Rambo Unavailable [...] Rambo Unavailable Unavailable BILALJONNATHAN MD Unavailable Unavailable BILALJONNATHAN MD Unavailable Unavailable BILAL, JONNATHAN GUTIERREZ Unavailable Unavailable BILAL, JONNATHAN GUTIERREZ Unavailable Unavailable BILAL, JONNATHAN GUTIERREZ Unavailable Unavailable BILAL, JONNATHAN GUTIERREZ Unavailable Unavailable BILAL, JONNATHAN GUTIERREZ Unavailable Unavailable BILAL, JONNATHAN GUTIERREZ Unavailable Unavailable BILAL, JONNATHAN GUTIERREZ Unavailable Unavailable BILAL, JONNATHAN GUTIERREZ Unavailable Unavailable Gina Nash Unavailable AMILCAR, H ANSELMO INDIVIDUAL PENSION ADVISER Unavailable Unavailable AMILCAR, H ANSELMO INDIVIDUAL PENSION ADVISER Unavailable Unavailable AMILCAR, H ANSELMO INDIVIDUAL PENSION ADVISER Unavailable Unavailable AMILCAR, H ANSELMO INDIVIDUAL PENSION ADVISER Unavailable Unavailable AMILCAR, H ANSELMO INDIVIDUAL PENSION ADVISER Unavailable Unavailable AMILCAR, H ANSELMO INDIVIDUAL PENSION ADVISER Unavailable Unavailable AMILCAR, H ANSELMO INDIVIDUAL PENSION ADVISER Unavailable Unavailable AMILCAR, H ANSELMO INDIVIDUAL PENSION ADVISER Unavailable Unavailable AMILCAR, H ANSELMO INDIVIDUAL PENSION ADVISER Unavailable Unavailable Jossie Marcelino Unavailable Rotella, Jossy [...] by Article 27-F of the [facility] Public Health law. If you continue you may have access to information: Regarding HIV / AIDS; Provided by facilities licensed or operated by the [facility] Office of Mental Health; or Provided by the [facility] Office for People With Developmental Disabilities. If such information is present, then the following [facility] mandated warning applies: This information has been [...] allergy No Known Allergies No Known Allergies [facility] to adverse reactions NO KNOWN ALLERGIES NO KNOWN ALLERGIES [facility] Encounters Encounter Providers Location Date Indications Data Source(s ) Injectable Medication Administration w/ Monitoring & E ducation Attender: Pammurphy Isbellpo [facility] 07/29/2021 02:30:00 AM EDT - 07/29/2021 02:30:00 AM EDT [facility] ([facility]) Attender: Pam Isbellpo 07/29/2021 12:00:00 AM EDT [facility] ([facility]) Injectable Medication Administration w/ Monitoring & E ducation Attender: Thalia LondonDiaz [facility] 06/24/2021 10:45:00 AM EDT - 06/24/2021 10:45:00 AM EDT [facility] ([facility]) Attender: Thalia Carreno 06/24/2021 12:00:00 AM EDT [facility] ([facility]) Injectable Psychotropic Medication Administration (Inj ection Only) Attender: Thalia Carreno [facility] 05/27/2021 08:15:00 AM EDT - 05/27/2021 08:15:00 AM EDT [facility] ([facility]) Attender: Thalia Carreno 05/27/2021 12:00:00 AM EDT [facility] ([facility]) Brief Individual Psychotherapy - 30 min Attender: Gina yun [facility] 05/13/2021 08:30:00 AM EDT - 05/13/2021 08:30:00 AM EDT [facility] ([facility]) Attender: Gina Nash 05/13/2021 12:00:00 AM EDT [facility] ([facility]) Attender: Pam Isbellalyson 04/04/2021 12:00:00 AM EDT [facility] ([facility]) Injectable Medication Administration w/ Monitoring & E ducation Attender: Pam Sukhipo [facility] 04/03/2021 09:00:00 AM EDT - 04/03/2021 09:00:00 AM EDT [facility] ([facility]) Outpatient Attender: ANSELMO APONTE NP [facility] Mike garcía 04/03/2021 08:30:00 AM EDT - 04/03/2021 08:30:00 AM EDT [facility] ([facility]) Attender: ANSELMO APONTE NP 04/03/2021 12:00:00 AM EDT [facility] ([facility]) Outpatient Attender: ANSELMO APONTE NP [facility] Mike garcía 03/27/2021 11:00:00 AM EDT - 03/27/2021 11:00:00 AM EDT [facility] ([facility]) Attender: ANSELMO APONTE NP 03/27/2021 12:00:00 AM EDT [facility] ([facility]) Outpatient Attender: ANSELMO APONTE NP [facility] Mike garcía 03/19/2021 03:00:00 AM EDT - 03/19/2021 03:00:00 AM EDT [facility] ([facility]) Attender: ANSELMO APONTE NP 03/19/2021 12:00:00 AM EDT [facility] ([facility]) Inpatient Attender: JONNATHAN TRACY MDAdmitter: JONNATHAN TRACY MD 02/27/2021 08:12:00 PM EDT - 03/08/2021 03:27:00 PM EDT Suicidal Ideation / Homicidal Ideation [facility] Suicidal Ideation / Homicidal Ideation Patient discharged. Outpatient Attender: JONNATHAN TRACY MDAdmi tter: JONNATHAN TRACY MDConsultant: JONNATHAN TRACY MD 02/27/2021 08:12:00 PM EDT Suicidal Ideation / H omicidal Ideation [facility] Suicidal Ideation / Homicidal Ideation Outpatient Attender: JONNATHAN TRACY MDAdmi tter: JONNATHAN TRACY MDConsultant: JONNATHAN TRACY MD 02/27/2021 08:12:00 PM EDT Suicidal Ideation / H omicidal Ideation [facility] Suicidal Ideation / Homicidal Ideation Outpatient Attender: Castro ColonAdmitter : JONNATHAN TRACY MDConsultant: JONNATHAN TRACY MD 02/27/2021 08:12:00 PM EDT Suicidal Ideation / H omicidal Ideation [facility] Suicidal Ideation / Homicidal Ideation Outpatient Attender: JONNATHAN TRACY MDAdmi tter: JONNATHAN TRACY MDConsultant: OJNNATHAN TRACY MD 02/27/2021 08:12:00 PM EDT Suicidal Ideation / H omicidal Ideation [facility] Suicidal Ideation / Homicidal Ideation Outpatient Attender: JONNATHAN TRACY MDAdmi tter: JONNATHAN TRACY MDConsultant: JONNATHAN TRACY MD 02/27/2021 08:12:00 PM EDT Suicidal Ideation / H omicidal Ideation [facility] Suicidal Ideation / Homicidal Ideation Outpatient Attender: JONNATHAN TRACY MDAdmi tter: JONNATHAN TRACY MDConsultant: JONNATHAN TRACY MD 02/27/2021 08:12:00 PM EDT Suicidal Ideation / H omicidal Ideation [facility] Suicidal Ideation / Homicidal Ideation Outpatient Attender: Castro ColonAdmitter : JONNATHAN TRACY MDConsultant: JONNATHAN TRACY MD 02/27/2021 08:12:00 PM EDT Suicidal Ideation / H omicidal Ideation [facility] Suicidal Ideation / Homicidal Ideation Outpatient Attender: Castro ColonAdmitter : JONNATHAN TRACY MDConsultant: JONNATHAN TRACY MD 02/27/2021 08:12:00 PM EDT Suicidal Ideation / H omicidal Ideation [facility] Suicidal Ideation / Homicidal Ideation Outpatient Attender: JONNATHAN TRACY MDAdmi tter: JONNATHAN TRACY MDConsultant: JONNATHAN TRACY MD 02/27/2021 08:12:00 PM EDT Suicidal Ideation / H omicidal Ideation [facility] Suicidal Ideation / Homicidal Ideation Outpatient Attender: Rambo Pedroza mitter: JONNATHAN TRACY MDConsultant: JONNATHAN TRACY MD 02/27/2021 08:12:00 PM EDT Suicidal Ideation / H omicidal Ideation [facility] Suicidal Ideation / Homicidal Ideation Outpatient Attender: ANSELMO APONTE NP [facility] Mike garcía 02/12/2021 10:30:00 AM EDT - 02/12/2021 10:30:00 AM EDT [facility] ([facility]) Attender: ANSELMO APONTE NP 02/12/2021 12:00:00 AM EDT [facility] ([facility]) Outpatient Attender: ANSELMO APONTE NP [facility] raquel 02/07/2021 11:30:00 AM EDT - 02/07/2021 11:30:00 AM EDT [facility] ([facility]) Attender: ANSELMO APONTE NP 02/07/2021 12:00:00 AM EDT [facility] ([facility]) Brief Individual Psychotherapy - 30 min Attender: Gina yun [facility] 02/01/2021 02:00:00 AM EDT - 02/01/2021 02:00:00 AM EDT [facility] ([facility]) Attender: Gina Nash 02/01/2021 12:00:00 AM EDT [facility] ([facility]) Injectable Psychotropic Medication Administration (Inj ection Only) Attender: Thalia Carreno [facility] 01/23/2021 10:00:00 AM EDT - 01/23/2021 10:00:00 AM EDT [facility] ([facility]) Outpatient Attender: ANSELMO APONTE NP [facility] Mike raquel 01/23/2021 09:15:00 AM EDT - 01/23/2021 09:15:00 AM EDT [facility] ([facility]) Attender: ANSELMO APONTE NP 01/23/2021 12:00:00 AM EDT [facility] ([facility]) Attender: Thalia Carreno 01/23/2021 12:00:00 AM EDT [facility] ([facility]) Injectable Medication Administration w/ Monitoring & E ducation Att[facility]: Pam [facility]arez [facility] 01/18/2021 11:00:00 AM EDT - 01/18/2021 11:00:00 AM EDT [facility] ([facility]) Attender: Pam Juarez 01/18/2021 12:00:00 AM EDT [facility] ([facility]) Outpatient Attender: ANSELMO APONTE NP [facility] 01/17/2021 09:00:00 AM EDT - 01/17/2021 09:00:00 AM EDT [facility] ([facility]) Attender: ANSELMO APONTE NP 01/17/2021 12:00:00 AM EDT [facility] ([facility]) Outpatient Attender: ANSELMO APONTE NP [facility] raquel 01/01/2021 02:30:00 AM EST - 01/01/2021 02:30:00 AM EST [facility] ([facility]) Attender: ANSELMO APONTE NP 01/01/2021 12:00:00 AM EST [facility] ([facility]) Injectable Psychotropic Medication Administration (Inj ection Only) Attender: Jossie Marcelino [facility] 12/28/2020 10:30:00 AM EST - 12/28/2020 10:30:00 AM EST [facility] ([facility]) Attender: Jossie Marcelino 12/28/2020 12:00:00 AM EST [facility] ([facility]) Outpatient Attender: Victorino Escobar MD [facility] 12/20/2020 09:30:00 AM EST - 12/20/2020 09:30:00 AM EST [facility] ([facility]) Attender: Victorino Escobar MD 12/20/2020 12:00:00 AM EST [facility] ([facility]) Outpatient Attender: Victorino Escobar MD [facility] Mike garcía 12/06/2020 12:30:00 PM EST - 12/06/2020 12:30:00 PM EST [facility] ([facility]) Attender: Victorino Escobar MD 12/06/2020 12:00:00 AM EST [facility] ([facility]) Injectable Medication Administration w/ Monitoring & E ducation Attender: ORGANIZATION NPI ALIASES [facility] 11/15/2020 11:15: 00 AM EST - 11/15/2020 11:15:00 AM EST [facility] ([facility]) Outpatient Attender: Victorino Escobar MD [facility] Mike garcía 11/15/2020 11:00:00 AM EST - 11/15/2020 11:00:00 AM EST [facility] ([facility]) Attender: ORGANIZATION NPI ALIASES * 11/15/2020 12:00:00 AM EST [facility] ([facility]) Attender: Victorino Escobar MD 11/15/2020 12:00:00 AM EST [facility] ([facility]) Injectable Psychotropic Medication Administration (Inj ection Only) Attender: Jossy Mejia [facility] 10/18/2020 10:30:00 AM EST - 10/18/2020 10:30:00 AM EST [facility] ([facility]) Attender: Jossy Mejia 10/18/2020 12:00:00 AM EST [facility] ([facility]) Injectable Psychotropic Medication Administration (Inj ection Only) Attender: Jossy Mejia [facility] 10/15/2020 11:00:00 AM EST - 10/15/2020 11:00:00 AM EST [facility] ([facility]) Attender: Jossy Mejia 10/15/2020 12:00:00 AM EST [facility] ([facility]) Injectable Psychotropic Medication Administration (Inj ection Only) Attender: Jossy Rotteena [facility] 10/04/2020 10:30:00 AM EST - 10/04/2020 10:30:00 AM EST [facility] ([facility]) Outpatient Attender: KALLI MOLINAURSZULA [facility] 10/04/2020 10:00:00 AM EST - 10/04/2020 10:00:00 AM EST [facility] ([facility]) Attender: Jossy Mejia 10/04/2020 12:00:00 AM EST [facility] ([facility]) Attender: KALLI MOLINAURSZULA 10/04/2020 12:00: 00 AM EST [facility] ([facility]) Outpatient Referrer: [facility] [place] 09/22/2020 0 2:27:00 PM EST schizophrenia, hallucinations, substance abuse [facility] schizophrenia, hallucinations, substance abuse Injectable Psychotropic Medication Administration (Inj ection Only) Attender: Jossy Jackteena [facility] 09/12/2020 09:30:00 AM EST - 09/12/2020 09:30:00 AM EST [facility] ([facility]) Outpatient Attender: KALLI MOLINAURSZULA [facility] 09/12/2020 09:00:00 AM EST - 09/12/2020 09:00:00 AM EST [facility] ([facility]) Attender: KALLI MOLINAURSZULA 09/12/2020 12:00: 00 AM EST [facility] ([facility]) Attender: Jossy Mejia 09/12/2020 12:00:00 AM EST [facility] ([facility]) Outpatient Attender: KALLI MOLINAURSZULA [facility] 08/10/2020 02:00:00 AM EDT - 08/10/2020 02:00:00 AM EDT [facility] ([facility]) Attender: KALLI MOLINAURSZULA 08/10/2020 12:00: 00 AM EDT [facility] ([facility]) Injectable Psychotropic Medication Administration (Inj ection Only) Attender: Jossy Santiagoteena [facility] 07/13/2020 02:00:00 AM EDT - 07/13/2020 02:00:00 AM EDT [facility] ([facility]) Attender: Jossy Mejia 07/13/2020 12:00:00 AM EDT [facility] ([facility]) Outpatient Attender: Pasha MOLINA 07/12/2020 02:46:50 PM EDT [facility] Functional Status Medications Medication Brand Name Start Date Product Form Dose Route Admi nistrative Instructions Pharmacy Instructions Status Indications Reaction Description Data Source(s) Prazosin 1 MG Oral Capsule prazosin 07/10/2021 12:00:00 AM EDT 1 mg by mouth completed <td ID="Medicat ionRxNorm_4">294948</td><td ID="MedicationMedication_4">prazosin</td><td ID="MedicationRoute_4">by mouth</td><td ID="MedicationRouteConcept_4">L63135</td><td ID="MedicationStartDate_4">07/10/2021</td><td ID="MedicationStopDate_4">08/09/2021</td><td ID="MedicationDosageFrequency_4">at bedtime</td><td ID="MedicationDuration_4">30</td><td ID="MedicationFormulaStrength_4">1 mg</td><td ID="MedicationDosageForm_4">capsule</td><td ID="MedicationDosageFormCode_4"></td><td ID="MedicationDosageDescription_4"></td><td ID="MedicationMedicationId_4">[id number]</td><td ID="MedicationAccount_4">[id number]</td><td ID="MedicationNpid_4">[id number]</td><td ID="MedicationAuthorFirstName_4">Anselmo</td><td ID="MedicationAuthorLastName_4">Amilcar</td><td ID="MedicationTaxonomyCode_4">[id number]</td><td ID="MedicationTaxonomyDesc_4">Nurse Practitioner</td><td ID="MedicationPhoneNumber_4">[phone]</td> [facility] ([facility]) olanzapine 5 MG Oral Tablet [Zyprexa] Zyprexa 05/23/2021 12:00:00 AM EDT 5 mg by mouth completed <td ID="Medica tionRxNorm_2">[id number]</td><td ID="MedicationMedication_2">Zyprexa</td><td ID="MedicationRoute_2">by mouth</td><td ID="MedicationRouteConcept_2">I19108</td><td ID="MedicationStartDate_2">05/23/2021</td><td ID="MedicationStopDate_2">08/09/2021</td><td ID="MedicationDosageFrequency_2">at bedtime</td><td ID="MedicationDuration_2">30</td><td ID="MedicationFormulaStrength_2">5 mg</td><td ID="MedicationDosageForm_2">tablet</td><td ID="MedicationDosageFormCode_2"></td><td ID="MedicationDosageDescription_2"></td><td ID="MedicationMedicationId_2">[id number]</td><td ID="MedicationAccount_2">[id number]</td><td ID="MedicationNpid_2">[id number]</td><td ID="MedicationAuthorFirstName_2">Anselmo</td><td ID="MedicationAuthorLastName_2">Amilcar</td><td ID="MedicationTaxonomyCode_2">[id number]</td><td ID="MedicationTaxonomyDesc_2">Nurse Practitioner</td><td ID="MedicationPhoneNumber_2">[phone]</td> [facility] ([facility]) benztropine mesylate 1 MG Oral Tablet benztropine 05/23/2021 12:00 :00 AM EDT 1 mg by mouth completed <td ID="Me dicationRxNorm_3">523366</td><td ID="MedicationMedication_3">benztropine</td><td ID="MedicationRoute_3">by mouth</td><td ID="MedicationRouteConcept_3">G92768</td><td ID="MedicationStartDate_3">05/23/2021</td><td ID="MedicationStopDate_3">08/09/2021</td><td ID="MedicationDosageFrequency_3">at bedtime</td><td ID="MedicationDuration_3">30</td><td ID="MedicationFormulaStrength_3">1 mg</td><td ID="MedicationDosageForm_3">tablet</td><td ID="MedicationDosageFormCode_3"></td><td ID="MedicationDosageDescription_3"></td><td ID="MedicationMedicationId_3">[id number]</td><td ID="MedicationAccount_3">[id number]</td><td ID="MedicationNpid_3">[id number]</td><td ID="MedicationAuthorFirstName_3">Anselmo</td><td ID="MedicationAuthorLastName_3">Amilcar</td><td ID="MedicationTaxonomyCode_3">[id number]</td><td ID="MedicationTaxonomyDesc_3">Nurse Practitioner</td><td ID="MedicationPhoneNumber_3">[phone]</td> [facility] 1.5 ML paliperidone palmitate 156 MG/ML Prefilled Syri nge [Invega] Invega Sustenna 04/16/2021 12:00:00 AM EDT 234 mg/1.5 compl eted <td ID="MedicationRxNorm_1">801018</td><td ID="MedicationMedication_1">Invega Sustenna</td><td ID="MedicationRoute_1"></td><td ID="MedicationRouteConcept_1"></td><td ID="MedicationStartDate_1">04/16/2021</td><td ID="MedicationStopDate_1"></td><td ID="MedicationDosageFrequency_1"></td><td ID="MedicationDuration_1"></td><td ID="MedicationFormulaStrength_1">234 mg/1.5 mL</td><td ID="MedicationDosageForm_1">syringe</td><td ID="MedicationDosageFormCode_1"></td><td ID="MedicationDosageDescription_1"> </td><td ID="MedicationMedicationId_1">[id number]</td><td ID="MedicationAccount_1">[id number]</td><td ID="MedicationNpid_1">[id number]</td><td ID="MedicationAuthorFirstName_1">Anselmo</td><td ID="MedicationAuthorLastName_1">Amilcar</td><td ID="MedicationTaxonomyCode_1">[id number]</td><td ID="MedicationTaxonomyDesc_1">Nurse Practitioner</td><td ID="MedicationPhoneNumber_1">[phone]</td> [facility] ([facility] 2.625 ML paliperidone palmitate 312 MG/ML Prefilled Sy ringe [Invega] Invsuleiman Quintanillaza 04/03/2021 12:00:00 AM EDT 819 mg/2.625 compl eted <td ID="MedicationRxNorm_3">[id number]</td><td ID="MedicationMedication_3">Invega Trinza</td><td ID="MedicationRoute_3">intramuscularly</td><td ID="MedicationRouteConcept_3"></td><td ID="MedicationStartDate_3">04/03/2021</td><td ID="MedicationStopDate_3">07/02/2021</td><td ID="MedicationDosageFrequency_3">every three months</td><td ID="MedicationDuration_3">90</td><td ID="MedicationFormulaStrength_3">819 mg/2.625 mL</td><td ID="MedicationDosageForm_3">syringe</td><td ID="MedicationDosageFormCode_3"></td><td ID="MedicationDosageDescription_3"></td><td ID="MedicationMedicationId_3">[id number]</td><td ID="MedicationAccount_3">[id number]</td><td ID="MedicationNpid_3">[id number]</td><td ID="MedicationAuthorFirstName_3">Anselmo</td><td ID="MedicationAuthorLastName_3">Amilcar</td><td ID="MedicationTaxonomyCode_3">[id number]</td><td ID="MedicationTaxonomyDesc_3"> Nurse Practitioner</td><td ID="MedicationPhoneNumber_3">[phone]</td> [facility] ([facility]) 2.625 ML paliperidone palmitate 312 MG/ML Prefilled Sy ringe [Invega] Invega Trinza 04/03/2021 12:00:00 AM EDT 819 mg/2.625 compl eted <td ID="MedicationRxNorm_4">[id number]</td><td ID="MedicationMedication_4">Invega Trinza</td><td ID="MedicationRoute_4">intramuscularly</td><td ID="MedicationRouteConcept_4"></td><td ID="MedicationStartDate_4">04/03/2021</td><td ID="MedicationStopDate_4">07/02/2021</td><td ID="MedicationDosageFrequency_4">every three months</td><td ID="MedicationDuration_4">90</td><td ID="MedicationFormulaStrength_4">819 mg/2.625 mL</td><td ID="MedicationDosageForm_4">syringe</td><td ID="MedicationDosageFormCode_4"></td><td ID="MedicationDosageDescription_4"></td><td ID="MedicationMedicationId_4">[id number]</td><td ID="MedicationAccount_4">[id number]</td><td ID="MedicationNpid_4">[id number]</td><td ID="MedicationAuthorFirstName_4">Anselmo</td><td ID="MedicationAuthorLastName_4">Amilcar</td><td ID="MedicationTaxonomyCode_4">[id number]</td><td ID="MedicationTaxonomyDesc_4"> Nurse Practitioner</td><td ID="MedicationPhoneNumber_4">[phone]</td> [facility] ([facility]) haloperidol decanoate haloperidol decanoate 04/03/2021 12:00:00 AM EDT 100 mg/mL completed <td ID="Me dicationRxNorm_2">[id number]</td><td ID="MedicationMedication_2">haloperidol decanoate</td><td ID="MedicationRoute_2">intramuscularly</td><td ID="MedicationRouteConcept_2"> </td><td ID="MedicationStartDate_2">04/03/2021</td><td ID="MedicationStopDate_2">04/03/2021</td><td ID="MedicationDosageFrequency_2">every four weeks</td><td ID="MedicationDuration_2">28</td><td ID="MedicationFormulaStrength_2">100 mg/mL</td><td ID="MedicationDosageForm_2">solution</td><td ID="MedicationDosageFormCode_2"></td><td ID="MedicationDosageDescription_2"></td><td ID="MedicationMedicationId_2">[id number]</td><td ID="MedicationAccount_2">[id number]</td><td ID="MedicationNpid_2">[id number]</td><td ID="MedicationAuthorFirstName_2">Anselmo</td><td ID="MedicationAuthorLastName_2">Amilcar</td><td ID="MedicationTaxonomyCode_2">[id number]</td><td ID="MedicationTaxonomyDesc_2"> Nurse Practitioner</td><td ID="MedicationPhoneNumber_2">[phone]</td> [facility] ([facility]) benztropine mesylate 1 MG Oral Tablet benztropine 04/03/2021 12:00 :00 AM EDT 1 mg by mouth completed <td ID="Me dicationRxNorm_2">761498</td><td ID="MedicationMedication_2">benztropine</td><td ID="MedicationRoute_2">by mouth</td><td ID="MedicationRouteConcept_2">N05184</td><td ID="MedicationStartDate_2">04/03/2021</td><td ID="MedicationStopDate_2">05/03/2021</td><td ID="MedicationDosageFrequency_2">at bedtime</td><td ID="MedicationDuration_2">30</td><td ID="MedicationFormulaStrength_2">1 mg</td><td ID="MedicationDosageForm_2">tablet</td><td ID="MedicationDosageFormCode_2"></td><td ID="MedicationDosageDescription_2"></td><td ID="MedicationMedicationId_2">[id number]</td><td ID="MedicationAccount_2">[id number]</td><td ID="MedicationNpid_2">[id number]</td><td ID="MedicationAuthorFirstName_2">Anselmo</td><td ID="MedicationAuthorLastName_2">Amilcar</td><td ID="MedicationTaxonomyCode_2">[id number]</td><td ID="MedicationTaxonomyDesc_2">Nurse Practitioner</td><td ID="MedicationPhoneNumber_2">[phone]</td> [facility] ([facility]) olanzapine 5 MG Oral Tablet [Zyprexa] Zyprexa 04/03/2021 12:00:00 AM EDT 5 mg by mouth completed <td ID="Medica tionRxNorm_1">083793</td><td ID="MedicationMedication_1">Zyprexa</td><td ID="MedicationRoute_1">by mouth</td><td ID="MedicationRouteConcept_1">G68335</td><td ID="MedicationStartDate_1">04/03/2021</td><td ID="MedicationStopDate_1">05/03/2021</td><td ID="MedicationDosageFrequency_1">at bedtime</td><td ID="MedicationDuration_1">30</td><td ID="MedicationFormulaStrength_1">5 mg</td><td ID="MedicationDosageForm_1">tablet</td><td ID="MedicationDosageFormCode_1"></td><td ID="MedicationDosageDescription_1"></td><td ID="MedicationMedicationId_1">[id number]</td><td ID="MedicationAccount_1">[id number]</td><td ID="MedicationNpid_1">[id number]</td><td ID="MedicationAuthorFirstName_1">Anselmo</td><td ID="MedicationAuthorLastName_1">Amilcar</td><td ID="MedicationTaxonomyCode_1">[id number]</td><td ID="MedicationTaxonomyDesc_1">Nurse Practitioner</td><td ID="MedicationPhoneNumber_1">[phone]</td> [facility] 2.625 ML paliperidone palmitate 312 MG/ML Prefilled Sy ringe [Invega] Invega Trinza 04/03/2021 12:00:00 AM EDT 819 mg/2.625 compl eted <td ID="MedicationRxNorm_5">[id number]</td><td ID="MedicationMedication_5">Invega Trinza</td><td ID="MedicationRoute_5">intramuscularly</td><td ID="MedicationRouteConcept_5"></td><td ID="MedicationStartDate_5">04/03/2021</td><td ID="MedicationStopDate_5">07/02/2021</td><td ID="MedicationDosageFrequency_5">every three months</td><td ID="MedicationDuration_5">90</td><td ID="MedicationFormulaStrength_5">819 mg/2.625 mL</td><td ID="MedicationDosageForm_5">syringe</td><td ID="MedicationDosageFormCode_5"></td><td ID="MedicationDosageDescription_5"></td><td ID="MedicationMedicationId_5">[id number]</td><td ID="MedicationAccount_5">[id number]</td><td ID="MedicationNpid_5">[id number]</td><td ID="MedicationAuthorFirstName_5">Anselmo</td><td ID="MedicationAuthorLastName_5">Amilcar</td><td ID="MedicationTaxonomyCode_5">[id number]</td><td ID="MedicationTaxonomyDesc_5"> Nurse Practitioner</td><td ID="MedicationPhoneNumber_5">[phone]</td> [facility] ([facility]) benztropine mesylate 1 MG Oral Tablet benztropine 04/03/2021 12:00 :00 AM EDT 1 mg by mouth completed <td ID="Me dicationRxNorm_4">138419</td><td ID="MedicationMedication_4">benztropine</td><td ID="MedicationRoute_4">by mouth</td><td ID="MedicationRouteConcept_4">G30224</td><td ID="MedicationStartDate_4">04/03/2021</td><td ID="MedicationStopDate_4">05/03/2021</td><td ID="MedicationDosageFrequency_4">at bedtime</td><td ID="MedicationDuration_4">30</td><td ID="MedicationFormulaStrength_4">1 mg</td><td ID="MedicationDosageForm_4">tablet</td><td ID="MedicationDosageFormCode_4"></td><td ID="MedicationDosageDescription_4"></td><td ID="MedicationMedicationId_4">[id number]</td><td ID="MedicationAccount_4">[id number]</td><td ID="MedicationNpid_4">[id number]</td><td ID="MedicationAuthorFirstName_4">Anselmo</td><td ID="MedicationAuthorLastName_4">Amilcar</td><td ID="MedicationTaxonomyCode_4">[id number]</td><td ID="MedicationTaxonomyDesc_4">Nurse Practitioner</td><td ID="MedicationPhoneNumber_4">[phone]</td> [facility] ([facility] olanzapine 5 MG Oral Tablet [Zyprexa] Zyprexa 04/03/2021 12:00:00 AM EDT 5 mg by mouth completed <td ID="Medica tionRxNorm_3">443958</td><td ID="MedicationMedication_3">Zyprexa</td><td ID="MedicationRoute_3">by mouth</td><td ID="MedicationRouteConcept_3">M59598</td><td ID="MedicationStartDate_3">04/03/2021</td><td ID="MedicationStopDate_3">05/03/2021</td><td ID="MedicationDosageFrequency_3">at bedtime</td><td ID="MedicationDuration_3">30</td><td ID="MedicationFormulaStrength_3">5 mg</td><td ID="MedicationDosageForm_3">tablet</td><td ID="MedicationDosageFormCode_3"></td><td ID="MedicationDosageDescription_3"></td><td ID="MedicationMedicationId_3">[id number]</td><td ID="MedicationAccount_3">[id number]</td><td ID="MedicationNpid_3">[id number]</td><td ID="MedicationAuthorFirstName_3">Anselmo</td><td ID="MedicationAuthorLastName_3">Amilcar</td><td ID="MedicationTaxonomyCode_3">[id number]</td><td ID="MedicationTaxonomyDesc_3">Nurse Practitioner</td><td ID="MedicationPhoneNumber_3">[phone]</td> [facility] ([facility]) 2.625 ML paliperidone palmitate 312 MG/ML Prefilled Sy ringe [Invega] Invega Trinza 04/03/2021 12:00:00 AM EDT 819 mg/2.625 compl eted <td ID="MedicationRxNorm_2">[id number]</td><td ID="MedicationMedication_2">Invega Trinza</td><td ID="MedicationRoute_2">intramuscularly</td><td ID="MedicationRouteConcept_2"></td><td ID="MedicationStartDate_2">04/03/2021</td><td ID="MedicationStopDate_2">07/02/2021</td><td ID="MedicationDosageFrequency_2">every three months</td><td ID="MedicationDuration_2">90</td><td ID="MedicationFormulaStrength_2">819 mg/2.625 mL</td><td ID="MedicationDosageForm_2">syringe</td><td ID="MedicationDosageFormCode_2"></td><td ID="MedicationDosageDescription_2"></td><td ID="MedicationMedicationId_2">[id number]</td><td ID="MedicationAccount_2">[id number]</td><td ID="MedicationNpid_2">[id number]</td><td ID="MedicationAuthorFirstName_2">Anselmo</td><td ID="MedicationAuthorLastName_2">Amilcar</td><td ID="MedicationTaxonomyCode_2">[id number]</td><td ID="MedicationTaxonomyDesc_2"> Nurse Practitioner</td><td ID="MedicationPhoneNumber_2">[phone]</td> [facility] ([facility]) haloperidol decanoate haloperidol decanoate 10/04/2020 12:00:00 AM EST 100 mg/mL completed <td ID="Me dicationRxNorm_1">8204101</td><td ID="MedicationMedication_1">haloperidol decanoate</td><td ID="MedicationRoute_1">intramuscularly</td><td ID="MedicationRouteConcept_1"> </td><td ID="MedicationStartDate_1">10/04/2020</td><td ID="MedicationStopDate_1">04/03/2021</td><td ID="MedicationDosageFrequency_1">as directed</td><td ID="MedicationDuration_1">21</td><td ID="MedicationFormulaStrength_1">100 mg/mL</td><td ID="MedicationDosageForm_1">solution</td><td ID="MedicationDosageFormCode_1"></td><td ID="MedicationDosageDescription_1"></td><td ID="MedicationMedicationId_1">[id number]</td><td ID="MedicationAccount_1">[id number]</td><td ID="MedicationNpid_1">[id number]</td><td ID="MedicationAuthorFirstName_1">Victorino</td><td ID="MedicationAuthorLastName_1">Escobar</td><td ID="MedicationTaxonomyCode_1">[id number]</td><td ID="MedicationTaxonomyDesc_1"> Psychiatry</td><td ID="MedicationPhoneNumber_1">[phone]</td> [facility] ([facility] 100 mg/mL 10/02/2020 12:00:00 AM EST solution 1 INJECT 1ML INTRAMUSCULARLY EVERY 3 WEEKS INJECT 1ML INTRAMUSCULARLY EVERY 3 WEEKS SOLD: 10/04/2020 [facility] 10 mg 09/28/2020 12:00:00 AM EST [...] 50 mg by mouth completed <td ID="Medic ationRxNorm_5">050995</td><td ID="MedicationMedication_5">trazodone</td><td ID="MedicationRoute_5">by mouth</td><td ID="MedicationRouteConcept_5">O46186</td><td ID="MedicationStartDate_5">09/12/2020</td><td ID="MedicationStopDate_5">10/12/2020</td><td ID="MedicationDosageFrequency_5">every night</td><td ID="MedicationDuration_5">30</td><td ID="MedicationFormulaStrength_5">50 mg</td><td ID="MedicationDosageForm_5">tablet</td><td ID="MedicationDosageFormCode_5"></td><td ID="MedicationDosageDescription_5"></td><td ID="MedicationMedicationId_5">[id number]</td><td ID="MedicationAccount_5">[id number]</td><td ID="MedicationNpid_5">[id number]</td><td ID="MedicationAuthorFirstName_5">Kalli</td><td ID="MedicationAuthorLastName_5">Egorho</td><td ID="MedicationTaxonomyCode_5">[id number]</td><td ID="MedicationTaxonomyDesc_5">Nurse Practitioner</td><td ID="MedicationPhoneNumber_5">[phone]</td> [facility] ([facility]) Trazodone Hydrochloride 50 MG Oral Tablet trazodone 2019 12:00:00 AM EST 50 mg by mouth completed <td ID="Medic ationRxNorm_1">495588</td><td ID="MedicationMedication_1">trazodone</td><td ID="MedicationRoute_1">by mouth</td><td ID="MedicationRouteConcept_1">I11888</td><td ID="MedicationStartDate_1">09/12/2020</td><td ID="MedicationStopDate_1">10/12/2020</td><td ID="MedicationDosageFrequency_1">every night</td><td ID="MedicationDuration_1">30</td><td ID="MedicationFormulaStrength_1">50 mg</td><td ID="MedicationDosageForm_1">tablet</td><td ID="MedicationDosageFormCode_1"></td><td ID="MedicationDosageDescription_1"></td><td ID="MedicationMedicationId_1">[id number]</td><td ID="MedicationAccount_1">[id number]</td><td ID="MedicationNpid_1">[id number]</td><td ID="MedicationAuthorFirstName_1">Kalli</td><td ID="MedicationAuthorLastName_1">Egorho</td><td ID="MedicationTaxonomyCode_1">[id number]</td><td ID="MedicationTaxonomyDesc_1">Nurse Practitioner</td><td ID="MedicationPhoneNumber_1">[phone]</td> [facility] ([facility]) Haldol Decanoate Haldol Decanoate 09/12/2020 12:00:00 AM EST 100 mg/mL completed <td ID="MedicationRx Norm_4">7109511</td><td ID="MedicationMedication_4">Haldol Decanoate</td><td ID="MedicationRoute_4">intramuscularly</td><td ID="MedicationRouteConcept_4"></td><td ID="MedicationStartDate_4">09/12/2020</td><td ID="MedicationStopDate_4">09/15/2020</td><td ID="MedicationDosageFrequency_4">as directed</td><td ID="MedicationDuration_4">1</td><td ID="MedicationFormulaStrength_4">100 mg/mL</td><td ID="MedicationDosageForm_4">solution</td><td ID="MedicationDosageFormCode_4"></td><td ID="MedicationDosageDescription_4"></td><td ID="MedicationMedicationId_4">[id number]</td><td ID="MedicationAccount_4">[id number]</td><td ID="MedicationNpid_4">[id number]</td><td ID="MedicationAuthorFirstName_4">Kalli</td><td ID="MedicationAuthorLastName_4">Egorho</td><td ID="MedicationTaxonomyCode_4">[id number]</td><td ID="MedicationTaxonomyDesc_4">Nurse Practitioner</td><td ID="MedicationPhoneNumber_4">[phone]</td> [facility] ([facility]) quetiapine 300 MG Oral Tablet quetiapine 01/06/2020 12:00:00 AM EST 300 mg completed <td ID="Medicat ionRxNorm_4">138643</td><td ID="MedicationMedication_4">quetiapine</td><td ID="MedicationRoute_4"></td><td ID="MedicationRouteConcept_4"></td><td ID="MedicationStartDate_4">01/06/2020</td><td ID="MedicationStopDate_4">01/05/2021</td><td ID="MedicationDosageFrequency_4">at bedtime</td><td ID="MedicationDuration_4">30</td><td ID="MedicationFormulaStrength_4">300 mg</td><td ID="MedicationDosageForm_4">tablet</td><td ID="MedicationDosageFormCode_4"></td><td ID="MedicationDosageDescription_4"></td><td ID="MedicationMedicationId_4">[id number]</td><td ID="MedicationAccount_4">[id number]</td><td ID="MedicationNpid_4">[id number]</td><td ID="MedicationAuthorFirstName_4">Dane</td><td ID="MedicationAuthorLastName_4">Loida</td><td ID="MedicationTaxonomyCode_4">[id number]</td><td ID="MedicationTaxonomyDesc_4">Psychiatric/Mental Health</td><td ID="MedicationPhoneNumber_4">[phone]</td> [facility] ([facility]) quetiapine 300 MG Oral Tablet quetiapine 01/06/2020 12:00:00 AM EST 300 mg completed <td ID="Medicat ionRxNorm_1">526611</td><td ID="MedicationMedication_1">quetiapine</td><td ID="MedicationRoute_1"></td><td ID="MedicationRouteConcept_1"></td><td ID="MedicationStartDate_1">01/06/2020</td><td ID="MedicationStopDate_1">01/05/2021</td><td ID="MedicationDosageFrequency_1">at bedtime</td><td ID="MedicationDuration_1">30</td><td ID="MedicationFormulaStrength_1">300 mg</td><td ID="MedicationDosageForm_1">tablet</td><td ID="MedicationDosageFormCode_1"></td><td ID="MedicationDosageDescription_1"></td><td ID="MedicationMedicationId_1">[id number]</td><td ID="MedicationAccount_1">[id number]</td><td ID="MedicationNpid_1">[id number]</td><td ID="MedicationAuthorFirstName_1">Dane</td><td ID="MedicationAuthorLastName_1">Loida</td><td ID="MedicationTaxonomyCode_1">[id number]</td><td ID="MedicationTaxonomyDesc_1">Psychiatric/Mental Health</td><td ID="MedicationPhoneNumber_1">[phone]</td> [facility] ([facility]) quetiapine 300 MG Oral Tablet quetiapine 01/06/2020 12:00:00 AM EST 300 mg completed <td ID="Medicat ionRxNorm_5">408800</td><td ID="MedicationMedication_5">quetiapine</td><td ID="MedicationRoute_5"></td><td ID="MedicationRouteConcept_5"></td><td ID="MedicationStartDate_5">01/06/2020</td><td ID="MedicationStopDate_5">01/05/2021</td><td ID="MedicationDosageFrequency_5">at bedtime</td><td ID="MedicationDuration_5">30</td><td ID="MedicationFormulaStrength_5">300 mg</td><td ID="MedicationDosageForm_5">tablet</td><td ID="MedicationDosageFormCode_5"></td><td ID="MedicationDosageDescription_5"></td><td ID="MedicationMedicationId_5">[id number]</td><td ID="MedicationAccount_5">[id number]</td><td ID="MedicationNpid_5">[id number]</td><td ID="MedicationAuthorFirstName_5">Dane</td><td ID="MedicationAuthorLastName_5">[place]</td><td ID="MedicationTaxonomyCode_5">[id number]</td><td ID="MedicationTaxonomyDesc_5">Psychiatric/Mental Health</td><td ID="MedicationPhoneNumber_5">[phone]</td> [facility] ([facility]) Aristada Ariada 12/20/2019 12:00:00 AM EST mg/3.9 completed <td ID="MedicationRxNorm_3">0450363</td><td ID="MedicationMedication_3">Aristada</td><td ID="MedicationRoute_3">intramuscularly</td><td ID="MedicationRouteConcept_3"></td><td ID="MedicationStartDate_3">12/20/2019</td><td ID="MedicationStopDate_3">09/12/2020</td><td ID="MedicationDosageFrequency_3"></td><td ID="MedicationDuration_3"></td><td ID="MedicationFormulaStrength_3">1,064 mg/3.9 mL</td><td ID="MedicationDosageForm_3">suspension,extended rel syring</td><td ID="MedicationDosageFormCode_3"></td><td ID="MedicationDosageDescription_3">as directed</td><td ID="MedicationMedicationId_3">[id number]</td><td ID="MedicationAccount_3">[id number]</td><td ID="MedicationNpid_3">[id number]</td><td ID="MedicationAuthorFirstName_3">Dane</td><td ID="MedicationAuthorLastName_3">Loida</td><td ID="MedicationTaxonomyCode_3">[id number]</td><td ID="MedicationTaxonomyDesc_3"> Psychiatric/Mental Health</td><td ID="MedicationPhoneNumber_3">[phone]</td> [facility] ([facility]) Trazodone Hydrochloride 50 MG Oral Tablet trazodone 2018 12:00:00 AM EDT 50 mg by mouth completed <td ID="Medic ationRxNorm_2">057737</td><td ID="MedicationMedication_2">trazodone</td><td ID="MedicationRoute_2">by mouth</td><td ID="MedicationRouteConcept_2">F44767</td><td ID="MedicationStartDate_2">06/10/2019</td><td ID="MedicationStopDate_2">09/12/2020</td><td ID="MedicationDosageFrequency_2">at bedtime</td><td ID="MedicationDuration_2"></td><td ID="MedicationFormulaStrength_2">50 mg</td><td ID="MedicationDosageForm_2">tablet</td><td ID="MedicationDosageFormCode_2"></td><td ID="MedicationDosageDescription_2"></td><td ID="MedicationMedicationId_2">[id number]</td><td ID="MedicationAccount_2">[id number]</td><td ID="MedicationNpid_2">[id number]</td><td ID="MedicationAuthorFirstName_2">Dane</td><td ID="MedicationAuthorLastName_2">[place]</td><td ID="MedicationTaxonomyCode_2">[id number]</td><td ID="MedicationTaxonomyDesc_2">Psychiatric/Mental Health</td><td ID="MedicationPhoneNumber_2">[phone]</td> [facility] ([facility]) Amantadine Hydrochloride 100 MG Oral Capsule amantadine HCl 07/30/2017 12:00:00 AM EDT 100 mg by mouth completed <td ID="MedicationRxNorm_1">140440</td><td ID="MedicationMedication_1">amantadine HCl</td><td ID="MedicationRoute_1">by mouth</td><td ID="MedicationRouteConcept_1">C08733</td><td ID="MedicationStartDate_1">07/30/2017</td><td ID="MedicationStopDate_1">09/12/2020</td><td ID="MedicationDosageFrequency_1">every morning</td><td ID="MedicationDuration_1"></td><td ID="MedicationFormulaStrength_1">100 mg</td><td ID="MedicationDosageForm_1">capsule</td><td ID="MedicationDosageFormCode_1"></td><td ID="MedicationDosageDescription_1"></td><td ID="MedicationMedicationId_1">06775</td><td ID="MedicationAccount_1">[id number]</td><td ID="MedicationNpid_1">[id number]</td><td ID="MedicationAuthorFirstName_1">Dane</td><td ID="MedicationAuthorLastName_1">[place]</td><td ID="MedicationTaxonomyCode_1">[id number]</td><td ID="MedicationTaxonomyDesc_1">Psychiatric/Mental Health</td><td ID="MedicationPhoneNumber_1">[phone]</td> [facility] ([facility]) Insurance Providers Payer name Policy type / Coverage type Policy ID Covered republican ID Covered republican's relationship to shafer Policy Shafer Plan Information Medicaid S [id number] S [id number] Managed Care - Community Plan [facility] P [id number] S [id number] Medicaid S [id number] S [id number] [facility] I [id number] Self [id number] [facility] I [id number] Self [id number] [facility] I [id number] Self [id number] Managed Care - [facility] Community Plan P [id number] S [id number] Medicaid S [id number] S [id number] Managed Care - C Community Plan P [id number] S [id number] [employer] COMM[employer]ITY [employer]AN MCDHMO [id number] SP [id number] [facility] MAN CRE [id number] SP [id number] [facility] [id number] SP [id number] SELF PAY [facility] OFFICE OF MENTAL HE[facility] UNAVAILABLE S UNAVAILABLE MEDICAID [id number] S [id number] [facility] OFFICE OF MENTAL HEALTH [id number] S [id number] [employer] COMMUNITY PLAN MCDHMO [id number] SP [id number] [facility] OFFICE [facility]ENTAL HEALTH [id number] S [id number] [facility] [id number] SP [id number] SELF PAY ONLY [id number] SP [id number] [facility] [id number] SP [id number] SELF PAY SP [facility]) O [id number] S [id number] [facility] [id number] SP [id number] Self Pay P UNAVAILABLE S UNAVAILA BLE [facility]) O [id number] S [id number] [facility] [id number] SP [id number] MEDICAID [id number] SP [id number] [employer] COMMUNITY PLAN MCDHMO [id number] SP [id number] MEDICAID [id number] SP [id number] Problems, Conditions, and Diagnoses Code Display Name Description Problem Type Effective Dates Data Source(s) F11.10 Opioid abuse, uncomplicated F11.10 - Opioid abus e, uncomplicated Diagnosis 02/27/2021 08:12:00 PM [facility] 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, uncomplicated F16.10 - Hallucinogen abuse, uncomplicated Diagnosis 02/27/2021 08:12:00 PM EDT [facility] F25.9 Schizoaffective disorder, unspecified F2 5.9 - Schizoaffective disorder, unspecified Diagnosis 02/27/2021 08:12:00 PM EDT [facility] Z13.9 Encounter for screening, unspecified Z13 .9 - Encounter for screening, unspecified Diagnosis 02/27/2021 08:12:00 PM EDT [facility] schizophrenia, hallucinations, substance abuse schizophrenia, hallucinations, substance abuse Diagnosis 09/22/2020 02:27:00 PM [facility] F15.20 Other stimulant dependence, uncomplicate d Stimulant Use Disorder, Moderate: Amphetamine-type substance Condition 07/29/2021 12:00:00 AM EDT [facility] ([facility]) F10.20 Alcohol dependence, uncomplicated Alcohol Use Disorder , Severe Condition 07/29/2021 12:00:00 AM EDT [facility] ([facility]) F17.200 Nicotine dependence, unspecified, uncomp licated Tobacco Use Disorder, Moderate Condition 07/29/2021 12:00:00 AM EDT [facility] ([facility]) F12.20 Cannabis dependence, uncomplicated Cannabis Use Disorder, Moderate Condition 07/29/2021 12:00:00 AM EDT [facility] ([facility]) F20.9 Schizophrenia, unspecified Schizophrenia Condition 07/29/2021 12:00:00 AM EDT [facility] ([facility]) Surgeries/Procedures Procedure Description Date Indications Data Source(s) Comprehensive medication services, per 15 minutes 07/29/2021 12:00:00 AM EDT - 07/29/2021 12:00:00 AM EDT [facility] ([facility]) Comprehensive medication services, per 15 minutes 07/29/2021 12:00:00 AM EDT [facility] ([facility]) Comprehensive medication services, per 15 minutes 06/24/2021 12:00:00 AM EDT - 06/24/2021 12:00:00 AM EDT [facility] ([facility]) Comprehensive medication services, per 15 minutes 06/24/2021 12:00:00 AM EDT [facility] ([facility]) THERAPEUTIC PROPHYLACTIC/DX INJECTION SUBQ/IM 05/27/2021 12:00:00 AM EDT - 05/27/2021 12:00:00 AM EDT [facility] ([facility]) THERAPEUTIC PROPHYLACTIC/DX INJECTION SUBQ/IM 05/27/20 12:00:00 AM EDT [facility] ([facility]) Brief Individual Psychotherapy - 30 min 05/13/2021 12:00:00 AM EDT - 05/13/2021 12:00:00 AM EDT [facility] ([facility]) Brief Individual Psychotherapy - 30 min 05/13/2021 12: 00:00 AM EDT [facility] ([facility]) Comprehensive medication services, per 15 minutes 04/04/2021 12:00:00 AM EDT - 04/04/2021 12:00:00 AM EDT [facility] ([facility]) Comprehensive medication services, per 15 minutes 04/03/2021 12:00:00 AM EDT [facility] ([facility]) OFFICE OUTPATIENT VISIT 15 MINUTES 04/03 12:00:00 AM EDT - 04/03/2021 12:00:00 AM EDT [facility] ([facility]) Psychotherapy ADD ON - 30 Minutes 04/03/2021 12:00:00 AM EDT [facility] ([facility]) OFFICE OUTPATIENT VISIT 15 MINUTES 04/03/2021 12:00:00 AM EDT [facility] ([facility]) OFFICE OUTPATIENT VISIT 15 MINUTES 03/27 12:00:00 AM EDT - 03/27/2021 12:00:00 AM EDT [facility] ([facility]) OFFICE OUTPATIENT VISIT 15 MINUTES 03/27/2021 12:00:00 AM EDT [facility] ([facility]) OFFICE OUTPATIENT VISIT 15 MINUTES 03/19 12:00:00 AM EDT - 03/19/2021 12:00:00 AM EDT [facility] ([facility]) OFFICE OUTPATIENT VISIT 15 MINUTES 03/19/2021 12:00:00 AM EDT [facility] ([facility]) OFFICE OUTPATIENT VISIT 15 MINUTES 02/12 12:00:00 AM EDT - 02/12/2021 12:00:00 AM EDT [facility] ([facility]) OFFICE OUTPATIENT VISIT 15 MINUTES 02/12/2021 12:00:00 AM EDT [facility] ([facility]) OFFICE OUTPATIENT VISIT 15 MINUTES 02/07 12:00:00 AM EDT - 02/07/2021 12:00:00 AM EDT [facility] ([facility]) OFFICE OUTPATIENT VISIT 15 MINUTES 02/07/2021 12:00:00 AM EDT [facility] ([facility]) Brief Individual Psychotherapy - 30 min 02/01/2021 12:00:00 AM EDT - 02/01/2021 12:00:00 AM EDT [facility] ([facility]) Brief Individual Psychotherapy - 30 min 02/01/2021 12: 00:00 AM EDT [facility] ([facility]) OFFICE OUTPATIENT VISIT 15 MINUTES 01/23 12:00:00 AM EDT - 01/23/2021 12:00:00 AM EDT [facility] ([facility]) OFFICE OUTPATIENT VISIT 15 MINUTES 01/23/2021 12:00:00 AM EDT [facility] ([facility]) THERAPEUTIC PROPHYLACTIC/DX INJECTION SUBQ/IM 01/23/2021 12:00:00 AM EDT - 01/23/2021 12:00:00 AM EDT [facility] ([facility]) THERAPEUTIC PROPHYLACTIC/DX INJECTION SUBQ/IM 01/24/20 12:00:00 AM EDT [facility] ([facility]) Comprehensive medication services, per 15 minutes 01/18/2021 12:00:00 AM EDT - 01/18/2021 12:00:00 AM EDT [facility] ([facility]) Comprehensive medication services, per 15 minutes 01/18/2021 12:00:00 AM EDT [facility] ([facility]) OFFICE OUTPATIENT VISIT 15 MINUTES 01/17 12:00:00 AM EDT - 01/17/2021 12:00:00 AM EDT [facility] ([facility]) OFFICE OUTPATIENT VISIT 15 MINUTES 01/17/2021 12:00:00 AM EDT [facility] ([facility]) MHC Telemed E/M Lvl 3--Est pt 01/01/2021 12:00:00 AM EST - 01/01/2021 12:00:00 AM EST [facility] ([facility]) MHC Telemed E/M Lvl 3--Est pt 01/01/2021 12:00:[address] [facility] ([facility]) THERAPEUTIC PROPHYLACTIC/DX INJECTION SUBQ/IM 12/28/2020 12:00:00 AM EST - 12/28/2020 12:00:00 AM EST [facility] ([facility]) THERAPEUTIC PROPHYLACTIC/DX INJECTION SUBQ/IM 12/28/19 12:00:00 AM EST [facility] ([facility]) MHC Telemed E/M Lvl 3--Est pt 12/20/2020 12:00:00 AM EST - 12/20/2020 12:00:00 AM EST [facility] ([facility]) MHC Telemed E/M Lvl 3--Est pt 12/20/2020 12:00:[address] [facility] ([facility]) MHC Telemed E/M Lvl 3--Est pt 12/06/2020 12:00:00 AM EST - 12/06/2020 12:00:00 AM EST [facility] ([facility]) MHC Telemed E/M Lvl 3--Est pt 12/06/2020 12:00:[address] [facility] ([facility]) Comprehensive medication services, per 15 minutes 11/15/2020 12:00:00 AM EST - 11/15/2020 12:00:00 AM EST [facility] ([facility]) Comprehensive medication services, per 15 minutes 11/15/2020 12:00:00 AM EST [facility] ([facility]) OFFICE OUTPATIENT VISIT 15 MINUTES 11/15 12:00:00 AM EST - 11/15/2020 12:00:00 AM EST [facility] ([facility]) OFFICE OUTPATIENT VISIT 15 MINUTES 11/15/2020 12:00:00 AM EST [facility] ([facility]) THERAPEUTIC PROPHYLACTIC/DX INJECTION SUBQ/IM 10/18/2020 12:00:00 AM EST - 10/18/2020 12:00:00 AM EST [facility] ([facility]) THERAPEUTIC PROPHYLACTIC/DX INJECTION SUBQ/IM 10/18/20 20 12:00:00 AM EST [facility] ([facility]) THERAPEUTIC PROPHYLACTIC/DX INJECTION SUBQ/IM 10/15/2020 12:00:00 AM EST - 10/15/2020 12:00:00 AM EST [facility] ([facility]) THERAPEUTIC PROPHYLACTIC/DX INJECTION SUBQ/IM 10/15/20 20 12:00:00 AM EST [facility] ([facility]) THERAPEUTIC PROPHYLACTIC/DX INJECTION SUBQ/IM 10/04/2020 12:00:00 AM EST - 10/04/2020 12:00:00 AM EST [facility] ([facility]) THERAPEUTIC PROPHYLACTIC/DX INJECTION SUBQ/IM 10/04/20 20 12:00:00 AM EST [facility] ([facility]) OFFICE OUTPATIENT VISIT 15 MINUTES 10/04 12:00:00 AM EST - 10/04/2020 12:00:00 AM EST [facility] ([facility]) OFFICE OUTPATIENT VISIT 15 MINUTES 10/04/2020 12:00:00 AM EST [facility] ([facility]) OFFICE OUTPATIENT VISIT 15 MINUTES 09/12 12:00:00 AM EST - 09/12/2020 12:00:00 AM EST [facility] ([facility]) OFFICE OUTPATIENT VISIT 15 MINUTES 09/12/2020 12:00:00 AM EST [facility] ([facility]) THERAPEUTIC PROPHYLACTIC/DX INJECTION SUBQ/IM 09/12/2020 12:00:00 AM EST - 09/12/2020 12:00:00 AM EST [facility] ([facility]) THERAPEUTIC PROPHYLACTIC/DX INJECTION SUBQ/IM 09/12/20 20 12:00:00 AM EST [facility] ([facility]) OFFICE OUTPATIENT VISIT 15 MINUTES 08/10 12:00:00 AM EDT - 08/10/2020 12:00:00 AM EDT [facility] ([facility]) OFFICE OUTPATIENT VISIT 15 MINUTES 08/10/2020 12:00:00 AM EDT [facility] ([facility]) THERAPEUTIC PROPHYLACTIC/DX INJECTION SUBQ/IM 07/13/2020 12:00:00 AM EDT - 07/13/2020 12:00:00 AM EDT [facility] ([facility]) THERAPEUTIC PROPHYLACTIC/DX INJECTION SUBQ/IM 07/13/20 20 12:00:00 AM EDT [facility] ([facility]) Results ID Date Data Source [id number] 07/19/2021 10:40:00 AM EDT [facility] Name Value Range Interpretation Code Description Data Michelle rce(s) Supporting Document(s) SARS coronavirus 2 RNA [Presence] in Res piratory specimen by [facility]MI with probe detection NEGATIVE [facility] This lab was ordered by [facility] a nd reported by [facility]. ID Date Data Source [id number] 07/19/2021 09:50:00 AM EDT [facility] Name Value Range Interpretation Code Description Data Michelle rce(s) Supporting Document(s) SARS COVID ANTIGEN NEGATIVE [facility] This lab was ordered by [facility] a nd reported by [facility]. ID Date Data Source [id number] 06/04/2021 08:17:00 PM EDT [facility] Name Value Range Interpretation Code Description Data Michelle rce(s) Supporting Document(s) SARS coronavirus 2 RNA [Presence] in Res piratory specimen by OMI with probe detection NEGATIVE [facility] This lab was ordered by [facility] a nd reported by [facility]. ID Date Data Source [id number] 05/01/2021 01:57:00 PM EDT [facility] Name Value Range Interpretation Code Description Data Michelle rce(s) Supporting Document(s) SARS coronavirus 2 RNA [Presence] in Res piratory specimen by OMI with probe detection NEGATIVE [facility] This lab was ordered by [facility] a nd reported by [facility]. ID Date Data Source [id number] 04/19/2021 06:29:00 AM EDT [facility] Name Value Range Interpretation Code Description Data Michelle rce(s) Supporting Document(s) SARS coronavirus 2 RNA [Presence] in Res piratory specimen by OMI with probe detection NEGATIVE [facility] This lab was ordered by [facility] a nd reported by [facility]. ID Date Data Source [id number] 04/17/2021 05:50:00 PM EDT [facility] Name Value Range Interpretation Code Description Data Michelle rce(s) Supporting Document(s) SARS-CoV-2 (COVID-19) RNA [Presence] in Respiratory specimen by [facility]MI with probe detection Not Detected [facility] This lab was ordered by [facility] and reported by [employer]. ID Date Data Source [id number] 02/28/2021 04:53:00 [place] [address] HEALTH INFORMATION MANAGEMENT History and Physical Report : [id number] Signed Patient: Gabo Parra Acct:[id number] Unit: Low [id number] : 1980 Loc: [facility] Room/Bed: 820-B Age/Sex: 40 / M [...] charges for this visit?: Yes Inpt Consult [id number] Cons Level 1: Yes Signed By:aRmbo Summers <<Signature on File>> Signed Date/Time: 02/28/211657 Co-Signer: Leonel Hubbard MD Co-Signed Date/Time: 02/28/21 8031 Initializing User: Rambo Summers NP 02/28/211652 52 52 Name Value Range Interpretation Code Description Data Michelle rce(s) Supporting Document(s) ID Date Data Source [id number] 02/28/2021 10:45:00 AM EDT [facility] [address] [place] [address] HEALTH INFORMATION MANAGEMENT [facility] Psychosocial Summary : [id number] Signed Patient: Gabo Parra Acct:[id number] Unit: Low [id number] : 1980 Loc: IN Room/Bed: 820-B Age/Sex: 40 / M ADM Date: 02/27/21 cc: General/History - Presenting Problem Presenting Problem: Social Summary/Discharge plan Presenting Problem Gabo is a40 yo AAM, extensive psych hx, also problems with substance abuse admitted on a transfer from [facility] ER brought in there by his CW as pt was feeling depressed, suicidal, also hallucinating and after abusing drugs History. tates was partially complaint with meds. Not able to name his psychiatrist in [place], not able to name the therapist. Gives h/o 5 to 6 inpt psych txs, last one few months ago, "I can't remember the place, they send me from [facility]. " Also, h'o inpt psych tx at [facility]. H/o self harm time, tried to [...] Person?: No Are you part of any alevism/spirtual community?: Yes (Roman Catholic ) - Current Living/Relationship History Current Living Arrangement: House Who Do You Live With?: Mother. OK to Return Home: Yes Weapons in household: No Currently in a Relationship?: No Ever Been ?: No Any Children?: 2 - Family History Where Were You Born/Raised?: [place] Who Was in Home?: Mother, Father How [...] Reducing Risk: Complies with Tx/Meds, Future Oriented, Tenriism Beliefs Mental Status Treatment - Mental Status [...] rce(s) Supporting Document(s) ID Date Data Source [id number] 02/27/2021 04:28:00 PM EDT [facility] Name Value Range Interpretation Code Description Data Michelle rce(s) Supporting Document(s) SARS coronavirus 2 RNA [Presence] in Res piratory specimen by OMI with probe detection NEGATIVE [facility] This lab was ordered by [facility] a nd reported by [facility]. ID Date Data Source [id number] 01/23/2021 01:03:00 AM EDT [facility] Name Value Range Interpretation Code Description Data Michelle rce(s) Supporting Document(s) SARS coronavirus 2 RNA [Presence] in Res piratory specimen by [facility]MI with probe detection NEGATIVE [facility] This lab was ordered by [facility] a nd reported by [facility]. ID Date Data Source [id number] 10/17/2020 12:19:00 AM EST [facility] Name Value Range Interpretation Code Description Data Michelle rce(s) Supporting Document(s) SARS coronavirus 2 RNA [Presence] in Res piratory specimen by [facility] with probe detection [facility] This lab was ordered by [facility] a nd reported by [facility]. Procedure Social History Code Duration Value Status Description Data Source(s ) Smoking 07/29/2021 12:00:00 AM EDT Unknown if ever smoked comp leted [facility] Smoking 06/24/2021 12:00:00 AM EDT Unknown if ever smoked comp leted Unknown if ever smoked [facility] ([facility]) Smoking 05/27/2021 12:00:00 AM EDT Unknown if ever smoked comp leted Unknown if ever smoked [facility] ([facility]) Smoking 05/13/2021 12:00:00 AM EDT Unknown if ever smoked comp leted Unknown if ever smoked [facility] ([facility]) Smoking 04/04/2021 12:00:00 AM EDT Unknown if ever smoked comp leted Unknown if ever smoked [facility] ([facility]) Smoking 04/03/2021 12:00:00 AM EDT Unknown if ever smoked comp leted Unknown if ever smoked [facility] ([facility]) Smoking 03/27/2021 12:00:00 AM EDT Unknown if ever smoked comp leted Unknown if ever smoked [facility] ([facility]) Smoking 03/19/2021 12:00:00 AM EDT Unknown if ever smoked comp leted Unknown if ever smoked [facility] ([facility]) Smoking 02/12/2021 12:00:00 AM EDT Unknown if ever smoked comp leted Unknown if ever smoked [facility] ([facility]) Smoking 02/07/2021 12:00:00 AM EDT Unknown if ever smoked comp leted Unknown if ever smoked [facility] ([facility]) Smoking 02/01/2021 12:00:00 AM EDT Unknown if ever smoked comp leted Unknown if ever smoked [facility] ([facility]) Smoking 01/23/2021 12:00:00 AM EDT Unknown if ever smoked comp leted Unknown if ever smoked [facility] ([facility]) Smoking 01/18/2021 12:00:00 AM EDT Unknown if ever smoked comp leted Unknown if ever smoked [facility] ([facility]) Smoking 01/17/2021 12:00:00 AM EDT Unknown if ever smoked comp leted Unknown if ever smoked [facility] ([facility]) Smoking 01/01/2021 12:00:00 AM EST Unknown if ever smoked comp leted Unknown if ever smoked [facility] ([facility]) Smoking 12/28/2020 12:00:00 AM EST Unknown if ever smoked comp leted Unknown if ever smoked [facility] ([facility]) Smoking 12/20/2020 12:00:00 AM EST Unknown if ever smoked comp leted Unknown if ever smoked [facility] ([facility]) Smoking 12/06/2020 12:00:00 AM EST Unknown if ever smoked comp leted Unknown if ever smoked [facility] ([facility]) Smoking 11/15/2020 12:00:00 AM EST Unknown if ever smoked comp leted Unknown if ever smoked [facility] ([facility]) Smoking 10/18/2020 12:00:00 AM EST Unknown if ever smoked comp leted Unknown if ever smoked [facility] ([facility]) Smoking 10/15/2020 12:00:00 AM EST Unknown if ever smoked comp leted Unknown if ever smoked [facility] ([facility]) Smoking 10/04/2020 12:00:00 AM EST Unknown if ever smoked comp leted Unknown if ever smoked [facility] ([facility]) Smoking 09/12/2020 12:00:00 AM EST Unknown if ever smoked comp leted Unknown if ever smoked [facility] ([facility]) Smoking 08/10/2020 12:00:00 AM EDT Unknown if ever smoked comp leted Unknown if ever smoked [facility] ([facility]) Smoking 07/13/2020 12:00:00 AM EDT Unknown if ever smoked comp leted Unknown if ever smoked [facility] ([facility]) Vital Signs ID Date Data Source UNK Name Value Range Interpretation Code Description Data Source(s) Body height 0.00 in Normal (applies to non-numeric resu lts) 0.00 in [facility] ([facility]) Body weight Measured 0.00 lbs Normal (applies to n on-numeric results) 0.00 lbs [facility] ([facility]) Body mass index (BMI) [Ratio] 0.00 kg/m2 No rmal (applies to non-numeric results) 0.00 kg/m2 [facility] ([facility]) Systolic blood pressure 0 mm[Hg] Normal (applies t o non-numeric results) 0 mm[Hg] [facility] ([facility]) Diastolic blood pressure 0 mm[Hg] Normal (applies to non-numeric results) 0 mm[Hg] [facility] ([facility]) Body height 0.00 in Normal (applies to non-numeric resu lts) 0.00 in [facility] ([facility]) Body weight Measured 0.00 lbs Normal (applies to n on-numeric results) 0.00 lbs [facility] ([facility]) Body mass index (BMI) [Ratio] 0.00 kg/m2 No rmal (applies to non-numeric results) 0.00 kg/m2 [facility] ([facility]) Systolic blood pressure 0 mm[Hg] Normal (applies t o non-numeric results) 0 mm[Hg] [facility] ([facility]) Diastolic blood pressure 0 mm[Hg] Normal (applies to non-numeric results) 0 mm[Hg] [facility] ([facility]) Body height 0.00 in Normal (applies to non-numeric resu lts) [facility] Body weight Measured 0.00 lbs Normal (applies to n on-numeric results) 0.00 lbs [facility] ([facility]) Body mass index (BMI) [Ratio] 0.00 kg/m2 No rmal (applies to non-numeric results) 0.00 kg/m2 [facility] ([facility]) Systolic blood pressure 0 mm[Hg] Normal (applies t o non-numeric results) 0 mm[Hg] [facility] ([facility]) Diastolic blood pressure 0 mm[Hg] Normal (applies to non-numeric results) 0 mm[Hg] [facility] ([facility]) Body height 0.00 in Normal (applies to non-numeric resu lts) 0.00 in [facility] ([facility]) Body weight Measured 0.00 lbs Normal (applies to n on-numeric results) 0.00 lbs [facility] ([facility]) Body mass index (BMI) [Ratio] 0.00 kg/m2 No rmal (applies to non-numeric results) 0.00 kg/m2 [facility] ([facility]) Systolic blood pressure 0 mm[Hg] Normal (applies t o non-numeric results) 0 mm[Hg] [facility] ([facility]) Diastolic blood pressure 0 mm[Hg] Normal (applies to non-numeric results) 0 mm[Hg] [facility] ([facility]) ID Date Data Source [id number] 09/22/2020 02:27:59 PM [facility] Name Value Range Interpretation Code Description Data Source(s) TRANSFER FROM [facility]
[2021-08-26 05:23] LABS: HEMATOCRIT 43.2 % (42.0-52.0); MEAN CORPUSCULAR HEMOGLOBIN 29.7 pg (27.0-33.0); MEAN CORPUSCULAR HGB CONC 32.4 g/dl (32.0-36.5); MEAN CORPUSCULAR VOLUME 91.5 fl (80.0-96.0); PLATELET COUNT, AUTOMATED 268 10^3/uL (150-450); RED BLOOD COUNT 4.72 10^6/uL (4.30-6.10)
[2021-08-26 05:57] LABS: ACETAMINOPHEN LEVEL < 2.0 UG/ML (10.0-30.0); ALBUMIN 3.6 GM/DL (3.2-5.2); ALT/SGPT 130 U/L (12-78); BILIRUBIN,DIRECT 0.2 MG/DL (0.0-0.2); BILIRUBIN,TOTAL 0.7 MG/DL (0.2-1.0); BLOOD UREA NITROGEN 10 MG/DL (7-18); CALCIUM LEVEL 8.8 MG/DL (8.5-10.1); CARBON DIOXIDE LEVEL 28 MEQ/L (21-32); CHLORIDE LEVEL 105 MEQ/L (98-107); CREATININE FOR GFR 0.82 MG/DL (0.70-1.30); ETHYL ALCOHOL (ETHANOL) < 0.003 % (0.000-0.010); GLOMERULAR FILTRATION RATE > 60.0 (>60); GLUCOSE, FASTING 93 MG/DL (70-100); POTASSIUM SERUM 3.5 MEQ/L (3.5-5.1); SALICYLATE LEVEL < 1.7 MG/DL (5.0-30.0); SODIUM LEVEL 138 MEQ/L (136-145); TOTAL PROTEIN 7.9 GM/DL (6.4-8.2)
[2021-08-26 06:02] LABS: AMPHETAMINES LEVEL URINE POSITIVE (NEGATIVE); BARBITURATES URINE NEGATIVE (NEGATIVE); BENZODIAZEPINES URINE NEGATIVE (NEGATIVE); CANNABINOIDS URINE POSITIVE (NEGATIVE); COCAINE METABOLITE URINE NEGATIVE (NEGATIVE); METHADONE URINE NEGATIVE (NEGATIVE); OPIATES URINE NEGATIVE (NEGATIVE); PHENCYCLIDINE URINE NEGATIVE (NEGATIVE)
--- OUTSIDE RECORDS SUMMARY | 2021-08-26 08:39 | CCD ---
Author Author [facility] Organization [facility] Address Unknown Phone Unavailable Support Name Relationship Address Phone Hudson GUTIERREZ, Pasha Next Of Kin [address] [place] [address] Diamante Costa Next Of Kin [address] [place] [address] Dwain Joseph DO Next Of Kin [address] [place] [address] Cameron Bingham MD Next Of Kin [address] [place] [address] SELFGARY Next Of Kin [address] [place] [address] YONI JACK Next Of Kin [address] [place] [address] [place], [place] Next Of Kin [address] [place] [address] Monique Conklin MD Next Of Kin [address] [place] [phone] YONI CALHOUN Next Of Kin [address] [place] [address] Isabelle Manning Next Of Kin [address] [place] [address] Pat Gallo DO Next Of Kin [address] [place] [address] DISABLED Next Of Kin Unknown Unavailable Lavalette Self Next Of Kin [address] [place] [phone] SELF, JUNIOR Next Of Kin [address] [place] [address] UE Next Of Kin Unknown Unavailable SIMON WALL Next Of Kin [address] [place] [address] SELF, JUNIOR [address] [place] [address] Unavailable Care Team Providers Care It Infrastructure Specialist Name Role Phone Farden, M Rambo Unavailable [...] Unavailable Unavailable BILAL, JONNATHAN GUTIERREZ Unavailable Unavailable BILALJONNATHAN MD Unavailable Unavailable Gina Nash Unavailable AMILCAR, H ANSELMO STATISTICAL ENGINEER Unavailable Unavailable AMILCAR, H ANSELMO STATISTICAL ENGINEER Unavailable Unavailable AMILCAR, H ANSELMO STATISTICAL ENGINEER Unavailable Unavailable AMILCAR, H ANSELMO STATISTICAL ENGINEER Unavailable Unavailable AMILCAR, H ANSELMO STATISTICAL ENGINEER Unavailable Unavailable AMILCAR, H ANSELMO STATISTICAL ENGINEER Unavailable Unavailable AMILCAR, H ANSELMO STATISTICAL ENGINEER Unavailable Unavailable AMILCAR, H ANSELMO STATISTICAL ENGINEER Unavailable Unavailable AMILCAR, H ANSELMO STATISTICAL ENGINEER Unavailable Unavailable Jossie Marcelino Unavailable Rotella, Jossy [...] Unavailable Unavailable Solomon Treviño MD Unavailable Unavailable Solmoon Treviño MD Unavailable Unavailable Solomon Treviño MD [...] is protected by Article 27-F of the [facility] Public Health law. If you continue you may have access to information: Regarding HIV / AIDS; Provided by facilities licensed or operated by the [facility] Office of Mental Health; or Provided by the [facility] Office for People With Developmental Disabilities. If such information is present, then the following [facility] mandated warning applies: This information [...] law may result in a fine or group home sentence or both. A general authorization for the release of medical or other information is NOT sufficient authorization for further disc losure. Allergies and Adverse Reactions Type Description Substance Reaction Status Data Source(s ) Drug allergy No Known Allergies No Known Allergies [facility] to adverse reactions NO KNOWN ALLERGIES NO KNOWN ALLERGIES [facility] Encounters Encounter Providers Location Date Indications Data Source(s ) Injectable Medication Administration w/ Monitoring & E ducation [facility]00 AM EDT - 07/29/2021 02:30:00 AM EDT [facility] ([facility]) Attender: Pam Isbellpo 07/29/2021 12:00:00 AM EDT [facility] ([facility]) Injectable Medication Administration w/ Monitoring & E ducation Attender: Thalia LondonAlbaAlphonso [facility] 06/24/2021 10:45:00 AM EDT - 06/24/2021 10:45:00 AM EDT [facility] ([facility]) Attender: Thalia Carreno 06/24/2021 12:00:00 AM EDT [facility] ([facility]) Injectable Psychotropic Medication Administration (Inj ection Only) Attender: Thalia Carreno [facility] 05/27/2021 08:15:00 AM EDT - 05/27/2021 08:15:00 AM EDT [facility] ([facility]) Attender: Thalia Carreno 05/27/2021 12:00:00 AM EDT [facility] ([facility]) Brief Individual Psychotherapy - 30 min Attender: Gina yun [facility] 05/13/2021 08:30:00 AM EDT - 05/13/2021 08:30:00 AM EDT [facility] ([facility]) Attender: Gina Nash 05/13/2021 12:00:00 AM EDT [facility] ([facility]) Attender: Pam Isbellalyson 04/04/2021 12:00:00 AM EDT [facility] ([facility]) Injectable Medication Administration w/ Monitoring & E ducation Attender: Pam Sukhipo [facility] Maria Alejandra 04/03/2021 09:00:00 AM EDT - 04/03/2021 09:00:00 AM EDT [facility] ([facility]) Outpatient Attender: ANSELMO APONTE NP [facility] Mike garcía 04/03/2021 08:30:00 AM EDT - 04/03/2021 08:30:00 AM EDT [facility] ([facility]) Attender: ANSELMO APONTE NP 04/03/2021 12:00:00 AM EDT [facility] ([facility]) Outpatient Attender: ANSELMO APONTE NP [facility] Mike garcía 03/27/2021 11:00:00 AM EDT - 03/27/2021 11:00:00 AM EDT [facility] ([facility]) Attender: ANSELMO APONTE NP 03/27/2021 12:00:00 AM EDT [facility] ([facility]) Outpatient Attender: ANSELMO APONTE NP [facility] Mike garcía 03/19/2021 03:00:00 AM EDT - 03/19/2021 03:00:00 AM EDT [facility] ([facility]) Attender: ANSELMO APONTE NP 03/19/2021 12:00:00 AM EDT [facility] ([facility]) Inpatient Attender: JONNATHAN TRACY MDAdmitter: JONNATHAN TRACY MD 02/27/2021 08:12:00 PM EDT - 03/08/2021 03:27:00 PM EDT Suicidal Ideation / Homicidal Ideation [facility] Suicidal Ideation / Homicidal Ideation Patient discharged. Outpatient Attender: JONNATHAN TRACY MDAdmi tter: JONNATHAN TRACY MDConsultant: JONNATHAN TRACY MD 02/27/2021 08:12:00 PM EDT Suicidal Ideation / [facility] Su[facility] Ide[facility] / Homicidal Ideation Outpatient Attender: JONNATHAN TRACY MDAdmi tter: JONNATHAN TRACY MDConsultant: JONNATHAN TRACY MD 02/27/2021 08:12:00 PM EDT Suicidal Ideation / [facility]idal [facility]ation [facility] Suicidal Ideation / Homicidal Ideation Outpatient Attender: Castro ColonAdmitter : JONNATHAN TRACY MDConsultant: JONNATHAN TRACY MD 02/27/2021 08:12:00 PM EDT Suicidal Ide[facility] Homicidal Ideation Outpatient Attender: JONNATHAN TRACY MDAdmi tter: JONNATHAN TRACY MDConsultant: JONNATHAN TRACY MD 02/27/2021 08:12:00 PM EDT Suicidal Ideation [facility] Su[facility] / Homicidal Ideation Outpatient Attender: JONNATHAN TRACY MDAdmi tter: JONNATHAN TRACY MDConsultant: JONNATHAN TRACY MD 02/27/2021 08:12:00 PM EDT Suicidal Ideation / [facility] omicidal [facility]ation [facility] Suicidal Ideation / Homicidal Ideation Outpatient Attender: JONNATHAN TRACY MDAdmi tter: JONNATHAN TRACY MDConsultant: JONNATHAN TRACY MD 02/27/2021 08:12:00 PM EDT Suicidal Ideation / H omicidal Ideation [facility] Suicidal Ideation / Homicidal Ideation Outpatient Attender: Castro ColonAdmitter : JONNATHAN TRACY MDConsultant: JONNATHAN TRACY MD 02/27/2021 08:12:00 PM EDT Suicidal Ideation / [facility]micidal [facility]ation [facility] Suicidal Ideation / Homicidal Ideation Outpatient Attender: Castro ColonAdmitter : JONNATHAN TRACY MDConsultant: JONNATHAN TRACY MD 02/27/2021 08:12:00 PM EDT Suicidal Ideation / [facility] omicidal Ideation [facility] Suicidal Ideation / Homicidal Ideation Outpatient Attender: AHMAD BILAL MDAdmi tter: JONNATHAN TRACY MDConsultant: JONNATHAN TRACY MD 02/27/2021 08:12:00 PM EDT Suicidal Ideation / H omicidal Ideation [facility] Suicidal Ideation / Homicidal Ideation Outpatient Attender: Rambo Pedroza mitter: JONNATHAN TRACY MDConsultant: JONNATHAN TRACY MD 02/27/2021 08:12:00 PM EDT Suicidal Ideation / H omicidal Ideation [facility] Suicidal Ideation / Homicidal Ideation Outpatient Attender: ANSELMO APONTE NP [facility] Mike garcía 02/12/2021 10:30:00 AM EDT - 02/12/2021 10:30:00 AM EDT [facility] ([facility]) Attender: ANSELMO APONTE NP 02/12/2021 12:00:00 AM EDT [facility] ([facility]) Outpatient Attender: ANSELMO APONTE NP [facility] raquel 02/07/2021 11:30:00 AM EDT - 02/07/2021 11:30:00 AM EDT [facility] ([facility]) Attender: ANSELMO APONTE NP 02/07/2021 12:00:00 AM EDT [facility] ([facility]) Brief Individual Psychotherapy - 30 min Attender: Gina yun [facility] 02/01/2021 02:00:00 AM EDT - 02/01/2021 02:00:00 AM EDT [facility] ([facility]) Attender: Gina Nash 02/01/2021 12:00:00 AM EDT [facility] ([facility]) Injectable Psychotropic Medication Administration (Inj ection Only) Attender: Thalia Carreno [facility] 01/23/2021 10:00:00 AM EDT - 01/23/2021 10:00:00 AM EDT [facility] ([facility]) Outpatient Attender: ANSELMO APONTE NP [facility] Mike raquel 01/23/2021 09:15:00 AM EDT - 01/23/2021 09:15:00 AM EDT [facility] ([facility]) Attender: ANSELMO APONTE NP 01/23/2021 12:00:00 AM EDT [facility] ([facility]) Attender: Thalia Carreno 01/23/2021 12:00:00 AM EDT [facility] ([facility]) Injectable Medication Administration w/ Monitoring & E ducation Attender: Pam Juarez [facility] 01/18/2021 11:00:00 AM EDT - 01/18/2021 11:00:00 AM EDT [facility] ([facility]) Attender: Pam Juarez 01/18/2021 12:00:00 AM EDT [facility] ([facility]) Outpatient Attender: ANSELMO APONTE NP [facility] 01/17/2021 09:00:00 AM EDT - 01/17/2021 09:00:00 AM EDT [facility] ([facility]) Attender: ANSELMO APONTE NP 01/17/2021 12:00:00 AM EDT [facility] ([facility]) Outpatient Attender: ANSELMO APONTE NP [facility] 01/01/2021 02:30:00 AM EST - 01/01/2021 02:30:00 AM EST [facility] ([facility]) Attender: ANSELMO APONTE NP 01/01/2021 12:00:00 AM EST [facility] ([facility]) Injectable Psychotropic Medication Administration (Inj ection Only) Attender: Jossie Marcelino [facility] 12/28/2020 10:30:00 AM EST - 12/28/2020 10:30:00 AM EST [facility] ([facility]) Attender: Jossie Marcelino 12/28/2020 12:00:00 AM EST [facility] ([facility]) Outpatient Attender: Victorino Escobar MD [facility] 12/20/2020 09:30:00 AM EST - 12/20/2020 09:30:00 AM EST [facility] ([facility]) Attender: Victorino Escobar MD 12/20/2020 12:00:00 AM EST [facility] ([facility]) Outpatient Attender: Victorino Escobar MD [facility] Mike garcía 12/06/2020 12:30:00 PM EST - 12/06/2020 12:30:00 PM EST [facility] ([facility]) Attender: Victorino Escobar MD 12/06/2020 12:00:00 AM EST [facility] ([facility]) Injectable Medication Administration w/ Monitoring & E ducation Attender: ORGANIZATION NPI ALIASES [facility] 11/15/2020 11:15: 00 AM EST - 11/15/2020 11:15:00 AM EST [facility] ([facility]) Outpatient Attender: Victorino Escobar MD [facility] Mike garcía 11/15/2020 11:00:00 AM EST - 11/15/2020 11:00:00 AM EST [facility] ([facility]) Attender: ORGANIZATION NPI ALIASES * 11/15/2020 12:00:00 AM EST [facility] ([facility]) Attender: Victorino Escobar MD 11/15/2020 12:00:00 AM EST [facility] ([facility]) Injectable Psychotropic Medication Administration (Inj ection Only) Attender: Jossy Mejia [facility] 10/18/2020 10:30:00 AM EST - 10/18/2020 10:30:00 AM EST [facility] ([facility]) Attender: Jossy Mejia 10/18/2020 12:00:00 AM EST [facility] ([facility]) Injectable Psychotropic Medication Administration (Inj ection Only) Attender: Jossy Mejia [facility] 10/15/2020 11:00:00 AM EST - 10/15/2020 11:00:00 AM EST [facility] ([facility]) Attender: Jossy Mejia 10/15/2020 12:00:00 AM EST [facility] ([facility]) Injectable Psychotropic Medication Administration (Inj ection Only) Attender: Jossy Rotteena [facility] 10/04/2020 10:30:00 AM EST - 10/04/2020 10:30:00 AM EST [facility] ([facility]) Outpatient Attender: KALLI MOLINAURSZULA [facility] 10/04/2020 10:00:00 AM EST - 10/04/2020 10:00:00 AM EST [facility] ([facility]) Attender: Jossy Mejia 10/04/2020 12:00:00 AM EST [facility] ([facility]) Attender: KALLI MOLINAURSZULA 10/04/2020 12:00: 00 AM EST [facility] ([facility]) Outpatient Referrer: [facility] [place] 09/22/2020 0 2:27:00 PM EST schizophrenia, hallucinations, substance abuse [facility] schizophrenia, hallucinations, substance abuse Injectable Psychotropic Medication Administration (Inj ection Only) Attender: Jossy Jackteena [facility] 09/12/2020 09:30:00 AM EST - 09/12/2020 09:30:00 AM EST [facility] ([facility]) Outpatient Attender: KALLI MOLINAURSZULA [facility] 09/12/2020 09:00:00 AM EST - 09/12/2020 09:00:00 AM EST [facility] ([facility]) Attender: KALLI MOLINAURSZULA 09/12/2020 12:00: 00 AM EST [facility] ([facility]) Attender: Jossy Mejia 09/12/2020 12:00:00 AM EST [facility] ([facility]) Outpatient Attender: KALLI MOLINAURSZULA [facility] 08/10/2020 02:00:00 AM EDT - 08/10/2020 02:00:00 AM EDT [facility] ([facility]) Attender: KALLI MOLINAURSZULA 08/10/2020 12:00: 00 AM EDT [facility] ([facility]) Injectable Psychotropic Medication Administration (Inj ection Only) Attender: Jossy Santiagoteena [facility] 07/13/2020 02:00:00 AM EDT - 07/13/2020 02:00:00 AM EDT [facility] ([facility]) Attender: Jossy Mejia 07/13/2020 12:00:00 AM EDT [facility] ([facility]) Outpatient Attender: Pasha MOLINA 07/12/2020 02:46:50 PM EDT [facility] Functional Status Medications Medication Brand Name Start Date Product Form Dose Route Admi nistrative Instructions Pharmacy Instructions Status Indications Reaction Description Data Source(s) Prazosin 1 MG Oral Capsule prazosin 07/10/2021 12:00:00 AM EDT 1 mg by mouth completed <td ID="Medicat ionRxNorm_4">606445</td><td ID="MedicationMedication_4">prazosin</td><td ID="MedicationRoute_4">by mouth</td><td ID="MedicationRouteConcept_4">A17588</td><td ID="MedicationStartDate_4">07/10/2021</td><td ID="MedicationStopDate_4">08/09/2021</td><td ID="MedicationDosageFrequency_4">at bedtime</td><td ID="MedicationDuration_4">30</td><td ID="MedicationFormulaStrength_4">1 mg</td><td ID="MedicationDosageForm_4">capsule</td><td ID="MedicationDosageFormCode_4"></td><td ID="MedicationDosageDescription_4"></td><td ID="MedicationMedicationId_4">[id number]</td><td ID="MedicationAccount_4">[id number]</td><td ID="MedicationNpid_4">[id number]</td><td ID="MedicationAuthorFirstName_4">Anselmo</td><td ID="MedicationAuthorLastName_4">Amilcar</td><td ID="MedicationTaxonomyCode_4">[id number]</td><td ID="MedicationTaxonomyDesc_4">Nurse Practitioner</td><td ID="MedicationPhoneNumber_4">[phone]</td> [facility] ([facility]) olanzapine 5 MG Oral Tablet [Zyprexa] Zyprexa 05/23/2021 12:00:00 AM EDT 5 mg by mouth completed <td ID="Medica tionRxNorm_2">979983</td><td ID="MedicationMedication_2">Zyprexa</td><td ID="MedicationRoute_2">by mouth</td><td ID="MedicationRouteConcept_2">M21919</td><td ID="MedicationStartDate_2">05/23/2021</td><td ID="MedicationStopDate_2">08/09/2021</td><td ID="MedicationDosageFrequency_2">at bedtime</td><td ID="MedicationDuration_2">30</td><td ID="MedicationFormulaStrength_2">5 mg</td><td ID="MedicationDosageForm_2">tablet</td><td ID="MedicationDosageFormCode_2"></td><td ID="MedicationDosageDescription_2"></td><td ID="MedicationMedicationId_2">[id number]</td><td ID="MedicationAccount_2">[id number]</td><td ID="MedicationNpid_2">[id number]</td><td ID="MedicationAuthorFirstName_2">Anselmo</td><td ID="MedicationAuthorLastName_2">Amilcar</td><td ID="MedicationTaxonomyCode_2">[id number]</td><td ID="MedicationTaxonomyDesc_2">Nurse Practitioner</td><td ID="MedicationPhoneNumber_2">[phone]</td> [facility] ([facility]) benztropine mesylate 1 MG Oral Tablet benztropine 05/23/2021 12:00 :00 AM EDT 1 mg by mouth completed <td ID="Me dicationRxNorm_3">816321</td><td ID="MedicationMedication_3">benztropine</td><td ID="MedicationRoute_3">by mouth</td><td ID="MedicationRouteConcept_3">L85493</td><td ID="MedicationStartDate_3">05/23/2021</td><td ID="MedicationStopDate_3">08/09/2021</td><td ID="MedicationDosageFrequency_3">at bedtime</td><td ID="MedicationDuration_3">30</td><td ID="MedicationFormulaStrength_3">1 mg</td><td ID="MedicationDosageForm_3">tablet</td><td ID="MedicationDosageFormCode_3"></td><td ID="MedicationDosageDescription_3"></td><td ID="MedicationMedicationId_3">[id number]</td><td ID="MedicationAccount_3">[id number]</td><td ID="MedicationNpid_3">[id number]</td><td ID="MedicationAuthorFirstName_3">Anselmo</td><td ID="MedicationAuthorLastName_3">Amilcar</td><td ID="MedicationTaxonomyCode_3">[id number]</td><td ID="MedicationTaxonomyDesc_3">Nurse Practitioner</td><td ID="MedicationPhoneNumber_3">[phone]</td> [facility] 1.5 ML paliperidone palmitate 156 MG/ML Prefilled Syri nge [Invega] Invega Sustenna 04/16/2021 12:00:00 AM EDT 234 mg/1.5 compl eted <td ID="MedicationRxNorm_1">495900</td><td ID="MedicationMedication_1">Invega Sustenna</td><td ID="MedicationRoute_1"></td><td ID="MedicationRouteConcept_1"></td><td ID="MedicationStartDate_1">04/16/2021</td><td ID="MedicationStopDate_1"></td><td ID="MedicationDosageFrequency_1"></td><td ID="MedicationDuration_1"></td><td ID="MedicationFormulaStrength_1">234 mg/1.5 mL</td><td ID="MedicationDosageForm_1">syringe</td><td ID="MedicationDosageFormCode_1"></td><td ID="MedicationDosageDescription_1"> </td><td ID="MedicationMedicationId_1">[id number]</td><td ID="MedicationAccount_1">[id number]</td><td ID="MedicationNpid_1">[id number]</td><td ID="MedicationAuthorFirstName_1">Anselmo</td><td ID="MedicationAuthorLastName_1">Amilcar</td><td ID="MedicationTaxonomyCode_1">[id number]</td><td ID="MedicationTaxonomyDesc_1">Nurse Practitioner</td><td ID="MedicationPhoneNumber_1">[phone]</td> [facility] ([facility] 2.625 ML paliperidone palmitate 312 MG/ML Prefilled Sy ringe [Invega] Invega Trinza 04/03/2021 12:00:00 AM EDT 819 mg/2.625 compl eted <td ID="MedicationRxNorm_3">[id number]</td><td ID="MedicationMedication_3">Invega Trinza</td><td ID="MedicationRoute_3">intramuscularly</td><td ID="MedicationRouteConcept_3"></td><td ID="MedicationStartDate_3">04/03/2021</td><td ID="MedicationStopDate_3">07/02/2021</td><td ID="MedicationDosageFrequency_3">every three months</td><td ID="MedicationDuration_3">90</td><td ID="MedicationFormulaStrength_3">819 mg/2.625 mL</td><td ID="MedicationDosageForm_3">syringe</td><td ID="MedicationDosageFormCode_3"></td><td ID="MedicationDosageDescription_3"></td><td ID="MedicationMedicationId_3">[id number]</td><td ID="MedicationAccount_3">[id number]</td><td ID="MedicationNpid_3">[id number]</td><td ID="MedicationAuthorFirstName_3">Anselmo</td><td ID="MedicationAuthorLastName_3">Amilcar</td><td ID="MedicationTaxonomyCode_3">[id number]</td><td ID="MedicationTaxonomyDesc_3"> Nurse Practitioner</td><td ID="MedicationPhoneNumber_3">[phone]</td> [facility] ([facility]) 2.625 ML paliperidone palmitate 312 MG/ML Prefilled Sy ringe [Invega] Invsuleiman Trinza 04/03/2021 12:00:00 AM EDT 819 mg/2.625 compl eted <td ID="MedicationRxNorm_4">[id number]</td><td ID="MedicationMedication_4">Invega Trinza</td><td ID="MedicationRoute_4">intramuscularly</td><td ID="MedicationRouteConcept_4"></td><td ID="MedicationStartDate_4">04/03/2021</td><td ID="MedicationStopDate_4">07/02/2021</td><td ID="MedicationDosageFrequency_4">every three months</td><td ID="MedicationDuration_4">90</td><td ID="MedicationFormulaStrength_4">819 mg/2.625 mL</td><td ID="MedicationDosageForm_4">syringe</td><td ID="MedicationDosageFormCode_4"></td><td ID="MedicationDosageDescription_4"></td><td ID="MedicationMedicationId_4">[id number]</td><td ID="MedicationAccount_4">[id number]</td><td ID="MedicationNpid_4">[id number]</td><td ID="MedicationAuthorFirstName_4">Anselmo</td><td ID="MedicationAuthorLastName_4">Amilcar</td><td ID="MedicationTaxonomyCode_4">[id number]</td><td ID="MedicationTaxonomyDesc_4"> Nurse Practitioner</td><td ID="MedicationPhoneNumber_4">[phone]</td> [facility] ([facility]) haloperidol decanoate haloperidol decanoate 04/03/2021 12:00:00 AM EDT 100 mg/mL completed <td ID="Me dicationRxNorm_2">0847814</td><td ID="MedicationMedication_2">haloperidol decanoate</td><td ID="MedicationRoute_2">intramuscularly</td><td ID="MedicationRouteConcept_2"> </td><td ID="MedicationStartDate_2">04/03/2021</td><td ID="MedicationStopDate_2">04/03/2021</td><td ID="MedicationDosageFrequency_2">every four weeks</td><td ID="MedicationDuration_2">28</td><td ID="MedicationFormulaStrength_2">100 mg/mL</td><td ID="MedicationDosageForm_2">solution</td><td ID="MedicationDosageFormCode_2"></td><td ID="MedicationDosageDescription_2"></td><td ID="MedicationMedicationId_2">[id number]</td><td ID="MedicationAccount_2">[id number]</td><td ID="MedicationNpid_2">[id number]</td><td ID="MedicationAuthorFirstName_2">Anselmo</td><td ID="MedicationAuthorLastName_2">Amilcar</td><td ID="MedicationTaxonomyCode_2">[id number]</td><td ID="MedicationTaxonomyDesc_2"> Nurse Practitioner</td><td ID="MedicationPhoneNumber_2">[phone]</td> [facility] ([facility]) benztropine mesylate 1 MG Oral Tablet benztropine 04/03/2021 12:00 :00 AM EDT 1 mg by mouth completed <td ID="Me dicationRxNorm_2">729997</td><td ID="MedicationMedication_2">benztropine</td><td ID="MedicationRoute_2">by mouth</td><td ID="MedicationRouteConcept_2">J33236</td><td ID="MedicationStartDate_2">04/03/2021</td><td ID="MedicationStopDate_2">05/03/2021</td><td ID="MedicationDosageFrequency_2">at bedtime</td><td ID="MedicationDuration_2">30</td><td ID="MedicationFormulaStrength_2">1 mg</td><td ID="MedicationDosageForm_2">tablet</td><td ID="MedicationDosageFormCode_2"></td><td ID="MedicationDosageDescription_2"></td><td ID="MedicationMedicationId_2">[id number]</td><td ID="MedicationAccount_2">[id number]</td><td ID="MedicationNpid_2">[id number]</td><td ID="MedicationAuthorFirstName_2">Anselmo</td><td ID="MedicationAuthorLastName_2">Amilcar</td><td ID="MedicationTaxonomyCode_2">[id number]</td><td ID="MedicationTaxonomyDesc_2">Nurse Practitioner</td><td ID="MedicationPhoneNumber_2">[phone]</td> [facility] ([facility]) olanzapine 5 MG Oral Tablet [Zyprexa] Zyprexa 04/03/2021 12:00:00 AM EDT 5 mg by mouth completed <td ID="Medica tionRxNorm_1">196649</td><td ID="MedicationMedication_1">Zyprexa</td><td ID="MedicationRoute_1">by mouth</td><td ID="MedicationRouteConcept_1">U06126</td><td ID="MedicationStartDate_1">04/03/2021</td><td ID="MedicationStopDate_1">05/03/2021</td><td ID="MedicationDosageFrequency_1">at bedtime</td><td ID="MedicationDuration_1">30</td><td ID="MedicationFormulaStrength_1">5 mg</td><td ID="MedicationDosageForm_1">tablet</td><td ID="MedicationDosageFormCode_1"></td><td ID="MedicationDosageDescription_1"></td><td ID="MedicationMedicationId_1">[id number]</td><td ID="MedicationAccount_1">[id number]</td><td ID="MedicationNpid_1">[id number]</td><td ID="MedicationAuthorFirstName_1">Anselmo</td><td ID="MedicationAuthorLastName_1">Amilcar</td><td ID="MedicationTaxonomyCode_1">[id number]</td><td ID="MedicationTaxonomyDesc_1">Nurse Practitioner</td><td ID="MedicationPhoneNumber_1">[phone]</td> [facility] ([facility]) 2.625 ML paliperidone palmitate 312 MG/ML Prefilled Sy ringe [Invega] Invega Trinza 04/03/2021 12:00:00 AM EDT 819 mg/2.625 compl eted <td ID="MedicationRxNorm_5">[id number]</td><td ID="MedicationMedication_5">Invega Trinza</td><td ID="MedicationRoute_5">intramuscularly</td><td ID="MedicationRouteConcept_5"></td><td ID="MedicationStartDate_5">04/03/2021</td><td ID="MedicationStopDate_5">07/02/2021</td><td ID="MedicationDosageFrequency_5">every three months</td><td ID="MedicationDuration_5">90</td><td ID="MedicationFormulaStrength_5">819 mg/2.625 mL</td><td ID="MedicationDosageForm_5">syringe</td><td ID="MedicationDosageFormCode_5"></td><td ID="MedicationDosageDescription_5"></td><td ID="MedicationMedicationId_5">[id number]</td><td ID="MedicationAccount_5">[id number]</td><td ID="MedicationNpid_5">[id number]</td><td ID="MedicationAuthorFirstName_5">Anselmo</td><td ID="MedicationAuthorLastName_5">Amilcar</td><td ID="MedicationTaxonomyCode_5">[id number]</td><td ID="MedicationTaxonomyDesc_5"> Nurse Practitioner</td><td ID="MedicationPhoneNumber_5">[phone]</td> [facility] ([facility]) benztropine mesylate 1 MG Oral Tablet benztropine 04/03/2021 12:00 :00 AM EDT 1 mg by mouth completed <td ID="Me dicationRxNorm_4">290820</td><td ID="MedicationMedication_4">benztropine</td><td ID="MedicationRoute_4">by mouth</td><td ID="MedicationRouteConcept_4">R17834</td><td ID="MedicationStartDate_4">04/03/2021</td><td ID="MedicationStopDate_4">05/03/2021</td><td ID="MedicationDosageFrequency_4">at bedtime</td><td ID="MedicationDuration_4">30</td><td ID="MedicationFormulaStrength_4">1 mg</td><td ID="MedicationDosageForm_4">tablet</td><td ID="MedicationDosageFormCode_4"></td><td ID="MedicationDosageDescription_4"></td><td ID="MedicationMedicationId_4">[id number]</td><td ID="MedicationAccount_4">[id number]</td><td ID="MedicationNpid_4">[id number]</td><td ID="MedicationAuthorFirstName_4">Anselmo</td><td ID="MedicationAuthorLastName_4">Amilcar</td><td ID="MedicationTaxonomyCode_4">[id number]</td><td ID="MedicationTaxonomyDesc_4">Nurse Practitioner</td><td ID="MedicationPhoneNumber_4">[phone]</td> [facility] ([facility]) olanzapine 5 MG Oral Tablet [Zyprexa] Zyprexa 04/03/2021 12:00:00 AM EDT 5 mg by mouth completed <td ID="Medica tionRxNorm_3">806663</td><td ID="MedicationMedication_3">Zyprexa</td><td ID="MedicationRoute_3">by mouth</td><td ID="MedicationRouteConcept_3">Q87872</td><td ID="MedicationStartDate_3">04/03/2021</td><td ID="MedicationStopDate_3">05/03/2021</td><td ID="MedicationDosageFrequency_3">at bedtime</td><td ID="MedicationDuration_3">30</td><td ID="MedicationFormulaStrength_3">5 mg</td><td ID="MedicationDosageForm_3">tablet</td><td ID="MedicationDosageFormCode_3"></td><td ID="MedicationDosageDescription_3"></td><td ID="MedicationMedicationId_3">[id number]</td><td ID="MedicationAccount_3">[id number]</td><td ID="MedicationNpid_3">[id number]</td><td ID="MedicationAuthorFirstName_3">Anselmo</td><td ID="MedicationAuthorLastName_3">Amilcar</td><td ID="MedicationTaxonomyCode_3">[id number]</td><td ID="MedicationTaxonomyDesc_3">Nurse Practitioner</td><td ID="MedicationPhoneNumber_3">[phone]</td> [facility] ([facility]) 2.625 ML paliperidone palmitate 312 MG/ML Prefilled Sy ringe [Invega] Invega Trinza 04/03/2021 12:00:00 AM EDT 819 mg/2.625 compl eted <td ID="MedicationRxNorm_2">[id number]</td><td ID="MedicationMedication_2">Invega Trinza</td><td ID="MedicationRoute_2">intramuscularly</td><td ID="MedicationRouteConcept_2"></td><td ID="MedicationStartDate_2">04/03/2021</td><td ID="MedicationStopDate_2">07/02/2021</td><td ID="MedicationDosageFrequency_2">every three months</td><td ID="MedicationDuration_2">90</td><td ID="MedicationFormulaStrength_2">819 mg/2.625 mL</td><td ID="MedicationDosageForm_2">syringe</td><td ID="MedicationDosageFormCode_2"></td><td ID="MedicationDosageDescription_2"></td><td ID="MedicationMedicationId_2">[id number]</td><td ID="MedicationAccount_2">[id number]</td><td ID="MedicationNpid_2">[id number]</td><td ID="MedicationAuthorFirstName_2">Anselmo</td><td ID="MedicationAuthorLastName_2">Amilcar</td><td ID="MedicationTaxonomyCode_2">[id number]</td><td ID="MedicationTaxonomyDesc_2"> Nurse Practitioner</td><td ID="MedicationPhoneNumber_2">[phone]</td> [facility] ([facility]) haloperidol decanoate haloperidol decanoate 10/04/2020 12:00:00 AM EST 100 mg/mL completed <td ID="Me dicationRxNorm_1">1283197</td><td ID="MedicationMedication_1">haloperidol decanoate</td><td ID="MedicationRoute_1">intramuscularly</td><td ID="MedicationRouteConcept_1"> </td><td ID="MedicationStartDate_1">10/04/2020</td><td ID="MedicationStopDate_1">04/03/2021</td><td ID="MedicationDosageFrequency_1">as directed</td><td ID="MedicationDuration_1">21</td><td ID="MedicationFormulaStrength_1">100 mg/mL</td><td ID="MedicationDosageForm_1">solution</td><td ID="MedicationDosageFormCode_1"></td><td ID="MedicationDosageDescription_1"></td><td ID="MedicationMedicationId_1">[id number]</td><td ID="MedicationAccount_1">[id number]</td><td ID="MedicationNpid_1">[id number]</td><td ID="MedicationAuthorFirstName_1">Victorino</td><td ID="MedicationAuthorLastName_1">Escobar</td><td ID="MedicationTaxonomyCode_1">[id number]</td><td ID="MedicationTaxonomyDesc_1"> Psychiatry</td><td ID="MedicationPhoneNumber_1">[phone]</td> [facility] ([facility] 100 mg/mL 10/02/2020 12:00:00 AM EST solution 1 INJECT 1ML INTRAMUSCULARLY EVERY 3 WEEKS INJECT 1ML INTRAMUSCULARLY EVERY 3 WEEKS SOLD: 10/04/2020 [facility] 10 mg 09/28/2020 12:00:00 AM EST [...] 50 mg by mouth completed <td ID="Medic ationRxNorm_5">060617</td><td ID="MedicationMedication_5">trazodone</td><td ID="MedicationRoute_5">by mouth</td><td ID="MedicationRouteConcept_5">B91172</td><td ID="MedicationStartDate_5">09/12/2020</td><td ID="MedicationStopDate_5">10/12/2020</td><td ID="MedicationDosageFrequency_5">every night</td><td ID="MedicationDuration_5">30</td><td ID="MedicationFormulaStrength_5">50 mg</td><td ID="MedicationDosageForm_5">tablet</td><td ID="MedicationDosageFormCode_5"></td><td ID="MedicationDosageDescription_5"></td><td ID="MedicationMedicationId_5">[id number]</td><td ID="MedicationAccount_5">[id number]</td><td ID="MedicationNpid_5">[id number]</td><td ID="MedicationAuthorFirstName_5">Kalli</td><td ID="MedicationAuthorLastName_5">Egorho</td><td ID="MedicationTaxonomyCode_5">[id number]</td><td ID="MedicationTaxonomyDesc_5">Nurse Practitioner</td><td ID="MedicationPhoneNumber_5">[phone]</td> [facility] ([facility]) Trazodone Hydrochloride 50 MG Oral Tablet trazodone 2019 12:00:00 AM EST 50 mg by mouth completed <td ID="Medic ationRxNorm_1">135661</td><td ID="MedicationMedication_1">trazodone</td><td ID="MedicationRoute_1">by mouth</td><td ID="MedicationRouteConcept_1">X93426</td><td ID="MedicationStartDate_1">09/12/2020</td><td ID="MedicationStopDate_1">10/12/2020</td><td ID="MedicationDosageFrequency_1">every night</td><td ID="MedicationDuration_1">30</td><td ID="MedicationFormulaStrength_1">50 mg</td><td ID="MedicationDosageForm_1">tablet</td><td ID="MedicationDosageFormCode_1"></td><td ID="MedicationDosageDescription_1"></td><td ID="MedicationMedicationId_1">[id number]</td><td ID="MedicationAccount_1">[id number]</td><td ID="MedicationNpid_1">[id number]</td><td ID="MedicationAuthorFirstName_1">Kalli</td><td ID="MedicationAuthorLastName_1">Egorho</td><td ID="MedicationTaxonomyCode_1">[id number]</td><td ID="MedicationTaxonomyDesc_1">Nurse Practitioner</td><td ID="MedicationPhoneNumber_1">[phone]</td> [facility] ([facility]) Haldol Decanoate Haldol Decanoate 09/12/2020 12:00:00 AM EST 100 mg/mL completed <td ID="MedicationRx Norm_4">6016681</td><td ID="MedicationMedication_4">Haldol Decanoate</td><td ID="MedicationRoute_4">intramuscularly</td><td ID="MedicationRouteConcept_4"></td><td ID="MedicationStartDate_4">09/12/2020</td><td ID="MedicationStopDate_4">09/15/2020</td><td ID="MedicationDosageFrequency_4">as directed</td><td ID="MedicationDuration_4">1</td><td ID="MedicationFormulaStrength_4">100 mg/mL</td><td ID="MedicationDosageForm_4">solution</td><td ID="MedicationDosageFormCode_4"></td><td ID="MedicationDosageDescription_4"></td><td ID="MedicationMedicationId_4">[id number]</td><td ID="MedicationAccount_4">[id number]</td><td ID="MedicationNpid_4">[id number]</td><td ID="MedicationAuthorFirstName_4">Kalli</td><td ID="MedicationAuthorLastName_4">Egorho</td><td ID="MedicationTaxonomyCode_4">[id number]</td><td ID="MedicationTaxonomyDesc_4">Nurse Practitioner</td><td ID="MedicationPhoneNumber_4">[phone]</td> [facility] ([facility]) quetiapine 300 MG Oral Tablet quetiapine 01/06/2020 12:00:00 AM EST 300 mg completed <td ID="Medicat ionRxNorm_4">826696</td><td ID="MedicationMedication_4">quetiapine</td><td ID="MedicationRoute_4"></td><td ID="MedicationRouteConcept_4"></td><td ID="MedicationStartDate_4">01/06/2020</td><td ID="MedicationStopDate_4">01/05/2021</td><td ID="MedicationDosageFrequency_4">at bedtime</td><td ID="MedicationDuration_4">30</td><td ID="MedicationFormulaStrength_4">300 mg</td><td ID="MedicationDosageForm_4">tablet</td><td ID="MedicationDosageFormCode_4"></td><td ID="MedicationDosageDescription_4"></td><td ID="MedicationMedicationId_4">[id number]</td><td ID="MedicationAccount_4">[id number]</td><td ID="MedicationNpid_4">[id number]</td><td ID="MedicationAuthorFirstName_4">Dane</td><td ID="MedicationAuthorLastName_4">Loida</td><td ID="MedicationTaxonomyCode_4">[id number]</td><td ID="MedicationTaxonomyDesc_4">Psychiatric/Mental Health</td><td ID="MedicationPhoneNumber_4">[phone]</td> [facility] ([facility]) quetiapine 300 MG Oral Tablet quetiapine 01/06/2020 12:00:00 AM EST 300 mg completed <td ID="Medicat ionRxNorm_1">801079</td><td ID="MedicationMedication_1">quetiapine</td><td ID="MedicationRoute_1"></td><td ID="MedicationRouteConcept_1"></td><td ID="MedicationStartDate_1">01/06/2020</td><td ID="MedicationStopDate_1">01/05/2021</td><td ID="MedicationDosageFrequency_1">at bedtime</td><td ID="MedicationDuration_1">30</td><td ID="MedicationFormulaStrength_1">300 mg</td><td ID="MedicationDosageForm_1">tablet</td><td ID="MedicationDosageFormCode_1"></td><td ID="MedicationDosageDescription_1"></td><td ID="MedicationMedicationId_1">81405</td><td ID="MedicationAccount_1">[id number]</td><td ID="MedicationNpid_1">[id number]</td><td ID="MedicationAuthorFirstName_1">Dane</td><td ID="MedicationAuthorLastName_1">[place]</td><td ID="MedicationTaxonomyCode_1">[id number]</td><td ID="MedicationTaxonomyDesc_1">Psychiatric/Mental Health</td><td ID="MedicationPhoneNumber_1">[phone]</td> [facility] ([facility]) quetiapine 300 MG Oral Tablet quetiapine 01/06/2020 12:00:00 AM EST 300 mg completed <td ID="Medicat ionRxNorm_5">567931</td><td ID="MedicationMedication_5">quetiapine</td><td ID="MedicationRoute_5"></td><td ID="MedicationRouteConcept_5"></td><td ID="MedicationStartDate_5">01/06/2020</td><td ID="MedicationStopDate_5">01/05/2021</td><td ID="MedicationDosageFrequency_5">at bedtime</td><td ID="MedicationDuration_5">30</td><td ID="MedicationFormulaStrength_5">300 mg</td><td ID="MedicationDosageForm_5">tablet</td><td ID="MedicationDosageFormCode_5"></td><td ID="MedicationDosageDescription_5"></td><td ID="MedicationMedicationId_5">[id number]</td><td ID="MedicationAccount_5">[id number]</td><td ID="MedicationNpid_5">[id number]</td><td ID="MedicationAuthorFirstName_5">Dane</td><td ID="MedicationAuthorLastName_5">[place]</td><td ID="MedicationTaxonomyCode_5">[id number]</td><td ID="MedicationTaxonomyDesc_5">Psychiatric/Mental Health</td><td ID="MedicationPhoneNumber_5">[phone]</td> [facility] ([facility]) Aristada Ariada 12/20/2019 12:00:00 AM EST mg/3.9 completed <td ID="MedicationRxNorm_3">[id number]</td><td ID="MedicationMedication_3">Aristada</td><td ID="MedicationRoute_3">intramuscularly</td><td ID="MedicationRouteConcept_3"></td><td ID="MedicationStartDate_3">12/20/2019</td><td ID="MedicationStopDate_3">09/12/2020</td><td ID="MedicationDosageFrequency_3"></td><td ID="MedicationDuration_3"></td><td ID="MedicationFormulaStrength_3">1,064 mg/3.9 mL</td><td ID="MedicationDosageForm_3">suspension,extended rel syring</td><td ID="MedicationDosageFormCode_3"></td><td ID="MedicationDosageDescription_3">as directed</td><td ID="MedicationMedicationId_3">[id number]</td><td ID="MedicationAccount_3">[id number]</td><td ID="MedicationNpid_3">[id number]</td><td ID="MedicationAuthorFirstName_3">Dane</td><td ID="MedicationAuthorLastName_3">Loida</td><td ID="MedicationTaxonomyCode_3">[id number]</td><td ID="MedicationTaxonomyDesc_3"> Psychiatric/Mental Health</td><td ID="MedicationPhoneNumber_3">[phone]</td> [facility] ([facility]) Trazodone Hydrochloride 50 MG Oral Tablet trazodone 2018 12:00:00 AM EDT 50 mg by mouth completed <td ID="Medic ationRxNorm_2">621428</td><td ID="MedicationMedication_2">trazodone</td><td ID="MedicationRoute_2">by mouth</td><td ID="MedicationRouteConcept_2">M74338</td><td ID="MedicationStartDate_2">06/10/2019</td><td ID="MedicationStopDate_2">09/12/2020</td><td ID="MedicationDosageFrequency_2">at bedtime</td><td ID="MedicationDuration_2"></td><td ID="MedicationFormulaStrength_2">50 mg</td><td ID="MedicationDosageForm_2">tablet</td><td ID="MedicationDosageFormCode_2"></td><td ID="MedicationDosageDescription_2"></td><td ID="MedicationMedicationId_2">71874</td><td ID="MedicationAccount_2">[id number]</td><td ID="MedicationNpid_2">[id number]</td><td ID="MedicationAuthorFirstName_2">Dane</td><td ID="MedicationAuthorLastName_2">Loida</td><td ID="MedicationTaxonomyCode_2">[id number]</td><td ID="MedicationTaxonomyDesc_2">Psychiatric/Mental Health</td><td ID="MedicationPhoneNumber_2">[phone]</td> [facility] ([facility]) Amantadine Hydrochloride 100 MG Oral Capsule amantadine HCl 07/30/2017 12:00:00 AM EDT 100 mg by mouth completed <td ID="MedicationRxNorm_1">332953</td><td ID="MedicationMedication_1">amantadine HCl</td><td ID="MedicationRoute_1">by mouth</td><td ID="MedicationRouteConcept_1">X80191</td><td ID="MedicationStartDate_1">07/30/2017</td><td ID="MedicationStopDate_1">09/12/2020</td><td ID="MedicationDosageFrequency_1">every morning</td><td ID="MedicationDuration_1"></td><td ID="MedicationFormulaStrength_1">100 mg</td><td ID="MedicationDosageForm_1">capsule</td><td ID="MedicationDosageFormCode_1"></td><td ID="MedicationDosageDescription_1"></td><td ID="MedicationMedicationId_1">98737</td><td ID="MedicationAccount_1">[id number]</td><td ID="MedicationNpid_1">[id number]</td><td ID="MedicationAuthorFirstName_1">Dane</td><td ID="MedicationAuthorLastName_1">[place]</td><td ID="MedicationTaxonomyCode_1">[id number]</td><td ID="MedicationTaxonomyDesc_1">Psychiatric/Mental Health</td><td ID="MedicationPhoneNumber_1">[phone]</td> [facility] ([facility]) Insurance Providers Payer name Policy type / Coverage type Policy ID Covered democrat ID Covered democrat's relationship to shafer Policy Shafer Plan Information Medicaid S [id number] S [id number] Managed Care - Community Plan [facility] P [id number] S [id number] Medicaid S [id number] S [id number] [facility] I [id number] Self [id number] [facility] I [id number] Self [id number] [facility] I [id number] Self [id number] Managed Care - [facility] Community Plan P [id number] S [id number] Medicaid S [id number] S [id number] Managed Care - [facility] Community Plan P [id number] S [id number] [employer] COMMUNITY [employer]AN MCDHMO [id number] SP [id number] [facility] MAN CRE [id number] SP [id number] [facility] [id number] SP [id number] SELF PAY [facility] OFFICE OF MENTAL HEALTH UNAVAILABLE S UNAVAILABLE MEDICAID [id number] S [id number] [facility] OFFICE OF MENTAL HEALTH [id number] S [id number] [employer] COMMUNITY PLAN MCDHMO [id number] SP [id number] [facility] OFFICE OF MENTAL HEALTH [id number] S [id number] [facility] [id number] SP [id number] SELF PAY ONLY [id number] SP [id number] [facility] [id number] SP [id number] SELF PAY SP [facility] O [id number] S [id number] [facility] [id number] SP [id number] Self Pay P UNAVAILABLE S UNAVAILA BLE [facility]) O [id number] S [id number] [facility] [id number] SP [id number] MEDICAID [id number] SP [id number] [employer] COMMUNITY [employer]AN MCDHMO [id number] SP [id number] MEDICAID [id number] SP [id number] Problems, Conditions, and Diagnoses Code Display Name Description Problem Type Effective Dates Data Source(s) F11.10 Opioid abuse, uncomplicated F11.10 - Opioid abus e, uncomplicated Diagnosis 02/27/2021 08:12:00 PM EDT [facility] 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, uncomplicated F16.10 - Hallucinogen abuse, uncomplicated Diagnosis 02/27/2021 08:12:00 PM [facility] F25.9 Schizoaffective disorder, unspecified F2 5.9 - Schizoaffective disorder, unspecified Diagnosis 02/27/2021 08:12:00 PM EDT [facility] Z13.9 Encounter for screening, unspecified Z13 .9 - Encounter for screening, unspecified Diagnosis 02/27/2021 08:12:00 PM [facility] schizophrenia, hallucinations, substance abuse schizophrenia, hallucinations, substance abuse Diagnosis 09/22/2020 02:27:00 PM [facility] F15.20 Other stimulant dependence, uncomplicate d Stimulant Use Disorder, Moderate: Amphetamine-type substance Condition 07/29/2021 12:00:00 AM EDT [facility] ([facility]) F10.20 Alcohol dependence, uncomplicated Alcohol Use Disorder , Severe Condition 07/29/2021 12:00:00 AM EDT [facility] ([facility]) F17.200 Nicotine dependence, unspecified, uncomp licated Tobacco Use Disorder, Moderate Condition 07/29/2021 12:00:00 AM EDT [facility] ([facility]) F12.20 Cannabis dependence, uncomplicated Cannabis Use Disorder, Moderate Condition 07/29/2021 12:00:00 AM EDT [facility] ([facility]) F20.9 Schizophrenia, unspecified Schizophrenia Condition 07/29/2021 12:00:00 AM EDT [facility] ([facility]) Surgeries/Procedures Procedure Description Date Indications Data Source(s) Comprehensive medication services, per 15 minutes 07/29/2021 12:00:00 AM EDT - 07/29/2021 12:00:00 AM EDT [facility] ([facility]) Comprehensive medication services, per 15 minutes 07/29/2021 12:00:00 AM EDT [facility] ([facility]) Comprehensive medication services, per 15 minutes 06/24/2021 12:00:00 AM EDT - 06/24/2021 12:00:00 AM EDT [facility] ([facility]) Comprehensive medication services, per 15 minutes 06/24/2021 12:00:00 AM EDT [facility] ([facility]) THERAPEUTIC PROPHYLACTIC/DX INJECTION SUBQ/IM 05/27/2021 12:00:00 AM EDT - 05/27/2021 12:00:00 AM EDT [facility] ([facility]) THERAPEUTIC PROPHYLACTIC/DX INJECTION SUBQ/IM 05/27/20 12:00:00 AM EDT [facility] ([facility]) Brief Individual Psychotherapy - 30 min 05/13/2021 12:00:00 AM EDT - 05/13/2021 12:00:00 AM EDT [facility] ([facility]) Brief Individual Psychotherapy - 30 min 05/13/2021 12: 00:00 AM EDT [facility] ([facility]) Comprehensive medication services, per 15 minutes 04/04/2021 12:00:00 AM EDT - 04/04/2021 12:00:00 AM EDT [facility] ([facility]) Comprehensive medication services, per 15 minutes 04/03/2021 12:00:00 AM EDT [facility] ([facility]) OFFICE OUTPATIENT VISIT 15 MINUTES 04/03 12:00:00 AM EDT - 04/03/2021 12:00:00 AM EDT [facility] ([facility]) Psychotherapy ADD ON - 30 Minutes 04/03/2021 12:00:00 AM EDT [facility] ([facility]) OFFICE OUTPATIENT VISIT 15 MINUTES 04/03/2021 12:00:00 AM EDT [facility] ([facility]) OFFICE OUTPATIENT VISIT 15 MINUTES 03/27 12:00:00 AM EDT - 03/27/2021 12:00:00 AM EDT [facility] ([facility]) OFFICE OUTPATIENT VISIT 15 MINUTES 03/27/2021 12:00:00 AM EDT [facility] ([facility]) OFFICE OUTPATIENT VISIT 15 MINUTES 03/19 12:00:00 AM EDT - 03/19/2021 12:00:00 AM EDT [facility] ([facility]) OFFICE OUTPATIENT VISIT 15 MINUTES 03/19/2021 12:00:00 AM EDT [facility] ([facility]) OFFICE OUTPATIENT VISIT 15 MINUTES 02/12 12:00:00 AM EDT - 02/12/2021 12:00:00 AM EDT [facility] ([facility]) OFFICE OUTPATIENT VISIT 15 MINUTES 02/12/2021 12:00:00 AM EDT [facility] ([facility]) OFFICE OUTPATIENT VISIT 15 MINUTES 02/07 12:00:00 AM EDT - 02/07/2021 12:00:00 AM EDT [facility] ([facility]) OFFICE OUTPATIENT VISIT 15 MINUTES 02/07/2021 12:00:00 AM EDT [facility] ([facility]) Brief Individual Psychotherapy - 30 min 02/01/2021 12:00:00 AM EDT - 02/01/2021 12:00:00 AM EDT [facility] ([facility]) Brief Individual Psychotherapy - 30 min 02/01/2021 12: 00:00 AM EDT [facility] ([facility]) OFFICE OUTPATIENT VISIT 15 MINUTES 01/23 12:00:00 AM EDT - 01/23/2021 12:00:00 AM EDT [facility] ([facility]) OFFICE OUTPATIENT VISIT 15 MINUTES 01/23/2021 12:00:00 AM EDT [facility] ([facility]) THERAPEUTIC PROPHYLACTIC/DX INJECTION SUBQ/IM 01/23/2021 12:00:00 AM EDT - 01/23/2021 12:00:00 AM EDT [facility] ([facility]) THERAPEUTIC PROPHYLACTIC/DX INJECTION SUBQ/IM 01/24/20 12:00:00 AM EDT [facility] ([facility]) Comprehensive medication services, per 15 minutes 01/18/2021 12:00:00 AM EDT - 01/18/2021 12:00:00 AM EDT [facility] ([facility]) Comprehensive medication services, per 15 minutes 01/18/2021 12:00:00 AM EDT [facility] ([facility]) OFFICE OUTPATIENT VISIT 15 MINUTES 01/17 12:00:00 AM EDT - 01/17/2021 12:00:00 AM EDT [facility] ([facility]) OFFICE OUTPATIENT VISIT 15 MINUTES 01/17/2021 12:00:00 AM EDT [facility] ([facility]) MHC Telemed E/M Lvl 3--Est pt 01/01/2021 12:00:00 AM EST - 01/01/2021 12:00:00 AM EST [facility] ([facility]) MHC Telemed E/M Lvl 3--Est pt 01/01/2021 12:00:[address] [facility] ([facility]) THERAPEUTIC PROPHYLACTIC/DX INJECTION SUBQ/IM 12/28/2020 12:00:00 AM EST - 12/28/2020 12:00:00 AM EST [facility] ([facility]) THERAPEUTIC PROPHYLACTIC/DX INJECTION SUBQ/IM 12/28/19 12:00:00 AM EST [facility] ([facility]) MHC Telemed E/M Lvl 3--Est pt 12/20/2020 12:00:00 AM EST - 12/20/2020 12:00:00 AM EST [facility] ([facility]) MHC Telemed E/M Lvl 3--Est pt 12/20/2020 12:00:[address] [facility] ([facility]) MHC Telemed E/M Lvl 3--Est pt 12/06/2020 12:00:00 AM EST - 12/06/2020 12:00:00 AM EST [facility] ([facility]) MHC Telemed E/M Lvl 3--Est pt 12/06/2020 12:00:[address] [facility] ([facility]) Comprehensive medication services, per 15 minutes 11/15/2020 12:00:00 AM EST - 11/15/2020 12:00:00 AM EST [facility] ([facility]) Comprehensive medication services, per 15 minutes 11/15/2020 12:00:00 AM EST [facility] ([facility]) OFFICE OUTPATIENT VISIT 15 MINUTES 11/15 12:00:00 AM EST - 11/15/2020 12:00:00 AM EST [facility] ([facility]) OFFICE OUTPATIENT VISIT 15 MINUTES 11/15/2020 12:00:00 AM EST [facility] ([facility]) THERAPEUTIC PROPHYLACTIC/DX INJECTION SUBQ/IM 10/18/2020 12:00:00 AM EST - 10/18/2020 12:00:00 AM EST [facility] ([facility]) THERAPEUTIC PROPHYLACTIC/DX INJECTION SUBQ/IM 10/18/20 20 12:00:00 AM EST [facility] ([facility]) THERAPEUTIC PROPHYLACTIC/DX INJECTION SUBQ/IM 10/15/2020 12:00:00 AM EST - 10/15/2020 12:00:00 AM EST [facility] ([facility]) THERAPEUTIC PROPHYLACTIC/DX INJECTION SUBQ/IM 10/15/20 20 12:00:00 AM EST [facility] ([facility]) THERAPEUTIC PROPHYLACTIC/DX INJECTION SUBQ/IM 10/04/2020 12:00:00 AM EST - 10/04/2020 12:00:00 AM EST [facility] ([facility]) THERAPEUTIC PROPHYLACTIC/DX INJECTION SUBQ/IM 10/04/20 20 12:00:00 AM EST [facility] ([facility]) OFFICE OUTPATIENT VISIT 15 MINUTES 10/04 12:00:00 AM EST - 10/04/2020 12:00:00 AM EST [facility] ([facility]) OFFICE OUTPATIENT VISIT 15 MINUTES 10/04/2020 12:00:00 AM EST [facility] ([facility]) OFFICE OUTPATIENT VISIT 15 MINUTES 09/12 12:00:00 AM EST - 09/12/2020 12:00:00 AM EST [facility] ([facility]) OFFICE OUTPATIENT VISIT 15 MINUTES 09/12/2020 12:00:00 AM EST [facility] ([facility]) THERAPEUTIC PROPHYLACTIC/DX INJECTION SUBQ/IM 09/12/2020 12:00:00 AM EST - 09/12/2020 12:00:00 AM EST [facility] ([facility]) THERAPEUTIC PROPHYLACTIC/DX INJECTION SUBQ/IM 09/12/20 20 12:00:00 AM EST [facility] ([facility]) OFFICE OUTPATIENT VISIT 15 MINUTES 08/10 12:00:00 AM EDT - 08/10/2020 12:00:00 AM EDT [facility] ([facility]) OFFICE OUTPATIENT VISIT 15 MINUTES 08/10/2020 12:00:00 AM EDT [facility] ([facility]) THERAPEUTIC PROPHYLACTIC/DX INJECTION SUBQ/IM 07/13/2020 12:00:00 AM EDT - 07/13/2020 12:00:00 AM EDT [facility] ([facility]) THERAPEUTIC PROPHYLACTIC/DX INJECTION SUBQ/IM 07/13/20 12:00:00 AM EDT [facility] ([facility]) Results ID Date Data Source [id number] 07/19/2021 10:40:00 AM EDT [facility] Name Value Range Interpretation Code Description Data Michelle rce(s) Supporting Document(s) SARS coronavirus 2 RNA [Presence] in Res piratory specimen by OMI with probe detection NEGATIVE [facility] This lab was ordered by [facility] a nd reported by [facility]. ID Date Data Source [id number] 07/19/2021 09:50:00 AM EDT [facility] Name Value Range Interpretation Code Description Data Michelle rce(s) Supporting Document(s) SARS COVID ANTIGEN NEGATIVE [facility] This lab was ordered by [facility] a nd reported by [facility]. ID Date Data Source [id number] 06/04/2021 08:17:00 PM EDT [facility] Name Value Range Interpretation Code Description Data Michelle rce(s) Supporting Document(s) SARS coronavirus 2 RNA [Presence] in Res piratory specimen by OMI with probe detection NEGATIVE [facility] This lab was ordered by [facility] a nd reported by [facility]. ID Date Data Source [id number] 05/01/2021 01:57:00 PM EDT [facility] Name Value Range Interpretation Code Description Data Michelle rce(s) Supporting Document(s) SARS coronavirus 2 RNA [Presence] in Res piratory specimen by OMI with probe detection NEGATIVE [facility] This lab was ordered by [facility] a nd reported by [facility]. ID Date Data Source [id number] 04/19/2021 06:29:00 AM EDT [facility] Name Value Range Interpretation Code Description Data Michelle rce(s) Supporting Document(s) SARS coronavirus 2 RNA [Presence] in Res piratory specimen by OMI with probe detection NEGATIVE [facility] This lab was ordered by [facility] a nd reported by [facility]. ID Date Data Source [id number] 04/17/2021 05:50:00 PM EDT [facility] Name Value Range Interpretation Code Description Data Michelle rce(s) Supporting Document(s) SARS-CoV-2 (COVID-19) RNA [Presence] in Respiratory specimen by OMI with probe detection Not Detected [facility] This lab was ordered by [facility] and reported by [facility]. ID Date Data Source [id number] 02/28/2021 04:53:00 PM EDT [address] [address] HEALTH INFORMATION MANAGEMENT History and Physical Report : [id number] Signed Patient: Gabo Parra Acct:[id number] Unit: Low [id number] : 1980 [facility] Room/Bed: 820-B Age/Sex: 40 / M [...] charges for this visit?: Yes Inpt Consult [id number] Cons Level 1: Yes Signed By:Rambo Summers <<Signature on File>> Signed Date/Time: 02/28/211657 Co-Signer: Leonel Hubbard MD Co-Signed Date/Time: 02/28/21 7169 Initializing User: Rambo Summers NP 02/28/211652 52 52 Name Value Range Interpretation Code Description Data Michelle rce(s) Supporting Document(s) ID Date Data Source [id number] 02/28/2021 10:45:00 AM EDT [facility] [address] [place] [address] HEALTH INFORMATION MANAGEMENT [facility] Psychosocial Summary : [id number] Signed Patient: Gabo Parra Acct:[id number] Unit: Low [id number] : 1980 Loc: IN Room/Bed: 820-B Age/Sex: 40 / M ADM Date: 02/27/21 cc: General/History - Presenting Problem Presenting Problem: Social Summary/Discharge plan Presenting Problem Gabo is a40 yo AAM, extensive psych hx, also problems with substance abuse admitted on a transfer from [facility] ER brought in there by his CW as pt was feeling depressed, suicidal, also hallucinating and after abusing drugs History. tates was partially complaint with meds. Not able to name his psychiatrist in [place], not able to name the therapist. Gives h/o 5 to 6 inpt psych txs, last one few months ago, "I can't remember the place, they send me from [facility]. " Also, h'o inpt psych tx at [facility]. H/o self harm time, tried [...] Person?: No Are you part of any islam/spirtual community?: Yes (Confucianism ) - Current Living/Relationship History Current Living Arrangement: House Who Do You Live With?: Mother. OK to Return Home: Yes Weapons in household: No Currently in a Relationship?: No Ever Been ?: No Any Children?: 2 - Family History Where Were You Born/Raised?: [place] Who Was in Home?: Mother, Father How [...] Reducing Risk: Complies with Tx/Meds, Future Oriented, Muslim Beliefs Mental Status Treatment - Mental Status [...] rce(s) Supporting Document(s) ID Date Data Source [id number] 02/27/2021 04:28:00 PM EDT [facility] Name Value Range Interpretation Code Description Data Michelle rce(s) Supporting Document(s) SARS coronavirus 2 RNA [Presence] in Res piratory specimen by [facility]MI with probe detection NEGATIVE [facility] This lab was ordered by [facility] a nd reported by [facility]. ID Date Data Source [id number] 01/23/2021 01:03:00 AM EDT [facility] Name Value Range Interpretation Code Description Data Michelle rce(s) Supporting Document(s) SARS coronavirus 2 RNA [Presence] in Res piratory specimen by OMI with probe detection NEGATIVE [facility] This lab was ordered by [facility] a nd reported by [facility]. ID Date Data Source [id number] 10/17/2020 12:19:00 AM EST [facility] Name Value Range Interpretation Code Description Data Michelle rce(s) Supporting Document(s) SARS coronavirus 2 RNA [Presence] in Res piratory specimen by [facility]MI with probe detection [facility] This lab was ordered by [facility] a nd reported by [facility]. Procedure Social History Code Duration Value Status Description Data Source(s ) Smoking 07/29/2021 12:00:00 AM EDT Unknown if ever smoked comp leted Unknown if [facility] Smoking 06/24/2021 12:00:00 AM EDT Unknown if ever smoked comp leted Unknown if ever smoked [facility] ([facility]) Smoking 05/27/2021 12:00:00 AM EDT Unknown if ever smoked comp leted Unknown if ever smoked [facility] ([facility]) Smoking 05/13/2021 12:00:00 AM EDT Unknown if ever smoked comp leted Unknown if ever smoked [facility] ([facility]) Smoking 04/04/2021 12:00:00 AM EDT Unknown if ever smoked comp leted Unknown if ever smoked [facility] ([facility]) Smoking 04/03/2021 12:00:00 AM EDT Unknown if ever smoked comp leted Unknown if ever smoked [facility] ([facility]) Smoking 03/27/2021 12:00:00 AM EDT Unknown if ever smoked comp leted Unknown if ever smoked [facility] ([facility]) Smoking 03/19/2021 12:00:00 AM EDT Unknown if ever smoked comp leted Unknown if ever smoked [facility] ([facility]) Smoking 02/12/2021 12:00:00 AM EDT Unknown if ever smoked comp leted Unknown if ever smoked [facility] ([facility]) Smoking 02/07/2021 12:00:00 AM EDT Unknown if ever smoked comp leted Unknown if ever smoked [facility] ([facility]) Smoking 02/01/2021 12:00:00 AM EDT Unknown if ever smoked comp leted Unknown if ever smoked [facility] ([facility]) Smoking 01/23/2021 12:00:00 AM EDT Unknown if ever smoked comp leted Unknown if ever smoked [facility] ([facility]) Smoking 01/18/2021 12:00:00 AM EDT Unknown if ever smoked comp leted Unknown if ever smoked [facility] ([facility]) Smoking 01/17/2021 12:00:00 AM EDT Unknown if ever smoked comp leted Unknown if ever smoked [facility] ([facility]) Smoking 01/01/2021 12:00:00 AM EST Unknown if ever smoked comp leted Unknown if ever smoked [facility] ([facility]) Smoking 12/28/2020 12:00:00 AM EST Unknown if ever smoked comp leted Unknown if ever smoked [facility] ([facility]) Smoking 12/20/2020 12:00:00 AM EST Unknown if ever smoked comp leted Unknown if ever smoked [facility] ([facility]) Smoking 12/06/2020 12:00:00 AM EST Unknown if ever smoked comp leted Unknown if ever smoked [facility] ([facility]) Smoking 11/15/2020 12:00:00 AM EST Unknown if ever smoked comp leted Unknown if ever smoked [facility] ([facility]) Smoking 10/18/2020 12:00:00 AM EST Unknown if ever smoked comp leted Unknown if ever smoked [facility] ([facility]) Smoking 10/15/2020 12:00:00 AM EST Unknown if ever smoked comp leted Unknown if ever smoked [facility] ([facility]) Smoking 10/04/2020 12:00:00 AM EST Unknown if ever smoked comp leted Unknown if ever smoked [facility] ([facility]) Smoking 09/12/2020 12:00:00 AM EST Unknown if ever smoked comp leted Unknown if ever smoked [facility] ([facility]) Smoking 08/10/2020 12:00:00 AM EDT Unknown if ever smoked comp leted Unknown if ever smoked [facility] ([facility]) Smoking 07/13/2020 12:00:00 AM EDT Unknown if ever smoked comp leted Unknown if ever smoked [facility] ([facility]) Vital Signs ID Date Data Source UNK Name Value Range Interpretation Code Description Data Source(s) Body height 0.00 in Normal (applies to non-numeric resu lts) 0.00 in [facility] ([facility]) Body weight Measured 0.00 lbs Normal (applies to n on-numeric results) 0.00 lbs [facility] ([facility]) Body mass index (BMI) [Ratio] 0.00 kg/m2 No rmal (applies to non-numeric results) 0.00 kg/m2 [facility] ([facility]) Systolic blood pressure 0 mm[Hg] Normal (applies t o non-numeric results) 0 mm[Hg] [facility] ([facility]) Diastolic blood pressure 0 mm[Hg] Normal (applies to non-numeric results) 0 mm[Hg] [facility] ([facility]) Body height 0.00 in Normal (applies to non-numeric resu lts) 0.00 in [facility] ([facility]) Body weight Measured 0.00 lbs Normal (applies to n on-numeric results) 0.00 lbs [facility] ([facility]) Body mass index (BMI) [Ratio] 0.00 kg/m2 No rmal (applies to non-numeric results) 0.00 kg/m2 [facility] ([facility]) Systolic blood pressure 0 mm[Hg] Normal (applies t o non-numeric results) 0 mm[Hg] [facility] ([facility]) Diastolic blood pressure 0 mm[Hg] Normal (applies to non-numeric results) 0 mm[Hg] [facility] ([facility]) Body height 0.00 in Normal (applies to non-numeric resu lts) 0.00 in [facility] Body weight Measured 0.00 lbs Normal (applies to n on-numeric results) 0.00 lbs [facility] ([facility]) Body mass index (BMI) [Ratio] 0.00 kg/m2 No rmal (applies to non-numeric results) 0.00 kg/m2 [facility] ([facility]) Systolic blood pressure 0 mm[Hg] Normal (applies t o non-numeric results) 0 mm[Hg] [facility] ([facility]) Diastolic blood pressure 0 mm[Hg] Normal (applies to non-numeric results) 0 mm[Hg] [facility] ([facility]) Body height 0.00 in Normal (applies to non-numeric resu lts) 0.00 in [facility] ([facility]) Body weight Measured 0.00 lbs Normal (applies to n on-numeric results) 0.00 lbs [facility] ([facility]) Body mass index (BMI) [Ratio] 0.00 kg/m2 No rmal (applies to non-numeric results) 0.00 kg/m2 [facility] ([facility]) Systolic blood pressure 0 mm[Hg] Normal (applies t o non-numeric results) 0 mm[Hg] [facility] ([facility]) Diastolic blood pressure 0 mm[Hg] Normal (applies to non-numeric results) 0 mm[Hg] [facility] ([facility]) ID Date Data Source [id number] 09/22/2020 02:27:59 PM [facility] Name Value Range Interpretation Code Description Data Source(s) TRANSFER FROM [facility]
[2021-08-26 15:27] VITALS: BP 134/78
== END 2021-08-26 15:29 | disposition home or self-care (01) ==
LOC: M ED 03:55
DX: F20.9 Schizophrenia, unspecified (principal); F32.A Depression, unspecified; I10 Essential (primary) hypertension; Z79.899 Other long term (current) drug therapy

== ENCOUNTER 2021-09-01 01:50 | Emergency (ER) | payer OTHER ==
[~2021-09-01] VITALS: Ht 175.3 cm; Wt 72.8 kg
[2021-09-01 01:51] VITALS: BP 115/72
--- OUTSIDE RECORDS SUMMARY | 2021-09-01 01:58 | CCD ---
Author Author [facility] Organization [facility] Address Unknown Phone Unavailable Support Name Relationship Address Phone Hudson GUTIERREZ, Pasha Next Of Kin [address] [place] [address] Diamante Costa Next Of Kin [address] [place] [address] Dwain Joseph DO Next Of Kin [address] [place] [address] Cameron Bingham MD Next Of Kin [address] [place] [address] SELFGARY Next Of Kin [address] [place] [address] YONI JACK Next Of Kin [address] [place] [address] CORRE[place]AL, [place] Next Of Kin [address] [place] [address] Monique Conklin MD Next Of Kin [address] [place] [address] [phone] YONI CALHOUN Next Of Kin [address] [place] [address] Isabelle Manning Next Of Kin [address] [place] [address] Pat Gallo DO Next Of Kin [address] [place] [address] DISABLED Next Of Kin Unknown Unavailable Kaplan Self Next Of Kin [address] [place] [phone] SELF, JUNIOR Next Of Kin [address] [place] [address] UE Next Of Kin Unknown Unavailable SIMON WALL Next Of Kin [address] [place] [address] SELF, JUNIOR [address] [place] [address] Unavailable Care Team Providers Care Mobile Device Developer Name Role Phone Farden, M Rambo [...] SYSTEM IN, NOT IN PROVIDER Unavailable Unavailable BILAL, JONNATHAN MD Unavailable Unavailable BILAL, JONNATHAN GUTIERREZ Unavailable Unavailable BILAL, JONNATHAN GUTIERREZ Unavailable Unavailable BILAL, JONNATHAN GUTIERREZ Unavailable Unavailable BILAL, JONNATHAN GUTIERREZ Unavailable Unavailable BILAL, JONNATHAN GUTIERREZ Unavailable Unavailable BILAL, JONNATHAN GUTIERREZ Unavailable Unavailable BILAL, JONNATHAN GUTIERREZ Unavailable Unavailable BILAL, JONNATHAN GUTIERREZ Unavailable Unavailable BILAL, JONNATHAN GUTIERREZ Unavailable Unavailable Gina Nash Unavailable AMILCAR, H ANSELMO COMPLIANCE COORDINATOR Unavailable Unavailable AMILCAR, H ANSELMO COMPLIANCE COORDINATOR Unavailable Unavailable AMILCAR, H ANSELMO COMPLIANCE COORDINATOR Unavailable Unavailable AMILCAR, H ANSELMO COMPLIANCE COORDINATOR Unavailable Unavailable AMILCAR, H ANSELMO COMPLIANCE COORDINATOR Unavailable Unavailable AMILCAR, H ANSELMO COMPLIANCE COORDINATOR Unavailable Unavailable AMILCAR, H ANSELMO COMPLIANCE COORDINATOR Unavailable Unavailable AMILCAR, H ANSELMO COMPLIANCE COORDINATOR Unavailable Unavailable AMILCAR, H ANSELMO COMPLIANCE COORDINATOR Unavailable Unavailable Jossie Marcelino Unavailable Rotella, Jossy Unavailable Unavailable Thalia Carreno Unavailable ALIASES , ORGANIZATION NPI Unavailable Unavailable [...] Unavailable Unavailable Solomon Treviño MD Unavailable Unavailable Escobar, E Victorino GUTIERREZ Unavailable Unavailable Escobar, E Victorino GUTIERREZ Unavailable Unavailable Escobar, E Victorino GUTIERREZ Unavailable Unavailable Escobar, E Victorino GUTIERREZ Unavailable Unavailable Pam Juarez Unavailable EGORHO, F KALLI FPMHNP Unavailable Unavailable [...] is protected by Article 27-F of the [facility] Public Health law. If you continue you may have access to information: Regarding HIV / AIDS; Provided by facilities licensed or operated by the [facility] Office of Mental Health; or Provided by the [facility] Office for People With Developmental Disabilities. If such information is present, then the following [facility] mandated warning applies: This information [...] law may result in a fine or longterm sentence or both. A general authorization for the release of medical or other information is NOT sufficient authorization for further disc losure. Allergies and Adverse Reactions Type Description Substance Reaction Status Data Source(s ) Drug allergy No Known Allergies No Known Allergies [facility] Propensity to adverse reactions NO KNOWN ALLERGIES NO KNOWN ALLERGIES [facility] Encounters Encounter Providers Location Date Indications Data Source(s ) Injectable Medication Administration w/ Monitoring & E ducation Attender: Pammurphy Isbellpo [facility] 07/29/2021 02:30:00 AM EDT - 07/29/2021 02:30:00 AM EDT [facility] ([facility]) Attender: Pam Juarez 07/29/2021 12:00:00 AM EDT [facility] ([facility]) Injectable Medication Administration w/ Monitoring & E ducation Attender: Thalia CallahanAlbaAlphonso [facility] 06/24/2021 10:45:00 AM EDT - 06/24/2021 10:45:00 AM EDT [facility] ([facility]) Attender: Thalia Carreno 06/24/2021 12:00:00 AM EDT [facility] ([facility]) Injectable Psychotropic Medication Administration (Inj ection Only) Attender: Thalia Carreno [facility] 05/27/2021 08:15:00 AM EDT - 05/27/2021 08:15:00 AM EDT [facility] ([facility]) Attender: Thalia Carreno 05/27/2021 12:00:00 AM EDT [facility] ([facility]) Brief Individual Psychotherapy - 30 min Attender: Gina yun [facility] 05/13/2021 08:30:00 AM EDT - 05/13/2021 08:30:00 AM EDT [facility] ([facility]) Attender: Gina Nash 05/13/2021 12:00:00 AM EDT [facility] ([facility]) Attender: Pam Juarez 04/04/2021 12:00:00 AM EDT [facility] ([facility]) Injectable Medication Administration w/ Monitoring & E ducation Attender: Pam Isbellpo [facility] 04/03/2021 09:00:00 AM EDT - 04/03/2021 09:00:00 AM EDT [facility] ([facility]) Outpatient Attender: ANSELMO APONTE NP [facility] Mike garcía 04/03/2021 08:30:00 AM EDT - 04/03/2021 08:30:00 AM EDT [facility] ([facility]) Attender: ANSELMO APONTE NP 04/03/2021 12:00:00 AM EDT [facility] ([facility]) Outpatient Attender: ANSELMO APONTE NP [facility] Mike raquel 03/27/2021 11:00:00 AM EDT - 03/27/2021 11:00:00 AM EDT [facility] ([facility]) Attender: ANSELMO APONTE NP 03/27/2021 12:00:00 AM EDT [facility] ([facility]) Outpatient Attender: ANSELMO APONTE NP [facility] Mike garcía 03/19/2021 03:00:00 AM EDT - 03/19/2021 03:00:00 AM EDT [facility] ([facility]) Attender: ANSELMO APONTE NP 03/19/2021 12:00:00 AM EDT [facility] ([facility]) Inpatient Attender: JONNATHAN TRACY MDAdmitter: JONNATHAN TRACY MD 02/27/2021 08:12:00 PM EDT - 03/08/2021 03:27:00 PM EDT [facility] / Homicidal Ideation Patient discharged. Outpatient Attender: JONNATHAN Bonilla tter: JONNATHAN TRACY MDConsultant: JONNATHAN TRACY MD 02/27/2021 08:12:00 PM EDT Suicidal Ideation / H omicidal Ideation [facility] Suicidal Ideation / Homicidal Ideation Outpatient Attender: JONNATHAN Bonilla tter: JONNATHAN TRACY MDConsultant: JONNATHAN TRACY MD 02/27/2021 08:12:00 PM EDT Suicidal Ideation / H omicidal Ideation [facility] Suicidal Ideation / Homicidal Ideation Outpatient Attender: Castro ColonAdmitter : JONNATHAN TRACY MDConsultant: JONNATHAN TRACY MD 02/27/2021 08:12:00 PM EDT Suicidal Ideation / H omicidal Ideation [facility] Suicidal Ideation / Homicidal Ideation Outpatient Attender: JONNATHAN Bonilla tter: JONNATHAN TRACY MDConsultant: JONNATHAN TRACY MD 02/27/2021 08:12:00 PM EDT Suicidal Ideation / [facility]micidal Ideation [facility] Suicidal Ideation / Homicidal Ideation Outpatient Attender: JONNATHAN Bonilla tter: JONNATHAN TRACY MDConsultant: JONNATHAN TRACY MD 02/27/2021 08:12:00 PM EDT Suicidal Ideation / H omicidal Ideation [facility] Suicidal Ideation / Homicidal Ideation Outpatient Attender: JONNATHAN Bonilla tter: JONNATHAN TRACY MDConsultant: JONNATHAN TRACY MD 02/27/2021 08:12:00 PM EDT Suicidal Ideation / H omicidal Ideation [facility] Suicidal Ideation / Homicidal Ideation Outpatient Attender: Castro ColonAdmitter : JONNATHAN TRACY MDConsultant: JONNATHAN TRACY MD 02/27/2021 08:12:00 PM EDT Suicidal Ideation / H omicidal Ideation [facility] Suicidal Ideation / Homicidal Ideation Outpatient Attender: Castro ColonAdmitter : JONNATHAN TRACY MDConsultant: JONNATHAN TRACY MD 02/27/2021 08:12:00 PM EDT Suicidal Ideation / H omicidal Ideation [facility] Suicidal Ideation / Homicidal Ideation Outpatient Attender: JONNATHAN TRACY MDAdmi tter: JONNATHAN TRACY MDConsultant: JONNATHAN TRACY MD 02/27/2021 08:12:00 PM EDT Suicidal Ideation / H omicidal Ideation [facility] Suicidal Ideation / Homicidal Ideation Outpatient Attender: Rambo Pedroza mitter: JONNATHAN TRACY MDConsultant: JONNATHAN TRACY MD 02/27/2021 08:12:00 PM EDT Suicidal Ideation / H omicidal Ideation [facility] Suicidal Ideation / Homicidal Ideation Outpatient Attender: ANSELMO APONTE NP [facility] Mike garcía 02/12/2021 10:30:00 AM EDT - 02/12/2021 10:30:00 AM EDT [facility] ([facility]) Attender: ANSELMO APONTE NP 02/12/2021 12:00:00 AM EDT [facility] ([facility]) Outpatient Attender: ANSELMO APONTE NP [facility] Mike garcía 02/07/2021 11:30:00 AM EDT - 02/07/2021 11:30:00 AM EDT [facility] ([facility]) Attender: ANSELMO APONTE NP 02/07/2021 12:00:00 AM EDT [facility] ([facility]) Brief Individual Psychotherapy - 30 min Attender: Gina yun [facility] Maria Alejandra 02/01/2021 02:00:00 AM EDT - 02/01/2021 02:00:00 AM EDT [facility] ([facility]) Attender: Gina Nash 02/01/2021 12:00:00 AM EDT [facility] ([facility]) Injectable Psychotropic Medication Administration (Inj ection Only) Attender: Thalia Carreno [facility] Maria Alejandra 01/23/2021 10:00:00 AM EDT - 01/23/2021 10:00:00 AM EDT [facility] ([facility]) Outpatient Attender: ANSELMO APONTE NP [facility] Mike garcía 01/23/2021 09:15:00 AM EDT - 01/23/2021 09:15:00 AM EDT [facility] ([facility]) Attender: ANSELMO APONTE NP 01/23/2021 12:00:00 AM EDT [facility] ([facility]) Attender: Thalia Carreno 01/23/2021 12:00:00 AM EDT [facility] ([facility]) Injectable Medication Administration w/ Monitoring & E ducation Attender: Pam Juarez [facility] 01/18/2021 11:00:00 AM EDT - 01/18/2021 11:00:00 AM EDT [facility] ([facility]) Attender: Pam Juarez 01/18/2021 12:00:00 AM EDT [facility] ([facility]) Outpatient Attender: ANSLEMO APONTE NP [facility] Mike garcía 01/17/2021 09:00:00 AM EDT - 01/17/2021 09:00:00 AM EDT [facility] ([facility]) Attender: ANSELMO APONTE NP 01/17/2021 12:00:00 AM EDT [facility] ([facility]) Outpatient Attender: ANSELMO APONTE NP [facility] Mike garcía 01/01/2021 02:30:00 AM EST - 01/01/2021 02:30:00 AM EST [facility] ([facility]) Attender: ANSELMO APONTE NP 01/01/2021 12:00:00 AM EST [facility] ([facility]) Injectable Psychotropic Medication Administration (Inj ection Only) Attender: Jossie Marcelino [facility] 12/28/2020 10:30:00 AM EST - 12/28/2020 10:30:00 AM EST [facility] ([facility]) Attender: Jossie Marcelino 12/28/2020 12:00:00 AM EST [facility] ([facility]) Outpatient Attender: Victorino Escobar MD [facility] 12/20/2020 09:30:00 AM EST - 12/20/2020 09:30:00 AM EST [facility] ([facility]) Attender: Victorino Esocbar MD 12/20/2020 12:00:00 AM EST [facility] ([facility]) Outpatient Attender: Victorino Escobar MD [facility] Mike garcía 12/06/2020 12:30:00 PM EST - 12/06/2020 12:30:00 PM EST [facility] ([facility]) Attender: Victorino Escobar MD 12/06/2020 12:00:00 AM EST [facility] ([facility]) Injectable Medication Administration w/ Monitoring & E ducation Attender: ORGANIZATION NPI ALIASES [facility] 11/15/2020 11:15: 00 AM EST - 11/15/2020 11:15:00 AM EST [facility] ([facility]) Outpatient Attender: Victorino Escobar MD [facility] raquel 11/15/2020 11:00:00 AM EST - 11/15/2020 11:00:00 AM EST [facility] ([facility]) Attender: ORGANIZATION NPI ALIASES * 11/15/2020 12:00:00 AM EST [facility] ([facility]) Attender: Victorino Escobar MD 11/15/2020 12:00:00 AM EST [facility] ([facility]) Injectable Psychotropic Medication Administration (Inj ection Only) Attender: Jossy Mejia [facility] 10/18/2020 10:30:00 AM EST - 10/18/2020 10:30:00 AM EST [facility] ([facility]) Attender: Jossy Mejia 10/18/2020 12:00:00 AM EST [facility] ([facility]) Injectable Psychotropic Medication Administration (Inj ection Only) Attender: Jossy Mejia [facility] 10/15/2020 11:00:00 AM EST - 10/15/2020 11:00:00 AM EST [facility] ([facility]) Attender: Jossy Mejia 10/15/2020 12:00:00 AM EST [facility] ([facility]) Injectable Psychotropic Medication Administration (Inj ection Only) Attender: Jossy Mejia [facility] 10/04/2020 10:30:00 AM EST - 10/04/2020 10:30:00 AM EST [facility] ([facility]) Outpatient Attender: KALLI MOLINAURSZULA [facility] ail 10/04/2020 10:00:00 AM EST - 10/04/2020 10:00:00 AM EST [facility] ([facility]) Attender: Jossy Mejia 10/04/2020 12:00:00 AM EST [facility] ([facility]) Attender: KALLI MOLINAURSZULA 10/04/2020 12:00: 00 AM EST [facility] ([facility]) Outpatient Referrer: PROVIDER [facility] [place] 09/22/2020 0 2:27:00 PM EST schizophrenia, hallucinations, substance abuse [facility] schizophrenia, hallucinations, substance abuse Injectable Psychotropic Medication Administration (Inj ection Only) Attender: Jossy Mejia [facility] 09/12/2020 09:30:00 AM EST - 09/12/2020 09:30:00 AM EST [facility] ([facility]) Outpatient Attender: KALLI MOLINAURSZULA [facility] 09/12/2020 09:00:00 AM EST - 09/12/2020 09:00:00 AM EST [facility] ([facility]) Attender: KALLI MOLNIAURSZULA 09/12/2020 12:00: 00 AM EST [facility] ([facility]) Attender: Jossy Mejia 09/12/2020 12:00:00 AM EST [facility] ([facility]) Outpatient Attender: KALLI MOLINAURSZULA [facility] ail 08/10/2020 02:00:00 AM EDT - 08/10/2020 02:00:00 AM EDT [facility] ([facility]) Attender: KALLI IGLESIAS FPMHNP 08/10/2020 12:00: 00 AM EDT [facility] ([facility]) Injectable Psychotropic Medication Administration (Inj ection Only) Attender: Jossy Jackteena [facility] 07/13/2020 02:00:00 AM EDT - 07/13/2020 02:00:00 AM EDT [facility] ([facility]) Attender: Jossy Mejia 07/13/2020 12:00:00 AM EDT [facility] ([facility]) Outpatient Attender: Pasha MOLINA 07/12/2020 02:46:50 PM EDT [facility] Functional Status Medications Medication Brand Name Start Date Product Form Dose Route Admi nistrative Instructions Pharmacy Instructions Status Indications Reaction Description Data Source(s) Prazosin 1 MG Oral Capsule prazosin 07/10/2021 12:00:00 AM EDT 1 mg by mouth completed <td ID="Medicat ionRxNorm_4">327333</td><td ID="MedicationMedication_4">prazosin</td><td ID="MedicationRoute_4">by mouth</td><td ID="MedicationRouteConcept_4">H02503</td><td ID="MedicationStartDate_4">07/10/2021</td><td ID="MedicationStopDate_4">08/09/2021</td><td ID="MedicationDosageFrequency_4">at bedtime</td><td ID="MedicationDuration_4">30</td><td ID="MedicationFormulaStrength_4">1 mg</td><td ID="MedicationDosageForm_4">capsule</td><td ID="MedicationDosageFormCode_4"></td><td ID="MedicationDosageDescription_4"></td><td ID="MedicationMedicationId_4">[id number]</td><td ID="MedicationAccount_4">[id number]</td><td ID="MedicationNpid_4">[id number]</td><td ID="MedicationAuthorFirstName_4">Anselmo</td><td ID="MedicationAuthorLastName_4">Amilcar</td><td ID="MedicationTaxonomyCode_4">[id number]</td><td ID="MedicationTaxonomyDesc_4">Nurse Practitioner</td><td ID="MedicationPhoneNumber_4">[phone]</td> [facility] olanzapine 5 MG Oral Tablet [Zyprexa] Zyprexa 05/23/2021 12:00:00 AM EDT 5 mg by mouth completed <td ID="Medica tionRxNorm_2">679937</td><td ID="MedicationMedication_2">Zyprexa</td><td ID="MedicationRoute_2">by mouth</td><td ID="MedicationRouteConcept_2">G36765</td><td ID="MedicationStartDate_2">05/23/2021</td><td ID="MedicationStopDate_2">08/09/2021</td><td ID="MedicationDosageFrequency_2">at bedtime</td><td ID="MedicationDuration_2">30</td><td ID="MedicationFormulaStrength_2">5 mg</td><td ID="MedicationDosageForm_2">tablet</td><td ID="MedicationDosageFormCode_2"></td><td ID="MedicationDosageDescription_2"></td><td ID="MedicationMedicationId_2">[id number]</td><td ID="MedicationAccount_2">[id number]</td><td ID="MedicationNpid_2">[id number]</td><td ID="MedicationAuthorFirstName_2">Anselmo</td><td ID="MedicationAuthorLastName_2">Amilcar</td><td ID="MedicationTaxonomyCode_2">[id number]</td><td ID="MedicationTaxonomyDesc_2">Nurse Practitioner</td><td ID="MedicationPhoneNumber_2">[phone]</td> [facility] ([facility]) benztropine mesylate 1 MG Oral Tablet benztropine 05/23/2021 12:00 :00 AM EDT 1 mg by mouth completed <td ID="Me dicationRxNorm_3">061029</td><td ID="MedicationMedication_3">benztropine</td><td ID="MedicationRoute_3">by mouth</td><td ID="MedicationRouteConcept_3">C53506</td><td ID="MedicationStartDate_3">05/23/2021</td><td ID="MedicationStopDate_3">08/09/2021</td><td ID="MedicationDosageFrequency_3">at bedtime</td><td ID="MedicationDuration_3">30</td><td ID="MedicationFormulaStrength_3">1 mg</td><td ID="MedicationDosageForm_3">tablet</td><td ID="MedicationDosageFormCode_3"></td><td ID="MedicationDosageDescription_3"></td><td ID="MedicationMedicationId_3">[id number]</td><td ID="MedicationAccount_3">[id number]</td><td ID="MedicationNpid_3">[id number]</td><td ID="MedicationAuthorFirstName_3">Anselmo</td><td ID="MedicationAuthorLastName_3">Amilcar</td><td ID="MedicationTaxonomyCode_3">[id number]</td><td ID="MedicationTaxonomyDesc_3">Nurse Practitioner</td><td ID="MedicationPhoneNumber_3">[phone]</td> [facility] ([facility]) 1.5 ML paliperidone palmitate 156 MG/ML Prefilled Syri nge [Invega] Invega Sustenna 04/16/2021 12:00:00 AM EDT 234 mg/1.5 compl eted <td ID="MedicationRxNorm_1">859727</td><td ID="MedicationMedication_1">Invega Sustenna</td><td ID="MedicationRoute_1"></td><td ID="MedicationRouteConcept_1"></td><td ID="MedicationStartDate_1">04/16/2021</td><td ID="MedicationStopDate_1"></td><td ID="MedicationDosageFrequency_1"></td><td ID="MedicationDuration_1"></td><td ID="MedicationFormulaStrength_1">234 mg/1.5 mL</td><td ID="MedicationDosageForm_1">syringe</td><td ID="MedicationDosageFormCode_1"></td><td ID="MedicationDosageDescription_1"> </td><td ID="MedicationMedicationId_1">[id number]</td><td ID="MedicationAccount_1">[id number]</td><td ID="MedicationNpid_1">[id number]</td><td ID="MedicationAuthorFirstName_1">Anselmo</td><td ID="MedicationAuthorLastName_1">Amilcar</td><td ID="MedicationTaxonomyCode_1">[id number]</td><td ID="MedicationTaxonomyDesc_1">Nurse Practitioner</td><td ID="MedicationPhoneNumber_1">[phone]</td> [facility] ([facility]) 2.625 ML paliperidone palmitate 312 MG/ML Prefilled Sy ringe [Invega] Invega Trinza 04/03/2021 12:00:00 AM EDT 819 mg/2.625 compl eted <td ID="MedicationRxNorm_3">0681658</td><td ID="MedicationMedication_3">Invega Trinza</td><td ID="MedicationRoute_3">intramuscularly</td><td ID="MedicationRouteConcept_3"></td><td ID="MedicationStartDate_3">04/03/2021</td><td ID="MedicationStopDate_3">07/02/2021</td><td ID="MedicationDosageFrequency_3">every three months</td><td ID="MedicationDuration_3">90</td><td ID="MedicationFormulaStrength_3">819 mg/2.625 mL</td><td ID="MedicationDosageForm_3">syringe</td><td ID="MedicationDosageFormCode_3"></td><td ID="MedicationDosageDescription_3"></td><td ID="MedicationMedicationId_3">[id number]</td><td ID="MedicationAccount_3">[id number]</td><td ID="MedicationNpid_3">[id number]</td><td ID="MedicationAuthorFirstName_3">Anselmo</td><td ID="MedicationAuthorLastName_3">Amilcar</td><td ID="MedicationTaxonomyCode_3">[id number]</td><td ID="MedicationTaxonomyDesc_3"> Nurse Practitioner</td><td ID="MedicationPhoneNumber_3">[phone]</td> [facility] ([facility]) 2.625 ML paliperidone palmitate 312 MG/ML Prefilled Sy ringe [Invega] Invsuleiman Quintanillaza 04/03/2021 12:00:00 AM EDT 819 mg/2.625 compl eted <td ID="MedicationRxNorm_4">[id number]</td><td ID="MedicationMedication_4">Invega Trinza</td><td ID="MedicationRoute_4">intramuscularly</td><td ID="MedicationRouteConcept_4"></td><td ID="MedicationStartDate_4">04/03/2021</td><td ID="MedicationStopDate_4">07/02/2021</td><td ID="MedicationDosageFrequency_4">every three months</td><td ID="MedicationDuration_4">90</td><td ID="MedicationFormulaStrength_4">819 mg/2.625 mL</td><td ID="MedicationDosageForm_4">syringe</td><td ID="MedicationDosageFormCode_4"></td><td ID="MedicationDosageDescription_4"></td><td ID="MedicationMedicationId_4">[id number]</td><td ID="MedicationAccount_4">[id number]</td><td ID="MedicationNpid_4">[id number]</td><td ID="MedicationAuthorFirstName_4">Anselmo</td><td ID="MedicationAuthorLastName_4">Amilcar</td><td ID="MedicationTaxonomyCode_4">[id number]</td><td ID="MedicationTaxonomyDesc_4"> Nurse Practitioner</td><td ID="MedicationPhoneNumber_4">[phone]</td> [facility] ([facility]) haloperidol decanoate haloperidol decanoate 04/03/2021 12:00:00 AM EDT 100 mg/mL completed <td ID="Me dicationRxNorm_2">9246599</td><td ID="MedicationMedication_2">haloperidol decanoate</td><td ID="MedicationRoute_2">intramuscularly</td><td ID="MedicationRouteConcept_2"> </td><td ID="MedicationStartDate_2">04/03/2021</td><td ID="MedicationStopDate_2">04/03/2021</td><td ID="MedicationDosageFrequency_2">every four weeks</td><td ID="MedicationDuration_2">28</td><td ID="MedicationFormulaStrength_2">100 mg/mL</td><td ID="MedicationDosageForm_2">solution</td><td ID="MedicationDosageFormCode_2"></td><td ID="MedicationDosageDescription_2"></td><td ID="MedicationMedicationId_2">[id number]</td><td ID="MedicationAccount_2">[id number]</td><td ID="MedicationNpid_2">[id number]</td><td ID="MedicationAuthorFirstName_2">Anselmo</td><td ID="MedicationAuthorLastName_2">Amilcar</td><td ID="MedicationTaxonomyCode_2">[id number]</td><td ID="MedicationTaxonomyDesc_2"> Nurse Practitioner</td><td ID="MedicationPhoneNumber_2">[phone]</td> [facility] ([facility]) benztropine mesylate 1 MG Oral Tablet benztropine 04/03/2021 12:00 :00 AM EDT 1 mg by mouth completed <td ID="Me dicationRxNorm_2">539239</td><td ID="MedicationMedication_2">benztropine</td><td ID="MedicationRoute_2">by mouth</td><td ID="MedicationRouteConcept_2">B87433</td><td ID="MedicationStartDate_2">04/03/2021</td><td ID="MedicationStopDate_2">05/03/2021</td><td ID="MedicationDosageFrequency_2">at bedtime</td><td ID="MedicationDuration_2">30</td><td ID="MedicationFormulaStrength_2">1 mg</td><td ID="MedicationDosageForm_2">tablet</td><td ID="MedicationDosageFormCode_2"></td><td ID="MedicationDosageDescription_2"></td><td ID="MedicationMedicationId_2">[id number]</td><td ID="MedicationAccount_2">[id number]</td><td ID="MedicationNpid_2">[id number]</td><td ID="MedicationAuthorFirstName_2">Anselmo</td><td ID="MedicationAuthorLastName_2">Amilcar</td><td ID="MedicationTaxonomyCode_2">[id number]</td><td ID="MedicationTaxonomyDesc_2">Nurse Practitioner</td><td ID="MedicationPhoneNumber_2">[phone]</td> [facility] ([facility]) olanzapine 5 MG Oral Tablet [Zyprexa] Zyprexa 04/03/2021 12:00:00 AM EDT 5 mg by mouth completed <td ID="Medica tionRxNorm_1">766454</td><td ID="MedicationMedication_1">Zyprexa</td><td ID="MedicationRoute_1">by mouth</td><td ID="MedicationRouteConcept_1">Y07093</td><td ID="MedicationStartDate_1">04/03/2021</td><td ID="MedicationStopDate_1">05/03/2021</td><td ID="MedicationDosageFrequency_1">at bedtime</td><td ID="MedicationDuration_1">30</td><td ID="MedicationFormulaStrength_1">5 mg</td><td ID="MedicationDosageForm_1">tablet</td><td ID="MedicationDosageFormCode_1"></td><td ID="MedicationDosageDescription_1"></td><td ID="MedicationMedicationId_1">[id number]</td><td ID="MedicationAccount_1">[id number]</td><td ID="MedicationNpid_1">[id number]</td><td ID="MedicationAuthorFirstName_1">Anselmo</td><td ID="MedicationAuthorLastName_1">Amilcar</td><td ID="MedicationTaxonomyCode_1">[id number]</td><td ID="MedicationTaxonomyDesc_1">Nurse Practitioner</td><td ID="MedicationPhoneNumber_1">[phone]</td> [facility] ([facility]) 2.625 ML paliperidone palmitate 312 MG/ML Prefilled Sy ringe [Invega] Invega Trinza 04/03/2021 12:00:00 AM EDT 819 mg/2.625 compl eted <td ID="MedicationRxNorm_5">[id number]</td><td ID="MedicationMedication_5">Invega Trinza</td><td ID="MedicationRoute_5">intramuscularly</td><td ID="MedicationRouteConcept_5"></td><td ID="MedicationStartDate_5">04/03/2021</td><td ID="MedicationStopDate_5">07/02/2021</td><td ID="MedicationDosageFrequency_5">every three months</td><td ID="MedicationDuration_5">90</td><td ID="MedicationFormulaStrength_5">819 mg/2.625 mL</td><td ID="MedicationDosageForm_5">syringe</td><td ID="MedicationDosageFormCode_5"></td><td ID="MedicationDosageDescription_5"></td><td ID="MedicationMedicationId_5">[id number]</td><td ID="MedicationAccount_5">[id number]</td><td ID="MedicationNpid_5">[id number]</td><td ID="MedicationAuthorFirstName_5">Anselmo</td><td ID="MedicationAuthorLastName_5">Amilcar</td><td ID="MedicationTaxonomyCode_5">[id number]</td><td ID="MedicationTaxonomyDesc_5"> Nurse Practitioner</td><td ID="MedicationPhoneNumber_5">[phone]</td> [facility] ([facility]) benztropine mesylate 1 MG Oral Tablet benztropine 04/03/2021 12:00 :00 AM EDT 1 mg by mouth completed <td ID="Me dicationRxNorm_4">544526</td><td ID="MedicationMedication_4">benztropine</td><td ID="MedicationRoute_4">by mouth</td><td ID="MedicationRouteConcept_4">Y58979</td><td ID="MedicationStartDate_4">04/03/2021</td><td ID="MedicationStopDate_4">05/03/2021</td><td ID="MedicationDosageFrequency_4">at bedtime</td><td ID="MedicationDuration_4">30</td><td ID="MedicationFormulaStrength_4">1 mg</td><td ID="MedicationDosageForm_4">tablet</td><td ID="MedicationDosageFormCode_4"></td><td ID="MedicationDosageDescription_4"></td><td ID="MedicationMedicationId_4">[id number]</td><td ID="MedicationAccount_4">[id number]</td><td ID="MedicationNpid_4">[id number]</td><td ID="MedicationAuthorFirstName_4">Anselmo</td><td ID="MedicationAuthorLastName_4">Amilcar</td><td ID="MedicationTaxonomyCode_4">[id number]</td><td ID="MedicationTaxonomyDesc_4">Nurse Practitioner</td><td ID="MedicationPhoneNumber_4">[phone]</td> [facility] ([facility]) olanzapine 5 MG Oral Tablet [Zyprexa] Zyprexa 04/03/2021 12:00:00 AM EDT 5 mg by mouth completed <td ID="Medica tionRxNorm_3">312490</td><td ID="MedicationMedication_3">Zyprexa</td><td ID="MedicationRoute_3">by mouth</td><td ID="MedicationRouteConcept_3">K66610</td><td ID="MedicationStartDate_3">04/03/2021</td><td ID="MedicationStopDate_3">05/03/2021</td><td ID="MedicationDosageFrequency_3">at bedtime</td><td ID="MedicationDuration_3">30</td><td ID="MedicationFormulaStrength_3">5 mg</td><td ID="MedicationDosageForm_3">tablet</td><td ID="MedicationDosageFormCode_3"></td><td ID="MedicationDosageDescription_3"></td><td ID="MedicationMedicationId_3">[id number]</td><td ID="MedicationAccount_3">[id number]</td><td ID="MedicationNpid_3">[id number]</td><td ID="MedicationAuthorFirstName_3">Anselmo</td><td ID="MedicationAuthorLastName_3">Amilcar</td><td ID="MedicationTaxonomyCode_3">[id number]</td><td ID="MedicationTaxonomyDesc_3">Nurse Practitioner</td><td ID="MedicationPhoneNumber_3">[phone]</td> [facility] ([facility]) 2.625 ML paliperidone palmitate 312 MG/ML Prefilled Sy ringe [Invega] Invega Trinza 04/03/2021 12:00:00 AM EDT 819 mg/2.625 compl eted <td ID="MedicationRxNorm_2">[id number]</td><td ID="MedicationMedication_2">Invega Trinza</td><td ID="MedicationRoute_2">intramuscularly</td><td ID="MedicationRouteConcept_2"></td><td ID="MedicationStartDate_2">04/03/2021</td><td ID="MedicationStopDate_2">07/02/2021</td><td ID="MedicationDosageFrequency_2">every three months</td><td ID="MedicationDuration_2">90</td><td ID="MedicationFormulaStrength_2">819 mg/2.625 mL</td><td ID="MedicationDosageForm_2">syringe</td><td ID="MedicationDosageFormCode_2"></td><td ID="MedicationDosageDescription_2"></td><td ID="MedicationMedicationId_2">[id number]</td><td ID="MedicationAccount_2">[id number]</td><td ID="MedicationNpid_2">[id number]</td><td ID="MedicationAuthorFirstName_2">Anselmo</td><td ID="MedicationAuthorLastName_2">Amilcar</td><td ID="MedicationTaxonomyCode_2">[id number]</td><td ID="MedicationTaxonomyDesc_2"> Nurse Practitioner</td><td ID="MedicationPhoneNumber_2">[phone]</td> [facility] ([facility]) haloperidol decanoate haloperidol decanoate 10/04/2020 12:00:00 AM EST 100 mg/mL completed <td ID="Me dicationRxNorm_1">2041990</td><td ID="MedicationMedication_1">haloperidol decanoate</td><td ID="MedicationRoute_1">intramuscularly</td><td ID="MedicationRouteConcept_1"> </td><td ID="MedicationStartDate_1">10/04/2020</td><td ID="MedicationStopDate_1">04/03/2021</td><td ID="MedicationDosageFrequency_1">as directed</td><td ID="MedicationDuration_1">21</td><td ID="MedicationFormulaStrength_1">100 mg/mL</td><td ID="MedicationDosageForm_1">solution</td><td ID="MedicationDosageFormCode_1"></td><td ID="MedicationDosageDescription_1"></td><td ID="MedicationMedicationId_1">[id number]</td><td ID="MedicationAccount_1">[id number]</td><td ID="MedicationNpid_1">[id number]</td><td ID="MedicationAuthorFirstName_1">Victorino</td><td ID="MedicationAuthorLastName_1">Escobar</td><td ID="MedicationTaxonomyCode_1">[id number]</td><td ID="MedicationTaxonomyDesc_1"> Psychiatry</td><td ID="MedicationPhoneNumber_1">[phone]</td> [facility] ([facility]) 100 mg/mL 10/02/2020 12:00:00 AM EST [...] 50 mg by mouth completed <td ID="Medic ationRxNorm_5">184682</td><td ID="MedicationMedication_5">trazodone</td><td ID="MedicationRoute_5">by mouth</td><td ID="MedicationRouteConcept_5">T50560</td><td ID="MedicationStartDate_5">09/12/2020</td><td ID="MedicationStopDate_5">10/12/2020</td><td ID="MedicationDosageFrequency_5">every night</td><td ID="MedicationDuration_5">30</td><td ID="MedicationFormulaStrength_5">50 mg</td><td ID="MedicationDosageForm_5">tablet</td><td ID="MedicationDosageFormCode_5"></td><td ID="MedicationDosageDescription_5"></td><td ID="MedicationMedicationId_5">[id number]</td><td ID="MedicationAccount_5">[id number]</td><td ID="MedicationNpid_5">[id number]</td><td ID="MedicationAuthorFirstName_5">Kalli</td><td ID="MedicationAuthorLastName_5">Egorho</td><td ID="MedicationTaxonomyCode_5">[id number]</td><td ID="MedicationTaxonomyDesc_5">Nurse Practitioner</td><td ID="MedicationPhoneNumber_5">[phone]</td> [facility] ([facility]) Trazodone Hydrochloride 50 MG Oral Tablet trazodone 2019 12:00:00 AM EST 50 mg by mouth completed <td ID="Medic ationRxNorm_1">780222</td><td ID="MedicationMedication_1">trazodone</td><td ID="MedicationRoute_1">by mouth</td><td ID="MedicationRouteConcept_1">W86050</td><td ID="MedicationStartDate_1">09/12/2020</td><td ID="MedicationStopDate_1">10/12/2020</td><td ID="MedicationDosageFrequency_1">every night</td><td ID="MedicationDuration_1">30</td><td ID="MedicationFormulaStrength_1">50 mg</td><td ID="MedicationDosageForm_1">tablet</td><td ID="MedicationDosageFormCode_1"></td><td ID="MedicationDosageDescription_1"></td><td ID="MedicationMedicationId_1">[id number]</td><td ID="MedicationAccount_1">[id number]</td><td ID="MedicationNpid_1">[id number]</td><td ID="MedicationAuthorFirstName_1">Kalli</td><td ID="MedicationAuthorLastName_1">Egorho</td><td ID="MedicationTaxonomyCode_1">[id number]</td><td ID="MedicationTaxonomyDesc_1">Nurse Practitioner</td><td ID="MedicationPhoneNumber_1">[phone]</td> [facility] ([facility]) Haldol Decanoate Haldol Decanoate 09/12/2020 12:00:00 AM EST 100 mg/mL completed <td ID="MedicationRx Norm_4">[id number]</td><td ID="MedicationMedication_4">Haldol Decanoate</td><td ID="MedicationRoute_4">intramuscularly</td><td ID="MedicationRouteConcept_4"></td><td ID="MedicationStartDate_4">09/12/2020</td><td ID="MedicationStopDate_4">09/15/2020</td><td ID="MedicationDosageFrequency_4">as directed</td><td ID="MedicationDuration_4">1</td><td ID="MedicationFormulaStrength_4">100 mg/mL</td><td ID="MedicationDosageForm_4">solution</td><td ID="MedicationDosageFormCode_4"></td><td ID="MedicationDosageDescription_4"></td><td ID="MedicationMedicationId_4">[id number]</td><td ID="MedicationAccount_4">[id number]</td><td ID="MedicationNpid_4">[id number]</td><td ID="MedicationAuthorFirstName_4">Kalli</td><td ID="MedicationAuthorLastName_4">Egorho</td><td ID="MedicationTaxonomyCode_4">[id number]</td><td ID="MedicationTaxonomyDesc_4">Nurse Practitioner</td><td ID="MedicationPhoneNumber_4">[phone]</td> [facility] ([facility]) quetiapine 300 MG Oral Tablet quetiapine 01/06/2020 12:00:00 AM EST 300 mg completed <td ID="Medicat ionRxNorm_4">829350</td><td ID="MedicationMedication_4">quetiapine</td><td ID="MedicationRoute_4"></td><td ID="MedicationRouteConcept_4"></td><td ID="MedicationStartDate_4">01/06/2020</td><td ID="MedicationStopDate_4">01/05/2021</td><td ID="MedicationDosageFrequency_4">at bedtime</td><td ID="MedicationDuration_4">30</td><td ID="MedicationFormulaStrength_4">300 mg</td><td ID="MedicationDosageForm_4">tablet</td><td ID="MedicationDosageFormCode_4"></td><td ID="MedicationDosageDescription_4"></td><td ID="MedicationMedicationId_4">[id number]</td><td ID="MedicationAccount_4">[id number]</td><td ID="MedicationNpid_4">[id number]</td><td ID="MedicationAuthorFirstName_4">Dane</td><td ID="MedicationAuthorLastName_4">Westland</td><td ID="MedicationTaxonomyCode_4">[id number]</td><td ID="MedicationTaxonomyDesc_4">Psychiatric/Mental Health</td><td ID="MedicationPhoneNumber_4">[phone]</td> [facility] ([facility]) quetiapine 300 MG Oral Tablet quetiapine 01/06/2020 12:00:00 AM EST 300 mg completed <td ID="Medicat ionRxNorm_1">706210</td><td ID="MedicationMedication_1">quetiapine</td><td ID="MedicationRoute_1"></td><td ID="MedicationRouteConcept_1"></td><td ID="MedicationStartDate_1">01/06/2020</td><td ID="MedicationStopDate_1">01/05/2021</td><td ID="MedicationDosageFrequency_1">at bedtime</td><td ID="MedicationDuration_1">30</td><td ID="MedicationFormulaStrength_1">300 mg</td><td ID="MedicationDosageForm_1">tablet</td><td ID="MedicationDosageFormCode_1"></td><td ID="MedicationDosageDescription_1"></td><td ID="MedicationMedicationId_1">44976</td><td ID="MedicationAccount_1">[id number]</td><td ID="MedicationNpid_1">[id number]</td><td ID="MedicationAuthorFirstName_1">Dane</td><td ID="MedicationAuthorLastName_1">Westland</td><td ID="MedicationTaxonomyCode_1">[id number]</td><td ID="MedicationTaxonomyDesc_1">Psychiatric/Mental Health</td><td ID="MedicationPhoneNumber_1">[phone]</td> [facility] ([facility]) quetiapine 300 MG Oral Tablet quetiapine 01/06/2020 12:00:00 AM EST 300 mg completed <td ID="Medicat ionRxNorm_5">203495</td><td ID="MedicationMedication_5">quetiapine</td><td ID="MedicationRoute_5"></td><td ID="MedicationRouteConcept_5"></td><td ID="MedicationStartDate_5">01/06/2020</td><td ID="MedicationStopDate_5">01/05/2021</td><td ID="MedicationDosageFrequency_5">at bedtime</td><td ID="MedicationDuration_5">30</td><td ID="MedicationFormulaStrength_5">300 mg</td><td ID="MedicationDosageForm_5">tablet</td><td ID="MedicationDosageFormCode_5"></td><td ID="MedicationDosageDescription_5"></td><td ID="MedicationMedicationId_5">78509</td><td ID="MedicationAccount_5">[id number]</td><td ID="MedicationNpid_5">[id number]</td><td ID="MedicationAuthorFirstName_5">Dane</td><td ID="MedicationAuthorLastName_5">Westland</td><td ID="MedicationTaxonomyCode_5">[id number]</td><td ID="MedicationTaxonomyDesc_5">Psychiatric/Mental Health</td><td ID="MedicationPhoneNumber_5">[phone]</td> [facility] ([facility]) Aristada Aristada 12/20/2019 12:00:00 AM EST mg/3.9 completed <td ID="MedicationRxNorm_3">[id number]</td><td ID="MedicationMedication_3">Aristada</td><td ID="MedicationRoute_3">intramuscularly</td><td ID="MedicationRouteConcept_3"></td><td ID="MedicationStartDate_3">12/20/2019</td><td ID="MedicationStopDate_3">09/12/2020</td><td ID="MedicationDosageFrequency_3"></td><td ID="MedicationDuration_3"></td><td ID="MedicationFormulaStrength_3">1,064 mg/3.9 mL</td><td ID="MedicationDosageForm_3">suspension,extended rel syring</td><td ID="MedicationDosageFormCode_3"></td><td ID="MedicationDosageDescription_3">as directed</td><td ID="MedicationMedicationId_3">[id number]</td><td ID="MedicationAccount_3">[id number]</td><td ID="MedicationNpid_3">[id number]</td><td ID="MedicationAuthorFirstName_3">Dane</td><td ID="MedicationAuthorLastName_3">Westland</td><td ID="MedicationTaxonomyCode_3">[id number]</td><td ID="MedicationTaxonomyDesc_3"> Psychiatric/Mental Health</td><td ID="MedicationPhoneNumber_3">[phone]</td> [facility] ([facility]) Trazodone Hydrochloride 50 MG Oral Tablet trazodone 2018 12:00:00 AM EDT 50 mg by mouth completed <td ID="Medic ationRxNorm_2">682948</td><td ID="MedicationMedication_2">trazodone</td><td ID="MedicationRoute_2">by mouth</td><td ID="MedicationRouteConcept_2">N91591</td><td ID="MedicationStartDate_2">06/10/2019</td><td ID="MedicationStopDate_2">09/12/2020</td><td ID="MedicationDosageFrequency_2">at bedtime</td><td ID="MedicationDuration_2"></td><td ID="MedicationFormulaStrength_2">50 mg</td><td ID="MedicationDosageForm_2">tablet</td><td ID="MedicationDosageFormCode_2"></td><td ID="MedicationDosageDescription_2"></td><td ID="MedicationMedicationId_2">[id number]</td><td ID="MedicationAccount_2">[id number]</td><td ID="MedicationNpid_2">[id number]</td><td ID="MedicationAuthorFirstName_2">Dane</td><td ID="MedicationAuthorLastName_2">Westland</td><td ID="MedicationTaxonomyCode_2">[id number]</td><td ID="MedicationTaxonomyDesc_2">Psychiatric/Mental Health</td><td ID="MedicationPhoneNumber_2">[phone]</td> [facility] ([facility]) Amantadine Hydrochloride 100 MG Oral Capsule amantadine HCl 07/30/2017 12:00:00 AM EDT 100 mg by mouth completed <td ID="MedicationRxNorm_1">657343</td><td ID="MedicationMedication_1">amantadine HCl</td><td ID="MedicationRoute_1">by mouth</td><td ID="MedicationRouteConcept_1">D75335</td><td ID="MedicationStartDate_1">07/30/2017</td><td ID="MedicationStopDate_1">09/12/2020</td><td ID="MedicationDosageFrequency_1">every morning</td><td ID="MedicationDuration_1"></td><td ID="MedicationFormulaStrength_1">100 mg</td><td ID="MedicationDosageForm_1">capsule</td><td ID="MedicationDosageFormCode_1"></td><td ID="MedicationDosageDescription_1"></td><td ID="MedicationMedicationId_1">[id number]</td><td ID="MedicationAccount_1">[id number]</td><td ID="MedicationNpid_1">[id number]</td><td ID="MedicationAuthorFirstName_1">Dane</td><td ID="MedicationAuthorLastName_1">Westland</td><td ID="MedicationTaxonomyCode_1">[id number]</td><td ID="MedicationTaxonomyDesc_1">Psychiatric/Mental Health</td><td ID="MedicationPhoneNumber_1">[phone]</td> [facility] ([facility]) Insurance Providers Payer name Policy type / Coverage type Policy ID Covered green party ID Covered green party's relationship to shafer Policy Shafer Plan Information Medicaid S [id number] S [id number] Managed Care - Community Plan [facility] P [id number] S [id number] Medicaid S [id number] S [id number] [facility] I [id number] Self [id number] [facility] I [id number] Self [id number] [facility] I [id number] Self [id number] Managed Care - [facility] Community Plan P [id number] S [id number] Medicaid S [id number] S [id number] Managed Care - C Community Plan P [id number] S [id number] UN COMMUNITY PLAN MCDO [id number] SP [id number] [facility] MAN CRE [id number] SP [id number] [facility] [id number] SP [id number] SELF PAY [facility] OFFICE OF MENTAL HEALTH UNAVAILABLE S UNAVAILABLE MEDICAID [id number] S [id number] [facility] OFFICE OF MENTAL HEALTH [id number] S [id number] [employer] COMMUNITY PLAN MCDO [id number] SP [id number] [facility] OFFICE OF MENTAL HEALTH [id number] S [id number] [facility] [id number] SP [id number] SELF PAY ONLY [id number] SP [id number] [facility] [id number] SP [id number] SELF PAY SP [facility]) O [id number] S [id number] [facility] [id number] SP [id number] Self Pay P UNAVAILABLE S UNAVAILA BLE [facility]) O [id number] S [id number] 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, uncomplicated F16.10 - Hallucinogen abuse, uncomplicated Diagnosis 02/27/2021 08:12:00 PM EDT [facility] F25.9 Schizoaffective disorder, unspecified F2 5.9 - Schizoaffective disorder, unspecified Diagnosis 02/27/2021 08:12:00 PM EDT [facility] Z13.9 Encounter for screening, unspecified Z13 .9 - Encounter for screening, unspecified Diagnosis 02/27/2021 08:12:00 PM EDT [facility] schizophrenia, hallucinations, substance abuse schizophrenia, hallucinations, substance abuse Diagnosis 09/22/2020 02:27:00 PM [facility] F15.20 Other stimulant dependence, uncomplicate d Stimulant Use Disorder, Moderate: Amphetamine-type substance Condition 07/29/2021 12:00:00 AM EDT [facility] ([facility]) F10.20 Alcohol dependence, uncomplicated Alcohol Use Disorder , Severe Condition 07/29/2021 12:00:00 AM EDT [facility] ([facility]) F17.200 Nicotine dependence, unspecified, uncomp licated Tobacco Use Disorder, Moderate Condition 07/29/2021 12:00:00 AM EDT [facility] ([facility]) F12.20 Cannabis dependence, uncomplicated Cannabis Use Disorder, Moderate Condition 07/29/2021 12:00:00 AM EDT [facility] ([facility]) F20.9 Schizophrenia, unspecified Schizophrenia Condition 07/29/2021 12:00:00 AM EDT [facility] ([facility]) Surgeries/Procedures Procedure Description Date Indications Data Source(s) Comprehensive medication services, per 15 minutes 07/29/2021 12:00:00 AM EDT - 07/29/2021 12:00:00 AM EDT [facility] ([facility]) Comprehensive medication services, per 15 minutes 07/29/2021 12:00:00 AM EDT [facility] ([facility]) Comprehensive medication services, per 15 minutes 06/24/2021 12:00:00 AM EDT - 06/24/2021 12:00:00 AM EDT [facility] ([facility]) Comprehensive medication services, per 15 minutes 06/24/2021 12:00:00 AM EDT [facility] ([facility]) THERAPEUTIC PROPHYLACTIC/DX INJECTION SUBQ/IM 05/27/2021 12:00:00 AM EDT - 05/27/2021 12:00:00 AM EDT [facility] ([facility]) THERAPEUTIC PROPHYLACTIC/DX INJECTION SUBQ/IM 05/27/20 12:00:00 AM EDT [facility] ([facility]) Brief Individual Psychotherapy - 30 min 05/13/2021 12:00:00 AM EDT - 05/13/2021 12:00:00 AM EDT [facility] ([facility]) Brief Individual Psychotherapy - 30 min 05/13/2021 12: 00:00 AM EDT [facility] ([facility]) Comprehensive medication services, per 15 minutes 04/04/2021 12:00:00 AM EDT - 04/04/2021 12:00:00 AM EDT [facility] ([facility]) Comprehensive medication services, per 15 minutes 04/03/2021 12:00:00 AM EDT [facility] ([facility]) OFFICE OUTPATIENT VISIT 15 MINUTES 04/03 12:00:00 AM EDT - 04/03/2021 12:00:00 AM EDT [facility] ([facility]) Psychotherapy ADD ON - 30 Minutes 04/03/2021 12:00:00 AM EDT [facility] ([facility]) OFFICE OUTPATIENT VISIT 15 MINUTES 04/03/2021 12:00:00 AM EDT [facility] ([facility]) OFFICE OUTPATIENT VISIT 15 MINUTES 03/27 12:00:00 AM EDT - 03/27/2021 12:00:00 AM EDT [facility] ([facility]) OFFICE OUTPATIENT VISIT 15 MINUTES 03/27/2021 12:00:00 AM EDT [facility] ([facility]) OFFICE OUTPATIENT VISIT 15 MINUTES 03/19 12:00:00 AM EDT - 03/19/2021 12:00:00 AM EDT [facility] ([facility]) OFFICE OUTPATIENT VISIT 15 MINUTES 03/19/2021 12:00:00 AM EDT [facility] ([facility]) OFFICE OUTPATIENT VISIT 15 MINUTES 02/12 12:00:00 AM EDT - 02/12/2021 12:00:00 AM EDT [facility] ([facility]) OFFICE OUTPATIENT VISIT 15 MINUTES 02/12/2021 12:00:00 AM EDT [facility] ([facility]) OFFICE OUTPATIENT VISIT 15 MINUTES 02/07 12:00:00 AM EDT - 02/07/2021 12:00:00 AM EDT [facility] ([facility]) OFFICE OUTPATIENT VISIT 15 MINUTES 02/07/2021 12:00:00 AM EDT [facility] ([facility]) Brief Individual Psychotherapy - 30 min 02/01/2021 12:00:00 AM EDT - 02/01/2021 12:00:00 AM EDT [facility] ([facility]) Brief Individual Psychotherapy - 30 min 02/01/2021 12: 00:00 AM EDT [facility] ([facility]) OFFICE OUTPATIENT VISIT 15 MINUTES 01/23 12:00:00 AM EDT - 01/23/2021 12:00:00 AM EDT [facility] ([facility]) OFFICE OUTPATIENT VISIT 15 MINUTES 01/23/2021 12:00:00 AM EDT [facility] ([facility]) THERAPEUTIC PROPHYLACTIC/DX INJECTION SUBQ/IM 01/23/2021 12:00:00 AM EDT - 01/23/2021 12:00:00 AM EDT [facility] ([facility]) THERAPEUTIC PROPHYLACTIC/DX INJECTION SUBQ/IM 01/24/20 12:00:00 AM EDT [facility] ([facility]) Comprehensive medication services, per 15 minutes 01/18/2021 12:00:00 AM EDT - 01/18/2021 12:00:00 AM EDT [facility] ([facility]) Comprehensive medication services, per 15 minutes 01/18/2021 12:00:00 AM EDT [facility] ([facility]) OFFICE OUTPATIENT VISIT 15 MINUTES 01/17 12:00:00 AM EDT - 01/17/2021 12:00:00 AM EDT [facility] ([facility]) OFFICE OUTPATIENT VISIT 15 MINUTES 01/17/2021 12:00:00 AM EDT [facility] ([facility]) MHC Telemed E/M Lvl 3--Est pt 01/01/2021 12:00:00 AM EST - 01/01/2021 12:00:00 AM EST [facility] ([facility]) MHC Telemed E/M Lvl 3--Est pt 01/01/2021 12:00:[address] [facility] ([facility]) THERAPEUTIC PROPHYLACTIC/DX INJECTION SUBQ/IM 12/28/2020 12:00:00 AM EST - 12/28/2020 12:00:00 AM EST [facility] ([facility]) THERAPEUTIC PROPHYLACTIC/DX INJECTION SUBQ/IM 12/28/19 12:00:00 AM EST [facility] ([facility]) MHC Telemed E/M Lvl 3--Est pt 12/20/2020 12:00:00 AM EST - 12/20/2020 12:00:00 AM EST [facility] ([facility]) MHC Telemed E/M Lvl 3--Est pt 12/20/2020 12:00:[address] [facility] ([facility]) MHC Telemed E/M Lvl 3--Est pt 12/06/2020 12:00:00 AM EST - 12/06/2020 12:00:00 AM EST [facility] ([facility]) MHC Telemed E/M Lvl 3--Est pt 12/06/2020 12:00:[address] [facility] ([facility]) Comprehensive medication services, per 15 minutes 11/15/2020 12:00:00 AM EST - 11/15/2020 12:00:00 AM EST [facility] ([facility]) Comprehensive medication services, per 15 minutes 11/15/2020 12:00:00 AM EST [facility] ([facility]) OFFICE OUTPATIENT VISIT 15 MINUTES 11/15 12:00:00 AM EST - 11/15/2020 12:00:00 AM EST [facility] ([facility]) OFFICE OUTPATIENT VISIT 15 MINUTES 11/15/2020 12:00:00 AM EST [facility] ([facility]) THERAPEUTIC PROPHYLACTIC/DX INJECTION SUBQ/IM 10/18/2020 12:00:00 AM EST - 10/18/2020 12:00:00 AM EST [facility] ([facility]) THERAPEUTIC PROPHYLACTIC/DX INJECTION SUBQ/IM 10/18/20 20 12:00:00 AM EST [facility] ([facility]) THERAPEUTIC PROPHYLACTIC/DX INJECTION SUBQ/IM 10/15/2020 12:00:00 AM EST - 10/15/2020 12:00:00 AM EST [facility] ([facility]) THERAPEUTIC PROPHYLACTIC/DX INJECTION SUBQ/IM 10/15/20 20 12:00:00 AM EST [facility] ([facility]) THERAPEUTIC PROPHYLACTIC/DX INJECTION SUBQ/IM 10/04/2020 12:00:00 AM EST - 10/04/2020 12:00:00 AM EST [facility] ([facility]) THERAPEUTIC PROPHYLACTIC/DX INJECTION SUBQ/IM 10/04/20 20 12:00:00 AM EST [facility] ([facility]) OFFICE OUTPATIENT VISIT 15 MINUTES 10/04 12:00:00 AM EST - 10/04/2020 12:00:00 AM EST [facility] ([facility]) OFFICE OUTPATIENT VISIT 15 MINUTES 10/04/2020 12:00:00 AM EST [facility] ([facility]) OFFICE OUTPATIENT VISIT 15 MINUTES 09/12 12:00:00 AM EST - 09/12/2020 12:00:00 AM EST [facility] ([facility]) OFFICE OUTPATIENT VISIT 15 MINUTES 09/12/2020 12:00:00 AM EST [facility] ([facility]) THERAPEUTIC PROPHYLACTIC/DX INJECTION SUBQ/IM 09/12/2020 12:00:00 AM EST - 09/12/2020 12:00:00 AM EST [facility] ([facility]) THERAPEUTIC PROPHYLACTIC/DX INJECTION SUBQ/IM 09/12/20 12:00:00 AM EST [facility] ([facility]) OFFICE OUTPATIENT VISIT 15 MINUTES 08/10 12:00:00 AM EDT - 08/10/2020 12:00:00 AM EDT [facility] ([facility]) OFFICE OUTPATIENT VISIT 15 MINUTES 08/10/2020 12:00:00 AM EDT [facility] ([facility]) THERAPEUTIC PROPHYLACTIC/DX INJECTION SUBQ/IM 07/13/2020 12:00:00 AM EDT - 07/13/2020 12:00:00 AM EDT [facility] ([facility]) THERAPEUTIC PROPHYLACTIC/DX INJECTION SUBQ/IM 07/13/20 12:00:00 AM EDT [facility] ([facility]) Results ID Date Data Source [id number] 07/19/2021 10:40:00 AM EDT [facility] Name Value Range Interpretation Code Description Data Michelle rce(s) Supporting Document(s) SARS coronavirus 2 RNA [Presence] in Res piratory specimen by OMI with probe detection NEGATIVE [facility] This lab was ordered by [facility] a nd reported by [facility]. ID Date Data Source [id number] 07/19/2021 09:50:00 AM EDT [facility] Name Value Range Interpretation Code Description Data Michelle rce(s) Supporting Document(s) SARS COVID ANTIGEN NEGATIVE [facility] a nd reported by [facility]. ID Date Data Source [id number] 06/04/2021 08:17:00 PM EDT [facility] Name Value Range Interpretation Code Description Data Michelle rce(s) Supporting Document(s) SARS coronavirus 2 RNA [Presence] in Res piratory specimen by OMI with probe detection NEGATIVE [facility] This lab was ordered by [facility] a nd reported by [facility]. ID Date Data Source [id number] 05/01/2021 01:57:00 PM EDT [facility] Name Value Range Interpretation Code Description Data Michelle rce(s) Supporting Document(s) SARS coronavirus 2 RNA [Presence] in Res piratory specimen by OMI with probe detection NEGATIVE [facility] This lab was ordered by [facility] a nd reported by [facility]. ID Date Data Source [id number] 04/19/2021 06:29:00 AM EDT [facility] Name Value Range Interpretation Code Description Data Michelle rce(s) Supporting Document(s) SARS coronavirus 2 RNA [Presence] in Res piratory specimen by OMI with probe detection NEGATIVE [facility] This lab was ordered by [facility] a nd reported by [facility]. ID Date Data Source [id number] 04/17/2021 05:50:00 PM EDT [facility] Name Value Range Interpretation Code Description Data Michelle rce(s) Supporting Document(s) SARS-CoV-2 (COVID-19) RNA [Presence] in Respiratory specimen by OMI with probe detection Not Detected [facility] This lab was ordered by [facility] and reported by [facility]. ID Date Data Source [id number] 02/28/2021 04:53:00 PM EDT [address] [address] HEALTH INFORMATION MANAGEMENT History and Physical Report : [id number] Signed Patient: Gabo Parra Acct:[id number] Unit: Low [id number] : 1980 Loc: [facility] Room/Bed: 0 Age/Sex: 40 / M ADM Date: 02/27/21 [...] charges for this visit?: Yes Inpt Consult [id number] Cons Level 1: Yes Signed By:Rambo Summers <<Signature on File>> Signed Date/Time: 02/28/21 4807 Co-Signer: Leonel Hubbard MD Co-Signed Date/Time: 02/28/21 6502 Initializing User: Rambo Summers COMPLIANCE COORDINATOR 02/28/211652 52 52 Name Value Range Interpretation Code Description Data Michelle rce(s) Supporting Document(s) ID Date Data Source [id number] 02/28/2021 10:45:00 AM EDT [facility] [address] [place] [address] HEALTH INFORMATION MANAGEMENT [facility] Psychosocial Summary : [id number] Signed Patient: Gabo Parra Acct:[id number] Unit: M [id number] : 1980 Loc: [facility] Room/Bed: 820-B Age/Sex: 40 / M ADM Date: 02/27/21 cc: General/History - Presenting Problem Presenting Problem: Social Summary/Discharge plan Presenting Problem Gabo is a40 yo AAM, extensive psych hx, also problems with substance abuse admitted on a transfer from [facility] ER brought in there by his CW as pt was feeling depressed, suicidal, also hallucinating and after abusing drugs History. tates was partially complaint with meds. Not able to name his psychiatrist in [place], not able to name the therapist. Gives h/o 5 to 6 inpt psych txs, last one few months ago, "I can't remember the place, they send me from [facility]. " Also, h'o inpt psych tx at [facility]. H/o self harm time, tried to hand [...] Person?: No Are you part of any evangelical/spirtual community?: Yes (Roman Catholic ) - Current Living/Relationship History Current Living Arrangement: House Who Do You Live With?: Mother. OK to Return Home: Yes Weapons in household: No Currently in a Relationship?: No Ever Been ?: No Any Children?: 2 - Family History Where Were You Born/Raised?: [place] Who Was in Home?: Mother, Father How [...] Reducing Risk: Complies with Tx/Meds, Future Oriented, Hinduism Beliefs Mental Status Treatment - Mental Status [...] rce(s) Supporting Document(s) ID Date Data Source [id number] 02/27/2021 04:28:00 PM EDT [facility] Name Value Range Interpretation Code Description Data Michelle rce(s) Supporting Document(s) SARS coronavirus 2 RNA [Presence] in Res piratory specimen by OMI with probe detection NEGATIVE [facility] This lab was ordered by [facility] a nd reported by [facility]. ID Date Data Source [id number] 01/23/2021 01:03:00 AM EDT [facility] Name Value Range Interpretation Code Description Data Michelle rce(s) Supporting Document(s) SARS coronavirus 2 RNA [Presence] in Res piratory specimen by OMI with probe detection NEGATIVE [facility] This lab was ordered by [facility] a nd reported by [facility]. ID Date Data Source [id number] 10/17/2020 12:19:00 AM EST [facility] Name Value Range Interpretation Code Description Data Michelle rce(s) Supporting Document(s) SARS coronavirus 2 RNA [Presence] in Res piratory specimen by OMI with probe detection [facility] This lab was ordered by [facility] a nd reported by [facility]. Procedure Social History Code Duration Value Status Description Data Source(s ) Smoking 07/29/2021 12:00:00 AM EDT Unknown if ever smoked comp leted Unknown if ever smoked [facility] ([facility]) Smoking 06/24/2021 12:00:00 AM EDT Unknown if ever smoked comp leted Unknown if ever smoked [facility] ([facility]) Smoking 05/27/2021 12:00:00 AM EDT Unknown if ever smoked comp leted Unknown if ever smoked [facility] ([facility]) Smoking 05/13/2021 12:00:00 AM EDT Unknown if ever smoked comp leted Unknown if ever smoked [facility] ([facility]) Smoking 04/04/2021 12:00:00 AM EDT Unknown if ever smoked comp leted Unknown if ever smoked [facility] ([facility]) Smoking 04/03/2021 12:00:00 AM EDT Unknown if ever smoked comp leted Unknown if ever smoked [facility] ([facility]) Smoking 03/27/2021 12:00:00 AM EDT Unknown if ever smoked comp leted Unknown if ever smoked [facility]) Smoking 03/19/2021 12:00:00 AM EDT Unknown if ever smoked comp leted Unknown if ever smoked [facility] ([facility]) Smoking 02/12/2021 12:00:00 AM EDT Unknown if ever smoked comp leted Unknown if ever smoked [facility] ([facility]) Smoking 02/07/2021 12:00:00 AM EDT Unknown if ever smoked comp leted Unknown if ever smoked [facility] ([facility]) Smoking 02/01/2021 12:00:00 AM EDT Unknown if ever smoked comp leted Unknown if ever smoked [facility] ([facility]) Smoking 01/23/2021 12:00:00 AM EDT Unknown if ever smoked comp leted Unknown if ever smoked [facility] ([facility]) Smoking 01/18/2021 12:00:00 AM EDT Unknown if ever smoked comp leted Unknown if ever smoked [facility] ([facility]) Smoking 01/17/2021 12:00:00 AM EDT Unknown if ever smoked comp leted Unknown if ever smoked [facility] ([facility]) Smoking 01/01/2021 12:00:00 AM EST Unknown if ever smoked comp leted Unknown if ever smoked [facility] ([facility]) Smoking 12/28/2020 12:00:00 AM EST Unknown if ever smoked comp leted Unknown if ever smoked [facility] ([facility]) Smoking 12/20/2020 12:00:00 AM EST Unknown if ever smoked comp leted Unknown if ever smoked [facility] ([facility]) Smoking 12/06/2020 12:00:00 AM EST Unknown if ever smoked comp leted Unknown if ever smoked [facility] ([facility]) Smoking 11/15/2020 12:00:00 AM EST Unknown if ever smoked comp leted Unknown if ever smoked [facility] ([facility]) Smoking 10/18/2020 12:00:00 AM EST Unknown if ever smoked comp leted Unknown if ever smoked [facility] ([facility]) Smoking 10/15/2020 12:00:00 AM EST Unknown if ever smoked comp leted Unknown if ever smoked [facility] ([facility]) Smoking 10/04/2020 12:00:00 AM EST Unknown if ever smoked comp leted Unknown if ever smoked [facility] ([facility]) Smoking 09/12/2020 12:00:00 AM EST Unknown if ever smoked comp leted Unknown if ever smoked [facility] ([facility]) Smoking 08/10/2020 12:00:00 AM EDT Unknown if ever smoked comp leted Unknown if ever smoked [facility] ([facility]) Smoking 07/13/2020 12:00:00 AM EDT Unknown if ever smoked comp leted Unknown if ever smoked [facility] ([facility]) Vital Signs ID Date Data Source UNK Name Value Range Interpretation Code Description Data Source(s) Body height 0.00 in Normal (applies to non-numeric resu lts) 0.00 in [facility] ([facility]) Body weight Measured 0.00 lbs Normal (applies to n on-numeric results) 0.00 lbs [facility] ([facility]) Body mass index (BMI) [Ratio] 0.00 kg/m2 No rmal (applies to non-numeric results) 0.00 kg/m2 [facility] ([facility]) Systolic blood pressure 0 mm[Hg] Normal (applies t o non-numeric results) 0 mm[Hg] [facility] ([facility]) Diastolic blood pressure 0 mm[Hg] Normal (applies to non-numeric results) 0 mm[Hg] [facility] ([facility]) Body height 0.00 in Normal (applies to non-numeric resu lts) 0.00 in [facility] ([facility]) Body weight Measured 0.00 lbs Normal (applies to n on-numeric results) 0.00 lbs [facility] ([facility]) Body mass index (BMI) [Ratio] 0.00 kg/m2 No rmal (applies to non-numeric results) 0.00 kg/m2 [facility] ([facility]) Systolic blood pressure 0 mm[Hg] Normal (applies t o non-numeric results) 0 mm[Hg] [facility] ([facility]) Diastolic blood pressure 0 mm[Hg] Normal (applies to non-numeric results) 0 mm[Hg] [facility] ([facility]) Body height 0.00 in Normal (applies to non-numeric resu lts) 0.00 in [facility] ([facility]) Body weight Measured 0.00 lbs Normal (applies to n on-numeric results) 0.00 lbs [facility] ([facility]) Body mass index (BMI) [Ratio] 0.00 kg/m2 No rmal (applies to non-numeric results) 0.00 kg/m2 [facility] ([facility]) Systolic blood pressure 0 mm[Hg] Normal (applies t o non-numeric results) 0 mm[Hg] [facility] ([facility]) Diastolic blood pressure 0 mm[Hg] Normal (applies to non-numeric results) 0 mm[Hg] [facility] ([facility]) Body height 0.00 in Normal (applies to non-numeric resu lts) 0.00 in [facility] ([facility]) Body weight Measured 0.00 lbs Normal (applies to n on-numeric results) 0.00 lbs [facility] ([facility]) Body mass index (BMI) [Ratio] 0.00 kg/m2 No rmal (applies to non-numeric results) 0.00 kg/m2 [facility]) Systolic blood pressure 0 mm[Hg] Normal (applies t o non-numeric results) 0 mm[Hg] [facility] ([facility]) Diastolic blood pressure 0 mm[Hg] Normal (applies to non-numeric results) 0 mm[Hg] [facility] ([facility]) ID Date Data Source [id number] 09/22/2020 02:27:59 PM [facility] Name Value Range Interpretation Code Description Data Source(s) TRANSFER FROM [facility]
--- OUTSIDE RECORDS SUMMARY | 2021-09-01 05:08 | CCD ---
Author Author [facility] Organization [facility] Address Unknown Phone Unavailable Support Name Relationship Address Phone Hudson GUTIERREZ, Pasha Next Of Kin [address] [place] [address] Diamante Costa Next Of Kin [address] [place] [address] Dwain Joseph DO Next Of Kin [address] [place] [address] Cameron Bingham MD Next Of Kin [address] [place] [address] SELFGARY Next Of Kin [address] [place] [address] YONI JACK Next Of Kin [address] [place] [address] CORRECTIONAL, RAMONA Next Of Kin [address] [place] [address] Monique Conklin MD Next Of Kin [address] [place] [phone] YONI CALHOUN Next Of Kin [address] [place] [address] Isabelle Manning Next Of Kin [address] [place] [address] Pat Gallo DO Next Of Kin [address] [place] [address] DISABLED Next Of Kin Unknown Unavailable [place] Self Next Of Kin [address] [place] [phone] SELF, JUNIOR Next Of Kin [address] [place] [address] UE Next Of Kin Unknown Unavailable SIMON WALL Next Of Kin [address] [place] [address] SELF, JUNIOR ECON [address] [place] [address] Unavailable Care Team Providers Care Lunch Cook Name Role Phone Farden, M Rambo Unavailable [...] Unavailable Gina Nash Unavailable AMILCAR, H ANSELMO RENTAL MANAGER Unavailable Unavailable AMILCAR, H ANSELMO RENTAL MANAGER Unavailable Unavailable AMILCAR, H ANSELMO RENTAL MANAGER Unavailable Unavailable AMILCAR, H ANSELMO RENTAL MANAGER Unavailable Unavailable AMILCAR, H ANSELMO RENTAL MANAGER Unavailable Unavailable AMILCAR, H ANSELMO RENTAL MANAGER Unavailable Unavailable AMILCAR, H ANSELMO RENTAL MANAGER Unavailable Unavailable AMILCAR, H ANSELMO RENTAL MANAGER Unavailable Unavailable AMILCAR, H ANSELMO RENTAL MANAGER Unavailable Unavailable Jossie Marcelino Unavailable Rotella, Jossy [...] Unavailable Unavailable Solomon Treviño MD Unavailable Unavailable Sloomon Treviño MD Unavailable Unavailable Solomon Treviño MD [...] Unavailable Unavailable Colon, Castro Unavailable Unavailable Colon, Catsro Unavailable Unavailable Colon, Castro Unavailable Unavailable Colon, [...] is protected by Article 27-F of the [facility] Public Health law. If you continue you may have access to information: Regarding HIV / AIDS; Provided by facilities licensed or operated by the [facility] Office of Mental Health; or Provided by the [facility] Office for People With Developmental Disabilities. If such information is present, then the following [facility] mandated warning applies: This information [...] law may result in a fine or fpc sentence or both. A general authorization for the release of medical or other information is NOT sufficient authorization for further disc losure. Allergies and Adverse Reactions Type Description Substance Reaction Status Data Source(s ) Drug allergy No Known Allergies No Known Allergies [facility] Propensity to adverse reactions NO KNOWN ALLERGIES NO KNOWN ALLERGIES [facility] Encounters Encounter Providers Location Date Indications Data Source(s ) Injectable Medication Administration w/ Monitoring & E ducation Attender: Pammurphy Isbellpo [facility] 07/29/2021 02:30:00 AM EDT - 07/29/2021 02:30:00 AM EDT [facility] ([facility]) Attender: Pam Juarez 07/29/2021 12:00:00 AM [facility] Injectable Medication Administration w/ Monitoring & E ducation Attender: Thalia CallahanAlbaAlphonso [facility] 06/24/2021 10:45:00 AM EDT - 06/24/2021 10:45:00 AM EDT [facility] ([facility]) Attender: Thalia Carreno 06/24/2021 12:00:00 AM EDT [facility] Injectable Psychotropic Medication Administration (Inj ection Only) Attender: Thalia Carreno [facility] 05/27/2021 08:15:00 AM EDT - 05/27/2021 08:15:00 AM EDT [facility] ([facility]) Attender: Thalia Carreno 05/27/2021 12:00:00 AM EDT [facility] Individual Psychotherapy - 30 min Attender: Gina yun [facility] 05/13/2021 08:30:00 AM EDT - 05/13/2021 08:30:00 AM EDT [facility]: Gina Nash 05/13/2021 12:00:00 AM EDT [facility]: Pam Juarez 04/04/2021 12:00:00 AM EDT [facility] Injectable Medication Administration w/ Monitoring & E ducation Attender: Pam Isbellpo [facility] 04/03/2021 09:00:00 AM EDT - 04/03/2021 09:00:00 AM EDT [facility] ([facility]) Outpatient Attender: ANSELMO APONTE NP [facility] Mike garcía 04/03/2021 08:30:00 AM EDT - 04/03/2021 08:30:00 AM EDT [facility] ([facility]) Attender: ANSELMO APONTE NP 04/03/2021 12:00:00 AM EDT [facility] Attender: ANSELMO APONTE NP [facility] Mike raquel 03/27/2021 11:00:00 AM EDT - 03/27/2021 11:00:00 AM EDT [facility] ([facility]) Attender: ANSELMO APONTE NP 03/27/2021 12:00:00 AM EDT [facility] Attender: ANSELMO APONTE NP [facility] Mike garcía 03/19/2021 03:00:00 AM EDT - 03/19/2021 03:00:00 AM EDT [facility] ([facility]) Attender: ANSELMO APONTE NP 03/19/2021 12:00:00 AM EDT [facility]ender: JONNATHAN TRACY MDAdmitter: JONNATHAN TRACY MD 02/27/2021 08:12:00 PM EDT - 03/08/2021 03:27:00 PM EDT [facility] Patient discharged. Outpatient Attender: JONNATHAN Bonilla tter: JONNATHAN TRACY MDConsultant: JONNATHAN TRACY MD 02/27/2021 08:12:00 PM EDT Su[facility] Ide[facility] / Homicidal Ideation Outpatient Attender: JONNATHAN Bonilla tter: JONNATHAN TRACY MDConsultant: JONNATHAN TRACY MD 02/27/2021 08:12:00 PM EDT [facility] Ide[facility] / Homicidal Ideation Outpatient Attender: Castro ColonAdmitter : JONNATHAN TRACY MDConsultant: JONNATHAN TRACY MD 02/27/2021 08:12:00 PM EDT Suicidal Ideation / [facility] Su[facility] Ide[facility] / Homicidal Ideation Outpatient Attender: JONNATHAN Bonilla tter: JONNATHAN TRACY MDConsultant: JONNATHAN TRACY MD 02/27/2021 08:12:00 PM EDT [facility]omicidal Ideation Outpatient Attender: JONNATHAN Bonilla tter: JONNATHAN TRACY MDConsultant: JONNATHAN TRACY MD 02/27/2021 08:12:00 PM EDT Suicidal Ideation [facility] Su[facility] / Homicidal Ideation Outpatient Attender: JONNATHAN Bonilla tter: JONNATHAN TRACY MDConsultant: JONNATHAN TRACY MD 02/27/2021 08:12:00 PM EDT Suicidal Ideation [facility] / Homicidal Ideation Outpatient Attender: Castro ColonAdmitter : JONNATHAN TRACY MDConsultant: JONNATHAN TRACY MD 02/27/2021 08:12:00 PM EDT Suicidal Ideation [facility] / Homicidal Ideation Outpatient Attender: Castro ColonAdmitter : JONNATHAN TRACY MDConsultant: JONNATHAN TRACY MD 02/27/2021 08:12:00 PM EDT Suicidal Ideation / [facility]micidal Ideation [facility] Suicidal Ideation / Homicidal Ideation Outpatient Attender: JONNATHAN TRACY MDAdmi tter: JONNATHAN TRACY MDConsultant: JONNATHAN TRACY MD 02/27/2021 08:12:00 PM EDT Suicidal Ideation [facility] / Homicidal Ideation Outpatient Attender: Rambo Pedroza mitter: JONNATHAN TRACY MDConsultant: JONNATHAN TRACY MD 02/27/2021 08:12:00 PM EDT Suicidal Ideation / [facility]micidal Ideation [facility] Su[facility] / Homicidal Ideation Outpatient Attender: ANSELMO APONTE NP [facility] Mike garcía 02/12/2021 10:30:00 AM EDT - 02/12/2021 10:30:00 AM EDT [facility] ([facility]) Attender: ANSELMO APONTE NP 02/12/2021 12:00:00 AM EDT [facility]: ANSELMO APONTE NP [facility] Mike garcía 02/07/2021 11:30:00 AM EDT - 02/07/2021 11:30:00 AM EDT [facility] ([facility]) Attender: ANSELMO APONTE NP 02/07/2021 12:00:00 AM EDT [facility] Psych[facility] - 30 min Attender: Gina yun [facility] Maria Alejandra 02/01/2021 02:00:00 AM EDT - 02/01/2021 02:00:00 AM EDT [facility]: Gina Nash 02/01/2021 12:00:00 AM EDT [facility] Injectable Psychotropic Medication Administration (Inj ection Only) Attender: Thalia Carreno [facility] Maria Alejandra 01/23/2021 10:00:00 AM EDT - 01/23/2021 10:00:00 AM EDT [facility] ([facility]) Outpatient Attender: ANSELMO APONTE NP [facility] Mike garcía 01/23/2021 09:15:00 AM EDT - 01/23/2021 09:15:00 AM EDT [facility] ([facility]) Attender: ANSELMO APONTE NP 01/23/2021 12:00:00 AM EDT [facility]: Thalia Carreno 01/23/2021 12:00:00 AM EDT [facility] Injectable Medication Administration w/ Monitoring & E ducation Attender: Pam Juarez [facility] 01/18/2021 11:00:00 AM EDT - 01/18/2021 11:00:00 AM EDT [facility] ([facility]) Attender: Pam Juarez 01/18/2021 12:00:00 AM EDT [facility] Attender: ANSELMO APONTE NP [facility] Mike garcía 01/17/2021 09:00:00 AM EDT - 01/17/2021 09:00:00 AM EDT [facility] ([facility]) Attender: ANSELMO APONTE NP 01/17/2021 12:00:00 AM EDT [facility] Attender: ANSELMO APONTE NP [facility] Mike garcía 01/01/2021 02:30:00 AM EST - 01/01/2021 02:30:00 AM EST [facility] ([facility]) Attender: ANSELMO APONTE NP 01/01/2021 12:00:00 AM EST [facility] Injectable Psychotropic Medication Administration (Inj ection Only) Attender: Jossie Marcelino [facility] 12/28/2020 10:30:00 AM EST - 12/28/2020 10:30:00 AM EST [facility] ([facility]) Attender: Jossie Marcelino 12/28/2020 12:00:00 AM EST [facility] Attender: Victorino Escobar MD [facility] 12/20/2020 09:30:00 AM EST - 12/20/2020 09:30:00 AM EST [facility] ([facility]) Attender: Victorino Escobar MD 12/20/2020 12:00:00 AM EST [facility] Attender: Victorino Escobar MD [facility] Mike garcía 12/06/2020 12:30:00 PM EST - 12/06/2020 12:30:00 PM EST [facility] ([facility]) Attender: Victorino Escobar MD 12/06/2020 12:00:00 AM EST [facility] Injectable Medication Administration w/ Monitoring & E ducation Attender: ORGANIZATION NPI ALIASES [facility] 11/15/2020 11:15: 00 AM EST - 11/15/2020 11:15:00 AM EST [facility] ([facility]) Outpatient Attender: Victorino Escobar MD [facility] raquel 11/15/2020 11:00:00 AM EST - 11/15/2020 11:00:00 AM EST [facility] ([facility]) Attender: ORGANIZATION NPI ALIASES * 11/15/2020 12:00:00 AM EST [facility] ([facility]) Attender: Victorino Escobar MD 11/15/2020 12:00:00 AM EST [facility] Injectable Psychotropic Medication Administration (Inj ection Only) Attender: Jossy Mejia [facility] 10/18/2020 10:30:00 AM EST - 10/18/2020 10:30:00 AM EST [facility] ([facility]) Attender: Jossy Mejia 10/18/2020 12:00:00 AM EST [facility] Injectable Psychotropic Medication Administration (Inj ection Only) Attender: Jossy Mejia [facility] 10/15/2020 11:00:00 AM EST - 10/15/2020 11:00:00 AM EST [facility] Attender: Jossy Mejia 10/15/2020 12:00:00 AM EST [facility] Injectable Psychotropic Medication Administration (Inj ection Only) Attender: Jossy Mejia [facility] 10/04/2020 10:30:00 AM EST - 10/04/2020 10:30:00 AM EST [facility] ([facility]) Outpatient Attender: KALLI MOLINAURSZULA [facility] 10/04/2020 10:00:00 AM EST - 10/04/2020 10:00:00 AM EST [facility]: Jossy Mejia 10/04/2020 12:00:00 AM EST [facility]: KALLI MOLINAURSZULA 10/04/2020 12:00: 00 AM EST [facility] Referrer[facility] 09/22/2020 0 2:27:00 PM EST schizophrenia, hallucinations, substance abuse [facility] schizophrenia, hallucinations, substance abuse Injectable Psychotropic Medication Administration (Inj ection Only) Attender: Jossy Mejia [facility] 09/12/2020 09:30:00 AM EST - 09/12/2020 09:30:00 AM EST [facility] ([facility]) Outpatient Attender: KALLI MOLINAURSZULA [facility] 09/12/2020 09:00:00 AM EST - 09/12/2020 09:00:00 AM EST [facility] ([facility]) Attender: KALLI MOLINAURSZULA 09/12/2020 12:00: 00 AM EST [facility]: Jossy Mejia 09/12/2020 12:00:00 AM EST [facility] Attender: KALLI MOLINAURSZULA [facility] 08/10/2020 02:00:00 AM EDT - 08/10/2020 02:00:00 AM EDT [facility] Attender: KALLI IGLESIAS [facility] 08/10/2020 12:00: 00 AM EDT [facility] Injectable Psychotropic Medication Administration (Inj ection Only) [facility] 02:00:00 AM EDT - 07/13/2020 02:00:00 AM EDT [facility] ([facility]) Attender: Jossy Mejia 07/13/2020 12:00:00 AM EDT [facility] Attender: Pasha MOLINA 07/12/2020 02:46:50 PM EDT [facility] Functional Status Medications Medication Brand Name Start Date Product Form Dose Route Admi nistrative Instructions Pharmacy Instructions Status Indications Reaction Description Data Source(s) Prazosin 1 MG Oral Capsule prazosin 07/10/2021 12:00:00 AM EDT 1 mg by mouth completed <td ID="Medicat ionRxNorm_4">792966</td><td ID="MedicationMedication_4">prazosin</td><td ID="MedicationRoute_4">by mouth</td><td ID="MedicationRouteConcept_4">W85169</td><td ID="MedicationStartDate_4">07/10/2021</td><td ID="MedicationStopDate_4">08/09/2021</td><td ID="MedicationDosageFrequency_4">at bedtime</td><td ID="MedicationDuration_4">30</td><td ID="MedicationFormulaStrength_4">1 mg</td><td ID="MedicationDosageForm_4">capsule</td><td ID="MedicationDosageFormCode_4"></td><td ID="MedicationDosageDescription_4"></td><td ID="MedicationMedicationId_4">[id number]</td><td ID="MedicationAccount_4">[id number]</td><td ID="MedicationNpid_4">[id number]</td><td ID="MedicationAuthorFirstName_4">Anselmo</td><td ID="MedicationAuthorLastName_4">Amilcar</td><td ID="MedicationTaxonomyCode_4">[id number]</td><td ID="MedicationTaxonomyDesc_4">Nurse Practitioner</td><td ID="MedicationPhoneNumber_4">[phone]</td> [facility] ([facility]) olanzapine 5 MG Oral Tablet [Zyprexa] Zyprexa 05/23/2021 12:00:00 AM EDT 5 mg by mouth completed <td ID="Medica tionRxNorm_2">469405</td><td ID="MedicationMedication_2">Zyprexa</td><td ID="MedicationRoute_2">by mouth</td><td ID="MedicationRouteConcept_2">R52342</td><td ID="MedicationStartDate_2">05/23/2021</td><td ID="MedicationStopDate_2">08/09/2021</td><td ID="MedicationDosageFrequency_2">at bedtime</td><td ID="MedicationDuration_2">30</td><td ID="MedicationFormulaStrength_2">5 mg</td><td ID="MedicationDosageForm_2">tablet</td><td ID="MedicationDosageFormCode_2"></td><td ID="MedicationDosageDescription_2"></td><td ID="MedicationMedicationId_2">[id number]</td><td ID="MedicationAccount_2">[id number]</td><td ID="MedicationNpid_2">[id number]</td><td ID="MedicationAuthorFirstName_2">Anselmo</td><td ID="MedicationAuthorLastName_2">Amilcar</td><td ID="MedicationTaxonomyCode_2">[id number]</td><td ID="MedicationTaxonomyDesc_2">Nurse Practitioner</td><td ID="MedicationPhoneNumber_2">[phone]</td> [facility] ([facility]) benztropine mesylate 1 MG Oral Tablet benztropine 05/23/2021 12:00 :00 AM EDT 1 mg by mouth completed <td ID="Me dicationRxNorm_3">[id number]</td><td ID="MedicationMedication_3">benztropine</td><td ID="MedicationRoute_3">by mouth</td><td ID="MedicationRouteConcept_3">F68983</td><td ID="MedicationStartDate_3">05/23/2021</td><td ID="MedicationStopDate_3">08/09/2021</td><td ID="MedicationDosageFrequency_3">at bedtime</td><td ID="MedicationDuration_3">30</td><td ID="MedicationFormulaStrength_3">1 mg</td><td ID="MedicationDosageForm_3">tablet</td><td ID="MedicationDosageFormCode_3"></td><td ID="MedicationDosageDescription_3"></td><td ID="MedicationMedicationId_3">[id number]</td><td ID="MedicationAccount_3">[id number]</td><td ID="MedicationNpid_3">[id number]</td><td ID="MedicationAuthorFirstName_3">Anselmo</td><td ID="MedicationAuthorLastName_3">Amilcar</td><td ID="MedicationTaxonomyCode_3">[id number]</td><td ID="MedicationTaxonomyDesc_3">Nurse Practitioner</td><td ID="MedicationPhoneNumber_3">[phone]</td> [facility] ([facility]) 1.5 ML paliperidone palmitate 156 MG/ML Prefilled Syri nge [Invega] Invega Sustenna 04/16/2021 12:00:00 AM EDT 234 mg/1.5 compl eted <td ID="MedicationRxNorm_1">033718</td><td ID="MedicationMedication_1">Invega Sustenna</td><td ID="MedicationRoute_1"></td><td ID="MedicationRouteConcept_1"></td><td ID="MedicationStartDate_1">04/16/2021</td><td ID="MedicationStopDate_1"></td><td ID="MedicationDosageFrequency_1"></td><td ID="MedicationDuration_1"></td><td ID="MedicationFormulaStrength_1">234 mg/1.5 mL</td><td ID="MedicationDosageForm_1">syringe</td><td ID="MedicationDosageFormCode_1"></td><td ID="MedicationDosageDescription_1"> </td><td ID="MedicationMedicationId_1">[id number]</td><td ID="MedicationAccount_1">[id number]</td><td ID="MedicationNpid_1">[id number]</td><td ID="MedicationAuthorFirstName_1">Anselmo</td><td ID="MedicationAuthorLastName_1">Amilcar</td><td ID="MedicationTaxonomyCode_1">[id number]</td><td ID="MedicationTaxonomyDesc_1">Nurse Practitioner</td><td ID="MedicationPhoneNumber_1">[phone]</td> [facility] ([facility]) 2.625 ML paliperidone palmitate 312 MG/ML Prefilled Sy ringe [Invega] Invega Trinza 04/03/2021 12:00:00 AM EDT 819 mg/2.625 compl eted <td ID="MedicationRxNorm_3">[id number]</td><td ID="MedicationMedication_3">Invega Trinza</td><td ID="MedicationRoute_3">intramuscularly</td><td ID="MedicationRouteConcept_3"></td><td ID="MedicationStartDate_3">04/03/2021</td><td ID="MedicationStopDate_3">07/02/2021</td><td ID="MedicationDosageFrequency_3">every three months</td><td ID="MedicationDuration_3">90</td><td ID="MedicationFormulaStrength_3">819 mg/2.625 mL</td><td ID="MedicationDosageForm_3">syringe</td><td ID="MedicationDosageFormCode_3"></td><td ID="MedicationDosageDescription_3"></td><td ID="MedicationMedicationId_3">[id number]</td><td ID="MedicationAccount_3">[id number]</td><td ID="MedicationNpid_3">[id number]</td><td ID="MedicationAuthorFirstName_3">Anselmo</td><td ID="MedicationAuthorLastName_3">Amilcar</td><td ID="MedicationTaxonomyCode_3">[id number]</td><td ID="MedicationTaxonomyDesc_3"> Nurse Practitioner</td><td ID="MedicationPhoneNumber_3">[phone]</td> [facility] ([facility]) 2.625 ML paliperidone palmitate 312 MG/ML Prefilled Sy ringe [Invega] Invsuleiman Quintanillaza 04/03/2021 12:00:00 AM EDT 819 mg/2.625 compl eted <td ID="MedicationRxNorm_4">0050694</td><td ID="MedicationMedication_4">Invega Trinza</td><td ID="MedicationRoute_4">intramuscularly</td><td ID="MedicationRouteConcept_4"></td><td ID="MedicationStartDate_4">04/03/2021</td><td ID="MedicationStopDate_4">07/02/2021</td><td ID="MedicationDosageFrequency_4">every three months</td><td ID="MedicationDuration_4">90</td><td ID="MedicationFormulaStrength_4">819 mg/2.625 mL</td><td ID="MedicationDosageForm_4">syringe</td><td ID="MedicationDosageFormCode_4"></td><td ID="MedicationDosageDescription_4"></td><td ID="MedicationMedicationId_4">[id number]</td><td ID="MedicationAccount_4">[id number]</td><td ID="MedicationNpid_4">[id number]</td><td ID="MedicationAuthorFirstName_4">Anselmo</td><td ID="MedicationAuthorLastName_4">Amilcar</td><td ID="MedicationTaxonomyCode_4">[id number]</td><td ID="MedicationTaxonomyDesc_4"> Nurse Practitioner</td><td ID="MedicationPhoneNumber_4">[phone]</td> [facility] ([facility]) haloperidol decanoate haloperidol decanoate 04/03/2021 12:00:00 AM EDT 100 mg/mL completed <td ID="Me dicationRxNorm_2">3770691</td><td ID="MedicationMedication_2">haloperidol decanoate</td><td ID="MedicationRoute_2">intramuscularly</td><td ID="MedicationRouteConcept_2"> </td><td ID="MedicationStartDate_2">04/03/2021</td><td ID="MedicationStopDate_2">04/03/2021</td><td ID="MedicationDosageFrequency_2">every four weeks</td><td ID="MedicationDuration_2">28</td><td ID="MedicationFormulaStrength_2">100 mg/mL</td><td ID="MedicationDosageForm_2">solution</td><td ID="MedicationDosageFormCode_2"></td><td ID="MedicationDosageDescription_2"></td><td ID="MedicationMedicationId_2">[id number]</td><td ID="MedicationAccount_2">[id number]</td><td ID="MedicationNpid_2">[id number]</td><td ID="MedicationAuthorFirstName_2">Anselmo</td><td ID="MedicationAuthorLastName_2">Amilcar</td><td ID="MedicationTaxonomyCode_2">[id number]</td><td ID="MedicationTaxonomyDesc_2"> Nurse Practitioner</td><td ID="MedicationPhoneNumber_2">[phone]</td> [facility] ([facility]) benztropine mesylate 1 MG Oral Tablet benztropine 04/03/2021 12:00 :00 AM EDT 1 mg by mouth completed <td ID="Me dicationRxNorm_2">448669</td><td ID="MedicationMedication_2">benztropine</td><td ID="MedicationRoute_2">by mouth</td><td ID="MedicationRouteConcept_2">X12623</td><td ID="MedicationStartDate_2">04/03/2021</td><td ID="MedicationStopDate_2">05/03/2021</td><td ID="MedicationDosageFrequency_2">at bedtime</td><td ID="MedicationDuration_2">30</td><td ID="MedicationFormulaStrength_2">1 mg</td><td ID="MedicationDosageForm_2">tablet</td><td ID="MedicationDosageFormCode_2"></td><td ID="MedicationDosageDescription_2"></td><td ID="MedicationMedicationId_2">[id number]</td><td ID="MedicationAccount_2">[id number]</td><td ID="MedicationNpid_2">[id number]</td><td ID="MedicationAuthorFirstName_2">Anselmo</td><td ID="MedicationAuthorLastName_2">Amilcar</td><td ID="MedicationTaxonomyCode_2">[id number]</td><td ID="MedicationTaxonomyDesc_2">Nurse Practitioner</td><td ID="MedicationPhoneNumber_2">[phone]</td> [facility] ([facility]) olanzapine 5 MG Oral Tablet [Zyprexa] Zyprexa 04/03/2021 12:00:00 AM EDT 5 mg by mouth completed <td ID="Medica tionRxNorm_1">896387</td><td ID="MedicationMedication_1">Zyprexa</td><td ID="MedicationRoute_1">by mouth</td><td ID="MedicationRouteConcept_1">X78367</td><td ID="MedicationStartDate_1">04/03/2021</td><td ID="MedicationStopDate_1">05/03/2021</td><td ID="MedicationDosageFrequency_1">at bedtime</td><td ID="MedicationDuration_1">30</td><td ID="MedicationFormulaStrength_1">5 mg</td><td ID="MedicationDosageForm_1">tablet</td><td ID="MedicationDosageFormCode_1"></td><td ID="MedicationDosageDescription_1"></td><td ID="MedicationMedicationId_1">[id number]</td><td ID="MedicationAccount_1">[id number]</td><td ID="MedicationNpid_1">[id number]</td><td ID="MedicationAuthorFirstName_1">Anselmo</td><td ID="MedicationAuthorLastName_1">Amilcar</td><td ID="MedicationTaxonomyCode_1">[id number]</td><td ID="MedicationTaxonomyDesc_1">Nurse Practitioner</td><td ID="MedicationPhoneNumber_1">[phone]</td> [facility] ([facility]) 2.625 ML paliperidone palmitate 312 MG/ML Prefilled Sy ringe [Invega] Invega Trinza 04/03/2021 12:00:00 AM EDT 819 mg/2.625 compl eted <td ID="MedicationRxNorm_5">7524129</td><td ID="MedicationMedication_5">Invega Trinza</td><td ID="MedicationRoute_5">intramuscularly</td><td ID="MedicationRouteConcept_5"></td><td ID="MedicationStartDate_5">04/03/2021</td><td ID="MedicationStopDate_5">07/02/2021</td><td ID="MedicationDosageFrequency_5">every three months</td><td ID="MedicationDuration_5">90</td><td ID="MedicationFormulaStrength_5">819 mg/2.625 mL</td><td ID="MedicationDosageForm_5">syringe</td><td ID="MedicationDosageFormCode_5"></td><td ID="MedicationDosageDescription_5"></td><td ID="MedicationMedicationId_5">[id number]</td><td ID="MedicationAccount_5">[id number]</td><td ID="MedicationNpid_5">[id number]</td><td ID="MedicationAuthorFirstName_5">Anselmo</td><td ID="MedicationAuthorLastName_5">Amilcar</td><td ID="MedicationTaxonomyCode_5">[id number]</td><td ID="MedicationTaxonomyDesc_5"> Nurse Practitioner</td><td ID="MedicationPhoneNumber_5">[phone]</td> [facility] ([facility]) benztropine mesylate 1 MG Oral Tablet benztropine 04/03/2021 12:00 :00 AM EDT 1 mg by mouth completed <td ID="Me dicationRxNorm_4">[id number]</td><td ID="MedicationMedication_4">benztropine</td><td ID="MedicationRoute_4">by mouth</td><td ID="MedicationRouteConcept_4">W82442</td><td ID="MedicationStartDate_4">04/03/2021</td><td ID="MedicationStopDate_4">05/03/2021</td><td ID="MedicationDosageFrequency_4">at bedtime</td><td ID="MedicationDuration_4">30</td><td ID="MedicationFormulaStrength_4">1 mg</td><td ID="MedicationDosageForm_4">tablet</td><td ID="MedicationDosageFormCode_4"></td><td ID="MedicationDosageDescription_4"></td><td ID="MedicationMedicationId_4">[id number]</td><td ID="MedicationAccount_4">[id number]</td><td ID="MedicationNpid_4">[id number]</td><td ID="MedicationAuthorFirstName_4">Anselmo</td><td ID="MedicationAuthorLastName_4">Amilcar</td><td ID="MedicationTaxonomyCode_4">[id number]</td><td ID="MedicationTaxonomyDesc_4">Nurse Practitioner</td><td ID="MedicationPhoneNumber_4">[phone]</td> [facility] ([facility]) olanzapine 5 MG Oral Tablet [Zyprexa] Zyprexa 04/03/2021 12:00:00 AM EDT 5 mg by mouth completed <td ID="Medica tionRxNorm_3">[id number]</td><td ID="MedicationMedication_3">Zyprexa</td><td ID="MedicationRoute_3">by mouth</td><td ID="MedicationRouteConcept_3">H52988</td><td ID="MedicationStartDate_3">04/03/2021</td><td ID="MedicationStopDate_3">05/03/2021</td><td ID="MedicationDosageFrequency_3">at bedtime</td><td ID="MedicationDuration_3">30</td><td ID="MedicationFormulaStrength_3">5 mg</td><td ID="MedicationDosageForm_3">tablet</td><td ID="MedicationDosageFormCode_3"></td><td ID="MedicationDosageDescription_3"></td><td ID="MedicationMedicationId_3">[id number]</td><td ID="MedicationAccount_3">[id number]</td><td ID="MedicationNpid_3">[id number]</td><td ID="MedicationAuthorFirstName_3">Anselmo</td><td ID="MedicationAuthorLastName_3">Amilcar</td><td ID="MedicationTaxonomyCode_3">[id number]</td><td ID="MedicationTaxonomyDesc_3">Nurse Practitioner</td><td ID="MedicationPhoneNumber_3">[phone]</td> [facility] ([facility]) 2.625 ML paliperidone palmitate 312 MG/ML Prefilled Sy ringe [Invega] Invega Trinza 04/03/2021 12:00:00 AM EDT 819 mg/2.625 compl eted <td ID="MedicationRxNorm_2">[id number]</td><td ID="MedicationMedication_2">Invega Trinza</td><td ID="MedicationRoute_2">intramuscularly</td><td ID="MedicationRouteConcept_2"></td><td ID="MedicationStartDate_2">04/03/2021</td><td ID="MedicationStopDate_2">07/02/2021</td><td ID="MedicationDosageFrequency_2">every three months</td><td ID="MedicationDuration_2">90</td><td ID="MedicationFormulaStrength_2">819 mg/2.625 mL</td><td ID="MedicationDosageForm_2">syringe</td><td ID="MedicationDosageFormCode_2"></td><td ID="MedicationDosageDescription_2"></td><td ID="MedicationMedicationId_2">[id number]</td><td ID="MedicationAccount_2">[id number]</td><td ID="MedicationNpid_2">[id number]</td><td ID="MedicationAuthorFirstName_2">Anselmo</td><td ID="MedicationAuthorLastName_2">Amilcar</td><td ID="MedicationTaxonomyCode_2">[id number]</td><td ID="MedicationTaxonomyDesc_2"> Nurse Practitioner</td><td ID="MedicationPhoneNumber_2">[phone]</td> [facility] ([facility]) haloperidol decanoate haloperidol decanoate 10/04/2020 12:00:00 AM EST 100 mg/mL completed <td ID="Me dicationRxNorm_1">[id number]</td><td ID="MedicationMedication_1">haloperidol decanoate</td><td ID="MedicationRoute_1">intramuscularly</td><td ID="MedicationRouteConcept_1"> </td><td ID="MedicationStartDate_1">10/04/2020</td><td ID="MedicationStopDate_1">04/03/2021</td><td ID="MedicationDosageFrequency_1">as directed</td><td ID="MedicationDuration_1">21</td><td ID="MedicationFormulaStrength_1">100 mg/mL</td><td ID="MedicationDosageForm_1">solution</td><td ID="MedicationDosageFormCode_1"></td><td ID="MedicationDosageDescription_1"></td><td ID="MedicationMedicationId_1">[id number]</td><td ID="MedicationAccount_1">[id number]</td><td ID="MedicationNpid_1">[id number]</td><td ID="MedicationAuthorFirstName_1">Victorino</td><td ID="MedicationAuthorLastName_1">Escobar</td><td ID="MedicationTaxonomyCode_1">[id number]</td><td ID="MedicationTaxonomyDesc_1"> Psychiatry</td><td ID="MedicationPhoneNumber_1">[phone]</td> [facility] ([facility]) 100 mg/mL 10/02/2020 12:00:00 AM EST [...] 50 mg by mouth completed <td ID="Medic ationRxNorm_5">190325</td><td ID="MedicationMedication_5">trazodone</td><td ID="MedicationRoute_5">by mouth</td><td ID="MedicationRouteConcept_5">Y03636</td><td ID="MedicationStartDate_5">09/12/2020</td><td ID="MedicationStopDate_5">10/12/2020</td><td ID="MedicationDosageFrequency_5">every night</td><td ID="MedicationDuration_5">30</td><td ID="MedicationFormulaStrength_5">50 mg</td><td ID="MedicationDosageForm_5">tablet</td><td ID="MedicationDosageFormCode_5"></td><td ID="MedicationDosageDescription_5"></td><td ID="MedicationMedicationId_5">[id number]</td><td ID="MedicationAccount_5">[id number]</td><td ID="MedicationNpid_5">[id number]</td><td ID="MedicationAuthorFirstName_5">Kalli</td><td ID="MedicationAuthorLastName_5">Egorho</td><td ID="MedicationTaxonomyCode_5">[id number]</td><td ID="MedicationTaxonomyDesc_5">Nurse Practitioner</td><td ID="MedicationPhoneNumber_5">[phone]</td> [facility] ([facility]) Trazodone Hydrochloride 50 MG Oral Tablet trazodone 2019 12:00:00 AM EST 50 mg by mouth completed <td ID="Medic ationRxNorm_1">[id number]</td><td ID="MedicationMedication_1">trazodone</td><td ID="MedicationRoute_1">by mouth</td><td ID="MedicationRouteConcept_1">P27452</td><td ID="MedicationStartDate_1">09/12/2020</td><td ID="MedicationStopDate_1">10/12/2020</td><td ID="MedicationDosageFrequency_1">every night</td><td ID="MedicationDuration_1">30</td><td ID="MedicationFormulaStrength_1">50 mg</td><td ID="MedicationDosageForm_1">tablet</td><td ID="MedicationDosageFormCode_1"></td><td ID="MedicationDosageDescription_1"></td><td ID="MedicationMedicationId_1">[id number]</td><td ID="MedicationAccount_1">[id number]</td><td ID="MedicationNpid_1">[id number]</td><td ID="MedicationAuthorFirstName_1">Kalli</td><td ID="MedicationAuthorLastName_1">Egorho</td><td ID="MedicationTaxonomyCode_1">[id number]</td><td ID="MedicationTaxonomyDesc_1">Nurse Practitioner</td><td ID="MedicationPhoneNumber_1">[phone]</td> [facility] ([facility]) Haldol Decanoate Haldol Decanoate 09/12/2020 12:00:00 AM EST 100 mg/mL completed <td ID="MedicationRx Norm_4">[id number]</td><td ID="MedicationMedication_4">Haldol Decanoate</td><td ID="MedicationRoute_4">intramuscularly</td><td ID="MedicationRouteConcept_4"></td><td ID="MedicationStartDate_4">09/12/2020</td><td ID="MedicationStopDate_4">09/15/2020</td><td ID="MedicationDosageFrequency_4">as directed</td><td ID="MedicationDuration_4">1</td><td ID="MedicationFormulaStrength_4">100 mg/mL</td><td ID="MedicationDosageForm_4">solution</td><td ID="MedicationDosageFormCode_4"></td><td ID="MedicationDosageDescription_4"></td><td ID="MedicationMedicationId_4">[id number]</td><td ID="MedicationAccount_4">[id number]</td><td ID="MedicationNpid_4">[id number]</td><td ID="MedicationAuthorFirstName_4">Kalli</td><td ID="MedicationAuthorLastName_4">Egorho</td><td ID="MedicationTaxonomyCode_4">[id number]</td><td ID="MedicationTaxonomyDesc_4">Nurse Practitioner</td><td ID="MedicationPhoneNumber_4">[phone]</td> [facility] ([facility]) quetiapine 300 MG Oral Tablet quetiapine 01/06/2020 12:00:00 AM EST 300 mg completed <td ID="Medicat ionRxNorm_4">665208</td><td ID="MedicationMedication_4">quetiapine</td><td ID="MedicationRoute_4"></td><td ID="MedicationRouteConcept_4"></td><td ID="MedicationStartDate_4">01/06/2020</td><td ID="MedicationStopDate_4">01/05/2021</td><td ID="MedicationDosageFrequency_4">at bedtime</td><td ID="MedicationDuration_4">30</td><td ID="MedicationFormulaStrength_4">300 mg</td><td ID="MedicationDosageForm_4">tablet</td><td ID="MedicationDosageFormCode_4"></td><td ID="MedicationDosageDescription_4"></td><td ID="MedicationMedicationId_4">[id number]</td><td ID="MedicationAccount_4">[id number]</td><td ID="MedicationNpid_4">[id number]</td><td ID="MedicationAuthorFirstName_4">Dane</td><td ID="MedicationAuthorLastName_4">Poplar</td><td ID="MedicationTaxonomyCode_4">[id number]</td><td ID="MedicationTaxonomyDesc_4">Psychiatric/Mental Health</td><td ID="MedicationPhoneNumber_4">[phone]</td> [facility] ([facility]) quetiapine 300 MG Oral Tablet quetiapine 01/06/2020 12:00:00 AM EST 300 mg completed <td ID="Medicat ionRxNorm_1">668767</td><td ID="MedicationMedication_1">quetiapine</td><td ID="MedicationRoute_1"></td><td ID="MedicationRouteConcept_1"></td><td ID="MedicationStartDate_1">01/06/2020</td><td ID="MedicationStopDate_1">01/05/2021</td><td ID="MedicationDosageFrequency_1">at bedtime</td><td ID="MedicationDuration_1">30</td><td ID="MedicationFormulaStrength_1">300 mg</td><td ID="MedicationDosageForm_1">tablet</td><td ID="MedicationDosageFormCode_1"></td><td ID="MedicationDosageDescription_1"></td><td ID="MedicationMedicationId_1">[id number]</td><td ID="MedicationAccount_1">[id number]</td><td ID="MedicationNpid_1">[id number]</td><td ID="MedicationAuthorFirstName_1">Dane</td><td ID="MedicationAuthorLastName_1">Poplar</td><td ID="MedicationTaxonomyCode_1">[id number]</td><td ID="MedicationTaxonomyDesc_1">Psychiatric/Mental Health</td><td ID="MedicationPhoneNumber_1">[phone]</td> [facility] ([facility]) quetiapine 300 MG Oral Tablet quetiapine 01/06/2020 12:00:00 AM EST 300 mg completed <td ID="Medicat ionRxNorm_5">092603</td><td ID="MedicationMedication_5">quetiapine</td><td ID="MedicationRoute_5"></td><td ID="MedicationRouteConcept_5"></td><td ID="MedicationStartDate_5">01/06/2020</td><td ID="MedicationStopDate_5">01/05/2021</td><td ID="MedicationDosageFrequency_5">at bedtime</td><td ID="MedicationDuration_5">30</td><td ID="MedicationFormulaStrength_5">300 mg</td><td ID="MedicationDosageForm_5">tablet</td><td ID="MedicationDosageFormCode_5"></td><td ID="MedicationDosageDescription_5"></td><td ID="MedicationMedicationId_5">[id number]</td><td ID="MedicationAccount_5">[id number]</td><td ID="MedicationNpid_5">[id number]</td><td ID="MedicationAuthorFirstName_5">Dane</td><td ID="MedicationAuthorLastName_5">Poplar</td><td ID="MedicationTaxonomyCode_5">[id number]</td><td ID="MedicationTaxonomyDesc_5">Psychiatric/Mental Health</td><td ID="MedicationPhoneNumber_5">[phone]</td> [facility] ([facility]) Aristada Aristada 12/20/2019 12:00:00 AM EST mg/3.9 completed <td ID="MedicationRxNorm_3">[id number]</td><td ID="MedicationMedication_3">Aristada</td><td ID="MedicationRoute_3">intramuscularly</td><td ID="MedicationRouteConcept_3"></td><td ID="MedicationStartDate_3">12/20/2019</td><td ID="MedicationStopDate_3">09/12/2020</td><td ID="MedicationDosageFrequency_3"></td><td ID="MedicationDuration_3"></td><td ID="MedicationFormulaStrength_3">1,064 mg/3.9 mL</td><td ID="MedicationDosageForm_3">suspension,extended rel syring</td><td ID="MedicationDosageFormCode_3"></td><td ID="MedicationDosageDescription_3">as directed</td><td ID="MedicationMedicationId_3">[id number]</td><td ID="MedicationAccount_3">[id number]</td><td ID="MedicationNpid_3">[id number]</td><td ID="MedicationAuthorFirstName_3">Dane</td><td ID="MedicationAuthorLastName_3">Poplar</td><td ID="MedicationTaxonomyCode_3">[id number]</td><td ID="MedicationTaxonomyDesc_3"> Psychiatric/Mental Health</td><td ID="MedicationPhoneNumber_3">[phone]</td> [facility] ([facility]) Trazodone Hydrochloride 50 MG Oral Tablet trazodone 2018 12:00:00 AM EDT 50 mg by mouth completed <td ID="Medic ationRxNorm_2">240462</td><td ID="MedicationMedication_2">trazodone</td><td ID="MedicationRoute_2">by mouth</td><td ID="MedicationRouteConcept_2">Q87778</td><td ID="MedicationStartDate_2">06/10/2019</td><td ID="MedicationStopDate_2">09/12/2020</td><td ID="MedicationDosageFrequency_2">at bedtime</td><td ID="MedicationDuration_2"></td><td ID="MedicationFormulaStrength_2">50 mg</td><td ID="MedicationDosageForm_2">tablet</td><td ID="MedicationDosageFormCode_2"></td><td ID="MedicationDosageDescription_2"></td><td ID="MedicationMedicationId_2">[id number]</td><td ID="MedicationAccount_2">[id number]</td><td ID="MedicationNpid_2">[id number]</td><td ID="MedicationAuthorFirstName_2">Dane</td><td ID="MedicationAuthorLastName_2">Poplar</td><td ID="MedicationTaxonomyCode_2">[id number]</td><td ID="MedicationTaxonomyDesc_2">Psychiatric/Mental Health</td><td ID="MedicationPhoneNumber_2">[phone]</td> [facility] ([facility]) Amantadine Hydrochloride 100 MG Oral Capsule amantadine HCl 07/30/2017 12:00:00 AM EDT 100 mg by mouth completed <td ID="MedicationRxNorm_1">769554</td><td ID="MedicationMedication_1">amantadine HCl</td><td ID="MedicationRoute_1">by mouth</td><td ID="MedicationRouteConcept_1">C56164</td><td ID="MedicationStartDate_1">07/30/2017</td><td ID="MedicationStopDate_1">09/12/2020</td><td ID="MedicationDosageFrequency_1">every morning</td><td ID="MedicationDuration_1"></td><td ID="MedicationFormulaStrength_1">100 mg</td><td ID="MedicationDosageForm_1">capsule</td><td ID="MedicationDosageFormCode_1"></td><td ID="MedicationDosageDescription_1"></td><td ID="MedicationMedicationId_1">[id number]</td><td ID="MedicationAccount_1">[id number]</td><td ID="MedicationNpid_1">[id number]</td><td ID="MedicationAuthorFirstName_1">Dane</td><td ID="MedicationAuthorLastName_1">Poplar</td><td ID="MedicationTaxonomyCode_1">[id number]</td><td ID="MedicationTaxonomyDesc_1">Psychiatric/Mental Health</td><td ID="MedicationPhoneNumber_1">[phone]</td> [facility] ([facility]) Insurance Providers Payer name Policy type / Coverage type Policy ID Covered democrat ID Covered democrat's relationship to shafer Policy Shafer Plan Information Medicaid S [id number] S [id number] Managed Care - Community Plan [facility] P [id number] S [id number] Medicaid S [id number] S [id number] [facility] I [id number] Self [id number] [facility] I [id number] Self [id number] [facility] I [id number] Self [id number] Managed Care - [facility] Community Plan P [id number] S [id number] Medicaid S [id number] S [id number] Managed Care - C Community Plan P [id number] S [id number] [employer] COMMUNITY PLAN MCDO [id number] SP [id number] [facility] MAN CRE [id number] SP [id number] [facility] [id number] SP [id number] SELF PAY [facility] OFFICE OF MENTAL HEALTH UNAVAILABLE S UNAVAILABLE MEDICAID [id number] S [id number] [facility] OFFICE OF MENTAL HEALTH [id number] S [id number] [employer] COMMUNITY PLAN MCDO [id number] SP [id number] [facility] OFFICE OF MENTAL HEALTH [id number] S [id number] [facility] [id number] SP [id number] SELF PAY ONLY [id number] SP [id number] [facility] [id number] SP [id number] SELF PAY SP [facility]) O [id number] S [id number] [facility] [id number] SP [id number] Self Pay P UNAVAILABLE S UNAVAILA BLE [facility]) O [id number] S [id number] [facility] [id number] SP [id number] MEDICAID [id number] SP [id number] [facility] COMMUNITY PLAN [facility] [id number] SP [id number] MEDICAID [id number] SP [id number] Problems, Conditions, and Diagnoses Code Display Name Description Problem Type Effective Dates Data Source(s) F11.10 Opioid abuse, uncomplicated F11.10 - Opioid abus e, uncomplicated Diagnosis 02/27/2021 08:12:00 PM EDT [facility] 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, uncomplicated F16.10 - Hallucinogen abuse, uncomplicated Diagnosis 02/27/2021 08:12:00 PM EDT [facility] F25.9 Schizoaffective disorder, unspecified F2 5.9 - Schizoaffective disorder, unspecified Diagnosis 02/27/2021 08:12:00 PM EDT [facility] Z13.9 Encounter for screening, unspecified Z13 .9 - Encounter for screening, unspecified Diagnosis 02/27/2021 08:12:00 PM EDT [facility] schizophrenia, hallucinations, substance abuse schizophrenia, hallucinations, substance abuse Diagnosis 09/22/2020 02:27:00 PM [facility] F15.20 Other stimulant dependence, uncomplicate d Stimulant Use Disorder, Moderate: Amphetamine-type substance Condition 07/29/2021 12:00:00 AM EDT [facility] F10.20 Alcohol dependence, uncomplicated Alcohol Use Disorder , Severe Condition 07/29/2021 12:00:00 AM EDT [facility] ([facility]) F17.200 Nicotine dependence, unspecified, uncomp licated Tobacco Use Disorder, Moderate Condition 07/29/2021 12:00:00 AM EDT [facility] ([facility]) F12.20 Cannabis dependence, uncomplicated Cannabis Use Disorder, Moderate Condition 07/29/2021 12:00:00 AM EDT [facility] ([facility]) F20.9 Schizophrenia, unspecified Schizophrenia Condition 07/29/2021 12:00:00 AM EDT [facility] ([facility]) Surgeries/Procedures Procedure Description Date Indications Data Source(s) Comprehensive medication services, per 15 minutes 07/29/2021 12:00:00 AM EDT - 07/29/2021 12:00:00 AM EDT [facility] ([facility]) Comprehensive medication services, per 15 minutes 07/29/2021 12:00:00 AM EDT [facility] ([facility]) Comprehensive medication services, per 15 minutes 06/24/2021 12:00:00 AM EDT - 06/24/2021 12:00:00 AM EDT [facility] ([facility]) Comprehensive medication services, per 15 minutes 06/24/2021 12:00:00 AM EDT [facility] ([facility]) THERAPEUTIC PROPHYLACTIC/DX INJECTION SUBQ/IM 05/27/2021 12:00:00 AM EDT - 05/27/2021 12:00:00 AM EDT [facility] ([facility]) THERAPEUTIC PROPHYLACTIC/DX INJECTION SUBQ/IM 05/27/20 12:00:00 AM EDT [facility] Brief Individual Psychotherapy - 30 min 05/13/2021 12:00:00 AM EDT - 05/13/2021 12:00:00 AM EDT [facility] ([facility]) Brief Individual Psychotherapy - 30 min 05/13/2021 12: 00:00 AM EDT [facility] Comprehensive medication services, per 15 minutes 04/04/2021 12:00:00 AM EDT - 04/04/2021 12:00:00 AM EDT [facility] ([facility]) Comprehensive medication services, per 15 minutes 04/03/2021 12:00:00 AM EDT [facility] ([facility]) OFFICE OUTPATIENT VISIT 15 MINUTES 04/03 12:00:00 AM EDT - 04/03/2021 12:00:00 AM EDT [facility] ([facility]) Psychotherapy ADD ON - 30 Minutes 04/03/2021 12:00:00 AM EDT [facility] OFF[facility] OUTPATIENT VISIT 15 MINUTES 04/03/2021 12:00:00 AM EDT [facility] OFF[facility] OUTPATIENT VISIT 15 MINUTES 03/27 12:00:00 AM EDT - 03/27/2021 12:00:00 AM EDT [facility] ([facility]) OFFICE OUTPATIENT VISIT 15 MINUTES 03/27/2021 12:00:00 AM EDT [facility] OFFICE OUTPATIENT VISIT 15 MINUTES 03/19 12:00:00 AM EDT - 03/19/2021 12:00:00 AM EDT [facility] ([facility]) OFFICE OUTPATIENT VISIT 15 MINUTES 03/19/2021 12:00:00 AM EDT [facility] OFFICE OUTPATIENT VISIT 15 MINUTES 02/12 12:00:00 AM EDT - 02/12/2021 12:00:00 AM EDT [facility] ([facility]) OFFICE OUTPATIENT VISIT 15 MINUTES 02/12/2021 12:00:00 AM EDT [facility] OFFICE OUTPATIENT VISIT 15 MINUTES 02/07 12:00:00 AM EDT - 02/07/2021 12:00:00 AM EDT [facility] ([facility]) OFFICE OUTPATIENT VISIT 15 MINUTES 02/07/2021 12:00:00 AM EDT [facility] Brief Individual Psychotherapy - 30 min 02/01/2021 12:00:00 AM EDT - 02/01/2021 12:00:00 AM EDT [facility] ([facility]) Brief Individual Psychotherapy - 30 min 02/01/2021 12: 00:00 AM EDT [facility] OFFICE OUTPATIENT VISIT 15 MINUTES 01/23 12:00:00 AM EDT - 01/23/2021 12:00:00 AM EDT [facility] ([facility]) OFFICE OUTPATIENT VISIT 15 MINUTES 01/23/2021 12:00:00 AM EDT [facility] THERAPEUTIC PROPHYLACTIC/DX INJECTION SUBQ/IM 01/23/2021 12:00:00 AM EDT - 01/23/2021 12:00:00 AM EDT [facility] ([facility]) THERAPEUTIC PROPHYLACTIC/DX INJECTION SUBQ/IM 01/24/20 12:00:00 AM EDT [facility] Comprehensive medication services, per 15 minutes 01/18/2021 12:00:00 AM EDT - 01/18/2021 12:00:00 AM EDT [facility] ([facility]) Comprehensive medication services, per 15 minutes 01/18/2021 12:00:00 AM EDT [facility] ([facility]) OFFICE OUTPATIENT VISIT 15 MINUTES 01/17 12:00:00 AM EDT - 01/17/2021 12:00:00 AM EDT [facility] ([facility]) OFFICE OUTPATIENT VISIT 15 MINUTES 01/17/2021 12:00:00 AM EDT [facility] MHC Telemed E/M Lvl 3--Est pt 01/01/2021 12:00:00 AM EST - 01/01/2021 12:00:00 AM EST [facility] ([facility]) MHC Telemed E/M Lvl 3--Est pt 01/01/2021 12:00:[address] [facility] THERAPEUTIC PROPHYLACTIC/DX INJECTION SUBQ/IM 12/28/2020 12:00:00 AM EST - 12/28/2020 12:00:00 AM EST [facility] ([facility]) THERAPEUTIC PROPHYLACTIC/DX INJECTION SUBQ/IM 12/28/19 12:00:00 AM EST [facility] MHC Telemed E/M Lvl 3--Est pt 12/20/2020 12:00:00 AM EST - 12/20/2020 12:00:00 AM EST [facility] ([facility]) MHC Telemed E/M Lvl 3--Est pt 12/20/2020 12:00:[address] [facility] MHC Telemed E/M Lvl 3--Est pt 12/06/2020 12:00:00 AM EST - 12/06/2020 12:00:00 AM EST [facility] ([facility]) MHC Telemed E/M Lvl 3--Est pt 12/06/2020 12:00:[address] [facility] Comprehensive medication services, per 15 minutes 11/15/2020 12:00:00 AM EST - 11/15/2020 12:00:00 AM EST [facility] ([facility]) Comprehensive medication services, per 15 minutes 11/15/2020 12:00:00 AM EST [facility] ([facility]) OFFICE OUTPATIENT VISIT 15 MINUTES 11/15 12:00:00 AM EST - 11/15/2020 12:00:00 AM EST [facility] ([facility]) OFFICE OUTPATIENT VISIT 15 MINUTES 11/15/2020 12:00:00 AM EST [facility] THERAPEUTIC [facility]CTIC/DX INJECTION SUBQ/IM 10/18/2020 12:00:00 AM EST - 10/18/2020 12:00:00 AM EST [facility] ([facility]) THERAPEUTIC PROPHYLACTIC/DX INJECTION SUBQ/IM 10/18/20 20 12:00:00 AM EST [facility] THERAPEUTIC PROPHYLACTIC/DX INJECTION SUBQ/IM 10/15/2020 12:00:00 AM EST - 10/15/2020 12:00:00 AM EST [facility] ([facility]) THERAPEUTIC PROPHYLACTIC/DX INJECTION SUBQ/IM 10/15/20 20 12:00:00 AM EST [facility] THERAPEUTIC PROPHYLACTIC/DX INJECTION SUBQ/IM 10/04/2020 12:00:00 AM EST - 10/04/2020 12:00:00 AM EST [facility] ([facility]) THERAPEUTIC PROPHYLACTIC/DX INJECTION SUBQ/IM 10/04/20 20 12:00:00 AM EST [facility] OFFICE OUTPATIENT VISIT 15 MINUTES 10/04 12:00:00 AM EST - 10/04/2020 12:00:00 AM EST [facility] ([facility]) OFFICE OUTPATIENT VISIT 15 MINUTES 10/04/2020 12:00:00 AM EST [facility] [facility]) OFFICE OUTPATIENT VISIT 15 MINUTES 09/12 12:00:00 AM EST - 09/12/2020 12:00:00 AM EST [facility] ([facility]) OFFICE OUTPATIENT VISIT 15 MINUTES 09/12/2020 12:00:00 AM EST [facility] THER[facility]UTIC PROPHYLACTIC/DX INJECTION SUBQ/IM 09/12/2020 12:00:00 AM EST - 09/12/2020 12:00:00 AM EST [facility] ([facility]) THERAPEUTIC PROPHYLACTIC/DX INJECTION SUBQ/IM 09/12/20 12:00:00 AM EST [facility] OFF[facility] OUTPATIENT VISIT 15 MINUTES 08/10 12:00:00 AM EDT - 08/10/2020 12:00:00 AM EDT [facility] ([facility]) OFFICE OUTPATIENT VISIT 15 MINUTES 08/10/2020 12:00:00 AM EDT [facility] THERAPEUTIC PROPHYLACTIC/DX INJECTION SUBQ/IM 07/13/2020 12:00:00 AM EDT - 07/13/2020 12:00:00 AM EDT [facility] ([facility]) THERAPEUTIC PROPHYLACTIC/DX INJECTION SUBQ/IM 07/13/20 12:00:00 AM EDT [facility] Results ID Date Data Source [id number] 07/19/2021 10:40:00 AM EDT [facility] Name Value Range Interpretation Code Description Data Michelle rce(s) Supporting Document(s) SARS coronavirus 2 RNA [Presence] in Res piratory specimen by OMI with probe detection NEGATIVE [facility] This lab was ordered by [facility] a nd reported by [facility]. ID Date Data Source [id number] 07/19/2021 09:50:00 AM EDT [facility] Name Value Range Interpretation Code Description Data Michelle rce(s) Supporting Document(s) SARS COVID [facility]IGEN [facility]GATIVE [facility] reported by [facility]. ID Date Data Source [id number] 06/04/2021 08:17:00 PM EDT [facility] Name Value Range Interpretation Code Description Data Michelle rce(s) Supporting Document(s) SARS coronavirus 2 RNA [Presence] in Res piratory specimen by OMI with probe detection NEGATIVE [facility] This lab was ordered by [facility] a nd reported by [facility]. ID Date Data Source [id number] 05/01/2021 01:57:00 PM EDT [facility] Name Value Range Interpretation Code Description Data Michelle rce(s) Supporting Document(s) SARS coronavirus 2 RNA [Presence] in Res piratory specimen by OMI with probe detection NEGATIVE [facility] This lab was ordered by [facility] a nd reported by [facility]. ID Date Data Source [id number] 04/19/2021 06:29:00 AM EDT [facility] Name Value Range Interpretation Code Description Data Michelle rce(s) Supporting Document(s) SARS coronavirus 2 RNA [Presence] in Res piratory specimen by OMI with probe detection NEGATIVE [facility] This lab was ordered by [facility] a nd reported by [facility]. ID Date Data Source [id number] 04/17/2021 05:50:00 PM EDT [facility] Name Value Range Interpretation Code Description Data Michelle rce(s) Supporting Document(s) SARS-CoV-2 (COVID-19) RNA [Presence] in Respiratory specimen by OMI with probe detection Not Detected [facility] This lab was ordered by [facility] and reported by [facility]. 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 RENTAL MANAGER 02/28/211652 52 52 Name Value Range Interpretation Code Description Data Michelle rce(s) Supporting Document(s) ID Date Data Source [id number] 02/28/2021 10:45:00 AM EDT [facility] [address] [place] [address] HEALTH INFORMATION MANAGEMENT [facility] Psychosocial Summary : [id number] Signed Patient: Gabo Parra Acct:[id number] Unit: M [id number] : 1980 Loc: [facility] Room/Bed: 820-B Age/Sex: 40 / M ADM Date: 02/27/21 cc: General/History - Presenting Problem Presenting Problem: Social Summary/Discharge plan Presenting Problem Gabo is a40 yo AAM, extensive psych hx, also problems with substance abuse admitted on a transfer from [facility] ER brought in there by his CW as pt was feeling depressed, suicidal, also hallucinating and after abusing drugs History. tates was partially complaint with meds. Not able to name his psychiatrist in [place], not able to name the therapist. Gives h/o 5 to 6 inpt psych txs, last one few months ago, "I can't remember the place, they send me from [facility]. " Also, h'o inpt psych tx at [facility]. H/o self harm time, tried [...] Person?: No Are you part of any sabianist/spirtual community?: Yes ([place] ) - Current Living/Relationship History Current Living Arrangement: House Who Do You Live With?: Mother. OK to Return Home: Yes Weapons in household: No Currently in a Relationship?: No Ever Been ?: No Any Children?: 2 - Family History Where Were You Born/Raised[place] Who Was in Home?: Mother, Father [...] Reducing Risk: Complies with Tx/Meds, Future Oriented, Anabaptist Beliefs Mental Status Treatment - Mental Status [...] rce(s) Supporting Document(s) ID Date Data Source [id number] 02/27/2021 04:28:00 PM EDT [facility] Name Value Range Interpretation Code Description Data Michelle rce(s) Supporting Document(s) SARS coronavirus 2 RNA [Presence] in Res piratory specimen by OMI with probe detection NEGATIVE [facility] This lab was ordered by [facility] a nd reported by [facility]. ID Date Data Source [id number] 01/23/2021 01:03:00 AM EDT [facility] Name Value Range Interpretation Code Description Data Michelle rce(s) Supporting Document(s) SARS coronavirus 2 RNA [Presence] in Res piratory specimen by OMI with probe detection NEGATIVE [facility] This lab was ordered by [facility] a nd reported by [facility]. ID Date Data Source [id number] 10/17/2020 12:19:00 AM EST [facility] Name Value Range Interpretation Code Description Data Michelle rce(s) Supporting Document(s) SARS coronavirus 2 RNA [Presence] in Res piratory specimen by OMI with probe detection [facility] This lab was ordered by [facility] a nd reported by [facility]. Procedure Social History Code Duration Value Status Description Data Source(s ) Smoking 07/29/2021 12:00:00 AM EDT Unknown if ever smoked comp leted Unknown if ever smoked [facility] ([facility]) Smoking 06/24/2021 12:00:00 AM EDT Unknown if ever smoked comp leted Unknown if ever smoked [facility] ([facility]) Smoking 05/27/2021 12:00:00 AM EDT Unknown if ever smoked comp leted Unknown if ever smoked [facility] ([facility]) Smoking 05/13/2021 12:00:00 AM EDT Unknown if ever smoked comp leted Unknown if ever smoked [facility] ([facility]) Smoking 04/04/2021 12:00:00 AM EDT Unknown if ever smoked comp leted Unknown if ever smoked [facility] ([facility]) Smoking 04/03/2021 12:00:00 AM EDT Unknown if ever smoked comp leted Unknown if ever smoked [facility] ([facility]) Smoking 03/27/2021 12:00:00 AM EDT Unknown if ever smoked comp leted Unknown if ever smoked [facility] ([facility]) Smoking 03/19/2021 12:00:00 AM EDT Unknown if ever smoked comp leted Unknown if ever smoked [facility] ([facility]) Smoking 02/12/2021 12:00:00 AM EDT Unknown if ever smoked comp leted Unknown if ever smoked [facility] ([facility]) Smoking 02/07/2021 12:00:00 AM EDT Unknown if ever smoked comp leted Unknown if ever smoked [facility] ([facility]) Smoking 02/01/2021 12:00:00 AM EDT Unknown if ever smoked comp leted Unknown if ever smoked [facility] ([facility]) Smoking 01/23/2021 12:00:00 AM EDT Unknown if ever smoked comp leted Unknown if ever smoked [facility] ([facility]) Smoking 01/18/2021 12:00:00 AM EDT Unknown if ever smoked comp leted Unknown if ever smoked [facility] ([facility]) Smoking 01/17/2021 12:00:00 AM EDT Unknown if ever smoked comp leted Unknown if ever smoked [facility] ([facility]) Smoking 01/01/2021 12:00:00 AM EST Unknown if ever smoked comp leted Unknown if ever smoked [facility] ([facility]) Smoking 12/28/2020 12:00:00 AM EST Unknown if ever smoked comp leted Unknown if ever smoked [facility] ([facility]) Smoking 12/20/2020 12:00:00 AM EST Unknown if ever smoked comp leted Unknown if ever smoked [facility] ([facility]) Smoking 12/06/2020 12:00:00 AM EST Unknown if ever smoked comp leted Unknown if ever smoked [facility] ([facility]) Smoking 11/15/2020 12:00:00 AM EST Unknown if ever smoked comp leted Unknown if ever smoked [facility] ([facility]) Smoking 10/18/2020 12:00:00 AM EST Unknown if ever smoked comp leted Unknown if ever smoked [facility] ([facility]) Smoking 10/15/2020 12:00:00 AM EST Unknown if ever smoked comp leted Unknown if ever smoked [facility] ([facility]) Smoking 10/04/2020 12:00:00 AM EST Unknown if ever smoked comp leted Unknown if ever smoked [facility] ([facility]) Smoking 09/12/2020 12:00:00 AM EST Unknown if ever smoked comp leted Unknown if ever smoked [facility] ([facility]) Smoking 08/10/2020 12:00:00 AM EDT Unknown if ever smoked comp leted Unknown if ever smoked [facility] ([facility]) Smoking 07/13/2020 12:00:00 AM EDT Unknown if ever smoked comp leted Unknown if ever smoked [facility] ([facility]) Vital Signs ID Date Data Source UNK Name Value Range Interpretation Code Description Data Source(s) Body height 0.00 in Normal (applies to non-numeric resu lts) 0.00 in [facility] ([facility]) Body weight Measured 0.00 lbs Normal (applies to n on-numeric results) 0.00 lbs [facility] ([facility]) Body mass index (BMI) [Ratio] 0.00 kg/m2 No rmal (applies to non-numeric results) 0.00 kg/m2 [facility] ([facility]) Systolic blood pressure 0 mm[Hg] Normal (applies t o non-numeric results) 0 mm[Hg] [facility] ([facility]) Diastolic blood pressure 0 mm[Hg] Normal (applies to non-numeric results) 0 mm[Hg] [facility] ([facility]) Body height 0.00 in Normal (applies to non-numeric resu lts) 0.00 in [facility] ([facility]) Body weight Measured 0.00 lbs Normal (applies to n on-numeric results) 0.00 lbs [facility] ([facility]) Body mass index (BMI) [Ratio] 0.00 kg/m2 No rmal (applies to non-numeric results) 0.00 kg/m2 [facility] ([facility]) Systolic blood pressure 0 mm[Hg] Normal (applies t o non-numeric results) 0 mm[Hg] [facility] ([facility]) Diastolic blood pressure 0 mm[Hg] Normal (applies to non-numeric results) 0 mm[Hg] [facility] ([facility]) Body height 0.00 in Normal (applies to non-numeric resu lts) 0.00 in [facility] ([facility]) Body weight Measured 0.00 lbs Normal (applies to n on-numeric results) 0.00 lbs [facility] ([facility]) Body mass index (BMI) [Ratio] 0.00 kg/m2 No rmal (applies to non-numeric results) 0.00 kg/m2 [facility] ([facility]) Systolic blood pressure 0 mm[Hg] Normal (applies t o non-numeric results) 0 mm[Hg] [facility] ([facility]) Diastolic blood pressure 0 mm[Hg] Normal (applies to non-numeric results) 0 mm[Hg] [facility] ([facility]) Body height 0.00 in Normal (applies to non-numeric resu lts) 0.00 in [facility] Body weight Measured 0.00 lbs Normal (applies to n on-numeric results) 0.00 lbs [facility] ([facility]) Body mass index (BMI) [Ratio] 0.00 kg/m2 No rmal (applies to non-numeric results) 0.00 kg/m2 [facility] Systolic blood pressure 0 mm[Hg] Normal (applies t o non-numeric results) 0 mm[Hg] [facility] ([facility]) Diastolic blood pressure 0 mm[Hg] Normal (applies to non-numeric results) 0 mm[Hg] [facility] ([facility]) ID Date Data Source [id number] 09/22/2020 02:27:59 PM [facility] Name Value Range Interpretation Code Description Data Source(s) TRANSFER FROM [facility]
== END 2021-09-01 05:19 | disposition left against medical advice (07) ==
LOC: M ED 01:50
DX: Z53.21 Procedure and treatment not carried out due to patient leaving prior to being seen by health care provider (principal)

== ENCOUNTER 2021-09-03 03:32 | Emergency (ER) | payer OTHER ==
[~2021-09-03] VITALS: Ht 175.3 cm; Wt 73.0 kg
--- OUTSIDE RECORDS SUMMARY | 2021-09-03 03:37 | CCD ---
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, Moderate: Amphetamine-type sub stance Active 09/02/2021 Medications Rx Norm Medication Route Route Concept Start Date Stop Date Dosage Reggie quency Duration Formula Strength Dosage Form Dosage Form Code Dosage Description Medication Id Account Npid Author First Name Author Last Name Taxonomy Code Taxonomy Desc Phone Number [phone] Invega Sustenna 04/16/2021 234 mg/1.5 mL sy ringe [id number] Kathe Fitzgerald [id number] Nurse Practitioner [id number] [phone] [id number] Zyprexa by mouth [id number] 05/23/2021 09/30/2021 at bedtime 30 5 mg tablet [id number] [id number] Kathe Fitzgerald [id number] Nurse Enrique ctitioner [id number] benztropine by mouth [id number] 05/23/2021 09/30/2021 at bedtime 30 1 mg tablet 69596 [id number] Kathe Fitzgerald [id number] Nurse P ractitioner [phone] [id number] prazosin by mouth [id number] 07/10/2021 09/30/2021 at bedtime 30 1 mg capsule 41276 [id number] Kathe Fitzgerald [id number] Nurse Ian zapata [phone] Social History Social History Element Description Concept Effective Date Smoking Status Unknown if ever smoked [id number] Immunizations No Data in Section Vital Signs No Data in Section Procedures Date Concept Id Description Targeted Site Concept Targeted Site Concept Type 09/02/2021 64976 Injectable Psychotro pic Medication Administration (Injection Only) CPT Patient has no history of implantable de vices Encounters Encounter Start Date End Date Encounter Type Description Diagnosis Di agnosis Desc Location Author First Name Author Last Name Npid Taxonomy Cod e Taxonomy Desc Phone Number Location Addr1 Location Addr2 Location [facility] Location Sta te Location Zip [id number] 09/02/2021 09/02/2021 24318 Injectable Psyc hotropic Medication Administration (Injection Only) F20.9 Schizophrenia, unspecified [facility] Wai Vásquez [phone] [id number] L icensed Practical Nurse [phone] [address] [address] Plan of Treatment No Data in Section Lab Results No Data in Section Instructions No Data in Section Insurance Providers Insurance Id Policy Effective Date Policy Thru Date DueProps N kishore [id number] 2016 [id number]
--- OUTSIDE RECORDS SUMMARY | 2021-09-03 03:38 | CCD ---
Author Author [facility] Organization [facility] Address Unknown Phone Unavailable Support Name Relationship Address Phone Hudson GUTIERREZ, Pasha Next Of Kin [address] [place] [address] Diamante Costa Next Of Kin [address] [place] [address] Dwain Joseph DO Next Of Kin [address] [place] [address] Cameron Bingham MD Next Of Kin [address] [place] [address] SELFGARY Next Of Kin [address] [place] [address] YONI JACK Next Of Kin [address] [place] [address] CORRECTIONAL, AKIACHAK Next Of Kin [address] [place] [address] Monique Conklin MD Next Of Kin [address] [place] [phone] YONI CALHOUN Next Of Kin [address] [place] [address] Isabelle Manning Next Of Kin [address] [place] [address] Pat Gallo DO Next Of Kin [address] [place] [address] DISABLED Next Of Kin Unknown Unavailable [place] Self Next Of Kin [address] [place] [phone] SELF, JUNIOR Next Of Kin [address] [place] [address] UE Next Of Kin Unknown Unavailable SIMON WALL Next Of Kin [address] [place] [address] SELF, JUNIOR [address]CON [address] [place] [address] Unavailable Care Team Providers Care Market Intelligence Consultant Name Role Phone Farden, M Rambo Unavailable [...] Unavailable Gina Nash Unavailable AMILCAR, H ANSELMO CARBIDE DIE MAKER Unavailable Unavailable AMILCAR, H ANSELMO CARBIDE DIE MAKER Unavailable Unavailable AMILCAR, H ANSELMO CARBIDE DIE MAKER Unavailable Unavailable AMILCAR, H ANSELMO CARBIDE DIE MAKER Unavailable Unavailable AMILCAR, H ANSELMO CARBIDE DIE MAKER Unavailable Unavailable AMILCAR, H ANSELMO CARBIDE DIE MAKER Unavailable Unavailable AMILCAR, H ANSELMO CARBIDE DIE MAKER Unavailable Unavailable AMILCAR, H ANSELMO CARBIDE DIE MAKER Unavailable Unavailable AMILCAR, H ANSELMO CARBIDE DIE MAKER Unavailable Unavailable Jossie Marcelino Unavailable Rotella, Jossy [...] Unavailable Escobar, E Victorino GUTIERREZ Unavailable Unavailable Escoabr, E Victorino GUTIERREZ Unavailable Unavailable Escobar, E [...] is protected by Article 27-F of the [facility] Public Health law. If you continue you may have access to information: Regarding HIV / AIDS; Provided by facilities licensed or operated by the [facility] Office of Mental Health; or Provided by the [facility] Office for People With Developmental Disabilities. If such information is present, then the following [facility] mandated warning applies: This information has [...] law may result in a fine or chcf sentence or both. A general authorization for the release of medical or other information is NOT sufficient authorization for further disc losure. Allergies and Adverse Reactions Type Description Substance Reaction Status Data Source(s ) Drug allergy No Known Allergies No Known Allergies [facility] Propensity to adverse reactions NO KNOWN ALLERGIES NO KNOWN ALLERGIES [facility] Encounters Encounter Providers Location Date Indications Data Source(s ) Injectable Psychotropic Medication Administration (Inj ection Only) Attender: Thalia Crareno [facility] 09/02/2021 10:30:00 AM EDT - 09/02/2021 10:30:00 AM EDT [facility] ([facility]) Attender: Thalia Carreno 09/02/2021 12:00:00 AM EDT [facility] ([facility]) Injectable Medication Administration w/ Monitoring & E ducation Attender: [facility] 07/29/2021 02:30:00 AM EDT - 07/29/2021 02:30:00 AM EDT [facility] ([facility]) Attender: Pam Isbellpo 07/29/2021 12:00:00 AM EDT [facility] ([facility]) Injectable Medication Administration w/ Monitoring & E ducation Attender: Thalia Carreno [facility] 06/24/2021 10:45:00 AM EDT - 06/24/2021 10:45:00 AM EDT [facility] ([facility]) Attender: Thalia Carreno 06/24/2021 12:00:00 AM EDT [facility] ([facility]) Injectable Psychotropic Medication Administration (Inj ection Only) Attender: Thalia [facility] 05/27/2021 08:15:00 AM EDT - 05/27/2021 08:15:00 AM EDT [facility] ([facility]) Attender: Thalia Carreno 05/27/2021 12:00:00 AM EDT [facility] ([facility]) Brief Individual Psychotherapy - 30 min Attender: Gina yun [facility] 05/13/2021 08:30:00 AM EDT - 05/13/2021 08:30:00 AM EDT [facility] ([facility]) Attender: Gina Nash 05/13/2021 12:00:00 AM EDT [facility] ([facility]) Attender: Pam Juarez 04/04/2021 12:00:00 AM EDT [facility] ([facility]) Injectable Medication Administration w/ Monitoring & E ducation Attender: Pam Juarez [facility] 04/03/2021 09:00:00 AM EDT - 04/03/2021 09:00:00 AM EDT [facility] ([facility]) Outpatient Attender: ANSELMO APONTE NP [facility] Mike garcía 04/03/2021 08:30:00 AM EDT - 04/03/2021 08:30:00 AM EDT [facility] ([facility]) Attender: ANSELMO APONTE NP 04/03/2021 12:00:00 AM EDT [facility] ([facility]) Outpatient Attender: ANSELMO APONTE NP [facility] Mike garcía 03/27/2021 11:00:00 AM EDT - 03/27/2021 11:00:00 AM EDT [facility] ([facility]) Attender: ANSELMO APONTE NP 03/27/2021 12:00:00 AM EDT [facility] ([facility]) Outpatient Attender: ANSELMO APONTE NP [facility] Mike garcía 03/19/2021 03:00:00 AM EDT - 03/19/2021 03:00:00 AM EDT [facility] ([facility]) Attender: ANSELMO APONTE NP 03/19/2021 12:00:00 AM EDT [facility] ([facility]) Inpatient Attender: JONNATHAN TRACY MDAdmitter: JONNATHAN TRACY MD 02/27/2021 08:12:00 PM EDT - 03/08/2021 03:27:00 PM EDT Suicidal Ideation / Homicidal Ideation [facility] Suicidal Ideation / Homicidal Ideation Patient discharged. Outpatient Attender: JONNATHAN TRACY MDAdmi tter: JONNATHAN TRACY MDConsultant: JONNATHAN TRACY MD 02/27/2021 08:12:00 PM EDT Suicidal Ideation / H omicidal Ideation [facility] Suicidal Ideation / Homicidal Ideation Outpatient Attender: JONNATHAN TRACY MDAdmi tter: JONNATHAN TRACY MDConsultant: JONNATHAN TRACY MD 02/27/2021 08:12:00 PM EDT Suicidal Ideation / H omicidal Ideation [facility] Suicidal Ideation / Homicidal Ideation Outpatient Attender: Castro ColonAdmitter : JONNATHAN TRACY MDConsultant: JONNATHAN TRACY MD 02/27/2021 08:12:00 PM EDT Suicidal Ideation / H omicidal Ideation [facility] Suicidal Ideation / Homicidal Ideation Outpatient Attender: JONNATHAN TRACY MDAdmi tter: JONNATHAN TRACY MDConsultant: JONNATHAN TRACY MD 02/27/2021 08:12:00 PM EDT Suicidal Ideation / H omicidal Ideation [facility] Suicidal Ideation / Homicidal Ideation Outpatient Attender: JONNATHAN TRACY MDAdmi tter: JONNATHAN TRACY MDConsultant: JONNATHAN TRACY MD 02/27/2021 08:12:00 PM EDT Suicidal Ideation / H omicidal Ideation [facility] Suicidal Ideation / Homicidal Ideation Outpatient Attender: JONNATHAN TRACY MDAdmi tter: JONNATHAN TRACY MDConsultant: JONNATHAN TRACY MD 02/27/2021 08:12:00 PM EDT Suicidal Ideation / H omicidal Ideation [facility] Suicidal Ideation / Homicidal Ideation Outpatient Attender: Castro ColonAdmitter : JONNATHAN TRACY MDConsultant: JONNATHAN TRACY MD 02/27/2021 08:12:00 PM EDT Suicidal Ideation / H omicidal Ideation [facility] Suicidal Ideation / Homicidal Ideation Outpatient Attender: Castro ZayasAdmitter : JONNATHAN TRACY MDConsultant: JONNATHAN TRACY MD 02/27/2021 08:12:00 PM EDT Suicidal Ideation / H omicidal Ideation [facility] Suicidal Ideation / Homicidal Ideation Outpatient Attender: JONNATHAN TRACY MDAdmi tter: JONNATHAN TRACY MDConsultant: JONNATHAN TRACY MD 02/27/2021 08:12:00 PM EDT Suicidal Ideation / H omicidal Ideation [facility] Suicidal Ideation / Homicidal Ideation Outpatient Attender: Rambo Pedroza mitter: JONNATHAN TRACY MDConsultant: JONNATHAN TRACY MD 02/27/2021 08:12:00 PM EDT Suicidal Ideation / H omicidal Ideation [facility] Suicidal Ideation / Homicidal Ideation Outpatient Attender: ANSELMO APONTE NP [facility] Mike garcía 02/12/2021 10:30:00 AM EDT - 02/12/2021 10:30:00 AM EDT [facility] ([facility]) Attender: ANSELMO APONTE NP 02/12/2021 12:00:00 AM EDT [facility] ([facility]) Outpatient Attender: ANSELMO APONTE NP [facility] Mike raquel 02/07/2021 11:30:00 AM EDT - 02/07/2021 11:30:00 AM EDT [facility] ([facility]) Attender: ANSELMO APONTE NP 02/07/2021 12:00:00 AM EDT [facility] ([facility]) Brief Individual Psychotherapy - 30 min Attender: Gina yun [facility] Maria Alejandra 02/01/2021 02:00:00 AM EDT - 02/01/2021 02:00:00 AM EDT [facility] ([facility]) Attender: Gina Nash 02/01/2021 12:00:00 AM EDT [facility] ([facility]) Injectable Psychotropic Medication Administration (Inj ection Only) Att[facility]: [facility] 01/23/2021 10:00:00 AM EDT - 01/23/2021 10:00:00 AM EDT [facility] ([facility]) Outpatient Attender: ANSELMO APONTE NP [facility] Mike garcía 01/23/2021 09:15:00 AM EDT - 01/23/2021 09:15:00 AM EDT [facility] ([facility]) Attender: ANSELMO APONTE NP 01/23/2021 12:00:00 AM EDT [facility] ([facility]) Attender: Thalia Carreno 01/23/2021 12:00:00 AM EDT [facility] ([facility]) Injectable Medication Administration w/ Monitoring & E ducation Attender: Pam Juarez [facility] 01/18/2021 11:00:00 AM EDT - 01/18/2021 11:00:00 AM EDT [facility] ([facility]) Attender: Pam Juarez 01/18/2021 12:00:00 AM EDT [facility] ([facility]) Outpatient Attender: ANSELMO APONTE NP [facility] Mike garcía 01/17/2021 09:00:00 AM EDT - 01/17/2021 09:00:00 AM EDT [facility] ([facility]) Attender: ANSELMO APONTE NP 01/17/2021 12:00:00 AM EDT [facility] ([facility]) Outpatient Attender: ANSELMO APONTE NP [facility] Mike garcía 01/01/2021 02:30:00 AM EST - 01/01/2021 02:30:00 AM EST [facility] ([facility]) Attender: ANSELMO APONTE NP 01/01/2021 12:00:00 AM EST [facility] ([facility]) Injectable Psychotropic Medication Administration (Inj ection Only) Attender: Jossie Marcelino [facility] 12/28/2020 10:30:00 AM EST - 12/28/2020 10:30:00 AM EST [facility] ([facility]) Attender: Jossie Ryland 12/28/2020 12:00:00 AM EST [facility] ([facility]) Outpatient Attender: Victorino Escobar MD [facility] Mike garcía 12/20/2020 09:30:00 AM EST - 12/20/2020 09:30:00 AM EST [facility] ([facility]) Attender: Victorino Escobar MD 12/20/2020 12:00:00 AM EST [facility] ([facility]) Outpatient Attender: Victorino Escobar MD [facility] 12/06/2020 12:30:00 PM EST - 12/06/2020 12:30:00 PM EST [facility] ([facility]) Attender: Victorino Escobar MD 12/06/2020 12:00:00 AM EST [facility] ([facility]) Injectable Medication Administration w/ Monitoring & E ducation Attender: ORGANIZATION NPI ALIASES [facility] 11/15/2020 11:15: 00 AM EST - 11/15/2020 11:15:00 AM EST [facility] ([facility]) Outpatient Attender: Victorino Escobar MD [facility] 11/15/2020 11:00:00 AM EST - 11/15/2020 11:00:00 AM EST [facility] ([facility]) Attender: ORGANIZATION NPI ALIASES * 11/15/2020 12:00:00 AM EST [facility] ([facility]) Attender: Victorino Escobar MD 11/15/2020 12:00:00 AM EST [facility] ([facility]) Injectable Psychotropic Medication Administration (Inj ection Only) Attender: Jossy Mejia [facility] 10/18/2020 10:30:00 AM EST - 10/18/2020 10:30:00 AM EST [facility] ([facility]) Attender: Jossy Mejia 10/18/2020 12:00:00 AM EST [facility] ([facility]) Injectable Psychotropic Medication Administration (Inj ection Only) Attender: Jossy Mejia [facility] 10/15/2020 11:00:00 AM EST - 10/15/2020 11:00:00 AM EST [facility] ([facility]) Attender: Jossy Mejia 10/15/2020 12:00:00 AM EST [facility] ([facility]) Injectable Psychotropic Medication Administration (Inj ection Only) Attender: Jossy Mejia [facility] 10/04/2020 10:30:00 AM EST - 10/04/2020 10:30:00 AM EST [facility] ([facility]) Outpatient Attender: KALLI MOLINAURSZULA [facility] 10/04/2020 10:00:00 AM EST - 10/04/2020 10:00:00 AM EST [facility] ([facility]) Attender: Jossy Mejia 10/04/2020 12:00:00 AM EST [facility] ([facility]) Attender: KALLI MOLINAURSZULA 10/04/2020 12:00: 00 AM EST [facility] ([facility]) Outpatient Referrer: [facility] [place] 09/22/2020 0 2:27:00 PM EST schizophrenia, hallucinations, substance abuse [facility] schizophrenia, hallucinations, substance abuse Injectable Psychotropic Medication Administration (Inj ection Only) Attender: Jossy Mejia [facility] 09/12/2020 09:30:00 AM EST - 09/12/2020 09:30:00 AM EST [facility] ([facility]) Outpatient Attender: KALLI MOLINAURSZULA [facility] 09/12/2020 09:00:00 AM EST - 09/12/2020 09:00:00 AM EST [facility] ([facility]) Attender: KALLI MOLINAURSZULA 09/12/2020 12:00: 00 AM EST [facility] ([facility]) Attender: Jossy Mejia 09/12/2020 12:00:00 AM EST [facility] ([facility]) Outpatient Attender: KALLI IGLESIAS [facility] Lynn mora 08/10/2020 02:00:00 AM EDT - 08/10/2020 02:00:00 AM EDT [facility] ([facility] 12:00: 00 AM EDT [facility] ([facility]) Injectable Psychotropic Medication Administration (Inj ection Only) Attender: Jossy Mejia [facility] 07/13/2020 02:00:00 AM EDT - 07/13/2020 02:00:00 AM EDT [facility] ([facility]) Attender: Jossy Mejia 07/13/2020 12:00:00 AM EDT [facility] ([facility]) Outpatient Attender: Pasha Treviño MD 07/12/2020 02:46:50 PM EDT [facility] Functional Status Medications Medication Brand Name Start Date Product Form Dose Route Admi nistrative Instructions Pharmacy Instructions Status Indications Reaction Description Data Source(s) Prazosin 1 MG Oral Capsule prazosin 07/10/2021 12:00:00 AM EDT 1 mg by mouth completed <td ID="Medicat ionRxNorm_4">707300</td><td ID="MedicationMedication_4">prazosin</td><td ID="MedicationRoute_4">by mouth</td><td ID="MedicationRouteConcept_4">O62822</td><td ID="MedicationStartDate_4">07/10/2021</td><td ID="MedicationStopDate_4">09/30/2021</td><td ID="MedicationDosageFrequency_4">at bedtime</td><td ID="MedicationDuration_4">30</td><td ID="MedicationFormulaStrength_4">1 mg</td><td ID="MedicationDosageForm_4">capsule</td><td ID="MedicationDosageFormCode_4"></td><td ID="MedicationDosageDescription_4"></td><td ID="MedicationMedicationId_4">[id number]</td><td ID="MedicationAccount_4">[id number]</td><td ID="MedicationNpid_4">[id number]</td><td ID="MedicationAuthorFirstName_4">Anselmo</td><td ID="MedicationAuthorLastName_4">Amilcar</td><td ID="MedicationTaxonomyCode_4">[id number]</td><td ID="MedicationTaxonomyDesc_4">Nurse Practitioner</td><td ID="MedicationPhoneNumber_4">[phone]</td> [facility] ([facility]) olanzapine 5 MG Oral Tablet [Zyprexa] Zyprexa 05/23/2021 12:00:00 AM EDT 5 mg by mouth completed <td ID="Medica tionRxNorm_2">973640</td><td ID="MedicationMedication_2">Zyprexa</td><td ID="MedicationRoute_2">by mouth</td><td ID="MedicationRouteConcept_2">N50972</td><td ID="MedicationStartDate_2">05/23/2021</td><td ID="MedicationStopDate_2">09/30/2021</td><td ID="MedicationDosageFrequency_2">at bedtime</td><td ID="MedicationDuration_2">30</td><td ID="MedicationFormulaStrength_2">5 mg</td><td ID="MedicationDosageForm_2">tablet</td><td ID="MedicationDosageFormCode_2"></td><td ID="MedicationDosageDescription_2"></td><td ID="MedicationMedicationId_2">[id number]</td><td ID="MedicationAccount_2">[id number]</td><td ID="MedicationNpid_2">[id number]</td><td ID="MedicationAuthorFirstName_2">Anselmo</td><td ID="MedicationAuthorLastName_2">Amilcar</td><td ID="MedicationTaxonomyCode_2">[id number]</td><td ID="MedicationTaxonomyDesc_2">Nurse Practitioner</td><td ID="MedicationPhoneNumber_2">[phone]</td> [facility] ([facility]) benztropine mesylate 1 MG Oral Tablet benztropine 05/23/2021 12:00 :00 AM EDT 1 mg by mouth completed <td ID="Me dicationRxNorm_3">852924</td><td ID="MedicationMedication_3">benztropine</td><td ID="MedicationRoute_3">by mouth</td><td ID="MedicationRouteConcept_3">R44495</td><td ID="MedicationStartDate_3">05/23/2021</td><td ID="MedicationStopDate_3">09/30/2021</td><td ID="MedicationDosageFrequency_3">at bedtime</td><td ID="MedicationDuration_3">30</td><td ID="MedicationFormulaStrength_3">1 mg</td><td ID="MedicationDosageForm_3">tablet</td><td ID="MedicationDosageFormCode_3"></td><td ID="MedicationDosageDescription_3"></td><td ID="MedicationMedicationId_3">[id number]</td><td ID="MedicationAccount_3">[id number]</td><td ID="MedicationNpid_3">[id number]</td><td ID="MedicationAuthorFirstName_3">Anselmo</td><td ID="MedicationAuthorLastName_3">Amilcar</td><td ID="MedicationTaxonomyCode_3">[id number]</td><td ID="MedicationTaxonomyDesc_3">Nurse Practitioner</td><td ID="MedicationPhoneNumber_3">[phone]</td> [facility] 1.5 ML paliperidone palmitate 156 MG/ML Prefilled Syri nge [Invega] Invega Sustenna 04/16/2021 12:00:00 AM EDT 234 mg/1.5 compl eted <td ID="MedicationRxNorm_1">223822</td><td ID="MedicationMedication_1">Invega Sustenna</td><td ID="MedicationRoute_1"></td><td ID="MedicationRouteConcept_1"></td><td ID="MedicationStartDate_1">04/16/2021</td><td ID="MedicationStopDate_1"></td><td ID="MedicationDosageFrequency_1"></td><td ID="MedicationDuration_1"></td><td ID="MedicationFormulaStrength_1">234 mg/1.5 mL</td><td ID="MedicationDosageForm_1">syringe</td><td ID="MedicationDosageFormCode_1"></td><td ID="MedicationDosageDescription_1"> </td><td ID="MedicationMedicationId_1">[id number]</td><td ID="MedicationAccount_1">[id number]</td><td ID="MedicationNpid_1">[id number]</td><td ID="MedicationAuthorFirstName_1">Anselmo</td><td ID="MedicationAuthorLastName_1">Amilcar</td><td ID="MedicationTaxonomyCode_1">[id number]</td><td ID="MedicationTaxonomyDesc_1">Nurse Practitioner</td><td ID="MedicationPhoneNumber_1">[phone]</td> [facility] ([facility]) 2.625 ML paliperidone palmitate 312 MG/ML Prefilled Sy ringe [Invega] Invega Socorroza 04/03/2021 12:00:00 AM EDT 819 mg/2.625 compl eted <td ID="MedicationRxNorm_3">5256036</td><td ID="MedicationMedication_3">Invega Trinza</td><td ID="MedicationRoute_3">intramuscularly</td><td ID="MedicationRouteConcept_3"></td><td ID="MedicationStartDate_3">04/03/2021</td><td ID="MedicationStopDate_3">07/02/2021</td><td ID="MedicationDosageFrequency_3">every three months</td><td ID="MedicationDuration_3">90</td><td ID="MedicationFormulaStrength_3">819 mg/2.625 mL</td><td ID="MedicationDosageForm_3">syringe</td><td ID="MedicationDosageFormCode_3"></td><td ID="MedicationDosageDescription_3"></td><td ID="MedicationMedicationId_3">[id number]</td><td ID="MedicationAccount_3">[id number]</td><td ID="MedicationNpid_3">[id number]</td><td ID="MedicationAuthorFirstName_3">Anselmo</td><td ID="MedicationAuthorLastName_3">Amilcar</td><td ID="MedicationTaxonomyCode_3">[id number]</td><td ID="MedicationTaxonomyDesc_3"> Nurse Practitioner</td><td ID="MedicationPhoneNumber_3">[phone]</td> [facility] ([facility]) 2.625 ML paliperidone palmitate 312 MG/ML Prefilled Sy ringe [Invega] Invega Socorroza 04/03/2021 12:00:00 AM EDT 819 mg/2.625 compl eted <td ID="MedicationRxNorm_4">[id number]</td><td ID="MedicationMedication_4">Invega Trinza</td><td ID="MedicationRoute_4">intramuscularly</td><td ID="MedicationRouteConcept_4"></td><td ID="MedicationStartDate_4">04/03/2021</td><td ID="MedicationStopDate_4">07/02/2021</td><td ID="MedicationDosageFrequency_4">every three months</td><td ID="MedicationDuration_4">90</td><td ID="MedicationFormulaStrength_4">819 mg/2.625 mL</td><td ID="MedicationDosageForm_4">syringe</td><td ID="MedicationDosageFormCode_4"></td><td ID="MedicationDosageDescription_4"></td><td ID="MedicationMedicationId_4">[id number]</td><td ID="MedicationAccount_4">[id number]</td><td ID="MedicationNpid_4">[id number]</td><td ID="MedicationAuthorFirstName_4">Anselmo</td><td ID="MedicationAuthorLastName_4">Amilcar</td><td ID="MedicationTaxonomyCode_4">[id number]</td><td ID="MedicationTaxonomyDesc_4"> Nurse Practitioner</td><td ID="MedicationPhoneNumber_4">[phone]</td> [facility] ([facility]) haloperidol decanoate haloperidol decanoate 04/03/2021 12:00:00 AM EDT 100 mg/mL completed <td ID="Me dicationRxNorm_2">1526287</td><td ID="MedicationMedication_2">haloperidol decanoate</td><td ID="MedicationRoute_2">intramuscularly</td><td ID="MedicationRouteConcept_2"> </td><td ID="MedicationStartDate_2">04/03/2021</td><td ID="MedicationStopDate_2">04/03/2021</td><td ID="MedicationDosageFrequency_2">every four weeks</td><td ID="MedicationDuration_2">28</td><td ID="MedicationFormulaStrength_2">100 mg/mL</td><td ID="MedicationDosageForm_2">solution</td><td ID="MedicationDosageFormCode_2"></td><td ID="MedicationDosageDescription_2"></td><td ID="MedicationMedicationId_2">[id number]</td><td ID="MedicationAccount_2">[id number]</td><td ID="MedicationNpid_2">[id number]</td><td ID="MedicationAuthorFirstName_2">Anselmo</td><td ID="MedicationAuthorLastName_2">Amilcar</td><td ID="MedicationTaxonomyCode_2">[id number]</td><td ID="MedicationTaxonomyDesc_2"> Nurse Practitioner</td><td ID="MedicationPhoneNumber_2">[phone]</td> [facility] benztropine mesylate 1 MG Oral Tablet benztropine 04/03/2021 12:00 :00 AM EDT 1 mg by mouth completed <td ID="Me dicationRxNorm_2">092626</td><td ID="MedicationMedication_2">benztropine</td><td ID="MedicationRoute_2">by mouth</td><td ID="MedicationRouteConcept_2">K96899</td><td ID="MedicationStartDate_2">04/03/2021</td><td ID="MedicationStopDate_2">05/03/2021</td><td ID="MedicationDosageFrequency_2">at bedtime</td><td ID="MedicationDuration_2">30</td><td ID="MedicationFormulaStrength_2">1 mg</td><td ID="MedicationDosageForm_2">tablet</td><td ID="MedicationDosageFormCode_2"></td><td ID="MedicationDosageDescription_2"></td><td ID="MedicationMedicationId_2">[id number]</td><td ID="MedicationAccount_2">[id number]</td><td ID="MedicationNpid_2">[id number]</td><td ID="MedicationAuthorFirstName_2">Anselmo</td><td ID="MedicationAuthorLastName_2">Amilcar</td><td ID="MedicationTaxonomyCode_2">[id number]</td><td ID="MedicationTaxonomyDesc_2">Nurse Practitioner</td><td ID="MedicationPhoneNumber_2">[phone]</td> [facility] ([facility]) olanzapine 5 MG Oral Tablet [Zyprexa] Zyprexa 04/03/2021 12:00:00 AM EDT 5 mg by mouth completed <td ID="Medica tionRxNorm_1">815799</td><td ID="MedicationMedication_1">Zyprexa</td><td ID="MedicationRoute_1">by mouth</td><td ID="MedicationRouteConcept_1">L37458</td><td ID="MedicationStartDate_1">04/03/2021</td><td ID="MedicationStopDate_1">05/03/2021</td><td ID="MedicationDosageFrequency_1">at bedtime</td><td ID="MedicationDuration_1">30</td><td ID="MedicationFormulaStrength_1">5 mg</td><td ID="MedicationDosageForm_1">tablet</td><td ID="MedicationDosageFormCode_1"></td><td ID="MedicationDosageDescription_1"></td><td ID="MedicationMedicationId_1">[id number]</td><td ID="MedicationAccount_1">[id number]</td><td ID="MedicationNpid_1">[id number]</td><td ID="MedicationAuthorFirstName_1">Anselmo</td><td ID="MedicationAuthorLastName_1">Amilcar</td><td ID="MedicationTaxonomyCode_1">[id number]</td><td ID="MedicationTaxonomyDesc_1">Nurse Practitioner</td><td ID="MedicationPhoneNumber_1">[phone]</td> [facility] ([facility]) 2.625 ML paliperidone palmitate 312 MG/ML Prefilled Sy ringe [Invega] Invsuleiman Roth 04/03/2021 12:00:00 AM EDT 819 mg/2.625 compl eted <td ID="MedicationRxNorm_5">[id number]</td><td ID="MedicationMedication_5">Invega Trinza</td><td ID="MedicationRoute_5">intramuscularly</td><td ID="MedicationRouteConcept_5"></td><td ID="MedicationStartDate_5">04/03/2021</td><td ID="MedicationStopDate_5">07/02/2021</td><td ID="MedicationDosageFrequency_5">every three months</td><td ID="MedicationDuration_5">90</td><td ID="MedicationFormulaStrength_5">819 mg/2.625 mL</td><td ID="MedicationDosageForm_5">syringe</td><td ID="MedicationDosageFormCode_5"></td><td ID="MedicationDosageDescription_5"></td><td ID="MedicationMedicationId_5">[id number]</td><td ID="MedicationAccount_5">[id number]</td><td ID="MedicationNpid_5">[id number]</td><td ID="MedicationAuthorFirstName_5">Anselmo</td><td ID="MedicationAuthorLastName_5">Amilcar</td><td ID="MedicationTaxonomyCode_5">[id number]</td><td ID="MedicationTaxonomyDesc_5"> Nurse Practitioner</td><td ID="MedicationPhoneNumber_5">[phone]</td> [facility] ([facility]) benztropine mesylate 1 MG Oral Tablet benztropine 04/03/2021 12:00 :00 AM EDT 1 mg by mouth completed <td ID="Me dicationRxNorm_4">600534</td><td ID="MedicationMedication_4">benztropine</td><td ID="MedicationRoute_4">by mouth</td><td ID="MedicationRouteConcept_4">A01488</td><td ID="MedicationStartDate_4">04/03/2021</td><td ID="MedicationStopDate_4">05/03/2021</td><td ID="MedicationDosageFrequency_4">at bedtime</td><td ID="MedicationDuration_4">30</td><td ID="MedicationFormulaStrength_4">1 mg</td><td ID="MedicationDosageForm_4">tablet</td><td ID="MedicationDosageFormCode_4"></td><td ID="MedicationDosageDescription_4"></td><td ID="MedicationMedicationId_4">[id number]</td><td ID="MedicationAccount_4">[id number]</td><td ID="MedicationNpid_4">[id number]</td><td ID="MedicationAuthorFirstName_4">Anselmo</td><td ID="MedicationAuthorLastName_4">Amilcar</td><td ID="MedicationTaxonomyCode_4">[id number]</td><td ID="MedicationTaxonomyDesc_4">Nurse Practitioner</td><td ID="MedicationPhoneNumber_4">[phone]</td> [facility] ([facility]) olanzapine 5 MG Oral Tablet [Zyprexa] Zyprexa 04/03/2021 12:00:00 AM EDT 5 mg by mouth completed <td ID="Medica tionRxNorm_3">259198</td><td ID="MedicationMedication_3">Zyprexa</td><td ID="MedicationRoute_3">by mouth</td><td ID="MedicationRouteConcept_3">X20820</td><td ID="MedicationStartDate_3">04/03/2021</td><td ID="MedicationStopDate_3">05/03/2021</td><td ID="MedicationDosageFrequency_3">at bedtime</td><td ID="MedicationDuration_3">30</td><td ID="MedicationFormulaStrength_3">5 mg</td><td ID="MedicationDosageForm_3">tablet</td><td ID="MedicationDosageFormCode_3"></td><td ID="MedicationDosageDescription_3"></td><td ID="MedicationMedicationId_3">[id number]</td><td ID="MedicationAccount_3">[id number]</td><td ID="MedicationNpid_3">[id number]</td><td ID="MedicationAuthorFirstName_3">Anselmo</td><td ID="MedicationAuthorLastName_3">Amilcar</td><td ID="MedicationTaxonomyCode_3">[id number]</td><td ID="MedicationTaxonomyDesc_3">Nurse Practitioner</td><td ID="MedicationPhoneNumber_3">[phone]</td> [facility] ([facility]) 2.625 ML paliperidone palmitate 312 MG/ML Prefilled Sy ringe [Invega] Invega Trinza 04/03/2021 12:00:00 AM EDT 819 mg/2.625 compl eted <td ID="MedicationRxNorm_2">[id number]</td><td ID="MedicationMedication_2">Invega Trinza</td><td ID="MedicationRoute_2">intramuscularly</td><td ID="MedicationRouteConcept_2"></td><td ID="MedicationStartDate_2">04/03/2021</td><td ID="MedicationStopDate_2">07/02/2021</td><td ID="MedicationDosageFrequency_2">every three months</td><td ID="MedicationDuration_2">90</td><td ID="MedicationFormulaStrength_2">819 mg/2.625 mL</td><td ID="MedicationDosageForm_2">syringe</td><td ID="MedicationDosageFormCode_2"></td><td ID="MedicationDosageDescription_2"></td><td ID="MedicationMedicationId_2">[id number]</td><td ID="MedicationAccount_2">[id number]</td><td ID="MedicationNpid_2">[id number]</td><td ID="MedicationAuthorFirstName_2">Anselmo</td><td ID="MedicationAuthorLastName_2">Amilcar</td><td ID="MedicationTaxonomyCode_2">[id number]</td><td ID="MedicationTaxonomyDesc_2"> Nurse Practitioner</td><td ID="MedicationPhoneNumber_2">[phone]</td> [facility] ([facility]) haloperidol decanoate haloperidol decanoate 10/04/2020 12:00:00 AM EST 100 mg/mL completed <td ID="Me dicationRxNorm_1">4014245</td><td ID="MedicationMedication_1">haloperidol decanoate</td><td ID="MedicationRoute_1">intramuscularly</td><td ID="MedicationRouteConcept_1"> </td><td ID="MedicationStartDate_1">10/04/2020</td><td ID="MedicationStopDate_1">04/03/2021</td><td ID="MedicationDosageFrequency_1">as directed</td><td ID="MedicationDuration_1">21</td><td ID="MedicationFormulaStrength_1">100 mg/mL</td><td ID="MedicationDosageForm_1">solution</td><td ID="MedicationDosageFormCode_1"></td><td ID="MedicationDosageDescription_1"></td><td ID="MedicationMedicationId_1">[id number]</td><td ID="MedicationAccount_1">[id number]</td><td ID="MedicationNpid_1">[id number]</td><td ID="MedicationAuthorFirstName_1">Victorino</td><td ID="MedicationAuthorLastName_1">Escobar</td><td ID="MedicationTaxonomyCode_1">[id number]</td><td ID="MedicationTaxonomyDesc_1"> Psychiatry</td><td ID="MedicationPhoneNumber_1">[phone]</td> [facility] ([facility]) 100 mg/mL 10/02/2020 12:00:00 AM EST [...] 50 mg by mouth completed <td ID="Medic ationRxNorm_5">938853</td><td ID="MedicationMedication_5">trazodone</td><td ID="MedicationRoute_5">by mouth</td><td ID="MedicationRouteConcept_5">Q23275</td><td ID="MedicationStartDate_5">09/12/2020</td><td ID="MedicationStopDate_5">10/12/2020</td><td ID="MedicationDosageFrequency_5">every night</td><td ID="MedicationDuration_5">30</td><td ID="MedicationFormulaStrength_5">50 mg</td><td ID="MedicationDosageForm_5">tablet</td><td ID="MedicationDosageFormCode_5"></td><td ID="MedicationDosageDescription_5"></td><td ID="MedicationMedicationId_5">[id number]</td><td ID="MedicationAccount_5">[id number]</td><td ID="MedicationNpid_5">[id number]</td><td ID="MedicationAuthorFirstName_5">Kalli</td><td ID="MedicationAuthorLastName_5">Egorho</td><td ID="MedicationTaxonomyCode_5">[id number]</td><td ID="MedicationTaxonomyDesc_5">Nurse Practitioner</td><td ID="MedicationPhoneNumber_5">[phone]</td> [facility] ([facility]) Trazodone Hydrochloride 50 MG Oral Tablet trazodone 2019 12:00:00 AM EST 50 mg by mouth completed <td ID="Medic ationRxNorm_1">991076</td><td ID="MedicationMedication_1">trazodone</td><td ID="MedicationRoute_1">by mouth</td><td ID="MedicationRouteConcept_1">F56410</td><td ID="MedicationStartDate_1">09/12/2020</td><td ID="MedicationStopDate_1">10/12/2020</td><td ID="MedicationDosageFrequency_1">every night</td><td ID="MedicationDuration_1">30</td><td ID="MedicationFormulaStrength_1">50 mg</td><td ID="MedicationDosageForm_1">tablet</td><td ID="MedicationDosageFormCode_1"></td><td ID="MedicationDosageDescription_1"></td><td ID="MedicationMedicationId_1">[id number]</td><td ID="MedicationAccount_1">[id number]</td><td ID="MedicationNpid_1">[id number]</td><td ID="MedicationAuthorFirstName_1">Kalli</td><td ID="MedicationAuthorLastName_1">Egorho</td><td ID="MedicationTaxonomyCode_1">[id number]</td><td ID="MedicationTaxonomyDesc_1">Nurse Practitioner</td><td ID="MedicationPhoneNumber_1">[phone]</td> [facility] ([facility]) Haldol Decanoate Haldol Decanoate 09/12/2020 12:00:00 AM EST 100 mg/mL completed <td ID="MedicationRx Norm_4">[id number]</td><td ID="MedicationMedication_4">Haldol Decanoate</td><td ID="MedicationRoute_4">intramuscularly</td><td ID="MedicationRouteConcept_4"></td><td ID="MedicationStartDate_4">09/12/2020</td><td ID="MedicationStopDate_4">09/15/2020</td><td ID="MedicationDosageFrequency_4">as directed</td><td ID="MedicationDuration_4">1</td><td ID="MedicationFormulaStrength_4">100 mg/mL</td><td ID="MedicationDosageForm_4">solution</td><td ID="MedicationDosageFormCode_4"></td><td ID="MedicationDosageDescription_4"></td><td ID="MedicationMedicationId_4">[id number]</td><td ID="MedicationAccount_4">[id number]</td><td ID="MedicationNpid_4">[id number]</td><td ID="MedicationAuthorFirstName_4">Kalli</td><td ID="MedicationAuthorLastName_4">Egorho</td><td ID="MedicationTaxonomyCode_4">[id number]</td><td ID="MedicationTaxonomyDesc_4">Nurse Practitioner</td><td ID="MedicationPhoneNumber_4">[phone]</td> [facility] ([facility]) quetiapine 300 MG Oral Tablet quetiapine 01/06/2020 12:00:00 AM EST 300 mg completed <td ID="Medicat ionRxNorm_4">861251</td><td ID="MedicationMedication_4">quetiapine</td><td ID="MedicationRoute_4"></td><td ID="MedicationRouteConcept_4"></td><td ID="MedicationStartDate_4">01/06/2020</td><td ID="MedicationStopDate_4">01/05/2021</td><td ID="MedicationDosageFrequency_4">at bedtime</td><td ID="MedicationDuration_4">30</td><td ID="MedicationFormulaStrength_4">300 mg</td><td ID="MedicationDosageForm_4">tablet</td><td ID="MedicationDosageFormCode_4"></td><td ID="MedicationDosageDescription_4"></td><td ID="MedicationMedicationId_4">[id number]</td><td ID="MedicationAccount_4">[id number]</td><td ID="MedicationNpid_4">[id number]</td><td ID="MedicationAuthorFirstName_4">Dane</td><td ID="MedicationAuthorLastName_4">Nicollet</td><td ID="MedicationTaxonomyCode_4">[id number]</td><td ID="MedicationTaxonomyDesc_4">Psychiatric/Mental Health</td><td ID="MedicationPhoneNumber_4">[phone]</td> [facility] ([facility]) quetiapine 300 MG Oral Tablet quetiapine 01/06/2020 12:00:00 AM EST 300 mg completed <td ID="Medicat ionRxNorm_1">[id number]</td><td ID="MedicationMedication_1">quetiapine</td><td ID="MedicationRoute_1"></td><td ID="MedicationRouteConcept_1"></td><td ID="MedicationStartDate_1">01/06/2020</td><td ID="MedicationStopDate_1">01/05/2021</td><td ID="MedicationDosageFrequency_1">at bedtime</td><td ID="MedicationDuration_1">30</td><td ID="MedicationFormulaStrength_1">300 mg</td><td ID="MedicationDosageForm_1">tablet</td><td ID="MedicationDosageFormCode_1"></td><td ID="MedicationDosageDescription_1"></td><td ID="MedicationMedicationId_1">[id number]</td><td ID="MedicationAccount_1">[id number]</td><td ID="MedicationNpid_1">[id number]</td><td ID="MedicationAuthorFirstName_1">Dane</td><td ID="MedicationAuthorLastName_1">Loida</td><td ID="MedicationTaxonomyCode_1">[id number]</td><td ID="MedicationTaxonomyDesc_1">Psychiatric/Mental Health</td><td ID="MedicationPhoneNumber_1">[phone]</td> [facility] ([facility]) quetiapine 300 MG Oral Tablet quetiapine 01/06/2020 12:00:00 AM EST 300 mg completed <td ID="Medicat ionRxNorm_5">753741</td><td ID="MedicationMedication_5">quetiapine</td><td ID="MedicationRoute_5"></td><td ID="MedicationRouteConcept_5"></td><td ID="MedicationStartDate_5">01/06/2020</td><td ID="MedicationStopDate_5">01/05/2021</td><td ID="MedicationDosageFrequency_5">at bedtime</td><td ID="MedicationDuration_5">30</td><td ID="MedicationFormulaStrength_5">300 mg</td><td ID="MedicationDosageForm_5">tablet</td><td ID="MedicationDosageFormCode_5"></td><td ID="MedicationDosageDescription_5"></td><td ID="MedicationMedicationId_5">[id number]</td><td ID="MedicationAccount_5">[id number]</td><td ID="MedicationNpid_5">[id number]</td><td ID="MedicationAuthorFirstName_5">Dane</td><td ID="MedicationAuthorLastName_5">Loida</td><td ID="MedicationTaxonomyCode_5">[id number]</td><td ID="MedicationTaxonomyDesc_5">Psychiatric/Mental Health</td><td ID="MedicationPhoneNumber_5">[phone]</td> [facility] ([facility]) Aristada Aristada 12/20/2019 12:00:00 AM EST mg/3.9 completed <td ID="MedicationRxNorm_3">[id number]</td><td ID="MedicationMedication_3">Aristada</td><td ID="MedicationRoute_3">intramuscularly</td><td ID="MedicationRouteConcept_3"></td><td ID="MedicationStartDate_3">12/20/2019</td><td ID="MedicationStopDate_3">09/12/2020</td><td ID="MedicationDosageFrequency_3"></td><td ID="MedicationDuration_3"></td><td ID="MedicationFormulaStrength_3">1,064 mg/3.9 mL</td><td ID="MedicationDosageForm_3">suspension,extended rel syring</td><td ID="MedicationDosageFormCode_3"></td><td ID="MedicationDosageDescription_3">as directed</td><td ID="MedicationMedicationId_3">[id number]</td><td ID="MedicationAccount_3">[id number]</td><td ID="MedicationNpid_3">[id number]</td><td ID="MedicationAuthorFirstName_3">Dane</td><td ID="MedicationAuthorLastName_3">Loida</td><td ID="MedicationTaxonomyCode_3">[id number]</td><td ID="MedicationTaxonomyDesc_3"> Psychiatric/Mental Health</td><td ID="MedicationPhoneNumber_3">[phone]</td> [facility] ([facility]) Trazodone Hydrochloride 50 MG Oral Tablet trazodone 2018 12:00:00 AM EDT 50 mg by mouth completed <td ID="Medic ationRxNorm_2">869973</td><td ID="MedicationMedication_2">trazodone</td><td ID="MedicationRoute_2">by mouth</td><td ID="MedicationRouteConcept_2">H14067</td><td ID="MedicationStartDate_2">06/10/2019</td><td ID="MedicationStopDate_2">09/12/2020</td><td ID="MedicationDosageFrequency_2">at bedtime</td><td ID="MedicationDuration_2"></td><td ID="MedicationFormulaStrength_2">50 mg</td><td ID="MedicationDosageForm_2">tablet</td><td ID="MedicationDosageFormCode_2"></td><td ID="MedicationDosageDescription_2"></td><td ID="MedicationMedicationId_2">99454</td><td ID="MedicationAccount_2">[id number]</td><td ID="MedicationNpid_2">[id number]</td><td ID="MedicationAuthorFirstName_2">Dane</td><td ID="MedicationAuthorLastName_2">Nicollet</td><td ID="MedicationTaxonomyCode_2">[id number]</td><td ID="MedicationTaxonomyDesc_2">Psychiatric/Mental Health</td><td ID="MedicationPhoneNumber_2">[phone]</td> [facility] ([facility]) Amantadine Hydrochloride 100 MG Oral Capsule amantadine HCl 07/30/2017 12:00:00 AM EDT 100 mg by mouth completed <td ID="MedicationRxNorm_1">263499</td><td ID="MedicationMedication_1">amantadine HCl</td><td ID="MedicationRoute_1">by mouth</td><td ID="MedicationRouteConcept_1">I96358</td><td ID="MedicationStartDate_1">07/30/2017</td><td ID="MedicationStopDate_1">09/12/2020</td><td ID="MedicationDosageFrequency_1">every morning</td><td ID="MedicationDuration_1"></td><td ID="MedicationFormulaStrength_1">100 mg</td><td ID="MedicationDosageForm_1">capsule</td><td ID="MedicationDosageFormCode_1"></td><td ID="MedicationDosageDescription_1"></td><td ID="MedicationMedicationId_1">04976</td><td ID="MedicationAccount_1">[id number]</td><td ID="MedicationNpid_1">[id number]</td><td ID="MedicationAuthorFirstName_1">Dane</td><td ID="MedicationAuthorLastName_1">Loida</td><td ID="MedicationTaxonomyCode_1">[id number]</td><td ID="MedicationTaxonomyDesc_1">Psychiatric/Mental Health</td><td ID="MedicationPhoneNumber_1">[phone]</td> [facility] ([facility]) Insurance Providers Payer name Policy type / Coverage type Policy ID Covered alliance party ID Covered alliance party's relationship to shafer Policy Shafer Plan Information Medicaid S [id number] S [id number] Managed Care - Community Plan [facility] P [id number] S [id number] Medicaid S [id number] S [id number] UH I [id number] Self [id number] UHC I [id number] Self [id number] UH I [id number] Self [id number] Managed Care - UHC Community Plan P [id number] S [id number] Medicaid S [id number] S [id number] Managed Care - UHC Community Plan P [id number] S [id number] UNHC COMMUNITY PLAN [facility] [id number] SP [id number] [facility] MAN CRE [id number] SP [id number] [facility] [id number] SP [id number] SELF PAY [facility] OFFICE OF MENTAL HEALTH UNAVAILABLE S UNAVAILABLE MEDICAID [id number] S [id number] [facility] OFFICE OF MENTAL HEALTH [id number] S [id number] UNHC COMMUNITY PLAN MCDHMO [id number] SP [id number] [facility] OFFICE OF MENTAL HEALTH [id number] [facility] [id number] SP [id number] SELF PAY ONLY [id number] SP [id number] [facility] [id number] SP [id number] SELF PAY SP [facility] O [id number] S [id number] [facility] [id number] SP [id number] Self Pay P UNAVAILABLE S [facility]) O [id number] S [id number] 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, uncomplicated F16.10 - Hallucinogen abuse, uncomplicated Diagnosis 02/27/2021 08:12:00 PM EDT [facility] F25.9 Schizoaffective disorder, unspecified F2 5.9 - Schizoaffective disorder, unspecified Diagnosis 02/27/2021 08:12:00 PM EDT [facility] Z13.9 Encounter for screening, unspecified Z13 .9 - Encounter for screening, unspecified Diagnosis 02/27/2021 08:12:00 PM EDT [facility] schizophrenia, hallucinations, substance abuse schizophrenia, hallucinations, substance abuse Diagnosis 09/22/2020 02:27:00 PM [facility] F15.20 Other stimulant dependence, uncomplicate d Stimulant Use Disorder, Moderate: Amphetamine-type substance Condition 09/02/2021 12:00:00 AM EDT [facility] ([facility]) F10.20 Alcohol dependence, uncomplicated Alcohol Use Disorder , Severe Condition 09/02/2021 12:00:00 AM EDT [facility] ([facility]) F17.200 Nicotine dependence, unspecified, uncomp licated Tobacco Use Disorder, Moderate Condition 09/02/2021 12:00:00 AM EDT [facility] ([facility]) F12.20 Cannabis dependence, uncomplicated Cannabis Use Disorder, Moderate Condition 09/02/2021 12:00:00 AM EDT [facility] ([facility]) F20.9 Schizophrenia, unspecified Schizophrenia Condition 09/02/2021 12:00:00 AM EDT [facility] ([facility]) Surgeries/Procedures Procedure Description Date Indications Data Source(s) THERAPEUTIC PROPHYLACTIC/DX INJECTION SUBQ/IM 09/02/2021 12:00:00 AM EDT - 09/02/2021 12:00:00 AM EDT [facility] ([facility]) THERAPEUTIC PROPHYLACTIC/DX INJECTION SUBQ/IM 09/02/20 12:00:00 AM EDT [facility] ([facility]) Comprehensive medication services, per 15 minutes 07/29/2021 12:00:00 AM EDT - 07/29/2021 12:00:00 AM EDT [facility] ([facility]) Comprehensive medication services, per 15 minutes 07/29/2021 12:00:00 AM EDT [facility] ([facility]) Comprehensive medication services, per 15 minutes 06/24/2021 12:00:00 AM EDT - 06/24/2021 12:00:00 AM EDT [facility] ([facility]) Comprehensive medication services, per 15 minutes 06/24/2021 12:00:00 AM EDT [facility] ([facility]) THERAPEUTIC PROPHYLACTIC/DX INJECTION SUBQ/IM 05/27/2021 12:00:00 AM EDT - 05/27/2021 12:00:00 AM EDT [facility] ([facility]) THERAPEUTIC PROPHYLACTIC/DX INJECTION SUBQ/IM 05/27/20 12:00:00 AM EDT [facility] ([facility]) Brief Individual Psychotherapy - 30 min 05/13/2021 12:00:00 AM EDT - 05/13/2021 12:00:00 AM EDT [facility] ([facility]) Brief Individual Psychotherapy - 30 min 05/13/2021 12: 00:00 AM EDT [facility] ([facility]) Comprehensive medication services, per 15 minutes 04/04/2021 12:00:00 AM EDT - 04/04/2021 12:00:00 AM EDT [facility] ([facility]) Comprehensive medication services, per 15 minutes 04/03/2021 12:00:00 AM EDT [facility] ([facility]) OFFICE OUTPATIENT VISIT 15 MINUTES 04/03 12:00:00 AM EDT - 04/03/2021 12:00:00 AM EDT [facility] ([facility]) Psychotherapy ADD ON - 30 Minutes 04/03/2021 12:00:00 AM EDT [facility] ([facility]) OFFICE OUTPATIENT VISIT 15 MINUTES 04/03/2021 12:00:00 AM EDT [facility] ([facility]) OFFICE OUTPATIENT VISIT 15 MINUTES 03/27 12:00:00 AM EDT - 03/27/2021 12:00:00 AM EDT [facility] ([facility]) OFFICE OUTPATIENT VISIT 15 MINUTES 03/27/2021 12:00:00 AM EDT [facility] ([facility]) OFFICE OUTPATIENT VISIT 15 MINUTES 03/19 12:00:00 AM EDT - 03/19/2021 12:00:00 AM EDT [facility] ([facility]) OFFICE OUTPATIENT VISIT 15 MINUTES 03/19/2021 12:00:00 AM EDT [facility] ([facility]) OFFICE OUTPATIENT VISIT 15 MINUTES 02/12 12:00:00 AM EDT - 02/12/2021 12:00:00 AM EDT [facility] ([facility]) OFFICE OUTPATIENT VISIT 15 MINUTES 02/12/2021 12:00:00 AM EDT [facility] ([facility]) OFFICE OUTPATIENT VISIT 15 MINUTES 02/07 12:00:00 AM EDT - 02/07/2021 12:00:00 AM EDT [facility] ([facility]) OFFICE OUTPATIENT VISIT 15 MINUTES 02/07/2021 12:00:00 AM EDT [facility] ([facility]) Brief Individual Psychotherapy - 30 min 02/01/2021 12:00:00 AM EDT - 02/01/2021 12:00:00 AM EDT [facility] ([facility]) Brief Individual Psychotherapy - 30 min 02/01/2021 12: 00:00 AM EDT [facility] ([facility]) OFFICE OUTPATIENT VISIT 15 MINUTES 01/23 12:00:00 AM EDT - 01/23/2021 12:00:00 AM EDT [facility] ([facility]) OFFICE OUTPATIENT VISIT 15 MINUTES 01/23/2021 12:00:00 AM EDT [facility] ([facility]) THERAPEUTIC PROPHYLACTIC/DX INJECTION SUBQ/IM 01/23/2021 12:00:00 AM EDT - 01/23/2021 12:00:00 AM EDT [facility] ([facility]) THERAPEUTIC PROPHYLACTIC/DX INJECTION SUBQ/IM 01/24/20 12:00:00 AM EDT [facility] ([facility]) Comprehensive medication services, per 15 minutes 01/18/2021 12:00:00 AM EDT - 01/18/2021 12:00:00 AM EDT [facility] ([facility]) Comprehensive medication services, per 15 minutes 01/18/2021 12:00:00 AM EDT [facility] ([facility]) OFFICE OUTPATIENT VISIT 15 MINUTES 01/17 12:00:00 AM EDT - 01/17/2021 12:00:00 AM EDT [facility] ([facility]) OFFICE OUTPATIENT VISIT 15 MINUTES 01/17/2021 12:00:00 AM EDT [facility] ([facility]) MHC Telemed E/M Lvl 3--Est pt 01/01/2021 12:00:00 AM EST - 01/01/2021 12:00:00 AM EST [facility] ([facility]) MHC Telemed E/M Lvl 3--Est pt 01/01/2021 12:00:[address] [facility] ([facility]) THERAPEUTIC PROPHYLACTIC/DX INJECTION SUBQ/IM 12/28/2020 12:00:00 AM EST - 12/28/2020 12:00:00 AM EST [facility] ([facility]) THERAPEUTIC PROPHYLACTIC/DX INJECTION SUBQ/IM 12/28/19 21 12:00:00 AM EST [facility] ([facility]) MHC Telemed E/M Lvl 3--Est pt 12/20/2020 12:00:00 AM EST - 12/20/2020 12:00:00 AM EST [facility] ([facility]) MHC Telemed E/M Lvl 3--Est pt 12/20/2020 12:00:[address] [facility] ([facility]) MHC Telemed E/M Lvl 3--Est pt 12/06/2020 12:00:00 AM EST - 12/06/2020 12:00:00 AM EST [facility] ([facility]) MHC Telemed E/M Lvl 3--Est pt 12/06/2020 12:00:[address] [facility] ([facility]) Comprehensive medication services, per 15 minutes 11/15/2020 12:00:00 AM EST - 11/15/2020 12:00:00 AM EST [facility] ([facility]) Comprehensive medication services, per 15 minutes 11/15/2020 12:00:00 AM EST [facility] ([facility]) OFFICE OUTPATIENT VISIT 15 MINUTES 11/15 12:00:00 AM EST - 11/15/2020 12:00:00 AM EST [facility] ([facility]) OFFICE OUTPATIENT VISIT 15 MINUTES 11/15/2020 12:00:00 AM EST [facility] ([facility]) THERAPEUTIC PROPHYLACTIC/DX INJECTION SUBQ/IM 10/18/2020 12:00:00 AM EST - 10/18/2020 12:00:00 AM EST [facility] ([facility]) THERAPEUTIC PROPHYLACTIC/DX INJECTION SUBQ/IM 10/18/20 20 12:00:00 AM EST [facility] ([facility]) THERAPEUTIC PROPHYLACTIC/DX INJECTION SUBQ/IM 10/15/2020 12:00:00 AM EST - 10/15/2020 12:00:00 AM EST [facility] ([facility]) THERAPEUTIC PROPHYLACTIC/DX INJECTION SUBQ/IM 10/15/20 20 12:00:00 AM EST [facility] ([facility]) THERAPEUTIC PROPHYLACTIC/DX INJECTION SUBQ/IM 10/04/2020 12:00:00 AM EST - 10/04/2020 12:00:00 AM EST [facility] ([facility]) THERAPEUTIC PROPHYLACTIC/DX INJECTION SUBQ/IM 10/04/20 20 12:00:00 AM EST [facility] ([facility]) OFFICE OUTPATIENT VISIT 15 MINUTES 10/04 12:00:00 AM EST - 10/04/2020 12:00:00 AM EST [facility] ([facility]) OFFICE OUTPATIENT VISIT 15 MINUTES 10/04/2020 12:00:00 AM EST [facility] ([facility]) OFFICE OUTPATIENT VISIT 15 MINUTES 09/12 12:00:00 AM EST - 09/12/2020 12:00:00 AM EST [facility] ([facility]) OFFICE OUTPATIENT VISIT 15 MINUTES 09/12/2020 12:00:00 AM EST [facility] ([facility]) THERAPEUTIC PROPHYLACTIC/DX INJECTION SUBQ/IM 09/12/2020 12:00:00 AM EST - 09/12/2020 12:00:00 AM EST [facility] ([facility]) THERAPEUTIC PROPHYLACTIC/DX INJECTION SUBQ/IM 09/12/20 20 12:00:00 AM EST [facility] ([facility]) OFFICE OUTPATIENT VISIT 15 MINUTES 08/10 12:00:00 AM EDT - 08/10/2020 12:00:00 AM EDT [facility] ([facility]) OFFICE OUTPATIENT VISIT 15 MINUTES 08/10/2020 12:00:00 AM EDT [facility] ([facility]) THERAPEUTIC PROPHYLACTIC/DX INJECTION SUBQ/IM 07/13/2020 12:00:00 AM EDT - 07/13/2020 12:00:00 AM EDT [facility] ([facility]) THERAPEUTIC PROPHYLACTIC/DX INJECTION SUBQ/IM 07/13/20 20 12:00:00 AM EDT [facility] ([facility]) Results ID Date Data Source [id number] 07/19/2021 10:40:00 AM EDT [facility] Name Value Range Interpretation Code Description Data Michelle rce(s) Supporting Document(s) SARS coronavirus 2 RNA [Presence] in Res piratory specimen by [facility]MI with probe detection NEGATIVE [facility] This lab was ordered by [facility] a nd reported by [facility]. ID Date Data Source [id number] 07/19/2021 09:50:00 AM EDT [facility] Name Value Range Interpretation Code Description Data Michelle rce(s) Supporting Document(s) SARS COVID ANTIGEN NEGATIVE [facility] This lab was ordered by [facility] a nd reported by [facility]. ID Date Data Source [id number] 06/04/2021 08:17:00 PM EDT [facility] Name Value Range Interpretation Code Description Data Michelle rce(s) Supporting Document(s) SARS coronavirus 2 RNA [Presence] in Res piratory specimen by OMI with probe detection NEGATIVE [facility] This lab was ordered by [facility] a nd reported by [facility]. ID Date Data Source [id number] 05/01/2021 01:57:00 PM EDT [facility] Name Value Range Interpretation Code Description Data Michelle rce(s) Supporting Document(s) SARS coronavirus 2 RNA [Presence] in Res piratory specimen by OMI with probe detection NEGATIVE [facility] This lab was ordered by [facility] a nd reported by [facility]. ID Date Data Source [id number] 04/19/2021 06:29:00 AM EDT [facility] Name Value Range Interpretation Code Description Data Michelle rce(s) Supporting Document(s) SARS coronavirus 2 RNA [Presence] in Res piratory specimen by OMI with probe detection NEGATIVE [facility] This lab was ordered by [facility] a nd reported by [facility]. ID Date Data Source [id number] 04/17/2021 05:50:00 PM EDT [facility] Name Value Range Interpretation Code Description Data Michelle rce(s) Supporting Document(s) SARS-CoV-2 (COVID-19) RNA [Presence] in Respiratory specimen by OMI with probe detection Not Detected [facility] This lab was ordered by [facility] and reported by [facility]. ID Date Data Source [id number] 02/28/2021 04:53:00 PM EDT [address] [address] HEALTH INFORMATION MANAGEMENT History and Physical Report : [id number] Signed Patient: Gabo Parra Acct:[id number] Unit: Low [id number] : 1980 Loc: [facility] Room/Bed: 820 Age/Sex: 40 / M ADM Date: 02/27/21 [...] charges for this visit?: Yes Inpt Consult [id number] Cons Level 1: Yes Signed By:Rambo Summers <<Signature on File>> Signed Date/Time: 02/28/211657 Co-Signer: Leonel Hubbard MD Co-Signed Date/Time: 02/28/211724 Initializing User: Rambo Summers NP 02/28/211652 52 52 Name Value Range Interpretation Code Description Data Michelle rce(s) Supporting Document(s) ID Date Data Source [id number] 02/28/2021 10:45:00 AM [facility] [address] [place] [address] HEALTH INFORMATION MANAGEMENT [facility] Psychosocial Summary : [id number] Signed Patient: Gabo Parra Acct:[id number] Unit: M [id number] : 1980 Loc: [facility] Room/Bed: 820B Age/Sex: 40 / M ADM Date: 02/27/21 cc: General/History - Presenting Problem Presenting Problem: Social Summary/Discharge plan Presenting Problem Gabo is a40 yo AAM, extensive psych hx, also problems with substance abuse admitted on a transfer from [facility] ER brought in there by his CW as pt was feeling depressed, suicidal, also hallucinating and after abusing drugs History. tates was partially complaint with meds. Not able to name his psychiatrist in [place], not able to name the therapist. Gives h/o 5 to 6 inpt psych txs, last one few months ago, "I can't remember the place, they send me from [facility]. " Also, h'o inpt psych tx at [facility]. H/o self harm time, tried to hand self, slice wrist. May use quan daily both IV and sniff, using for a few years; also using heroine almost daily for couple of months; h/o up to 6 inpt rehab txs, last one couple of years ago, not able to name the place. - Collateral Information Collateral Information: Junior Self. KRUPA Signed. - Directives Does the Patient [...] you part of any alevism/spirtual community?: Yes ([employer] ) - Current Living/Relationship History Current Living Arrangement: House Who Do You Live With?: Mother. OK to Return Home: Yes Weapons in household: No Currently in a Relationship?: No Ever Been ?: No Any Children?: 2 - Family History Where Were You Born/Raised?: [place] Who Was in Home?: Mother, Father [...] Reducing Risk: Complies with Tx/Meds, Future Oriented, Religion Beliefs Mental Status Treatment - Mental Status [...] rce(s) Supporting Document(s) ID Date Data Source [id number] 02/27/2021 04:28:00 PM EDT [facility] Name Value Range Interpretation Code Description Data Michelle rce(s) Supporting Document(s) SARS coronavirus 2 RNA [Presence] in Res piratory specimen by OMI with probe detection NEGATIVE [facility] This lab was ordered by [facility] a nd reported by [facility]. ID Date Data Source [id number] 01/23/2021 01:03:00 AM EDT [facility] Name Value Range Interpretation Code Description Data Michelle rce(s) Supporting Document(s) SARS coronavirus 2 RNA [Presence] in Res piratory specimen by OMI with probe detection NEGATIVE [facility] This lab was ordered by [facility] a nd reported by [facility]. ID Date Data Source [id number] 10/17/2020 12:19:00 AM EST [facility] Name Value Range Interpretation Code Description Data Michelle rce(s) Supporting Document(s) SARS coronavirus 2 RNA [Presence] in Res piratory specimen by [facility]MI with probe detection [facility] This lab was ordered by [facility] a nd reported by [facility]. Procedure Social History Code Duration Value Status Description Data Source(s ) Smoking 09/02/2021 12:00:00 AM EDT Unknown if ever smoked comp leted Unknown if ever smoked [facility] ([facility]) Smoking 07/29/2021 12:00:00 AM EDT Unknown if ever smoked comp leted Unknown if ever smoked [facility] ([facility]) Smoking 06/24/2021 12:00:00 AM EDT Unknown if ever smoked comp leted Unknown if ever smoked [facility] ([facility]) Smoking 05/27/2021 12:00:00 AM EDT Unknown if ever smoked comp leted Unknown if ever smoked [facility] ([facility]) Smoking 05/13/2021 12:00:00 AM EDT Unknown if ever smoked comp leted Unknown if ever smoked [facility] ([facility]) Smoking 04/04/2021 12:00:00 AM EDT Unknown if ever smoked comp leted Unknown if ever smoked [facility] ([facility]) Smoking 04/03/2021 12:00:00 AM EDT Unknown if ever smoked comp leted Unknown if ever smoked [facility] ([facility]) Smoking 03/27/2021 12:00:00 AM EDT Unknown if ever smoked comp leted Unknown if ever smoked [facility] ([facility]) Smoking 03/19/2021 12:00:00 AM EDT Unknown if ever smoked comp leted Unknown if ever smoked [facility] ([facility]) Smoking 02/12/2021 12:00:00 AM EDT Unknown if ever smoked comp leted Unknown if ever smoked [facility] ([facility]) Smoking 02/07/2021 12:00:00 AM EDT Unknown if ever smoked comp leted Unknown if ever smoked [facility] ([facility]) Smoking 02/01/2021 12:00:00 AM EDT Unknown if ever smoked comp leted Unknown if ever smoked [facility] ([facility]) Smoking 01/23/2021 12:00:00 AM EDT Unknown [...] to non-numeric resu lts) 0.00 in [facility] ([facility]) Body weight Measured 0.00 lbs Normal (applies to n on-numeric results) 0.00 lbs [facility] Body mass index (BMI) [Ratio] 0.00 kg/m2 No rmal (applies to non-numeric results) 0.00 kg/m2 [facility] ([facility]) Systolic blood pressure 0 mm[Hg] Normal (applies t o non-numeric results) 0 mm[Hg] [facility] ([facility]) Diastolic blood pressure 0 mm[Hg] Normal (applies to non-numeric results) 0 mm[Hg] [facility] ([facility]) Body height 0.00 in Normal (applies to non-numeric resu lts) 0.00 in [facility] ([facility]) Body weight Measured 0.00 lbs Normal (applies to n on-numeric results) 0.00 lbs [facility]) Body mass index (BMI) [Ratio] 0.00 kg/m2 No rmal (applies to non-numeric results) 0.00 kg/m2 [facility] ([facility]) Systolic blood pressure 0 mm[Hg] Normal (applies t o non-numeric results) 0 mm[Hg] [facility] ([facility]) Diastolic blood pressure 0 mm[Hg] Normal (applies to non-numeric results) 0 mm[Hg] [facility] ([facility]) Body height 0.00 in Normal (applies to non-numeric resu lts) 0.00 in [facility] ([facility]) Body weight Measured 0.00 lbs Normal (applies to n on-numeric results) 0.00 lbs [facility] ([facility]) Body mass index (BMI) [Ratio] 0.00 kg/m2 No rmal (applies to non-numeric results) 0.00 kg/m2 [facility] ([facility]) Systolic blood pressure 0 mm[Hg] Normal (applies t o non-numeric results) 0 mm[Hg] [facility] ([facility]) Diastolic blood pressure 0 mm[Hg] Normal (applies to non-numeric results) 0 mm[Hg] [facility] ([facility]) Body height 0.00 in Normal (applies to non-numeric resu lts) 0.00 in [facility] ([facility]) Body weight Measured 0.00 lbs Normal (applies to n on-numeric results) 0.00 lbs [facility] ([facility]) Body mass index (BMI) [Ratio] 0.00 kg/m2 No rmal (applies to non-numeric results) 0.00 kg/m2 [facility] ([facility]) Systolic blood pressure 0 mm[Hg] Normal (applies t o non-numeric results) 0 mm[Hg] [facility] ([facility]) Diastolic blood pressure 0 mm[Hg] Normal (applies to non-numeric results) 0 mm[Hg] [facility] ([facility]) ID Date Data Source [id number] 09/22/2020 02:27:59 PM [facility] Name Value Range Interpretation Code Description Data Source(s) TRANSFER FROM [facility]
[2021-09-03 04:14] LABS: HEMATOCRIT 42.4 % (42.0-52.0); HEMOGLOBIN 14.1 g/dl (13.5-17.5); MEAN CORPUSCULAR HEMOGLOBIN 29.9 pg (27.0-33.0); MEAN CORPUSCULAR HGB CONC 33.3 g/dl (32.0-36.5); MEAN CORPUSCULAR VOLUME 89.8 fl (80.0-96.0); PLATELET COUNT, AUTOMATED 272 10^3/uL (150-450); RED BLOOD COUNT 4.72 10^6/uL (4.30-6.10); WHITE BLOOD COUNT 10.8 10^3/uL (4.0-10.0)
[2021-09-03 04:45] LABS: ACETAMINOPHEN LEVEL < 2.0 UG/ML (10.0-30.0); ALBUMIN 3.6 GM/DL (3.2-5.2); ALT/SGPT 48 U/L (12-78); BILIRUBIN,DIRECT 0.2 MG/DL (0.0-0.2); BILIRUBIN,TOTAL 0.5 MG/DL (0.2-1.0); BLOOD UREA NITROGEN 17 MG/DL (7-18); CALCIUM LEVEL 9.3 MG/DL (8.5-10.1); CARBON DIOXIDE LEVEL 29 MEQ/L (21-32); CHLORIDE LEVEL 106 MEQ/L (98-107); CREATININE FOR GFR 0.93 MG/DL (0.70-1.30); ETHYL ALCOHOL (ETHANOL) < 0.003 % (0.000-0.010); GLOMERULAR FILTRATION RATE > 60.0 (>60); GLUCOSE, FASTING 82 MG/DL (70-100); POTASSIUM SERUM 3.8 MEQ/L (3.5-5.1); SALICYLATE LEVEL 2.2 MG/DL (5.0-30.0); SODIUM LEVEL 138 MEQ/L (136-145); TOTAL PROTEIN 7.4 GM/DL (6.4-8.2)
[2021-09-03 06:30] LABS: AMPHETAMINES LEVEL URINE POSITIVE (NEGATIVE); BARBITURATES URINE NEGATIVE (NEGATIVE); BENZODIAZEPINES URINE NEGATIVE (NEGATIVE); CANNABINOIDS URINE POSITIVE (NEGATIVE); COCAINE METABOLITE URINE NEGATIVE (NEGATIVE); METHADONE URINE NEGATIVE (NEGATIVE); OPIATES URINE NEGATIVE (NEGATIVE); PHENCYCLIDINE URINE NEGATIVE (NEGATIVE)
--- OUTSIDE RECORDS SUMMARY | 2021-09-03 06:43 | CCD ---
Author Author [facility] Organization [facility] Address Unknown Phone Unavailable Support Name Relationship Address Phone Hudson GUTIERREZ, Pasha Next Of Kin [address] [place] [address] Diamante Costa Next Of Kin [address] [place] [address] Dwain Joseph DO Next Of Kin [address] [place] [address] Cameron Bingham MD Next Of Kin [address] [place] [address] SELFGARY Next Of Kin [address] [place] [address] YONI JACK Next Of Kin [address] [place] [address] CORRECTIONAL, GAKONA Next Of Kin [address] [place] [address] Monique Conklin MD Next Of Kin [address] [place] [phone] YONI CALHOUN Next Of Kin [address] [place] [address] Isabelle Manning Next Of Kin [address] [place] [address] Pat Gallo DO Next Of Kin [address] [place] [address] DISABLED Next Of Kin Unknown Unavailable [place] Self Next Of Kin [address] [place] [phone] SELF, JUNIOR Next Of Kin [address] [place] [address] UE Next Of Kin Unknown Unavailable SIMON WALL Next Of Kin [address] [place] [address] SELF, JUNIOR [address] [place] [address] Unavailable Care Team Providers Care Market Garden Worker Name Role Phone Farden, M Rambo Unavailable [...] Unavailable Gina Nash Unavailable AMILCAR, H ANSELMO OYSTER WASHER Unavailable Unavailable AMILCAR, H ANSELMO OYSTER WASHER Unavailable Unavailable AMILCAR, H ANSELMO OYSTER WASHER Unavailable Unavailable AMILCAR, H ANSELMO OYSTER WASHER Unavailable Unavailable AMILCAR, H ANSELMO OYSTER WASHER Unavailable Unavailable AMILCAR, H ANSELMO OYSTER WASHER Unavailable Unavailable AMILCAR, H ANSELMO OYSTER WASHER Unavailable Unavailable AMILCAR, H ANSELMO OYSTER WASHER Unavailable Unavailable AMILCAR, H ANSELMO OYSTER WASHER Unavailable Unavailable Jossie Marcelino Unavailable Rotella, Jossy [...] is protected by Article 27-F of the [facility] Public Health law. If you continue you may have access to information: Regarding HIV / AIDS; Provided by facilities licensed or operated by the [facility] Office of Mental Health; or Provided by the [facility] Office for People With Developmental Disabilities. If such information is present, then the following [facility] mandated warning applies: This information has [...] law may result in a fine or fdc sentence or both. A general authorization for the release of medical or other information is NOT sufficient authorization for further disc losure. Allergies and Adverse Reactions Type Description Substance Reaction Status Data Source(s ) Drug allergy No Known Allergies No Known Allergies [facility] Propensity to adverse reactions NO KNOWN ALLERGIES NO KNOWN ALLERGIES [facility] Encounters Encounter Providers Location Date Indications Data Source(s ) Injectable Psychotropic Medication Administration (Inj ection Only) Attender: Thalia Carreno [facility] 09/02/2021 10:30:00 AM EDT - 09/02/2021 10:30:00 AM EDT [facility] ([facility]) Attender: Thalia Carreno 09/02/2021 12:00:00 AM EDT [facility] ([facility]) Injectable Medication Administration w/ Monitoring & E ducation Attender: [facility] 07/29/2021 02:30:00 AM EDT - 07/29/2021 02:30:00 AM EDT [facility] ([facility]) Attender: Pam Isbellpo 07/29/2021 12:00:00 AM EDT [facility] ([facility]) Injectable Medication Administration w/ Monitoring & E ducation Attender: Thalia Carreno [facility] 06/24/2021 10:45:00 AM EDT - 06/24/2021 10:45:00 AM EDT [facility] ([facility]) Attender: Thalia Carreno 06/24/2021 12:00:00 AM EDT [facility] ([facility]) Injectable Psychotropic Medication Administration (Inj ection Only) Attender: Thalia [facility] 05/27/2021 08:15:00 AM EDT - 05/27/2021 08:15:00 AM EDT [facility] ([facility]) Attender: Thalia Carreno 05/27/2021 12:00:00 AM EDT [facility] ([facility]) Brief Individual Psychotherapy - 30 min Attender: Gina yun [facility] 05/13/2021 08:30:00 AM EDT - 05/13/2021 08:30:00 AM EDT [facility] ([facility]) Attender: Gina Nash 05/13/2021 12:00:00 AM EDT [facility] ([facility]) Attender: Pam Juarez 04/04/2021 12:00:00 AM EDT [facility] ([facility]) Injectable Medication Administration w/ Monitoring & E ducation Attender: Pam Juarez [facility] 04/03/2021 09:00:00 AM EDT - 04/03/2021 09:00:00 AM EDT [facility] ([facility]) Outpatient Attender: ANSELMO APONTE NP [facility] Mike garcía 04/03/2021 08:30:00 AM EDT - 04/03/2021 08:30:00 AM EDT [facility] ([facility]) Attender: ANSELMO APONTE NP 04/03/2021 12:00:00 AM EDT [facility] ([facility]) Outpatient Attender: ANSELMO APONTE NP [facility] Mike garcía 03/27/2021 11:00:00 AM EDT - 03/27/2021 11:00:00 AM EDT [facility] ([facility]) Attender: ANSELMO APONTE NP 03/27/2021 12:00:00 AM EDT [facility] ([facility]) Outpatient Attender: ANSELMO APONTE NP [facility] Mike garcía 03/19/2021 03:00:00 AM EDT - 03/19/2021 03:00:00 AM EDT [facility] ([facility]) Attender: ANSELMO APONTE NP 03/19/2021 12:00:00 AM EDT [facility] ([facility]) Inpatient Attender: JONNATHAN TRACY MDAdmitter: JONNATHAN TRACY MD 02/27/2021 08:12:00 PM EDT - 03/08/2021 03:27:00 PM EDT Suicidal Ideation / Homicidal Ideation [facility] Suicidal Ideation / Homicidal Ideation Patient discharged. Outpatient Attender: JONNATHAN TRACY MDAdmi tter: JONNATHAN TRACY MDConsultant: JONNATHAN TRACY MD 02/27/2021 08:12:00 PM EDT Suicidal Ideation / H omicidal Ideation [facility] Suicidal Ideation / Homicidal Ideation Outpatient Attender: JONNATHAN TRACY MDAdmi tter: JONNATHAN TRACY MDConsultant: JONNATHAN TRACY MD 02/27/2021 08:12:00 PM EDT Suicidal Ideation / H omicidal Ideation [facility] Suicidal Ideation / Homicidal Ideation Outpatient Attender: Castro ColonAdmitter : JONNATHAN TRACY MDConsultant: JONNATHAN TRACY MD 02/27/2021 08:12:00 PM EDT Suicidal Ideation / H omicidal Ideation [facility] Suicidal Ideation / Homicidal Ideation Outpatient Attender: JONNATHAN TRACY MDAdmi tter: JONNATHAN TRACY MDConsultant: JONNATHAN TRACY MD 02/27/2021 08:12:00 PM EDT Suicidal Ideation / H omicidal Ideation [facility] Suicidal Ideation / Homicidal Ideation Outpatient Attender: JONNATHAN TRACY MDAdmi tter: JONNATHAN TRACY MDConsultant: JONNATHAN TRACY MD 02/27/2021 08:12:00 PM EDT Suicidal Ideation / H omicidal Ideation [facility] Suicidal Ideation / Homicidal Ideation Outpatient Attender: JONNATHAN TRACY MDAdmi tter: JONNATHAN TRACY MDConsultant: JONNATHAN TRACY MD 02/27/2021 08:12:00 PM EDT Suicidal Ideation / H omicidal Ideation [facility] Suicidal Ideation / Homicidal Ideation Outpatient Attender: Castro ColonAdmitter : JONNATHAN TRACY MDConsultant: JONNATHAN TRACY MD 02/27/2021 08:12:00 PM EDT Suicidal Ideation / H omicidal Ideation [facility] Suicidal Ideation / Homicidal Ideation Outpatient Attender: Castro ZayasAdmitter : JONNATHAN TRACY MDConsultant: JONNATHAN TRACY MD 02/27/2021 08:12:00 PM EDT Suicidal Ideation / H omicidal Ideation [facility] Suicidal Ideation / Homicidal Ideation Outpatient Attender: JONNATHAN TRACY MDAdmi tter: JONNATHAN TRACY MDConsultant: JONNATHAN TRACY MD 02/27/2021 08:12:00 PM EDT Suicidal Ideation / H omicidal Ideation [facility] Suicidal Ideation / Homicidal Ideation Outpatient Attender: Rambo Pedroza mitter: JONNATHAN TRACY MDConsultant: JONNATHAN TRACY MD 02/27/2021 08:12:00 PM EDT Suicidal Ideation / H omicidal Ideation [facility] Suicidal Ideation / Homicidal Ideation Outpatient Attender: ANSELMO APONTE NP [facility] Mike garcía 02/12/2021 10:30:00 AM EDT - 02/12/2021 10:30:00 AM EDT [facility] ([facility]) Attender: ANSELMO APONTE NP 02/12/2021 12:00:00 AM EDT [facility] ([facility]) Outpatient Attender: ANSELMO APONTE NP [facility] Mike raquel 02/07/2021 11:30:00 AM EDT - 02/07/2021 11:30:00 AM EDT [facility] ([facility]) Attender: ANSELMO APONTE NP 02/07/2021 12:00:00 AM EDT [facility] ([facility]) Brief Individual Psychotherapy - 30 min Attender: Gina yun [facility] Maria Alejandra 02/01/2021 02:00:00 AM EDT - 02/01/2021 02:00:00 AM EDT [facility] ([facility]) Attender: Gina Nash 02/01/2021 12:00:00 AM EDT [facility] ([facility]) Injectable Psychotropic Medication Administration (Inj ection Only) [facility] 10:00:00 AM EDT - 01/23/2021 10:00:00 AM EDT [facility] ([facility]) Outpatient Attender: ANSELMO APONTE NP [facility] Mike garcía 01/23/2021 09:15:00 AM EDT - 01/23/2021 09:15:00 AM EDT [facility] ([facility]) Attender: ANSELMO APONTE NP 01/23/2021 12:00:00 AM EDT [facility] ([facility]) Attender: Thalia Carreno 01/23/2021 12:00:00 AM EDT [facility] ([facility]) Injectable Medication Administration w/ Monitoring & E ducation Attender: Pam Juarez [facility] 01/18/2021 11:00:00 AM EDT - 01/18/2021 11:00:00 AM EDT [facility] ([facility]) Attender: Pam Juarez 01/18/2021 12:00:00 AM EDT [facility] ([facility]) Outpatient Attender: ANSELMO APONTE NP [facility] Mike garcía 01/17/2021 09:00:00 AM EDT - 01/17/2021 09:00:00 AM EDT [facility] ([facility]) Attender: ANSELMO APONTE NP 01/17/2021 12:00:00 AM EDT [facility] ([facility]) Outpatient Attender: ANSELMO APONTE NP [facility] Mike garcía 01/01/2021 02:30:00 AM EST - 01/01/2021 02:30:00 AM EST [facility] ([facility]) Attender: ANSELMO APONTE NP 01/01/2021 12:00:00 AM EST [facility] ([facility]) Injectable Psychotropic Medication Administration (Inj ection Only) Attender: Jossie Marcelino [facility] 12/28/2020 10:30:00 AM EST - 12/28/2020 10:30:00 AM EST [facility] ([facility]) Attender: Jossie Ryland 12/28/2020 12:00:00 AM EST [facility] ([facility]) Outpatient Attender: Victorino Escobar MD [facility] Mike garcía 12/20/2020 09:30:00 AM EST - 12/20/2020 09:30:00 AM EST [facility] ([facility]) Attender: Victoirno Escobar MD 12/20/2020 12:00:00 AM EST [facility] ([facility]) Outpatient Attender: Victorino Escobar MD [facility] 12/06/2020 12:30:00 PM EST - 12/06/2020 12:30:00 PM EST [facility] ([facility]) Attender: Victorino Escobar MD 12/06/2020 12:00:00 AM EST [facility] ([facility]) Injectable Medication Administration w/ Monitoring & E ducation Attender: ORGANIZATION NPI ALIASES [facility] 11/15/2020 11:15: 00 AM EST - 11/15/2020 11:15:00 AM EST [facility] ([facility]) Outpatient Attender: Victorino Escobar MD [facility] 11/15/2020 11:00:00 AM EST - 11/15/2020 11:00:00 AM EST [facility] ([facility]) Attender: ORGANIZATION NPI ALIASES * 11/15/2020 12:00:00 AM EST [facility] ([facility]) Attender: Victorino Escobar MD 11/15/2020 12:00:00 AM EST [facility] ([facility]) Injectable Psychotropic Medication Administration (Inj ection Only) Attender: Jossy Mejia [facility] 10/18/2020 10:30:00 AM EST - 10/18/2020 10:30:00 AM EST [facility] ([facility]) Attender: Jossy Mejia 10/18/2020 12:00:00 AM EST [facility] ([facility]) Injectable Psychotropic Medication Administration (Inj ection Only) Attender: Jossy Mejia [facility] 10/15/2020 11:00:00 AM EST - 10/15/2020 11:00:00 AM EST [facility] ([facility]) Attender: Jossy Mejia 10/15/2020 12:00:00 AM EST [facility] ([facility]) Injectable Psychotropic Medication Administration (Inj ection Only) Attender: Jossy Mejia [facility] 10/04/2020 10:30:00 AM EST - 10/04/2020 10:30:00 AM EST [facility] ([facility]) Outpatient Attender: KALLI MOLINAURSZULA [facility] 10/04/2020 10:00:00 AM EST - 10/04/2020 10:00:00 AM EST [facility] ([facility]) Attender: Jossy Mejia 10/04/2020 12:00:00 AM EST [facility] ([facility]) Attender: KALLI MOLINAURSZULA 10/04/2020 12:00: 00 AM EST [facility] ([facility]) Outpatient Referrer: [facility] 09/22/2020 0 2:27:00 PM EST schizophrenia, hallucinations, substance abuse [facility] schizophrenia, hallucinations, substance abuse Injectable Psychotropic Medication Administration (Inj ection Only) Attender: Jossy Mejia [facility] 09/12/2020 09:30:00 AM EST - 09/12/2020 09:30:00 AM EST [facility] ([facility]) Outpatient Attender: KALLI MOLINAURSZULA [facility] 09/12/2020 09:00:00 AM EST - 09/12/2020 09:00:00 AM EST [facility] ([facility]) Attender: KALLI MOLINAURSZULA 09/12/2020 12:00: 00 AM EST [facility] ([facility]) Attender: Jossy Mejia 09/12/2020 12:00:00 AM EST [facility] ([facility]) Outpatient Attender: KALLI IGLESIAS [facility] 08/10/2020 02:00:00 AM EDT - 08/10/2020 02:00:00 AM EDT [facility] ([facility] 12:00: 00 AM EDT [facility] ([facility]) Injectable Psychotropic Medication Administration (Inj ection Only) Attender: Jossy Mejia [facility] 07/13/2020 02:00:00 AM EDT - 07/13/2020 02:00:00 AM EDT [facility] ([facility]) Attender: Jossy Mejia 07/13/2020 12:00:00 AM EDT [facility] ([facility]) Outpatient Attender: Pasha Treviño MD 07/12/2020 02:46:50 PM EDT [facility] Functional Status Medications Medication Brand Name Start Date Product Form Dose Route Admi nistrative Instructions Pharmacy Instructions Status Indications Reaction Description Data Source(s) Prazosin 1 MG Oral Capsule prazosin 07/10/2021 12:00:00 AM EDT 1 mg by mouth completed <td ID="Medicat ionRxNorm_4">948498</td><td ID="MedicationMedication_4">prazosin</td><td ID="MedicationRoute_4">by mouth</td><td ID="MedicationRouteConcept_4">H51678</td><td ID="MedicationStartDate_4">07/10/2021</td><td ID="MedicationStopDate_4">09/30/2021</td><td ID="MedicationDosageFrequency_4">at bedtime</td><td ID="MedicationDuration_4">30</td><td ID="MedicationFormulaStrength_4">1 mg</td><td ID="MedicationDosageForm_4">capsule</td><td ID="MedicationDosageFormCode_4"></td><td ID="MedicationDosageDescription_4"></td><td ID="MedicationMedicationId_4">[id number]</td><td ID="MedicationAccount_4">[id number]</td><td ID="MedicationNpid_4">[id number]</td><td ID="MedicationAuthorFirstName_4">Anselmo</td><td ID="MedicationAuthorLastName_4">Amilcar</td><td ID="MedicationTaxonomyCode_4">[id number]</td><td ID="MedicationTaxonomyDesc_4">Nurse Practitioner</td><td ID="MedicationPhoneNumber_4">[phone]</td> [facility] ([facility]) olanzapine 5 MG Oral Tablet [Zyprexa] Zyprexa 05/23/2021 12:00:00 AM EDT 5 mg by mouth completed <td ID="Medica tionRxNorm_2">345995</td><td ID="MedicationMedication_2">Zyprexa</td><td ID="MedicationRoute_2">by mouth</td><td ID="MedicationRouteConcept_2">E59187</td><td ID="MedicationStartDate_2">05/23/2021</td><td ID="MedicationStopDate_2">09/30/2021</td><td ID="MedicationDosageFrequency_2">at bedtime</td><td ID="MedicationDuration_2">30</td><td ID="MedicationFormulaStrength_2">5 mg</td><td ID="MedicationDosageForm_2">tablet</td><td ID="MedicationDosageFormCode_2"></td><td ID="MedicationDosageDescription_2"></td><td ID="MedicationMedicationId_2">[id number]</td><td ID="MedicationAccount_2">[id number]</td><td ID="MedicationNpid_2">[id number]</td><td ID="MedicationAuthorFirstName_2">Anselmo</td><td ID="MedicationAuthorLastName_2">Amilcar</td><td ID="MedicationTaxonomyCode_2">[id number]</td><td ID="MedicationTaxonomyDesc_2">Nurse Practitioner</td><td ID="MedicationPhoneNumber_2">[phone]</td> [facility] ([facility]) benztropine mesylate 1 MG Oral Tablet benztropine 05/23/2021 12:00 :00 AM EDT 1 mg by mouth completed <td ID="Me dicationRxNorm_3">841589</td><td ID="MedicationMedication_3">benztropine</td><td ID="MedicationRoute_3">by mouth</td><td ID="MedicationRouteConcept_3">P48349</td><td ID="MedicationStartDate_3">05/23/2021</td><td ID="MedicationStopDate_3">09/30/2021</td><td ID="MedicationDosageFrequency_3">at bedtime</td><td ID="MedicationDuration_3">30</td><td ID="MedicationFormulaStrength_3">1 mg</td><td ID="MedicationDosageForm_3">tablet</td><td ID="MedicationDosageFormCode_3"></td><td ID="MedicationDosageDescription_3"></td><td ID="MedicationMedicationId_3">[id number]</td><td ID="MedicationAccount_3">[id number]</td><td ID="MedicationNpid_3">[id number]</td><td ID="MedicationAuthorFirstName_3">Anselmo</td><td ID="MedicationAuthorLastName_3">Amilcar</td><td ID="MedicationTaxonomyCode_3">[id number]</td><td ID="MedicationTaxonomyDesc_3">Nurse Practitioner</td><td ID="MedicationPhoneNumber_3">[phone]</td> [facility]) 1.5 ML paliperidone palmitate 156 MG/ML Prefilled Syri nge [Invega] Invega Sustenna 04/16/2021 12:00:00 AM EDT 234 mg/1.5 compl eted <td ID="MedicationRxNorm_1">368014</td><td ID="MedicationMedication_1">Invega Sustenna</td><td ID="MedicationRoute_1"></td><td ID="MedicationRouteConcept_1"></td><td ID="MedicationStartDate_1">04/16/2021</td><td ID="MedicationStopDate_1"></td><td ID="MedicationDosageFrequency_1"></td><td ID="MedicationDuration_1"></td><td ID="MedicationFormulaStrength_1">234 mg/1.5 mL</td><td ID="MedicationDosageForm_1">syringe</td><td ID="MedicationDosageFormCode_1"></td><td ID="MedicationDosageDescription_1"> </td><td ID="MedicationMedicationId_1">[id number]</td><td ID="MedicationAccount_1">[id number]</td><td ID="MedicationNpid_1">[id number]</td><td ID="MedicationAuthorFirstName_1">Anselmo</td><td ID="MedicationAuthorLastName_1">Amilcar</td><td ID="MedicationTaxonomyCode_1">[id number]</td><td ID="MedicationTaxonomyDesc_1">Nurse Practitioner</td><td ID="MedicationPhoneNumber_1">[phone]</td> [facility] ([facility]) 2.625 ML paliperidone palmitate 312 MG/ML Prefilled Sy ringe [Invega] Invega Socorroza 04/03/2021 12:00:00 AM EDT 819 mg/2.625 compl eted <td ID="MedicationRxNorm_3">6659170</td><td ID="MedicationMedication_3">Invega Trinza</td><td ID="MedicationRoute_3">intramuscularly</td><td ID="MedicationRouteConcept_3"></td><td ID="MedicationStartDate_3">04/03/2021</td><td ID="MedicationStopDate_3">07/02/2021</td><td ID="MedicationDosageFrequency_3">every three months</td><td ID="MedicationDuration_3">90</td><td ID="MedicationFormulaStrength_3">819 mg/2.625 mL</td><td ID="MedicationDosageForm_3">syringe</td><td ID="MedicationDosageFormCode_3"></td><td ID="MedicationDosageDescription_3"></td><td ID="MedicationMedicationId_3">[id number]</td><td ID="MedicationAccount_3">[id number]</td><td ID="MedicationNpid_3">[id number]</td><td ID="MedicationAuthorFirstName_3">Anselmo</td><td ID="MedicationAuthorLastName_3">Amilcar</td><td ID="MedicationTaxonomyCode_3">[id number]</td><td ID="MedicationTaxonomyDesc_3"> Nurse Practitioner</td><td ID="MedicationPhoneNumber_3">[phone]</td> [facility] ([facility]) 2.625 ML paliperidone palmitate 312 MG/ML Prefilled Sy ringe [Invega] Invega Socorroza 04/03/2021 12:00:00 AM EDT 819 mg/2.625 compl eted <td ID="MedicationRxNorm_4">[id number]</td><td ID="MedicationMedication_4">Invega Trinza</td><td ID="MedicationRoute_4">intramuscularly</td><td ID="MedicationRouteConcept_4"></td><td ID="MedicationStartDate_4">04/03/2021</td><td ID="MedicationStopDate_4">07/02/2021</td><td ID="MedicationDosageFrequency_4">every three months</td><td ID="MedicationDuration_4">90</td><td ID="MedicationFormulaStrength_4">819 mg/2.625 mL</td><td ID="MedicationDosageForm_4">syringe</td><td ID="MedicationDosageFormCode_4"></td><td ID="MedicationDosageDescription_4"></td><td ID="MedicationMedicationId_4">[id number]</td><td ID="MedicationAccount_4">[id number]</td><td ID="MedicationNpid_4">[id number]</td><td ID="MedicationAuthorFirstName_4">Anselmo</td><td ID="MedicationAuthorLastName_4">Amilcar</td><td ID="MedicationTaxonomyCode_4">[id number]</td><td ID="MedicationTaxonomyDesc_4"> Nurse Practitioner</td><td ID="MedicationPhoneNumber_4">[phone]</td> [facility] ([facility]) haloperidol decanoate haloperidol decanoate 04/03/2021 12:00:00 AM EDT 100 mg/mL completed <td ID="Me dicationRxNorm_2">[id number]</td><td ID="MedicationMedication_2">haloperidol decanoate</td><td ID="MedicationRoute_2">intramuscularly</td><td ID="MedicationRouteConcept_2"> </td><td ID="MedicationStartDate_2">04/03/2021</td><td ID="MedicationStopDate_2">04/03/2021</td><td ID="MedicationDosageFrequency_2">every four weeks</td><td ID="MedicationDuration_2">28</td><td ID="MedicationFormulaStrength_2">100 mg/mL</td><td ID="MedicationDosageForm_2">solution</td><td ID="MedicationDosageFormCode_2"></td><td ID="MedicationDosageDescription_2"></td><td ID="MedicationMedicationId_2">[id number]</td><td ID="MedicationAccount_2">[id number]</td><td ID="MedicationNpid_2">[id number]</td><td ID="MedicationAuthorFirstName_2">Anselmo</td><td ID="MedicationAuthorLastName_2">Amilcar</td><td ID="MedicationTaxonomyCode_2">[id number]</td><td ID="MedicationTaxonomyDesc_2"> Nurse Practitioner</td><td ID="MedicationPhoneNumber_2">[phone]</td> [facility] ([facility]) benztropine mesylate 1 MG Oral Tablet benztropine 04/03/2021 12:00 :00 AM EDT 1 mg by mouth completed <td ID="Me dicationRxNorm_2">459473</td><td ID="MedicationMedication_2">benztropine</td><td ID="MedicationRoute_2">by mouth</td><td ID="MedicationRouteConcept_2">H97749</td><td ID="MedicationStartDate_2">04/03/2021</td><td ID="MedicationStopDate_2">05/03/2021</td><td ID="MedicationDosageFrequency_2">at bedtime</td><td ID="MedicationDuration_2">30</td><td ID="MedicationFormulaStrength_2">1 mg</td><td ID="MedicationDosageForm_2">tablet</td><td ID="MedicationDosageFormCode_2"></td><td ID="MedicationDosageDescription_2"></td><td ID="MedicationMedicationId_2">[id number]</td><td ID="MedicationAccount_2">[id number]</td><td ID="MedicationNpid_2">[id number]</td><td ID="MedicationAuthorFirstName_2">Anselmo</td><td ID="MedicationAuthorLastName_2">Amilcar</td><td ID="MedicationTaxonomyCode_2">[id number]</td><td ID="MedicationTaxonomyDesc_2">Nurse Practitioner</td><td ID="MedicationPhoneNumber_2">[phone]</td> [facility] ([facility]) olanzapine 5 MG Oral Tablet [Zyprexa] Zyprexa 04/03/2021 12:00:00 AM EDT 5 mg by mouth completed <td ID="Medica tionRxNorm_1">313969</td><td ID="MedicationMedication_1">Zyprexa</td><td ID="MedicationRoute_1">by mouth</td><td ID="MedicationRouteConcept_1">W66442</td><td ID="MedicationStartDate_1">04/03/2021</td><td ID="MedicationStopDate_1">05/03/2021</td><td ID="MedicationDosageFrequency_1">at bedtime</td><td ID="MedicationDuration_1">30</td><td ID="MedicationFormulaStrength_1">5 mg</td><td ID="MedicationDosageForm_1">tablet</td><td ID="MedicationDosageFormCode_1"></td><td ID="MedicationDosageDescription_1"></td><td ID="MedicationMedicationId_1">[id number]</td><td ID="MedicationAccount_1">[id number]</td><td ID="MedicationNpid_1">[id number]</td><td ID="MedicationAuthorFirstName_1">Anselmo</td><td ID="MedicationAuthorLastName_1">Amilcar</td><td ID="MedicationTaxonomyCode_1">[id number]</td><td ID="MedicationTaxonomyDesc_1">Nurse Practitioner</td><td ID="MedicationPhoneNumber_1">[phone]</td> [facility] ([facility]) 2.625 ML paliperidone palmitate 312 MG/ML Prefilled Sy ringe [Invega] Invsuleiman Roth 04/03/2021 12:00:00 AM EDT 819 mg/2.625 compl eted <td ID="MedicationRxNorm_5">[id number]</td><td ID="MedicationMedication_5">Invega Trinza</td><td ID="MedicationRoute_5">intramuscularly</td><td ID="MedicationRouteConcept_5"></td><td ID="MedicationStartDate_5">04/03/2021</td><td ID="MedicationStopDate_5">07/02/2021</td><td ID="MedicationDosageFrequency_5">every three months</td><td ID="MedicationDuration_5">90</td><td ID="MedicationFormulaStrength_5">819 mg/2.625 mL</td><td ID="MedicationDosageForm_5">syringe</td><td ID="MedicationDosageFormCode_5"></td><td ID="MedicationDosageDescription_5"></td><td ID="MedicationMedicationId_5">[id number]</td><td ID="MedicationAccount_5">[id number]</td><td ID="MedicationNpid_5">[id number]</td><td ID="MedicationAuthorFirstName_5">Anselmo</td><td ID="MedicationAuthorLastName_5">Amilcar</td><td ID="MedicationTaxonomyCode_5">[id number]</td><td ID="MedicationTaxonomyDesc_5"> Nurse Practitioner</td><td ID="MedicationPhoneNumber_5">[phone]</td> [facility] ([facility]) benztropine mesylate 1 MG Oral Tablet benztropine 04/03/2021 12:00 :00 AM EDT 1 mg by mouth completed <td ID="Me dicationRxNorm_4">341868</td><td ID="MedicationMedication_4">benztropine</td><td ID="MedicationRoute_4">by mouth</td><td ID="MedicationRouteConcept_4">I75264</td><td ID="MedicationStartDate_4">04/03/2021</td><td ID="MedicationStopDate_4">05/03/2021</td><td ID="MedicationDosageFrequency_4">at bedtime</td><td ID="MedicationDuration_4">30</td><td ID="MedicationFormulaStrength_4">1 mg</td><td ID="MedicationDosageForm_4">tablet</td><td ID="MedicationDosageFormCode_4"></td><td ID="MedicationDosageDescription_4"></td><td ID="MedicationMedicationId_4">[id number]</td><td ID="MedicationAccount_4">[id number]</td><td ID="MedicationNpid_4">[id number]</td><td ID="MedicationAuthorFirstName_4">Anselmo</td><td ID="MedicationAuthorLastName_4">Amilcar</td><td ID="MedicationTaxonomyCode_4">[id number]</td><td ID="MedicationTaxonomyDesc_4">Nurse Practitioner</td><td ID="MedicationPhoneNumber_4">[phone]</td> [facility] ([facility]) olanzapine 5 MG Oral Tablet [Zyprexa] Zyprexa 04/03/2021 12:00:00 AM EDT 5 mg by mouth completed <td ID="Medica tionRxNorm_3">403815</td><td ID="MedicationMedication_3">Zyprexa</td><td ID="MedicationRoute_3">by mouth</td><td ID="MedicationRouteConcept_3">O10925</td><td ID="MedicationStartDate_3">04/03/2021</td><td ID="MedicationStopDate_3">05/03/2021</td><td ID="MedicationDosageFrequency_3">at bedtime</td><td ID="MedicationDuration_3">30</td><td ID="MedicationFormulaStrength_3">5 mg</td><td ID="MedicationDosageForm_3">tablet</td><td ID="MedicationDosageFormCode_3"></td><td ID="MedicationDosageDescription_3"></td><td ID="MedicationMedicationId_3">[id number]</td><td ID="MedicationAccount_3">[id number]</td><td ID="MedicationNpid_3">[id number]</td><td ID="MedicationAuthorFirstName_3">Anselmo</td><td ID="MedicationAuthorLastName_3">Amilcar</td><td ID="MedicationTaxonomyCode_3">[id number]</td><td ID="MedicationTaxonomyDesc_3">Nurse Practitioner</td><td ID="MedicationPhoneNumber_3">[phone]</td> [facility] ([facility]) 2.625 ML paliperidone palmitate 312 MG/ML Prefilled Sy ringe [Invega] Invega Trinza 04/03/2021 12:00:00 AM EDT 819 mg/2.625 compl eted <td ID="MedicationRxNorm_2">[id number]</td><td ID="MedicationMedication_2">Invega Trinza</td><td ID="MedicationRoute_2">intramuscularly</td><td ID="MedicationRouteConcept_2"></td><td ID="MedicationStartDate_2">04/03/2021</td><td ID="MedicationStopDate_2">07/02/2021</td><td ID="MedicationDosageFrequency_2">every three months</td><td ID="MedicationDuration_2">90</td><td ID="MedicationFormulaStrength_2">819 mg/2.625 mL</td><td ID="MedicationDosageForm_2">syringe</td><td ID="MedicationDosageFormCode_2"></td><td ID="MedicationDosageDescription_2"></td><td ID="MedicationMedicationId_2">[id number]</td><td ID="MedicationAccount_2">[id number]</td><td ID="MedicationNpid_2">[id number]</td><td ID="MedicationAuthorFirstName_2">Anselmo</td><td ID="MedicationAuthorLastName_2">Amilcar</td><td ID="MedicationTaxonomyCode_2">[id number]</td><td ID="MedicationTaxonomyDesc_2"> Nurse Practitioner</td><td ID="MedicationPhoneNumber_2">[phone]</td> [facility] ([facility]) haloperidol decanoate haloperidol decanoate 10/04/2020 12:00:00 AM EST 100 mg/mL completed <td ID="Me dicationRxNorm_1">3011465</td><td ID="MedicationMedication_1">haloperidol decanoate</td><td ID="MedicationRoute_1">intramuscularly</td><td ID="MedicationRouteConcept_1"> </td><td ID="MedicationStartDate_1">10/04/2020</td><td ID="MedicationStopDate_1">04/03/2021</td><td ID="MedicationDosageFrequency_1">as directed</td><td ID="MedicationDuration_1">21</td><td ID="MedicationFormulaStrength_1">100 mg/mL</td><td ID="MedicationDosageForm_1">solution</td><td ID="MedicationDosageFormCode_1"></td><td ID="MedicationDosageDescription_1"></td><td ID="MedicationMedicationId_1">[id number]</td><td ID="MedicationAccount_1">[id number]</td><td ID="MedicationNpid_1">[id number]</td><td ID="MedicationAuthorFirstName_1">Victorino</td><td ID="MedicationAuthorLastName_1">Escobar</td><td ID="MedicationTaxonomyCode_1">[id number]</td><td ID="MedicationTaxonomyDesc_1"> Psychiatry</td><td ID="MedicationPhoneNumber_1">[phone]</td> [facility] ([facility] 100 mg/mL 10/02/2020 12:00:00 AM EST [...] 50 mg by mouth completed <td ID="Medic ationRxNorm_5">400675</td><td ID="MedicationMedication_5">trazodone</td><td ID="MedicationRoute_5">by mouth</td><td ID="MedicationRouteConcept_5">F52289</td><td ID="MedicationStartDate_5">09/12/2020</td><td ID="MedicationStopDate_5">10/12/2020</td><td ID="MedicationDosageFrequency_5">every night</td><td ID="MedicationDuration_5">30</td><td ID="MedicationFormulaStrength_5">50 mg</td><td ID="MedicationDosageForm_5">tablet</td><td ID="MedicationDosageFormCode_5"></td><td ID="MedicationDosageDescription_5"></td><td ID="MedicationMedicationId_5">[id number]</td><td ID="MedicationAccount_5">[id number]</td><td ID="MedicationNpid_5">[id number]</td><td ID="MedicationAuthorFirstName_5">Kalli</td><td ID="MedicationAuthorLastName_5">Egorho</td><td ID="MedicationTaxonomyCode_5">[id number]</td><td ID="MedicationTaxonomyDesc_5">Nurse Practitioner</td><td ID="MedicationPhoneNumber_5">[phone]</td> [facility] ([facility]) Trazodone Hydrochloride 50 MG Oral Tablet trazodone 2019 12:00:00 AM EST 50 mg by mouth completed <td ID="Medic ationRxNorm_1">108701</td><td ID="MedicationMedication_1">trazodone</td><td ID="MedicationRoute_1">by mouth</td><td ID="MedicationRouteConcept_1">W27291</td><td ID="MedicationStartDate_1">09/12/2020</td><td ID="MedicationStopDate_1">10/12/2020</td><td ID="MedicationDosageFrequency_1">every night</td><td ID="MedicationDuration_1">30</td><td ID="MedicationFormulaStrength_1">50 mg</td><td ID="MedicationDosageForm_1">tablet</td><td ID="MedicationDosageFormCode_1"></td><td ID="MedicationDosageDescription_1"></td><td ID="MedicationMedicationId_1">[id number]</td><td ID="MedicationAccount_1">[id number]</td><td ID="MedicationNpid_1">[id number]</td><td ID="MedicationAuthorFirstName_1">Klali</td><td ID="MedicationAuthorLastName_1">Egorho</td><td ID="MedicationTaxonomyCode_1">[id number]</td><td ID="MedicationTaxonomyDesc_1">Nurse Practitioner</td><td ID="MedicationPhoneNumber_1">[phone]</td> [facility] ([facility]) Haldol Decanoate Haldol Decanoate 09/12/2020 12:00:00 AM EST 100 mg/mL completed <td ID="MedicationRx Norm_4">[id number]</td><td ID="MedicationMedication_4">Haldol Decanoate</td><td ID="MedicationRoute_4">intramuscularly</td><td ID="MedicationRouteConcept_4"></td><td ID="MedicationStartDate_4">09/12/2020</td><td ID="MedicationStopDate_4">09/15/2020</td><td ID="MedicationDosageFrequency_4">as directed</td><td ID="MedicationDuration_4">1</td><td ID="MedicationFormulaStrength_4">100 mg/mL</td><td ID="MedicationDosageForm_4">solution</td><td ID="MedicationDosageFormCode_4"></td><td ID="MedicationDosageDescription_4"></td><td ID="MedicationMedicationId_4">[id number]</td><td ID="MedicationAccount_4">[id number]</td><td ID="MedicationNpid_4">[id number]</td><td ID="MedicationAuthorFirstName_4">Kalli</td><td ID="MedicationAuthorLastName_4">Egorho</td><td ID="MedicationTaxonomyCode_4">[id number]</td><td ID="MedicationTaxonomyDesc_4">Nurse Practitioner</td><td ID="MedicationPhoneNumber_4">[phone]</td> [facility] ([facility]) quetiapine 300 MG Oral Tablet quetiapine 01/06/2020 12:00:00 AM EST 300 mg completed <td ID="Medicat ionRxNorm_4">813868</td><td ID="MedicationMedication_4">quetiapine</td><td ID="MedicationRoute_4"></td><td ID="MedicationRouteConcept_4"></td><td ID="MedicationStartDate_4">01/06/2020</td><td ID="MedicationStopDate_4">01/05/2021</td><td ID="MedicationDosageFrequency_4">at bedtime</td><td ID="MedicationDuration_4">30</td><td ID="MedicationFormulaStrength_4">300 mg</td><td ID="MedicationDosageForm_4">tablet</td><td ID="MedicationDosageFormCode_4"></td><td ID="MedicationDosageDescription_4"></td><td ID="MedicationMedicationId_4">[id number]</td><td ID="MedicationAccount_4">[id number]</td><td ID="MedicationNpid_4">[id number]</td><td ID="MedicationAuthorFirstName_4">Dane</td><td ID="MedicationAuthorLastName_4">Warren</td><td ID="MedicationTaxonomyCode_4">[id number]</td><td ID="MedicationTaxonomyDesc_4">Psychiatric/Mental Health</td><td ID="MedicationPhoneNumber_4">[phone]</td> [facility] ([facility]) quetiapine 300 MG Oral Tablet quetiapine 01/06/2020 12:00:00 AM EST 300 mg completed <td ID="Medicat ionRxNorm_1">011185</td><td ID="MedicationMedication_1">quetiapine</td><td ID="MedicationRoute_1"></td><td ID="MedicationRouteConcept_1"></td><td ID="MedicationStartDate_1">01/06/2020</td><td ID="MedicationStopDate_1">01/05/2021</td><td ID="MedicationDosageFrequency_1">at bedtime</td><td ID="MedicationDuration_1">30</td><td ID="MedicationFormulaStrength_1">300 mg</td><td ID="MedicationDosageForm_1">tablet</td><td ID="MedicationDosageFormCode_1"></td><td ID="MedicationDosageDescription_1"></td><td ID="MedicationMedicationId_1">60999</td><td ID="MedicationAccount_1">[id number]</td><td ID="MedicationNpid_1">[id number]</td><td ID="MedicationAuthorFirstName_1">Dane</td><td ID="MedicationAuthorLastName_1">Loida</td><td ID="MedicationTaxonomyCode_1">[id number]</td><td ID="MedicationTaxonomyDesc_1">Psychiatric/Mental Health</td><td ID="MedicationPhoneNumber_1">[phone]</td> [facility] ([facility]) quetiapine 300 MG Oral Tablet quetiapine 01/06/2020 12:00:00 AM EST 300 mg completed <td ID="Medicat ionRxNorm_5">844785</td><td ID="MedicationMedication_5">quetiapine</td><td ID="MedicationRoute_5"></td><td ID="MedicationRouteConcept_5"></td><td ID="MedicationStartDate_5">01/06/2020</td><td ID="MedicationStopDate_5">01/05/2021</td><td ID="MedicationDosageFrequency_5">at bedtime</td><td ID="MedicationDuration_5">30</td><td ID="MedicationFormulaStrength_5">300 mg</td><td ID="MedicationDosageForm_5">tablet</td><td ID="MedicationDosageFormCode_5"></td><td ID="MedicationDosageDescription_5"></td><td ID="MedicationMedicationId_5">[id number]</td><td ID="MedicationAccount_5">[id number]</td><td ID="MedicationNpid_5">[id number]</td><td ID="MedicationAuthorFirstName_5">Dane</td><td ID="MedicationAuthorLastName_5">Loida</td><td ID="MedicationTaxonomyCode_5">[id number]</td><td ID="MedicationTaxonomyDesc_5">Psychiatric/Mental Health</td><td ID="MedicationPhoneNumber_5">[phone]</td> [facility] ([facility]) Aristada Aristada 12/20/2019 12:00:00 AM EST mg/3.9 completed <td ID="MedicationRxNorm_3">3572905</td><td ID="MedicationMedication_3">Aristada</td><td ID="MedicationRoute_3">intramuscularly</td><td ID="MedicationRouteConcept_3"></td><td ID="MedicationStartDate_3">12/20/2019</td><td ID="MedicationStopDate_3">09/12/2020</td><td ID="MedicationDosageFrequency_3"></td><td ID="MedicationDuration_3"></td><td ID="MedicationFormulaStrength_3">1,064 mg/3.9 mL</td><td ID="MedicationDosageForm_3">suspension,extended rel syring</td><td ID="MedicationDosageFormCode_3"></td><td ID="MedicationDosageDescription_3">as directed</td><td ID="MedicationMedicationId_3">70779</td><td ID="MedicationAccount_3">[id number]</td><td ID="MedicationNpid_3">[id number]</td><td ID="MedicationAuthorFirstName_3">Dane</td><td ID="MedicationAuthorLastName_3">Loida</td><td ID="MedicationTaxonomyCode_3">[id number]</td><td ID="MedicationTaxonomyDesc_3"> Psychiatric/Mental Health</td><td ID="MedicationPhoneNumber_3">[phone]</td> [facility] ([facility]) Trazodone Hydrochloride 50 MG Oral Tablet trazodone 2018 12:00:00 AM EDT 50 mg by mouth completed <td ID="Medic ationRxNorm_2">911899</td><td ID="MedicationMedication_2">trazodone</td><td ID="MedicationRoute_2">by mouth</td><td ID="MedicationRouteConcept_2">N45069</td><td ID="MedicationStartDate_2">06/10/2019</td><td ID="MedicationStopDate_2">09/12/2020</td><td ID="MedicationDosageFrequency_2">at bedtime</td><td ID="MedicationDuration_2"></td><td ID="MedicationFormulaStrength_2">50 mg</td><td ID="MedicationDosageForm_2">tablet</td><td ID="MedicationDosageFormCode_2"></td><td ID="MedicationDosageDescription_2"></td><td ID="MedicationMedicationId_2">[id number]</td><td ID="MedicationAccount_2">[id number]</td><td ID="MedicationNpid_2">[id number]</td><td ID="MedicationAuthorFirstName_2">Dane</td><td ID="MedicationAuthorLastName_2">Warren</td><td ID="MedicationTaxonomyCode_2">[id number]</td><td ID="MedicationTaxonomyDesc_2">Psychiatric/Mental Health</td><td ID="MedicationPhoneNumber_2">[phone]</td> [facility] ([facility]) Amantadine Hydrochloride 100 MG Oral Capsule amantadine HCl 07/30/2017 12:00:00 AM EDT 100 mg by mouth completed <td ID="MedicationRxNorm_1">213177</td><td ID="MedicationMedication_1">amantadine HCl</td><td ID="MedicationRoute_1">by mouth</td><td ID="MedicationRouteConcept_1">T70222</td><td ID="MedicationStartDate_1">07/30/2017</td><td ID="MedicationStopDate_1">09/12/2020</td><td ID="MedicationDosageFrequency_1">every morning</td><td ID="MedicationDuration_1"></td><td ID="MedicationFormulaStrength_1">100 mg</td><td ID="MedicationDosageForm_1">capsule</td><td ID="MedicationDosageFormCode_1"></td><td ID="MedicationDosageDescription_1"></td><td ID="MedicationMedicationId_1">39653</td><td ID="MedicationAccount_1">[id number]</td><td ID="MedicationNpid_1">[id number]</td><td ID="MedicationAuthorFirstName_1">Dane</td><td ID="MedicationAuthorLastName_1">Loida</td><td ID="MedicationTaxonomyCode_1">[id number]</td><td ID="MedicationTaxonomyDesc_1">Psychiatric/Mental Health</td><td ID="MedicationPhoneNumber_1">[phone]</td> [facility] ([facility]) Insurance Providers Payer name Policy type / Coverage type Policy ID Covered constitution party ID Covered constitution party's relationship to shafer Policy Shafer Plan Information Medicaid S [id number] S [id number] Managed Care - Community Plan [facility] P [id number] S [id number] Medicaid S [id number] S [id number] UH I [id number] Self [id number] UHC I [id number] Self [id number] UH I [id number] Self [id number] Managed Care - UHC Community Plan P [id number] S [id number] Medicaid S [id number] S [id number] Managed Care - UHC Community Plan P [id number] S [id number] UNHC COMMUNITY PLAN [facility] [id number] SP [id number] [facility] MAN CRE [id number] SP [id number] [facility] [id number] SP [id number] SELF PAY [facility] OFFICE OF MENTAL HEALTH UNAVAILABLE S UNAVAILABLE MEDICAID [id number] S [id number] [facility] OFFICE OF MENTAL HEALTH [id number] S [id number] UNHC COMMUNITY PLAN MCDHMO [id number] SP [id number] [facility] OFFICE OF MENTAL HEALTH [id number] S [id number] [facility] [id number] SP [id number] SELF PAY ONLY [id number] SP [id number] [id number] SP [id number] SELF PAY SP [facility] O [id number] S [id number] [facility] [id number] SP [id number] Self Pay [facility]) O [id number] S [id number] [facility] [id number] SP [id number] MEDICAID [id number] SP [id number] [facility] COMMUNITY PLAN [facility] [id number] SP [id number] MEDICAID [id number] SP [id number] Problems, Conditions, and Diagnoses Code Display Name Description Problem Type Effective Dates Data Source(s) F11.10 Opioid abuse, uncomplicated F11.10 - Opioid abus e, uncomplicated Diagnosis 02/27/2021 08:12:00 PM EDT [facility] 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, uncomplicated F16.10 - Hallucinogen abuse, uncomplicated Diagnosis 02/27/2021 08:12:00 PM EDT [facility] F25.9 Schizoaffective disorder, unspecified F2 5.9 - Schizoaffective disorder, unspecified Diagnosis 02/27/2021 08:12:00 PM EDT [facility] Z13.9 Encounter for screening, unspecified Z13 .9 - Encounter for screening, unspecified Diagnosis 02/27/2021 08:12:[facility], hallucinations, substance abuse schizophrenia, hallucinations, substance abuse Diagnosis 09/22/2020 02:27:00 PM [facility] F15.20 Other stimulant dependence, uncomplicate d Stimulant Use Disorder, Moderate: Amphetamine-type substance Condition 09/02/2021 12:00:00 AM EDT [facility] ([facility]) F10.20 Alcohol dependence, uncomplicated Alcohol Use Disorder , Severe Condition 09/02/2021 12:00:00 AM EDT [facility] ([facility]) F17.200 Nicotine dependence, unspecified, uncomp licated Tobacco Use Disorder, Moderate Condition 09/02/2021 12:00:00 AM EDT [facility] ([facility]) F12.20 Cannabis dependence, uncomplicated Cannabis Use Disorder, Moderate Condition 09/02/2021 12:00:00 AM EDT [facility] ([facility]) F20.9 Schizophrenia, unspecified Schizophrenia Condition 09/02/2021 12:00:00 AM EDT [facility] ([facility]) Surgeries/Procedures Procedure Description Date Indications Data Source(s) THERAPEUTIC PROPHYLACTIC/DX INJECTION SUBQ/IM 09/02/2021 12:00:00 AM EDT - 09/02/2021 12:00:00 AM EDT [facility] ([facility]) THERAPEUTIC PROPHYLACTIC/DX INJECTION SUBQ/IM 09/02/20 12:00:00 AM EDT [facility] ([facility]) Comprehensive medication services, per 15 minutes 07/29/2021 12:00:00 AM EDT - 07/29/2021 12:00:00 AM EDT [facility] ([facility]) Comprehensive medication services, per 15 minutes 07/29/2021 12:00:00 AM EDT [facility] ([facility]) Comprehensive medication services, per 15 minutes 06/24/2021 12:00:00 AM EDT - 06/24/2021 12:00:00 AM EDT [facility] ([facility]) Comprehensive medication services, per 15 minutes 06/24/2021 12:00:00 AM EDT [facility] ([facility]) THERAPEUTIC PROPHYLACTIC/DX INJECTION SUBQ/IM 05/27/2021 12:00:00 AM EDT - 05/27/2021 12:00:00 AM EDT [facility] ([facility]) THERAPEUTIC PROPHYLACTIC/DX INJECTION SUBQ/IM 05/27/20 12:00:00 AM EDT [facility] ([facility]) Brief Individual Psychotherapy - 30 min 05/13/2021 12:00:00 AM EDT - 05/13/2021 12:00:00 AM EDT [facility] ([facility]) Brief Individual Psychotherapy - 30 min 05/13/2021 12: 00:00 AM EDT [facility] ([facility]) Comprehensive medication services, per 15 minutes 04/04/2021 12:00:00 AM EDT - 04/04/2021 12:00:00 AM EDT [facility] ([facility]) Comprehensive medication services, per 15 minutes 04/03/2021 12:00:00 AM EDT [facility] ([facility]) OFFICE OUTPATIENT VISIT 15 MINUTES 04/03 12:00:00 AM EDT - 04/03/2021 12:00:00 AM EDT [facility] ([facility]) Psychotherapy ADD ON - 30 Minutes 04/03/2021 12:00:00 AM EDT [facility] ([facility]) OFFICE OUTPATIENT VISIT 15 MINUTES 04/03/2021 12:00:00 AM EDT [facility] ([facility]) OFFICE OUTPATIENT VISIT 15 MINUTES 03/27 12:00:00 AM EDT - 03/27/2021 12:00:00 AM EDT [facility] ([facility]) OFFICE OUTPATIENT VISIT 15 MINUTES 03/27/2021 12:00:00 AM EDT [facility] ([facility]) OFFICE OUTPATIENT VISIT 15 MINUTES 03/19 12:00:00 AM EDT - 03/19/2021 12:00:00 AM EDT [facility] ([facility]) OFFICE OUTPATIENT VISIT 15 MINUTES 03/19/2021 12:00:00 AM EDT [facility] ([facility]) OFFICE OUTPATIENT VISIT 15 MINUTES 02/12 12:00:00 AM EDT - 02/12/2021 12:00:00 AM EDT [facility] ([facility]) OFFICE OUTPATIENT VISIT 15 MINUTES 02/12/2021 12:00:00 AM EDT [facility] ([facility]) OFFICE OUTPATIENT VISIT 15 MINUTES 02/07 12:00:00 AM EDT - 02/07/2021 12:00:00 AM EDT [facility] ([facility]) OFFICE OUTPATIENT VISIT 15 MINUTES 02/07/2021 12:00:00 AM EDT [facility] ([facility]) Brief Individual Psychotherapy - 30 min 02/01/2021 12:00:00 AM EDT - 02/01/2021 12:00:00 AM EDT [facility] ([facility]) Brief Individual Psychotherapy - 30 min 02/01/2021 12: 00:00 AM EDT [facility] ([facility]) OFFICE OUTPATIENT VISIT 15 MINUTES 01/23 12:00:00 AM EDT - 01/23/2021 12:00:00 AM EDT [facility] ([facility]) OFFICE OUTPATIENT VISIT 15 MINUTES 01/23/2021 12:00:00 AM EDT [facility] ([facility]) THERAPEUTIC PROPHYLACTIC/DX INJECTION SUBQ/IM 01/23/2021 12:00:00 AM EDT - 01/23/2021 12:00:00 AM EDT [facility] ([facility]) THERAPEUTIC PROPHYLACTIC/DX INJECTION SUBQ/IM 01/24/20 12:00:00 AM EDT [facility] ([facility]) Comprehensive medication services, per 15 minutes 01/18/2021 12:00:00 AM EDT - 01/18/2021 12:00:00 AM EDT [facility] ([facility]) Comprehensive medication services, per 15 minutes 01/18/2021 12:00:00 AM EDT [facility] ([facility]) OFFICE OUTPATIENT VISIT 15 MINUTES 01/17 12:00:00 AM EDT - 01/17/2021 12:00:00 AM EDT [facility] ([facility]) OFFICE OUTPATIENT VISIT 15 MINUTES 01/17/2021 12:00:00 AM EDT [facility] ([facility]) MHC Telemed E/M Lvl 3--Est pt 01/01/2021 12:00:00 AM EST - 01/01/2021 12:00:00 AM EST [facility] ([facility]) MHC Telemed E/M Lvl 3--Est pt 01/01/2021 12:00:[address] [facility] ([facility]) THERAPEUTIC PROPHYLACTIC/DX INJECTION SUBQ/IM 12/28/2020 12:00:00 AM EST - 12/28/2020 12:00:00 AM EST [facility] ([facility]) THERAPEUTIC PROPHYLACTIC/DX INJECTION SUBQ/IM 12/28/19 21 12:00:00 AM EST [facility] ([facility]) MHC Telemed E/M Lvl 3--Est pt 12/20/2020 12:00:00 AM EST - 12/20/2020 12:00:00 AM EST [facility] ([facility]) MHC Telemed E/M Lvl 3--Est pt 12/20/2020 12:00:[address] [facility] ([facility]) MHC Telemed E/M Lvl 3--Est pt 12/06/2020 12:00:00 AM EST - 12/06/2020 12:00:00 AM EST [facility] ([facility]) MHC Telemed E/M Lvl 3--Est pt 12/06/2020 12:00:[address] [facility] ([facility]) Comprehensive medication services, per 15 minutes 11/15/2020 12:00:00 AM EST - 11/15/2020 12:00:00 AM EST [facility] ([facility]) Comprehensive medication services, per 15 minutes 11/15/2020 12:00:00 AM EST [facility] ([facility]) OFFICE OUTPATIENT VISIT 15 MINUTES 11/15 12:00:00 AM EST - 11/15/2020 12:00:00 AM EST [facility] ([facility]) OFFICE OUTPATIENT VISIT 15 MINUTES 11/15/2020 12:00:00 AM EST [facility] ([facility]) THERAPEUTIC PROPHYLACTIC/DX INJECTION SUBQ/IM 10/18/2020 12:00:00 AM EST - 10/18/2020 12:00:00 AM EST [facility] ([facility]) THERAPEUTIC PROPHYLACTIC/DX INJECTION SUBQ/IM 10/18/20 20 12:00:00 AM EST [facility] ([facility]) THERAPEUTIC PROPHYLACTIC/DX INJECTION SUBQ/IM 10/15/2020 12:00:00 AM EST - 10/15/2020 12:00:00 AM EST [facility] ([facility]) THERAPEUTIC PROPHYLACTIC/DX INJECTION SUBQ/IM 10/15/20 20 12:00:00 AM EST [facility] ([facility]) THERAPEUTIC PROPHYLACTIC/DX INJECTION SUBQ/IM 10/04/2020 12:00:00 AM EST - 10/04/2020 12:00:00 AM EST [facility] ([facility]) THERAPEUTIC PROPHYLACTIC/DX INJECTION SUBQ/IM 10/04/20 20 12:00:00 AM EST [facility] ([facility]) OFFICE OUTPATIENT VISIT 15 MINUTES 10/04 12:00:00 AM EST - 10/04/2020 12:00:00 AM EST [facility] ([facility]) OFFICE OUTPATIENT VISIT 15 MINUTES 10/04/2020 12:00:00 AM EST [facility] ([facility]) OFFICE OUTPATIENT VISIT 15 MINUTES 09/12 12:00:00 AM EST - 09/12/2020 12:00:00 AM EST [facility] ([facility]) OFFICE OUTPATIENT VISIT 15 MINUTES 09/12/2020 12:00:00 AM EST [facility] ([facility]) THERAPEUTIC PROPHYLACTIC/DX INJECTION SUBQ/IM 09/12/2020 12:00:00 AM EST - 09/12/2020 12:00:00 AM EST [facility] ([facility]) THERAPEUTIC PROPHYLACTIC/DX INJECTION SUBQ/IM 09/12/20 20 12:00:00 AM EST [facility] ([facility]) OFFICE OUTPATIENT VISIT 15 MINUTES 08/10 12:00:00 AM EDT - 08/10/2020 12:00:00 AM EDT [facility] ([facility]) OFFICE OUTPATIENT VISIT 15 MINUTES 08/10/2020 12:00:00 AM EDT [facility] ([facility]) THERAPEUTIC PROPHYLACTIC/DX INJECTION SUBQ/IM 07/13/2020 12:00:00 AM EDT - 07/13/2020 12:00:00 AM EDT [facility] ([facility]) THERAPEUTIC PROPHYLACTIC/DX INJECTION SUBQ/IM 07/13/20 20 12:00:00 AM EDT [facility] ([facility]) Results ID Date Data Source [id number] 07/19/2021 10:40:00 AM EDT [facility] Name Value Range Interpretation Code Description Data Michelle rce(s) Supporting Document(s) SARS coronavirus 2 RNA [Presence] in Res piratory specimen by [facility]MI with probe detection NEGATIVE [facility] This lab was ordered by [facility] a nd reported by [facility]. ID Date Data Source [id number] 07/19/2021 09:50:00 AM EDT [facility] Name Value Range Interpretation Code Description Data Michelle rce(s) Supporting Document(s) SARS COVID ANTIGEN NEGATIVE [facility] This lab was ordered by [facility] a nd reported by [facility]. ID Date Data Source [id number] 06/04/2021 08:17:00 PM EDT [facility] Name Value Range Interpretation Code Description Data Michelle rce(s) Supporting Document(s) SARS coronavirus 2 RNA [Presence] in Res piratory specimen by OMI with probe detection NEGATIVE [facility] This lab was ordered by [facility] a nd reported by [facility]. ID Date Data Source [id number] 05/01/2021 01:57:00 PM EDT [facility] Name Value Range Interpretation Code Description Data Michelle rce(s) Supporting Document(s) SARS coronavirus 2 RNA [Presence] in Res piratory specimen by OMI with probe detection NEGATIVE [facility] This lab was ordered by [facility] a nd reported by [facility]. ID Date Data Source [id number] 04/19/2021 06:29:00 AM EDT [facility] Name Value Range Interpretation Code Description Data Michelle rce(s) Supporting Document(s) SARS coronavirus 2 RNA [Presence] in Res piratory specimen by OMI with probe detection NEGATIVE [facility] This lab was ordered by [facility] a nd reported by [facility]. ID Date Data Source [id number] 04/17/2021 05:50:00 PM EDT [facility] Name Value Range Interpretation Code Description Data Michelle rce(s) Supporting Document(s) SARS-CoV-2 (COVID-19) RNA [Presence] in Respiratory specimen by OMI with probe detection Not Detected [facility] This lab was ordered by [facility] and reported by [employer]. ID Date Data Source [id number] 02/28/2021 04:53:00 PM EDT [address] [address] HEALTH INFORMATION MANAGEMENT History and Physical Report : [id number] Signed Patient: Gabo Parra Acct:[id number] Unit: Low [id number] : 1980 Loc: [facility] Room/Bed: 820 Age/Sex: 40 / M [...] charges for this visit?: Yes Inpt Consult [id number] Cons Level 1: Yes Signed By:Rambo Summers <<Signature on File>> Signed Date/Time: 02/28/211657 Co-Signer: Leonel Hubbard MD Co-Signed Date/Time: 02/28/211724 Initializing User: Rambo Summers NP 02/28/211652 52 52 Name Value Range Interpretation Code Description Data Michelle rce(s) Supporting Document(s) ID Date Data Source [id number] 02/28/2021 10:45:00 AM [facility] [address] [place] [address] HEALTH INFORMATION MANAGEMENT [facility] Psychosocial Summary : [id number] Signed Patient: Gabo Parra Acct:[id number] Unit: M [id number] : 1980 Loc: [facility] Room/Bed: 820B Age/Sex: 40 / M ADM Date: 02/27/21 cc: General/History - Presenting Problem Presenting Problem: Social Summary/Discharge plan Presenting Problem Gabo is a40 yo AAM, extensive psych hx, also problems with substance abuse admitted on a transfer from [facility] ER brought in there by his CW as pt was feeling depressed, suicidal, also hallucinating and after abusing drugs History. tates was partially complaint with meds. Not able to name his psychiatrist in [place], not able to name the therapist. Gives h/o 5 to 6 inpt psych txs, last one few months ago, "I can't remember the place, they send me from [facility]. " Also, h'o inpt psych tx at [facility]. H/o self harm time, tried to hand [...] Person?: No Are you part of any bahai/spirtual community?: Yes ([facility] ) - Current Living/Relationship History Current Living Arrangement: House Who Do You Live With?: Mother. OK to Return Home: Yes Weapons in household: No Currently in a Relationship?: No Ever Been ?: No Any Children?: 2 - Family History Where Were You Born/Raised?: [place] Who Was in Home?: Mother, Father How [...] Reducing Risk: Complies with Tx/Meds, Future Oriented, Christianity Beliefs Mental Status Treatment - Mental Status [...] rce(s) Supporting Document(s) ID Date Data Source [id number] 02/27/2021 04:28:00 PM EDT [facility] Name Value Range Interpretation Code Description Data Michelle rce(s) Supporting Document(s) SARS coronavirus 2 RNA [Presence] in Res piratory specimen by [facility]MI with probe detection NEGATIVE [facility] This lab was ordered by [facility] a nd reported by [facility]. ID Date Data Source [id number] 01/23/2021 01:03:00 AM EDT [facility] Name Value Range Interpretation Code Description Data Michelle rce(s) Supporting Document(s) SARS coronavirus 2 RNA [Presence] in Res piratory specimen by [facility]MI with probe detection NEGATIVE [facility] This lab was ordered by [facility] a nd reported by [facility]. ID Date Data Source [id number] 10/17/2020 12:19:00 AM EST [facility] Name Value Range Interpretation Code Description Data Michelle rce(s) Supporting Document(s) SARS coronavirus 2 RNA [Presence] in Res piratory specimen by [facility]MI with probe detection [facility] This lab was ordered by [facility] a nd reported by [facility]. Procedure Social History Code Duration Value Status Description Data Source(s ) Smoking 09/02/2021 12:00:00 AM EDT Unknown if ever smoked comp leted Unknown if ever smoked [facility] ([facility]) Smoking 07/29/2021 12:00:00 AM EDT Unknown if ever smoked comp leted Unknown if ever smoked [facility] ([facility]) Smoking 06/24/2021 12:00:00 AM EDT Unknown if ever smoked comp leted Unknown if ever smoked [facility] ([facility]) Smoking 05/27/2021 12:00:00 AM EDT Unknown if ever smoked comp leted Unknown if ever smoked [facility] ([facility]) Smoking 05/13/2021 12:00:00 AM EDT Unknown if ever smoked comp leted Unknown if ever smoked [facility] ([facility]) Smoking 04/04/2021 12:00:00 AM EDT Unknown if ever smoked comp leted Unknown if ever smoked [facility] ([facility]) Smoking 04/03/2021 12:00:00 AM EDT Unknown if ever smoked comp leted Unknown if ever smoked [facility] ([facility]) Smoking 03/27/2021 12:00:00 AM EDT Unknown if ever smoked comp leted Unknown if ever smoked [facility] ([facility]) Smoking 03/19/2021 12:00:00 AM EDT Unknown if ever smoked comp leted Unknown if ever smoked [facility] ([facility]) Smoking 02/12/2021 12:00:00 AM EDT Unknown if ever smoked comp leted Unknown if ever smoked [facility] ([facility]) Smoking 02/07/2021 12:00:00 AM EDT Unknown if ever smoked comp leted Unknown if ever smoked [facility] ([facility]) Smoking 02/01/2021 12:00:00 AM EDT Unknown if ever smoked comp leted Unknown if ever smoked [facility] ([facility]) Smoking 01/23/2021 12:00:00 AM EDT Unknown if ever smoked comp leted Unknown if ever smoked [facility] ([facility]) Smoking 01/18/2021 12:00:00 AM EDT Unknown if ever smoked comp leted Unknown if ever smoked [facility] ([facility]) Smoking 01/17/2021 12:00:00 AM EDT Unknown if ever smoked comp leted Unknown if ever smoked [facility] ([facility]) Smoking 01/01/2021 12:00:00 AM EST Unknown if ever smoked comp leted Unknown if ever smoked [facility] ([facility]) Smoking 12/28/2020 12:00:00 AM EST Unknown if ever smoked comp leted Unknown if ever smoked [facility] ([facility]) Smoking 12/20/2020 12:00:00 AM EST Unknown if ever smoked comp leted Unknown if ever smoked [facility] ([facility]) Smoking 12/06/2020 12:00:00 AM EST Unknown if ever smoked comp leted Unknown if ever smoked [facility] ([facility]) Smoking 11/15/2020 12:00:00 AM EST Unknown if ever smoked comp leted Unknown if ever smoked [facility] ([facility]) Smoking 10/18/2020 12:00:00 AM EST Unknown if ever smoked comp leted Unknown if ever smoked [facility] ([facility]) Smoking 10/15/2020 12:00:00 AM EST Unknown if ever smoked comp leted Unknown if ever smoked [facility] ([facility]) Smoking 10/04/2020 12:00:00 AM EST Unknown if ever smoked comp leted Unknown if ever smoked [facility] ([facility]) Smoking 09/12/2020 12:00:00 AM EST Unknown if ever smoked comp leted Unknown if ever smoked [facility] ([facility]) Smoking 08/10/2020 12:00:00 AM EDT Unknown if ever smoked comp leted Unknown if ever smoked [facility] ([facility]) Smoking 07/13/2020 12:00:00 AM EDT Unknown if ever smoked comp leted Unknown if ever smoked [facility] ([facility]) Vital Signs ID Date Data Source UNK Name Value Range Interpretation Code Description Data Source(s) Body height 0.00 in Normal (applies to non-numeric resu lts) 0.00 in [facility] Body weight Measured 0.00 lbs Normal (applies to n on-numeric results) 0.00 lbs [facility] Body mass index (BMI) [Ratio] 0.00 kg/m2 No rmal (applies to non-numeric results) 0.00 kg/m2 [facility] ([facility]) Systolic blood pressure 0 mm[Hg] Normal (applies t o non-numeric results) 0 mm[Hg] [facility] ([facility]) Diastolic blood pressure 0 mm[Hg] Normal (applies to non-numeric results) 0 mm[Hg] [facility] ([facility]) Body height 0.00 in Normal (applies to non-numeric resu lts) 0.00 in [facility] ([facility]) Body weight Measured 0.00 lbs Normal (applies to n on-numeric results) 0.00 lbs [facility]) Body mass index (BMI) [Ratio] 0.00 kg/m2 No rmal (applies to non-numeric results) 0.00 kg/m2 [facility] ([facility]) Systolic blood pressure 0 mm[Hg] Normal (applies t o non-numeric results) 0 mm[Hg] [facility] ([facility]) Diastolic blood pressure 0 mm[Hg] Normal (applies to non-numeric results) 0 mm[Hg] [facility] ([facility]) Body height 0.00 in Normal (applies to non-numeric resu lts) 0.00 in [facility] ([facility]) Body weight Measured 0.00 lbs Normal (applies to n on-numeric results) 0.00 lbs [facility] ([facility]) Body mass index (BMI) [Ratio] 0.00 kg/m2 No rmal (applies to non-numeric results) 0.00 kg/m2 [facility] ([facility]) Systolic blood pressure 0 mm[Hg] Normal (applies t o non-numeric results) 0 mm[Hg] [facility] ([facility]) Diastolic blood pressure 0 mm[Hg] Normal (applies to non-numeric results) 0 mm[Hg] [facility] ([facility]) Body height 0.00 in Normal (applies to non-numeric resu lts) 0.00 in [facility] ([facility]) Body weight Measured 0.00 lbs Normal (applies to n on-numeric results) 0.00 lbs [facility] ([facility]) Body mass index (BMI) [Ratio] 0.00 kg/m2 No rmal (applies to non-numeric results) 0.00 kg/m2 [facility] ([facility]) Systolic blood pressure 0 mm[Hg] Normal (applies t o non-numeric results) 0 mm[Hg] [facility] ([facility]) Diastolic blood pressure 0 mm[Hg] Normal (applies to non-numeric results) 0 mm[Hg] [facility] ([facility]) ID Date Data Source [id number] 09/22/2020 02:27:59 PM [facility] Name Value Range Interpretation Code Description Data Source(s) TRANSFER FROM [facility]
[2021-09-03] MEDS ORDERED: ACETAMINOPHEN TAB 650MG DOSE (2X325MG) PO ONE (07:00)
[2021-09-03 10:05] VITALS: BP 115/64
== END 2021-09-03 13:50 | disposition home or self-care (01) ==
LOC: M ED 03:32
DX: F20.9 Schizophrenia, unspecified (principal); I10 Essential (primary) hypertension

== ENCOUNTER 2021-09-08 08:33 | Emergency (ER) | payer OTHER ==
[~2021-09-08] VITALS: Ht 175.3 cm; Wt 72.3 kg
[2021-09-08 08:34] VITALS: BP 136/83
--- OUTSIDE RECORDS SUMMARY | 2021-09-08 08:41 | CCD ---
Author Author [facility] Organization [facility] Address Unknown Phone Unavailable Support Name Relationship Address Phone Hudson GUTIERREZ, Pasha Next Of Kin [address] [place] [address] Diamante Costa Next Of Kin [address] [place] [address] Dwain Joseph DO Next Of Kin [address] [place] [address] Cameron Bingham MD Next Of Kin [address] [place] [address] SELFGARY Next Of Kin [address] [place] [address] YONI JACK Next Of Kin [address] [place] [address] CORRECTIONAL, [place] JOLLA Next Of Kin [address] [place] [address] Monique Conklin MD Next Of Kin [address] [place] [phone] YONI CALHOUN Next Of Kin [address] [place] [address] Isabelle Manning Next Of Kin [address] [place] [address] Pat Gallo DO Next Of Kin [address] [place] [address] DISABLED Next Of Kin Unknown Unavailable Robbins Self Next Of Kin [address] [place] [phone] SELF, JUNIOR Next Of Kin [address] [place] [address] UE Next Of Kin Unknown Unavailable SIMON WALL Next Of Kin [address] [place] [address] SELF, JUNIOR [address] [place] [address] Unavailable Care Team Providers Care Tenter Frame Operator Name Role Phone Farden, M Rambo Unavailable Unavailable Farden, M Rambo Unavailable Unavailable Farden, M Rambo Unavailable Unavailable Farden, M Rambo Unavailable Unavailable Farden, M Rambo Unavailable Unavailable Farden, M Rambo Unavailable Unavailable Farden, M Rambo Unavailable Unavailable Farden, M Rambo Unavailable Unavailable Farden, M Rabmo Unavailable Unavailable Farden, M Rambo Unavailable Unavailable [...] Unavailable Gina Nash Unavailable AMILCAR, H ANSELMO SCORING MACHINE OPERATOR Unavailable Unavailable AMILCAR, H ANSELMO SCORING MACHINE OPERATOR Unavailable Unavailable AMILCAR, H ANSELMO SCORING MACHINE OPERATOR Unavailable Unavailable AMILCAR, H ANSELMO SCORING MACHINE OPERATOR Unavailable Unavailable AMILCAR, H ANSELMO SCORING MACHINE OPERATOR Unavailable Unavailable AMILCAR, H ANSELMO SCORING MACHINE OPERATOR Unavailable Unavailable AMILCAR, H ANSELMO SCORING MACHINE OPERATOR Unavailable Unavailable AMILCAR, H ANSELMO SCORING MACHINE OPERATOR Unavailable Unavailable AMILCAR, H ANSELMO SCORING MACHINE OPERATOR Unavailable Unavailable Jossie Marcelino Unavailable Rotella, [...] law may result in a fine or intermediate sentence or both. A general authorization for the release of medical or other information is NOT sufficient authorization for further disc losure. Allergies and Adverse Reactions Type Description Substance Reaction Status Data Source(s ) Drug allergy No Known Allergies No Known Allergies [facility] Propensity to adverse reactions NO KNOWN ALLERGIES NO KNOWN ALLERGIES [facility] Encounters Encounter Providers Location Date Indications Data Source(s ) Injectable Psychotropic Medication Administration (Inj ection Only) Attender: Thalia Carreno [facility] 09/02/2021 10:30:00 AM EDT - 09/02/2021 10:30:00 AM EDT [facility] ([facility]) Attender: Thalia Carreno 09/02/2021 12:00:00 AM EDT [facility] ([facility]) Injectable Medication Administration w/ Monitoring & E ducation Attender: [facility] 07/29/2021 02:30:00 AM EDT - 07/29/2021 02:30:00 AM EDT [facility] ([facility]) Attender: Pam Isbellpo 07/29/2021 12:00:00 AM EDT [facility] ([facility]) Injectable Medication Administration w/ Monitoring & E ducation Attender: Thalia Carreno [facility] 06/24/2021 10:45:00 AM EDT - 06/24/2021 10:45:00 AM EDT [facility] ([facility]) Attender: Thalia Carreno 06/24/2021 12:00:00 AM EDT [facility] ([facility]) Injectable Psychotropic Medication Administration (Inj ection Only) Attender: Thalia [facility] 05/27/2021 08:15:00 AM EDT - 05/27/2021 08:15:00 AM EDT [facility] ([facility]) Attender: Thalia Carreno 05/27/2021 12:00:00 AM EDT [facility] ([facility]) Brief Individual Psychotherapy - 30 min Attender: Gina yun [facility] 05/13/2021 08:30:00 AM EDT - 05/13/2021 08:30:00 AM EDT [facility] ([facility]) Attender: Gina Nash 05/13/2021 12:00:00 AM EDT [facility] ([facility]) Attender: Pam Juarez 04/04/2021 12:00:00 AM EDT [facility] ([facility]) Injectable Medication Administration w/ Monitoring & E ducation Attender: Pam Juarez [facility] 04/03/2021 09:00:00 AM EDT - 04/03/2021 09:00:00 AM EDT [facility] ([facility]) Outpatient Attender: ANSELMO APONTE NP [facility] Mike garcía 04/03/2021 08:30:00 AM EDT - 04/03/2021 08:30:00 AM EDT [facility] ([facility]) Attender: ANSELMO APONTE NP 04/03/2021 12:00:00 AM EDT [facility] ([facility]) Outpatient Attender: ANSELMO APONTE NP [facility] Mike garcía 03/27/2021 11:00:00 AM EDT - 03/27/2021 11:00:00 AM EDT [facility] ([facility]) Attender: ANSELMO APONTE NP 03/27/2021 12:00:00 AM EDT [facility] ([facility]) Outpatient Attender: ANSELMO APONTE NP [facility] Mike garcía 03/19/2021 03:00:00 AM EDT - 03/19/2021 03:00:00 AM EDT [facility] ([facility]) Attender: ANSELMO APONTE NP 03/19/2021 12:00:00 AM EDT [facility] ([facility]) Inpatient Attender: JONNATHAN TRACY MDAdmitter: JONNATHAN TRACY MD 02/27/2021 08:12:00 PM EDT - 03/08/2021 03:27:00 PM EDT Suicidal Ideation / Homicidal Ideation [facility] Suicidal Ideation / Homicidal Ideation Patient discharged. Outpatient Attender: JONNATHAN TRACY MDAdmi tter: JONNATHAN TRACY MDConsultant: JONNATHAN TRACY MD 02/27/2021 08:12:00 PM EDT Suicidal Ideation / H omicidal Ideation [facility] Suicidal Ideation / Homicidal Ideation Outpatient Attender: JONNATHAN TRACY MDAdmi tter: JONNATHAN TRACY MDConsultant: JONNATHAN TRACY MD 02/27/2021 08:12:00 PM EDT Suicidal Ideation / H omicidal Ideation [facility] Suicidal Ideation / Homicidal Ideation Outpatient Attender: Castro ColonAdmitter : JONNATHAN TRACY MDConsultant: JONNATHAN TRACY MD 02/27/2021 08:12:00 PM EDT Suicidal Ideation / H omicidal Ideation [facility] Suicidal Ideation / Homicidal Ideation Outpatient Attender: JONNATHAN TRACY MDAdmi tter: JONNATHAN TRACY MDConsultant: JONNATHAN TRACY MD 02/27/2021 08:12:00 PM EDT Suicidal Ideation / H omicidal Ideation [facility] Suicidal Ideation / Homicidal Ideation Outpatient Attender: JONNATHAN TRACY MDAdmi tter: JONNATHAN TRACY MDConsultant: JONNATHAN TRACY MD 02/27/2021 08:12:00 PM EDT Suicidal Ideation / H omicidal Ideation [facility] Suicidal Ideation / Homicidal Ideation Outpatient Attender: JONNATHAN TRACY MDAdmi tter: JONNATHAN TRACY MDConsultant: JONNATHAN TRACY MD 02/27/2021 08:12:00 PM EDT Suicidal Ideation / H omicidal Ideation [facility] Suicidal Ideation / Homicidal Ideation Outpatient Attender: Castro ColonAdmitter : JONNATHAN TRACY MDConsultant: JONNATHAN TRACY MD 02/27/2021 08:12:00 PM EDT Suicidal Ideation / H omicidal Ideation [facility] Suicidal Ideation / Homicidal Ideation Outpatient Attender: Castro ZayasAdmitter : JONNATHAN TRACY MDConsultant: JONNATHAN TRACY MD 02/27/2021 08:12:00 PM EDT Suicidal Ideation / H omicidal Ideation [facility] Suicidal Ideation / Homicidal Ideation Outpatient Attender: JONNATHAN TRACY MDAdmi tter: JONNATHAN TRACY MDConsultant: JONNATHAN TRACY MD 02/27/2021 08:12:00 PM EDT Suicidal Ideation / H omicidal Ideation [facility] Suicidal Ideation / Homicidal Ideation Outpatient Attender: Rambo Pedroza mitter: JONNATHAN TRACY MDConsultant: JONNATHAN TRACY MD 02/27/2021 08:12:00 PM EDT Suicidal Ideation / H omicidal Ideation [facility] Suicidal Ideation / Homicidal Ideation Outpatient Attender: ANSELMO APONTE NP [facility] Mike garcía 02/12/2021 10:30:00 AM EDT - 02/12/2021 10:30:00 AM EDT [facility] ([facility]) Attender: ANSELMO APONTE NP 02/12/2021 12:00:00 AM EDT [facility] ([facility]) Outpatient Attender: ANSELMO APONTE NP [facility] Mike raquel 02/07/2021 11:30:00 AM EDT - 02/07/2021 11:30:00 AM EDT [facility] ([facility]) Attender: ANSELMO APONTE NP 02/07/2021 12:00:00 AM EDT [facility] ([facility]) Brief Individual Psychotherapy - 30 min Attender: Gina yun [facility] Maria Alejandra 02/01/2021 02:00:00 AM EDT - 02/01/2021 02:00:00 AM EDT [facility] ([facility]) Attender: Gina Nash 02/01/2021 12:00:00 AM EDT [facility] ([facility]) Injectable Psychotropic Medication Administration (Inj ection Only) [facility] 10:00:00 AM EDT - 01/23/2021 10:00:00 AM EDT [facility] ([facility]) Outpatient Attender: ANSELMO APONTE NP [facility] Mike garcía 01/23/2021 09:15:00 AM EDT - 01/23/2021 09:15:00 AM EDT [facility] ([facility]) Attender: ANSELMO APONTE NP 01/23/2021 12:00:00 AM EDT [facility] ([facility]) Attender: Thalia Carreno 01/23/2021 12:00:00 AM EDT [facility] ([facility]) Injectable Medication Administration w/ Monitoring & E ducation Attender: Pam Juarez [facility] 01/18/2021 11:00:00 AM EDT - 01/18/2021 11:00:00 AM EDT [facility] ([facility]) Attender: Pam Juarez 01/18/2021 12:00:00 AM EDT [facility] ([facility]) Outpatient Attender: ANSELMO APONTE NP [facility] Mike garcía 01/17/2021 09:00:00 AM EDT - 01/17/2021 09:00:00 AM EDT [facility] ([facility]) Attender: ANSELMO APONTE NP 01/17/2021 12:00:00 AM EDT [facility] ([facility]) Outpatient Attender: ANSELMO APONTE NP [facility] Mike garcía 01/01/2021 02:30:00 AM EST - 01/01/2021 02:30:00 AM EST [facility] ([facility]) Attender: ANSELMO APONTE NP 01/01/2021 12:00:00 AM EST [facility] ([facility]) Injectable Psychotropic Medication Administration (Inj ection Only) Attender: Jossie Marcelino [facility] 12/28/2020 10:30:00 AM EST - 12/28/2020 10:30:00 AM EST [facility] ([facility]) Attender: Jossie Ryland 12/28/2020 12:00:00 AM EST [facility] ([facility]) Outpatient Attender: Victorino Escobar MD [facility] Mike garcía 12/20/2020 09:30:00 AM EST - 12/20/2020 09:30:00 AM EST [facility] ([facility]) Attender: Victorino Escobar MD 12/20/2020 12:00:00 AM EST [facility] ([facility]) Outpatient Attender: Victorino Escobar MD [facility] 12/06/2020 12:30:00 PM EST - 12/06/2020 12:30:00 PM EST [facility] ([facility] Attender: Victorino Escobar MD 12/06/2020 12:00:00 AM EST [facility] ([facility]) Injectable Medication Administration w/ Monitoring & E ducation Attender: ORGANIZATION NPI ALIASES [facility] 11/15/2020 11:15: 00 AM EST - 11/15/2020 11:15:00 AM EST [facility] ([facility]) Outpatient Attender: Victorino Escobar MD [facility] 11/15/2020 11:00:00 AM EST - 11/15/2020 11:00:00 AM EST [facility] ([facility]) Attender: ORGANIZATION NPI ALIASES * 11/15/2020 12:00:00 AM EST [facility] ([facility]) Attender: Victorino Escobar MD 11/15/2020 12:00:00 AM EST [facility] ([facility]) Injectable Psychotropic Medication Administration (Inj ection Only) Attender: Jossy Mejia [facility] 10/18/2020 10:30:00 AM EST - 10/18/2020 10:30:00 AM EST [facility] ([facility]) Attender: Jossy Mejia 10/18/2020 12:00:00 AM EST [facility] ([facility]) Injectable Psychotropic Medication Administration (Inj ection Only) Attender: Jossy Mejia [facility] 10/15/2020 11:00:00 AM EST - 10/15/2020 11:00:00 AM EST [facility] ([facility]) Attender: Jossy Mejia 10/15/2020 12:00:00 AM EST [facility] ([facility]) Injectable Psychotropic Medication Administration (Inj ection Only) Attender: Jossy Mejia [facility] 10/04/2020 10:30:00 AM EST - 10/04/2020 10:30:00 AM EST [facility] ([facility]) Outpatient Attender: KALLI MOLINAURSZULA [facility] 10/04/2020 10:00:00 AM EST - 10/04/2020 10:00:00 AM EST [facility] ([facility]) Attender: Jossy Mejia 10/04/2020 12:00:00 AM EST [facility] ([facility]) Attender: KALLI MOLINAURSZULA 10/04/2020 12:00: 00 AM EST [facility] ([facility]) Outpatient Referrer: [facility] 09/22/2020 0 2:27:00 PM EST schizophrenia, hallucinations, substance abuse [facility] schizophrenia, hallucinations, substance abuse Injectable Psychotropic Medication Administration (Inj ection Only) Attender: Jossy Mejia [facility] 09/12/2020 09:30:00 AM EST - 09/12/2020 09:30:00 AM EST [facility] ([facility]) Outpatient Attender: KALLI MOLINAURSZULA [facility] 09/12/2020 09:00:00 AM EST - 09/12/2020 09:00:00 AM EST [facility] ([facility]) Attender: KALLI MOLINAURSZULA 09/12/2020 12:00: 00 AM EST [facility] ([facility]) Attender: Jossy Mejia 09/12/2020 12:00:00 AM EST [facility] ([facility]) Outpatient Attender: KALLI IGLESIAS [facility] Lynn mora 08/10/2020 02:00:00 AM EDT - 08/10/2020 02:00:00 AM EDT [facility] 12:00: 00 AM EDT [facility] ([facility]) Injectable Psychotropic Medication Administration (Inj ection Only) Attender: Jossy Mejia [facility] 07/13/2020 02:00:00 AM EDT - 07/13/2020 02:00:00 AM EDT [facility] ([facility]) Attender: Jossy Mejia 07/13/2020 12:00:00 AM EDT [facility] ([facility]) Outpatient Attender: Pasha Treviño MD 07/12/2020 02:46:50 PM EDT [facility] Functional Status Medications Medication Brand Name Start Date Product Form Dose Route Admi nistrative Instructions Pharmacy Instructions Status Indications Reaction Description Data Source(s) Prazosin 1 MG Oral Capsule prazosin 07/10/2021 12:00:00 AM EDT 1 mg by mouth completed <td ID="Medicat ionRxNorm_4">227517</td><td ID="MedicationMedication_4">prazosin</td><td ID="MedicationRoute_4">by mouth</td><td ID="MedicationRouteConcept_4">X16379</td><td ID="MedicationStartDate_4">07/10/2021</td><td ID="MedicationStopDate_4">09/30/2021</td><td ID="MedicationDosageFrequency_4">at bedtime</td><td ID="MedicationDuration_4">30</td><td ID="MedicationFormulaStrength_4">1 mg</td><td ID="MedicationDosageForm_4">capsule</td><td ID="MedicationDosageFormCode_4"></td><td ID="MedicationDosageDescription_4"></td><td ID="MedicationMedicationId_4">[id number]</td><td ID="MedicationAccount_4">[id number]</td><td ID="MedicationNpid_4">[id number]</td><td ID="MedicationAuthorFirstName_4">Anselmo</td><td ID="MedicationAuthorLastName_4">Amilcar</td><td ID="MedicationTaxonomyCode_4">[id number]</td><td ID="MedicationTaxonomyDesc_4">Nurse Practitioner</td><td ID="MedicationPhoneNumber_4">[phone]</td> [facility] ([facility]) olanzapine 5 MG Oral Tablet [Zyprexa] Zyprexa 05/23/2021 12:00:00 AM EDT 5 mg by mouth completed <td ID="Medica tionRxNorm_2">[id number]</td><td ID="MedicationMedication_2">Zyprexa</td><td ID="MedicationRoute_2">by mouth</td><td ID="MedicationRouteConcept_2">Q22840</td><td ID="MedicationStartDate_2">05/23/2021</td><td ID="MedicationStopDate_2">09/30/2021</td><td ID="MedicationDosageFrequency_2">at bedtime</td><td ID="MedicationDuration_2">30</td><td ID="MedicationFormulaStrength_2">5 mg</td><td ID="MedicationDosageForm_2">tablet</td><td ID="MedicationDosageFormCode_2"></td><td ID="MedicationDosageDescription_2"></td><td ID="MedicationMedicationId_2">[id number]</td><td ID="MedicationAccount_2">[id number]</td><td ID="MedicationNpid_2">[id number]</td><td ID="MedicationAuthorFirstName_2">Anselmo</td><td ID="MedicationAuthorLastName_2">Amilcar</td><td ID="MedicationTaxonomyCode_2">[id number]</td><td ID="MedicationTaxonomyDesc_2">Nurse Practitioner</td><td ID="MedicationPhoneNumber_2">[phone]</td> [facility] ([facility]) benztropine mesylate 1 MG Oral Tablet benztropine 05/23/2021 12:00 :00 AM EDT 1 mg by mouth completed <td ID="Me dicationRxNorm_3">513590</td><td ID="MedicationMedication_3">benztropine</td><td ID="MedicationRoute_3">by mouth</td><td ID="MedicationRouteConcept_3">S86503</td><td ID="MedicationStartDate_3">05/23/2021</td><td ID="MedicationStopDate_3">09/30/2021</td><td ID="MedicationDosageFrequency_3">at bedtime</td><td ID="MedicationDuration_3">30</td><td ID="MedicationFormulaStrength_3">1 mg</td><td ID="MedicationDosageForm_3">tablet</td><td ID="MedicationDosageFormCode_3"></td><td ID="MedicationDosageDescription_3"></td><td ID="MedicationMedicationId_3">[id number]</td><td ID="MedicationAccount_3">[id number]</td><td ID="MedicationNpid_3">[id number]</td><td ID="MedicationAuthorFirstName_3">Anselmo</td><td ID="MedicationAuthorLastName_3">Amilcar</td><td ID="MedicationTaxonomyCode_3">[id number]</td><td ID="MedicationTaxonomyDesc_3">Nurse Practitioner</td><td ID="MedicationPhoneNumber_3">[phone]</td> [facility] ([facility]) 1.5 ML paliperidone palmitate 156 MG/ML Prefilled Syri nge [Invega] Invega Sustenna 04/16/2021 12:00:00 AM EDT 234 mg/1.5 compl eted <td ID="MedicationRxNorm_1">059410</td><td ID="MedicationMedication_1">Invega Sustenna</td><td ID="MedicationRoute_1"></td><td ID="MedicationRouteConcept_1"></td><td ID="MedicationStartDate_1">04/16/2021</td><td ID="MedicationStopDate_1"></td><td ID="MedicationDosageFrequency_1"></td><td ID="MedicationDuration_1"></td><td ID="MedicationFormulaStrength_1">234 mg/1.5 mL</td><td ID="MedicationDosageForm_1">syringe</td><td ID="MedicationDosageFormCode_1"></td><td ID="MedicationDosageDescription_1"> </td><td ID="MedicationMedicationId_1">[id number]</td><td ID="MedicationAccount_1">[id number]</td><td ID="MedicationNpid_1">[id number]</td><td ID="MedicationAuthorFirstName_1">Anselmo</td><td ID="MedicationAuthorLastName_1">Amilcar</td><td ID="MedicationTaxonomyCode_1">[id number]</td><td ID="MedicationTaxonomyDesc_1">Nurse Practitioner</td><td ID="MedicationPhoneNumber_1">[phone]</td> [facility] ([facility]) 2.625 ML paliperidone palmitate 312 MG/ML Prefilled Sy ringe [Invega] Invega Socorroza 04/03/2021 12:00:00 AM EDT 819 mg/2.625 compl eted <td ID="MedicationRxNorm_3">[id number]</td><td ID="MedicationMedication_3">Invega Trinza</td><td ID="MedicationRoute_3">intramuscularly</td><td ID="MedicationRouteConcept_3"></td><td ID="MedicationStartDate_3">04/03/2021</td><td ID="MedicationStopDate_3">07/02/2021</td><td ID="MedicationDosageFrequency_3">every three months</td><td ID="MedicationDuration_3">90</td><td ID="MedicationFormulaStrength_3">819 mg/2.625 mL</td><td ID="MedicationDosageForm_3">syringe</td><td ID="MedicationDosageFormCode_3"></td><td ID="MedicationDosageDescription_3"></td><td ID="MedicationMedicationId_3">[id number]</td><td ID="MedicationAccount_3">[id number]</td><td ID="MedicationNpid_3">[id number]</td><td ID="MedicationAuthorFirstName_3">Anselmo</td><td ID="MedicationAuthorLastName_3">Amilcar</td><td ID="MedicationTaxonomyCode_3">[id number]</td><td ID="MedicationTaxonomyDesc_3"> Nurse Practitioner</td><td ID="MedicationPhoneNumber_3">[phone]</td> [facility] ([facility]) 2.625 ML paliperidone palmitate 312 MG/ML Prefilled Sy ringe [Invega] Invega Socorroza 04/03/2021 12:00:00 AM EDT 819 mg/2.625 compl eted <td ID="MedicationRxNorm_4">3568476</td><td ID="MedicationMedication_4">Invega Trinza</td><td ID="MedicationRoute_4">intramuscularly</td><td ID="MedicationRouteConcept_4"></td><td ID="MedicationStartDate_4">04/03/2021</td><td ID="MedicationStopDate_4">07/02/2021</td><td ID="MedicationDosageFrequency_4">every three months</td><td ID="MedicationDuration_4">90</td><td ID="MedicationFormulaStrength_4">819 mg/2.625 mL</td><td ID="MedicationDosageForm_4">syringe</td><td ID="MedicationDosageFormCode_4"></td><td ID="MedicationDosageDescription_4"></td><td ID="MedicationMedicationId_4">[id number]</td><td ID="MedicationAccount_4">[id number]</td><td ID="MedicationNpid_4">[id number]</td><td ID="MedicationAuthorFirstName_4">Anslemo</td><td ID="MedicationAuthorLastName_4">Amilcar</td><td ID="MedicationTaxonomyCode_4">[id number]</td><td ID="MedicationTaxonomyDesc_4"> Nurse Practitioner</td><td ID="MedicationPhoneNumber_4">[phone]</td> [facility] ([facility]) haloperidol decanoate haloperidol decanoate 04/03/2021 12:00:00 AM EDT 100 mg/mL completed <td ID="Me dicationRxNorm_2">[id number]</td><td ID="MedicationMedication_2">haloperidol decanoate</td><td ID="MedicationRoute_2">intramuscularly</td><td ID="MedicationRouteConcept_2"> </td><td ID="MedicationStartDate_2">04/03/2021</td><td ID="MedicationStopDate_2">04/03/2021</td><td ID="MedicationDosageFrequency_2">every four weeks</td><td ID="MedicationDuration_2">28</td><td ID="MedicationFormulaStrength_2">100 mg/mL</td><td ID="MedicationDosageForm_2">solution</td><td ID="MedicationDosageFormCode_2"></td><td ID="MedicationDosageDescription_2"></td><td ID="MedicationMedicationId_2">[id number]</td><td ID="MedicationAccount_2">[id number]</td><td ID="MedicationNpid_2">[id number]</td><td ID="MedicationAuthorFirstName_2">Anselmo</td><td ID="MedicationAuthorLastName_2">Amilcar</td><td ID="MedicationTaxonomyCode_2">[id number]</td><td ID="MedicationTaxonomyDesc_2"> Nurse Practitioner</td><td ID="MedicationPhoneNumber_2">[phone]</td> [facility] ([facility]) benztropine mesylate 1 MG Oral Tablet benztropine 04/03/2021 12:00 :00 AM EDT 1 mg by mouth completed <td ID="Me dicationRxNorm_2">349696</td><td ID="MedicationMedication_2">benztropine</td><td ID="MedicationRoute_2">by mouth</td><td ID="MedicationRouteConcept_2">P79210</td><td ID="MedicationStartDate_2">04/03/2021</td><td ID="MedicationStopDate_2">05/03/2021</td><td ID="MedicationDosageFrequency_2">at bedtime</td><td ID="MedicationDuration_2">30</td><td ID="MedicationFormulaStrength_2">1 mg</td><td ID="MedicationDosageForm_2">tablet</td><td ID="MedicationDosageFormCode_2"></td><td ID="MedicationDosageDescription_2"></td><td ID="MedicationMedicationId_2">[id number]</td><td ID="MedicationAccount_2">[id number]</td><td ID="MedicationNpid_2">[id number]</td><td ID="MedicationAuthorFirstName_2">Anselmo</td><td ID="MedicationAuthorLastName_2">Amilcar</td><td ID="MedicationTaxonomyCode_2">[id number]</td><td ID="MedicationTaxonomyDesc_2">Nurse Practitioner</td><td ID="MedicationPhoneNumber_2">[phone]</td> [facility] ([facility]) olanzapine 5 MG Oral Tablet [Zyprexa] Zyprexa 04/03/2021 12:00:00 AM EDT 5 mg by mouth completed <td ID="Medica tionRxNorm_1">004713</td><td ID="MedicationMedication_1">Zyprexa</td><td ID="MedicationRoute_1">by mouth</td><td ID="MedicationRouteConcept_1">Y91366</td><td ID="MedicationStartDate_1">04/03/2021</td><td ID="MedicationStopDate_1">05/03/2021</td><td ID="MedicationDosageFrequency_1">at bedtime</td><td ID="MedicationDuration_1">30</td><td ID="MedicationFormulaStrength_1">5 mg</td><td ID="MedicationDosageForm_1">tablet</td><td ID="MedicationDosageFormCode_1"></td><td ID="MedicationDosageDescription_1"></td><td ID="MedicationMedicationId_1">[id number]</td><td ID="MedicationAccount_1">[id number]</td><td ID="MedicationNpid_1">[id number]</td><td ID="MedicationAuthorFirstName_1">Anselmo</td><td ID="MedicationAuthorLastName_1">Amilcar</td><td ID="MedicationTaxonomyCode_1">[id number]</td><td ID="MedicationTaxonomyDesc_1">Nurse Practitioner</td><td ID="MedicationPhoneNumber_1">[phone]</td> [facility] [facility]) 2.625 ML paliperidone palmitate 312 MG/ML Prefilled Sy ringe [Invega] Invsuleiman Roth 04/03/2021 12:00:00 AM EDT 819 mg/2.625 compl eted <td ID="MedicationRxNorm_5">[id number]</td><td ID="MedicationMedication_5">Invega Trinza</td><td ID="MedicationRoute_5">intramuscularly</td><td ID="MedicationRouteConcept_5"></td><td ID="MedicationStartDate_5">04/03/2021</td><td ID="MedicationStopDate_5">07/02/2021</td><td ID="MedicationDosageFrequency_5">every three months</td><td ID="MedicationDuration_5">90</td><td ID="MedicationFormulaStrength_5">819 mg/2.625 mL</td><td ID="MedicationDosageForm_5">syringe</td><td ID="MedicationDosageFormCode_5"></td><td ID="MedicationDosageDescription_5"></td><td ID="MedicationMedicationId_5">[id number]</td><td ID="MedicationAccount_5">[id number]</td><td ID="MedicationNpid_5">[id number]</td><td ID="MedicationAuthorFirstName_5">Anselmo</td><td ID="MedicationAuthorLastName_5">Amilcar</td><td ID="MedicationTaxonomyCode_5">[id number]</td><td ID="MedicationTaxonomyDesc_5"> Nurse Practitioner</td><td ID="MedicationPhoneNumber_5">[phone]</td> [facility] ([facility]) benztropine mesylate 1 MG Oral Tablet benztropine 04/03/2021 12:00 :00 AM EDT 1 mg by mouth completed <td ID="Me dicationRxNorm_4">946075</td><td ID="MedicationMedication_4">benztropine</td><td ID="MedicationRoute_4">by mouth</td><td ID="MedicationRouteConcept_4">P64605</td><td ID="MedicationStartDate_4">04/03/2021</td><td ID="MedicationStopDate_4">05/03/2021</td><td ID="MedicationDosageFrequency_4">at bedtime</td><td ID="MedicationDuration_4">30</td><td ID="MedicationFormulaStrength_4">1 mg</td><td ID="MedicationDosageForm_4">tablet</td><td ID="MedicationDosageFormCode_4"></td><td ID="MedicationDosageDescription_4"></td><td ID="MedicationMedicationId_4">[id number]</td><td ID="MedicationAccount_4">[id number]</td><td ID="MedicationNpid_4">[id number]</td><td ID="MedicationAuthorFirstName_4">Anselmo</td><td ID="MedicationAuthorLastName_4">Amilcar</td><td ID="MedicationTaxonomyCode_4">[id number]</td><td ID="MedicationTaxonomyDesc_4">Nurse Practitioner</td><td ID="MedicationPhoneNumber_4">[phone]</td> [facility] ([facility]) olanzapine 5 MG Oral Tablet [Zyprexa] Zyprexa 04/03/2021 12:00:00 AM EDT 5 mg by mouth completed <td ID="Medica tionRxNorm_3">605381</td><td ID="MedicationMedication_3">Zyprexa</td><td ID="MedicationRoute_3">by mouth</td><td ID="MedicationRouteConcept_3">E39392</td><td ID="MedicationStartDate_3">04/03/2021</td><td ID="MedicationStopDate_3">05/03/2021</td><td ID="MedicationDosageFrequency_3">at bedtime</td><td ID="MedicationDuration_3">30</td><td ID="MedicationFormulaStrength_3">5 mg</td><td ID="MedicationDosageForm_3">tablet</td><td ID="MedicationDosageFormCode_3"></td><td ID="MedicationDosageDescription_3"></td><td ID="MedicationMedicationId_3">[id number]</td><td ID="MedicationAccount_3">[id number]</td><td ID="MedicationNpid_3">[id number]</td><td ID="MedicationAuthorFirstName_3">Anselmo</td><td ID="MedicationAuthorLastName_3">Amilcar</td><td ID="MedicationTaxonomyCode_3">[id number]</td><td ID="MedicationTaxonomyDesc_3">Nurse Practitioner</td><td ID="MedicationPhoneNumber_3">[phone]</td> [facility] ([facility]) 2.625 ML paliperidone palmitate 312 MG/ML Prefilled Sy ringe [Invega] Invega Trinza 04/03/2021 12:00:00 AM EDT 819 mg/2.625 compl eted <td ID="MedicationRxNorm_2">[id number]</td><td ID="MedicationMedication_2">Invega Trinza</td><td ID="MedicationRoute_2">intramuscularly</td><td ID="MedicationRouteConcept_2"></td><td ID="MedicationStartDate_2">04/03/2021</td><td ID="MedicationStopDate_2">07/02/2021</td><td ID="MedicationDosageFrequency_2">every three months</td><td ID="MedicationDuration_2">90</td><td ID="MedicationFormulaStrength_2">819 mg/2.625 mL</td><td ID="MedicationDosageForm_2">syringe</td><td ID="MedicationDosageFormCode_2"></td><td ID="MedicationDosageDescription_2"></td><td ID="MedicationMedicationId_2">[id number]</td><td ID="MedicationAccount_2">[id number]</td><td ID="MedicationNpid_2">[id number]</td><td ID="MedicationAuthorFirstName_2">Anselmo</td><td ID="MedicationAuthorLastName_2">Amilcar</td><td ID="MedicationTaxonomyCode_2">[id number]</td><td ID="MedicationTaxonomyDesc_2"> Nurse Practitioner</td><td ID="MedicationPhoneNumber_2">[phone]</td> [facility] ([facility]) haloperidol decanoate haloperidol decanoate 10/04/2020 12:00:00 AM EST 100 mg/mL completed <td ID="Me dicationRxNorm_1">[id number]</td><td ID="MedicationMedication_1">haloperidol decanoate</td><td ID="MedicationRoute_1">intramuscularly</td><td ID="MedicationRouteConcept_1"> </td><td ID="MedicationStartDate_1">10/04/2020</td><td ID="MedicationStopDate_1">04/03/2021</td><td ID="MedicationDosageFrequency_1">as directed</td><td ID="MedicationDuration_1">21</td><td ID="MedicationFormulaStrength_1">100 mg/mL</td><td ID="MedicationDosageForm_1">solution</td><td ID="MedicationDosageFormCode_1"></td><td ID="MedicationDosageDescription_1"></td><td ID="MedicationMedicationId_1">[id number]</td><td ID="MedicationAccount_1">[id number]</td><td ID="MedicationNpid_1">[id number]</td><td ID="MedicationAuthorFirstName_1">Victorino</td><td ID="MedicationAuthorLastName_1">Escobar</td><td ID="MedicationTaxonomyCode_1">[id number]</td><td ID="MedicationTaxonomyDesc_1"> Psychiatry</td><td ID="MedicationPhoneNumber_1">[phone]</td> [facility] ([facility] 100 mg/mL 10/02/2020 12:00:00 AM [...] 50 mg by mouth completed <td ID="Medic ationRxNorm_5">246302</td><td ID="MedicationMedication_5">trazodone</td><td ID="MedicationRoute_5">by mouth</td><td ID="MedicationRouteConcept_5">S33032</td><td ID="MedicationStartDate_5">09/12/2020</td><td ID="MedicationStopDate_5">10/12/2020</td><td ID="MedicationDosageFrequency_5">every night</td><td ID="MedicationDuration_5">30</td><td ID="MedicationFormulaStrength_5">50 mg</td><td ID="MedicationDosageForm_5">tablet</td><td ID="MedicationDosageFormCode_5"></td><td ID="MedicationDosageDescription_5"></td><td ID="MedicationMedicationId_5">[id number]</td><td ID="MedicationAccount_5">[id number]</td><td ID="MedicationNpid_5">[id number]</td><td ID="MedicationAuthorFirstName_5">Kalli</td><td ID="MedicationAuthorLastName_5">Egorho</td><td ID="MedicationTaxonomyCode_5">[id number]</td><td ID="MedicationTaxonomyDesc_5">Nurse Practitioner</td><td ID="MedicationPhoneNumber_5">[phone]</td> [facility] ([facility]) Trazodone Hydrochloride 50 MG Oral Tablet trazodone 2019 12:00:00 AM EST 50 mg by mouth completed <td ID="Medic ationRxNorm_1">858757</td><td ID="MedicationMedication_1">trazodone</td><td ID="MedicationRoute_1">by mouth</td><td ID="MedicationRouteConcept_1">C41084</td><td ID="MedicationStartDate_1">09/12/2020</td><td ID="MedicationStopDate_1">10/12/2020</td><td ID="MedicationDosageFrequency_1">every night</td><td ID="MedicationDuration_1">30</td><td ID="MedicationFormulaStrength_1">50 mg</td><td ID="MedicationDosageForm_1">tablet</td><td ID="MedicationDosageFormCode_1"></td><td ID="MedicationDosageDescription_1"></td><td ID="MedicationMedicationId_1">[id number]</td><td ID="MedicationAccount_1">[id number]</td><td ID="MedicationNpid_1">[id number]</td><td ID="MedicationAuthorFirstName_1">Kalli</td><td ID="MedicationAuthorLastName_1">Egorho</td><td ID="MedicationTaxonomyCode_1">[id number]</td><td ID="MedicationTaxonomyDesc_1">Nurse Practitioner</td><td ID="MedicationPhoneNumber_1">[phone]</td> [facility] ([facility]) Haldol Decanoate Haldol Decanoate 09/12/2020 12:00:00 AM EST 100 mg/mL completed <td ID="MedicationRx Norm_4">[id number]</td><td ID="MedicationMedication_4">Haldol Decanoate</td><td ID="MedicationRoute_4">intramuscularly</td><td ID="MedicationRouteConcept_4"></td><td ID="MedicationStartDate_4">09/12/2020</td><td ID="MedicationStopDate_4">09/15/2020</td><td ID="MedicationDosageFrequency_4">as directed</td><td ID="MedicationDuration_4">1</td><td ID="MedicationFormulaStrength_4">100 mg/mL</td><td ID="MedicationDosageForm_4">solution</td><td ID="MedicationDosageFormCode_4"></td><td ID="MedicationDosageDescription_4"></td><td ID="MedicationMedicationId_4">[id number]</td><td ID="MedicationAccount_4">[id number]</td><td ID="MedicationNpid_4">[id number]</td><td ID="MedicationAuthorFirstName_4">Kalli</td><td ID="MedicationAuthorLastName_4">Egorho</td><td ID="MedicationTaxonomyCode_4">[id number]</td><td ID="MedicationTaxonomyDesc_4">Nurse Practitioner</td><td ID="MedicationPhoneNumber_4">[phone]</td> [facility] ([facility]) quetiapine 300 MG Oral Tablet quetiapine 01/06/2020 12:00:00 AM EST 300 mg completed <td ID="Medicat ionRxNorm_4">957424</td><td ID="MedicationMedication_4">quetiapine</td><td ID="MedicationRoute_4"></td><td ID="MedicationRouteConcept_4"></td><td ID="MedicationStartDate_4">01/06/2020</td><td ID="MedicationStopDate_4">01/05/2021</td><td ID="MedicationDosageFrequency_4">at bedtime</td><td ID="MedicationDuration_4">30</td><td ID="MedicationFormulaStrength_4">300 mg</td><td ID="MedicationDosageForm_4">tablet</td><td ID="MedicationDosageFormCode_4"></td><td ID="MedicationDosageDescription_4"></td><td ID="MedicationMedicationId_4">08130</td><td ID="MedicationAccount_4">[id number]</td><td ID="MedicationNpid_4">[id number]</td><td ID="MedicationAuthorFirstName_4">Dane</td><td ID="MedicationAuthorLastName_4">[place]</td><td ID="MedicationTaxonomyCode_4">[id number]</td><td ID="MedicationTaxonomyDesc_4">Psychiatric/Mental Health</td><td ID="MedicationPhoneNumber_4">[phone]</td> [facility] ([facility]) quetiapine 300 MG Oral Tablet quetiapine 01/06/2020 12:00:00 AM EST 300 mg completed <td ID="Medicat ionRxNorm_1">732725</td><td ID="MedicationMedication_1">quetiapine</td><td ID="MedicationRoute_1"></td><td ID="MedicationRouteConcept_1"></td><td ID="MedicationStartDate_1">01/06/2020</td><td ID="MedicationStopDate_1">01/05/2021</td><td ID="MedicationDosageFrequency_1">at bedtime</td><td ID="MedicationDuration_1">30</td><td ID="MedicationFormulaStrength_1">300 mg</td><td ID="MedicationDosageForm_1">tablet</td><td ID="MedicationDosageFormCode_1"></td><td ID="MedicationDosageDescription_1"></td><td ID="MedicationMedicationId_1">02873</td><td ID="MedicationAccount_1">[id number]</td><td ID="MedicationNpid_1">[id number]</td><td ID="MedicationAuthorFirstName_1">Dane</td><td ID="MedicationAuthorLastName_1">Lioda</td><td ID="MedicationTaxonomyCode_1">[id number]</td><td ID="MedicationTaxonomyDesc_1">Psychiatric/Mental Health</td><td ID="MedicationPhoneNumber_1">[phone]</td> [facility] ([facility]) quetiapine 300 MG Oral Tablet quetiapine 01/06/2020 12:00:00 AM EST 300 mg completed <td ID="Medicat ionRxNorm_5">989749</td><td ID="MedicationMedication_5">quetiapine</td><td ID="MedicationRoute_5"></td><td ID="MedicationRouteConcept_5"></td><td ID="MedicationStartDate_5">01/06/2020</td><td ID="MedicationStopDate_5">01/05/2021</td><td ID="MedicationDosageFrequency_5">at bedtime</td><td ID="MedicationDuration_5">30</td><td ID="MedicationFormulaStrength_5">300 mg</td><td ID="MedicationDosageForm_5">tablet</td><td ID="MedicationDosageFormCode_5"></td><td ID="MedicationDosageDescription_5"></td><td ID="MedicationMedicationId_5">[id number]</td><td ID="MedicationAccount_5">[id number]</td><td ID="MedicationNpid_5">[id number]</td><td ID="MedicationAuthorFirstName_5">Dane</td><td ID="MedicationAuthorLastName_5">Loida</td><td ID="MedicationTaxonomyCode_5">[id number]</td><td ID="MedicationTaxonomyDesc_5">Psychiatric/Mental Health</td><td ID="MedicationPhoneNumber_5">[phone]</td> [facility] ([facility]) Aristada Aristada 12/20/2019 12:00:00 AM EST mg/3.9 completed <td ID="MedicationRxNorm_3">[id number]</td><td ID="MedicationMedication_3">Aristada</td><td ID="MedicationRoute_3">intramuscularly</td><td ID="MedicationRouteConcept_3"></td><td ID="MedicationStartDate_3">12/20/2019</td><td ID="MedicationStopDate_3">09/12/2020</td><td ID="MedicationDosageFrequency_3"></td><td ID="MedicationDuration_3"></td><td ID="MedicationFormulaStrength_3">1,064 mg/3.9 mL</td><td ID="MedicationDosageForm_3">suspension,extended rel syring</td><td ID="MedicationDosageFormCode_3"></td><td ID="MedicationDosageDescription_3">as directed</td><td ID="MedicationMedicationId_3">[id number]</td><td ID="MedicationAccount_3">[id number]</td><td ID="MedicationNpid_3">[id number]</td><td ID="MedicationAuthorFirstName_3">Dane</td><td ID="MedicationAuthorLastName_3">Loida</td><td ID="MedicationTaxonomyCode_3">[id number]</td><td ID="MedicationTaxonomyDesc_3"> Psychiatric/Mental Health</td><td ID="MedicationPhoneNumber_3">[phone]</td> [facility] ([facility]) Trazodone Hydrochloride 50 MG Oral Tablet trazodone 2018 12:00:00 AM EDT 50 mg by mouth completed <td ID="Medic ationRxNorm_2">479555</td><td ID="MedicationMedication_2">trazodone</td><td ID="MedicationRoute_2">by mouth</td><td ID="MedicationRouteConcept_2">U23273</td><td ID="MedicationStartDate_2">06/10/2019</td><td ID="MedicationStopDate_2">09/12/2020</td><td ID="MedicationDosageFrequency_2">at bedtime</td><td ID="MedicationDuration_2"></td><td ID="MedicationFormulaStrength_2">50 mg</td><td ID="MedicationDosageForm_2">tablet</td><td ID="MedicationDosageFormCode_2"></td><td ID="MedicationDosageDescription_2"></td><td ID="MedicationMedicationId_2">[id number]</td><td ID="MedicationAccount_2">[id number]</td><td ID="MedicationNpid_2">[id number]</td><td ID="MedicationAuthorFirstName_2">Dane</td><td ID="MedicationAuthorLastName_2">[place]</td><td ID="MedicationTaxonomyCode_2">[id number]</td><td ID="MedicationTaxonomyDesc_2">Psychiatric/Mental Health</td><td ID="MedicationPhoneNumber_2">[phone]</td> [facility] ([facility]) Amantadine Hydrochloride 100 MG Oral Capsule amantadine HCl 07/30/2017 12:00:00 AM EDT 100 mg by mouth completed <td ID="MedicationRxNorm_1">576867</td><td ID="MedicationMedication_1">amantadine HCl</td><td ID="MedicationRoute_1">by mouth</td><td ID="MedicationRouteConcept_1">E36271</td><td ID="MedicationStartDate_1">07/30/2017</td><td ID="MedicationStopDate_1">09/12/2020</td><td ID="MedicationDosageFrequency_1">every morning</td><td ID="MedicationDuration_1"></td><td ID="MedicationFormulaStrength_1">100 mg</td><td ID="MedicationDosageForm_1">capsule</td><td ID="MedicationDosageFormCode_1"></td><td ID="MedicationDosageDescription_1"></td><td ID="MedicationMedicationId_1">[id number]</td><td ID="MedicationAccount_1">[id number]</td><td ID="MedicationNpid_1">[id number]</td><td ID="MedicationAuthorFirstName_1">Dane</td><td ID="MedicationAuthorLastName_1">Loida</td><td ID="MedicationTaxonomyCode_1">[id number]</td><td ID="MedicationTaxonomyDesc_1">Psychiatric/Mental Health</td><td ID="MedicationPhoneNumber_1">[phone]</td> [facility] ([facility]) Insurance Providers Payer name Policy type / Coverage type Policy ID Covered republican ID Covered republican's relationship to shafer Policy Shafer Plan Information Medicaid S [id number] S [id number] Managed Care - Community Plan [facility] P [id number] S [id number] Medicaid S [id number] S [id number] UH I [id number] Self [id number] UHC I [id number] Self [id number] UH I [id number] Self [id number] Managed Care - UHC Community Plan P [id number] S [id number] Medicaid S [id number] S [id number] Managed Care - UHC Community Plan P [id number] S [id number] [facility] [id number] SP [id number] [facility] MAN CRE [id number] SP [id number] [facility] [id number] SP [id number] SELF PAY [facility] OFFICE OF MENTAL HEALTH UNAVAILABLE S UNAVAILABLE MEDICAID [id number] S [id number] [facility] OFFICE OF MENTAL HEALTH [id number] S [id number] UNHC COMMUNITY PLAN MCDHMO [id number] SP [id number] [facility] OFFICE OF [facility]ENTAL HEALTH [id number] S [id number] [facility] [id number] SP [id number] SELF PAY ONLY [id number] SP [id number] [facility] [id number] SP [id number] SELF PAY SP [facility] O [id number] S [id number] [facility] [id number] SP [id number] Self Pay P [facility]ILABLE [facility]) O [id number] S [id number] [facility] [id number] SP [id number] MEDICAID [id number] SP [id number] [facility] COMMUNITY PLAN [facility] [id number] SP [id number] MEDICAID [id number] SP [id number] Problems, Conditions, and Diagnoses Code Display Name Description Problem Type Effective Dates Data Source(s) F11.10 Opioid abuse, uncomplicated F11.10 - Opioid abus e, uncomplicated Diagnosis 02/27/2021 08:12:00 PM EDT [facility] 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, uncomplicated F16.10 - Hallucinogen abuse, uncomplicated Diagnosis 02/27/2021 08:12:00 PM EDT [facility] F25.9 Schizoaffective disorder, unspecified F2 5.9 - Schizoaffective disorder, unspecified Diagnosis 02/27/2021 08:12:00 PM EDT [facility] Z13.9 Encounter for screening, unspecified Z13 .9 - Encounter for screening, unspecified Diagnosis 02/27/2021 08:12:00 [facility], hallucinations, substance abuse schizophrenia, hallucinations, substance abuse Diagnosis 09/22/2020 02:27:00 PM [facility] F15.20 Other stimulant dependence, uncomplicate d Stimulant Use Disorder, Moderate: Amphetamine-type substance Condition 09/02/2021 12:00:00 AM EDT [facility] ([facility]) F10.20 Alcohol dependence, uncomplicated Alcohol Use Disorder , Severe Condition 09/02/2021 12:00:00 AM EDT [facility] ([facility]) F17.200 Nicotine dependence, unspecified, uncomp licated Tobacco Use Disorder, Moderate Condition 09/02/2021 12:00:00 AM EDT [facility] ([facility]) F12.20 Cannabis dependence, uncomplicated Cannabis Use Disorder, Moderate Condition 09/02/2021 12:00:00 AM EDT [facility] ([facility]) F20.9 Schizophrenia, unspecified Schizophrenia Condition 09/02/2021 12:00:00 AM EDT [facility] ([facility]) Surgeries/Procedures Procedure Description Date Indications Data Source(s) THERAPEUTIC PROPHYLACTIC/DX INJECTION SUBQ/IM 09/02/2021 12:00:00 AM EDT - 09/02/2021 12:00:00 AM EDT [facility] ([facility]) THERAPEUTIC PROPHYLACTIC/DX INJECTION SUBQ/IM 09/02/20 12:00:00 AM EDT [facility] ([facility]) Comprehensive medication services, per 15 minutes 07/29/2021 12:00:00 AM EDT - 07/29/2021 12:00:00 AM EDT [facility] ([facility]) Comprehensive medication services, per 15 minutes 07/29/2021 12:00:00 AM EDT [facility] ([facility]) Comprehensive medication services, per 15 minutes 06/24/2021 12:00:00 AM EDT - 06/24/2021 12:00:00 AM EDT [facility] ([facility]) Comprehensive medication services, per 15 minutes 06/24/2021 12:00:00 AM EDT [facility] ([facility]) THERAPEUTIC PROPHYLACTIC/DX INJECTION SUBQ/IM 05/27/2021 12:00:00 AM EDT - 05/27/2021 12:00:00 AM EDT [facility] ([facility]) THERAPEUTIC PROPHYLACTIC/DX INJECTION SUBQ/IM 05/27/20 12:00:00 AM EDT [facility] ([facility]) Brief Individual Psychotherapy - 30 min 05/13/2021 12:00:00 AM EDT - 05/13/2021 12:00:00 AM EDT [facility] ([facility]) Brief Individual Psychotherapy - 30 min 05/13/2021 12: 00:00 AM EDT [facility] ([facility]) Comprehensive medication services, per 15 minutes 04/04/2021 12:00:00 AM EDT - 04/04/2021 12:00:00 AM EDT [facility] ([facility]) Comprehensive medication services, per 15 minutes 04/03/2021 12:00:00 AM EDT [facility] ([facility]) OFFICE OUTPATIENT VISIT 15 MINUTES 04/03 12:00:00 AM EDT - 04/03/2021 12:00:00 AM EDT [facility] ([facility]) Psychotherapy ADD ON - 30 Minutes 04/03/2021 12:00:00 AM EDT [facility] ([facility]) OFFICE OUTPATIENT VISIT 15 MINUTES 04/03/2021 12:00:00 AM EDT [facility] ([facility]) OFFICE OUTPATIENT VISIT 15 MINUTES 03/27 12:00:00 AM EDT - 03/27/2021 12:00:00 AM EDT [facility] ([facility]) OFFICE OUTPATIENT VISIT 15 MINUTES 03/27/2021 12:00:00 AM EDT [facility] ([facility]) OFFICE OUTPATIENT VISIT 15 MINUTES 03/19 12:00:00 AM EDT - 03/19/2021 12:00:00 AM EDT [facility] ([facility]) OFFICE OUTPATIENT VISIT 15 MINUTES 03/19/2021 12:00:00 AM EDT [facility] ([facility]) OFFICE OUTPATIENT VISIT 15 MINUTES 02/12 12:00:00 AM EDT - 02/12/2021 12:00:00 AM EDT [facility] ([facility]) OFFICE OUTPATIENT VISIT 15 MINUTES 02/12/2021 12:00:00 AM EDT [facility] ([facility]) OFFICE OUTPATIENT VISIT 15 MINUTES 02/07 12:00:00 AM EDT - 02/07/2021 12:00:00 AM EDT [facility] ([facility]) OFFICE OUTPATIENT VISIT 15 MINUTES 02/07/2021 12:00:00 AM EDT [facility] ([facility]) Brief Individual Psychotherapy - 30 min 02/01/2021 12:00:00 AM EDT - 02/01/2021 12:00:00 AM EDT [facility] ([facility]) Brief Individual Psychotherapy - 30 min 02/01/2021 12: 00:00 AM EDT [facility] ([facility]) OFFICE OUTPATIENT VISIT 15 MINUTES 01/23 12:00:00 AM EDT - 01/23/2021 12:00:00 AM EDT [facility] ([facility]) OFFICE OUTPATIENT VISIT 15 MINUTES 01/23/2021 12:00:00 AM EDT [facility] ([facility]) THERAPEUTIC PROPHYLACTIC/DX INJECTION SUBQ/IM 01/23/2021 12:00:00 AM EDT - 01/23/2021 12:00:00 AM EDT [facility] ([facility]) THERAPEUTIC PROPHYLACTIC/DX INJECTION SUBQ/IM 01/24/20 12:00:00 AM EDT [facility] ([facility]) Comprehensive medication services, per 15 minutes 01/18/2021 12:00:00 AM EDT - 01/18/2021 12:00:00 AM EDT [facility] ([facility]) Comprehensive medication services, per 15 minutes 01/18/2021 12:00:00 AM EDT [facility] ([facility]) OFFICE OUTPATIENT VISIT 15 MINUTES 01/17 12:00:00 AM EDT - 01/17/2021 12:00:00 AM EDT [facility] ([facility]) OFFICE OUTPATIENT VISIT 15 MINUTES 01/17/2021 12:00:00 AM EDT [facility] ([facility]) MHC Telemed E/M Lvl 3--Est pt 01/01/2021 12:00:00 AM EST - 01/01/2021 12:00:00 AM EST [facility] ([facility]) MHC Telemed E/M Lvl 3--Est pt 01/01/2021 12:00:[address] [facility] ([facility]) THERAPEUTIC PROPHYLACTIC/DX INJECTION SUBQ/IM 12/28/2020 12:00:00 AM EST - 12/28/2020 12:00:00 AM EST [facility] ([facility]) THERAPEUTIC PROPHYLACTIC/DX INJECTION SUBQ/IM 12/28/19 21 12:00:00 AM EST [facility] ([facility]) MHC Telemed E/M Lvl 3--Est pt 12/20/2020 12:00:00 AM EST - 12/20/2020 12:00:00 AM EST [facility] ([facility]) MHC Telemed E/M Lvl 3--Est pt 12/20/2020 12:00:[address] [facility] ([facility]) MHC Telemed E/M Lvl 3--Est pt 12/06/2020 12:00:00 AM EST - 12/06/2020 12:00:00 AM EST [facility] ([facility]) MHC Telemed E/M Lvl 3--Est pt 12/06/2020 12:00:[address] [facility] ([facility]) Comprehensive medication services, per 15 minutes 11/15/2020 12:00:00 AM EST - 11/15/2020 12:00:00 AM EST [facility] ([facility]) Comprehensive medication services, per 15 minutes 11/15/2020 12:00:00 AM EST [facility] ([facility]) OFFICE OUTPATIENT VISIT 15 MINUTES 11/15 12:00:00 AM EST - 11/15/2020 12:00:00 AM EST [facility] ([facility]) OFFICE OUTPATIENT VISIT 15 MINUTES 11/15/2020 12:00:00 AM EST [facility] ([facility]) THERAPEUTIC PROPHYLACTIC/DX INJECTION SUBQ/IM 10/18/2020 12:00:00 AM EST - 10/18/2020 12:00:00 AM EST [facility] ([facility]) THERAPEUTIC PROPHYLACTIC/DX INJECTION SUBQ/IM 10/18/20 20 12:00:00 AM EST [facility] ([facility]) THERAPEUTIC PROPHYLACTIC/DX INJECTION SUBQ/IM 10/15/2020 12:00:00 AM EST - 10/15/2020 12:00:00 AM EST [facility] ([facility]) THERAPEUTIC PROPHYLACTIC/DX INJECTION SUBQ/IM 10/15/20 20 12:00:00 AM EST [facility] ([facility]) THERAPEUTIC PROPHYLACTIC/DX INJECTION SUBQ/IM 10/04/2020 12:00:00 AM EST - 10/04/2020 12:00:00 AM EST [facility] ([facility]) THERAPEUTIC PROPHYLACTIC/DX INJECTION SUBQ/IM 10/04/20 20 12:00:00 AM EST [facility] ([facility]) OFFICE OUTPATIENT VISIT 15 MINUTES 10/04 12:00:00 AM EST - 10/04/2020 12:00:00 AM EST [facility] ([facility]) OFFICE OUTPATIENT VISIT 15 MINUTES 10/04/2020 12:00:00 AM EST [facility] ([facility]) OFFICE OUTPATIENT VISIT 15 MINUTES 09/12 12:00:00 AM EST - 09/12/2020 12:00:00 AM EST [facility] ([facility]) OFFICE OUTPATIENT VISIT 15 MINUTES 09/12/2020 12:00:00 AM EST [facility] ([facility]) THERAPEUTIC PROPHYLACTIC/DX INJECTION SUBQ/IM 09/12/2020 12:00:00 AM EST - 09/12/2020 12:00:00 AM EST [facility] ([facility]) THERAPEUTIC PROPHYLACTIC/DX INJECTION SUBQ/IM 09/12/20 20 12:00:00 AM EST [facility] ([facility]) OFFICE OUTPATIENT VISIT 15 MINUTES 08/10 12:00:00 AM EDT - 08/10/2020 12:00:00 AM EDT [facility] ([facility]) OFFICE OUTPATIENT VISIT 15 MINUTES 08/10/2020 12:00:00 AM EDT [facility] ([facility]) THERAPEUTIC PROPHYLACTIC/DX INJECTION SUBQ/IM 07/13/2020 12:00:00 AM EDT - 07/13/2020 12:00:00 AM EDT [facility] ([facility]) THERAPEUTIC PROPHYLACTIC/DX INJECTION SUBQ/IM 07/13/20 20 12:00:00 AM EDT [facility] ([facility]) Results ID Date Data Source [id number] 07/19/2021 10:40:00 AM EDT [facility] Name Value Range Interpretation Code Description Data Michelle rce(s) Supporting Document(s) SARS coronavirus 2 RNA [Presence] in Res piratory specimen by OMI with probe detection NEGATIVE [facility] This lab was ordered by [facility] a nd reported by [facility]. ID Date Data Source [id number] 07/19/2021 09:50:00 AM EDT [facility] Name Value Range Interpretation Code Description Data Michelle rce(s) Supporting Document(s) SARS COVID ANTIGEN NEGATIVE [facility] This lab was ordered by [facility] a nd reported by [facility]. ID Date Data Source [id number] 06/04/2021 08:17:00 PM EDT [facility] Name Value Range Interpretation Code Description Data Michelle rce(s) Supporting Document(s) SARS coronavirus 2 RNA [Presence] in Res piratory specimen by OMI with probe detection NEGATIVE [facility] This lab was ordered by [facility] a nd reported by [facility]. ID Date Data Source [id number] 05/01/2021 01:57:00 PM EDT [facility] Name Value Range Interpretation Code Description Data Michelle rce(s) Supporting Document(s) SARS coronavirus 2 RNA [Presence] in Res piratory specimen by OMI with probe detection NEGATIVE [facility] This lab was ordered by [facility] a nd reported by [facility]. ID Date Data Source [id number] 04/19/2021 06:29:00 AM EDT [facility] Name Value Range Interpretation Code Description Data Michelle rce(s) Supporting Document(s) SARS coronavirus 2 RNA [Presence] in Res piratory specimen by OMI with probe detection NEGATIVE [facility] This lab was ordered by [facility] a nd reported by [facility]. ID Date Data Source [id number] 04/17/2021 05:50:00 PM EDT [facility] Name Value Range Interpretation Code Description Data Michelle rce(s) Supporting Document(s) SARS-CoV-2 (COVID-19) RNA [Presence] in Respiratory specimen by OMI with probe detection Not Detected [facility] This lab was ordered by [facility] and reported by [employer]. ID Date Data Source [id number] 02/28/2021 04:53:00 PM EDT [address] [address] HEALTH INFORMATION MANAGEMENT History and Physical Report : [id number] Signed Patient: Gabo Parra Acct:[id number] Unit: Low [id number] : 1980 Loc: [facility] Room/Bed: 820 Age/Sex: 40 / [...] charges for this visit?: Yes Inpt Consult [id number] Cons Level 1: Yes Signed By:Rambo Summers <<Signature on File>> Signed Date/Time: 02/28/211657 Co-Signer: Leonel Hubbard MD Co-Signed Date/Time: 02/28/211724 Initializing User: Rambo Summers NP 02/28/211652 52 52 Name Value Range Interpretation Code Description Data Michelle rce(s) Supporting Document(s) ID Date Data Source [id number] 02/28/2021 10:45:[address] [facility] [address] [place] [address] HEALTH INFORMATION MANAGEMENT [facility] Psychosocial Summary : [id number] Signed Patient: Gabo Parra Acct:[id number] Unit: M [id number] : 1980 Loc: [facility] Room/Bed: 820B Age/Sex: 40 / M ADM Date: 02/27/21 cc: General/History - Presenting Problem Presenting Problem: Social Summary/Discharge plan Presenting Problem Gabo is a40 yo AAM, extensive psych hx, also problems with substance abuse admitted on a transfer from [facility] ER brought in there by his CW as pt was feeling depressed, suicidal, also hallucinating and after abusing drugs History. tates was partially complaint with meds. Not able to name his psychiatrist in [place], not able to name the therapist. Gives h/o 5 to 6 inpt psych txs, last one few months ago, "I can't remember the place, they send me from [facility]. " Also, h'o inpt psych tx at [facility]. H/o self harm time, [...] you part of any alevism/spirtual community?: Yes (Restorationism ) - Current Living/Relationship History Current Living Arrangement: House Who Do You Live With?: Mother. OK to Return Home: Yes Weapons in household: No Currently in a Relationship?: No Ever Been ?: No Any Children?: 2 - Family History Where Were You Born/Raised[place] Who Was in Home?: Mother, Father How [...] Reducing Risk: Complies with Tx/Meds, Future Oriented, Pentecostalism Beliefs Mental Status Treatment - Mental Status [...] rce(s) Supporting Document(s) ID Date Data Source [id number] 02/27/2021 04:28:00 PM EDT [facility] Name Value Range Interpretation Code Description Data Michelle rce(s) Supporting Document(s) SARS coronavirus 2 RNA [Presence] in Res piratory specimen by OMI with probe detection NEGATIVE [facility] This lab was ordered by [facility] a nd reported by [facility]. ID Date Data Source [id number] 01/23/2021 01:03:00 AM EDT [facility] Name Value Range Interpretation Code Description Data Michelle rce(s) Supporting Document(s) SARS coronavirus 2 RNA [Presence] in Res piratory specimen by OMI with probe detection NEGATIVE [facility] This lab was ordered by [facility] a nd reported by [facility]. ID Date Data Source [id number] 10/17/2020 12:19:00 AM EST [facility] Name Value Range Interpretation Code Description Data Michelle rce(s) Supporting Document(s) SARS coronavirus 2 RNA [Presence] in Res piratory specimen by OMI with probe detection [facility] This lab was ordered by [facility] a nd reported by [facility]. Procedure Social History Code Duration Value Status Description Data Source(s ) Smoking 09/02/2021 12:00:00 AM EDT Unknown if ever smoked comp leted Unknown if ever smoked [facility] ([facility]) Smoking 07/29/2021 12:00:00 AM EDT Unknown if ever smoked comp leted Unknown if ever smoked [facility] ([facility]) Smoking 06/24/2021 12:00:00 AM EDT Unknown if ever smoked comp leted Unknown if ever smoked [facility] ([facility]) Smoking 05/27/2021 12:00:00 AM EDT Unknown if ever smoked comp leted Unknown if ever smoked [facility] ([facility]) Smoking 05/13/2021 12:00:00 AM EDT Unknown if ever smoked comp leted Unknown if ever smoked [facility] ([facility]) Smoking 04/04/2021 12:00:00 AM EDT Unknown if ever smoked comp leted Unknown if ever smoked [facility] ([facility]) Smoking 04/03/2021 12:00:00 AM EDT Unknown if ever smoked comp leted Unknown if ever smoked [facility] ([facility]) Smoking 03/27/2021 12:00:00 AM EDT Unknown if ever smoked comp leted Unknown if ever smoked [facility] ([facility]) Smoking 03/19/2021 12:00:00 AM EDT Unknown if ever smoked comp leted Unknown if ever smoked [facility] ([facility]) Smoking 02/12/2021 12:00:00 AM EDT Unknown if ever smoked comp leted Unknown if ever smoked [facility] ([facility] Smoking 02/07/2021 12:00:00 AM EDT Unknown if ever smoked comp leted Unknown if ever smoked [facility] ([facility]) Smoking 02/01/2021 12:00:00 AM EDT Unknown if ever smoked comp leted Unknown if ever smoked [facility] ([facility]) Smoking 01/23/2021 12:00:00 AM EDT Unknown if ever smoked comp leted Unknown if ever smoked [facility] ([facility]) Smoking 01/18/2021 12:00:00 AM EDT Unknown if ever smoked comp leted Unknown if ever smoked [facility] ([facility]) Smoking 01/17/2021 12:00:00 AM EDT Unknown if ever smoked comp leted Unknown if ever smoked [facility] ([facility]) Smoking 01/01/2021 12:00:00 AM EST Unknown if ever smoked comp leted Unknown if ever smoked [facility] ([facility]) Smoking 12/28/2020 12:00:00 AM EST Unknown if ever smoked comp leted Unknown if ever smoked [facility] ([facility]) Smoking 12/20/2020 12:00:00 AM EST Unknown if ever smoked comp leted Unknown if ever smoked [facility] ([facility]) Smoking 12/06/2020 12:00:00 AM EST Unknown if ever smoked comp leted Unknown if ever smoked [facility] ([facility]) Smoking 11/15/2020 12:00:00 AM EST Unknown if ever smoked comp leted Unknown if ever smoked [facility] ([facility]) Smoking 10/18/2020 12:00:00 AM EST Unknown if ever smoked comp leted Unknown if ever smoked [facility] ([facility]) Smoking 10/15/2020 12:00:00 AM EST Unknown if ever smoked comp leted Unknown if ever smoked [facility] ([facility]) Smoking 10/04/2020 12:00:00 AM EST Unknown if ever smoked comp leted Unknown if ever smoked [facility] ([facility]) Smoking 09/12/2020 12:00:00 AM EST Unknown if ever smoked comp leted Unknown if ever smoked [facility] ([facility]) Smoking 08/10/2020 12:00:00 AM EDT Unknown if ever smoked comp leted Unknown if ever smoked [facility] ([facility]) Smoking 07/13/2020 12:00:00 AM EDT Unknown if ever smoked comp leted Unknown if ever smoked [facility] ([facility]) Vital Signs ID Date Data Source UNK Name Value Range Interpretation Code Description Data Source(s) Body height 0.00 in Normal (applies to non-numeric resu lts) 0.00 in [facility] ([facility]) Body weight Measured 0.00 lbs Normal (applies to n on-numeric results) 0.00 lbs [facility] ([facility]) Body mass index (BMI) [Ratio] 0.00 kg/m2 No rmal (applies to non-numeric results) 0.00 kg/m2 [facility] ([facility]) Systolic blood pressure 0 mm[Hg] Normal (applies t o non-numeric results) 0 mm[Hg] [facility] ([facility]) Diastolic blood pressure 0 mm[Hg] Normal (applies to non-numeric results) 0 mm[Hg] [facility] ([facility]) Body height 0.00 in Normal (applies to non-numeric resu lts) 0.00 in [facility] ([facility]) Body weight Measured 0.00 lbs Normal (applies to n on-numeric results) 0.00 lbs [facility] ([facility]) Body mass index (BMI) [Ratio] 0.00 kg/m2 No rmal (applies to non-numeric results) 0.00 kg/m2 [facility] ([facility]) Systolic blood pressure 0 mm[Hg] Normal (applies t o non-numeric results) 0 mm[Hg] [facility] ([facility]) Diastolic blood pressure 0 mm[Hg] Normal (applies to non-numeric results) 0 mm[Hg] [facility] ([facility]) Body height 0.00 in Normal (applies to non-numeric resu lts) 0.00 in [facility] ([facility]) Body weight Measured 0.00 lbs Normal (applies to n on-numeric results) 0.00 lbs [facility] ([facility]) Body mass index (BMI) [Ratio] 0.00 kg/m2 No rmal (applies to non-numeric results) 0.00 kg/m2 [facility] ([facility]) Systolic blood pressure 0 mm[Hg] Normal (applies t o non-numeric results) 0 mm[Hg] [facility] ([facility]) Diastolic blood pressure 0 mm[Hg] Normal (applies to non-numeric results) 0 mm[Hg] [facility] ([facility]) Body height 0.00 in Normal (applies to non-numeric resu lts) 0.00 in [facility] ([facility]) Body weight Measured 0.00 lbs Normal (applies to n on-numeric results) 0.00 lbs [facility] ([facility]) Body mass index (BMI) [Ratio] 0.00 kg/m2 No rmal (applies to non-numeric results) 0.00 kg/m2 [facility] ([facility]) Systolic blood pressure 0 mm[Hg] Normal (applies t o non-numeric results) 0 mm[Hg] [facility] ([facility]) Diastolic blood pressure 0 mm[Hg] Normal (applies to non-numeric results) 0 mm[Hg] [facility] ([facility]) ID Date Data Source [id number] 09/22/2020 02:27:59 PM [facility] Name Value Range Interpretation Code Description Data Source(s) TRANSFER FROM [facility]
--- OUTSIDE RECORDS SUMMARY | 2021-09-08 09:12 | CCD ---
Author Author [facility] Organization [facility] Address Unknown Phone Unavailable Support Name Relationship Address Phone Hudson GUTIERREZ, Pasha Next Of Kin [address] [place] [address] Diamante Costa Next Of Kin [address] [place] [address] Dwain Joseph DO Next Of Kin [address] [place] [address] Camreon Bingham MD Next Of Kin [address] [place] [address] SELFGARY Next Of Kin [address] [place] [address] YONI JACK Next Of Kin [address] [place] [address] CORRECTIONAL, HUGHES Next Of Kin [address] [place] [address] Monique Conkiln MD Next Of Kin [address] [place] [phone] YONI CALHOUN Next Of Kin [address] [place] [address] Isabelle Manning Next Of Kin [address] [place] [address] Pat Gallo DO Next Of Kin [address] [place] [address] DISABLED Next Of Kin Unknown Unavailable [place] Self Next Of Kin [address] [place] [phone] SELF, JUNIOR Next Of Kin [address] [place] [address] UE Next Of Kin Unknown Unavailable SIMON WALL Next Of Kin [address] [place] [address] SELF, JUNIOR ECON [address] [place] [address] Unavailable Care Team Providers Care Group Sales Coordinator Name Role Phone Farden, M Rambo Unavailable Unavailable Farden, M Rmabo Unavailable Unavailable Farden, M Rambo Unavailable Unavailable [...] Unavailable Gina Nash Unavailable AMILCAR, H ANSELMO PHOTOGRAPHIC ARTIST Unavailable Unavailable AMILCAR, H ANSELMO PHOTOGRAPHIC ARTIST Unavailable Unavailable AMILCAR, H ANSELMO PHOTOGRAPHIC ARTIST Unavailable Unavailable AMILCAR, H ANSELMO PHOTOGRAPHIC ARTIST Unavailable Unavailable AMILCAR, H ANSELMO PHOTOGRAPHIC ARTIST Unavailable Unavailable AMILCAR, H ANSELMO PHOTOGRAPHIC ARTIST Unavailable Unavailable AMILCAR, H ANSELMO PHOTOGRAPHIC ARTIST Unavailable Unavailable AMILCAR, H ANSELMO PHOTOGRAPHIC ARTIST Unavailable Unavailable AMILCAR, H ANSELMO PHOTOGRAPHIC ARTIST Unavailable Unavailable Jossie Marcelino Unavailable Rotella, Jossy [...] is protected by Article 27-F of the [facility] Public Health law. If you continue you may have access to information: Regarding HIV / AIDS; Provided by facilities licensed or operated by the [facility] Office of Mental Health; or Provided by the [facility] Office for People With Developmental Disabilities. If such information is present, then the following [facility] mandated warning applies: This information has [...] allergy No Known Allergies No Known Allergies [facility] Propensity to adverse reactions NO KNOWN ALLERGIES NO KNOWN ALLERGIES [facility] Encounters Encounter Providers Location Date Indications Data Source(s ) Injectable Psychotropic Medication Administration (Inj ection Only) Attender: Thalia Carreno [facility] 09/02/2021 10:30:00 AM EDT - 09/02/2021 10:30:00 AM EDT [facility] ([facility]) Attender: Thalia Carreno 09/02/2021 12:00:00 AM EDT [facility] ([facility]) Injectable Medication Administration w/ Monitoring & E ducation Attender: [facility] 07/29/2021 02:30:00 AM EDT - 07/29/2021 02:30:00 AM EDT [facility] ([facility]) Attender: Pam Isbellpo 07/29/2021 12:00:00 AM EDT [facility] ([facility]) Injectable Medication Administration w/ Monitoring & E ducation Attender: Thalia Carreno [facility] 06/24/2021 10:45:00 AM EDT - 06/24/2021 10:45:00 AM EDT [facility] ([facility]) Attender: Thalia Carreno 06/24/2021 12:00:00 AM EDT [facility] ([facility]) Injectable Psychotropic Medication Administration (Inj ection Only) Attender: Thalia [facility] 05/27/2021 08:15:00 AM EDT - 05/27/2021 08:15:00 AM EDT [facility] ([facility]) Attender: Thalia Carreno 05/27/2021 12:00:00 AM EDT [facility] ([facility]) Brief Individual Psychotherapy - 30 min Attender: Gina yun [facility] 05/13/2021 08:30:00 AM EDT - 05/13/2021 08:30:00 AM EDT [facility] ([facility]) Attender: Gina Nash 05/13/2021 12:00:00 AM EDT [facility] ([facility]) Attender: Pam Juarez 04/04/2021 12:00:00 AM EDT [facility] ([facility]) Injectable Medication Administration w/ Monitoring & E ducation Attender: Pam Juarez [facility] 04/03/2021 09:00:00 AM EDT - 04/03/2021 09:00:00 AM EDT [facility] ([facility]) Outpatient Attender: ANSELMO APONTE NP [facility] Mike garcía 04/03/2021 08:30:00 AM EDT - 04/03/2021 08:30:00 AM EDT [facility] ([facility]) Attender: ANSELMO APONTE NP 04/03/2021 12:00:00 AM EDT [facility] ([facility]) Outpatient Attender: ANSELMO APONTE NP [facility] Mike garcía 03/27/2021 11:00:00 AM EDT - 03/27/2021 11:00:00 AM EDT [facility] ([facility]) Attender: ANSELMO APONTE NP 03/27/2021 12:00:00 AM EDT [facility] ([facility]) Outpatient Attender: ANSELMO APONTE NP [facility] Mike garcía 03/19/2021 03:00:00 AM EDT - 03/19/2021 03:00:00 AM EDT [facility] ([facility]) Attender: ANSELMO APONTE NP 03/19/2021 12:00:00 AM EDT [facility] ([facility]) Inpatient Attender: JONNATHAN TRACY MDAdmitter: JONNATHAN TRACY MD 02/27/2021 08:12:00 PM EDT - 03/08/2021 03:27:00 PM EDT Suicidal Ideation / Homicidal Ideation [facility] Suicidal Ideation / Homicidal Ideation Patient discharged. Outpatient Attender: JONNATHAN TRACY MDAdmi tter: JONNATHAN TRACY MDConsultant: JONNATHAN TRACY MD 02/27/2021 08:12:00 PM EDT Suicidal Ideation / H omicidal Ideation [facility] Suicidal Ideation / Homicidal Ideation Outpatient Attender: JONNATHAN TRACY MDAdmi tter: JONNATHAN TRACY MDConsultant: JONNATHAN TRACY MD 02/27/2021 08:12:00 PM EDT Suicidal Ideation / H omicidal Ideation [facility] Suicidal Ideation / Homicidal Ideation Outpatient Attender: Castro ColonAdmitter : JONNATHAN TRACY MDConsultant: JONNATHAN TRACY MD 02/27/2021 08:12:00 PM EDT Suicidal Ideation / H omicidal Ideation [facility] Suicidal Ideation / Homicidal Ideation Outpatient Attender: JONNATHAN TRACY MDAdmi tter: JONNATHAN TRACY MDConsultant: JONNATHAN TRACY MD 02/27/2021 08:12:00 PM EDT Suicidal Ideation / H omicidal Ideation [facility] Suicidal Ideation / Homicidal Ideation Outpatient Attender: JONNATHAN TRACY MDAdmi tter: JONNATHAN TRACY MDConsultant: JONNATHAN TRACY MD 02/27/2021 08:12:00 PM EDT Suicidal Ideation / H omicidal Ideation [facility] Suicidal Ideation / Homicidal Ideation Outpatient Attender: JONNATHAN TRACY MDAdmi tter: JONNATHAN TRACY MDConsultant: JONNATHAN TRACY MD 02/27/2021 08:12:00 PM EDT Suicidal Ideation / H omicidal Ideation [facility] Suicidal Ideation / Homicidal Ideation Outpatient Attender: Castro ColonAdmitter : JONNATHAN TRACY MDConsultant: JONNATHAN TRACY MD 02/27/2021 08:12:00 PM EDT Suicidal Ideation / H omicidal Ideation [facility] Suicidal Ideation / Homicidal Ideation Outpatient Attender: Castro ZayasAdmitter : JONNATHAN TRACY MDConsultant: JONNATHAN TRACY MD 02/27/2021 08:12:00 PM EDT Suicidal Ideation / H omicidal Ideation [facility] Suicidal Ideation / Homicidal Ideation Outpatient Attender: JONNATHAN TRACY MDAdmi tter: JONNATHAN TRACY MDConsultant: JONNATHAN TRACY MD 02/27/2021 08:12:00 PM EDT Suicidal Ideation / H omicidal Ideation [facility] Suicidal Ideation / Homicidal Ideation Outpatient Attender: Rambo Pedroza mitter: JONNATHAN TRACY MDConsultant: JONNATHAN TRACY MD 02/27/2021 08:12:00 PM EDT Suicidal Ideation / H omicidal Ideation [facility] Suicidal Ideation / Homicidal Ideation Outpatient Attender: ANSELMO APONTE NP [facility] Mike garcía 02/12/2021 10:30:00 AM EDT - 02/12/2021 10:30:00 AM EDT [facility] ([facility]) Attender: ANSELMO APONTE NP 02/12/2021 12:00:00 AM EDT [facility] ([facility]) Outpatient Attender: ANSELMO APONTE NP [facility] Mike raquel 02/07/2021 11:30:00 AM EDT - 02/07/2021 11:30:00 AM EDT [facility] ([facility]) Attender: ANSELMO APONTE NP 02/07/2021 12:00:00 AM EDT [facility] ([facility]) Brief Individual Psychotherapy - 30 min Attender: Gina yun [facility] Maria Alejandra 02/01/2021 02:00:00 AM EDT - 02/01/2021 02:00:00 AM EDT [facility] ([facility]) Attender: Gina Nash 02/01/2021 12:00:00 AM EDT [facility] ([facility]) Injectable Psychotropic Medication Administration (Inj ection Only) [facility] 10:00:00 AM EDT - 01/23/2021 10:00:00 AM EDT [facility] ([facility]) Outpatient Attender: ANSELMO APONTE NP [facility] Mike garcía 01/23/2021 09:15:00 AM EDT - 01/23/2021 09:15:00 AM EDT [facility] ([facility]) Attender: ANSELMO APONTE NP 01/23/2021 12:00:00 AM EDT [facility] ([facility]) Attender: Thalia Carreno 01/23/2021 12:00:00 AM EDT [facility] ([facility]) Injectable Medication Administration w/ Monitoring & E ducation Attender: Pam Juarez [facility] 01/18/2021 11:00:00 AM EDT - 01/18/2021 11:00:00 AM EDT [facility] ([facility]) Attender: Pam Juarez 01/18/2021 12:00:00 AM EDT [facility] ([facility]) Outpatient Attender: ANSELMO APONTE NP [facility] Mike garcía 01/17/2021 09:00:00 AM EDT - 01/17/2021 09:00:00 AM EDT [facility] ([facility]) Attender: ANSELMO APONTE NP 01/17/2021 12:00:00 AM EDT [facility] ([facility]) Outpatient Attender: ANSELMO APONTE NP [facility] Mike garcía 01/01/2021 02:30:00 AM EST - 01/01/2021 02:30:00 AM EST [facility] ([facility]) Attender: ANSELMO APONTE NP 01/01/2021 12:00:00 AM EST [facility] ([facility]) Injectable Psychotropic Medication Administration (Inj ection Only) Attender: Jossie Marcelino [facility] 12/28/2020 10:30:00 AM EST - 12/28/2020 10:30:00 AM EST [facility] ([facility]) Attender: Jossie Ryland 12/28/2020 12:00:00 AM EST [facility] ([facility]) Outpatient Attender: Victorino Escobar MD [facility] Mike garcía 12/20/2020 09:30:00 AM EST - 12/20/2020 09:30:00 AM EST [facility] ([facility]) Attender: Victorino Escobar MD 12/20/2020 12:00:00 AM EST [facility] ([facility]) Outpatient Attender: Victorino Escobar MD [facility] 12/06/2020 12:30:00 PM EST - 12/06/2020 12:30:00 PM EST [facility] ([facility]) Attender: Victorino Escobar MD 12/06/2020 12:00:00 AM EST [facility] ([facility]) Injectable Medication Administration w/ Monitoring & E ducation Attender: ORGANIZATION NPI ALIASES [facility] 11/15/2020 11:15: 00 AM EST - 11/15/2020 11:15:00 AM EST [facility] ([facility]) Outpatient Attender: Victorino Escobar MD [facility] 11/15/2020 11:00:00 AM EST - 11/15/2020 11:00:00 AM EST [facility] ([facility]) Attender: ORGANIZATION NPI ALIASES * 11/15/2020 12:00:00 AM EST [facility] ([facility]) Attender: Victorino Escobar MD 11/15/2020 12:00:00 AM EST [facility] ([facility]) Injectable Psychotropic Medication Administration (Inj ection Only) Attender: Jossy Mejia [facility] 10/18/2020 10:30:00 AM EST - 10/18/2020 10:30:00 AM EST [facility] ([facility]) Attender: Jossy Meija 10/18/2020 12:00:00 AM EST [facility] ([facility]) Injectable Psychotropic Medication Administration (Inj ection Only) Attender: Jossy Mejia [facility] 10/15/2020 11:00:00 AM EST - 10/15/2020 11:00:00 AM EST [facility] ([facility]) Attender: Jossy Mejia 10/15/2020 12:00:00 AM EST [facility] ([facility]) Injectable Psychotropic Medication Administration (Inj ection Only) Attender: Jossy Mejia [facility] 10/04/2020 10:30:00 AM EST - 10/04/2020 10:30:00 AM EST [facility] ([facility]) Outpatient Attender: KALLI MOLINAURSZULA [facility] 10/04/2020 10:00:00 AM EST - 10/04/2020 10:00:00 AM EST [facility] ([facility]) Attender: Jossy Mejia 10/04/2020 12:00:00 AM EST [facility] ([facility]) Attender: KALLI MOLINAURSZULA 10/04/2020 12:00: 00 AM EST [facility] ([facility]) Outpatient Referrer: [facility] 09/22/2020 0 2:27:00 PM EST schizophrenia, hallucinations, substance abuse [facility] schizophrenia, hallucinations, substance abuse Injectable Psychotropic Medication Administration (Inj ection Only) Attender: Jossy Mejia [facility] 09/12/2020 09:30:00 AM EST - 09/12/2020 09:30:00 AM EST [facility] ([facility]) Outpatient Attender: KALLI MOLINAURSZULA [facility] 09/12/2020 09:00:00 AM EST - 09/12/2020 09:00:00 AM EST [facility] ([facility]) Attender: KALLI MOLINAURSZULA 09/12/2020 12:00: 00 AM EST [facility] ([facility]) Attender: Jossy Mejia 09/12/2020 12:00:00 AM EST [facility] ([facility]) Outpatient Attender: KALLI IGLESIAS [facility] Lynn mora 08/10/2020 02:00:00 AM EDT - 08/10/2020 02:00:00 AM EDT [facility] ([facility] 12:00: 00 AM EDT [facility] ([facility]) Injectable Psychotropic Medication Administration (Inj ection Only) Attender: Jossy Mejia [facility] 07/13/2020 02:00:00 AM EDT - 07/13/2020 02:00:00 AM EDT [facility] ([facility]) Attender: Jossy Mejia 07/13/2020 12:00:00 AM EDT [facility] ([facility]) Outpatient Attender: Pasha Treviño MD 07/12/2020 02:46:50 PM EDT [facility] Functional Status Medications Medication Brand Name Start Date Product Form Dose Route Admi nistrative Instructions Pharmacy Instructions Status Indications Reaction Description Data Source(s) Prazosin 1 MG Oral Capsule prazosin 07/10/2021 12:00:00 AM EDT 1 mg by mouth completed <td ID="Medicat ionRxNorm_4">142953</td><td ID="MedicationMedication_4">prazosin</td><td ID="MedicationRoute_4">by mouth</td><td ID="MedicationRouteConcept_4">N51835</td><td ID="MedicationStartDate_4">07/10/2021</td><td ID="MedicationStopDate_4">09/30/2021</td><td ID="MedicationDosageFrequency_4">at bedtime</td><td ID="MedicationDuration_4">30</td><td ID="MedicationFormulaStrength_4">1 mg</td><td ID="MedicationDosageForm_4">capsule</td><td ID="MedicationDosageFormCode_4"></td><td ID="MedicationDosageDescription_4"></td><td ID="MedicationMedicationId_4">[id number]</td><td ID="MedicationAccount_4">[id number]</td><td ID="MedicationNpid_4">[id number]</td><td ID="MedicationAuthorFirstName_4">Anselmo</td><td ID="MedicationAuthorLastName_4">Amilcar</td><td ID="MedicationTaxonomyCode_4">[id number]</td><td ID="MedicationTaxonomyDesc_4">Nurse Practitioner</td><td ID="MedicationPhoneNumber_4">[phone]</td> [facility] ([facility]) olanzapine 5 MG Oral Tablet [Zyprexa] Zyprexa 05/23/2021 12:00:00 AM EDT 5 mg by mouth completed <td ID="Medica tionRxNorm_2">506416</td><td ID="MedicationMedication_2">Zyprexa</td><td ID="MedicationRoute_2">by mouth</td><td ID="MedicationRouteConcept_2">O95620</td><td ID="MedicationStartDate_2">05/23/2021</td><td ID="MedicationStopDate_2">09/30/2021</td><td ID="MedicationDosageFrequency_2">at bedtime</td><td ID="MedicationDuration_2">30</td><td ID="MedicationFormulaStrength_2">5 mg</td><td ID="MedicationDosageForm_2">tablet</td><td ID="MedicationDosageFormCode_2"></td><td ID="MedicationDosageDescription_2"></td><td ID="MedicationMedicationId_2">[id number]</td><td ID="MedicationAccount_2">[id number]</td><td ID="MedicationNpid_2">[id number]</td><td ID="MedicationAuthorFirstName_2">Anselmo</td><td ID="MedicationAuthorLastName_2">Amilcar</td><td ID="MedicationTaxonomyCode_2">[id number]</td><td ID="MedicationTaxonomyDesc_2">Nurse Practitioner</td><td ID="MedicationPhoneNumber_2">[phone]</td> [facility] ([facility]) benztropine mesylate 1 MG Oral Tablet benztropine 05/23/2021 12:00 :00 AM EDT 1 mg by mouth completed <td ID="Me dicationRxNorm_3">430235</td><td ID="MedicationMedication_3">benztropine</td><td ID="MedicationRoute_3">by mouth</td><td ID="MedicationRouteConcept_3">V04686</td><td ID="MedicationStartDate_3">05/23/2021</td><td ID="MedicationStopDate_3">09/30/2021</td><td ID="MedicationDosageFrequency_3">at bedtime</td><td ID="MedicationDuration_3">30</td><td ID="MedicationFormulaStrength_3">1 mg</td><td ID="MedicationDosageForm_3">tablet</td><td ID="MedicationDosageFormCode_3"></td><td ID="MedicationDosageDescription_3"></td><td ID="MedicationMedicationId_3">[id number]</td><td ID="MedicationAccount_3">[id number]</td><td ID="MedicationNpid_3">[id number]</td><td ID="MedicationAuthorFirstName_3">Anselmo</td><td ID="MedicationAuthorLastName_3">Amilcar</td><td ID="MedicationTaxonomyCode_3">[id number]</td><td ID="MedicationTaxonomyDesc_3">Nurse Practitioner</td><td ID="MedicationPhoneNumber_3">[phone]</td> [facility] ([facility]) 1.5 ML paliperidone palmitate 156 MG/ML Prefilled Syri nge [Invega] Invega Sustenna 04/16/2021 12:00:00 AM EDT 234 mg/1.5 compl eted <td ID="MedicationRxNorm_1">296231</td><td ID="MedicationMedication_1">Invega Sustenna</td><td ID="MedicationRoute_1"></td><td ID="MedicationRouteConcept_1"></td><td ID="MedicationStartDate_1">04/16/2021</td><td ID="MedicationStopDate_1"></td><td ID="MedicationDosageFrequency_1"></td><td ID="MedicationDuration_1"></td><td ID="MedicationFormulaStrength_1">234 mg/1.5 mL</td><td ID="MedicationDosageForm_1">syringe</td><td ID="MedicationDosageFormCode_1"></td><td ID="MedicationDosageDescription_1"> </td><td ID="MedicationMedicationId_1">[id number]</td><td ID="MedicationAccount_1">[id number]</td><td ID="MedicationNpid_1">[id number]</td><td ID="MedicationAuthorFirstName_1">Anselmo</td><td ID="MedicationAuthorLastName_1">Amilcar</td><td ID="MedicationTaxonomyCode_1">[id number]</td><td ID="MedicationTaxonomyDesc_1">Nurse Practitioner</td><td ID="MedicationPhoneNumber_1">[phone]</td> [facility] ([facility]) 2.625 ML paliperidone palmitate 312 MG/ML Prefilled Sy ringe [Invega] Invega Socorroza 04/03/2021 12:00:00 AM EDT 819 mg/2.625 compl eted <td ID="MedicationRxNorm_3">1145663</td><td ID="MedicationMedication_3">Invega Trinza</td><td ID="MedicationRoute_3">intramuscularly</td><td ID="MedicationRouteConcept_3"></td><td ID="MedicationStartDate_3">04/03/2021</td><td ID="MedicationStopDate_3">07/02/2021</td><td ID="MedicationDosageFrequency_3">every three months</td><td ID="MedicationDuration_3">90</td><td ID="MedicationFormulaStrength_3">819 mg/2.625 mL</td><td ID="MedicationDosageForm_3">syringe</td><td ID="MedicationDosageFormCode_3"></td><td ID="MedicationDosageDescription_3"></td><td ID="MedicationMedicationId_3">[id number]</td><td ID="MedicationAccount_3">[id number]</td><td ID="MedicationNpid_3">[id number]</td><td ID="MedicationAuthorFirstName_3">Anselmo</td><td ID="MedicationAuthorLastName_3">Amilcar</td><td ID="MedicationTaxonomyCode_3">[id number]</td><td ID="MedicationTaxonomyDesc_3"> Nurse Practitioner</td><td ID="MedicationPhoneNumber_3">[phone]</td> [facility] ([facility]) 2.625 ML paliperidone palmitate 312 MG/ML Prefilled Sy ringe [Invega] Invega Socorroza 04/03/2021 12:00:00 AM EDT 819 mg/2.625 compl eted <td ID="MedicationRxNorm_4">[id number]</td><td ID="MedicationMedication_4">Invega Trinza</td><td ID="MedicationRoute_4">intramuscularly</td><td ID="MedicationRouteConcept_4"></td><td ID="MedicationStartDate_4">04/03/2021</td><td ID="MedicationStopDate_4">07/02/2021</td><td ID="MedicationDosageFrequency_4">every three months</td><td ID="MedicationDuration_4">90</td><td ID="MedicationFormulaStrength_4">819 mg/2.625 mL</td><td ID="MedicationDosageForm_4">syringe</td><td ID="MedicationDosageFormCode_4"></td><td ID="MedicationDosageDescription_4"></td><td ID="MedicationMedicationId_4">[id number]</td><td ID="MedicationAccount_4">[id number]</td><td ID="MedicationNpid_4">[id number]</td><td ID="MedicationAuthorFirstName_4">Anselmo</td><td ID="MedicationAuthorLastName_4">Amilcar</td><td ID="MedicationTaxonomyCode_4">[id number]</td><td ID="MedicationTaxonomyDesc_4"> Nurse Practitioner</td><td ID="MedicationPhoneNumber_4">[phone]</td> [facility] ([facility]) haloperidol decanoate haloperidol decanoate 04/03/2021 12:00:00 AM EDT 100 mg/mL completed <td ID="Me dicationRxNorm_2">0602708</td><td ID="MedicationMedication_2">haloperidol decanoate</td><td ID="MedicationRoute_2">intramuscularly</td><td ID="MedicationRouteConcept_2"> </td><td ID="MedicationStartDate_2">04/03/2021</td><td ID="MedicationStopDate_2">04/03/2021</td><td ID="MedicationDosageFrequency_2">every four weeks</td><td ID="MedicationDuration_2">28</td><td ID="MedicationFormulaStrength_2">100 mg/mL</td><td ID="MedicationDosageForm_2">solution</td><td ID="MedicationDosageFormCode_2"></td><td ID="MedicationDosageDescription_2"></td><td ID="MedicationMedicationId_2">[id number]</td><td ID="MedicationAccount_2">[id number]</td><td ID="MedicationNpid_2">[id number]</td><td ID="MedicationAuthorFirstName_2">Anselmo</td><td ID="MedicationAuthorLastName_2">Amilcar</td><td ID="MedicationTaxonomyCode_2">[id number]</td><td ID="MedicationTaxonomyDesc_2"> Nurse Practitioner</td><td ID="MedicationPhoneNumber_2">[phone]</td> [facility] ([facility]) benztropine mesylate 1 MG Oral Tablet benztropine 04/03/2021 12:00 :00 AM EDT 1 mg by mouth completed <td ID="Me dicationRxNorm_2">383190</td><td ID="MedicationMedication_2">benztropine</td><td ID="MedicationRoute_2">by mouth</td><td ID="MedicationRouteConcept_2">E54745</td><td ID="MedicationStartDate_2">04/03/2021</td><td ID="MedicationStopDate_2">05/03/2021</td><td ID="MedicationDosageFrequency_2">at bedtime</td><td ID="MedicationDuration_2">30</td><td ID="MedicationFormulaStrength_2">1 mg</td><td ID="MedicationDosageForm_2">tablet</td><td ID="MedicationDosageFormCode_2"></td><td ID="MedicationDosageDescription_2"></td><td ID="MedicationMedicationId_2">[id number]</td><td ID="MedicationAccount_2">[id number]</td><td ID="MedicationNpid_2">[id number]</td><td ID="MedicationAuthorFirstName_2">Anselmo</td><td ID="MedicationAuthorLastName_2">Amilcar</td><td ID="MedicationTaxonomyCode_2">[id number]</td><td ID="MedicationTaxonomyDesc_2">Nurse Practitioner</td><td ID="MedicationPhoneNumber_2">[phone]</td> [facility] ([facility]) olanzapine 5 MG Oral Tablet [Zyprexa] Zyprexa 04/03/2021 12:00:00 AM EDT 5 mg by mouth completed <td ID="Medica tionRxNorm_1">015307</td><td ID="MedicationMedication_1">Zyprexa</td><td ID="MedicationRoute_1">by mouth</td><td ID="MedicationRouteConcept_1">V50826</td><td ID="MedicationStartDate_1">04/03/2021</td><td ID="MedicationStopDate_1">05/03/2021</td><td ID="MedicationDosageFrequency_1">at bedtime</td><td ID="MedicationDuration_1">30</td><td ID="MedicationFormulaStrength_1">5 mg</td><td ID="MedicationDosageForm_1">tablet</td><td ID="MedicationDosageFormCode_1"></td><td ID="MedicationDosageDescription_1"></td><td ID="MedicationMedicationId_1">[id number]</td><td ID="MedicationAccount_1">[id number]</td><td ID="MedicationNpid_1">[id number]</td><td ID="MedicationAuthorFirstName_1">Anselmo</td><td ID="MedicationAuthorLastName_1">Amilcar</td><td ID="MedicationTaxonomyCode_1">[id number]</td><td ID="MedicationTaxonomyDesc_1">Nurse Practitioner</td><td ID="MedicationPhoneNumber_1">[phone]</td> [facility] ([facility]) 2.625 ML paliperidone palmitate 312 MG/ML Prefilled Sy ringe [Invega] Invsuleiman Roth 04/03/2021 12:00:00 AM EDT 819 mg/2.625 compl eted <td ID="MedicationRxNorm_5">[id number]</td><td ID="MedicationMedication_5">Invega Trinza</td><td ID="MedicationRoute_5">intramuscularly</td><td ID="MedicationRouteConcept_5"></td><td ID="MedicationStartDate_5">04/03/2021</td><td ID="MedicationStopDate_5">07/02/2021</td><td ID="MedicationDosageFrequency_5">every three months</td><td ID="MedicationDuration_5">90</td><td ID="MedicationFormulaStrength_5">819 mg/2.625 mL</td><td ID="MedicationDosageForm_5">syringe</td><td ID="MedicationDosageFormCode_5"></td><td ID="MedicationDosageDescription_5"></td><td ID="MedicationMedicationId_5">[id number]</td><td ID="MedicationAccount_5">[id number]</td><td ID="MedicationNpid_5">[id number]</td><td ID="MedicationAuthorFirstName_5">Anselmo</td><td ID="MedicationAuthorLastName_5">Amilcar</td><td ID="MedicationTaxonomyCode_5">[id number]</td><td ID="MedicationTaxonomyDesc_5"> Nurse Practitioner</td><td ID="MedicationPhoneNumber_5">[phone]</td> [facility] ([facility]) benztropine mesylate 1 MG Oral Tablet benztropine 04/03/2021 12:00 :00 AM EDT 1 mg by mouth completed <td ID="Me dicationRxNorm_4">842879</td><td ID="MedicationMedication_4">benztropine</td><td ID="MedicationRoute_4">by mouth</td><td ID="MedicationRouteConcept_4">G39967</td><td ID="MedicationStartDate_4">04/03/2021</td><td ID="MedicationStopDate_4">05/03/2021</td><td ID="MedicationDosageFrequency_4">at bedtime</td><td ID="MedicationDuration_4">30</td><td ID="MedicationFormulaStrength_4">1 mg</td><td ID="MedicationDosageForm_4">tablet</td><td ID="MedicationDosageFormCode_4"></td><td ID="MedicationDosageDescription_4"></td><td ID="MedicationMedicationId_4">[id number]</td><td ID="MedicationAccount_4">[id number]</td><td ID="MedicationNpid_4">[id number]</td><td ID="MedicationAuthorFirstName_4">Anselmo</td><td ID="MedicationAuthorLastName_4">Amilcar</td><td ID="MedicationTaxonomyCode_4">[id number]</td><td ID="MedicationTaxonomyDesc_4">Nurse Practitioner</td><td ID="MedicationPhoneNumber_4">[phone]</td> [facility] ([facility]) olanzapine 5 MG Oral Tablet [Zyprexa] Zyprexa 04/03/2021 12:00:00 AM EDT 5 mg by mouth completed <td ID="Medica tionRxNorm_3">485231</td><td ID="MedicationMedication_3">Zyprexa</td><td ID="MedicationRoute_3">by mouth</td><td ID="MedicationRouteConcept_3">P69647</td><td ID="MedicationStartDate_3">04/03/2021</td><td ID="MedicationStopDate_3">05/03/2021</td><td ID="MedicationDosageFrequency_3">at bedtime</td><td ID="MedicationDuration_3">30</td><td ID="MedicationFormulaStrength_3">5 mg</td><td ID="MedicationDosageForm_3">tablet</td><td ID="MedicationDosageFormCode_3"></td><td ID="MedicationDosageDescription_3"></td><td ID="MedicationMedicationId_3">[id number]</td><td ID="MedicationAccount_3">[id number]</td><td ID="MedicationNpid_3">[id number]</td><td ID="MedicationAuthorFirstName_3">Anselmo</td><td ID="MedicationAuthorLastName_3">Amilcar</td><td ID="MedicationTaxonomyCode_3">[id number]</td><td ID="MedicationTaxonomyDesc_3">Nurse Practitioner</td><td ID="MedicationPhoneNumber_3">[phone]</td> [facility] ([facility]) 2.625 ML paliperidone palmitate 312 MG/ML Prefilled Sy ringe [Invega] Invega Trinza 04/03/2021 12:00:00 AM EDT 819 mg/2.625 compl eted <td ID="MedicationRxNorm_2">[id number]</td><td ID="MedicationMedication_2">Invega Trinza</td><td ID="MedicationRoute_2">intramuscularly</td><td ID="MedicationRouteConcept_2"></td><td ID="MedicationStartDate_2">04/03/2021</td><td ID="MedicationStopDate_2">07/02/2021</td><td ID="MedicationDosageFrequency_2">every three months</td><td ID="MedicationDuration_2">90</td><td ID="MedicationFormulaStrength_2">819 mg/2.625 mL</td><td ID="MedicationDosageForm_2">syringe</td><td ID="MedicationDosageFormCode_2"></td><td ID="MedicationDosageDescription_2"></td><td ID="MedicationMedicationId_2">[id number]</td><td ID="MedicationAccount_2">[id number]</td><td ID="MedicationNpid_2">[id number]</td><td ID="MedicationAuthorFirstName_2">Anselmo</td><td ID="MedicationAuthorLastName_2">Amilcar</td><td ID="MedicationTaxonomyCode_2">[id number]</td><td ID="MedicationTaxonomyDesc_2"> Nurse Practitioner</td><td ID="MedicationPhoneNumber_2">[phone]</td> [facility] ([facility]) haloperidol decanoate haloperidol decanoate 10/04/2020 12:00:00 AM EST 100 mg/mL completed <td ID="Me dicationRxNorm_1">[id number]</td><td ID="MedicationMedication_1">haloperidol decanoate</td><td ID="MedicationRoute_1">intramuscularly</td><td ID="MedicationRouteConcept_1"> </td><td ID="MedicationStartDate_1">10/04/2020</td><td ID="MedicationStopDate_1">04/03/2021</td><td ID="MedicationDosageFrequency_1">as directed</td><td ID="MedicationDuration_1">21</td><td ID="MedicationFormulaStrength_1">100 mg/mL</td><td ID="MedicationDosageForm_1">solution</td><td ID="MedicationDosageFormCode_1"></td><td ID="MedicationDosageDescription_1"></td><td ID="MedicationMedicationId_1">[id number]</td><td ID="MedicationAccount_1">[id number]</td><td ID="MedicationNpid_1">[id number]</td><td ID="MedicationAuthorFirstName_1">Victorino</td><td ID="MedicationAuthorLastName_1">Escobar</td><td ID="MedicationTaxonomyCode_1">[id number]</td><td ID="MedicationTaxonomyDesc_1"> Psychiatry</td><td ID="MedicationPhoneNumber_1">[phone]</td> [facility] ([facility] 100 mg/mL 10/02/2020 12:00:00 AM EST solution [...] 50 mg by mouth completed <td ID="Medic ationRxNorm_5">721504</td><td ID="MedicationMedication_5">trazodone</td><td ID="MedicationRoute_5">by mouth</td><td ID="MedicationRouteConcept_5">L46033</td><td ID="MedicationStartDate_5">09/12/2020</td><td ID="MedicationStopDate_5">10/12/2020</td><td ID="MedicationDosageFrequency_5">every night</td><td ID="MedicationDuration_5">30</td><td ID="MedicationFormulaStrength_5">50 mg</td><td ID="MedicationDosageForm_5">tablet</td><td ID="MedicationDosageFormCode_5"></td><td ID="MedicationDosageDescription_5"></td><td ID="MedicationMedicationId_5">[id number]</td><td ID="MedicationAccount_5">[id number]</td><td ID="MedicationNpid_5">[id number]</td><td ID="MedicationAuthorFirstName_5">Kalli</td><td ID="MedicationAuthorLastName_5">Egorho</td><td ID="MedicationTaxonomyCode_5">[id number]</td><td ID="MedicationTaxonomyDesc_5">Nurse Practitioner</td><td ID="MedicationPhoneNumber_5">[phone]</td> [facility] ([facility]) Trazodone Hydrochloride 50 MG Oral Tablet trazodone 2019 12:00:00 AM EST 50 mg by mouth completed <td ID="Medic ationRxNorm_1">600295</td><td ID="MedicationMedication_1">trazodone</td><td ID="MedicationRoute_1">by mouth</td><td ID="MedicationRouteConcept_1">J22396</td><td ID="MedicationStartDate_1">09/12/2020</td><td ID="MedicationStopDate_1">10/12/2020</td><td ID="MedicationDosageFrequency_1">every night</td><td ID="MedicationDuration_1">30</td><td ID="MedicationFormulaStrength_1">50 mg</td><td ID="MedicationDosageForm_1">tablet</td><td ID="MedicationDosageFormCode_1"></td><td ID="MedicationDosageDescription_1"></td><td ID="MedicationMedicationId_1">[id number]</td><td ID="MedicationAccount_1">[id number]</td><td ID="MedicationNpid_1">[id number]</td><td ID="MedicationAuthorFirstName_1">Kalli</td><td ID="MedicationAuthorLastName_1">Egorho</td><td ID="MedicationTaxonomyCode_1">[id number]</td><td ID="MedicationTaxonomyDesc_1">Nurse Practitioner</td><td ID="MedicationPhoneNumber_1">[phone]</td> [facility] ([facility]) Haldol Decanoate Haldol Decanoate 09/12/2020 12:00:00 AM EST 100 mg/mL completed <td ID="MedicationRx Norm_4">0755670</td><td ID="MedicationMedication_4">Haldol Decanoate</td><td ID="MedicationRoute_4">intramuscularly</td><td ID="MedicationRouteConcept_4"></td><td ID="MedicationStartDate_4">09/12/2020</td><td ID="MedicationStopDate_4">09/15/2020</td><td ID="MedicationDosageFrequency_4">as directed</td><td ID="MedicationDuration_4">1</td><td ID="MedicationFormulaStrength_4">100 mg/mL</td><td ID="MedicationDosageForm_4">solution</td><td ID="MedicationDosageFormCode_4"></td><td ID="MedicationDosageDescription_4"></td><td ID="MedicationMedicationId_4">37577</td><td ID="MedicationAccount_4">[id number]</td><td ID="MedicationNpid_4">[id number]</td><td ID="MedicationAuthorFirstName_4">Kalli</td><td ID="MedicationAuthorLastName_4">Egorho</td><td ID="MedicationTaxonomyCode_4">[id number]</td><td ID="MedicationTaxonomyDesc_4">Nurse Practitioner</td><td ID="MedicationPhoneNumber_4">[phone]</td> [facility] ([facility]) quetiapine 300 MG Oral Tablet quetiapine 01/06/2020 12:00:00 AM EST 300 mg completed <td ID="Medicat ionRxNorm_4">636972</td><td ID="MedicationMedication_4">quetiapine</td><td ID="MedicationRoute_4"></td><td ID="MedicationRouteConcept_4"></td><td ID="MedicationStartDate_4">01/06/2020</td><td ID="MedicationStopDate_4">01/05/2021</td><td ID="MedicationDosageFrequency_4">at bedtime</td><td ID="MedicationDuration_4">30</td><td ID="MedicationFormulaStrength_4">300 mg</td><td ID="MedicationDosageForm_4">tablet</td><td ID="MedicationDosageFormCode_4"></td><td ID="MedicationDosageDescription_4"></td><td ID="MedicationMedicationId_4">[id number]</td><td ID="MedicationAccount_4">[id number]</td><td ID="MedicationNpid_4">[id number]</td><td ID="MedicationAuthorFirstName_4">Dane</td><td ID="MedicationAuthorLastName_4">[place]</td><td ID="MedicationTaxonomyCode_4">[id number]</td><td ID="MedicationTaxonomyDesc_4">Psychiatric/Mental Health</td><td ID="MedicationPhoneNumber_4">[phone]</td> [facility] ([facility]) quetiapine 300 MG Oral Tablet quetiapine 01/06/2020 12:00:00 AM EST 300 mg completed <td ID="Medicat ionRxNorm_1">245223</td><td ID="MedicationMedication_1">quetiapine</td><td ID="MedicationRoute_1"></td><td ID="MedicationRouteConcept_1"></td><td ID="MedicationStartDate_1">01/06/2020</td><td ID="MedicationStopDate_1">01/05/2021</td><td ID="MedicationDosageFrequency_1">at bedtime</td><td ID="MedicationDuration_1">30</td><td ID="MedicationFormulaStrength_1">300 mg</td><td ID="MedicationDosageForm_1">tablet</td><td ID="MedicationDosageFormCode_1"></td><td ID="MedicationDosageDescription_1"></td><td ID="MedicationMedicationId_1">11979</td><td ID="MedicationAccount_1">[id number]</td><td ID="MedicationNpid_1">[id number]</td><td ID="MedicationAuthorFirstName_1">Dane</td><td ID="MedicationAuthorLastName_1">Loida</td><td ID="MedicationTaxonomyCode_1">[id number]</td><td ID="MedicationTaxonomyDesc_1">Psychiatric/Mental Health</td><td ID="MedicationPhoneNumber_1">[phone]</td> [facility] ([facility]) quetiapine 300 MG Oral Tablet quetiapine 01/06/2020 12:00:00 AM EST 300 mg completed <td ID="Medicat ionRxNorm_5">965833</td><td ID="MedicationMedication_5">quetiapine</td><td ID="MedicationRoute_5"></td><td ID="MedicationRouteConcept_5"></td><td ID="MedicationStartDate_5">01/06/2020</td><td ID="MedicationStopDate_5">01/05/2021</td><td ID="MedicationDosageFrequency_5">at bedtime</td><td ID="MedicationDuration_5">30</td><td ID="MedicationFormulaStrength_5">300 mg</td><td ID="MedicationDosageForm_5">tablet</td><td ID="MedicationDosageFormCode_5"></td><td ID="MedicationDosageDescription_5"></td><td ID="MedicationMedicationId_5">[id number]</td><td ID="MedicationAccount_5">[id number]</td><td ID="MedicationNpid_5">[id number]</td><td ID="MedicationAuthorFirstName_5">Dane</td><td ID="MedicationAuthorLastName_5">Loida</td><td ID="MedicationTaxonomyCode_5">[id number]</td><td ID="MedicationTaxonomyDesc_5">Psychiatric/Mental Health</td><td ID="MedicationPhoneNumber_5">[phone]</td> [facility] ([facility]) Aristada Aristada 12/20/2019 12:00:00 AM EST mg/3.9 completed <td ID="MedicationRxNorm_3">7585047</td><td ID="MedicationMedication_3">Aristada</td><td ID="MedicationRoute_3">intramuscularly</td><td ID="MedicationRouteConcept_3"></td><td ID="MedicationStartDate_3">12/20/2019</td><td ID="MedicationStopDate_3">09/12/2020</td><td ID="MedicationDosageFrequency_3"></td><td ID="MedicationDuration_3"></td><td ID="MedicationFormulaStrength_3">1,064 mg/3.9 mL</td><td ID="MedicationDosageForm_3">suspension,extended rel syring</td><td ID="MedicationDosageFormCode_3"></td><td ID="MedicationDosageDescription_3">as directed</td><td ID="MedicationMedicationId_3">52761</td><td ID="MedicationAccount_3">[id number]</td><td ID="MedicationNpid_3">[id number]</td><td ID="MedicationAuthorFirstName_3">Dane</td><td ID="MedicationAuthorLastName_3">Loida</td><td ID="MedicationTaxonomyCode_3">[id number]</td><td ID="MedicationTaxonomyDesc_3"> Psychiatric/Mental Health</td><td ID="MedicationPhoneNumber_3">[phone]</td> [facility] ([facility]) Trazodone Hydrochloride 50 MG Oral Tablet trazodone 2018 12:00:00 AM EDT 50 mg by mouth completed <td ID="Medic ationRxNorm_2">256466</td><td ID="MedicationMedication_2">trazodone</td><td ID="MedicationRoute_2">by mouth</td><td ID="MedicationRouteConcept_2">J47999</td><td ID="MedicationStartDate_2">06/10/2019</td><td ID="MedicationStopDate_2">09/12/2020</td><td ID="MedicationDosageFrequency_2">at bedtime</td><td ID="MedicationDuration_2"></td><td ID="MedicationFormulaStrength_2">50 mg</td><td ID="MedicationDosageForm_2">tablet</td><td ID="MedicationDosageFormCode_2"></td><td ID="MedicationDosageDescription_2"></td><td ID="MedicationMedicationId_2">[id number]</td><td ID="MedicationAccount_2">[id number]</td><td ID="MedicationNpid_2">[id number]</td><td ID="MedicationAuthorFirstName_2">Dane</td><td ID="MedicationAuthorLastName_2">[place]</td><td ID="MedicationTaxonomyCode_2">[id number]</td><td ID="MedicationTaxonomyDesc_2">Psychiatric/Mental Health</td><td ID="MedicationPhoneNumber_2">[phone]</td> [facility] ([facility]) Amantadine Hydrochloride 100 MG Oral Capsule amantadine HCl 07/30/2017 12:00:00 AM EDT 100 mg by mouth completed <td ID="MedicationRxNorm_1">718130</td><td ID="MedicationMedication_1">amantadine HCl</td><td ID="MedicationRoute_1">by mouth</td><td ID="MedicationRouteConcept_1">T04649</td><td ID="MedicationStartDate_1">07/30/2017</td><td ID="MedicationStopDate_1">09/12/2020</td><td ID="MedicationDosageFrequency_1">every morning</td><td ID="MedicationDuration_1"></td><td ID="MedicationFormulaStrength_1">100 mg</td><td ID="MedicationDosageForm_1">capsule</td><td ID="MedicationDosageFormCode_1"></td><td ID="MedicationDosageDescription_1"></td><td ID="MedicationMedicationId_1">[id number]</td><td ID="MedicationAccount_1">[id number]</td><td ID="MedicationNpid_1">[id number]</td><td ID="MedicationAuthorFirstName_1">Dane</td><td ID="MedicationAuthorLastName_1">Loida</td><td ID="MedicationTaxonomyCode_1">[id number]</td><td ID="MedicationTaxonomyDesc_1">Psychiatric/Mental Health</td><td ID="MedicationPhoneNumber_1">[phone]</td> [facility] ([facility]) Insurance Providers Payer name Policy type / Coverage type Policy ID Covered republican ID Covered republican's relationship to shafer Policy Shafer Plan Information Medicaid S [id number] S [id number] Managed Care - Community Plan [facility] P [id number] S [id number] Medicaid S [id number] S [id number] UH I [id number] Self [id number] UHC I [id number] Self [id number] UH I [id number] Self [id number] Managed Care - UHC Community Plan P [id number] S [id number] Medicaid S [id number] S [id number] Managed Care - UHC Community Plan P [id number] S [id number] [facility] [id number] SP [id number] [facility] MAN CRE [id number] SP [id number] [facility] [id number] SP [id number] SELF PAY [facility] OFFICE OF MENTAL HE[facility] UNAVAILABLE S UNAVAILABLE MEDICAID [id number] S [id number] [facility] OFFICE OF MENTAL HEALTH [id number] S [id number] UNHC COMMUNITY PLAN [facility]CD[facility] [id number] SP [id number] [facility] OFFICE OF MENT[facility]ALTH [id number] S [id number] [facility] [id number] SP [id number] SELF PAY ONLY [id number] SP [id number] [facility] [id number] SP [id number] SELF PAY SP [facility] O [id number] S [id number] [facility] [id number] SP [id number] Self Pay P [facility]) O [id number] S [id number] [facility] [id number] SP [id number] MEDICAID [id number] SP [id number] [facility] COMMUNITY PLAN [facility] [id number] SP [id number] MEDICAID [id number] SP [id number] Problems, Conditions, and Diagnoses Code Display Name Description Problem Type Effective Dates Data Source(s) F11.10 Opioid abuse, uncomplicated F11.10 - Opioid abus e, uncomplicated Diagnosis 02/27/2021 08:12:00 PM EDT [facility] 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, uncomplicated F16.10 - Hallucinogen abuse, uncomplicated Diagnosis 02/27/2021 08:12:00 PM EDT [facility] F25.9 Schizoaffective disorder, unspecified F2 5.9 - Schizoaffective disorder, unspecified Diagnosis 02/27/2021 08:12:00 PM EDT [facility] Z13.9 Encounter for screening, unspecified Z13 .9 - Encounter for screening, unspecified Diagnosis 02/27/2021 08:12:[facility], hallucinations, substance abuse schizophrenia, hallucinations, substance abuse Diagnosis 09/22/2020 02:27:00 PM [facility] F15.20 Other stimulant dependence, uncomplicate d Stimulant Use Disorder, Moderate: Amphetamine-type substance Condition 09/02/2021 12:00:00 AM EDT [facility] ([facility]) F10.20 Alcohol dependence, uncomplicated Alcohol Use Disorder , Severe Condition 09/02/2021 12:00:00 AM EDT [facility] ([facility]) F17.200 Nicotine dependence, unspecified, uncomp licated Tobacco Use Disorder, Moderate Condition 09/02/2021 12:00:00 AM EDT [facility] ([facility]) F12.20 Cannabis dependence, uncomplicated Cannabis Use Disorder, Moderate Condition 09/02/2021 12:00:00 AM EDT [facility] ([facility]) F20.9 Schizophrenia, unspecified Schizophrenia Condition 09/02/2021 12:00:00 AM EDT [facility] ([facility]) Surgeries/Procedures Procedure Description Date Indications Data Source(s) THERAPEUTIC PROPHYLACTIC/DX INJECTION SUBQ/IM 09/02/2021 12:00:00 AM EDT - 09/02/2021 12:00:00 AM EDT [facility] ([facility]) THERAPEUTIC PROPHYLACTIC/DX INJECTION SUBQ/IM 09/02/20 12:00:00 AM EDT [facility] ([facility]) Comprehensive medication services, per 15 minutes 07/29/2021 12:00:00 AM EDT - 07/29/2021 12:00:00 AM EDT [facility] ([facility]) Comprehensive medication services, per 15 minutes 07/29/2021 12:00:00 AM EDT [facility] ([facility]) Comprehensive medication services, per 15 minutes 06/24/2021 12:00:00 AM EDT - 06/24/2021 12:00:00 AM EDT [facility] ([facility]) Comprehensive medication services, per 15 minutes 06/24/2021 12:00:00 AM EDT [facility] ([facility]) THERAPEUTIC PROPHYLACTIC/DX INJECTION SUBQ/IM 05/27/2021 12:00:00 AM EDT - 05/27/2021 12:00:00 AM EDT [facility] ([facility]) THERAPEUTIC PROPHYLACTIC/DX INJECTION SUBQ/IM 05/27/20 12:00:00 AM EDT [facility] ([facility]) Brief Individual Psychotherapy - 30 min 05/13/2021 12:00:00 AM EDT - 05/13/2021 12:00:00 AM EDT [facility] ([facility]) Brief Individual Psychotherapy - 30 min 05/13/2021 12: 00:00 AM EDT [facility] ([facility]) Comprehensive medication services, per 15 minutes 04/04/2021 12:00:00 AM EDT - 04/04/2021 12:00:00 AM EDT [facility] ([facility]) Comprehensive medication services, per 15 minutes 04/03/2021 12:00:00 AM EDT [facility] ([facility]) OFFICE OUTPATIENT VISIT 15 MINUTES 04/03 12:00:00 AM EDT - 04/03/2021 12:00:00 AM EDT [facility] ([facility]) Psychotherapy ADD ON - 30 Minutes 04/03/2021 12:00:00 AM EDT [facility] ([facility]) OFFICE OUTPATIENT VISIT 15 MINUTES 04/03/2021 12:00:00 AM EDT [facility] ([facility]) OFFICE OUTPATIENT VISIT 15 MINUTES 03/27 12:00:00 AM EDT - 03/27/2021 12:00:00 AM EDT [facility] ([facility]) OFFICE OUTPATIENT VISIT 15 MINUTES 03/27/2021 12:00:00 AM EDT [facility] ([facility]) OFFICE OUTPATIENT VISIT 15 MINUTES 03/19 12:00:00 AM EDT - 03/19/2021 12:00:00 AM EDT [facility] ([facility]) OFFICE OUTPATIENT VISIT 15 MINUTES 03/19/2021 12:00:00 AM EDT [facility] ([facility]) OFFICE OUTPATIENT VISIT 15 MINUTES 02/12 12:00:00 AM EDT - 02/12/2021 12:00:00 AM EDT [facility] ([facility]) OFFICE OUTPATIENT VISIT 15 MINUTES 02/12/2021 12:00:00 AM EDT [facility] ([facility]) OFFICE OUTPATIENT VISIT 15 MINUTES 02/07 12:00:00 AM EDT - 02/07/2021 12:00:00 AM EDT [facility] ([facility]) OFFICE OUTPATIENT VISIT 15 MINUTES 02/07/2021 12:00:00 AM EDT [facility] ([facility]) Brief Individual Psychotherapy - 30 min 02/01/2021 12:00:00 AM EDT - 02/01/2021 12:00:00 AM EDT [facility] ([facility]) Brief Individual Psychotherapy - 30 min 02/01/2021 12: 00:00 AM EDT [facility] ([facility]) OFFICE OUTPATIENT VISIT 15 MINUTES 01/23 12:00:00 AM EDT - 01/23/2021 12:00:00 AM EDT [facility] ([facility]) OFFICE OUTPATIENT VISIT 15 MINUTES 01/23/2021 12:00:00 AM EDT [facility] ([facility]) THERAPEUTIC PROPHYLACTIC/DX INJECTION SUBQ/IM 01/23/2021 12:00:00 AM EDT - 01/23/2021 12:00:00 AM EDT [facility] ([facility]) THERAPEUTIC PROPHYLACTIC/DX INJECTION SUBQ/IM 01/24/20 12:00:00 AM EDT [facility] ([facility]) Comprehensive medication services, per 15 minutes 01/18/2021 12:00:00 AM EDT - 01/18/2021 12:00:00 AM EDT [facility] ([facility]) Comprehensive medication services, per 15 minutes 01/18/2021 12:00:00 AM EDT [facility] ([facility]) OFFICE OUTPATIENT VISIT 15 MINUTES 01/17 12:00:00 AM EDT - 01/17/2021 12:00:00 AM EDT [facility] ([facility]) OFFICE OUTPATIENT VISIT 15 MINUTES 01/17/2021 12:00:00 AM EDT [facility] ([facility]) MHC Telemed E/M Lvl 3--Est pt 01/01/2021 12:00:00 AM EST - 01/01/2021 12:00:00 AM EST [facility] ([facility]) MHC Telemed E/M Lvl 3--Est pt 01/01/2021 12:00:[address] [facility] ([facility]) THERAPEUTIC PROPHYLACTIC/DX INJECTION SUBQ/IM 12/28/2020 12:00:00 AM EST - 12/28/2020 12:00:00 AM EST [facility] ([facility]) THERAPEUTIC PROPHYLACTIC/DX INJECTION SUBQ/IM 12/28/19 21 12:00:00 AM EST [facility] ([facility]) MHC Telemed E/M Lvl 3--Est pt 12/20/2020 12:00:00 AM EST - 12/20/2020 12:00:00 AM EST [facility] ([facility]) MHC Telemed E/M Lvl 3--Est pt 12/20/2020 12:00:[address] [facility] ([facility]) MHC Telemed E/M Lvl 3--Est pt 12/06/2020 12:00:00 AM EST - 12/06/2020 12:00:00 AM EST [facility] ([facility]) MHC Telemed E/M Lvl 3--Est pt 12/06/2020 12:00:[address] [facility] ([facility]) Comprehensive medication services, per 15 minutes 11/15/2020 12:00:00 AM EST - 11/15/2020 12:00:00 AM EST [facility] ([facility]) Comprehensive medication services, per 15 minutes 11/15/2020 12:00:00 AM EST [facility] ([facility]) OFFICE OUTPATIENT VISIT 15 MINUTES 11/15 12:00:00 AM EST - 11/15/2020 12:00:00 AM EST [facility] ([facility]) OFFICE OUTPATIENT VISIT 15 MINUTES 11/15/2020 12:00:00 AM EST [facility] ([facility]) THERAPEUTIC PROPHYLACTIC/DX INJECTION SUBQ/IM 10/18/2020 12:00:00 AM EST - 10/18/2020 12:00:00 AM EST [facility] ([facility]) THERAPEUTIC PROPHYLACTIC/DX INJECTION SUBQ/IM 10/18/20 20 12:00:00 AM EST [facility] ([facility]) THERAPEUTIC PROPHYLACTIC/DX INJECTION SUBQ/IM 10/15/2020 12:00:00 AM EST - 10/15/2020 12:00:00 AM EST [facility] ([facility]) THERAPEUTIC PROPHYLACTIC/DX INJECTION SUBQ/IM 10/15/20 20 12:00:00 AM EST [facility] ([facility]) THERAPEUTIC PROPHYLACTIC/DX INJECTION SUBQ/IM 10/04/2020 12:00:00 AM EST - 10/04/2020 12:00:00 AM EST [facility] ([facility]) THERAPEUTIC PROPHYLACTIC/DX INJECTION SUBQ/IM 10/04/20 20 12:00:00 AM EST [facility] ([facility]) OFFICE OUTPATIENT VISIT 15 MINUTES 10/04 12:00:00 AM EST - 10/04/2020 12:00:00 AM EST [facility] ([facility]) OFFICE OUTPATIENT VISIT 15 MINUTES 10/04/2020 12:00:00 AM EST [facility] ([facility]) OFFICE OUTPATIENT VISIT 15 MINUTES 09/12 12:00:00 AM EST - 09/12/2020 12:00:00 AM EST [facility] ([facility]) OFFICE OUTPATIENT VISIT 15 MINUTES 09/12/2020 12:00:00 AM EST [facility] ([facility]) THERAPEUTIC PROPHYLACTIC/DX INJECTION SUBQ/IM 09/12/2020 12:00:00 AM EST - 09/12/2020 12:00:00 AM EST [facility] ([facility]) THERAPEUTIC PROPHYLACTIC/DX INJECTION SUBQ/IM 09/12/20 20 12:00:00 AM EST [facility] ([facility]) OFFICE OUTPATIENT VISIT 15 MINUTES 08/10 12:00:00 AM EDT - 08/10/2020 12:00:00 AM EDT [facility] ([facility]) OFFICE OUTPATIENT VISIT 15 MINUTES 08/10/2020 12:00:00 AM EDT [facility] ([facility]) THERAPEUTIC PROPHYLACTIC/DX INJECTION SUBQ/IM 07/13/2020 12:00:00 AM EDT - 07/13/2020 12:00:00 AM EDT [facility] ([facility]) THERAPEUTIC PROPHYLACTIC/DX INJECTION SUBQ/IM 07/13/20 20 12:00:00 AM EDT [facility] ([facility]) Results ID Date Data Source [id number] 07/19/2021 10:40:00 AM EDT [facility] Name Value Range Interpretation Code Description Data Michelle rce(s) Supporting Document(s) SARS coronavirus 2 RNA [Presence] in Res piratory specimen by [facility]MI with probe detection NEGATIVE [facility] This lab was ordered by [facility] a nd reported by [facility]. ID Date Data Source [id number] 07/19/2021 09:50:00 AM EDT [facility] Name Value Range Interpretation Code Description Data Michelle rce(s) Supporting Document(s) SARS COVID ANTIGEN NEGATIVE [facility] This lab was ordered by [facility] a nd reported by [facility]. ID Date Data Source [id number] 06/04/2021 08:17:00 PM EDT [facility] Name Value Range Interpretation Code Description Data Michelle rce(s) Supporting Document(s) SARS coronavirus 2 RNA [Presence] in Res piratory specimen by OMI with probe detection NEGATIVE [facility] This lab was ordered by [facility] a nd reported by [facility]. ID Date Data Source [id number] 05/01/2021 01:57:00 PM EDT [facility] Name Value Range Interpretation Code Description Data Michelle rce(s) Supporting Document(s) SARS coronavirus 2 RNA [Presence] in Res piratory specimen by OMI with probe detection NEGATIVE [facility] This lab was ordered by [facility] a nd reported by [facility]. ID Date Data Source [id number] 04/19/2021 06:29:00 AM EDT [facility] Name Value Range Interpretation Code Description Data Michelle rce(s) Supporting Document(s) SARS coronavirus 2 RNA [Presence] in Res piratory specimen by OMI with probe detection NEGATIVE [facility] This lab was ordered by [facility] a nd reported by [facility]. ID Date Data Source [id number] 04/17/2021 05:50:00 PM EDT [facility] Name Value Range Interpretation Code Description Data Michelle rce(s) Supporting Document(s) SARS-CoV-2 (COVID-19) RNA [Presence] in Respiratory specimen by OMI with probe detection Not Detected [facility] This lab was ordered by [facility] and reported by [facility]. ID Date Data Source [id number] 02/28/2021 04:53:00 PM EDT [address] [address] HEALTH INFORMATION MANAGEMENT History and Physical Report : [id number] Signed Patient: Gabo Parra Acct:[id number] Unit: Low [id number] : 1980 Loc: [facility] Room/Bed: 820 Age/Sex: 40 / M ADM [...] charges for this visit?: Yes Inpt Consult [id number] Cons Level 1: Yes Signed By:Rambo Summers <<Signature on File>> Signed Date/Time: 02/28/211657 Co-Signer: Leonel Hubbard MD Co-Signed Date/Time: 02/28/211724 Initializing User: Rambo Summers NP 02/28/211652 52 52 Name Value Range Interpretation Code Description Data Michelle rce(s) Supporting Document(s) ID Date Data Source [id number] 02/28/2021 10:45:00 AM [facility] [address] [place] [address] HEALTH INFORMATION MANAGEMENT [facility] Psychosocial Summary : [id number] Signed Patient: Gabo Parra Acct:[id number] Unit: M [id number] : 1980 Loc: [facility] Room/Bed: 820B Age/Sex: 40 / M ADM Date: 02/27/21 cc: General/History - Presenting Problem Presenting Problem: Social Summary/Discharge plan Presenting Problem Gabo is a40 yo AAM, extensive psych hx, also problems with substance abuse admitted on a transfer from [facility] ER brought in there by his CW as pt was feeling depressed, suicidal, also hallucinating and after abusing drugs History. tates was partially complaint with meds. Not able to name his psychiatrist in [place], not able to name the therapist. Gives h/o 5 to 6 inpt psych txs, last one few months ago, "I can't remember the place, they send me from [facility]. " Also, h'o inpt psych tx at [facility]. H/o self harm time, tried to [...] Person?: No Are you part of any yazidism/spirtual community?: Yes (Mandaen ) - Current Living/Relationship History Current Living [...] Reducing Risk: Complies with Tx/Meds, Future Oriented, Buddhist Beliefs Mental Status Treatment - Mental Status [...] rce(s) Supporting Document(s) ID Date Data Source [id number] 02/27/2021 04:28:00 PM EDT [facility] Name Value Range Interpretation Code Description Data Michelle rce(s) Supporting Document(s) SARS coronavirus 2 RNA [Presence] in Res piratory specimen by [facility]MI with probe detection NEGATIVE [facility] This lab was ordered by [facility] a nd reported by [facility]. ID Date Data Source [id number] 01/23/2021 01:03:00 AM EDT [facility] Name Value Range Interpretation Code Description Data Michelle rce(s) Supporting Document(s) SARS coronavirus 2 RNA [Presence] in Res piratory specimen by [facility]MI with probe detection NEGATIVE [facility] This lab was ordered by [facility] a nd reported by [facility]. ID Date Data Source [id number] 10/17/2020 12:19:00 AM EST [facility] Name Value Range Interpretation Code Description Data Michelle rce(s) Supporting Document(s) SARS coronavirus 2 RNA [Presence] in Res piratory specimen by [facility]MI with probe detection [facility] This lab was ordered by [facility] a nd reported by [facility]. Procedure Social History Code Duration Value Status Description Data Source(s ) Smoking 09/02/2021 12:00:00 AM EDT Unknown if ever smoked comp leted Unknown if ever smoked [facility] ([facility]) Smoking 07/29/2021 12:00:00 AM EDT Unknown if ever smoked comp leted Unknown if ever smoked [facility] ([facility]) Smoking 06/24/2021 12:00:00 AM EDT Unknown if ever smoked comp leted Unknown if ever smoked [facility] ([facility]) Smoking 05/27/2021 12:00:00 AM EDT Unknown if ever smoked comp leted Unknown if ever smoked [facility] ([facility]) Smoking 05/13/2021 12:00:00 AM EDT Unknown if ever smoked comp leted Unknown if ever smoked [facility] ([facility]) Smoking 04/04/2021 12:00:00 AM EDT Unknown if ever smoked comp leted Unknown if ever smoked [facility] ([facility]) Smoking 04/03/2021 12:00:00 AM EDT Unknown if ever smoked comp leted Unknown if ever smoked [facility] ([facility]) Smoking 03/27/2021 12:00:00 AM EDT Unknown if ever smoked comp leted Unknown if ever smoked [facility] ([facility]) Smoking 03/19/2021 12:00:00 AM EDT Unknown if ever smoked comp leted Unknown if ever smoked [facility] ([facility]) Smoking 02/12/2021 12:00:00 AM EDT Unknown if ever smoked comp leted Unknown if ever smoked [facility] ([facility]) Smoking 02/07/2021 12:00:00 AM EDT Unknown if ever smoked comp leted Unknown if ever smoked [facility] ([facility]) Smoking 02/01/2021 12:00:00 AM EDT Unknown if ever smoked comp leted Unknown if ever smoked [facility] ([facility]) Smoking 01/23/2021 12:00:00 AM EDT Unknown if ever smoked comp leted Unknown if ever smoked [facility] ([facility]) Smoking 01/18/2021 12:00:00 AM EDT Unknown if ever smoked comp leted Unknown if ever smoked [facility] ([facility]) Smoking 01/17/2021 12:00:00 AM EDT Unknown if ever smoked comp leted Unknown if ever smoked [facility] ([facility]) Smoking 01/01/2021 12:00:00 AM EST Unknown if ever smoked comp leted Unknown if ever smoked [facility] ([facility]) Smoking 12/28/2020 12:00:00 AM EST Unknown if ever smoked comp leted Unknown if ever smoked [facility] ([facility]) Smoking 12/20/2020 12:00:00 AM EST Unknown if ever smoked comp leted Unknown if ever smoked [facility] ([facility]) Smoking 12/06/2020 12:00:00 AM EST Unknown if ever smoked comp leted Unknown if ever smoked [facility] ([facility]) Smoking 11/15/2020 12:00:00 AM EST Unknown if ever smoked comp leted Unknown if ever smoked [facility] ([facility]) Smoking 10/18/2020 12:00:00 AM EST Unknown if ever smoked comp leted Unknown if ever smoked [facility] ([facility]) Smoking 10/15/2020 12:00:00 AM EST Unknown if ever smoked comp leted Unknown if ever smoked [facility] ([facility]) Smoking 10/04/2020 12:00:00 AM EST Unknown if ever smoked comp leted Unknown if ever smoked [facility] ([facility]) Smoking 09/12/2020 12:00:00 AM EST Unknown if ever smoked comp leted Unknown if ever smoked [facility] ([facility]) Smoking 08/10/2020 12:00:00 AM EDT Unknown if ever smoked comp leted Unknown if ever smoked [facility] ([facility]) Smoking 07/13/2020 12:00:00 AM EDT Unknown if ever smoked comp leted Unknown if ever smoked [facility] ([facility]) Vital Signs ID Date Data Source UNK Name Value Range Interpretation Code Description Data Source(s) Body height 0.00 in Normal (applies to non-numeric resu lts) 0.00 in [facility] ([facility]) Body weight Measured 0.00 lbs Normal (applies to n on-numeric results) 0.00 lbs [facility] ([facility]) Body mass index (BMI) [Ratio] 0.00 kg/m2 No rmal (applies to non-numeric results) 0.00 kg/m2 [facility] ([facility]) Systolic blood pressure 0 mm[Hg] Normal (applies t o non-numeric results) 0 mm[Hg] [facility] ([facility]) Diastolic blood pressure 0 mm[Hg] Normal (applies to non-numeric results) 0 mm[Hg] [facility] ([facility]) Body height 0.00 in Normal (applies to non-numeric resu lts) 0.00 in [facility] ([facility]) Body weight Measured 0.00 lbs Normal (applies to n on-numeric results) 0.00 lbs [facility] ([facility]) Body mass index (BMI) [Ratio] 0.00 kg/m2 No rmal (applies to non-numeric results) 0.00 kg/m2 [facility] ([facility]) Systolic blood pressure 0 mm[Hg] Normal (applies t o non-numeric results) 0 mm[Hg] [facility] ([facility]) Diastolic blood pressure 0 mm[Hg] Normal (applies to non-numeric results) 0 mm[Hg] [facility] ([facility]) Body height 0.00 in Normal (applies to non-numeric resu lts) 0.00 in [facility] ([facility]) Body weight Measured 0.00 lbs Normal (applies to n on-numeric results) 0.00 lbs [facility] ([facility]) Body mass index (BMI) [Ratio] 0.00 kg/m2 No rmal (applies to non-numeric results) 0.00 kg/m2 [facility] ([facility]) Systolic blood pressure 0 mm[Hg] Normal (applies t o non-numeric results) 0 mm[Hg] [facility] ([facility]) Diastolic blood pressure 0 mm[Hg] Normal (applies to non-numeric results) 0 mm[Hg] [facility] ([facility]) Body height 0.00 in Normal (applies to non-numeric resu lts) 0.00 in [facility] ([facility]) Body weight Measured 0.00 lbs Normal (applies to n on-numeric results) 0.00 lbs [facility] ([facility]) Body mass index (BMI) [Ratio] 0.00 kg/m2 No rmal (applies to non-numeric results) 0.00 kg/m2 [facility] ([facility]) Systolic blood pressure 0 mm[Hg] Normal (applies t o non-numeric results) 0 mm[Hg] [facility] ([facility]) Diastolic blood pressure 0 mm[Hg] Normal (applies to non-numeric results) 0 mm[Hg] [facility] ([facility]) ID Date Data Source [id number] 09/22/2020 02:27:59 PM [facility] Name Value Range Interpretation Code Description Data Source(s) TRANSFER FROM [facility]
[2021-09-08 10:18] LABS: HEMATOCRIT 42.4 % (42.0-52.0); HEMOGLOBIN 13.8 g/dl (13.5-17.5); MEAN CORPUSCULAR HEMOGLOBIN 29.9 pg (27.0-33.0); MEAN CORPUSCULAR HGB CONC 32.5 g/dl (32.0-36.5); PLATELET COUNT, AUTOMATED 275 10^3/uL (150-450); RED BLOOD COUNT 4.61 10^6/uL (4.30-6.10); WHITE BLOOD COUNT 8.7 10^3/uL (4.0-10.0)
[2021-09-08 11:00] LABS: ACETAMINOPHEN LEVEL < 2.0 UG/ML (10.0-30.0); ALBUMIN 3.3 GM/DL (3.2-5.2); ALT/SGPT 43 U/L (12-78); BILIRUBIN,DIRECT 0.1 MG/DL (0.0-0.2); BILIRUBIN,TOTAL 0.3 MG/DL (0.2-1.0); BLOOD UREA NITROGEN 15 MG/DL (7-18); CALCIUM LEVEL 8.8 MG/DL (8.5-10.1); CARBON DIOXIDE LEVEL 30 MEQ/L (21-32); CHLORIDE LEVEL 107 MEQ/L (98-107); CREATININE FOR GFR 0.89 MG/DL (0.70-1.30); ETHYL ALCOHOL (ETHANOL) < 0.003 % (0.000-0.010); GLOMERULAR FILTRATION RATE > 60.0 (>60); GLUCOSE, FASTING 74 MG/DL (70-100); SALICYLATE LEVEL 2.5 MG/DL (5.0-30.0); SODIUM LEVEL 140 MEQ/L (136-145); THYROID STIMULATING HORMONE 0.612 uIU/ML (0.358-3.740); TOTAL PROTEIN 7.1 GM/DL (6.4-8.2)
[2021-09-08 11:57] LABS: AMPHETAMINES LEVEL URINE NEGATIVE (NEGATIVE); BARBITURATES URINE NEGATIVE (NEGATIVE); BENZODIAZEPINES URINE NEGATIVE (NEGATIVE); CANNABINOIDS URINE NEGATIVE (NEGATIVE); COCAINE METABOLITE URINE NEGATIVE (NEGATIVE); METHADONE URINE NEGATIVE (NEGATIVE); OPIATES URINE NEGATIVE (NEGATIVE); PHENCYCLIDINE URINE NEGATIVE (NEGATIVE)
== END 2021-09-08 12:38 | disposition home or self-care (01) ==
LOC: M ED 08:33
DX: F20.9 Schizophrenia, unspecified (principal); I10 Essential (primary) hypertension; F19.10 Other psychoactive substance abuse, uncomplicated; Z79.899 Other long term (current) drug therapy

== ENCOUNTER 2021-09-10 01:03 | Emergency (ER) | payer OTHER ==
[~2021-09-10] VITALS: Ht 167.6 cm; Wt 73.5 kg
--- OUTSIDE RECORDS SUMMARY | 2021-09-10 01:11 | CCD ---
Author Author [facility] Organization [facility] Address Unknown Phone Unavailable Support Name Relationship Address Phone Hudson GUTIERREZ, Pasha Next Of Kin [address] [place] [address] Diamante Costa Next Of Kin [address] [place] [address] Dwain Joseph DO Next Of Kin [address] [place] [address] Cameron Bingham MD Next Of Kin [address] [place] [address] SELFGARY Next Of Kin [address] [place] [address] YONI JACK Next Of Kin [address] [place] [address] CORRECTIONAL, [place] Next Of Kin [address] [place] [address] Monique Conklin MD Next Of Kin [address] [place] [phone] YONI CALHOUN Next Of Kin [address] [place] [address] Isabelle Manning Next Of Kin [address] [place] [address] Pat Gallo DO Next Of Kin [address] [place] [address] DISABLED Next Of Kin Unknown Unavailable Merrick Self Next Of Kin [address] [place] [phone] SELF, JUNIOR Next Of Kin [address] [place] [address] UE Next Of Kin Unknown Unavailable SIMON WALL Next Of Kin [address] [place] [address] SELF, JUNIOR [address]CON [address] [place] [address] Unavailable Care Team Providers Care Accounts Receivable Coordinator Name Role Phone Farden, M Rambo [...] Unavailable Unavailable Farden, M Rambo Unavailable Unavailable BILAL, JONNATHAN GUTIERREZ Unavailable Unavailable BILAL, JONNATHAN GUTIERREZ Unavailable Unavailable BILAL, JONNATHAN GUTIERREZ Unavailable Unavailable BILAL, JONNATHAN GUTIERREZ Unavailable Unavailable BILAL, JONNATHAN GUTIERREZ Unavailable Unavailable BILAL, JONNATHAN GUTIERREZ Unavailable Unavailable BILAL, JONNATHAN GUTIERREZ Unavailable Unavailable BILAL, JONNATHAN GUTIERREZ Unavailable Unavailable BILAL, JONNATHAN GUTIERREZ Unavailable Unavailable BILAL, JONNATHAN GUTIERREZ Unavailable Unavailable Gina Nash Unavailable AMILCAR, H ANSELMO UTILITY WORKER FORGE Unavailable Unavailable AMILCAR, H ANSELMO UTILITY WORKER FORGE Unavailable Unavailable AMILCAR, H ANSELMO UTILITY WORKER FORGE Unavailable Unavailable AMILCAR, H ANSELMO UTILITY WORKER FORGE Unavailable Unavailable AMILCAR, H ANSELMO UTILITY WORKER FORGE Unavailable Unavailable AMILCAR, H ANSELMO UTILITY WORKER FORGE Unavailable Unavailable AMILCAR, H ANSELMO UTILITY WORKER FORGE Unavailable Unavailable AMILCAR, H ANSELMO UTILITY WORKER FORGE Unavailable Unavailable AMILCAR, H ANSELMO UTILITY WORKER FORGE Unavailable Unavailable Jossie Marcelino Unavailable Rotella, Jossy [...] Unavailable Solomon Treviño MD Unavailable Unavailable EscobarBonifacio MD Unavailable Unavailable EscobarBonifacio MD Unavailable Unavailable Escobar, E Victorino GUTIERREZ Unavailable Unavailable Escobar, E Victorino GUTIERREZ Unavailable Unavailable Pam Juarez Unavailable SYSTEM IN, NOT PROVIDER Unavailable Unavailable EGORHO, F KALLI FPMHNP Unavailable [...] is protected by Article 27-F of the [facility] Public Health law. If you continue you may have access to information: Regarding HIV / AIDS; Provided by facilities licensed or operated by the [facility] Office of Mental Health; or Provided by the [facility] Office for People With Developmental Disabilities. If such information is present, then the following [facility] mandated warning applies: This information has [...] law may result in a fine or custodial sentence or both. A general authorization for the release of medical or other information is NOT sufficient authorization for further disc losure. Allergies and Adverse Reactions Type Description Substance Reaction Status Data Source(s ) Drug allergy No Known Allergies No Known Allergies [facility] Propensity to adverse reactions NO KNOWN ALLERGIES NO KNOWN ALLERGIES [facility] Encounters Encounter Providers Location Date Indications Data Source(s ) Injectable Psychotropic Medication Administration (Inj ection Only) Attender: Thalia Carreno [facility] 09/02/2021 10:30:00 AM EDT - 09/02/2021 10:30:00 AM EDT [facility] ([facility]) Attender: Thalia Carreno 09/02/2021 12:00:00 AM EDT [facility] ([facility]) Injectable Medication Administration w/ Monitoring & E ducation [facility] 02:30:00 AM EDT - 07/29/2021 02:30:00 AM EDT [facility] ([facility]) Attender: Pam Juarez 07/29/2021 12:00:00 AM EDT [facility] ([facility]) Injectable Medication Administration w/ Monitoring & E ducation Attender: Thalia MullerAlphonso [facility] 06/24/2021 10:45:00 AM EDT - 06/24/2021 10:45:00 AM EDT [facility] ([facility]) Attender: Thalia Carreno 06/24/2021 12:00:00 AM EDT [facility] ([facility]) Injectable Psychotropic Medication Administration (Inj ection Only) Attender: Thalia Carreno [facility] 05/27/2021 08:15:00 AM EDT - 05/27/2021 08:15:00 AM EDT [facility] ([facility]) Attender: Thalia Carreno 05/27/2021 12:00:00 AM EDT [facility] ([facility]) Brief Individual Psychotherapy - 30 min Attender: Gina yun [facility] 05/13/2021 08:30:00 AM EDT - 05/13/2021 08:30:00 AM EDT [facility] ([facility]) Attender: Gina Nash 05/13/2021 12:00:00 AM EDT [facility] ([facility]) Attender: Pam Juarez 04/04/2021 12:00:00 AM EDT [facility] ([facility]) Injectable Medication Administration w/ Monitoring & E ducation Attender: Pam Juarez [facility] 04/03/2021 09:00:00 AM EDT - 04/03/2021 09:00:00 AM EDT [facility] ([facility]) Outpatient Attender: ANSELMO APONTE NP [facility] Mike garcía 04/03/2021 08:30:00 AM EDT - 04/03/2021 08:30:00 AM EDT [facility] ([facility]) Attender: ANSELMO APONTE NP 04/03/2021 12:00:00 AM EDT [facility] ([facility]) Outpatient Attender: ANSELMO APONTE NP [facility] Mike garcía 03/27/2021 11:00:00 AM EDT - 03/27/2021 11:00:00 AM EDT [facility] ([facility]) Attender: ANSELMO APONTE NP 03/27/2021 12:00:00 AM EDT [facility] ([facility]) Outpatient Attender: ANSELMO APONTE NP [facility] Mike garcía 03/19/2021 03:00:00 AM EDT - 03/19/2021 03:00:00 AM EDT [facility] ([facility]) Attender: ANSELMO APONTE NP 03/19/2021 12:00:00 AM EDT [facility] ([facility]) Inpatient Attender: JONNATHAN TRACY MDAdmitter: JONNATHAN TRACY MD 02/27/2021 08:12:00 PM EDT - 03/08/2021 03:27:00 PM EDT Suicidal Ideation / Homicidal Ideation [facility] Suicidal Ideation / Homicidal Ideation Patient discharged. Outpatient Attender: JONNATHAN TRACY MDAdmi tter: JONNATHAN TRACY MDConsultant: JONNATHAN TRACY MD 02/27/2021 08:12:00 PM EDT Suicidal Ideation / H omicidal Ideation [facility] Suicidal Ideation / Homicidal Ideation Outpatient Attender: JONNATHAN TRACY MDAdmi tter: JONNATHAN TRACY MDConsultant: JONNATHAN TRACY MD 02/27/2021 08:12:00 PM EDT Suicidal Ideation / H omicidal Ideation [facility] Suicidal Ideation / Homicidal Ideation Outpatient Attender: Castro ColonAdmitter : JONNATHAN TRACY MDConsultant: JONNATHAN TRACY MD 02/27/2021 08:12:00 PM EDT Suicidal Ideation / H omicidal Ideation [facility] Suicidal Ideation / Homicidal Ideation Outpatient Attender: JONNATHAN TRACY MDAdmi tter: JONNATHAN TRACY MDConsultant: JONNATHAN TRACY MD 02/27/2021 08:12:00 PM EDT Suicidal Ideation / H omicidal Ideation [facility] Suicidal Ideation / Homicidal Ideation Outpatient Attender: JONNATHAN TRACY MDAdmi tter: JONNATHAN TRACY MDConsultant: JONNATHAN TRACY MD 02/27/2021 08:12:00 PM EDT Suicidal Ideation / H omicidal Ideation [facility] Suicidal Ideation / Homicidal Ideation Outpatient Attender: JONNATHAN TRACY MDAdmi tter: JONNATHAN TRACY MDConsultant: JONNATHAN TRACY MD 02/27/2021 08:12:00 PM EDT Suicidal Ideation / H omicidal Ideation [facility] Suicidal Ideation / Homicidal Ideation Outpatient Attender: Castro ColonAdmitter : JONNATHAN TRACY MDConsultant: JONNATHAN TRACY MD 02/27/2021 08:12:00 PM EDT Suicidal Ideation / H omicidal Ideation [facility] Suicidal Ideation / Homicidal Ideation Outpatient Attender: Castro ZayasAdmitter : JONNATHAN TRACY MDConsultant: JONNATHAN TRACY MD 02/27/2021 08:12:00 PM EDT Suicidal Ideation / H omicidal Ideation [facility] Suicidal Ideation / Homicidal Ideation Outpatient Attender: JONNATHAN TRACY MDAdmi tter: JONNATHAN TRACY MDConsultant: JONNATHAN TRACY MD 02/27/2021 08:12:00 PM EDT Suicidal Ideation / H omicidal Ideation [facility] Suicidal Ideation / Homicidal Ideation Outpatient Attender: Rambo Pedroza mitter: JONNATHAN TRACY MDConsultant: JONNATHAN TRACY MD 02/27/2021 08:12:00 PM EDT Suicidal Ideation / H omicidal Ideation [facility] Suicidal Ideation / Homicidal Ideation Outpatient Attender: ANSELMO APONTE NP [facility] Mike garcía 02/12/2021 10:30:00 AM EDT - 02/12/2021 10:30:00 AM EDT [facility] ([facility]) Attender: ANSELMO APONTE NP 02/12/2021 12:00:00 AM EDT [facility] ([facility]) Outpatient Attender: ANSELMO APONTE NP [facility] Mike garcía 02/07/2021 11:30:00 AM EDT - 02/07/2021 11:30:00 AM EDT [facility] ([facility]) Attender: ANSELMO APONTE NP 02/07/2021 12:00:00 AM EDT [facility] ([facility]) Brief Individual Psychotherapy - 30 min Attender: Gina yun [facility] Maria Alejandra 02/01/2021 02:00:00 AM EDT - 02/01/2021 02:00:00 AM EDT [facility] ([facility]) Attender: Gina Nash 02/01/2021 12:00:00 AM EDT [facility] ([facility]) Injectable Psychotropic Medication Administration (Inj ection Only) [facility] 10:00:00 AM EDT - 01/23/2021 10:00:00 AM EDT [facility] ([facility]) Outpatient Attender: ANSELMO APONTE NP [facility] Mike garcía 01/23/2021 09:15:00 AM EDT - 01/23/2021 09:15:00 AM EDT [facility] ([facility]) Attender: ANSELMO APONTE NP 01/23/2021 12:00:00 AM EDT [facility] ([facility]) Attender: Thalia Carreno 01/23/2021 12:00:00 AM EDT [facility] ([facility]) Injectable Medication Administration w/ Monitoring & E ducation Attender: Pam Juarez [facility] 01/18/2021 11:00:00 AM EDT - 01/18/2021 11:00:00 AM EDT [facility] ([facility]) Attender: Pam Juarez 01/18/2021 12:00:00 AM EDT [facility] ([facility]) Outpatient Attender: ANSELMO APONTE NP [facility] Mike garcía 01/17/2021 09:00:00 AM EDT - 01/17/2021 09:00:00 AM EDT [facility] ([facility]) Attender: ANSELMO APONTE NP 01/17/2021 12:00:00 AM EDT [facility] ([facility]) Outpatient Attender: ANSELMO APONTE NP [facility] Mike garcía 01/01/2021 02:30:00 AM EST - 01/01/2021 02:30:00 AM EST [facility] ([facility]) Attender: ANSELMO APONTE NP 01/01/2021 12:00:00 AM EST [facility] ([facility]) Injectable Psychotropic Medication Administration (Inj ection Only) Attender: Josise Marcelino [facility] 12/28/2020 10:30:00 AM EST - 12/28/2020 10:30:00 AM EST [facility] ([facility]) Attender: Jossie Marcelino 12/28/2020 12:00:00 AM EST [facility] ([facility]) Outpatient Attender: Victorino Escobar MD [facility] Mike garcía 12/20/2020 09:30:00 AM EST - 12/20/2020 09:30:00 AM EST [facility] ([facility]) Attender: Victorino Escobar MD 12/20/2020 12:00:00 AM EST [facility] ([facility]) Outpatient Attender: Victorino Escobar MD [facility] 12/06/2020 12:30:00 PM EST - 12/06/2020 12:30:00 PM EST [facility] ([facility]) Attender: Victorino Escobar MD 12/06/2020 12:00:00 AM EST [facility] ([facility]) Injectable Medication Administration w/ Monitoring & E ducation Attender: ORGANIZATION NPI ALIASES [facility] 11/15/2020 11:15: 00 AM EST - 11/15/2020 11:15:00 AM EST [facility] ([facility]) Outpatient Attender: Victorino Escobar MD [facility] 11/15/2020 11:00:00 AM EST - 11/15/2020 11:00:00 AM EST [facility] ([facility]) Attender: ORGANIZATION NPI ALIASES * 11/15/2020 12:00:00 AM EST [facility] ([facility]) Attender: Victorino Escobar MD 11/15/2020 12:00:00 AM EST [facility] ([facility]) Injectable Psychotropic Medication Administration (Inj ection Only) Attender: Jossy Mejia [facility] 10/18/2020 10:30:00 AM EST - 10/18/2020 10:30:00 AM EST [facility] ([facility]) Attender: Jossy Mejia 10/18/2020 12:00:00 AM EST [facility] ([facility]) Injectable Psychotropic Medication Administration (Inj ection Only) Attender: Jossy Mejia [facility] 10/15/2020 11:00:00 AM EST - 10/15/2020 11:00:00 AM EST [facility] ([facility]) Attender: Jossy Mejia 10/15/2020 12:00:00 AM EST [facility] ([facility]) Injectable Psychotropic Medication Administration (Inj ection Only) Attender: Jossy Mejia [facility] 10/04/2020 10:30:00 AM EST - 10/04/2020 10:30:00 AM EST [facility] ([facility]) Outpatient Attender: KALLI MOLINAURSZULA [facility] 10/04/2020 10:00:00 AM EST - 10/04/2020 10:00:00 AM EST [facility] ([facility]) Attender: Jossy Mejia 10/04/2020 12:00:00 AM EST [facility] ([facility]) Attender: KALLI MOLINAURSZULA 10/04/2020 12:00: 00 AM EST [facility] ([facility]) Outpatient Referrer: PROVIDER SYSTEM [place] 09/22/2020 0 2:27:00 PM EST schizophrenia, hallucinations, substance abuse [facility] schizophrenia, hallucinations, substance abuse Injectable Psychotropic Medication Administration (Inj ection Only) Attender: Jossy Mejia [facility] 09/12/2020 09:30:00 AM EST - 09/12/2020 09:30:00 AM EST [facility] ([facility]) Outpatient Attender: KALLI MOLINAURSZULA [facility] 09/12/2020 09:00:00 AM EST - 09/12/2020 09:00:00 AM EST [facility] ([facility]) Attender: KALLI MOLINAURSZULA 09/12/2020 12:00: 00 AM EST [facility] ([facility]) Attender: Jossy Mejia 09/12/2020 12:00:00 AM EST [facility] ([facility]) Outpatient Attender: KALLI IGLESIAS [facility] J abby 08/10/2020 02:00:00 AM EDT - 08/10/2020 02:00:00 AM EDT [facility] ([facility] 12:00: 00 AM EDT [facility] ([facility]) Injectable Psychotropic Medication Administration (Inj ection Only) Attender: Jossy Mejia [facility] 07/13/2020 02:00:00 AM EDT - 07/13/2020 02:00:00 AM EDT [facility] ([facility]) Attender: Jossy Mejia 07/13/2020 12:00:00 AM EDT [facility] ([facility]) Outpatient Attender: Pasha Treviño MD 07/12/2020 02:46:50 PM EDT [facility] Functional Status Medications Medication Brand Name Start Date Product Form Dose Route Admi nistrative Instructions Pharmacy Instructions Status Indications Reaction Description Data Source(s) Prazosin 1 MG Oral Capsule prazosin 07/10/2021 12:00:00 AM EDT 1 mg by mouth completed <td ID="Medicat ionRxNorm_4">467092</td><td ID="MedicationMedication_4">prazosin</td><td ID="MedicationRoute_4">by mouth</td><td ID="MedicationRouteConcept_4">I27353</td><td ID="MedicationStartDate_4">07/10/2021</td><td ID="MedicationStopDate_4">09/30/2021</td><td ID="MedicationDosageFrequency_4">at bedtime</td><td ID="MedicationDuration_4">30</td><td ID="MedicationFormulaStrength_4">1 mg</td><td ID="MedicationDosageForm_4">capsule</td><td ID="MedicationDosageFormCode_4"></td><td ID="MedicationDosageDescription_4"></td><td ID="MedicationMedicationId_4">[id number]</td><td ID="MedicationAccount_4">[id number]</td><td ID="MedicationNpid_4">[id number]</td><td ID="MedicationAuthorFirstName_4">Anselmo</td><td ID="MedicationAuthorLastName_4">Amilcar</td><td ID="MedicationTaxonomyCode_4">[id number]</td><td ID="MedicationTaxonomyDesc_4">Nurse Practitioner</td><td ID="MedicationPhoneNumber_4">[phone]</td> [facility] ([facility]) olanzapine 5 MG Oral Tablet [Zyprexa] Zyprexa 05/23/2021 12:00:00 AM EDT 5 mg by mouth completed <td ID="Medica tionRxNorm_2">[id number]</td><td ID="MedicationMedication_2">Zyprexa</td><td ID="MedicationRoute_2">by mouth</td><td ID="MedicationRouteConcept_2">Y82111</td><td ID="MedicationStartDate_2">05/23/2021</td><td ID="MedicationStopDate_2">09/30/2021</td><td ID="MedicationDosageFrequency_2">at bedtime</td><td ID="MedicationDuration_2">30</td><td ID="MedicationFormulaStrength_2">5 mg</td><td ID="MedicationDosageForm_2">tablet</td><td ID="MedicationDosageFormCode_2"></td><td ID="MedicationDosageDescription_2"></td><td ID="MedicationMedicationId_2">[id number]</td><td ID="MedicationAccount_2">[id number]</td><td ID="MedicationNpid_2">[id number]</td><td ID="MedicationAuthorFirstName_2">Anselmo</td><td ID="MedicationAuthorLastName_2">Amilcar</td><td ID="MedicationTaxonomyCode_2">[id number]</td><td ID="MedicationTaxonomyDesc_2">Nurse Practitioner</td><td ID="MedicationPhoneNumber_2">[phone]</td> [facility] ([facility]) benztropine mesylate 1 MG Oral Tablet benztropine 05/23/2021 12:00 :00 AM EDT 1 mg by mouth completed <td ID="Me dicationRxNorm_3">[id number]</td><td ID="MedicationMedication_3">benztropine</td><td ID="MedicationRoute_3">by mouth</td><td ID="MedicationRouteConcept_3">U16723</td><td ID="MedicationStartDate_3">05/23/2021</td><td ID="MedicationStopDate_3">09/30/2021</td><td ID="MedicationDosageFrequency_3">at bedtime</td><td ID="MedicationDuration_3">30</td><td ID="MedicationFormulaStrength_3">1 mg</td><td ID="MedicationDosageForm_3">tablet</td><td ID="MedicationDosageFormCode_3"></td><td ID="MedicationDosageDescription_3"></td><td ID="MedicationMedicationId_3">[id number]</td><td ID="MedicationAccount_3">[id number]</td><td ID="MedicationNpid_3">[id number]</td><td ID="MedicationAuthorFirstName_3">Anselmo</td><td ID="MedicationAuthorLastName_3">Amilcar</td><td ID="MedicationTaxonomyCode_3">[id number]</td><td ID="MedicationTaxonomyDesc_3">Nurse Practitioner</td><td ID="MedicationPhoneNumber_3">[phone]</td> [facility] ([facility]) 1.5 ML paliperidone palmitate 156 MG/ML Prefilled Syri nge [Invega] Invega Sustenna 04/16/2021 12:00:00 AM EDT 234 mg/1.5 compl eted <td ID="MedicationRxNorm_1">168220</td><td ID="MedicationMedication_1">Invega Sustenna</td><td ID="MedicationRoute_1"></td><td ID="MedicationRouteConcept_1"></td><td ID="MedicationStartDate_1">04/16/2021</td><td ID="MedicationStopDate_1"></td><td ID="MedicationDosageFrequency_1"></td><td ID="MedicationDuration_1"></td><td ID="MedicationFormulaStrength_1">234 mg/1.5 mL</td><td ID="MedicationDosageForm_1">syringe</td><td ID="MedicationDosageFormCode_1"></td><td ID="MedicationDosageDescription_1"> </td><td ID="MedicationMedicationId_1">[id number]</td><td ID="MedicationAccount_1">[id number]</td><td ID="MedicationNpid_1">[id number]</td><td ID="MedicationAuthorFirstName_1">Anselmo</td><td ID="MedicationAuthorLastName_1">Amilcar</td><td ID="MedicationTaxonomyCode_1">[id number]</td><td ID="MedicationTaxonomyDesc_1">Nurse Practitioner</td><td ID="MedicationPhoneNumber_1">[phone]</td> [facility] ([facility]) 2.625 ML paliperidone palmitate 312 MG/ML Prefilled Sy ringe [Invega] Invega Socorroza 04/03/2021 12:00:00 AM EDT 819 mg/2.625 compl eted <td ID="MedicationRxNorm_3">[id number]</td><td ID="MedicationMedication_3">Invega Trinza</td><td ID="MedicationRoute_3">intramuscularly</td><td ID="MedicationRouteConcept_3"></td><td ID="MedicationStartDate_3">04/03/2021</td><td ID="MedicationStopDate_3">07/02/2021</td><td ID="MedicationDosageFrequency_3">every three months</td><td ID="MedicationDuration_3">90</td><td ID="MedicationFormulaStrength_3">819 mg/2.625 mL</td><td ID="MedicationDosageForm_3">syringe</td><td ID="MedicationDosageFormCode_3"></td><td ID="MedicationDosageDescription_3"></td><td ID="MedicationMedicationId_3">[id number]</td><td ID="MedicationAccount_3">[id number]</td><td ID="MedicationNpid_3">[id number]</td><td ID="MedicationAuthorFirstName_3">Anselmo</td><td ID="MedicationAuthorLastName_3">Amilcar</td><td ID="MedicationTaxonomyCode_3">[id number]</td><td ID="MedicationTaxonomyDesc_3"> Nurse Practitioner</td><td ID="MedicationPhoneNumber_3">[phone]</td> [facility] ([facility]) 2.625 ML paliperidone palmitate 312 MG/ML Prefilled Sy ringe [Invega] Invega Socorroza 04/03/2021 12:00:00 AM EDT 819 mg/2.625 compl eted <td ID="MedicationRxNorm_4">[id number]</td><td ID="MedicationMedication_4">Invega Trinza</td><td ID="MedicationRoute_4">intramuscularly</td><td ID="MedicationRouteConcept_4"></td><td ID="MedicationStartDate_4">04/03/2021</td><td ID="MedicationStopDate_4">07/02/2021</td><td ID="MedicationDosageFrequency_4">every three months</td><td ID="MedicationDuration_4">90</td><td ID="MedicationFormulaStrength_4">819 mg/2.625 mL</td><td ID="MedicationDosageForm_4">syringe</td><td ID="MedicationDosageFormCode_4"></td><td ID="MedicationDosageDescription_4"></td><td ID="MedicationMedicationId_4">[id number]</td><td ID="MedicationAccount_4">[id number]</td><td ID="MedicationNpid_4">[id number]</td><td ID="MedicationAuthorFirstName_4">Anselmo</td><td ID="MedicationAuthorLastName_4">Amilcar</td><td ID="MedicationTaxonomyCode_4">[id number]</td><td ID="MedicationTaxonomyDesc_4"> Nurse Practitioner</td><td ID="MedicationPhoneNumber_4">[phone]</td> [facility] ([facility]) haloperidol decanoate haloperidol decanoate 04/03/2021 12:00:00 AM EDT 100 mg/mL completed <td ID="Me dicationRxNorm_2">[id number]</td><td ID="MedicationMedication_2">haloperidol decanoate</td><td ID="MedicationRoute_2">intramuscularly</td><td ID="MedicationRouteConcept_2"> </td><td ID="MedicationStartDate_2">04/03/2021</td><td ID="MedicationStopDate_2">04/03/2021</td><td ID="MedicationDosageFrequency_2">every four weeks</td><td ID="MedicationDuration_2">28</td><td ID="MedicationFormulaStrength_2">100 mg/mL</td><td ID="MedicationDosageForm_2">solution</td><td ID="MedicationDosageFormCode_2"></td><td ID="MedicationDosageDescription_2"></td><td ID="MedicationMedicationId_2">[id number]</td><td ID="MedicationAccount_2">[id number]</td><td ID="MedicationNpid_2">[id number]</td><td ID="MedicationAuthorFirstName_2">Anselmo</td><td ID="MedicationAuthorLastName_2">Amilcar</td><td ID="MedicationTaxonomyCode_2">[id number]</td><td ID="MedicationTaxonomyDesc_2"> Nurse Practitioner</td><td ID="MedicationPhoneNumber_2">[phone]</td> [facility] ([facility]) benztropine mesylate 1 MG Oral Tablet benztropine 04/03/2021 12:00 :00 AM EDT 1 mg by mouth completed <td ID="Me dicationRxNorm_2">658696</td><td ID="MedicationMedication_2">benztropine</td><td ID="MedicationRoute_2">by mouth</td><td ID="MedicationRouteConcept_2">W09075</td><td ID="MedicationStartDate_2">04/03/2021</td><td ID="MedicationStopDate_2">05/03/2021</td><td ID="MedicationDosageFrequency_2">at bedtime</td><td ID="MedicationDuration_2">30</td><td ID="MedicationFormulaStrength_2">1 mg</td><td ID="MedicationDosageForm_2">tablet</td><td ID="MedicationDosageFormCode_2"></td><td ID="MedicationDosageDescription_2"></td><td ID="MedicationMedicationId_2">[id number]</td><td ID="MedicationAccount_2">[id number]</td><td ID="MedicationNpid_2">[id number]</td><td ID="MedicationAuthorFirstName_2">Anselmo</td><td ID="MedicationAuthorLastName_2">Amilcar</td><td ID="MedicationTaxonomyCode_2">[id number]</td><td ID="MedicationTaxonomyDesc_2">Nurse Practitioner</td><td ID="MedicationPhoneNumber_2">[phone]</td> [facility] ([facility]) olanzapine 5 MG Oral Tablet [Zyprexa] Zyprexa 04/03/2021 12:00:00 AM EDT 5 mg by mouth completed <td ID="Medica tionRxNorm_1">695156</td><td ID="MedicationMedication_1">Zyprexa</td><td ID="MedicationRoute_1">by mouth</td><td ID="MedicationRouteConcept_1">G80765</td><td ID="MedicationStartDate_1">04/03/2021</td><td ID="MedicationStopDate_1">05/03/2021</td><td ID="MedicationDosageFrequency_1">at bedtime</td><td ID="MedicationDuration_1">30</td><td ID="MedicationFormulaStrength_1">5 mg</td><td ID="MedicationDosageForm_1">tablet</td><td ID="MedicationDosageFormCode_1"></td><td ID="MedicationDosageDescription_1"></td><td ID="MedicationMedicationId_1">[id number]</td><td ID="MedicationAccount_1">[id number]</td><td ID="MedicationNpid_1">[id number]</td><td ID="MedicationAuthorFirstName_1">Anselmo</td><td ID="MedicationAuthorLastName_1">Amilcar</td><td ID="MedicationTaxonomyCode_1">[id number]</td><td ID="MedicationTaxonomyDesc_1">Nurse Practitioner</td><td ID="MedicationPhoneNumber_1">[phone]</td> [facility] ([facility]) 2.625 ML paliperidone palmitate 312 MG/ML Prefilled Sy ringe [Invega] Invega Socorroza 04/03/2021 12:00:00 AM EDT 819 mg/2.625 compl eted <td ID="MedicationRxNorm_5">[id number]</td><td ID="MedicationMedication_5">Invega Trinza</td><td ID="MedicationRoute_5">intramuscularly</td><td ID="MedicationRouteConcept_5"></td><td ID="MedicationStartDate_5">04/03/2021</td><td ID="MedicationStopDate_5">07/02/2021</td><td ID="MedicationDosageFrequency_5">every three months</td><td ID="MedicationDuration_5">90</td><td ID="MedicationFormulaStrength_5">819 mg/2.625 mL</td><td ID="MedicationDosageForm_5">syringe</td><td ID="MedicationDosageFormCode_5"></td><td ID="MedicationDosageDescription_5"></td><td ID="MedicationMedicationId_5">[id number]</td><td ID="MedicationAccount_5">[id number]</td><td ID="MedicationNpid_5">[id number]</td><td ID="MedicationAuthorFirstName_5">Anselmo</td><td ID="MedicationAuthorLastName_5">Amilcar</td><td ID="MedicationTaxonomyCode_5">[id number]</td><td ID="MedicationTaxonomyDesc_5"> Nurse Practitioner</td><td ID="MedicationPhoneNumber_5">[phone]</td> [facility] ([facility]) benztropine mesylate 1 MG Oral Tablet benztropine 04/03/2021 12:00 :00 AM EDT 1 mg by mouth completed <td ID="Me dicationRxNorm_4">125540</td><td ID="MedicationMedication_4">benztropine</td><td ID="MedicationRoute_4">by mouth</td><td ID="MedicationRouteConcept_4">H43862</td><td ID="MedicationStartDate_4">04/03/2021</td><td ID="MedicationStopDate_4">05/03/2021</td><td ID="MedicationDosageFrequency_4">at bedtime</td><td ID="MedicationDuration_4">30</td><td ID="MedicationFormulaStrength_4">1 mg</td><td ID="MedicationDosageForm_4">tablet</td><td ID="MedicationDosageFormCode_4"></td><td ID="MedicationDosageDescription_4"></td><td ID="MedicationMedicationId_4">[id number]</td><td ID="MedicationAccount_4">[id number]</td><td ID="MedicationNpid_4">[id number]</td><td ID="MedicationAuthorFirstName_4">Anselmo</td><td ID="MedicationAuthorLastName_4">Amilcar</td><td ID="MedicationTaxonomyCode_4">[id number]</td><td ID="MedicationTaxonomyDesc_4">Nurse Practitioner</td><td ID="MedicationPhoneNumber_4">[phone]</td> [facility] ([facility]) olanzapine 5 MG Oral Tablet [Zyprexa] Zyprexa 04/03/2021 12:00:00 AM EDT 5 mg by mouth completed <td ID="Medica tionRxNorm_3">132056</td><td ID="MedicationMedication_3">Zyprexa</td><td ID="MedicationRoute_3">by mouth</td><td ID="MedicationRouteConcept_3">K56154</td><td ID="MedicationStartDate_3">04/03/2021</td><td ID="MedicationStopDate_3">05/03/2021</td><td ID="MedicationDosageFrequency_3">at bedtime</td><td ID="MedicationDuration_3">30</td><td ID="MedicationFormulaStrength_3">5 mg</td><td ID="MedicationDosageForm_3">tablet</td><td ID="MedicationDosageFormCode_3"></td><td ID="MedicationDosageDescription_3"></td><td ID="MedicationMedicationId_3">[id number]</td><td ID="MedicationAccount_3">[id number]</td><td ID="MedicationNpid_3">[id number]</td><td ID="MedicationAuthorFirstName_3">Anselmo</td><td ID="MedicationAuthorLastName_3">Amilcar</td><td ID="MedicationTaxonomyCode_3">[id number]</td><td ID="MedicationTaxonomyDesc_3">Nurse Practitioner</td><td ID="MedicationPhoneNumber_3">[phone]</td> [facility] ([facility]) 2.625 ML paliperidone palmitate 312 MG/ML Prefilled Sy ringe [Invega] Invega Trinza 04/03/2021 12:00:00 AM EDT 819 mg/2.625 compl eted <td ID="MedicationRxNorm_2">[id number]</td><td ID="MedicationMedication_2">Invega Trinza</td><td ID="MedicationRoute_2">intramuscularly</td><td ID="MedicationRouteConcept_2"></td><td ID="MedicationStartDate_2">04/03/2021</td><td ID="MedicationStopDate_2">07/02/2021</td><td ID="MedicationDosageFrequency_2">every three months</td><td ID="MedicationDuration_2">90</td><td ID="MedicationFormulaStrength_2">819 mg/2.625 mL</td><td ID="MedicationDosageForm_2">syringe</td><td ID="MedicationDosageFormCode_2"></td><td ID="MedicationDosageDescription_2"></td><td ID="MedicationMedicationId_2">[id number]</td><td ID="MedicationAccount_2">[id number]</td><td ID="MedicationNpid_2">[id number]</td><td ID="MedicationAuthorFirstName_2">Anselmo</td><td ID="MedicationAuthorLastName_2">Amilcar</td><td ID="MedicationTaxonomyCode_2">[id number]</td><td ID="MedicationTaxonomyDesc_2"> Nurse Practitioner</td><td ID="MedicationPhoneNumber_2">[phone]</td> [facility] ([facility]) haloperidol decanoate haloperidol decanoate 10/04/2020 12:00:00 AM EST 100 mg/mL completed <td ID="Me dicationRxNorm_1">1356769</td><td ID="MedicationMedication_1">haloperidol decanoate</td><td ID="MedicationRoute_1">intramuscularly</td><td ID="MedicationRouteConcept_1"> </td><td ID="MedicationStartDate_1">10/04/2020</td><td ID="MedicationStopDate_1">04/03/2021</td><td ID="MedicationDosageFrequency_1">as directed</td><td ID="MedicationDuration_1">21</td><td ID="MedicationFormulaStrength_1">100 mg/mL</td><td ID="MedicationDosageForm_1">solution</td><td ID="MedicationDosageFormCode_1"></td><td ID="MedicationDosageDescription_1"></td><td ID="MedicationMedicationId_1">[id number]</td><td ID="MedicationAccount_1">[id number]</td><td ID="MedicationNpid_1">[id number]</td><td ID="MedicationAuthorFirstName_1">Victorino</td><td ID="MedicationAuthorLastName_1">Escobar</td><td ID="MedicationTaxonomyCode_1">[id number]</td><td ID="MedicationTaxonomyDesc_1"> Psychiatry</td><td ID="MedicationPhoneNumber_1">[phone]</td> [facility] ([facility] 100 mg/mL 10/02/2020 12:00:00 AM EST solution 1 INJECT 1ML INTRAMUSCULARLY EVERY 3 WEEKS INJECT 1ML INTRAMUSCULARLY EVERY 3 WEEKS SOLD: 10/04/2020 [facility] 10 mg 09/28/2020 12:00:00 AM EST [...] 50 mg by mouth completed <td ID="Medic ationRxNorm_5">123025</td><td ID="MedicationMedication_5">trazodone</td><td ID="MedicationRoute_5">by mouth</td><td ID="MedicationRouteConcept_5">I33347</td><td ID="MedicationStartDate_5">09/12/2020</td><td ID="MedicationStopDate_5">10/12/2020</td><td ID="MedicationDosageFrequency_5">every night</td><td ID="MedicationDuration_5">30</td><td ID="MedicationFormulaStrength_5">50 mg</td><td ID="MedicationDosageForm_5">tablet</td><td ID="MedicationDosageFormCode_5"></td><td ID="MedicationDosageDescription_5"></td><td ID="MedicationMedicationId_5">[id number]</td><td ID="MedicationAccount_5">[id number]</td><td ID="MedicationNpid_5">[id number]</td><td ID="MedicationAuthorFirstName_5">Kalli</td><td ID="MedicationAuthorLastName_5">Egorho</td><td ID="MedicationTaxonomyCode_5">[id number]</td><td ID="MedicationTaxonomyDesc_5">Nurse Practitioner</td><td ID="MedicationPhoneNumber_5">[phone]</td> [facility] ([facility]) Trazodone Hydrochloride 50 MG Oral Tablet trazodone 2019 12:00:00 AM EST 50 mg by mouth completed <td ID="Medic ationRxNorm_1">992712</td><td ID="MedicationMedication_1">trazodone</td><td ID="MedicationRoute_1">by mouth</td><td ID="MedicationRouteConcept_1">Q43597</td><td ID="MedicationStartDate_1">09/12/2020</td><td ID="MedicationStopDate_1">10/12/2020</td><td ID="MedicationDosageFrequency_1">every night</td><td ID="MedicationDuration_1">30</td><td ID="MedicationFormulaStrength_1">50 mg</td><td ID="MedicationDosageForm_1">tablet</td><td ID="MedicationDosageFormCode_1"></td><td ID="MedicationDosageDescription_1"></td><td ID="MedicationMedicationId_1">[id number]</td><td ID="MedicationAccount_1">[id number]</td><td ID="MedicationNpid_1">[id number]</td><td ID="MedicationAuthorFirstName_1">Kalli</td><td ID="MedicationAuthorLastName_1">Egorho</td><td ID="MedicationTaxonomyCode_1">[id number]</td><td ID="MedicationTaxonomyDesc_1">Nurse Practitioner</td><td ID="MedicationPhoneNumber_1">[phone]</td> [facility] ([facility]) Haldol Decanoate Haldol Decanoate 09/12/2020 12:00:00 AM EST 100 mg/mL completed <td ID="MedicationRx Norm_4">0814730</td><td ID="MedicationMedication_4">Haldol Decanoate</td><td ID="MedicationRoute_4">intramuscularly</td><td ID="MedicationRouteConcept_4"></td><td ID="MedicationStartDate_4">09/12/2020</td><td ID="MedicationStopDate_4">09/15/2020</td><td ID="MedicationDosageFrequency_4">as directed</td><td ID="MedicationDuration_4">1</td><td ID="MedicationFormulaStrength_4">100 mg/mL</td><td ID="MedicationDosageForm_4">solution</td><td ID="MedicationDosageFormCode_4"></td><td ID="MedicationDosageDescription_4"></td><td ID="MedicationMedicationId_4">[id number]</td><td ID="MedicationAccount_4">[id number]</td><td ID="MedicationNpid_4">[id number]</td><td ID="MedicationAuthorFirstName_4">Kalli</td><td ID="MedicationAuthorLastName_4">Egorho</td><td ID="MedicationTaxonomyCode_4">[id number]</td><td ID="MedicationTaxonomyDesc_4">Nurse Practitioner</td><td ID="MedicationPhoneNumber_4">[phone]</td> [facility] ([facility]) quetiapine 300 MG Oral Tablet quetiapine 01/06/2020 12:00:00 AM EST 300 mg completed <td ID="Medicat ionRxNorm_4">959080</td><td ID="MedicationMedication_4">quetiapine</td><td ID="MedicationRoute_4"></td><td ID="MedicationRouteConcept_4"></td><td ID="MedicationStartDate_4">01/06/2020</td><td ID="MedicationStopDate_4">01/05/2021</td><td ID="MedicationDosageFrequency_4">at bedtime</td><td ID="MedicationDuration_4">30</td><td ID="MedicationFormulaStrength_4">300 mg</td><td ID="MedicationDosageForm_4">tablet</td><td ID="MedicationDosageFormCode_4"></td><td ID="MedicationDosageDescription_4"></td><td ID="MedicationMedicationId_4">[id number]</td><td ID="MedicationAccount_4">[id number]</td><td ID="MedicationNpid_4">[id number]</td><td ID="MedicationAuthorFirstName_4">Dane</td><td ID="MedicationAuthorLastName_4">Loida</td><td ID="MedicationTaxonomyCode_4">[id number]</td><td ID="MedicationTaxonomyDesc_4">Psychiatric/Mental Health</td><td ID="MedicationPhoneNumber_4">[phone]</td> [facility] ([facility]) quetiapine 300 MG Oral Tablet quetiapine 01/06/2020 12:00:00 AM EST 300 mg completed <td ID="Medicat ionRxNorm_1">444705</td><td ID="MedicationMedication_1">quetiapine</td><td ID="MedicationRoute_1"></td><td ID="MedicationRouteConcept_1"></td><td ID="MedicationStartDate_1">01/06/2020</td><td ID="MedicationStopDate_1">01/05/2021</td><td ID="MedicationDosageFrequency_1">at bedtime</td><td ID="MedicationDuration_1">30</td><td ID="MedicationFormulaStrength_1">300 mg</td><td ID="MedicationDosageForm_1">tablet</td><td ID="MedicationDosageFormCode_1"></td><td ID="MedicationDosageDescription_1"></td><td ID="MedicationMedicationId_1">53792</td><td ID="MedicationAccount_1">[id number]</td><td ID="MedicationNpid_1">[id number]</td><td ID="MedicationAuthorFirstName_1">Dane</td><td ID="MedicationAuthorLastName_1">[place]</td><td ID="MedicationTaxonomyCode_1">[id number]</td><td ID="MedicationTaxonomyDesc_1">Psychiatric/Mental Health</td><td ID="MedicationPhoneNumber_1">[phone]</td> [facility] ([facility]) quetiapine 300 MG Oral Tablet quetiapine 01/06/2020 12:00:00 AM EST 300 mg completed <td ID="Medicat ionRxNorm_5">295408</td><td ID="MedicationMedication_5">quetiapine</td><td ID="MedicationRoute_5"></td><td ID="MedicationRouteConcept_5"></td><td ID="MedicationStartDate_5">01/06/2020</td><td ID="MedicationStopDate_5">01/05/2021</td><td ID="MedicationDosageFrequency_5">at bedtime</td><td ID="MedicationDuration_5">30</td><td ID="MedicationFormulaStrength_5">300 mg</td><td ID="MedicationDosageForm_5">tablet</td><td ID="MedicationDosageFormCode_5"></td><td ID="MedicationDosageDescription_5"></td><td ID="MedicationMedicationId_5">[id number]</td><td ID="MedicationAccount_5">[id number]</td><td ID="MedicationNpid_5">[id number]</td><td ID="MedicationAuthorFirstName_5">Dane</td><td ID="MedicationAuthorLastName_5">[place]</td><td ID="MedicationTaxonomyCode_5">[id number]</td><td ID="MedicationTaxonomyDesc_5">Psychiatric/Mental Health</td><td ID="MedicationPhoneNumber_5">[phone]</td> [facility] ([facility]) Aristada Aristada 12/20/2019 12:00:00 AM EST mg/3.9 completed <td ID="MedicationRxNorm_3">[id number]</td><td ID="MedicationMedication_3">Aristada</td><td ID="MedicationRoute_3">intramuscularly</td><td ID="MedicationRouteConcept_3"></td><td ID="MedicationStartDate_3">12/20/2019</td><td ID="MedicationStopDate_3">09/12/2020</td><td ID="MedicationDosageFrequency_3"></td><td ID="MedicationDuration_3"></td><td ID="MedicationFormulaStrength_3">1,064 mg/3.9 mL</td><td ID="MedicationDosageForm_3">suspension,extended rel syring</td><td ID="MedicationDosageFormCode_3"></td><td ID="MedicationDosageDescription_3">as directed</td><td ID="MedicationMedicationId_3">40303</td><td ID="MedicationAccount_3">[id number]</td><td ID="MedicationNpid_3">[id number]</td><td ID="MedicationAuthorFirstName_3">Dane</td><td ID="MedicationAuthorLastName_3">[place]</td><td ID="MedicationTaxonomyCode_3">[id number]</td><td ID="MedicationTaxonomyDesc_3"> Psychiatric/Mental Health</td><td ID="MedicationPhoneNumber_3">[phone]</td> [facility] ([facility]) Trazodone Hydrochloride 50 MG Oral Tablet trazodone 2018 12:00:00 AM EDT 50 mg by mouth completed <td ID="Medic ationRxNorm_2">808033</td><td ID="MedicationMedication_2">trazodone</td><td ID="MedicationRoute_2">by mouth</td><td ID="MedicationRouteConcept_2">B10890</td><td ID="MedicationStartDate_2">06/10/2019</td><td ID="MedicationStopDate_2">09/12/2020</td><td ID="MedicationDosageFrequency_2">at bedtime</td><td ID="MedicationDuration_2"></td><td ID="MedicationFormulaStrength_2">50 mg</td><td ID="MedicationDosageForm_2">tablet</td><td ID="MedicationDosageFormCode_2"></td><td ID="MedicationDosageDescription_2"></td><td ID="MedicationMedicationId_2">03673</td><td ID="MedicationAccount_2">[id number]</td><td ID="MedicationNpid_2">[id number]</td><td ID="MedicationAuthorFirstName_2">Dane</td><td ID="MedicationAuthorLastName_2">[place]</td><td ID="MedicationTaxonomyCode_2">[id number]</td><td ID="MedicationTaxonomyDesc_2">Psychiatric/Mental Health</td><td ID="MedicationPhoneNumber_2">[phone]</td> [facility] ([facility]) Amantadine Hydrochloride 100 MG Oral Capsule amantadine HCl 07/30/2017 12:00:00 AM EDT 100 mg by mouth completed <td ID="MedicationRxNorm_1">602183</td><td ID="MedicationMedication_1">amantadine HCl</td><td ID="MedicationRoute_1">by mouth</td><td ID="MedicationRouteConcept_1">W70820</td><td ID="MedicationStartDate_1">07/30/2017</td><td ID="MedicationStopDate_1">09/12/2020</td><td ID="MedicationDosageFrequency_1">every morning</td><td ID="MedicationDuration_1"></td><td ID="MedicationFormulaStrength_1">100 mg</td><td ID="MedicationDosageForm_1">capsule</td><td ID="MedicationDosageFormCode_1"></td><td ID="MedicationDosageDescription_1"></td><td ID="MedicationMedicationId_1">62077</td><td ID="MedicationAccount_1">[id number]</td><td ID="MedicationNpid_1">[id number]</td><td ID="MedicationAuthorFirstName_1">Dane</td><td ID="MedicationAuthorLastName_1">[place]</td><td ID="MedicationTaxonomyCode_1">[id number]</td><td ID="MedicationTaxonomyDesc_1">Psychiatric/Mental Health</td><td ID="MedicationPhoneNumber_1">[phone]</td> [facility] ([facility]) Insurance Providers Payer name Policy type / Coverage type Policy ID Covered alliance party ID Covered alliance party's relationship to shafer Policy Shafer Plan Information Medicaid S [id number] S [id number] Managed Care - Community Plan [facility] P [id number] S [id number] Medicaid S [id number] S [id number] [facility] I [id number] Self [id number] UH I [id number] Self [id number] [facility] I [id number] Self [id number] Managed Care - UHC Community Plan P [id number] S [id number] Medicaid S [id number] S [id number] Managed Care - UHC Community Plan P [id number] S [id number] UNHC COMMUNITY PLAN MCDO [id number] SP [id number] [facility] MAN CRE [id number] SP [id number] [facility] [id number] SP [id number] SELF PAY [facility] OFFICE OF MENTAL HEALTH UNAVAILABLE S [place]ABLE MEDICAID [id number] S [id number] [facility] OFFICE OF MENTAL HEALTH [id number] S [id number] UNHC COMMUNITY PLAN MCDHMO [id number] SP [id number] [facility] OFFICE OF MENTAL HEALTH [id number] S [id number] [facility] [id number] SP [id number] SELF PAY ONLY [id number] SP [id number] [facility] [id number] SP [id number] SELF PAY SP [facility] O [id number] S [id number] [facility] [id number] SP [id number] Self Pay P [facility]ILABLE S [facility]) O [id number] S [id number] [facility] [id number] SP [id number] [id number] SP [id number] [facility] [id number] SP [id number] MEDICAID [id number] SP [id number] Problems, Conditions, and Diagnoses Code Display Name Description Problem Type Effective Dates Data Source(s) F11.10 Opioid abuse, uncomplicated F11.10 - Opioid abus e, uncomplicated Diagnosis 02/27/2021 08:12:[address] 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 F25.9 Schizoaffective disorder, unspecified F2 5.9 - Schizoaffective disorder, unspecified Diagnosis 02/27/2021 08:12:00 [address] [facility] Z13.9 Encounter for screening, unspecified Z13 .9 - Encounter for screening, unspecified Diagnosis 02/27/2021 08:12:00 PM [facility] schizophrenia, hallucinations, substance abuse schizophrenia, hallucinations, substance abuse Diagnosis 09/22/2020 02:27:00 PM [facility] F15.20 Other stimulant dependence, uncomplicate d Stimulant Use Disorder, Moderate: Amphetamine-type substance Condition 09/02/2021 12:00:00 AM EDT [facility] ([facility]) F10.20 Alcohol dependence, uncomplicated Alcohol Use Disorder , Severe Condition 09/02/2021 12:00:00 AM EDT [facility] ([facility]) F17.200 Nicotine dependence, unspecified, uncomp licated Tobacco Use Disorder, Moderate Condition 09/02/2021 12:00:00 AM EDT [facility] ([facility]) F12.20 Cannabis dependence, uncomplicated Cannabis Use Disorder, Moderate Condition 09/02/2021 12:00:00 AM EDT [facility] ([facility]) F20.9 Schizophrenia, unspecified Schizophrenia Condition 09/02/2021 12:00:00 AM EDT [facility] ([facility]) Surgeries/Procedures Procedure Description Date Indications Data Source(s) THERAPEUTIC PROPHYLACTIC/DX INJECTION SUBQ/IM 09/02/2021 12:00:00 AM EDT - 09/02/2021 12:00:00 AM EDT [facility] ([facility]) THERAPEUTIC PROPHYLACTIC/DX INJECTION SUBQ/IM 09/02/20 12:00:00 AM EDT [facility] ([facility]) Comprehensive medication services, per 15 minutes 07/29/2021 12:00:00 AM EDT - 07/29/2021 12:00:00 AM EDT [facility] ([facility]) Comprehensive medication services, per 15 minutes 07/29/2021 12:00:00 AM EDT [facility] ([facility]) Comprehensive medication services, per 15 minutes 06/24/2021 12:00:00 AM EDT - 06/24/2021 12:00:00 AM EDT [facility] ([facility]) Comprehensive medication services, per 15 minutes 06/24/2021 12:00:00 AM EDT [facility] ([facility]) THERAPEUTIC PROPHYLACTIC/DX INJECTION SUBQ/IM 05/27/2021 12:00:00 AM EDT - 05/27/2021 12:00:00 AM EDT [facility] ([facility]) THERAPEUTIC PROPHYLACTIC/DX INJECTION SUBQ/IM 05/27/20 12:00:00 AM EDT [facility] ([facility]) Brief Individual Psychotherapy - 30 min 05/13/2021 12:00:00 AM EDT - 05/13/2021 12:00:00 AM EDT [facility] ([facility]) Brief Individual Psychotherapy - 30 min 05/13/2021 12: 00:00 AM EDT [facility] ([facility]) Comprehensive medication services, per 15 minutes 04/04/2021 12:00:00 AM EDT - 04/04/2021 12:00:00 AM EDT [facility] ([facility]) Comprehensive medication services, per 15 minutes 04/03/2021 12:00:00 AM EDT [facility] ([facility]) OFFICE OUTPATIENT VISIT 15 MINUTES 04/03 12:00:00 AM EDT - 04/03/2021 12:00:00 AM EDT [facility] ([facility]) Psychotherapy ADD ON - 30 Minutes 04/03/2021 12:00:00 AM EDT [facility] ([facility]) OFFICE OUTPATIENT VISIT 15 MINUTES 04/03/2021 12:00:00 AM EDT [facility] ([facility]) OFFICE OUTPATIENT VISIT 15 MINUTES 03/27 12:00:00 AM EDT - 03/27/2021 12:00:00 AM EDT [facility] ([facility]) OFFICE OUTPATIENT VISIT 15 MINUTES 03/27/2021 12:00:00 AM EDT [facility] ([facility]) OFFICE OUTPATIENT VISIT 15 MINUTES 03/19 12:00:00 AM EDT - 03/19/2021 12:00:00 AM EDT [facility] ([facility]) OFFICE OUTPATIENT VISIT 15 MINUTES 03/19/2021 12:00:00 AM EDT [facility] ([facility]) OFFICE OUTPATIENT VISIT 15 MINUTES 02/12 12:00:00 AM EDT - 02/12/2021 12:00:00 AM EDT [facility] ([facility]) OFFICE OUTPATIENT VISIT 15 MINUTES 02/12/2021 12:00:00 AM EDT [facility] ([facility]) OFFICE OUTPATIENT VISIT 15 MINUTES 02/07 12:00:00 AM EDT - 02/07/2021 12:00:00 AM EDT [facility] ([facility]) OFFICE OUTPATIENT VISIT 15 MINUTES 02/07/2021 12:00:00 AM EDT [facility] ([facility]) Brief Individual Psychotherapy - 30 min 02/01/2021 12:00:00 AM EDT - 02/01/2021 12:00:00 AM EDT [facility] ([facility]) Brief Individual Psychotherapy - 30 min 02/01/2021 12: 00:00 AM EDT [facility] ([facility]) OFFICE OUTPATIENT VISIT 15 MINUTES 01/23 12:00:00 AM EDT - 01/23/2021 12:00:00 AM EDT [facility] ([facility]) OFFICE OUTPATIENT VISIT 15 MINUTES 01/23/2021 12:00:00 AM EDT [facility] [facility]) THERAPEUTIC PROPHYLACTIC/DX INJECTION SUBQ/IM 01/23/2021 12:00:00 AM EDT - 01/23/2021 12:00:00 AM EDT [facility] ([facility]) THERAPEUTIC PROPHYLACTIC/DX INJECTION SUBQ/IM 01/24/20 12:00:00 AM EDT [facility] ([facility]) Comprehensive medication services, per 15 minutes 01/18/2021 12:00:00 AM EDT - 01/18/2021 12:00:00 AM EDT [facility] ([facility]) Comprehensive medication services, per 15 minutes 01/18/2021 12:00:00 AM EDT [facility] ([facility]) OFFICE OUTPATIENT VISIT 15 MINUTES 01/17 12:00:00 AM EDT - 01/17/2021 12:00:00 AM EDT [facility] ([facility]) OFFICE OUTPATIENT VISIT 15 MINUTES 01/17/2021 12:00:00 AM EDT [facility] ([facility]) MHC Telemed E/M Lvl 3--Est pt 01/01/2021 12:00:00 AM EST - 01/01/2021 12:00:00 AM EST [facility] ([facility]) MHC Telemed E/M Lvl 3--Est pt 01/01/2021 12:00:[address] [facility] ([facility]) THERAPEUTIC PROPHYLACTIC/DX INJECTION SUBQ/IM 12/28/2020 12:00:00 AM EST - 12/28/2020 12:00:00 AM EST [facility] ([facility]) THERAPEUTIC PROPHYLACTIC/DX INJECTION SUBQ/IM 12/28/19 21 12:00:00 AM EST [facility] ([facility]) MHC Telemed E/M Lvl 3--Est pt 12/20/2020 12:00:00 AM EST - 12/20/2020 12:00:00 AM EST [facility] ([facility]) MHC Telemed E/M Lvl 3--Est pt 12/20/2020 12:00:[address] [facility] ([facility]) MHC Telemed E/M Lvl 3--Est pt 12/06/2020 12:00:00 AM EST - 12/06/2020 12:00:00 AM EST [facility] ([facility]) MHC Telemed E/M Lvl 3--Est pt 12/06/2020 12:00:[address] [facility] ([facility]) Comprehensive medication services, per 15 minutes 11/15/2020 12:00:00 AM EST - 11/15/2020 12:00:00 AM EST [facility] ([facility]) Comprehensive medication services, per 15 minutes 11/15/2020 12:00:00 AM EST [facility] ([facility]) OFFICE OUTPATIENT VISIT 15 MINUTES 11/15 12:00:00 AM EST - 11/15/2020 12:00:00 AM EST [facility] ([facility]) OFFICE OUTPATIENT VISIT 15 MINUTES 11/15/2020 12:00:00 AM EST [facility] ([facility]) THERAPEUTIC PROPHYLACTIC/DX INJECTION SUBQ/IM 10/18/2020 12:00:00 AM EST - 10/18/2020 12:00:00 AM EST [facility] ([facility]) THERAPEUTIC PROPHYLACTIC/DX INJECTION SUBQ/IM 10/18/20 20 12:00:00 AM EST [facility] ([facility]) THERAPEUTIC PROPHYLACTIC/DX INJECTION SUBQ/IM 10/15/2020 12:00:00 AM EST - 10/15/2020 12:00:00 AM EST [facility] ([facility]) THERAPEUTIC PROPHYLACTIC/DX INJECTION SUBQ/IM 10/15/20 20 12:00:00 AM EST [facility] ([facility]) THERAPEUTIC PROPHYLACTIC/DX INJECTION SUBQ/IM 10/04/2020 12:00:00 AM EST - 10/04/2020 12:00:00 AM EST [facility] ([facility]) THERAPEUTIC PROPHYLACTIC/DX INJECTION SUBQ/IM 10/04/20 20 12:00:00 AM EST [facility] ([facility]) OFFICE OUTPATIENT VISIT 15 MINUTES 10/04 12:00:00 AM EST - 10/04/2020 12:00:00 AM EST [facility] ([facility]) OFFICE OUTPATIENT VISIT 15 MINUTES 10/04/2020 12:00:00 AM EST [facility] ([facility]) OFFICE OUTPATIENT VISIT 15 MINUTES 09/12 12:00:00 AM EST - 09/12/2020 12:00:00 AM EST [facility] ([facility]) OFFICE OUTPATIENT VISIT 15 MINUTES 09/12/2020 12:00:00 AM EST [facility] ([facility]) THERAPEUTIC PROPHYLACTIC/DX INJECTION SUBQ/IM 09/12/2020 12:00:00 AM EST - 09/12/2020 12:00:00 AM EST [facility] ([facility]) THERAPEUTIC PROPHYLACTIC/DX INJECTION SUBQ/IM 09/12/20 20 12:00:00 AM EST [facility] ([facility]) OFFICE OUTPATIENT VISIT 15 MINUTES 08/10 12:00:00 AM EDT - 08/10/2020 12:00:00 AM EDT [facility] ([facility]) OFFICE OUTPATIENT VISIT 15 MINUTES 08/10/2020 12:00:00 AM EDT [facility] ([facility]) THERAPEUTIC PROPHYLACTIC/DX INJECTION SUBQ/IM 07/13/2020 12:00:00 AM EDT - 07/13/2020 12:00:00 AM EDT [facility] ([facility]) THERAPEUTIC PROPHYLACTIC/DX INJECTION SUBQ/IM 07/13/20 20 12:00:00 AM EDT [facility] ([facility]) Results ID Date Data Source [id number] 07/19/2021 10:40:00 AM EDT [facility] Name Value Range Interpretation Code Description Data Michelle rce(s) Supporting Document(s) SARS coronavirus 2 RNA [Presence] in Res piratory specimen by OMI with probe detection NEGATIVE [facility] This lab was ordered by [facility] a nd reported by [facility]. ID Date Data Source [id number] 07/19/2021 09:50:00 AM EDT [facility] Name Value Range Interpretation Code Description Data Michelle rce(s) Supporting Document(s) SARS COVID ANTIGEN NEGATIVE [facility] This lab was ordered by [facility] a nd reported by [facility]. ID Date Data Source [id number] 06/04/2021 08:17:00 PM EDT [facility] Name Value Range Interpretation Code Description Data Michelle rce(s) Supporting Document(s) SARS coronavirus 2 RNA [Presence] in Res piratory specimen by OMI with probe detection NEGATIVE [facility] This lab was ordered by [facility] a nd reported by [facility]. ID Date Data Source [id number] 05/01/2021 01:57:00 PM EDT [facility] Name Value Range Interpretation Code Description Data Michelle rce(s) Supporting Document(s) SARS coronavirus 2 RNA [Presence] in Res piratory specimen by OMI with probe detection NEGATIVE [facility] This lab was ordered by [facility] a nd reported by [facility]. ID Date Data Source [id number] 04/19/2021 06:29:00 AM EDT [facility] Name Value Range Interpretation Code Description Data Michelle rce(s) Supporting Document(s) SARS coronavirus 2 RNA [Presence] in Res piratory specimen by OMI with probe detection NEGATIVE [facility] This lab was ordered by [facility] a nd reported by [facility]. ID Date Data Source [id number] 04/17/2021 05:50:00 PM EDT [facility] Name Value Range Interpretation Code Description Data Michelle rce(s) Supporting Document(s) SARS-CoV-2 (COVID-19) RNA [Presence] in Respiratory specimen by OMI with probe detection Not Detected [facility] This lab was ordered by [facility] and reported by [facility]. ID Date Data Source [id number] 02/28/2021 04:53:00 PM EDT [facility] [address] [place] [address] HEALTH INFORMATION MANAGEMENT History and Physical Report : [id number] Signed Patient: Gabo Parra Acct:[id number] Unit: Low [id number] : 1980 Loc: [facility] Room/Bed: 820-B Age/Sex: 40 / M ADM [...] charges for this visit?: Yes Inpt Consult [id number] Cons Level 1: Yes Signed By:Rambo Summers <<Signature on File>> Signed Date/Time: 02/28/211657 Co-Signer: Leonel Hubbard MD Co-Signed Date/Time: 02/28/211724 Initializing User: Rambo Summers NP 02/28/211652 52 52 Name Value Range Interpretation Code Description Data Michelle rce(s) Supporting Document(s) ID Date Data Source [id number] 02/28/2021 10:45:00 AM [facility] [address] [place] [address] HEALTH INFORMATION MANAGEMENT [facility] Psychosocial Summary : [id number] Signed Patient: Gabo Parra Acct:[id number] Unit: [id number] : 1980 Loc: [facility] Room/Bed: 820-B Age/Sex: 40 / M ADM Date: 02/27/21 cc: General/History - Presenting Problem Presenting Problem: Social Summary/Discharge plan Presenting Problem Gabo is a40 yo AAM, extensive psych hx, also problems with substance abuse admitted on a transfer from [facility] ER brought in there by his CW as pt was feeling depressed, suicidal, also hallucinating and after abusing drugs History. tates was partially complaint with meds. Not able to name his psychiatrist in [place], not able to name the therapist. Gives h/o 5 to 6 inpt psych txs, last one few months ago, "I can't remember the place, they send me from [facility]. " Also, h'o inpt psych tx at [facility]. H/o self harm time, tried [...] Person?: No Are you part of any scientologist/spirtual community?: Yes (Christian ) - Current Living/Relationship History Current Living Arrangement: House Who Do You Live With?: Mother. OK to Return Home: Yes Weapons in household: No Currently in a Relationship?: No Ever Been ?: No Any Children?: 2 - Family History Where Were You Born/Raised?: [place] Who Was in Home?: Mother, Father How [...] Reducing Risk: Complies with Tx/Meds, Future Oriented, Uatsdin Beliefs Mental Status Treatment - Mental Status [...] rce(s) Supporting Document(s) ID Date Data Source [id number] 02/27/2021 04:28:00 PM EDT [facility] Name Value Range Interpretation Code Description Data Michelle rce(s) Supporting Document(s) SARS coronavirus 2 RNA [Presence] in Res piratory specimen by OMI with probe detection NEGATIVE [facility] This lab was ordered by [facility] a nd reported by [facility]. ID Date Data Source [id number] 01/23/2021 01:03:00 AM EDT [facility] Name Value Range Interpretation Code Description Data Michelle rce(s) Supporting Document(s) SARS coronavirus 2 RNA [Presence] in Res piratory specimen by OMI with probe detection NEGATIVE [facility] This lab was ordered by [facility] a nd reported by [facility]. ID Date Data Source [id number] 10/17/2020 12:19:00 AM EST [facility] Name Value Range Interpretation Code Description Data Michelle rce(s) Supporting Document(s) SARS coronavirus 2 RNA [Presence] in Res piratory specimen by [facility]MI with probe detection [facility] This lab was ordered by [facility] a nd reported by [facility]. Procedure Social History Code Duration Value Status Description Data Source(s ) Smoking 09/02/2021 12:00:00 AM EDT Unknown if ever smoked comp leted Unknown if ever smoked [facility] ([facility]) Smoking 07/29/2021 12:00:00 AM EDT Unknown if ever smoked comp leted Unknown if ever smoked [facility] ([facility]) Smoking 06/24/2021 12:00:00 AM EDT Unknown if ever smoked comp leted Unknown if ever smoked [facility] ([facility]) Smoking 05/27/2021 12:00:00 AM EDT Unknown if ever smoked comp leted Unknown if ever smoked [facility] ([facility]) Smoking 05/13/2021 12:00:00 AM EDT Unknown if ever smoked comp leted Unknown if ever smoked [facility] ([facility]) Smoking 04/04/2021 12:00:00 AM EDT Unknown if ever smoked comp leted Unknown if ever smoked [facility] ([facility]) Smoking 04/03/2021 12:00:00 AM EDT Unknown if ever smoked comp leted Unknown if ever smoked [facility] ([facility]) Smoking 03/27/2021 12:00:00 AM EDT Unknown if ever smoked comp leted Unknown if ever smoked [facility] ([facility]) Smoking 03/19/2021 12:00:00 AM EDT Unknown if ever smoked comp leted Unknown if ever smoked [facility] ([facility]) Smoking 02/12/2021 12:00:00 AM EDT Unknown if ever smoked comp leted Unknown if ever smoked [facility] ([facility]) Smoking 02/07/2021 12:00:00 AM EDT Unknown if ever smoked comp leted Unknown if ever smoked [facility] ([facility]) Smoking 02/01/2021 12:00:00 AM EDT Unknown if ever smoked comp leted Unknown if ever smoked [facility] ([facility]) Smoking 01/23/2021 12:00:00 AM EDT Unknown if ever smoked comp leted Unknown if ever smoked [facility] ([facility]) Smoking 01/18/2021 12:00:00 AM EDT Unknown if ever smoked comp leted Unknown if ever smoked [facility] ([facility]) Smoking 01/17/2021 12:00:00 AM EDT Unknown if ever smoked comp leted Unknown if ever smoked [facility] ([facility]) Smoking 01/01/2021 12:00:00 AM EST Unknown if ever smoked comp leted Unknown if ever smoked [facility] ([facility]) Smoking 12/28/2020 12:00:00 AM EST Unknown if ever smoked comp leted Unknown if ever smoked [facility] ([facility]) Smoking 12/20/2020 12:00:00 AM EST Unknown if ever smoked comp leted Unknown if ever smoked [facility] ([facility]) Smoking 12/06/2020 12:00:00 AM EST Unknown if ever smoked comp leted Unknown if ever smoked [facility] ([facility]) Smoking 11/15/2020 12:00:00 AM EST Unknown if ever smoked comp leted Unknown if ever smoked [facility] ([facility]) Smoking 10/18/2020 12:00:00 AM EST Unknown if ever smoked comp leted Unknown if ever smoked [facility] ([facility]) Smoking 10/15/2020 12:00:00 AM EST Unknown if ever smoked comp leted Unknown if ever smoked [facility] ([facility]) Smoking 10/04/2020 12:00:00 AM EST Unknown if ever smoked comp leted Unknown if ever smoked [facility] ([facility]) Smoking 09/12/2020 12:00:00 AM EST Unknown if ever smoked comp leted Unknown if ever smoked [facility] ([facility]) Smoking 08/10/2020 12:00:00 AM EDT Unknown if ever smoked comp leted Unknown if ever smoked [facility] ([facility]) Smoking 07/13/2020 12:00:00 AM EDT Unknown if ever smoked comp leted Unknown if ever smoked [facility] ([facility]) Vital Signs ID Date Data Source UNK Name Value Range Interpretation Code Description Data Source(s) Body height 0.00 in Normal (applies to non-numeric resu lts) 0.00 in [facility] ([facility]) Body weight Measured 0.00 lbs Normal (applies to n on-numeric results) 0.00 lbs [facility] ([facility]) Body mass index (BMI) [Ratio] 0.00 kg/m2 No rmal (applies to non-numeric results) 0.00 kg/m2 [facility] ([facility]) Systolic blood pressure 0 mm[Hg] Normal (applies t o non-numeric results) 0 mm[Hg] [facility] Diastolic blood pressure 0 mm[Hg] Normal (applies to non-numeric results) 0 mm[Hg] [facility] ([facility]) Body height 0.00 in Normal (applies to non-numeric resu lts) 0.00 in [facility] ([facility]) Body weight Measured 0.00 lbs Normal (applies to n on-numeric results) [facility] Body mass index (BMI) [Ratio] 0.00 kg/m2 No rmal (applies to non-numeric results) 0.00 kg/m2 [facility] ([facility]) Systolic blood pressure 0 mm[Hg] Normal (applies t o non-numeric results) 0 mm[Hg] [facility] ([facility]) Diastolic blood pressure 0 mm[Hg] Normal (applies to non-numeric results) 0 mm[Hg] [facility] Body height 0.00 in Normal (applies to non-numeric resu lts) 0.00 in [facility] ([facility]) Body weight Measured 0.00 lbs Normal (applies to n on-numeric results) 0.00 lbs [facility] ([facility]) Body mass index (BMI) [Ratio] 0.00 kg/m2 No rmal (applies to non-numeric results) 0.00 kg/m2 [facility] ([facility]) Systolic blood pressure 0 mm[Hg] Normal (applies t o non-numeric results) 0 mm[Hg] [facility] Diastolic blood pressure 0 mm[Hg] Normal (applies to non-numeric results) 0 mm[Hg] [facility] ([facility]) Body height 0.00 in Normal (applies to non-numeric resu lts) 0.00 in [facility] ([facility]) Body weight Measured 0.00 lbs Normal (applies to n on-numeric results) 0.00 lbs [facility] ([facility]) Body mass index (BMI) [Ratio] 0.00 kg/m2 No rmal (applies to non-numeric results) 0.00 kg/m2 [facility] ([facility]) Systolic blood pressure 0 mm[Hg] Normal (applies t o non-numeric results) 0 mm[Hg] [facility] ([facility]) Diastolic blood pressure 0 mm[Hg] Normal (applies to non-numeric results) 0 mm[Hg] [facility] ([facility]) ID Date Data Source [id number] 09/22/2020 02:27:59 PM [facility] Name Value Range Interpretation Code Description Data Source(s) TRANSFER FROM [facility]
--- OUTSIDE RECORDS SUMMARY | 2021-09-10 02:57 | CCD ---
Author Author [facility] Organization [facility] Address Unknown Phone Unavailable Support Name Relationship Address Phone Hudson GUTIERREZ, Pasha Next Of Kin [address] [place] [address] Diamante Costa Next Of Kin [address] [place] [address] Dwain Joseph DO Next Of Kin [address] [place] [address] Cameron Bingham MD Next Of Kin [address] [place] [address] SELFGARY Next Of Kin [address] [place] [address] YONI JACK Next Of Kin [address] [place] [address] CORRECTIONAL, KARLUK Next Of Kin [address] [place] [address] Monique Conklin MD Next Of Kin [address] [place] [phone] YONI CALHOUN Next Of Kin [address] [place] [address] Isabelle Manning Next Of Kin [address] [place] [address] Pat Gallo DO Next Of Kin [address] [place] [address] DISABLED Next Of Kin Unknown Unavailable Colcord Self Next Of Kin [address] [place] [phone] SELF, JUNIOR Next Of Kin [address] [place] [address] UE Next Of Kin Unknown Unavailable SIMON WALL Next Of Kin [address] [place] [address] SELF, JUNIOR [address] [place] [address] Unavailable Care Team Providers Care Fence Repairman Name Role Phone Farden, M Rambo Unavailable [...] Unavailable Gina Nash Unavailable AMILCAR, H ANSELMO CONTINUOUS IMPROVEMENT COACH Unavailable Unavailable AMILCAR, H ANSELMO CONTINUOUS IMPROVEMENT COACH Unavailable Unavailable AMILCAR, H ANSELMO CONTINUOUS IMPROVEMENT COACH Unavailable Unavailable AMILCAR, H ANSELMO CONTINUOUS IMPROVEMENT COACH Unavailable Unavailable AMILCAR, H ANSELMO CONTINUOUS IMPROVEMENT COACH Unavailable Unavailable AMILCAR, H ANSELMO CONTINUOUS IMPROVEMENT COACH Unavailable Unavailable AMILCAR, H ANSELMO CONTINUOUS IMPROVEMENT COACH Unavailable Unavailable AMILCAR, H ANSELMO CONTINUOUS IMPROVEMENT COACH Unavailable Unavailable AMILCAR, H ANSELMO CONTINUOUS IMPROVEMENT COACH Unavailable Unavailable Jossie Marcelino Unavailable Rotella, Jossy [...] is protected by Article 27-F of the [facility] Public Health law. If you continue you may have access to information: Regarding HIV / AIDS; Provided by facilities licensed or operated by the [facility] Office of Mental Health; or Provided by the [facility] Office for People With Developmental Disabilities. If such information is present, then the following [facility] mandated warning applies: This information has [...] allergy No Known Allergies No Known Allergies [facility] Propensity to adverse reactions NO KNOWN ALLERGIES NO KNOWN ALLERGIES [facility] Encounters Encounter Providers Location Date Indications Data Source(s ) Injectable Psychotropic Medication Administration (Inj ection Only) Attender: Thalia Carreno [facility] 09/02/2021 10:30:00 AM EDT - 09/02/2021 10:30:00 AM EDT [facility] ([facility]) Attender: Thalia Carreno 09/02/2021 12:00:00 AM EDT [facility] ([facility]) Injectable Medication Administration w/ Monitoring & E ducation [facility] 02:30:00 AM EDT - 07/29/2021 02:30:00 AM EDT [facility] ([facility]) Attender: Pam Juarez 07/29/2021 12:00:00 AM EDT [facility] ([facility]) Injectable Medication Administration w/ Monitoring & E ducation Attender: Thalia MullerAlphonso [facility] 06/24/2021 10:45:00 AM EDT - 06/24/2021 10:45:00 AM EDT [facility] ([facility]) Attender: Thalia Carreno 06/24/2021 12:00:00 AM EDT [facility] ([facility]) Injectable Psychotropic Medication Administration (Inj ection Only) Attender: Thalia Carreno [facility] 05/27/2021 08:15:00 AM EDT - 05/27/2021 08:15:00 AM EDT [facility] ([facility]) Attender: Thalia Carreno 05/27/2021 12:00:00 AM EDT [facility] ([facility]) Brief Individual Psychotherapy - 30 min Attender: Gina yun [facility] 05/13/2021 08:30:00 AM EDT - 05/13/2021 08:30:00 AM EDT [facility] ([facility]) Attender: Gina Nash 05/13/2021 12:00:00 AM EDT [facility] ([facility]) Attender: Pam Juarez 04/04/2021 12:00:00 AM EDT [facility] ([facility]) Injectable Medication Administration w/ Monitoring & E ducation Attender: Pam Juarez [facility] 04/03/2021 09:00:00 AM EDT - 04/03/2021 09:00:00 AM EDT [facility] ([facility]) Outpatient Attender: ANSELMO APONTE NP [facility] Mike garcía 04/03/2021 08:30:00 AM EDT - 04/03/2021 08:30:00 AM EDT [facility] ([facility]) Attender: ANSELMO APONTE NP 04/03/2021 12:00:00 AM EDT [facility] ([facility]) Outpatient Attender: ANSELMO APONTE NP [facility] Mike garcía 03/27/2021 11:00:00 AM EDT - 03/27/2021 11:00:00 AM EDT [facility] ([facility]) Attender: ANSELMO APONTE NP 03/27/2021 12:00:00 AM EDT [facility] ([facility]) Outpatient Attender: ANSELMO APONTE NP [facility] Mike garcía 03/19/2021 03:00:00 AM EDT - 03/19/2021 03:00:00 AM EDT [facility] ([facility]) Attender: ANSELMO APONTE NP 03/19/2021 12:00:00 AM EDT [facility] ([facility]) Inpatient Attender: JONNATHAN TRACY MDAdmitter: JONNATHAN TRACY MD 02/27/2021 08:12:00 PM EDT - 03/08/2021 03:27:00 PM EDT Suicidal Ideation / Homicidal Ideation [facility] Suicidal Ideation / Homicidal Ideation Patient discharged. Outpatient Attender: JONNATHAN TRACY MDAdmi tter: JONNATHAN TRACY MDConsultant: JONNATHAN TRACY MD 02/27/2021 08:12:00 PM EDT Suicidal Ideation / H omicidal Ideation [facility] Suicidal Ideation / Homicidal Ideation Outpatient Attender: JONNATHAN TRACY MDAdmi tter: JONNATHAN TRACY MDConsultant: JONNATHAN TRACY MD 02/27/2021 08:12:00 PM EDT Suicidal Ideation / H omicidal Ideation [facility] Suicidal Ideation / Homicidal Ideation Outpatient Attender: Castro ColonAdmitter : JONNATHAN TRACY MDConsultant: JONNATHAN TRACY MD 02/27/2021 08:12:00 PM EDT Suicidal Ideation / H omicidal Ideation [facility] Suicidal Ideation / Homicidal Ideation Outpatient Attender: JONNATHAN TRACY MDAdmi tter: JONNATHAN TRACY MDConsultant: JONNATHAN TRACY MD 02/27/2021 08:12:00 PM EDT Suicidal Ideation / H omicidal Ideation [facility] Suicidal Ideation / Homicidal Ideation Outpatient Attender: JONNATHAN TRACY MDAdmi tter: JONNATHAN TRACY MDConsultant: JONNATHAN TRACY MD 02/27/2021 08:12:00 PM EDT Suicidal Ideation / H omicidal Ideation [facility] Suicidal Ideation / Homicidal Ideation Outpatient Attender: JONNATHAN TRACY MDAdmi tter: JONNATHAN TRACY MDConsultant: JONNATHAN TRACY MD 02/27/2021 08:12:00 PM EDT Suicidal Ideation / H omicidal Ideation [facility] Suicidal Ideation / Homicidal Ideation Outpatient Attender: Castro ColonAdmitter : JONNATHAN TRACY MDConsultant: JONNATHAN TRACY MD 02/27/2021 08:12:00 PM EDT Suicidal Ideation / H omicidal Ideation [facility] Suicidal Ideation / Homicidal Ideation Outpatient Attender: Castro ZayasAdmitter : JONNATHAN TRACY MDConsultant: JONNATHAN TRACY MD 02/27/2021 08:12:00 PM EDT Suicidal Ideation / H omicidal Ideation [facility] Suicidal Ideation / Homicidal Ideation Outpatient Attender: JONNATHAN TRACY MDAdmi tter: JONNATHAN TRACY MDConsultant: JONNATHAN TRACY MD 02/27/2021 08:12:00 PM EDT Suicidal Ideation / H omicidal Ideation [facility] Suicidal Ideation / Homicidal Ideation Outpatient Attender: Rambo Pedroza mitter: JONNATHAN TRACY MDConsultant: JONNATHAN TRACY MD 02/27/2021 08:12:00 PM EDT Suicidal Ideation / H omicidal Ideation [facility] Suicidal Ideation / Homicidal Ideation Outpatient Attender: ANSELMO APONTE NP [facility] Mike garcía 02/12/2021 10:30:00 AM EDT - 02/12/2021 10:30:00 AM EDT [facility] ([facility]) Attender: ANSELMO APONTE NP 02/12/2021 12:00:00 AM EDT [facility] ([facility]) Outpatient Attender: ANSELMO APONTE NP [facility] Mike garcía 02/07/2021 11:30:00 AM EDT - 02/07/2021 11:30:00 AM EDT [facility] ([facility]) Attender: ANSELMO APONTE NP 02/07/2021 12:00:00 AM EDT [facility] ([facility]) Brief Individual Psychotherapy - 30 min Attender: Gina yun [facility] Maria Alejandra 02/01/2021 02:00:00 AM EDT - 02/01/2021 02:00:00 AM EDT [facility] ([facility]) Attender: Gina Nash 02/01/2021 12:00:00 AM EDT [facility] ([facility]) Injectable Psychotropic Medication Administration (Inj ection Only) Att[facility]: [facility] 01/23/2021 10:00:00 AM EDT - 01/23/2021 10:00:00 AM EDT [facility] ([facility]) Outpatient Attender: ANSELMO APONTE NP [facility] Mike garcía 01/23/2021 09:15:00 AM EDT - 01/23/2021 09:15:00 AM EDT [facility] ([facility]) Attender: ANSELMO APONTE NP 01/23/2021 12:00:00 AM EDT [facility] ([facility]) Attender: Thalia Carreno 01/23/2021 12:00:00 AM EDT [facility] ([facility]) Injectable Medication Administration w/ Monitoring & E ducation Attender: Pam Juarez [facility] 01/18/2021 11:00:00 AM EDT - 01/18/2021 11:00:00 AM EDT [facility] ([facility]) Attender: Pam Juarez 01/18/2021 12:00:00 AM EDT [facility] ([facility]) Outpatient Attender: ANSELMO APONTE NP [facility] Mike garcía 01/17/2021 09:00:00 AM EDT - 01/17/2021 09:00:00 AM EDT [facility] ([facility]) Attender: ANSELMO APONTE NP 01/17/2021 12:00:00 AM EDT [facility] ([facility]) Outpatient Attender: ANSELMO APONTE NP [facility] Mike garcía 01/01/2021 02:30:00 AM EST - 01/01/2021 02:30:00 AM EST [facility] ([facility]) Attender: ANSELMO APONTE NP 01/01/2021 12:00:00 AM EST [facility] ([facility]) Injectable Psychotropic Medication Administration (Inj ection Only) Attender: Jossie Marcelino [facility] 12/28/2020 10:30:00 AM EST - 12/28/2020 10:30:00 AM EST [facility] ([facility]) Attender: Jossie Marcelino 12/28/2020 12:00:00 AM EST [facility] ([facility]) Outpatient Attender: Victorino Escobar MD [facility] Mike garcía 12/20/2020 09:30:00 AM EST - 12/20/2020 09:30:00 AM EST [facility] ([facility]) Attender: Victorino Escobar MD 12/20/2020 12:00:00 AM EST [facility] ([facility]) Outpatient Attender: Victorino Escobar MD [facility] 12/06/2020 12:30:00 PM EST - 12/06/2020 12:30:00 PM EST [facility] ([facility]) Attender: Victorino Escobar MD 12/06/2020 12:00:00 AM EST [facility] ([facility]) Injectable Medication Administration w/ Monitoring & E ducation Attender: ORGANIZATION NPI ALIASES [facility] 11/15/2020 11:15: 00 AM EST - 11/15/2020 11:15:00 AM EST [facility] ([facility]) Outpatient Attender: Victorino Escobar MD [facility] 11/15/2020 11:00:00 AM EST - 11/15/2020 11:00:00 AM EST [facility] ([facility]) Attender: ORGANIZATION NPI ALIASES * 11/15/2020 12:00:00 AM EST [facility] ([facility]) Attender: Victorino Escobar MD 11/15/2020 12:00:00 AM EST [facility] ([facility]) Injectable Psychotropic Medication Administration (Inj ection Only) Attender: Jossy Mejia [facility] 10/18/2020 10:30:00 AM EST - 10/18/2020 10:30:00 AM EST [facility] ([facility]) Attender: Jossy Mejia 10/18/2020 12:00:00 AM EST [facility] ([facility]) Injectable Psychotropic Medication Administration (Inj ection Only) Attender: Jossy Mejia [facility] 10/15/2020 11:00:00 AM EST - 10/15/2020 11:00:00 AM EST [facility] ([facility]) Attender: Jossy Mejia 10/15/2020 12:00:00 AM EST [facility] ([facility]) Injectable Psychotropic Medication Administration (Inj ection Only) Attender: Jossy Mejia [facility] 10/04/2020 10:30:00 AM EST - 10/04/2020 10:30:00 AM EST [facility] ([facility]) Outpatient Attender: KALLI MOLINAURSZULA [facility] 10/04/2020 10:00:00 AM EST - 10/04/2020 10:00:00 AM EST [facility] ([facility]) Attender: Jossy Mejia 10/04/2020 12:00:00 AM EST [facility] ([facility]) Attender: KALLI MOLINAURSZULA 10/04/2020 12:00: 00 AM EST [facility] ([facility]) Outpatient Referrer: [facility] [place] 09/22/2020 0 2:27:00 PM EST schizophrenia, hallucinations, substance abuse [facility] schizophrenia, hallucinations, substance abuse Injectable Psychotropic Medication Administration (Inj ection Only) Attender: Jossy Mejia [facility] 09/12/2020 09:30:00 AM EST - 09/12/2020 09:30:00 AM EST [facility] ([facility]) Outpatient Attender: KALLI MOLINAURSZULA [facility] 09/12/2020 09:00:00 AM EST - 09/12/2020 09:00:00 AM EST [facility] ([facility]) Attender: KALLI MOLINAURSZULA 09/12/2020 12:00: 00 AM EST [facility] ([facility]) Attender: Jossy Mejia 09/12/2020 12:00:00 AM EST [facility] ([facility]) Outpatient Attender: KALLI IGLESIAS [facility] J abby 08/10/2020 02:00:00 AM EDT - 08/10/2020 02:00:00 AM EDT [facility] ([facility]10[facility] 12:00: 00 AM EDT [facility] ([facility]) Injectable Psychotropic Medication Administration (Inj ection Only) Attender: Jossy Mejia [facility] 07/13/2020 02:00:00 AM EDT - 07/13/2020 02:00:00 AM EDT [facility] ([facility]) Attender: Jossy Mejia 07/13/2020 12:00:00 AM EDT [facility] ([facility]) Outpatient Attender: Pasha Treviño MD 07/12/2020 02:46:50 PM EDT [facility] Functional Status Medications Medication Brand Name Start Date Product Form Dose Route Admi nistrative Instructions Pharmacy Instructions Status Indications Reaction Description Data Source(s) Prazosin 1 MG Oral Capsule prazosin 07/10/2021 12:00:00 AM EDT 1 mg by mouth completed <td ID="Medicat ionRxNorm_4">601028</td><td ID="MedicationMedication_4">prazosin</td><td ID="MedicationRoute_4">by mouth</td><td ID="MedicationRouteConcept_4">I77670</td><td ID="MedicationStartDate_4">07/10/2021</td><td ID="MedicationStopDate_4">09/30/2021</td><td ID="MedicationDosageFrequency_4">at bedtime</td><td ID="MedicationDuration_4">30</td><td ID="MedicationFormulaStrength_4">1 mg</td><td ID="MedicationDosageForm_4">capsule</td><td ID="MedicationDosageFormCode_4"></td><td ID="MedicationDosageDescription_4"></td><td ID="MedicationMedicationId_4">[id number]</td><td ID="MedicationAccount_4">[id number]</td><td ID="MedicationNpid_4">[id number]</td><td ID="MedicationAuthorFirstName_4">Anselmo</td><td ID="MedicationAuthorLastName_4">Amilcar</td><td ID="MedicationTaxonomyCode_4">[id number]</td><td ID="MedicationTaxonomyDesc_4">Nurse Practitioner</td><td ID="MedicationPhoneNumber_4">[phone]</td> [facility] ([facility]) olanzapine 5 MG Oral Tablet [Zyprexa] Zyprexa 05/23/2021 12:00:00 AM EDT 5 mg by mouth completed <td ID="Medica tionRxNorm_2">886537</td><td ID="MedicationMedication_2">Zyprexa</td><td ID="MedicationRoute_2">by mouth</td><td ID="MedicationRouteConcept_2">B53039</td><td ID="MedicationStartDate_2">05/23/2021</td><td ID="MedicationStopDate_2">09/30/2021</td><td ID="MedicationDosageFrequency_2">at bedtime</td><td ID="MedicationDuration_2">30</td><td ID="MedicationFormulaStrength_2">5 mg</td><td ID="MedicationDosageForm_2">tablet</td><td ID="MedicationDosageFormCode_2"></td><td ID="MedicationDosageDescription_2"></td><td ID="MedicationMedicationId_2">[id number]</td><td ID="MedicationAccount_2">[id number]</td><td ID="MedicationNpid_2">[id number]</td><td ID="MedicationAuthorFirstName_2">Anselmo</td><td ID="MedicationAuthorLastName_2">Amilcar</td><td ID="MedicationTaxonomyCode_2">[id number]</td><td ID="MedicationTaxonomyDesc_2">Nurse Practitioner</td><td ID="MedicationPhoneNumber_2">[phone]</td> [facility] ([facility]) benztropine mesylate 1 MG Oral Tablet benztropine 05/23/2021 12:00 :00 AM EDT 1 mg by mouth completed <td ID="Me dicationRxNorm_3">975593</td><td ID="MedicationMedication_3">benztropine</td><td ID="MedicationRoute_3">by mouth</td><td ID="MedicationRouteConcept_3">R25153</td><td ID="MedicationStartDate_3">05/23/2021</td><td ID="MedicationStopDate_3">09/30/2021</td><td ID="MedicationDosageFrequency_3">at bedtime</td><td ID="MedicationDuration_3">30</td><td ID="MedicationFormulaStrength_3">1 mg</td><td ID="MedicationDosageForm_3">tablet</td><td ID="MedicationDosageFormCode_3"></td><td ID="MedicationDosageDescription_3"></td><td ID="MedicationMedicationId_3">[id number]</td><td ID="MedicationAccount_3">[id number]</td><td ID="MedicationNpid_3">[id number]</td><td ID="MedicationAuthorFirstName_3">Anselmo</td><td ID="MedicationAuthorLastName_3">Amilcar</td><td ID="MedicationTaxonomyCode_3">[id number]</td><td ID="MedicationTaxonomyDesc_3">Nurse Practitioner</td><td ID="MedicationPhoneNumber_3">[phone]</td> [facility] ([facility]) 1.5 ML paliperidone palmitate 156 MG/ML Prefilled Syri nge [Invega] Invega Sustenna 04/16/2021 12:00:00 AM EDT 234 mg/1.5 compl eted <td ID="MedicationRxNorm_1">678784</td><td ID="MedicationMedication_1">Invega Sustenna</td><td ID="MedicationRoute_1"></td><td ID="MedicationRouteConcept_1"></td><td ID="MedicationStartDate_1">04/16/2021</td><td ID="MedicationStopDate_1"></td><td ID="MedicationDosageFrequency_1"></td><td ID="MedicationDuration_1"></td><td ID="MedicationFormulaStrength_1">234 mg/1.5 mL</td><td ID="MedicationDosageForm_1">syringe</td><td ID="MedicationDosageFormCode_1"></td><td ID="MedicationDosageDescription_1"> </td><td ID="MedicationMedicationId_1">[id number]</td><td ID="MedicationAccount_1">[id number]</td><td ID="MedicationNpid_1">[id number]</td><td ID="MedicationAuthorFirstName_1">Anselmo</td><td ID="MedicationAuthorLastName_1">Amilcar</td><td ID="MedicationTaxonomyCode_1">[id number]</td><td ID="MedicationTaxonomyDesc_1">Nurse Practitioner</td><td ID="MedicationPhoneNumber_1">[phone]</td> [facility] ([facility]) 2.625 ML paliperidone palmitate 312 MG/ML Prefilled Sy ringe [Invega] Invega Socorroza 04/03/2021 12:00:00 AM EDT 819 mg/2.625 compl eted <td ID="MedicationRxNorm_3">[id number]</td><td ID="MedicationMedication_3">Invega Trinza</td><td ID="MedicationRoute_3">intramuscularly</td><td ID="MedicationRouteConcept_3"></td><td ID="MedicationStartDate_3">04/03/2021</td><td ID="MedicationStopDate_3">07/02/2021</td><td ID="MedicationDosageFrequency_3">every three months</td><td ID="MedicationDuration_3">90</td><td ID="MedicationFormulaStrength_3">819 mg/2.625 mL</td><td ID="MedicationDosageForm_3">syringe</td><td ID="MedicationDosageFormCode_3"></td><td ID="MedicationDosageDescription_3"></td><td ID="MedicationMedicationId_3">[id number]</td><td ID="MedicationAccount_3">[id number]</td><td ID="MedicationNpid_3">[id number]</td><td ID="MedicationAuthorFirstName_3">Anselmo</td><td ID="MedicationAuthorLastName_3">Amilcar</td><td ID="MedicationTaxonomyCode_3">[id number]</td><td ID="MedicationTaxonomyDesc_3"> Nurse Practitioner</td><td ID="MedicationPhoneNumber_3">[phone]</td> [facility] ([facility]) 2.625 ML paliperidone palmitate 312 MG/ML Prefilled Sy ringe [Invega] Invega Socorroza 04/03/2021 12:00:00 AM EDT 819 mg/2.625 compl eted <td ID="MedicationRxNorm_4">[id number]</td><td ID="MedicationMedication_4">Invega Trinza</td><td ID="MedicationRoute_4">intramuscularly</td><td ID="MedicationRouteConcept_4"></td><td ID="MedicationStartDate_4">04/03/2021</td><td ID="MedicationStopDate_4">07/02/2021</td><td ID="MedicationDosageFrequency_4">every three months</td><td ID="MedicationDuration_4">90</td><td ID="MedicationFormulaStrength_4">819 mg/2.625 mL</td><td ID="MedicationDosageForm_4">syringe</td><td ID="MedicationDosageFormCode_4"></td><td ID="MedicationDosageDescription_4"></td><td ID="MedicationMedicationId_4">[id number]</td><td ID="MedicationAccount_4">[id number]</td><td ID="MedicationNpid_4">[id number]</td><td ID="MedicationAuthorFirstName_4">Anselmo</td><td ID="MedicationAuthorLastName_4">Amilcar</td><td ID="MedicationTaxonomyCode_4">[id number]</td><td ID="MedicationTaxonomyDesc_4"> Nurse Practitioner</td><td ID="MedicationPhoneNumber_4">[phone]</td> [facility] ([facility]) haloperidol decanoate haloperidol decanoate 04/03/2021 12:00:00 AM EDT 100 mg/mL completed <td ID="Me dicationRxNorm_2">[id number]</td><td ID="MedicationMedication_2">haloperidol decanoate</td><td ID="MedicationRoute_2">intramuscularly</td><td ID="MedicationRouteConcept_2"> </td><td ID="MedicationStartDate_2">04/03/2021</td><td ID="MedicationStopDate_2">04/03/2021</td><td ID="MedicationDosageFrequency_2">every four weeks</td><td ID="MedicationDuration_2">28</td><td ID="MedicationFormulaStrength_2">100 mg/mL</td><td ID="MedicationDosageForm_2">solution</td><td ID="MedicationDosageFormCode_2"></td><td ID="MedicationDosageDescription_2"></td><td ID="MedicationMedicationId_2">[id number]</td><td ID="MedicationAccount_2">[id number]</td><td ID="MedicationNpid_2">[id number]</td><td ID="MedicationAuthorFirstName_2">Anselmo</td><td ID="MedicationAuthorLastName_2">Amilcar</td><td ID="MedicationTaxonomyCode_2">[id number]</td><td ID="MedicationTaxonomyDesc_2"> Nurse Practitioner</td><td ID="MedicationPhoneNumber_2">[phone]</td> [facility] benztropine mesylate 1 MG Oral Tablet benztropine 04/03/2021 12:00 :00 AM EDT 1 mg by mouth completed <td ID="Me dicationRxNorm_2">420178</td><td ID="MedicationMedication_2">benztropine</td><td ID="MedicationRoute_2">by mouth</td><td ID="MedicationRouteConcept_2">S93040</td><td ID="MedicationStartDate_2">04/03/2021</td><td ID="MedicationStopDate_2">05/03/2021</td><td ID="MedicationDosageFrequency_2">at bedtime</td><td ID="MedicationDuration_2">30</td><td ID="MedicationFormulaStrength_2">1 mg</td><td ID="MedicationDosageForm_2">tablet</td><td ID="MedicationDosageFormCode_2"></td><td ID="MedicationDosageDescription_2"></td><td ID="MedicationMedicationId_2">[id number]</td><td ID="MedicationAccount_2">[id number]</td><td ID="MedicationNpid_2">[id number]</td><td ID="MedicationAuthorFirstName_2">Anselmo</td><td ID="MedicationAuthorLastName_2">Amilcar</td><td ID="MedicationTaxonomyCode_2">[id number]</td><td ID="MedicationTaxonomyDesc_2">Nurse Practitioner</td><td ID="MedicationPhoneNumber_2">[phone]</td> [facility] ([facility]) olanzapine 5 MG Oral Tablet [Zyprexa] Zyprexa 04/03/2021 12:00:00 AM EDT 5 mg by mouth completed <td ID="Medica tionRxNorm_1">663745</td><td ID="MedicationMedication_1">Zyprexa</td><td ID="MedicationRoute_1">by mouth</td><td ID="MedicationRouteConcept_1">E57241</td><td ID="MedicationStartDate_1">04/03/2021</td><td ID="MedicationStopDate_1">05/03/2021</td><td ID="MedicationDosageFrequency_1">at bedtime</td><td ID="MedicationDuration_1">30</td><td ID="MedicationFormulaStrength_1">5 mg</td><td ID="MedicationDosageForm_1">tablet</td><td ID="MedicationDosageFormCode_1"></td><td ID="MedicationDosageDescription_1"></td><td ID="MedicationMedicationId_1">[id number]</td><td ID="MedicationAccount_1">[id number]</td><td ID="MedicationNpid_1">[id number]</td><td ID="MedicationAuthorFirstName_1">Anselmo</td><td ID="MedicationAuthorLastName_1">Amilcar</td><td ID="MedicationTaxonomyCode_1">[id number]</td><td ID="MedicationTaxonomyDesc_1">Nurse Practitioner</td><td ID="MedicationPhoneNumber_1">[phone]</td> [facility] ([facility]) 2.625 ML paliperidone palmitate 312 MG/ML Prefilled Sy ringe [Invega] Invega Socorroza 04/03/2021 12:00:00 AM EDT 819 mg/2.625 compl eted <td ID="MedicationRxNorm_5">[id number]</td><td ID="MedicationMedication_5">Invega Trinza</td><td ID="MedicationRoute_5">intramuscularly</td><td ID="MedicationRouteConcept_5"></td><td ID="MedicationStartDate_5">04/03/2021</td><td ID="MedicationStopDate_5">07/02/2021</td><td ID="MedicationDosageFrequency_5">every three months</td><td ID="MedicationDuration_5">90</td><td ID="MedicationFormulaStrength_5">819 mg/2.625 mL</td><td ID="MedicationDosageForm_5">syringe</td><td ID="MedicationDosageFormCode_5"></td><td ID="MedicationDosageDescription_5"></td><td ID="MedicationMedicationId_5">[id number]</td><td ID="MedicationAccount_5">[id number]</td><td ID="MedicationNpid_5">[id number]</td><td ID="MedicationAuthorFirstName_5">Anselmo</td><td ID="MedicationAuthorLastName_5">Amilcar</td><td ID="MedicationTaxonomyCode_5">[id number]</td><td ID="MedicationTaxonomyDesc_5"> Nurse Practitioner</td><td ID="MedicationPhoneNumber_5">[phone]</td> [facility] ([facility]) benztropine mesylate 1 MG Oral Tablet benztropine 04/03/2021 12:00 :00 AM EDT 1 mg by mouth completed <td ID="Me dicationRxNorm_4">128640</td><td ID="MedicationMedication_4">benztropine</td><td ID="MedicationRoute_4">by mouth</td><td ID="MedicationRouteConcept_4">P57812</td><td ID="MedicationStartDate_4">04/03/2021</td><td ID="MedicationStopDate_4">05/03/2021</td><td ID="MedicationDosageFrequency_4">at bedtime</td><td ID="MedicationDuration_4">30</td><td ID="MedicationFormulaStrength_4">1 mg</td><td ID="MedicationDosageForm_4">tablet</td><td ID="MedicationDosageFormCode_4"></td><td ID="MedicationDosageDescription_4"></td><td ID="MedicationMedicationId_4">[id number]</td><td ID="MedicationAccount_4">[id number]</td><td ID="MedicationNpid_4">[id number]</td><td ID="MedicationAuthorFirstName_4">Anselmo</td><td ID="MedicationAuthorLastName_4">Amilcar</td><td ID="MedicationTaxonomyCode_4">[id number]</td><td ID="MedicationTaxonomyDesc_4">Nurse Practitioner</td><td ID="MedicationPhoneNumber_4">[phone]</td> [facility] ([facility]) olanzapine 5 MG Oral Tablet [Zyprexa] Zyprexa 04/03/2021 12:00:00 AM EDT 5 mg by mouth completed <td ID="Medica tionRxNorm_3">841051</td><td ID="MedicationMedication_3">Zyprexa</td><td ID="MedicationRoute_3">by mouth</td><td ID="MedicationRouteConcept_3">I25566</td><td ID="MedicationStartDate_3">04/03/2021</td><td ID="MedicationStopDate_3">05/03/2021</td><td ID="MedicationDosageFrequency_3">at bedtime</td><td ID="MedicationDuration_3">30</td><td ID="MedicationFormulaStrength_3">5 mg</td><td ID="MedicationDosageForm_3">tablet</td><td ID="MedicationDosageFormCode_3"></td><td ID="MedicationDosageDescription_3"></td><td ID="MedicationMedicationId_3">[id number]</td><td ID="MedicationAccount_3">[id number]</td><td ID="MedicationNpid_3">[id number]</td><td ID="MedicationAuthorFirstName_3">Anselmo</td><td ID="MedicationAuthorLastName_3">Amilcar</td><td ID="MedicationTaxonomyCode_3">[id number]</td><td ID="MedicationTaxonomyDesc_3">Nurse Practitioner</td><td ID="MedicationPhoneNumber_3">[phone]</td> [facility] ([facility]) 2.625 ML paliperidone palmitate 312 MG/ML Prefilled Sy ringe [Invega] Invega Trinza 04/03/2021 12:00:00 AM EDT 819 mg/2.625 compl eted <td ID="MedicationRxNorm_2">[id number]</td><td ID="MedicationMedication_2">Invega Trinza</td><td ID="MedicationRoute_2">intramuscularly</td><td ID="MedicationRouteConcept_2"></td><td ID="MedicationStartDate_2">04/03/2021</td><td ID="MedicationStopDate_2">07/02/2021</td><td ID="MedicationDosageFrequency_2">every three months</td><td ID="MedicationDuration_2">90</td><td ID="MedicationFormulaStrength_2">819 mg/2.625 mL</td><td ID="MedicationDosageForm_2">syringe</td><td ID="MedicationDosageFormCode_2"></td><td ID="MedicationDosageDescription_2"></td><td ID="MedicationMedicationId_2">[id number]</td><td ID="MedicationAccount_2">[id number]</td><td ID="MedicationNpid_2">[id number]</td><td ID="MedicationAuthorFirstName_2">Anselmo</td><td ID="MedicationAuthorLastName_2">Amilcar</td><td ID="MedicationTaxonomyCode_2">[id number]</td><td ID="MedicationTaxonomyDesc_2"> Nurse Practitioner</td><td ID="MedicationPhoneNumber_2">[phone]</td> [facility] ([facility]) haloperidol decanoate haloperidol decanoate 10/04/2020 12:00:00 AM EST 100 mg/mL completed <td ID="Me dicationRxNorm_1">[id number]</td><td ID="MedicationMedication_1">haloperidol decanoate</td><td ID="MedicationRoute_1">intramuscularly</td><td ID="MedicationRouteConcept_1"> </td><td ID="MedicationStartDate_1">10/04/2020</td><td ID="MedicationStopDate_1">04/03/2021</td><td ID="MedicationDosageFrequency_1">as directed</td><td ID="MedicationDuration_1">21</td><td ID="MedicationFormulaStrength_1">100 mg/mL</td><td ID="MedicationDosageForm_1">solution</td><td ID="MedicationDosageFormCode_1"></td><td ID="MedicationDosageDescription_1"></td><td ID="MedicationMedicationId_1">[id number]</td><td ID="MedicationAccount_1">[id number]</td><td ID="MedicationNpid_1">[id number]</td><td ID="MedicationAuthorFirstName_1">Victorino</td><td ID="MedicationAuthorLastName_1">Escobar</td><td ID="MedicationTaxonomyCode_1">[id number]</td><td ID="MedicationTaxonomyDesc_1"> Psychiatry</td><td ID="MedicationPhoneNumber_1">[phone]</td> [facility] ([facility] 100 mg/mL 10/02/2020 12:00:00 AM EST solution 1 INJECT 1ML INTRAMUSCULARLY EVERY 3 WEEKS INJECT 1ML INTRAMUSCULARLY EVERY 3 WEEKS SOLD: 10/04/2020 [facility] 10 mg 09/28/2020 12:00:00 AM EST [...] 50 mg by mouth completed <td ID="Medic ationRxNorm_5">188954</td><td ID="MedicationMedication_5">trazodone</td><td ID="MedicationRoute_5">by mouth</td><td ID="MedicationRouteConcept_5">H77265</td><td ID="MedicationStartDate_5">09/12/2020</td><td ID="MedicationStopDate_5">10/12/2020</td><td ID="MedicationDosageFrequency_5">every night</td><td ID="MedicationDuration_5">30</td><td ID="MedicationFormulaStrength_5">50 mg</td><td ID="MedicationDosageForm_5">tablet</td><td ID="MedicationDosageFormCode_5"></td><td ID="MedicationDosageDescription_5"></td><td ID="MedicationMedicationId_5">[id number]</td><td ID="MedicationAccount_5">[id number]</td><td ID="MedicationNpid_5">[id number]</td><td ID="MedicationAuthorFirstName_5">Kalli</td><td ID="MedicationAuthorLastName_5">Egorho</td><td ID="MedicationTaxonomyCode_5">[id number]</td><td ID="MedicationTaxonomyDesc_5">Nurse Practitioner</td><td ID="MedicationPhoneNumber_5">[phone]</td> [facility] ([facility]) Trazodone Hydrochloride 50 MG Oral Tablet trazodone 2019 12:00:00 AM EST 50 mg by mouth completed <td ID="Medic ationRxNorm_1">832308</td><td ID="MedicationMedication_1">trazodone</td><td ID="MedicationRoute_1">by mouth</td><td ID="MedicationRouteConcept_1">Q21687</td><td ID="MedicationStartDate_1">09/12/2020</td><td ID="MedicationStopDate_1">10/12/2020</td><td ID="MedicationDosageFrequency_1">every night</td><td ID="MedicationDuration_1">30</td><td ID="MedicationFormulaStrength_1">50 mg</td><td ID="MedicationDosageForm_1">tablet</td><td ID="MedicationDosageFormCode_1"></td><td ID="MedicationDosageDescription_1"></td><td ID="MedicationMedicationId_1">86573</td><td ID="MedicationAccount_1">[id number]</td><td ID="MedicationNpid_1">[id number]</td><td ID="MedicationAuthorFirstName_1">Kalli</td><td ID="MedicationAuthorLastName_1">Egorho</td><td ID="MedicationTaxonomyCode_1">[id number]</td><td ID="MedicationTaxonomyDesc_1">Nurse Practitioner</td><td ID="MedicationPhoneNumber_1">[phone]</td> [facility] ([facility]) Haldol Decanoate Haldol Decanoate 09/12/2020 12:00:00 AM EST 100 mg/mL completed <td ID="MedicationRx Norm_4">[id number]</td><td ID="MedicationMedication_4">Haldol Decanoate</td><td ID="MedicationRoute_4">intramuscularly</td><td ID="MedicationRouteConcept_4"></td><td ID="MedicationStartDate_4">09/12/2020</td><td ID="MedicationStopDate_4">09/15/2020</td><td ID="MedicationDosageFrequency_4">as directed</td><td ID="MedicationDuration_4">1</td><td ID="MedicationFormulaStrength_4">100 mg/mL</td><td ID="MedicationDosageForm_4">solution</td><td ID="MedicationDosageFormCode_4"></td><td ID="MedicationDosageDescription_4"></td><td ID="MedicationMedicationId_4">[id number]</td><td ID="MedicationAccount_4">[id number]</td><td ID="MedicationNpid_4">[id number]</td><td ID="MedicationAuthorFirstName_4">Kalli</td><td ID="MedicationAuthorLastName_4">Egorho</td><td ID="MedicationTaxonomyCode_4">[id number]</td><td ID="MedicationTaxonomyDesc_4">Nurse Practitioner</td><td ID="MedicationPhoneNumber_4">[phone]</td> [facility] ([facility]) quetiapine 300 MG Oral Tablet quetiapine 01/06/2020 12:00:00 AM EST 300 mg completed <td ID="Medicat ionRxNorm_4">535252</td><td ID="MedicationMedication_4">quetiapine</td><td ID="MedicationRoute_4"></td><td ID="MedicationRouteConcept_4"></td><td ID="MedicationStartDate_4">01/06/2020</td><td ID="MedicationStopDate_4">01/05/2021</td><td ID="MedicationDosageFrequency_4">at bedtime</td><td ID="MedicationDuration_4">30</td><td ID="MedicationFormulaStrength_4">300 mg</td><td ID="MedicationDosageForm_4">tablet</td><td ID="MedicationDosageFormCode_4"></td><td ID="MedicationDosageDescription_4"></td><td ID="MedicationMedicationId_4">[id number]</td><td ID="MedicationAccount_4">[id number]</td><td ID="MedicationNpid_4">[id number]</td><td ID="MedicationAuthorFirstName_4">Dane</td><td ID="MedicationAuthorLastName_4">Loida</td><td ID="MedicationTaxonomyCode_4">[id number]</td><td ID="MedicationTaxonomyDesc_4">Psychiatric/Mental Health</td><td ID="MedicationPhoneNumber_4">[phone]</td> [facility] ([facility]) quetiapine 300 MG Oral Tablet quetiapine 01/06/2020 12:00:00 AM EST 300 mg completed <td ID="Medicat ionRxNorm_1">317133</td><td ID="MedicationMedication_1">quetiapine</td><td ID="MedicationRoute_1"></td><td ID="MedicationRouteConcept_1"></td><td ID="MedicationStartDate_1">01/06/2020</td><td ID="MedicationStopDate_1">01/05/2021</td><td ID="MedicationDosageFrequency_1">at bedtime</td><td ID="MedicationDuration_1">30</td><td ID="MedicationFormulaStrength_1">300 mg</td><td ID="MedicationDosageForm_1">tablet</td><td ID="MedicationDosageFormCode_1"></td><td ID="MedicationDosageDescription_1"></td><td ID="MedicationMedicationId_1">44675</td><td ID="MedicationAccount_1">[id number]</td><td ID="MedicationNpid_1">[id number]</td><td ID="MedicationAuthorFirstName_1">Dane</td><td ID="MedicationAuthorLastName_1">Highspire</td><td ID="MedicationTaxonomyCode_1">[id number]</td><td ID="MedicationTaxonomyDesc_1">Psychiatric/Mental Health</td><td ID="MedicationPhoneNumber_1">[phone]</td> [facility] ([facility]) quetiapine 300 MG Oral Tablet quetiapine 01/06/2020 12:00:00 AM EST 300 mg completed <td ID="Medicat ionRxNorm_5">837302</td><td ID="MedicationMedication_5">quetiapine</td><td ID="MedicationRoute_5"></td><td ID="MedicationRouteConcept_5"></td><td ID="MedicationStartDate_5">01/06/2020</td><td ID="MedicationStopDate_5">01/05/2021</td><td ID="MedicationDosageFrequency_5">at bedtime</td><td ID="MedicationDuration_5">30</td><td ID="MedicationFormulaStrength_5">300 mg</td><td ID="MedicationDosageForm_5">tablet</td><td ID="MedicationDosageFormCode_5"></td><td ID="MedicationDosageDescription_5"></td><td ID="MedicationMedicationId_5">[id number]</td><td ID="MedicationAccount_5">[id number]</td><td ID="MedicationNpid_5">[id number]</td><td ID="MedicationAuthorFirstName_5">Dane</td><td ID="MedicationAuthorLastName_5">Highspire</td><td ID="MedicationTaxonomyCode_5">[id number]</td><td ID="MedicationTaxonomyDesc_5">Psychiatric/Mental Health</td><td ID="MedicationPhoneNumber_5">[phone]</td> [facility] ([facility]) Aristada Aristada 12/20/2019 12:00:00 AM EST mg/3.9 completed <td ID="MedicationRxNorm_3">[id number]</td><td ID="MedicationMedication_3">Aristada</td><td ID="MedicationRoute_3">intramuscularly</td><td ID="MedicationRouteConcept_3"></td><td ID="MedicationStartDate_3">12/20/2019</td><td ID="MedicationStopDate_3">09/12/2020</td><td ID="MedicationDosageFrequency_3"></td><td ID="MedicationDuration_3"></td><td ID="MedicationFormulaStrength_3">1,064 mg/3.9 mL</td><td ID="MedicationDosageForm_3">suspension,extended rel syring</td><td ID="MedicationDosageFormCode_3"></td><td ID="MedicationDosageDescription_3">as directed</td><td ID="MedicationMedicationId_3">99570</td><td ID="MedicationAccount_3">[id number]</td><td ID="MedicationNpid_3">[id number]</td><td ID="MedicationAuthorFirstName_3">Dane</td><td ID="MedicationAuthorLastName_3">Highspire</td><td ID="MedicationTaxonomyCode_3">[id number]</td><td ID="MedicationTaxonomyDesc_3"> Psychiatric/Mental Health</td><td ID="MedicationPhoneNumber_3">[phone]</td> [facility] ([facility]) Trazodone Hydrochloride 50 MG Oral Tablet trazodone 2018 12:00:00 AM EDT 50 mg by mouth completed <td ID="Medic ationRxNorm_2">493249</td><td ID="MedicationMedication_2">trazodone</td><td ID="MedicationRoute_2">by mouth</td><td ID="MedicationRouteConcept_2">U28459</td><td ID="MedicationStartDate_2">06/10/2019</td><td ID="MedicationStopDate_2">09/12/2020</td><td ID="MedicationDosageFrequency_2">at bedtime</td><td ID="MedicationDuration_2"></td><td ID="MedicationFormulaStrength_2">50 mg</td><td ID="MedicationDosageForm_2">tablet</td><td ID="MedicationDosageFormCode_2"></td><td ID="MedicationDosageDescription_2"></td><td ID="MedicationMedicationId_2">[id number]</td><td ID="MedicationAccount_2">[id number]</td><td ID="MedicationNpid_2">[id number]</td><td ID="MedicationAuthorFirstName_2">Dane</td><td ID="MedicationAuthorLastName_2">Highspire</td><td ID="MedicationTaxonomyCode_2">[id number]</td><td ID="MedicationTaxonomyDesc_2">Psychiatric/Mental Health</td><td ID="MedicationPhoneNumber_2">[phone]</td> [facility] ([facility]) Amantadine Hydrochloride 100 MG Oral Capsule amantadine HCl 07/30/2017 12:00:00 AM EDT 100 mg by mouth completed <td ID="MedicationRxNorm_1">895874</td><td ID="MedicationMedication_1">amantadine HCl</td><td ID="MedicationRoute_1">by mouth</td><td ID="MedicationRouteConcept_1">Y98217</td><td ID="MedicationStartDate_1">07/30/2017</td><td ID="MedicationStopDate_1">09/12/2020</td><td ID="MedicationDosageFrequency_1">every morning</td><td ID="MedicationDuration_1"></td><td ID="MedicationFormulaStrength_1">100 mg</td><td ID="MedicationDosageForm_1">capsule</td><td ID="MedicationDosageFormCode_1"></td><td ID="MedicationDosageDescription_1"></td><td ID="MedicationMedicationId_1">[id number]</td><td ID="MedicationAccount_1">[id number]</td><td ID="MedicationNpid_1">[id number]</td><td ID="MedicationAuthorFirstName_1">Dane</td><td ID="MedicationAuthorLastName_1">Highspire</td><td ID="MedicationTaxonomyCode_1">[id number]</td><td ID="MedicationTaxonomyDesc_1">Psychiatric/Mental Health</td><td ID="MedicationPhoneNumber_1">[phone]</td> [facility] ([facility]) Insurance Providers Payer name Policy type / Coverage type Policy ID Covered libertarian ID Covered libertarian's relationship to shafer Policy Shafer Plan Information Medicaid S [id number] S [id number] Managed Care - Community Plan [facility] P [id number] S [id number] Medicaid S [id number] S [id number] [facility] I [id number] Self [id number] UH I [id number] Self [id number] [facility] I [id number] Self [id number] Managed Care - UHC Community Plan P [id number] S [id number] Medicaid S [id number] S [id number] Managed Care - UHC Community Plan P [id number] S [id number] [employer] COMMUNITY PLAN MCDO [id number] SP [id number] [facility] MAN CRE [id number] SP [id number] [facility] [id number] SP [id number] SELF PAY [facility] OFFICE OF MENTAL HEALTH UNAVAILABLE S UNAVAILABLE MEDICAID [id number] S [id number] [facility] OFFICE OF MENTAL HEALTH [id number] S [id number] [employer] COMMUNITY PLAN MCDHMO [id number] SP [id number] [facility] OFFICE OF MENTAL HEALTH [id number] S [id number] [facility] [id number] SP [id number] SELF PAY ONLY [id number] SP [id number] [facility] [id number] SP [id number] SELF PAY SP [facility]) O [id number] S [id number] [facility] [id number] SP [id number] Self Pay P [facility] S [facility]) O [id number] S [id number] [facility] [id number] SP [id number] MEDICAID [id number] SP [id number] [facility] COMMUNITY PLAN [facility] [id number] SP [id number] MEDICAID [id number] SP [id number] Problems, Conditions, and Diagnoses Code Display Name Description Problem Type Effective Dates Data Source(s) F11.10 Opioid abuse, uncomplicated F11.10 - Opioid abus e, uncomplicated Diagnosis 02/27/2021 08:12:00 PM EDT [facility] 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, uncomplicated F16.10 - Hallucinogen abuse, uncomplicated Diagnosis 02/27/2021 08:12:00 PM EDT [facility] F25.9 Schizoaffective disorder, unspecified F2 5.9 - Schizoaffective disorder, unspecified Diagnosis 02/27/2021 08:12:00 PM EDT [facility] Z13.9 Encounter for screening, unspecified Z13 .9 - Encounter for screening, unspecified Diagnosis 02/27/2021 08:12:00 PM EDT [facility] schizophrenia, hallucinations, substance abuse schizophrenia, hallucinations, substance abuse Diagnosis 09/22/2020 02:27:00 PM [facility] F15.20 Other stimulant dependence, uncomplicate d Stimulant Use Disorder, Moderate: Amphetamine-type substance Condition 09/02/2021 12:00:00 AM EDT [facility] ([facility]) F10.20 Alcohol dependence, uncomplicated Alcohol Use Disorder , Severe Condition 09/02/2021 12:00:00 AM EDT [facility] ([facility]) F17.200 Nicotine dependence, unspecified, uncomp licated Tobacco Use Disorder, Moderate Condition 09/02/2021 12:00:00 AM EDT [facility] ([facility]) F12.20 Cannabis dependence, uncomplicated Cannabis Use Disorder, Moderate Condition 09/02/2021 12:00:00 AM EDT [facility] F20.9 Schizophrenia, unspecified Schizophrenia Condition 09/02/2021 12:00:00 AM EDT [facility] ([facility]) Surgeries/Procedures Procedure Description Date Indications Data Source(s) THERAPEUTIC PROPHYLACTIC/DX INJECTION SUBQ/IM 09/02/2021 12:00:00 AM EDT - 09/02/2021 12:00:00 AM EDT [facility] THERAPEUTIC PROPHYLACTIC/DX INJECTION SUBQ/IM 09/02/20 12:00:00 AM EDT [facility] ([facility]) Comprehensive medication services, per 15 minutes 07/29/2021 12:00:00 AM EDT - 07/29/2021 12:00:00 AM EDT [facility] ([facility]) Comprehensive medication services, per 15 minutes 07/29/2021 12:00:00 AM EDT [facility] ([facility]) Comprehensive medication services, per 15 minutes 06/24/2021 12:00:00 AM EDT - 06/24/2021 12:00:00 AM EDT [facility] ([facility]) Comprehensive medication services, per 15 minutes 06/24/2021 12:00:00 AM EDT [facility] ([facility]) THERAPEUTIC PROPHYLACTIC/DX INJECTION SUBQ/IM 05/27/2021 12:00:00 AM EDT - 05/27/2021 12:00:00 AM EDT [facility] THERAPEUTIC PROPHYLACTIC/DX INJECTION SUBQ/IM 05/27/20 12:00:00 AM EDT [facility] ([facility]) Brief Individual Psychotherapy - 30 min 05/13/2021 12:00:00 AM EDT - 05/13/2021 12:00:00 AM EDT [facility] Brief Individual Psychotherapy - 30 min 05/13/2021 12: 00:00 AM EDT [facility] ([facility]) Comprehensive medication services, per 15 minutes 04/04/2021 12:00:00 AM EDT - 04/04/2021 12:00:00 AM EDT [facility] ([facility]) Comprehensive medication services, per 15 minutes 04/03/2021 12:00:00 AM EDT [facility] ([facility]) OFFICE OUTPATIENT VISIT 15 MINUTES 04/03 12:00:00 AM EDT - 04/03/2021 12:00:00 AM EDT [facility] ([facility]) Psychotherapy ADD ON - 30 Minutes 04/03/2021 12:00:00 AM EDT [facility] ([facility]) OFFICE OUTPATIENT VISIT 15 MINUTES 04/03/2021 12:00:00 AM EDT [facility] ([facility]) OFFICE OUTPATIENT VISIT 15 MINUTES 03/27 12:00:00 AM EDT - 03/27/2021 12:00:00 AM EDT [facility] ([facility]) OFFICE OUTPATIENT VISIT 15 MINUTES 03/27/2021 12:00:00 AM EDT [facility] ([facility]) OFFICE OUTPATIENT VISIT 15 MINUTES 03/19 12:00:00 AM EDT - 03/19/2021 12:00:00 AM EDT [facility] ([facility]) OFFICE OUTPATIENT VISIT 15 MINUTES 03/19/2021 12:00:00 AM EDT [facility] ([facility]) OFFICE OUTPATIENT VISIT 15 MINUTES 02/12 12:00:00 AM EDT - 02/12/2021 12:00:00 AM EDT [facility] ([facility]) OFFICE OUTPATIENT VISIT 15 MINUTES 02/12/2021 12:00:00 AM EDT [facility] ([facility]) OFFICE OUTPATIENT VISIT 15 MINUTES 02/07 12:00:00 AM EDT - 02/07/2021 12:00:00 AM EDT [facility] ([facility]) OFFICE OUTPATIENT VISIT 15 MINUTES 02/07/2021 12:00:00 AM EDT [facility] ([facility]) Brief Individual Psychotherapy - 30 min 02/01/2021 12:00:00 AM EDT - 02/01/2021 12:00:00 AM EDT [facility] Brief Individual Psychotherapy - 30 min 02/01/2021 12: 00:00 AM EDT [facility] ([facility]) OFFICE OUTPATIENT VISIT 15 MINUTES 01/23 12:00:00 AM EDT - 01/23/2021 12:00:00 AM EDT [facility] ([facility]) OFFICE OUTPATIENT VISIT 15 MINUTES 01/23/2021 12:00:00 AM EDT [facility] ([facility]) THERAPEUTIC PROPHYLACTIC/DX INJECTION SUBQ/IM 01/23/2021 12:00:00 AM EDT - 01/23/2021 12:00:00 AM EDT [facility] THERAPEUTIC PROPHYLACTIC/DX INJECTION SUBQ/IM 01/24/20 12:00:00 AM EDT [facility] ([facility]) Comprehensive medication services, per 15 minutes 01/18/2021 12:00:00 AM EDT - 01/18/2021 12:00:00 AM EDT [facility] ([facility]) Comprehensive medication services, per 15 minutes 01/18/2021 12:00:00 AM EDT [facility] ([facility]) OFFICE OUTPATIENT VISIT 15 MINUTES 01/17 12:00:00 AM EDT - 01/17/2021 12:00:00 AM EDT [facility] ([facility]) OFFICE OUTPATIENT VISIT 15 MINUTES 01/17/2021 12:00:00 AM EDT [facility] ([facility]) MHC Telemed E/M Lvl 3--Est pt 01/01/2021 12:00:00 AM EST - 01/01/2021 12:00:00 AM EST [facility] ([facility]) MHC Telemed E/M Lvl 3--Est pt 01/01/2021 12:00:[address] [facility] ([facility]) THERAPEUTIC PROPHYLACTIC/DX INJECTION SUBQ/IM 12/28/2020 12:00:00 AM EST - 12/28/2020 12:00:00 AM EST [facility]ER[facility]UTIC PROPHYLACTIC/DX INJECTION SUBQ/IM 12/28/19 21 12:00:00 AM EST [facility] ([facility]) MHC Telemed E/M Lvl 3--Est pt 12/20/2020 12:00:00 AM EST - 12/20/2020 12:00:00 AM EST [facility] ([facility]) MHC Telemed E/M Lvl 3--Est pt 12/20/2020 12:00:[address] [facility] ([facility]) MHC Telemed E/M Lvl 3--Est pt 12/06/2020 12:00:00 AM EST - 12/06/2020 12:00:00 AM EST [facility] ([facility]) MHC Telemed E/M Lvl 3--Est pt 12/06/2020 12:00:[address] [facility] ([facility]) Comprehensive medication services, per 15 minutes 11/15/2020 12:00:00 AM EST - 11/15/2020 12:00:00 AM EST [facility] ([facility]) Comprehensive medication services, per 15 minutes 11/15/2020 12:00:00 AM EST [facility] ([facility]) OFFICE OUTPATIENT VISIT 15 MINUTES 11/15 12:00:00 AM EST - 11/15/2020 12:00:00 AM EST [facility] ([facility]) OFFICE OUTPATIENT VISIT 15 MINUTES 11/15/2020 12:00:00 AM EST [facility] ([facility]) THERAPEUTIC PROPHYLACTIC/DX INJECTION SUBQ/IM 10/18/2020 12:00:00 AM EST - 10/18/2020 12:00:00 AM EST [facility] THERAPEUTIC PROPHYLACTIC/DX INJECTION SUBQ/IM 10/18/20 20 12:00:00 AM EST [facility] ([facility]) THERAPEUTIC PROPHYLACTIC/DX INJECTION SUBQ/IM 10/15/2020 12:00:00 AM EST - 10/15/2020 12:00:00 AM EST [facility] THERAPEUTIC PROPHYLACTIC/DX INJECTION SUBQ/IM 10/15/20 20 12:00:00 AM EST [facility] ([facility]) THERAPEUTIC PROPHYLACTIC/DX INJECTION SUBQ/IM 10/04/2020 12:00:00 AM EST - 10/04/2020 12:00:00 AM EST [facility] THERAPEUTIC PROPHYLACTIC/DX INJECTION SUBQ/IM 10/04/20 20 12:00:00 AM EST [facility] ([facility]) OFFICE OUTPATIENT VISIT 15 MINUTES 10/04 12:00:00 AM EST - 10/04/2020 12:00:00 AM EST [facility] ([facility]) OFFICE OUTPATIENT VISIT 15 MINUTES 10/04/2020 12:00:00 AM EST [facility] ([facility]) OFFICE OUTPATIENT VISIT 15 MINUTES 09/12 12:00:00 AM EST - 09/12/2020 12:00:00 AM EST [facility] ([facility]) OFFICE OUTPATIENT VISIT 15 MINUTES 09/12/2020 12:00:00 AM EST [facility] ([facility]) THERAPEUTIC PROPHYLACTIC/DX INJECTION SUBQ/IM 09/12/2020 12:00:00 AM EST - 09/12/2020 12:00:00 AM EST [facility] THERAPEUTIC PROPHYLACTIC/DX INJECTION SUBQ/IM 09/12/20 20 12:00:00 AM EST [facility] ([facility]) OFFICE OUTPATIENT VISIT 15 MINUTES 08/10 12:00:00 AM EDT - 08/10/2020 12:00:00 AM EDT [facility] ([facility]) OFFICE OUTPATIENT VISIT 15 MINUTES 08/10/2020 12:00:00 AM EDT [facility] ([facility]) THERAPEUTIC PROPHYLACTIC/DX INJECTION SUBQ/IM 07/13/2020 12:00:00 AM EDT - 07/13/2020 12:00:00 AM EDT [facility] THERAPEUTIC PROPHYLACTIC/DX INJECTION SUBQ/IM 07/13/20 20 12:00:00 AM EDT [facility] ([facility]) Results ID Date Data Source [id number] 07/19/2021 10:40:00 AM EDT [facility] Name Value Range Interpretation Code Description Data Michelle rce(s) Supporting Document(s) SARS coronavirus 2 RNA [Presence] in Res piratory specimen by [facility]MI with probe detection NEGATIVE [facility] This lab was ordered by [facility] a nd reported by [facility]. ID Date Data Source [id number] 07/19/2021 09:50:00 AM EDT [facility] Name Value Range Interpretation Code Description Data Michelle rce(s) Supporting Document(s) SARS COVID ANTIGEN NEGATIVE [facility] This lab was ordered by [facility] a nd reported by [facility]. ID Date Data Source [id number] 06/04/2021 08:17:00 PM EDT [facility] Name Value Range Interpretation Code Description Data Michelle rce(s) Supporting Document(s) SARS coronavirus 2 RNA [Presence] in Res piratory specimen by OMI with probe detection NEGATIVE [facility] This lab was ordered by [facility] a nd reported by [facility]. ID Date Data Source [id number] 05/01/2021 01:57:00 PM EDT [facility] Name Value Range Interpretation Code Description Data Michelle rce(s) Supporting Document(s) SARS coronavirus 2 RNA [Presence] in Res piratory specimen by OMI with probe detection NEGATIVE [facility] This lab was ordered by [facility] a nd reported by [facility]. ID Date Data Source [id number] 04/19/2021 06:29:00 AM EDT [facility] Name Value Range Interpretation Code Description Data Michelle rce(s) Supporting Document(s) SARS coronavirus 2 RNA [Presence] in Res piratory specimen by OMI with probe detection NEGATIVE [facility] This lab was ordered by [facility] a nd reported by [facility]. ID Date Data Source [id number] 04/17/2021 05:50:00 PM EDT [facility] Name Value Range Interpretation Code Description Data Michelle rce(s) Supporting Document(s) SARS-CoV-2 (COVID-19) RNA [Presence] in Respiratory specimen by OMI with probe detection Not Detected [facility] This lab was ordered by [facility] and reported by [facility]. ID Date Data Source [id number] 02/28/2021 04:53:00 PM EDT [facility] [address] [place] [address] HEALTH INFORMATION MANAGEMENT History and Physical Report : [id number] Signed Patient: Gabo Parra Acct:[id number] Unit: Low [id number] : 1980 Loc: [facility] Room/Bed: 820-B Age/Sex: 40 / [...] charges for this visit?: Yes Inpt Consult [id number] Cons Level 1: Yes Signed By:Rambo Summers <<Signature on File>> Signed Date/Time: 02/28/211657 Co-Signer: Leonel Hubbard MD Co-Signed Date/Time: 02/28/211724 Initializing User: Rambo Summers NP 02/28/211652 52 52 Name Value Range Interpretation Code Description Data Michelle rce(s) Supporting Document(s) ID Date Data Source [id number] 02/28/2021 10:45:00 AM [facility] [address] [place] [address] HEALTH INFORMATION MANAGEMENT [facility] Psychosocial Summary : [id number] [phone] Signed Patient: Gabo Parra Acct:[id number] Unit: [id number] : 1980 Loc: [facility] Room/Bed: 820-B Age/Sex: 40 / M ADM Date: 02/27/21 cc: General/History - Presenting Problem Presenting Problem: Social Summary/Discharge plan Presenting Problem Gabo is a40 yo AAM, extensive psych hx, also problems with substance abuse admitted on a transfer from [facility] ER brought in there by his CW as pt was feeling depressed, suicidal, also hallucinating and after abusing drugs History. tates was partially complaint with meds. Not able to name his psychiatrist in [place], not able to name the therapist. Gives h/o 5 to 6 inpt psych txs, last one few months ago, "I can't remember the place, they send me from [facility]. " Also, h'o inpt psych tx at [facility]. H/o self harm time, tried [...] Person?: No Are you part of any restoration/spirtual community?: Yes (Taoist ) - Current Living/Relationship History Current Living Arrangement: House Who Do You Live With?: Mother. OK to Return Home: Yes Weapons in household: No Currently in a Relationship?: No Ever Been ?: No Any Children?: 2 - Family History Where Were You Born/Raised[place] Who Was in Home?: Mother, Father How [...] Reducing Risk: Complies with Tx/Meds, Future Oriented, Anabaptism Beliefs Mental Status Treatment - Mental Status [...] rce(s) Supporting Document(s) ID Date Data Source [id number] 02/27/2021 04:28:00 PM EDT [facility] Name Value Range Interpretation Code Description Data Michelle rce(s) Supporting Document(s) SARS coronavirus 2 RNA [Presence] in Res piratory specimen by OMI with probe detection NEGATIVE [facility] This lab was ordered by [facility] a nd reported by [facility]. ID Date Data Source [id number] 01/23/2021 01:03:00 AM EDT [facility] Name Value Range Interpretation Code Description Data Michelle rce(s) Supporting Document(s) SARS coronavirus 2 RNA [Presence] in Res piratory specimen by [facility]MI with probe detection NEGATIVE [facility] This lab was ordered by [facility] a nd reported by [facility]. ID Date Data Source [id number] 10/17/2020 12:19:00 AM EST [facility] Name Value Range Interpretation Code Description Data Michelle rce(s) Supporting Document(s) SARS coronavirus 2 RNA [Presence] in Res piratory specimen by [facility]MI with probe detection [facility] This lab was ordered by [facility] a nd reported by [facility]. Procedure Social History Code Duration Value Status Description Data Source(s ) Smoking 09/02/2021 12:00:00 AM EDT Unknown if ever smoked comp leted Unknown if ever smoked [facility] ([facility]) Smoking 07/29/2021 12:00:00 AM EDT Unknown if ever smoked comp leted Unknown if ever smoked [facility] ([facility]) Smoking 06/24/2021 12:00:00 AM EDT Unknown if ever smoked comp leted Unknown if ever smoked [facility] ([facility]) Smoking 05/27/2021 12:00:00 AM EDT Unknown if ever smoked comp leted Unknown if ever smoked [facility] ([facility]) Smoking 05/13/2021 12:00:00 AM EDT Unknown if ever smoked comp leted Unknown if ever smoked [facility] ([facility]) Smoking 04/04/2021 12:00:00 AM EDT Unknown if ever smoked comp leted Unknown if ever smoked [facility] ([facility]) Smoking 04/03/2021 12:00:00 AM EDT Unknown if ever smoked comp leted Unknown if ever smoked [facility] ([facility]) Smoking 03/27/2021 12:00:00 AM EDT Unknown if ever smoked comp leted Unknown if ever smoked [facility] ([facility]) Smoking 03/19/2021 12:00:00 AM EDT Unknown if ever smoked comp leted Unknown if ever smoked [facility] ([facility]) Smoking 02/12/2021 12:00:00 AM EDT Unknown if ever smoked comp leted Unknown if ever smoked [facility] ([facility]) Smoking 02/07/2021 12:00:00 AM EDT Unknown if [...] to non-numeric resu lts) 0.00 in [facility] ([facility]) Body weight Measured 0.00 lbs Normal (applies to n on-numeric results) 0.00 lbs [facility] ([facility]) Body mass index (BMI) [Ratio] 0.00 kg/m2 No rmal (applies to non-numeric results) 0.00 kg/m2 [facility] ([facility]) Systolic blood pressure 0 mm[Hg] Normal (applies t o non-numeric results) 0 mm[Hg] [facility]) Diastolic blood pressure 0 mm[Hg] Normal (applies to non-numeric results) 0 mm[Hg] [facility] ([facility]) Body height 0.00 in Normal (applies to non-numeric resu lts) 0.00 in [facility] ([facility]) Body weight Measured 0.00 lbs Normal (applies to n on-numeric results) 0.00 lbs [facility]) Body mass index (BMI) [Ratio] 0.00 kg/m2 No rmal (applies to non-numeric results) 0.00 kg/m2 [facility] ([facility]) Systolic blood pressure 0 mm[Hg] Normal (applies t o non-numeric results) 0 mm[Hg] [facility] ([facility]) Diastolic blood pressure 0 mm[Hg] Normal (applies to non-numeric results) 0 mm[Hg] [facility] ([facility]) Body height 0.00 in Normal (applies to non-numeric resu lts) 0.00 in [facility] ([facility]) Body weight Measured 0.00 lbs Normal (applies to n on-numeric results) 0.00 lbs [facility] ([facility]) Body mass index (BMI) [Ratio] 0.00 kg/m2 No rmal (applies to non-numeric results) 0.00 kg/m2 [facility] ([facility]) Systolic blood pressure 0 mm[Hg] Normal (applies t o non-numeric results) 0 mm[Hg] [facility] ([facility]) Diastolic blood pressure 0 mm[Hg] Normal (applies to non-numeric results) 0 mm[Hg] [facility] ([facility]) Body height 0.00 in Normal (applies to non-numeric resu lts) 0.00 in [facility] ([facility]) Body weight Measured 0.00 lbs Normal (applies to n on-numeric results) 0.00 lbs [facility] ([facility]) Body mass index (BMI) [Ratio] 0.00 kg/m2 No rmal (applies to non-numeric results) 0.00 kg/m2 [facility] ([facility]) Systolic blood pressure 0 mm[Hg] Normal (applies t o non-numeric results) 0 mm[Hg] [facility] ([facility]) Diastolic blood pressure 0 mm[Hg] Normal (applies to non-numeric results) 0 mm[Hg] [facility] ([facility]) ID Date Data Source [id number] 09/22/2020 02:27:59 PM [facility] Name Value Range Interpretation Code Description Data Source(s) TRANSFER FROM [facility]
[2021-09-10 04:33] LABS: AMPHETAMINES LEVEL URINE NEGATIVE (NEGATIVE); BARBITURATES URINE NEGATIVE (NEGATIVE); BENZODIAZEPINES URINE NEGATIVE (NEGATIVE); CANNABINOIDS URINE POSITIVE (NEGATIVE); COCAINE METABOLITE URINE NEGATIVE (NEGATIVE); METHADONE URINE NEGATIVE (NEGATIVE); OPIATES URINE NEGATIVE (NEGATIVE); PHENCYCLIDINE URINE NEGATIVE (NEGATIVE)
[2021-09-10 04:50] LABS: HEMATOCRIT 44.4 % (42.0-52.0); HEMOGLOBIN 14.6 g/dl (13.5-17.5); MEAN CORPUSCULAR HEMOGLOBIN 29.7 pg (27.0-33.0); MEAN CORPUSCULAR HGB CONC 32.9 g/dl (32.0-36.5); MEAN CORPUSCULAR VOLUME 90.4 fl (80.0-96.0); PLATELET COUNT, AUTOMATED 274 10^3/uL (150-450); RED BLOOD COUNT 4.91 10^6/uL (4.30-6.10); WHITE BLOOD COUNT 7.7 10^3/uL (4.0-10.0)
[2021-09-10 05:25] LABS: ACETAMINOPHEN LEVEL < 2.0 UG/ML (10.0-30.0); ALBUMIN 3.2 GM/DL (3.2-5.2); ALT/SGPT 71 U/L (12-78); BILIRUBIN,DIRECT 0.1 MG/DL (0.0-0.2); BILIRUBIN,TOTAL 0.5 MG/DL (0.2-1.0); BLOOD UREA NITROGEN 16 MG/DL (7-18); CALCIUM LEVEL 8.8 MG/DL (8.5-10.1); CARBON DIOXIDE LEVEL 31 MEQ/L (21-32); CHLORIDE LEVEL 104 MEQ/L (98-107); CREATININE FOR GFR 0.84 MG/DL (0.70-1.30); ETHYL ALCOHOL (ETHANOL) < 0.003 % (0.000-0.010); GLOMERULAR FILTRATION RATE > 60.0 (>60); GLUCOSE, FASTING 77 MG/DL (70-100); POTASSIUM SERUM 3.9 MEQ/L (3.5-5.1); SALICYLATE LEVEL 1.8 MG/DL (5.0-30.0); SODIUM LEVEL 142 MEQ/L (136-145)
[2021-09-10 08:10] VITALS: BP 116/73
== END 2021-09-10 12:29 | disposition home or self-care (01) ==
LOC: M ED 01:03
DX: F29 Unspecified psychosis not due to a substance or known physiological condition (principal); F19.10 Other psychoactive substance abuse, uncomplicated; F20.9 Schizophrenia, unspecified; F17.200 Nicotine dependence, unspecified, uncomplicated; Z79.899 Other long term (current) drug therapy

== ENCOUNTER 2021-09-12 04:57 | Emergency (ER) | payer OTHER ==
[~2021-09-12] VITALS: Ht 167.6 cm; Wt 56.8 kg
--- OUTSIDE RECORDS SUMMARY | 2021-09-12 05:11 | CCD ---
Author Author [facility] Organization [facility] Address Unknown Phone Unavailable Support Name Relationship Address Phone Hudson GUTIERREZ, Pasha Next Of Kin [address] [place] [address] Diamante Costa Next Of Kin [address] [place] [address] Dwain Joseph DO Next Of Kin [address] [place] [address] Cameron Bingham MD Next Of Kin [address] [place] [address] SELFGARY Next Of Kin [address] [place] [address] YONI JACK Next Of Kin [address] [place] [address] CORRECTIONAL, MOAPA Next Of Kin [address] [place] [address] Monique Conklin MD Next Of Kin [address] [place] [phone] YONI CALHOUN Next Of Kin [address] [place] [address] Isabelle Manning Next Of Kin [address] [place] [address] Pat Gallo DO Next Of Kin [address] [place] [address] DISABLED Next Of Kin Unknown Unavailable Blair Self Next Of Kin [address] [place] [phone] SELF, JUNIOR Next Of Kin [address] [place] [address] UE Next Of Kin Unknown Unavailable SIMON WALL Next Of Kin [address] [place] [address] SELF, JUNIOR [address] [place] [address] Unavailable Care Team Providers Care Blood Bank Manager Name Role Phone Farden, M Rambo Unavailable [...] Unavailable Gina Nash Unavailable AMILCAR, H ANSELMO AEROTRIANGULATION SPECIALIST Unavailable Unavailable AMILCAR, H ANSELMO AEROTRIANGULATION SPECIALIST Unavailable Unavailable AMILCAR, H ANSELMO AEROTRIANGULATION SPECIALIST Unavailable Unavailable AMILCAR, H ANSELMO AEROTRIANGULATION SPECIALIST Unavailable Unavailable AMILCAR, H ANSELMO AEROTRIANGULATION SPECIALIST Unavailable Unavailable AMILCAR, H ANSELMO AEROTRIANGULATION SPECIALIST Unavailable Unavailable AMILCAR, H ANSELMO AEROTRIANGULATION SPECIALIST Unavailable Unavailable AMILCAR, H ANSELMO AEROTRIANGULATION SPECIALIST Unavailable Unavailable AMILCAR, H ANSELMO AEROTRIANGULATION SPECIALIST Unavailable Unavailable Jossie Marcelino Unavailable Rotella, Jossy [...] is protected by Article 27-F of the [facility] Public Health law. If you continue you may have access to information: Regarding HIV / AIDS; Provided by facilities licensed or operated by the [facility] Office of Mental Health; or Provided by the [facility] Office for People With Developmental Disabilities. If such information is present, then the following [facility] mandated warning applies: This information [...] law may result in a fine or shelter sentence or both. A general authorization for the release of medical or other information is NOT sufficient authorization for further disc losure. Allergies and Adverse Reactions Type Description Substance Reaction Status Data Source(s ) Drug allergy No Known Allergies No Known Allergies [facility] Propensity to adverse reactions NO KNOWN ALLERGIES NO KNOWN ALLERGIES [facility] Encounters Encounter Providers Location Date Indications Data Source(s ) Injectable Psychotropic Medication Administration (Inj ection Only) Attender: Thalia Carreno [facility] 09/02/2021 10:30:00 AM EDT - 09/02/2021 10:30:00 AM EDT [facility] ([facility]) Attender: Thalia Carreno 09/02/2021 12:00:00 AM EDT [facility] ([facility]) Injectable Medication Administration w/ Monitoring & E ducation Attender: [facility] 07/29/2021 02:30:00 AM EDT - 07/29/2021 02:30:00 AM EDT [facility] ([facility]) Attender: Pam Isbellpo 07/29/2021 12:00:00 AM EDT [facility] ([facility]) Injectable Medication Administration w/ Monitoring & E ducation Attender: Thalia Carreno [facility] 06/24/2021 10:45:00 AM EDT - 06/24/2021 10:45:00 AM EDT [facility] ([facility]) Attender: Thalia Carreno 06/24/2021 12:00:00 AM EDT [facility] ([facility]) Injectable Psychotropic Medication Administration (Inj ection Only) Attender: Thalia Carreno [facility] 05/27/2021 08:15:00 AM EDT - 05/27/2021 08:15:00 AM EDT [facility] ([facility]) Attender: Thalia Carreno 05/27/2021 12:00:00 AM EDT [facility] ([facility]) Brief Individual Psychotherapy - 30 min Attender: Gina yun [facility] 05/13/2021 08:30:00 AM EDT - 05/13/2021 08:30:00 AM EDT [facility] ([facility]) Attender: Gina Nash 05/13/2021 12:00:00 AM EDT [facility] ([facility]) Attender: Pam Larry 04/04/2021 12:00:00 AM EDT [facility] ([facility]) Injectable Medication Administration w/ Monitoring & E ducation Attender: Pam Borjapo [facility] Maria Alejandra 04/03/2021 09:00:00 AM EDT - 04/03/2021 09:00:00 AM EDT [facility] ([facility]) Outpatient Attender: ANSELMO APONTE NP [facility] Mike garcía 04/03/2021 08:30:00 AM EDT - 04/03/2021 08:30:00 AM EDT [facility] ([facility]) Attender: ANSELMO APONTE NP 04/03/2021 12:00:00 AM EDT [facility] ([facility]) Outpatient Attender: ANSELMO APONTE NP [facility] Mike garcía 03/27/2021 11:00:00 AM EDT - 03/27/2021 11:00:00 AM EDT [facility] ([facility]) Attender: ANSELMO APONTE NP 03/27/2021 12:00:00 AM EDT [facility] ([facility]) Outpatient Attender: ANSELMO APONTE NP [facility] Mike garcía 03/19/2021 03:00:00 AM EDT - 03/19/2021 03:00:00 AM EDT [facility] ([facility]) Attender: ANSELMO APONTE NP 03/19/2021 12:00:00 AM EDT [facility] ([facility]) Inpatient Attender: JONNATHAN TRACY MDAdmitter: JONNATHAN TRACY MD 02/27/2021 08:12:00 PM EDT - 03/08/2021 03:27:00 PM EDT Suicidal Ideation / Homicidal Ideation [facility] Suicidal Ideation / Homicidal Ideation Patient discharged. Outpatient Attender: JONNATHAN Marieei tter: JONNATHAN TRACY MDConsultant: JONNATHAN TRACY MD 02/27/2021 08:12:00 PM EDT Suicidal Ideation / H omicidal Ideation [facility] Suicidal Ideation / Homicidal Ideation Outpatient Attender: JONNATHAN Marieei tter: JONNATHAN TRACY MDConsultant: JONNATHAN TRACY MD 02/27/2021 08:12:00 PM EDT Suicidal Ideation / H omicidal Ideation [facility] Suicidal Ideation / Homicidal Ideation Outpatient Attender: Castro ColonAdmitter : JONNATHAN TRACY MDConsultant: JONNATHAN TRACY MD 02/27/2021 08:12:00 PM EDT Suicidal Ideation / H omicidal Ideation [facility] Suicidal Ideation / Homicidal Ideation Outpatient Attender: JONNATHAN Bonilla tter: JONNATHAN TRACY MDConsultant: JONNATHAN TRACY MD 02/27/2021 08:12:00 PM EDT Suicidal Ideation / H omicidal Ideation [facility] Suicidal Ideation / Homicidal Ideation Outpatient Attender: JONNATHAN Bonilla tter: JONNATHAN TRACY MDConsultant: JONNATHAN TRACY MD 02/27/2021 08:12:00 PM EDT Suicidal Ideation / H omicidal Ideation [facility] Suicidal Ideation / Homicidal Ideation Outpatient Attender: JONNATHAN Bonilla tter: JONNATHAN TRACY MDConsultant: JONNATHAN TRACY MD 02/27/2021 08:12:00 PM EDT Suicidal Ideation / H omicidal Ideation [facility] Suicidal Ideation / Homicidal Ideation Outpatient Attender: Castro ColonAdmitter : JONNATHAN TRACY MDConsultant: JONNATHAN TRACY MD 02/27/2021 08:12:00 PM EDT Suicidal Ideation / H omicidal Ideation [facility] Suicidal Ideation / Homicidal Ideation Outpatient Attender: Castro ColonAdmitter : JONNATHAN TRACY MDConsultant: JONNATHAN TRACY MD 02/27/2021 08:12:00 PM EDT Suicidal Ideation / H omicidal Ideation [facility] Suicidal Ideation / Homicidal Ideation Outpatient Attender: JONNATHAN Marieei tter: JONNATHAN TRACY MDConsultant: JONNATHAN TRACY MD 02/27/2021 08:12:00 PM EDT Suicidal Ideation / H omicidal Ideation [facility] Suicidal Ideation / Homicidal Ideation Outpatient Attender: Rambo Pedroza mitter: JONNATHAN TRACY MDConsultant: JONNATHAN TRACY MD 02/27/2021 08:12:00 PM EDT Suicidal Ideation / H omicidal Ideation [facility] Suicidal Ideation / Homicidal Ideation Outpatient Attender: ANSELMO APONTE NP [facility] 02/12/2021 10:30:00 AM EDT - 02/12/2021 10:30:00 AM EDT [facility] ([facility]) Attender: ANSELMO APONTE NP 02/12/2021 12:00:00 AM EDT [facility] ([facility]) Outpatient Attender: ANSELMO APONTE NP [facility] 02/07/2021 11:30:00 AM EDT - 02/07/2021 11:30:00 AM EDT [facility] ([facility]) Attender: ANSELMO APONTE NP 02/07/2021 12:00:00 AM EDT [facility] ([facility]) Brief Individual Psychotherapy - 30 min Attender: Gina yun [facility] 02/01/2021 02:00:00 AM EDT - 02/01/2021 02:00:00 AM EDT [facility] ([facility]) Attender: Gina Nash 02/01/2021 12:00:00 AM EDT [facility] ([facility]) Injectable Psychotropic Medication Administration (Inj ection Only) Attender: Thalia Carreno [facility] 01/23/2021 10:00:00 AM EDT - 01/23/2021 10:00:00 AM EDT [facility] ([facility]) Outpatient Attender: ANSELMO APONTE NP [facility] 01/23/2021 09:15:00 AM EDT - 01/23/2021 09:15:00 AM EDT [facility] ([facility]) Attender: ANSELMO APONTE NP 01/23/2021 12:00:00 AM EDT [facility] ([facility]) Attender: Thalia Carreno 01/23/2021 12:00:00 AM EDT [facility] ([facility]) Injectable Medication Administration w/ Monitoring & E ducation Attender: Pam Juarez [facility] 01/18/2021 11:00:00 AM EDT - 01/18/2021 11:00:00 AM EDT [facility] ([facility]) Attender: Pam Juarez 01/18/2021 12:00:00 AM EDT [facility] ([facility]) Outpatient Attender: ANSELMO APONTE NP [facility] 01/17/2021 09:00:00 AM EDT - 01/17/2021 09:00:00 AM EDT [facility] ([facility]) Attender: ANSELMO APONTE NP 01/17/2021 12:00:00 AM EDT [facility] ([facility]) Outpatient Attender: ANSELMO APONTE NP [facility] 01/01/2021 02:30:00 AM EST - 01/01/2021 02:30:00 AM EST [facility] ([facility]) Attender: ANSELMO APONTE NP 01/01/2021 12:00:00 AM EST [facility] ([facility]) Injectable Psychotropic Medication Administration (Inj ection Only) Attender: Jossie Marcelino [facility] 12/28/2020 10:30:00 AM EST - 12/28/2020 10:30:00 AM EST [facility] ([facility]) Attender: Jossie Marcelino 12/28/2020 12:00:00 AM EST [facility] ([facility]) Outpatient Attender: Victorino Escobar MD [facility] ra[facility] 12/20/2020 09:30:00 AM EST - 12/20/2020 09:30:00 AM EST [facility] ([facility]) Attender: Victorino Escobar MD 12/20/2020 12:00:00 AM EST [facility] ([facility]) Outpatient Attender: Victorino Escobar MD [facility] Mike garcía 12/06/2020 12:30:00 PM EST - 12/06/2020 12:30:00 PM EST [facility] ([facility]) Attender: Victorino Escobar MD 12/06/2020 12:00:00 AM EST [facility] ([facility]) Injectable Medication Administration w/ Monitoring & E ducation Attender: ORGANIZATION NPI ALIASES [facility] 11/15/2020 11:15: 00 AM EST - 11/15/2020 11:15:00 AM EST [facility] ([facility]) Outpatient Attender: Victorino Escobar MD [facility] Mike agrcía 11/15/2020 11:00:00 AM EST - 11/15/2020 11:00:00 AM EST [facility] ([facility]) Attender: ORGANIZATION NPI ALIASES * 11/15/2020 12:00:00 AM EST [facility] ([facility]) Attender: Victorino Escobar MD 11/15/2020 12:00:00 AM EST [facility] ([facility]) Injectable Psychotropic Medication Administration (Inj ection Only) Attender: Jossy Mejia [facility] 10/18/2020 10:30:00 AM EST - 10/18/2020 10:30:00 AM EST [facility] ([facility]) Attender: Jossy Mejia 10/18/2020 12:00:00 AM EST [facility] ([facility]) Injectable Psychotropic Medication Administration (Inj ection Only) Attender: Jossy Mejia [facility] 10/15/2020 11:00:00 AM EST - 10/15/2020 11:00:00 AM EST [facility] ([facility]) Attender: Jossy Mejia 10/15/2020 12:00:00 AM EST [facility] ([facility]) Injectable Psychotropic Medication Administration (Inj ection Only) Att[facility]: [facility] 10/04/2020 10:30:00 AM EST - 10/04/2020 10:30:00 AM EST [facility] ([facility]) Outpatient Attender: KALLI VALLEJO [facility] ail 10/04/2020 10:00:00 AM EST - 10/04/2020 10:00:00 AM EST [facility] ([facility]) Attender: Jossy Mejia 10/04/2020 12:00:00 AM EST [facility] ([facility]) Attender: KALLI VALLEJO 10/04/2020 12:00: 00 AM EST [facility] ([facility]) Outpatient Referrer: [facility] [place] 09/22/2020 0 2:27:00 PM EST schizophrenia, hallucinations, substance abuse [facility] schizophrenia, hallucinations, substance abuse Injectable Psychotropic Medication Administration (Inj ection Only) Attender: Jossy Mejia [facility] 09/12/2020 09:30:00 AM EST - 09/12/2020 09:30:00 AM EST [facility] ([facility]) Outpatient Attender: KALLI MOLINAURSZULA [facility] 09/12/2020 09:00:00 AM EST - 09/12/2020 09:00:00 AM EST [facility] ([facility]) Attender: KALLI VALLEJO 09/12/2020 12:00: 00 AM EST [facility] ([facility]) Attender: Jossy Mejia 09/12/2020 12:00:00 AM EST [facility] ([facility]) Outpatient Attender: KALLI MOLINAURSZULA [facility] ail 08/10/2020 02:00:00 AM EDT - 08/10/2020 02:00:00 AM EDT [facility] ([facility]) Attender: KALLI VALLEJO 08/10/2020 12:00: 00 AM EDT [facility] ([facility]) Functional Status Medications Medication Brand Name Start Date Product Form Dose Route Admi nistrative Instructions Pharmacy Instructions Status Indications Reaction Description Data Source(s) Prazosin 1 MG Oral Capsule prazosin 07/10/2021 12:00:00 AM EDT 1 mg by mouth completed <td ID="Medicat ionRxNorm_4">291741</td><td ID="MedicationMedication_4">prazosin</td><td ID="MedicationRoute_4">by mouth</td><td ID="MedicationRouteConcept_4">Z84432</td><td ID="MedicationStartDate_4">07/10/2021</td><td ID="MedicationStopDate_4">09/30/2021</td><td ID="MedicationDosageFrequency_4">at bedtime</td><td ID="MedicationDuration_4">30</td><td ID="MedicationFormulaStrength_4">1 mg</td><td ID="MedicationDosageForm_4">capsule</td><td ID="MedicationDosageFormCode_4"></td><td ID="MedicationDosageDescription_4"></td><td ID="MedicationMedicationId_4">[id number]</td><td ID="MedicationAccount_4">[id number]</td><td ID="MedicationNpid_4">[id number]</td><td ID="MedicationAuthorFirstName_4">Anselmo</td><td ID="MedicationAuthorLastName_4">Amilcar</td><td ID="MedicationTaxonomyCode_4">[id number]</td><td ID="MedicationTaxonomyDesc_4">Nurse Practitioner</td><td ID="MedicationPhoneNumber_4">[phone]</td> [facility] ([facility]) olanzapine 5 MG Oral Tablet [Zyprexa] Zyprexa 05/23/2021 12:00:00 AM EDT 5 mg by mouth completed <td ID="Medica tionRxNorm_2">363689</td><td ID="MedicationMedication_2">Zyprexa</td><td ID="MedicationRoute_2">by mouth</td><td ID="MedicationRouteConcept_2">X24321</td><td ID="MedicationStartDate_2">05/23/2021</td><td ID="MedicationStopDate_2">09/30/2021</td><td ID="MedicationDosageFrequency_2">at bedtime</td><td ID="MedicationDuration_2">30</td><td ID="MedicationFormulaStrength_2">5 mg</td><td ID="MedicationDosageForm_2">tablet</td><td ID="MedicationDosageFormCode_2"></td><td ID="MedicationDosageDescription_2"></td><td ID="MedicationMedicationId_2">[id number]</td><td ID="MedicationAccount_2">[id number]</td><td ID="MedicationNpid_2">[id number]</td><td ID="MedicationAuthorFirstName_2">Anselmo</td><td ID="MedicationAuthorLastName_2">Amilcar</td><td ID="MedicationTaxonomyCode_2">[id number]</td><td ID="MedicationTaxonomyDesc_2">Nurse Practitioner</td><td ID="MedicationPhoneNumber_2">[phone]</td> [facility] ([facility]) benztropine mesylate 1 MG Oral Tablet benztropine 05/23/2021 12:00 :00 AM EDT 1 mg by mouth completed <td ID="Me dicationRxNorm_3">090488</td><td ID="MedicationMedication_3">benztropine</td><td ID="MedicationRoute_3">by mouth</td><td ID="MedicationRouteConcept_3">R77959</td><td ID="MedicationStartDate_3">05/23/2021</td><td ID="MedicationStopDate_3">09/30/2021</td><td ID="MedicationDosageFrequency_3">at bedtime</td><td ID="MedicationDuration_3">30</td><td ID="MedicationFormulaStrength_3">1 mg</td><td ID="MedicationDosageForm_3">tablet</td><td ID="MedicationDosageFormCode_3"></td><td ID="MedicationDosageDescription_3"></td><td ID="MedicationMedicationId_3">[id number]</td><td ID="MedicationAccount_3">[id number]</td><td ID="MedicationNpid_3">[id number]</td><td ID="MedicationAuthorFirstName_3">Anselmo</td><td ID="MedicationAuthorLastName_3">Amilcar</td><td ID="MedicationTaxonomyCode_3">[id number]</td><td ID="MedicationTaxonomyDesc_3">Nurse Practitioner</td><td ID="MedicationPhoneNumber_3">[phone]</td> [facility] ([facility]) 1.5 ML paliperidone palmitate 156 MG/ML Prefilled Syri nge [Invega] Invega Sustenna 04/16/2021 12:00:00 AM EDT 234 mg/1.5 compl eted <td ID="MedicationRxNorm_1">039633</td><td ID="MedicationMedication_1">Invega Sustenna</td><td ID="MedicationRoute_1"></td><td ID="MedicationRouteConcept_1"></td><td ID="MedicationStartDate_1">04/16/2021</td><td ID="MedicationStopDate_1"></td><td ID="MedicationDosageFrequency_1"></td><td ID="MedicationDuration_1"></td><td ID="MedicationFormulaStrength_1">234 mg/1.5 mL</td><td ID="MedicationDosageForm_1">syringe</td><td ID="MedicationDosageFormCode_1"></td><td ID="MedicationDosageDescription_1"> </td><td ID="MedicationMedicationId_1">[id number]</td><td ID="MedicationAccount_1">[id number]</td><td ID="MedicationNpid_1">[id number]</td><td ID="MedicationAuthorFirstName_1">Anselmo</td><td ID="MedicationAuthorLastName_1">Amilcar</td><td ID="MedicationTaxonomyCode_1">[id number]</td><td ID="MedicationTaxonomyDesc_1">Nurse Practitioner</td><td ID="MedicationPhoneNumber_1">[phone]</td> [facility] ([facility]) 2.625 ML paliperidone palmitate 312 MG/ML Prefilled Sy ringe [Invega] Invega Trinza 04/03/2021 12:00:00 AM EDT 819 mg/2.625 compl eted <td ID="MedicationRxNorm_3">1355559</td><td ID="MedicationMedication_3">Invega Trinza</td><td ID="MedicationRoute_3">intramuscularly</td><td ID="MedicationRouteConcept_3"></td><td ID="MedicationStartDate_3">04/03/2021</td><td ID="MedicationStopDate_3">07/02/2021</td><td ID="MedicationDosageFrequency_3">every three months</td><td ID="MedicationDuration_3">90</td><td ID="MedicationFormulaStrength_3">819 mg/2.625 mL</td><td ID="MedicationDosageForm_3">syringe</td><td ID="MedicationDosageFormCode_3"></td><td ID="MedicationDosageDescription_3"></td><td ID="MedicationMedicationId_3">[id number]</td><td ID="MedicationAccount_3">[id number]</td><td ID="MedicationNpid_3">[id number]</td><td ID="MedicationAuthorFirstName_3">Anselmo</td><td ID="MedicationAuthorLastName_3">Amilcar</td><td ID="MedicationTaxonomyCode_3">[id number]</td><td ID="MedicationTaxonomyDesc_3"> Nurse Practitioner</td><td ID="MedicationPhoneNumber_3">[phone]</td> [facility] ([facility]) 2.625 ML paliperidone palmitate 312 MG/ML Prefilled Sy ringe [Invega] Invega Trinza 04/03/2021 12:00:00 AM EDT 819 mg/2.625 compl eted <td ID="MedicationRxNorm_4">[id number]</td><td ID="MedicationMedication_4">Invega Trinza</td><td ID="MedicationRoute_4">intramuscularly</td><td ID="MedicationRouteConcept_4"></td><td ID="MedicationStartDate_4">04/03/2021</td><td ID="MedicationStopDate_4">07/02/2021</td><td ID="MedicationDosageFrequency_4">every three months</td><td ID="MedicationDuration_4">90</td><td ID="MedicationFormulaStrength_4">819 mg/2.625 mL</td><td ID="MedicationDosageForm_4">syringe</td><td ID="MedicationDosageFormCode_4"></td><td ID="MedicationDosageDescription_4"></td><td ID="MedicationMedicationId_4">[id number]</td><td ID="MedicationAccount_4">[id number]</td><td ID="MedicationNpid_4">[id number]</td><td ID="MedicationAuthorFirstName_4">Anselmo</td><td ID="MedicationAuthorLastName_4">Amilcar</td><td ID="MedicationTaxonomyCode_4">[id number]</td><td ID="MedicationTaxonomyDesc_4"> Nurse Practitioner</td><td ID="MedicationPhoneNumber_4">[phone]</td> [facility] ([facility]) haloperidol decanoate haloperidol decanoate 04/03/2021 12:00:00 AM EDT 100 mg/mL completed <td ID="Me dicationRxNorm_2">[id number]</td><td ID="MedicationMedication_2">haloperidol decanoate</td><td ID="MedicationRoute_2">intramuscularly</td><td ID="MedicationRouteConcept_2"> </td><td ID="MedicationStartDate_2">04/03/2021</td><td ID="MedicationStopDate_2">04/03/2021</td><td ID="MedicationDosageFrequency_2">every four weeks</td><td ID="MedicationDuration_2">28</td><td ID="MedicationFormulaStrength_2">100 mg/mL</td><td ID="MedicationDosageForm_2">solution</td><td ID="MedicationDosageFormCode_2"></td><td ID="MedicationDosageDescription_2"></td><td ID="MedicationMedicationId_2">[id number]</td><td ID="MedicationAccount_2">[id number]</td><td ID="MedicationNpid_2">[id number]</td><td ID="MedicationAuthorFirstName_2">Anselmo</td><td ID="MedicationAuthorLastName_2">Amilcar</td><td ID="MedicationTaxonomyCode_2">[id number]</td><td ID="MedicationTaxonomyDesc_2"> Nurse Practitioner</td><td ID="MedicationPhoneNumber_2">[phone]</td> [facility] ([facility]) benztropine mesylate 1 MG Oral Tablet benztropine 04/03/2021 12:00 :00 AM EDT 1 mg by mouth completed <td ID="Me dicationRxNorm_2">981342</td><td ID="MedicationMedication_2">benztropine</td><td ID="MedicationRoute_2">by mouth</td><td ID="MedicationRouteConcept_2">B61406</td><td ID="MedicationStartDate_2">04/03/2021</td><td ID="MedicationStopDate_2">05/03/2021</td><td ID="MedicationDosageFrequency_2">at bedtime</td><td ID="MedicationDuration_2">30</td><td ID="MedicationFormulaStrength_2">1 mg</td><td ID="MedicationDosageForm_2">tablet</td><td ID="MedicationDosageFormCode_2"></td><td ID="MedicationDosageDescription_2"></td><td ID="MedicationMedicationId_2">[id number]</td><td ID="MedicationAccount_2">[id number]</td><td ID="MedicationNpid_2">[id number]</td><td ID="MedicationAuthorFirstName_2">Anselmo</td><td ID="MedicationAuthorLastName_2">Amilcar</td><td ID="MedicationTaxonomyCode_2">[id number]</td><td ID="MedicationTaxonomyDesc_2">Nurse Practitioner</td><td ID="MedicationPhoneNumber_2">[phone]</td> [facility] olanzapine 5 MG Oral Tablet [Zyprexa] Zyprexa 04/03/2021 12:00:00 AM EDT 5 mg by mouth completed <td ID="Medica tionRxNorm_1">022289</td><td ID="MedicationMedication_1">Zyprexa</td><td ID="MedicationRoute_1">by mouth</td><td ID="MedicationRouteConcept_1">M56331</td><td ID="MedicationStartDate_1">04/03/2021</td><td ID="MedicationStopDate_1">05/03/2021</td><td ID="MedicationDosageFrequency_1">at bedtime</td><td ID="MedicationDuration_1">30</td><td ID="MedicationFormulaStrength_1">5 mg</td><td ID="MedicationDosageForm_1">tablet</td><td ID="MedicationDosageFormCode_1"></td><td ID="MedicationDosageDescription_1"></td><td ID="MedicationMedicationId_1">[id number]</td><td ID="MedicationAccount_1">[id number]</td><td ID="MedicationNpid_1">[id number]</td><td ID="MedicationAuthorFirstName_1">Anselmo</td><td ID="MedicationAuthorLastName_1">Amilcar</td><td ID="MedicationTaxonomyCode_1">[id number]</td><td ID="MedicationTaxonomyDesc_1">Nurse Practitioner</td><td ID="MedicationPhoneNumber_1">[phone]</td> [facility] ([facility]) 2.625 ML paliperidone palmitate 312 MG/ML Prefilled Sy ringe [Invega] Ml Quintanillaza 04/03/2021 12:00:00 AM EDT 819 mg/2.625 compl eted <td ID="MedicationRxNorm_5">5322419</td><td ID="MedicationMedication_5">Invega Trinza</td><td ID="MedicationRoute_5">intramuscularly</td><td ID="MedicationRouteConcept_5"></td><td ID="MedicationStartDate_5">04/03/2021</td><td ID="MedicationStopDate_5">07/02/2021</td><td ID="MedicationDosageFrequency_5">every three months</td><td ID="MedicationDuration_5">90</td><td ID="MedicationFormulaStrength_5">819 mg/2.625 mL</td><td ID="MedicationDosageForm_5">syringe</td><td ID="MedicationDosageFormCode_5"></td><td ID="MedicationDosageDescription_5"></td><td ID="MedicationMedicationId_5">[id number]</td><td ID="MedicationAccount_5">[id number]</td><td ID="MedicationNpid_5">[id number]</td><td ID="MedicationAuthorFirstName_5">Anselmo</td><td ID="MedicationAuthorLastName_5">Amilcar</td><td ID="MedicationTaxonomyCode_5">[id number]</td><td ID="MedicationTaxonomyDesc_5"> Nurse Practitioner</td><td ID="MedicationPhoneNumber_5">[phone]</td> [facility] ([facility]) benztropine mesylate 1 MG Oral Tablet benztropine 04/03/2021 12:00 :00 AM EDT 1 mg by mouth completed <td ID="Me dicationRxNorm_4">610225</td><td ID="MedicationMedication_4">benztropine</td><td ID="MedicationRoute_4">by mouth</td><td ID="MedicationRouteConcept_4">O73646</td><td ID="MedicationStartDate_4">04/03/2021</td><td ID="MedicationStopDate_4">05/03/2021</td><td ID="MedicationDosageFrequency_4">at bedtime</td><td ID="MedicationDuration_4">30</td><td ID="MedicationFormulaStrength_4">1 mg</td><td ID="MedicationDosageForm_4">tablet</td><td ID="MedicationDosageFormCode_4"></td><td ID="MedicationDosageDescription_4"></td><td ID="MedicationMedicationId_4">[id number]</td><td ID="MedicationAccount_4">[id number]</td><td ID="MedicationNpid_4">[id number]</td><td ID="MedicationAuthorFirstName_4">Anselmo</td><td ID="MedicationAuthorLastName_4">Amilcar</td><td ID="MedicationTaxonomyCode_4">[id number]</td><td ID="MedicationTaxonomyDesc_4">Nurse Practitioner</td><td ID="MedicationPhoneNumber_4">[phone]</td> [facility] ([facility]) olanzapine 5 MG Oral Tablet [Zyprexa] Zyprexa 04/03/2021 12:00:00 AM EDT 5 mg by mouth completed <td ID="Medica tionRxNorm_3">135741</td><td ID="MedicationMedication_3">Zyprexa</td><td ID="MedicationRoute_3">by mouth</td><td ID="MedicationRouteConcept_3">W01570</td><td ID="MedicationStartDate_3">04/03/2021</td><td ID="MedicationStopDate_3">05/03/2021</td><td ID="MedicationDosageFrequency_3">at bedtime</td><td ID="MedicationDuration_3">30</td><td ID="MedicationFormulaStrength_3">5 mg</td><td ID="MedicationDosageForm_3">tablet</td><td ID="MedicationDosageFormCode_3"></td><td ID="MedicationDosageDescription_3"></td><td ID="MedicationMedicationId_3">[id number]</td><td ID="MedicationAccount_3">[id number]</td><td ID="MedicationNpid_3">[id number]</td><td ID="MedicationAuthorFirstName_3">Anselmo</td><td ID="MedicationAuthorLastName_3">Amilcar</td><td ID="MedicationTaxonomyCode_3">[id number]</td><td ID="MedicationTaxonomyDesc_3">Nurse Practitioner</td><td ID="MedicationPhoneNumber_3">[phone]</td> [facility] ([facility]) 2.625 ML paliperidone palmitate 312 MG/ML Prefilled Sy ringe [Invega] Invega Socorroza 04/03/2021 12:00:00 AM EDT 819 mg/2.625 compl eted <td ID="MedicationRxNorm_2">[id number]</td><td ID="MedicationMedication_2">Invega Trinza</td><td ID="MedicationRoute_2">intramuscularly</td><td ID="MedicationRouteConcept_2"></td><td ID="MedicationStartDate_2">04/03/2021</td><td ID="MedicationStopDate_2">07/02/2021</td><td ID="MedicationDosageFrequency_2">every three months</td><td ID="MedicationDuration_2">90</td><td ID="MedicationFormulaStrength_2">819 mg/2.625 mL</td><td ID="MedicationDosageForm_2">syringe</td><td ID="MedicationDosageFormCode_2"></td><td ID="MedicationDosageDescription_2"></td><td ID="MedicationMedicationId_2">[id number]</td><td ID="MedicationAccount_2">[id number]</td><td ID="MedicationNpid_2">[id number]</td><td ID="MedicationAuthorFirstName_2">Anselmo</td><td ID="MedicationAuthorLastName_2">Amilcar</td><td ID="MedicationTaxonomyCode_2">[id number]</td><td ID="MedicationTaxonomyDesc_2"> Nurse Practitioner</td><td ID="MedicationPhoneNumber_2">[phone]</td> [facility] ([facility]) haloperidol decanoate haloperidol decanoate 10/04/2020 12:00:00 AM EST 100 mg/mL completed <td ID="Me dicationRxNorm_1">[id number]</td><td ID="MedicationMedication_1">haloperidol decanoate</td><td ID="MedicationRoute_1">intramuscularly</td><td ID="MedicationRouteConcept_1"> </td><td ID="MedicationStartDate_1">10/04/2020</td><td ID="MedicationStopDate_1">04/03/2021</td><td ID="MedicationDosageFrequency_1">as directed</td><td ID="MedicationDuration_1">21</td><td ID="MedicationFormulaStrength_1">100 mg/mL</td><td ID="MedicationDosageForm_1">solution</td><td ID="MedicationDosageFormCode_1"></td><td ID="MedicationDosageDescription_1"></td><td ID="MedicationMedicationId_1">[id number]</td><td ID="MedicationAccount_1">[id number]</td><td ID="MedicationNpid_1">[id number]</td><td ID="MedicationAuthorFirstName_1">Victorino</td><td ID="MedicationAuthorLastName_1">Escobar</td><td ID="MedicationTaxonomyCode_1">[id number]</td><td ID="MedicationTaxonomyDesc_1"> Psychiatry</td><td ID="MedicationPhoneNumber_1">[phone]</td> [facility] ([facility]) 100 mg/mL 10/02/2020 12:00:00 AM [...] 50 mg by mouth completed <td ID="Medic ationRxNorm_5">320570</td><td ID="MedicationMedication_5">trazodone</td><td ID="MedicationRoute_5">by mouth</td><td ID="MedicationRouteConcept_5">P21151</td><td ID="MedicationStartDate_5">09/12/2020</td><td ID="MedicationStopDate_5">10/12/2020</td><td ID="MedicationDosageFrequency_5">every night</td><td ID="MedicationDuration_5">30</td><td ID="MedicationFormulaStrength_5">50 mg</td><td ID="MedicationDosageForm_5">tablet</td><td ID="MedicationDosageFormCode_5"></td><td ID="MedicationDosageDescription_5"></td><td ID="MedicationMedicationId_5">[id number]</td><td ID="MedicationAccount_5">[id number]</td><td ID="MedicationNpid_5">[id number]</td><td ID="MedicationAuthorFirstName_5">Kalli</td><td ID="MedicationAuthorLastName_5">Egorho</td><td ID="MedicationTaxonomyCode_5">[id number]</td><td ID="MedicationTaxonomyDesc_5">Nurse Practitioner</td><td ID="MedicationPhoneNumber_5">[phone]</td> [facility] ([facility]) Trazodone Hydrochloride 50 MG Oral Tablet trazodone 2019 12:00:00 AM EST 50 mg by mouth completed <td ID="Medic ationRxNorm_1">871305</td><td ID="MedicationMedication_1">trazodone</td><td ID="MedicationRoute_1">by mouth</td><td ID="MedicationRouteConcept_1">Q66497</td><td ID="MedicationStartDate_1">09/12/2020</td><td ID="MedicationStopDate_1">10/12/2020</td><td ID="MedicationDosageFrequency_1">every night</td><td ID="MedicationDuration_1">30</td><td ID="MedicationFormulaStrength_1">50 mg</td><td ID="MedicationDosageForm_1">tablet</td><td ID="MedicationDosageFormCode_1"></td><td ID="MedicationDosageDescription_1"></td><td ID="MedicationMedicationId_1">[id number]</td><td ID="MedicationAccount_1">[id number]</td><td ID="MedicationNpid_1">[id number]</td><td ID="MedicationAuthorFirstName_1">Kalli</td><td ID="MedicationAuthorLastName_1">Egorho</td><td ID="MedicationTaxonomyCode_1">[id number]</td><td ID="MedicationTaxonomyDesc_1">Nurse Practitioner</td><td ID="MedicationPhoneNumber_1">[phone]</td> [facility] ([facility]) Haldol Decanoate Haldol Decanoate 09/12/2020 12:00:00 AM EST 100 mg/mL completed <td ID="MedicationRx Norm_4">[id number]</td><td ID="MedicationMedication_4">Haldol Decanoate</td><td ID="MedicationRoute_4">intramuscularly</td><td ID="MedicationRouteConcept_4"></td><td ID="MedicationStartDate_4">09/12/2020</td><td ID="MedicationStopDate_4">09/15/2020</td><td ID="MedicationDosageFrequency_4">as directed</td><td ID="MedicationDuration_4">1</td><td ID="MedicationFormulaStrength_4">100 mg/mL</td><td ID="MedicationDosageForm_4">solution</td><td ID="MedicationDosageFormCode_4"></td><td ID="MedicationDosageDescription_4"></td><td ID="MedicationMedicationId_4">[id number]</td><td ID="MedicationAccount_4">[id number]</td><td ID="MedicationNpid_4">[id number]</td><td ID="MedicationAuthorFirstName_4">Kalli</td><td ID="MedicationAuthorLastName_4">Egorho</td><td ID="MedicationTaxonomyCode_4">[id number]</td><td ID="MedicationTaxonomyDesc_4">Nurse Practitioner</td><td ID="MedicationPhoneNumber_4">[phone]</td> [facility] ([facility]) quetiapine 300 MG Oral Tablet quetiapine 01/06/2020 12:00:00 AM EST 300 mg completed <td ID="Medicat ionRxNorm_4">514414</td><td ID="MedicationMedication_4">quetiapine</td><td ID="MedicationRoute_4"></td><td ID="MedicationRouteConcept_4"></td><td ID="MedicationStartDate_4">01/06/2020</td><td ID="MedicationStopDate_4">01/05/2021</td><td ID="MedicationDosageFrequency_4">at bedtime</td><td ID="MedicationDuration_4">30</td><td ID="MedicationFormulaStrength_4">300 mg</td><td ID="MedicationDosageForm_4">tablet</td><td ID="MedicationDosageFormCode_4"></td><td ID="MedicationDosageDescription_4"></td><td ID="MedicationMedicationId_4">[id number]</td><td ID="MedicationAccount_4">[id number]</td><td ID="MedicationNpid_4">[id number]</td><td ID="MedicationAuthorFirstName_4">Dane</td><td ID="MedicationAuthorLastName_4">Loida</td><td ID="MedicationTaxonomyCode_4">[id number]</td><td ID="MedicationTaxonomyDesc_4">Psychiatric/Mental Health</td><td ID="MedicationPhoneNumber_4">[phone]</td> [facility] ([facility]) quetiapine 300 MG Oral Tablet quetiapine 01/06/2020 12:00:00 AM EST 300 mg completed <td ID="Medicat ionRxNorm_1">895352</td><td ID="MedicationMedication_1">quetiapine</td><td ID="MedicationRoute_1"></td><td ID="MedicationRouteConcept_1"></td><td ID="MedicationStartDate_1">01/06/2020</td><td ID="MedicationStopDate_1">01/05/2021</td><td ID="MedicationDosageFrequency_1">at bedtime</td><td ID="MedicationDuration_1">30</td><td ID="MedicationFormulaStrength_1">300 mg</td><td ID="MedicationDosageForm_1">tablet</td><td ID="MedicationDosageFormCode_1"></td><td ID="MedicationDosageDescription_1"></td><td ID="MedicationMedicationId_1">[id number]</td><td ID="MedicationAccount_1">[id number]</td><td ID="MedicationNpid_1">[id number]</td><td ID="MedicationAuthorFirstName_1">Dane</td><td ID="MedicationAuthorLastName_1">Loida</td><td ID="MedicationTaxonomyCode_1">[id number]</td><td ID="MedicationTaxonomyDesc_1">Psychiatric/Mental Health</td><td ID="MedicationPhoneNumber_1">[phone]</td> [facility] ([facility]) quetiapine 300 MG Oral Tablet quetiapine 01/06/2020 12:00:00 AM EST 300 mg completed <td ID="Medicat ionRxNorm_5">762049</td><td ID="MedicationMedication_5">quetiapine</td><td ID="MedicationRoute_5"></td><td ID="MedicationRouteConcept_5"></td><td ID="MedicationStartDate_5">01/06/2020</td><td ID="MedicationStopDate_5">01/05/2021</td><td ID="MedicationDosageFrequency_5">at bedtime</td><td ID="MedicationDuration_5">30</td><td ID="MedicationFormulaStrength_5">300 mg</td><td ID="MedicationDosageForm_5">tablet</td><td ID="MedicationDosageFormCode_5"></td><td ID="MedicationDosageDescription_5"></td><td ID="MedicationMedicationId_5">[id number]</td><td ID="MedicationAccount_5">[id number]</td><td ID="MedicationNpid_5">[id number]</td><td ID="MedicationAuthorFirstName_5">Dane</td><td ID="MedicationAuthorLastName_5">Loida</td><td ID="MedicationTaxonomyCode_5">[id number]</td><td ID="MedicationTaxonomyDesc_5">Psychiatric/Mental Health</td><td ID="MedicationPhoneNumber_5">[phone]</td> [facility] ([facility]) Aristada Aristada 12/20/2019 12:00:00 AM EST mg/3.9 completed <td ID="MedicationRxNorm_3">[id number]</td><td ID="MedicationMedication_3">Aristada</td><td ID="MedicationRoute_3">intramuscularly</td><td ID="MedicationRouteConcept_3"></td><td ID="MedicationStartDate_3">12/20/2019</td><td ID="MedicationStopDate_3">09/12/2020</td><td ID="MedicationDosageFrequency_3"></td><td ID="MedicationDuration_3"></td><td ID="MedicationFormulaStrength_3">1,064 mg/3.9 mL</td><td ID="MedicationDosageForm_3">suspension,extended rel syring</td><td ID="MedicationDosageFormCode_3"></td><td ID="MedicationDosageDescription_3">as directed</td><td ID="MedicationMedicationId_3">[id number]</td><td ID="MedicationAccount_3">[id number]</td><td ID="MedicationNpid_3">[id number]</td><td ID="MedicationAuthorFirstName_3">Dane</td><td ID="MedicationAuthorLastName_3">Loida</td><td ID="MedicationTaxonomyCode_3">[id number]</td><td ID="MedicationTaxonomyDesc_3"> Psychiatric/Mental Health</td><td ID="MedicationPhoneNumber_3">[phone]</td> [facility] ([facility]) Trazodone Hydrochloride 50 MG Oral Tablet trazodone 2018 12:00:00 AM EDT 50 mg by mouth completed <td ID="Medic ationRxNorm_2">504168</td><td ID="MedicationMedication_2">trazodone</td><td ID="MedicationRoute_2">by mouth</td><td ID="MedicationRouteConcept_2">T54832</td><td ID="MedicationStartDate_2">06/10/2019</td><td ID="MedicationStopDate_2">09/12/2020</td><td ID="MedicationDosageFrequency_2">at bedtime</td><td ID="MedicationDuration_2"></td><td ID="MedicationFormulaStrength_2">50 mg</td><td ID="MedicationDosageForm_2">tablet</td><td ID="MedicationDosageFormCode_2"></td><td ID="MedicationDosageDescription_2"></td><td ID="MedicationMedicationId_2">[id number]</td><td ID="MedicationAccount_2">[id number]</td><td ID="MedicationNpid_2">[id number]</td><td ID="MedicationAuthorFirstName_2">Dane</td><td ID="MedicationAuthorLastName_2">Loida</td><td ID="MedicationTaxonomyCode_2">[id number]</td><td ID="MedicationTaxonomyDesc_2">Psychiatric/Mental Health</td><td ID="MedicationPhoneNumber_2">[phone]</td> [facility] ([facility]) Amantadine Hydrochloride 100 MG Oral Capsule amantadine HCl 07/30/2017 12:00:00 AM EDT 100 mg by mouth completed <td ID="MedicationRxNorm_1">579184</td><td ID="MedicationMedication_1">amantadine HCl</td><td ID="MedicationRoute_1">by mouth</td><td ID="MedicationRouteConcept_1">S87292</td><td ID="MedicationStartDate_1">07/30/2017</td><td ID="MedicationStopDate_1">09/12/2020</td><td ID="MedicationDosageFrequency_1">every morning</td><td ID="MedicationDuration_1"></td><td ID="MedicationFormulaStrength_1">100 mg</td><td ID="MedicationDosageForm_1">capsule</td><td ID="MedicationDosageFormCode_1"></td><td ID="MedicationDosageDescription_1"></td><td ID="MedicationMedicationId_1">[id number]</td><td ID="MedicationAccount_1">[id number]</td><td ID="MedicationNpid_1">[id number]</td><td ID="MedicationAuthorFirstName_1">Dane</td><td ID="MedicationAuthorLastName_1">[place]</td><td ID="MedicationTaxonomyCode_1">[id number]</td><td ID="MedicationTaxonomyDesc_1">Psychiatric/Mental Health</td><td ID="MedicationPhoneNumber_1">[phone]</td> [facility] ([facility]) Insurance Providers Payer name Policy type / Coverage type Policy ID Covered constitution party ID Covered constitution party's relationship to shafer Policy Shafer Plan Information Medicaid S [id number] S [id number] Managed Care - Community Plan [facility] P [id number] S [id number] Medicaid S [id number] S [id number] [facility] I [id number] Self [id number] [facility] I [id number] Self [id number] [facility] I [id number] Self [id number] Managed Care - [facility] Community Plan P [id number] S [id number] Medicaid S [id number] S [id number] Managed Care - [facility] Community Plan P [id number] S [id number] [employer] COMM[employer] MCDO [id number] SP [id number] [facility] MAN CRE [id number] SP [id number] [facility] [id number] SP [id number] SELF PAY [facility] OFFICE OF MENTAL HEALTH UNAVAILABLE S UNAVAILABLE MEDICAID [id number] S [id number] [facility] OFFICE OF MENTAL HEALTH [id number] S [id number] [employer] COMM[employer]ITY [employer] MCDHMO [id number] SP [id number] [facility] OFFICE OF MENTAL HEALTH [id number] S [id number] [facility] [id number] SP [id number] SELF PAY ONLY [id number] SP [id number] [facility] [id number] SP [id number] SELF PAY SP [facility]) O [id number] S [id number] [facility] [id number] SP [id number] Self Pay P UNAVAILABLE S UNAVAILA BLE [facility]) O [id number] S [id number] [facility] [id number] SP [id number] MEDICAID [id number] SP [id number] [facility] COMM[employer]ITY [facility] MCDO [id number] SP [id number] MEDICAID [id number] SP [id number] Problems, Conditions, and Diagnoses Code Display Name Description Problem Type Effective Dates Data Source(s) F11.10 Opioid abuse, uncomplicated F11.10 - Opioid abus e, uncomplicated Diagnosis 02/27/2021 08:12:00 PM EDT [facility] 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, uncomplicated F16.10 - Hallucinogen abuse, uncomplicated Diagnosis 02/27/2021 08:12:00 PM EDT [facility] F25.9 Schizoaffective disorder, unspecified F2 5.9 - Schizoaffective disorder, unspecified Diagnosis 02/27/2021 08:12:00 PM EDT [facility] Z13.9 Encounter for screening, unspecified Z13 .9 - Encounter for screening, unspecified Diagnosis 02/27/2021 08:12:00 PM EDT [facility] schizophrenia, hallucinations, substance abuse schizophrenia, hallucinations, substance abuse Diagnosis 09/22/2020 02:27:00 PM [facility] F15.20 Other stimulant dependence, uncomplicate d Stimulant Use Disorder, Moderate: Amphetamine-type substance Condition 09/02/2021 12:00:00 AM EDT [facility] ([facility]) F10.20 Alcohol dependence, uncomplicated Alcohol Use Disorder , Severe Condition 09/02/2021 12:00:00 AM EDT [facility] ([facility]) F17.200 Nicotine dependence, unspecified, uncomp licated Tobacco Use Disorder, Moderate Condition 09/02/2021 12:00:00 AM EDT [facility] ([facility]) F12.20 Cannabis dependence, uncomplicated Cannabis Use Disorder, Moderate Condition 09/02/2021 12:00:00 AM EDT [facility] ([facility]) F20.9 Schizophrenia, unspecified Schizophrenia Condition 09/02/2021 12:00:00 AM EDT [facility] ([facility]) Surgeries/Procedures Procedure Description Date Indications Data Source(s) THERAPEUTIC PROPHYLACTIC/DX INJECTION SUBQ/IM 09/02/2021 12:00:00 AM EDT - 09/02/2021 12:00:00 AM EDT [facility] ([facility]) THERAPEUTIC PROPHYLACTIC/DX INJECTION SUBQ/IM 09/02/20 12:00:00 AM EDT [facility] ([facility]) Comprehensive medication services, per 15 minutes 07/29/2021 12:00:00 AM EDT - 07/29/2021 12:00:00 AM EDT [facility] ([facility]) Comprehensive medication services, per 15 minutes 07/29/2021 12:00:00 AM EDT [facility] ([facility]) Comprehensive medication services, per 15 minutes 06/24/2021 12:00:00 AM EDT - 06/24/2021 12:00:00 AM EDT [facility] ([facility]) Comprehensive medication services, per 15 minutes 06/24/2021 12:00:00 AM EDT [facility] ([facility]) THERAPEUTIC PROPHYLACTIC/DX INJECTION SUBQ/IM 05/27/2021 12:00:00 AM EDT - 05/27/2021 12:00:00 AM EDT [facility] ([facility]) THERAPEUTIC PROPHYLACTIC/DX INJECTION SUBQ/IM 05/27/20 12:00:00 AM EDT [facility] ([facility]) Brief Individual Psychotherapy - 30 min 05/13/2021 12:00:00 AM EDT - 05/13/2021 12:00:00 AM EDT [facility] ([facility]) Brief Individual Psychotherapy - 30 min 05/13/2021 12: 00:00 AM EDT [facility] ([facility]) Comprehensive medication services, per 15 minutes 04/04/2021 12:00:00 AM EDT - 04/04/2021 12:00:00 AM EDT [facility] ([facility]) Comprehensive medication services, per 15 minutes 04/03/2021 12:00:00 AM EDT [facility] ([facility]) OFFICE OUTPATIENT VISIT 15 MINUTES 04/03 12:00:00 AM EDT - 04/03/2021 12:00:00 AM EDT [facility] ([facility]) Psychotherapy ADD ON - 30 Minutes 04/03/2021 12:00:00 AM EDT [facility] ([facility]) OFFICE OUTPATIENT VISIT 15 MINUTES 04/03/2021 12:00:00 AM EDT [facility] ([facility]) OFFICE OUTPATIENT VISIT 15 MINUTES 03/27 12:00:00 AM EDT - 03/27/2021 12:00:00 AM EDT [facility] ([facility]) OFFICE OUTPATIENT VISIT 15 MINUTES 03/27/2021 12:00:00 AM EDT [facility] ([facility]) OFFICE OUTPATIENT VISIT 15 MINUTES 03/19 12:00:00 AM EDT - 03/19/2021 12:00:00 AM EDT [facility] ([facility]) OFFICE OUTPATIENT VISIT 15 MINUTES 03/19/2021 12:00:00 AM EDT [facility] ([facility]) OFFICE OUTPATIENT VISIT 15 MINUTES 02/12 12:00:00 AM EDT - 02/12/2021 12:00:00 AM EDT [facility] ([facility]) OFFICE OUTPATIENT VISIT 15 MINUTES 02/12/2021 12:00:00 AM EDT [facility] ([facility]) OFFICE OUTPATIENT VISIT 15 MINUTES 02/07 12:00:00 AM EDT - 02/07/2021 12:00:00 AM EDT [facility] ([facility]) OFFICE OUTPATIENT VISIT 15 MINUTES 02/07/2021 12:00:00 AM EDT [facility] ([facility]) Brief Individual Psychotherapy - 30 min 02/01/2021 12:00:00 AM EDT - 02/01/2021 12:00:00 AM EDT [facility] ([facility]) Brief Individual Psychotherapy - 30 min 02/01/2021 12: 00:00 AM EDT [facility] ([facility]) OFFICE OUTPATIENT VISIT 15 MINUTES 01/23 12:00:00 AM EDT - 01/23/2021 12:00:00 AM EDT [facility] ([facility]) OFFICE OUTPATIENT VISIT 15 MINUTES 01/23/2021 12:00:00 AM EDT [facility] ([facility]) THERAPEUTIC PROPHYLACTIC/DX INJECTION SUBQ/IM 01/23/2021 12:00:00 AM EDT - 01/23/2021 12:00:00 AM EDT [facility] ([facility]) THERAPEUTIC PROPHYLACTIC/DX INJECTION SUBQ/IM 01/24/20 12:00:00 AM EDT [facility] ([facility]) Comprehensive medication services, per 15 minutes 01/18/2021 12:00:00 AM EDT - 01/18/2021 12:00:00 AM EDT [facility] ([facility]) Comprehensive medication services, per 15 minutes 01/18/2021 12:00:00 AM EDT [facility] ([facility]) OFFICE OUTPATIENT VISIT 15 MINUTES 01/17 12:00:00 AM EDT - 01/17/2021 12:00:00 AM EDT [facility] ([facility]) OFFICE OUTPATIENT VISIT 15 MINUTES 01/17/2021 12:00:00 AM EDT [facility] ([facility]) MHC Telemed E/M Lvl 3--Est pt 01/01/2021 12:00:00 AM EST - 01/01/2021 12:00:00 AM EST [facility] ([facility]) MHC Telemed E/M Lvl 3--Est pt 01/01/2021 12:00:[address] [facility] ([facility]) THERAPEUTIC PROPHYLACTIC/DX INJECTION SUBQ/IM 12/28/2020 12:00:00 AM EST - 12/28/2020 12:00:00 AM EST [facility] ([facility]) THERAPEUTIC PROPHYLACTIC/DX INJECTION SUBQ/IM 12/28/19 12:00:00 AM EST [facility] ([facility]) MHC Telemed E/M Lvl 3--Est pt 12/20/2020 12:00:00 AM EST - 12/20/2020 12:00:00 AM EST [facility] ([facility]) MHC Telemed E/M Lvl 3--Est pt 12/20/2020 12:00:[address] [facility] ([facility]) MHC Telemed E/M Lvl 3--Est pt 12/06/2020 12:00:00 AM EST - 12/06/2020 12:00:00 AM EST [facility] ([facility]) MHC Telemed E/M Lvl 3--Est pt 12/06/2020 12:00:[address] [facility] ([facility]) Comprehensive medication services, per 15 minutes 11/15/2020 12:00:00 AM EST - 11/15/2020 12:00:00 AM EST [facility] ([facility]) Comprehensive medication services, per 15 minutes 11/15/2020 12:00:00 AM EST [facility] ([facility]) OFFICE OUTPATIENT VISIT 15 MINUTES 11/15 12:00:00 AM EST - 11/15/2020 12:00:00 AM EST [facility] ([facility]) OFFICE OUTPATIENT VISIT 15 MINUTES 11/15/2020 12:00:00 AM EST [facility] ([facility]) THERAPEUTIC PROPHYLACTIC/DX INJECTION SUBQ/IM 10/18/2020 12:00:00 AM EST - 10/18/2020 12:00:00 AM EST [facility] ([facility]) THERAPEUTIC PROPHYLACTIC/DX INJECTION SUBQ/IM 10/18/20 20 12:00:00 AM EST [facility] ([facility]) THERAPEUTIC PROPHYLACTIC/DX INJECTION SUBQ/IM 10/15/2020 12:00:00 AM EST - 10/15/2020 12:00:00 AM EST [facility] ([facility]) THERAPEUTIC PROPHYLACTIC/DX INJECTION SUBQ/IM 10/15/20 20 12:00:00 AM EST [facility] ([facility]) THERAPEUTIC PROPHYLACTIC/DX INJECTION SUBQ/IM 10/04/2020 12:00:00 AM EST - 10/04/2020 12:00:00 AM EST [facility] ([facility]) THERAPEUTIC PROPHYLACTIC/DX INJECTION SUBQ/IM 10/04/20 20 12:00:00 AM EST [facility] ([facility]) OFFICE OUTPATIENT VISIT 15 MINUTES 10/04 12:00:00 AM EST - 10/04/2020 12:00:00 AM EST [facility] ([facility]) OFFICE OUTPATIENT VISIT 15 MINUTES 10/04/2020 12:00:00 AM EST [facility] ([facility]) OFFICE OUTPATIENT VISIT 15 MINUTES 09/12 12:00:00 AM EST - 09/12/2020 12:00:00 AM EST [facility] ([facility]) OFFICE OUTPATIENT VISIT 15 MINUTES 09/12/2020 12:00:00 AM EST [facility] ([facility]) THERAPEUTIC PROPHYLACTIC/DX INJECTION SUBQ/IM 09/12/2020 12:00:00 AM EST - 09/12/2020 12:00:00 AM EST [facility] ([facility]) THERAPEUTIC PROPHYLACTIC/DX INJECTION SUBQ/IM 09/12/20 12:00:00 AM EST [facility] ([facility]) OFFICE OUTPATIENT VISIT 15 MINUTES 08/10 12:00:00 AM EDT - 08/10/2020 12:00:00 AM EDT [facility] ([facility]) OFFICE OUTPATIENT VISIT 15 MINUTES 08/10/2020 12:00:00 AM EDT [facility] ([facility]) Results ID Date Data Source [id number] 07/19/2021 10:40:00 AM EDT [facility] Name Value Range Interpretation Code Description Data Michelle rce(s) Supporting Document(s) SARS coronavirus 2 RNA [Presence] in Res piratory specimen by OMI with probe detection NEGATIVE [facility] This lab was ordered by [facility] a nd reported by [facility]. ID Date Data Source [id number] 07/19/2021 09:50:00 AM EDT [facility] Name Value Range Interpretation Code Description Data Michelle rce(s) Supporting Document(s) SARS COVID ANTIGEN NEGATIVE [facility] a nd reported by [facility]. ID Date Data Source [id number] 06/04/2021 08:17:00 PM EDT [facility] Name Value Range Interpretation Code Description Data Michelle rce(s) Supporting Document(s) SARS coronavirus 2 RNA [Presence] in Res piratory specimen by OMI with probe detection NEGATIVE [facility] This lab was ordered by [facility] a nd reported by [facility]. ID Date Data Source [id number] 05/01/2021 01:57:00 PM EDT [facility] Name Value Range Interpretation Code Description Data Michelle rce(s) Supporting Document(s) SARS coronavirus 2 RNA [Presence] in Res piratory specimen by OMI with probe detection NEGATIVE [facility] This lab was ordered by [facility] a nd reported by [facility]. ID Date Data Source [id number] 04/19/2021 06:29:00 AM EDT [facility] Name Value Range Interpretation Code Description Data Michelle rce(s) Supporting Document(s) SARS coronavirus 2 RNA [Presence] in Res piratory specimen by OMI with probe detection NEGATIVE [facility] This lab was ordered by [facility] a nd reported by [facility]. ID Date Data Source [id number] 04/17/2021 05:50:00 PM EDT [facility] Name Value Range Interpretation Code Description Data Michelle rce(s) Supporting Document(s) SARS-CoV-2 (COVID-19) RNA [Presence] in Respiratory specimen by OMI with probe detection Not Detected [facility] This lab was ordered by [facility] and reported by [facility]. ID Date Data Source [id number] 02/28/2021 04:53:00 [place] [address] HEALTH INFORMATION MANAGEMENT History and Physical Report : [id number] Signed Patient: Gabo Parra Acct:[id number] Unit: M [id number] : 1980 [facility] [...] charges for this visit?: Yes Inpt Consult [id number] Cons Level 1: Yes Signed By:Rambo Summers <<Signature on File>> Signed Date/Time: 02/28/211657 Co-Signer: Leonel Hubbard MD Co-Signed Date/Time: 02/28/21 1725 Initializing User: Rambo Summers NP 02/28/211652 52 52 Name Value Range Interpretation Code Description Data Michelle rce(s) Supporting Document(s) ID Date Data Source [id number] 02/28/2021 10:45:00 AM [facility] [address] [place] [id number] HEALTH INFORMATION MANAGEMENT [facility] Psychosocial Summary : [id number] Signed Patient: Gabo Parra Acct:[id number] Unit: M [id number] : 1980 Loc: [facility] Room/Bed: 820-B Age/Sex: 40 / M ADM Date: 02/27/21 cc: General/History - Presenting Problem Presenting Problem: Social Summary/Discharge plan Presenting Problem Gabo is a40 yo AAM, extensive psych hx, also problems with substance abuse admitted on a transfer from [facility] ER brought in there by his CW as pt was feeling depressed, suicidal, also hallucinating and after abusing drugs History. kaden was partially complaint with meds. Not able to name his psychiatrist in [place], not able to name the therapist. Gives h/o 5 to 6 inpt psych txs, last one few months ago, "I can't remember the place, they send me from [facility]. " Also, h'o inpt psych tx at [facility]. H/o self harm time, tried to [...] Person?: No Are you part of any adventism/spirtual community?: Yes ([employer] ) - Current Living/Relationship History Current Living Arrangement: House Who Do You Live With?: Mother. OK to Return Home: Yes Weapons in household: No Currently in a Relationship?: No Ever Been ?: No Any Children?: 2 - Family History Where Were You Born/Raised[place] Who Was in Home?: Mother, Father How [...] Dunn <<Signature on File>> Signed Date/Time: 03/15/21 3446 Co-Signer: Co-Signed Date/Time: Initializing User: Zac CAUSEY [id number] Name Value Range Interpretation Code Description Data Michelle rce(s) Supporting Document(s) ID Date Data Source [id number] 02/27/2021 04:28:00 PM EDT [facility] Name Value Range Interpretation Code Description Data Michelle rce(s) Supporting Document(s) SARS coronavirus 2 RNA [Presence] in Res piratory specimen by OMI with probe detection NEGATIVE [facility] This lab was ordered by [facility] a nd reported by [facility]. ID Date Data Source [id number] 01/23/2021 01:03:00 AM EDT [facility] Name Value Range Interpretation Code Description Data Michelle rce(s) Supporting Document(s) SARS coronavirus 2 RNA [Presence] in Res piratory specimen by OMI with probe detection NEGATIVE [facility] This lab was ordered by [facility] a nd reported by [facility]. ID Date Data Source [id number] 10/17/2020 12:19:00 AM EST [facility] Name Value Range Interpretation Code Description Data Michelle rce(s) Supporting Document(s) SARS coronavirus 2 RNA [Presence] in Res piratory specimen by OMI with probe detection [facility] This lab was ordered by [facility] a nd reported by [facility]. Procedure Social History Code Duration Value Status Description Data Source(s ) Smoking 09/02/2021 12:00:00 AM EDT Unknown if ever smoked comp leted Unknown if ever smoked [facility] ([facility]) Smoking 07/29/2021 12:00:00 AM EDT Unknown if ever smoked comp leted Unknown if ever smoked [facility] ([facility]) Smoking 06/24/2021 12:00:00 AM EDT Unknown if ever smoked comp leted Unknown if ever smoked [facility] ([facility]) Smoking 05/27/2021 12:00:00 AM EDT Unknown if ever smoked comp leted Unknown if ever smoked [facility] ([facility]) Smoking 05/13/2021 12:00:00 AM EDT Unknown if ever smoked comp leted Unknown if ever smoked [facility] ([facility]) Smoking 04/04/2021 12:00:00 AM EDT Unknown if ever smoked comp leted Unknown if ever smoked [facility] ([facility]) Smoking 04/03/2021 12:00:00 AM EDT Unknown if ever smoked comp leted Unknown if ever smoked [facility] ([facility] Smoking 03/27/2021 12:00:00 AM EDT Unknown if ever smoked comp leted Unknown if ever smoked [facility] ([facility]) Smoking 03/19/2021 12:00:00 AM EDT Unknown if ever smoked comp leted Unknown if ever smoked [facility] ([facility]) Smoking 02/12/2021 12:00:00 AM EDT Unknown if ever smoked comp leted Unknown if ever smoked [facility] ([facility]) Smoking 02/07/2021 12:00:00 AM EDT Unknown if ever smoked comp leted Unknown if ever smoked [facility] ([facility]) Smoking 02/01/2021 12:00:00 AM EDT Unknown if ever smoked comp leted Unknown if ever smoked [facility] ([facility]) Smoking 01/23/2021 12:00:00 AM EDT Unknown if ever smoked comp leted Unknown if ever smoked [facility] ([facility]) Smoking 01/18/2021 12:00:00 AM EDT Unknown if ever smoked comp leted Unknown if ever smoked [facility] ([facility]) Smoking 01/17/2021 12:00:00 AM EDT Unknown if ever smoked comp leted Unknown if ever smoked [facility] ([facility]) Smoking 01/01/2021 12:00:00 AM EST Unknown if ever smoked comp leted Unknown if ever smoked [facility] ([facility]) Smoking 12/28/2020 12:00:00 AM EST Unknown if ever smoked comp leted Unknown if ever smoked [facility] ([facility]) Smoking 12/20/2020 12:00:00 AM EST Unknown if ever smoked comp leted Unknown if ever smoked [facility] ([facility]) Smoking 12/06/2020 12:00:00 AM EST Unknown if ever smoked comp leted Unknown if ever smoked [facility] ([facility]) Smoking 11/15/2020 12:00:00 AM EST Unknown if ever smoked comp leted Unknown if ever smoked [facility] ([facility]) Smoking 10/18/2020 12:00:00 AM EST Unknown if ever smoked comp leted Unknown if ever smoked [facility] ([facility]) Smoking 10/15/2020 12:00:00 AM EST Unknown if ever smoked comp leted Unknown if ever smoked [facility] ([facility]) Smoking 10/04/2020 12:00:00 AM EST Unknown if ever smoked comp leted Unknown if ever smoked [facility] ([facility]) Smoking 09/12/2020 12:00:00 AM EST Unknown if ever smoked comp leted Unknown if ever smoked [facility] ([facility]) Smoking 08/10/2020 12:00:00 AM EDT Unknown if ever smoked comp leted Unknown if ever smoked [facility] ([facility]) Vital Signs ID Date Data Source UNK Name Value Range Interpretation Code Description Data Source(s) Body height 0.00 in Normal (applies to non-numeric resu lts) 0.00 in [facility] ([facility]) Body weight Measured 0.00 lbs Normal (applies to n on-numeric results) 0.00 lbs [facility] ([facility]) Body mass index (BMI) [Ratio] 0.00 kg/m2 No rmal (applies to non-numeric results) 0.00 kg/m2 [facility] ([facility]) Systolic blood pressure 0 mm[Hg] Normal (applies t o non-numeric results) 0 [facility]Hg] [facility] Diastolic blood pressure 0 mm[Hg] Normal (applies to non-numeric results) 0 mm[Hg] [facility] Body height 0.00 in Normal (applies to non-numeric resu lts) 0.00 in [facility] ([facility]) Body weight Measured 0.00 lbs Normal (applies to n on-numeric results) 0.00 lbs [facility] ([facility]) Body mass index (BMI) [Ratio] 0.00 kg/m2 No rmal (applies to non-numeric results) 0.00 kg/m2 [facility] ([facility]) Systolic blood pressure 0 mm[Hg] Normal (applies t o non-numeric results) 0 mm[Hg] [facility] ([facility]) Diastolic blood pressure 0 mm[Hg] Normal (applies to non-numeric results) 0 mm[Hg] [facility] ([facility]) Body height 0.00 in Normal (applies to non-numeric resu lts) 0.00 in [facility] ([facility]) Body weight Measured 0.00 lbs Normal (applies to n on-numeric results) 0.00 lbs [facility] ([facility]) Body mass index (BMI) [Ratio] 0.00 kg/m2 No rmal (applies to non-numeric results) 0.00 kg/m2 [facility] ([facility]) Systolic blood pressure 0 mm[Hg] Normal (applies t o non-numeric results) 0 mm[Hg] [facility] ([facility]) Diastolic blood pressure 0 mm[Hg] Normal (applies to non-numeric results) 0 mm[Hg] [facility] ([facility]) Body height 0.00 in Normal (applies to non-numeric resu lts) 0.00 in [facility] ([facility]) Body weight Measured 0.00 lbs Normal (applies to n on-numeric results) 0.00 lbs [facility] ([facility]) Body mass index (BMI) [Ratio] 0.00 kg/m2 No rmal (applies to non-numeric results) 0.00 kg/m2 [facility] ([facility]) Systolic blood pressure 0 mm[Hg] Normal (applies t o non-numeric results) 0 mm[Hg] [facility] ([facility]) Diastolic blood pressure 0 mm[Hg] Normal (applies to non-numeric results) 0 mm[Hg] [facility] ([facility]) ID Date Data Source [id number] 09/22/2020 02:27:[address] [facility] Name Value Range Interpretation Code Description Data Source(s) TRANSFER FROM [facility]
[2021-09-12 06:12] LABS: HEMATOCRIT 42.9 % (42.0-52.0); HEMOGLOBIN 14.4 g/dl (13.5-17.5); MEAN CORPUSCULAR HEMOGLOBIN 30.4 pg (27.0-33.0); MEAN CORPUSCULAR HGB CONC 33.6 g/dl (32.0-36.5); MEAN CORPUSCULAR VOLUME 90.5 fl (80.0-96.0); PLATELET COUNT, AUTOMATED 282 10^3/uL (150-450); RED BLOOD COUNT 4.74 10^6/uL (4.30-6.10); WHITE BLOOD COUNT 7.2 10^3/uL (4.0-10.0)
--- OUTSIDE RECORDS SUMMARY | 2021-09-12 06:37 | CCD ---
Author Author [facility] Organization [facility] Address Unknown Phone Unavailable Support Name Relationship Address Phone [place] GUTIERREZ, Pasha Next Of Kin [address] [place] [address] Diamante Costa Next Of Kin [address] [place] [address] Dwain Joseph DO Next Of Kin [address] [place] [address] Cameron Bingham MD Next Of Kin [address] [place] [address] SELFGARY Next Of Kin [address] [place] [address] YONI JACK Next Of Kin [address] [place] [address] [place]RE[place], [place] Next Of Kin [address] [place] [address] Monique Conklin MD Next Of Kin [address] [place] [phone] YONI CALHOUN Next Of Kin [address] [place] [address] Isabelle Manning Next Of Kin [address] [place] [address] Pat Gallo DO Next Of Kin [address] [place] [address] DISABLED Next Of Kin Unknown Unavailable [place] Self Next Of Kin [address] [place] [phone] SELF, JUNIOR Next Of Kin [address] [place] [address] UE Next Of Kin Unknown Unavailable SIMON WALL Next Of Kin [address] [place] [address] SELF, JUNIOR ECON [address] [place] [address] Unavailable Care Team Providers Care Gear Lapper Name Role Phone Farden, M Rambo Unavailable [...] Unavailable Gina Nash Unavailable AMILCAR, H ANSELMO WOUND CARE RN Unavailable Unavailable AMILCAR, H ANSELMO WOUND CARE RN Unavailable Unavailable AMILCAR, H ANSELMO WOUND CARE RN Unavailable Unavailable AMILCAR, H ANSELMO WOUND CARE RN Unavailable Unavailable AMILCAR, H ANSELMO WOUND CARE RN Unavailable Unavailable AMILCAR, H ANSELMO WOUND CARE RN Unavailable Unavailable AMILCAR, H ANSELMO WOUND CARE RN Unavailable Unavailable AMILCAR, H ANSELMO WOUND CARE RN Unavailable Unavailable AMILCAR, H ANSELMO WOUND CARE RN Unavailable Unavailable Jossie Marcelino Unavailable Rotella, Jossy Unavailable Unavailable Thalia Carreno Unavailable Bonfiacio Escobar MD Unavailable Unavailable Bonifacio Escobar MD [...] is protected by Article 27-F of the [facility] Public Health law. If you continue you may have access to information: Regarding HIV / AIDS; Provided by facilities licensed or operated by the [facility] Office of Mental Health; or Provided by the [facility] Office for People With Developmental Disabilities. If such information is present, then the following [facility] mandated warning applies: This information [...] allergy No Known Allergies No Known Allergies [facility] Propensity to adverse reactions NO KNOWN ALLERGIES NO KNOWN ALLERGIES [facility] Encounters Encounter Providers Location Date Indications Data Source(s ) Injectable Psychotropic Medication Administration (Inj ection Only) Attender: Thalia Carreno [facility] 09/02/2021 10:30:00 AM EDT - 09/02/2021 10:30:00 AM EDT [facility] ([facility]) Attender: Thalia Carreno 09/02/2021 12:00:00 AM EDT [facility] ([facility]) Injectable Medication Administration w/ Monitoring & E ducation Attender: [facility] 07/29/2021 02:30:00 AM EDT - 07/29/2021 02:30:00 AM EDT [facility] ([facility]) Attender: Pam Isbellpo 07/29/2021 12:00:00 AM EDT [facility] ([facility]) Injectable Medication Administration w/ Monitoring & E ducation Attender: Thalia Carreno [facility] 06/24/2021 10:45:00 AM EDT - 06/24/2021 10:45:00 AM EDT [facility] ([facility]) Attender: Thalia Carreno 06/24/2021 12:00:00 AM EDT [facility] ([facility]) Injectable Psychotropic Medication Administration (Inj ection Only) Attender: Thalia Carreno [facility] 05/27/2021 08:15:00 AM EDT - 05/27/2021 08:15:00 AM EDT [facility] ([facility]) Attender: Thalia Carreno 05/27/2021 12:00:00 AM EDT [facility] ([facility]) Brief Individual Psychotherapy - 30 min Attender: Gina yun [facility] 05/13/2021 08:30:00 AM EDT - 05/13/2021 08:30:00 AM EDT [facility] ([facility]) Attender: Gina Nash 05/13/2021 12:00:00 AM EDT [facility] ([facility]) Attender: Pam Larry 04/04/2021 12:00:00 AM EDT [facility] ([facility]) Injectable Medication Administration w/ Monitoring & E ducation Attender: Pam Borjapo [facility] Maria Alejandra 04/03/2021 09:00:00 AM EDT - 04/03/2021 09:00:00 AM EDT [facility] ([facility]) Outpatient Attender: ANSELMO APONTE NP [facility] Mike garcía 04/03/2021 08:30:00 AM EDT - 04/03/2021 08:30:00 AM EDT [facility] ([facility]) Attender: ANSELMO APONTE NP 04/03/2021 12:00:00 AM EDT [facility] ([facility]) Outpatient Attender: ANSELMO APONTE NP [facility] Mike garcía 03/27/2021 11:00:00 AM EDT - 03/27/2021 11:00:00 AM EDT [facility] ([facility]) Attender: ANSELMO APONTE NP 03/27/2021 12:00:00 AM EDT [facility] ([facility]) Outpatient Attender: ANSELMO APONTE NP [facility] Mike garcía 03/19/2021 03:00:00 AM EDT - 03/19/2021 03:00:00 AM EDT [facility] ([facility]) Attender: ANSELMO APONTE NP 03/19/2021 12:00:00 AM EDT [facility] ([facility]) Inpatient Attender: JONNATHAN TRACY MDAdmitter: JONNATHAN TRACY MD 02/27/2021 08:12:00 PM EDT - 03/08/2021 03:27:00 PM EDT Suicidal Ideation / Homicidal Ideation [facility] Suicidal Ideation / Homicidal Ideation Patient discharged. Outpatient Attender: JONNATHAN Marieei tter: JONNATHAN TRACY MDConsultant: JONNATHAN TRACY MD 02/27/2021 08:12:00 PM EDT Suicidal Ideation / H omicidal Ideation [facility] Suicidal Ideation / Homicidal Ideation Outpatient Attender: JONNATHAN Marieei tter: JONNATHAN TRACY MDConsultant: JONNATHAN TRACY MD 02/27/2021 08:12:00 PM EDT Suicidal Ideation / H omicidal Ideation [facility] Suicidal Ideation / Homicidal Ideation Outpatient Attender: Castro ColonAdmitter : JONNATHAN TRACY MDConsultant: JONNATHAN TRACY MD 02/27/2021 08:12:00 PM EDT [facility] Outpatient Attender: JONNATHAN Bonilla tter: JONNATHAN TRACY MDConsultant: JONNATHAN TRACY MD 02/27/2021 08:12:00 PM EDT [facility] Ide[facility] Homicidal Ideation Outpatient Attender: JONNATHAN Bonilla tter: JONNATHAN TRACY MDConsultant: JONNATHAN TRACY MD 02/27/2021 08:12:00 PM EDT Suicidal Ideation [facility] Homicidal Ideation Outpatient Attender: JONNATHAN Bonilla tter: JONNATHAN TRACY MDConsultant: JONNATHAN TRACY MD 02/27/2021 08:12:00 PM EDT Suicidal Ideation [facility] Homicidal Ideation Outpatient Attender: Castro ColonAdmitter : JONNATHAN TRACY MDConsultant: JONNATHAN TRACY MD 02/27/2021 08:12:00 PM EDT Suicidal Ideation [facility]idal Ideation [facility] / Homicidal Ideation Outpatient Attender: Castro ColonAdmitter : JONNATHAN TRACY MDConsultant: JONNATHAN TRACY MD 02/27/2021 08:12:00 PM EDT Suicidal Ideation [facility]idal Ideation [facility] / Homicidal Ideation Outpatient Attender: JONNATHAN Marieei tter: JONNATHAN TRACY MDConsultant: JONNATHAN TRACY MD 02/27/2021 08:12:00 PM EDT [facility] Outpatient Attender: Rambo Pedroza mitter: JONNATHAN TRACY MDConsultant: JONNATHAN TRACY MD 02/27/2021 08:12:00 PM EDT Suicidal Ide[facility] Ideation Outpatient Attender: ANSELMO APONTE NP [facility] 02/12/2021 10:30:00 AM EDT - 02/12/2021 10:30:00 AM EDT [facility] ([facility]) Attender: ANSELMO APONTE NP 02/12/2021 12:00:00 AM EDT [facility] ([facility]) Outpatient Attender: ANSELMO APONTE NP [facility] 02/07/2021 11:30:00 AM EDT - 02/07/2021 11:30:00 AM EDT [facility] ([facility]) Attender: ANSELMO APONTE NP 02/07/2021 12:00:00 AM EDT [facility] ([facility]) Brief Individual Psychotherapy - 30 min Attender: Gina yun [facility] 02/01/2021 02:00:00 AM EDT - 02/01/2021 02:00:00 AM EDT [facility] ([facility]) Attender: Gina Nash 02/01/2021 12:00:00 AM EDT [facility] ([facility]) Injectable Psychotropic Medication Administration (Inj ection Only) Attender: Thalia Carreno [facility] 01/23/2021 10:00:00 AM EDT - 01/23/2021 10:00:00 AM EDT [facility] ([facility]) Outpatient Attender: ANSELMO APONTE NP [facility] 01/23/2021 09:15:00 AM EDT - 01/23/2021 09:15:00 AM EDT [facility] ([facility]) Attender: ANSELMO APONTE NP 01/23/2021 12:00:00 AM EDT [facility] ([facility]) Attender: Thalia Carreno 01/23/2021 12:00:00 AM EDT [facility] ([facility]) Injectable Medication Administration w/ Monitoring & E ducation Attender: Pam Juarez [facility] 01/18/2021 11:00:00 AM EDT - 01/18/2021 11:00:00 AM EDT [facility] ([facility]) Attender: Pam Juarez 01/18/2021 12:00:00 AM EDT [facility] ([facility]) Outpatient Attender: ANSELMO APONTE NP [facility] 01/17/2021 09:00:00 AM EDT - 01/17/2021 09:00:00 AM EDT [facility] ([facility]) Attender: ANSELMO APONTE NP 01/17/2021 12:00:00 AM EDT [facility] ([facility]) Outpatient Attender: ANSELMO APONTE NP [facility] 01/01/2021 02:30:00 AM EST - 01/01/2021 02:30:00 AM EST [facility] ([facility]) Attender: ANSELMO APONTE NP 01/01/2021 12:00:00 AM EST [facility] ([facility]) Injectable Psychotropic Medication Administration (Inj ection Only) Attender: Jossie Marcelino [facility] 12/28/2020 10:30:00 AM EST - 12/28/2020 10:30:00 AM EST [facility] ([facility]) Attender: Jossie Marcelino 12/28/2020 12:00:00 AM EST [facility] ([facility]) Outpatient Attender: Victorino Escobar MD [facility] raquel 12/20/2020 09:30:00 AM EST - 12/20/2020 09:30:00 AM EST [facility] ([facility]) Attender: Victorino Escobar MD 12/20/2020 12:00:00 AM EST [facility] ([facility]) Outpatient Attender: Victorino Escobar MD [facility] Mike garcía 12/06/2020 12:30:00 PM EST - 12/06/2020 12:30:00 PM EST [facility] ([facility]) Attender: Victorino Escobar MD 12/06/2020 12:00:00 AM EST [facility] ([facility]) Injectable Medication Administration w/ Monitoring & E ducation Attender: ORGANIZATION NPI ALIASES [facility] 11/15/2020 11:15: 00 AM EST - 11/15/2020 11:15:00 AM EST [facility] ([facility]) Outpatient Attender: Victorino Escobar MD [facility] Mike garcía 11/15/2020 11:00:00 AM EST - 11/15/2020 11:00:00 AM EST [facility] ([facility]) Attender: ORGANIZATION NPI ALIASES * 11/15/2020 12:00:00 AM EST [facility] ([facility]) Attender: Victorino Escobar MD 11/15/2020 12:00:00 AM EST [facility] ([facility]) Injectable Psychotropic Medication Administration (Inj ection Only) Attender: Jossy Mejia [facility] 10/18/2020 10:30:00 AM EST - 10/18/2020 10:30:00 AM EST [facility] ([facility]) Attender: Jossy Mejia 10/18/2020 12:00:00 AM EST [facility] ([facility]) Injectable Psychotropic Medication Administration (Inj ection Only) Attender: Jossy Mejia [facility] 10/15/2020 11:00:00 AM EST - 10/15/2020 11:00:00 AM EST [facility] ([facility]) Attender: Jossy Mejia 10/15/2020 12:00:00 AM EST [facility] ([facility]) Injectable Psychotropic Medication Administration (Inj ection Only) [facility] 10:30:00 AM EST - 10/04/2020 10:30:00 AM EST [facility] ([facility]) Outpatient Attender: KALLI VALLEJO [facility] 10/04/2020 10:00:00 AM EST - 10/04/2020 10:00:00 AM EST [facility] ([facility]) Attender: Jossy Mejia 10/04/2020 12:00:00 AM EST [facility] ([facility]) Attender: KALLI VALLEJO 10/04/2020 12:00: 00 AM EST [facility] ([facility]) Outpatient Referrer: [facility] [place] 09/22/2020 0 2:27:00 PM EST schizophrenia, hallucinations, substance abuse [facility] schizophrenia, hallucinations, substance abuse Injectable Psychotropic Medication Administration (Inj ection Only) Attender: Jossy Mejia [facility] 09/12/2020 09:30:00 AM EST - 09/12/2020 09:30:00 AM EST [facility] ([facility]) Outpatient Attender: KALLI MOLINAURSZULA [facility] 09/12/2020 09:00:00 AM EST - 09/12/2020 09:00:00 AM EST [facility] ([facility]) Attender: KALLI VALLEJO 09/12/2020 12:00: 00 AM EST [facility] ([facility]) Attender: Jossy Mejia 09/12/2020 12:00:00 AM EST [facility] ([facility]) Outpatient Attender: KALLI MOLINAURSZULA [facility] ail 08/10/2020 02:00:00 AM EDT - 08/10/2020 02:00:00 AM EDT [facility] ([facility]) Attender: KALLI VALLEJO 08/10/2020 12:00: 00 AM EDT [facility] ([facility]) Functional Status Medications Medication Brand Name Start Date Product Form Dose Route Admi nistrative Instructions Pharmacy Instructions Status Indications Reaction Description Data Source(s) Prazosin 1 MG Oral Capsule prazosin 07/10/2021 12:00:00 AM EDT 1 mg by mouth completed <td ID="Medicat ionRxNorm_4">740236</td><td ID="MedicationMedication_4">prazosin</td><td ID="MedicationRoute_4">by mouth</td><td ID="MedicationRouteConcept_4">X79409</td><td ID="MedicationStartDate_4">07/10/2021</td><td ID="MedicationStopDate_4">09/30/2021</td><td ID="MedicationDosageFrequency_4">at bedtime</td><td ID="MedicationDuration_4">30</td><td ID="MedicationFormulaStrength_4">1 mg</td><td ID="MedicationDosageForm_4">capsule</td><td ID="MedicationDosageFormCode_4"></td><td ID="MedicationDosageDescription_4"></td><td ID="MedicationMedicationId_4">[id number]</td><td ID="MedicationAccount_4">[id number]</td><td ID="MedicationNpid_4">[id number]</td><td ID="MedicationAuthorFirstName_4">Anselmo</td><td ID="MedicationAuthorLastName_4">Amilcar</td><td ID="MedicationTaxonomyCode_4">[id number]</td><td ID="MedicationTaxonomyDesc_4">Nurse Practitioner</td><td ID="MedicationPhoneNumber_4">[phone]</td> [facility] ([facility]) olanzapine 5 MG Oral Tablet [Zyprexa] Zyprexa 05/23/2021 12:00:00 AM EDT 5 mg by mouth completed <td ID="Medica tionRxNorm_2">001867</td><td ID="MedicationMedication_2">Zyprexa</td><td ID="MedicationRoute_2">by mouth</td><td ID="MedicationRouteConcept_2">R58379</td><td ID="MedicationStartDate_2">05/23/2021</td><td ID="MedicationStopDate_2">09/30/2021</td><td ID="MedicationDosageFrequency_2">at bedtime</td><td ID="MedicationDuration_2">30</td><td ID="MedicationFormulaStrength_2">5 mg</td><td ID="MedicationDosageForm_2">tablet</td><td ID="MedicationDosageFormCode_2"></td><td ID="MedicationDosageDescription_2"></td><td ID="MedicationMedicationId_2">[id number]</td><td ID="MedicationAccount_2">[id number]</td><td ID="MedicationNpid_2">[id number]</td><td ID="MedicationAuthorFirstName_2">Anselmo</td><td ID="MedicationAuthorLastName_2">Amilcar</td><td ID="MedicationTaxonomyCode_2">[id number]</td><td ID="MedicationTaxonomyDesc_2">Nurse Practitioner</td><td ID="MedicationPhoneNumber_2">[phone]</td> [facility] ([facility]) benztropine mesylate 1 MG Oral Tablet benztropine 05/23/2021 12:00 :00 AM EDT 1 mg by mouth completed <td ID="Me dicationRxNorm_3">807999</td><td ID="MedicationMedication_3">benztropine</td><td ID="MedicationRoute_3">by mouth</td><td ID="MedicationRouteConcept_3">N38459</td><td ID="MedicationStartDate_3">05/23/2021</td><td ID="MedicationStopDate_3">09/30/2021</td><td ID="MedicationDosageFrequency_3">at bedtime</td><td ID="MedicationDuration_3">30</td><td ID="MedicationFormulaStrength_3">1 mg</td><td ID="MedicationDosageForm_3">tablet</td><td ID="MedicationDosageFormCode_3"></td><td ID="MedicationDosageDescription_3"></td><td ID="MedicationMedicationId_3">[id number]</td><td ID="MedicationAccount_3">[id number]</td><td ID="MedicationNpid_3">[id number]</td><td ID="MedicationAuthorFirstName_3">Anselmo</td><td ID="MedicationAuthorLastName_3">Amilcar</td><td ID="MedicationTaxonomyCode_3">[id number]</td><td ID="MedicationTaxonomyDesc_3">Nurse Practitioner</td><td ID="MedicationPhoneNumber_3">[phone]</td> [facility] ([facility]) 1.5 ML paliperidone palmitate 156 MG/ML Prefilled Syri nge [Invega] Invega Sustenna 04/16/2021 12:00:00 AM EDT 234 mg/1.5 compl eted <td ID="MedicationRxNorm_1">[id number]</td><td ID="MedicationMedication_1">Invega Sustenna</td><td ID="MedicationRoute_1"></td><td ID="MedicationRouteConcept_1"></td><td ID="MedicationStartDate_1">04/16/2021</td><td ID="MedicationStopDate_1"></td><td ID="MedicationDosageFrequency_1"></td><td ID="MedicationDuration_1"></td><td ID="MedicationFormulaStrength_1">234 mg/1.5 mL</td><td ID="MedicationDosageForm_1">syringe</td><td ID="MedicationDosageFormCode_1"></td><td ID="MedicationDosageDescription_1"> </td><td ID="MedicationMedicationId_1">[id number]</td><td ID="MedicationAccount_1">[id number]</td><td ID="MedicationNpid_1">[id number]</td><td ID="MedicationAuthorFirstName_1">Anselmo</td><td ID="MedicationAuthorLastName_1">Amilcar</td><td ID="MedicationTaxonomyCode_1">[id number]</td><td ID="MedicationTaxonomyDesc_1">Nurse Practitioner</td><td ID="MedicationPhoneNumber_1">[phone]</td> [facility] ([facility]) 2.625 ML paliperidone palmitate 312 MG/ML Prefilled Sy ringe [Invega] Invega Trinza 04/03/2021 12:00:00 AM EDT 819 mg/2.625 compl eted <td ID="MedicationRxNorm_3">[id number]</td><td ID="MedicationMedication_3">Invega Trinza</td><td ID="MedicationRoute_3">intramuscularly</td><td ID="MedicationRouteConcept_3"></td><td ID="MedicationStartDate_3">04/03/2021</td><td ID="MedicationStopDate_3">07/02/2021</td><td ID="MedicationDosageFrequency_3">every three months</td><td ID="MedicationDuration_3">90</td><td ID="MedicationFormulaStrength_3">819 mg/2.625 mL</td><td ID="MedicationDosageForm_3">syringe</td><td ID="MedicationDosageFormCode_3"></td><td ID="MedicationDosageDescription_3"></td><td ID="MedicationMedicationId_3">[id number]</td><td ID="MedicationAccount_3">[id number]</td><td ID="MedicationNpid_3">[id number]</td><td ID="MedicationAuthorFirstName_3">Anselmo</td><td ID="MedicationAuthorLastName_3">Amilcar</td><td ID="MedicationTaxonomyCode_3">[id number]</td><td ID="MedicationTaxonomyDesc_3"> Nurse Practitioner</td><td ID="MedicationPhoneNumber_3">[phone]</td> [facility] ([facility]) 2.625 ML paliperidone palmitate 312 MG/ML Prefilled Sy ringe [Invega] Invega Trinza 04/03/2021 12:00:00 AM EDT 819 mg/2.625 compl eted <td ID="MedicationRxNorm_4">[id number]</td><td ID="MedicationMedication_4">Invega Trinza</td><td ID="MedicationRoute_4">intramuscularly</td><td ID="MedicationRouteConcept_4"></td><td ID="MedicationStartDate_4">04/03/2021</td><td ID="MedicationStopDate_4">07/02/2021</td><td ID="MedicationDosageFrequency_4">every three months</td><td ID="MedicationDuration_4">90</td><td ID="MedicationFormulaStrength_4">819 mg/2.625 mL</td><td ID="MedicationDosageForm_4">syringe</td><td ID="MedicationDosageFormCode_4"></td><td ID="MedicationDosageDescription_4"></td><td ID="MedicationMedicationId_4">[id number]</td><td ID="MedicationAccount_4">[id number]</td><td ID="MedicationNpid_4">[id number]</td><td ID="MedicationAuthorFirstName_4">Anselmo</td><td ID="MedicationAuthorLastName_4">Amilcar</td><td ID="MedicationTaxonomyCode_4">[id number]</td><td ID="MedicationTaxonomyDesc_4"> Nurse Practitioner</td><td ID="MedicationPhoneNumber_4">[phone]</td> [facility] ([facility]) haloperidol decanoate haloperidol decanoate 04/03/2021 12:00:00 AM EDT 100 mg/mL completed <td ID="Me dicationRxNorm_2">[id number]</td><td ID="MedicationMedication_2">haloperidol decanoate</td><td ID="MedicationRoute_2">intramuscularly</td><td ID="MedicationRouteConcept_2"> </td><td ID="MedicationStartDate_2">04/03/2021</td><td ID="MedicationStopDate_2">04/03/2021</td><td ID="MedicationDosageFrequency_2">every four weeks</td><td ID="MedicationDuration_2">28</td><td ID="MedicationFormulaStrength_2">100 mg/mL</td><td ID="MedicationDosageForm_2">solution</td><td ID="MedicationDosageFormCode_2"></td><td ID="MedicationDosageDescription_2"></td><td ID="MedicationMedicationId_2">[id number]</td><td ID="MedicationAccount_2">[id number]</td><td ID="MedicationNpid_2">[id number]</td><td ID="MedicationAuthorFirstName_2">Anselmo</td><td ID="MedicationAuthorLastName_2">Amilcar</td><td ID="MedicationTaxonomyCode_2">[id number]</td><td ID="MedicationTaxonomyDesc_2"> Nurse Practitioner</td><td ID="MedicationPhoneNumber_2">[phone]</td> [facility] ([facility]) benztropine mesylate 1 MG Oral Tablet benztropine 04/03/2021 12:00 :00 AM EDT 1 mg by mouth completed <td ID="Me dicationRxNorm_2">747304</td><td ID="MedicationMedication_2">benztropine</td><td ID="MedicationRoute_2">by mouth</td><td ID="MedicationRouteConcept_2">P97900</td><td ID="MedicationStartDate_2">04/03/2021</td><td ID="MedicationStopDate_2">05/03/2021</td><td ID="MedicationDosageFrequency_2">at bedtime</td><td ID="MedicationDuration_2">30</td><td ID="MedicationFormulaStrength_2">1 mg</td><td ID="MedicationDosageForm_2">tablet</td><td ID="MedicationDosageFormCode_2"></td><td ID="MedicationDosageDescription_2"></td><td ID="MedicationMedicationId_2">[id number]</td><td ID="MedicationAccount_2">[id number]</td><td ID="MedicationNpid_2">[id number]</td><td ID="MedicationAuthorFirstName_2">Anselmo</td><td ID="MedicationAuthorLastName_2">Amilcar</td><td ID="MedicationTaxonomyCode_2">[id number]</td><td ID="MedicationTaxonomyDesc_2">Nurse Practitioner</td><td ID="MedicationPhoneNumber_2">[phone]</td> [facility] ([facility]) olanzapine 5 MG Oral Tablet [Zyprexa] Zyprexa 04/03/2021 12:00:00 AM EDT 5 mg by mouth completed <td ID="Medica tionRxNorm_1">[id number]</td><td ID="MedicationMedication_1">Zyprexa</td><td ID="MedicationRoute_1">by mouth</td><td ID="MedicationRouteConcept_1">V36753</td><td ID="MedicationStartDate_1">04/03/2021</td><td ID="MedicationStopDate_1">05/03/2021</td><td ID="MedicationDosageFrequency_1">at bedtime</td><td ID="MedicationDuration_1">30</td><td ID="MedicationFormulaStrength_1">5 mg</td><td ID="MedicationDosageForm_1">tablet</td><td ID="MedicationDosageFormCode_1"></td><td ID="MedicationDosageDescription_1"></td><td ID="MedicationMedicationId_1">[id number]</td><td ID="MedicationAccount_1">[id number]</td><td ID="MedicationNpid_1">[id number]</td><td ID="MedicationAuthorFirstName_1">Anselmo</td><td ID="MedicationAuthorLastName_1">Amilcar</td><td ID="MedicationTaxonomyCode_1">[id number]</td><td ID="MedicationTaxonomyDesc_1">Nurse Practitioner</td><td ID="MedicationPhoneNumber_1">[phone]</td> [facility] ([facility]) 2.625 ML paliperidone palmitate 312 MG/ML Prefilled Sy ringe [Invega] [facility] 04/03/2021 12:00:00 AM EDT 819 mg/2.625 compl eted <td ID="MedicationRxNorm_5">9796154</td><td ID="MedicationMedication_5">Invega Trinza</td><td ID="MedicationRoute_5">intramuscularly</td><td ID="MedicationRouteConcept_5"></td><td ID="MedicationStartDate_5">04/03/2021</td><td ID="MedicationStopDate_5">07/02/2021</td><td ID="MedicationDosageFrequency_5">every three months</td><td ID="MedicationDuration_5">90</td><td ID="MedicationFormulaStrength_5">819 mg/2.625 mL</td><td ID="MedicationDosageForm_5">syringe</td><td ID="MedicationDosageFormCode_5"></td><td ID="MedicationDosageDescription_5"></td><td ID="MedicationMedicationId_5">[id number]</td><td ID="MedicationAccount_5">[id number]</td><td ID="MedicationNpid_5">[id number]</td><td ID="MedicationAuthorFirstName_5">Anselmo</td><td ID="MedicationAuthorLastName_5">Amilcar</td><td ID="MedicationTaxonomyCode_5">[id number]</td><td ID="MedicationTaxonomyDesc_5"> Nurse Practitioner</td><td ID="MedicationPhoneNumber_5">[phone]</td> [facility] ([facility]) benztropine mesylate 1 MG Oral Tablet benztropine 04/03/2021 12:00 :00 AM EDT 1 mg by mouth completed <td ID="Me dicationRxNorm_4">051157</td><td ID="MedicationMedication_4">benztropine</td><td ID="MedicationRoute_4">by mouth</td><td ID="MedicationRouteConcept_4">F63638</td><td ID="MedicationStartDate_4">04/03/2021</td><td ID="MedicationStopDate_4">05/03/2021</td><td ID="MedicationDosageFrequency_4">at bedtime</td><td ID="MedicationDuration_4">30</td><td ID="MedicationFormulaStrength_4">1 mg</td><td ID="MedicationDosageForm_4">tablet</td><td ID="MedicationDosageFormCode_4"></td><td ID="MedicationDosageDescription_4"></td><td ID="MedicationMedicationId_4">[id number]</td><td ID="MedicationAccount_4">[id number]</td><td ID="MedicationNpid_4">[id number]</td><td ID="MedicationAuthorFirstName_4">Anselmo</td><td ID="MedicationAuthorLastName_4">Amilcar</td><td ID="MedicationTaxonomyCode_4">[id number]</td><td ID="MedicationTaxonomyDesc_4">Nurse Practitioner</td><td ID="MedicationPhoneNumber_4">[phone]</td> [facility] ([facility]) olanzapine 5 MG Oral Tablet [Zyprexa] Zyprexa 04/03/2021 12:00:00 AM EDT 5 mg by mouth completed <td ID="Medica tionRxNorm_3">506927</td><td ID="MedicationMedication_3">Zyprexa</td><td ID="MedicationRoute_3">by mouth</td><td ID="MedicationRouteConcept_3">O02948</td><td ID="MedicationStartDate_3">04/03/2021</td><td ID="MedicationStopDate_3">05/03/2021</td><td ID="MedicationDosageFrequency_3">at bedtime</td><td ID="MedicationDuration_3">30</td><td ID="MedicationFormulaStrength_3">5 mg</td><td ID="MedicationDosageForm_3">tablet</td><td ID="MedicationDosageFormCode_3"></td><td ID="MedicationDosageDescription_3"></td><td ID="MedicationMedicationId_3">[id number]</td><td ID="MedicationAccount_3">[id number]</td><td ID="MedicationNpid_3">[id number]</td><td ID="MedicationAuthorFirstName_3">Anselmo</td><td ID="MedicationAuthorLastName_3">Amilcar</td><td ID="MedicationTaxonomyCode_3">[id number]</td><td ID="MedicationTaxonomyDesc_3">Nurse Practitioner</td><td ID="MedicationPhoneNumber_3">[phone]</td> [facility] ([facility]) 2.625 ML paliperidone palmitate 312 MG/ML Prefilled Sy ringe [Invega] Invega Socorroza 04/03/2021 12:00:00 AM EDT 819 mg/2.625 compl eted <td ID="MedicationRxNorm_2">8423047</td><td ID="MedicationMedication_2">Invega Trinza</td><td ID="MedicationRoute_2">intramuscularly</td><td ID="MedicationRouteConcept_2"></td><td ID="MedicationStartDate_2">04/03/2021</td><td ID="MedicationStopDate_2">07/02/2021</td><td ID="MedicationDosageFrequency_2">every three months</td><td ID="MedicationDuration_2">90</td><td ID="MedicationFormulaStrength_2">819 mg/2.625 mL</td><td ID="MedicationDosageForm_2">syringe</td><td ID="MedicationDosageFormCode_2"></td><td ID="MedicationDosageDescription_2"></td><td ID="MedicationMedicationId_2">[id number]</td><td ID="MedicationAccount_2">[id number]</td><td ID="MedicationNpid_2">[id number]</td><td ID="MedicationAuthorFirstName_2">Anselmo</td><td ID="MedicationAuthorLastName_2">Amilcar</td><td ID="MedicationTaxonomyCode_2">[id number]</td><td ID="MedicationTaxonomyDesc_2"> Nurse Practitioner</td><td ID="MedicationPhoneNumber_2">[phone]</td> [facility] ([facility]) haloperidol decanoate haloperidol decanoate 10/04/2020 12:00:00 AM EST 100 mg/mL completed <td ID="Me dicationRxNorm_1">0133071</td><td ID="MedicationMedication_1">haloperidol decanoate</td><td ID="MedicationRoute_1">intramuscularly</td><td ID="MedicationRouteConcept_1"> </td><td ID="MedicationStartDate_1">10/04/2020</td><td ID="MedicationStopDate_1">04/03/2021</td><td ID="MedicationDosageFrequency_1">as directed</td><td ID="MedicationDuration_1">21</td><td ID="MedicationFormulaStrength_1">100 mg/mL</td><td ID="MedicationDosageForm_1">solution</td><td ID="MedicationDosageFormCode_1"></td><td ID="MedicationDosageDescription_1"></td><td ID="MedicationMedicationId_1">[id number]</td><td ID="MedicationAccount_1">[id number]</td><td ID="MedicationNpid_1">[id number]</td><td ID="MedicationAuthorFirstName_1">Victorino</td><td ID="MedicationAuthorLastName_1">Escobar</td><td ID="MedicationTaxonomyCode_1">[id number]</td><td ID="MedicationTaxonomyDesc_1"> Psychiatry</td><td ID="MedicationPhoneNumber_1">[phone]</td> [facility] ([facility]) 100 mg/mL 10/02/2020 12:00:00 [...] 50 mg by mouth completed <td ID="Medic ationRxNorm_5">187221</td><td ID="MedicationMedication_5">trazodone</td><td ID="MedicationRoute_5">by mouth</td><td ID="MedicationRouteConcept_5">C54729</td><td ID="MedicationStartDate_5">09/12/2020</td><td ID="MedicationStopDate_5">10/12/2020</td><td ID="MedicationDosageFrequency_5">every night</td><td ID="MedicationDuration_5">30</td><td ID="MedicationFormulaStrength_5">50 mg</td><td ID="MedicationDosageForm_5">tablet</td><td ID="MedicationDosageFormCode_5"></td><td ID="MedicationDosageDescription_5"></td><td ID="MedicationMedicationId_5">[id number]</td><td ID="MedicationAccount_5">[id number]</td><td ID="MedicationNpid_5">[id number]</td><td ID="MedicationAuthorFirstName_5">Kalli</td><td ID="MedicationAuthorLastName_5">Egorho</td><td ID="MedicationTaxonomyCode_5">[id number]</td><td ID="MedicationTaxonomyDesc_5">Nurse Practitioner</td><td ID="MedicationPhoneNumber_5">[phone]</td> [facility] ([facility]) Trazodone Hydrochloride 50 MG Oral Tablet trazodone 2019 12:00:00 AM EST 50 mg by mouth completed <td ID="Medic ationRxNorm_1">856351</td><td ID="MedicationMedication_1">trazodone</td><td ID="MedicationRoute_1">by mouth</td><td ID="MedicationRouteConcept_1">V39236</td><td ID="MedicationStartDate_1">09/12/2020</td><td ID="MedicationStopDate_1">10/12/2020</td><td ID="MedicationDosageFrequency_1">every night</td><td ID="MedicationDuration_1">30</td><td ID="MedicationFormulaStrength_1">50 mg</td><td ID="MedicationDosageForm_1">tablet</td><td ID="MedicationDosageFormCode_1"></td><td ID="MedicationDosageDescription_1"></td><td ID="MedicationMedicationId_1">[id number]</td><td ID="MedicationAccount_1">[id number]</td><td ID="MedicationNpid_1">[id number]</td><td ID="MedicationAuthorFirstName_1">Kalli</td><td ID="MedicationAuthorLastName_1">Egorho</td><td ID="MedicationTaxonomyCode_1">[id number]</td><td ID="MedicationTaxonomyDesc_1">Nurse Practitioner</td><td ID="MedicationPhoneNumber_1">[phone]</td> [facility] ([facility]) Haldol Decanoate Haldol Decanoate 09/12/2020 12:00:00 AM EST 100 mg/mL completed <td ID="MedicationRx Norm_4">9323115</td><td ID="MedicationMedication_4">Haldol Decanoate</td><td ID="MedicationRoute_4">intramuscularly</td><td ID="MedicationRouteConcept_4"></td><td ID="MedicationStartDate_4">09/12/2020</td><td ID="MedicationStopDate_4">09/15/2020</td><td ID="MedicationDosageFrequency_4">as directed</td><td ID="MedicationDuration_4">1</td><td ID="MedicationFormulaStrength_4">100 mg/mL</td><td ID="MedicationDosageForm_4">solution</td><td ID="MedicationDosageFormCode_4"></td><td ID="MedicationDosageDescription_4"></td><td ID="MedicationMedicationId_4">[id number]</td><td ID="MedicationAccount_4">[id number]</td><td ID="MedicationNpid_4">[id number]</td><td ID="MedicationAuthorFirstName_4">Kalli</td><td ID="MedicationAuthorLastName_4">Egorho</td><td ID="MedicationTaxonomyCode_4">[id number]</td><td ID="MedicationTaxonomyDesc_4">Nurse Practitioner</td><td ID="MedicationPhoneNumber_4">[phone]</td> [facility] ([facility]) quetiapine 300 MG Oral Tablet quetiapine 01/06/2020 12:00:00 AM EST 300 mg completed <td ID="Medicat ionRxNorm_4">186271</td><td ID="MedicationMedication_4">quetiapine</td><td ID="MedicationRoute_4"></td><td ID="MedicationRouteConcept_4"></td><td ID="MedicationStartDate_4">01/06/2020</td><td ID="MedicationStopDate_4">01/05/2021</td><td ID="MedicationDosageFrequency_4">at bedtime</td><td ID="MedicationDuration_4">30</td><td ID="MedicationFormulaStrength_4">300 mg</td><td ID="MedicationDosageForm_4">tablet</td><td ID="MedicationDosageFormCode_4"></td><td ID="MedicationDosageDescription_4"></td><td ID="MedicationMedicationId_4">99706</td><td ID="MedicationAccount_4">[id number]</td><td ID="MedicationNpid_4">[id number]</td><td ID="MedicationAuthorFirstName_4">Dane</td><td ID="MedicationAuthorLastName_4">Loida</td><td ID="MedicationTaxonomyCode_4">[id number]</td><td ID="MedicationTaxonomyDesc_4">Psychiatric/Mental Health</td><td ID="MedicationPhoneNumber_4">[phone]</td> [facility] ([facility]) quetiapine 300 MG Oral Tablet quetiapine 01/06/2020 12:00:00 AM EST 300 mg completed <td ID="Medicat ionRxNorm_1">611747</td><td ID="MedicationMedication_1">quetiapine</td><td ID="MedicationRoute_1"></td><td ID="MedicationRouteConcept_1"></td><td ID="MedicationStartDate_1">01/06/2020</td><td ID="MedicationStopDate_1">01/05/2021</td><td ID="MedicationDosageFrequency_1">at bedtime</td><td ID="MedicationDuration_1">30</td><td ID="MedicationFormulaStrength_1">300 mg</td><td ID="MedicationDosageForm_1">tablet</td><td ID="MedicationDosageFormCode_1"></td><td ID="MedicationDosageDescription_1"></td><td ID="MedicationMedicationId_1">36569</td><td ID="MedicationAccount_1">[id number]</td><td ID="MedicationNpid_1">[id number]</td><td ID="MedicationAuthorFirstName_1">Dane</td><td ID="MedicationAuthorLastName_1">Loida</td><td ID="MedicationTaxonomyCode_1">[id number]</td><td ID="MedicationTaxonomyDesc_1">Psychiatric/Mental Health</td><td ID="MedicationPhoneNumber_1">[phone]</td> [facility] ([facility]) quetiapine 300 MG Oral Tablet quetiapine 01/06/2020 12:00:00 AM EST 300 mg completed <td ID="Medicat ionRxNorm_5">979505</td><td ID="MedicationMedication_5">quetiapine</td><td ID="MedicationRoute_5"></td><td ID="MedicationRouteConcept_5"></td><td ID="MedicationStartDate_5">01/06/2020</td><td ID="MedicationStopDate_5">01/05/2021</td><td ID="MedicationDosageFrequency_5">at bedtime</td><td ID="MedicationDuration_5">30</td><td ID="MedicationFormulaStrength_5">300 mg</td><td ID="MedicationDosageForm_5">tablet</td><td ID="MedicationDosageFormCode_5"></td><td ID="MedicationDosageDescription_5"></td><td ID="MedicationMedicationId_5">04775</td><td ID="MedicationAccount_5">[id number]</td><td ID="MedicationNpid_5">[id number]</td><td ID="MedicationAuthorFirstName_5">Dane</td><td ID="MedicationAuthorLastName_5">Loida</td><td ID="MedicationTaxonomyCode_5">[id number]</td><td ID="MedicationTaxonomyDesc_5">Psychiatric/Mental Health</td><td ID="MedicationPhoneNumber_5">[phone]</td> [facility] ([facility]) Aristada Aristada 12/20/2019 12:00:00 AM EST mg/3.9 completed <td ID="MedicationRxNorm_3">0509060</td><td ID="MedicationMedication_3">Aristada</td><td ID="MedicationRoute_3">intramuscularly</td><td ID="MedicationRouteConcept_3"></td><td ID="MedicationStartDate_3">12/20/2019</td><td ID="MedicationStopDate_3">09/12/2020</td><td ID="MedicationDosageFrequency_3"></td><td ID="MedicationDuration_3"></td><td ID="MedicationFormulaStrength_3">1,064 mg/3.9 mL</td><td ID="MedicationDosageForm_3">suspension,extended rel syring</td><td ID="MedicationDosageFormCode_3"></td><td ID="MedicationDosageDescription_3">as directed</td><td ID="MedicationMedicationId_3">[id number]</td><td ID="MedicationAccount_3">[id number]</td><td ID="MedicationNpid_3">[id number]</td><td ID="MedicationAuthorFirstName_3">Dane</td><td ID="MedicationAuthorLastName_3">Loida</td><td ID="MedicationTaxonomyCode_3">[id number]</td><td ID="MedicationTaxonomyDesc_3"> Psychiatric/Mental Health</td><td ID="MedicationPhoneNumber_3">[phone]</td> [facility] ([facility]) Trazodone Hydrochloride 50 MG Oral Tablet trazodone 2018 12:00:00 AM EDT 50 mg by mouth completed <td ID="Medic ationRxNorm_2">220281</td><td ID="MedicationMedication_2">trazodone</td><td ID="MedicationRoute_2">by mouth</td><td ID="MedicationRouteConcept_2">A08439</td><td ID="MedicationStartDate_2">06/10/2019</td><td ID="MedicationStopDate_2">09/12/2020</td><td ID="MedicationDosageFrequency_2">at bedtime</td><td ID="MedicationDuration_2"></td><td ID="MedicationFormulaStrength_2">50 mg</td><td ID="MedicationDosageForm_2">tablet</td><td ID="MedicationDosageFormCode_2"></td><td ID="MedicationDosageDescription_2"></td><td ID="MedicationMedicationId_2">[id number]</td><td ID="MedicationAccount_2">[id number]</td><td ID="MedicationNpid_2">[id number]</td><td ID="MedicationAuthorFirstName_2">Dane</td><td ID="MedicationAuthorLastName_2">Loida</td><td ID="MedicationTaxonomyCode_2">[id number]</td><td ID="MedicationTaxonomyDesc_2">Psychiatric/Mental Health</td><td ID="MedicationPhoneNumber_2">[phone]</td> [facility] ([facility]) Amantadine Hydrochloride 100 MG Oral Capsule amantadine HCl 07/30/2017 12:00:00 AM EDT 100 mg by mouth completed <td ID="MedicationRxNorm_1">151543</td><td ID="MedicationMedication_1">amantadine HCl</td><td ID="MedicationRoute_1">by mouth</td><td ID="MedicationRouteConcept_1">H90555</td><td ID="MedicationStartDate_1">07/30/2017</td><td ID="MedicationStopDate_1">09/12/2020</td><td ID="MedicationDosageFrequency_1">every morning</td><td ID="MedicationDuration_1"></td><td ID="MedicationFormulaStrength_1">100 mg</td><td ID="MedicationDosageForm_1">capsule</td><td ID="MedicationDosageFormCode_1"></td><td ID="MedicationDosageDescription_1"></td><td ID="MedicationMedicationId_1">[id number]</td><td ID="MedicationAccount_1">[id number]</td><td ID="MedicationNpid_1">[id number]</td><td ID="MedicationAuthorFirstName_1">Dane</td><td ID="MedicationAuthorLastName_1">Severance</td><td ID="MedicationTaxonomyCode_1">[id number]</td><td ID="MedicationTaxonomyDesc_1">Psychiatric/Mental Health</td><td ID="MedicationPhoneNumber_1">[phone]</td> [facility] ([facility]) Insurance Providers Payer name Policy type / Coverage type Policy ID Covered republican ID Covered republican's relationship to shafer Policy Shafer Plan Information Medicaid S [id number] S [id number] Managed Care - Community Plan [facility] P [id number] S [id number] Medicaid S [id number] S [id number] [facility] I [id number] Self [id number] [facility] I [id number] Self [id number] [facility] I [id number] Self [id number] Managed Care - [facility] Community Plan P [id number] S [id number] Medicaid S [id number] S [id number] Managed Care - [facility] Community Plan P [id number] S [id number] [employer] COMM[employer]ITY [employer]AN MCDO [id number] SP [id number] [facility] MAN CRE [id number] SP [id number] [facility] [id number] SP [id number] SELF PAY [facility] OFFICE OF MENTAL HEALTH UNAVAILABLE S UNAVAILABLE MEDICAID [id number] S [id number] [facility] OFFICE OF MENTAL HEALTH [id number] S [id number] [employer] COMMUNITY PLAN MCDHMO [id number] SP [id number] [facility] OFFICE OF MENTAL HEALTH [id number] S [id number] [facility] [id number] SP [id number] SELF PAY ONLY [id number] SP [id number] [facility] [id number] SP [id number] SELF PAY SP [facility]) O [id number] S [id number] [facility] [id number] SP [id number] Self Pay P UNAVAILABLE S UNAVAILA BLE [facility]) O [id number] S [id number] [facility] [id number] SP [id number] MEDICAID [id number] SP [id number] [employer] COMMUNITY PLAN MCDO [id number] SP [id number] MEDICAID [id number] SP [id number] Problems, Conditions, and Diagnoses Code Display Name Description Problem Type Effective Dates Data Source(s) F11.10 Opioid abuse, uncomplicated F11.10 - Opioid abus e, uncomplicated Diagnosis 02/27/2021 08:12:00 PM EDT [facility] 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, uncomplicated F16.10 - Hallucinogen abuse, uncomplicated Diagnosis 02/27/2021 08:12:00 PM EDT [facility] F25.9 Schizoaffective disorder, unspecified F2 5.9 - Schizoaffective disorder, unspecified Diagnosis 02/27/2021 08:12:00 PM EDT [facility] Z13.9 Encounter for screening, unspecified Z13 .9 - Encounter for screening, unspecified Diagnosis 02/27/2021 08:12:00 PM EDT [facility] schizophrenia, hallucinations, substance abuse schizophrenia, hallucinations, substance abuse Diagnosis 09/22/2020 02:27:00 PM [facility] F15.20 Other stimulant dependence, uncomplicate d Stimulant Use Disorder, Moderate: Amphetamine-type substance Condition 09/02/2021 12:00:00 AM EDT [facility] ([facility]) F10.20 Alcohol dependence, uncomplicated Alcohol Use Disorder , Severe Condition 09/02/2021 12:00:00 AM EDT [facility] ([facility]) F17.200 Nicotine dependence, unspecified, uncomp licated Tobacco Use Disorder, Moderate Condition 09/02/2021 12:00:00 AM EDT [facility] ([facility]) F12.20 Cannabis dependence, uncomplicated Cannabis Use Disorder, Moderate Condition 09/02/2021 12:00:00 AM EDT [facility] ([facility]) F20.9 Schizophrenia, unspecified Schizophrenia Condition 09/02/2021 12:00:00 AM EDT [facility] ([facility]) Surgeries/Procedures Procedure Description Date Indications Data Source(s) THERAPEUTIC PROPHYLACTIC/DX INJECTION SUBQ/IM 09/02/2021 12:00:00 AM EDT - 09/02/2021 12:00:00 AM EDT [facility] ([facility]) THERAPEUTIC PROPHYLACTIC/DX INJECTION SUBQ/IM 09/02/20 12:00:00 AM EDT [facility] ([facility]) Comprehensive medication services, per 15 minutes 07/29/2021 12:00:00 AM EDT - 07/29/2021 12:00:00 AM EDT [facility] ([facility]) Comprehensive medication services, per 15 minutes 07/29/2021 12:00:00 AM EDT [facility] ([facility]) Comprehensive medication services, per 15 minutes 06/24/2021 12:00:00 AM EDT - 06/24/2021 12:00:00 AM EDT [facility] ([facility]) Comprehensive medication services, per 15 minutes 06/24/2021 12:00:00 AM EDT [facility] ([facility]) THERAPEUTIC PROPHYLACTIC/DX INJECTION SUBQ/IM 05/27/2021 12:00:00 AM EDT - 05/27/2021 12:00:00 AM EDT [facility] ([facility]) THERAPEUTIC PROPHYLACTIC/DX INJECTION SUBQ/IM 05/27/20 12:00:00 AM EDT [facility] ([facility]) Brief Individual Psychotherapy - 30 min 05/13/2021 12:00:00 AM EDT - 05/13/2021 12:00:00 AM EDT [facility] ([facility]) Brief Individual Psychotherapy - 30 min 05/13/2021 12: 00:00 AM EDT [facility] ([facility]) Comprehensive medication services, per 15 minutes 04/04/2021 12:00:00 AM EDT - 04/04/2021 12:00:00 AM EDT [facility] ([facility]) Comprehensive medication services, per 15 minutes 04/03/2021 12:00:00 AM EDT [facility] ([facility]) OFFICE OUTPATIENT VISIT 15 MINUTES 04/03 12:00:00 AM EDT - 04/03/2021 12:00:00 AM EDT [facility] ([facility]) Psychotherapy ADD ON - 30 Minutes 04/03/2021 12:00:00 AM EDT [facility] ([facility]) OFFICE OUTPATIENT VISIT 15 MINUTES 04/03/2021 12:00:00 AM EDT [facility] ([facility]) OFFICE OUTPATIENT VISIT 15 MINUTES 03/27 12:00:00 AM EDT - 03/27/2021 12:00:00 AM EDT [facility] ([facility]) OFFICE OUTPATIENT VISIT 15 MINUTES 03/27/2021 12:00:00 AM EDT [facility] ([facility]) OFFICE OUTPATIENT VISIT 15 MINUTES 03/19 12:00:00 AM EDT - 03/19/2021 12:00:00 AM EDT [facility] ([facility]) OFFICE OUTPATIENT VISIT 15 MINUTES 03/19/2021 12:00:00 AM EDT [facility] ([facility]) OFFICE OUTPATIENT VISIT 15 MINUTES 02/12 12:00:00 AM EDT - 02/12/2021 12:00:00 AM EDT [facility] ([facility]) OFFICE OUTPATIENT VISIT 15 MINUTES 02/12/2021 12:00:00 AM EDT [facility] ([facility]) OFFICE OUTPATIENT VISIT 15 MINUTES 02/07 12:00:00 AM EDT - 02/07/2021 12:00:00 AM EDT [facility] ([facility]) OFFICE OUTPATIENT VISIT 15 MINUTES 02/07/2021 12:00:00 AM EDT [facility] ([facility]) Brief Individual Psychotherapy - 30 min 02/01/2021 12:00:00 AM EDT - 02/01/2021 12:00:00 AM EDT [facility] ([facility]) Brief Individual Psychotherapy - 30 min 02/01/2021 12: 00:00 AM EDT [facility] ([facility]) OFFICE OUTPATIENT VISIT 15 MINUTES 01/23 12:00:00 AM EDT - 01/23/2021 12:00:00 AM EDT [facility] ([facility]) OFFICE OUTPATIENT VISIT 15 MINUTES 01/23/2021 12:00:00 AM EDT [facility] ([facility]) THERAPEUTIC PROPHYLACTIC/DX INJECTION SUBQ/IM 01/23/2021 12:00:00 AM EDT - 01/23/2021 12:00:00 AM EDT [facility] ([facility]) THERAPEUTIC PROPHYLACTIC/DX INJECTION SUBQ/IM 01/24/20 12:00:00 AM EDT [facility] ([facility]) Comprehensive medication services, per 15 minutes 01/18/2021 12:00:00 AM EDT - 01/18/2021 12:00:00 AM EDT [facility] ([facility]) Comprehensive medication services, per 15 minutes 01/18/2021 12:00:00 AM EDT [facility] ([facility]) OFFICE OUTPATIENT VISIT 15 MINUTES 01/17 12:00:00 AM EDT - 01/17/2021 12:00:00 AM EDT [facility] ([facility]) OFFICE OUTPATIENT VISIT 15 MINUTES 01/17/2021 12:00:00 AM EDT [facility] ([facility]) MHC Telemed E/M Lvl 3--Est pt 01/01/2021 12:00:00 AM EST - 01/01/2021 12:00:00 AM EST [facility] ([facility]) MHC Telemed E/M Lvl 3--Est pt 01/01/2021 12:00:[address] [facility] ([facility]) THERAPEUTIC PROPHYLACTIC/DX INJECTION SUBQ/IM 12/28/2020 12:00:00 AM EST - 12/28/2020 12:00:00 AM EST [facility] ([facility]) THERAPEUTIC PROPHYLACTIC/DX INJECTION SUBQ/IM 12/28/19 12:00:00 AM EST [facility] ([facility]) MHC Telemed E/M Lvl 3--Est pt 12/20/2020 12:00:00 AM EST - 12/20/2020 12:00:00 AM EST [facility] ([facility]) MHC Telemed E/M Lvl 3--Est pt 12/20/2020 12:00:[address] [facility] ([facility]) MHC Telemed E/M Lvl 3--Est pt 12/06/2020 12:00:00 AM EST - 12/06/2020 12:00:00 AM EST [facility] ([facility]) MHC Telemed E/M Lvl 3--Est pt 12/06/2020 12:00:[address] [facility] ([facility]) Comprehensive medication services, per 15 minutes 11/15/2020 12:00:00 AM EST - 11/15/2020 12:00:00 AM EST [facility] ([facility]) Comprehensive medication services, per 15 minutes 11/15/2020 12:00:00 AM EST [facility] ([facility]) OFFICE OUTPATIENT VISIT 15 MINUTES 11/15 12:00:00 AM EST - 11/15/2020 12:00:00 AM EST [facility] ([facility]) OFFICE OUTPATIENT VISIT 15 MINUTES 11/15/2020 12:00:00 AM EST [facility] ([facility]) THERAPEUTIC PROPHYLACTIC/DX INJECTION SUBQ/IM 10/18/2020 12:00:00 AM EST - 10/18/2020 12:00:00 AM EST [facility] ([facility]) THERAPEUTIC PROPHYLACTIC/DX INJECTION SUBQ/IM 10/18/20 20 12:00:00 AM EST [facility] ([facility]) THERAPEUTIC PROPHYLACTIC/DX INJECTION SUBQ/IM 10/15/2020 12:00:00 AM EST - 10/15/2020 12:00:00 AM EST [facility] ([facility]) THERAPEUTIC PROPHYLACTIC/DX INJECTION SUBQ/IM 10/15/20 20 12:00:00 AM EST [facility] ([facility]) THERAPEUTIC PROPHYLACTIC/DX INJECTION SUBQ/IM 10/04/2020 12:00:00 AM EST - 10/04/2020 12:00:00 AM EST [facility] ([facility]) THERAPEUTIC PROPHYLACTIC/DX INJECTION SUBQ/IM 10/04/20 20 12:00:00 AM EST [facility] ([facility]) OFFICE OUTPATIENT VISIT 15 MINUTES 10/04 12:00:00 AM EST - 10/04/2020 12:00:00 AM EST [facility] ([facility]) OFFICE OUTPATIENT VISIT 15 MINUTES 10/04/2020 12:00:00 AM EST [facility] ([facility]) OFFICE OUTPATIENT VISIT 15 MINUTES 09/12 12:00:00 AM EST - 09/12/2020 12:00:00 AM EST [facility] ([facility]) OFFICE OUTPATIENT VISIT 15 MINUTES 09/12/2020 12:00:00 AM EST [facility] ([facility]) THERAPEUTIC PROPHYLACTIC/DX INJECTION SUBQ/IM 09/12/2020 12:00:00 AM EST - 09/12/2020 12:00:00 AM EST [facility] ([facility]) THERAPEUTIC PROPHYLACTIC/DX INJECTION SUBQ/IM 09/12/20 12:00:00 AM EST [facility] ([facility]) OFFICE OUTPATIENT VISIT 15 MINUTES 08/10 12:00:00 AM EDT - 08/10/2020 12:00:00 AM EDT [facility] ([facility]) OFFICE OUTPATIENT VISIT 15 MINUTES 08/10/2020 12:00:00 AM EDT [facility] ([facility]) Results ID Date Data Source [id number] 07/19/2021 10:40:00 AM EDT [facility] Name Value Range Interpretation Code Description Data Michelle rce(s) Supporting Document(s) SARS coronavirus 2 RNA [Presence] in Res piratory specimen by OMI with probe detection NEGATIVE [facility] This lab was ordered by [facility] a nd reported by [facility]. ID Date Data Source [id number] 07/19/2021 09:50:00 AM EDT [facility] Name Value Range Interpretation Code Description Data Michelle rce(s) Supporting Document(s) SARS COVID ANTIGEN NEGATIVE [facility] a nd reported by [facility]. ID Date Data Source [id number] 06/04/2021 08:17:00 PM EDT [facility] Name Value Range Interpretation Code Description Data Michelle rce(s) Supporting Document(s) SARS coronavirus 2 RNA [Presence] in Res piratory specimen by OMI with probe detection NEGATIVE [facility] This lab was ordered by [facility] a nd reported by [facility]. ID Date Data Source [id number] 05/01/2021 01:57:00 PM EDT [facility] Name Value Range Interpretation Code Description Data Michelle rce(s) Supporting Document(s) SARS coronavirus 2 RNA [Presence] in Res piratory specimen by OMI with probe detection NEGATIVE [facility] This lab was ordered by [facility] a nd reported by [facility]. ID Date Data Source [id number] 04/19/2021 06:29:00 AM EDT [facility] Name Value Range Interpretation Code Description Data Michelle rce(s) Supporting Document(s) SARS coronavirus 2 RNA [Presence] in Res piratory specimen by OMI with probe detection NEGATIVE [facility] This lab was ordered by [facility] a nd reported by [facility]. ID Date Data Source [id number] 04/17/2021 05:50:00 PM EDT [facility] Name Value Range Interpretation Code Description Data Michelle rce(s) Supporting Document(s) SARS-CoV-2 (COVID-19) RNA [Presence] in Respiratory specimen by OMI with probe detection Not Detected [facility] This lab was ordered by [facility] and reported by [employer]. ID Date Data Source [id number] 02/28/2021 04:53:00 [place] [address] HEALTH INFORMATION MANAGEMENT History and Physical Report : [id number] Signed Patient: Gabo Parra Acct:[id number] Unit: M [id number] : 1980 Loc: [facility] Room/Bed: 820 Age/Sex: 40 / M ADM [...] charges for this visit?: Yes Inpt Consult [id number] Cons Level 1: Yes Signed By:Rambo Summers <<Signature on File>> Signed Date/Time: 02/28/211657 Co-Signer: Leonel Hubbard MD Co-Signed Date/Time: 02/28/21 1725 Initializing User: Rambo Summers NP 02/28/211652 52 52 Name Value Range Interpretation Code Description Data Michelle rce(s) Supporting Document(s) ID Date Data Source [id number] 02/28/2021 10:45:00 AM [facility] [address] [place] [id number] HEALTH INFORMATION MANAGEMENT [facility] Psychosocial Summary : [id number] Signed Patient: Gabo Parra Acct:[id number] Unit: M [id number] : 1980 Loc: [facility] Room/Bed: 820-B Age/Sex: 40 / M ADM Date: 02/27/21 cc: General/History - Presenting Problem Presenting Problem: Social Summary/Discharge plan Presenting Problem Gabo is a40 yo AAM, extensive psych hx, also problems with substance abuse admitted on a transfer from [facility] ER brought in there by his CW as pt was feeling depressed, suicidal, also hallucinating and after abusing drugs History. kaden was partially complaint with meds. Not able to name his psychiatrist in [place], not able to name the therapist. Gives h/o 5 to 6 inpt psych txs, last one few months ago, "I can't remember the place, they send me from [facility]. " Also, h'o inpt psych tx at [facility]. H/o self harm time, tried to [...] Person?: No Are you part of any church/spirtual community?: Yes (Congregational ) - Current Living/Relationship History Current Living Arrangement: House Who Do You Live With?: Mother. OK to Return Home: Yes Weapons in household: No Currently in a Relationship?: No Ever Been ?: No Any Children?: 2 - Family History Where Were You Born/Raised?: [place] Who Was in Home?: Mother, Father How [...] Reducing Risk: Complies with Tx/Meds, Future Oriented, Nondenominational Beliefs Mental Status Treatment - Mental Status Mental Status: alert, oriented x 3 Was Mini-Mental Status Exam Completed?: Yes - Recommendations Recommendations for Treatment: Continue with current outpatient mental health provider. Discharge plan: Client will be discharged home upon stability. Signed By:Zac Dunn <<Signature on File>> Signed Date/Time: 03/15/21 7530 Co-Signer: Co-Signed Date/Time: Initializing User: Zac CAUSEY 1045 [id number] 1045 Name Value Range Interpretation Code Description Data Michelle rce(s) Supporting Document(s) ID Date Data Source [id number] 02/27/2021 04:28:00 PM EDT [facility] Name Value Range Interpretation Code Description Data Michelle rce(s) Supporting Document(s) SARS coronavirus 2 RNA [Presence] in Res piratory specimen by OMI with probe detection NEGATIVE [facility] This lab was ordered by [facility] a nd reported by [facility]. ID Date Data Source [id number] 01/23/2021 01:03:00 AM EDT [facility] Name Value Range Interpretation Code Description Data Michelle rce(s) Supporting Document(s) SARS coronavirus 2 RNA [Presence] in Res piratory specimen by OMI with probe detection NEGATIVE [facility] This lab was ordered by [facility] a nd reported by [facility]. ID Date Data Source [id number] 10/17/2020 12:19:00 AM EST [facility] Name Value Range Interpretation Code Description Data Michelle rce(s) Supporting Document(s) SARS coronavirus 2 RNA [Presence] in Res piratory specimen by OMI with probe detection [facility] This lab was ordered by [facility] a nd reported by [facility]. Procedure Social History Code Duration Value Status Description Data Source(s ) Smoking 09/02/2021 12:00:00 AM EDT Unknown if ever smoked comp leted Unknown if ever smoked [facility] ([facility]) Smoking 07/29/2021 12:00:00 AM EDT Unknown if ever smoked comp leted Unknown if ever smoked [facility] ([facility]) Smoking 06/24/2021 12:00:00 AM EDT Unknown if ever smoked comp leted Unknown if ever smoked [facility] ([facility]) Smoking 05/27/2021 12:00:00 AM EDT Unknown if ever smoked comp leted Unknown if ever smoked [facility] ([facility]) Smoking 05/13/2021 12:00:00 AM EDT Unknown if ever smoked comp leted Unknown if ever smoked [facility] ([facility]) Smoking 04/04/2021 12:00:00 AM EDT Unknown if ever smoked comp leted Unknown if ever smoked [facility] ([facility]) Smoking 04/03/2021 12:00:00 AM EDT Unknown if ever smoked comp leted Unknown if ever smoked [facility] ([facility]) Smoking 03/27/2021 12:00:00 AM EDT Unknown if ever smoked comp leted Unknown if ever smoked [facility] ([facility]) Smoking 03/19/2021 12:00:00 AM EDT Unknown if ever smoked comp leted Unknown if ever smoked [facility] ([facility]) Smoking 02/12/2021 12:00:00 AM EDT Unknown if ever smoked comp leted Unknown if ever smoked [facility] ([facility]) Smoking 02/07/2021 12:00:00 AM EDT Unknown if ever smoked comp leted Unknown if ever smoked [facility] ([facility]) Smoking 02/01/2021 12:00:00 AM EDT Unknown if ever smoked comp leted Unknown if ever smoked [facility] ([facility]) Smoking 01/23/2021 12:00:00 AM EDT Unknown if ever smoked comp leted Unknown if ever smoked [facility] ([facility]) Smoking 01/18/2021 12:00:00 AM EDT Unknown if ever smoked comp leted Unknown if ever smoked [facility] ([facility]) Smoking 01/17/2021 12:00:00 AM EDT Unknown if ever smoked comp leted Unknown if ever smoked [facility] ([facility]) Smoking 01/01/2021 12:00:00 AM EST Unknown if ever smoked comp leted Unknown if ever smoked [facility] ([facility]) Smoking 12/28/2020 12:00:00 AM EST Unknown if ever smoked comp leted Unknown if ever smoked [facility] ([facility]) Smoking 12/20/2020 12:00:00 AM EST Unknown if ever smoked comp leted Unknown if ever smoked [facility] ([facility]) Smoking 12/06/2020 12:00:00 AM EST Unknown if ever smoked comp leted Unknown if ever smoked [facility] ([facility]) Smoking 11/15/2020 12:00:00 AM EST Unknown if ever smoked comp leted Unknown if ever smoked [facility] ([facility]) Smoking 10/18/2020 12:00:00 AM EST Unknown if ever smoked comp leted Unknown if ever smoked [facility] ([facility]) Smoking 10/15/2020 12:00:00 AM EST Unknown if ever smoked comp leted Unknown if ever smoked [facility] ([facility]) Smoking 10/04/2020 12:00:00 AM EST Unknown if ever smoked comp leted Unknown if ever smoked [facility] ([facility]) Smoking 09/12/2020 12:00:00 AM EST Unknown if ever smoked comp leted Unknown if ever smoked [facility] ([facility]) Smoking 08/10/2020 12:00:00 AM EDT Unknown if ever smoked comp leted Unknown if ever smoked [facility] ([facility]) Vital Signs ID Date Data Source UNK Name Value Range Interpretation Code Description Data Source(s) Body height 0.00 in Normal (applies to non-numeric resu lts) 0.00 in [facility] ([facility]) Body weight Measured 0.00 lbs Normal (applies to n on-numeric results) 0.00 lbs [facility] ([facility]) Body mass index (BMI) [Ratio] 0.00 kg/m2 No rmal (applies to non-numeric results) 0.00 kg/m2 [facility] ([facility]) Systolic blood pressure 0 mm[Hg] Normal (applies t o non-numeric results) 0 mm[facility]Hg] [facility] Diastolic blood pressure 0 mm[Hg] Normal (applies to non-numeric results) 0 mm[Hg] [facility] Body height 0.00 in Normal (applies to non-numeric resu lts) 0.00 in [facility] ([facility]) Body weight Measured 0.00 lbs Normal (applies to n on-numeric results) 0.00 lbs [facility] ([facility]) Body mass index (BMI) [Ratio] 0.00 kg/m2 No rmal (applies to non-numeric results) 0.00 kg/m2 [facility] ([facility]) Systolic blood pressure 0 mm[Hg] Normal (applies t o non-numeric results) 0 mm[Hg] [facility] ([facility]) Diastolic blood pressure 0 mm[Hg] Normal (applies to non-numeric results) 0 mm[Hg] [facility] ([facility]) Body height 0.00 in Normal (applies to non-numeric resu lts) 0.00 in [facility] ([facility]) Body weight Measured 0.00 lbs Normal (applies to n on-numeric results) 0.00 lbs [facility] ([facility]) Body mass index (BMI) [Ratio] 0.00 kg/m2 No rmal (applies to non-numeric results) 0.00 kg/m2 [facility] ([facility]) Systolic blood pressure 0 mm[Hg] Normal (applies t o non-numeric results) 0 mm[Hg] [facility] ([facility]) Diastolic blood pressure 0 mm[Hg] Normal (applies to non-numeric results) 0 mm[Hg] [facility] ([facility]) Body height 0.00 in Normal (applies to non-numeric resu lts) 0.00 in [facility] ([facility]) Body weight Measured 0.00 lbs Normal (applies to n on-numeric results) 0.00 lbs [facility] ([facility]) Body mass index (BMI) [Ratio] 0.00 kg/m2 No rmal (applies to non-numeric results) 0.00 kg/m2 [facility] ([facility]) Systolic blood pressure 0 mm[Hg] Normal (applies t o non-numeric results) 0 mm[Hg] [facility] ([facility]) Diastolic blood pressure 0 mm[Hg] Normal (applies to non-numeric results) 0 mm[Hg] [facility] ([facility]) ID Date Data Source [id number] 09/22/2020 02:27:59 PM [facility] Name Value Range Interpretation Code Description Data Source(s) TRANSFER FROM [facility]
[2021-09-12 06:38] LABS: ACETAMINOPHEN LEVEL < 2.0 UG/ML (10.0-30.0); ALBUMIN 3.7 GM/DL (3.2-5.2); ALT/SGPT 211 U/L (12-78); BILIRUBIN,DIRECT 0.2 MG/DL (0.0-0.2); BILIRUBIN,TOTAL 0.6 MG/DL (0.2-1.0); BLOOD UREA NITROGEN 17 MG/DL (7-18); CALCIUM LEVEL 9.1 MG/DL (8.5-10.1); CARBON DIOXIDE LEVEL 28 MEQ/L (21-32); CHLORIDE LEVEL 108 MEQ/L (98-107); CREATININE FOR GFR 0.92 MG/DL (0.70-1.30); ETHYL ALCOHOL (ETHANOL) < 0.003 % (0.000-0.010); GLOMERULAR FILTRATION RATE > 60.0 (>60); GLUCOSE, FASTING 77 MG/DL (70-100); POTASSIUM SERUM 3.9 MEQ/L (3.5-5.1); SALICYLATE LEVEL < 1.7 MG/DL (5.0-30.0); SODIUM LEVEL 140 MEQ/L (136-145); THYROID STIMULATING HORMONE 0.686 uIU/ML (0.358-3.740); TOTAL PROTEIN 7.5 GM/DL (6.4-8.2)
[2021-09-12 07:27] LABS: AMPHETAMINES LEVEL URINE POSITIVE (NEGATIVE); BARBITURATES URINE NEGATIVE (NEGATIVE); BENZODIAZEPINES URINE NEGATIVE (NEGATIVE); CANNABINOIDS URINE POSITIVE (NEGATIVE); COCAINE METABOLITE URINE NEGATIVE (NEGATIVE); METHADONE URINE NEGATIVE (NEGATIVE); OPIATES URINE NEGATIVE (NEGATIVE); PHENCYCLIDINE URINE NEGATIVE (NEGATIVE)
[2021-09-12 16:21] VITALS: BP 129/74
--- NOTE | 2021-09-13 08:16 | MHIPNPDOC ---
[facility] Progress Note Progress Note DATE OF SERVICE: 09/13/21 Late entry, consistent with previous presentations patient presented by PSA, does not meet criteria for involuntary admission. Patient continues to present t o the ED every couple days for last 2-3 months, usually in context of drug use states he is suicidal is allowed hours to detox, later after detoxed patient denies SI, intent or plan, HI, intent or plan, denies psychotic symptoms and wants to return home to mother's home. He is positive for cannabis and amphetamines despite education for worsening underlying primary psychotic disord er, compliant with invega sustenna CASE. Denies weapons. Feels safe to return home. Vital Signs Vital Signs Date Time Temp Pulse Resp B/P (MAP) Pulse Ox O2 Delivery O2 Flow Rate FiO2 09/12/21 16:21 98.3 78 18 129/74 (92) 98 Room Air Allergies Coded Allergies: PERFUMES (Verified Allergy, Unknown, 09/22/20) JONO MATUTE MD Sep 13, 2021 08:16
== END 2021-09-12 16:21 | disposition home or self-care (01) ==
LOC: M ED 04:57
DX: F20.9 Schizophrenia, unspecified (principal); F15.10 Other stimulant abuse, uncomplicated; F12.10 Cannabis abuse, uncomplicated; Z79.899 Other long term (current) drug therapy

== ENCOUNTER 2021-09-26 04:29 | Emergency (ER) | payer OTHER ==
[~2021-09-26] VITALS: Ht 175.3 cm; Wt 72.4 kg
[~2021-09-26 04:29] MED LIST changes: -HALO5TA; -HALO5TA PO; +HALO5TAB33; +HALO5TAB33 PO; +INVE234I SQ
[2021-09-26 04:30] VITALS: BP 146/78
[2021-09-26 06:36] LABS: HEMATOCRIT 43.2 % (42.0-52.0); HEMOGLOBIN 13.9 g/dl (13.5-17.5); MEAN CORPUSCULAR HEMOGLOBIN 29.5 pg (27.0-33.0); MEAN CORPUSCULAR HGB CONC 32.2 g/dl (32.0-36.5); MEAN CORPUSCULAR VOLUME 91.7 fl (80.0-96.0); PLATELET COUNT, AUTOMATED 274 10^3/uL (150-450); RED BLOOD COUNT 4.71 10^6/uL (4.30-6.10); WHITE BLOOD COUNT 9.7 10^3/uL (4.0-10.0)
[2021-09-26 07:02] LABS: ACETAMINOPHEN LEVEL < 2.0 UG/ML (10.0-30.0); ALBUMIN 3.5 GM/DL (3.2-5.2); ALT/SGPT 173 U/L (12-78); BILIRUBIN,DIRECT 0.2 MG/DL (0.0-0.2); BILIRUBIN,TOTAL 0.6 MG/DL (0.2-1.0); BLOOD UREA NITROGEN 13 MG/DL (7-18); CALCIUM LEVEL 8.7 MG/DL (8.5-10.1); CARBON DIOXIDE LEVEL 28 MEQ/L (21-32); CHLORIDE LEVEL 106 MEQ/L (98-107); ETHYL ALCOHOL (ETHANOL) < 0.003 % (0.000-0.010); GLOMERULAR FILTRATION RATE > 60.0 (>60); GLUCOSE, FASTING 74 MG/DL (70-100); POTASSIUM SERUM 3.8 MEQ/L (3.5-5.1); SALICYLATE LEVEL < 1.7 MG/DL (5.0-30.0); SODIUM LEVEL 139 MEQ/L (136-145); TOTAL PROTEIN 7.2 GM/DL (6.4-8.2)
[2021-09-26 12:15] LABS: AMPHETAMINES LEVEL URINE POSITIVE (NEGATIVE); BARBITURATES URINE NEGATIVE (NEGATIVE); BENZODIAZEPINES URINE NEGATIVE (NEGATIVE); CANNABINOIDS URINE POSITIVE (NEGATIVE); COCAINE METABOLITE URINE NEGATIVE (NEGATIVE); METHADONE URINE NEGATIVE (NEGATIVE); OPIATES URINE NEGATIVE (NEGATIVE); PHENCYCLIDINE URINE NEGATIVE (NEGATIVE)
[2021-11-08] MEDS ORDERED: PALI1TAB2 PO (07:44)
[2021-11-08] MEDS ORDERED: NICO21PAT TD (07:44)
[2021-12-21] MEDS ORDERED: INVE234I SC (11:33)
[2021-12-25] MEDS ORDERED: BENZ-52 PO (12:21)
[2021-12-25] MEDS ORDERED: OLAN1TAB16 PO (12:21)
[2021-12-25] MEDS ORDERED: PRAZ1CAP PO (12:21)
[2021-12-25] MEDS ORDERED: MED NOTE (12:22)
== END 2021-09-26 14:37 | disposition home or self-care (01) ==
LOC: M ED 04:29
DX: F20.9 Schizophrenia, unspecified (principal); Z79.899 Other long term (current) drug therapy; Z91.89 Other specified personal risk factors, not elsewhere classified

== ENCOUNTER 2021-09-29 08:30 | Emergency (ER) | payer OTHER ==
[~2021-09-29] VITALS: Ht 175.3 cm; Wt 73.6 kg
[2021-09-29 09:29] LABS: HEMATOCRIT 45.1 % (42.0-52.0); HEMOGLOBIN 14.9 g/dl (13.5-17.5); MEAN CORPUSCULAR HEMOGLOBIN 29.9 pg (27.0-33.0); MEAN CORPUSCULAR VOLUME 90.4 fl (80.0-96.0); PLATELET COUNT, AUTOMATED 299 10^3/uL (150-450); RED BLOOD COUNT 4.99 10^6/uL (4.30-6.10); WHITE BLOOD COUNT 7.5 10^3/uL (4.0-10.0)
[2021-09-29 10:17] LABS: RSV AMPLIFICATION NEGATIVE (NEGATIVE)
[2021-09-29 10:24] LABS: ACETAMINOPHEN LEVEL < 2.0 UG/ML (10.0-30.0); ALBUMIN 3.7 GM/DL (3.2-5.2); ALT/SGPT 180 U/L (12-78); BILIRUBIN,DIRECT 0.2 MG/DL (0.0-0.2); BILIRUBIN,TOTAL 0.6 MG/DL (0.2-1.0); BLOOD UREA NITROGEN 11 MG/DL (7-18); CALCIUM LEVEL 9.1 MG/DL (8.5-10.1); CARBON DIOXIDE LEVEL 27 MEQ/L (21-32); CHLORIDE LEVEL 109 MEQ/L (98-107); CREATININE FOR GFR 0.98 MG/DL (0.70-1.30); ETHYL ALCOHOL (ETHANOL) 0.041 % (0.000-0.010); GLOMERULAR FILTRATION RATE > 60.0 (>60); GLUCOSE, FASTING 76 MG/DL (70-100); POTASSIUM SERUM 4.5 MEQ/L (3.5-5.1); SALICYLATE LEVEL 1.9 MG/DL (5.0-30.0); SODIUM LEVEL 143 MEQ/L (136-145); THYROID STIMULATING HORMONE 0.907 uIU/ML (0.358-3.740); TOTAL PROTEIN 7.7 GM/DL (6.4-8.2)
[2021-09-29 11:22] LABS: AMPHETAMINES LEVEL URINE POSITIVE (NEGATIVE); BARBITURATES URINE NEGATIVE (NEGATIVE); BENZODIAZEPINES URINE NEGATIVE (NEGATIVE); CANNABINOIDS URINE POSITIVE (NEGATIVE); COCAINE METABOLITE URINE NEGATIVE (NEGATIVE); METHADONE URINE NEGATIVE (NEGATIVE); OPIATES URINE NEGATIVE (NEGATIVE); PHENCYCLIDINE URINE NEGATIVE (NEGATIVE)
[2021-09-29 16:14] VITALS: BP 117/78
[2021-09-30] MEDS ORDERED: AMOX500C PO (09:59)
[2021-11-08] MEDS ORDERED: NICO21PAT TD (07:44)
[2021-11-08] MEDS ORDERED: PALI1TAB2 PO (07:44)
[2021-12-21] MEDS ORDERED: INVE234I SC (11:33)
[2021-12-25] MEDS ORDERED: PRAZ1CAP PO (12:21)
[2021-12-25] MEDS ORDERED: BENZ-52 PO (12:21)
[2021-12-25] MEDS ORDERED: OLAN1TAB16 PO (12:21)
[2021-12-25] MEDS ORDERED: MED NOTE (12:22)
== END 2021-09-29 16:19 | disposition home or self-care (01) ==
LOC: M ED 08:30
DX: F20.0 Paranoid schizophrenia (principal); F12.10 Cannabis abuse, uncomplicated; F15.10 Other stimulant abuse, uncomplicated; R45.851 Suicidal ideations; F32.89 Other specified depressive episodes; Z91.048 Other nonmedicinal substance allergy status

== ENCOUNTER 2021-09-30 06:43 | Emergency (ER) | payer OTHER ==
[~2021-09-30] VITALS: Ht 175.3 cm; Wt 74.7 kg
[2021-09-30 09:09] LABS: RSV AMPLIFICATION NEGATIVE (NEGATIVE)
[2021-09-30] MEDS ORDERED: AMOX500C PO (09:59)
[2021-09-30 10:25] VITALS: BP 120/86
[2021-11-08] MEDS ORDERED: NICO21PAT TD (07:44)
[2021-11-08] MEDS ORDERED: PALI1TAB2 PO (07:44)
[2021-12-21] MEDS ORDERED: INVE234I SC (11:33)
[2021-12-25] MEDS ORDERED: OLAN1TAB16 PO (12:21)
[2021-12-25] MEDS ORDERED: PRAZ1CAP PO (12:21)
[2021-12-25] MEDS ORDERED: BENZ-52 PO (12:21)
[2021-12-25] MEDS ORDERED: MED NOTE (12:22)
== END 2021-09-30 11:05 | disposition home or self-care (01) ==
LOC: M ED 06:43
DX: J02.0 Streptococcal pharyngitis (principal); L29.9 Pruritus, unspecified; L85.3 Xerosis cutis; F20.9 Schizophrenia, unspecified; F17.200 Nicotine dependence, unspecified, uncomplicated; Z79.899 Other long term (current) drug therapy

== ENCOUNTER 2021-10-02 04:49 | Emergency (ER) | payer OTHER ==
[~2021-10-02] VITALS: Ht 175.3 cm; Wt 72.7 kg
[~2021-10-02 04:49] MED LIST changes: +AMOX500C PO
[2021-10-02] MEDS ORDERED: BENZ-52 PO (05:15)
[2021-10-02] MEDS ORDERED: PRAZ1CAP PO (05:15)
[2021-10-02] MEDS ORDERED: OLAN1TAB16 PO (05:15)
[2021-10-02 05:26] LABS: AMPHETAMINES LEVEL URINE NEGATIVE (NEGATIVE); BARBITURATES URINE NEGATIVE (NEGATIVE); BENZODIAZEPINES URINE NEGATIVE (NEGATIVE); CANNABINOIDS URINE NEGATIVE (NEGATIVE); COCAINE METABOLITE URINE NEGATIVE (NEGATIVE); METHADONE URINE NEGATIVE (NEGATIVE); OPIATES URINE NEGATIVE (NEGATIVE); PHENCYCLIDINE URINE NEGATIVE (NEGATIVE)
[2021-10-02 05:29] LABS: HEMATOCRIT 42.2 % (42.0-52.0); HEMOGLOBIN 13.8 g/dl (13.5-17.5); MEAN CORPUSCULAR HEMOGLOBIN 29.9 pg (27.0-33.0); MEAN CORPUSCULAR HGB CONC 32.7 g/dl (32.0-36.5); MEAN CORPUSCULAR VOLUME 91.5 fl (80.0-96.0); PLATELET COUNT, AUTOMATED 267 10^3/uL (150-450); RED BLOOD COUNT 4.61 10^6/uL (4.30-6.10); WHITE BLOOD COUNT 9.5 10^3/uL (4.0-10.0)
[2021-10-02 05:51] LABS: ACETAMINOPHEN LEVEL < 2.0 UG/ML (10.0-30.0); ALBUMIN 3.2 GM/DL (3.2-5.2); ALT/SGPT 233 U/L (12-78); BILIRUBIN,DIRECT < 0.1 MG/DL (0.0-0.2); BILIRUBIN,TOTAL 0.3 MG/DL (0.2-1.0); BLOOD UREA NITROGEN 15 MG/DL (7-18); CALCIUM LEVEL 8.5 MG/DL (8.5-10.1); CARBON DIOXIDE LEVEL 26 MEQ/L (21-32); CHLORIDE LEVEL 111 MEQ/L (98-107); CREATININE FOR GFR 0.84 MG/DL (0.70-1.30); ETHYL ALCOHOL (ETHANOL) 0.003 % (0.000-0.010); GLOMERULAR FILTRATION RATE > 60.0 (>60); GLUCOSE, FASTING 110 MG/DL (70-100); POTASSIUM SERUM 4.2 MEQ/L (3.5-5.1); SALICYLATE LEVEL 2.1 MG/DL (5.0-30.0); SODIUM LEVEL 142 MEQ/L (136-145); THYROID STIMULATING HORMONE 0.907 uIU/ML (0.358-3.740); TOTAL PROTEIN 6.7 GM/DL (6.4-8.2)
[2021-10-02 06:02] LABS: RSV AMPLIFICATION NEGATIVE (NEGATIVE)
[2021-10-02 15:48] VITALS: BP 114/66
[2021-11-08] MEDS ORDERED: NICO21PAT TD (07:44)
[2021-11-08] MEDS ORDERED: PALI1TAB2 PO (07:44)
[2021-12-21] MEDS ORDERED: INVE234I SC (11:33)
[2021-12-25] MEDS ORDERED: BENZ-52 PO (12:21)
[2021-12-25] MEDS ORDERED: OLAN1TAB16 PO (12:21)
[2021-12-25] MEDS ORDERED: PRAZ1CAP PO (12:21)
[2021-12-25] MEDS ORDERED: MED NOTE (12:22)
== END 2021-10-02 15:50 | disposition home or self-care (01) ==
LOC: M ED 04:49
DX: F20.9 Schizophrenia, unspecified (principal)

== ENCOUNTER 2021-10-17 02:47 | Emergency (ER) | payer OTHER ==
[~2021-10-17] VITALS: Ht 175.3 cm; Wt 72.7 kg
[~2021-10-17 02:47] MED LIST changes: +PRAZ1CAP PO
[2021-10-17 03:41] LABS: HEMATOCRIT 41.7 % (42.0-52.0); HEMOGLOBIN 13.8 g/dl (13.5-17.5); MEAN CORPUSCULAR HEMOGLOBIN 29.6 pg (27.0-33.0); MEAN CORPUSCULAR HGB CONC 33.1 g/dl (32.0-36.5); MEAN CORPUSCULAR VOLUME 89.5 fl (80.0-96.0); PLATELET COUNT, AUTOMATED 277 10^3/uL (150-450); RED BLOOD COUNT 4.66 10^6/uL (4.30-6.10); WHITE BLOOD COUNT 10.2 10^3/uL (4.0-10.0)
[2021-10-17 04:19] LABS: BLOOD UREA NITROGEN < 1 MG/DL (7-18); CREATININE FOR GFR 0.81 MG/DL (0.70-1.30); GLUCOSE, FASTING 85 MG/DL (70-100)
[2021-10-17 04:20] LABS: ACETAMINOPHEN LEVEL < 2.0 UG/ML (10.0-30.0); ALBUMIN 3.2 GM/DL (3.2-5.2); ALT/SGPT 181 U/L (12-78); BILIRUBIN,DIRECT 0.2 MG/DL (0.0-0.2); BILIRUBIN,TOTAL 0.5 MG/DL (0.2-1.0); CALCIUM LEVEL 8.8 MG/DL (8.5-10.1); CARBON DIOXIDE LEVEL 24 MEQ/L (21-32); CHLORIDE LEVEL 109 MEQ/L (98-107); ETHYL ALCOHOL (ETHANOL) < 0.003 % (0.000-0.010); GLOMERULAR FILTRATION RATE > 60.0 (>60); POTASSIUM SERUM 4.2 MEQ/L (3.5-5.1); SALICYLATE LEVEL < 1.7 MG/DL (5.0-30.0); SODIUM LEVEL 140 MEQ/L (136-145); TOTAL PROTEIN 6.9 GM/DL (6.4-8.2)
[2021-10-17 06:23] LABS: AMPHETAMINES LEVEL URINE NEGATIVE (NEGATIVE); BARBITURATES URINE NEGATIVE (NEGATIVE); BENZODIAZEPINES URINE NEGATIVE (NEGATIVE); CANNABINOIDS URINE NEGATIVE (NEGATIVE); COCAINE METABOLITE URINE NEGATIVE (NEGATIVE); METHADONE URINE NEGATIVE (NEGATIVE); OPIATES URINE NEGATIVE (NEGATIVE); PHENCYCLIDINE URINE NEGATIVE (NEGATIVE)
[2021-10-17 06:37] LABS: RSV AMPLIFICATION NEGATIVE (NEGATIVE)
[2021-10-17] MEDS ORDERED: HOME MED LIST COMPLETE! XX SCH (08:35)
[2021-10-17 12:24] VITALS: BP 122/79
[2021-11-08] MEDS ORDERED: NICO21PAT TD (07:44)
[2021-11-08] MEDS ORDERED: PALI1TAB2 PO (07:44)
[2021-12-21] MEDS ORDERED: INVE234I SC (11:33)
[2021-12-25] MEDS ORDERED: PRAZ1CAP PO (12:21)
[2021-12-25] MEDS ORDERED: BENZ-52 PO (12:21)
[2021-12-25] MEDS ORDERED: OLAN1TAB16 PO (12:21)
[2021-12-25] MEDS ORDERED: MED NOTE (12:22)
== END 2021-10-17 14:00 | disposition home or self-care (01) ==
LOC: M ED 02:47
DX: F20.9 Schizophrenia, unspecified (principal); Z79.899 Other long term (current) drug therapy

== ENCOUNTER 2021-10-19 13:44 | Emergency (ER) | payer OTHER ==
[~2021-10-19] VITALS: Ht 175.3 cm; Wt 73.3 kg
[2021-10-19 14:45] LABS: HEMATOCRIT 44.1 % (42.0-52.0); HEMOGLOBIN 14.5 g/dl (13.5-17.5); MEAN CORPUSCULAR HEMOGLOBIN 29.4 pg (27.0-33.0); MEAN CORPUSCULAR HGB CONC 32.9 g/dl (32.0-36.5); MEAN CORPUSCULAR VOLUME 89.3 fl (80.0-96.0); PLATELET COUNT, AUTOMATED 284 10^3/uL (150-450); RED BLOOD COUNT 4.94 10^6/uL (4.30-6.10)
[2021-10-19 15:16] LABS: ACETAMINOPHEN LEVEL < 2.0 UG/ML (10.0-30.0); ALBUMIN 3.9 GM/DL (3.2-5.2); ALT/SGPT 265 U/L (12-78); BILIRUBIN,DIRECT 0.3 MG/DL (0.0-0.2); BLOOD UREA NITROGEN 11 MG/DL (7-18); CALCIUM LEVEL 9.5 MG/DL (8.5-10.1); CARBON DIOXIDE LEVEL 27 MEQ/L (21-32); CHLORIDE LEVEL 104 MEQ/L (98-107); CREATININE FOR GFR 1.01 MG/DL (0.70-1.30); ETHYL ALCOHOL (ETHANOL) < 0.003 % (0.000-0.010); GLOMERULAR FILTRATION RATE > 60.0 (>60); GLUCOSE, FASTING 83 MG/DL (70-100); POTASSIUM SERUM 3.8 MEQ/L (3.5-5.1); SALICYLATE LEVEL < 1.7 MG/DL (5.0-30.0); SODIUM LEVEL 141 MEQ/L (136-145); THYROID STIMULATING HORMONE 0.533 uIU/ML (0.358-3.740); TOTAL PROTEIN 7.7 GM/DL (6.4-8.2)
[2021-10-19 15:20] LABS: AMPHETAMINES LEVEL URINE POSITIVE (NEGATIVE); BARBITURATES URINE NEGATIVE (NEGATIVE); BENZODIAZEPINES URINE NEGATIVE (NEGATIVE); CANNABINOIDS URINE POSITIVE (NEGATIVE); COCAINE METABOLITE URINE NEGATIVE (NEGATIVE); METHADONE URINE NEGATIVE (NEGATIVE); OPIATES URINE NEGATIVE (NEGATIVE); PHENCYCLIDINE URINE NEGATIVE (NEGATIVE)
[2021-10-19 21:11] VITALS: BP 112/75
[2021-11-08] MEDS ORDERED: NICO21PAT TD (07:44)
[2021-11-08] MEDS ORDERED: PALI1TAB2 PO (07:44)
[2021-12-21] MEDS ORDERED: INVE234I SC (11:33)
[2021-12-25] MEDS ORDERED: PRAZ1CAP PO (12:21)
[2021-12-25] MEDS ORDERED: OLAN1TAB16 PO (12:21)
[2021-12-25] MEDS ORDERED: BENZ-52 PO (12:21)
[2021-12-25] MEDS ORDERED: MED NOTE (12:22)
== END 2021-10-19 21:13 | disposition home or self-care (01) ==
LOC: M ED 13:44
DX: F43.0 Acute stress reaction (principal); F20.9 Schizophrenia, unspecified; I10 Essential (primary) hypertension; J45.909 Unspecified asthma, uncomplicated; Z79.899 Other long term (current) drug therapy

== ENCOUNTER 2021-10-26 04:04 | Emergency (ER) | payer OTHER ==
[~2021-10-26] VITALS: Ht 175.3 cm; Wt 73.6 kg
[2021-10-26 04:04] VITALS: BP 120/70
[2021-10-26 04:54] LABS: HEMATOCRIT 40.6 % (42.0-52.0); HEMOGLOBIN 13.5 g/dl (13.5-17.5); MEAN CORPUSCULAR HEMOGLOBIN 29.6 pg (27.0-33.0); MEAN CORPUSCULAR HGB CONC 33.3 g/dl (32.0-36.5); PLATELET COUNT, AUTOMATED 277 10^3/uL (150-450); RED BLOOD COUNT 4.56 10^6/uL (4.30-6.10)
[2021-10-26 05:13] LABS: ACETAMINOPHEN LEVEL < 2.0 UG/ML (10.0-30.0); ALBUMIN 3.6 GM/DL (3.2-5.2); ALT/SGPT 234 U/L (12-78); BILIRUBIN,DIRECT 0.2 MG/DL (0.0-0.2); BILIRUBIN,TOTAL 0.6 MG/DL (0.2-1.0); BLOOD UREA NITROGEN 13 MG/DL (7-18); CALCIUM LEVEL 8.8 MG/DL (8.5-10.1); CARBON DIOXIDE LEVEL 26 MEQ/L (21-32); CHLORIDE LEVEL 107 MEQ/L (98-107); CREATININE FOR GFR 0.86 MG/DL (0.70-1.30); ETHYL ALCOHOL (ETHANOL) < 0.003 % (0.000-0.010); GLOMERULAR FILTRATION RATE > 60.0 (>60); GLUCOSE, FASTING 105 MG/DL (70-100); POTASSIUM SERUM 3.7 MEQ/L (3.5-5.1); SALICYLATE LEVEL < 1.7 MG/DL (5.0-30.0); SODIUM LEVEL 140 MEQ/L (136-145); TOTAL PROTEIN 7.1 GM/DL (6.4-8.2)
[2021-10-26 05:26] LABS: RSV AMPLIFICATION NEGATIVE (NEGATIVE)
[2021-10-26 07:32] LABS: AMPHETAMINES LEVEL URINE NEGATIVE (NEGATIVE); BARBITURATES URINE NEGATIVE (NEGATIVE); BENZODIAZEPINES URINE NEGATIVE (NEGATIVE); CANNABINOIDS URINE POSITIVE (NEGATIVE); COCAINE METABOLITE URINE NEGATIVE (NEGATIVE); METHADONE URINE NEGATIVE (NEGATIVE); OPIATES URINE NEGATIVE (NEGATIVE); PHENCYCLIDINE URINE NEGATIVE (NEGATIVE)
[2021-11-08] MEDS ORDERED: NICO21PAT TD (07:44)
[2021-11-08] MEDS ORDERED: PALI1TAB2 PO (07:44)
[2021-12-21] MEDS ORDERED: INVE234I SC (11:33)
[2021-12-25] MEDS ORDERED: OLAN1TAB16 PO (12:21)
[2021-12-25] MEDS ORDERED: PRAZ1CAP PO (12:21)
[2021-12-25] MEDS ORDERED: BENZ-52 PO (12:21)
[2021-12-25] MEDS ORDERED: MED NOTE (12:22)
== END 2021-10-26 12:20 | disposition home or self-care (01) ==
LOC: M ED 04:04
DX: F20.9 Schizophrenia, unspecified (principal); R45.851 Suicidal ideations; Z91.048 Other nonmedicinal substance allergy status

== ENCOUNTER 2021-10-28 17:52 | Emergency (ER) | payer OTHER ==
[~2021-10-28] VITALS: Ht 170.2 cm; Wt 76.5 kg
[2021-10-28 17:52] VITALS: BP 139/88
[2021-10-28] MEDS ORDERED: OLAN1TAB16 PO (18:07)
[2021-10-28] MEDS ORDERED: INVE234I INJ (18:07)
[2021-10-28] MEDS ORDERED: PRAZ1CAP PO (18:07)
[2021-10-28] MEDS ORDERED: BENZ-52 PO (18:07)
[2021-11-08] MEDS ORDERED: PALI1TAB2 PO (07:44)
[2021-11-08] MEDS ORDERED: NICO21PAT TD (07:44)
[2021-12-21] MEDS ORDERED: INVE234I SC (11:33)
[2021-12-25] MEDS ORDERED: BENZ-52 PO (12:21)
[2021-12-25] MEDS ORDERED: OLAN1TAB16 PO (12:21)
[2021-12-25] MEDS ORDERED: PRAZ1CAP PO (12:21)
[2021-12-25] MEDS ORDERED: MED NOTE (12:22)
== END 2021-10-28 19:10 | disposition left against medical advice (07) ==
LOC: M ED 17:52
DX: Z53.21 Procedure and treatment not carried out due to patient leaving prior to being seen by health care provider (principal)

== ENCOUNTER 2021-11-30 09:48 | Emergency (ER) | payer MEDICAID, OTHER ==
[~2021-11-30] VITALS: Ht 175.3 cm; Wt 74.3 kg
[~2021-11-30 09:48] MED LIST changes: +INVE234I INJ
[2021-11-30 09:52] VITALS: BP 117/72
[2021-11-30] MEDS ORDERED: HALO10AM (09:56)
[2021-11-30 10:37] LABS: HEMATOCRIT 44.3 % (42.0-52.0); HEMOGLOBIN 14.4 g/dl (13.5-17.5); MEAN CORPUSCULAR HEMOGLOBIN 29.1 pg (27.0-33.0); MEAN CORPUSCULAR HGB CONC 32.5 g/dl (32.0-36.5); MEAN CORPUSCULAR VOLUME 89.5 fl (80.0-96.0); PLATELET COUNT, AUTOMATED 230 10^3/uL (150-450); RED BLOOD COUNT 4.95 10^6/uL (4.30-6.10); WHITE BLOOD COUNT 8.5 10^3/uL (4.0-10.0)
[2021-11-30 11:09] LABS: AMPHETAMINES LEVEL URINE POSITIVE (NEGATIVE); BARBITURATES URINE NEGATIVE (NEGATIVE); BENZODIAZEPINES URINE NEGATIVE (NEGATIVE); CANNABINOIDS URINE POSITIVE (NEGATIVE); COCAINE METABOLITE URINE NEGATIVE (NEGATIVE); METHADONE URINE NEGATIVE (NEGATIVE); OPIATES URINE NEGATIVE (NEGATIVE); PHENCYCLIDINE URINE NEGATIVE (NEGATIVE)
[2021-11-30 11:13] LABS: ACETAMINOPHEN LEVEL < 2.0 UG/ML (10.0-30.0); ALBUMIN 3.9 GM/DL (3.2-5.2); ALT/SGPT 191 U/L (12-78); BILIRUBIN,DIRECT 0.2 MG/DL (0.0-0.2); BILIRUBIN,TOTAL 0.8 MG/DL (0.2-1.0); BLOOD UREA NITROGEN 12 MG/DL (7-18); CALCIUM LEVEL 9.2 MG/DL (8.5-10.1); CARBON DIOXIDE LEVEL 26 MEQ/L (21-32); CHLORIDE LEVEL 109 MEQ/L (98-107); CREATININE FOR GFR 0.97 MG/DL (0.70-1.30); ETHYL ALCOHOL (ETHANOL) < 0.003 % (0.000-0.010); GLOMERULAR FILTRATION RATE > 60.0 (>60); GLUCOSE, FASTING 84 MG/DL (70-100); POTASSIUM SERUM 4.9 MEQ/L (3.5-5.1); SALICYLATE LEVEL 1.8 MG/DL (5.0-30.0); SODIUM LEVEL 141 MEQ/L (136-145); THYROID STIMULATING HORMONE 0.779 uIU/ML (0.358-3.740); TOTAL PROTEIN 8.1 GM/DL (6.4-8.2)
[2021-12-21] MEDS ORDERED: INVE234I SC (11:33)
[2021-12-25] MEDS ORDERED: OLAN1TAB16 PO (12:21)
[2021-12-25] MEDS ORDERED: PRAZ1CAP PO (12:21)
[2021-12-25] MEDS ORDERED: BENZ-52 PO (12:21)
[2021-12-25] MEDS ORDERED: MED NOTE (12:22)
== END 2021-11-30 14:51 | disposition home or self-care (01) ==
LOC: M ED 09:48
DX: F19.150 Other psychoactive substance abuse with psychoactive substance-induced psychotic disorder with delusions (principal); R45.851 Suicidal ideations; F32.A Depression, unspecified; F20.9 Schizophrenia, unspecified; F17.200 Nicotine dependence, unspecified, uncomplicated; F11.20 Opioid dependence, uncomplicated; F10.10 Alcohol abuse, uncomplicated

== ENCOUNTER 2021-12-04 18:58 | Emergency (ER) | payer MEDICAID, OTHER ==
[~2021-12-04] VITALS: Ht 175.3 cm; Wt 76.1 kg
[2021-12-04] MEDS ORDERED: ACETAMINOPHEN 325 MG TAB PO ONE (19:45)
[2021-12-04 20:13] LABS: HEMATOCRIT 43.1 % (42.0-52.0); HEMOGLOBIN 13.9 g/dl (13.5-17.5); MEAN CORPUSCULAR HEMOGLOBIN 29.5 pg (27.0-33.0); MEAN CORPUSCULAR HGB CONC 32.3 g/dl (32.0-36.5); MEAN CORPUSCULAR VOLUME 91.5 fl (80.0-96.0); PLATELET COUNT, AUTOMATED 250 10^3/uL (150-450); RED BLOOD COUNT 4.71 10^6/uL (4.30-6.10); WHITE BLOOD COUNT 9.1 10^3/uL (4.0-10.0)
[2021-12-04 20:40] LABS: AMPHETAMINES LEVEL URINE NEGATIVE (NEGATIVE); BARBITURATES URINE NEGATIVE (NEGATIVE); BENZODIAZEPINES URINE NEGATIVE (NEGATIVE); CANNABINOIDS URINE POSITIVE (NEGATIVE); COCAINE METABOLITE URINE NEGATIVE (NEGATIVE); METHADONE URINE NEGATIVE (NEGATIVE); OPIATES URINE NEGATIVE (NEGATIVE); PHENCYCLIDINE URINE NEGATIVE (NEGATIVE)
[2021-12-04 21:04] LABS: ACETAMINOPHEN LEVEL < 2.0 UG/ML (10.0-30.0); ALBUMIN 3.6 GM/DL (3.2-5.2); ALT/SGPT 113 U/L (12-78); BILIRUBIN,DIRECT 0.1 MG/DL (0.0-0.2); BILIRUBIN,TOTAL 0.4 MG/DL (0.2-1.0); BLOOD UREA NITROGEN 15 MG/DL (7-18); CALCIUM LEVEL 9.1 MG/DL (8.5-10.1); CARBON DIOXIDE LEVEL 28 MEQ/L (21-32); CHLORIDE LEVEL 105 MEQ/L (98-107); CREATININE FOR GFR 0.98 MG/DL (0.70-1.30); ETHYL ALCOHOL (ETHANOL) 0.005 % (0.000-0.010); GLOMERULAR FILTRATION RATE > 60.0 (>60); GLUCOSE, FASTING 70 MG/DL (70-100); POTASSIUM SERUM 4.3 MEQ/L (3.5-5.1); SALICYLATE LEVEL < 1.7 MG/DL (5.0-30.0); SODIUM LEVEL 137 MEQ/L (136-145); THYROID STIMULATING HORMONE 0.663 uIU/ML (0.358-3.740); TOTAL PROTEIN 7.4 GM/DL (6.4-8.2)
[2021-12-05 03:38] VITALS: BP 110/69
== END 2021-12-05 06:32 | disposition home or self-care (01) ==
LOC: M ED 18:58
DX: F20.9 Schizophrenia, unspecified (principal); I10 Essential (primary) hypertension; J45.909 Unspecified asthma, uncomplicated; R56.9 Unspecified convulsions; Z79.899 Other long term (current) drug therapy

== ENCOUNTER 2021-12-21 11:26 | Emergency (ER) | payer MEDICAID, OTHER ==
[~2021-12-21] VITALS: Ht 172.7 cm; Wt 74.8 kg
[2021-12-21 11:26] VITALS: BP 112/66
[2021-12-21] MEDS ORDERED: INVE234I (11:33)
[2021-12-21] MEDS ORDERED: guaiFENesin ER 600 MG TAB PO STA (12:12)
[2021-12-21] MEDS ORDERED: BENZONATATE 100MG CAPSULE PO ONE (12:15)
[2021-12-21] MEDS ORDERED: MUCI30TA5 PO (12:49)
[2021-12-21] MEDS ORDERED: IBUP-1022 PO (12:49)
== END 2021-12-21 12:56 | disposition home or self-care (01) ==
LOC: M ED 11:26
DX: R06.02 Shortness of breath (principal); Z86.16 Personal history of COVID-19; R05.9 Cough, unspecified; I10 Essential (primary) hypertension; G40.509 Epileptic seizures related to external causes, not intractable, without status epilepticus; F17.200 Nicotine dependence, unspecified, uncomplicated; F20.9 Schizophrenia, unspecified; Z79.899 Other long term (current) drug therapy

== ENCOUNTER 2021-12-30 07:42 | Emergency (ER) | payer OTHER ==
[~2021-12-30] VITALS: Ht 175.3 cm; Wt 75.3 kg
[~2021-12-30 07:42] MED LIST changes: +IBUP-1022 PO; +INVE234I SC; +MED NOTE; +MUCI30TA5 PO
[2021-12-30 09:43] VITALS: BP 134/90
== END 2021-12-30 09:45 | disposition home or self-care (01) ==
LOC: M ED 07:42
DX: F20.9 Schizophrenia, unspecified (principal); F43.0 Acute stress reaction; R45.850 Homicidal ideations; F17.200 Nicotine dependence, unspecified, uncomplicated; Z79.899 Other long term (current) drug therapy

== ENCOUNTER 2022-01-04 11:57 | Emergency (ER) | payer OTHER ==
[~2022-01-04] VITALS: Ht 175.3 cm; Wt 72.7 kg
[2022-01-04 11:57] VITALS: BP 120/81
[2022-01-04 14:10] LABS: HEMATOCRIT 44.6 % (42.0-52.0); HEMOGLOBIN 14.8 g/dl (13.5-17.5); MEAN CORPUSCULAR HGB CONC 33.2 g/dl (32.0-36.5); MEAN CORPUSCULAR VOLUME 90.3 fl (80.0-96.0); PLATELET COUNT, AUTOMATED 296 10^3/uL (150-450); RED BLOOD COUNT 4.94 10^6/uL (4.30-6.10); WHITE BLOOD COUNT 9.7 10^3/uL (4.0-10.0)
[2022-01-04 14:54] LABS: ACETAMINOPHEN LEVEL < 2.0 UG/ML (10.0-30.0); ALBUMIN 3.6 GM/DL (3.2-5.2); ALT/SGPT 90 U/L (12-78); BILIRUBIN,DIRECT 0.2 MG/DL (0.0-0.2); BILIRUBIN,TOTAL 0.7 MG/DL (0.2-1.0); BLOOD UREA NITROGEN 9 MG/DL (7-18); CALCIUM LEVEL 9.3 MG/DL (8.5-10.1); CARBON DIOXIDE LEVEL 26 MEQ/L (21-32); CHLORIDE LEVEL 107 MEQ/L (98-107); CREATININE FOR GFR 1.08 MG/DL (0.70-1.30); ETHYL ALCOHOL (ETHANOL) < 0.003 % (0.000-0.010); GLOMERULAR FILTRATION RATE > 60.0 (>60); GLUCOSE, FASTING 116 MG/DL (70-100); SALICYLATE LEVEL < 1.7 MG/DL (5.0-30.0); SODIUM LEVEL 142 MEQ/L (136-145); THYROID STIMULATING HORMONE 0.353 uIU/ML (0.358-3.740); TOTAL PROTEIN 7.1 GM/DL (6.4-8.2)
[2022-01-04 18:17] LABS: AMPHETAMINES LEVEL URINE NEGATIVE (NEGATIVE); BARBITURATES URINE NEGATIVE (NEGATIVE); BENZODIAZEPINES URINE NEGATIVE (NEGATIVE); CANNABINOIDS URINE POSITIVE (NEGATIVE); COCAINE METABOLITE URINE NEGATIVE (NEGATIVE); METHADONE URINE NEGATIVE (NEGATIVE); OPIATES URINE NEGATIVE (NEGATIVE); PHENCYCLIDINE URINE NEGATIVE (NEGATIVE)
== END 2022-01-04 17:47 | disposition home or self-care (01) ==
LOC: M ED 11:57
DX: F20.9 Schizophrenia, unspecified (principal); F43.0 Acute stress reaction; R45.851 Suicidal ideations; I10 Essential (primary) hypertension; F10.10 Alcohol abuse, uncomplicated

== ENCOUNTER 2022-01-08 00:08 | Emergency (ER) | payer OTHER ==
[~2022-01-08] VITALS: Ht 175.3 cm; Wt 72.7 kg
[2022-01-08 00:44] LABS: HEMATOCRIT 42.2 % (42.0-52.0); HEMOGLOBIN 14.1 g/dl (13.5-17.5); MEAN CORPUSCULAR HEMOGLOBIN 30.1 pg (27.0-33.0); MEAN CORPUSCULAR HGB CONC 33.4 g/dl (32.0-36.5); PLATELET COUNT, AUTOMATED 281 10^3/uL (150-450); RED BLOOD COUNT 4.69 10^6/uL (4.30-6.10); WHITE BLOOD COUNT 8.4 10^3/uL (4.0-10.0)
[2022-01-08 01:30] LABS: ACETAMINOPHEN LEVEL < 2.0 UG/ML (10.0-30.0); ALBUMIN 3.8 GM/DL (3.2-5.2); ALT/SGPT 110 U/L (12-78); BILIRUBIN,DIRECT 0.2 MG/DL (0.0-0.2); BILIRUBIN,TOTAL 0.4 MG/DL (0.2-1.0); BLOOD UREA NITROGEN 12 MG/DL (7-18); CALCIUM LEVEL 9.1 MG/DL (8.5-10.1); CARBON DIOXIDE LEVEL 29 MEQ/L (21-32); CHLORIDE LEVEL 106 MEQ/L (98-107); CREATININE FOR GFR 1.03 MG/DL (0.70-1.30); ETHYL ALCOHOL (ETHANOL) 0.003 % (0.000-0.010); GLOMERULAR FILTRATION RATE > 60.0 (>60); GLUCOSE, FASTING 75 MG/DL (70-100); POTASSIUM SERUM 3.8 MEQ/L (3.5-5.1); SALICYLATE LEVEL 2.1 MG/DL (5.0-30.0); SODIUM LEVEL 139 MEQ/L (136-145); TOTAL PROTEIN 7.4 GM/DL (6.4-8.2)
[2022-01-08 01:47] LABS: RSV AMPLIFICATION NEGATIVE (NEGATIVE)
[2022-01-08 02:23] LABS: AMPHETAMINES LEVEL URINE POSITIVE (NEGATIVE); BARBITURATES URINE NEGATIVE (NEGATIVE); BENZODIAZEPINES URINE NEGATIVE (NEGATIVE); CANNABINOIDS URINE POSITIVE (NEGATIVE); COCAINE METABOLITE URINE NEGATIVE (NEGATIVE); METHADONE URINE NEGATIVE (NEGATIVE); OPIATES URINE NEGATIVE (NEGATIVE); PHENCYCLIDINE URINE NEGATIVE (NEGATIVE)
[2022-01-08] MEDS ORDERED: HOME MED LIST COMPLETE! XX SCH (10:00)
[2022-01-08 10:40] VITALS: BP 137/73
== END 2022-01-08 10:42 | disposition home or self-care (01) ==
LOC: M ED 00:08
DX: F20.9 Schizophrenia, unspecified (principal); F19.10 Other psychoactive substance abuse, uncomplicated; F11.10 Opioid abuse, uncomplicated; I10 Essential (primary) hypertension; Z79.899 Other long term (current) drug therapy

== ENCOUNTER 2022-01-30 03:15 | Emergency (ER) | payer OTHER ==
[~2022-01-30] VITALS: Ht 170.2 cm; Wt 73.2 kg
[2022-01-30 04:34] LABS: HEMATOCRIT 40.8 % (42.0-52.0); HEMOGLOBIN 13.8 g/dl (13.5-17.5); MEAN CORPUSCULAR HEMOGLOBIN 30.5 pg (27.0-33.0); MEAN CORPUSCULAR HGB CONC 33.8 g/dl (32.0-36.5); MEAN CORPUSCULAR VOLUME 90.1 fl (80.0-96.0); PLATELET COUNT, AUTOMATED 283 10^3/uL (150-450); RED BLOOD COUNT 4.53 10^6/uL (4.30-6.10); WHITE BLOOD COUNT 9.8 10^3/uL (4.0-10.0)
[2022-01-30 05:06] LABS: ACETAMINOPHEN LEVEL < 2.0 UG/ML (10.0-30.0); ALBUMIN 3.6 GM/DL (3.2-5.2); ALT/SGPT 85 U/L (12-78); BILIRUBIN,DIRECT 0.1 MG/DL (0.0-0.2); BILIRUBIN,TOTAL 0.4 MG/DL (0.2-1.0); BLOOD UREA NITROGEN 9 MG/DL (7-18); CARBON DIOXIDE LEVEL 27 MEQ/L (21-32); CHLORIDE LEVEL 106 MEQ/L (98-107); CREATININE FOR GFR 0.91 MG/DL (0.70-1.30); ETHYL ALCOHOL (ETHANOL) 0.013 % (0.000-0.010); GLOMERULAR FILTRATION RATE > 60.0 (>60); GLUCOSE, FASTING 65 MG/DL (70-100); POTASSIUM SERUM 3.9 MEQ/L (3.5-5.1); SALICYLATE LEVEL 2.6 MG/DL (5.0-30.0); SODIUM LEVEL 140 MEQ/L (136-145); TOTAL PROTEIN 7.3 GM/DL (6.4-8.2)
[2022-01-30 05:23] LABS: RSV AMPLIFICATION NEGATIVE (NEGATIVE)
[2022-01-30] MEDS ORDERED: HOME MED LIST COMPLETE! XX SCH (13:20)
[2022-01-30 14:08] LABS: AMPHETAMINES LEVEL URINE NEGATIVE (NEGATIVE); BARBITURATES URINE NEGATIVE (NEGATIVE); BENZODIAZEPINES URINE NEGATIVE (NEGATIVE); CANNABINOIDS URINE POSITIVE (NEGATIVE); COCAINE METABOLITE URINE NEGATIVE (NEGATIVE); METHADONE URINE NEGATIVE (NEGATIVE); OPIATES URINE NEGATIVE (NEGATIVE); PHENCYCLIDINE URINE NEGATIVE (NEGATIVE)
[2022-01-30 15:07] VITALS: BP 133/78
== END 2022-01-30 13:45 | disposition home or self-care (01) ==
LOC: M ED 03:15
DX: F19.10 Other psychoactive substance abuse, uncomplicated (principal); R45.850 Homicidal ideations; F43.10 Post-traumatic stress disorder, unspecified; F17.200 Nicotine dependence, unspecified, uncomplicated; F10.10 Alcohol abuse, uncomplicated; Z79.899 Other long term (current) drug therapy

== ENCOUNTER 2022-02-16 02:21 | Emergency (ER) | payer OTHER ==
[~2022-02-16] VITALS: Ht 170.2 cm; Wt 68.8 kg
[2022-02-16 02:22] VITALS: BP 125/88
== END 2022-02-16 02:45 | disposition left against medical advice (07) ==
LOC: M ED 02:21
DX: Z53.21 Procedure and treatment not carried out due to patient leaving prior to being seen by health care provider (principal)

== ENCOUNTER 2022-02-18 04:02 | Emergency (ER) | payer OTHER ==
[~2022-02-18] VITALS: Ht 177.8 cm; Wt 81.8 kg
[2022-02-18 04:42] LABS: HEMOGLOBIN 14.2 g/dl (13.5-17.5); MEAN CORPUSCULAR HEMOGLOBIN 30.1 pg (27.0-33.0); MEAN CORPUSCULAR VOLUME 91.1 fl (80.0-96.0); PLATELET COUNT, AUTOMATED 284 10^3/uL (150-450); RED BLOOD COUNT 4.72 10^6/uL (4.30-6.10); WHITE BLOOD COUNT 9.2 10^3/uL (4.0-10.0)
[2022-02-18 05:27] LABS: ACETAMINOPHEN LEVEL < 2.0 UG/ML (10.0-30.0); ALBUMIN 3.6 GM/DL (3.2-5.2); ALT/SGPT 75 U/L (12-78); BILIRUBIN,DIRECT 0.1 MG/DL (0.0-0.2); BILIRUBIN,TOTAL 0.4 MG/DL (0.2-1.0); BLOOD UREA NITROGEN 11 MG/DL (7-18); CALCIUM LEVEL 9.3 MG/DL (8.5-10.1); CARBON DIOXIDE LEVEL 25 MEQ/L (21-32); CHLORIDE LEVEL 110 MEQ/L (98-107); CREATININE FOR GFR 0.77 MG/DL (0.70-1.30); ETHYL ALCOHOL (ETHANOL) 0.038 % (0.000-0.010); GLOMERULAR FILTRATION RATE > 60.0 (>60); GLUCOSE, FASTING 79 MG/DL (70-100); POTASSIUM SERUM 4.6 MEQ/L (3.5-5.1); SALICYLATE LEVEL 2.5 MG/DL (5.0-30.0); SODIUM LEVEL 141 MEQ/L (136-145); THYROID STIMULATING HORMONE 0.898 uIU/ML (0.358-3.740); TOTAL PROTEIN 7.4 GM/DL (6.4-8.2)
[2022-02-18 05:36] LABS: AMPHETAMINES LEVEL URINE POSITIVE (NEGATIVE); BARBITURATES URINE NEGATIVE (NEGATIVE); BENZODIAZEPINES URINE NEGATIVE (NEGATIVE); CANNABINOIDS URINE POSITIVE (NEGATIVE); COCAINE METABOLITE URINE NEGATIVE (NEGATIVE); METHADONE URINE NEGATIVE (NEGATIVE); OPIATES URINE NEGATIVE (NEGATIVE); PHENCYCLIDINE URINE NEGATIVE (NEGATIVE)
[2022-02-18] MEDS ORDERED: OLANZapine 5 MG TAB PO SCH (09:00)
[2022-02-18 14:10] VITALS: BP 138/90
[2022-02-18] MEDS ORDERED: BENZTROPINE 1 MG TAB PO SCH (21:00)
[2022-02-18] MEDS ORDERED: PRAZOSIN 1 MG CAP PO SCH (21:00)
== END 2022-02-18 14:19 | disposition home or self-care (01) ==
LOC: M ED 04:02
DX: F19.251 Other psychoactive substance dependence with psychoactive substance-induced psychotic disorder with hallucinations (principal); I10 Essential (primary) hypertension; F17.200 Nicotine dependence, unspecified, uncomplicated; F41.8 Other specified anxiety disorders; F32.A Depression, unspecified; F20.9 Schizophrenia, unspecified; F12.10 Cannabis abuse, uncomplicated; F10.10 Alcohol abuse, uncomplicated

== ENCOUNTER 2022-02-27 14:01 | Inpatient (IN) | payer MEDICAID, OTHER ==
[~2022-02-27] VITALS: Ht 180.3 cm; Wt 69.4 kg
[2022-02-27] MEDS ORDERED: HOME MED LIST COMPLETE! XX SCH (14:45)
[2022-02-27 15:21] LABS: HEMATOCRIT 40.3 % (42.0-52.0); HEMOGLOBIN 13.6 g/dl (13.5-17.5); MEAN CORPUSCULAR HEMOGLOBIN 30.6 pg (27.0-33.0); MEAN CORPUSCULAR HGB CONC 33.7 g/dl (32.0-36.5); MEAN CORPUSCULAR VOLUME 90.6 fl (80.0-96.0); PLATELET COUNT, AUTOMATED 250 10^3/uL (150-450); RED BLOOD COUNT 4.45 10^6/uL (4.30-6.10); WHITE BLOOD COUNT 7.8 10^3/uL (4.0-10.0)
[2022-02-27 15:40] LABS: AMPHETAMINES LEVEL URINE POSITIVE (NEGATIVE); BARBITURATES URINE NEGATIVE (NEGATIVE); BENZODIAZEPINES URINE NEGATIVE (NEGATIVE); CANNABINOIDS URINE POSITIVE (NEGATIVE); COCAINE METABOLITE URINE NEGATIVE (NEGATIVE); METHADONE URINE NEGATIVE (NEGATIVE); OPIATES URINE NEGATIVE (NEGATIVE); PHENCYCLIDINE URINE NEGATIVE (NEGATIVE)
[2022-02-27 15:56] LABS: ACETAMINOPHEN LEVEL < 2.0 UG/ML (10.0-30.0); ALBUMIN 3.6 GM/DL (3.2-5.2); ALT/SGPT 91 U/L (12-78); BILIRUBIN,DIRECT 0.2 MG/DL (0.0-0.2); BILIRUBIN,TOTAL 0.7 MG/DL (0.2-1.0); BLOOD UREA NITROGEN 16 MG/DL (7-18); CALCIUM LEVEL 9.2 MG/DL (8.5-10.1); CARBON DIOXIDE LEVEL 29 MEQ/L (21-32); CHLORIDE LEVEL 107 MEQ/L (98-107); CREATININE FOR GFR 0.82 MG/DL (0.70-1.30); ETHYL ALCOHOL (ETHANOL) 0.003 % (0.000-0.010); GLOMERULAR FILTRATION RATE > 60.0 (>60); GLUCOSE, FASTING 94 MG/DL (70-100); POTASSIUM SERUM 3.9 MEQ/L (3.5-5.1); SODIUM LEVEL 142 MEQ/L (136-145); THYROID STIMULATING HORMONE 0.522 uIU/ML (0.358-3.740); TOTAL PROTEIN 6.8 GM/DL (6.4-8.2)
[2022-02-27 15:58] LABS: RSV AMPLIFICATION NEGATIVE (NEGATIVE)
[2022-02-27] MEDS ORDERED: traZODone 50 MG TAB PO PRN (19:45)
[2022-02-27] MEDS ORDERED: MAALOX 30 ML SUSP *UDC PO PRN (19:45)
[2022-02-27] MEDS ORDERED: OLANZapine ORAL DISINTEGRATING TAB 5MG PO PRN (19:45)
[2022-02-27] MEDS ORDERED: ACETAMINOPHEN TAB 650MG DOSE (2X325MG) PO PRN (19:45)
[2022-02-27] MEDS ORDERED: MOM 30ML SUSPENSION UDC PO PRN (19:45)
[2022-02-27] MEDS ORDERED: PALIPERIDONE 3 MG ER TAB (INVEGA) PO SCH (21:00)
[2022-02-27 22:31] VITALS: BP 113/62
[2022-02-27] MEDS: BENZTROPINE 1 MG TAB PO SCH (23:13)
[2022-02-27] MEDS: PRAZOSIN 1 MG CAP PO SCH (23:14)
[2022-02-28] MEDS ORDERED: OLANZapine 5 MG TAB PO SCH (09:00)
[2022-02-28] MEDS ORDERED: NICOTINE 21MG/24HR 1 EA TRANSDERMAL TD SCH (09:00)
[2022-02-28] MEDS ORDERED: NICOTINE 21MG/24HR 1 EA TRANSDERMAL TD PRN (09:10)
[2022-02-28] MEDS: PALIPERIDONE PALMITATE 234MG/1.5ML INJ (INVEGA)(FREE PSY INPT ONLY) IM ONE ×2 (11:32→11:57)
[2022-02-28] MEDS: PRAZOSIN 1 MG CAP PO SCH (21:00)
[2022-02-28] MEDS: BENZTROPINE 1 MG TAB PO SCH (21:00)
[2022-02-28] MEDS: OLANZapine 5 MG TAB PO SCH (21:00)
[2022-03-01] MEDS: [UNRECOGNIZED DRUG - REMARK] XX SCH (07:28)
[2022-03-01 07:39] LABS: CHOLESTEROL RISK RATIO 1.8 (<5)
[2022-03-01 17:00] VITALS: BP 123/73
[2022-03-01] MEDS: BENZTROPINE 1 MG TAB PO SCH (21:05)
[2022-03-01] MEDS: OLANZapine 5 MG TAB PO SCH (21:05)
[2022-03-01 21:06] VITALS: BP 125/69
[2022-03-01] MEDS: PRAZOSIN 1 MG CAP PO SCH (21:06)
[2022-03-02 06:29] VITALS: BP 115/71
[2022-03-02] MEDS: [UNRECOGNIZED DRUG - REMARK] XX SCH (09:00)
[2022-03-02] MEDS: OLANZapine 5 MG TAB PO SCH (21:00)
[2022-03-02] MEDS: BENZTROPINE 1 MG TAB PO SCH (21:00)
[2022-03-02] MEDS: PRAZOSIN 1 MG CAP PO SCH (21:00)
[2022-03-03 06:23] VITALS: BP 123/86
[2022-03-03] MEDS ORDERED: MINI1CAP PO (08:46)
[2022-03-03] MEDS ORDERED: OLAN1TAB16 PO (08:46)
[2022-03-03] MEDS ORDERED: TRAZ-252 PO (08:46)
[2022-03-03] MEDS ORDERED: BENZ-52 PO (08:46)
[2022-03-03] MEDS: [UNRECOGNIZED DRUG - REMARK] XX SCH (09:00)
== END 2022-03-03 11:00 | disposition home or self-care (01) | DRG 750 ==
LOC: M ED 14:01 → M ED INP 19:44 → M PSY 22:31
PROVIDERS: ADMIT Psychiatry & Neurology Psychiatry; ATTEND Psychiatry & Neurology Psychiatry
DX: F20.0 Paranoid schizophrenia (principal); F79 Unspecified intellectual disabilities; I10 Essential (primary) hypertension; Z91.14 Patient's other noncompliance with medication regimen; F10.10 Alcohol abuse, uncomplicated; F15.90 Other stimulant use, unspecified, uncomplicated; F12.90 Cannabis use, unspecified, uncomplicated; F17.200 Nicotine dependence, unspecified, uncomplicated; Z79.899 Other long term (current) drug therapy; J44.9 Chronic obstructive pulmonary disease, unspecified; B18.2 Chronic viral hepatitis C

== ENCOUNTER 2022-03-28 05:33 | Emergency (ER) | payer MEDICAID, OTHER ==
[~2022-03-28] VITALS: Ht 180.3 cm; Wt 72.0 kg
[~2022-03-28 05:33] MED LIST changes: -AFRI0.058; +MINI1CAP PO; +OXYM15SP2
[2022-03-28 05:34] VITALS: BP 135/85
== END 2022-03-28 06:22 | disposition left against medical advice (07) ==
LOC: M ED 05:33
DX: Z53.21 Procedure and treatment not carried out due to patient leaving prior to being seen by health care provider (principal)

== ENCOUNTER 2022-04-02 06:16 | Emergency (ER) | payer MEDICAID, OTHER ==
[~2022-04-02] VITALS: Ht 172.7 cm; Wt 73.2 kg
[2022-04-02 06:16] VITALS: BP 127/84
== END 2022-04-02 06:30 | disposition left against medical advice (07) ==
LOC: M ED 06:16
DX: Z53.21 Procedure and treatment not carried out due to patient leaving prior to being seen by health care provider (principal)

== ENCOUNTER 2022-04-02 07:11 | Emergency (ER) | payer MEDICAID, OTHER ==
[2022-04-02 07:12] VITALS: BP 148/83
== END 2022-04-02 08:16 | disposition left against medical advice (07) ==
LOC: M ED 07:22
DX: Z53.21 Procedure and treatment not carried out due to patient leaving prior to being seen by health care provider (principal)

== ENCOUNTER 2022-04-07 01:38 | Emergency (ER) | payer MEDICAID, OTHER ==
[~2022-04-07] VITALS: Ht 172.7 cm; Wt 70.9 kg
[2022-04-07 01:39] VITALS: BP 112/74
== END 2022-04-07 03:49 | disposition left against medical advice (07) ==
LOC: M ED 01:38
DX: Z53.21 Procedure and treatment not carried out due to patient leaving prior to being seen by health care provider (principal)

== ENCOUNTER 2022-04-19 13:17 | Emergency (ER) | payer MEDICAID, OTHER ==
[~2022-04-19] VITALS: Ht 177.8 cm; Wt 67.8 kg
[2022-04-19 13:18] VITALS: BP 117/72
== END 2022-04-19 13:35 | disposition left against medical advice (07) ==
LOC: M ED 13:17
DX: Z53.21 Procedure and treatment not carried out due to patient leaving prior to being seen by health care provider (principal)

== ENCOUNTER 2022-04-22 06:59 | Emergency (ER) | payer MEDICAID, OTHER ==
[2022-04-22 06:59] VITALS: BP 130/78
[2022-04-22 08:02] LABS: HEMATOCRIT 39.3 % (42.0-52.0); HEMOGLOBIN 13.2 g/dl (13.5-17.5); MEAN CORPUSCULAR HEMOGLOBIN 29.9 pg (27.0-33.0); MEAN CORPUSCULAR HGB CONC 33.6 g/dl (32.0-36.5); MEAN CORPUSCULAR VOLUME 88.9 fl (80.0-96.0); PLATELET COUNT, AUTOMATED 266 10^3/uL (150-450); RED BLOOD COUNT 4.42 10^6/uL (4.30-6.10); WHITE BLOOD COUNT 7.9 10^3/uL (4.0-10.0)
[2022-04-22 08:27] LABS: ALBUMIN 3.5 GM/DL (3.2-5.2); ALT/SGPT 94 U/L (12-78); BILIRUBIN,DIRECT 0.1 MG/DL (0.0-0.2); BILIRUBIN,TOTAL 0.5 MG/DL (0.2-1.0); BLOOD UREA NITROGEN 11 MG/DL (7-18); CALCIUM LEVEL 9.3 MG/DL (8.5-10.1); CARBON DIOXIDE LEVEL 25 MEQ/L (21-32); CHLORIDE LEVEL 107 MEQ/L (98-107); CREATININE FOR GFR 0.82 MG/DL (0.70-1.30); ETHYL ALCOHOL (ETHANOL) < 0.003 % (0.000-0.010); GLOMERULAR FILTRATION RATE > 60.0 (>60); GLUCOSE, FASTING 95 MG/DL (70-100); POTASSIUM SERUM 3.7 MEQ/L (3.5-5.1); SALICYLATE LEVEL 2.3 MG/DL (5.0-30.0); SODIUM LEVEL 141 MEQ/L (136-145); TOTAL PROTEIN 6.8 GM/DL (6.4-8.2)
[2022-04-22 08:37] LABS: RSV AMPLIFICATION NEGATIVE (NEGATIVE)
[2022-04-22 08:47] LABS: AMPHETAMINES LEVEL URINE POSITIVE (NEGATIVE); BARBITURATES URINE NEGATIVE (NEGATIVE); BENZODIAZEPINES URINE NEGATIVE (NEGATIVE); CANNABINOIDS URINE NEGATIVE (NEGATIVE); COCAINE METABOLITE URINE NEGATIVE (NEGATIVE); METHADONE URINE NEGATIVE (NEGATIVE); OPIATES URINE NEGATIVE (NEGATIVE); PHENCYCLIDINE URINE NEGATIVE (NEGATIVE)
[2022-04-22 12:52] LABS: ACETAMINOPHEN LEVEL < 2.0 UG/ML (0.0-30.0)
[2022-04-22] MEDS ORDERED: OLAN1TAB16 PO (14:18)
[2022-04-22] MEDS ORDERED: PRAZ1CAP PO (14:18)
[2022-04-22] MEDS ORDERED: BENZ-52 PO (14:18)
[2022-04-22] MEDS ORDERED: TRAZ-252 PO (14:18)
[2022-04-22] MEDS ORDERED: HOME MED LIST COMPLETE! XX SCH (14:20)
[2022-04-22] MEDS ORDERED: PALIPERIDONE PALMITATE 234MG/1.5ML INJ (INVEGA)(FREE PSY INPT ONLY) IM ONE (17:00)
== END 2022-04-22 17:31 | disposition home or self-care (01) ==
LOC: M ED 06:59
DX: F20.9 Schizophrenia, unspecified (principal); R45.851 Suicidal ideations; F10.10 Alcohol abuse, uncomplicated; F15.10 Other stimulant abuse, uncomplicated; Z79.83 Long term (current) use of bisphosphonates; Z79.811 Long term (current) use of aromatase inhibitors

== ENCOUNTER 2022-04-28 06:06 | Emergency (ER) | payer OTHER ==
[~2022-04-28] VITALS: Ht 175.3 cm; Wt 70.7 kg
[2022-04-28] MEDS ORDERED: ACETAMINOPHEN 325 MG TAB PO ONE (07:45)
[2022-04-28 08:26] VITALS: BP 122/65
== END 2022-04-28 08:28 | disposition home or self-care (01) ==
LOC: M ED 06:06
DX: G44.209 Tension-type headache, unspecified, not intractable (principal); D64.9 Anemia, unspecified; I10 Essential (primary) hypertension; Z79.899 Other long term (current) drug therapy

== ENCOUNTER 2022-05-01 20:18 | Emergency (ER) | payer OTHER ==
[~2022-05-01] VITALS: Ht 162.6 cm; Wt 69.1 kg
[2022-05-01 20:19] VITALS: BP 109/79
[2022-05-01 22:04] LABS: HEMATOCRIT 42.2 % (42.0-52.0); HEMOGLOBIN 14.2 g/dl (13.5-17.5); MEAN CORPUSCULAR HEMOGLOBIN 30.5 pg (27.0-33.0); MEAN CORPUSCULAR HGB CONC 33.6 g/dl (32.0-36.5); MEAN CORPUSCULAR VOLUME 90.6 fl (80.0-96.0); PLATELET COUNT, AUTOMATED 298 10^3/uL (150-450); RED BLOOD COUNT 4.66 10^6/uL (4.30-6.10); WHITE BLOOD COUNT 9.2 10^3/uL (4.0-10.0)
[2022-05-01 22:37] LABS: ALBUMIN 4.1 GM/DL (3.2-5.2); ALT/SGPT 110 U/L (12-78); BILIRUBIN,DIRECT 0.2 MG/DL (0.0-0.2); BILIRUBIN,TOTAL 0.6 MG/DL (0.2-1.0); BLOOD UREA NITROGEN 15 MG/DL (7-18); CALCIUM LEVEL 9.9 MG/DL (8.5-10.1); CARBON DIOXIDE LEVEL 31 MEQ/L (21-32); CHLORIDE LEVEL 106 MEQ/L (98-107); CREATININE FOR GFR 0.94 MG/DL (0.70-1.30); ETHYL ALCOHOL (ETHANOL) 0.003 % (0.000-0.010); GLOMERULAR FILTRATION RATE > 60.0 (>60); GLUCOSE, FASTING 94 MG/DL (70-100); POTASSIUM SERUM 3.8 MEQ/L (3.5-5.1); SALICYLATE LEVEL < 1.7 MG/DL (5.0-30.0); SODIUM LEVEL 138 MEQ/L (136-145); TOTAL PROTEIN 7.4 GM/DL (6.4-8.2)
[2022-05-01 22:57] LABS: RSV AMPLIFICATION NEGATIVE (NEGATIVE)
[2022-05-02 01:33] LABS: ACETAMINOPHEN LEVEL < 2.0 UG/ML (0.0-30.0)
== END 2022-05-01 22:52 | disposition home or self-care (01) ==
LOC: M ED 20:18
DX: F20.0 Paranoid schizophrenia (principal); F19.10 Other psychoactive substance abuse, uncomplicated; Z79.899 Other long term (current) drug therapy

== ENCOUNTER 2022-05-06 20:26 | Emergency (ER) | payer OTHER ==
[~2022-05-06] VITALS: Ht 167.6 cm; Wt 68.0 kg
[2022-05-06 21:40] LABS: AMPHETAMINES LEVEL URINE POSITIVE (NEGATIVE); BARBITURATES URINE NEGATIVE (NEGATIVE); BENZODIAZEPINES URINE NEGATIVE (NEGATIVE); CANNABINOIDS URINE POSITIVE (NEGATIVE); COCAINE METABOLITE URINE NEGATIVE (NEGATIVE); METHADONE URINE NEGATIVE (NEGATIVE); OPIATES URINE NEGATIVE (NEGATIVE); PHENCYCLIDINE URINE NEGATIVE (NEGATIVE)
[2022-05-06 21:52] LABS: HEMATOCRIT 42.2 % (42.0-52.0); HEMOGLOBIN 13.8 g/dl (13.5-17.5); MEAN CORPUSCULAR HEMOGLOBIN 29.4 pg (27.0-33.0); MEAN CORPUSCULAR HGB CONC 32.7 g/dl (32.0-36.5); MEAN CORPUSCULAR VOLUME 89.8 fl (80.0-96.0); PLATELET COUNT, AUTOMATED 291 10^3/uL (150-450); WHITE BLOOD COUNT 10.1 10^3/uL (4.0-10.0)
[2022-05-06 23:13] LABS: ACETAMINOPHEN LEVEL < 2.0 UG/ML (10.0-30.0); ALBUMIN 3.5 GM/DL (3.2-5.2); ALT/SGPT 94 U/L (12-78); BILIRUBIN,DIRECT < 0.1 MG/DL (0.0-0.2); BILIRUBIN,TOTAL 0.4 MG/DL (0.2-1.0); BLOOD UREA NITROGEN 10 MG/DL (7-18); CALCIUM LEVEL 9.1 MG/DL (8.5-10.1); CARBON DIOXIDE LEVEL 25 MEQ/L (21-32); CHLORIDE LEVEL 109 MEQ/L (98-107); CREATININE FOR GFR 0.94 MG/DL (0.70-1.30); ETHYL ALCOHOL (ETHANOL) < 0.003 % (0.000-0.010); GLOMERULAR FILTRATION RATE > 60.0 (>60); GLUCOSE, FASTING 62 MG/DL (70-100); POTASSIUM SERUM 3.8 MEQ/L (3.5-5.1); SALICYLATE LEVEL < 1.7 MG/DL (5.0-30.0); SODIUM LEVEL 141 MEQ/L (136-145); TOTAL PROTEIN 7.1 GM/DL (6.4-8.2)
[2022-05-06] MEDS ORDERED: LIDOCAINE 5% (LIDODERM) PATCH TD ONE (23:55)
[2022-05-07] VITALS: BP 118/70
[2022-05-07] MEDS ORDERED: **NOTE PATIENT COMMENT** MISC XX SCH (21:00)
== END 2022-05-07 00:13 | disposition home or self-care (01) ==
LOC: M ED 20:26
DX: F20.9 Schizophrenia, unspecified (principal); R94.31 Abnormal electrocardiogram [ECG] [EKG]; M54.50 Low back pain, unspecified; I10 Essential (primary) hypertension; Z79.899 Other long term (current) drug therapy

== ENCOUNTER 2022-05-19 05:50 | Emergency (ER) | payer OTHER ==
[~2022-05-19] VITALS: Ht 180.3 cm; Wt 66.9 kg
[2022-05-19 06:23] LABS: HEMATOCRIT 41.2 % (42.0-52.0); HEMOGLOBIN 13.3 g/dl (13.5-17.5); MEAN CORPUSCULAR HEMOGLOBIN 28.7 pg (27.0-33.0); MEAN CORPUSCULAR HGB CONC 32.3 g/dl (32.0-36.5); MEAN CORPUSCULAR VOLUME 88.8 fl (80.0-96.0); PLATELET COUNT, AUTOMATED 315 10^3/uL (150-450); RED BLOOD COUNT 4.64 10^6/uL (4.30-6.10); WHITE BLOOD COUNT 10.1 10^3/uL (4.0-10.0)
[2022-05-19 06:52] LABS: ACETAMINOPHEN LEVEL < 2.0 UG/ML (10.0-30.0); ALBUMIN 3.5 GM/DL (3.2-5.2); ALT/SGPT 95 U/L (12-78); BILIRUBIN,DIRECT 0.2 MG/DL (0.0-0.2); BILIRUBIN,TOTAL 0.9 MG/DL (0.2-1.0); BLOOD UREA NITROGEN 19 MG/DL (7-18); CALCIUM LEVEL 9.2 MG/DL (8.5-10.1); CARBON DIOXIDE LEVEL 24 MEQ/L (21-32); CHLORIDE LEVEL 110 MEQ/L (98-107); CREATININE FOR GFR 1.02 MG/DL (0.70-1.30); ETHYL ALCOHOL (ETHANOL) < 0.003 % (0.000-0.010); GLOMERULAR FILTRATION RATE > 60.0 (>60); GLUCOSE, FASTING 72 MG/DL (70-100); SALICYLATE LEVEL 1.8 MG/DL (5.0-30.0); SODIUM LEVEL 142 MEQ/L (136-145); TOTAL PROTEIN 7.5 GM/DL (6.4-8.2)
[2022-05-19 07:45] LABS: AMPHETAMINES LEVEL URINE POSITIVE (NEGATIVE); BARBITURATES URINE NEGATIVE (NEGATIVE); BENZODIAZEPINES URINE NEGATIVE (NEGATIVE); CANNABINOIDS URINE POSITIVE (NEGATIVE); COCAINE METABOLITE URINE NEGATIVE (NEGATIVE); METHADONE URINE NEGATIVE (NEGATIVE); OPIATES URINE NEGATIVE (NEGATIVE); PHENCYCLIDINE URINE NEGATIVE (NEGATIVE)
[2022-05-19 08:35] VITALS: BP 127/81
== END 2022-05-19 08:43 | disposition home or self-care (01) ==
LOC: M ED 05:50
DX: F20.9 Schizophrenia, unspecified (principal); R45.851 Suicidal ideations; F43.0 Acute stress reaction; I10 Essential (primary) hypertension; B18.2 Chronic viral hepatitis C

== ENCOUNTER 2022-05-21 01:59 | Emergency (ER) | payer OTHER ==
[2022-05-21 03:23] LABS: HEMATOCRIT 40.2 % (42.0-52.0); HEMOGLOBIN 13.2 g/dl (13.5-17.5); MEAN CORPUSCULAR HEMOGLOBIN 29.5 pg (27.0-33.0); MEAN CORPUSCULAR HGB CONC 32.8 g/dl (32.0-36.5); MEAN CORPUSCULAR VOLUME 89.9 fl (80.0-96.0); PLATELET COUNT, AUTOMATED 286 10^3/uL (150-450); RED BLOOD COUNT 4.47 10^6/uL (4.30-6.10); WHITE BLOOD COUNT 10.9 10^3/uL (4.0-10.0)
[2022-05-21 04:00] LABS: ACETAMINOPHEN LEVEL < 2.0 UG/ML (10.0-30.0); ALBUMIN 3.5 GM/DL (3.2-5.2); ALT/SGPT 94 U/L (12-78); BILIRUBIN,DIRECT 0.2 MG/DL (0.0-0.2); BILIRUBIN,TOTAL 0.9 MG/DL (0.2-1.0); BLOOD UREA NITROGEN 20 MG/DL (7-18); CALCIUM LEVEL 9.2 MG/DL (8.5-10.1); CARBON DIOXIDE LEVEL 25 MEQ/L (21-32); CHLORIDE LEVEL 111 MEQ/L (98-107); ETHYL ALCOHOL (ETHANOL) < 0.003 % (0.000-0.010); GLOMERULAR FILTRATION RATE > 60.0 (>60); GLUCOSE, FASTING 97 MG/DL (70-100); POTASSIUM SERUM 3.8 MEQ/L (3.5-5.1); SODIUM LEVEL 142 MEQ/L (136-145); THYROID STIMULATING HORMONE 0.815 uIU/ML (0.358-3.740); TOTAL PROTEIN 7.2 GM/DL (6.4-8.2)
[2022-05-21] MEDS ORDERED: ACETAMINOPHEN TAB 650MG DOSE (2X325MG) PO ONE (05:05)
[2022-05-21 05:21] LABS: AMPHETAMINES LEVEL URINE POSITIVE (NEGATIVE); BARBITURATES URINE NEGATIVE (NEGATIVE); BENZODIAZEPINES URINE NEGATIVE (NEGATIVE); CANNABINOIDS URINE POSITIVE (NEGATIVE); COCAINE METABOLITE URINE NEGATIVE (NEGATIVE); METHADONE URINE NEGATIVE (NEGATIVE); OPIATES URINE NEGATIVE (NEGATIVE); PHENCYCLIDINE URINE NEGATIVE (NEGATIVE)
[2022-05-21 06:39] VITALS: BP 151/79
== END 2022-05-21 06:45 | disposition home or self-care (01) ==
LOC: M ED 01:59
DX: F20.9 Schizophrenia, unspecified (principal); R45.850 Homicidal ideations; I10 Essential (primary) hypertension; B18.9 Chronic viral hepatitis, unspecified

== ENCOUNTER 2022-05-24 04:10 | Emergency (ER) | payer OTHER ==
[~2022-05-24] VITALS: Ht 167.6 cm; Wt 72.7 kg
[2022-05-24 06:45] LABS: HEMATOCRIT 41.1 % (42.0-52.0); HEMOGLOBIN 13.5 g/dl (13.5-17.5); MEAN CORPUSCULAR HEMOGLOBIN 29.6 pg (27.0-33.0); MEAN CORPUSCULAR HGB CONC 32.8 g/dl (32.0-36.5); MEAN CORPUSCULAR VOLUME 90.1 fl (80.0-96.0); PLATELET COUNT, AUTOMATED 297 10^3/uL (150-450); RED BLOOD COUNT 4.56 10^6/uL (4.30-6.10); WHITE BLOOD COUNT 14.5 10^3/uL (4.0-10.0)
[2022-05-24] MEDS ORDERED: KETOROLAC TROMETHAMINE 10 MG TAB PO ONE (07:30)
[2022-05-24] MEDS ORDERED: OLANZapine ORAL DISINTEGRATING TAB 5MG PO ONE (07:30)
[2022-05-24 07:39] LABS: AMPHETAMINES LEVEL URINE POSITIVE (NEGATIVE); BARBITURATES URINE NEGATIVE (NEGATIVE); BENZODIAZEPINES URINE NEGATIVE (NEGATIVE); CANNABINOIDS URINE POSITIVE (NEGATIVE); COCAINE METABOLITE URINE NEGATIVE (NEGATIVE); METHADONE URINE NEGATIVE (NEGATIVE); OPIATES URINE NEGATIVE (NEGATIVE); PHENCYCLIDINE URINE NEGATIVE (NEGATIVE)
[2022-05-24 07:51] LABS: ACETAMINOPHEN LEVEL < 2.0 UG/ML (10.0-30.0); ALBUMIN 3.8 GM/DL (3.2-5.2); ALT/SGPT 74 U/L (12-78); BILIRUBIN,DIRECT 0.3 MG/DL (0.0-0.2); BILIRUBIN,TOTAL 1.1 MG/DL (0.2-1.0); BLOOD UREA NITROGEN 10 MG/DL (7-18); CALCIUM LEVEL 9.4 MG/DL (8.5-10.1); CARBON DIOXIDE LEVEL 27 MEQ/L (21-32); CHLORIDE LEVEL 103 MEQ/L (98-107); CREATININE FOR GFR 0.92 MG/DL (0.70-1.30); ETHYL ALCOHOL (ETHANOL) < 0.003 % (0.000-0.010); GLOMERULAR FILTRATION RATE > 60.0 (>60); GLUCOSE, FASTING 73 MG/DL (70-100); POTASSIUM SERUM 3.9 MEQ/L (3.5-5.1); SALICYLATE LEVEL < 1.7 MG/DL (5.0-30.0); SODIUM LEVEL 137 MEQ/L (136-145); TOTAL PROTEIN 7.7 GM/DL (6.4-8.2)
[2022-05-24] MEDS ORDERED: MUCI600T31 PO (13:36)
[2022-05-24] MEDS ORDERED: HOME MED LIST COMPLETE! XX SCH (13:40)
[2022-05-24 14:13] VITALS: BP 130/78
== END 2022-05-24 14:18 | disposition home or self-care (01) ==
LOC: M ED 04:10
DX: F20.9 Schizophrenia, unspecified (principal); I10 Essential (primary) hypertension; B18.9 Chronic viral hepatitis, unspecified; Z79.83 Long term (current) use of bisphosphonates; Z79.899 Other long term (current) drug therapy

== ENCOUNTER 2022-05-29 01:28 | Emergency (ER) | payer OTHER ==
[~2022-05-29] VITALS: Ht 175.3 cm; Wt 72.7 kg
[~2022-05-29 01:28] MED LIST changes: +MUCI600T31 PO
[2022-05-29 01:29] VITALS: BP 130/100
== END 2022-05-29 01:52 | disposition left against medical advice (07) ==
LOC: M ED 01:28
DX: Z53.21 Procedure and treatment not carried out due to patient leaving prior to being seen by health care provider (principal)

== ENCOUNTER 2022-05-29 05:40 | Emergency (ER) | payer OTHER ==
[~2022-05-29] VITALS: Ht 175.3 cm; Wt 81.8 kg
[2022-05-29 06:27] LABS: HEMATOCRIT 40.5 % (42.0-52.0); HEMOGLOBIN 13.4 g/dl (13.5-17.5); MEAN CORPUSCULAR HEMOGLOBIN 29.3 pg (27.0-33.0); MEAN CORPUSCULAR HGB CONC 33.1 g/dl (32.0-36.5); MEAN CORPUSCULAR VOLUME 88.6 fl (80.0-96.0); PLATELET COUNT, AUTOMATED 351 10^3/uL (150-450); RED BLOOD COUNT 4.57 10^6/uL (4.30-6.10); WHITE BLOOD COUNT 11.7 10^3/uL (4.0-10.0)
[2022-05-29 06:53] LABS: ACETAMINOPHEN LEVEL < 2.0 UG/ML (10.0-30.0); ALBUMIN 3.4 GM/DL (3.2-5.2); ALT/SGPT 73 U/L (12-78); BILIRUBIN,DIRECT 0.2 MG/DL (0.0-0.2); BILIRUBIN,TOTAL 0.6 MG/DL (0.2-1.0); BLOOD UREA NITROGEN 17 MG/DL (7-18); CALCIUM LEVEL 9.4 MG/DL (8.5-10.1); CARBON DIOXIDE LEVEL 26 MEQ/L (21-32); CHLORIDE LEVEL 107 MEQ/L (98-107); CREATININE FOR GFR 0.86 MG/DL (0.70-1.30); ETHYL ALCOHOL (ETHANOL) < 0.003 % (0.000-0.010); GLOMERULAR FILTRATION RATE > 60.0 (>60); GLUCOSE, FASTING 65 MG/DL (70-100); POTASSIUM SERUM 4.1 MEQ/L (3.5-5.1); SALICYLATE LEVEL 2.1 MG/DL (5.0-30.0); SODIUM LEVEL 139 MEQ/L (136-145); TOTAL PROTEIN 7.3 GM/DL (6.4-8.2)
[2022-05-29 08:42] LABS: RSV AMPLIFICATION NEGATIVE (NEGATIVE)
[2022-05-29] MEDS ORDERED: NICOTINE 21MG/24HR 1 EA TRANSDERMAL TD ONE (09:50)
[2022-05-29 11:25] VITALS: BP 126/86
== END 2022-05-29 11:28 | disposition home or self-care (01) ==
LOC: M ED 05:40
DX: F20.9 Schizophrenia, unspecified (principal); F15.259 Other stimulant dependence with stimulant-induced psychotic disorder, unspecified; I10 Essential (primary) hypertension; J45.909 Unspecified asthma, uncomplicated; J44.9 Chronic obstructive pulmonary disease, unspecified; B19.20 Unspecified viral hepatitis C without hepatic coma; Z91.048 Other nonmedicinal substance allergy status; Z79.899 Other long term (current) drug therapy; F17.200 Nicotine dependence, unspecified, uncomplicated

== ENCOUNTER 2022-06-10 06:37 | Emergency (ER) | payer OTHER ==
[~2022-06-10] VITALS: Ht 175.3 cm; Wt 60.0 kg
[2022-06-10 11:13] VITALS: BP 124/70
== END 2022-06-10 11:15 | disposition home or self-care (01) ==
LOC: M ED 06:37
DX: F20.9 Schizophrenia, unspecified (principal); J45.909 Unspecified asthma, uncomplicated; I10 Essential (primary) hypertension; B18.2 Chronic viral hepatitis C; F17.200 Nicotine dependence, unspecified, uncomplicated; F15.10 Other stimulant abuse, uncomplicated; Z79.83 Long term (current) use of bisphosphonates; Z79.899 Other long term (current) drug therapy

== ENCOUNTER 2022-06-12 20:10 | Emergency (ER) | payer OTHER ==
[~2022-06-12] VITALS: Ht 175.3 cm; Wt 81.0 kg
[2022-06-12 21:21] LABS: HEMATOCRIT 40.5 % (42.0-52.0); HEMOGLOBIN 13.1 g/dl (13.5-17.5); MEAN CORPUSCULAR HEMOGLOBIN 29.2 pg (27.0-33.0); MEAN CORPUSCULAR HGB CONC 32.3 g/dl (32.0-36.5); MEAN CORPUSCULAR VOLUME 90.4 fl (80.0-96.0); PLATELET COUNT, AUTOMATED 291 10^3/uL (150-450); RED BLOOD COUNT 4.48 10^6/uL (4.30-6.10); WHITE BLOOD COUNT 7.6 10^3/uL (4.0-10.0)
[2022-06-12 21:53] LABS: AMPHETAMINES LEVEL URINE NEGATIVE (NEGATIVE); BARBITURATES URINE NEGATIVE (NEGATIVE); BENZODIAZEPINES URINE NEGATIVE (NEGATIVE); CANNABINOIDS URINE POSITIVE (NEGATIVE); COCAINE METABOLITE URINE NEGATIVE (NEGATIVE); METHADONE URINE NEGATIVE (NEGATIVE); OPIATES URINE NEGATIVE (NEGATIVE); PHENCYCLIDINE URINE NEGATIVE (NEGATIVE)
[2022-06-12 22:05] LABS: ACETAMINOPHEN LEVEL < 2.0 UG/ML (10.0-30.0); ALBUMIN 3.3 GM/DL (3.2-5.2); ALT/SGPT 117 U/L (12-78); BILIRUBIN,DIRECT 0.1 MG/DL (0.0-0.2); BILIRUBIN,TOTAL 0.4 MG/DL (0.2-1.0); BLOOD UREA NITROGEN 12 MG/DL (7-18); CALCIUM LEVEL 9.2 MG/DL (8.5-10.1); CARBON DIOXIDE LEVEL 25 MEQ/L (21-32); CHLORIDE LEVEL 108 MEQ/L (98-107); CREATININE FOR GFR 0.84 MG/DL (0.70-1.30); ETHYL ALCOHOL (ETHANOL) < 0.003 % (0.000-0.010); GLOMERULAR FILTRATION RATE > 60.0 (>60); GLUCOSE, FASTING 84 MG/DL (70-100); POTASSIUM SERUM 3.8 MEQ/L (3.5-5.1); SALICYLATE LEVEL 2.7 MG/DL (5.0-30.0); SODIUM LEVEL 139 MEQ/L (136-145)
[2022-06-13 11:18] VITALS: BP 112/69
== END 2022-06-13 11:50 | disposition home or self-care (01) ==
LOC: M ED 20:10
DX: F20.9 Schizophrenia, unspecified (principal); F15.10 Other stimulant abuse, uncomplicated; J45.909 Unspecified asthma, uncomplicated; I10 Essential (primary) hypertension; Z79.899 Other long term (current) drug therapy

== ENCOUNTER 2022-06-15 10:24 | Emergency (ER) | payer OTHER ==
[~2022-06-15] VITALS: Ht 175.3 cm; Wt 56.8 kg
[2022-06-15 10:25] VITALS: BP 122/75
== END 2022-06-15 11:00 | disposition left against medical advice (07) ==
LOC: M ED 10:24
DX: Z53.21 Procedure and treatment not carried out due to patient leaving prior to being seen by health care provider (principal)

== ENCOUNTER 2022-06-25 06:03 | Emergency (ER) | payer OTHER ==
[2022-06-25 06:49] LABS: HEMATOCRIT 41.3 % (42.0-52.0); HEMOGLOBIN 13.6 g/dl (13.5-17.5); MEAN CORPUSCULAR HEMOGLOBIN 29.9 pg (27.0-33.0); MEAN CORPUSCULAR HGB CONC 32.9 g/dl (32.0-36.5); MEAN CORPUSCULAR VOLUME 90.8 fl (80.0-96.0); PLATELET COUNT, AUTOMATED 265 10^3/uL (150-450); RED BLOOD COUNT 4.55 10^6/uL (4.30-6.10); WHITE BLOOD COUNT 7.8 10^3/uL (4.0-10.0)
[2022-06-25 07:29] LABS: RSV AMPLIFICATION NEGATIVE (NEGATIVE)
[2022-06-25 07:34] LABS: AMPHETAMINES LEVEL URINE NEGATIVE (NEGATIVE); BARBITURATES URINE NEGATIVE (NEGATIVE); BENZODIAZEPINES URINE NEGATIVE (NEGATIVE); CANNABINOIDS URINE NEGATIVE (NEGATIVE); COCAINE METABOLITE URINE NEGATIVE (NEGATIVE); METHADONE URINE NEGATIVE (NEGATIVE); OPIATES URINE NEGATIVE (NEGATIVE); PHENCYCLIDINE URINE NEGATIVE (NEGATIVE)
[2022-06-25 07:39] LABS: ACETAMINOPHEN LEVEL < 2.0 UG/ML (10.0-30.0); ALBUMIN 3.6 GM/DL (3.2-5.2); ALT/SGPT 102 U/L (12-78); BILIRUBIN,DIRECT 0.3 MG/DL (0.0-0.2); BILIRUBIN,TOTAL 0.3 MG/DL (0.2-1.0); BLOOD UREA NITROGEN 15 MG/DL (7-18); CARBON DIOXIDE LEVEL 28 MEQ/L (21-32); CHLORIDE LEVEL 108 MEQ/L (98-107); CREATININE FOR GFR 0.94 MG/DL (0.70-1.30); ETHYL ALCOHOL (ETHANOL) < 0.003 % (0.000-0.010); GLOMERULAR FILTRATION RATE > 60.0 (>60); GLUCOSE, FASTING 112 MG/DL (70-100); POTASSIUM SERUM 3.8 MEQ/L (3.5-5.1); SALICYLATE LEVEL 2.5 MG/DL (5.0-30.0); SODIUM LEVEL 139 MEQ/L (136-145); TOTAL PROTEIN 7.2 GM/DL (6.4-8.2)
[2022-06-25] MEDS ORDERED: HOME MED LIST COMPLETE! XX SCH (14:15)
[2022-06-26] MEDS ORDERED: OLANZapine ORAL DISINTEGRATING TAB 5MG PO ONE (10:55)
[2022-06-27] MEDS: OLANZapine 5 MG TAB PO SCH (10:15)
[2022-06-27] MEDS: BENZTROPINE 1 MG TAB PO SCH (10:15)
[2022-06-27] MEDS: PRAZOSIN 1 MG CAP PO SCH (10:15)
[2022-06-28] MEDS ORDERED: OLANZapine 10 MG TAB PO ONE (04:25)
[2022-06-28] MEDS: BENZTROPINE 1 MG TAB PO SCH (09:09)
[2022-06-28] MEDS: PRAZOSIN 1 MG CAP PO SCH (09:10)
[2022-06-28] MEDS: OLANZapine 5 MG TAB PO SCH (09:10)
[2022-06-29] MEDS: BENZTROPINE 1 MG TAB PO SCH (11:30)
[2022-06-29 11:31] VITALS: BP 128/68
[2022-06-29] MEDS: PRAZOSIN 1 MG CAP PO SCH (11:31)
[2022-06-29] MEDS: OLANZapine 5 MG TAB PO SCH (11:32)
[2022-06-29 15:19] VITALS: BP 126/75
== END 2022-06-29 15:34 ==
LOC: M ED 06:03
DX: F20.9 Schizophrenia, unspecified (principal); F29 Unspecified psychosis not due to a substance or known physiological condition; I10 Essential (primary) hypertension; J45.909 Unspecified asthma, uncomplicated; F15.10 Other stimulant abuse, uncomplicated

== ENCOUNTER 2022-07-24 07:04 | Emergency (ER) | payer OTHER ==
[2022-07-24 10:02] LABS: HEMATOCRIT 41.4 % (42.0-52.0); HEMOGLOBIN 13.4 g/dl (13.5-17.5); MEAN CORPUSCULAR HEMOGLOBIN 29.4 pg (27.0-33.0); MEAN CORPUSCULAR HGB CONC 32.4 g/dl (32.0-36.5); MEAN CORPUSCULAR VOLUME 90.8 fl (80.0-96.0); PLATELET COUNT, AUTOMATED 276 10^3/uL (150-450); RED BLOOD COUNT 4.56 10^6/uL (4.30-6.10); WHITE BLOOD COUNT 7.2 10^3/uL (4.0-10.0)
[2022-07-24 10:35] LABS: RSV AMPLIFICATION NEGATIVE (NEGATIVE)
[2022-07-24 10:42] LABS: ACETAMINOPHEN LEVEL < 2.0 UG/ML (10.0-30.0); ALBUMIN 3.8 GM/DL (3.2-5.2); ALT/SGPT 111 U/L (12-78); BILIRUBIN,DIRECT 0.2 MG/DL (0.0-0.2); BILIRUBIN,TOTAL 0.8 MG/DL (0.2-1.0); BLOOD UREA NITROGEN 8 MG/DL (7-18); CALCIUM LEVEL 9.7 MG/DL (8.5-10.1); CARBON DIOXIDE LEVEL 31 MEQ/L (21-32); CHLORIDE LEVEL 105 MEQ/L (98-107); CREATININE FOR GFR 0.94 MG/DL (0.70-1.30); ETHYL ALCOHOL (ETHANOL) < 0.003 % (0.000-0.010); GLOMERULAR FILTRATION RATE > 60.0 (>60); GLUCOSE, FASTING 80 MG/DL (70-100); POTASSIUM SERUM 3.9 MEQ/L (3.5-5.1); SALICYLATE LEVEL < 1.7 MG/DL (5.0-30.0); SODIUM LEVEL 138 MEQ/L (136-145); THYROID STIMULATING HORMONE 0.847 uIU/ML (0.358-3.740); TOTAL PROTEIN 7.5 GM/DL (6.4-8.2)
[2022-07-24 10:47] LABS: AMPHETAMINES LEVEL URINE NEGATIVE (NEGATIVE); BARBITURATES URINE NEGATIVE (NEGATIVE); BENZODIAZEPINES URINE NEGATIVE (NEGATIVE); CANNABINOIDS URINE POSITIVE (NEGATIVE); COCAINE METABOLITE URINE NEGATIVE (NEGATIVE); METHADONE URINE NEGATIVE (NEGATIVE); OPIATES URINE NEGATIVE (NEGATIVE); PHENCYCLIDINE URINE NEGATIVE (NEGATIVE)
[2022-07-24] MEDS ORDERED: PRAZ1CAP PO (11:41)
[2022-07-24] MEDS ORDERED: BENZ-52 PO (11:41)
[2022-07-24] MEDS ORDERED: OLAN1TAB16 PO (11:41)
[2022-07-24] MEDS ORDERED: NICO2GUM AD (13:07)
[2022-07-24] MEDS ORDERED: HOME MED LIST COMPLETE! XX SCH (13:10)
[2022-07-24 14:53] VITALS: BP 129/83
[2022-07-24] MEDS ORDERED: BENZTROPINE 1 MG TAB PO SCH (21:00)
[2022-07-24] MEDS ORDERED: PRAZOSIN 1 MG CAP PO SCH (21:00)
[2022-07-24] MEDS ORDERED: OLANZapine 5 MG TAB PO SCH (21:00)
== END 2022-07-24 14:57 | disposition home or self-care (01) ==
LOC: M ED 07:04
DX: F20.9 Schizophrenia, unspecified (principal); R45.851 Suicidal ideations; I10 Essential (primary) hypertension; F17.200 Nicotine dependence, unspecified, uncomplicated; F15.10 Other stimulant abuse, uncomplicated; F10.10 Alcohol abuse, uncomplicated; Z79.899 Other long term (current) drug therapy

== ENCOUNTER 2022-07-24 17:30 | Emergency (ER) | payer OTHER ==
[~2022-07-24 17:30] MED LIST changes: +NICO2GUM AD
[2022-07-24 20:10] VITALS: BP 124/81
== END 2022-07-24 20:08 | disposition home or self-care (01) ==
LOC: M ED 17:30
DX: F20.9 Schizophrenia, unspecified (principal); R45.851 Suicidal ideations; I10 Essential (primary) hypertension; J45.909 Unspecified asthma, uncomplicated; F15.10 Other stimulant abuse, uncomplicated

== ENCOUNTER 2022-07-28 02:38 | Emergency (ER) | payer OTHER ==
[~2022-07-28] VITALS: Ht 167.6 cm; Wt 68.3 kg
[2022-07-28 03:11] LABS: HEMATOCRIT 40.5 % (42.0-52.0); HEMOGLOBIN 13.5 g/dl (13.5-17.5); MEAN CORPUSCULAR HEMOGLOBIN 29.5 pg (27.0-33.0); MEAN CORPUSCULAR HGB CONC 33.3 g/dl (32.0-36.5); MEAN CORPUSCULAR VOLUME 88.4 fl (80.0-96.0); PLATELET COUNT, AUTOMATED 293 10^3/uL (150-450); RED BLOOD COUNT 4.58 10^6/uL (4.30-6.10); WHITE BLOOD COUNT 7.1 10^3/uL (4.0-10.0)
[2022-07-28 03:47] LABS: RSV AMPLIFICATION NEGATIVE (NEGATIVE)
[2022-07-28 04:03] LABS: ACETAMINOPHEN LEVEL < 2.0 UG/ML (10.0-30.0); ALBUMIN 3.9 GM/DL (3.2-5.2); ALT/SGPT 100 U/L (12-78); BILIRUBIN,DIRECT 0.2 MG/DL (0.0-0.2); BILIRUBIN,TOTAL 0.9 MG/DL (0.2-1.0); BLOOD UREA NITROGEN 10 MG/DL (7-18); CALCIUM LEVEL 9.4 MG/DL (8.5-10.1); CARBON DIOXIDE LEVEL 27 MEQ/L (21-32); CHLORIDE LEVEL 105 MEQ/L (98-107); CREATININE FOR GFR 0.93 MG/DL (0.70-1.30); ETHYL ALCOHOL (ETHANOL) < 0.003 % (0.000-0.010); GLOMERULAR FILTRATION RATE > 60.0 (>60); GLUCOSE, FASTING 85 MG/DL (70-100); POTASSIUM SERUM 3.8 MEQ/L (3.5-5.1); SALICYLATE LEVEL 1.9 MG/DL (5.0-30.0); SODIUM LEVEL 138 MEQ/L (136-145); TOTAL PROTEIN 7.4 GM/DL (6.4-8.2)
[2022-07-28 06:55] LABS: AMPHETAMINES LEVEL URINE POSITIVE (NEGATIVE); BARBITURATES URINE NEGATIVE (NEGATIVE); BENZODIAZEPINES URINE NEGATIVE (NEGATIVE); CANNABINOIDS URINE NEGATIVE (NEGATIVE); COCAINE METABOLITE URINE NEGATIVE (NEGATIVE); METHADONE URINE NEGATIVE (NEGATIVE); OPIATES URINE NEGATIVE (NEGATIVE); PHENCYCLIDINE URINE NEGATIVE (NEGATIVE)
[2022-07-28 09:32] VITALS: BP 113/75
== END 2022-07-28 09:34 | disposition home or self-care (01) ==
LOC: M ED 02:38
DX: F20.9 Schizophrenia, unspecified (principal); R45.850 Homicidal ideations; Z79.811 Long term (current) use of aromatase inhibitors; Z79.83 Long term (current) use of bisphosphonates; Z79.899 Other long term (current) drug therapy

== ENCOUNTER 2022-08-05 22:10 | Emergency (ER) | payer OTHER ==
[2022-08-05 22:45] LABS: BASO % 0.3 % (0.0-1.0); EOS # 0.1 10^3/uL (0.0-0.5); EOS % 0.6 % (0.0-3.0); HEMATOCRIT 41.1 % (42.0-52.0); HEMOGLOBIN 13.4 g/dl (13.5-17.5); LYMPH # 3.3 10^3/uL (1.5-5.0); LYMPH % 41.2 % (24.0-44.0); MEAN CORPUSCULAR HEMOGLOBIN 29.3 pg (27.0-33.0); MEAN CORPUSCULAR HGB CONC 32.6 g/dl (32.0-36.5); MEAN CORPUSCULAR VOLUME 89.9 fl (80.0-96.0); MONO # 0.7 10^3/uL (0.0-0.8); MONO % 8.9 % (2.0-8.0); NEUTROPHILS # 3.9 10^3/uL (1.5-8.5); NEUTROPHILS % 48.9 % (36.0-66.0); PLATELET COUNT, AUTOMATED 307 10^3/uL (150-450); RED BLOOD COUNT 4.57 10^6/uL (4.30-6.10)
[2022-08-05 22:58] LABS: INR 0.99; PROTHROMBIN TIME 13.5 SECONDS (12.7-14.5)
[2022-08-05 23:20] LABS: RSV AMPLIFICATION NEGATIVE (NEGATIVE)
[2022-08-05 23:42] LABS: ACETAMINOPHEN LEVEL < 2.0 UG/ML (10.0-30.0); ALBUMIN 3.8 GM/DL (3.2-5.2); ALT/SGPT 72 U/L (12-78); BILIRUBIN,DIRECT 0.2 MG/DL (0.0-0.2); BILIRUBIN,TOTAL 0.9 MG/DL (0.2-1.0); BLOOD UREA NITROGEN 10 MG/DL (7-18); CALCIUM LEVEL 9.3 MG/DL (8.5-10.1); CARBON DIOXIDE LEVEL 29 MEQ/L (21-32); CHLORIDE LEVEL 104 MEQ/L (98-107); CK-MB VALUE MASS 5.3 NG/ML (<3.6); CREATININE FOR GFR 0.96 MG/DL (0.70-1.30); ETHYL ALCOHOL (ETHANOL) 0.006 % (0.000-0.010); GLOMERULAR FILTRATION RATE > 60.0 (>60); GLUCOSE, FASTING 96 MG/DL (70-100); LIPASE 59 U/L (73-393); MB/CK RELATIVE INDEX 0.7 (< OR =4); NT-PRO BNP 42 PG/ML (<125); POTASSIUM SERUM 4.2 MEQ/L (3.5-5.1); SALICYLATE LEVEL 2.1 MG/DL (5.0-30.0); SODIUM LEVEL 136 MEQ/L (136-145); TOTAL PROTEIN 7.6 GM/DL (6.4-8.2)
[2022-08-05 23:52] LABS: AMPHETAMINES LEVEL URINE NEGATIVE (NEGATIVE); BARBITURATES URINE NEGATIVE (NEGATIVE); BENZODIAZEPINES URINE NEGATIVE (NEGATIVE); CANNABINOIDS URINE POSITIVE (NEGATIVE); COCAINE METABOLITE URINE NEGATIVE (NEGATIVE); METHADONE URINE NEGATIVE (NEGATIVE); OPIATES URINE NEGATIVE (NEGATIVE); PHENCYCLIDINE URINE NEGATIVE (NEGATIVE)
[2022-08-06 01:24] LABS: CK-MB VALUE MASS 5.3 NG/ML (<3.6); MB/CK RELATIVE INDEX 0.7 (< OR =4)
[2022-08-06 09:01] VITALS: BP 115/73
[2022-08-07] MEDS ORDERED: INVE234I IM (10:48)
== END 2022-08-06 09:04 | disposition home or self-care (01) ==
LOC: M ED 22:10 → EDBD 22:10 → M ED 08-06 09:04
DX: F20.9 Schizophrenia, unspecified (principal); R45.851 Suicidal ideations; F17.200 Nicotine dependence, unspecified, uncomplicated; F15.10 Other stimulant abuse, uncomplicated; Z79.899 Other long term (current) drug therapy

== ENCOUNTER 2022-08-06 22:57 | Emergency (ER) | payer OTHER ==
[~2022-08-06] VITALS: Ht 165.1 cm; Wt 70.9 kg
[2022-08-07 00:16] LABS: HEMATOCRIT 41.4 % (42.0-52.0); HEMOGLOBIN 13.7 g/dl (13.5-17.5); MEAN CORPUSCULAR HEMOGLOBIN 29.7 pg (27.0-33.0); MEAN CORPUSCULAR HGB CONC 33.1 g/dl (32.0-36.5); MEAN CORPUSCULAR VOLUME 89.6 fl (80.0-96.0); PLATELET COUNT, AUTOMATED 288 10^3/uL (150-450); RED BLOOD COUNT 4.62 10^6/uL (4.30-6.10); WHITE BLOOD COUNT 7.2 10^3/uL (4.0-10.0)
[2022-08-07 00:51] LABS: RSV AMPLIFICATION NEGATIVE (NEGATIVE)
[2022-08-07 02:31] LABS: ACETAMINOPHEN LEVEL < 2.0 UG/ML (10.0-30.0); ALBUMIN 3.8 GM/DL (3.2-5.2); ALT/SGPT 65 U/L (12-78); BILIRUBIN,DIRECT 0.2 MG/DL (0.0-0.2); BILIRUBIN,TOTAL 0.6 MG/DL (0.2-1.0); BLOOD UREA NITROGEN 8 MG/DL (7-18); CARBON DIOXIDE LEVEL 24 MEQ/L (21-32); CHLORIDE LEVEL 109 MEQ/L (98-107); CREATININE FOR GFR 0.83 MG/DL (0.70-1.30); ETHYL ALCOHOL (ETHANOL) 0.008 % (0.000-0.010); GLOMERULAR FILTRATION RATE > 60.0 (>60); GLUCOSE, FASTING 77 MG/DL (70-100); POTASSIUM SERUM 4.2 MEQ/L (3.5-5.1); SALICYLATE LEVEL 2.2 MG/DL (5.0-30.0); SODIUM LEVEL 139 MEQ/L (136-145); THYROID STIMULATING HORMONE 0.827 uIU/ML (0.358-3.740); TOTAL PROTEIN 7.4 GM/DL (6.4-8.2)
[2022-08-07 02:31] LABS: AMPHETAMINES LEVEL URINE NEGATIVE (NEGATIVE); BARBITURATES URINE NEGATIVE (NEGATIVE); BENZODIAZEPINES URINE NEGATIVE (NEGATIVE); CANNABINOIDS URINE POSITIVE (NEGATIVE); COCAINE METABOLITE URINE NEGATIVE (NEGATIVE); METHADONE URINE NEGATIVE (NEGATIVE); OPIATES URINE NEGATIVE (NEGATIVE); PHENCYCLIDINE URINE NEGATIVE (NEGATIVE)
[2022-08-07] MEDS ORDERED: PALIPERIDONE PAL 234MG/1.5ML INJ (INVEGA)(FREE PSY INPT ONLY) IM ONE (10:30)
[2022-08-07] MEDS ORDERED: INVE234I IM (10:48)
[2022-08-07] MEDS ORDERED: HOME MED LIST COMPLETE! XX SCH (10:50)
[2022-08-07 12:54] VITALS: BP 114/75
[2022-08-07] MEDS ORDERED: PALIPERIDONE PALMITATE 234 MG/1.5 ML IM ONE (14:00)
== END 2022-08-07 12:56 | disposition home or self-care (01) ==
LOC: M ED 22:57
DX: F20.9 Schizophrenia, unspecified (principal); R45.851 Suicidal ideations; Z79.899 Other long term (current) drug therapy
CPT/HCPCS: 36415; 80048; 80076; 80143; 80307; 82077; 84443; 85027; 87631; 96372; 99284; J2426

== ENCOUNTER 2022-08-10 01:24 | Emergency (ER) | payer OTHER ==
[~2022-08-10] VITALS: Ht 175.3 cm; Wt 69.7 kg
[2022-08-10 02:19] LABS: HEMATOCRIT 39.7 % (42.0-52.0); HEMOGLOBIN 13.3 g/dl (13.5-17.5); MEAN CORPUSCULAR HEMOGLOBIN 29.8 pg (27.0-33.0); MEAN CORPUSCULAR HGB CONC 33.5 g/dl (32.0-36.5); PLATELET COUNT, AUTOMATED 266 10^3/uL (150-450); RED BLOOD COUNT 4.46 10^6/uL (4.30-6.10); WHITE BLOOD COUNT 8.2 10^3/uL (4.0-10.0)
[2022-08-10 02:59] LABS: RSV AMPLIFICATION NEGATIVE (NEGATIVE)
[2022-08-10 03:08] LABS: ACETAMINOPHEN LEVEL < 2.0 UG/ML (10.0-30.0); ALBUMIN 3.6 GM/DL (3.2-5.2); ALT/SGPT 66 U/L (12-78); BILIRUBIN,DIRECT 0.1 MG/DL (0.0-0.2); BILIRUBIN,TOTAL 0.4 MG/DL (0.2-1.0); BLOOD UREA NITROGEN 11 MG/DL (7-18); CALCIUM LEVEL 9.3 MG/DL (8.5-10.1); CARBON DIOXIDE LEVEL 26 MEQ/L (21-32); CHLORIDE LEVEL 106 MEQ/L (98-107); CREATININE FOR GFR 0.92 MG/DL (0.70-1.30); ETHYL ALCOHOL (ETHANOL) < 0.003 % (0.000-0.010); GLOMERULAR FILTRATION RATE > 60.0 (>60); GLUCOSE, FASTING 95 MG/DL (70-100); POTASSIUM SERUM 4.1 MEQ/L (3.5-5.1); SODIUM LEVEL 137 MEQ/L (136-145); THYROID STIMULATING HORMONE 0.741 uIU/ML (0.358-3.740); TOTAL PROTEIN 7.2 GM/DL (6.4-8.2)
[2022-08-10 07:26] VITALS: BP 120/62
== END 2022-08-10 07:32 | disposition home or self-care (01) ==
LOC: M ED 01:24
DX: F43.0 Acute stress reaction (principal); F20.9 Schizophrenia, unspecified; F17.200 Nicotine dependence, unspecified, uncomplicated; F15.10 Other stimulant abuse, uncomplicated; Z79.899 Other long term (current) drug therapy

== ENCOUNTER 2022-08-17 13:58 | Emergency (ER) | payer OTHER ==
[~2022-08-17] VITALS: Ht 175.3 cm; Wt 68.7 kg
[2022-08-17 19:11] VITALS: BP 113/73
== END 2022-08-17 19:12 | disposition home or self-care (01) ==
LOC: M ED 13:58
DX: F20.9 Schizophrenia, unspecified (principal); F15.10 Other stimulant abuse, uncomplicated

== ENCOUNTER 2022-08-25 03:33 | Emergency (ER) | payer OTHER ==
[~2022-08-25] VITALS: Ht 175.3 cm; Wt 68.2 kg
[2022-08-25 03:34] VITALS: BP 128/80
== END 2022-08-25 06:30 | disposition home or self-care (01) ==
LOC: M ED 03:33
DX: F20.9 Schizophrenia, unspecified (principal); R45.851 Suicidal ideations; Z79.1 Long term (current) use of non-steroidal anti-inflammatories (NSAID)

== ENCOUNTER 2022-09-04 01:40 | Emergency (ER) | payer OTHER ==
[~2022-09-04] VITALS: Ht 175.3 cm; Wt 69.4 kg
[2022-09-04 01:40] VITALS: BP 129/92
== END 2022-09-04 03:33 | disposition left against medical advice (07) ==
LOC: M ED 01:40
DX: Z53.21 Procedure and treatment not carried out due to patient leaving prior to being seen by health care provider (principal)

== ENCOUNTER 2022-09-04 04:55 | Emergency (ER) | payer OTHER ==
[~2022-09-04] VITALS: Ht 175.3 cm; Wt 69.4 kg
[2022-09-04 04:55] VITALS: BP 131/81
[2022-09-04 05:48] LABS: HEMATOCRIT 43.3 % (42.0-52.0); MEAN CORPUSCULAR HEMOGLOBIN 29.6 pg (27.0-33.0); MEAN CORPUSCULAR HGB CONC 32.3 g/dl (32.0-36.5); MEAN CORPUSCULAR VOLUME 91.5 fl (80.0-96.0); PLATELET COUNT, AUTOMATED 287 10^3/uL (150-450); RED BLOOD COUNT 4.73 10^6/uL (4.30-6.10); WHITE BLOOD COUNT 8.3 10^3/uL (4.0-10.0)
[2022-09-04 06:20] LABS: RSV AMPLIFICATION NEGATIVE (NEGATIVE)
[2022-09-04 07:27] LABS: AMPHETAMINES LEVEL URINE POSITIVE (NEGATIVE); BARBITURATES URINE NEGATIVE (NEGATIVE); BENZODIAZEPINES URINE NEGATIVE (NEGATIVE); CANNABINOIDS URINE NEGATIVE (NEGATIVE); COCAINE METABOLITE URINE NEGATIVE (NEGATIVE); METHADONE URINE NEGATIVE (NEGATIVE); OPIATES URINE NEGATIVE (NEGATIVE); PHENCYCLIDINE URINE NEGATIVE (NEGATIVE)
[2022-09-04 07:36] LABS: BLOOD UREA NITROGEN 10 MG/DL (7-18); GLOMERULAR FILTRATION RATE > 60.0 (>60); GLUCOSE, FASTING 91 MG/DL (70-100); SODIUM LEVEL 139 MEQ/L (136-145)
[2022-09-04 07:37] LABS: ACETAMINOPHEN LEVEL < 2.0 UG/ML (10.0-30.0); ALBUMIN 3.8 GM/DL (3.2-5.2); ALT/SGPT 82 U/L (12-78); BILIRUBIN,DIRECT 0.2 MG/DL (0.0-0.2); BILIRUBIN,TOTAL 0.9 MG/DL (0.2-1.0); CALCIUM LEVEL 9.3 MG/DL (8.5-10.1); CARBON DIOXIDE LEVEL 25 MEQ/L (21-32); CHLORIDE LEVEL 105 MEQ/L (98-107); ETHYL ALCOHOL (ETHANOL) < 0.003 % (0.000-0.010); POTASSIUM SERUM 3.8 MEQ/L (3.5-5.1); SALICYLATE LEVEL 1.8 MG/DL (5.0-30.0); TOTAL PROTEIN 8.2 GM/DL (6.4-8.2)
== END 2022-09-04 11:41 | disposition home or self-care (01) ==
LOC: M ED 04:55
DX: F20.9 Schizophrenia, unspecified (principal); F15.10 Other stimulant abuse, uncomplicated; Z79.899 Other long term (current) drug therapy

== ENCOUNTER 2022-09-22 00:49 | Emergency (ER) | payer OTHER ==
[~2022-09-22] VITALS: Ht 175.3 cm; Wt 69.8 kg
[2022-09-22 10:34] VITALS: BP 118/79
== END 2022-09-22 10:39 | disposition home or self-care (01) ==
LOC: M ED 00:49
DX: F20.9 Schizophrenia, unspecified (principal); Z60.9 Problem related to social environment, unspecified; Z79.899 Other long term (current) drug therapy

== ENCOUNTER 2022-10-03 06:46 | Emergency (ER) | payer OTHER ==
[~2022-10-03] VITALS: Ht 175.3 cm; Wt 69.8 kg
[2022-10-03 06:47] VITALS: BP 142/94
== END 2022-10-03 11:14 | disposition left against medical advice (07) ==
LOC: M ED 06:46
DX: Z53.21 Procedure and treatment not carried out due to patient leaving prior to being seen by health care provider (principal)

== ENCOUNTER 2022-10-03 10:39 | Emergency (ER) | payer OTHER ==
[~2022-10-03] VITALS: Ht 172.7 cm; Wt 110.0 kg
[2022-10-03] MEDS ORDERED: LORazepam 2 MG TAB PO STA (10:44)
[2022-10-03] MEDS ORDERED: PALIPERIDONE PALMITATE 234 MG/1.5 ML IM ONE (13:00)
[2022-10-03 13:19] LABS: BARBITURATES URINE NEGATIVE (NEGATIVE); BENZODIAZEPINES URINE NEGATIVE (NEGATIVE); COCAINE METABOLITE URINE NEGATIVE (NEGATIVE)
[2022-10-03 13:20] LABS: CANNABINOIDS URINE NEGATIVE (NEGATIVE); METHADONE URINE NEGATIVE (NEGATIVE); OPIATES URINE NEGATIVE (NEGATIVE); PHENCYCLIDINE URINE NEGATIVE (NEGATIVE)
[2022-10-03 13:23] LABS: AMPHETAMINES LEVEL URINE POSITIVE (NEGATIVE)
[2022-10-03] MEDS ORDERED: LORazepam 2 MG TAB PO ONE (14:10)
[2022-10-04 03:34] VITALS: BP 138/76
== END 2022-10-04 03:34 | disposition home or self-care (01) ==
LOC: M ED 10:39
DX: F20.9 Schizophrenia, unspecified (principal); F15.10 Other stimulant abuse, uncomplicated; Z79.1 Long term (current) use of non-steroidal anti-inflammatories (NSAID)
CPT/HCPCS: 80307; 96372; 99284; J2426

== ENCOUNTER 2022-10-08 17:15 | Emergency (ER) | payer OTHER ==
[~2022-10-08] VITALS: Ht 175.3 cm; Wt 71.5 kg
[2022-10-08 17:17] VITALS: BP 123/63
== END 2022-10-08 18:53 | disposition left against medical advice (07) ==
LOC: M ED 17:15
DX: Z53.21 Procedure and treatment not carried out due to patient leaving prior to being seen by health care provider (principal)

== ENCOUNTER 2022-10-18 04:09 | Emergency (ER) | payer OTHER ==
[~2022-10-18] VITALS: Ht 175.3 cm; Wt 72.9 kg
[2022-10-18 05:55] LABS: HEMATOCRIT 40.5 % (42.0-52.0); HEMOGLOBIN 13.3 g/dl (13.5-17.5); MEAN CORPUSCULAR HEMOGLOBIN 29.6 pg (27.0-33.0); MEAN CORPUSCULAR HGB CONC 32.8 g/dl (32.0-36.5); MEAN CORPUSCULAR VOLUME 90.2 fl (80.0-96.0); PLATELET COUNT, AUTOMATED 286 10^3/uL (150-450); RED BLOOD COUNT 4.49 10^6/uL (4.30-6.10); WHITE BLOOD COUNT 8.5 10^3/uL (4.0-10.0)
[2022-10-18 06:22] LABS: BARBITURATES URINE NEGATIVE (NEGATIVE); BENZODIAZEPINES URINE NEGATIVE (NEGATIVE); COCAINE METABOLITE URINE NEGATIVE (NEGATIVE)
[2022-10-18 06:23] LABS: METHADONE URINE NEGATIVE (NEGATIVE); PHENCYCLIDINE URINE NEGATIVE (NEGATIVE)
[2022-10-18 06:29] LABS: AMPHETAMINES LEVEL URINE POSITIVE (NEGATIVE); CANNABINOIDS URINE POSITIVE (NEGATIVE); OPIATES URINE POSITIVE (NEGATIVE)
[2022-10-18 06:40] LABS: ETHYL ALCOHOL (ETHANOL) 0.003 % (0.000-0.010)
[2022-10-18 06:42] LABS: ACETAMINOPHEN LEVEL < 2.0 UG/ML (10.0-20.0); ALBUMIN 3.6 G/DL (3.2-5.2); ALKALINE PHOSPHATASE 61 U/L (46-116); ALT/SGPT 64 U/L (7.0-40); AST/SGOT 51 U/L (<34); BILIRUBIN,DIRECT 0.2 MG/DL (<0.4); BILIRUBIN,TOTAL 0.8 MG/DL (0.3-1.2); BLOOD UREA NITROGEN 10 MG/DL (9-23); CALCIUM LEVEL 9.6 MG/DL (8.5-10.1); CARBON DIOXIDE LEVEL 26 MMOL/L (20-31); CHLORIDE LEVEL 104 MMOL/L (98-107); CREATININE FOR GFR 0.77 MG/DL (0.70-1.30); GLOMERULAR FILTRATION RATE > 60.0 (>60); GLUCOSE, FASTING 87 MG/DL (60-100); POTASSIUM SERUM 3.6 MMOL/L (3.5-5.1); SALICYLATE LEVEL < 3.0 MG/DL (<30); SODIUM LEVEL 137 MMOL/L (136-145); TOTAL PROTEIN 7.2 G/DL (5.7-8.2)
[2022-10-18 06:45] LABS: THYROID STIMULATING HORMONE 4.174 uIU/ML (0.55-4.78)
[2022-10-18 07:21] VITALS: BP 120/76
== END 2022-10-18 07:24 | disposition home or self-care (01) ==
LOC: M ED 04:09
DX: F19.150 Other psychoactive substance abuse with psychoactive substance-induced psychotic disorder with delusions (principal); F20.9 Schizophrenia, unspecified; R45.850 Homicidal ideations; Z79.83 Long term (current) use of bisphosphonates

== ENCOUNTER 2022-10-21 21:54 | Inpatient (IN) | payer OTHER ==
[~2022-10-21] VITALS: Ht 182.9 cm; Wt 65.9 kg
[2022-10-21] MEDS ORDERED: MIDAZOLAM INJ 2MG/2ML VIAL IV ONE (22:00)
[2022-10-21] MEDS ORDERED: NS 1,000 ML IV SCH (22:05)
[2022-10-21 22:26] LABS: BASO % 0.3 % (0.0-1.0); EOS % 0.3 % (0.0-3.0); HEMATOCRIT 44.5 % (42.0-52.0); HEMOGLOBIN 14.4 g/dl (13.5-17.5); LYMPH # 4.3 10^3/uL (1.5-5.0); LYMPH % 35.9 % (24.0-44.0); MEAN CORPUSCULAR HEMOGLOBIN 29.1 pg (27.0-33.0); MEAN CORPUSCULAR HGB CONC 32.4 g/dl (32.0-36.5); MEAN CORPUSCULAR VOLUME 89.9 fl (80.0-96.0); MONO # 1.3 10^3/uL (0.0-0.8); MONO % 10.6 % (2.0-8.0); NEUTROPHILS # 6.3 10^3/uL (1.5-8.5); NEUTROPHILS % 52.6 % (36.0-66.0); PLATELET COUNT, AUTOMATED 340 10^3/uL (150-450); RED BLOOD COUNT 4.95 10^6/uL (4.30-6.10)
[2022-10-21 22:50] LABS: ACETAMINOPHEN LEVEL < 2.0 UG/ML (10.0-20.0)
[2022-10-21 22:51] LABS: ALBUMIN 3.8 G/DL (3.2-5.2); ALKALINE PHOSPHATASE 62 U/L (46-116); ALT/SGPT 62 U/L (7.0-40); AST/SGOT 45 U/L (<34); BILIRUBIN,DIRECT 0.1 MG/DL (<0.4); BILIRUBIN,TOTAL 0.5 MG/DL (0.3-1.2); BLOOD UREA NITROGEN 12 MG/DL (9-23); CALCIUM LEVEL 9.5 MG/DL (8.5-10.1); CARBON DIOXIDE LEVEL 28 MMOL/L (20-31); CHLORIDE LEVEL 103 MMOL/L (98-107); GLOMERULAR FILTRATION RATE > 60.0 (>60); GLUCOSE, FASTING 90 MG/DL (60-100); POTASSIUM SERUM 3.9 MMOL/L (3.5-5.1); SALICYLATE LEVEL < 3.0 MG/DL (<30); SODIUM LEVEL 140 MMOL/L (136-145); TOTAL PROTEIN 7.4 G/DL (5.7-8.2)
[2022-10-21 22:53] LABS: THYROID STIMULATING HORMONE 0.325 uIU/ML (0.55-4.78)
[2022-10-21 23:02] LABS: CPK CREATINE PHOSPHOKINASE 350 U/L (46-171); ETHYL ALCOHOL (ETHANOL) 0.321 % (0.000-0.010)
[2022-10-21] MEDS ORDERED: LORazepam 2 MG/ML VIAL IV STA ×2 (23:24→23:47)
[2022-10-21] MEDS ORDERED: LORazepam 2 MG/ML VIAL IM STA (23:24)
[2022-10-21] MEDS ORDERED: LORazepam 2 MG/ML VIAL As Ordered ONE (23:25)
[2022-10-21 23:49] LABS: HEPATITIS B SURFACE ANTIGEN NEGATIVE (NEGATIVE)
[2022-10-22] VITALS (37 sets, daily range): BP systolic 107–137; BP diastolic 65–85
[2022-10-22 00:02] LABS: HIV SCREEN CENTAUR SOURCE NEGATIVE (NEGATIVE)
[2022-10-22] MEDS ORDERED: propofoL 1,000 MG in IV 1 EA IV SCH (00:25)
[2022-10-22] MEDS ORDERED: ROCURONIUM BROMIDE 50MG/5ML VIAL IV PRN (00:25)
[2022-10-22] MEDS ORDERED: ROCURONIUM BROMIDE 50MG/5ML VIAL IV ONE (00:25)
[2022-10-22] MEDS ORDERED: ETOMIDATE INJ 20MG/10ML VIAL IV ONE (00:25)
[2022-10-22] MEDS ORDERED: PROPOFOL 1,000 MG/100 ML VIAL As Ordered ONE (00:33)
[2022-10-22 00:42] LABS: HEPATITIS C VIRUS ABY INDEX > 11.0 INDEX (<0.8)
[2022-10-22] MEDS ORDERED: PANTOPRAZOLE 40MG VIAL IV ONE (00:45)
[2022-10-22] MEDS ORDERED: PANTOPRAZOLE SODIUM 40 MG in D5W MINI-BAG PLUS 50 ML IV SCH (01:00)
[2022-10-22 01:17] LABS: RSV AMPLIFICATION NEGATIVE (NEGATIVE)
[2022-10-22 01:35] LABS: INR 0.91; PROTHROMBIN TIME 12.5 SECONDS (12.5-14.5)
[2022-10-22 01:36] LABS: PARTIAL THROMBOPLASTIN TIME 25.2 SECONDS (24.8-34.2)
[2022-10-22 01:37] LABS: AMPHETAMINES LEVEL URINE NEGATIVE (NEGATIVE); BARBITURATES URINE NEGATIVE (NEGATIVE); COCAINE METABOLITE URINE NEGATIVE (NEGATIVE); METHADONE URINE NEGATIVE (NEGATIVE); OPIATES URINE NEGATIVE (NEGATIVE)
[2022-10-22 01:38] LABS: PHENCYCLIDINE URINE NEGATIVE (NEGATIVE)
[2022-10-22 01:41] LABS: BENZODIAZEPINES URINE POSITIVE (NEGATIVE); CANNABINOIDS URINE POSITIVE (NEGATIVE)
[2022-10-22 02:43] LABS: HEMATOCRIT 44.3 % (42.0-52.0); HEMOGLOBIN 14.7 g/dl (13.5-17.5)
[2022-10-22] MEDS ORDERED: LR 1,000 ML IV SCH (04:25)
[2022-10-22] MEDS: propofoL 1,000 MG in IV 1 EA IV SCH ×5 (05:12→19:36)
[2022-10-22] MEDS ORDERED: THIAMINE 200MG 2ML VIAL IM ONE (05:15)
[2022-10-22 05:29] LABS: HEMATOCRIT 45.2 % (42.0-52.0); HEMOGLOBIN 14.8 g/dl (13.5-17.5)
[2022-10-22 05:57] LABS: ABG BASE EXCESS 0.4 (-2.0-2.0); ABG HCO3 25.9 MEQ/L (22.0-26.0); ABG O2 SATURATION 99.3 % (95.0-99.0); ABG PARTIAL PRESSURE CO2 44.7 mmHg (35.0-45.0); ABG PARTIAL PRESSURE O2 188.7 mmHg (75.0-100.0); ABG STANDARD HCO3 24.9 MEQ/L (22.0-26.0); ABG TOTAL CO2 27.3 MEQ/L (22.0-29.0); ABG pH (ARTERIAL) 7.381 UNITS (7.350-7.450)
[2022-10-22 06:00] LABS: BLOOD UREA NITROGEN 10 MG/DL (9-23); CALCIUM LEVEL 9.1 MG/DL (8.5-10.1); CARBON DIOXIDE LEVEL 24 MMOL/L (20-31); CHLORIDE LEVEL 105 MMOL/L (98-107); CREATININE FOR GFR 0.63 MG/DL (0.70-1.30); GLOMERULAR FILTRATION RATE > 60.0 (>60); GLUCOSE, FASTING 96 MG/DL (60-100); PHOSPHORUS LEVEL 3.2 MG/DL (2.5-4.9); POTASSIUM SERUM 3.5 MMOL/L (3.5-5.1); SODIUM LEVEL 144 MMOL/L (136-145)
[2022-10-22] MEDS: PANTOPRAZOLE SODIUM 40 MG in D5W 50 ML IV SCH ×4 (06:00→20:15)
[2022-10-22] MEDS ORDERED: HOME MED LIST COMPLETE! XX SCH (06:10)
[2022-10-22] MEDS: CHLORHEXIDINE GLUCONATE 0.12 % 15ML UDC (PERIDEX ORAL RINSE) MT SCH ×2 (08:33→20:42)
[2022-10-22] MEDS: MIDAZOLAM INJ 2MG/2ML VIAL IV PRN ×8 (08:33→22:20)
[2022-10-22] MEDS: D5W/0.9% SODIUM CHLORIDE 1,000 ML IV SCH ×2 (09:43→19:35)
[2022-10-22 11:50] LABS: HEMATOCRIT 43.7 % (42.0-52.0)
[2022-10-22 18:17] LABS: HEMATOCRIT 44.8 % (42.0-52.0); HEMOGLOBIN 14.5 g/dl (13.5-17.5)
[2022-10-22] MEDS ORDERED: ACETAMINOPHEN 1000MG 100ML IV BAG IV ONE (19:55)
[2022-10-22] MEDS: PIPERACILLIN/TAZOBACTAM SOD 3.375 GM in D5W MINI-BAG PLUS 50 ML IV SCH (20:42)
[2022-10-23] VITALS (26 sets, daily range): BP systolic 102–141; BP diastolic 55–95
[2022-10-23] MEDS ORDERED: ACETAMINOPHEN 650MG SUPP PR ONE (00:15)
[2022-10-23] MEDS: propofoL 1,000 MG in IV 1 EA IV SCH ×3 (00:44→06:53)
[2022-10-23] MEDS: MIDAZOLAM INJ 2MG/2ML VIAL IV PRN ×2 (00:44→04:15)
[2022-10-23] MEDS: PANTOPRAZOLE SODIUM 40 MG in D5W 50 ML IV SCH ×2 (01:40→05:58)
[2022-10-23] MEDS: PIPERACILLIN/TAZOBACTAM SOD 3.375 GM in D5W MINI-BAG PLUS 50 ML IV SCH ×4 (03:07→20:42)
[2022-10-23 05:05] LABS: HEMATOCRIT 43.2 % (42.0-52.0); HEMOGLOBIN 13.8 g/dl (13.5-17.5); MEAN CORPUSCULAR HEMOGLOBIN 29.2 pg (27.0-33.0); MEAN CORPUSCULAR HGB CONC 31.9 g/dl (32.0-36.5); MEAN CORPUSCULAR VOLUME 91.5 fl (80.0-96.0); PLATELET COUNT, AUTOMATED 283 10^3/uL (150-450); RED BLOOD COUNT 4.72 10^6/uL (4.30-6.10); WHITE BLOOD COUNT 23.3 10^3/uL (4.0-10.0)
[2022-10-23] MEDS: D5W/0.9% SODIUM CHLORIDE 1,000 ML IV SCH (05:45)
[2022-10-23 05:48] LABS: ABG BASE EXCESS 2.5 (-2.0-2.0); ABG HCO3 27.9 MEQ/L (22.0-26.0); ABG O2 SATURATION 97.2 % (95.0-99.0); ABG PARTIAL PRESSURE CO2 45.9 mmHg (35.0-45.0); ABG PARTIAL PRESSURE O2 91.8 mmHg (75.0-100.0); ABG STANDARD HCO3 26.7 MEQ/L (22.0-26.0); ABG TOTAL CO2 29.3 MEQ/L (22.0-29.0); ABG pH (ARTERIAL) 7.402 UNITS (7.350-7.450)
[2022-10-23 05:49] LABS: ALBUMIN 3.1 G/DL (3.2-5.2); ALKALINE PHOSPHATASE 56 U/L (46-116); ALT/SGPT 48 U/L (7.0-40); AST/SGOT 42 U/L (<34); BILIRUBIN,TOTAL 0.8 MG/DL (0.3-1.2); BLOOD UREA NITROGEN 12 MG/DL (9-23); CALCIUM LEVEL 8.7 MG/DL (8.5-10.1); CARBON DIOXIDE LEVEL 28 MMOL/L (20-31); CHLORIDE LEVEL 106 MMOL/L (98-107); CPK CREATINE PHOSPHOKINASE 759 U/L (46-171); CREATININE FOR GFR 0.76 MG/DL (0.70-1.30); GLOMERULAR FILTRATION RATE > 60.0 (>60); GLUCOSE, FASTING 124 MG/DL (60-100); POTASSIUM SERUM 3.6 MMOL/L (3.5-5.1); SODIUM LEVEL 141 MMOL/L (136-145); TOTAL PROTEIN 6.3 G/DL (5.7-8.2)
[2022-10-23] MEDS: CHLORHEXIDINE GLUCONATE 0.12 % 15ML UDC (PERIDEX ORAL RINSE) MT SCH ×2 (09:00→20:24)
[2022-10-23] MEDS: THIAMINE 200MG 2ML VIAL IM SCH (10:46)
[2022-10-23] MEDS ORDERED: PANTOPRAZOLE 40MG VIAL IV SCH (21:00)
[2022-10-24] VITALS: BP 105/60
[2022-10-24] MEDS: PIPERACILLIN/TAZOBACTAM SOD 3.375 GM in D5W MINI-BAG PLUS 50 ML IV SCH ×2 (02:06→08:46)
[2022-10-24 04:00] VITALS: BP 99/63
[2022-10-24 05:42] LABS: BASO % 0.2 % (0.0-1.0); EOS # 0.1 10^3/uL (0.0-0.5); EOS % 0.5 % (0.0-3.0); HEMATOCRIT 37.8 % (42.0-52.0); HEMOGLOBIN 11.9 g/dl (13.5-17.5); LYMPH # 2.8 10^3/uL (1.5-5.0); LYMPH % 18.7 % (24.0-44.0); MEAN CORPUSCULAR HEMOGLOBIN 28.7 pg (27.0-33.0); MEAN CORPUSCULAR HGB CONC 31.5 g/dl (32.0-36.5); MEAN CORPUSCULAR VOLUME 91.3 fl (80.0-96.0); MONO # 1.3 10^3/uL (0.0-0.8); MONO % 8.6 % (2.0-8.0); NEUTROPHILS # 10.5 10^3/uL (1.5-8.5); NEUTROPHILS % 71.7 % (36.0-66.0); PLATELET COUNT, AUTOMATED 260 10^3/uL (150-450); RED BLOOD COUNT 4.14 10^6/uL (4.30-6.10); WHITE BLOOD COUNT 14.7 10^3/uL (4.0-10.0)
[2022-10-24 06:19] LABS: ALBUMIN 2.8 G/DL (3.2-5.2); ALKALINE PHOSPHATASE 52 U/L (46-116); ALT/SGPT 40 U/L (7.0-40); AST/SGOT 42 U/L (<34); BILIRUBIN,TOTAL 0.7 MG/DL (0.3-1.2); BLOOD UREA NITROGEN 16 MG/DL (9-23); CALCIUM LEVEL 8.7 MG/DL (8.5-10.1); CARBON DIOXIDE LEVEL 23 MMOL/L (20-31); CHLORIDE LEVEL 107 MMOL/L (98-107); CREATININE FOR GFR 0.81 MG/DL (0.70-1.30); GLOMERULAR FILTRATION RATE > 60.0 (>60); GLUCOSE, FASTING 120 MG/DL (60-100); POTASSIUM SERUM 3.8 MMOL/L (3.5-5.1); SODIUM LEVEL 141 MMOL/L (136-145); TOTAL PROTEIN 5.8 G/DL (5.7-8.2)
[2022-10-24 08:00] VITALS: BP 111/70
[2022-10-24] MEDS: THIAMINE 200MG 2ML VIAL IM SCH (08:45)
[2022-10-24] MEDS ORDERED: ACETAMINOPHEN TAB 650MG DOSE (2X325MG) PO PRN (08:55)
[2022-10-24] MEDS ORDERED: PANTOPRAZOLE 40MG TAB (PROTONIX) PO SCH (09:00)
[2022-10-24] MEDS ORDERED: AUGMENTIN 500MG TAB PO SCH (09:00)
[2022-10-24] MEDS ORDERED: AMOX875T2 PO (10:28)
[2022-10-24] MEDS ORDERED: SUCR1TA PO (10:28)
[2022-10-24] MEDS ORDERED: PROT1TAB2 PO (10:28)
[2022-10-28 14:07] LABS: CK 1 (BB) 0 % (0); CK 2 (MB) 0 % (0-3); CK 3 (MM) 100 % (97-100); CK MACRO I PERCENT 0 % (Not Observed); CK MACRO II PERCENT 0 % (Not Observed); CK TOTAL 922 U/L (49-439)
== END 2022-10-24 12:16 | disposition home or self-care (01) | DRG 775 ==
LOC: M ED 21:54 → M ED INP 10-22 04:22 → M ICU 10-22 04:50
PROVIDERS: ADMIT Internal Medicine; ATTEND Internal Medicine
PROC: 0BH17EZ Insertion of Endotracheal Airway into Trachea, Via Natural or Artificial Opening (ICD-10-PCS; principal; 2022-10-22)
PROC: 5A1945Z Respiratory Ventilation, 24-96 Consecutive Hours (ICD-10-PCS; 2022-10-22)
PROC: 0W3P8ZZ Control Bleeding in Gastrointestinal Tract, Via Natural or Artificial Opening Endoscopic (ICD-10-PCS; 2022-10-22)
DX: F10.129 Alcohol abuse with intoxication, unspecified (principal); J96.01 Acute respiratory failure with hypoxia; J69.0 Pneumonitis due to inhalation of food and vomit; G93.40 Encephalopathy, unspecified; K25.4 Chronic or unspecified gastric ulcer with hemorrhage; K29.21 Alcoholic gastritis with bleeding; F20.9 Schizophrenia, unspecified; Z78.1 Physical restraint status; R74.01 Elevation of levels of liver transaminase levels; Z20.822 Contact with and (suspected) exposure to COVID-19; Z91.048 Other nonmedicinal substance allergy status; B19.20 Unspecified viral hepatitis C without hepatic coma